=== PATIENT | male | born 1940 | race Caucasian/White ===

== ENCOUNTER 2019-08-23 15:33 | Emergency (ER) | payer MEDICARE, SELFPAY ==
[2019-08-23 15:34] VITALS: BP 155/84; PULSE 82; RESP 16; TEMP 36.3; O2SAT 99; BMI 23.8
--- NOTE | 2019-08-23 15:42 | ED.DCSUM_ITS ---
- ER Visit Summary Date of Service: 08/23/19 Chief Complaint: Dizziness History of Present Illness: The patient is a 78 M who presents with an episode of dizziness that began yesterday while he was watching TV. Patient states he felt like things were spinning. Patient states this lasted approximately 20 m inutes until he went to bed. Patient states he woke up today and his symptoms were gone. Patient denies any tinnitus or hearing changes. Patient denies any ear pain. Patient admits to a subjective fever but when his took his temperature it was normal. Patient denies any headaches. Patient states nothing makes his dizziness better or worse. Physical Examination: Vital signs are stable. Patient is afebrile. Patient is in no acute distress. Oral mucosa is pink and moist. Neck is supple. Trachea is midline. There is no JVD noted. Heart was regular rate and rhythm. Lungs are clear and equal bilaterally. Abdomen is soft. Bowel sounds are normal. There is no tenderness. There is no rebound or guarding noted. Skin is warm dry. Cranial nerves II through XII are intact. There are no focal motor or sensory deficits noted. [id number] and [id number] were intact. Patient ambulated without difficulty. Extremities are intact. There is no calf t enderness or edema. Emergency Department Course and Treatment: Patient was given a prescription for Antivert to take as needed for any further dizziness. I do not feel the patient needs any imaging or lab evaluation since he is asymptomatic at the present time. Patient does not want any of this to be done. Patient was instructed to follow-up with his primary care physician in 1 to 2 weeks. Patient understood and was agreeable with the plan. All questions were answered. Disposition: Discharge home Impression: Vertigo This note was generated with [employer]ue[employer] dictation software. It may contain incorrect words, spelling, and punctuation that were not noted in review of the chart prior to signing ED Disposition - Plan for ED Patient: Disposition: Home or Assisted Living Diagnosis: Vertigo Instructions: VERTIGO, Unspecified Prescriptions: Meclizine HCl [Antivert] 25 mg PO 4X/DAY PRN PRN #20 tab PRN Reason: Dizziness Prescription Printed Referrals: Lizeth Saini PA [Primary Care Provider] - 1-2 Weeks
== END 2019-08-23 16:18 | disposition home or self-care (01) ==
PROVIDERS: Emergency Provider Emergency Medicine; Family Provider Physician Assistant; PCP Physician Assistant
DX: R42 Dizziness and giddiness (principal); M54.9 Dorsalgia, unspecified; M54.2 Cervicalgia; I25.10 Atherosclerotic heart disease of native coronary artery without angina pectoris; Z95.1 Presence of aortocoronary bypass graft; Z79.02 Long term (current) use of antithrombotics/antiplatelets; Z79.899 Other long term (current) drug therapy
CPT/HCPCS: 99283

== ENCOUNTER → 2020-12-10 08:11 | Outpatient (CLI) | payer MEDICARE, SELFPAY ==
--- NOTE | 2020-12-10 08:16 | RAD_ITS ---
STUDY: X-RAY - ESOPHAGUS (BARIUM SWALLOW) WITH FLUOROSCOPY REASON FOR EXAM: Male, 80 years old. DYSPHAGIA -- 11.15 mGy -- 14 IMAGES TECHNIQUE: 14 view(s) of the esophagus were obtained following swallowing of barium. FLUOROSCOPY TIME (if supplied): (28 seconds) minutes/seconds COMPARISON: None. FINDINGS: There is no demonstrated esophageal foreign body. There is no demonstrated stricture or mucosal abnormality. Normal gastroesophageal junction, without a demonstrated hiatal hernia. The patient ingested a 12 mm tablet of barium without any difficulty. Normal visualized aortic arch and descending thoracic aorta. Normal visualized pulmonary parenchyma. Normal visualized osseous structures of the thorax. RAD/Esophagus Dual Contrast IMPRESSION: Normal plain film x-ray examination (barium swallow) of the esophagus. Electronically Signed: Juan Valdivia MD at 11:13 EDT , Service support ,
== END ==
PROVIDERS: PCP Physician Assistant; Referring Provider Nurse Practitioner Adult Health; Visit Provider Nurse Practitioner Adult Health
DX: R13.10 Dysphagia, unspecified (principal)
CPT/HCPCS: 74221

== ENCOUNTER 2021-06-25 13:35 | Inpatient (IN) | payer MEDICARE, SELFPAY ==
[2021-06-25] VITALS (16 sets, daily range): BP systolic 133–171; BP diastolic 69–83; PULSE 56–85; RESP 14–20; TEMP 36.1–36.7; O2SAT 95–99; BMI 24.3; BMI 24.2
--- NOTE | 2021-06-25 14:25 | CT_ITS ---
EXAM: CT ANGIOGRAPHY HEAD AND NECK WITH INTRAVENOUS CONTRAST CLINICAL INDICATION: Neuro deficit, acute, stroke suspected TECHNIQUE: [facility] [place]/head and neck CT angiography protocol performed with intravenous contrast. This CT exam was performed using one or more of the following dose reduction techniques: automated exposure control, adjustment of the mA and/or kV according to patient size, and/or use of iterative reconstruction technique. This report was created using [employer] report generation technology. 3D and MIP reconstructed images were created and reviewed. Coronal and sagittal reformatted images were created and reviewed. CONTRAST: 100mL [id number] COMPARISON: None. FINDINGS: HEAD: RIGHT ANTERIOR CEREBRAL ARTERY: Unremarkable. No significant stenosis at the visualized segments. Anterior communicating artery is present. No aneurysm. RIGHT MIDDLE CEREBRAL ARTERY: Unremarkable. No significant stenosis at the visualized segments. No aneurysm. RIGHT POSTERIOR CEREBRAL ARTERY: Unremarkable. No occlusion or significant stenosis. No aneurysm. LEFT ANTERIOR CEREBRAL ARTERY: Unremarkable. No significant stenosis at the visualized segments. No aneurysm. LEFT MIDDLE CEREBRAL ARTERY: Unremarkable. No significant stenosis at the visualized segments. No aneurysm. LEFT POSTERIOR CEREBRAL ARTERY: origin. No occlusion or significant stenosis. No aneurysm. BASILAR ARTERY: Unremarkable. No significant stenosis. No aneurysm. GREAT VESSELS OF AORTIC ARCH: Atherosclerosis without significant stenosis. Normal anatomy, patent. OTHER VASCULATURE: No vascular malformation. NECK: RIGHT COMMON CAROTID ARTERY: Unremarkable. No significant stenosis. No dissection or occlusion. RIGHT INTERNAL CAROTID ARTERY: Calcific atherosclerosis. 40% stenosis. No dissection or occlusion. RIGHT EXTERNAL CAROTID ARTERY: Atherosclerosis with moderate stenosis. No occlusion. RIGHT VERTEBRAL ARTERY: Unremarkable. No significant stenosis. No dissection or occlusion. LEFT COMMON CAROTID ARTERY: Unremarkable. No significant stenosis. No dissection or occlusion. LEFT INTERNAL CAROTID ARTERY: Calcific atherosclerosis. 55% stenosis. No dissection or occlusion. LEFT EXTERNAL CAROTID ARTERY: Atherosclerosis with moderate stenosis. No occlusion. LEFT VERTEBRAL ARTERY: Unremarkable. No significant stenosis. No dissection or occlusion. LUNG APICES: Unremarkable as visualized. SOFT TISSUES: Right maxillary sinus mucosal retention cyst. OTHER FINDINGS: Degenerative changes of the cervical spine at multiple levels causing foraminal stenosis. CAROTID STENOSIS REFERENCE USING NASCET CRITERIA: % ICA stenosis = (1 - narrowest ICA diameter/diameter of distal cervical ICA) x 100. Mild - <50% stenosis. Moderate - 50-69% stenosis. Severe - 70-94% stenosis. Near occlusion - 95-99% stenosis. Occluded - 100% stenosis. IMPRESSION: No acute findings in the arteries of the head and neck. EXAM: CT HEAD WITHOUT INTRAVENOUS CONTRAST CLINICAL INDICATION: Neuro deficit, acute, stroke suspected TECHNIQUE: Multiple axial images were obtained of the head without intravenous contrast. This CT exam was performed using one or more of the following dose reduction techniques: automated exposure control, adjustment of the mA and/or kV according to patient size, and/or use of iterative reconstruction technique. This report was created using [employer] report [employer] technology. COMPARISON: None. FINDINGS: BRAIN AND EXTRA-AXIAL SPACES: Central parenchymal volume loss. White matter changes that are nonspecific but most commonly associated with chronic small vessel ischemic disease. No intra- or extra-axial hemorrhage. No intracranial mass or mass effect. Posterior fossa structures are unremarkable. Ventricles are appropriate for age. No hydrocephalus. Basal cisterns are patent. BONES/JOINTS: Unremarkable. No discrete lytic or blastic abnormalities. SINUSES: Unremarkable as visualized. Clear. MASTOID AIR CELLS: Unremarkable. Clear. ORBITS: Visualized globes, extraocular muscles, optic nerves and retrobulbar fat appear unremarkable. CT/STROKE CTA Head AND Neck W/Con IMPRESSION: No acute findings in the head/brain. N.B. : The above Results were Read Back by Mike Vargas MD (Brooks) to Reed Turner and understanding confirmed on 06/25/2021 16:13:43 (ET). Electronically Signed: Mike Vargas MD (Brooks) at 16:21 EDT , Service support ,
--- NOTE | 2021-06-25 14:25 | EKG12_ITS ---
Test Reason : WEAKNESS Blood Pressure : / mmHG Vent. Rate : 067 BPM Atrial Rate : 067 BPM P-R Int : 164 ms QRS Dur : 088 ms QT Int : 398 ms P-R-T Axes : 040 -16 005 degrees QTc Int : 420 ms Normal sinus rhythm Poor R wave progression Confirmed by CLEVE MEZA, JOHNNIE ([id number]), society editor ANAY ARANA ([id number]) on 06/27/2021 8:50:04 AM Referred By: MILO Confirmed By:JOHNNIE POON MD
--- NOTE | 2021-06-25 14:25 | RAD_ITS ---
STUDY: X-RAY CHEST REASON FOR EXAM: Male, 80 years old. day 11 of Covid symptoms. tested + last or thursday. Pt is concerned for ongoing weakness and diarrhea. TECHNIQUE: Single AP portable view of the chest. COMPARISON: Jun 04 2017 12:23pm FINDINGS: EKG leads project over the chest. Minimal scarring in the left lung base. No airspace consolidation. There is no demonstrated pleural abnormality. Normal size heart. Sternal wires and mediastinal surgical clips compatible with prior CABG. Normal mediastinum and rita. Normal visualized pulmonary arteries. Normal visualized aortic arch and descending thoracic aorta. Normal visualized thoracic spine. Normal visualized ribs, clavicles, and shoulders. There is no demonstrated abnormality of the visualized soft tissue structures of the upper abdomen. RAD/Chest 1 View IMPRESSION: Nonacute portable x-ray examination of the chest. Electronically Signed: Mike Vargas MD (Brooks) at 15:12 EDT , Service support ,
--- NOTE | 2021-06-25 14:27 | EDS_ITS ---
HPI History of Present Illness Chief Complaint: Weakness Detail of Chief Complaint: Dizziness unable to walk without assistance. Informant: patient and spouse/S.O. Onset/Context/Timing Onset: Today Timing: Continuous Quality and Location: Positive for Right Leg Parasthesia and Right Leg Weakness Current Severity: Moderate Maximum Severity: Moderate Associated Symptoms Associated Symptoms: Negative for Headache, Nausea, Vomiting and Chest Pain Narrative Narrative: 80-year-old male history of hypertension prior coronary disease and CABG, CT and prior vertigo. No history of stroke. States that ever since he has been up this morning he has been unable to walk without assistance. He is off balance. States his head feels funny. He denies any fall or head trauma. states is unable to ambulate without her helping him significantly. Says his right leg feels weak and numb. Said he went to bed last night and he felt fine around 9:00. Prior similar symptoms: No Recent Illness/Hospitalization: No PFSH PFSH Medical History Hypertension Myocardial infarct Vertigo Home Medications hydrocodone-acetaminophen 1 - 2 tab PO Q4H PRN PRN #8 tablet 06/04/17 [Rx Last Taken Unknown] clopidogrel 75 mg PO DAILY 08/23/19 [History Last Taken Unknown] gabapentin 300 mg PO DAILY 08/23/19 [History Last Taken Unknown] gabapentin 700 mg PO DAILY 08/23/19 [History Last Taken Unknown] isosorbide mononitrate 30 mg PO DAILY 08/23/19 [History Last Taken Unknown] meclizine 25 mg PO 4X/DAY PRN PRN #20 tab 08/23/19 [Rx Last Taken Unknown] metoprolol succinate 25 mg PO DAILY 08/23/19 [History Last Taken Unknown] simvastatin 20 mg PO DAILY 08/23/19 [History Last Taken Unknown] sucralfate 1 gm PO DAILY 08/23/19 [History Last Taken Unknown] Allergy/AdvReac Type Severity Reaction Status Date / Time Sulfa (Sulfonamide Allergy Unknown Verified 06/25/21 13:38 Antibiotics) Surgical History H/O right heart catheterization S/P CABG x 3 Stented coronary artery Social History Smoking Status: Former smoker ROS ROS ED ROS Narrative Denies recent illness other than some mild diarrhea. Review of Systems ROS Unobtainable: Denies due to encephalopathy Constitutional Constitutional ED: Denies chills or fever(s) Eyes Eyes: Denies change in vision ENT ENT ED: Denies ear pain Cardiovascular Cardiovascular: Denies chest pain Respiratory/Chest Respiratory/Chest: Denies cough or dyspnea Gastrointestinal Gastrointestinal: Reports diarrhea; Denies abdominal pain, nausea or vomiting Genitourinary Genitourinary ED: Denies dysuria Musculoskeletal Musculoskeletal: Denies myalgias Integumentary Denies rash Neurologic Neurologic: Reports paresthesias and weakness; Denies headache(s) Psychiatric Psychiatric: Denies depression Endocrine Endocrinology: Denies polyuria Hematologic/Lymphatic Hematologic/Lymphatic: Denies easy bruising Allergic/Immunologic Allergic/Immunologic ED: Denies urticaria EXAM Physical Exam Narrative Exam Narrative: 78-year-old male no acute distress vital signs stable afebrile. H EENT exam unremarkable. Moist extremities. Neck nontender no lymphadenopathy. Lungs clear to auscultation bilaterally. Heart regular rate and rhythm rate about 80 no murmur. Abdomen soft nontender normal bowel sounds no peritoneal signs. Extremities moves all 4 right lower extremity seems weaker than the left. He has trouble lifting off the bed but he can. His dorsi and pl elvira flexion is weaker than the left. He states that is new. Is equal symmetrical confidential secretary strength. Neurologically awake alert oriented. He has weakness in his right leg and decreased sensation. NIH score is 2. Const Vital Signs: 06/25/21 13:36 06/25/21 14:13 06/25/21 14:42 Temperature 96.9 F L Temperature Source Temporal Pulse Rate 85 81 Respiratory Rate 16 18 Respiratory Effort Normal Respiratory Pattern Normal Blood Pressure 157/83 H 138/77 H Blood Pressure Mean 107 97 Pulse Ox 99 98 96 Oxygen Delivery Method Room Air Room Air Room Air 06/25/21 14:53 06/25/21 14:55 Temperature Temperature Source Pulse Rate 68 68 Respiratory Rate 20 H 18 Respiratory Effort Respiratory Pattern Blood Pressure 139/76 H 146/72 H Blood Pressure Mean 97 96 Pulse Ox 98 96 Oxygen Delivery Method Room Air Room Air Positive well nourished and well developed; Negative for obese, cachectic, contractures or unkempt General Appearance ED: well developed and NAD; Negative for unkempt, cachectic or contractures Nutritional Appearance: Negative for cachectic or obese HEENT Reports moist mucous membranes atraumatic; Negative for trauma Eyes PERRL and EOMs intact bilaterally General Eye ED: Negative for pale conjunctiva or scleral icterus Neck no lymphadenopathy, supple and no JVD General: Negative for tenderness Chest Wall inspection of chest normal and palpation of chest normal Resp normal respiratory effort and clear to auscultation bilaterally Auscultation: Negative for rales, rhonchi, wheezes or diminished lung sounds Cardio no murmurs Rate: regular rate Rhythm: regular rhythm Heart Sounds: S1 normal and S2 normal GI normal to inspection, nondistended, normoactive bowel sounds, soft to palpation, non-tender, non-distended and no masses Inspection: Negative for abdominal distention Auscultation: normoactive bowel sounds Palpation: Negative for tender, guarding or rebound tenderness present Back/Spine no CVA tenderness Extremity Extremity Narrative: Weakness right leg. General Extremety ED: Negative for deformity or tenderness General Extremity: Negative for deformity Neuro oriented x3 Neuro Narrative: Right leg weakness. Subjective decreased sensation. NIH score of 2. Sensorium / Orientation: alert, oriented to person, oriented to place and oriented to time; Negative for orientation impaired, confused, lethargic or stuporous Speech: speech normal Gait (Neuro): Negative for normal gait Motor Exam: Negative for strength 5/5 throughout Psych mental status grossly normal Appearance: Negative for unkempt Mood & Affect: Negative for depressed or tearful Skin Lesions: no lesions Rashes: no rashes STROKE Vital Signs/Narrative: Vital Signs Temp Pulse Resp BP Pulse Ox 06/25/21 14:55 68 18 146/72 H 96 06/25/21 14:53 68 20 H 139/76 H 98 06/25/21 14:42 96 06/25/21 14:13 81 18 138/77 H 98 06/25/21 13:36 96.9 F L 85 16 157/83 H 99 MDM MDM MDM Narrative Medical decision making narrative: 80-year-old male off balance awoke with the symptoms this morning. He is at least 6-1/2 hours into this if not significantly longer. He says his right leg feels weak and numb. He will undergo stroke work-up. Repeat exam at 4:03 PM no change. Patient still has weakness in his right lower extremity. Nurses try to get him up walking he was too dizzy and was unable to do so. I did perform a Hallpike maneuver which would not change his symptoms. I do not think this is vertigo and that also would not explain his right leg weakness. Awaiting the CAT scan results and then I will get him admitted to the hospitalist. Lab Data Attestation: I reviewed the patient's lab results. Lab results narrative: CBC shows a white count 3.7. Hemoglobin 13. Platelet count is low at 74. PT/INR 13 and one PTT 29. Electrolytes show a gap of 3 BUN 1 3 creatinine 1.2. Troponin normal at 36. Glucose of 90. Labs: Laboratory Results - last 24 hr 06/25/21 06/25/21 06/25/21 14:21 14:21 14:50 WBC 3.7 L RBC 4.70 Hgb 13.7 Hct 42.3 MCV 90.0 MCH 29.1 MCHC 32.4 RDW Std Deviation 46.9 H RDW Coeff of Jaqueline 14.2 Plt Count 74 L MPV 12.4 H Immature Gran % (Auto) 0.800 Neut % (Auto) 56.3 Lymph % (Auto) 32.0 [place] % (Auto) 8.7 Eos % (Auto) 1.4 Baso % (Auto) 0.8 Absolute Neuts (auto) 2.1 Absolute Lymphs (auto) 1.18 Nucleated RBC % 0 Differential Comment SCANNED PT 13.0 INR 1.0 APTT 29.2 Sodium 140 Potassium 4.1 Chloride 109 H Carbon Dioxide 28.0 Anion Gap 3 L BUN 13 Creatinine 1.29 Estim Creat Clear Calc 42.71 Est GFR (MDRD) Af Amer 68 Est GFR (MDRD) Non-Af 57 L BUN/Creatinine Ratio 10.1 Glucose 90 Calcium 9.1 Troponin I High Sens 36 POC Glucose 06/25/21 14:50 WBC RBC Hgb Hct MCV MCH MCHC RDW Std Deviation RDW Coeff of Jaqueline Plt Count MPV Immature Gran % (Auto) Neut % (Auto) Lymph % (Auto) [place] % (Auto) Eos % (Auto) Baso % (Auto) Absolute Neuts (auto) Absolute Lymphs (auto) Nucleated RBC % Differential Comment PT INR APTT Sodium Potassium Chloride Carbon Dioxide Anion Gap BUN Creatinine Estim Creat Clear Calc Est GFR (MDRD) Af Amer Est GFR (MDRD) Non-Af BUN/Creatinine Ratio Glucose Calcium Troponin I High Sens POC Glucose 86 Radiography Diagnostic Testing: Clinical Impression(s) from Imaging Studies Chest X-Ray 06/25/21 14:25 IMPRESSION: Nonacute portable x-ray examination of the chest. Electronically Signed: Mike Vargas MD (Brooks) at 15:12 EDT , Service support , Chest x-ray portable one view interpreted by myself and radiologist shows no acute abnormality. Chronic changes. Normal cardiac silhouette mediastinum. CT of the brain without contrast showed no acute abnormality. CTA of the head and neck read by the radiologist showed no acute abnormality. Chronic left internal carotid artery stenosis of about 55%. Radiologist did call me with these readings. I have reviewed the films myself. Stroke Documentation Questions Stroke Team Activated: No Reviewed Inclusion/Exclusion criteria: Yes Was Patient considered for Endovascular Intervention?: No IV Alteplase (t-PA) Administered: No No contraindications for IV Alteplase (t-PA) administration.: No Alteplase (t-PA) risks, benefits, alternative discussed: No Not given: Patient refusal: No Discharge Plan Dx/Rx/DC Orders Clinical Impression: Acute CVA (cerebrovascular accident), Unable to ambulate, Right leg weakness, History of chronic hypertension Disposition Disposition: Acute Care Hospital [facility]
--- NOTE | 2021-06-25 14:41 | NURSING ---
per dr. hernandez no stroke team.
[2021-06-25] MEDS: 0.9% Normal Saline 1,000 ML 999 ML IV (14:53)
[2021-06-25 15:01] LABS: Bedside Glucose 86 mg/dL (70-110)
[2021-06-25 15:03] LABS: Absolute Lymphocyte Count 1.18 X10^3/uL (0.83-4.51); Absolute Neutrophil Count 2.1 X10^3/uL (2.0-7.7); Basophil# 0.03 X10^3/uL; Basophil% 0.8 % (0-1); Eosinophil# 0.05 X10^3/uL; Eosinophils% 1.4 % (0-5); Hematocrit 42.3 % (40-54); Hemoglobin 13.7 g/dL (13.0-16.5); Lymphocyte # 1.18 X10^3/ul (0.83-4.51); Mean Corp Hgb Conc 32.4 g/dL (32-36); Mean Corpuscular Hgb 29.1 pg (27.0-32.0); Mean Platelet Vol. 12.4 fl (6.2-12.0); Monocyte# 0.32 X10^3/uL; Monocyte% 8.7 % (0-10); NRBC Flagged by Analyzer 0 % (0-5); Neutrophil # 2.08 X10^3/uL (2.7-7.7); Neutrophil % 56.3 % (47-70); POSITIVE COUNT YES; Platelet Count 74 K/mm3 (150-450); RBC Distribution Width CV 14.2 % (11.6-14.6); RBC Distribution Width SD 46.9 fl (35.1-43.9); White Blood Count 3.7 K/mm3 (4.4-11.0)
[2021-06-25 15:04] LABS: Differential Indicated SCAN CRITERIA MET
[2021-06-25 15:09] LABS: Partial Thromboplast Time 29.2 Seconds (24.1-36.2)
[2021-06-25 15:14] LABS: Anion Gap 3 (5-15); BUN 13 mg/dL (7-18); BUN/Creat Ratio 10.1 RATIO (10-20); Calcium,Total 9.1 mg/dL (8.5-10.1); Chloride 109 mmol/L (98-107); Creatinine, Serum 1.29 mg/dL (0.70-1.30); EST Glomerular Filtration Rate 57 mL/min (>60); Est Glom Filt Rate - Afr Amer 68 mL/min (>60); Estimated Creatinine Clearance 42.71 ml/min; Glucose 90 mg/dL (74-106); Potassium 4.1 mmol/L (3.5-5.1); Sodium Level 140 mmol/L (136-145); Troponin-I HS 36 pg/mL (3.0-78.0)
[2021-06-25 15:50] LABS: Differential Comment SCANNED
--- NOTE | 2021-06-25 16:37 | PCM.HP.STD ---
HPI - General General Date of Admission: 06/25/21 Date of Service: 06/25/21 Chief Complaint: Awoke with dizziness, focal RLE weakness and paresthesias. HPI Narrative The patient is an 80 y/o M w/ PMHx: CAD s/p CABG x 3 and PCI, HTN, HLD, Former Tobacco use, GERD who presents to the [facility] ED on 06/25/21 with history of awakening on day of presentation in the AM with profound dizziness and upon attempts to stand severe RLE debility, unable to stand with last known well the evening prior at bedtime. was concerned about a potential stroke and eventually was able to bring the in for evaluation. Patient also reports RLE paresthesias in addition. Work-up in the ED included T 96.9, heart rate 85, initial BP 157/83, respiratory rate 18, 99% on room air, CBC with WBC 3.7, hemoglobin 13.7, platelet 74 with no comparison, unremarkable coags, BMP with quad 109 otherwise not marked appearing, troponin 36, EKG with sinus rhythm with no acute evidence of ischemia, chest x-ray with no acute cardiopulmonary findings, CT head with no acute intracranial findings, CTA head neck with only noted 55% stenosis of the left ICA. In the ED patient ministered IV fluids. [facility] Medical History (Updated 06/25/21 @ 20:[address] Trinh Thompson MD) CAD (coronary artery disease) Former tobacco use GERD (gastroesophageal reflux disease) HLD (hyperlipidemia) Hypertension Myocardial infarct Vertigo Home Medications clopidogrel 75 mg PO DAILY 08/23/19 [History Last Taken 06/25/21] isosorbide mononitrate 15 mg PO DAILY 08/23/19 [History Last Taken 06/25/21] metoprolol succinate 25 mg PO DAILY 08/23/19 [History Last Taken 06/25/21] cyclobenzaprine 5 mg PO QHS 06/25/21 [History Last Taken 06/24/21] gabapentin 400 mg PO BID 06/25/21 [History Last Taken 06/25/21] pantoprazole 20 mg PO BID 06/25/21 [History Last Taken 06/25/21] simvastatin 40 mg PO DAILY 06/25/21 [History Last Taken 06/24/21] trazodone 50 mg PO QHS 06/25/21 [History Last Taken 06/24/21] Allergy/AdvReac Type Severity Reaction Status Date / Time Sulfa (Sulfonamide Allergy Unknown Verified 06/25/21 13:38 Antibiotics) Family History (Updated 06/25/21 @ 21:[address] Trinh Thompson MD) Mother Heart disease Father Heart disease Surgical History (Updated 06/25/21 @ 20:[address] Trinh Thompson MD) H/O right heart catheterization S/p bilateral carpal tunnel release S/P bilateral cataract extraction S/P bilateral foot surgery S/P CABG x 3 S/P tonsillectomy and adenoidectomy Status post arthroscopic knee surgery Stented coronary artery Social History (Updated 06/25/21 @ 21:[address] Trinh Thompson MD) household members: spouse Smoking Status: Former smoker how long ago did patient quit smoking: Quit when he was 44 y/o, 1/2 ppd since 10 years old. alcohol intake: never substance use type: does not use ROS ROS Narrative Admission Review of Systems: CONSTITUTIONAL: No weight loss, fever, chills, weakness or fatigue. HEENT: + Dizziness. Eyes: No visual loss, blurred vision, double vision or yellow sclerae. Ears, Nose, Throat: No hearing loss, sneezing, congestion, runny nose or sore throat. SKIN: No rash or itching, lesions, wounds. CARDIOVASCULAR: No chest pain, chest pressure or chest discomfort, palpitations, edema, orthopnea, syncopal events. RESPIRATORY: No shortness of breath, cough or sputum, wheezing, hemoptysis. GASTROINTESTINAL: No anorexia, nausea, vomiting or diarrhea, abdominal pain, melena, BRBPR. GENITOURINARY: No dysuria, frequency, urgency or retention. NEUROLOGICAL: + Dizziness, focal right lower extremity weakness with paresthesias, imbalance. No headache, syncope, paralysis,change in bowel or bladder control, seizure. MUSCULOSKELETAL: + muscle, back pain, joint pain or stiffness. HEMATOLOGIC: No anemia, bleeding or bruising. LYMPHATICS: No enlarged nodes. No history of splenectomy. PSYCHIATRIC: No history of depression or anxiety. ENDOCRINOLOGIC: No reports of sweating, cold or heat intolerance. No polyuria or polydipsia. ALLERGIES: No history of asthma, hives, eczema or rhinitis. Vital Signs Vital Signs Vital Signs: 06/25/21 13:36 06/25/21 14:13 06/25/21 14:42 Temperature 96.9 F L Temperature Source Temporal Pulse Rate 85 81 Respiratory Rate 16 18 Respiratory Effort Normal Respiratory Pattern Normal Blood Pressure 157/83 H 138/77 H Blood Pressure Mean 107 97 Pulse Ox 99 98 96 Oxygen Delivery Method Room Air Room Air Room Air 06/25/21 14:53 06/25/21 14:55 06/25/21 15:30 Temperature Temperature Source Pulse Rate 68 68 65 Respiratory Rate 20 H 18 16 Respiratory Effort Respiratory Pattern Blood Pressure 139/76 H 146/72 H 133/72 H Blood Pressure Mean 97 96 92 Pulse Ox 98 96 98 Oxygen Delivery Method Room Air Room Air Room Air Weight Weight: 160 lb Body Mass Index (BMI) 24.3 Physical Exam Narrative Physical Examination: General: Awake, alert, oriented x 3, hard of hearing, remains cooperative, seated upright in the ED bed, NAD. Skin: Normal color, normal turgor, no icterus, no cyanosis. HEENT: AT/NC, EOMI, PERRLA, mildly dry MM, no carotid bruits or JVD noted. Lungs: Diminished, greater bases, appropriate effort, no rales, ronchi or wheezing. Heart: Regular rate and rhythm; no gallop, rub audible. Abdomen: Soft, NTTP, ND, normal BS, no HSM. Extremities: No cyanosis, clubbing, or edema. Neurological: Patient awake, alert, oriented as noted, cognitive function appears and per baseline intact; pupils equally reactive to light and accommodation, cranial nerves II-XII grossly normal, moving bilateral upper extremities and left lower extremity, unable to move right lower extremity, falls flaccid to the bed with evaluation, has nearly myoclonic pull, sensation decreased RLE, unable to stand without assist, BL UE mild dysmetria however improves with distraction, unable to perform HTN RLE, L intact, equivocal babinski. Psychiatric: Affect appears normal, no acute evidence of depressive or anxiety feelings. Results Lab / Micro Data Result Diagrams: 06/25/21 14:21 06/25/21 14:21 Labs: Laboratory Results - last 24 hr 06/25/21 14:21: WBC 3.7 L, RBC 4.70, Hgb 13.7, Hct 42.3, MCV 90.0, MCH 29.1, MCHC 32.4, RDW Std Deviation 46.9 H, RDW Coeff of Jaqueline 14.2, Plt Count 74 L, MPV 12.4 H, Immature Gran % (Auto) 0.800, Neut % (Auto) 56.3, Lymph % (Auto) 32.0, [place] % (Auto) 8.7, Eos % (Auto) 1.4, Baso % (Auto) 0.8, Absolute Neuts (auto) 2.1, Absolute Lymphs (auto) 1.18, Nucleated RBC % 0, Differential Comment SCANNED 06/25/21 14:21: Sodium 140, Potassium 4.1, Chloride 109 H, Carbon Dioxide 28.0, Anion Gap 3 L, BUN 13, Creatinine 1.29, Estim Creat Clear Calc 42.71, Est GFR (MDRD) Af Amer 68, Est GFR (MDRD) Non-Af 57 L, BUN/Creatinine Ratio 10.1, Glucose 90, Calcium 9.1, Troponin I High Sens 36 06/25/21 14:50: PT 13.0, INR 1.0, APTT 29.2 06/25/21 14:50: POC Glucose 86 Radiology Impression Chest X-Ray 06/25/21 14:25 IMPRESSION: Nonacute portable x-ray examination of the chest. Electronically Signed: Mike Vargas MD (Brooks) at 15:12 EDT , Service support , Head/Neck CTA 06/25/21 14:25 IMPRESSION: No acute findings in the head/brain. N.B. : The above Results were Read Back by Mike Vargas MD (Brooks) to Reed Turner and understanding confirmed on 06/25/2021 16:13:43 (ET). Electronically Signed: Mike Vargas MD (Brooks) at 16:21 EDT , Service support , ADDENDUM: 06/25/21 1628 IMPRESSION: No acute findings in the head/brain. N.B. : The above Results were Read Back by Mike Vargas MD (Brooks) to Reed Turner and understanding confirmed on 06/25/2021 16:13:43 (ET). Electronically Signed: Mike Vargas MD (Brooks) at 16:21 EDT , Service support , Assessment & Plan Assessment/Plan (1) Acute CVA (cerebrovascular accident): PLAN: The patient is an 80 y/o M w/ PMHx: CAD s/p CABG x 3 and PCI, HTN, HLD, Former Tobacco use, GERD who presents to the [facility] ED on 06/25/21 with history of awakening on day of presentation in the AM with profound dizziness and upon attempts to stand severe RLE debility, unable to stand with last known well the evening prior at bedtime. 1. Dizziness, RLE focal weakness concerning for CVA: Will admit to PCU, will obtain MRI Brain, ECHO, PT/OT/Speech/Nutrition evaluation per protocol. Will plan to consult Neurology for evaluation once further stroke work-up is obtained. Given L ICA reported 55% stenosis will obtain follow-up carotid US. Will allow permissive HTN, maintain on asa and plavix, continue home statin w/ AM FLP, fall precautions. Mag, TSH, HgbA1c, FLP. 2. Thrombocytopenia, unclear if acute or chronic: Admission platelets 74, will cautiously continue aspirin and Plavix given acute presentation as noted #1, if any decrease will need to rethink dual antiplatelet usage for #1, additionally will maintain on Lovenox for chemoprophylaxis but hold if any decrease on a.m. repeat labs. 3. CAD: Status post CABG x3 and PCI, will continue aspirin, Plavix, holding metoprolol, continue statin therapy as noted. 4. Hypertension: We will maintain on permissive hypertension given acute presentation as noted #1. 5. Hyperlipidemia: Continue home statin regimen. AM FLP. 6. Tobacco Abuse: Encouraged cessation, inpatient consultation per RT, NR if desired. 7. GERD: We will maintain on PPI. 8. DVT prophylaxis: SCDs, Lovenox cautiously given #2. Low threshold to hold if decreased level in AM. 9. CODE status: Patient does not have any healthcare power of deputy attorney general nor living will. Discussed CODE status at length including difference between FULL code, DNR-CCA and DNR-CC status. Following discussions about the differences in these status, requested Full Code status. Advanced Care Planning Face to Face Time: 16 minutes. Charges/Coding Visit Charges Inpatient E&M: 18961 Init Hosp L3 Procedures Hospitalists Procedures: 51737 Advncd Care Plan 30 Min
--- NOTE | 2021-06-25 17:58 | ECHOD_ITS ---
Reason For Study: CVA Procedure This was a 2D Doppler, Color Flow transthoracic echocardiogram. Bubble study performed. Exam performed portable in patient room. Left Ventricle Normal LV size. Apical false tendon noted. Left ventricular systolic function is normal. The estimated ejection fraction is 65 %. Transmitral diastolic flow velocities suggest moderate (stage 2) diastolic dysfunction (pseudonormal pattern). No regional wall motion abnormalities noted. Right Ventricle Normal RV size. Normal systolic function. Atria The left atrium is moderately enlarged. Normal right atrium. No doppler evidence for ASD. Bubble contrast study negative for right to left interatrial shunt. Mitral Valve There is mild mitral annular calcification. Extension of the mitral annular calcification onto the base of the posterior mitral valve leaflet. Mild (1+) mitral valve insufficiency. Tricuspid Valve Normal tricuspid valve. Mild tricuspid valve insufficiency. Right ventricular systolic pressure estimated to be 36 mmHg. Aortic Valve Trisinus/trileaflet aortic valve. Mild focal aortic valve calcification. Trivial aortic valve insufficiency. Pulmonic Valve The pulmonic valve is not well visualized. Trivial pulmonic valve insufficiency. Great Vessels The aortic root is not well visualized. Pericardium/Pleural No pericardial effusion. Medication Performed a rapid injection of agitated mix of 9 cc saline and 1cc air to assess for atrial septal defect. MMode/2D Measurements & Calculations LVIDd: 4.1 cm IVSd: 1.4 cm LA dimension: 4.8 cm LVIDs: 2.6 cm LVPWd: 1.2 cm FS: 36.9 % LAV(MOD-bp): 66.6 ml LA A4 area: 22.3 cm2 RA A4 area: 15.7 cm2 LAV(MOD-bp) Indexed: 36.4 ml/m2 LAV(MOD-sp2): 56.3 ml LAV(MOD-sp4): 70.4 ml Time Measurements MV dec time: 0.18 sec Doppler Measurements & Calculations MV E max tariq: 115.9 cm/sec Lat Peak E' Tariq: 7.4 cm/sec Med Peak E' Tariq: 5.4 cm/sec MV A max tariq: 92.9 cm/sec E/E' lat: 15.8 E/E' med: 21.6 MV E/A: 1.2 MV V2 max: 115.2 cm/sec MV P1/2t max tariq: 115.2 cm/sec Ao V2 max: 136.5 cm/sec MV max P.3 mmHg MV P1/2t: 92.0 msec Ao max P.5 mmHg MV V2 mean: 63.9 cm/sec MV dec slope: 366.5 cm/sec2 MV mean P.9 mmHg MV V2 VTI: 33.5 cm MVA(P1/2t): 2.4 cm2 LV V1 max: 100.8 cm/sec PA V2 max: 101.3 cm/sec TR max tariq: 288.5 cm/sec LV V1 max P.1 mmHg TR max P.3 mmHg ECHO/Echo Complete Interpretation Summary Left ventricular systolic function is normal. The estimated ejection fraction is 65 %. Apical false tendon noted. The left atrium is moderately enlarged. There is mild mitral annular calcification. Extension of the mitral annular calcification onto the base of the posterior mi tral valve leaflet. Mild (1+) mitral valve insufficiency. Mild tricuspid valve insufficiency. Mild focal aortic valve calcification. Trivial aortic valve insufficiency. Trivial pulmonic valve insufficiency. Right ventricular systolic pressure estimated to be 36 mmHg. Transmitral diastolic flow velocities suggest diastolic dysfunction (pseudonorm al pattern). Bubble contrast study negative for right to left interatrial shunt. Ordering Physician: Trinh Thompson Referring Physician: Lizeth Saini Performed By: Leonidas Davis RCS
[2021-06-25] MEDS: 0.9% Normal Saline 1,000 ML 100 ML IV (18:42)
[2021-06-25 19:34] LABS: Magnesium 1.9 mg/dL (1.6-2.6); Troponin-I HS 46 pg/mL (3.0-78.0)
[2021-06-25] MEDS: Gabapentin 400 MG Capsule PO (21:29)
[2021-06-25] MEDS: traZODone 50 MG Tablet PO (21:29)
[2021-06-25] MEDS: Pantoprazole Sodium 20 MG Tablet PO (21:29)
[2021-06-26] VITALS (7 sets, daily range): BP systolic 126–157; BP diastolic 68–80; PULSE 57–74; RESP 16–18; TEMP 36.5–37.1; O2SAT 96–98
[2021-06-26 07:55] LABS: Absolute Lymphocyte Count 0.96 X10^3/uL (0.83-4.51); Absolute Neutrophil Count 1.9 X10^3/uL (2.0-7.7); Basophil# 0.02 X10^3/uL; Basophil% 0.6 % (0-1); Eosinophil# 0.06 X10^3/uL; Eosinophils% 1.9 % (0-5); Hematocrit 40.1 % (40-54); Hemoglobin 13.2 g/dL (13.0-16.5); Lymphocyte # 0.96 X10^3/ul (0.83-4.51); Lymphocyte % 30.8 % (19-41); Mean Corp Hgb Conc 32.9 g/dL (32-36); Mean Corpuscular Hgb 29.3 pg (27.0-32.0); Mean Corpuscular Volume 88.9 fL (80-94); Mean Platelet Vol. 12.6 fl (6.2-12.0); Monocyte# 0.18 X10^3/uL; Monocyte% 5.8 % (0-10); NRBC Flagged by Analyzer 0 % (0-5); Neutrophil # 1.89 X10^3/uL (2.7-7.7); Neutrophil % 60.6 % (47-70); POSITIVE COUNT YES; Platelet Count 64 K/mm3 (150-450); RBC Distribution Width CV 14.2 % (11.6-14.6); RBC Distribution Width SD 45.9 fl (35.1-43.9); Red Blood Count 4.51 M/mm3 (4.6-6.2); White Blood Count 3.1 K/mm3 (4.4-11.0)
[2021-06-26 08:08] LABS: Hemoglobin A1c 5.3 % (3.8-5.6)
[2021-06-26 08:35] LABS: AST(SGOT) 18 U/L (15-37); Alanine Aminotransfer ALT/SGPT 15 U/L (16-61); Albumin, Serum 3.1 g/dL (3.2-5.0); Alkaline Phosphatase 64 U/L (45-117); Anion Gap 6 (5-15); BUN 12 mg/dL (7-18); BUN/Creat Ratio 10.1 RATIO (10-20); Calcium,Total 8.6 mg/dL (8.5-10.1); Chloride 109 mmol/L (98-107); Cholesterol 145 mg/dL (200); Creatinine, Serum 1.19 mg/dL (0.70-1.30); EST Glomerular Filtration Rate 62 mL/min (>60); Est Glom Filt Rate - Afr Amer 75 mL/min (>60); Estimated Creatinine Clearance 44.75 ml/min; Glucose 87 mg/dL (74-106); High Density Lipoprotein 49 mg/dL; Potassium 4.2 mmol/L (3.5-5.1); Protein, Total 6.1 g/dL (6.4-8.2); Sodium Level 141 mmol/L (136-145); Thyroid Stim Hormone (TSH) 1.29 uIU/mL (0.358-3.74); Triglycerides 150 mg/dL; Very Low Density Lipoprotein 30 mg/dL (5-40)
--- NOTE | 2021-06-26 09:00 | MRI_ITS ---
EXAM: MR HEAD WITHOUT INTRAVENOUS CONTRAST : 1940 CLINICAL INDICATION: CVA, rt leg weakness, numbnes, dizzy TECHNIQUE: Multiplanar and multisequence MR images of the brain were obtained without intravenous contrast. This report was created using [email or web address] report generation technology. COMPARISON: CT brain June 25, 2021 FINDINGS: BRAIN AND EXTRA-AXIAL SPACES: Multiple foci of increased T2 signal intensity within the cerebral white matter consistent with chronic microvascular change. No intra- or extra-axial hemorrhage. No evidence of acute infarct. No intracranial mass or mass effect. There is preservation of the neal/white matter interface. Posterior fossa structures are unremarkable. Ventricles are appropriate for age. No hydrocephalus. Basal cisterns are patent. SELLA: Unremarkable. Normal sella turcica, pituitary gland, infundibular stalk, optic chiasm and hypothalamus. AUDITORY SYSTEM: Unremarkable. The internal auditory canals are patent. BONES/JOINTS: Unremarkable. No discrete lytic or blastic abnormalities. SINUSES: 14 mm right maxillary mucus retention cyst is noted. MASTOID AIR CELLS: Unremarkable as visualized. Clear. ORBITS: Unremarkable as visualized. Both globes, extraocular muscles, optic nerves and retrobulbar fat appear unremarkable. VASCULATURE: Unremarkable as visualized. Normal flow voids in the major intracranial circulation. MRI/Brain without Contrast IMPRESSION: 1. No evidence of acute ischemia. 2. Chronic microvascular changes. at 1142 Reported and signed by: Mp Ferro MD Electronically Signed: Mp Ferro MD at 11:41 EDT Tel , Service support ,
[2021-06-26] MEDS: Gabapentin 400 MG Capsule PO (09:02)
[2021-06-26] MEDS: Aspirin 81 MG TAB.CHEW PO (09:02)
[2021-06-26] MEDS: Atorvastatin Calcium 20 MG Tablet PO (09:02)
[2021-06-26] MEDS: Clopidogrel Bisulfate 75 MG Tablet PO (09:02)
[2021-06-26] MEDS: Pantoprazole Sodium 20 MG Tablet PO (09:02)
--- NOTE | 2021-06-26 11:05 | CASEMGMT ---
NITA CARVAJAL assessment: Face to Face with patient for initial transition planning/care coordination assessment. NITA CARVAJAL introduced self and role at [facility], pt voices understanding and consents to assessment. Pt is sitting up in bed in on distress on room air. Pt is A/Ox4 and answers all questions appropriately. Care providers, pharmacy, and demographics verified/updated. Presentation: Weakness/head pressure since waking this am-intermittent diarrhea for last several weeks Admitting dx: Acute CVA PCP: [facility] Specialists: [facility] in [place] Preferred Pharmacy: [facility] Prescription Benefit: [facility] Living Will/HPOA: Pt states no LW/HPOA and declines AD info. LNOK: Elzbieta Rolon, ; Ruthann Hansen, daughter Living Arrangements: Pt states lives with in 1 story duplex with no steps and states no concerns at home. Pt is independent with ADL's. Transportation: Pt states drives self and states no transportation concerns. DME/HHC: Pt states no current DME or need for any further DME. Pt states no hx of HHC or SNF. Pt states no concerns with going home at time of discharge. Pt is retired. Pt states does not smoke cigarettes but does occasionally drink a couple beers. Pt voices no further concerns/needs. CM to follow for any further discharge planning/needs. Advised pt to ask for CM if any further questions/concerns/needs arise, voices understanding. Pt Goal: Home Plan[place] NITA CARVAJAL
--- NOTE | 2021-06-26 11:59 | PCM.DC ---
Discharge Instructions Diet Discharge Diet: No restrictions Activity Discharge Activity: Return to Normal Activity Weight Bearing Status: Weight bearing as tolerated Dressing / Incision Call your doctor if you observe: Fever of 101 or Higher, Numbness or Tingling, Shortness of breath, Dizziness, Chest pain, Increased palpitations (irregular heartbeat) and Calf discomfort Follow Up Care Please Follow Up With: Primary care provider When: Within the next two weeks. Test Results: Test results from this visit will be discussed in further detail at your follow-up appointment, if applicable. Discharge Plan Admission Admit Date/Time: 06/25/21 16:41 Primary Reason for Your Visit: Stroke like symptoms Attending Provider: Artie Palacio Primary Care Provider: Lizeth Saini Discharge Orders/Prescriptions Prescriptions: Continued isosorbide mononitrate 30 MG tablet extended release 24 hr 15 mg PO DAILY RF: 0 clopidogrel 75 MG tablet 75 mg PO DAILY RF: 0 metoprolol succinate 25 MG tablet extended release 24 hr 25 mg PO DAILY RF: 0 trazodone 50 mg tablet 50 mg PO QHS RF: 0 gabapentin 400 mg capsule 400 mg PO BID RF: 0 simvastatin 40 mg tablet 40 mg PO DAILY RF: 0 pantoprazole 20 mg tablet,delayed release (DR/EC) 20 mg PO BID RF: 0 cyclobenzaprine 5 mg tablet 5 mg PO QHS RF: 0 Referrals / Follow Up: Lizeth Saini PA [Primary Care Provider] - Within 2 Weeks (Follow up with PCP for chronic leg numbness. ) Rita Rivera NURSING SUPPORT WORKER, NURSING SUPPORT WORKER-C [Nurse Practitioner] - Within 2 Weeks (Low platelets. ) Disposition Disposition (needs filled in before D/C Order can be placed): Home, Self Care
--- NOTE | 2021-06-26 12:35 | PHA.DC.MR ---
Pharmacy Service has performed discharge medication reconciliation for this patient. The patient's discharge medication list was reviewed for discrepancies and discrepancies were resolved. Home Medications clopidogrel 75 mg PO DAILY 08/23/19 isosorbide mononitrate 15 mg PO DAILY 08/23/19 metoprolol succinate 25 mg PO DAILY 08/23/19 cyclobenzaprine 5 mg PO QHS 06/25/21 gabapentin 400 mg PO BID 06/25/21 pantoprazole 20 mg PO BID 06/25/21 simvastatin 40 mg PO DAILY 06/25/21 trazodone 50 mg PO QHS 06/25/21
--- NOTE | 2021-06-26 13:46 | CASEMGMT ---
Per PT/OT/ST, pt does not need any further therapy at d/c. Pt voices no further questions/concerns/needs. Deandre MOYA CM
--- NOTE | 2021-06-26 14:21 | PCM.DC.SUM ---
Documented by User: Rashi ALEJANDRA 06/26/21 14:29 Providers Date of Admission: 06/25/21 Primary Care Physician: [place] Perera Reason For Visit: ACUTE CVA Diagnosis Discharge Diagnosis (1) Acute CVA (cerebrovascular accident): Status: Acute Code(s): I63.9 - Cerebral infarction, unspecified Medications at Discharge Home Medications clopidogrel 75 mg PO DAILY 08/23/19 isosorbide mononitrate 15 mg PO DAILY 08/23/19 metoprolol succinate 25 mg PO DAILY 08/23/19 cyclobenzaprine 5 mg PO QHS 06/25/21 gabapentin 400 mg PO BID 06/25/21 pantoprazole 20 mg PO BID 06/25/21 simvastatin 40 mg PO DAILY 06/25/21 trazodone 50 mg PO QHS 06/25/21 Hospital Course Procedures 2-D Echocardiogram and Transthoracic echo Summary of Care Provided Minutes Spent on Discharge: 35 Hospital Course: Disposition: Patient to discharge home. 1) strokelike symptoms Patient was admitted for dizziness and right lower extremity weakness that was concerning for acute CVA. Patient's symptoms have abated from admission, although patient still does endorse chronic right lower extremity numbness. Brain MRI obtained and did not demonstrate any evidence of acute ischemia or infarction. Echocardiogram obtained on 06/26 demonstrated normal LV systolic function, an estimated EF of 65% and negative bubble study with pseudonormal pattern diastolic dysfunction. No additional investigation indicated at this time. Magnesium, TSH, hemoglobin A1c and lipid panel were all within normal limits. Patient will be discharged home on Plavix. Additional aspirin regimen not initiated due to ongoing thrombocytopenia. Patient to follow-up with primary care provider within the next 2 weeks. 2) thrombocytopenia Unclear if acute or chronic. Platelets were 74,000 on admission and dropped to 64,000 this morning. Patient is on long-term Plavix therapy for CAD, which will be continued due to risk versus benefit. Patient is to follow-up with hematology/oncology on discharge for appropriate outpatient work-up. Patient is to continue medications for all other chronic conditions. Patient seen by Rashi Headley PA-C, under the supervision of Dr. Palacio. Physical Exam Narrative Patient is an 80-year-old male comfortably resting in bed, alert and orient x3. Patient reports that right lower extremity weakness has improved from admission, although does still report chronic numbness. Denies slurred speech or facial droop. Denies development of any new symptoms overnight. Does not appear to be in acute distress. Const alert, oriented x3 and no apparent distress HEENT normocephalic, head/scalp atraumatic and hearing grossly normal bilaterally Eyes PERRL, EOMs intact bilaterally and conjunctivae normal Neck no lymphadenopathy, supple and no JVD Resp normal respiratory effort, no retractions, no use of accessory muscles and clear to auscultation bilaterally Cardio regular rate, regular rhythm, no murmurs and no JVD GI normal to inspection, nondistended, normoactive bowel sounds, soft to palpation and non-tender Extremity normal to inspection, full ROM and no clubbing, cyanosis or edema Skin no rashes or lesions noted, no wounds, skin turgor normal and no jaundice Neuro CN's II-XII intact bilaterally Psych affect normal Weight / BMI Weight Weight: 157 lb 3.033 oz Body Mass Index (BMI) 24.2 ABG / Lab / Microbiology Data Result Diagrams: 06/26/21 06:48 06/26/21 06:48 Laboratory: Laboratory Results - last 24 hr 06/25/21 14:21: WBC 3.7 L, RBC 4.70, Hgb 13.7, Hct 42.3, MCV 90.0, MCH 29.1, MCHC 32.4, RDW Std Deviation 46.9 H, RDW Coeff of Jaqueline 14.2, Plt Count 74 L, MPV 12.4 H, Immature Gran % (Auto) 0.800, Neut % (Auto) 56.3, Lymph % (Auto) 32.0, [place] % (Auto) 8.7, Eos % (Auto) 1.4, Baso % (Auto) 0.8, Absolute Neuts (auto) 2.1, Absolute Lymphs (auto) 1.18, Nucleated RBC % 0, Differential Comment SCANNED 06/25/21 14:21: Sodium 140, Potassium 4.1, Chloride 109 H, Carbon Dioxide 28.0, Anion Gap 3 L, BUN 13, Creatinine 1.29, Estim Creat Clear Calc 42.71, Est GFR (MDRD) Af Amer 68, Est GFR (MDRD) Non-Af 57 L, BUN/Creatinine Ratio 10.1, Glucose 90, Calcium 9.1, Troponin I High Sens 36 06/25/21 14:50: PT 13.0, INR 1.0, APTT 29.2 06/25/21 14:50: POC Glucose 86 06/25/21 18:17: Magnesium 1.9, Troponin I High Sens 46 06/26/21 06:48: WBC 3.1 L, RBC 4.51 L, Hgb 13.2, Hct 40.1, MCV 88.9, MCH 29.3, MCHC 32.9, RDW Std Deviation 45.9 H, RDW Coeff of Jaqueline 14.2, Plt Count 64 L, MPV 12.6 H, Immature Gran % (Auto) 0.300, Neut % (Auto) 60.6, Lymph % (Auto) 30.8, [place] % (Auto) 5.8, Eos % (Auto) 1.9, Baso % (Auto) 0.6, Absolute Neuts (auto) 1.9 L, Absolute Lymphs (auto) 0.96, Nucleated RBC % 0 06/26/21 06:48: Sodium 141, Potassium 4.2, Chloride 109 H, Carbon Dioxide 26.0, Anion Gap 6, BUN 12, Creatinine 1.19, Estim Creat Clear Calc 44.75, Est GFR (MDRD) Af Amer 75, Est GFR (MDRD) Non-Af 62, BUN/Creatinine Ratio 10.1, Glucose 87, Calcium 8.6, Total Bilirubin 0.30, AST 18, ALT 15 L, Alkaline Phosphatase 64, Total Protein 6.1 L, Albumin 3.1 L, Globulin 3.0, Albumin/Globulin Ratio 1.0, Triglycerides 150, Cholesterol 145, LDL Cholesterol 66, VLDL Cholesterol 30, HDL Cholesterol 49, TSH 1.29 06/26/21 06:48: Hemoglobin A1c 5.3 Radiography Diagnostic Testing: Radiology Impression Chest X-Ray 06/25/21 14:25 IMPRESSION: Nonacute portable x-ray examination of the chest. Electronically Signed: Mike Vargas MD (Brooks) at 15:12 EDT , Service support , Head/Neck CTA 06/25/21 14:25 IMPRESSION: No acute findings in the head/brain. N.B. : The above Results were Read Back by Mike Vargas MD (Brooks) to Reed Turner and understanding confirmed on 06/25/2021 16:13:43 (ET). Electronically Signed: Mike Vargas MD (Brooks) at 16:21 EDT , Service support , ADDENDUM: 06/25/21 1628 IMPRESSION: No acute findings in the head/brain. N.B. : The above Results were Read Back by Mike Vargas MD (Brooks) to Reed Turner and understanding confirmed on 06/25/2021 16:13:43 (ET). Electronically Signed: Mike Vargas MD (Brooks) at 16:21 EDT , Service support , Echocardiogram 06/25/21 17:58 Interpretation Summary Left ventricular systolic function is normal. The estimated ejection fraction is 65 %. Apical false tendon noted. The left atrium is moderately enlarged. There is mild mitral annular calcification. Extension of the mitral annular calcification onto the base of the posterior mitral valve leaflet. Mild (1+) mitral valve insufficiency. Mild tricuspid valve insufficiency. Mild focal aortic valve calcification. Trivial aortic valve insufficiency. Trivial pulmonic valve insufficiency. Right ventricular systolic pressure estimated to be 36 mmHg. Transmitral diastolic flow velocities suggest diastolic dysfunction (pseudonormal pattern). Bubble contrast study negative for right to left interatrial shunt. Ordering Physician: Trinh Thompson Referring Physician: Lizeth Saini Performed By: Leonidas Davis RCS Brain MRI 06/26/21 09:00 IMPRESSION: 1. No evidence of acute ischemia. 2. Chronic microvascular changes. at 1142 Reported and signed by: Mp Ferro MD Electronically Signed: Mp Ferro MD at 11:41 EDT Tel , Service support , D/C Instructions Discharge Diet: No restrictions Weight Bearing Status: Weight bearing as tolerated Call your doctor if you observe: Fever of 101 or Higher, Numbness or Tingling, Shortness of breath, Dizziness, Chest pain, Increased palpitations (irregular heartbeat) and Calf discomfort Please Follow Up With: Primary care provider When: Within the next two weeks. Meaningful Use Info Meaningful Use Diagnoses (Choose all that apply): None applicable Discharge Plan Admission Admit Date/Time: 06/25/21 16:41 Primary Reason for Your Visit: Stroke like symptoms Attending Provider: Artie Palacio Primary Care Provider: Lizeth Saini Discharge Orders/Prescriptions Prescriptions: Continued isosorbide mononitrate 30 MG tablet extended release 24 hr 15 mg PO DAILY RF: 0 clopidogrel 75 MG tablet 75 mg PO DAILY RF: 0 metoprolol succinate 25 MG tablet extended release 24 hr 25 mg PO DAILY RF: 0 trazodone 50 mg tablet 50 mg PO QHS RF: 0 gabapentin 400 mg capsule 400 mg PO BID RF: 0 simvastatin 40 mg tablet 40 mg PO DAILY RF: 0 pantoprazole 20 mg tablet,delayed release (DR/EC) 20 mg PO BID RF: 0 cyclobenzaprine 5 mg tablet 5 mg PO QHS RF: 0 Referrals / Follow Up: Rita Rivera NP, DIRECTOR [employer]ANGU[employer]-C [Nurse Practitioner] - Within 2 Weeks (Low platelets. ) Lizeth Saini PA [Primary Care Provider] - Within 2 Weeks (Follow up with PCP for chronic leg numbness. ) Disposition Disposition (needs filled in before D/C Order can be placed): Home, Self Care Documented by User: Dr. Artie Palacio MD 06/26/21 15:23 Providers Date of Admission: 06/25/21 Reason For Visit: ACUTE CVA Medications at Discharge Home Medications clopidogrel 75 mg PO DAILY 08/23/19 isosorbide mononitrate 15 mg PO DAILY 08/23/19 metoprolol succinate 25 mg PO DAILY 08/23/19 cyclobenzaprine 5 mg PO QHS 06/25/21 gabapentin 400 mg PO BID 06/25/21 pantoprazole 20 mg PO BID 06/25/21 simvastatin 40 mg PO DAILY 06/25/21 trazodone 50 mg PO QHS 06/25/21 Hospital Course Summary of Care Provided Minutes Spent on Discharge: 45 Hospital Course: This patient was seen in conjunction with Rashi ALEJANDRA. I have independently interviewed and examined the patient and reviewed pertinent historical, laboratory, and other data. Please refer to Rashi ALEJANDRA note for details of this patient's presentation, findings, and recommendations. I have reviewed Rashi ALEJANDRA note and concur with documented findings. Patient is an 80-year-old man admitted with dizziness and right-sided weakness admitted to regular nursing floor for stroke work-up. MRI obtained came back unremarkable Assessment: 1. Transient ischemic attack 2. Hypertension: Blood Pressure stable. Home medications continued. Doses adjusted as needed 3. Thrombocytopenia 4. GERD 5. Coronary artery disease status post [place] with previous CABG subsequent stent placement 6. Dyslipidemia 7. DVT prophylaxis Hospital course: As documented above ABG / Lab / Microbiology Data Result Diagrams: 06/26/21 06:48 06/26/21 06:48 Discharge Plan Admission Admit Date/Time: 06/25/21 16:41 Primary Reason for Your Visit: Stroke like symptoms Attending Provider: Artie Palacio Primary Care Provider: Lizeth Saini Discharge Orders/Prescriptions Prescriptions: Continued isosorbide mononitrate 30 MG tablet extended release 24 hr 15 mg PO DAILY RF: 0 clopidogrel 75 MG tablet 75 mg PO DAILY RF: 0 metoprolol succinate 25 MG tablet extended release 24 hr 25 mg PO DAILY RF: 0 trazodone 50 mg tablet 50 mg PO QHS RF: 0 gabapentin 400 mg capsule 400 mg PO BID RF: 0 simvastatin 40 mg tablet 40 mg PO DAILY RF: 0 pantoprazole 20 mg tablet,delayed release (DR/EC) 20 mg PO BID RF: 0 cyclobenzaprine 5 mg tablet 5 mg PO QHS RF: 0 Referrals / Follow Up: Rita Rivera NP, DIRECT[employer]-C [Nurse Practitioner] - Within 2 Weeks (Low platelets. ) Lizeth Saini PA [Primary Care Provider] - Within 2 Weeks (Follow up with PCP for chronic leg numbness. ) Disposition Disposition (needs filled in before D/C Order can be placed): Home, Self Care Charges/Coding Visit Charges Inpatient E&M: 71671 Disch Hosp Hospital Course Imaging Results Imaging Results: 06/26/21 09:00 Brain without Contrast [MRI] Routine
== END 2021-06-26 13:55 | disposition home or self-care (01) | DRG 69 ==
LOC: ED 16:49 → PCU 17:01
PROVIDERS: Admitting Provider Family Medicine; Emergency Provider Emergency Medicine; PCP Physician Assistant; Visit Provider Internal Medicine
DX: G45.9 Transient cerebral ischemic attack, unspecified (principal); R26.2 Difficulty in walking, not elsewhere classified; R53.1 Weakness; D69.6 Thrombocytopenia, unspecified; I25.10 Atherosclerotic heart disease of native coronary artery without angina pectoris; I10 Essential (primary) hypertension; E78.5 Hyperlipidemia, unspecified; K21.9 Gastro-esophageal reflux disease without esophagitis; Z79.02 Long term (current) use of antithrombotics/antiplatelets; Z79.899 Other long term (current) drug therapy; I25.2 Old myocardial infarction; Z87.891 Personal history of nicotine dependence; Z95.1 Presence of aortocoronary bypass graft; Z95.5 Presence of coronary angioplasty implant and graft
CPT/HCPCS: 36415; 70496; 70498; 70551; 71045; 80048; 80053; 80061; 82962; 83036; 83735; 84443; 84484; 85025; 85610; 85730; 92523; 92610; 93005; 93306; 94762; 97161; 97166; 99251; 99285; J7030; Q9957; Q9967; A4216; G0463; J3490

== ENCOUNTER → 2023-05-14 | Outpatient (CLI) | payer MEDICARE, SELFPAY ==
--- NOTE | 2023-05-14 12:38 | RAD_ITS ---
PROCEDURE: Fluoroscopic guided Hip Injection DATE: May 14, 2023. INDICATION: Male, 82 years old. Chronic left hip pain. PHYSICIAN: Juan Valdivia M.D. MEDICATIONS: 80 mg of Kenalog and 3 cc of 1% lidocaine. 2% lidocaine administered subcutaneously for local anesthesia. ACCESS SITE: Right hip. NEEDLE: 22-gauge spinal needle. FLUOROSCOPY TIME (if supplied): (1:18) minutes/seconds. 30.25 mGy. One image was submitted. FINDINGS: The risks, benefits, and alternatives to the procedure were explained to the patient. The specific risks of bleeding, infection, and neurovascular injury were detailed and accepted. Witnessed informed consent was obtained. A 22-gauge spinal needle was positioned under radiographic fluoroscopic localization. Approximately 2 cc of Isovue-300 instilled for localization purposes. Medication was then injected. The patient tolerated the procedure well without any immediate complications. RAD/Inj/Asp Topher Jt Should/Hip/Knee IMPRESSION: 1. Successful fluoroscopic guided hip injection. Electronically Signed: Juan Valdivia MD at 14:56 EDT ,
[2023-05-14] MEDS: Triamcinolone Acetonide 40 MG/ML Vial 80 MG INTRAARTIC (13:05)
[2023-05-14] MEDS: Lidocaine 2% (5ml sdv) 5 ML VIAL.MPF INFILT (13:05)
[2023-05-14] MEDS: Bupivacaine 0.5% PF 10 ML VIAL INTRAARTIC (13:05)
== END | disposition home or self-care (01) ==
LOC: RAD 12:29
PROVIDERS: PCP Physician Assistant; Referring Provider Orthopaedic Surgery; Visit Provider Orthopaedic Surgery
DX: M25.551 Pain in right hip (principal); G89.29 Other chronic pain; M16.11 Unilateral primary osteoarthritis, right hip
CPT/HCPCS: 20610; 77002

== ENCOUNTER → 2023-09-23 | Outpatient (CLI) | payer MEDICARE, SELFPAY ==
[2023-09-23] MEDS: Lidocaine 2% (5ml sdv) 5 ML VIAL.MPF INFILT (13:15)
[2023-09-23] MEDS: Triamcinolone Acetonide 40 MG/ML Vial 80 MG INTRAARTIC (13:18)
[2023-09-23] MEDS: Bupivacaine 0.5% PF 10 ML VIAL INTRAARTIC (13:18)
--- NOTE | 2023-09-23 13:34 | PCM.OP.PRO ---
Procedure Report Date of Procedure: 09/23/23 Assessment & Plan Assessment/Plan (1) Osteoarthritis of right hip: QUALIFIERS: Osteoarthritis type: unspecified Qualified Code(s): M16.11 - Unilateral primary osteoarthritis, right hip PLAN: PROCEDURE: Fluoroscopic Guided right hip injection ORDERING PROVIDER: Dr. Cristiano Ramos INDICATION: Male, 83 years old. Osteoarthritis of the right hip. PROVIDER: MARY Walsh PROCEDURE: CONSENT: The risks, benefits, and alternatives to the procedure were explained to the patient. The specific risks of bleeding, infection, and neurovascular injury were detailed and accepted. Witnessed informed consent was obtained. TECHNIQUE: The right hip access site was prepped and draped in sterile fashion. 2% Lidocaine was administered subcutaneously for local anesthesia. A 22-gauge spinal needle was positioned under radiographic fluoroscopic localization. Approximately 2 cc of Isovue 300 instilled for localization purposes. Medication was then injected. MEDICATIONS: 80 mg of Kenalog and 3 ml of 0.5% bupivacaine. The spinal needle was removed, and a dressing was applied. The patient tolerated the procedure well without any immediate complications. IMPRESSION: Successful fluoroscopic guided right hip injection. Procedures Radiology Radiology Xray Procedures: 52969 Inj Asp major Joint - Hip, Knee
== END | disposition home or self-care (01) ==
LOC: NM 12:21 → RAD 12:29
PROVIDERS: PCP Physician Assistant; Referring Provider Orthopaedic Surgery; Visit Provider Orthopaedic Surgery
DX: M16.11 Unilateral primary osteoarthritis, right hip (principal); Z79.02 Long term (current) use of antithrombotics/antiplatelets
CPT/HCPCS: 20610; 77002; Q9965

== ENCOUNTER 2023-09-24 14:00 | Inpatient (IN) | payer MEDICARE, SELFPAY ==
[2023-09-24] VITALS (9 sets, daily range): BP systolic 108–161; BP diastolic 63–97; PULSE 73–123; RESP 16–18; TEMP 36.2–36.9; O2SAT 96–99; BMI 27.3; BMI 27.1
[2023-09-24] MEDS: Aspirin 81 MG TAB.CHEW 324 MG PO (14:21)
--- NOTE | 2023-09-24 14:28 | RAD_ITS ---
STUDY: X-RAY CHEST REASON FOR EXAM: Male, 83 years old. Chest pain TECHNIQUE: Single AP portable view of the chest. COMPARISON: Comparison is made with prior study dated June 25, 2021. FINDINGS: EKG electrodes are seen. Mild increased markings are seen at the left lung base suggestive of atelectasis and/or infiltrate. Blunting of the left costophrenic angle. Sternal cerclage wires and vascular clips are present from a prior sternotomy and coronary artery bypass graft procedure (CABG). Normal mediastinum and rita. Normal visualized pulmonary arteries. Normal visualized aortic arch and descending thoracic aorta. Normal visualized thoracic spine. There is degenerative osteoarthritis of the bilateral shoulders. There is no demonstrated abnormality of the visualized soft tissue structures of the upper abdomen. RAD/Chest 1 View (Portable) IMPRESSION: Increased markings at the left lung base with blunting of the left costophrenic angle. Follow-up recommended. Electronically Signed: Juan Valdivia MD at 14:52 EST ,
[2023-09-24 14:33] LABS: Absolute Lymphocyte Count 1.31 X10^3/uL (0.83-4.51); Absolute Neutrophil Count 18.2 X10^3/uL (2.0-7.7); Basophil# 0.04 X10^3/uL; Basophil% 0.2 % (0-1); Hematocrit 44.7 % (40-54); Hemoglobin 14.4 g/dL (13.0-16.5); Lymphocyte # 1.31 X10^3/ul (0.83-4.51); Lymphocyte % 6.5 % (19-41); Mean Corp Hgb Conc 32.2 g/dL (32-36); Mean Corpuscular Hgb 28.6 pg (27.0-32.0); Mean Corpuscular Volume 88.9 fL (80-94); Mean Platelet Vol. 12.7 fl (6.2-12.0); Monocyte# 0.42 X10^3/uL; Monocyte% 2.1 % (0-10); NRBC Flagged by Analyzer 0 % (0-5); Neutrophil # 18.15 X10^3/uL (2.7-7.7); Platelet Count 135 K/mm3 (150-450); RBC Distribution Width CV 13.7 % (11.6-14.6); Red Blood Count 5.03 M/mm3 (4.6-6.2); White Blood Count 20.2 K/mm3 (4.4-11.0)
--- NOTE | 2023-09-24 14:42 | ED.VIS.CHEST ---
HPI History of Present Illness Chief Complaint: Chest Pain Narrative Narrative: 83-year-old male with history of CAD, CABG, cardiac stent, TIA presenting with chest discomfort. He states that in the retrosternal area. He states at about 11 AM while he was at the grocery store. Last about 10 seconds. Patient states he did fine. He went home and started to walk the dog with the discomfort came back and he noticed that his heart is racing. He denies any history of A-fib. He is not on any anticoagulation other than Plavix. Patient states he had this held for about 5 days prior to getting a right hip injection yesterday here at [facility] hypertension patient denies history of DVT/PE patient presents to the I does not have any current risk factors other than procedure yesterday. Patient states his last stress test and echocardiogram were over a year ago at outside facility. [facility] Medical History (Updated 09/24/23 @ 16:[address] Fiorella Ramos MD) CAD (coronary artery disease) Former tobacco use GERD (gastroesophageal reflux disease) History of chronic hypertension HLD (hyperlipidemia) Hypertension Myocardial infarct Right leg weakness Vertigo Home Medications clopidogrel 75 mg tablet 75 mg PO DAILY anti platelet 08/23/19 [History Last Taken 06/25/21] isosorbide mononitrate 30 mg tablet,extended release 24 hr 15 mg PO DAILY HEART 08/23/19 [History Last Taken 06/25/21] metoprolol succinate 25 mg tablet,extended release 24 hr 25 mg PO DAILY blood pressure 08/23/19 [History Last Taken 06/25/21] cyclobenzaprine 5 mg tablet 5 mg PO QHS MUSCLE 06/25/21 [History Last Taken 06/24/21] gabapentin 400 mg capsule 400 mg PO BID NERVE PAIN 06/25/21 [History Last Taken 06/25/21] pantoprazole 20 mg tablet,delayed release 20 mg PO BID GERD 06/25/21 [History Last Taken 06/25/21] simvastatin 40 mg tablet 40 mg PO DAILY CHOLESTEROL 06/25/21 [History Last Taken 06/24/21] trazodone 50 mg tablet 50 mg PO QHS SLEEP 06/25/21 [History Last Taken 06/24/21] ezetimibe 10 mg tablet 10 mg PO DAILY 09/24/23 [History Last Taken Unknown] Allergy/AdvReac Type Severity Reaction Status Date / Time Sulfa (Sulfonamide Allergy Unknown Verified 09/24/23 14:02 Antibiotics) Family History Mother Heart disease Father Heart disease Surgical History H/O right heart catheterization S/p bilateral carpal tunnel release S/P bilateral cataract extraction S/P bilateral foot surgery S/P CABG x 3 S/P tonsillectomy and adenoidectomy Status post arthroscopic knee surgery Stented coronary artery Social History household members: spouse Smoking Status: Former smoker how long ago did patient quit smoking: Quit when he was 44 y/o, 1/2 ppd since 10 years old. alcohol intake: never substance use type: does not use ROS ROS ED Constitutional Constitutional ED: Denies chills, fever(s) or sweats Eyes Eyes: Denies blurry vision or change in vision ENT ENT ED: Denies ear pain or sore throat Cardiovascular Cardiovascular: Reports chest pain and palpitations; Denies racing heartbeat Respiratory/Chest Respiratory/Chest: Denies cough, dyspnea or sputum Gastrointestinal Gastrointestinal: Denies abdominal pain, constipation, diarrhea, nausea or vomiting Genitourinary Genitourinary ED: Denies dysuria, hematuria or urinary frequency Musculoskeletal Musculoskeletal: Denies arthralgias, myalgias or neck pain Integumentary Denies abscess, Abrasions or rash Neurologic Neurologic: Denies headache(s), paresthesias or weakness Psychiatric Psychiatric: Denies anxiety, depression, suicidal ideation or suicidal thoughts Endocrine Endocrinology: Denies polydipsia or polyuria EXAM Physical Exam Const Vital Signs: 09/24/23 14:02 09/24/23 14:08 09/24/23 14:11 Temperature 97.2 F L Temperature Source Temporal Pulse Rate 108 H 123 H Respiratory Rate 18 16 Respiratory Effort Normal Non-Labored Blood Pressure 158/97 H 161/86 H Blood Pressure Mean 117 111 Pulse Ox 99 97 Oxygen Delivery Method Room Air Room Air 09/24/23 14:53 09/24/23 15:27 09/24/23 15:28 Temperature Temperature Source Pulse Rate 88 86 88 Respiratory Rate 16 18 18 Respiratory Effort Blood Pressure 141/72 H 108/72 116/89 H Blood Pressure Mean 95 84 98 Pulse Ox 96 98 96 Oxygen Delivery Method Room Air Room Air Positive well nourished General Appearance ED: NAD; Negative for pallor HEENT Reports moist mucous membranes normocephalic and atraumatic Eyes PERRL and EOMs intact bilaterally Chest Wall inspection of chest normal Resp normal respiratory effort and clear to auscultation bilaterally Cardio Rate: tachycardic Rhythm: abnormal rhythm irregularly irregular GI normal to inspection, nondistended, normoactive bowel sounds Neuro oriented x3 and CN's II-XII intact bilaterally Sensorium / Orientation: awake and alert Motor Exam: strength 5/5 throughout Psych mental status grossly normal Skin no rashes or lesions noted General Skin Exam: Negative for jaundice or pallor Heart Score History: Moderately Suspicious ECG: Normal Age: >/= 65 years Risk Factors: >/= 3 Risk Factors or History of CAD Troponin: </= Normal Limit Score: 5 MDM MDM MDM Narrative Medical decision making narrative: 83-year-old male presenting with chest pain/discomfort which started today at 11 AM and then returned again after he went home and walk the dog. He states that episode lasted about 20 seconds and now he just has a rapid heart rate. Denies shortness of breath, lightheadedness, nausea, vomiting. Differential includes but is not limited to ACS, PE, pneumonia, pneumothorax, muscle strain, costochondritis, dehydration, electrolyte abnormalities, CHF, A-fib. EKG was obtained and on my interpretation shows atrial fibrillation with rapid ventricular response at 132 bpm. Patient given 20 of Cardizem, 1 L of IV fluids. She can aspirin 324 mg. CBC obtained to assess white blood cell count, hemoglobin, platelets. BMP to assess renal function, electrolytes, glucose, anion gap. High-sensitivity troponin rule ischemia. BNP to rule out CHF. D-dimer is I cannot PERC the patient due to tachycardia. Chest x-ray will be obtained to rule out CHF or pneumonia. CBC came back elevated at 20.2 and given the patient's tachycardia sepsis workup was pursued. Lactic acid, PT/INR, blood cultures, urinalysis, urine cultures all obtained. I was able to log into [employer], and I was able to find pertinent medical records available for review to compare to the patient's current lab/imaging/workup. Creatinine today is 1.52. Review of the medical record shows that this was 1.36 on 04/14/2023. High-sensitivity troponin is 4. CBC again with leukocytosis of 20.2 with left shift. Hemoglobin stable 14.4. Platelets are 135. This is not new for him. Patient's troponin today is 40. Lactic acid came back within normal limits at 1.7. Coagulation studies are normal. D-dimer negative. Chest x-ray my interpretation does not show any acute process. Patient heart rate is now on 88. He is doing well. Discussed with hospitalist for admission for chest pain and A-fib which is new onset. Impression: 1. Chest pain 2. New onset A-fib 3. Leukocytosis. Lab Data Attestation: I reviewed the patient's lab results. Labs: Laboratory Results - last 24 hr 09/24/23 09/24/23 09/24/23 14:10 14:55 15:11 WBC 20.2 H RBC 5.03 Hgb 14.4 Hct 44.7 MCV 88.9 MCH 28.6 MCHC 32.2 RDW Std Deviation 44.0 H RDW Coeff of Jaqueline 13.7 Plt Count 135 L MPV 12.7 H Immature Gran % (Auto) 1.200 H Neut % (Auto) 90.0 H Lymph % (Auto) 6.5 L [facility] % (Auto) 2.1 Eos % (Auto) 0.0 Baso % (Auto) 0.2 Absolute Neuts (auto) 18.2 H Absolute Lymphs (auto) 1.31 Nucleated RBC % 0 PT 13.5 INR 1.0 D-Dimer Quant (PE/DVT) 0.66 H* Sodium 140 Potassium 4.3 Chloride 110 H Carbon Dioxide 25.0 Anion Gap 5 BUN 17 Creatinine 1.52 H Estim Creat Clear Calc 33.22 Est GFR (MDRD) Af Amer 56 L Est GFR (MDRD) Non-Af 47 L BUN/Creatinine Ratio 11.2 Glucose 123 H Lactic Acid 1.7 Calcium 10.0 Troponin I High Sens 40 B-Natriuretic Peptide 548.5 H Urine Color Yellow Urine Clarity Clear Urine pH 6.0 Ur Specific [place] 1.010 Urine Protein 15 H Urine Glucose (UA) Normal Urine Ketones Negative Urine Occult Blood 50 H Urine Nitrite Negative Urine Bilirubin Negative Urine Urobilinogen Normal Ur Leukocyte Esterase Negative Urine RBC 0 SEEN Urine WBC 0 SEEN Ur Squamous Epith Cells 0 SEEN Urine Bacteria 0 SEEN Urine Mucus 0 SEEN Radiography Diagnostic Testing: Clinical Impression(s) from Imaging Studies Chest X-Ray 09/24/23 14:28 IMPRESSION: Increased markings at the left lung base with blunting of the left costophrenic angle. Follow-up recommended. Electronically Signed: Juan Valdivia MD at 14:52 EST , Discharge Plan Triage Chief Complaint: Chest Pain ED Provider: Rudy Sin Dx/Rx/DC Orders Prescriptions: No Action isosorbide mononitrate 30 MG tablet extended release 24 hr 15 mg PO DAILY clopidogrel 75 MG tablet 75 mg PO DAILY metoprolol succinate 25 MG tablet extended release 24 hr 25 mg PO DAILY trazodone 50 mg tablet 50 mg PO QHS gabapentin 400 mg capsule 400 mg PO BID simvastatin 40 mg tablet 40 mg PO DAILY pantoprazole 20 mg tablet,delayed release (DR/EC) 20 mg PO BID cyclobenzaprine 5 mg tablet 5 mg PO QHS ezetimibe 10 mg tablet 10 mg PO DAILY Primary Care Provider: Lizeth Saini Referrals: Lizeth Saini PA [Primary Care Provider] -
[2023-09-24 14:44] LABS: Anion Gap 5 (5-15); BUN 17 mg/dL (7-18); BUN/Creat Ratio 11.2 RATIO (10-20); Chloride 110 mmol/L (98-107); Creatinine, Serum 1.52 mg/dL (0.70-1.30); EST Glomerular Filtration Rate 47 mL/min (>60); Est Glom Filt Rate - Afr Amer 56 mL/min (>60); Estimated Creatinine Clearance 33.22 ml/min; Glucose 123 mg/dL (74-106); Potassium 4.3 mmol/L (3.5-5.1); Sodium Level 140 mmol/L (136-145); Troponin-I HS (w/2H Reflex) 40 pg/mL (3.0-78.0)
[2023-09-24] MEDS: dilTIAZem 25 MG/5 ML Vial 20 MG IV BOLUS (14:44)
[2023-09-24] MEDS: 0.9% Normal Saline (1000mL) 1,000 ML 999 ML IV (14:47)
[2023-09-24 14:53] LABS: BNP,B-Type NATRIURETIC PEPTIDE 548.5 pg/mL (0-100); D-Dimer Quantitative (DVT/PE) 0.66 FEU/ug/m (0.27-0.49)
--- NOTE | 2023-09-24 14:54 | ED.RN ---
LAB CALLED D-DIMER 0.66. AWARE. DOES NOT REQUIRE A CT
[2023-09-24 15:21] LABS: Bacteria 0 SEEN /hpf (None Seen); Mucous, Urine 0 SEEN /hpf (<or=2+); Red Blood Cells-Urine 0 SEEN /hpf (0-5); Squamous Epithelial Cells - UA 0 SEEN /hpf (0-5); White Blood Cells 0 SEEN /hpf (0-5)
[2023-09-24 15:26] LABS: Color, Urine Yellow (Yellow); Glucose, Dipstick Normal (Normal); Ketone-Dipstick Negative (Negative); Leukocyte Esterase-Dipstick Negative /ul (Negative); Nitrite-Dipstick Negative (Negative); Occult Blood-Urine 50 /ul (Negative); Protein-Dipstick 15 mg/dl (Negative); Urine Bilirubin Dipstick Negative (Negative); Urine Clarity Clear (Clear); Urine Urobilinogen Normal (Normal)
[2023-09-24 15:31] LABS: Prothrombin Time (Protime)PT. 13.5 SECONDS (11.7-14.9)
[2023-09-24 15:35] LABS: Lactic Acid 1.7 mmol/L (0.4-1.9)
--- NOTE | 2023-09-24 16:06 | PCM.HP.STD ---
HPI - General General Date of Admission: 09/24/23 Date of Service: 09/24/23 Chief Complaint: Chest pain, racing heart HPI Narrative ANGIE DUTTON, is an 83-year-old male with history of CAD status post CABG and stenting, TIA, hypertension, GERD who presented to [facility] 09/24/2023 with retrosternal chest discomfort. It started at about 11 AM when he was at the grocery store and lasted for 10 seconds and went away. When he went home and started to walk the dog the discomfort came back and he noticed that his heart was racing. He held his Plavix for 5 days prior to getting a hip injection yesterday and his right hip denies any other anticoagulation or history of A-fib. In the ED patient initially with heart rate in low 100s and blood pressure 158/97 saturating 99% on room air. Patient with white blood cell count of 20.2, creatinine 1.52 with unclear baseline, BNP 548 with a D-dimer of 0.66. Initial troponin within normal limits. Chest x-ray with increased markings at left lung base with blunting of left costophrenic angle. Patient found to be in A-fib with RVR. Given new onset A-fib with RVR, elevated BNP, elevated white blood cell count hospitalist contacted for admission. Patient evaluated at bedside and he reports the brief feeling of chest pain and shortness of breath for 10 to 20 seconds at the grocery store that resolved and came back when he was walking his dog, symptoms resolved after he was given Cardizem in the ED and heart rate improved. Denies any swelling, reports some chronic diarrhea but denies any other focal complaints. [facility] Medical History (Updated 09/24/23 @ 16:[address] Fiorella Ramos MD) CAD (coronary artery disease) Former tobacco use GERD (gastroesophageal reflux disease) History of chronic hypertension HLD (hyperlipidemia) Hypertension Myocardial infarct Right leg weakness Vertigo Home Medications clopidogrel 75 mg tablet 75 mg PO DAILY anti platelet 08/23/19 [History Last Taken 06/25/21] isosorbide mononitrate 30 mg tablet,extended release 24 hr 15 mg PO DAILY HEART 08/23/19 [History Last Taken 06/25/21] metoprolol succinate 25 mg tablet,extended release 24 hr 25 mg PO DAILY blood pressure 08/23/19 [History Last Taken 06/25/21] cyclobenzaprine 5 mg tablet 5 mg PO QHS MUSCLE 06/25/21 [History Last Taken 06/24/21] gabapentin 400 mg capsule 400 mg PO BID NERVE PAIN 06/25/21 [History Last Taken 06/25/21] pantoprazole 20 mg tablet,delayed release 20 mg PO BID GERD 06/25/21 [History Last Taken 06/25/21] simvastatin 40 mg tablet 40 mg PO DAILY CHOLESTEROL 06/25/21 [History Last Taken 06/24/21] trazodone 50 mg tablet 50 mg PO QHS SLEEP 06/25/21 [History Last Taken 06/24/21] ezetimibe 10 mg tablet 10 mg PO DAILY 09/24/23 [History Last Taken Unknown] Allergy/AdvReac Type Severity Reaction Status Date / Time Sulfa (Sulfonamide Allergy Unknown Verified 09/24/23 14:02 Antibiotics) Family History Mother Heart disease Father Heart disease Surgical History H/O right heart catheterization S/p bilateral carpal tunnel release S/P bilateral cataract extraction S/P bilateral foot surgery S/P CABG x 3 S/P tonsillectomy and adenoidectomy Status post arthroscopic knee surgery Stented coronary artery Social History household members: spouse Smoking Status: Former smoker how long ago did patient quit smoking: Quit when he was 44 y/o, 1/2 ppd since 10 years old. alcohol intake: never substance use type: does not use ROS ROS Narrative General: Denies fever/chills HENT: Denies headache, denies stuffy nose, denies sore throat EYES: Denies changes in vision Resp: Denies cough, denies shortness of breath Cardiac: Had some chest discomfort and racing feeling GI: Some chronic diarrhea denies nausea/vomiting : Denies changes in urination Extremity: Denies swelling MSK: Denies weakness Neuro: Denies any numbness/tingling Heme: Denies any bleeding or bruising Skin: Denies rashes Psychiatric: No complaints voiced Vital Signs Vital Signs Vital Signs: 09/24/23 14:02 09/24/23 14:08 09/24/23 14:11 Temperature 97.2 F L Temperature Source Temporal Pulse Rate 108 H 123 H Respiratory Rate 18 16 Respiratory Effort Normal Non-Labored Blood Pressure 158/97 H 161/86 H Blood Pressure Mean 117 111 Pulse Ox 99 97 Oxygen Delivery Method Room Air Room Air 09/24/23 14:53 09/24/23 15:27 09/24/23 15:28 Temperature Temperature Source Pulse Rate 88 86 88 Respiratory Rate 16 18 18 Respiratory Effort Blood Pressure 141/72 H 108/72 116/89 H Blood Pressure Mean 95 84 98 Pulse Ox 96 98 96 Oxygen Delivery Method Room Air Room Air Weight Weight: 79.107 kg Body Mass Index (BMI) 27.3 Physical Exam Narrative General: Alert, oriented, no apparent distress HEENT: Atraumatic, normocephalic Eyes: Anicteric, normal conjunctiva, extraocular movements grossly intact Neck: Supple Respiratory: Somewhat diminished at the bases, normal respiratory effort Cardiovascular: Irregularly irregular GI: Soft, nontender, nondistended Extremities: No edema Musculoskeletal: Moving all extremities Neuro: No overt focal neurological deficits Skin: No rashes appreciated Psych: Cooperative Results Lab / Micro Data 09/24/23 14:10 09/24/23 14:10 Labs: Laboratory Results - last 24 hr 09/24/23 14:10: WBC 20.2 H, RBC 5.03, Hgb 14.4, Hct 44.7, MCV 88.9, MCH 28.6, MCHC 32.2, RDW Std Deviation 44.0 H, RDW Coeff of Jaqueline 13.7, Plt Count 135 L, MPV 12.7 H, Immature Gran % (Auto) 1.200 H, Neut % (Auto) 90.0 H, Lymph % (Auto) 6.5 L, Webb % (Auto) 2.1, Eos % (Auto) 0.0, Baso % (Auto) 0.2, Absolute Neuts (auto) 18.2 H, Absolute Lymphs (auto) 1.31, Nucleated RBC % 0, PT 13.5, INR 1.0, D-Dimer Quant (PE/DVT) 0.66 H*, Sodium 140, Potassium 4.3, Chloride 110 H, Carbon Dioxide 25.0, Anion Gap 5, BUN 17, Creatinine 1.52 H, Estim Creat Clear Calc 33.22, Est GFR (MDRD) Af Amer 56 L, Est GFR (MDRD) Non-Af 47 L, BUN/Creatinine Ratio 11.2, Glucose 123 H, Calcium 10.0, Troponin I High Sens 40, B-Natriuretic Peptide 548.5 H 09/24/23 14:55: Lactic Acid 1.7 09/24/23 15:11: Urine Color Yellow, Urine Clarity Clear, Urine pH 6.0, Ur Specific [place] 1.010, Urine Protein 15 H, Urine Glucose (UA) Normal, Urine Ketones Negative, Urine Occult Blood 50 H, Urine Nitrite Negative, Urine Bilirubin Negative, Urine Urobilinogen Normal, Ur Leukocyte Esterase Negative, Urine RBC 0 SEEN, Urine WBC 0 SEEN, Ur Squamous Epith Cells 0 SEEN, Urine Bacteria 0 SEEN, Urine Mucus 0 SEEN Imaging Radiology Impression Chest X-Ray 09/24/23 14:28 IMPRESSION: Increased markings at the left lung base with blunting of the left costophrenic angle. Follow-up recommended. Electronically Signed: Juan Valdivia MD at 14:52 EST , Assessment & Plan Assessment/Plan (1) Atrial fibrillation with RVR: (2) Osteoarthritis of right hip: QUALIFIERS: Osteoarthritis type: unspecified Qualified Code(s): M16.11 - Unilateral primary osteoarthritis, right hip (3) GERD (gastroesophageal reflux disease): (4) Hypertension: (5) CAD (coronary artery disease): PLAN: Plan # Chest pain in setting of A-fib with RVR -Found to be in afib w/ rvr on EKG on presentation, given dose of cardizem w/ improvement -Admit to telemetry -Increase home metoprolol for rate control, will increase to 50 mg daily so we will give an extra 25 x 1 -Elevated [id number], will start eliquis. Given age greater than 80 and creatinine greater than 1.5 technically meets criteria for the 2.5 twice daily of Eliquis, if creatinine improves tomorrow may be able to convert to the 5 twice daily dosing -BNP 548 without any previous values -CXR w/ increased markings at L lung base w/ blunting of L costophrenic angle -Will obtain echo, last echo 2020 EF 65%, RVSP 36 and flow suggestive of diastolic dysfunction -Initial troponin 40, Trend troponin -Daily weights, I's and O's -Will check TSH -Elevated heart score of 5, may need stress prior to d/c or after d/c pending findings #Hx CAD w/ CABG/PCI and hx TIA -Plavix, statin, Zetia, beta-bryan, Imdur -Lipid panel in AM -Echo -Elevated heart score, pending workup and stability of HR may need further cardiac w/u inpt vs outpt # Leukocytosis -White blood cell count of 20.2 with left shift -Unclear significance, ?related to steroid injection of R hip -UA negative for ifxn -Blood culture sent in ED -Will check Pro-William -Given new onset A-fib we will also check viral panels -If significantly elevated procal or if any other signs or symptoms of infection will start antibiotics, if not we will await cultures #CKD stage III unclear subtype -Creatinine 1.52 -Other values were from 2020 in our system but clinisync reveals Cr 1.36 on 04/14/23 -BUN within normal limits, patient does not appear to be dehydrated -Repeat BMP in a.m., if worsening can consider further workup #GERD -Continue PPI #HTN -Continue home medications #OA of R hip -s/p injection 09/23 w/ IR #DVT ppx: Kane Ramos MD Charges/Coding Visit Charges Inpatient E&M: 60551 Init Hosp L2
--- NOTE | 2023-09-24 16:15 | NURSING ---
DR DUTTA FOR DR NAIK
[2023-09-24 16:22] LABS: Reflex Troponin-HS? (from REC) Y
--- NOTE | 2023-09-24 16:30 | NURSING ---
PCU DUTTA AFIB/CHEST PAIN
[2023-09-24 17:14] LABS: Troponin-I HS 82 pg/mL (3.0-78.0)
[2023-09-24 17:36] LABS: Procalcitonin < 0.01 ng/mL (0.00-0.09)
--- NOTE | 2023-09-24 17:56 | ECHOD_ITS ---
Reason For Study: Afib/Flutter Procedure This was a 2D Doppler, Color Flow transthoracic echocardiogram. Exam performed portable in patient room. Left Ventricle Normal LV size. Mild eccentric left ventricular hypertrophy. Left ventricular systolic function is normal. The estimated ejection fraction is 65 %. Stage 2 diastolic dysfunction. No regional wall motion abnormalities noted. Right Ventricle Normal RV size. Normal systolic function. Atria The left atrium is moderately enlarged. Normal right atrium. Mitral Valve Mild mitral annular calcification. Mild (1+) mitral valve insufficiency. Tricuspid Valve Normal tricuspid valve. Trivial tricuspid valve insufficiency. Right ventricular systolic pressure estimated to be 40 mmHg. Mild pulmonary hypertension. Aortic Valve Trisinus/trileaflet aortic valve. Mild focal aortic valve calcification. Aortic sclerosis, no stenosis. Trivial aortic valve insufficiency. Pulmonic Valve The pulmonic valve is not well visualized. Great Vessels Normal aortic root. Pericardium/Pleural No pericardial effusion. MMode/2D Measurements & Calculations LVIDd: 4.0 cm IVSd: 1.0 cm Ao root diam: 3.3 cm LVIDs: 2.6 cm LVPWd: 1.2 cm RVDd: 3.2 cm FS: 34.0 % LAV(MOD-bp): 79.5 ml LVAd ap4: 22.8 cm2 SV(MOD-sp4): 32.4 ml LAV(MOD-bp) Indexed: 41.7 ml/m2 LVLd ap4: 6.9 cm LAV(MOD-sp2): 74.0 ml EDV(MOD-sp4): 62.1 ml LAV(MOD-sp4): 74.8 ml EDV(sp4-el): 63.8 ml LVAs ap4: 14.8 cm2 LVLs ap4: 6.4 cm ESV(MOD-sp4): 29.7 ml ESV(sp4-el): 28.9 ml EF(MOD-sp4): 52.2 % EF(sp4-el): 54.6 % SV(sp4-el): 34.8 ml LA A4 area: 23.7 cm2 LA dimension(2D): 4.4 cm RA A4 area: 15.5 cm2 TAPSE: 1.8 cm Time Measurements MV dec time: 0.16 sec Doppler Measurements & Calculations MV E max tariq: 126.3 cm/sec Lat Peak E' Tariq: 8.2 cm/sec Med Peak E' Tariq: 7.5 cm/sec MV A max tariq: 89.7 cm/sec E/E' lat: 15.3 E/E' med: 16.9 MV E/A: 1.4 MV V2 max: 126.0 cm/sec MV P1/2t max tariq: 127.0 cm/sec Ao V2 max: 148.2 cm/sec MV max P.4 mmHg MV P1/2t: 54.9 msec Ao max P.8 mmHg MV V2 mean: 70.7 cm/sec MV mean P.4 mmHg MV dec slope: 677.1 cm/sec2 MV V2 VTI: 28.8 cm MVA(P1/2t): 4.0 cm2 AI max tariq: 362.4 cm/sec LV V1 max: 130.6 cm/sec MR max tariq: 492.8 cm/sec AI max P.5 mmHg LV V1 max P.8 mmHg MR max P.1 mmHg AI dec slope: 350.9 cm/sec2 AI P1/2t: 302.6 msec PA V2 max: 126.7 cm/sec TR max tariq: 303.5 cm/sec PA V2 mean: 86.0 cm/sec TR max P.9 mmHg ECHO/Echo Complete Interpretation Summary The estimated ejection fraction is 65 %. Stage 2 diastolic dysfunction. Mild eccentric left ventricular hypertrophy. Mild mitral annular calcification. Mild (1+) mitral valve insufficiency. The left atrium is moderately enlarged. Mild pulmonary hypertension. Ordering Physician: Fiorella Ramos Performed By: Leonidas Davis RCS
[2023-09-24] MEDS: Metoprolol(XL)Succ 25 MG Tablet PO (18:45)
[2023-09-24 20:30] LABS: Troponin-I HS 162 pg/mL (3.0-78.0)
[2023-09-24] MEDS: traZODone 50 MG Tablet PO (21:28)
[2023-09-24] MEDS: Gabapentin 400 MG Capsule PO (21:29)
[2023-09-24] MEDS: Pantoprazole Sodium 20 MG Tablet PO (21:29)
[2023-09-24] MEDS: APIXABAN 2.5 MG TABLET (WCH) PO (21:29)
[2023-09-24] MEDS: Acetaminophen 325 MG Tablet 650 MG PO (22:28)
[2023-09-25 03:45] VITALS: BP 123/67; PULSE 64; RESP 18; TEMP 36.4; O2SAT 98
[2023-09-25 06:00] VITALS: BMI 27.1
[2023-09-25 06:24] VITALS: BP 136/67; PULSE 62; RESP 18; TEMP 36.7; O2SAT 97
[2023-09-25 06:35] LABS: Absolute Lymphocyte Count 0.92 X10^3/uL (0.83-4.51); Absolute Neutrophil Count 6.6 X10^3/uL (2.0-7.7); Hematocrit 36.8 % (40-54); Hemoglobin 11.9 g/dL (13.0-16.5); Lymphocyte # 0.92 X10^3/ul (0.83-4.51); Lymphocyte % 11.8 % (19-41); Mean Corp Hgb Conc 32.3 g/dL (32-36); Mean Corpuscular Hgb 28.7 pg (27.0-32.0); Mean Corpuscular Volume 88.9 fL (80-94); Mean Platelet Vol. 12.9 fl (6.2-12.0); Monocyte# 0.21 X10^3/uL; Monocyte% 2.7 % (0-10); NRBC Flagged by Analyzer 0 % (0-5); Neutrophil # 6.56 X10^3/uL (2.7-7.7); Neutrophil % 84.3 % (47-70); POSITIVE COUNT YES; Platelet Count 97 K/mm3 (150-450); RBC Distribution Width CV 13.9 % (11.6-14.6); RBC Distribution Width SD 45.1 fl (35.1-43.9); Red Blood Count 4.14 M/mm3 (4.6-6.2); White Blood Count 7.8 K/mm3 (4.4-11.0)
[2023-09-25 06:39] LABS: Differential Indicated SCAN CRITERIA MET
[2023-09-25 07:11] LABS: Anion Gap 5 (5-15); BUN 25 mg/dL (7-18); BUN/Creat Ratio 18.2 RATIO (10-20); Calcium,Total 9.5 mg/dL (8.5-10.1); Chloride 114 mmol/L (98-107); Cholesterol 142 mg/dL (200); Creatinine, Serum 1.37 mg/dL (0.70-1.30); EST Glomerular Filtration Rate 53 mL/min (>60); Est Glom Filt Rate - Afr Amer 64 mL/min (>60); Estimated Creatinine Clearance 36.86 ml/min; Glucose 119 mg/dL (74-106); High Density Lipoprotein 65 mg/dL; Magnesium 2.5 mg/dL (1.6-2.6); Potassium 4.2 mmol/L (3.5-5.1); Sodium Level 141 mmol/L (136-145); Thyroid Stim Hormone (TSH) 0.76 uIU/mL (0.358-3.74); Triglycerides 91 mg/dL; Very Low Density Lipoprotein 18 mg/dL (5-40)
[2023-09-25 08:16] LABS: Differential Comment SCANNED
[2023-09-25 08:17] LABS: Platelet Estimate MOD DEC (ADEQ)
[2023-09-25 10:03] VITALS: BP 147/74; PULSE 66; RESP 14; TEMP 36.6; O2SAT 95
[2023-09-25] MEDS: Pantoprazole Sodium 20 MG Tablet PO ×2 (10:06→22:06)
[2023-09-25] MEDS: Isosorbide Mononitrate 30 MG Tablet 15 MG PO (10:06)
[2023-09-25] MEDS: Ezetimibe 10 MG Tablet PO (10:06)
[2023-09-25] MEDS: APIXABAN 2.5 MG TABLET (WCH) PO ×2 (10:06→21:18)
[2023-09-25 10:07] VITALS: PULSE 66
[2023-09-25] MEDS: Clopidogrel Bisulfate 75 MG Tablet PO (10:07)
[2023-09-25] MEDS: Atorvastatin Calcium 20 MG Tablet PO (10:07)
[2023-09-25] MEDS: Metoprolol(XL)Succ 50 MG Tablet PO (10:07)
[2023-09-25] MEDS: Gabapentin 400 MG Capsule PO ×2 (10:16→21:18)
--- NOTE | 2023-09-25 10:35 | CASEMGMT ---
RN CM Face to Face with patient for initial transition planning/care coordination assessment. RN CM introduced self and role at [facility]. Patient lying in bed, alert and oriented. Patient willing to participate in assessment and is able to answer all questions appropriately. Care providers, pharmacy, and demographics verified. Patient wishes to discharge home, denies need for home health at this time. Patient states he has no further needs or concerns at this time. CM to follow for discharge planning needs that may arise. PCP: Parveen ALEJANDRA Specialists: Dr. [facility] Valet Attendant Preferred Pharmacy: [facility] Insurance: [employer] Prescription Benefit: yes Living Will/HPOA: yes, SAURABH Hansen LNOK: , daughter, son Living Arrangements: Patient lives with in a single story duplex with 2 steps to enter. Patient is independent at home and able to ambulate stairs. Transportation: self, daughter DME/HHC: Patient has shower chair, raised toilet, walker. No previous HHC or SNF. Disposition Plan: Patient to discharge home with family support and follow-up plans in place. Stephanie WATKINS, RN, CM
[2023-09-25 14:32] VITALS: BP 133/73; PULSE 85; RESP 16; TEMP 36.4; O2SAT 95
--- NOTE | 2023-09-25 15:15 | PCM.CONS.C ---
Documented by User: Paris ALEJANDRA, PA 09/25/23 16:26 Assessment & Plan Assessment/Plan (1) CAD (coronary artery disease): (2) Hypertension: (3) GERD (gastroesophageal reflux disease): (4) Atrial fibrillation with RVR: HPI Consult Data Date of Consult: 09/25/23 HPI Narrative HPI Narrative: ANGIE DUTTON, is a 83 M who presented to [facility] ER on 09/24/23 with CP. He states that in the retrosternal area. He states at about 11 AM while he was at the grocery store. Last about 10 seconds. Patient states he did fine. He went home and started to walk the dog with the discomfort came back and he noticed that his heart is racing. Pt was noted to be in Afib with RVR. This is a new finding. He was admitted to PCU. His troponins trended 40/82/162. BNP 548. He does have a history of CAD status post CABG and stenting, TIA, hypertension, GERD. [facility] Medical History (Updated 09/24/23 @ 18:28 by Stephanie Vivas) CAD (coronary artery disease) Former tobacco use GERD (gastroesophageal reflux disease) History of chronic hypertension HLD (hyperlipidemia) Hypertension Kidney disease Myocardial infarct Right leg weakness Vertigo Home Medications clopidogrel 75 mg tablet 75 mg PO DAILY anti platelet 08/23/19 [History Last Taken 06/25/21] isosorbide mononitrate 30 mg tablet,extended release 24 hr 15 mg PO DAILY HEART 08/23/19 [History Last Taken 06/25/21] metoprolol succinate 25 mg tablet,extended release 24 hr 25 mg PO DAILY blood pressure 08/23/19 [History Last Taken 06/25/21] cyclobenzaprine 5 mg tablet 5 mg PO QHS MUSCLE 06/25/21 [History Last Taken 06/24/21] gabapentin 400 mg capsule 400 mg PO BID NERVE PAIN 06/25/21 [History Last Taken 06/25/21] pantoprazole 20 mg tablet,delayed release 20 mg PO BID GERD 06/25/21 [History Last Taken 06/25/21] simvastatin 40 mg tablet 40 mg PO DAILY CHOLESTEROL 06/25/21 [History Last Taken 06/24/21] trazodone 50 mg tablet 50 mg PO QHS SLEEP 06/25/21 [History Last Taken 06/24/21] ezetimibe 10 mg tablet 10 mg PO DAILY 09/24/23 [History Last Taken Unknown] Allergy/AdvReac Type Severity Reaction Status Date / Time Sulfa (Sulfonamide Allergy Unknown Verified 09/24/23 14:02 Antibiotics) Family History Mother Heart disease Father Heart disease Surgical History H/O right heart catheterization S/p bilateral carpal tunnel release S/P bilateral cataract extraction S/P bilateral foot surgery S/P CABG x 3 S/P tonsillectomy and adenoidectomy Status post arthroscopic knee surgery Stented coronary artery Social History household members: spouse Smoking Status: Former smoker how long ago did patient quit smoking: Quit when he was 44 y/o, 1/2 ppd since 10 years old. alcohol intake: never substance use type: does not use Risk Stratification Risk Stratification Applicable: No Aspirin Use in the Past 7 Days: Yes Severe Angina (>/= episodes in 24 hours): No EKG ST Changes >/= 0.5mm: No Positive Cardiac Marker: Yes Objective Data Vital Signs: Vital Signs Temp Pulse Resp BP Pulse Ox O2 Del Method 97.5 F L 85 16 133/73 H 95 Room Air 09/25/23 14:32 09/25/23 14:32 09/25/23 14:32 09/25/23 14:32 09/25/23 14:32 09/25/23 14:32 Oxygen Delivery Method Room Air Weight: 173 lb 4.533 oz Body Mass Index (BMI) 27.1 Intake & Output: Intake and Output for Last 24 Hours 09/23/23 09/24/23 09/25/23 23:59 23:59 23:59 Intake Total 1000 / 1000 240 / 240 Output Total 250 / 250 Balance 1000 / 1000 -10 Lab / Micro Data 09/25/23 05:30 09/25/23 05:30 Labs: Laboratory Results - last 24 hr 09/24/23 14:10: PT 13.5, INR 1.0 09/24/23 14:55: Lactic Acid 1.7 09/24/23 15:11: Urine Color Yellow, Urine Clarity Clear, Urine pH 6.0, Ur Specific [place] 1.010, Urine Protein 15 H, Urine Glucose (UA) Normal, Urine Ketones Negative, Urine Occult Blood 50 H, Urine Nitrite Negative, Urine Bilirubin Negative, Urine Urobilinogen Normal, Ur Leukocyte Esterase Negative, Urine RBC 0 SEEN, Urine WBC 0 SEEN, Ur Squamous Epith Cells 0 SEEN, Urine Bacteria 0 SEEN, Urine Mucus 0 SEEN 09/24/23 16:42: Troponin I High Sens 82 H, Procalcitonin < 0.01 09/24/23 19:47: Troponin I High Sens 162 H* 09/25/23 05:30: WBC 7.8, RBC 4.14 L, Hgb 11.9 L, Hct 36.8 L, MCV 88.9, MCH 28.7, MCHC 32.3, RDW Std Deviation 45.1 H, RDW Coeff of Jaqueline 13.9, Plt Count 97 L, MPV 12.9 H, Immature Gran % (Auto) 1.200 H, Neut % (Auto) 84.3 H, Lymph % (Auto) 11.8 L, [place] % (Auto) 2.7, Eos % (Auto) 0.0, Baso % (Auto) 0.0, Absolute Neuts (auto) 6.6, Absolute Lymphs (auto) 0.92, Nucleated RBC % 0, Differential Comment SCANNED, Platelet Estimate MOD DEC, Sodium 141, Potassium 4.2, Chloride 114 H, Carbon Dioxide 22.0, Anion Gap 5, BUN 25 H, Creatinine 1.37 H, Estim Creat Clear Calc 36.86, Est GFR (MDRD) Af Amer 64, Est GFR (MDRD) Non-Af 53 L, BUN/Creatinine Ratio 18.2, Glucose 119 H, Calcium 9.5, Magnesium 2.5, Triglycerides 91, Cholesterol 142, LDL Cholesterol 59, VLDL Cholesterol 18, HDL Cholesterol 65, TSH 0.76 Micro: Microbiology 09/24/23 19:25 Mucosa - Nasopharyngeal Respiratory Panel (PCR) - Final 09/24/23 19:25 Mucosa - Nasopharyngeal SARS-CoV-2, Influenza & RSV (PCR) - Final Cardiology Labs/Tests 09/24/23 14:10: PT 13.5, INR 1.0 09/24/23 14:55: Lactic Acid 1.7 09/24/23 15:11: Urine Color Yellow, Urine Clarity Clear, Urine pH 6.0, Ur Specific [place] 1.010, Urine Protein 15 H, Urine Glucose (UA) Normal, Urine Ketones Negative, Urine Occult Blood 50 H, Urine Nitrite Negative, Urine Bilirubin Negative, Urine Urobilinogen Normal, Ur Leukocyte Esterase Negative, Urine RBC 0 SEEN, Urine WBC 0 SEEN 09/25/23 05:30: WBC 7.8, RBC 4.14 L, Hgb 11.9 L, Hct 36.8 L, MCV 88.9, MCH 28.7, MCHC 32.3, Plt Count 97 L, MPV 12.9 H, Immature Gran % (Auto) 1.200 H, Neut % (Auto) 84.3 H, Lymph % (Auto) 11.8 L, [place] % (Auto) 2.7, Eos % (Auto) 0.0, Baso % (Auto) 0.0, Absolute Neuts (auto) 6.6, Nucleated RBC % 0, Sodium 141, Potassium 4.2, Chloride 114 H, Carbon Dioxide 22.0, Anion Gap 5, BUN 25 H, Creatinine 1.37 H, Est GFR (MDRD) Af Amer 64, Est GFR (MDRD) Non-Af 53 L, BUN/Creatinine Ratio 18.2, Glucose 119 H, Calcium 9.5, Magnesium 2.5, Triglycerides 91, Cholesterol 142, LDL Cholesterol 59, VLDL Cholesterol 18, HDL Cholesterol 65 Rhythm: EKG: ECHO: Stress Test: Cardiac Cath: PCI: CT Surgery: Holter monitor: EPS: PPM: CXR: Chest CT Scan: Documented by User: Dr. Jah Ortiz MD 09/25/23 17:18 Assessment & Plan Assessment/Plan (1) CAD (coronary artery disease): (2) Hypertension: (3) GERD (gastroesophageal reflux disease): (4) Atrial fibrillation with RVR: PLAN: Plan Cardiac care plan recommendation; 83-year-old patient with history of A-fib/RVR Patient had history of CAD with status post CABG and stenting Had TIA Hypertension, GERD presentation with retrosternal chest discomfort. And he had palpitation with racing of his heart. When he was seen in the ED his heart rate was in the range of around 100 with underlying atrial fibrillation His rate did improve with the calcium channel bryan Cardizem. Based on his [id number] score high risk for stroke And is elderly with elevated creatinine agree with the low-dose Eliquis 2.5 mg twice daily He had other medical problems with history of GERD, hypertension osteoarthritis of the hip and CKD From cardiac standpoint would recommend to continue on the anticoagulation as well as rate control. Patient had a history of CAD with prior CABG and will Covid recommend to continue platelet with the change to beta-bryan which was increased to metoprolol Plavix and succinate 50 twice daily Statin and Zetia with a target LDL level of around 70sWith atorvastatin, long-acting /isosorbide mononitrate From cardiac standpoint would recommend outpatient follow-up. Once his rate is controlled he can be workup with Myocardial perfusion study . HPI Consult Data Date of Consult: 09/25/23 [facility] Medical History (Updated 09/24/23 @ 18:28 by Stephanie Vivas) CAD (coronary artery disease) Former tobacco use GERD (gastroesophageal reflux disease) History of chronic hypertension HLD (hyperlipidemia) Hypertension Kidney disease Myocardial infarct Right leg weakness Vertigo Home Medications clopidogrel 75 mg tablet 75 mg PO DAILY anti platelet 08/23/19 [History Last Taken 06/25/21] isosorbide mononitrate 30 mg tablet,extended release 24 hr 15 mg PO DAILY HEART 08/23/19 [History Last Taken 06/25/21] metoprolol succinate 25 mg tablet,extended release 24 hr 25 mg PO DAILY blood pressure 08/23/19 [History Last Taken 06/25/21] cyclobenzaprine 5 mg tablet 5 mg PO QHS MUSCLE 06/25/21 [History Last Taken 06/24/21] gabapentin 400 mg capsule 400 mg PO BID NERVE PAIN 06/25/21 [History Last Taken 06/25/21] pantoprazole 20 mg tablet,delayed release 20 mg PO BID GERD 06/25/21 [History Last Taken 06/25/21] simvastatin 40 mg tablet 40 mg PO DAILY CHOLESTEROL 06/25/21 [History Last Taken 06/24/21] trazodone 50 mg tablet 50 mg PO QHS SLEEP 06/25/21 [History Last Taken 06/24/21] ezetimibe 10 mg tablet 10 mg PO DAILY 09/24/23 [History Last Taken Unknown] Allergy/AdvReac Type Severity Reaction Status Date / Time Sulfa (Sulfonamide Allergy Unknown Verified 09/24/23 14:02 Antibiotics) Family History Mother Heart disease Father Heart disease Surgical History H/O right heart catheterization S/p bilateral carpal tunnel release S/P bilateral cataract extraction S/P bilateral foot surgery S/P CABG x 3 S/P tonsillectomy and adenoidectomy Status post arthroscopic knee surgery Stented coronary artery Social History household members: spouse Smoking Status: Former smoker how long ago did patient quit smoking: Quit when he was 44 y/o, 1/2 ppd since 10 years old. alcohol intake: never substance use type: does not use Physical Exam Cardio Cardio Narrative: Seen and evaluated and examined at bedside Underlying cardiac rhythm is A-fib Cardiac exam S1-S2 is regular Chest exam is clear to auscultation Examination lower extremity no lower extremity edema noted. Lab / Micro Data 09/25/23 05:30 09/25/23 05:30
--- NOTE | 2023-09-25 17:04 | PN.HOSP_ITS ---
Reason for Visit Reason for Visit: Diagnoses Essential (primary) hypertension (09/24/23) Atherosclerotic heart disease of [place] coronary artery without angina pectoris (09/24/23) Unspecified atrial fibrillation (09/24/23) Gastro-esophageal reflux disease without esophagitis (09/24/23) Unilateral primary osteoarthritis, right hip (09/24/23) Subjective Subjective Patient was seen and examined today, he appears to be in sinus rhythm with PACs, he is on room air at this time, I had cardiology see him concerning his bump in his cardiac enzymes, they feel that he can be treated medically and not undergo any diagnostic testing. Objective Data Objective Data Vital Signs: Vital Signs Temp Pulse Resp BP Pulse Ox O2 Del Method 97.5 F L 85 16 133/73 H 95 Room Air 09/25/23 14:32 09/25/23 14:32 09/25/23 14:32 09/25/23 14:32 09/25/23 14:32 09/25/23 14:32 Oxygen Delivery Method Room Air Weight: 78.6 kg Body Mass Index (BMI) 27.1 Intake & Output: Intake and Output for Last 24 Hours 09/23/23 09/24/23 09/25/23 23:59 23:59 23:59 Intake Total 1000 / 1000 360 / 360 Output Total 250 / 250 Balance 1000 / 1000 110 / 110 Lab / Micro Data 09/25/23 05:30 09/25/23 05:30 Labs: Laboratory Results - last 24 hr 09/24/23 16:42: Troponin I High Sens 82 H, Procalcitonin < 0.01 09/24/23 19:47: Troponin I High Sens 162 H* 09/25/23 05:30: WBC 7.8, RBC 4.14 L, Hgb 11.9 L, Hct 36.8 L, MCV 88.9, MCH 28.7, MCHC 32.3, RDW Std Deviation 45.1 H, RDW Coeff of [place] 13.9, Plt Count 97 L, MPV 12.9 H, Immature Gran % (Auto) 1.200 H, Neut % (Auto) 84.3 H, Lymph % (Auto) 11.8 L, [place] % (Auto) 2.7, Eos % (Auto) 0.0, Baso % (Auto) 0.0, Absolute Neuts (auto) 6.6, Absolute Lymphs (auto) 0.92, Nucleated RBC % 0, Differential Comment SCANNED, Platelet Estimate MOD DEC, Sodium 141, Potassium 4.2, Chloride 114 H, Carbon Dioxide 22.0, Anion Gap 5, BUN 25 H, Creatinine 1.37 H, Estim Creat Clear Calc 36.86, Est GFR (MDRD) Af Amer 64, Est GFR (MDRD) Non-Af 53 L, BUN/Creatinine Ratio 18.2, Glucose 119 H, Calcium 9.5, Magnesium 2.5, Triglycerides 91, Cholesterol 142, LDL Cholesterol 59, VLDL Cholesterol 18, HDL Cholesterol 65, TSH 0.76 Micro: Microbiology 09/24/23 19:25 Mucosa - Nasopharyngeal Respiratory Panel (PCR) - Final 09/24/23 19:25 Mucosa - Nasopharyngeal SARS-CoV-2, Influenza & RSV (PCR) - Final Radiography Diagnostic Testing: Radiology Impression Echocardiogram 09/24/23 17:56 Interpretation Summary The estimated ejection fraction is 65 %. Stage 2 diastolic dysfunction. Mild eccentric left ventricular hypertrophy. Mild mitral annular calcification. Mild (1+) mitral valve insufficiency. The left atrium is moderately enlarged. Mild pulmonary hypertension. Ordering Physician: Fiorella Ramos Performed By: Leonidas Davis RCS Physical Exam Const alert, oriented x3, no apparent distress, average body habitus and healthy appearing General Appearance: cooperative, well kempt and well developed Orientation / Consciousness: awake, oriented to person, oriented to place and oriented to time HEENT normocephalic, head/scalp atraumatic and moist oral mucous membranes Eyes PERRL, EOMs intact bilaterally and conjunctivae normal Neck supple, no JVD, thyroid normal and no carotid bruits General: trachea midline Resp normal respiratory effort, no retractions, no use of accessory muscles and clear to auscultation bilaterally Auscultation: Negative for rales, rhonchi or wheezes Cardio regular rate, regular rhythm, S1 normal heart sound, S2 normal heart sound, no murmurs, no rub and no gallops Cardio Narrative: Occasional ectopic beats were noted GI normal to inspection, nondistended, normoactive bowel sounds, soft to palpation, non-tender and non-distended Extremity no clubbing, cyanosis or edema Skin no rashes or lesions noted General Skin Exam: no breakdown Neuro oriented x3, CN's II-XII intact bilaterally, moves all extremities, no focal motor deficits and no sensory deficits noted Sensorium / Orientation: awake and alert Speech: speech normal Psych affect normal Assessment & Plan Assessment/Plan (1) Atrial fibrillation with RVR: PLAN: Plan 1. Atrial fibrillation with RVR-now converted to sinus rhythm, continue present rate limiting medications and Eliquis. #2 elevated cardiac enzymes-etiology unclear, cardiology has elected to treat the patient medically and not perform a stress test or cardiac catheterization. #3 essential hypertension-patient will remain on his current medications, blood pressure medication will be adjusted accordingly #4 coronary artery disease-this appears stable at this time, patient will remain on his current medication #5 chronic kidney disease stage IIIa-complicates care, medical course, recovery, and prognosis, monitor BMP as needed Total clinical time spent by myself addressing the patient's medical issues, reviewing all of his data, and collaborating with patient's care team: 35 minutes
[2023-09-25 21:00] VITALS: BP 149/80; PULSE 64; RESP 18; TEMP 36.8; O2SAT 96
[2023-09-25] MEDS: Acetaminophen 325 MG Tablet 650 MG PO (21:19)
[2023-09-25] MEDS: traZODone 50 MG Tablet PO (21:19)
[2023-09-26 03:45] VITALS: BP 135/67; PULSE 60; RESP 18; TEMP 36.8; O2SAT 97
[2023-09-26 05:47] VITALS: BMI 27.1
[2023-09-26 08:21] VITALS: BP 159/79; PULSE 63; RESP 14; TEMP 36.6; O2SAT 94
[2023-09-26 08:23] VITALS: PULSE 63
[2023-09-26] MEDS: APIXABAN 2.5 MG TABLET (WCH) PO (08:23)
[2023-09-26] MEDS: Metoprolol(XL)Succ 50 MG Tablet PO (08:23)
[2023-09-26] MEDS: Pantoprazole Sodium 20 MG Tablet PO (08:23)
[2023-09-26] MEDS: Clopidogrel Bisulfate 75 MG Tablet PO (08:24)
[2023-09-26] MEDS: Ezetimibe 10 MG Tablet PO (08:24)
[2023-09-26] MEDS: Isosorbide Mononitrate 30 MG Tablet 15 MG PO (08:25)
[2023-09-26] MEDS: Atorvastatin Calcium 20 MG Tablet PO (08:25)
[2023-09-26] MEDS: Gabapentin 400 MG Capsule PO (08:29)
--- NOTE | 2023-09-26 10:23 | DCINST_ITS ---
Discharge Instructions Diet Discharge Diet: No restrictions Activity Discharge Activity: Return to Normal Activity Weight Bearing Status: Full weight bearing Follow Up Care Test Results: Test results from this visit will be discussed in further detail at your follow- up appointment, if applicable. Discharge Plan Admission Admit Date/Time: 09/24/23 16:06 Primary Reason for Your Visit: atrial fibrillation Attending Provider: Kedar Dumont Primary Care Provider: Lizeth Saini Consulting Providers: Fiorella Ramos; Jah Ortiz Instructions Additional Instructions / Restrictions: Do not take aspirin ,Ibuprofen, or Alleve while on Eliquis You may bruise easier or bleed from a cut because you are on clopidogrel and Eliquis Discharge Orders/Prescriptions Prescriptions: New metoprolol succinate 50 mg Tablet Extended Release 24 Hr 50 mg PO DAILY Qty: 30 0RF Eliquis 5 mg tablet 5 mg PO BID Qty: 60 0RF Continued isosorbide mononitrate 30 MG tablet extended release 24 hr 15 mg PO DAILY clopidogrel 75 MG tablet 75 mg PO DAILY metoprolol succinate 25 MG tablet extended release 24 hr 25 mg PO DAILY trazodone 50 mg tablet 50 mg PO QHS gabapentin 400 mg capsule 400 mg PO BID simvastatin 40 mg tablet 40 mg PO DAILY pantoprazole 20 mg tablet,delayed release (DR/EC) 20 mg PO BID cyclobenzaprine 5 mg tablet 5 mg PO QHS ezetimibe 10 mg tablet 10 mg PO DAILY Referrals / Follow Up: Lizeth Saini PA [Primary Care Provider] - Within 2 Weeks Disposition Disposition (needs filled in before D/C Order can be placed): Home, Self Care
[2023-09-26 11:25] LABS: Anion Gap 7 (5-15); BUN 25 mg/dL (7-18); BUN/Creat Ratio 19.1 RATIO (10-20); Calcium,Total 9.2 mg/dL (8.5-10.1); Chloride 113 mmol/L (98-107); Creatinine, Serum 1.31 mg/dL (0.70-1.30); EST Glomerular Filtration Rate 55 mL/min (>60); Est Glom Filt Rate - Afr Amer 67 mL/min (>60); Estimated Creatinine Clearance 38.54 ml/min; Glucose 182 mg/dL (74-106); Potassium 3.5 mmol/L (3.5-5.1); Sodium Level 141 mmol/L (136-145)
--- NOTE | 2023-09-26 11:33 | PCM.DC.SUM ---
Providers Date of Admission: 09/24/23 Date of Discharge: 09/26/23 Primary Care Physician: [place] Perera Consultations 09/25/23 08:48 Consult: Cardiology Routine Consulting Provider: Jah Ortiz Reason for Consult: elevated troponins EMERGENT Consult: No MD Notified: Yes Date Notified: 09/25/23 Time Notified: 08:48 Method of Notification: Verbal Reason For Visit: AFIB W/ RVR Diagnosis Discharge Diagnosis (1) Atrial fibrillation with RVR: Status: Acute Code(s): I48.91 - Unspecified atrial fibrillation Plan 1. Atrial fibrillation with RVR-now converted to sinus rhythm, continue present rate limiting medications and Eliquis. #2 elevated cardiac enzymes-etiology unclear, cardiology has elected to treat the patient medically and not perform a stress test or cardiac catheterization. #3 essential hypertension-patient will remain on his current medications, blood pressure medication will be adjusted accordingly #4 coronary artery disease-this appears stable at this time, patient will remain on his current medication #5 chronic kidney disease stage IIIa-complicates care, medical course, recovery, and prognosis, monitor BMP as needed Total clinical time spent by myself addressing the patient's medical issues, reviewing all of his data, and collaborating with patient's care team: 35 minutes Medications at Discharge Home Medications clopidogrel 75 mg tablet 75 mg PO DAILY anti platelet 08/23/19 isosorbide mononitrate 30 mg tablet,extended release 24 hr 15 mg PO DAILY HEART 08/23/19 metoprolol succinate 25 mg tablet,extended release 24 hr 25 mg PO DAILY blood pressure 08/23/19 cyclobenzaprine 5 mg tablet 5 mg PO QHS MUSCLE 06/25/21 gabapentin 400 mg capsule 400 mg PO BID NERVE PAIN 06/25/21 pantoprazole 20 mg tablet,delayed release 20 mg PO BID GERD 06/25/21 simvastatin 40 mg tablet 40 mg PO DAILY CHOLESTEROL 06/25/21 trazodone 50 mg tablet 50 mg PO QHS SLEEP 06/25/21 ezetimibe 10 mg tablet 10 mg PO DAILY 09/24/23 apixaban 5 mg tablet (Eliquis) 5 mg PO BID #60 tabs 09/26/23 metoprolol succinate 50 mg tablet,extended release 24 hr 50 mg PO DAILY #30 tabs 09/26/23 Hospital Course Operations None Procedures 2-D Echocardiogram Summary of Care Provided Minutes Spent on Discharge: 31 Hospital Course: This 83-year-old white male was seen in the emergency room at [facility] with chief complaint of palpitations and chest discomfort. He has a history of coronary artery disease with bypass and stenting in the past. Evaluation in the emergency room initially noted the patient's heart rate to be in the low 100s, patient had elevated white blood cell count at 20.2, beta nitric peptide was elevated at 548 and his troponin was within normal limits. Chest x-ray was obtained and it showed increased markings at the left lung base with blunting of the left costophrenic angle, rhythm strip indicated A-fib with RVR, EKG showed no evidence of ischemic changes. Patient was given IV Cardizem in the emergency room and this improved his heart rate, patient was admitted to PCU for new onset A-fib with RVR, patient's home metoprolol was increased to 50 mg daily, patient was started on Eliquis and an echocardiogram was performed which revealed ejection fraction and diastolic dysfunction. Patient's second and third troponins were elevated with the highest troponin being 162. Patient was seen in consultation by cardiology, they did not feel the patient needed a further workup, patient converted to sinus rhythm. On 09/26/2023, patient was seen and examined: On examination he appeared in good health and spirits. Vital signs as documented. Skin warm and dry and without overt rashes. Neck without JVD, neck was supple, trachea midline, thyroid was normal. Lungs clear bilaterally, normal air movement was noted. Heart exam notable for regular rhythm, normal sounds and absence of murmurs, rubs or gallops. Abdomen unremarkable and without evidence of organomegaly, masses, or abdominal aortic enlargement. Bowel sounds are present, abdomen is not distended. Extremities nonedematous, no cyanosis was noted, no clubbing was noted. Neuro: Cranial nerves II through XII are grossly intact, no focal motor deficits were noted, sensation to light touch and pinprick intact, motor exam 5/5 throughout. Psych: Patient is alert and oriented x3, he does not appear anxious or depressed, he does not appear agitated. Patient was discharged home in stable condition on 09/26/2023. Weight / BMI Weight Weight: 78.6 kg Body Mass Index (BMI) 27.1 ABG / Lab / Microbiology Data 09/25/23 05:30 09/26/23 10:41 Laboratory: Laboratory Results - last 24 hr 09/26/23 10:41: Sodium 141, Potassium 3.5, Chloride 113 H, Carbon Dioxide 21.0, Anion Gap 7, BUN 25 H, Creatinine 1.31 H, Estim Creat Clear Calc 38.54, Est GFR (MDRD) Af Amer 67, Est GFR (MDRD) Non-Af 55 L, BUN/Creatinine Ratio 19.1, Glucose 182 H, Calcium 9.2 Microbiology: Microbiology 09/24/23 15:11 Urine, Clean Catch Urine Culture - Preliminary Culture exhibits no growth. 09/24/23 15:00 Blood Culture (Wb) - Right Forearm Blood Culture - Preliminary No growth in 48 hours. 09/24/23 14:55 Blood Culture (Wb) - Anticubital Left Blood Culture - Preliminary No growth in 48 hours. 09/24/23 19:25 Mucosa - Nasopharyngeal Respiratory Panel (PCR) - Final 09/24/23 19:25 Mucosa - Nasopharyngeal SARS-CoV-2, Influenza & RSV (PCR) - Final Radiography Diagnostic Testing: Radiology Impression Echocardiogram 09/24/23 17:56 Interpretation Summary The estimated ejection fraction is 65 %. Stage 2 diastolic dysfunction. Mild eccentric left ventricular hypertrophy. Mild mitral annular calcification. Mild (1+) mitral valve insufficiency. The left atrium is moderately enlarged. Mild pulmonary hypertension. Ordering Physician: Fiorella Ramos Performed By: Leonidas Davis RCS D/C Instructions Discharge Diet: No restrictions Weight Bearing Status: Full weight bearing Meaningful Use Info Meaningful Use Diagnoses (Choose all that apply): None applicable Discharge Plan Admission Admit Date/Time: 09/24/23 16:06 Primary Reason for Your Visit: atrial fibrillation Attending Provider: Kedar Dumont Primary Care Provider: Lizeth Saini Consulting Providers: Fiorella Ramos; Jah Ortiz Instructions Additional Instructions / Restrictions: Do not take aspirin ,Ibuprofen, or Alleve while on Eliquis You may bruise easier or bleed from a cut because you are on clopidogrel and Eliquis Discharge Orders/Prescriptions Prescriptions: New metoprolol succinate 50 mg Tablet Extended Release 24 Hr 50 mg PO DAILY Qty: 30 0RF Eliquis 5 mg tablet 5 mg PO BID Qty: 60 0RF Continued isosorbide mononitrate 30 MG tablet extended release 24 hr 15 mg PO DAILY clopidogrel 75 MG tablet 75 mg PO DAILY metoprolol succinate 25 MG tablet extended release 24 hr 25 mg PO DAILY trazodone 50 mg tablet 50 mg PO QHS gabapentin 400 mg capsule 400 mg PO BID simvastatin 40 mg tablet 40 mg PO DAILY pantoprazole 20 mg tablet,delayed release (DR/EC) 20 mg PO BID cyclobenzaprine 5 mg tablet 5 mg PO QHS ezetimibe 10 mg tablet 10 mg PO DAILY Referrals / Follow Up: Lizeth Saini PA [Primary Care Provider] - Within 2 Weeks Disposition Disposition (needs filled in before D/C Order can be placed): Home, Self Care Charges/Coding Visit Charges Inpatient E&M: 87992 Disch Hosp >30min
--- NOTE | 2023-09-26 11:54 | CASEMGMT ---
Hospitalist states he provided pt with [employer] savings card and explanation.
== END 2023-09-26 12:53 | disposition home or self-care (01) | DRG 310 ==
LOC: ED 16:22 → PCU 16:33
PROVIDERS: Admitting Provider Internal Medicine; Emergency Provider Student in an Organized Health Care Education/Training Program; PCP Physician Assistant; Visit Provider Internal Medicine
DX: I48.91 Unspecified atrial fibrillation (principal); E78.5 Hyperlipidemia, unspecified; Z95.1 Presence of aortocoronary bypass graft; N18.31 Chronic kidney disease, stage 3a; I12.9 Hypertensive chronic kidney disease with stage 1 through stage 4 chronic kidney disease, or unspecified chronic kidney disease; K21.9 Gastro-esophageal reflux disease without esophagitis; M16.11 Unilateral primary osteoarthritis, right hip; I25.10 Atherosclerotic heart disease of native coronary artery without angina pectoris; I25.2 Old myocardial infarction; R79.89 Other specified abnormal findings of blood chemistry; Z79.02 Long term (current) use of antithrombotics/antiplatelets; Z79.899 Other long term (current) drug therapy; Z87.891 Personal history of nicotine dependence; Z86.73 Personal history of transient ischemic attack (TIA), and cerebral infarction without residual deficits; Z95.5 Presence of coronary angioplasty implant and graft
CPT/HCPCS: 20610; 36415; 71045; 77002; 80048; 80061; 81001; 83605; 83735; 83880; 84145; 84443; 84484; 85025; 85379; 85610; 87040; 87086; 87631; 87633; 93005; 93306; 99285; J7030; Q9965; A4216

== ENCOUNTER 2024-03-21 01:26 | Emergency (ER) | payer MEDICARE, SELFPAY ==
[2024-03-21 01:27] VITALS: BP 143/81; PULSE 78; RESP 20; TEMP 36.6; O2SAT 100; BMI 25.0
--- NOTE | 2024-03-21 01:52 | EX.ED.DYSGE1 ---
HPI History of Present Illness Chief Complaint: Bite Informant: patient and EMS Narrative Narrative: Patient is a 83-year-old male with history of paroxysmal atrial fibrillation currently on Eliquis and hypertension. He states roughly 1 hour prior to arrival he rolled over in bed and startled his small dog who bit him in the right forearm. He states that he was bleeding everywhere and could not get the bleeding to stop and therefore called 911 and he was brought in for evaluation. Patient reports a single wound to his right forearm and denies any other injuries [facility] Medical History (Updated 03/21/24 @ 01:[address] Jack Stout, DO) Kidney disease GERD (gastroesophageal reflux disease) Former tobacco use HLD (hyperlipidemia) CAD (coronary artery disease) History of chronic hypertension Right leg weakness Myocardial infarct Hypertension Vertigo Home Medications ?Medication ?Instructions ?Recorded ?Last Taken ?Type clopidogrel 75 mg tablet 75 mg PO DAILY anti platelet 08/23/19 06/25/21 History isosorbide mononitrate 30 mg 15 mg PO DAILY HEART 08/23/19 06/25/21 History tablet,extended release 24 hr metoprolol succinate 25 mg 25 mg PO DAILY blood pressure 08/23/19 06/25/21 History tablet,extended release 24 hr cyclobenzaprine 5 mg tablet 5 mg PO QHS MUSCLE 06/25/21 06/24/21 History gabapentin 400 mg capsule 400 mg PO BID NERVE PAIN 06/25/21 06/25/21 History pantoprazole 20 mg tablet,delayed 20 mg PO BID GERD 06/25/21 06/25/21 History release simvastatin 40 mg tablet 40 mg PO DAILY CHOLESTEROL 06/25/21 06/24/21 History trazodone 50 mg tablet 50 mg PO QHS SLEEP 06/25/21 06/24/21 History ezetimibe 10 mg tablet 10 mg PO DAILY 09/24/23 Unknown History apixaban 5 mg tablet (Eliquis) 5 mg PO BID #60 tabs 09/26/23 Unknown Rx metoprolol succinate 50 mg 50 mg PO DAILY #30 tabs 09/26/23 Unknown Rx tablet,extended release 24 hr amoxicillin 875 mg-potassium 1 tab PO BID 7 days #14 tabs 03/21/24 Unknown Rx clavulanate 125 mg tablet Allergy/AdvReac Type Severity Reaction Status Date / Time Sulfa (Sulfonamide Allergy Unknown Verified 09/24/23 14:02 Antibiotics) Family History Mother Heart disease Father Heart disease Surgical History Status post arthroscopic knee surgery S/P bilateral foot surgery S/p bilateral carpal tunnel release S/P tonsillectomy and adenoidectomy S/P bilateral cataract extraction S/P CABG x 3 Stented coronary artery H/O right heart catheterization Social History household members: spouse Smoking Status: Former smoker how long ago did patient quit smoking: Quit when he was 44 y/o, 1/2 ppd since 10 years old. alcohol intake: never substance use type: does not use ROS ROS ED Constitutional Constitutional ED: Denies chills or fever(s) ENT ENT ED: Denies sore throat Cardiovascular Cardiovascular: Denies chest pain, palpitations or racing heartbeat Respiratory/Chest Respiratory/Chest: Denies cough or dyspnea Gastrointestinal Gastrointestinal: Denies abdominal pain, diarrhea, nausea or vomiting Genitourinary Genitourinary ED: Denies dysuria Musculoskeletal Musculoskeletal: Reports other Details: Positive right forearm pain Integumentary Reports other Details: Positive laceration right forearm ; Denies rash Neurologic Neurologic: Denies headache(s), paresthesias or weakness Hematologic/Lymphatic Hematologic/Lymphatic: Reports easy bleeding and easy bruising EXAM Physical Exam Const Vital Signs: 03/21/24 01:27 Temperature 97.9 F Temperature Source Temporal Pulse Rate 78 Respiratory Rate 20 H Blood Pressure 143/81 H Blood Pressure Mean 101 Pulse Ox 100 Oxygen Delivery Method Room Air Positive well nourished and well developed General Appearance ED: well developed; Negative for pallor HEENT HEENT Narrative: Normocephalic atraumatic Eyes PERRL and EOMs intact bilaterally General Eye ED: Negative for scleral icterus Neck supple Resp normal respiratory effort and clear to auscultation bilaterally Cardio regular rate and regular rhythm Extremity Extremity Narrative: Right upper extremity is neurovascularly intact; AIN/PIN are intact and normal. To the distal third of the dorsal aspect of the right forearm there is a circular yet jagged 1.5 cm skin tear consistent with dog bite at his dermal layer deep with mild amount of venous bleeding noted. No foreign body. No ligamentous or tendon injury. No bony deformity or joint effusion noted. Remainder of the exam is normal Neuro oriented x3, CN's II-XII intact bilaterally and no sensory deficits noted Sensorium / Orientation: alert Motor Exam: strength 5/5 throughout Psych mental status grossly normal Skin Skin Narrative: Skin tear to the distal right forearm as documented above General Skin Exam: Negative for jaundice or pallor MDM MDM MDM Narrative Medical decision making narrative: Patient arrived to the ER mildly hypertensive but has a past medical history of this. Otherwise vitals are stable. The patient was bitten by his dog which occurred after he inadvertently rolled over on it while sleeping. As the dog is his own and known there is no need for rabies vaccination or immunoglobulin. The patient does not have a history of immunosuppression but based on his advanced age and dog bite there is concern for developing infection so will be placed on prophylactic antibiotics/Augmentin. His tetanus status will also be updated as he is unsure of this. I do not feel there is a need for an x-ray as there is no bony deformity or joint effusion and patient has full active range of motion without pain. There are no signs of ligamentous or tendon injury either or retained foreign body and there is no need for emergent orthopedic consultation. The patient sustained a skin tear and there is no skin left to suture. As he is on an anticoagulant in Eliquis and has persistent mild venous bleeding Surgicel will be placed over top of the skin tear and then wrapped with a pressure dressing to ensure coagulation. However at this time without signs of bony injury or signs of ligamentous or tendon injury or arterial injury and the fact his bleeding is now controlled there is no need for further evaluation or workup and he is otherwise safe for discharge. History & Record Review Discussion w/independent historian: EMS personnel and Patient Discharge Plan Triage Chief Complaint: Bite ED Provider: Jack Stout Dx/Rx/DC Orders Clinical Impression: Dog bite of right forearm without complication, Skin tear of right forearm without complication, Current use of watermelon inspector anticoagulation, Hypertension, Paroxysmal atrial fibrillation Instructions: ED Dog Bite, ED Skin Tear (Skin Avulsion) Prescriptions: New amoxicillin-pot clavulanate 875-125 mg tablet 1 tab PO BID 7 Days Qty: 14 0RF No Action isosorbide mononitrate 30 MG tablet extended release 24 hr 15 mg PO DAILY clopidogrel 75 MG tablet 75 mg PO DAILY metoprolol succinate 25 MG tablet extended release 24 hr 25 mg PO DAILY trazodone 50 mg tablet 50 mg PO QHS gabapentin 400 mg capsule 400 mg PO BID simvastatin 40 mg tablet 40 mg PO DAILY pantoprazole 20 mg tablet,delayed release (DR/EC) 20 mg PO BID cyclobenzaprine 5 mg tablet 5 mg PO QHS ezetimibe 10 mg tablet 10 mg PO DAILY metoprolol succinate 50 mg Tablet Extended Release 24 Hr 50 mg PO DAILY Qty: 30 0RF Eliquis 5 mg tablet 5 mg PO BID Qty: 60 0RF Primary Care Provider: Lizeth Saini Referrals: Lizeth Saini PA [Primary Care Provider] - Activity Restrictions/Additional Instructions: Please leave the Surgicel and wrapping that was provided in the ER on top of the wound for the next 10 to 12 hours. After that timeframe you can remove the wrap and shower and this should dissolve the Surgicel off the wound. By that time the wound should be starting to scab and there should be no further bleeding. Take the antibiotic as directed to prevent secondary infection from the dog bite and continue all of your other medications as directed by your doctor. Return to the ER should you have any further concerns Print Language: [place] Disposition Disposition: Home, Self Care
[2024-03-21 02:08] VITALS: BP 134/67; PULSE 71; RESP 16; TEMP 36.6; O2SAT 96
[2024-03-21] MEDS: Amox/Clavulanate 875 MG Tablet PO (02:09)
[2024-03-21] MEDS: Diphth,Pertuss(Acell),Tet Vac 0.5 ML Vial IM (02:09)
== END 2024-03-21 02:50 | disposition home or self-care (01) ==
PROVIDERS: Emergency Provider Emergency Medicine; PCP Physician Assistant; Visit Provider Emergency Medicine
DX: S51.811A Laceration without foreign body of right forearm, initial encounter (principal); I48.0 Paroxysmal atrial fibrillation; S51.851A Open bite of right forearm, initial encounter; W54.0XXA Bitten by dog, initial encounter; Y92.003 Bedroom of unspecified non-institutional (private) residence as the place of occurrence of the external cause; Y93.84 Activity, sleeping; Z23 Encounter for immunization; I25.10 Atherosclerotic heart disease of native coronary artery without angina pectoris; I10 Essential (primary) hypertension; E78.5 Hyperlipidemia, unspecified; I25.2 Old myocardial infarction; Z79.01 Long term (current) use of anticoagulants; Z79.02 Long term (current) use of antithrombotics/antiplatelets; Z79.899 Other long term (current) drug therapy; Z87.891 Personal history of nicotine dependence
CPT/HCPCS: 90715; 99283

== ENCOUNTER 2024-03-25 10:25 | Emergency (ER) | payer MEDICARE, SELFPAY ==
[2024-03-25 10:25] VITALS: BP 131/75; PULSE 98; RESP 18; TEMP 36.6; O2SAT 99; BMI 24.1
--- NOTE | 2024-03-25 11:19 | EDS_ITS ---
HPI History of Present Illness Chief Complaint: Wound Check Narrative Narrative: 81-year-old male past medical history of hypertension, atrial fibrillation, on anticoagulation was seen a few days ago in the emergency department for a skin tear that he sustained from a dog bite to his right forearm. At that time, they could not get it to stop bleeding. He presents today because he states that he had put a Band-Aid over the skin tear, and when he removed it, very small area started to bleed as well. Additionally, his right hand is a little more swollen than the left. He denies any fevers or chills, no color change to the right hand, no other symptoms. He is currently taking the antibiotic that was given to him as prophylaxis. [facility] Medical History Kidney disease GERD (gastroesophageal reflux disease) Former tobacco use HLD (hyperlipidemia) CAD (coronary artery disease) History of chronic hypertension Right leg weakness Myocardial infarct Hypertension Vertigo Home Medications ?Medication ?Instructions ?Recorded ?Last Taken ?Type clopidogrel 75 mg tablet 75 mg PO DAILY anti platelet 08/23/19 06/25/21 History isosorbide mononitrate 30 mg 15 mg PO DAILY HEART 08/23/19 06/25/21 History tablet,extended release 24 hr metoprolol succinate 25 mg 25 mg PO DAILY blood pressure 08/23/19 06/25/21 History tablet,extended release 24 hr cyclobenzaprine 5 mg tablet 5 mg PO QHS MUSCLE 06/25/21 06/24/21 History gabapentin 400 mg capsule 400 mg PO BID NERVE PAIN 06/25/21 06/25/21 History pantoprazole 20 mg tablet,delayed 20 mg PO BID GERD 06/25/21 06/25/21 History release simvastatin 40 mg tablet 40 mg PO DAILY CHOLESTEROL 06/25/21 06/24/21 History trazodone 50 mg tablet 50 mg PO QHS SLEEP 06/25/21 06/24/21 History ezetimibe 10 mg tablet 10 mg PO DAILY 09/24/23 Unknown History apixaban 5 mg tablet (Eliquis) 5 mg PO BID #60 tabs 09/26/23 Unknown Rx metoprolol succinate 50 mg 50 mg PO DAILY #30 tabs 09/26/23 Unknown Rx tablet,extended release 24 hr amoxicillin 875 mg-potassium 1 tab PO BID 7 days #14 tabs 07/29/24 Unknown Rx clavulanate 125 mg tablet Allergy/AdvReac Type Severity Reaction Status Date / Time Sulfa (Sulfonamide Allergy Unknown Verified 03/25/24 10:25 Antibiotics) Family History Mother Heart disease Father Heart disease Surgical History Status post arthroscopic knee surgery S/P bilateral foot surgery S/p bilateral carpal tunnel release S/P tonsillectomy and adenoidectomy S/P bilateral cataract extraction S/P CABG x 3 Stented coronary artery H/O right heart catheterization Social History household members: spouse Smoking Status: Former smoker how long ago did patient quit smoking: Quit when he was 44 y/o, 1/2 ppd since 10 years old. alcohol intake: never substance use type: does not use ROS ROS ED ROS Narrative Constitutional: No fever, no chills. HEENT: No sore throat. No neck pain. No loss of vision. No rhinorrhea. Cardiovascular: No chest pain. No palpitations. No pedal edema. Respiratory: No cough, no shortness of breath. Abdominal: No abdominal pain. No nausea. No vomiting. Genitourinary: No dysuria. No hematuria. Musculoskeletal: No myalgias. No arthralgias. Positive swelling of dorsum of right hand. Neurologic: No headaches. No dizziness. No lightheadedness. Skin: No rash. No change in color. Healing skin tear right forearm, new small punctate skin tear to area more lateral on forearm. Psychiatric: No depression. No anxiety. EXAM Physical Exam Narrative Exam Narrative: Afebrile. Vital signs noted. Regular rate and rhythm, lungs clear to auscultation bilaterally. Abdomen soft and nontender with normal active bowel sounds. There is a larger skin tear on his forearm without active bleeding, no fluctuance, no purulent drainage. He has a palpable radial pulse distally. There is mild swelling of the dorsum of the hand, but no erythema. Additionally, there is a punctate lesion on his forearm where the Band-Aid used to be consistent with a less then 0.5 cm skin avulsion, no active bleeding. Const Vital Signs: 03/25/24 10:25 Temperature 97.8 F Temperature Source Temporal Pulse Rate 98 Respiratory Rate 18 Blood Pressure 131/75 H Blood Pressure Mean 93 Pulse Ox 99 Oxygen Delivery Method Room Air MDM MDM MDM Narrative Medical decision making narrative: I reviewed the patient's prior records. His skin tear was from a dog bite. It does not appear infected currently. Regarding the swelling of his hand, it may be more inflammatory. I do not think it is an abscess. I do not feel he needs laboratory work or that he has an infected dog bite as there is no lymphangitic streaking up his arm and no surrounding erythema of the skin tear. There is a small punctate skin tear from the Band-Aid when he removed it. Hence, I do not feel that he should have any adhesive applied to his thin skin on the forearm. Vaseline gauze will be applied by RN and then wrapped with dry sterile gauze that is lightly taped to itself. I feel he can be discharged to follow-up with his primary care provider. Return instructions to the emergency department were reviewed. Disposition is discharged home in stable condition. History & Record Review Discussion w/independent historian: Patient Discharge Plan Triage Chief Complaint: Wound Check ED Provider: Luis Corbin Dx/Rx/DC Orders Clinical Impression: Skin tear of right forearm without complication, Swelling of right hand Instructions: ED Skin Tear (Skin Avulsion), ED Wound Check (No Infection) Prescriptions: No Action isosorbide mononitrate 30 MG tablet extended release 24 hr 15 mg PO DAILY clopidogrel 75 MG tablet 75 mg PO DAILY metoprolol succinate 25 MG tablet extended release 24 hr 25 mg PO DAILY trazodone 50 mg tablet 50 mg PO QHS gabapentin 400 mg capsule 400 mg PO BID simvastatin 40 mg tablet 40 mg PO DAILY pantoprazole 20 mg tablet,delayed release (DR/EC) 20 mg PO BID cyclobenzaprine 5 mg tablet 5 mg PO QHS ezetimibe 10 mg tablet 10 mg PO DAILY metoprolol succinate 50 mg Tablet Extended Release 24 Hr 50 mg PO DAILY Qty: 30 0RF Eliquis 5 mg tablet 5 mg PO BID Qty: 60 0RF amoxicillin-pot clavulanate 875-125 mg tablet 1 tab PO BID 7 Days Qty: 14 0RF Primary Care Provider: Lizeth Saini Referrals: Saini,M August PA, PA [Primary Care Provider] - 3-5 Days Print Language: Albanian Disposition Disposition: Home, Self Care
[2024-03-25 11:50] VITALS: BP 131/75; PULSE 98; RESP 18; TEMP 36.6; O2SAT 99
== END 2024-03-25 11:50 | disposition home or self-care (01) ==
PROVIDERS: Emergency Provider Emergency Medicine; PCP Physician Assistant; Visit Provider Emergency Medicine
DX: S51.801D Unspecified open wound of right forearm, subsequent encounter (principal); I48.91 Unspecified atrial fibrillation; I10 Essential (primary) hypertension; E78.5 Hyperlipidemia, unspecified; I25.10 Atherosclerotic heart disease of native coronary artery without angina pectoris; Z87.891 Personal history of nicotine dependence; Z95.1 Presence of aortocoronary bypass graft; Z95.5 Presence of coronary angioplasty implant and graft; I25.2 Old myocardial infarction; K21.9 Gastro-esophageal reflux disease without esophagitis; Z79.01 Long term (current) use of anticoagulants; W54.0XXD Bitten by dog, subsequent encounter
CPT/HCPCS: 99282

== ENCOUNTER 2024-04-09 12:22 | Emergency (ER) | payer MEDICARE, SELFPAY ==
[2024-04-09 12:22] VITALS: BP 120/71; PULSE 95; RESP 16; TEMP 36.4; O2SAT 98
--- NOTE | 2024-04-09 12:46 | EKG12_ITS ---
Test Reason : Blood Pressure : / mmHG Vent. Rate : 086 BPM Atrial Rate : 086 BPM P-R Int : 172 ms QRS Dur : 118 ms QT Int : 388 ms P-R-T Axes : 026 -81 016 degrees QTc Int : 464 ms Normal sinus rhythm Incomplete right bundle branch block Left anterior fascicular block Abnormal ECG Confirmed by MARIAN MEZA, AIRELA ([id number]), deputy editor in chief ANAY ARANA ([id number]) on 04/15/2024 6:43:59 AM Referred By: Confirmed By:CINDY FONSECA MD
[2024-04-09 13:10] LABS: Absolute Neutrophil Count 2.2 X10^3/uL (2.0-7.7); Basophil# 0.02 X10^3/uL; Basophil% 0.6 % (0-1); Eosinophil# 0.04 X10^3/uL; Eosinophils% 1.2 % (0-5); Hematocrit 28.7 % (40-54); Hemoglobin 8.7 g/dL (13.0-16.5); Lymphocyte % 27.2 % (19-41); Mean Corp Hgb Conc 30.3 g/dL (32-36); Mean Corpuscular Hgb 24.5 pg (27.0-32.0); Mean Corpuscular Volume 80.8 fL (80-94); Mean Platelet Vol. 11.9 fl (6.2-12.0); Monocyte# 0.19 X10^3/uL; Monocyte% 5.7 % (0-10); NRBC Flagged by Analyzer 0 % (0-5); Neutrophil # 2.15 X10^3/uL (2.7-7.7); Platelet Count 104 K/mm3 (150-450); RBC Distribution Width CV 13.8 % (11.6-14.6); RBC Distribution Width SD 40.2 fl (35.1-43.9); Red Blood Count 3.55 M/mm3 (4.6-6.2); White Blood Count 3.3 K/mm3 (4.4-11.0)
[2024-04-09 13:21] LABS: Anion Gap 6 (5-15); BUN 12 mg/dL (7-18); BUN/Creat Ratio 9.2 RATIO (10-20); Calcium,Total 8.7 mg/dL (8.5-10.1); Chloride 111 mmol/L (98-107); Creatinine, Serum 1.31 mg/dL (0.70-1.30); EST Glomerular Filtration Rate 55 mL/min (>60); Est Glom Filt Rate - Afr Amer 67 mL/min (>60); Glucose 121 mg/dL (74-106); Potassium 3.9 mmol/L (3.5-5.1); Sodium Level 141 mmol/L (136-145)
[2024-04-09 13:22] VITALS: RESP 16
[2024-04-09 13:26] LABS: Alcohol, Blood (Medical)-Serum < 3.0 mg/dL
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
--- NOTE | 2024-04-09 14:26 | ED.RN ---
PATIENTS REQUESTING AN UPDATE. INFORMED ACCOUNT SUPPORT ANALYST IS WITH AT THIS TIME. NO NEW INFORMATION, WAITING FOR LABS TO RESULT. REQUESTING TO CALL BACK IN AN HOUR FOR AN UPDATE
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
[2024-04-09 14:39] LABS: Bacteria 0 SEEN /hpf (None Seen); Mucous, Urine 0 SEEN /hpf (<or=2+); Red Blood Cells-Urine 0 SEEN /hpf (0-5); White Blood Cells 0 SEEN /hpf (0-5)
[2024-04-09 14:43] LABS: Color, Urine Straw (Yellow); Glucose, Dipstick Normal (Normal); Ketone-Dipstick Negative (Negative); Leukocyte Esterase-Dipstick Negative /ul (Negative); Nitrite-Dipstick Negative (Negative); Occult Blood-Urine Negative /ul (Negative); Protein-Dipstick Negative (Negative); Urine Bilirubin Dipstick Negative (Negative); Urine Clarity Clear (Clear); Urine Urobilinogen Normal (Normal)
[2024-04-09 14:51] LABS: Squamous Epithelial Cells - UA 0-5 SEEN /hpf (0-5)
[2024-04-09 15:33] LABS: Amphetamine Urine VISTA NEGATIVE (<1000 ng/mL); Barbiturate Urine VISTA NEGATIVE (< 200 ng/mL); Benzodiazepine Urine VISTA NEGATIVE (< 200 ng/mL); Cocaine Urine VISTA NEGATIVE (< 300 ng/mL); Ecstacy Urine VISTA NEGATIVE (< 500 ng/mL); Methadone Urine VISTA NEGATIVE (< 300 ng/mL); PCP Urine VISTA NEGATIVE (< 25 ng/mL); THC Urine VISTA NEGATIVE (< 50 ng/mL); Vista UDS pH Range 5
--- NOTE | 2024-04-09 16:15 | CM.ED ---
Social Work: Lab Rn notified by ED doctor that she wasn't able to get a hold of patient's daughter. Lab Rn will attempt contact. Harleen Crawford, REGIONAL SALES LEADER, RETAIL SUPERVISOR
--- NOTE | 2024-04-09 16:18 | CASEMGMT ---
Social Work Unsuccessful phone contact with patient's daughter Ruthann Hansen on her home phone . Finisher [employer] left a message with her name and number and requested a return call. Unsuccessful phone contact with patient's daughter at work: [employer] . turntable worker spoke with the current manager educational on duty who stated Ms. Hansen is currently on vacation. turntable worker didn't disclose any identifying information or where she was calling from or PHI however provided manager educational with protective services social worker's name and number and asked the storeroom keeper to call Ms. Hansen on her cell phone and have her call protective services social worker which she stated she would do. Harleen Crawford, DIRECTOR SPEECH, SOCIAL SERVICES AIDE
--- NOTE | 2024-04-09 16:25 | ED.RN ---
CONTENTS OF PATIENTS WALLET REVEWED AND COUNTED WITH PATIENT AND CRISTIAN RN. WALLET GIVEN TO SECURITY AND GIVEN TO BOTTOMER OPERATOR.
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
--- NOTE | 2024-04-09 17:08 | CM.ED ---
Social Work: tobacco farmworker faxed referral packet to [facility] for a harpreet/psych placement. tobacco farmworker waiting to hear back on acceptance. Harleen Crawford, AIR VICE MARSHAL, TURNER AND FORMER AUTOMATIC
--- NOTE | 2024-04-09 17:55 | CM.ED ---
Social Work: groundskeeping maintenance worker met with patient again to update him on being transferred to another hospital which he requested his be notified of. Patient very tearful and extremely worried about his dog. Patient's nurse retrieved patient's phone and patient called his friend Sepideh Flannery who stated she will go to patient's house tonight to let patient's dog out to use the bathroom and give the dog water and food tonight and tomorrow until patient's daughter gets home from vacation. Patient stated the front and back doors to his house are unlocked. groundskeeping maintenance worker spoke on the phone with Sepideh Flannery who also confirmed this with Sepideh Flannery. Patient also called his friend Steffen who stated he and his Charlene will be able to also help out as needed. Patient was feeling better but kept saying that he wants to be home to care care of his dog. groundskeeping maintenance worker returned patient's phone to floor nurse who will put the phone back with patient's belongings. Harleen Crawford, FAMILY SERVICES COORDINATOR, WORKFORCE INVESTMENT ACT CAREER MANAGER
--- NOTE | 2024-04-09 18:17 | CM.ED ---
Social Work: [facility] accepted to [facility] . Accepting Dr: Francy. Nurse to nurse number: . farmworker diversified crops to fax updated pink slip with receiving facility name. Transport may not be available until after 10pm. Harleen Crawford, COMMERCIAL PEST CONTROL REPRESENTATIVE, CUTTER HOT KNIFE
[2024-04-09 18:30] VITALS: BP 148/73; PULSE 91; RESP 13; O2SAT 95
--- NOTE | 2024-04-09 18:41 | ED.RN ---
This RN called [facility] to get clarification about arrival time for patient. They stated pt. was not allowed to leave this facility until 10pm or later as they have another patient scheduled to arrive at 10pm.
--- NOTE | 2024-04-09 18:42 | ED.RN ---
This RN has tried 3 times to get an accurate medication list from patient. This Rn even attempted to go over medications that are on his external list. Pt. can only confirm that he is taking Elliquis. States he takes other meds but has no idea what they are or what they are for.
[2024-04-09] MEDS: traZODone 50 MG Tablet PO (21:57)
[2024-04-09] MEDS: cycloBENZAPRine HCl 5 MG TABLET PO (21:58)
[2024-04-09 22:00] VITALS: BP 142/75; PULSE 94; RESP 16; TEMP 36.2; O2SAT 94
[2024-04-09] MEDS: Pantoprazole Sodium 20 MG Tablet PO (22:01)
[2024-04-09] MEDS: Gabapentin 400 MG Capsule PO (22:23)
[2024-04-09] MEDS: APIXABAN 5 MG TABLET PO (22:23)
[2024-04-10] MEDS: Acetaminophen 325 MG Tablet 650 MG PO (00:59)
[2024-04-10 02:00] VITALS: BP 145/70; PULSE 64; RESP 16; TEMP 36.1; O2SAT 95
[2024-04-10 06:00] VITALS: BP 146/83; PULSE 63; RESP 16; TEMP 36.6; O2SAT 95
[2024-04-10 09:23] VITALS: BP 146/83; PULSE 63; RESP 18; TEMP 36.6; O2SAT 95
== END 2024-04-10 09:37 ==
PROVIDERS: Emergency Provider Emergency Medicine; PCP Clinical Nurse Specialist Adult Health; Visit Provider Emergency Medicine
DX: F32.A Depression, unspecified (principal); D61.818 Other pancytopenia; I12.9 Hypertensive chronic kidney disease with stage 1 through stage 4 chronic kidney disease, or unspecified chronic kidney disease; R45.851 Suicidal ideations; I25.10 Atherosclerotic heart disease of native coronary artery without angina pectoris; N18.9 Chronic kidney disease, unspecified; Z87.891 Personal history of nicotine dependence; E78.5 Hyperlipidemia, unspecified; I25.2 Old myocardial infarction; Z79.02 Long term (current) use of antithrombotics/antiplatelets; Z79.899 Other long term (current) drug therapy; K21.9 Gastro-esophageal reflux disease without esophagitis; Z79.01 Long term (current) use of anticoagulants; Z95.1 Presence of aortocoronary bypass graft; Z95.5 Presence of coronary angioplasty implant and graft; Z98.41 Cataract extraction status, right eye; Z98.42 Cataract extraction status, left eye
CPT/HCPCS: 80048; 80307; 81001; 82077; 85025; 93005; 99285

== ENCOUNTER 2024-11-07 13:31 | Inpatient (IN) | payer MEDICARE, SELFPAY ==
[2024-11-07] VITALS (9 sets, daily range): BP systolic 84–118; BP diastolic 45–75; PULSE 61–98; RESP 13–20; TEMP 36.7–37.2; O2SAT 94–100; BMI 28.5; BMI 28.4
[2024-11-07 14:58] LABS: Absolute Lymphocyte Count 1.26 X10^3/uL (0.83-4.51); Absolute Neutrophil Count 3.4 X10^3/uL (2.0-7.7); Basophil# 0.02 X10^3/uL; Basophil% 0.4 % (0-1); Eosinophil# 0.09 X10^3/uL; Eosinophils% 1.7 % (0-5); Hematocrit 24.4 % (40-54); Hemoglobin 7.2 g/dL (13.0-16.5); Lymphocyte # 1.26 X10^3/ul (0.83-4.51); Lymphocyte % 24.4 % (19-41); Mean Corp Hgb Conc 29.5 g/dL (32-36); Mean Corpuscular Hgb 28.3 pg (27.0-32.0); Mean Corpuscular Volume 96.1 fL (80-94); Monocyte# 0.31 X10^3/uL; NRBC Flagged by Analyzer 0 % (0-5); Neutrophil # 3.44 X10^3/uL (2.7-7.7); Neutrophil % 66.7 % (47-70); Platelet Count 117 K/mm3 (150-450); RBC Distribution Width CV 16.5 % (11.6-14.6); Red Blood Count 2.54 M/mm3 (4.6-6.2); White Blood Count 5.2 K/mm3 (4.4-11.0)
--- NOTE | 2024-11-07 15:10 | EKG12_ITS ---
Test Reason : DYSP Blood Pressure : */* mmHG Vent. Rate : 69 BPM Atrial Rate : * BPM P-R Int : * ms QRS Dur : 138 ms QT Int : 452 ms P-R-T Axes : * 269 24 degrees QTcB Int : 484 ms sinsu rhythm Right bundle branch block Possible Lateral infarct , age undetermined Abnormal ECG Confirmed by PAULINO MEZA, EDILIA ([id number]), web content editor ESTEPHANIA MCKENZIE ([id number]) on 11/08/2024 8:15:39 AM Referred By: Andrey Mitchell Confirmed By: EDILIA BOB MD
--- NOTE | 2024-11-07 15:11 | EX.ED.DYSGE1 ---
HPI History of Present Illness Chief Complaint: Abn Labs Informant: patient and SNF Narrative Narrative: 84-year-old male presenting to the emergency room with a report of anemia. Patient reportedly had blood work done this morning showed a hemoglobin of 6.2. He is on reportedly Eliquis and Plavix. He had a right hip replacement in September. He has a baseline anemia around 8. He states he has not been having black or bloody stools but he still also states that it is hard for him to see the stool given the size of his bathroom. Patient is very focused on the temperature of the room it is hard to redirect him back to his why he is here. He is unsure of exactly who did his surgery. He states he has been [facility] the [facility] for about a month and states that he is growing weaker. He notes that his legs are more swollen than normal. Patient states that sometime last night due to shortness of breath. He denied any chest pain palpitations. He denies any cough or fever. He has not been having short of breath. [facility] Medical History Kidney disease GERD (gastroesophageal reflux disease) Former tobacco use HLD (hyperlipidemia) CAD (coronary artery disease) History of chronic hypertension Right leg weakness Myocardial infarct Hypertension Vertigo Home Medications ?Medication ?Instructions ?Recorded ?Last Taken ?Type clopidogrel 75 mg tablet 75 mg PO DAILY anti platelet 08/23/19 06/25/21 History isosorbide mononitrate 30 mg 15 mg PO DAILY HEART 08/23/19 06/25/21 History tablet,extended release 24 hr gabapentin 400 mg capsule 400 mg PO BID NERVE PAIN 06/25/21 06/25/21 History pantoprazole 20 mg tablet,delayed 20 mg PO BID GERD 06/25/21 06/25/21 History release simvastatin 40 mg tablet 40 mg PO DAILY CHOLESTEROL 06/25/21 06/24/21 History trazodone 50 mg tablet 50 mg PO QHS SLEEP 06/25/21 06/24/21 History ezetimibe 10 mg tablet 10 mg PO DAILY 09/24/23 Unknown History apixaban 5 mg tablet (Eliquis) 5 mg PO BID #60 tabs 09/26/23 Unknown Rx metoprolol succinate 50 mg 50 mg PO DAILY #30 tabs 09/26/23 Unknown Rx tablet,extended release 24 hr acetaminophen 500 mg capsule 1,000 mg PO Q8H PRN PRN fever or 11/07/24 Unknown History pain acetaminophen 650 mg rectal 650 mg CA Q4H PRN fever or pain 11/07/24 Unknown History suppository aluminum-magnesium hydroxide 200 30 ml PO Q4H PRN dyspepsia 11/07/24 Unknown History mg-200 mg/5 mL oral suspension (MAG-AL) amiodarone 200 mg tablet 200 mg PO DAILY 11/07/24 Unknown History amiodarone 400 mg tablet 400 mg PO DAILY 11/07/24 Unknown History ascorbic acid (vitamin C) 500 mg 500 mg PO BID SUPPLEMENT 11/07/24 Unknown History capsule bisacodyl 10 mg rectal suppository 10 mg CA DAILY PRN constipation 11/07/24 Unknown History docusate sodium 100 mg capsule 100 mg PO DAILY 11/07/24 Unknown History ferrous sulfate 325 mg (65 mg 325 mg PO DAILY 11/07/24 Unknown History iron) tablet (FeroSul) furosemide 20 mg tablet 20 mg PO DAILY 11/07/24 Unknown History glucagon 1 mg solution for 1 mg IM Q20M PRN hypoglycemia 11/07/24 Unknown History injection (Glucagon Emergency Kit) guaifenesin 100 mg/5 mL oral 200 mg PO Q4H PRN congestion 11/07/24 Unknown History liquid (Adult Tussin Chest Congestion) hydroxyzine HCl 25 mg tablet 25 mg PO TID PRN anxiety 11/07/24 Unknown History magnesium hydroxide 400 mg/5 mL 30 ml PO DAILY PRN constipation 11/07/24 Unknown History oral suspension (Milk of Magnesia) metformin 500 mg tablet,extended 500 mg PO DAILY 11/07/24 Unknown History release 24 hr ondansetron 4 mg disintegrating 4 mg PO Q6H PRN nausea and vomiting 11/07/24 Unknown History tablet polyethylene glycol 3350 17 17 g PO DAILY 11/07/24 Unknown History gram/dose oral powder (ClearLax) sodium phosphates 19 gram-7 118 ml CA DAILY PRN constipation 11/07/24 Unknown History gram/118 mL enema (Fleet Enema) tamsulosin 0.4 mg capsule 0.4 mg PO Q24H 11/07/24 Unknown History Allergy/AdvReac Type Severity Reaction Status Date / Time Sulfa (Sulfonamide Allergy Unknown Verified 03/25/24 10:25 Antibiotics) Family History Mother Heart disease Father Heart disease Surgical History Status post arthroscopic knee surgery S/P bilateral foot surgery S/p bilateral carpal tunnel release S/P tonsillectomy and adenoidectomy S/P bilateral cataract extraction S/P CABG x 3 Stented coronary artery H/O right heart catheterization Social History household members: spouse Smoking Status: Former smoker how long ago did patient quit smoking: Quit when he was 44 y/o, 1/2 ppd since 10 years old. alcohol intake: never substance use type: does not use ROS ROS ED Constitutional Constitutional ED: Denies chills or weight loss Eyes Eyes: Denies change in vision or diplopia ENT ENT ED: Denies ear pain, rhinorrhea or sore throat Cardiovascular Cardiovascular: Denies chest pain, orthopnea, palpitations or racing heartbeat Respiratory/Chest Respiratory/Chest: Reports dyspnea; Denies cough or orthopnea Gastrointestinal Gastrointestinal: Denies abdominal pain, diarrhea, nausea or vomiting Genitourinary Genitourinary ED: Denies dysuria, hematuria or urinary frequency Musculoskeletal Musculoskeletal: Denies arthralgias or myalgias Integumentary Denies abscess or rash Neurologic Neurologic: Denies headache(s) or weakness Psychiatric Psychiatric: Denies anxiety, depression, suicidal ideation or suicidal thoughts Endocrine Endocrinology: Denies polydipsia, polyphagia or polyuria Allergic/Immunologic Allergic/Immunologic ED: Denies mouth swelling, tongue swelling or urticaria EXAM Physical Exam Const Vital Signs: 11/07/24 13:32 11/07/24 13:36 11/07/24 14:36 Temperature 98.6 F 98.1 F Temperature Source Oral Oral Pulse Rate 72 61 Respiratory Rate 13 18 Respiratory Effort Short of Breath Blood Pressure 118/75 98/55 L Blood Pressure Mean 89 69 Pulse Ox 94 98 Oxygen Delivery Method Room Air Room Air 11/07/24 15:00 11/07/24 15:55 11/07/24 16:08 Temperature 98.1 F 98.2 F Temperature Source Oral Pulse Rate 67 65 65 Respiratory Rate 19 H 18 18 Respiratory Effort Blood Pressure 106/71 84/70 L 99/67 Blood Pressure Mean 82 74 77 Pulse Ox 95 95 98 Oxygen Delivery Method Room Air Room Air Positive well nourished and well developed General Appearance ED: well developed and NAD HEENT Reports normocephalic, head/scalp atraumatic and moist mucous membranes Eyes PERRL and EOMs intact bilaterally Neck no lymphadenopathy, supple and no JVD Resp normal respiratory effort and clear to auscultation bilaterally Cardio regular rate, regular rhythm and no murmurs GI normal to inspection, nondistended, normoactive bowel sounds and non-tender Palpation: soft Narrative: Formed hard stool. Dark brown stool. No gross blood on glove. Back/Spine no CVA tenderness and normal ROM Extremity Extremity Narrative: abrasion left leg General Extremety ED: Yes edema General Extremity: edema bilateral lower extremity Details: moderate Neuro oriented x3 and CN's II-XII intact bilaterally Sensorium / Orientation: alert Motor Exam: strength 5/5 throughout Psych mental status grossly normal Mood & Affect: Negative for depressed or tearful Skin no rashes or lesions noted Skin Narrative: healing incision on right leg. MDM MDM MDM Narrative Medical decision making narrative: Differential diagnosis includes anemia upper GI bleed lower GI bleed anticoagulation chronic anemia acute blood loss anemia Patient's hemoglobin currently is 7.2 with a platelet count of 117. BUN of 22 creatinine 1.62 glucose of 128. Hemoccult is positive. He is typed and crossed for 1 unit. We performed an EKG that shows a probable sinus (lead II) with a rate of 69 right bundle branch block rotation of the chest x-ray is chronic changes no distinct infiltrate. The patient is Cecil score is about 24. I will speak with the hospitalist regarding patient. History & Record Review Discussion w/independent historian: EMS personnel and Patient Lab Data Attestation: I reviewed the patient's lab results. Labs: Laboratory Results - last 24 hr 11/07/24 13:40 WBC 5.2 RBC 2.54 L Hgb 7.2 L Hct 24.4 L MCV 96.1 H MCH 28.3 MCHC 29.5 L RDW Std Deviation 58.0 H RDW Coeff of Jaqueline 16.5 H Plt Count 117 L MPV 13.0 H Immature Gran % (Auto) 0.800 Neut % (Auto) 66.7 Lymph % (Auto) 24.4 [place] % (Auto) 6.0 Eos % (Auto) 1.7 Baso % (Auto) 0.4 Absolute Neuts (auto) 3.4 Absolute Lymphs (auto) 1.26 Nucleated RBC % 0 Sodium 138 Potassium 4.0 Chloride 102 Carbon Dioxide 23.5 Anion Gap 12 BUN 22 H Creatinine 1.62 H Estim Creat Clear Calc 34.78 L Est GFR (MDRD) Non-Af 41 L BUN/Creatinine Ratio 13.5 Glucose 120 H Calcium 8.4 Crossmatch See Detail EKG Initial EKG: Attestation: I personally reviewed and interpreted this EKG as follows: Comments: Probable sinus rhythm with a ventricular to 69 bpm. Right bundle branch block is noted. No significant change from last computer Management Discussion w/another healthcare provider: Hospitalist (Paula) Discharge Plan Dx/Rx/DC Orders Clinical Impression: GI bleed, Acute on chronic anemia, Anticoagulated Disposition Disposition: [facility]
--- NOTE | 2024-11-07 15:15 | RAD_ITS ---
PROCEDURE: CHEST 1 VIEW (PORTABLE) (RADCXPA_P), 11/07/2024 REASON FOR EXAM: DYSPNEA TECHNIQUE: A single portable AP view of the chest was obtained. COMPARISON: 09/24/2023 FINDINGS: Heart: Grossly similar mild cardiomegaly, probably exacerbated by hypoinflation and portable technique. Mediastinum: Sternotomy. Central vascular prominence. Lungs/pleura: Hypoinflation with vascular crowding. No convincing focal consolidation. Similar chronic blunting of the left costophrenic sulcus, possible atelectasis/scarring, prominent extrapleural fat, pleural thickening, or trace to small pleural effusion. Subtle Helen B lines on the right are new from prior. No sizeable pleural effusion or visible pneumothorax. Bones: Suspect demineralization. Lines and support devices: None. RAD/Chest 1 View (Portable) IMPRESSION: 1. Limited hypoinflated exam. Cardiomegaly with central vascular prominence an d suspected trace pulmonary edema. 2. Additional description as above. Reading Location: [id number]
[2024-11-07 15:38] LABS: Anion Gap 12 (5-15); BUN 22 mg/dL (4-19); BUN/Creat Ratio 13.5 RATIO (10-20); Calcium,Total 8.4 mg/dL (7.6-11.0); Carbon Dioxide 23.5 mmol/L (21.0-32.0); Chloride 102 mmol/L (98-108); Creatinine, Serum 1.62 mg/dL (0.70-1.20); EST Glomerular Filtration Rate 41 (>60); Estimated Creatinine Clearance 34.78 ml/min (50-250); Glucose 120 mg/dL (70-99); Sodium Level 138 mmol/L (133-145)
--- NOTE | 2024-11-07 16:02 | PCM.HP.STD ---
HPI - General General Date of Admission: 11/07/24 Date of Service: 11/07/24 Chief Complaint: Worsening anemia HPI Narrative ANGIE DUTTON, is a 84 M who presented to [facility] ED on 11/07/2024 from fdc for worsening anemia. Patient had right total hip replacement done at [facility] on 10/07. He was eventually discharged to a fdc on 10/14 and has been there since then. Hemoglobin on discharge on 10/14 was 8.8 and was again 8.8 on 10/17 when drawn at the nursing facility. Patient is on Eliquis for A-fib and Plavix for CAD. He is also on an iron supplement for iron deficiency anemia. He has had some worsening of his weakness over the past several days he reports. He also notes that his legs have felt more swollen than normal. There was concern that he had a dark bowel movement at the facility earlier today, so they kayla a CBC and his hemoglobin was 6.1. They then sent him in for further evaluation. In the ED here his repeat hemoglobin was 7.2. Stool occult test was positive. Was mildly hypotensive to the 90s systolic but otherwise in normal sinus rhythm and breathing comfortably on room air at rest and mentating appropriately. Given concern for occult GI bleed and acute on chronic anemia, hospitalist was contacted for admission. I saw the patient at bedside in the ED. Patient was mildly fatigued and pale appearing but otherwise laying back comfortably in bed and in no acute distress. Patient was alert and oriented to person and place but not time. He was answering questions with tangential responses but he otherwise denied any acute pain or discomfort. No other acute concerns at this time. [facility] Medical History Kidney disease GERD (gastroesophageal reflux disease) Former tobacco use HLD (hyperlipidemia) CAD (coronary artery disease) History of chronic hypertension Right leg weakness Myocardial infarct Hypertension Vertigo Home Medications ?Medication ?Instructions ?Recorded ?Last Taken ?Type clopidogrel 75 mg tablet 75 mg PO DAILY anti platelet 08/23/19 06/25/21 History isosorbide mononitrate 30 mg 15 mg PO DAILY HEART 08/23/19 06/25/21 History tablet,extended release 24 hr gabapentin 400 mg capsule 400 mg PO BID NERVE PAIN 06/25/21 06/25/21 History pantoprazole 20 mg tablet,delayed 20 mg PO BID GERD 06/25/21 06/25/21 History release simvastatin 40 mg tablet 40 mg PO DAILY CHOLESTEROL 06/25/21 06/24/21 History trazodone 50 mg tablet 50 mg PO QHS SLEEP 06/25/21 06/24/21 History ezetimibe 10 mg tablet 10 mg PO DAILY 09/24/23 Unknown History apixaban 5 mg tablet (Eliquis) 5 mg PO BID #60 tabs 09/26/23 Unknown Rx metoprolol succinate 50 mg 50 mg PO DAILY #30 tabs 09/26/23 Unknown Rx tablet,extended release 24 hr acetaminophen 500 mg capsule 1,000 mg PO Q8H PRN PRN fever or 11/07/24 Unknown History pain acetaminophen 650 mg rectal 650 mg [place] Q4H PRN fever or pain 11/07/24 Unknown History suppository aluminum-magnesium hydroxide 200 30 ml PO Q4H PRN dyspepsia 11/07/24 Unknown History mg-200 mg/5 mL oral suspension (MAG-AL) amiodarone 200 mg tablet 200 mg PO DAILY 11/07/24 Unknown History amiodarone 400 mg tablet 400 mg PO DAILY 11/07/24 Unknown History ascorbic acid (vitamin C) 500 mg 500 mg PO BID SUPPLEMENT 11/07/24 Unknown History capsule bisacodyl 10 mg rectal suppository 10 mg MT DAILY PRN constipation 11/07/24 Unknown History docusate sodium 100 mg capsule 100 mg PO DAILY 11/07/24 Unknown History ferrous sulfate 325 mg (65 mg 325 mg PO DAILY 11/07/24 Unknown History iron) tablet (FeroSul) furosemide 20 mg tablet 20 mg PO DAILY 11/07/24 Unknown History glucagon 1 mg solution for 1 mg IM Q20M PRN hypoglycemia 11/07/24 Unknown History injection (Glucagon Emergency Kit) guaifenesin 100 mg/5 mL oral 200 mg PO Q4H PRN congestion 11/07/24 Unknown History liquid (Adult Tussin Chest Congestion) hydroxyzine HCl 25 mg tablet 25 mg PO TID PRN anxiety 11/07/24 Unknown History magnesium hydroxide 400 mg/5 mL 30 ml PO DAILY PRN constipation 11/07/24 Unknown History oral suspension (Milk of Magnesia) metformin 500 mg tablet,extended 500 mg PO DAILY 11/07/24 Unknown History release 24 hr ondansetron 4 mg disintegrating 4 mg PO Q6H PRN nausea and vomiting 11/07/24 Unknown History tablet polyethylene glycol 3350 17 17 g PO DAILY 11/07/24 Unknown History gram/dose oral powder (ClearLax) sodium phosphates 19 gram-7 118 ml MT DAILY PRN constipation 11/07/24 Unknown History gram/118 mL enema (Fleet Enema) tamsulosin 0.4 mg capsule 0.4 mg PO Q24H 11/07/24 Unknown History Allergy/AdvReac Type Severity Reaction Status Date / Time Sulfa (Sulfonamide Allergy Unknown Verified 03/25/24 10:25 Antibiotics) Family History Mother Heart disease Father Heart disease Surgical History Status post arthroscopic knee surgery S/P bilateral foot surgery S/p bilateral carpal tunnel release S/P tonsillectomy and adenoidectomy S/P bilateral cataract extraction S/P CABG x 3 Stented coronary artery H/O right heart catheterization Social History household members: spouse Smoking Status: Former smoker how long ago did patient quit smoking: Quit when he was 44 y/o, 1/2 ppd since 10 years old. alcohol intake: never substance use type: does not use ROS Constitutional Constitutional: Reports fatigue and weakness; Denies chills or fever(s) Eyes Eyes: Denies change in vision Cardiovascular Cardiovascular: Denies chest pain Respiratory/Chest Respiratory/Chest: Denies shortness of breath at rest Gastrointestinal Gastrointestinal: Denies abdominal pain, constipation, diarrhea, nausea or vomiting Musculoskeletal Musculoskeletal: Denies arthralgias or myalgias Vital Signs Vital Signs Vital Signs: 11/07/24 13:32 11/07/24 13:36 11/07/24 14:36 Temperature 98.6 F 98.1 F Temperature Source Oral Oral Pulse Rate 72 61 Respiratory Rate 13 18 Respiratory Effort Short of Breath Blood Pressure 118/75 98/55 L Blood Pressure Mean 89 69 Pulse Ox 94 98 Oxygen Delivery Method Room Air Room Air 11/07/24 15:00 11/07/24 15:55 Temperature 98.1 F Temperature Source Oral Pulse Rate 67 65 Respiratory Rate 19 H 18 Respiratory Effort Blood Pressure 106/71 84/70 L Blood Pressure Mean 82 74 Pulse Ox 95 95 Oxygen Delivery Method Room Air Room Air Weight Weight: 85.2 kg Body Mass Index (BMI) 28.5 Physical Exam Const alert, no apparent distress and average body habitus Constitutional Narrative: Elderly male, mildly fatigued and pale appearing, alert and oriented to person and place but not time, laying back comfortably in bed and answering questions with tangential responses, otherwise in no acute distress. General Appearance: cooperative and comfortable HEENT normocephalic, head/scalp atraumatic, hearing grossly normal bilaterally, nasal mucous membranes and turbinates normal and moist oral mucous membranes Eyes PERRL, EOMs intact bilaterally and conjunctivae normal Neck full ROM Chest inspection of chest normal Resp normal respiratory effort, normal air movement, no use of accessory muscles and clear to auscultation bilaterally Cardio regular rate, regular rhythm, no murmurs and peripheral pulses 2+ throughout GI normal to inspection, nondistended, normoactive bowel sounds, soft to palpation, non-tender and non-distended Back/Spine normal ROM Extremity Extremity Narrative: +3-4 lower extremity pitting edema noted up to the knees. Skin no rashes or lesions noted Neuro moves all extremities and no focal motor deficits Speech: speech normal Psych mental status grossly normal Results Lab / Micro Data 11/07/24 13:40 11/07/24 13:40 Labs: Laboratory Results - last 24 hr 11/07/24 13:40: WBC 5.2, RBC 2.54 L, Hgb 7.2 L, Hct 24.4 L, MCV 96.1 H, MCH 28.3, MCHC 29.5 L, RDW Std Deviation 58.0 H, RDW Coeff of Jaqueline 16.5 H, Plt Count 117 L, MPV 13.0 H, Immature Gran % (Auto) 0.800, Neut % (Auto) 66.7, Lymph % (Auto) 24.4, [place] % (Auto) 6.0, Eos % (Auto) 1.7, Baso % (Auto) 0.4, Absolute Neuts (auto) 3.4, Absolute Lymphs (auto) 1.26, Nucleated RBC % 0, Sodium 138, Potassium 4.0, Chloride 102, Carbon Dioxide 23.5, Anion Gap 12, BUN 22 H, Creatinine 1.62 H, Estim Creat Clear Calc 34.78 L, Est GFR (MDRD) Non-Af 41 L, BUN/Creatinine Ratio 13.5, Glucose 120 H, Calcium 8.4, Crossmatch See Detail Micro: Microbiology 11/07/24 15:12 Stool Stool Occult Blood (JOVANY) - Final Occult Blood Positive Assessment & Plan Assessment/Plan (1) Acute on chronic anemia: (2) GI bleed: (3) Acute heart failure with preserved ejection fraction (HFpEF): PLAN: Plan Patient is an 84-year-old male who presented to [facility] ED on 11/07/2024 with acute on chronic anemia and concern for GI bleed. 1. Acute on chronic anemia with concern for GI bleed ? Admit under inpatient status to PCU. GI consulted. May have minor GI bleed but suspect some degree of hemodilution of hemoglobin from volume overload as well. BUN not elevated and no worsening of acid reflux symptoms per patient recently, lower concern for upper GI bleed. Notably is on oral iron which may have been the cause of a dark stool at his facility. Will give 1 unit of blood and recheck hemoglobin tonight. Holding home Eliquis and Plavix. Continue home p.o. Protonix 20 mg twice daily. N.p.o. at midnight for possible scope tomorrow. Appreciate further GI recommendations. 2. Acute HFpEF ? Last echo in 09/2023 showed EF 65%, mild eccentric LV hypertrophy, stage II diastolic dysfunction, mild pulmonary hypertension. Patient with +3-4 lower extremity edema on exam and chest x-ray with cardiomegaly with central vascular prominence and suspected trace pulmonary edema. Repeat echo ordered. Given 1 dose of IV Lasix 40 mg in the ED and will treat with IV Lasix 40 mg twice daily for now, monitor daily BMP and urine output. 3. Mild PEG ? Creatinine 1.61 on admit, baseline appears to be around 1.1. Suspect due to cardiorenal syndrome in setting of acute HFpEF as noted above. Treating with IV Lasix as noted above, monitor BMP and urine output. 4. Acute on chronic debility with recent right total hip replacement ? PT/OT/case management consulted. Patient had recent total hip replacement done at [facility] on 10/07. Appears he was living at home prior to that and has now been in the fdc since then but other details unclear. Appreciate therapy and case management recommendations. 5. Paroxysmal A-fib, history of CAD with CABG, hypertension, hyperlipidemia ? Was hospitalized here in September 2023 for A-fib with RVR. Cardiology followed and it appears she was discharged on Toprol. He now has amiodarone on her medication list, unclear on when this was started. Will continue both amiodarone and Toprol. Has history of CABG x 3, appears to be remote. Okay to hold home Eliquis and Plavix for now. Continue home nitrate and statin. 6. Concern for cognitive impairment ? Patient alert and oriented x 2 in ED. Appeared to be attempting to answer questions appropriately but had very tangential responses. Suspect he may have some degree of underlying cognitive impairment. Monitor. Chronic medical conditions: ? Type 2 diabetes mellitus with neuropathy: Hold home metformin. Will treat with sliding-scale insulin with meals while inpatient, adjust as needed. Continue home gabapentin. ? BPH with obstructive symptoms: Continue home Flomax. ? GERD: Continue home PPI. DVT prophylaxis: SCDs CODE STATUS: Full code, unverified Expected disposition: Back to fdc, 2 to 3 days Total clinical time spent by myself addressing the patient's medical issues, reviewing all the data, and collaborating with patient's care team: 75 minutes. Charges/Coding Visit Charges Inpatient E&M: 15106 Init Hosp L3
--- NOTE | 2024-11-07 16:19 | ED.RN ---
family updated on admission
[2024-11-07] MEDS: Furosemide 40 MG/4 ML Vial IV (16:31)
--- NOTE | 2024-11-07 18:52 | ECHOD_ITS ---
Reason For Study Reason For Study: CHF Procedure This was a 2D Doppler, Color Flow transthoracic echocardiogram. Patient scanned supine due to condition. Exam performed portable in patient room. Left Ventricle Normal LV size. Moderate concentric left ventricular hypertrophy. Left ventricular systolic function is normal. The left ventricular ejection fraction is 65 %. Stage 3 diastolic dysfunction. No regional wall motion abnormalities noted. Right Ventricle Normal RV size. Normal systolic function. Atria Normal left atrium. Normal right atrium. Mitral Valve Bileaflet diffuse mitral valve thickening. Mild (1+) eccentric mitral valve insufficiency. Tricuspid Valve Normal tricuspid valve. Mild (1+) tricuspid valve insufficiency. Pulmonary artery systolic pressure is 36 mmHg. Aortic Valve Trisinus/trileaflet aortic valve. Mild focal aortic valve calcification. Trivial aortic valve insufficiency. Pulmonic Valve Normal pulmonic valve. Great Vessels Normal aortic root. The pulmonary artery is normal size. Inferior vena cava collapse with respiration. Pericardium/Pleural No pericardial effusion. MMode/2D Measurements & Calculations LVIDd: 3.7 cm IVSd: 1.4 cm Ao root diam: 3.7 cm LVIDs: 2.6 cm LVPWd: 1.5 cm RVDd: 3.5 cm FS: 28.4 % LAV(MOD-bp): 81.2 ml LVAd ap4: 26.2 cm2 SV(MOD-sp4): 50.6 ml LAV(MOD-bp) Indexed: 40.9 ml/m2 LVLd ap4: 7.6 cm SI(MOD-sp4): 25.5 ml/m2 LAV(MOD-sp2): 80.5 ml EDV(MOD-sp4): 74.3 ml LAV(MOD-sp4): 79.1 ml EDV(sp4-el): 76.9 ml LVAs ap4: 13.9 cm2 LVLs ap4: 6.5 cm ESV(MOD-sp4): 23.8 ml ESV(sp4-el): 25.3 ml EF(MOD-sp4): 68.0 % EF(sp4-el): 67.1 % SV(sp4-el): 51.6 ml LA A4 area: 24.0 cm2 LA dimension(2D): 4.6 cm RA A4 area: 16.8 cm2 TAPSE: 1.2 cm Time Measurements MV dec time: 0.17 sec Doppler Measurements & Calculations MV E max tariq: 140.4 cm/sec Lat Peak E' Tariq: 8.5 cm/sec Med Peak E' Tariq: 7.7 cm/sec MV A max tariq: 56.2 cm/sec E/E' lat: 16.5 E/E' med: 18.1 MV E/A: 2.5 MV V2 max: 158.7 cm/sec MV P1/2t max tariq: 160.6 cm/sec Ao V2 max: 154.5 cm/sec MV max P.1 mmHg MV P1/2t: 68.1 msec Ao max P.6 mmHg MV V2 mean: 65.7 cm/sec Ao V2 mean: 102.8 cm/sec MV mean P.4 mmHg MV dec slope: 690.5 cm/sec2 Ao mean P.9 mmHg MV V2 VTI: 41.5 cm MVA(P1/2t): 3.2 cm2 Ao V2 VTI: 31.9 cm AV (velocity ratio): 0.80 AI max tariq: 313.8 cm/sec LV V1 max: 116.0 cm/sec MR max tariq: 430.3 cm/sec AI max P.4 mmHg LV V1 max P.4 mmHg MR max P.1 mmHg LV V1 mean P.0 mmHg MR mean tariq: 328.2 cm/sec AI dec slope: 222.2 cm/sec2 LV V1 mean: 80.7 cm/sec MR mean P.5 mmHg AI P1/2t: 413.7 msec LV V1 VTI: 25.5 cm MR VTI: 131.1 cm PA V2 max: 129.5 cm/sec TR max tariq: 289.0 cm/sec TR max P.4 mmHg ECHO/Echo Complete Interpretation Summary Normal LV size. Left ventricular systolic function is normal. Mild (1+) eccentric mitral valve insufficiency. Bileaflet diffuse mitral valve thickening. Moderate concentric left ventricular hypertrophy. The left ventricular ejection fraction is 65 %. Stage 3 diastolic dysfunction. Ordering Physician: Andrey Mitchell Referring Physician: Andrey Mitchell Performed By: Leonidas Davis RCS
--- NOTE | 2024-11-07 21:24 | CON.PCM.GI_ITS ---
HPI Consult Data Date of Consult: 11/07/24 HPI Narrative Reason for Consultation: Anemia HPI Narrative: ANGIE DUTTON, is a 84 M who presents to the emergency room with a report of anemia. Patient reportedly had blood work done this morning showed a hemoglobin of 6.2. He is on reportedly Eliquis and Plavix. He had a right hip replacement in September. He has a baseline anemia around 8. He states he has not been having black or bloody stools but he still also states that it is hard for him to see the stool given the size of his bathroom. He states he has been in the senior care for about a month and states that he is growing weaker. He notes that his legs are more swollen than normal. Patient states that sometime last night due to shortness of breath. He denied any chest pain palpitations. He denies any cough or fever. He has not been having short of breath. WBC 5.2, Hgb 7.2 L, MCV 96.1 H, MCH 28.3, Plt Count 117 L Sodium 138, Potassium 4.0, Chloride 102, Carbon Dioxide 23.5, Anion Gap 12, BUN 22 H, Creatinine 1.62 H, [facility] Medical History Kidney disease GERD (gastroesophageal reflux disease) Former tobacco use HLD (hyperlipidemia) CAD (coronary artery disease) History of chronic hypertension Right leg weakness Myocardial infarct Hypertension Vertigo Home Medications ?Medication ?Instructions ?Recorded ?Last Taken ?Type clopidogrel 75 mg tablet 75 mg PO DAILY anti platelet 08/23/19 06/25/21 History isosorbide mononitrate 30 mg 15 mg PO DAILY HEART 07/2606/25/21 History tablet,extended release 24 hr gabapentin 400 mg capsule 400 mg PO BID NERVE PAIN 10/1406/25/21 History pantoprazole 20 mg tablet,delayed 20 mg PO BID GERD 06/25/21 History release simvastatin 40 mg tablet 40 mg PO DAILY CHOLESTEROL 1 08/25/20 06/24/21 History trazodone 50 mg tablet 50 mg PO QHS SLEEP 06/25/21 06/24/21 History ezetimibe 10 mg tablet 10 mg PO DAILY 09/24/23 Unkn own History apixaban 5 mg tablet (Eliquis) 5 mg PO BID #60 tabs Unknown Rx metoprolol succinate 50 mg 50 mg PO DAILY #30 tabs 11/14 Unknown Rx tablet,extended release 24 hr acetaminophen 500 mg capsule 1,000 mg PO Q8H PRN PRN f ever or 11/07/24 Unknown History pain acetaminophen 650 mg rectal 650 mg [place] Q4H PRN fever or pain 11/07/24 Unknown History suppository aluminum-magnesium hydroxide 200 30 ml PO Q4H PRN dysp epsia 11/07/24 Unknown History mg-200 mg/5 mL oral suspension (MAG-AL) amiodarone 200 mg tablet 200 mg PO DAILY 11/07/24 Unk nown History amiodarone 400 mg tablet 400 mg PO DAILY 11/07/24 Unk nown History ascorbic acid (vitamin C) 500 mg 500 mg PO BID SUPPLEM ENT 11/07/24 Unknown History capsule bisacodyl 10 mg rectal suppository 10 mg [place] DAILY PRN constipation 11/07/24 Unknown History docusate sodium 100 mg capsule 100 mg PO DAILY 5 Unknown History ferrous sulfate 325 mg (65 mg 325 mg PO DAILY 11/07/24 Unknown History iron) tablet (FeroSul) furosemide 20 mg tablet 20 mg PO DAILY 11/07/24 Unkn own History glucagon 1 mg solution for 1 mg IM Q20M PRN hypoglycem ia 11/07/24 Unknown History injection (Glucagon Emergency Kit) guaifenesin 100 mg/5 mL oral 200 mg PO Q4H PRN congest ion 11/07/24 Unknown History liquid (Adult Tussin Chest Congestion) hydroxyzine HCl 25 mg tablet 25 mg PO TID PRN anxiety 11/07/24 Unknown History magnesium hydroxide 400 mg/5 mL 30 ml PO DAILY PRN con stipation 11/07/24 Unknown History oral suspension (Milk of Magnesia) metformin 500 mg tablet,extended 500 mg PO DAILY 11/07 Unknown History release 24 hr ondansetron 4 mg disintegrating 4 mg PO Q6H PRN nausea and vomiting 11/07/24 Unknown History tablet polyethylene glycol 3350 17 17 g PO DAILY 11/07/24 Unk nown History gram/dose oral powder (ClearLax) sodium phosphates 19 gram-7 118 ml [place] DAILY PRN consti pation 11/07/24 Unknown History gram/118 mL enema (Fleet Enema) tamsulosin 0.4 mg capsule 0.4 mg PO Q24H 11/07/24 Unkn own History Allergy/AdvReac Type Severity Reaction Status Date / Time Sulfa (Sulfonamide Allergy Unknown Verified 03/25/24 10:25 Antibiotics) Family History Mother Heart disease Father Heart disease Surgical History Status post arthroscopic knee surgery S/P bilateral foot surgery S/p bilateral carpal tunnel release S/P tonsillectomy and adenoidectomy S/P bilateral cataract extraction S/P CABG x 3 Stented coronary artery H/O right heart catheterization Social History household members: spouse Smoking Status: Former smoker how long ago did patient quit smoking: Quit when he was 44 y/o, 1/2 ppd since 10 years old. alcohol intake: never substance use type: does not use ROS Constitutional Constitutional: Reports fatigue and weakness; Denies chills or fever(s) Eyes Eyes: Denies change in vision Cardiovascular Cardiovascular: Denies chest pain Respiratory/Chest Respiratory/Chest: Denies shortness of breath at rest Gastrointestinal Gastrointestinal: Denies abdominal pain, constipation, diarrhea, nausea or vomiting Musculoskeletal Musculoskeletal: Denies arthralgias or myalgias Physical Exam Const alert, no apparent distress and average body habitus General Appearance: cooperative and comfortable HEENT normocephalic, head/scalp atraumatic, hearing grossly normal bilaterally, nasal mucous membranes and turbinates normal and moist oral mucous membranes Eyes PERRL, EOMs intact bilaterally and conjunctivae normal Neck full ROM Chest inspection of chest normal Resp normal respiratory effort, normal air movement, no use of accessory muscles and clear to auscultation bilaterally Cardio regular rate, regular rhythm, no murmurs and peripheral pulses 2+ throughout GI normal to inspection, nondistended, normoactive bowel sounds, soft to palpation, non-tender and non-distended Back/Spine normal ROM Extremity Extremity Narrative: +3-4 lower extremity pitting edema noted up to the knees. Skin no rashes or lesions noted Neuro moves all extremities and no focal motor deficits Speech: speech normal Psych mental status grossly normal Lab / Micro Data 11/07/24 13:40 11/07/24 13:40 Labs: Laboratory Results - last 24 hr 11/07/24 13:40: WBC 5.2, RBC 2.54 L, Hgb 7.2 L, Hct 24.4 L, MCV 96.1 H, MCH 28.3, MCHC 29.5 L, RDW Std Deviation 58.0 H, RDW Coeff of Jaqueline 16.5 H, Plt Count 117 L, MPV 13.0 H, Immature Gran % (Auto) 0.800, Neut % (Auto) 66.7, Lymph % (Auto) 24.4, [place] % (Auto) 6.0, Eos % (Auto) 1.7, Baso % (Auto) 0.4, Absolute Neuts (auto) 3.4, Absolute Lymphs (auto) 1.26, Nucleated RBC % 0, Sodium 138, Potassium 4.0, Chloride 102, Carbon Dioxide 23.5, Anion Gap 12, BUN 22 H, C reatinine 1.62 H, Estim Creat Clear Calc 34.78 L, Est GFR (MDRD) Non-Af 41 L, BUN/Creatinine Ratio 13.5, Glucose 120 H, Calcium 8.4, Blood Type O POSITIVE, Antibody Screen NEGATIVE, Crossmatch See Detail Micro: Microbiology 11/07/24 15:12 Stool Stool Occult Blood (JOVANY) - Final Occult Blood Positive Imaging Radiology Impression Chest X-Ray 11/07/24 15:15 IMPRESSION: 1. Limited hypoinflated exam. Cardiomegaly with central vascular prominence and suspected trace pulmonary edema. 2. Additional description as above. Reading Location: [id number] Assessment & Plan Assessment/Plan (1) Acute on chronic anemia: (2) GI bleed: (3) Acute heart failure with preserved ejection fraction (HFpEF): PLAN: Plan Patient is an 84-year-old male who presented to [facility] ED on 11/07/2024 with acute on chronic anemia and concern for GI bleed. Acute on chronic anemia with concern for GI bleed ? In the setting thrombocytopenia possibley secondary to cirrhosis, B12 deficiency, Atrophic grastrititis with acute blood loss anemia possibly secondary to peptic ulcer disease. He will need to undergo endoscopy. Charges/Coding Visit Charges Inpatient E&M: 28034 Init Hosp L3
[2024-11-07] MEDS: Gabapentin 400 MG Capsule PO (22:14)
[2024-11-07] MEDS: Pantoprazole Sodium 20 MG Tablet PO (22:15)
[2024-11-07] MEDS: Atorvastatin Calcium 20 MG Tablet PO (22:17)
[2024-11-08] VITALS (15 sets, daily range): BP systolic 96–118; BP diastolic 48–64; PULSE 64–70; RESP 14–19; TEMP 36.6–37.4; O2SAT 91–98; BMI 28.5
[2024-11-08 01:27] LABS: Bedside Glucose 110 mg/dL (74-106)
--- NOTE | 2024-11-08 05:55 | EKG12_ITS ---
Test Reason : AM EKG Blood Pressure : */* mmHG Vent. Rate : 65 BPM Atrial Rate : 326 BPM P-R Int : * ms QRS Dur : 140 ms QT Int : 466 ms P-R-T Axes : * 253 25 degrees QTcB Int : 484 ms Normal sinus rhythm Right bundle branch block Abnormal ECG When compared with ECG of 07-Nov-2024 15:22, MANUAL COMPARISON REQUIRED DATA IS UNCONFIRMED Confirmed by PAULINO MEZA, EDILAI ([id number]), editorial cartoonist ESTEPHANIA MCKENZIE ([id number]) on 11/08/2024 8:22:26 AM Referred By: Andrey Mitchell Confirmed By: EDILIA BOB MD
[2024-11-08 06:43] LABS: Bedside Glucose 95 mg/dL (74-106)
[2024-11-08 07:19] LABS: Hematocrit 23.9 % (40-54); Hemoglobin 7.2 g/dL (13.0-16.5); Mean Corp Hgb Conc 30.1 g/dL (32-36); Mean Corpuscular Hgb 28.3 pg (27.0-32.0); Mean Corpuscular Volume 94.1 fL (80-94); Mean Platelet Vol. 13.3 fl (6.2-12.0); Platelet Count 100 K/mm3 (150-450); RBC Distribution Width CV 16.3 % (11.6-14.6); RBC Distribution Width SD 55.7 fl (35.1-43.9); Red Blood Count 2.54 M/mm3 (4.6-6.2); White Blood Count 3.7 K/mm3 (4.4-11.0)
[2024-11-08 08:14] LABS: Anion Gap 12 (5-15); BUN 22 mg/dL (4-19); BUN/Creat Ratio 14.2 RATIO (10-20); Calcium,Total 8.2 mg/dL (7.6-11.0); Carbon Dioxide 22.9 mmol/L (21.0-32.0); Chloride 104 mmol/L (98-108); Creatinine, Serum 1.56 mg/dL (0.70-1.20); EST Glomerular Filtration Rate 43 (>60); Estimated Creatinine Clearance 36.12 ml/min (50-250); Glucose 92 mg/dL (70-99); Potassium 4.2 mmol/L (3.3-5.1); Sodium Level 139 mmol/L (133-145)
[2024-11-08 09:01] LABS: Pro- Brain NATRIURETIC PEPTIDE 5530 pg/mL (<=1800)
--- NOTE | 2024-11-08 10:08 | CASEMGMT ---
Addendum entered by Tg Kirby 11/08/24 10:23: Precert will be needed. SW updated. Tg Kirby DC Planning Asst. Original Note: Discharge Planning Updates sent to CC with note asking if precert is needed. Tg Kirby DC Planning Asst
[2024-11-08] MEDS: Pantoprazole Sodium 20 MG Tablet PO (10:36)
--- NOTE | 2024-11-08 11:27 | CASEMGMT ---
Patient is from [facility]. SW met with patient. Introduced self and role at [facility]. Patient confirmed his plan is to return to [facility] at discharge. Plan: d/c back to [facility] pending being medically ready and insurance approving. Selene GONZALEZ
[2024-11-08 11:53] LABS: Bedside Glucose 91 mg/dL (74-106)
--- NOTE | 2024-11-08 12:20 | PN_ITS ---
Subjective Subjective Patient seen and examined. He had no active complaints. He denied having had any dark stools overnight. Review of systems is otherwise negative. He is on room air. He is due for EGD today. Objective Data Objective Data Vital Signs: Vital Signs Temp Pulse Resp BP Pulse Ox O2 Del Method 98.1 F 65 17 100/48 L 96 Room Air 11/08/24 10:32 11/08/24 10:32 11/08/24 10:32 11/08/24 10:32 11/08/24 10:32 11/08/24 10:32 Oxygen Delivery Method Room Air Weight: 187 lb 13.341 oz Body Mass Index (BMI) 28.4 Intake & Output: Intake and Output for Last 24 Hours 11/06/24 11/07/24 11/08/24 23:59 23:59 23:59 Intake Total 0 / 0 Output Total 800 / 800 500 / 500 Balance -800 / -800 -500 / -500 Lab / Micro Data 11/08/24 06:27 11/08/24 06:27 Labs: Laboratory Results - last 24 hr 11/07/24 13:40: WBC 5.2, RBC 2.54 L, Hgb 7.2 L, Hct 24.4 L, MCV 96.1 H, MCH 28.3, MCHC 29.5 L, RDW Std Deviation 58.0 H, RDW Coeff of Jaqueline 16.5 H, Plt Count 117 L, MPV 13.0 H, Immature Gran % (Auto) 0.800, Neut % (Auto) 66.7, Lymph % (Auto) 24.4, Troup % (Auto) 6.0, Eos % (Auto) 1.7, Baso % (Auto) 0.4, Absolute Neuts (auto) 3.4, Absolute Lymphs (auto) 1.26, Nucleated RBC % 0, Sodium 138, Potassium 4.0, Chloride 102, Carbon Dioxide 23.5, Anion Gap 12, BUN 22 H, C reatinine 1.62 H, Estim Creat Clear Calc 34.78 L, Est GFR (MDRD) Non-Af 41 L, BUN/Creatinine Ratio 13.5, Glucose 120 H, Calcium 8.4, Blood Type O POSITIVE, Antibody Screen NEGATIVE, Crossmatch See Detail 11/07/24 22:13: POC Glucose 110 H 11/08/24 06:25: POC Glucose 95 03/18/25 06:27: WBC 3.7 L, RBC 2.54 L, Hgb 7.2 L, Hct 23.9 L, MCV 94.1 H, MCH 28.3, MCHC 30.1 L, RDW Std Deviation 55.7 H, RDW Coeff of Jaqueline 16.3 H, Plt Count 100 L, MPV 13.3 H, Sodium 139, Potassium 4.2, Chloride 104, Carbon Dioxide 22.9, Anion Gap 12, BUN 22 H, Creatinine 1.56 H, Estim Creat Clear Calc 36.12 L, Est GFR (MDRD) Non-Af 43 L, BUN/Creatinine Ratio 14.2, Glucose 92, Calcium 8.2, NT pro BNP II 5530 H 11/08/24 11:35: POC Glucose 91 Micro: Microbiology 11/07/24 15:12 Stool Stool Occult Blood (JOVANY) - Final Occult Blood Positive Radiography Diagnostic Testing: Radiology Impression Chest X-Ray 11/07/24 15:15 IMPRESSION: 1. Limited hypoinflated exam. Cardiomegaly with central vascular prominence and suspected trace pulmonary edema. 2. Additional description as above. Reading Location: [facility] Physical Exam Const alert, oriented x3 and no apparent distress General Appearance: cooperative and well developed HEENT normocephalic, head/scalp atraumatic, moist oral mucous membranes and oropharynx normal Eyes PERRL and EOMs intact bilaterally Neck no lymphadenopathy and supple Lymph Lymphatic: no lymphadenopathy noted and no lymphedema noted Resp Resp Narrative: mildly diminished breath sounds bibasally, no wheezes or crackles. On room air. Cardio regular rate, regular rhythm, S1 normal heart sound and S2 normal heart sound GI normal to inspection, nondistended, normoactive bowel sounds, soft to palpation, non-tender and non-distended Extremity normal capillary refill, no clubbing, cyanosis or edema and no calf tenderness General Extremity: no tenderness to palpation of joints or extremities Skin General Skin Exam: no breakdown Neuro CN's II-XII intact bilaterally, no focal motor deficits and no sensory deficits noted Motor Exam: strength 5/5 throughout and general weakness Psych thought process normal, cooperative and affect normal Appearance: appropriate Assessment & Plan Assessment/Plan (1) Acute heart failure with preserved ejection fraction (HFpEF): (2) Acute on chronic anemia: PLAN: Plan #Acute on chronic anemia due to GI bleed * stool for occult blood is positive. * s/p transfusion of 2 units of PRBCs. * hb today is 7.2 * start IV pantoprazole. * for EGD today * gastroenterology on board. * #Acute HFpEF * has known EF of 65% from echo done in September 2023, with mild LV hypertrophy, stage II diastolic dysfunction and mild pulmonary hypertension. * had 3-4+ edema and CXR with cardiomegaly and central venous prominence. * 2D echo ordered * on IV lasix bid. * #PEG: * Cr was 1.6 on admission. Down to 1.56 today. * Baseline Cr is ~ 1.3. Will monitor. * hydrate gently with IVF. #Debility due to recent right total hip replacement * had total hip replacement done at [facility] on 10/07/2024. * PT/OT on board. * #Paroxysmal afib * on metoprolol and amiodarone. Eliquis on hold due to GI bleed * #Type 2 diabetes mellitus: metformin held. ISS. Accuchecks ACHS #CAD s/p CABG: on imdur and ezetimibe as well as statin. Plavix on hold. #Hypertension: on metoprolol. 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 #GERD: on PPI DVT prophylaxis: SCDs. Charges/Coding Visit Charges Inpatient E&M: 59888 Subs Hosp L2
[2024-11-08] MEDS: 0.9% Saline Lock 10 ML Syringe IV (16:16)
[2024-11-08 16:32] LABS: Bedside Glucose 81 mg/dL (74-106)
--- NOTE | 2024-11-08 18:13 | PN_ITS ---
Progress Note Patient has been n.p.o. for EGD today regarding upper GI bleed and persistent anemia. Physical Exam Const alert, oriented x3 and no apparent distress General Appearance: cooperative and well developed HEENT normocephalic, head/scalp atraumatic, moist oral mucous membranes and oropharynx normal Eyes PERRL and EOMs intact bilaterally Neck no lymphadenopathy and supple Lymph Lymphatic: no lymphadenopathy noted and no lymphedema noted Resp Resp Narrative: mildly diminished breath sounds bibasally, no wheezes or crackles. On room air. Cardio regular rate, regular rhythm, S1 normal heart sound and S2 normal heart sound GI normal to inspection, nondistended, normoactive bowel sounds, soft to palpation, non-tender and non-distended Extremity normal capillary refill, no clubbing, cyanosis or edema and no calf tenderness General Extremity: no tenderness to palpation of joints or extremities Skin General Skin Exam: no breakdown Neuro CN's II-XII intact bilaterally, no focal motor deficits and no sensory deficits noted Motor Exam: strength 5/5 throughout and general weakness Psych thought process normal, cooperative and affect normal Appearance: appropriate Assessment & Plan Assessment/Plan (1) Acute on chronic anemia: (2) GI bleed: (3) Acute heart failure with preserved ejection fraction (HFpEF): PLAN: Plan Patient is an 84-year-old male who presented to [facility] ED on 11/07/2024 with acute on chronic anemia and concern for GI bleed. Acute on chronic anemia with concern for GI bleed ? In the setting thrombocytopenia possibley secondary to cirrhosis, B12 deficiency, Atrophic grastrititis with acute blood loss anemia possibly secondary to peptic ulcer disease. He will need to undergo egd today. Visit Charges Inpatient E&M: 68095 Subs Hosp L2
--- NOTE | 2024-11-08 18:19 | PCM.PRE.AN2 ---
ASA Classification* ASA Classification ASA Classification: 3 Assessment & Plan Anesthesia* Anesthesia Assessment Anesthesia Assessment: Discussed sedation and/or anesthesia options, risks, benefits, and alternatives with patient/parents/legal guardian/POA. Questions invited. The patient/parents/legal guardian/POA seems to understand and agrees to proceed with anesthesia plan. Reviewed the physical assessment, medical history, allergy history and patient home medications list prior to surgery/procedure/anesthetic and documented any changes. Performed airway and anesthesia risk assessments. Anesthesia Type Anesthesia Type: General History Source History Obtained from:: Patient and Chart Anesthesia Focused Assessment* Temperature: 98.1 F Pulse Rate: 65 Blood Pressure: 109/51 Respiratory Rate: 17 Pulse Ox: 96 Airway Assessment Mouth opens: >3 cm Mallampati Score: II Teeth Condition: Chipped/Broken (bad teeth many missing) and Missing Neck Range of motion (ROM): Full ROM Focused Labs Anesthesia Preop lab: CBC WBC 3.7 K/mm3 (4.4-11.0) L 11/08/24 06:11/08/24 RBC 2.54 M/mm3 (4.6-6.2) L 11/08/24 06:27 11/08/24 Hgb 7.2 g/dL (13.0-16.5) L 11/08/24 06:11/08/24 Hct 23.9 % (40-54) L 11/08/24 06:27 11/08/24 Plt Count 100 K/mm3 (150-450) L 11/08/24 06:27 11/08/24 CHEMISTRY Potassium 4.2 mmol/L (3.3-5.1) 11/08/24 06:27 11/08/24 Sodium 139 mmol/L (133-145) 11/08/24 06:27 11/08/24 Magnesium 2.3 mg/dL (1.5-2.2) H 11/07/24 06:00 11/07/24 BUN 22 mg/dL (4-19) H 11/08/24 06:11/08/24 Creatinine 1.56 mg/dL (0.70-1.20) H 11/08/24 06:11/08/24 Glucose 92 mg/dL (70-99) 11/08/24 06:11/08/24 POC Glucose 81 mg/dL (74-106) 11/08/24 16:12 11/08/24 TSH 0.76 uIU/mL (0.358-3.74) 09/25/23 05:30 09/25/23 COAG PT 13.5 SECONDS (11.7-14.9) 09/24/23 14:10 09/24/23 Pre-Assessment Diagnosis/Proposed Procedure Planned Operative Procedure(s): EGD Anesthesia History Anesthesia History - education and outreach coordinator: Anesthesia History - education and outreach coordinator Hx Hospitalization Any Problems With Anesthesia No 11/08/24 10:46 Cholinesterase deficiency No 11/08/24 10:46 You/Your Family Experience No 11/08/24 10:46 fever (hyperthermia) with Relationship Recent Exposure to Contagious No 11/08/24 10:46 Disease Does patient have nerve No 11/08/24 10:46 stimulator Patient instructed to have device shut off --Does patient have Pacemaker No 11/08/24 16:08 or ICD? When Was Last Pacemaker Check QUESTION #4 FULL TEXT: You/Your Family Experience fever (hyperthermia) with Anesthesia Last Oral Intake Last Oral intake: Last Oral Intake NPO since 00:00 11/08/24 16:08 Meds taken in AM with sips of Yes 11/08/24 16:08 water? Meds patient instructed to protonix 11/08/24 16:08 take am of surgery PONV PONV - education and outreach coordinator: PONV - education and outreach coordinator Female HX of Motion Sickness HX of N/V After Surgery Non-Smoker Duration of Surgery greater than 60 minutes Number of Risk Factors PONV Score Height & Weight Height & Weight: Anesthesia: Height & Weight Height 5 ft 8 in 11/08/24 16:08 Weight: 85.2 kg 11/08/24 16:08 Body Mass Index (BMI) 28.5 11/08/24 16:08 Respiratory Assessment Respiratory Assessment - education and outreach coordinator: Respiratory Tract Infection Hx - education and outreach coordinator Hx Respiratory Tract Infection No 11/08/24 10:46 STOP Sleep Apnea STOP Sleep Apnea - education and outreach coordinator: STOP Sleep Apnea - education and outreach coordinator Hx Hypertension Yes 11/08/24 13:05 Hx Sleep Apnea No 11/07/24 17:44 CPAP BIPAP Do you snore loudly (louder No 11/07/24 17:44 than talking or can be heard Do you often feel tired/ No 11/07/24 17:44 fatigued/ sleepy during daytime? Has anyone observed you stop No 11/07/24 17:44 breathing during sleep? STOP Results Negative 11/07/24 17:44 QUESTION #5 FULL TEXT : Do you snore loudly (louder than talking or can be heard through closed doors)? Tobacco Use History Tobacco Use History - education and outreach coordinator: Tobacco Use History - education and outreach coordinator Tobacco Use Smoking Status Former smoker 11/07/24 17:44 Hx Tobacco Use No 11/07/24 17:44 Years Smoking Packs Smoked per Day Smoking Cessation Date was No - quit smoking greater 11/07/24 17:44 within the last 15 years than 15 years ago Hx Smoking Cessation Date 06/25/80 11/07/24 17:44 Hx Smoking Cessation No 11/07/24 17:44 Counseling Hematologic Medial History Hematologic Hx - education and outreach coordinator: Hematologic Medical Hx - supervisor gate services Hx of Blood Transfusion No 11/07/24 17:44 Hx of Transfusion in last 3 No 11/07/24 17:44 Months Date of Last Transfusion (if within last 3 months) Ever experience any problems No 11/07/24 17:44 with transfusion(s)? Specify any problems Hx of Preganancy in last 3 N/A 11/07/24 17:44 Months Nurse Filling Out Transfusion [facility] 11/07/24 17:44 & Questions: Date: 11/07/24 11/07/24 17:44 Time: 17:59 11/07/24 17:44 Patient unable to answer at this time (ie. confused, unrespo /Reproduction History /Reproductive History - education and outreach coordinator: /Reproductive Hx- education and outreach coordinator Hx Now No 11/08/24 10:46 Gestational Age (in weeks): EDC: Hx Hx Para Hx Section SAB No 11/08/24 10:46 Active Medications Active Medications: Current Medications Generic Name Dose Route Start Last Admin Trade Name Freq PRN Reason Stop Dose Admin Acetaminophen 650 mg 11/07/24 17:34 Acetaminophen 325 Mg Tablet PO Q6H PRN PRN Pain 1-10 Or Fever>100.7 Amiodarone HCl 200 mg 11/08/24 10:00 11/08/24 10:41 Amiodarone 200 Mg Tablet PO Not Given DAILY [facility] Ascorbic Acid 500 mg 11/08/24 10:00 11/08/24 10:42 Ascorbic Acid 500 Mg Tablet PO Not Given DAILY [facility] Atorvastatin Calcium 20 mg 11/07/24 22:00 11/07/24 22:17 Atorvastatin Calcium 20 Mg Tablet PO 20 mg QHS [facility] Administration Bisacodyl 10 mg 11/07/24 17:34 Bisacodyl 10 Mg Suppository RC DAILY PRN constipation Ezetimibe 10 mg 11/08/24 10:00 11/08/24 15:58 Ezetimibe 10 Mg Tablet PO Not Given DAILY [facility] Furosemide 40 mg 11/08/24 10:00 Furosemide 40 Mg/4 Ml Vial IV DAILY [facility] Protocol Gabapentin 400 mg 11/07/24 22:00 11/08/24 10:42 Gabapentin 400 Mg Capsule PO Not Given BID [facility] Glucagon 1 mg 11/07/24 18:54 Glucagon 1 Mg/Ml Syringe IM X1 PRN Hypoglycemia Protocol Hydroxyzine Pamoate 25 mg 11/07/24 17:34 Hydroxyzine Hyacinth 25 Mg Capsule PO TID PRN anxiety Dextrose 250 mls @ 0 mls/hr 11/07/24 18:54 Dextrose 10%-Water IV .Q0M PRN HYPOGLYCEMIA Protocol As Directed Pantoprazole Sodium 40 mg/ 110 mls @ 330 mls/hr 11/08/24 22:00 Sodium Chloride IV Q12 [facility] Insulin Human Lispro 0 unit 11/07/24 22:00 11/08/24 16:14 Insulin Lispro 100 Unit/Ml Insuln.Pen SC Not Given ACHS [facility] Protocol Isosorbide Mononitrate 15 mg 11/08/24 10:00 11/08/24 10:41 Isosorbide Mononitrate 30 Mg Tablet PO Not Given DAILY [facility] Protocol Melatonin 3 mg 11/07/24 17:34 Melatonin 3 Mg Tablet PO QHS PRN PRN INSOMNIA Metoprolol Succinate 50 mg 11/08/24 10:00 11/08/24 10:42 Metoprolol(Xl)Succ 50 Mg Tablet PO Not Given DAILY [facility] Protocol Ondansetron HCl 4 mg 11/07/24 17:34 Ondansetron 4 Mg/2 Ml Vial IV Q8H PRN PRN NAUSEA/VOMITING Sodium Chloride 10 - 40 ml 11/07/24 18:15 11/08/24 16:16 0.9% Saline Lock 10 Ml Syringe IV 10 ml UD PRN Administration SALINE FLUSH Tamsulosin HCl 0.4 mg 11/08/24 10:00 11/08/24 16:57 Tamsulosin Hcl 0.4 Mg Capsule PO Not Given DAILY [facility] Trazodone HCl 50 mg 11/07/24 17:34 Trazodone 50 Mg Tablet PO QHS PRN sleep PFSH Medical History Kidney disease GERD (gastroesophageal reflux disease) Former tobacco use HLD (hyperlipidemia) CAD (coronary artery disease) History of chronic hypertension Right leg weakness Myocardial infarct Hypertension Vertigo Home Medications ?Medication ?Instructions ?Recorded ?Last Taken ?Type clopidogrel 75 mg tablet 75 mg PO DAILY anti platelet 08/23/19 06/25/21 History isosorbide mononitrate 30 mg 15 mg PO DAILY HEART 08/23/19 06/25/21 History tablet,extended release 24 hr gabapentin 400 mg capsule 400 mg PO BID NERVE PAIN 06/25/21 06/25/21 History pantoprazole 20 mg tablet,delayed 20 mg PO BID GERD 06/25/21 06/25/21 History release simvastatin 40 mg tablet 40 mg PO DAILY CHOLESTEROL 06/25/21 06/24/21 History trazodone 50 mg tablet 50 mg PO QHS SLEEP 06/25/21 06/24/21 History ezetimibe 10 mg tablet 10 mg PO DAILY 09/24/23 Unknown History apixaban 5 mg tablet (Eliquis) 5 mg PO BID #60 tabs 09/26/23 Unknown Rx metoprolol succinate 50 mg 50 mg PO DAILY #30 tabs 09/26/23 Unknown Rx tablet,extended release 24 hr acetaminophen 500 mg capsule 1,000 mg PO Q8H PRN PRN fever or 11/07/24 Unknown History pain acetaminophen 650 mg rectal 650 mg WA Q4H PRN fever or pain 11/07/24 Unknown History suppository aluminum-magnesium hydroxide 200 30 ml PO Q4H PRN dyspepsia 11/07/24 Unknown History mg-200 mg/5 mL oral suspension (MAG-AL) amiodarone 200 mg tablet 200 mg PO DAILY 11/07/24 Unknown History amiodarone 400 mg tablet 400 mg PO DAILY 11/07/24 Unknown History ascorbic acid (vitamin C) 500 mg 500 mg PO BID SUPPLEMENT 11/07/24 Unknown History capsule bisacodyl 10 mg rectal suppository 10 mg WA DAILY PRN constipation 11/07/24 Unknown History docusate sodium 100 mg capsule 100 mg PO DAILY 11/07/24 Unknown History ferrous sulfate 325 mg (65 mg 325 mg PO DAILY 11/07/24 Unknown History iron) tablet (FeroSul) furosemide 20 mg tablet 20 mg PO DAILY 11/07/24 Unknown History glucagon 1 mg solution for 1 mg IM Q20M PRN hypoglycemia 11/07/24 Unknown History injection (Glucagon Emergency Kit) guaifenesin 100 mg/5 mL oral 200 mg PO Q4H PRN congestion 11/07/24 Unknown History liquid (Adult Tussin Chest Congestion) hydroxyzine HCl 25 mg tablet 25 mg PO TID PRN anxiety 11/07/24 Unknown History magnesium hydroxide 400 mg/5 mL 30 ml PO DAILY PRN constipation 11/07/24 Unknown History oral suspension (Milk of Magnesia) metformin 500 mg tablet,extended 500 mg PO DAILY 11/07/24 Unknown History release 24 hr ondansetron 4 mg disintegrating 4 mg PO Q6H PRN nausea and vomiting 11/07/24 Unknown History tablet polyethylene glycol 3350 17 17 g PO DAILY 11/07/24 Unknown History gram/dose oral powder (ClearLax) sodium phosphates 19 gram-7 118 ml WA DAILY PRN constipation 11/07/24 Unknown History gram/118 mL enema (Fleet Enema) tamsulosin 0.4 mg capsule 0.4 mg PO Q24H 11/07/24 Unknown History Allergy/AdvReac Type Severity Reaction Status Date / Time Sulfa (Sulfonamide Allergy Unknown Verified 03/25/24 10:25 Antibiotics) Family History Mother Heart disease Father Heart disease Surgical History Status post arthroscopic knee surgery S/P bilateral foot surgery S/p bilateral carpal tunnel release S/P tonsillectomy and adenoidectomy S/P bilateral cataract extraction S/P CABG x 3 Stented coronary artery H/O right heart catheterization Social History household members: spouse Smoking Status: Former smoker how long ago did patient quit smoking: Quit when he was 44 y/o, 1/2 ppd since 10 years old. alcohol intake: never substance use type: does not use Review of Systems (Anesthesia) ROS Narrative System reviewed and no additional complaints, except as documented. Physical Exam Const alert, oriented x3 and average body habitus Resp normal respiratory effort, normal air movement and clear to auscultation bilaterally Cardio regular rate, regular rhythm, no murmurs and diaphoretic
--- NOTE | 2024-11-08 18:20 | EGD_PTH ---
PATIENT: ANGIE DUTTON LOC: [facility] U#:[id number] AGE/SX: 84/M ROOM: [facility] RE11/07/[address]: Dr. Andrey Mitchell DO : 1940 BED: 1 DIS: 11/10/2024 SPEC #: [id number] RECD: 11/09/24 10:32 STATUS: IZABELA REQ #: [id number] BASILIO: 11/08/24 18:[address]: Slade Florez DEPT: SURGICAL PATHOLOGY RECD BY: Michael Powell ENTERED: 11/09/24 10:32 SP TYPE: EGD BIOPSY OT DR: Valery Quinteros, RN EMERGENCY ROOM DO Dr. uJ Lemos MD Tissues: A - Duodenum, NOS Procedures: Surgery Specimen Level IV HEADER OPERATION: EGD with biopsy and cauterization PRE-OP DIAGNOSIS: GI bleed TISSUE SUBMITTED: A- Duodenum biopsy MICROSCOPIC DIAGNOSIS Duodenum, biopsy: Duodenal mucosa with no histopathologic abnormalities (see comment)Marcello Torres MD, 11/14/2024 COMMENT 3 deeper levels are examined. MICROSCOPIC DESCRIPTION Slides are reviewed. GROSS DESCRIPTION A. Received in fixative is one container labeled with the patient's name and designated Duodenum biopsy. The specimen consists of one irregular fragment of light diaz soft tissue that measures 0.5 x 0.2 x 0.2 cm. The specimen is totally submitted in one cassette. MS/mr 11/09/2024 CPT:94345 , TC:4
--- NOTE | 2024-11-08 18:39 | OP.CCLET_ITS ---
11/08/2024 Valery Quinteros, [facility] Re : Upper GI endoscopy procedure for Tyshawn Coleman Neli This procedure was performed on Friday, November 08, 2024. My impressions and recommendations are as follows: Impressions : - Normal esophagus. - Three bleeding angiodysplastic lesions in the stomach. Treated with a heater probe. - Nodular mucosa in the first portion of the duodenum. Biopsied. Recommendations : - Return patient to hospital [facility] for ongoing care. - Resume regular diet. - Continue present medications. - Await pathology results. My findings are described in the full procedure note, which is enclosed. If I can be of further assistance, please feel free to contact me at . Sincerely, Slade Florez, 11/08/2024 6:39:12 PM This report has been signed electronically.
--- NOTE | 2024-11-08 18:39 | OP.EGD_ITS ---
Patient Name: Tyshawn Rolon Procedure Date: 11/08/2024 6:19 PM Date of : 1940 Age: 84 Procedure: Upper GI endoscopy Indications: Acute post hemorrhagic anemia, Mel[place] Providers: Slade Florez DO Referring MD: Andrey Mitchell Do Medicines: Monitored Anesthesia Care Patient Profile: This is an 84 year old male. Refer to note in patient chart for documentation of history and physical. Patient has symptoms. Complications: No immediate complications. Procedure: Pre-Anesthesia Assessment: - Prior to the procedure, a History and Physical was performed, and patient medications and allergies were reviewed. The patient is competent. The risks and benefits of the procedure and the sedation options and risks were discussed with the patient. All questions were answered and informed consent was obtained. Patient identification and proposed procedure were verified by the physician in the pre-procedure area. Mental Status Examination: alert and oriented. Respiratory Examination: clear to auscultation. CV Examination: normal. Prophylactic Antibiotics: The patient does not require prophylactic antibiotics. Prior Anticoagulants: The patient has taken no anticoagulant or antiplatelet agents. ASA Grade Assessment: III - A patient with severe systemic disease. After reviewing the risks and benefits, the patient was deemed in satisfactory condition to undergo the procedure. The anesthesia plan was to use monitored anesthesia care (MAC). Immediately prior to administration of medications, the patient was re-assessed for adequacy to receive sedatives. The heart rate, respiratory rate, oxygen saturations, blood pressure, adequacy of pulmonary ventilation, and response to care were monitored throughout the procedure. The physical status of the patient was re-assessed after the procedure. After obtaining informed consent, the endoscope was passed under direct vision. Throughout the procedure, the patient's blood pressure, pulse, and oxygen saturations were monitored continuously. The gastroscope was introduced through the mouth, and advanced to the fourth part of the duodenum. Small bowel enteroscopy was deemed necessary. The upper GI endoscopy was accomplished without difficulty. The patient tolerated the procedure well. Scope In: 6:30:24 PM Scope Out: 6:34:09 PM Total Procedure Duration Time 0 hours 3 minutes 45 seconds Findings: The examined esophagus was normal. Three 5 mm angiodysplastic lesions with bleeding were found on the lesser curvature of the stomach. Coagulation for hemostasis using heater probe was successful. Estimated blood loss was minimal. Localized nodular mucosa was found in the first portion of the duodenum. Biopsies were taken with a cold forceps for histology. Verification of patient identification for the specimen was done. Estimated blood loss was minimal. Impression: - Normal esophagus. - Three bleeding angiodysplastic lesions in the stomach. Treated with a heater probe. - Nodular mucosa in the first portion of the duodenum. Biopsied. Recommendation: - Return patient to hospital [facility] for ongoing care. - Resume regular diet. - Continue present medications. - Await pathology results. Procedure Code(s): --- Professional --- 00662, 59, Small intestinal endoscopy, enteroscopy beyond second portion of duodenum, not including ileum; with control of bleeding (eg, injection, bipolar cautery, unipolar cautery, laser, heater probe, stapler, plasma investigation lieutenant) 70465, 51, Small intestinal endoscopy, enteroscopy beyond second portion of duodenum, not including ileum; with biopsy, single or multiple CPT copyright 2021 [employer]. All rights reserved. The codes documented in this report are preliminary and upon roofer gypsum review may be revised to meet current compliance requirements. Slade Florez DO 11/08/2024 6:39:12 PM This report has been signed electronically. Number of Addenda: 0 Note Initiated On: 11/08/2024 6:19 PM
--- NOTE | 2024-11-08 18:42 | PCM.POST.ANE ---
Anesthesia: Postop Eval I Current Vital Signs Temperature: 98.2 F Pulse Rate: 64 Blood Pressure: 96/48 Respiratory Rate: 18 Pulse Ox: 91 Oxygen Delivery Method: Nasal Cannula (2 L ) Assessment Airway patent: Yes Spontaneous unlabored respirations: Yes Mental status: Awake nausea: No Vomiting: No Anesthesia Complication: No Fluid Hydration Crystalloid volume administer (ml): 500 Total IV fluid infused: 500 Progress Note Anesthesia document: Postop Eval 1 completed: Yes
--- NOTE | 2024-11-08 18:46 | PCM.POSTANE2 ---
Anesthesia Postop Eval I Sum Postop Eval Completion status Anesthesia document: Postop Eval 1 completed: Yes Anesthesia Postop Eval I Summary Anesthesia Postop Eval I Summary: Anesthesia Postop Eval I: Assessment Summary Airway patent Yes 11/08/24 18:46 Spontaneous unlabored Yes 11/08/24 18:46 respirations Mental status Awake 11/08/24 18:46 nausea No 11/08/24 18:46 Vomiting No 11/08/24 18:46 Anesthesia Postop Eval I: Fluid Summary Crystalloid volume administer 500 11/08/24 18:46 (ml) Colloids volume administered ( ml) Blood Product volume administered (ml) Total IV fluid infused 500 11/08/24 18:46 Anesthesia Postop Eval I: Summary Notes Anesthesia Complication No 11/08/24 18:46 Anesthesia Complication Comment: Post-operative progress note Anesthesia: Postop Eval II Evaluation Mental status: Awake Pain Level: 0 nausea: No Vomiting: No Complications Anesthesia Complication: No
[2024-11-08] MEDS: Pantoprazole Sodium 40 MG in 0.9% Normal Saline (100mL MB+) 100 ML 330 MG IV (22:28)
[2024-11-08] MEDS: Atorvastatin Calcium 20 MG Tablet PO (22:35)
[2024-11-08] MEDS: Gabapentin 400 MG Capsule PO (22:35)
[2024-11-08 23:08] LABS: Bedside Glucose 99 mg/dL (74-106)
[2024-11-09] VITALS (12 sets, daily range): BP systolic 96–123; BP diastolic 44–74; PULSE 64–86; RESP 14–18; TEMP 36.4–37.2; O2SAT 91–95
[2024-11-09] MEDS: MELATONIN 3 MG TABLET PO ×2 (00:59→22:15)
[2024-11-09 05:43] LABS: Absolute Lymphocyte Count 1.13 X10^3/uL (0.83-4.51); Absolute Neutrophil Count 2.3 X10^3/uL (2.0-7.7); Basophil# 0.02 X10^3/uL; Basophil% 0.5 % (0-1); Eosinophil# 0.08 X10^3/uL; Eosinophils% 2.1 % (0-5); Hematocrit 24.3 % (40-54); Hemoglobin 7.3 g/dL (13.0-16.5); Lymphocyte # 1.13 X10^3/ul (0.83-4.51); Lymphocyte % 30.1 % (19-41); Mean Corpuscular Hgb 28.3 pg (27.0-32.0); Mean Corpuscular Volume 94.2 fL (80-94); Mean Platelet Vol. 13.2 fl (6.2-12.0); Monocyte# 0.24 X10^3/uL; Monocyte% 6.4 % (0-10); NRBC Flagged by Analyzer 0.8 % (0-5); Neutrophil # 2.26 X10^3/uL (2.7-7.7); Neutrophil % 60.4 % (47-70); POSITIVE COUNT YES; Platelet Count 95 K/mm3 (150-450); RBC Distribution Width CV 16.1 % (11.6-14.6); RBC Distribution Width SD 55.3 fl (35.1-43.9); Red Blood Count 2.58 M/mm3 (4.6-6.2); White Blood Count 3.8 K/mm3 (4.4-11.0)
[2024-11-09 06:10] LABS: Differential Indicated SCAN CRITERIA MET
[2024-11-09 06:13] LABS: Anion Gap 9 (5-15); BUN 24 mg/dL (4-19); BUN/Creat Ratio 15.7 RATIO (10-20); Calcium,Total 8.3 mg/dL (7.6-11.0); Carbon Dioxide 23.9 mmol/L (21.0-32.0); Chloride 106 mmol/L (98-108); Creatinine, Serum 1.52 mg/dL (0.70-1.20); EST Glomerular Filtration Rate 44 (>60); Estimated Creatinine Clearance 37.07 ml/min (50-250); Glucose 102 mg/dL (70-99); Potassium 4.5 mmol/L (3.3-5.1); Sodium Level 139 mmol/L (133-145)
[2024-11-09] MEDS: Ondansetron 4 MG/2 ML Vial IV (06:33)
[2024-11-09] MEDS: 0.9% Saline Lock 10 ML Syringe IV ×2 (06:34→20:34)
[2024-11-09 07:04] LABS: Bedside Glucose 111 mg/dL (74-106)
[2024-11-09 07:06] LABS: Platelet Estimate MOD DEC (ADEQ)
--- NOTE | 2024-11-09 08:50 | CASEMGMT ---
Updates sent to [facility] with request to submit for precert. Tg Kirby DC Planning Asst.
[2024-11-09] MEDS: hydrOXYzine PAM 25 MG Capsule PO (10:33)
[2024-11-09] MEDS: Acetaminophen 325 MG Tablet 650 MG PO ×2 (10:33→16:40)
[2024-11-09] MEDS: Furosemide 40 MG/4 ML Vial IV (10:56)
[2024-11-09] MEDS: Tamsulosin HCl 0.4 MG Capsule PO (10:56)
[2024-11-09] MEDS: Ezetimibe 10 MG Tablet PO (10:56)
[2024-11-09] MEDS: Amiodarone 200 MG Tablet PO (10:56)
[2024-11-09] MEDS: Ascorbic Acid 500 MG Tablet PO (10:56)
[2024-11-09] MEDS: Gabapentin 400 MG Capsule PO ×2 (10:56→20:33)
[2024-11-09] MEDS: Pantoprazole Sodium 40 MG in 0.9% Normal Saline (100mL MB+) 100 ML 330 MG IV ×2 (10:57→20:33)
[2024-11-09 11:45] LABS: Bedside Glucose 132 mg/dL (74-106)
--- NOTE | 2024-11-09 11:52 | PN_ITS ---
Subjective Subjective Patient seen and examined. He had no active complaints. Review of systems is otherwise negative. He had EGD yesterday which showed 3 bleeding angiodysplastic lesions which were treated with a heater probe. Review of systems is otherwise negative. Hb today is 7.3. Objective Data Objective Data Vital Signs: Vital Signs Temp Pulse Resp BP Pulse Ox O2 Del Method 98.7 F 75 14 106/44 L 94 Room Air 11/09/24 07:20 11/09/24 11:02 11/09/24 07:20 11/09/24 11:02 11/09/24 08:13 11/09/24 08:35 Oxygen Delivery Method Room Air Weight: 187 lb 13.341 oz Body Mass Index (BMI) 28.5 Intake & Output: Intake and Output for Last 24 Hours 11/07/24 11/08/24 11/09/24 23:59 23:59 23:59 Intake Total 0 / 0 160 / 160 Output Total 800 / 800 850 / 850 Balance -800 / -800 -690 / -690 Lab / Micro Data 11/09/24 04:44 11/09/24 04:44 Labs: Laboratory Results - last 24 hr 11/08/24 11:35: POC Glucose 91 11/08/24 16:12: POC Glucose 81 11/08/24 22:34: POC Glucose 99 11/09/24 04:44: WBC 3.8 L, RBC 2.58 L, Hgb 7.3 L, Hct 24.3 L, MCV 94.2 H, MCH 28.3, MCHC 30.0 L, RDW Std Deviation 55.3 H, RDW Coeff of Jaqueline 16.1 H, Plt Count 95 L, MPV 13.2 H, Immature Gran % (Auto) 0.500, Neut % (Auto) 60.4, Lymph % (Auto) 30.1, [place] % (Auto) 6.4, Eos % (Auto) 2.1, Baso % (Auto) 0.5, Absolute Neuts (auto) 2.3, Absolute Lymphs (auto) 1.13, Nucleated RBC % 0.8, Platelet Estimate MOD DEC, Sodium 139, Potassium 4.5, Chloride 106, Carbon Dioxide 23.9, Anion Gap 9, BUN 24 H, Creatinine 1.52 H, Estim Creat Clear Calc 37.07 L, Est GFR (MDRD) Non-Af 44 L, BUN/Creatinine Ratio 15.7, Glucose 102 H, Calcium 8.3 11/09/24 06:33: POC Glucose 111 H 11/09/24 11:28: POC Glucose 132 H Micro: Microbiology 11/07/24 15:12 Stool Stool Occult Blood (JOVANY) - Final Occult Blood Positive Radiography Diagnostic Testing: Radiology Impression Echocardiogram 11/07/24 18:52 Interpretation Summary Normal LV size. Left ventricular systolic function is normal. Mild (1+) eccentric mitral valve insufficiency. Bileaflet diffuse mitral valve thickening. Moderate concentric left ventricular hypertrophy. The left ventricular ejection fraction is 65 %. Stage 3 diastolic dysfunction. Ordering Physician: Andrey Mitchell Referring Physician: Andrey Mitchell Performed By: Leonidas Davis RCS Physical Exam Const alert, oriented x3, no apparent distress and average body habitus General Appearance: cooperative, comfortable and well developed HEENT normocephalic, head/scalp atraumatic, hearing grossly normal bilaterally, nasal mucous membranes and turbinates normal, moist oral mucous membranes and oropharynx normal Eyes PERRL, EOMs intact bilaterally and conjunctivae normal Neck full ROM, no lymphadenopathy and supple Lymph Lymphatic: no lymphadenopathy noted and no lymphedema noted Chest inspection of chest normal Resp normal respiratory effort, normal air movement, no use of accessory muscles and clear to auscultation bilaterally Resp Narrative: mildly diminished breath sounds bibasally, no wheezes or crackles. On room air. Cardio regular rate, regular rhythm, S1 normal heart sound, S2 normal heart sound, no murmurs and peripheral pulses 2+ throughout GI normal to inspection, nondistended, normoactive bowel sounds, soft to palpation and non-tender Back/Spine normal ROM Extremity normal capillary refill, no clubbing, cyanosis or edema and no calf tenderness Extremity Narrative: +3-4 lower extremity pitting edema noted up to the knees. General Extremity: no tenderness to palpation of joints or extremities Skin no rashes or lesions noted General Skin Exam: no breakdown Neuro CN's II-XII intact bilaterally, moves all extremities, no focal motor deficits and no sensory deficits noted Speech: speech normal Motor Exam: strength 5/5 throughout and general weakness Psych mental status grossly normal, thought process normal, cooperative and affect normal Appearance: appropriate Assessment & Plan Assessment/Plan (1) Acute heart failure with preserved ejection fraction (HFpEF): (2) Acute on chronic anemia: PLAN: Plan #Acute on chronic anemia due to GI bleed * stool for occult blood is positive. * s/p transfusion of 2 units of PRBCs. * hb today is 7.3. Will transfuse with one unit of PRBC. * start IV pantoprazole. * EGD showed normal esophagus and three bleeding angiodysplastic lesions in the stomach which were treated with a heater probe and nodular mucosa in the first portion of the duodenum which was biopsies. * gastroenterology on board. * #Pancytopenia: * WBCs 3.8 with hemoglobin of 7.3 and platelets of 95. * Will monitor closely. * Etiology is unclear but it may be due to the acute GI bleed also. * #Acute HFpEF * has known EF of 65% from echo done in September 2023, with mild LV hypertrophy, stage II diastolic dysfunction and mild pulmonary hypertension. * had 3-4+ edema and CXR with cardiomegaly and central venous prominence. * 2D echo ordered * on IV lasix bid. Will switch to PO lasix 40mg daily/ * #PEG: * Cr was 1.6 on admission. Cr down to 1.52 toay. Will continue monitoring. * Baseline Cr is ~ 1.3. Will monitor. #Debility due to recent right total hip replacement * had total hip replacement done at [facility] on 10/07/2024. * PT/OT on board. * #Paroxysmal afib * on metoprolol and amiodarone. Eliquis on hold due to GI bleed * #Type 2 diabetes mellitus: metformin held. ISS. Accuchecks ACHS #CAD s/p CABG: on imdur and ezetimibe as well as statin. Plavix on hold. #Hypertension: on metoprolol. 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 #GERD: on PPI DVT prophylaxis: SCDs. Charges/Coding Visit Charges Inpatient E&M: 64815 Subs Hosp L2
[2024-11-09 16:48] LABS: Bedside Glucose 105 mg/dL (74-106)
[2024-11-09] MEDS: BENZOCAINE/MENTHOL 1 LOZENGE MUCOUS MEM (17:14)
[2024-11-09] MEDS: Atorvastatin Calcium 20 MG Tablet PO (20:34)
[2024-11-09 20:57] LABS: Bedside Glucose 103 mg/dL (74-106)
[2024-11-10 03:00] VITALS: BP 115/56; PULSE 79; RESP 16; TEMP 36.9; O2SAT 94
[2024-11-10] MEDS: BENZOCAINE/MENTHOL 1 LOZENGE MUCOUS MEM (03:32)
[2024-11-10 05:40] LABS: Absolute Lymphocyte Count 1.18 X10^3/uL (0.83-4.51); Basophil# 0.01 X10^3/uL; Basophil% 0.3 % (0-1); Eosinophil# 0.04 X10^3/uL; Eosinophils% 1.2 % (0-5); Hematocrit 26.1 % (40-54); Hemoglobin 8.2 g/dL (13.0-16.5); Lymphocyte # 1.18 X10^3/ul (0.83-4.51); Mean Corp Hgb Conc 31.4 g/dL (32-36); Mean Corpuscular Hgb 28.6 pg (27.0-32.0); Mean Corpuscular Volume 90.9 fL (80-94); Mean Platelet Vol. 12.8 fl (6.2-12.0); Monocyte% 5.8 % (0-10); NRBC Flagged by Analyzer 0 % (0-5); Neutrophil # 2.02 X10^3/uL (2.7-7.7); Neutrophil % 58.1 % (47-70); POSITIVE COUNT YES; Platelet Count 96 K/mm3 (150-450); RBC Distribution Width CV 16.8 % (11.6-14.6); RBC Distribution Width SD 55.6 fl (35.1-43.9); Red Blood Count 2.87 M/mm3 (4.6-6.2); White Blood Count 3.5 K/mm3 (4.4-11.0)
[2024-11-10] MEDS: guaiFENesin 10 ML UDC (200MG/10ML) PO (06:07)
[2024-11-10 06:34] LABS: Bedside Glucose 99 mg/dL (74-106)
[2024-11-10 06:37] LABS: Anion Gap 11 (5-15); BUN 23 mg/dL (4-19); BUN/Creat Ratio 16.7 RATIO (10-20); Calcium,Total 7.9 mg/dL (7.6-11.0); Carbon Dioxide 21.9 mmol/L (21.0-32.0); Chloride 103 mmol/L (98-108); Creatinine, Serum 1.37 mg/dL (0.70-1.20); EST Glomerular Filtration Rate 50 (>60); Estimated Creatinine Clearance 41.12 ml/min (50-250); Glucose 105 mg/dL (70-99); Potassium 3.8 mmol/L (3.3-5.1); Sodium Level 136 mmol/L (133-145)
[2024-11-10 09:00] VITALS: BP 104/46; PULSE 74; RESP 16; TEMP 37.2; O2SAT 94
--- NOTE | 2024-11-10 11:00 | CASEMGMT ---
[facility] has obtained auth to admit. Tg Kirby DC Planning Asst.
--- NOTE | 2024-11-10 11:06 | DS.PCM_ITS ---
Providers Date of Admission: 11/07/24 Date of Discharge: 11/10/24 Primary Care Physician: Valery Quinteros, SILVER DESIGNER Consultations 11/07/24 17:34 Consult: Gastroenterology Routine Consulting Provider: [facility] Reason for Consult: suspected GIB on Eliquis and plavix, unclear upper vs lower EMERGENT Consult: No MD Notified: Yes Date Notified: 11/07/24 Time Notified: 17:38 Method of Notification: Text Reason For Visit: SUSPECTED GIB WITH ACUTE ON CHRONIC ANEMIA Diagnosis Discharge Diagnosis (1) Acute heart failure with preserved ejection fraction (HFpEF): Status: Acute Code(s): I50.31 - Acute diastolic (congestive) heart failure (2) Acute on chronic anemia: Status: Chronic Code(s): D64.9 - Anemia, unspecified Medications at Discharge Home Medications isosorbide mononitrate 30 mg tablet,extended release 24 hr 15 mg PO DAILY HEART 08/23/19 gabapentin 400 mg capsule 400 mg PO BID NERVE PAIN 06/25/21 simvastatin 40 mg tablet 40 mg PO DAILY CHOLESTEROL 06/25/21 trazodone 50 mg tablet 50 mg PO QHS SLEEP 06/25/21 ezetimibe 10 mg tablet 10 mg PO DAILY 09/24/23 apixaban 5 mg tablet (Eliquis) 5 mg PO BID #60 tabs 09/26/23 metoprolol succinate 50 mg tablet,extended release 24 hr 50 mg PO DAILY #30 tabs 09/26/23 acetaminophen 500 mg capsule 1,000 mg PO Q8H PRN PRN fever or pain 11/07/24 acetaminophen 650 mg rectal suppository 650 mg CO Q4H PRN fever or pain 11/07/24 aluminum-magnesium hydroxide 200 mg-200 mg/5 mL oral suspension (MAG-AL) 30 ml PO Q4H PRN dyspepsia 11/07/24 amiodarone 200 mg tablet 200 mg PO DAILY 11/07/24 ascorbic acid (vitamin C) 500 mg capsule 500 mg PO BID SUPPLEMENT 11/07/24 bisacodyl 10 mg rectal suppository 10 mg CO DAILY PRN constipation 11/07/24 docusate sodium 100 mg capsule 100 mg PO DAILY 11/07/24 ferrous sulfate 325 mg (65 mg iron) tablet (FeroSul) 325 mg PO DAILY 11/07/24 guaifenesin 100 mg/5 mL oral liquid (Adult Tussin Chest Congestion) 200 mg PO Q4H PRN congestion 11/07/24 hydroxyzine HCl 25 mg tablet 25 mg PO TID PRN anxiety 11/07/24 magnesium hydroxide 400 mg/5 mL oral suspension (Milk of Magnesia) 30 ml PO DAILY PRN constipation 11/07/24 metformin 500 mg tablet,extended release 24 hr 500 mg PO DAILY 11/07/24 ondansetron 4 mg disintegrating tablet 4 mg PO Q6H PRN nausea and vomiting 11/07/24 polyethylene glycol 3350 17 gram/dose oral powder (ClearLax) 17 g PO DAILY 11/07/24 sodium phosphates 19 gram-7 gram/118 mL enema (Fleet Enema) 118 ml CO DAILY PRN constipation 11/07/24 tamsulosin 0.4 mg capsule 0.4 mg PO Q24H 11/07/24 furosemide 40 mg tablet 40 mg PO DAILY 30 days #0 tabs 11/10/24 pantoprazole 40 mg tablet,delayed release (Protonix) 40 mg PO BID 30 days #60 tabs 11/10/24 Hospital Course Operations None Procedures EGD, EKG, Transesophageal Echo and - (Chest x-ray) Summary of Care Provided Minutes Spent on Discharge: 35 Hospital Course: Patient is an 84-year-old male who presented to [facility] ED on 11/07/2024 with acute on chronic anemia due to GI bleed. Hospital course as noted below. Patient stable for discharge back to SNF on 11/10. 1. Acute on chronic anemia due to GI bleed ? GI followed. Hemoglobin 6.1 on admit. S/p EGD on 11/08 that showed 3 bleeding angiodysplastic lesions in the stomach that were treated with heater probe. Patient received 3 units of blood total and hemoglobin 8.2 on day of discharge. Treated with IV PPI twice daily here, will discharge on p.o. PPI twice daily. Recommend repeat CBC in 3 to 5 days to ensure hemoglobin remains stable. Okay to resume home Eliquis on discharge but will hold Plavix as patient has only remote history of CABG and stenting recently. 2. Acute HFpEF ? Last echo in 09/2023 showed EF 65%, mild eccentric LV hypertrophy, stage II diastolic dysfunction, mild pulmonary hypertension. Patient with +3-4 lower extremity edema on exam and chest x-ray with cardiomegaly with central vascular prominence and suspected trace pulmonary edema. Repeat echo on 11/07 showed EF 65% with stage III diastolic dysfunction, no other new findings. Treated with IV Lasix 40 mg twice daily here with good improvement. Discharged on Lasix 40 mg daily. 3. Mild PEG, resolved ? Creatinine 1.61 on admit, baseline appears to be around 1.3. Suspect due to cardiorenal syndrome in setting of acute HFpEF as noted above. Improved back to baseline with treatment of HFpEF as above. 4. Acute on chronic debility with recent right total hip replacement ? PT/OT/case management followed. Patient had recent total hip replacement done at [facility] on 10/07. He was living at home prior to that and was discharged to SNF at [facility]. Patient stable for discharge back to [facility] on 11/10. 5. Paroxysmal A-fib, history of CAD with CABG, hypertension, hyperlipidemia ? Was hospitalized here in September 2023 for A-fib with RVR. Cardiology followed and it appears she was discharged on Toprol. He now has amiodarone on her medication list, unclear on when this was started. Will continue both amiodarone and Toprol. Has history of CABG x 3, appears to be remote. Home Eliquis and Plavix held during hospitalization. Will resume Eliquis on discharge but continue to hold Plavix. Continue home nitrate and statin. 6. Mild pancytopenia ? WBC count 3.8, platelet count 95 and hemoglobin low as above during admission. Unclear etiology but suspect in part due to GI bleed. Continue to monitor in outpatient setting going forward. Chronic medical conditions: ? Type 2 diabetes mellitus with neuropathy: Treated with sliding-scale insulin with meals while inpatient. Okay to resume home metformin on discharge. Continue home gabapentin. ? BPH with obstructive symptoms: Continue home Flomax. ? GERD: Continue home PPI. Total clinical time spent by myself addressing the patient's medical issues, reviewing all the data, and collaborating with patient's care team: 35 minutes. Physical Exam Const alert, no apparent distress and average body habitus Constitutional Narrative: Elderly male, mildly fatigued and pale appearing, alert and oriented to person and place but not time, laying back comfortably in bed and answering questions with tangential responses, otherwise in no acute distress. General Appearance: cooperative and comfortable HEENT normocephalic, head/scalp atraumatic, hearing grossly normal bilaterally, nasal mucous membranes and turbinates normal and moist oral mucous membranes Eyes PERRL, EOMs intact bilaterally and conjunctivae normal Neck full ROM Chest inspection of chest normal Resp normal respiratory effort, normal air movement, no use of accessory muscles and clear to auscultation bilaterally Cardio regular rate, regular rhythm, no murmurs and peripheral pulses 2+ throughout GI normal to inspection, nondistended, normoactive bowel sounds, soft to palpation, non-tender and non-distended Back/Spine normal ROM Extremity Extremity Narrative: Trace lower extremity edema, much improved from admission. Skin no rashes or lesions noted Neuro moves all extremities and no focal motor deficits Speech: speech normal Psych mental status grossly normal Weight / BMI Weight Weight: 85.2 kg Body Mass Index (BMI) 28.5 ABG / Lab / Microbiology Data 11/10/24 04:31 11/10/24 04:31 Laboratory: Laboratory Results - last 24 hr 11/07/24 13:40: Crossmatch See Detail 11/09/24 11:28: POC Glucose 132 H 11/09/24 16:05: POC Glucose 105 11/09/24 20:30: POC Glucose 103 11/10/24 04:31: WBC 3.5 L, RBC 2.87 L, Hgb 8.2 L, Hct 26.1 L, MCV 90.9, MCH 28.6, MCHC 31.4 L, RDW Std Deviation 55.6 H, RDW Coeff of Jaqueline 16.8 H, Plt Count 96 L, MPV 12.8 H, Immature Gran % (Auto) 0.600, Neut % (Auto) 58.1, Lymph % (Auto) 34.0, [place] % (Auto) 5.8, Eos % (Auto) 1.2, Baso % (Auto) 0.3, Absolute Neuts (auto) 2.0, Absolute Lymphs (auto) 1.18, Nucleated RBC % 0, Sodium 136, Potassium 3.8, Chloride 103, Carbon Dioxide 21.9, Anion Gap 11, BUN 23 H, C reatinine 1.37 H, Estim Creat Clear Calc 41.12 L, Est GFR (MDRD) Non-Af 50 L, BUN/Creatinine Ratio 16.7, Glucose 105 H, Calcium 7.9 11/10/24 06:09: POC Glucose 99 Microbiology: Microbiology 11/07/24 15:12 Stool Stool Occult Blood (JOVANY) - Final Occult Blood Positive D/C Instructions DC O2, CPAP, BIPAP Needs Home O2 Discharge instructions: No Meaningful Use Info Meaningful Use Meaningful Use Diagnoses (Choose all that apply): None applicable Ischemic Stroke Statin Dosing Therapy Reference: STATIN DOSE THERAPY REFERENCE: * Patients > 75 years receive moderate or high dose statin therapy. * Patients 75 years or YOUNGER should receive HIGH intensity statin dose unless contraindicated. You will be required to document reason for non-treatment if statin daily dose does not meet guidelines. HIGH DOSE STATIN THERAPY DAILY Atorvastatin > than or = to 40 mg Rosuvastatin > than or = to 20 mg Amlodipine + Atorvastatin > than or = to 2.5/40 mg Ezetimibe + Simvastatin 10/80 mg Simvastatin 80mg Discharge Plan Admission Admit Date/Time: 11/07/24 16:06 Primary Reason for Your Visit: Worsening anemia with concern for GI bleed Attending Provider: Andrey Mitchell Primary Care Provider: Valery Quinteros Consulting Providers: Andrey Mitchell; Ju Fragoso Discharge Orders/Prescriptions Prescriptions: New furosemide 40 mg Tablet 40 mg PO DAILY 30 Days Qty: 0 0RF pantoprazole [Protonix] 40 mg tablet,delayed release (DR/EC) 40 mg PO BID 30 Days Qty: 60 0RF Continued isosorbide mononitrate 30 MG tablet extended release 24 hr 15 mg PO DAILY trazodone 50 mg tablet 50 mg PO QHS gabapentin 400 mg capsule 400 mg PO BID simvastatin 40 mg tablet 40 mg PO DAILY ezetimibe 10 mg tablet 10 mg PO DAILY metoprolol succinate 50 mg Tablet Extended Release 24 Hr 50 mg PO DAILY Qty: 30 0RF Eliquis 5 mg tablet 5 mg PO BID Qty: 60 0RF tamsulosin 0.4 mg capsule 0.4 mg PO Q24H metformin 500 mg tablet extended release 24 hr 500 mg PO DAILY acetaminophen 500 mg capsule 1,000 mg PO Q8H PRN PRN (Reason: fever or pain) acetaminophen 650 mg suppository 650 mg CO Q4H PRN (Reason: fever or pain) amiodarone 200 mg tablet 200 mg PO DAILY MAG-AL 200-200 mg/5 mL suspension 30 ml PO Q4H PRN (Reason: dyspepsia) ascorbic acid (vitamin C) 500 mg capsule 500 mg PO BID bisacodyl 10 mg suppository 10 mg CO DAILY PRN (Reason: constipation) docusate sodium 100 mg capsule 100 mg PO DAILY ferrous sulfate [FeroSul] 325 mg (65 mg iron) tablet 325 mg PO DAILY Fleet Enema 19-7 gram/118 mL enema 118 ml CO DAILY PRN (Reason: constipation) guaifenesin [Adult Tussin Chest Congestion] 100 mg/5 mL liquid 200 mg PO Q4H PRN (Reason: congestion) hydroxyzine HCl 25 mg tablet 25 mg PO TID PRN (Reason: anxiety) magnesium hydroxide [Milk of Magnesia] 400 mg/5 mL suspension 30 ml PO DAILY PRN (Reason: constipation) polyethylene glycol 3350 [ClearLax] 17 gram/dose powder 17 g PO DAILY ondansetron 4 mg tablet,disintegrating 4 mg PO Q6H PRN (Reason: nausea and vomiting) Discontinued clopidogrel 75 MG tablet 75 mg PO DAILY pantoprazole 20 mg tablet,delayed release (DR/EC) 20 mg PO BID amiodarone 400 mg tablet 400 mg PO DAILY Rx Instructions: UNTIL 11/12/24 furosemide 20 mg tablet 20 mg PO DAILY Glucagon Emergency Kit (human) 1 mg recon soln 1 mg IM Q20M PRN (Reason: hypoglycemia) Rx Instructions: until target blood sugar attained Referrals / Follow Up: Valery Quinteros SILVER DESIGNER [Primary Care Provider] - Disposition Disposition (needs filled in before D/C Order can be placed): [facility] Charges/Coding Visit Charges Inpatient E&M: 60763 Disch Hosp >30min
--- NOTE | 2024-11-10 11:06 | TREXTCAR_ITS ---
Diet Diet Order/Speech Therapy: 11/08/24 18:45 Diet: Regular - General Routine Orders/Code Status Routine Lab Work: CBC (Repeat in 3 to 5 days to ensure hemoglobin remains stable) Code Status: Full Code DC O2, CPAP, BIPAP needs Home O2 Discharge instructions: No Wound(s) R hip: Wound Type: Surgical Incision Therapies Weight Bearing: Full weight bearing Physical Therapy: Eval and Treat Occupational Therapy: Eval and Treat Problem/Diagnosis (1) Acute heart failure with preserved ejection fraction (HFpEF): Status: Acute Code(s): I50.31 - Acute diastolic (congestive) heart failure (2) Acute on chronic anemia: Status: Chronic Code(s): D64.9 - Anemia, unspecified Plan Patient is an 84-year-old male who presented to [facility] ED on 11/07/2024 with acute on chronic anemia due to GI bleed. Hospital course as noted below. Patient stable for discharge back to SNF on 11/10. 1. Acute on chronic anemia due to GI bleed ? GI followed. Hemoglobin 6.1 on admit. S/p EGD on 11/08 that showed 3 bleeding angiodysplastic lesions in the stomach that were treated with heater probe. Patient received 3 units of blood total and hemoglobin 8.2 on day of discharge. Treated with IV PPI twice daily here, will discharge on p.o. PPI twice daily. Recommend repeat CBC in 3 to 5 days to ensure hemoglobin remains stable. Okay to resume home Eliquis on discharge but will hold Plavix as patient has only remote history of CABG and stenting recently. 2. Acute HFpEF ? Last echo in 09/2023 showed EF 65%, mild eccentric LV hypertrophy, stage II diastolic dysfunction, mild pulmonary hypertension. Patient with +3-4 lower extremity edema on exam and chest x-ray with cardiomegaly with central vascular prominence and suspected trace pulmonary edema. Repeat echo on 11/07 showed EF 65% with stage III diastolic dysfunction, no other new findings. Treated with IV Lasix 40 mg twice daily here with good improvement. Discharged on Lasix 40 mg daily. 3. Mild PEG, resolved ? Creatinine 1.61 on admit, baseline appears to be around 1.3. Suspect due to cardiorenal syndrome in setting of acute HFpEF as noted above. Improved back to baseline with treatment of HFpEF as above. 4. Acute on chronic debility with recent right total hip replacement ? PT/OT/case management followed. Patient had recent total hip replacement done at [facility] on 10/07. He was living at home prior to that and was discharged to SNF at [facility]. Patient stable for discharge back to [facility] on 11/10. 5. Paroxysmal A-fib, history of CAD with CABG, hypertension, hyperlipidemia ? Was hospitalized here in September 2023 for A-fib with RVR. Cardiology followed and it appears she was discharged on Toprol. He now has amiodarone on her medication list, unclear on when this was started. Will continue both amiodarone and Toprol. Has history of CABG x 3, appears to be remote. Home Eliquis and Plavix held during hospitalization. Will resume Eliquis on discharge but continue to hold Plavix. Continue home nitrate and statin. 6. Mild pancytopenia ? WBC count 3.8, platelet count 95 and hemoglobin low as above during admission. Unclear etiology but suspect in part due to GI bleed. Continue to monitor in outpatient setting going forward. Chronic medical conditions: ? Type 2 diabetes mellitus with neuropathy: Treated with sliding-scale insulin with meals while inpatient. Okay to resume home metformin on discharge. Continue home gabapentin. ? BPH with obstructive symptoms: Continue home Flomax. ? GERD: Continue home PPI. Total clinical time spent by myself addressing the patient's medical issues, reviewing all the data, and collaborating with patient's care team: 35 minutes. Allergies/Procedures Done in Hospital Allergies Sulfa (Sulfonamide Antibiotics) Allergy (Verified 03/25/24 10:25) Unknown Procedures: EGD, EKG, Transthoracic Echo and - (Chest x-ray) Type of Care/Length of Stay Estimated LOS: Convalescent Care Less Than 30 days Type of Care Needed: Skilled Rehab Potential: Fair Prognosis: Fair Additional Orders/Day of Discharge H&P will serve as current which was dated: 11/07/24 Day of Discharge: 11/10/24 Dietary and Speech Recommendations Dietitian Recommendations/Changes: Recommend advance diet as tolerated to Cardiac/sodium-restricted with 1500mL/day FR. Will offer ONS as needed when PO adequacy established with meals. Carbohydrate-restricted diet as indicated; currently blood glucose WNL. Discharge Plan Admission Admit Date/Time: 11/07/24 16:06 Primary Reason for Your Visit: Worsening anemia with concern for GI bleed Attending Provider: Andrey Mitchell Primary Care Provider: Valery Quinteros Consulting Providers: Andrey Mitchell; Ju Fragoso Discharge Orders/Prescriptions Prescriptions: New furosemide 40 mg Tablet 40 mg PO DAILY 30 Days Qty: 0 0RF pantoprazole [Protonix] 40 mg tablet,delayed release (DR/EC) 40 mg PO BID 30 Days Qty: 60 0RF Continued isosorbide mononitrate 30 MG tablet extended release 24 hr 15 mg PO DAILY trazodone 50 mg tablet 50 mg PO QHS gabapentin 400 mg capsule 400 mg PO BID simvastatin 40 mg tablet 40 mg PO DAILY ezetimibe 10 mg tablet 10 mg PO DAILY metoprolol succinate 50 mg Tablet Extended Release 24 Hr 50 mg PO DAILY Qty: 30 0RF Eliquis 5 mg tablet 5 mg PO BID Qty: 60 0RF tamsulosin 0.4 mg capsule 0.4 mg PO Q24H metformin 500 mg tablet extended release 24 hr 500 mg PO DAILY acetaminophen 500 mg capsule 1,000 mg PO Q8H PRN PRN (Reason: fever or pain) acetaminophen 650 mg suppository 650 mg KY Q4H PRN (Reason: fever or pain) amiodarone 200 mg tablet 200 mg PO DAILY MAG-AL 200-200 mg/5 mL suspension 30 ml PO Q4H PRN (Reason: dyspepsia) ascorbic acid (vitamin C) 500 mg capsule 500 mg PO BID bisacodyl 10 mg suppository 10 mg KY DAILY PRN (Reason: constipation) docusate sodium 100 mg capsule 100 mg PO DAILY ferrous sulfate [FeroSul] 325 mg (65 mg iron) tablet 325 mg PO DAILY Fleet Enema 19-7 gram/118 mL enema 118 ml KY DAILY PRN (Reason: constipation) guaifenesin [Adult Tussin Chest Congestion] 100 mg/5 mL liquid 200 mg PO Q4H PRN (Reason: congestion) hydroxyzine HCl 25 mg tablet 25 mg PO TID PRN (Reason: anxiety) magnesium hydroxide [Milk of Magnesia] 400 mg/5 mL suspension 30 ml PO DAILY PRN (Reason: constipation) polyethylene glycol 3350 [ClearLax] 17 gram/dose powder 17 g PO DAILY ondansetron 4 mg tablet,disintegrating 4 mg PO Q6H PRN (Reason: nausea and vomiting) Discontinued clopidogrel 75 MG tablet 75 mg PO DAILY pantoprazole 20 mg tablet,delayed release (DR/EC) 20 mg PO BID amiodarone 400 mg tablet 400 mg PO DAILY Rx Instructions: UNTIL 11/12/24 furosemide 20 mg tablet 20 mg PO DAILY Glucagon Emergency Kit (human) 1 mg recon soln 1 mg IM Q20M PRN (Reason: hypoglycemia) Rx Instructions: until target blood sugar attained Referrals / Follow Up: Valery Quinteros, CLIENT APPLICATION SUPPORT SPECIALIST [Primary Care Provider] - Disposition Disposition (needs filled in before D/C Order can be placed): [facility]
[2024-11-10] MEDS: Tamsulosin HCl 0.4 MG Capsule PO (11:23)
[2024-11-10] MEDS: Amiodarone 200 MG Tablet PO (11:23)
[2024-11-10] MEDS: Isosorbide Mononitrate 30 MG Tablet 15 MG PO (11:23)
[2024-11-10 11:24] VITALS: PULSE 74
[2024-11-10] MEDS: Metoprolol(XL)Succ 50 MG Tablet PO (11:24)
[2024-11-10] MEDS: Ascorbic Acid 500 MG Tablet PO (11:25)
[2024-11-10] MEDS: Furosemide 40 MG Tablet PO (11:25)
[2024-11-10] MEDS: Ezetimibe 10 MG Tablet PO (11:25)
[2024-11-10] MEDS: Gabapentin 400 MG Capsule PO (11:28)
[2024-11-10 11:59] LABS: Bedside Glucose 106 mg/dL (74-106)
--- NOTE | 2024-11-10 12:06 | CASEMGMT ---
Discharge Planning Discharge orders, signed med list, and transport time sent to [facility]. Physicians will transport pt by wheelchair at 1p. Nursing, SW, and pt updated. VM's left for both pts son (Rich) and his daughter (Ruthann) with above information and request for copy of HC POA (pt states he has and [facility] doesn't have on file). Tg Kirby DC Planning Asst.
== END 2024-11-10 13:16 | disposition skilled nursing facility (03) | DRG 377 ==
LOC: ED 15:43 → PCU 17:02
PROVIDERS: Internal Medicine Gastroenterology; Student in an Organized Health Care Education/Training Program; Admitting Provider Hospitalist; Emergency Provider Emergency Medicine; PCP Clinical Nurse Specialist Adult Health; Referring Provider Hospitalist; Visit Provider Hospitalist
PROC: 0DJ08ZZ Inspection of Upper Intestinal Tract, Via Natural or Artificial Opening Endoscopic (ICD-10-PCS; CPT 43235; principal; 2024-11-08 18:15)
DX: K31.811 Angiodysplasia of stomach and duodenum with bleeding (principal); I50.31 Acute diastolic (congestive) heart failure; D61.818 Other pancytopenia; D62 Acute posthemorrhagic anemia; N13.8 Other obstructive and reflux uropathy; I13.0 Hypertensive heart and chronic kidney disease with heart failure and stage 1 through stage 4 chronic kidney disease, or unspecified chronic kidney disease; N17.9 Acute kidney failure, unspecified; I27.20 Pulmonary hypertension, unspecified; E11.40 Type 2 diabetes mellitus with diabetic neuropathy, unspecified; K74.60 Unspecified cirrhosis of liver; J44.9 Chronic obstructive pulmonary disease, unspecified; I48.0 Paroxysmal atrial fibrillation; E78.5 Hyperlipidemia, unspecified; K21.9 Gastro-esophageal reflux disease without esophagitis; I25.10 Atherosclerotic heart disease of native coronary artery without angina pectoris; I95.9 Hypotension, unspecified; N40.1 Benign prostatic hyperplasia with lower urinary tract symptoms; Z79.01 Long term (current) use of anticoagulants; Z79.02 Long term (current) use of antithrombotics/antiplatelets; R53.81 Other malaise; Z79.84 Long term (current) use of oral hypoglycemic drugs; Z79.899 Other long term (current) drug therapy; Z87.891 Personal history of nicotine dependence; Z95.1 Presence of aortocoronary bypass graft; Z95.5 Presence of coronary angioplasty implant and graft; Z96.641 Presence of right artificial hip joint
CPT/HCPCS: 36415; 71045; 80048; 82274; 82962; 83735; 83880; 85025; 85027; 86850; 86900; 86901; 88305; 93005; 93306; 94668; 97162; 97166; 97530; 97535; 99285; C1889; P9016; Q9957; A4216; J1940; J2405

== ENCOUNTER → 2024-11-07 | Outpatient (REF) | payer MEDICARE, SELFPAY ==
[2024-11-07 09:04] LABS: Hematocrit 20.8 % (40-54); Hemoglobin 6.1 g/dL (13.0-16.5); Mean Corp Hgb Conc 29.3 g/dL (32-36); Mean Corpuscular Hgb 28.1 pg (27.0-32.0); Mean Corpuscular Volume 95.9 fL (80-94); Mean Platelet Vol. 13.1 fl (6.2-12.0); POSITIVE COUNT YES; Platelet Count 91 K/mm3 (150-450); RBC Distribution Width CV 16.5 % (11.6-14.6); RBC Distribution Width SD 57.7 fl (35.1-43.9); Red Blood Count 2.17 M/mm3 (4.6-6.2); White Blood Count 3.6 K/mm3 (4.4-11.0)
[2024-11-07 09:05] LABS: Scan Indicated on CBC? Y/N YES- FLAGS NOTED
[2024-11-07 13:21] LABS: Anion Gap 9 (5-15); BUN 22 mg/dL (4-19); BUN/Creat Ratio 13.6 RATIO (10-20); Calcium,Total 8.2 mg/dL (7.6-11.0); Carbon Dioxide 23.8 mmol/L (21.0-32.0); Chloride 104 mmol/L (98-108); Creatinine, Serum 1.61 mg/dL (0.70-1.20); EST Glomerular Filtration Rate 41 (>60); Glucose 100 mg/dL (70-99); Magnesium 2.3 mg/dL (1.5-2.2); Potassium 4.3 mmol/L (3.3-5.1); Sodium Level 137 mmol/L (133-145)
== END ==
LOC: OLS.SW 04:00
PROVIDERS: PCP Clinical Nurse Specialist Adult Health; Referring Provider Internal Medicine; Visit Provider Internal Medicine
DX: I61.9 Nontraumatic intracerebral hemorrhage, unspecified (principal); I48.0 Paroxysmal atrial fibrillation; N17.9 Acute kidney failure, unspecified; J44.9 Chronic obstructive pulmonary disease, unspecified
CPT/HCPCS: 36415; 80048; 83735; 85027

== ENCOUNTER 2024-11-25 14:12 | Observation (INO) | payer MEDICARE, SELFPAY ==
[2024-11-25] VITALS (10 sets, daily range): BP systolic 89–120; BP diastolic 44–59; PULSE 55–72; RESP 14–18; TEMP 36.5–37.2; O2SAT 93–100; BMI 25.1; BMI 25.3
--- NOTE | 2024-11-25 14:35 | EKG12_ITS ---
Test Reason : Blood Pressure : */* mmHG Vent. Rate : 70 BPM Atrial Rate : 70 BPM P-R Int : 212 ms QRS Dur : 128 ms QT Int : 442 ms P-R-T Axes : -81 -88 10 degrees QTcB Int : 477 ms Unusual P axis, possible ectopic atrial rhythm Right bundle branch block Left anterior fascicular block Bifascicular block Abnormal ECG Confirmed by MARIAN MEZA, ARIELA ([id number]), legal editor ANAY ARANA ([id number]) on 11/28/2024 5:54:59 AM Referred By: Confirmed By: ARIELA FONSECA MD
[2024-11-25 14:53] LABS: Absolute Lymphocyte Count 2.11 X10^3/uL (0.83-4.51); Absolute Neutrophil Count 5.2 X10^3/uL (2.0-7.7); Basophil# 0.04 X10^3/uL; Basophil% 0.5 % (0-1); Eosinophil# 0.09 X10^3/uL; Eosinophils% 1.1 % (0-5); Hemoglobin 8.7 g/dL (13.0-16.5); Lymphocyte # 2.11 X10^3/ul (0.83-4.51); Lymphocyte % 26.1 % (19-41); Mean Corpuscular Hgb 26.9 pg (27.0-32.0); Mean Corpuscular Volume 89.8 fL (80-94); Mean Platelet Vol. 12.9 fl (6.2-12.0); Monocyte# 0.32 X10^3/uL; NRBC Flagged by Analyzer 0 % (0-5); Neutrophil # 5.23 X10^3/uL (2.7-7.7); Neutrophil % 64.7 % (47-70); Platelet Count 158 K/mm3 (150-450); RBC Distribution Width CV 14.5 % (11.6-14.6); RBC Distribution Width SD 47.2 fl (35.1-43.9); Red Blood Count 3.23 M/mm3 (4.6-6.2); White Blood Count 8.1 K/mm3 (4.4-11.0)
--- NOTE | 2024-11-25 15:02 | EDS_ITS ---
HPI History of Present Illness Chief Complaint: Chest Pain Informant: patient and SNF Narrative Narrative: Patient is an 84-year-old male with history of atrial fibrillation (on Eliquis) coronary artery disease presenting from [facility] after right hip repla cement for chest pain. Patient tells me that he thinks that is a muscle in his shoulder that is causing pain. He states he had rehab yesterday. Denies any injury or falls. He states last night he woke up with chest pain of the left upper chest that radiates down to his left arm. He was given 2 nitro and then fell back asleep. He currently denies any pain. He does not know how long the pain lasted but thinks it went away after he took the nitro. He had labs today at his nursing facility which showed a high-sensitivity troponin of 61 and was sent to the ER for further evaluation. He states the pain is worse when he moves his shoulder. No other complaints or concerns reported this time. Denies any new swelling of his legs, weakness or difficulty breathing. [facility] Medical History Kidney disease GERD (gastroesophageal reflux disease) Former tobacco use HLD (hyperlipidemia) CAD (coronary artery disease) History of chronic hypertension Right leg weakness Myocardial infarct Hypertension Vertigo Home Medications ?Medication ?Instructions ?Recorded ?Last Taken ?Type isosorbide mononitrate 30 mg 15 mg PO DAILY HEART 12/3 09/1106/25/21 History tablet,extended release 24 hr gabapentin 400 mg capsule 400 mg PO BID NERVE PAIN 10/1406/25/21 History ezetimibe 10 mg tablet 10 mg PO DAILY CHOLESTROL Unknown History apixaban 5 mg tablet (Eliquis) 5 mg PO BID CEREBRAL IN FARCTION 09/26/23 Unknown Rx #60 tabs metoprolol succinate 50 mg 50 mg PO DAILY ANGINA #30 t abs 09/26/23 Unknown Rx tablet,extended release 24 hr acetaminophen 500 mg capsule 1,000 mg PO Q8H PRN fever or pain 11/07/24 Unknown History acetaminophen 650 mg rectal 650 mg NJ Q4H PRN fever or pain 11/07/24 Unknown History suppository aluminum-magnesium hydroxide 200 30 ml PO Q4H PRN dysp epsia 11/07/24 Unknown History mg-200 mg/5 mL oral suspension (MAG-AL) amiodarone 200 mg tablet 200 mg PO DAILY AFIB 5 Unknown History ascorbic acid (vitamin C) 500 mg 500 mg PO BID SUPPLEM ENT 11/07/24 Unknown History capsule bisacodyl 10 mg rectal suppository 10 mg NJ DAILY PRN constipation 11/07/24 Unknown History docusate sodium 100 mg capsule 100 mg PO DAILY CONSTIP ATION 11/07/24 Unknown History ferrous sulfate 325 mg (65 mg 325 mg PO DAILY ANEMIA 0 11/07/24 Unknown History iron) tablet (FeroSul) magnesium hydroxide 400 mg/5 mL 30 ml PO DAILY PRN con stipation 11/07/24 Unknown History oral suspension (Milk of Magnesia) metformin 500 mg tablet,extended 500 mg PO DAILY DIABE CLARA 11/07/24 Unknown History release 24 hr ondansetron 4 mg disintegrating 4 mg PO Q6H PRN nausea and vomiting 11/07/24 Unknown History tablet polyethylene glycol 3350 17 17 g PO DAILY 11/07/24 Unk nown History gram/dose oral powder (ClearLax) sodium phosphates 19 gram-7 118 ml NJ DAILY PRN consti pation 11/07/24 Unknown History gram/118 mL enema (Fleet Enema) tamsulosin 0.4 mg capsule 0.4 mg PO QHS 11/07/24 Unkno wn History furosemide 40 mg tablet 40 mg PO DAILY EDEMA 30 days #0 11/10/24 Unknown Rx tabs pantoprazole 40 mg tablet,delayed 40 mg PO BID HEARTBU RN 30 days #60 11/10/24 Unknown Rx release (Protonix) tabs simvastatin 20 mg tablet 20 mg PO QHS 11/25/24 Unknow n History trazodone 150 mg tablet 75 mg PO QHS INSOMNIA Unknown History Allergy/AdvReac Type Severity Reaction Status Date / Time Sulfa (Sulfonamide Allergy Unknown Verified 11/25/24 14:13 Antibiotics) Family History Mother Heart disease Father Heart disease Surgical History Status post arthroscopic knee surgery S/P bilateral foot surgery S/p bilateral carpal tunnel release S/P tonsillectomy and adenoidectomy S/P bilateral cataract extraction S/P CABG x 3 Stented coronary artery H/O right heart catheterization Social History household members: spouse Smoking Status: Former smoker how long ago did patient quit smoking: Quit when he was 44 y/o, 1/2 ppd since 10 years old. alcohol intake: never substance use type: does not use ROS ROS ED Constitutional Constitutional ED: Denies chills or fever(s) Cardiovascular Cardiovascular: Reports as per HPI and chest pain Respiratory/Chest Respiratory/Chest: Reports cough Gastrointestinal Gastrointestinal: Denies abdominal pain, nausea or vomiting Musculoskeletal Musculoskeletal: Reports other Details: Recent right hip arthroplasty ; Denies arthralgias or myalgias Neurologic Neurologic: Denies paresthesias or weakness Psychiatric Psychiatric: Denies anxiety Hematologic/Lymphatic Hematologic/Lymphatic: Reports easy bleeding and other Details: On Eliquis EXAM Physical Exam Const Vital Signs: 11/25/24 14:13 11/25/24 14:35 11/25/24 15:12 Temperature 98.9 F Temperature Source Oral Pulse Rate 72 70 Respiratory Rate 18 17 Blood Pressure 120/54 L 91/53 L Blood Pressure Mean 76 65 Pulse Ox 98 97 100 Oxygen Delivery Method Room Air Room Air Room Air 11/25/24 16:00 11/25/24 16:16 11/25/24 17:00 Temperature Temperature Source Pulse Rate 66 55 L Respiratory Rate 14 17 Blood Pressure 89/44 L 108/56 L 114/55 L Blood Pressure Mean 59 73 74 Pulse Ox 99 93 Oxygen Delivery Method Room Air Room Air 11/25/24 17:12 Temperature 98.9 F Temperature Source Pulse Rate 55 L Respiratory Rate 17 Blood Pressure 114/55 L Blood Pressure Mean 74 Pulse Ox 93 Oxygen Delivery Method Positive well nourished and well developed General Appearance ED: well developed and NAD HEENT Reports moist mucous membranes Eyes PERRL Neck supple and no JVD Chest Wall inspection of chest normal and palpation of chest normal Resp normal respiratory effort and clear to auscultation bilaterally Resp Narrative: No crackles appreciated Auscultation: Negative for rhonchi or diminished lung sounds Cardio regular rate, regular rhythm and no murmurs GI normal to inspection, nondistended, normoactive bowel sounds and soft to palpation Neuro oriented x3 Sensorium / Orientation: awake and alert Motor Exam: Negative for general weakness Psych mental status grossly normal Skin no rashes or lesions noted Heart Score History: Moderately Suspicious ECG: Normal Age: >/= 65 years Risk Factors: >/= 3 Risk Factors or History of CAD Troponin: >1 - <3 Normal Limit Score: 6 MDM MDM MDM Narrative Medical decision making narrative: Patient is evaluated for an episode of chest pain that occurred less than the left side rating to his arm notedly by nitroglycerin. EKG not consistent with acute ischemia. Outpatient-see troponin minimally elevated at 61. Was sent in for further evaluation. He remains pain-free at this time. Vital signs normal. Cardiac workup including CBC, BMP, delta high-sensitivity troponin and chest x- ray ordered. High sensitive troponin still mildly elevated at 59 and 60 but not uptrending. He is pain-free at this time. His chest x-ray reviewed by myself as well as radiology was concerning for multifocal pneumonia. He does not have fever or leukocytosis and I do not think that this is an acute pneumonia however he does report a new cough over the past month. The case is discussed with the patient's doctor in his nursing facility, Dr. Hamilton, she states that patient was fluid overloaded and does not have pneumonia but was diuresed. She would like him admitted for further cardiac evaluation and cardiology consult before returning back to [facility]. Patient's's case is discussed with the main physician, Dr. Bedoya. Patient will be admitted for further ACS workup given episode of chest pain with mildly elevated troponins. At this time I do not think this is ACS and I do not think he requires a heparin drip at this time. He is anticoagulated on Eliquis. Patient agreeable with plan of care. Patient currently appears euvolemic I do not think requires diuresis but will add on a BNP. BNP elevated but mildly downtrending compared to last month History & Record Review Additional record(s) reviewed:: Other (Echocardiogram on 11/08/2024-bileaflet diffuse mitral valve thickening, mild concentric LVH and EF 65% with stage III diastolic dysfunction) Lab Data Attestation: I reviewed the patient's lab results. Labs: Laboratory Results - last 24 hr 11/25/24 11/25/24 14:15 14:19 WBC 8.1 RBC 3.23 L Hgb 8.7 L Hct 29.0 L MCV 89.8 MCH 26.9 L MCHC 30.0 L RDW Std Deviation 47.2 H RDW Coeff of Jaqueline 14.5 Plt Count 158 MPV 12.9 H Immature Gran % (Auto) 3.600 H Neut % (Auto) 64.7 Lymph % (Auto) 26.1 Campbell % (Auto) 4.0 Eos % (Auto) 1.1 Baso % (Auto) 0.5 Absolute Neuts (auto) 5.2 Absolute Lymphs (auto) 2.11 Nucleated RBC % 0 Sodium 137 Potassium 5.4 H Chloride 102 Carbon Dioxide 25.1 Anion Gap 10 BUN 20 H Creatinine 1.34 H Estim Creat Clear Calc 38.28 L Est GFR (MDRD) Non-Af 52 L BUN/Creatinine Ratio 14.9 Glucose 112 H Calcium 9.2 Troponin T High Sens 59 H* Troponin T Hi Sens 2 Hr 60 H* Radiography Chest X-Ray - ED: 2 View, Read by ED Physician, Read by Radiologist and CHF Diagnostic Testing: Clinical Impression(s) from Imaging Studies Chest X-Ray 11/25/24 15:20 IMPRESSION: Findings concerning for multifocal pneumonia. Reading Location: [facility] Rhythm Strip Rhythm Strip: Sinus Rhythm Rate: 70 Ectopy: None EKG Initial EKG: Attestation: I personally reviewed and interpreted this EKG as follows: Interpretation: Sinus Rhythm Comments: Normal sinus rhythm at a rate of 70 bpm with prolonged NJ interval Normal axis Bifascicular block with right bundle branch block left anterior fascicular block Normal ST segments No significant change compared to prior EKG on 11/08/2024 Differential Diagnosis Chest pain/SOB: pulmonary embolism Reason(s) PE less likely: Positive for not tachycardic, not hypoxic and patient taking oral anticoagulants, pneumothorax Reason(s) pneumothorax less likely: Positive for bilateral breath sounds and [employer] withhout PTX and pneumonia Reason(s) pneumonia less likely: Positive for no elevation in WBC count, no noted fever and symptoms not consistent with acute infection Management Discussion w/another healthcare provider: Hospitalist and PCP Discharge Plan Dx/Rx/DC Orders Clinical Impression: Chest pain, CAD (coronary artery disease), Elevated troponin Disposition Disposition: Acute Care Hospital [facility] Discharge Date/Time: 11/25/24 17:55
[2024-11-25 15:12] LABS: Anion Gap 10 (5-15); BUN 20 mg/dL (4-19); BUN/Creat Ratio 14.9 RATIO (10-20); Calcium,Total 9.2 mg/dL (7.6-11.0); Carbon Dioxide 25.1 mmol/L (21.0-32.0); Chloride 102 mmol/L (98-108); Creatinine, Serum 1.34 mg/dL (0.70-1.20); EST Glomerular Filtration Rate 52 (>60); Estimated Creatinine Clearance 38.28 ml/min (50-250); Glucose 112 mg/dL (70-99); Potassium 5.4 mmol/L (3.3-5.1); Sodium Level 137 mmol/L (133-145)
--- NOTE | 2024-11-25 15:20 | RAD_ITS ---
PROCEDURE: CHEST PA AND LATERAL 11/25/2024 REASON FOR EXAM: CHEST PAIN TECHNIQUE: Frontal and lateral views of the chest. COMPARISON: 11/07/2024 FINDINGS: Hardware: Status post median sternotomy Heart: Heart size is mildly enlarged. Mediastinum: The mediastinal contour is stable. Lungs: Consolidative opacities bilateral upper lobes, more prominent on the right. No pneumothorax. No pleural effusion. [id number]-left basilar atelectasis. Bones: Degenerative changes are identified within the thoracic spine. RAD/Chest PA and Lateral IMPRESSION: Findings concerning for multifocal pneumonia. Reading Location: [facility]
[2024-11-25 15:26] LABS: Troponin T High Sensitivity 59 ng/L (<=22)
--- NOTE | 2024-11-25 16:57 | ED.RN ---
Patient assisted in using phone to call son in law
[2024-11-25 17:04] LABS: Troponin T High Sens 2 HR 60 ng/L (<=22)
--- NOTE | 2024-11-25 17:18 | ED.RN ---
Patient given sandwich and water to drink.
[2024-11-25 18:05] LABS: Pro- Brain NATRIURETIC PEPTIDE 4740 pg/mL (<=1800)
--- NOTE | 2024-11-25 18:11 | HP.PCM.HOS_ITS ---
HPI - General General Date of Admission: 11/25/24 Date of Service: 11/25/24 Chief Complaint: chest pain HPI Narrative ANGIE DUTTON, is a 84 M with a PMH as outlined including history of recent right hip replacement. He was admitted to the ED on 11/25/2024 with complaint of left- sided chest pain. He said the chest pain was not pressure-like and described as just there. He said it radiated to his left arm. He said he realized that the pain was likely due to him hurting his arm during therapy the day before. He denied any lightheadedness or dizziness, palpitations, nausea or vomiting or any other symptoms. Review of systems otherwise negative. He was brought into the ED where chest pain was reproducible with palpation. However residential wanted him worked up for chest pain to rule out ACS. Vitals in the ED at time of review BP of 114/55, TX of 55, RR of 17 and temp of 98.9F> He was saturating at 93% on room air. CBC was unremarkable apart from hemoglobin of 8.7. WBC was 8.1 and platelets were 158. BMP showed sodium of 137 potassium of 5.4 and bicarb of 25.1. Creatinine was 1.34. proBNP was markedly elevated at 4740. Initial troponin was 59 and essentially stayed flat with repeat troponin being 60. He has been admitted to manage for chest pain rule out ACS as well as hyperkalemia. [facility] Medical History Kidney disease GERD (gastroesophageal reflux disease) Former tobacco use HLD (hyperlipidemia) CAD (coronary artery disease) History of chronic hypertension Right leg weakness Myocardial infarct Hypertension Vertigo Home Medications ?Medication ?Instructions ?Recorded ?Last Taken ?Type isosorbide mononitrate 30 mg 15 mg PO DAILY HEART 12/09/1106/25/21 History tablet,extended release 24 hr gabapentin 400 mg capsule 400 mg PO BID NERVE PAIN 10/1406/25/21 History ezetimibe 10 mg tablet 10 mg PO DAILY CHOLESTROL Unknown History apixaban 5 mg tablet (Eliquis) 5 mg PO BID CEREBRAL IN FARCTION 09/26/23 Unknown Rx #60 tabs metoprolol succinate 50 mg 50 mg PO DAILY ANGINA #30 t abs 02/03/24 Unknown Rx tablet,extended release 24 hr acetaminophen 500 mg capsule 1,000 mg PO Q8H PRN fever or pain 11/07/24 Unknown History acetaminophen 650 mg rectal 650 mg TX Q4H PRN fever or pain 11/07/24 Unknown History suppository aluminum-magnesium hydroxide 200 30 ml PO Q4H PRN dysp epsia 11/07/24 Unknown History mg-200 mg/5 mL oral suspension (MAG-AL) amiodarone 200 mg tablet 200 mg PO DAILY AFIB 5 Unknown History ascorbic acid (vitamin C) 500 mg 500 mg PO BID SUPPLEM ENT 11/07/24 Unknown History capsule bisacodyl 10 mg rectal suppository 10 mg TX DAILY PRN constipation 11/07/24 Unknown History docusate sodium 100 mg capsule 100 mg PO DAILY CONSTIP ATION 11/07/24 Unknown History ferrous sulfate 325 mg (65 mg 325 mg PO DAILY ANEMIA 0 11/07/24 Unknown History iron) tablet (FeroSul) magnesium hydroxide 400 mg/5 mL 30 ml PO DAILY PRN con stipation 11/07/24 Unknown History oral suspension (Milk of Magnesia) metformin 500 mg tablet,extended 500 mg PO DAILY DIABE CLARA 11/07/24 Unknown History release 24 hr ondansetron 4 mg disintegrating 4 mg PO Q6H PRN nausea and vomiting 11/07/24 Unknown History tablet polyethylene glycol 3350 17 17 g PO DAILY 11/07/24 Unk nown History gram/dose oral powder (ClearLax) sodium phosphates 19 gram-7 118 ml TX DAILY PRN consti pation 11/07/24 Unknown History gram/118 mL enema (Fleet Enema) tamsulosin 0.4 mg capsule 0.4 mg PO QHS 11/07/24 Unkno wn History furosemide 40 mg tablet 40 mg PO DAILY EDEMA 30 days #0 11/10/24 Unknown Rx tabs pantoprazole 40 mg tablet,delayed 40 mg PO BID HEARTBU RN 30 days #60 11/10/24 Unknown Rx release (Protonix) tabs simvastatin 20 mg tablet 20 mg PO QHS 11/25/24 Unknow n History trazodone 150 mg tablet 75 mg PO QHS INSOMNIA Unknown History Allergy/AdvReac Type Severity Reaction Status Date / Time Sulfa (Sulfonamide Allergy Unknown Verified 11/25/24 14:13 Antibiotics) Family History Mother Heart disease Father Heart disease Surgical History Status post arthroscopic knee surgery S/P bilateral foot surgery S/p bilateral carpal tunnel release S/P tonsillectomy and adenoidectomy S/P bilateral cataract extraction S/P CABG x 3 Stented coronary artery H/O right heart catheterization Social History household members: spouse Smoking Status: Former smoker how long ago did patient quit smoking: Quit when he was 44 y/o, 1/2 ppd since 10 years old. alcohol intake: never substance use type: does not use ROS Constitutional Constitutional: Reports malaise and weakness; Denies anorexia, change in weight, chills, fatigue or fever(s) Eyes Eyes: Denies change in vision ENT HEENT: Denies dysphagia, headache(s) or sore throat Cardiovascular Cardiovascular: Reports chest pain; Denies dyspnea on exertion, edema, lightheadedness, orthopnea, palpitations or syncope Respiratory/Chest Respiratory/Chest: Denies cough, dyspnea, productive cough, shortness of breath at rest or shortness of breath with exertion Gastrointestinal Gastrointestinal: Denies abdominal pain, nausea or vomiting Genitourinary Genitourinary: Denies burning urination or dysuria Musculoskeletal Musculoskeletal: Denies arthralgias Neurologic Neurologic: Denies dizziness, focal weakness, headache(s), numbness or seizures Psychiatric Psychiatric: Denies anxiety Vital Signs Vital Signs Vital Signs: 11/25/24 14:13 11/25/24 14:35 11/25/24 15:12 Temperature 98.9 F Temperature Source Oral Pulse Rate 72 70 Respiratory Rate 18 17 Blood Pressure 120/54 L 91/53 L Blood Pressure Mean 76 65 Pulse Ox 98 97 100 Oxygen Delivery Method Room Air Room Air Room Air 11/25/24 16:00 11/25/24 16:16 11/25/24 17:00 Temperature Temperature Source Pulse Rate 66 55 L Respiratory Rate 14 17 Blood Pressure 89/44 L 108/56 L 114/55 L Blood Pressure Mean 59 73 74 Pulse Ox 99 93 Oxygen Delivery Method Room Air Room Air 11/25/24 17:12 Temperature 98.9 F Temperature Source Pulse Rate 55 L Respiratory Rate 17 Blood Pressure 114/55 L Blood Pressure Mean 74 Pulse Ox 93 Oxygen Delivery Method Weight Weight: 165 lb 5.547 oz Body Mass Index (BMI) 25.1 Physical Exam Const alert, oriented x3, no apparent distress and average body habitus General Appearance: cooperative HEENT normocephalic, head/scalp atraumatic, hearing grossly normal bilaterally and moist oral mucous membranes Mouth: oral and palatal mucosa normal Eyes PERRL, EOMs intact bilaterally and conjunctivae normal Neck no lymphadenopathy and supple Resp normal respiratory effort and no retractions Cardio regular rate, regular rhythm, S1 normal heart sound, S2 normal heart sound and no murmurs Cardio Narrative: chest pain reproducible with palpation. GI normal to inspection, nondistended, normoactive bowel sounds, soft to palpation, non-tender and non-distended Extremity normal to inspection, full ROM and no clubbing, cyanosis or edema Neuro oriented x3, CN's II-XII intact bilaterally, moves all extremities and no focal motor deficits Motor Exam: strength 5/5 throughout Psych affect normal Results Lab / Micro Data 11/25/24 14:15 11/25/24 14:15 Labs: Laboratory Results - last 24 hr 11/25/24 14:15: WBC 8.1, RBC 3.23 L, Hgb 8.7 L, Hct 29.0 L, MCV 89.8, MCH 26.9 L , MCHC 30.0 L, RDW Std Deviation 47.2 H, RDW Coeff of Jaqueline 14.5, Plt Count 158, M PV 12.9 H, Immature Gran % (Auto) 3.600 H, Neut % (Auto) 64.7, Lymph % (Auto) 26.1, [place] % (Auto) 4.0, Eos % (Auto) 1.1, Baso % (Auto) 0.5, Absolute Neuts (auto) 5.2, Absolute Lymphs (auto) 2.11, Nucleated RBC % 0, Sodium 137, P otassium 5.4 H, Chloride 102, Carbon Dioxide 25.1, Anion Gap 10, BUN 20 H, C reatinine 1.34 H, Estim Creat Clear Calc 38.28 L, Est GFR (MDRD) Non-Af 52 L, BUN/Creatinine Ratio 14.9, Glucose 112 H, Calcium 9.2, Troponin T High Sens 59 H* 11/25/24 14:19: Troponin T Hi Sens 2 Hr 60 H*, NT pro BNP II 4740 H Imaging Radiology Impression Chest X-Ray 11/25/24 15:20 IMPRESSION: Findings concerning for multifocal pneumonia. [facility] Assessment & Plan Assessment/Plan (1) Chest pain: (2) Elevated troponin: PLAN: Plan #Chest pain to rule out ACS * To PCU. * Patient developed chest pain yesterday. He states he now remembers that he was doing therapy at that he had tests left shoulder that he thinks is because on the left side of chest pain. The pain radiates down his left arm and is reproducible with palpation. * Initial high-sensitivity troponin was 59 and is now 60 on repeat. * EKG showed no acute ST changes. * For nuclear stress test tomorrow. P.o. aspirin and sublingual nitroglycerin. * #Acute on chronic heart failure * BNP is elevated at 4740. Denies any shortness of breath and is on room air. Will diurese with IV Lasix 40 mg twice daily. * Monitor intake and output. Fluid restriction 1500 cc daily. #Hyperkalemia: Potassium is 5.4. Will hold all potassium sparing medication. Give Kayexalate 30 g x 1 #History of CAD: On ezetimibe and Imdur as well as atorvastatin #Atrial fibrillation: Currently rate controlled. On amiodarone and Eliquis #GERD: On PPI #Hypertension: On metoprolol #Type 2 diabetes mellitus: Hold metformin. Insulin sliding scale. Check CCHS. DVT prophylaxis: Already on Eliquis CODE STATUS: Full code * Patient counseled extensively about different types of CODE STATUS including full code, DNR CCA and DNR CCA. Patient elects to be full code. * Total [id number] time 16 minutes. Charges/Coding Visit Charges Inpatient E&M: 51400 Init Hosp L2 Procedures Hospitalists Procedures: 58401 Advncd Care Plan 30 Min
[2024-11-25] MEDS: Furosemide 40 MG/4 ML Vial IV (19:55)
[2024-11-25] MEDS: Sodium Polystyrene Sulfonate 15 GM/60 ML UDC 30 GM PO (19:55)
[2024-11-25] MEDS: 0.9% Saline Lock 10 ML Syringe IV (19:56)
[2024-11-25 20:29] LABS: Troponin T High Sens 4 HR 60 ng/L (<=22)
[2024-11-25 21:11] LABS: Troponin T High Sens 4 HR 59 ng/L (<=22)
[2024-11-25] MEDS: APIXABAN 5 MG TABLET PO (23:20)
[2024-11-25] MEDS: Pantoprazole Sodium 40 MG Tablet PO (23:21)
[2024-11-25] MEDS: Tamsulosin HCl 0.4 MG Capsule PO (23:21)
[2024-11-25] MEDS: traZODone 50 MG Tablet 75 MG PO (23:21)
[2024-11-25] MEDS: Atorvastatin Calcium 10 MG Tablet PO (23:21)
[2024-11-25] MEDS: Ascorbic Acid 500 MG Tablet PO (23:21)
[2024-11-25] MEDS: Gabapentin 400 MG Capsule PO (23:21)
[2024-11-25 23:41] LABS: Bedside Glucose 116 mg/dL (74-106)
[2024-11-26 05:15] VITALS: BP 102/52; PULSE 68; RESP 16; TEMP 36.3; O2SAT 95
[2024-11-26 05:18] LABS: Absolute Lymphocyte Count 1.84 X10^3/uL (0.83-4.51); Absolute Neutrophil Count 3.9 X10^3/uL (2.0-7.7); Basophil# 0.04 X10^3/uL; Basophil% 0.6 % (0-1); Eosinophil# 0.11 X10^3/uL; Eosinophils% 1.7 % (0-5); Hematocrit 26.8 % (40-54); Hemoglobin 8.1 g/dL (13.0-16.5); Lymphocyte # 1.84 X10^3/ul (0.83-4.51); Lymphocyte % 28.8 % (19-41); Mean Corp Hgb Conc 30.2 g/dL (32-36); Mean Corpuscular Hgb 26.7 pg (27.0-32.0); Mean Corpuscular Volume 88.4 fL (80-94); Monocyte# 0.29 X10^3/uL; Monocyte% 4.5 % (0-10); NRBC Flagged by Analyzer 0 % (0-5); Neutrophil # 3.94 X10^3/uL (2.7-7.7); Neutrophil % 61.9 % (47-70); Platelet Count 125 K/mm3 (150-450); RBC Distribution Width CV 14.5 % (11.6-14.6); RBC Distribution Width SD 46.5 fl (35.1-43.9); Red Blood Count 3.03 M/mm3 (4.6-6.2); White Blood Count 6.4 K/mm3 (4.4-11.0)
[2024-11-26 05:49] LABS: Anion Gap 12 (5-15); BUN 21 mg/dL (4-19); BUN/Creat Ratio 14.1 RATIO (10-20); Calcium,Total 8.8 mg/dL (7.6-11.0); Carbon Dioxide 26.5 mmol/L (21.0-32.0); Chloride 102 mmol/L (98-108); Creatinine, Serum 1.47 mg/dL (0.70-1.20); EST Glomerular Filtration Rate 46 (>60); Estimated Creatinine Clearance 33.72 ml/min (50-250); Glucose 91 mg/dL (70-99); Sodium Level 140 mmol/L (133-145)
--- NOTE | 2024-11-26 05:55 | EKG12_ITS ---
Test Reason : STRESS TEST Blood Pressure : */* mmHG Vent. Rate : 67 BPM Atrial Rate : 67 BPM P-R Int : 238 ms QRS Dur : 134 ms QT Int : 476 ms P-R-T Axes : 17 -88 10 degrees QTcB Int : 502 ms Sinus rhythm with 1st degree A-V block Right bundle branch block Left anterior fascicular block Bifascicular block Abnormal ECG When compared with ECG of 25-Nov-2024 14:39, MANUAL COMPARISON REQUIRED DATA IS UNCONFIRMED Confirmed by PAULINO MEZA, EDILIA ([id number]), scientific publications editor ESTEPHANIA MCKENZIE ([id number]) on 11/28/2024 9:18:00 AM Referred By: Confirmed By: EDILIA BOB MD
[2024-11-26 06:54] LABS: Bedside Glucose 92 mg/dL (74-106)
--- NOTE | 2024-11-26 07:47 | PN.HOSP_ITS ---
Reason for Visit Reason for Visit: Diagnoses Chest pain, unspecified (11/25/24) Other specified abnormal findings of blood chemistry (11/25/24) Subjective Subjective Patient is an 84-year-old gentleman who is currently undergoing rehabilitation at a [place] [facility] [place] who presented with left-sided chest pain. Per patient he felt his pain was related to exercises he had participated. He has significant past medical history including coronary artery disease with previous CABG. Admitted to a monitored bed for further management Objective Data Objective Data Vital Signs: Vital Signs Temp Pulse Resp BP Pulse Ox O2 Del Method 97.3 F L 68 16 102/52 L 95 Room Air 11/26/24 05:15 11/26/24 05:15 11/26/24 05:15 11/26/24 05:15 11/26/24 05:15 11/26/24 05:22 Oxygen Delivery Method Room Air Weight: 73.5 kg Body Mass Index (BMI) 25.3 Intake & Output: Intake and Output for Last 24 Hours 11/24/24 11/25/24 11/26/24 23:59 23:59 23:59 Intake Total 220 / 220 0 / 0 Output Total 800 / 800 650 / 650 Balance -580 / -580 -650 / -650 Lab / Micro Data 11/26/24 04:40 11/26/24 04:40 Labs: Laboratory Results - last 24 hr 11/25/24 14:15: WBC 8.1, RBC 3.23 L, Hgb 8.7 L, Hct 29.0 L, MCV 89.8, MCH 26.9 L , MCHC 30.0 L, RDW Std Deviation 47.2 H, RDW Coeff of Jaqueline 14.5, Plt Count 158, M PV 12.9 H, Immature Gran % (Auto) 3.600 H, Neut % (Auto) 64.7, Lymph % (Auto) 26.1, Heard % (Auto) 4.0, Eos % (Auto) 1.1, Baso % (Auto) 0.5, Absolute Neuts (auto) 5.2, Absolute Lymphs (auto) 2.11, Nucleated RBC % 0, Sodium 137, P otassium 5.4 H, Chloride 102, Carbon Dioxide 25.1, Anion Gap 10, BUN 20 H, C reatinine 1.34 H, Estim Creat Clear Calc 38.28 L, Est GFR (MDRD) Non-Af 52 L, BUN/Creatinine Ratio 14.9, Glucose 112 H, Calcium 9.2, Troponin T High Sens 59 H* 11/25/24 14:19: Troponin T Hi Sens 2 Hr 60 H*, NT pro BNP II 4740 H 11/25/24 18:44: Troponin T Hi Sens 4Hr 60 H* 11/25/24 20:37: Troponin T Hi Sens 4Hr 59 H* 11/25/24 23:16: POC Glucose 116 H 11/26/24 04:40: WBC 6.4, RBC 3.03 L, Hgb 8.1 L, Hct 26.8 L, MCV 88.4, MCH 26.7 L , MCHC 30.2 L, RDW Std Deviation 46.5 H, RDW Coeff of Jaqueline 14.5, Plt Count 125 L, MPV 13.0 H, Immature Gran % (Auto) 2.500 H, Neut % (Auto) 61.9, Lymph % (Auto) 28.8, Heard % (Auto) 4.5, Eos % (Auto) 1.7, Baso % (Auto) 0.6, Absolute Neuts (auto) 3.9, Absolute Lymphs (auto) 1.84, Nucleated RBC % 0, Sodium 140, Potassium 4.0, Chloride 102, Carbon Dioxide 26.5, Anion Gap 12, BUN 21 H, C reatinine 1.47 H, Estim Creat Clear Calc 33.72 L, Est GFR (MDRD) Non-Af 46 L, BUN/Creatinine Ratio 14.1, Glucose 91, Calcium 8.8 11/26/24 06:36: POC Glucose 92 Radiography Diagnostic Testing: Radiology Impression Chest X-Ray 11/25/24 15:20 IMPRESSION: Findings concerning for multifocal pneumonia. Reading Location: [facility] Rhythm Strip Rhythm Strip: Sinus Rhythm Rate: 70 Ectopy: None Physical Exam Narrative GENERAL: cooperative HEENT: Atraumatic; normocephalic EYES; Anicteric, Normal Conjunctiva NECK; supple, normal thyroid, RESPIRATORY: Diminished to auscultation CARDIOVASCULAR: Regular S1-S2 GI: soft, normoactive bowel sounds, : No Renal angle tenderness; EXTREMITIES: No edema, no clubbing, MUSCULOSKELETAL: no muscle wasting NEURO: Awake; no lateralizing signs. SKIN: No Rash PSYCH; Flat affect Assessment & Plan Assessment/Plan (1) Chest pain: (2) Elevated troponin: PLAN: Plan Patient is an 84-year-old gentleman who is currently undergoing rehabilitation [place] [facility] [place] who presented with left-sided chest pain. Per patient he felt his pain was related to exercises he had participated. He has significant past medical history including coronary artery disease with previous CABG. Admitted to a monitored bed for further management 1. Chest pain ? Patient has significant past cardiac history including coronary artery disease with previous CABG. Admitted to monitored bed. Patient initially high- sensitivity troponin was slightly elevated. However did remain flat. Underwent subsequent evaluation with a nuclear stress test results of which are still pending 2. Acute on chronic congestive heart failure with preserved ejection fraction ? Echo from 11/07/2024 demonstrated EF of 65% with stage III diastolic dysfunction. Patient placed on diuretic therapy, fluid restriction, strict input and output, daily weights and low-sodium diet 3. Coronary artery disease ? With previous CABG; Patient is on guideline directed medical therapy 4. Paroxysmal atrial fibrillation ? Rate controlled on amiodarone on systemic anticoagulation with apixaban continue 5. Hypertension ? Blood pressure controlled, home medications continued with dose adjustment as needed 6. Diabetes mellitus type II -patient's oral hypoglycemics held. Placed on long acting insulin, Accu-Cheks a.c. and at bedtime and covered with sliding scale insulin 7.Dyslipidemia ?Patient is on statin therapy, continued at home dose 8. GERD ? On PPI 9. BPH with lower urinary obstructive symptoms - Patient treated with tamsulosin 10. DVT prophylaxis ? On apixaban Time spent in the patient's overall evaluation,decision-making process, review of diagnostic data, adjustment of management, discussion with other providers, nursing nursing and ancillary staff involved in patient's care documentation, 38Minutes Charges/Coding Visit Charges Inpatient E&M: 03665 Subs Hosp L2
[2024-11-26 08:03] VITALS: BP 109/52; PULSE 67; RESP 14; TEMP 36.5; O2SAT 97
--- NOTE | 2024-11-26 08:46 | CASEMGMT ---
Addendum entered by Selene Perez 11/26/24 12:37: It is unlikely patient will be discharged within 24 hours of him leaving [facility]. Therefore, patient will need a pre-cert to return to [facility]. ANA did send PT/OT Evals to [facility]. Selene Perez [employer] Addendum entered by Selene Perez 11/26/24 12:15: Per Gaviota at [facility] as long as patient returns to [facility] within 24 hours of leaving their facility he does not need a new pre-cert. If it is after 24 hours patient will need a new pre-cert. SW asked what time patient left [facility]. Await response. Selene Perez [employer] Addendum entered by Selene Perez 11/26/24 11:53: [facility] said patient can return whenever he is ready. She did say she was going to check with insurance, but SW has not heard back yet for sure. Selene GONZALEZ Original Note: Patient is from [facility] and he confirms his plan is to return. ANA sent updates to [facility] and asked if patient returns within 24 hours of leaving their building does he need a pre-cert. Await response. Plan: d/c back to [facility] Selene GONZALEZ
[2024-11-26] MEDS: 0.9% Saline Lock 10 ML Syringe IV ×2 (11:42→18:20)
[2024-11-26] MEDS: Furosemide 40 MG/4 ML Vial IV ×2 (11:44→18:20)
[2024-11-26 12:01] LABS: Bedside Glucose 103 mg/dL (74-106)
--- NOTE | 2024-11-26 12:57 | STRESSREP_ITS ---
Stress Test Report Date: 11/26/2024 Procedure: Pharmacologic stress nuclear imaging study Indications: Chest pain Consent: Per the patient Procedure: The patient underwent pharmacologic (Regadenoson) evaluation with a peak heart rate of 79 beats per minute (58%predicted maximal heart rate) and a peak blood pressure of 126/60 mmHg. The baseline ECG demonstrated normal sinus rhythm. EKG during lexiscan infusion revealed no significant ischemic changes. EKG post infusion revealed no significant ischemic changes [There were no cardiac dysrhythmias pretest, during pharmacologic infusion, or recovery]. [There was no complaint of chest discomfort during pharmacologic infusion or recovery]. The examination was discontinued secondary to completion of protocol. Impression: 1. Lexiscan stress test test is negative for Lexiscan infusion induced EKG changes of ischemia. 2. Lexiscan stress test test is negative for Lexiscan infusion induced chest pain. 3. Results of the nuclear portion of the test is as below Myocardial perfusion imaging study: Technique: The patient was injected with 12 millicuries of technetium 99m Cardiolite and subsequently rest SPECT Cardiolite nuclear imaging was obtained in the horizontal long, vertical long, and short axis views. The patient underwent pharmacologic [Regadenoson 0.4mg] evaluation. Please see above for details. The patient was injected with 35.4 millicuries of technetium 99m Cardiolite and subsequently stress SPECT Cardiolite nuclear imaging was obtained in the horizontal long, vertical long, and short axis views. A gated Cardiolite study at peak stress was obtained. Interpretation: Rest and stress SPECT Cardiolite nuclear imaging status post realignment, normalization, and attenuation correction demonstrate no evidence of significant ischemia. Gated images reveal no significant regional wall motion abnormalities. The reported LVEF is 61%. Impression: 1. There is no evidence of significant ischemia. 2. Estimated ejection fraction is 61%. This note was generated with [employer] software. It may contain incorrect words, spelling, and punctuation that were not noted in checking the note before signing.
--- NOTE | 2024-11-26 14:49 | CASEMGMT ---
NITA CM in to complete ANTONY form with patient. NITA CARVAJAL explained ANTONY Form to patient, patient voiced understanding. Patient signed ANTONY Form and filed in chart. Patient provided copy of signed ANTONY Form. Patient had no further questions or concerns.
[2024-11-26 15:01] VITALS: BP 115/58; PULSE 78; RESP 16; TEMP 36.7; O2SAT 98
[2024-11-26] MEDS: Ascorbic Acid 500 MG Tablet PO ×2 (15:03→22:03)
[2024-11-26] MEDS: Ferrous Sulfate 325 MG Tablet PO (15:03)
[2024-11-26 15:04] VITALS: PULSE 78
[2024-11-26] MEDS: Metoprolol(XL)Succ 50 MG Tablet PO (15:04)
[2024-11-26] MEDS: Pantoprazole Sodium 40 MG Tablet PO ×2 (15:04→22:02)
[2024-11-26] MEDS: Ezetimibe 10 MG Tablet PO (15:04)
[2024-11-26] MEDS: Isosorbide Mononitrate 30 MG Tablet 15 MG PO (15:04)
[2024-11-26] MEDS: APIXABAN 5 MG TABLET PO ×2 (15:05→22:02)
[2024-11-26] MEDS: Amiodarone 200 MG Tablet PO (15:06)
[2024-11-26] MEDS: Gabapentin 400 MG Capsule PO ×2 (15:08→22:02)
[2024-11-26 17:05] LABS: Bedside Glucose 149 mg/dL (74-106)
[2024-11-26 20:19] VITALS: BP 94/52; PULSE 70; RESP 16; TEMP 36.4; O2SAT 97
[2024-11-26] MEDS: Atorvastatin Calcium 10 MG Tablet PO (22:02)
[2024-11-26] MEDS: traZODone 50 MG Tablet 75 MG PO (22:02)
[2024-11-26] MEDS: Tamsulosin HCl 0.4 MG Capsule PO (22:02)
[2024-11-26 22:45] LABS: Bedside Glucose 104 mg/dL (74-106)
[2024-11-27 02:46] VITALS: BP 94/50; PULSE 60; RESP 16; TEMP 36.6; O2SAT 95
[2024-11-27 06:27] LABS: Bedside Glucose 99 mg/dL (74-106)
--- NOTE | 2024-11-27 08:41 | PCM.PN.HOSP ---
Reason for Visit Reason for Visit: Diagnoses Chest pain, unspecified (11/25/24) Other specified abnormal findings of blood chemistry (11/25/24) Subjective Subjective Patient nuclear stress test came back negative for stress-induced ischemia. Plan is for patient to be discharged back to his ECF pending insurance approval Objective Data Objective Data Vital Signs: Vital Signs Temp Pulse Resp BP Pulse Ox O2 Del Method 98 F 60 16 94/50 L 95 Room Air 11/27/24 02:46 11/27/24 02:46 11/27/24 02:46 11/27/24 02:46 11/27/24 02:46 11/27/24 08:13 Oxygen Delivery Method Room Air Weight: 73.5 kg Body Mass Index (BMI) 25.3 Intake & Output: Intake and Output for Last 24 Hours 11/25/24 11/26/24 11/27/24 23:59 23:59 23:59 Intake Total 220 / 220 330 / 330 Output Total 800 / 800 1650 / 2000 650 / 650 Balance -580 / -580 -1320 / -1670 -650 / -650 Lab / Micro Data 11/26/24 04:40 11/26/24 04:40 Labs: Laboratory Results - last 24 hr 11/26/24 11:39: POC Glucose 103 11/26/24 16:46: POC Glucose 149 H 11/26/24 22:01: POC Glucose 104 11/27/24 06:08: POC Glucose 99 Rhythm Strip Rhythm Strip: Sinus Rhythm Rate: 70 Ectopy: None Physical Exam Narrative GENERAL: cooperative HEENT: Atraumatic; normocephalic EYES; Anicteric, Normal Conjunctiva NECK; supple, normal thyroid, RESPIRATORY: Diminished to auscultation CARDIOVASCULAR: Regular S1-S2 GI: soft, normoactive bowel sounds, : No Renal angle tenderness; EXTREMITIES: No edema, no clubbing, MUSCULOSKELETAL: no muscle wasting NEURO: Awake; no lateralizing signs. SKIN: No Rash PSYCH; Flat affect Assessment & Plan Assessment/Plan (1) Chest pain: (2) Elevated troponin: PLAN: Plan Patient is an 84-year-old gentleman who is currently undergoing rehabilitation at a nursing home facility who presented with left-sided chest pain. Per patient he felt his pain was related to exercises he had participated. He has significant past medical history including coronary artery disease with previous CABG. Admitted to a monitored bed for further management 1. Chest pain secondary to musculoskeletal pain ? Patient has significant past cardiac history including coronary artery disease with previous CABG. Admitted to monitored bed. Patient initially high-sensitivity troponin was slightly elevated. However did remain flat. Underwent subsequent evaluation with a nuclear stress test results of which are still pending ? 11/27/2024 patient nuclear stress test came back negative for stress-induced ischemia 2. Acute on chronic congestive heart failure with preserved ejection fraction ? Echo from 11/07/2024 demonstrated EF of 65% with stage III diastolic dysfunction. Patient placed on diuretic therapy, fluid restriction, strict input and output, daily weights and low-sodium diet 3. Coronary artery disease ? With previous CABG; Patient is on guideline directed medical therapy 4. Paroxysmal atrial fibrillation ? Rate controlled on amiodarone on systemic anticoagulation with apixaban continue 5. Hypertension ? Blood pressure controlled, home medications continued with dose adjustment as needed 6. Diabetes mellitus type II -patient's oral hypoglycemics held. Placed on long acting insulin, Accu-Cheks a.c. and at bedtime and covered with sliding scale insulin 7.Dyslipidemia ?Patient is on statin therapy, continued at home dose 8. GERD ? On PPI 9. BPH with lower urinary obstructive symptoms - Patient treated with tamsulosin 10. DVT prophylaxis ? On apixaban 11. Physical deconditioning ? Requested for PT OT eval and social scientist to assist with discharge planning. Patient was admitted from an [facility] plan is for patient to be discharged back once insurance precertification is obtained Time spent in the patient's overall evaluation,decision-making process, review of diagnostic data, adjustment of management, discussion with other providers, nursing nursing and ancillary staff involved in patient's care documentation, 36 Minutes Charges/Coding Visit Charges Inpatient E&M: 03049 Subs Hosp L2
[2024-11-27 08:46] VITALS: BP 105/53; PULSE 66; RESP 16; TEMP 36.5; O2SAT 100
[2024-11-27] MEDS: Docusate Sodium 100 MG Capsule PO (08:50)
[2024-11-27] MEDS: APIXABAN 5 MG TABLET PO ×2 (08:51→20:25)
[2024-11-27] MEDS: Isosorbide Mononitrate 30 MG Tablet 15 MG PO (08:51)
[2024-11-27] MEDS: Amiodarone 200 MG Tablet PO (08:51)
[2024-11-27 08:52] VITALS: BP 105/53; PULSE 66
[2024-11-27] MEDS: Furosemide 40 MG/4 ML Vial IV ×2 (08:52→17:52)
[2024-11-27] MEDS: Polyethylene Glycol 3350 17 GM PACKET PO (08:52)
[2024-11-27] MEDS: Metoprolol(XL)Succ 50 MG Tablet PO (08:52)
[2024-11-27] MEDS: Pantoprazole Sodium 40 MG Tablet PO ×2 (08:52→20:26)
[2024-11-27] MEDS: 0.9% Saline Lock 10 ML Syringe IV ×2 (08:53→17:52)
[2024-11-27] MEDS: Ascorbic Acid 500 MG Tablet PO ×2 (08:53→20:26)
[2024-11-27] MEDS: Ezetimibe 10 MG Tablet PO (08:53)
[2024-11-27] MEDS: Gabapentin 400 MG Capsule PO ×2 (08:56→20:25)
[2024-11-27] MEDS: Ferrous Sulfate 325 MG Tablet PO (11:15)
[2024-11-27 11:35] LABS: Bedside Glucose 138 mg/dL (74-106)
[2024-11-27 14:31] VITALS: BP 103/57; PULSE 62; RESP 14; TEMP 36.6; O2SAT 98
[2024-11-27 16:47] LABS: Bedside Glucose 103 mg/dL (74-106)
[2024-11-27] MEDS: traZODone 50 MG Tablet 75 MG PO (20:25)
[2024-11-27] MEDS: Atorvastatin Calcium 10 MG Tablet PO (20:25)
[2024-11-27] MEDS: Tamsulosin HCl 0.4 MG Capsule PO (20:26)
[2024-11-27] MEDS: Insulin Lispro 100 UNIT/ML INSULN.PEN SC (20:26)
[2024-11-27 21:51] VITALS: BP 110/61; PULSE 66; RESP 14; TEMP 36.4; O2SAT 97
[2024-11-27 21:51] LABS: Bedside Glucose 166 mg/dL (74-106)
[2024-11-28 03:51] VITALS: BP 109/60; PULSE 66; RESP 14; TEMP 36.6
[2024-11-28 07:14] LABS: Bedside Glucose 96 mg/dL (74-106)
[2024-11-28 09:00] VITALS: BP 101/51; PULSE 65; RESP 18; TEMP 36.3; O2SAT 100
--- NOTE | 2024-11-28 09:18 | CASEMGMT ---
Updates sent to [facility] with note to submit for precert. Tg Kirby DC Planning Asst.
[2024-11-28] MEDS: APIXABAN 5 MG TABLET PO (09:22)
[2024-11-28] MEDS: Gabapentin 400 MG Capsule PO (09:22)
[2024-11-28] MEDS: Polyethylene Glycol 3350 17 GM PACKET PO (09:22)
[2024-11-28] MEDS: Docusate Sodium 100 MG Capsule PO (09:22)
[2024-11-28] MEDS: Amiodarone 200 MG Tablet PO (09:22)
[2024-11-28] MEDS: Ezetimibe 10 MG Tablet PO (09:22)
[2024-11-28] MEDS: Pantoprazole Sodium 40 MG Tablet PO (09:22)
[2024-11-28] MEDS: Ferrous Sulfate 325 MG Tablet PO (09:24)
[2024-11-28 09:52] VITALS: BP 101/51; PULSE 65
[2024-11-28] MEDS: Ascorbic Acid 500 MG Tablet PO (09:52)
[2024-11-28] MEDS: Metoprolol(XL)Succ 25 MG Tablet PO (09:52)
[2024-11-28 09:55] LABS: Anion Gap 12 (5-15); BUN 20 mg/dL (4-19); BUN/Creat Ratio 12.7 RATIO (10-20); Calcium,Total 9.1 mg/dL (7.6-11.0); Carbon Dioxide 27.1 mmol/L (21.0-32.0); Chloride 100 mmol/L (98-108); Creatinine, Serum 1.57 mg/dL (0.70-1.20); EST Glomerular Filtration Rate 43 (>60); Estimated Creatinine Clearance 31.58 ml/min (50-250); Glucose 152 mg/dL (70-99); Potassium 4.1 mmol/L (3.3-5.1); Sodium Level 139 mmol/L (133-145)
[2024-11-28 11:46] LABS: Bedside Glucose 107 mg/dL (74-106)
[2024-11-28 15:00] VITALS: BP 123/59; PULSE 66; RESP 18; TEMP 36.4; O2SAT 100
--- NOTE | 2024-11-28 15:47 | CASEMGMT ---
Patient was approved to return to [facility]. SW notified physician. Plan: d/c back to [facility] under skilled level of care. Physicians will transport patient via wheelchair van. Selene GONZALEZ
--- NOTE | 2024-11-28 15:58 | CASEMGMT ---
[facility] has obtained auth to admit. Tg Kirby DC Planning Asst.
--- NOTE | 2024-11-28 16:07 | TREXTCAR_ITS ---
Diet Diet Order/Speech Therapy: 11/26/24 13:46 ADA [Diet: Cardiac: Calorie-Controlled] Fluid restriction:: 1500 mL How many daily calories?: 1800 calorie Routine Orders/Code Status Suppository Type: Dulcolax 10mg Suppository Frequency: Daily PRN Routine Lab Work: BMP (2-3 days, potassium, kidney function) Code Status: Full Code DC O2, CPAP, BIPAP needs Home O2 Discharge instructions: No Wound(s) R hip: Wound Type: Surgical Incision Therapies Physical Therapy: Eval and Treat Occupational Therapy: Eval and Treat Problem/Diagnosis (1) Chest pain: Status: Acute Code(s): R07.9 - Chest pain, unspecified (2) Elevated troponin: Status: Acute Code(s): R79.89 - Other specified abnormal findings of blood chemistry Plan # Mild exacerbation of chronic HFpEF #Elevated trop suspect 2/ #above # Recent right hip replacement # BPH # GERD # Insomnia # A-fib # Coronary artery disease # Hypertension # Diabetes mellitus 84-year-old male with history as above presented to [facility] ED 11/25/2024 due to chest pain. The pain was on the left side and not pressure- like, it was mostly just there but did radiate to his left arm but he thought this potentially was due to therapy the day before but given his history skilled facility wanted him worked up for chest pain rule out ACS. Patient admitted was noted to have a proBNP of 4700 and an initial troponin of 59 with repeat of 60. Chest x-ray query multifocal pneumonia but patient with no sputum production or other signs or symptoms or other signs or symptoms that would lead 120 patient had any ongoing infectious etiology and is felt that presentation more consistent with fluid overload so patient admitted and placed on IV Lasix and also underwent nuclear stress test which was negative. Patient's symptoms completely resolved and he is doing well. On day of discharge patient with no new or acute complaints, insurance approval achieved for patient go back to [facility], patient reports he feels better than he has in a while and has no concerns. Discharge instructions as follows: - given your normal potassium during admission you are scheduled Home potassium has been held -Would recommend lab work ( BMP) to check your kidney function and potassium in 2 to 3 days - please follow-up with your orthopedic doctor as previously scheduled - due to slightly low blood pressure your metoprolol was decreased to 25 mg -Weigh yourself every day. A sudden weight gain can mean you are retaining fluid. Weigh yourself at the same time of day and in the same kind of clothes. Ideally, weigh yourself first thing in the morning after you empty your bladder, but before you eat breakfast. -Please call your physician if your weight goes up by more than 2 pounds in 1 day or 5 pounds in 1 week. This can be a sign that you are retaining more fluid than you should be. Allergies/Procedures Done in Hospital Allergies Sulfa (Sulfonamide Antibiotics) Allergy (Verified 11/25/24 14:13) Unknown Type of Care/Length of Stay Estimated LOS: Convalescent Care Less Than 30 days Type of Care Needed: Skilled Rehab Potential: Fair Prognosis: Fair Additional Orders/Day of Discharge Day of Discharge: 11/28/24 Discharge Plan Admission Admit Date/Time: 11/25/24 17:39 Primary Reason for Your Visit: Chest pain Attending Provider: Fiorella Ramos Primary Care Provider: Valery Quinteros Consulting Providers: Ju Fragoso; Artie Palacio Instructions Patient Instructions: ED Fall Prevention Additional Instructions / Restrictions: DISCHARGE INSTRUCTIONS PLEASE READ *Please take this with you to your next doctors appointment* - given your normal potassium during admission you are scheduled Home potassium has been held -Would recommend lab work ( BMP) to check your kidney function and potassium in 2 to 3 days - please follow-up with your orthopedic doctor as previously scheduled - due to slightly low blood pressure your metoprolol was decreased to 25 mg -Weigh yourself every day. A sudden weight gain can mean you are retaining fluid. Weigh yourself at the same time of day and in the same kind of clothes. Ideally, weigh yourself first thing in the morning after you empty your bladder, but before you eat breakfast. -Please call your physician if your weight goes up by more than 2 pounds in 1 day or 5 pounds in 1 week. This can be a sign that you are retaining more fluid than you should be. -Please call your primary care provider's office upon discharge to schedule a hospital follow up within 1 week. -For any concerning signs or symptoms please call 911 or proceed to the nearest emergency department Discharge Orders/Prescriptions Prescriptions: Continued isosorbide mononitrate 30 MG tablet extended release 24 hr 15 mg PO DAILY gabapentin 400 mg capsule 400 mg PO BID ezetimibe 10 mg tablet 10 mg PO DAILY Eliquis 5 mg tablet 5 mg PO BID Qty: 60 0RF tamsulosin 0.4 mg capsule 0.4 mg PO QHS metformin 500 mg tablet extended release 24 hr 500 mg PO DAILY acetaminophen 500 mg capsule 1,000 mg PO Q8H PRN (Reason: fever or pain) acetaminophen 650 mg suppository 650 mg NC Q4H PRN (Reason: fever or pain) amiodarone 200 mg tablet 200 mg PO DAILY MAG-AL 200-200 mg/5 mL suspension 30 ml PO Q4H PRN (Reason: dyspepsia) ascorbic acid (vitamin C) 500 mg capsule 500 mg PO BID bisacodyl 10 mg suppository 10 mg NC DAILY PRN (Reason: constipation) docusate sodium 100 mg capsule 100 mg PO DAILY ferrous sulfate [FeroSul] 325 mg (65 mg iron) tablet 325 mg PO DAILY Fleet Enema 19-7 gram/118 mL enema 118 ml NC DAILY PRN (Reason: constipation) magnesium hydroxide [Milk of Magnesia] 400 mg/5 mL suspension 30 ml PO DAILY PRN (Reason: constipation) polyethylene glycol 3350 [ClearLax] 17 gram/dose powder 17 g PO DAILY ondansetron 4 mg tablet,disintegrating 4 mg PO Q6H PRN (Reason: nausea and vomiting) furosemide 40 mg Tablet 40 mg PO DAILY 30 Days Qty: 0 0RF pantoprazole [Protonix] 40 mg tablet,delayed release (DR/EC) 40 mg PO BID 30 Days Qty: 60 0RF simvastatin 20 mg tablet 20 mg PO QHS trazodone 150 mg tablet 75 mg PO QHS Changed metoprolol succinate 50 mg Tablet Extended Release 24 Hr 25 mg PO DAILY Qty: 30 0RF Discontinued potassium chloride [K-Tab] 20 mEq tablet extended release 20 meq PO BID Referrals / Follow Up: Valery Quinteros, STRIPE MARKER [Primary Care Provider] - Within 1 Week Disposition Disposition (needs filled in before D/C Order can be placed): Long Term Facility
--- NOTE | 2024-11-28 16:10 | DS.PCM_ITS ---
Providers Date of Admission: 11/25/24 Date of Discharge: 11/28/24 Primary Care Physician: PANCHITO Harris Reason For Visit: CHEST PAIN Diagnosis Discharge Diagnosis (1) Chest pain: Status: Acute Code(s): R07.9 - Chest pain, unspecified (2) Elevated troponin: Status: Acute Code(s): R79.89 - Other specified abnormal findings of blood chemistry Plan # Mild exacerbation of chronic HFpEF #Elevated trop suspect 2/2 #above # Recent right hip replacement # BPH # GERD # Insomnia # A-fib # Coronary artery disease # Hypertension # Diabetes mellitus Medications at Discharge Home Medications isosorbide mononitrate 30 mg tablet,extended release 24 hr 15 mg PO DAILY HEART 08/23/19 gabapentin 400 mg capsule 400 mg PO BID NERVE PAIN 06/25/21 ezetimibe 10 mg tablet 10 mg PO DAILY CHOLESTROL 09/24/23 apixaban 5 mg tablet (Eliquis) 5 mg PO BID CEREBRAL INFARCTION #60 tabs 09/26/23 acetaminophen 500 mg capsule 1,000 mg PO Q8H PRN fever or pain 11/07/24 acetaminophen 650 mg rectal suppository 650 mg NV Q4H PRN fever or pain 11/07/24 aluminum-magnesium hydroxide 200 mg-200 mg/5 mL oral suspension (MAG-AL) 30 ml PO Q4H PRN dyspepsia 11/07/24 amiodarone 200 mg tablet 200 mg PO DAILY AFIB 11/07/24 ascorbic acid (vitamin C) 500 mg capsule 500 mg PO BID SUPPLEMENT 11/07/24 bisacodyl 10 mg rectal suppository 10 mg NV DAILY PRN constipation 11/07/24 docusate sodium 100 mg capsule 100 mg PO DAILY CONSTIPATION 11/07/24 ferrous sulfate 325 mg (65 mg iron) tablet (FeroSul) 325 mg PO DAILY ANEMIA 11/07/24 magnesium hydroxide 400 mg/5 mL oral suspension (Milk of Magnesia) 30 ml PO DAILY PRN constipation 11/07/24 metformin 500 mg tablet,extended release 24 hr 500 mg PO DAILY DIABETES 11/07/24 ondansetron 4 mg disintegrating tablet 4 mg PO Q6H PRN nausea and vomiting 11/07/24 polyethylene glycol 3350 17 gram/dose oral powder (ClearLax) 17 g PO DAILY 11/07/24 sodium phosphates 19 gram-7 gram/118 mL enema (Fleet Enema) 118 ml NV DAILY PRN constipation 11/07/24 tamsulosin 0.4 mg capsule 0.4 mg PO QHS 11/07/24 furosemide 40 mg tablet 40 mg PO DAILY EDEMA 30 days #0 tabs 11/10/24 pantoprazole 40 mg tablet,delayed release (Protonix) 40 mg PO BID HEARTBURN 30 days #60 tabs 11/10/24 simvastatin 20 mg tablet 20 mg PO QHS 11/25/24 trazodone 150 mg tablet 75 mg PO QHS INSOMNIA 11/25/24 metoprolol succinate 50 mg tablet,extended release 24 hr 25 mg (1/2 x 50 mg) PO DAILY ANGINA #30 tabs 11/28/24 Hospital Course Summary of Care Provided Minutes Spent on Discharge: 31 Hospital Course: # Mild exacerbation of chronic HFpEF #Elevated trop suspect 09/25 #above # Recent right hip replacement # BPH # GERD # Insomnia # A-fib # Coronary artery disease # Hypertension # Diabetes mellitus 84-year-old male with history as above presented to [facility] ED 11/25/2024 due to chest pain. The pain was on the left side and not pressure- like, it was mostly just there but did radiate to his left arm but he thought this potentially was due to therapy the day before but given his history skilled facility wanted him worked up for chest pain rule out ACS. Patient admitted was noted to have a proBNP of 4700 and an initial troponin of 59 with repeat of 60. Chest x-ray query multifocal pneumonia but patient with no sputum production or other signs or symptoms or other signs or symptoms that would lead 120 patient had any ongoing infectious etiology and is felt that presentation more consistent with fluid overload so patient admitted and placed on IV Lasix and also underwent nuclear stress test which was negative. Patient's symptoms completely resolved and he is doing well. On day of discharge patient with no new or acute complaints, insurance approval achieved for patient go back to [facility], patient reports he feels better than he has in a while and has no concerns. Discharge instructions as follows: - given your normal potassium during admission you are scheduled Home potassium has been held -Would recommend lab work ( BMP) to check your kidney function and potassium in 2 to 3 days - please follow-up with your orthopedic doctor as previously scheduled - due to slightly low blood pressure your metoprolol was decreased to 25 mg -Weigh yourself every day. A sudden weight gain can mean you are retaining fluid. Weigh yourself at the same time of day and in the same kind of clothes. Ideally, weigh yourself first thing in the morning after you empty your bladder, but before you eat breakfast. -Please call your physician if your weight goes up by more than 2 pounds in 1 day or 5 pounds in 1 week. This can be a sign that you are retaining more fluid than you should be. Physical Exam Narrative General: Alert, oriented, no apparent distress HEENT: Atraumatic, normocephalic Eyes: Anicteric, normal conjunctiva, extraocular movements grossly intact Neck: Supple Respiratory: No significant wheezes or rhonchi, normal respiratory effort Cardiovascular: Regular rate GI: Soft, nontender, nondistended Extremities: No edema Musculoskeletal: Moving all extremities Neuro: No overt focal neurological deficits Skin: No rashes appreciated Psych: Cooperative Weight / BMI Weight Weight: 73.5 kg Body Mass Index (BMI) 25.3 ABG / Lab / Microbiology Data 11/26/24 04:40 11/28/24 09:14 Laboratory: Laboratory Results - last 24 hr 11/27/24 16:16: POC Glucose 103 11/27/24 20:16: POC Glucose 166 H 11/28/24 06:54: POC Glucose 96 11/28/24 09:14: Sodium 139, Potassium 4.1, Chloride 100, Carbon Dioxide 27.1, Anion Gap 12, BUN 20 H, Creatinine 1.57 H, Estim Creat Clear Calc 31.58 L, Est GFR (MDRD) Non-Af 43 L, BUN/Creatinine Ratio 12.7, Glucose 152 H, Calcium 9.1 11/28/24 11:21: POC Glucose 107 H D/C Instructions Discharge Diet: - (Cardiac, calorie controlled) DC O2, CPAP, BIPAP Needs Home O2 Discharge instructions: No Meaningful Use Info Meaningful Use Meaningful Use Diagnoses (Choose all that apply): CHF CHF ANAMARIA/ARB ordered at discharge?: No Reason ANAMARIA/ARB not ordered?: Hypotension Documented LVEF (%): 65 Ischemic Stroke Statin Dosing Therapy Reference: STATIN DOSE THERAPY REFERENCE: * Patients > 75 years receive moderate or high dose statin therapy. * Patients 75 years or YOUNGER should receive HIGH intensity statin dose unless contraindicated. You will be required to document reason for non-treatment if statin daily dose does not meet guidelines. HIGH DOSE STATIN THERAPY DAILY Atorvastatin > than or = to 40 mg Rosuvastatin > than or = to 20 mg Amlodipine + Atorvastatin > than or = to 2.5/40 mg Ezetimibe + Simvastatin 10/80 mg Simvastatin 80mg Discharge Plan Admission Admit Date/Time: 11/25/24 17:39 Primary Reason for Your Visit: Chest pain Attending Provider: Fiorella Ramos Primary Care Provider: Valery Quinteros Consulting Providers: Ju Fragoso; Artie Palacio Instructions Patient Instructions: ED Fall Prevention Additional Instructions / Restrictions: DISCHARGE INSTRUCTIONS PLEASE READ *Please take this with you to your next doctors appointment* - given your normal potassium during admission you are scheduled Home potassium has been held -Would recommend lab work ( BMP) to check your kidney function and potassium in 2 to 3 days - please follow-up with your orthopedic doctor as previously scheduled - due to slightly low blood pressure your metoprolol was decreased to 25 mg -Weigh yourself every day. A sudden weight gain can mean you are retaining fluid. Weigh yourself at the same time of day and in the same kind of clothes. Ideally, weigh yourself first thing in the morning after you empty your bladder, but before you eat breakfast. -Please call your physician if your weight goes up by more than 2 pounds in 1 day or 5 pounds in 1 week. This can be a sign that you are retaining more fluid than you should be. -Please call your primary care provider's office upon discharge to schedule a hospital follow up within 1 week. -For any concerning signs or symptoms please call 911 or proceed to the nearest emergency department Discharge Orders/Prescriptions Prescriptions: Continued isosorbide mononitrate 30 MG tablet extended release 24 hr 15 mg PO DAILY gabapentin 400 mg capsule 400 mg PO BID ezetimibe 10 mg tablet 10 mg PO DAILY Eliquis 5 mg tablet 5 mg PO BID Qty: 60 0RF tamsulosin 0.4 mg capsule 0.4 mg PO QHS metformin 500 mg tablet extended release 24 hr 500 mg PO DAILY acetaminophen 500 mg capsule 1,000 mg PO Q8H PRN (Reason: fever or pain) acetaminophen 650 mg suppository 650 mg NV Q4H PRN (Reason: fever or pain) amiodarone 200 mg tablet 200 mg PO DAILY MAG-AL 200-200 mg/5 mL suspension 30 ml PO Q4H PRN (Reason: dyspepsia) ascorbic acid (vitamin C) 500 mg capsule 500 mg PO BID bisacodyl 10 mg suppository 10 mg NV DAILY PRN (Reason: constipation) docusate sodium 100 mg capsule 100 mg PO DAILY ferrous sulfate [FeroSul] 325 mg (65 mg iron) tablet 325 mg PO DAILY Fleet Enema 19-7 gram/118 mL enema 118 ml NV DAILY PRN (Reason: constipation) magnesium hydroxide [Milk of Magnesia] 400 mg/5 mL suspension 30 ml PO DAILY PRN (Reason: constipation) polyethylene glycol 3350 [ClearLax] 17 gram/dose powder 17 g PO DAILY ondansetron 4 mg tablet,disintegrating 4 mg PO Q6H PRN (Reason: nausea and vomiting) furosemide 40 mg Tablet 40 mg PO DAILY 30 Days Qty: 0 0RF pantoprazole [Protonix] 40 mg tablet,delayed release (DR/EC) 40 mg PO BID 30 Days Qty: 60 0RF simvastatin 20 mg tablet 20 mg PO QHS trazodone 150 mg tablet 75 mg PO QHS Changed metoprolol succinate 50 mg Tablet Extended Release 24 Hr 25 mg PO DAILY Qty: 30 0RF Discontinued potassium chloride [K-Tab] 20 mEq tablet extended release 20 meq PO BID Referrals / Follow Up: Valery Quinteros, MANAGER ER [Primary Care Provider] - Within 1 Week Disposition Disposition (needs filled in before D/C Order can be placed): [facility] Facility Charges/Coding Visit Charges Inpatient E&M: 91676 Disch Hosp >30min
[2024-11-28 16:11] VITALS: BP 123/59; PULSE 66; RESP 18; TEMP 36.4; O2SAT 100
--- NOTE | 2024-11-28 16:15 | CHAPLAIN ---
Type of Pastoral Visit _x__ Initial Visit ___ Follow-up Visit ___ On-call Visit ___ General Patient Visit ___ Spiritual Assessment ___ Family Conference ___ Bereavement ___ Rapid Response ___ Code Blue ___ Other (describe below) Pastoral Care Referral From _x__ Patient ___ Family ___ Nurse ___ Physician ___ Clinical Psychologist Private Practice ___ Marine Electronics Technician ___ Other (describe below) Sacrament/Intervention _x__ Active listening ___ Anointing ___ Mandaen ___ Bereavement ___ Communion _x__ Carolee exploration ___ _x__ Life review _x__ Prayer ___ Reconciliation ___ Sacrament of Sick _x__ Supportive presence ___ Wedding ___ Other (describe below) Pastoral Comments patient is welcoming and talkative; pt says that he likes to talk with a net architect but explains that currently he and his no longer go to [employer]; pt has long history in [employer] attendance and identifies as a believer in [place]; pt says that prayer makes a difference and he would like prayer for himself and his who has multiple needs
--- NOTE | 2024-11-28 16:17 | PHA.DC.MR.R ---
Pharmacy [place] Med Reconciliation Pharmacy Service has performed discharge medication reconciliation for this patient. The patient's discharge medication list was reviewed for discrepancies and discrepancies were resolved. Medications at Discharge Home Medications isosorbide mononitrate 30 mg tablet,extended release 24 hr 15 mg PO DAILY HEART 08/23/19 gabapentin 400 mg capsule 400 mg PO BID NERVE PAIN 06/25/21 ezetimibe 10 mg tablet 10 mg PO DAILY CHOLESTROL 09/24/23 apixaban 5 mg tablet (Eliquis) 5 mg PO BID CEREBRAL INFARCTION #60 tabs 09/26/23 acetaminophen 500 mg capsule 1,000 mg PO Q8H PRN fever or pain 11/07/24 acetaminophen 650 mg rectal suppository 650 mg OR Q4H PRN fever or pain 11/07/24 aluminum-magnesium hydroxide 200 mg-200 mg/5 mL oral suspension (MAG-AL) 30 ml PO Q4H PRN dyspepsia 11/07/24 amiodarone 200 mg tablet 200 mg PO DAILY AFIB 11/07/24 ascorbic acid (vitamin C) 500 mg capsule 500 mg PO BID SUPPLEMENT 11/07/24 bisacodyl 10 mg rectal suppository 10 mg OR DAILY PRN constipation 11/07/24 docusate sodium 100 mg capsule 100 mg PO DAILY CONSTIPATION 11/07/24 ferrous sulfate 325 mg (65 mg iron) tablet (FeroSul) 325 mg PO DAILY ANEMIA 11/07/24 magnesium hydroxide 400 mg/5 mL oral suspension (Milk of Magnesia) 30 ml PO DAILY PRN constipation 11/07/24 metformin 500 mg tablet,extended release 24 hr 500 mg PO DAILY DIABETES 11/07/24 ondansetron 4 mg disintegrating tablet 4 mg PO Q6H PRN nausea and vomiting 11/07/24 polyethylene glycol 3350 17 gram/dose oral powder (ClearLax) 17 g PO DAILY 11/07/24 sodium phosphates 19 gram-7 gram/118 mL enema (Fleet Enema) 118 ml OR DAILY PRN constipation 11/07/24 tamsulosin 0.4 mg capsule 0.4 mg PO QHS 11/07/24 furosemide 40 mg tablet 40 mg PO DAILY EDEMA 30 days #0 tabs 11/10/24 pantoprazole 40 mg tablet,delayed release (Protonix) 40 mg PO BID HEARTBURN 30 days #60 tabs 11/10/24 simvastatin 20 mg tablet 20 mg PO QHS 11/25/24 trazodone 150 mg tablet 75 mg PO QHS INSOMNIA 11/25/24 metoprolol succinate 50 mg tablet,extended release 24 hr 25 mg (1/2 x 50 mg) PO DAILY ANGINA #30 tabs 11/28/24
--- NOTE | 2024-11-28 16:18 | CASEMGMT ---
Discharge Planning Discharge orders, signed med list, and transport time sent to [facility]. Physicians will transport pt by wheelchair at 4:30p. Nursing, SW, pt, and his son (Rich) updated. Tg Kirby DC Planning Asst.
--- NOTE | 2024-11-28 16:25 | NURSING ---
Report called to nurse Fay at [facility] for pt to return to prior facility.
== END 2024-11-28 16:57 | disposition skilled nursing facility (03) ==
LOC: ED 17:22 → PCU 17:52
PROVIDERS: Internal Medicine; Admitting Provider Student in an Organized Health Care Education/Training Program; Emergency Provider Emergency Medicine; PCP Clinical Nurse Specialist Adult Health; Visit Provider Internal Medicine
DX: R07.9 Chest pain, unspecified (principal); I11.0 Hypertensive heart disease with heart failure; I50.32 Chronic diastolic (congestive) heart failure; I48.91 Unspecified atrial fibrillation; E11.9 Type 2 diabetes mellitus without complications; Z87.891 Personal history of nicotine dependence; Z79.84 Long term (current) use of oral hypoglycemic drugs; Z96.641 Presence of right artificial hip joint; E78.5 Hyperlipidemia, unspecified; I25.10 Atherosclerotic heart disease of native coronary artery without angina pectoris; G47.00 Insomnia, unspecified; K21.9 Gastro-esophageal reflux disease without esophagitis; R79.89 Other specified abnormal findings of blood chemistry; I25.2 Old myocardial infarction; E87.5 Hyperkalemia; Z95.1 Presence of aortocoronary bypass graft; N40.0 Benign prostatic hyperplasia without lower urinary tract symptoms
CPT/HCPCS: 36415; 71046; 78452; 80048; 82962; 83880; 84484; 85025; 93005; 93017; 96374; 96376; 97110; 97162; 97166; 97530; 97535; 99221; 99285; A9500; A4216; G0378; J1940; J2785

== ENCOUNTER 2025-02-16 13:09 | Emergency (ER) | payer MEDICARE, SELFPAY ==
[2025-02-16 13:11] VITALS: BP 108/52; PULSE 66; RESP 19; TEMP 36.3; O2SAT 99
== END 2025-02-16 13:43 | disposition left against medical advice (07) ==
LOC: ED 13:45
PROVIDERS: PCP Clinical Nurse Specialist Adult Health
DX: S81.811A Laceration without foreign body, right lower leg, initial encounter (principal); W19.XXXA Unspecified fall, initial encounter; Z53.21 Procedure and treatment not carried out due to patient leaving prior to being seen by health care provider

== ENCOUNTER 2025-02-16 20:58 | Emergency (ER) | payer MEDICARE, SELFPAY ==
[2025-02-16 20:58] VITALS: BP 131/74; PULSE 65; RESP 14; TEMP 36.6; O2SAT 99
--- NOTE | 2025-02-16 23:18 | EX.ED.DYSGE1 ---
HPI History of Present Illness Chief Complaint: Wound Narrative Narrative: Chief complaint and HPI: Right lower extremity abrasions. 84-year-old male with past medical history of atrial fibrillation on Eliquis, GERD, HTN presents for evaluation of right lower extremity abrasions. Patient states that he accidentally tripped on boxes that he was carrying earlier today. He states that he landed on his right calf. Denies any hitting his head or LOC. Denies injury elsewhere. Developed 3 abrasions to his anterior calf. Patient states that they have been intermittently bleeding due to his Eliquis. He has tried Band-Aids. He denies any lightheadedness, syncope, weakness, lower extremity pain, numbness or tingling. States he is only here to stop the bleeding. Review of systems: See HPI Medications: As listed on the chart Allergies: As listed on the chart PFSH: Per chart Vital signs: As listed on the chart. Reviewed. Physical exam: Gen: A&O x3, NAD Head: Normocephalic, atraumatic Eyes: No sclera icterus, conjunctiva clear ENT: Moist mucous membranes, face atraumatic Neck: Full range of motion CV: RRR, no murmurs, no peripheral edema Resp: Lungs CTA BL, no w/r/c Musc: Full ROM, no deformity, right lower extremity without tenderness to palpation, compartments soft, DP/PT pulses +2 bilaterally, good capillary refill Skin: Warm, dry, 3 skin abrasions to the anterior right calf-inferior abrasion has minimal bleeding, no lacerations able to be repaired Neuro: Alert, oriented, grossly intact, sensation intact Psych: Cooperative, appropriate mood and affect [facility] Medical History Kidney disease GERD (gastroesophageal reflux disease) Former tobacco use HLD (hyperlipidemia) CAD (coronary artery disease) History of chronic hypertension Right leg weakness Myocardial infarct Hypertension Vertigo Home Medications ?Medication ?Instructions ?Recorded ?Last Taken ?Type isosorbide mononitrate 30 mg 15 mg PO DAILY HEART 08/23/19 06/25/21 History tablet,extended release 24 hr gabapentin 400 mg capsule 400 mg PO BID NERVE PAIN 06/25/21 06/25/21 History ezetimibe 10 mg tablet 10 mg PO DAILY CHOLESTROL 09/24/23 Unknown History apixaban 5 mg tablet (Eliquis) 5 mg PO BID CEREBRAL INFARCTION 09/26/23 Unknown Rx #60 tabs acetaminophen 500 mg capsule 1,000 mg PO Q8H PRN fever or pain 11/07/24 Unknown History acetaminophen 650 mg rectal 650 mg KS Q4H PRN fever or pain 11/07/24 Unknown History suppository aluminum-magnesium hydroxide 200 30 ml PO Q4H PRN dyspepsia 11/07/24 Unknown History mg-200 mg/5 mL oral suspension (MAG-AL) amiodarone 200 mg tablet 200 mg PO DAILY AFIB 11/07/24 Unknown History ascorbic acid (vitamin C) 500 mg 500 mg PO BID SUPPLEMENT 11/07/24 Unknown History capsule bisacodyl 10 mg rectal suppository 10 mg KS DAILY PRN constipation 11/07/24 Unknown History docusate sodium 100 mg capsule 100 mg PO DAILY CONSTIPATION 11/07/24 Unknown History ferrous sulfate 325 mg (65 mg 325 mg PO DAILY ANEMIA 11/07/24 Unknown History iron) tablet (FeroSul) magnesium hydroxide 400 mg/5 mL 30 ml PO DAILY PRN constipation 11/07/24 Unknown History oral suspension (Milk of Magnesia) metformin 500 mg tablet,extended 500 mg PO DAILY DIABETES 11/07/24 Unknown History release 24 hr ondansetron 4 mg disintegrating 4 mg PO Q6H PRN nausea and vomiting 11/07/24 Unknown History tablet polyethylene glycol 3350 17 17 g PO DAILY 11/07/24 Unknown History gram/dose oral powder (ClearLax) sodium phosphates 19 gram-7 118 ml KS DAILY PRN constipation 11/07/24 Unknown History gram/118 mL enema (Fleet Enema) tamsulosin 0.4 mg capsule 0.4 mg PO QHS 11/07/24 Unknown History furosemide 40 mg tablet 40 mg PO DAILY EDEMA 30 days #0 11/10/24 Unknown Rx tabs pantoprazole 40 mg tablet,delayed 40 mg PO BID HEARTBURN 30 days #60 11/10/24 Unknown Rx release (Protonix) tabs simvastatin 20 mg tablet 20 mg PO QHS 11/25/24 Unknown History trazodone 150 mg tablet 75 mg PO QHS INSOMNIA 11/25/24 Unknown History metoprolol succinate 50 mg 25 mg (1/2 x 50 mg) PO DAILY 04/07/25 Unknown Rx tablet,extended release 24 hr ANGINA #30 tabs Allergy/AdvReac Type Severity Reaction Status Date / Time Sulfa (Sulfonamide Allergy Unknown Verified 02/16/25 20:56 Antibiotics) Family History Mother Heart disease Father Heart disease Surgical History Status post arthroscopic knee surgery S/P bilateral foot surgery S/p bilateral carpal tunnel release S/P tonsillectomy and adenoidectomy S/P bilateral cataract extraction S/P CABG x 3 Stented coronary artery H/O right heart catheterization Social History household members: spouse Smoking Status: Former smoker how long ago did patient quit smoking: Quit when he was 44 y/o, 1/2 ppd since 10 years old. alcohol intake: never substance use type: does not use EXAM Physical Exam Const Vital Signs: 02/16/25 20:58 Temperature 98 F Temperature Source Temporal Pulse Rate 65 Respiratory Rate 14 Blood Pressure 131/74 H Blood Pressure Mean 93 Pulse Ox 99 Oxygen Delivery Method Room Air MDM MDM MDM Narrative Medical decision making narrative: 84-year-old male with past medical history of atrial fibrillation on Eliquis, GERD, HTN presents for evaluation of right lower extremity abrasions that are bleeding. Patient states that he accidentally tripped on boxes that he was carrying earlier today. He states that he landed on his right calf. Denies any hitting his head or LOC. Denies injury pain to the right lower extremity. States he is only here for the bleeding. He denies any lightheadedness, syncope, weakness, numbness/tingling. See physical exam findings. Patient has 3 skin abrasions to his right anterior calf. There are no lacerations to be repaired. There is minimal bleeding to the most inferior/distal abrasion. Patient likely has intermittent and recurrent bleeding secondary to him being on Eliquis. Given that he is asymptomatic, I do not think any H&H or coagulation panel is needed. Abrasions were cleaned, Surgifoam applied to the abrasion, and patient placed in a pressure dressing. He was told to leave this on for 24 hours and then reevaluate in the morning. He confirmed understanding of the plan. He declined tetanus. Patient stable to discharge home. Impression: 1. Right calf abrasions with bleeding 2. History of anticoagulation Discharge Plan Triage Chief Complaint: Wound ED Provider: Leonidas Glynn Dx/Rx/DC Orders Prescriptions: No Action isosorbide mononitrate 30 MG tablet extended release 24 hr 15 mg PO DAILY gabapentin 400 mg capsule 400 mg PO BID ezetimibe 10 mg tablet 10 mg PO DAILY Eliquis 5 mg tablet 5 mg PO BID Qty: 60 0RF tamsulosin 0.4 mg capsule 0.4 mg PO QHS metformin 500 mg tablet extended release 24 hr 500 mg PO DAILY acetaminophen 500 mg capsule 1,000 mg PO Q8H PRN (Reason: fever or pain) acetaminophen 650 mg suppository 650 mg KS Q4H PRN (Reason: fever or pain) amiodarone 200 mg tablet 200 mg PO DAILY MAG-AL 200-200 mg/5 mL suspension 30 ml PO Q4H PRN (Reason: dyspepsia) ascorbic acid (vitamin C) 500 mg capsule 500 mg PO BID bisacodyl 10 mg suppository 10 mg KS DAILY PRN (Reason: constipation) docusate sodium 100 mg capsule 100 mg PO DAILY ferrous sulfate [FeroSul] 325 mg (65 mg iron) tablet 325 mg PO DAILY Fleet Enema 19-7 gram/118 mL enema 118 ml KS DAILY PRN (Reason: constipation) magnesium hydroxide [Milk of Magnesia] 400 mg/5 mL suspension 30 ml PO DAILY PRN (Reason: constipation) polyethylene glycol 3350 [ClearLax] 17 gram/dose powder 17 g PO DAILY ondansetron 4 mg tablet,disintegrating 4 mg PO Q6H PRN (Reason: nausea and vomiting) furosemide 40 mg Tablet 40 mg PO DAILY 30 Days Qty: 0 0RF pantoprazole [Protonix] 40 mg tablet,delayed release (DR/EC) 40 mg PO BID 30 Days Qty: 60 0RF simvastatin 20 mg tablet 20 mg PO QHS trazodone 150 mg tablet 75 mg PO QHS metoprolol succinate 50 mg Tablet Extended Release 24 Hr 25 mg PO DAILY Qty: 30 0RF Primary Care Provider: Valery Quinteros Referrals: Valery Quinteros, TERRAPIN FISHER [Primary Care Provider] - Print Language: [place]ralt[place]
[2025-02-16 23:35] VITALS: BP 129/74; PULSE 68; RESP 16; TEMP 36.6; O2SAT 99
--- OUTSIDE RECORDS SUMMARY | 2025-02-16 23:39 | XMS RPT_ITS | CCD ---
Author Organization [facility] Care Team Providers Care Historic Interpreter Name Role Phone STEPHON DOMINGUEZ Unavailable Unavailable IMCA Unavailable Unavailable EDISON DOMINGUEZNETH Unavailable Unavailable DEBBIE STEPHON Unavailable Unavailable STEPHON DOMINGUEZ Unavailable Unavailable IMCA Unavailable Unavailable Lizeth Saini PA-C Primary Care Provider [phone] Paris Parker RN Unavailable Lizeth Saini PA-C Primary Care Provider [phone] Paris Parker RN Unavailable Lizeth Saini PA-C Primary Care Provider [phone] Paris Parker RN Unavailable Lizeth Saini PA-C Primary Care Provider [phone] Paris Parker RN Unavailable Bam RN, Beryl Unavailable Bam RN, Beryl Unavailable [place] Harris Primary Care Provider [phone] Dr. Cristiano Ramos Referring Provider Dr. Cristiano Ramos Other Provider KEVIN Siddiqui-Omid Xie Attending Provider Dr. Jah Ortiz Attending Provider Dr. Rudy Sin Emergency Provider Dr. Fiorella Ramos Admit Provider Dr. Fiorella Ramos Other Provider Dr. Alvin Dumont Attending Provider Dr. Alvin Dumont Other Provider Dr. Jah Ortiz Other Provider Lizeth Saini PA-C Primary Care Provider Sissen PSS, Ed Unavailable Unavailable Kayla Machado MD Unavailable Suppan PROTOZOOLOGIST.ASSISTANT PORTFOLIO MANAGER, Valery A Primary Care Provi bruce Lizeth Saini PA-C Primary Care Provider Sissen PSS, Ed Unavailable Unavailable Suppan PROTOZOOLOGIST.ASSISTANT PORTFOLIO MANAGER, Valery A Primary Care Provi bruce Suppan PROTOZOOLOGIST.ASSISTANT PORTFOLIO MANAGER, Valery A Primary Care Provi bruce Sissen PSS, Ed Unavailable Unavailable Cheri MEZA, Ryan Starr Unavailable Cheri MEZA, Ryan Starr Unavailable [phone] Suppan SLEEVE WHEEL MAKER, Valery Primary Care Provider Dr. Ana Hamilton MD Attending Provider UnavailDr. Ellyn Meza DO Emergency Provider Paula MADRIGAL, Dr. Balderas Admit Provider [phone] Dr. Andrey Mitchell DO Attending Provider Dr. Andrey Mitchell DO Referring Provider Dr. Andrey Mitchell DO Other Provider Richmond MEZA, Dr. Ju Varela Other Provider Dr. Slade Florez DO Attending Provider Dr. Ernie Powell MD Attending Provider Richmond MEZA, Dr. Ju Varela Attending Provider Dr. Ana Hamilton MD Referring Provider UnavailDr. Radha García DO Emergency Provider Richmond MEZA, Dr. Ju Varela Admit Provider Richard MEZA, Dr. Barros Attending Provider [phone] Hakeem MEZA, Dr. Alva Other Provider Unavailable Hakeem MEZA, Dr. Alva Attending Provider Unavaila yvon Barrientos MD, Dr. Melendez Attending Provider Richard MEZA, Dr. Barros Other Provider RYAN ALONZO Attending Unavail able SCARCERYAN BO Admitting Unavail able SUPPAN, VALERY A Primary Care Unavailable SUPPAN, VALERY A Primary Care Unavailable PROVIDER, UNKNOWN Referring Unavailable SUPPAN, VALERY A Primary Care Unavailable RYAN ALONZO Attending Unavail able SUPPAN, VALERY A Primary Care Unavailable JEANETTE SALOMON Consulting Unavailable RYAN ALONZO Attending Unavail able RYAN ALONZO Admitting Unavail able SUPPAN, VALERY A Primary Care Unavailable Gudla OLS, Ana Attending Unavailable Gudla OLS, Ana Referring Unavailable Suppan, Valery Primary Care Unavailable Suppan, Valery Primary Care Unavailable Gudla OLS, Ana Attending Unavailable Gudla OLS, Ana Referring Unavailable Suppan, Valery Primary Care Unavailable Gudla OLS, Ana Attending Unavailable Suppan, Valery Primary Care Unavailable Gudla OLS, Ana Referring Unavailable Gudla OLS, Ana Attending Unavailable Suppan, Valery Primary Care Unavailable Mosteller, Andrey Consulting Unavailable Mosteller, Andrey Admitting Unavailable Mosteller, Andrey Referring Unavailable Mosteller, Andrey Attending Unavailable Hansam, Ju Nichole Consulting Unavailable Suppan, Valery Primary Care Unavailable Ernie Powell Attending Unavailable Suppan, Valery Primary Care Unavailable Sailors, Prasanth Referring Unavailable Prasanth Torres Attending Unavailable Suppan, Valery Primary Care Unavailable Mosteller, Andrey Consulting Unavailable Mosteller, Andrey Admitting Unavailable Mosteller, Andrey Referring Unavailable Mosteller, Andrey Attending Unavailable Suppan, Valery Primary Care Unavailable Gudla OLS, Ana Attending Unavailable Suppan, Valery Primary Care Unavailable Gudla OLS, Ana Attending Unavailable Gudla OLS, Ana Attending Unavailable Suppan, Valery Primary Care Unavailable Suppan, Valery Primary Care Unavailable Gudla OLS, Ana Attending Unavailable Suppan, Valery Primary Care Unavailable Gudla Oren SILVERMANthi Attending Unavailable Louisa ANDRA Ana Referring Unavailable Artie Palacio Attending Unavailable Koram, Ju Nichole Admitting Unavailable Koram, Ju Nichole Consulting Unavailable Suppan, Valery Primary Care Unavailable Artie Palacio Consulting Unavailable Al Barrientos Attending UnavailFiorella Bowers Attending Unavailable Fiorella Ramos Consulting Unavailable Suppan, Valery Primary Care Unavailable Gudla Oren SILVERMANthi Attending Unavailable Luis Corbin Attending Unavailable Lizeth Harris Primary Care Unavailable Suppan, Valery Primary Care Unavailable Radha Goodrich Attending Unavailable Suppan, Valery Primary Care Unavailable Gudla ANDRA, Ana Attending Unavailable Jack Stout Attending Unavailable Lizeth Harris Primary Care Unavailable Slade Florez Attending Unavailable Koram, Ju Nichole Attending Unavailable Koram, Ju Nichole Consulting Unavailable Suppan, Valrey Primary Care Unavailable Gudla Ana SILVERMAN Attending Unavailable Koram, Ju Nichole Attending Unavailable Suppan, Valery Primary Care Unavailable Fiorella Ramos Attending Unavailable Koram, Ju Nichole Consulting Unavailable Koram, Ju Nichole Admitting Unavailable Artie Palacio Consulting Unavailable Suppan, Valery Primary Care Unavailable Gudla Oren SILVERMANthi Attending Unavailable SUPPAN, VALERY A Primary Care Unavailable SUPPAN, VALERY A Referring Unavailable ALVIN SAINI Primary Care Unavailable JEANIE TAVARES Attending UnavailALVIN Blackwood Primary Care Unavailable SUPPAN, VALERY A Attending Unavailable ALVIN SAINI Primary Care Unavailable RYAN ALONZO Referring Unavail able SUPPAN, VALERY A Primary Care Unavailable JENNIFER SEGOVIA Referring Unavailable HARLEEN ARMENTA Attending Unavailable SUPPAN, VALERY A Primary Care Unavailable RYAN ALONZO Referring Unavail able SUPPAN, VALERY A Primary Care Unavailable SUPPAN, VALERY A Attending Unavailable SUPPAN, VALERY A Primary Care Unavailable SUPPAN, VALERY A Primary Care Unavailable CARLIN KEENAN Attending Unavailable SUPPAN, VALERY A Primary Care Unavailable SUPPAN, VALERY A Attending Unavailable SUPPAN, VALERY A Primary Care Unavailable SUPPAN, VALERY A Attending Unavailable SAINI, ALVIN ARAUJO Primary Care Unavailable SAINI, ALVIN ARAUJO Attending Unavailable SAINI, ALVIN FERNANDOORY Primary Care Unavailable SUPPAN, VALERY A Attending Unavailable SAINI, ALVIN ARAUJO Primary Care Unavailable SUPPAN, VALERY A Referring Unavailable SAINI, ALVIN ARAUJO Primary Care Unavailable SUPPAN, VALERY A Referring Unavailable KAYLA MACHADO Attending Unavailable SUPPAN, VALERY A Primary Care Unavailable SUPPAN, VALERY A Primary Care Unavailable CARLIN KEENAN Attending Unavailable SUPPAN, VALERY A Primary Care Unavailable ASIF GONZALES Referring Unavailable SUPPAN, VALERY A Primary Care Unavailable KAYLA MACHADO Attending Unavailable SUPPAN, VALERY A Primary Care Unavailable RYAN ALONZO Referring Unavail able SUPPAN, VALERY A Primary Care Unavailable SUPPAN, VALERY A Primary Care Unavailable PARVEEN, ALVIN ARAUJO Primary Care Unavailable ASIF GONZALES Referring Unavailable SAINI, ALVIN ARAUJO Primary Care Unavailable SAINI, ALVIN ARAUJO Referring Unavailable ASIF GONZALES Attending Unavailable ALVIN SAINI Primary Care Unavailable RYAN ALONZO Attending Unavail able SUPPAN, VALERY A Primary Care Unavailable KAYLA MACHADO Attending Unavailable SUPPAN, VALERY A Primary Care Unavailable THIERNO SRIVASTAVA Attending Unavailable SUPPAN, VALERY A Primary Care Unavailable THIERNO SRIVASTAVA Referring Unavailable SUPPAN, VALERY A Primary Care Unavailable RYAN ALONZO Attending Unavail able SUPPAN, VALERY A Primary Care Unavailable SAINIALVIN ALANIZ Referring Unavailable ASIF GONZALES Attending Unavailable SUPPAN, VALERY A Primary Care Unavailable SUPPAN, VALERY A Attending Unavailable ALVIN SAINI Primary Care Unavailable RYAN ALONZO Referring Unavail able SAINIALVIN ALANIZ Primary Care Unavailable SUPPAN, VALERY A Primary Care Unavailable SUPPAN, VALERY A Attending Unavailable SUPPAN, VALERY A Primary Care Unavailable SUPPAN, VALERY A Referring Unavailable Suppan SLEEVE WHEEL MAKER, Valery Primary Care Provider [phone] Dr. Ana Hamilton MD Attending Provider Unavaila ble Brian MEZA, Dr. Rader Attending Provider Dr. Prasanth Torres MD Referring Provider Provider, Ed Physician Emergency Provider René kasper Allergies Allergy Classification Reported Allergen(s) Allergy Type Date of Onset Reaction(s) Facility Sulfonamides (antibiotic) (5 sources) Sulfonamides (Antibiotic) Drug Allergy 4 Vomiting [facility] Work Phone: (20 sources) Sulfonamides (Antibiotic); Translations: [SULFA (SULFONAMIDE ANTIBIOTICS)] Propensity to adverse reactions (disorder) 4 Vomiting [facility] Repository Medications Current Medications Medication Drug Class(es) Dates Sig (Normalized) Sig (Original) acetaminophen 500 mg oral capsule (20 sources) Start: 11-07-2024 Acetaminophen 650 mg suppository Active 650 mg RC Q4H as needed for fever or pain November 07, 2024 12:00am Start: 11-07-2024 take 2 capsules by out every eight hours as needed for pain Acetaminophen 500 mg capsule Active 1000 mg PO Q8H as needed for fever or pain November 07, 2024 12:00am Start: 10-14-2024 take 2 tablets by mo uth every eight hours as needed acetaminophen (TYLENOL) 500 mg tablet Take 2 tablets by mouth every 8 hours as needed for pain. 90 tablet 10/14/2024 Active take 2 tablets by mo uth every eight hours as needed acetaminophen 650 mg CR tablet Take 1,300 mg by mouth every 8 hours as needed. Suspended take 2 tablets by mo uth twice daily acetaminophen 650 mg CR tablet Take 1,300 mg by mouth two times a day. Uses ad needed Active Comment on above: Take 1,300 mg by unruly th twice daily. Take 1,300 mg by unruly two times a day. Uses ad needed aluminum hydroxide 40 mg/ml / magnesium hydroxide 40 mg/ml oral suspension (6 sources) Start: 11-08-19 take 1 mL by mouth every four hours as needed Aluminum-Magnesium Hydroxide (Mag-Al) 200-200 mg/5 mL suspension Active 30 mL PO Q4H as needed for dyspepsia November 07, 2024 12:00am aluminum hydroxide 40 mg/ml / magnesium hydroxide 40 mg/ml / simethicone 4 mg/ml oral suspension (17 sources) take 30 mL by mouth every four hours as needed aluminum-magnesium hydroxide-simethic one (MAALOX,MYLANTA,MA G-AL PLUS) 200-200-20 mg/5 mL suspension Take 30 mL by mouth every 4 hours as needed. Active amiodarone hydrochloride 200 mg oral tablet (20 sources) Antiarrhythmic Start: 11-08-19 End: 12-14-19 take 1 tablet by mouth once daily amiodarone (PACERONE) 200 mg tablet Take 1 tablet by mouth once daily. 15 tablet 12/13/2024 Active Start: 11-07-2024 End: 11-10-2024 take 1 tablet by mouth once daily Amiodarone 400 mg tablet Discontinued 400 mg PO DAILY November 07, 2024 12:00am November 10, 2024 11:18am UNTIL 11/12/24 Start: 10-14-2024 End: 12-13-2024 take 1 tablet by mouth twice daily amiodarone 400 mg tablet Take 1 tablet by mouth two times a day. 180 tablet 10/14/2024 12/13/2024 Discontinued ascorbic acid 500 mg oral capsule (20 sources) Vitamin C Start: 11-07-2024 take 1 capsule by mouth twice daily Ascorbic Acid (Vitamin C) 500 mg capsule Active 500 mg PO TWICE A DAY November 07, 2024 12:00am Start: 10-14-2024 End: 10-22-2024 take 1 tablet by mouth twice daily at mealtime ascorbic acid, vitamin C, (VITAMIN C) 500 mg tablet Take 1 tablet by mouth two times a day with meals for 15 doses. 15 tablet 10/14/2024 Active bisacodyl 10 mg rectal suppository (20 sources) Stimulant Laxative Start: 11-07-2024 Bisacodyl 10 mg suppository Active 10 mg RC DAILY as needed for constipation November 07, 2024 12:00am cefadroxil 500 mg oral capsule (7 sources) Cephalosporin Antibacterial Start: 02-01-2025 End: 02-08-2025 take 1 capsule by mouth twice daily cefADROxil (DURICEF) 500 mg capsule Take 1 capsule by mouth two times a day for 7 days. 14 capsule 02/01/2025 02/08/2025 Active Start: 10-14-2024 End: 10-28-2024 take 1 capsule by mouth every twelve hours cefADROxil (DURICEF) 500 mg capsule Take 1 capsule by mouth every 12 hours for 14 days. 28 capsule 10/14/2024 10/28/2024 Active dexamethasone 4 mg oral tablet (2 sources) Corticosteroid Start: 2024 End: 09-18-2024 take 5 tablets by mouth once daily at breakfast dexAMETHasone (DECADRON) 4 mg tablet Take 5 tablets by mouth daily with breakfast for 4 days. 20 tablet 2024 09/18/2024 Active docusate sodium 100 mg oral capsule (20 sources) Start: 09-05-2024 End: 02-07-2025 take 1 capsule by mouth once daily in the morning docusate sodium (COLACE) 100 mg capsule Take 1 capsule by mouth every morning. 90 capsule 1 02/07/2025 Active ezetimibe 10 mg oral tablet (20 sources) Dietary Cholesterol Absorption Inhibitor Start: 07-03-2023 End: 03-22-2024 take 1 tablet by mouth once daily ezetimibe (ZETIA) 10 mg tablet Indications: Mixed hyperlipidemia Take 1 tablet by mouth once daily. 90 tablet 3 03/22/2024 Active Start: 09-16-2021 End: 06-18-2022 take 1 tablet by mouth once daily ezetimibe (ZETIA) 10 mg tablet Take 1 tablet by mouth once daily. 90 tablet 3 06/18/2022 Active Comment on above: Take 1 tablet by unruly th once daily. ferrous sulfate 325 mg oral tablet (20 sources) Start: 11-07-2024 take 1 tablet by mouth once daily Ferrous Sulfate (Ferosul) 325 mg (65 mg iron) tablet Active 325 mg PO DAILY November 07, 2024 12:00am Start: 04-19-2024 End: 07-28-2025 take 1 tablet by mouth once daily ferrous sulfate 325 mg (65 mg iron) tablet Indications: Iron deficiency anemia due to chronic blood loss Take 1 tablet by mouth once daily. 90 tablet 3 07/28/2024 07/28/2025 Active Ferrous Sulfate (Ferrous Sulfate 325 Mg (65 Mg Iron) Tablet) 325 mg (65 mg iron) tablet (1 source) Start: 11-07-2024 Ferrous Sulfat e (Ferrous Sulfate 325 Mg (65 Mg Iron) Tablet) 325 mg (65 mg iron) tablet Active 325 mg PO DAILY November 07, 2024 12:00am furosemide 40 mg oral tablet (20 sources) Loop Diuretic Start: 11-10-2024 End: 12-13-2025 take 1 tablet by mouth once daily furosemide (LASIX) 40 mg tablet Take 1 tablet by mouth once daily. 90 tablet 3 12/13/2024 12/13/2025 Active Start: 11-07-2024 End: 11-10-2024 take 1 tablet by mouth once daily Furosemide 20 mg tablet Discontinued 20 mg PO DAILY November 07, 2024 12:00am November 10, 2024 11:19am gabapentin 400 mg oral capsule (20 sources) Anti-epileptic Agent Start: 04-19-2021 End: 07-22-2025 take 1 capsule by mouth twice daily gabapentin (NEURONTIN) 400 mg capsule Indications: Primary osteoarthritis of right hip , Spinal stenosis, lumbar region, without neurogenic claudication Take 1 capsule by mouth two times a day for 180 days. 180 capsule 1 01/23/2025 07/22/2025 Active Comment on above: Take 1 capsule by mouth twice daily for 180 days. Take 1 capsule by mo [facility] two times a day for 180 days. 24 hr isosorbide mononitrate 30 mg extended release oral tablet (20 sources) Nitrate Vasodilator Start: 08-23-2019 End: 02-07-2025 take 0.5 tablet by mouth once daily isosorbide mononitrate ER (IMDUR) 30 mg 24 hr tablet Indications: 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 pectoris Take 0.5 tablets by mouth once daily. 45 tablet 3 02/07/2025 Active Comment on above: Take 0.5 tablets by mouth once daily. Magnesium Hydroxide (20 sources) Start: 11-07-2024 take 1 mL by mouth once daily as needed for constipation Magnesium Hydroxide (Milk Of Magnesia) 400 mg/5 mL suspension Active 30 mL PO DAILY as needed for constipation November 07, 2024 12:00am magnesium hydrox vinny (MILK OF MAGNESIA ORAL) Take 30 mL by mouth as needed. Active modified 24 hr metFORMIN hydrochloride 500 mg extended release oral tablet (20 sources) Biguanide Start: 11-07-2024 take 1 tablet by mouth once daily Metformin 500 mg tablet extended release 24 hr Active 500 mg PO DAILY November 07, 2024 12:00am Start: 04-19-2024 End: 02-07-2026 take 1 tablet by mouth once daily at breakfast metFORMIN ER (GLUMETZA) 500 mg 24 hr tablet Indications: Controlled type 2 diabetes mellitus without complication, without long-term current use of insulin (HCC) Take 1 tablet by mouth daily with breakfast. 90 tablet 3 02/07/2025 02/07/2026 Active 24 hr metoprolol succinate 25 mg extended release oral tablet (20 sources) beta-Adrenergic Bryan Start: 12-16-2024 End: 12-16-2025 take 1 tablet by mouth once daily in the morning metoprolol succinate ER (TOPROL XL) 25 mg 24 hr tablet Indications: 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 pectoris Take 1 tablet by mouth every morning. 90 tablet 3 12/16/2024 12/16/2025 Active Start: 11-28-2024 take 2 tablets by mo uth once daily Metoprolol Succinate 50 mg Tablet Extended Release 24 Hr Active 25 mg PO DAILY November 28, 2024 3:57pm Start: 09-26-2023 End: 05-02-2025 take 1 tablet by mouth every hour metoprolol succinate ER (TOPROL XL) 50 mg 24 hr tablet Indications: 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 pectoris Take 1 tablet by mouth every afternoon. 90 tablet 3 05/02/2024 05/02/2025 Active Start: 09-26-2023 End: 11-28-2024 take 1 tablet by mouth once daily Metoprolol Succinate 50 mg Tablet Extended Release 24 Hr Discontinued 50 mg PO DAILY September 26, 2023 1:00am November 28, 2024 3:58pm Start: 08-23-2019 End: 11-07-2024 take 1 tablet by mouth once daily Metoprolol Succinate 25 MG tablet extended release 24 hr Discontinued 25 mg PO DAILY August 23, 2019 1:00am November 07, 2024 4:15pm Comment on above: Take 1 tablet by unruly th once daily. Take 1 tablet by unruly th every afternoon. Take 0.5 tablets by mouth every afternoon. multivitamin tablet (17 sources) take 1 tablet by mouth once daily multivitamin tablet Take 1 tablet by mouth once daily. Active mupirocin 0.02 mg/mg topical ointment (8 sources) RNA Synthetase Inhibitor Antibacterial Start: End: 01-23-2 025 mupirocin (BACTROBAN) 2 % ointment Apply 0.5 inch with cotton swab (Q-tip) to each nostril in the morning and evening for 5 days prior to and including day of surgery. 22 g 08/30/2024 09/15/2024 Active nitroglycerin 0.4 mg sublingual tablet (20 sources) Nitrate Vasodilator Start: End: nitroglycerin sublingual (NITROQUICK) 0.4 mg SL tablet Indications: 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 pectoris Dissolve 1 tablet under the tongue as directed. DISSOLVE ONE(1) TABLET UNDER THE TOUNGUE NEEDED FOR CHEST PAIN,EVERY 5 MIN X3 25 tablet 10/08/2023 Active Comment on above: Dissolve 1 tablet un bruce the tongue as directed. DISSOLVE ONE(1) TABLET UNDER THE TOUNGUE NEEDED FOR CHEST PAIN,EVERY 5 MIN X3 ondansetron 4 mg disintegrating oral tablet (20 sources) Serotonin-3 Receptor Antagonist Start: take 1 tablet by mouth every six hours as needed for nausea and vomiting Ondansetron 4 mg tablet,disintegrating Active 4 mg PO EVERY 6 HOURS as needed for nausea and vomiting November 07, 2024 12:00am take 1 tablet by unruly th every six hours as needed ondansetron (ZOFRAN) 4 mg tablet Take 4 mg by mouth every 6 hours as needed for nausea/vomiting. Active ondansetron (ZOF RAN) 4 mg tablet Take by mouth every 8 hours as needed for nausea/vomiting. Active oxyCODONE hydrochloride 5 mg oral tablet (4 sources) Opioid Agonist Start: 10-14-2024 End: 10-21-2024 take 5-10 mg by mouth every six hours as needed oxyCODONE IR (ROXICODONE) 5 mg immediate release tablet Take 1-2 tablets by mouth every 6 hours as needed for pain for up to 7 days. 10/14/2024 10/21/2024 Active pantoprazole 20 mg delayed release oral tablet (20 sources) Proton Pump Inhibitor Start: 11-10-2024 take 1 tablet by mouth twice daily Pantoprazole (Protonix) 40 mg tablet,delayed release (DR/EC) Active 40 mg PO TWICE A DAY 60 30 November 10, 2024 12:00am Start: 08-11-2023 End: 01-23-2025 take 2 tablets by mouth once daily pantoprazole DR (PROTONIX) 20 mg tablet Indications: Iron deficiency anemia, unspecified iron deficiency anemia type , Dyspepsia , Dysphagia, unspecified type Take 2 tablets by mouth once daily. 180 tablet 1 01/23/2025 Active Start: 07-22-2021 End: 02-23-2023 take 2 tablets by mouth once daily pantoprazole DR (PROTONIX) 20 mg tablet Indications: Iron deficiency anemia, unspecified iron deficiency anemia type , Dyspepsia , Dysphagia, unspecified type Take 2 tablets by mouth once daily. 180 tablet 1 02/23/2023 Active Start: 06-25-2021 End: 11-10-2024 take 1 tablet by mouth twice daily Pantoprazole 20 mg tablet,delayed release (DR/EC) Discontinued 20 mg PO TWICE A DAY June 25, 2021 12:00am November 10, 2024 11:20am Comment on above: Take 2 tablets by [facility] once daily. polyethylene glycol 3350 39562 mg powder for oral solution (20 sources) Osmotic Laxative Start: 10-14-2024 polyethylene glycol 3350 17 gram packet Take 1 Packet by mouth once daily as needed for constipation. Dissolve dose in 4 - 8 ounces of liquid and take as directed. 10/14/2024 Active predniSONE 10 mg oral tablet (3 sources) Start: 01-07-2024 End: 01-19-2024 predniSONE (DELTASONE) 10 mg tablet Indications: Arthritis of right hip Take 4 tabs daily x 3 days, then 3 tabs x 3 days, 2 tabs x 3 days, then 1 tab x3 days with food. 30 tablet 0 01/07/2024 01/19/2024 Active Start: 09-13-2021 End: 09-25-2021 predniSONE (DELTASONE) 10 mg tablet Take 6 tabs for 3 days, then 4 tabs for 3 days, then 2 tabs for 3 days then 1 tab for 3 days with food. 39 tablet 09/13/2021 09/25/2021 simvastatin 20 mg oral tablet (20 sources) HMG-CoA Reductase Inhibitor Start: 11-25-2024 take 1 tablet by mouth at bedtime Simvastatin 20 mg tablet Active 20 mg PO AT BEDTIME November 25, 2024 12:00am Start: 06-21-2021 End: 11-25-2024 take 1 tablet by mouth once daily Simvastatin 40 mg tablet Discontinued 40 mg PO DAILY June 25, 2021 12:00am November 25, 2024 5:32pm Comment on above: Take 1 tablet by unruly th daily at bedtime. sodium phosphate, dibasic 59.3 mg/ml / sodium phosphate, monobasic 161 mg/ml enema (6 sources) Start: Sodium Phosphates (Fleet Enema) 19-7 gram/118 mL enema Active 118 mL RC DAILY as needed for constipation November 07, 2024 12:00am sodium phosphate,mono-dibasic (FLEET ENEMA RECTAL) (17 sources) sodium phosphate,mono-dibasi c (FLEET ENEMA RECTAL) 1 Enema by RECTAL route as needed. Active tamsulosin hydrochloride 0.4 mg oral capsule (20 sources) alpha-Adrenergic Bryan Start: take 1 capsule by mouth at bedtime Tamsulosin 0.4 mg capsule Active 0.4 mg PO AT BEDTIME November 07, 2024 12:00am Start: 01-07-2024 End: 01-23-2026 take 1 capsule by mouth once daily at bedtime tamsulosin (FLOMAX) 0.4 mg Indications: BPH with obstruction/lower urinary tract symptoms Take 1 capsule by mouth daily at bedtime. 90 capsule 3 01/23/2025 01/23/2026 Active traZODone hydrochloride 150 mg oral tablet (20 sources) Serotonin Reuptake Inhibitor Start: 11-25-2024 Trazodone 150 mg tablet Active 75 mg PO AT BEDTIME November 25, 2024 12:00am Start: 06-21-2021 End: 11-25-2024 take 1 tablet by mouth once daily at bedtime traZODone (DESYREL) 50 mg tablet Indications: Primary insomnia Take 1 tablet by mouth daily at bedtime. 90 tablet 3 03/22/2024 Active take 0.5 tablet by m outh once daily at bedtime traZODone (DESYREL) 150 mg tablet Take 1/2 tablet by mouth once daily at bedtime. Active Comment on above: Take 1 tablet by unruly th daily at bedtime. vitamin B complex/minerals (STRESS B PLUS ZINC ORAL) (17 sources) take 1 tablet by mouth once daily vitamin B complex/minerals (STRESS B PLUS ZINC ORAL) Take 1 tablet by mouth once daily. Active Completed/Discontinued Medications Medication Drug Class(es) Dates Sig (Normalized) Sig (Original) amoxicillin 875 mg / clavulanate 125 mg oral tablet (9 sources) Penicillin-class Antibacterial Start: 03-21-2024 End: 11-07-2024 Amoxicillin-Pot Clavulanate 875-125 mg tablet Discontinued 1 {tbl} PO TWICE A DAY 14 March 21, 2024 12:00am November 07, 2024 3:57pm apixaban 2.5 mg oral tablet (20 sources) Factor Xa Inhibitor Start: 10-14-2024 End: 10-20-2024 take 1 tablet by mouth twice daily apixaban (ELIQUIS) 2.5 mg tab(s) Take 1 tablet by mouth two times a day for 6 days. 12 tablet 10/14/2024 10/20/2024 Start: 09-26-2023 End: 08-27-2024 take 1 tablet by mouth every twelve hours ELIQUIS 5 mg tab(s) Indications: Paroxysmal atrial fibrillation (HCC) Take 1 tablet by mouth every 12 hours. 60 tablet 07/28/2024 08/27/2024 Start: 09-26-2023 End: 07-28-2025 take 1 tablet by mouth twice daily apixaban (ELIQUIS) 5 mg tab(s) Indications: Paroxysmal atrial fibrillation (HCC) Take 1 tablet by mouth two times a day. 180 tablet 3 07/28/2024 07/28/2025 Active Comment on above: Take 1 tablet by unruly th every 12 hours. clopidogrel 75 mg oral tablet (20 sources) P2Y12 Platelet Inhibitor Start: 2018 End: 2024 take 1 tablet by mouth once daily Clopidogrel 75 MG tablet Discontinued 75 mg PO DAILY August 23, 2019 1:00am November 10, 2024 11:19am Comment on above: Take 1 tablet by unruly th once daily. cyclobenzaprine hydrochloride 5 mg oral tablet (20 sources) Muscle Relaxant Start: 2020 End: 2024 take 1 tablet by mouth at bedtime Cyclobenzaprine 5 mg tablet Discontinued 5 mg PO AT BEDTIME June 25, 2021 12:00am November 07, 2024 4:15pm Comment on above: Take 1 tablet by unruly th at bedtime as needed for muscle spasm. Take 1 tablet by unruly th two times a day as needed. fluticasone propionate 0.05 mg/actuat metered dose nasal spray (20 sources) Corticosteroid Start: 2019 End: 2022 take 2 spray(s) by mouth once daily fluticasone (FLONASE) 50 mcg/actuation nasal spray Use 2 Sprays in each nostril once daily. Rinse mouth after use. 3 Bottle 3 08/23/2020 02/06/2022 Discontinued Comment on above: Use 2 Sprays in each nostril once daily. Rinse mouth after use. glucagon (rdna) 1 mg injection (6 sources) Antihypoglycemic Agent Start: 2024 End: 2024 Glucagon (Glucagon Emergency Kit (Human)) 1 mg recon soln Discontinued 1 mg IM Q20M as needed for hypoglycemia November 07, 2024 12:00am November 10, 2024 11:19am until target blood sugar attained guaiFENesin 20 mg/ml oral solution (20 sources) Start: 2024 End: 2024 take 200 mg by mouth every four hours as needed for congestion Guaifenesin (Adult Tussin Chest Congestion) 100 mg/5 mL liquid Discontinued 200 mg PO Q4H as needed for congestion November 07, 2024 12:00am November 25, 2024 5:34pm take 10 mL by mouth every four hours as needed GUAIFENESIN ORAL Take 10 mL by mouth he ry 4 hours as needed. Active hydrOXYzine hydrochloride 25 mg oral tablet (20 sources) Antihistamine Start: 11-07-2024 End: 11-25-2024 take 1 tablet by mouth three times daily as needed for anxiety Hydroxyzine Hcl 25 mg tablet Discontinued 25 mg PO THREE TIMES A DAY as needed for anxiety November 07, 2024 12:00am November 25, 2024 5:34pm take 1 capsule by mo [facility] every eight hours as needed hydrOXYzine pamoate (VISTARIL) 25 mg capsule Take 25 mg by mouth three times a day as needed. Active potassium chloride 20 meq extended release oral tablet (19 sources) Start: 11-25-2024 End: 11-28-2024 take 1 tablet by mouth twice daily Potassium Chloride (K-Tab) 20 mEq tablet extended release Discontinued 20 meq PO TWICE A DAY November 25, 2024 12:00am November 28, 2024 3:56pm take 1 tablet by mouth twice caitlin ly potassium chloride ER (KLOR-CON) 20 mEq tablet Take 20 mEq by mouth two times a day. Active Problems Active Problems Problem Classification Problem Date Documented Date Episodic/Chronic Acute and unspecified renal failure (1 source) Acute kidney failure, unspecified; Translations: [Acute kidney failure, unspecified] Onset: 5 Episodic Acute cerebrovascular disease (1 source) Nontraumatic intracerebral hemorrhage, unspecified; Translations: [Nontraumatic intracerebral hemorrhage, unspecified] Onset: 5 Chronic Cardiac dysrhythmias (20 sources) Atrial fibrillation with rapid ventricular response; Translations: [Unspecified atrial fibrillation] Onset: 4 Resolved: 5 09-24-2023 Chronic Chronic kidney disease (20 sources) Chronic kidney disease stage 3A ; Translations: [Stage 3a chronic kidney disease] Onset: 0 10-22-2021 Chronic Chronic kidney disease (1 source) Chronic kidney disease; Translations: [Hypertensive kidney disease with stage 3a chronic kidney disease (HCC)] Onset: 3 Chronic obstructive pulmonary disease and bronchiectasis (1 source) Chronic obstructive pulmonary disease, unspecified; Translations: [Chronic obstructive pulmonary disease, unspecified] Onset: 5 Chronic Chronic ulcer of skin (20 sources) Pressure ulcer of sacral region, stage 1; Translations: [Pressure ulcer, lower back] Onset: 5 10-10-2024 Chronic Coagulation and hemorrhagic disorders (20 sources) Platelet count below reference range; Translations: [Thrombocytopenia, unspecified] Onset: 8 Resolved: 3 06-02-2008 Chronic Conditions associated with dizziness or vertigo (11 sources) Dizziness; Translations: [Dizziness and giddiness] Episodic Conduction disorders (20 sources) Right bundle branch block; Translations: [Unspecified right bundle-branch block] Onset: 5 08-30-2024 Chronic Congestive heart failure; nonhypertensive (11 sources) Heart failure with normal ejection fraction; Translations: [Acute diastolic (congestive) heart failure] Onset: 5 11-07-2024 Chronic Coronary atherosclerosis and other heart disease (20 sources) Coronary atherosclerosis; Translations: [Atherosclerotic heart disease of [place] coronary artery without angina pectoris] Onset: 5 01-30-2020 Chronic Coronary atherosclerosis and other heart disease (2 sources) Past history of procedure; Translations: [Coronary angioplasty status] Episodic Deficiency and other anemia (3 sources) Iron deficiency anemia due to blood loss; Translations: [Iron deficiency anemia secondary to blood loss (chronic)] 04-19-2024 Chronic Deficiency and other anemia (2 sources) Hemoglobinopathy; Translations: [Other hemoglobinopathies] 05-03-2024 Chronic Deficiency and other anemia (6 sources) Pancytopenia; Translations: [Other pancytopenia] 04-18-2024 Chronic Deficiency and other anemia (1 source) Other hemoglobinopathies; Translations: [Other hemoglobinopathies (HCC)] Onset: Chronic Deficiency and other anemia (12 sources) Chronic anemia; Translations: [Anemia, unspecified] 11-07-2024 Episodic Diabetes mellitus without complication (2 sources) Type 2 diabetes mellitus without complication; Translations: [Type 2 diabetes mellitus without complications] 04-19-2024 Chronic Disorders of lipid metabolism (20 sources) Mixed hyperlipidemia; Translations: [Mixed hyperlipidemia] Onset: 5 04-14-2005 Chronic Esophageal disorders (20 sources) Gastroesophageal reflux disease; Translations: [Gastro-esophageal reflux disease without esophagitis] Onset: 6 11-30-2020 Chronic Essential hypertension (20 sources) Benign essential hypertension; Translations: [Essential (primary) hypertension] Onset: 5 04-14-2005 Chronic Gastrointestinal hemorrhage (14 sources) Gastrointestinal hemorrhage; Translations: [Gastrointestinal hemorrhage, unspecified] Onset: 5 11-07-2024 Episodic Genitourinary symptoms and ill-defined conditions (3 sources) Increased frequency of urination; Translations: [Frequency of micturition] 10-12-2023 Episodic Hyperplasia of prostate (7 sources) Benign prostatic hypertrophy with outflow obstruction; Translations: [Benign prostatic hyperplasia with lower urinary tract symptoms] Onset: 4 01-07-2024 Chronic Hypertension with complications and secondary hypertension (20 sources) Hypertensive renal disease; Translations: [Hypertensive chronic kidney disease with stage 1 through stage 4 chronic kidney disease, or unspecified chronic kidney disease] Onset: 3 09-24-2022 Chronic Malaise and fatigue (3 sources) Tired; Translations: [Other fatigue] Onset: 5 Episodic Miscellaneous mental health disorders (10 sources) Primary insomnia; Translations: [Primary insomnia] Onset: 6 Chronic Mood disorders (6 sources) Depressive disorder; Translations: [Depression with suicidal ideation] 04-18-2024 Chronic Mood disorders (1 source) Mood disorders; Translations: [Depression, unspecified] Onset: Nonspecific chest pain (6 sources) Chest pain; Translations: [Chest pain, unspecified] Onset: 5 11-25-2024 Episodic Occlusion or stenosis of precerebral arteries (20 sources) Bilateral stenosis of carotid arteries; Translations: [Occlusion and stenosis of bilateral carotid arteries] Onset: 3 09-26-2022 Chronic Open wounds of extremities (13 sources) Dog bite of forearm; Translations: [Open bite of right forearm, initial encounter] Onset: 4 03-29-2024 Episodic Other aftercare (1 source) Post-discharge follow-up; Translations: [Encounter for follow-up examination after completed treatment for conditions other than malignant neoplasm] 10-11-2023 Episodic Other aftercare (12 sources) Drug therapy finding; Translations: [supervisor intermediates (current) use of anticoagulants] 11-07-2024 Episodic Other aftercare (6 sources) Long-term current use of anticoagulant; Translations: [correction (current) use of anticoagulants] 03-29-2024 Episodic Other connective tissue disease (8 sources) History of repair of hip joint; Translations: [Presence of right artificial hip joint] 09-20-2024 Chronic Other connective tissue disease (20 sources) History of total hip arthroplasty; Translations: [Presence of right artificial hip joint] Onset: 5 10-10-2024 Chronic Other connective tissue disease (2 sources) Presence of right artificial hip joint; Translations: [Status post right hip replacement] Onset: 5 Chronic Other connective tissue disease (1 source) Recurrent falls ; Translations: [Repeated falls] 08-02-2024 Episodic Other connective tissue disease (6 sources) Swelling of hand; Translations: [Other specified soft tissue disorders] 04-02-2024 Episodic Other gastrointestinal disorders (9 sources) Dysphagia; Translations: [Dysphagia, unspecified] Episodic Other gastrointestinal disorders (2 sources) Diarrhea; Translations: [Diarrhea, unspecified] Episodic Other liver diseases (1 source) Raised cardiac enzyme or marker; Translations: [Abnormal levels of other serum enzymes] 10-08-2023 Episodic Other lower respiratory disease (1 source) Cough; Translations: [Cough] 09-13-2021 Episodic Other nervous system disorders (9 sources) Unable to walk; Translations: [Difficulty in walking, not elsewhere classified] 07-04-2021 Chronic Other nervous system disorders (1 source) Other chronic pain; Translations: [Chronic right hip pain] Onset: 0 Chronic Other nervous system disorders (1 source) Abnormal gait; Translations: [Unsteadiness on feet] Episodic Other nutritional; endocrine; and metabolic disorders (20 sources) Hypercalcemia; Translations: [Hypercalcemia] Onset: 7 09-23-2018 Chronic Other nutritional; endocrine; and metabolic disorders (2 sources) Disorder of lipid metabolism; Translations: [Disorder of lipoprotein metabolism, unspecified] Chronic Other upper respiratory disease (20 sources) Allergic rhinitis; Translations: [Allergic rhinitis, unspecified] Onset: 7 07-06-2007 Chronic Residual codes; unclassified (3 sources) Edema of lower extremity; Translations: [Localized edema] 01-30-2025 Episodic Residual codes; unclassified (1 source) Localized edema; Translations: [Edema, lower extremity] Onset: 5 Episodic Spondylosis; intervertebral disc disorders; other back problems (20 sources) Lumbosacral spondylosis without myelopathy; Translations: [Spondylosis without myelopathy or radiculopathy, lumbosacral region] Onset: 4 07-22-2004 Chronic Transient cerebral ischemia (20 sources) Transient cerebral ischemia; Translations: [Transient cerebral ischemic attack, unspecified] Onset: 0 09-01-2019 Chronic Unclassified (1 source) Unknown / UNK(Unknown) Onset: 8 Viral infection (1 source) Herpes zoster without complication; Translations: [Zoster without complications] Episodic Past or Other Problems Problem Classification Problem Date Documented Da te Episodic/Chronic Abdominal pain (20 sources) Right inguinal pain; Translations: [Right lower quadrant pain] Onset: 09-02-2021 09-02-2021 Episodic Administrative/social admission (20 sources) Patient encounter status; Translations: [Persons encountering health services in other specified circumstances] Onset: 06-26-2021 Resolved: 08-30-2021 08-30-2021 Episodic Deficiency and other anemia (20 sources) Anemia; Translations: [Anemia, unspecified] Onset: 05-26-2008 Resolved: 09-26-2022 05-26-2008 Episodic Deficiency and other anemia (20 sources) Iron deficiency anemia; Translations: [Iron deficiency anemia, unspecified] Onset: 10-26-2020 10-26-2020 Episodic Deficiency and other anemia (2 sources) Anemia, unspecified; Translations: [Anemia, unspecified] Onset: 05-06-2024 Episodic Deficiency and other anemia (1 source) Other iron deficiency anemias; Translations: [Other iron deficiency anemia] Onset: 10-26-2020 Episodic Deficiency and other anemia (1 source) Iron deficiency anemia, unspecified; Translations: [Iron deficiency anemia, unspecified iron deficiency anemia type] Onset: 10-26-2020 Episodic Diabetes mellitus without complication (20 sources) Impaired fasting glycemia; Translations: [Impaired fasting glucose] Onset: 04-05-2007 04-05-2007 Episodic E Codes: Natural/environment (2 sources) Dog bite - wound; Translations: [Bitten by dog, sequela] Onset: 03-21-2024 03-21-2024 Episodic Osteoarthritis (20 sources) Osteoarthritis of right hip joint; Translations: [Unilateral primary osteoarthritis, right hip] Onset: 02-26-2024 Resolved: 10-14-2024 Chronic Other connective tissue disease (20 sources) Polymyalgia rheumatica; Translations: [Polymyalgia rheumatica] Resolved: 09-01-2019 09-01-2019 Chronic Other connective tissue disease (20 sources) Pain of right calf; Translations: [Pain in right lower leg] Onset: 11-01-2019 11-01-2019 Episodic Other connective tissue disease (20 sources) Neurological symptom; Translations: [Unspecified symptoms and signs involving the nervous system] Onset: 07-22-2021 07-22-2021 Episodic Other connective tissue disease (1 source) Other specified soft tissue disorders; Translations: [Other specified soft tissue disorders] Onset: 04-14-2024 Episodic Other connective tissue disease (1 source) Repeated falls; Translations: [Falls] Onset: 08-02-2024 Episodic Other diseases of kidney and ureters (1 source) Other obstructive and reflux uropathy; Translations: [BPH with obstruction/lower urinary tract symptoms] Onset: 03-21-2024 Episodic Other gastrointestinal disorders (1 source) Dysphagia, unspecified; Translations: [Dysphagia, unspecified type] Onset: 03-21-2024 Episodic Other non-traumatic joint disorders (20 sources) Hip pain; Translations: [Pain in right hip] Onset: 11-01-2019 Resolved: 09-26-2022 11-01-2019 Episodic Other non-traumatic joint disorders (20 sources) Pain in right hip joint; Translations: [Pain in right hip] Onset: 02-03-2022 Resolved: 09-26-2022 Episodic Other non-traumatic joint disorders (2 sources) Pain in right hip; Translations: [Chronic right hip pain] Onset: 11-01-2019 Episodic Other screening for suspected conditions (not mental disorders or infectious disease) (20 sources) Serum creatinine raised; Translations: [Other specified abnormal findings of blood chemistry] Onset: 07-13-2014 Resolved: 07-13-2014 10-30-2016 Episodic Residual codes; unclassified (20 sources) Insomnia; Translations: [Insomnia, unspecified] Onset: 05-29-2006 05-29-2006 Episodic Residual codes; unclassified (20 sources) At risk for impaired skin integrity ; Translations: [Other specified personal risk factors, not elsewhere classified] Onset: 10-10-2024 10-10-2024 Episodic Residual codes; unclassified (20 sources) Postprocedural state finding; Translations: [Other specified postprocedural states] Onset: 10-17-2024 10-17-2024 Episodic Screening and history of mental health and substance abuse codes (2 sources) Encounter for screening for depression; Translations: [Encounter for screening examination for other mental health and behavioral disorders] Onset: 08-02-2024 Episodic Spondylosis; intervertebral disc disorders; other back problems (20 sources) Spinal stenosis of lumbar region; Translations: [Spinal stenosis, lumbar region without neurogenic claudication] Onset: 07-22-2004 07-22-2004 Episodic Suicide and intentional self-inflicted injury (2 sources) Suicide attempt ; Translations: [Suicide attempt, initial encounter] Onset: 03-21-2024 03-21-2024 Episodic Thyroid disorders (20 sources) Acquired hypothyroidism; Translations: [Other specified hypothyroidism] Onset: 04-14-2005 Resolved: 05-30-2014 05-30-2014 Chronic Unclassified (1 source) Follow Up Onset: 09-16-2017 Unclassified (3 sources) History of repair of hip joint 10-06-2024 Results Test Name Value Interpretation Reference Range Facility [facility] n 02-13-2025 [facility] Normal [facility] CNPNon 02-01-2025 CNPN Normal [facility] CNPNon 01-30-2025 CNPN Normal [facility] CNOVon 01-25-2025 CNOV Normal [facility] CBC W Auto Differential pane l (Bld)on 01-23-2025 Basophils (Bld) [#/Vol] 0.04 10*3/uL Normal <0.11 [facility] Comment on above: Order Comment: Speci men Type: BLOOD SPECIMENOrdering Facility: [facility] Address: [address] [place] [address] Performed By: #### 5 7021-8 ####[facility] [id number] [place] [address] [place] Basophils/100 WBC (Bld) 0.6 % Normal [facility] Comment on above: Order Comment: Speci men Type: BLOOD SPECIMENOrdering Facility: [facility] Address: [address] [place] [address] Performed By: #### 5 7021-8 ####[facility] [id number] [place] [address] [place] Differential cell count method Nom (Bld) Auto Normal [facility] Comment on above: Order Comment: Speci men Type: BLOOD SPECIMENOrdering Facility: [facility] Address: [address] [place] [address] Performed By: #### 5 7021-8 ####[facility] LAYLAELVISRojas [id number] [place] [address] [place] Eosinophils (Bld) [#/Vol] 0.10 10*3/uL Normal <0.46 [facility] Comment on above: Order Comment: Speci men Type: BLOOD SPECIMENOrdering Facility: [facility] Address: [address] [place] [address] Performed By: #### 5 7021-8 ####[facility] [id number] [place] [address] [place] Eosinophils/100 WBC (Bld) 1.4 % Normal [facility] Comment on above: Order Comment: Speci men Type: BLOOD SPECIMENOrdering Facility: [facility] Address: [address] [place] [address] Performed By: #### 5 7021-8 ####[facility]ITALNCLIRojas [id number] [place] [address] [place] Erythrocyte distribution width (RBC) [Ratio] 15.5 % High 11.5-15.0 [facility] Comment on above: Order Comment: Speci men Type: BLOOD SPECIMENOrdering Facility: [facility] Address: [address] [place] [address] Performed By: #### 5 7021-8 ####[facility]ENTERLIA [id number] [place] [address] [place] Hematocrit (Bld) [Volume fraction] 34.2 % Low 39.0-51.0 [facility] Comment on above: Order Comment: Speci men Type: BLOOD SPECIMENOrdering Facility: [facility] Address: [address] [place] [address] Performed By: #### 5 7021-8 ####[facility]ITALNCLIA [id number] [place] [address] [place] Hemoglobin (Bld) [Mass/Vol] 10.4 g/dL Low 13.0-17.0 [facility] Comment on above: Order Comment: Speci men Type: BLOOD SPECIMENOrdering Facility: [facility] Address: [address] [place] [address] Performed By: #### 5 7021-8 ####[facility] [id number] [place] [address] [place] Immature granulocytes (Bld) [#/Vol] 0.04 10*3/uL Normal <0.10 [facility] Comment on above: Order Comment: Speci men Type: BLOOD SPECIMENOrdering Facility: [facility] Address: [address] [place] [address] Performed By: #### 5 7021-8 ####[facility] [id number] [place] [address] [place] Immature granulocytes/100 WBC (Bld) 0.6 % Normal [facility] Comment on above: Order Comment: Speci men Type: BLOOD SPECIMENOrdering Facility: [facility] Address: [address] [place], [place] [id number] Performed By: #### 5 7021-8 ####[facility] [id number] [place] [address] [place] Lymphocytes (Bld) [#/Vol] 1.95 10*3/uL Normal 1.00-4.00 [facility] Comment on above: Order Comment: Speci men Type: BLOOD SPECIMENOrdering Facility: [facility] Address: [address] [place], [place] [id number] Performed By: #### 5 7021-8 ####[facility]ENTERLI [id number] [place] [address] [place] Lymphocytes/100 WBC (Bld) 27.2 % Normal [facility] Comment on above: Order Comment: Speci men Type: BLOOD SPECIMENOrdering Facility: [facility] Address: [address] [place] [address] Performed By: #### 5 7021-8 ####[facility] [id number] [place] [address] [place] MCH (RBC) [Entitic mass] 27.7 pg Normal 26.0-34.0 [facility] Comment on above: Order Comment: Speci men Type: BLOOD SPECIMENOrdering Facility: [facility] Address: [address] [place] [address] Performed By: #### 5 7021-8 ####[facility]ITALGRACIEJORDAN [facility] [id number] [place] [address] [place] MCHC (RBC) [Mass/Vol] 30.4 g/dL Low 30.5-36.0 [facility] Comment on above: Order Comment: Speci men Type: BLOOD SPECIMENOrdering Facility: [facility] Address: [address] [place] [address] Performed By: #### 5 7021-8 ####[facility]ITALNCJORD[facility] [id number] [place] [address] [place] MCV (RBC) [Entitic vol] 91.2 fL Normal 80.0-100.0 [facility] Comment on above: Order Comment: Speci men Type: BLOOD SPECIMENOrdering Facility: [facility] Address: [address] [place] [address] Performed By: #### 5 7021-8 ####[facility]ITALNCLIA [id number] [place] [address] [place] Monocytes (Bld) [#/Vol] 0.35 10*3/uL Normal <0.87 [facility] Comment on above: Order Comment: Speci men Type: BLOOD SPECIMENOrdering Facility: [facility] Address: [address] [place] [address] Performed By: #### 5 7021-8 ####[facility] DANAWNCLIA [id number] [place] [address] [place] Monocytes/100 WBC (Bld) 4.9 % Normal [facility] Comment on above: Order Comment: Speci men Type: BLOOD SPECIMENOrdering Facility: [facility] Address: [address] [place] [address] Performed By: #### 5 7021-8 ####[facility]OSPITALNCA [id number] [place] [address] [place] Neutrophils (Bld) [#/Vol] 4.70 10*3/uL Normal 1.45-7.50 [facility] Comment on above: Order Comment: Speci men Type: BLOOD SPECIMENOrdering Facility: [facility] Address: [address] [place] [address] Performed By: #### 5 7021-8 ####[facility] [id number] [place] [address] [place] Neutrophils/100 WBC (Bld) 65.3 % Normal [facility] Comment on above: Order Comment: Speci men Type: BLOOD SPECIMENOrdering Facility: [facility] Address: [address] [place] [id number] Performed By: #### 5 7021-8 ####[facility] CENTERLIA [id number] [place] [address] [place] Nucleated RBC (Bld) [#/Vol] 10*3/uL Normal <0.01 [facility] Comment on above: Order Comment: Speci men Type: BLOOD SPECIMENOrdering Facility: [facility] Address: [address] [place] [address] Performed By: #### 5 7021-8 ####[facility] DANAEstefaniaNCLIA [id number] [place] [address] [place] Nucleated RBC/100 WBC (Bld) [Ratio] 0.0 /100 WBC Normal [facility] Comment on above: Order Comment: Speci men Type: BLOOD SPECIMENOrdering Facility: [facility] Address: [address] [place] [address] Performed By: #### 5 7021-8 ####[facility]ITALDIGNAA [id number] [place] [address] [place] Platelet mean volume (Bld) [Entitic vol] 14.6 fL High 9.0-12.7 [facility] Comment on above: Order Comment: Speci men Type: BLOOD SPECIMENOrdering Facility: [facility] Address: [address] [place] [address] Performed By: #### 5 7021-8 ####[facility] [id number] [place] [address] [place] Platelets (Bld) [#/Vol] 103 10*3/uL Low 150-400 [facility] Comment on above: Order Comment: Speci men Type: BLOOD SPECIMENOrdering Facility: [facility] Address: [address] [place] [address] Performed By: #### 5 7021-8 ####[facility] CENTERLIA [id number] [place] [address] [place] RBC (Bld) [#/Vol] 3.75 10*6/uL Low 4.20-6.00 [facility] Comment on above: Order Comment: Speci men Type: BLOOD SPECIMENOrdering Facility: [facility] Address: [address] [place] [address] Performed By: #### 5 7021-8 ####[facility] [id number] [place] [address] [place] WBC (Bld) [#/Vol] 7.18 10*3/uL Normal 3.70-11.00 [facility] Comment on above: Order Comment: Speci men Type: BLOOD SPECIMENOrdering Facility: [facility] Address: [address] [place] [address] Performed By: #### 5 7021-8 ####[facility] DINORAH [place] [facility] HOSPITALLIA [id number] [place] [address] [place] CNOVon 01-23-2025 CNOV Normal [facility] Comprehensive metabolic 2000 panelOrdered By: Ree Batista on 01-23-2025 Albumin [Mass/Vol] 4.3 g/dL 3.9 - 4.9 g/dL [facility] ALP [Catalytic activity/Vol] 92 U/L 38 - 113 U/L [facility] ALT [Catalytic activity/Vol] 6 U/L Low 10 - 54 U/L [facility] Anion gap [Moles/Vol] 14 mmol/L 8 - 15 mmol/L [facility] AST [Catalytic activity/Vol] 11 U/L Low 14 - 40 U/L [facility] Bilirubin [Mass/Vol] 0.3 mg/dL 0.2 - 1 .3 mg/dL [facility] Calcium [Mass/Vol] 9.7 mg/dL 8.5 - 10. 2 mg/dL [facility] Chloride [Moles/Vol] 99 mmol/L 98 - 10 7 mmol/L [facility] CO2 [Moles/Vol] 24 mmol/L 22 - 30 mmol/L [facility] Creatinine [Mass/Vol] 1.73 mg/dL High 0.73 - 1.22 mg/dL [facility] GFR/1.73 sq M.predicted among non-blacks MDRD (S/P/Bld) [Vol rate/Area] 38 mL/min/{1.73_m2} Low - PINF [facility] Comment on above: Estimated Glomerular Filtration Rate (eGFR) is calculated using the 2020 CKD-EPI creatinine equation. This equation utilizes serum creatinine, sex, and age as parameters. The creatinine assay has traceable calibration to isotope dilution-mass spectrometry. Refer to KDIGO guidelines for clinical interpretation. In patients with unstable renal function, e.g. those with acute kidney injury, the eGFR may not accurately reflect actual GFR. Glucose [Mass/Vol] 111 mg/dL High 74 - 99 mg/dL [facility] Comment on above: The [place] Diab[employer] s Association (ADA) provides guidance for cutoff values for fasting glucose and random glucose. The ADA defines fasting as no caloric intake for at least 8 hours. Fasting plasma glucose results between 100 to 125 mg/dL indicate increased risk for diabetes (prediabetes). Fasting plasma glucose results greater than or equal to 126 mg/dL meet the criteria for diagnosis of diabetes. In the absence of unequivocal hyperglycemia, results should be confirmed by repeat testing. In a patient with classic symptoms of hyperglycemia or hyperglycemic crisis, random plasma glucose results greater than or equal to 200 mg/dL meet the criteria for diagnosis of diabetes. Reference: Standards of Medical Care in Diabetes 2016, [place] Diabetes Association. Diabetes Care. 2016.39(Suppl 1). Interpretation and review of laboratory results Abnormal [facility] Potassium [Moles/Vol] 4.2 mmol/L 3.7 - 5.1 mmol/L [facility] Protein [Mass/Vol] 7 g/dL 6.3 - 8.0 g/dL [facility] Sodium [Moles/Vol] 137 mmol/L 136 - 144 mmol/L [facility] Urea nitrogen [Mass/Vol] 23 mg/dL 9 - 24 mg/dL [facility] Comprehensive metabolic 2000 panelon 01-23-2025 Albumin [Mass/Vol] 4.3 g/dL Normal 3.9-4.9 [facility] Comment on above: Order Comment: Speci men Type: BLOOD SPECIMENOrdering Facility: [facility] Address: [address] [place] [address] Performed By: #### 2 4323-8 ####[facility] [id number] [place] [id number] [place]#### LIPNF, 3016-3, 56213-1 ####[facility] LABCLIA [id number] [place] [address] [place] ALP [Catalytic activity/Vol] 92 U/L Normal 38-113 [facility] Comment on above: Order Comment: Speci men Type: BLOOD SPECIMENOrdering Facility: [facility] Address: [address] [place] [address] Performed By: #### 2 4323-8 ####[facility]OSPITALWNCLIA [id number] [place] [address] [place]#### MARY, 3016-3, 90995-1 ####[facility] LABCLIA [id number] [place] [address] [place] ALT [Catalytic activity/Vol] 6 U/L Low 10-54 [facility] Comment on above: Order Comment: Speci men Type: BLOOD SPECIMENOrdering Facility: [facility] Address: [address] [place] [address] Performed By: #### 2 4323-8 ####[facility]ITALNCLIA [id number] [place] [address] [place]#### MARY, 6-3, 52846-8 ####[facility] LABCLIA [id number] [place] [address] [place] Anion gap [Moles/Vol] 14 mmol/L Normal 8-15 [facility] Comment on above: Order Comment: Speci men Type: BLOOD SPECIMENOrdering Facility: [facility] Address: [address] [place] [address] Performed By: #### 2 4323-8 ####[facility]ITALWNCLIA [id number] [place] [address] [place]#### LIPLOUISE, 6-3, 71009-3 ####[facility] LABCLIA [id number] [address] [address] [place] AST [Catalytic activity/Vol] 11 U/L Low 14-40 [facility] Comment on above: Order Comment: Speci men Type: BLOOD SPECIMENOrdering Facility: [facility] Address: [address] [place] [address] Performed By: #### 2 4323-8 ####[facility]ITALWNCLIA [id number] [place] [address] [place]#### MARY, 6-3, 56117-4 ####[facility] LABCLIA [id number] [place] [address] [place] Bilirubin [Mass/Vol] 0.3 mg/dL Normal 0.2-1.[address] [facility] Comment on above: Order Comment: Speci men Type: BLOOD SPECIMENOrdering Facility: [facility] Address: [address] [place] [address] Performed By: #### 2 4322-8 ####[facility]ENTERLIA [id number] [place] [address] [place]#### MARY, 3, 45415-4 ####[facility] LABCLIA [id number] [place] [address] [place] Calcium [Mass/Vol] 9.7 mg/dL Normal 8.5-10.2 [facility] Comment on above: Order Comment: Speci men Type: BLOOD SPECIMENOrdering Facility: [facility] Address: [address] [place] [address] Performed By: #### 2 4322-8 ####[facility]ITALWNCLIA [id number] [place] [address] [place]#### LIPLOUISE, 6-3, 43021-9 ####[facility] LABCLIA [id number] [place] [id number] [place] Chloride [Moles/Vol] 99 mmol/L Normal 98-[address] [facility] Comment on above: Order Comment: Speci men Type: BLOOD SPECIMENOrdering Facility: [facility] Address: [address] [place] [address] Performed By: #### 2 4323-8 ####[facility]ITALWNCLIA [id number] [place] [address] [place]#### LIPLOUISE, 6-3, 54042-2 ####[facility] LABCLIA [id number] [place] [id number] [place] CO2 [Moles/Vol] 24 mmol/L Normal 22-30 [facility] Comment on above: Order Comment: Speci men Type: BLOOD SPECIMENOrdering Facility: [facility] Address: [address] [place] [address] Performed By: #### 2 3-8 ####[facility]ENTERLIA [id number] [place] [address] [place]#### LIPLOUISE, 6-3, 11690-3 ####[facility] LABCLIA [id number] [place] [address] [place] Creatinine [Mass/Vol] 1.73 mg/dL High 0.73-1.22 [facility] Comment on above: Order Comment: Speci men Type: BLOOD SPECIMENOrdering Facility: [facility] Address: [address] [place] [address] Performed By: #### 2 4323-8 ####[facility]ITALWNCLIA [id number] [place] [address] [place]#### LIPNF, 6-3, 73219-1 ####[facility] LABCLIA [id number] [address] [address] [place] Creatinine and Glomerular filtration rate.predicted panel (S/P/Bld) 38 mL/min/1.73m??? Low >=60 [facility] Comment on above: Order Comment: Briana lobo Type: BLOOD SPECIMENOrdering Facility: [facility] Address: [address] [place] [address] Result Comment: Lynette mated Glomerular Filtration Rate (eGFR) is calculated using the 2020 CKD-EPI creatinine equation. This equation utilizes serum creatinine, sex, and age as parameters. The creatinine assay has traceable calibration to isotope dilution-mass spectrometry. Refer to KDIGO guidelines for clinical interpretation. In patients with unstable renal function, e.g. those with acute kidney injury, the eGFR may not accurately reflect actual GFR. Performed By: #### 2 4323-8 ####[facility] [id number] [address] [place]#### LIPNF, 3016-3, 73622-9 ####[facility] LABCLIA [id number] [place] [address] [place] Glucose [Mass/Vol] 111 mg/dL High 74-99 [facility] Comment on above: Order Comment: Briana lobo Type: BLOOD SPECIMENOrdering Facility: [facility] Address: [address] [place] [address] Result Comment: The [place] Diabetes Association (ADA) provides guidance for cutoff values for fasting glucose and random glucose. The ADA defines fasting as no caloric intake for at least 8 hours. Fasting plasma glucose results between 100 to 125 mg/dL indicate increased risk for diabetes (prediabetes).Fasting plasma glucose results greater than or equal to 126 mg/dL meet the criteria for diagnosis of diabetes. In the absence of unequivocal hyperglycemia, results should be confirmed by repeat testing. In a patient with classic symptoms of hyperglycemia or hyperglycemic crisis, random plasma glucose results greater than or equal to 200 mg/dL meet the criteria for diagnosis of diabetes.Reference: Standards of Medical Care in Diabetes 2016, [place] Diabetes Association. Diabetes Care. 2016.39(Suppl 1). Performed By: #### 2 4323-8 ####[facility] [id number] [place] [address] [place]#### LIPNF, 3016-3, 12639-7 ####[facility] LABCLIA [id number] [place] [address] [place] Potassium [Moles/Vol] 4.2 mmol/L Normal 3.7-5.1 [facility] Comment on above: Order Comment: Speci men Type: BLOOD SPECIMENOrdering Facility: [facility] Address: [address] [place] [address] Performed By: #### 2 4323-8 ####[facility]ITALNCLIA [id number] [place] [address] [place]#### LIPLOUISE, 63, 49059-2 ####[facility] LABCLIA [id number] [place] [address] [place] Protein [Mass/Vol] 7.0 g/dL Normal 6.3-8.0 [facility] Comment on above: Order Comment: Speci men Type: BLOOD SPECIMENOrdering Facility: [facility] Address: [address] [place] [address] Performed By: #### 2 4323-8 ####[facility]ITALNCLIA [id number] [place] [address] [place]#### LIPLOUISE, 6-3, 88947-0 ####[facility] LABCLIA [id number] [place] [id number] [place] Sodium [Moles/Vol] 137 mmol/L Normal 136-144 [facility] Comment on above: Order Comment: Speci men Type: BLOOD SPECIMENOrdering Facility: [facility] Address: [address] [place], [place] [address] Performed By: #### 2 4323-8 ####[facility] MILLTOWNCLIA [id number] [place] [address] [place]#### LIPNF, 3016-3, 38398-4 ####[facility] LABCLIA [id number] [place] [id number] [place] Urea nitrogen [Mass/Vol] 23 mg/dL Normal 9-24 [facility] Comment on above: Order Comment: Speci men Type: BLOOD SPECIMENOrdering Facility: [facility] Address: [address] [place] [address] Performed By: #### 2 4323-8 ####[facility] [id number] [place] [address] [place]#### LIPLOUISE, 3016-3, 83615-3 ####[facility] LABCLIA [id number] [place] [address] [place] Ferritin SerPl-mCncon 2024 Ferritin [Mass/Vol] 94.3 ng/mL Normal 30.3-565.7 [facility] Comment on above: Order Comment: Speci men Type: BLOOD SPECIMENOrdering Facility: [facility] Address: [address] [place] [address] Performed By: #### 2 276-4, 2132-9 ####[facility] LABCLIA [id number] [place] [address] [place]#### 04268-2 ####[facility]ENTERLIA [id number] [place] [address] [place] HbA1c (Bld)on 01-23-2025 Average glucose Estimated from glycated hemoglobin (Bld) [Mass/Vol] 88 mg/dL Normal [facility] Comment on above: Order Comment: Speci men Type: BLOOD SPECIMENOrdering Facility: [facility] Address: [address] [place] [address] Result Comment: eAG: (Estimated average glucose) is a calculated value from HgbA1c and is outside sales account representative of the average blood glucose level in the last 2-3 month period. Performed By: #### 5 5454-3 ####[facility] LABIA [id number] [place] [address] [place] HbA1c (Bld) [Mass fraction] 4.7 % Normal 4.3-5.6 [facility] Comment on above: Order Comment: Speci men Type: BLOOD SPECIMENOrdering Facility: [facility] Address: [address] [place] [address] Result Comment: Amer [place] Diabetes Association guidelines indicate that patients with HgbA1c in the range 5.7-6.4% are at increased risk for development of diabetes, and intervention by lifestyle modification may be beneficial. HgbA1c greater or equal to 6.5% is considered diagnostic of diabetes. Performed By: #### 5 5454-3 ####[facility] LABIA [id number] [place] [address] [place] Iron and Iron binding capaci ty panelon 01-23-2025 Iron [Mass/Vol] 41 ug/dL Normal 41-186 [facility] Comment on above: Order Comment: Speci men Type: BLOOD SPECIMENOrdering Facility: [facility] Address: [address] [place] [address] Performed By: #### 2 4323-8 ####[facility] [id number] [place] [id number] [place]#### LIPNF, 3016-3, 38335-7 ####[facility] LABIA [id number] [address] [place] Iron binding capacity [Mass/Vol] 330 ug/dL Normal 232-386 [facility] Comment on above: Order Comment: Speci men Type: BLOOD SPECIMENOrdering Facility: [facility] Address: [address] [place] [address] Performed By: #### 2 4323-8 ####[facility]ENTERLIA [id number] [place] [address] [place]#### MARY, 3016-3, 17166-6 ####[facility] LABCLIA [id number] [address] [address] [place] Iron/TIBC [Molar ratio] 12.4 % Low 15.0-57.0 [facility] Comment on above: Order Comment: Speci men Type: BLOOD SPECIMENOrdering Facility: [facility] Address: [address] [place] [address] Performed By: #### 2 4323-8 ####[facility] [id number] [place] [address] [place]#### MARY, 6-3, 88860-0 ####[facility] LABCLIA [id number] [place] [address] [place] LIPID PANEL, NONFASTINGon Cholesterol [Mass/Vol] 130 mg/dL Normal <200 [facility] Comment on above: Order Comment: Speci men Type: BLOOD SPECIMENOrdering Facility: [facility] Address: [address] [place] [address] Result Comment: <200 mg/dL, Desirable 200-239 mg/dL, Borderline high>239 mg/dL, High Performed By: #### 2 4323-8 ####[facility] [id number] [place] [address] [place]#### MARY, 3016-3, 29320-0 ####[facility] LABCLIA [id number] [place] [id number] [place] HDL CHOLESTEROL, NF 67 mg/dL Normal >39 [facility] Comment on above: Order Comment: Speci men Type: BLOOD SPECIMENOrdering Facility: [facility] Address: [address] [place] [address] Result Comment: 40-5 9 mg/dL, Acceptable>59 mg/dL, High: Negative risk factor for coronary heart disease<40 mg/dL, Low: Positive risk factor for coronary heart disease Performed By: #### 2 4323-8 ####[facility] [id number] [address]#### LIPNF, 3016-3, 15057-4 ####[facility] [id number] [address] LDL CHOLESTEROL CALCULATED, NF 43 mg/dL Normal <100 [facility] Comment on above: Order Comment: Speci men Type: BLOOD SPECIMENOrdering Facility: [facility] Address: [address] [place] [address] Result Comment: <100 mg/dL, Optimal 100-129 mg/dL, Near optimal/above optimal 130-159 mg/dL, Borderline high 160-189 mg/dL, High>189 mg/dL, Very highSecondary prevention optimal LDL Cholesterol levels are recommended to be <70 mg/dLLDL cholesterol is calculated using the Arnold-NIH equation. Performed By: #### 2 4323-8 ####[facility] [id number] [address]#### MARY, 3016-3, 85173-6 ####[facility] [id number] [address] LDL/HDL RATIO, NF 0.64 mg/dL Normal <2.54 [facility] Comment on above: Order Comment: Speci men Type: BLOOD SPECIMENOrdering Facility: [facility] Address: [address] [place] [address] Result Comment: Refe rence:1. National Cholesterol Education Program ATP III Guideline At-A-Glance Quick Desk Reference: National Heart, Lung, and Blood [place]. National Institutes of Health. 2001: NIH Publication No. 01-3305.2. An International Atherosclerosis Society position paper: global recommendations for the management of dyslipidemia: executive summary, Atherosclerosis. 2014: 232(2):410-413. Performed By: #### 2 3-8 ####[facility]ITALWNCLIA [id number] [place] [address] [place]#### LIPLOUISE, 6-3, 09006-3 ####[facility] LABCLIA [id number] [place] [address] [place] NON HDL CHOL, NF 63 mg/dL Normal <130 [facility] Comment on above: Order Comment: Speci men Type: BLOOD SPECIMENOrdering Facility: [facility] Address: [address] [place] [address] Result Comment: <130 mg/dL, Optimal 130-159 mg/dL, Near optimal/above optimal 160-189 mg/dL, Borderline high 190-219 mg/dL, High>219 mg/dL, Very highSecondary prevention optimal non HDL Cholesterol levels are recommended to be <100 mg/dL Performed By: #### 2 4322-8 ####[facility] [id number] [place] [address] [place]#### LIPLOUISE, 6-3, 03709-9 ####[facility] LABIA [id number] [address] [place] T CHOL/HDL RATIO NF 1.94 mg/dL Normal <5.10 [facility] Comment on above: Order Comment: Speci men Type: BLOOD SPECIMENOrdering Facility: [facility] Address: [address] [place] [address] Performed By: #### 2 4323-8 ####[facility]CLIA [id number] [address] [place]#### LIPLOUISE, 6-3, 82002-7 ####[facility] LABCLIA [id number] [place] [address] [place] TRIGLYCERIDES, NF 109 mg/dL Normal <150 [facility] Comment on above: Order Comment: Speci men Type: BLOOD SPECIMENOrdering Facility: [facility] Address: [address] [place] [address] Result Comment: <150 mg/dL, Normal 150-199 mg/dL, Borderline high 200-499 mg/dL, High>499 mg/dL, Very high Performed By: #### 2 4323-8 ####[facility] [id number] [place] [address] [place]#### MARY, 63, 06644-0 ####[facility] LABCLIA [id number] [place] [address] [place] VLDL CHOLESTEROL, NF 15 mg/dL Normal <[address] [facility] Comment on above: Order Comment: Speci men Type: BLOOD SPECIMENOrdering Facility: [facility] Address: [address] [place] [address] Performed By: #### 2 3-8 ####[facility]ENTERLIA [id number] [place] [address] [place]#### LIPNF, 6-3, 46572-3 ####[facility] LABCLIA [id number] [place] [address] [place] MAGNESIUMOrdered By: Guerline Cabrera on 01-23-2025 Magnesium [Mass/Vol] 2.2 mg/dL 1.7 - 2 .3 mg/dL [facility] Magnesium SerPl-mCncon 01-23 Magnesium [Mass/Vol] 2.2 mg/dL Normal 1.7-2.[address] [facility] Comment on above: Order Comment: Speci men Type: BLOOD SPECIMENOrdering Facility: [facility] Address: [address] [place] [address] Performed By: #### 2 276-4, 2132-04 ####[facility] LABCLIA [id number] [place] [address] [place]#### 69466-7 ####[facility] MILLWNCLIA [id number] [place] [address] [place] Magnesium [Mass/Vol]Ordered By: Karma Cabrera on 01-23-2025 Interpretation and review of laboratory results Normal [facility] TSH SerPl-aCncon 01-23-2025 TSH Qn 3.170 m[IU]/L Normal 0.270-4.200 [facility] Comment on above: Order Comment: Speci men Type: BLOOD SPECIMENOrdering Facility: [facility] Address: [address] [place] [address] Performed By: #### 2 4323-8 ####[facility] [id number] [place] [address] [place]#### LIPNF, 3016-3, 66221-1 ####[facility] LABCLIA [id number] [place] [address] [place] Vit B12 SerPl-mCncon 025 Cobalamin (Vitamin B12) [Mass/Vol] 279 pg/mL Normal 232-1245 [facility] Comment on above: Order Comment: Speci men Type: BLOOD SPECIMENOrdering Facility: [facility] Address: [address] [place] [address] Performed By: #### 2 276-4, 2132-04 ####[facility] LABCLIA [id number] [place] [address] [place]#### 54027-8 ####[facility] MILLDEERFIELDNCLIA [id number] [place] [address] [place] CNPNon 12-26-2024 CNPN Normal [facility] CNOVon 12-20-2024 CNOV Normal [facility] US CAROTID ARTERIES [facility] LABon 12-20-2024 US [facility] LAB Normal [facility] CNPNon 12-19-2024 CNPN Normal [facility] CNOVon 12-16-2024 CNOV Normal [facility] CNPNon 12-15-2024 CNPN Normal [facility] [facility] CNPNon 12-09-2024 CNPN Normal [facility] Hemoglobin A1con 12-09-2024 HbA1c (Bld) [Mass fraction] 4.9 % Normal <=5.6 [facility] Comment on above: Order Comment: 211 Result Comment: Norm al < 5.7 % Prediabetic 5.7 - 6.4 % Diabetic >or= 6.5 % Please note range changes. Performed By: #### L 501.9907 ####[facility] [address] [place], [place], [id number] Hemoglobin A1c percentageOrd ered By: Ana Hamilton on 12-09-2024 HbA1c (Bld) [Mass fraction] 4.9 % <5.7 [facility] Comment on above: Normal < 5.7 % Predi abetic 5.7 - 6.4 % Diabetic >or= 6.5 % Please note range changes. Anion gap in Serum or Plasma Ordered By: Ana Hamilton on 12-05-2024 Anion gap [Moles/Vol] 12 mmol/L 01-05 [facility] BUN/creatinine ratioOrdered By: Ana Hamilton on 12-05-2024 Urea nitrogen/Creatinine [Mass ratio] 16.1 mg/mg 06-12 [facility] Basic Metabolic Profile (BMP )on 12-05-2024 BUN/CRE 16.1 RATIO Normal 06-12 [facility] Comment on above: Performed By: #### L 500.2500, L501.5200, L100.0500 ####[facility] [address] [place], [address] Calcium [Mass/Vol] 9.1 mg/dL Normal 7.6-11.0 [facility] Comment on above: Performed By: #### L 500.2500, L501.5200, L100.0500 ####[facility] [address] [place], [address] Chloride [Moles/Vol] 100 mmol/L Normal 98-108 [facility] Comment on above: Performed By: #### L 500.2500, L501.5200, L100.0500 ####[facility] [address] [place], [address] CO2 [Moles/Vol] 26.2 mmol/L Normal 21.0-32.0 [facility] Comment on above: Performed By: #### L 500.2500, L501.5200, L100.0500 ####[facility] [address] [place], [address] Creatinine [Mass/Vol] 1.53 mg/dL High 0.70-1.20 [facility] Comment on above: Performed By: #### L 500.2500, L501.5200, L100.0500 ####[facility] [address] [place], [address] GAP 12 Normal 5-15 [facility] Comment on above: Performed By: #### L 500.2500, L501.5200, L100.0500 ####[facility] [address] [place], [address] GFR/1.73 sq M.predicted among non-blacks MDRD (S/P/Bld) [Vol rate/Area] 44 mL/min/{1.73_m2} Low >60 [facility] Comment on above: Result Comment: mL/m in/1.73m2 CKD-EPI Creatinine Equation (2020) Performed By: #### L 500.2500, L501.5200, L100.0500 ####[facility] [address] [place], [address] Glucose [Mass/Vol] 92 mg/dL Normal 70-99 [facility] Comment on above: Performed By: #### L 500.2500, L501.5200, L100.0500 ####[facility] [address] [place], [address] Potassium [Moles/Vol] 4.7 mmol/L Normal 3.3-5.1 [facility] Comment on above: Performed By: #### L 500.2500, L501.5200, L100.0500 ####[facility] [address] [place], [address] Sodium [Moles/Vol] 138 mmol/L Normal 133-145 [facility] Comment on above: Performed By: #### L 500.2500, L501.5200, L100.0500 ####[facility] [address] [place], [address] Urea nitrogen [Mass/Vol] 25 mg/dL High 4-19 [facility] Comment on above: Performed By: #### L 500.2500, L501.5200, L100.0500 ####[facility] [address] [place], [address] CBC-Complete Blood Cnt No Di ffon 12-05-2024 Erythrocyte distribution width (RBC) [Ratio] 15.9 % High 11.6-14.6 [facility] Comment on above: Performed By: #### L 500.2500, L501.5200, L100.0500 ####[facility] [address] [place], [address] Hematocrit (Bld) [Volume fraction] 30.1 % Low 40-54 [facility] Comment on above: Performed By: #### L 500.2500, L501.5200, L100.0500 ####[facility] [address] [place], [address] Hemoglobin (Bld) [Mass/Vol] 9.1 g/dL Low 13.0-16.5 [facility] Comment on above: Performed By: #### L 500.2500, L501.5200, L100.0500 ####[facility] [address] [place], [address] MCH (RBC) [Entitic mass] 27.2 pg Normal 27.0-32.0 [facility] Comment on above: Performed By: #### L 500.2500, L501.5200, L100.0500 ####[facility] [address] [place], [address] MCHC (RBC) [Mass/Vol] 30.2 g/dL Low 32-36 [facility] Comment on above: Performed By: #### L 500.2500, L501.5200, L100.0500 ####[facility] [address] [place], [address] MCV (RBC) [Entitic vol] 90.1 fL Normal 80-94 [facility] Comment on above: Performed By: #### L 500.2500, L501.5200, L100.0500 ####[facility] [address] [place], [address] Platelet mean volume (Bld) [Entitic vol] 14.3 fL High 6.2-12.0 [facility] Comment on above: Performed By: #### L 500.2500, L501.5200, L100.0500 ####[facility] [address] [place], [address] Platelets (Bld) [#/Vol] 108 10*3/uL Low 150-450 [facility] Comment on above: Performed By: #### L 500.2500, L501.5200, L100.0500 ####[facility] [address] [place], [address] RBC (Bld) [#/Vol] 3.34 10*6/uL Low 4.6-6.2 [facility] Comment on above: Performed By: #### L 500.2500, L501.5200, L100.0500 ####[facility] [address] [place], [address] RDW SD 51.6 fl High 35.1-43.9 [facility] Comment on above: Performed By: #### L 500.2500, L501.5200, L100.0500 ####[facility] [address] [place], [address] WBC (Bld) [#/Vol] 6.8 10*3/uL Normal 4.4-11.0 [facility] Comment on above: Performed By: #### L 500.2500, L501.5200, L100.0500 ####[facility] [address] [place], [address] Carbon dioxide, total [Moles /volume] in Central venous bloodOrdered By: Ana Hamilton on 12-05-2024 CO2 [Moles/Vol] 26.2 mmol/L 21.0-32.0 [facility] Chloride assayOrdered By: Lv Hamilton on 12-05-2024 Chloride [Moles/Vol] 100 mmol/L 98-108 [facility] Erythrocyte distribution wid th ratioOrdered By: Ana Hamilton on 12-05-2024 Erythrocyte distribution width (RBC) [Ratio] 15.9 % High 11.6-14.6 [facility] Erythrocyte distribution wid th standard deviationOrdered By: Ana Hamilton on 12-05-2024 Erythrocyte distribution width (RBC) [Ratio] 51.6 fl High 35.1-43.9 [facility] Glomerular filtration rate ( GFR) estimation/1.73 sq m using serum, plasma, or whole bOrdered By: Ana Hamilton on 12-05-2024 GFR/1.73 sq M.predicted among non-blacks MDRD (S/P/Bld) [Vol rate/Area] 44 mL/min/{1.73_m2} Low >60 [facility] Comment on above: mL/min/1.73m2 CKD-EP I Creatinine Equation (2020) Hematocrit Auto (Bld) [Volum e fraction]Ordered By: Ana Hamilton on 12-05-2024 Hematocrit (Bld) [Volume fraction] 30.1 % Low 40-54 [facility] Hemoglobin measurementOrdere d By: Ana Hamilton on 12-05-2024 Hemoglobin (Bld) [Mass/Vol] 9.1 g/dL Low 13.0-16.5 [facility] MCV (mean corpuscular volume ) determinationOrdered By: Ana Hamilton on 12-05-2024 MCV (RBC) [Entitic vol] 90.1 fL 80-94 [facility] Magnesiumon 12-05-2024 Magnesium [Mass/Vol] 3.1 mg/dL High 1.5-2.2 [facility] Comment on above: Performed By: #### L 500.2500, L501.5200, L100.0500 ####[facility] [address] [place], [place], [id number] Magnesium measurement (mass/ volume)Ordered By: Ana Hamilton on 12-05-2024 Magnesium (Unsp spec) [Mass/Vol] 3.1 mg/dL High 1.5-2.2 [facility] Mean corpuscular hemoglobin (MCH) determinationOrdered By: Ana Hamilton on 12-05-2024 MCH (RBC) [Entitic mass] 27.2 pg 27.0-32.0 [facility] Mean corpuscular hemoglobin concentration (MCHC) determinationOrdered By: Ana Hamilton on 12-05-2024 MCHC (RBC) [Mass/Vol] 30.2 g/dL Low 32-36 [facility] Mean platelet volume determi nationOrdered By: Ana Hamilton on 12-05-2024 Platelet mean volume (Bld) [Entitic vol] 14.3 fL High 6.2-12.0 [facility] Platelet countOrdered By: Lv Hamilton on 12-05-2024 Platelets (Bld) [#/Vol] 108 10*3/uL Low 150-450 [facility] Potassium measurement (mass/ volume)Ordered By: Ana Hamilton on 12-05-2024 Potassium (Unsp spec) [Mass/Vol] 4.7 mmol/L 3.3-5.1 [facility] RBC Auto (Bld) [#/Vol]Ordere d By: Ana Hamilton on 12-05-2024 RBC (Bld) [#/Vol] 3.34 10*6/uL Low 4.6-6.2 [facility] Serum creatinine measurement (mass/volume)Ordered By: Ana Hamilton on 12-05-2024 Creatinine [Mass/Vol] 1.53 mg/dL High 0.70-1.20 [facility] Serum glucose measurement (m ass/volume)Ordered By: Ana Hamilton on 12-05-2024 Glucose [Mass/Vol] 92 mg/dL 70-99 [facility] Serum or plasma calcium kim urement (mass/volume)Ordered By: Ana Hamilton on 12-05-2024 Calcium [Mass/Vol] 9.1 mg/dL 7.6-11.0 [facility] Serum or plasma urea nitroge n measurement (mass/volume)Ordered By: Ana Hamilton on 12-05-2024 Urea nitrogen [Mass/Vol] 25 mg/dL High 4-19 [facility] Sodium levelOrdered By: Shari Hamilton on 12-05-2024 Sodium [Moles/Vol] 138 mmol/L 133-145 [facility] White blood cell (WBC) count Ordered By: Ana Hamilton on 12-05-2024 WBC (Bld) [#/Vol] 6.8 10*3/uL 4.4-11.0 [facility] CNOVon 11-30-2024 CNOV Normal [facility] XR HIP 3V PELV+ AP/LAT RTon 11-30-2024 XR HIP 3V PELV+ AP/LAT RT * * *Final Report* * * DATE OF EXAM: Nov 30 2024 1:32PM FLOWER 5352 - XR HIP 3V PELV+ AP/LAT RT / PROCEDURE REASON: Z96.641-Status post right hip replacement * * * * Physician Interpretation * * * * Pelvis and right hip HISTORY: Indication: Status post right hip replacement TECHNIQUE: Images: XR HIP 3V PELV+ AP/LAT RT Comparison: 10/20/2024. RESULT: Findings: Pelvis: No fractures or dislocations are seen. Right hip: No fractures or dislocations are seen. The components of the RIGHT total hip arthroplasty appear stable.. There are intact cables present There is no evidence of loosening of the components. IMPRESSION: Findings as discussed under Results portion of report. No significant interval change Health Plan Advisor: PSCRich Transcribe Date/Time: Dec 02 2024 8:09A Dictated by : SEEMA CALVILLO DO This examination was interpreted and the report reviewed and electronically signed by: SEEMA CALVILLO DO on Dec 02 2024 8:10AM EST [id number] Normal [facility] Anion gap in Serum or Plasma Ordered By: Ana Hamilton on 11-29-2024 Anion gap [Moles/Vol] 12 mmol/L 5-15 [facility] BUN/creatinine ratioOrdered By: Ana Hamilton on 11-29-2024 Urea nitrogen/Creatinine [Mass ratio] 13.1 mg/mg - [facility] Basic Metabolic Profile (BMP )on 11-29-2024 BUN/CRE 13.1 RATIO Normal - [facility] Comment on above: Order Comment: 211 Performed By: #### L 500.2500, L100.0500 ####[facility] [address] [place], [address] Calcium [Mass/Vol] 9.1 mg/dL Normal 7.6-11.0 [facility] Comment on above: Order Comment: 211 Performed By: #### L 500.2500, L100.0500 ####[facility] [address] [place], [address] Chloride [Moles/Vol] 101 mmol/L Normal 98-108 [facility] Comment on above: Order Comment: 211 Performed By: #### L 500.2500, L100.0500 ####[facility] [address] [place], [address] CO2 [Moles/Vol] 27.0 mmol/L Normal 21.0-32.0 [facility] Comment on above: Order Comment: 211 Performed By: #### L 500.2500, L100.0500 ####[facility] [address] [place], [address] Creatinine [Mass/Vol] 1.52 mg/dL High 0.70-1.20 [facility] Comment on above: Order Comment: 211 Performed By: #### L 500.2500, L100.0500 ####[facility] [address] [place], [address] GAP 12 Normal 5-15 [facility] Comment on above: Order Comment: 211 Performed By: #### L 500.2500, L100.0500 ####[facility] [address] [place], [address] GFR/1.73 sq M.predicted among non-blacks MDRD (S/P/Bld) [Vol rate/Area] 44 mL/min/{1.73_m2} Low >60 [facility] Comment on above: Order Comment: 211 Result Comment: mL/m in/1.73m2 CKD-EPI Creatinine Equation (2020) Performed By: #### L 500.2500, L100.0500 ####[facility] [address] [place], [address] Glucose [Mass/Vol] 103 mg/dL High 70-99 [facility] Comment on above: Order Comment: 211 Performed By: #### L 500.2500, L100.0500 ####[facility] [address] [place], [address] Potassium [Moles/Vol] 3.9 mmol/L Normal 3.3-5.1 [facility] Comment on above: Order Comment: 211 Performed By: #### L 500.2500, L100.0500 ####[facility] [address] [place], [address] Sodium [Moles/Vol] 140 mmol/L Normal 133-145 [facility] Comment on above: Order Comment: 211 Performed By: #### L 500.2500, L100.0500 ####[facility] [address] [place], [address] Urea nitrogen [Mass/Vol] 20 mg/dL High 4-19 [facility] Comment on above: Order Comment: 211 Performed By: #### L 500.2500, L100.0500 ####[facility] [address] [place], [address] CBC-Complete Blood Cnt No Di ffon 11-29-2024 Erythrocyte distribution width (RBC) [Ratio] 14.7 % High 11.6-14.6 [facility] Comment on above: Order Comment: 211 Performed By: #### L 500.2500, L100.0500 ####[facility] [address] [place], [address] Hematocrit (Bld) [Volume fraction] 32.3 % Low 40-54 [facility] Comment on above: Order Comment: 211 Performed By: #### L 500.2500, L100.0500 ####[facility] [address] [place], [address] Hemoglobin (Bld) [Mass/Vol] 9.9 g/dL Low 13.0-16.5 [facility] Comment on above: Order Comment: 211 Performed By: #### L 500.2500, L100.0500 ####[facility] [address] [place], [address] MCH (RBC) [Entitic mass] 27.5 pg Normal 27.0-32.0 [facility] Comment on above: Order Comment: 211 Performed By: #### L 500.2500, L100.0500 ####[facility] [address] [place], [address] MCHC (RBC) [Mass/Vol] 30.7 g/dL Low 32-36 [facility] Comment on above: Order Comment: 211 Performed By: #### L 500.2500, L100.0500 ####[facility] [address] [place], [address] MCV (RBC) [Entitic vol] 89.7 fL Normal 80-94 [facility] Comment on above: Order Comment: 211 Performed By: #### L 500.2500, L100.0500 ####[facility] [address] [place], [address] Platelet mean volume (Bld) [Entitic vol] 13.6 fL High 6.2-12.0 [facility] Comment on above: Order Comment: 211 Performed By: #### L 500.2500, L100.0500 ####[facility] [address] [place], [address] Platelets (Bld) [#/Vol] 141 10*3/uL Low 150-450 [facility] Comment on above: Order Comment: 211 Performed By: #### L 500.2500, L100.0500 ####[facility] [address] [place], [address] RBC (Bld) [#/Vol] 3.60 10*6/uL Low 4.6-6.2 [facility] Comment on above: Order Comment: 211 Performed By: #### L 500.2500, L100.0500 ####[facility] [address] [place], [address] RDW SD 47.7 fl High 35.1-43.9 [facility] Comment on above: Order Comment: 211 Performed By: #### L 500.2500, L100.0500 ####[facility] [address] [place], [address] WBC (Bld) [#/Vol] 7.8 10*3/uL Normal 4.4-11.0 [facility] Comment on above: Order Comment: 211 Performed By: #### L 500.2500, L100.0500 ####[facility] [address] [place], [address] Carbon dioxide, total [Moles /volume] in Central venous bloodOrdered By: Ana Hamilton on 11-29-2024 CO2 [Moles/Vol] 27.0 mmol/L 21.0-32.0 [facility] Chloride assayOrdered By: Lv Hamilton on 11-29-2024 Chloride [Moles/Vol] 101 mmol/L 98-108 [facility] Erythrocyte distribution wid th ratioOrdered By: Ana Hamilton on 11-29-2024 Erythrocyte distribution width (RBC) [Ratio] 14.7 % High 11.6-14.6 [facility] Erythrocyte distribution wid th standard deviationOrdered By: Ana Hamilton on 11-29-2024 Erythrocyte distribution width (RBC) [Ratio] 47.7 fl High 35.1-43.9 [facility] Glomerular filtration rate ( GFR) estimation/1.73 sq m using serum, plasma, or whole bOrdered By: Ana Hamilton on 11-29-2024 GFR/1.73 sq M.predicted among non-blacks MDRD (S/P/Bld) [Vol rate/Area] 44 mL/min/{1.73_m2} Low >60 [facility] Comment on above: mL/min/1.73m2 CKD-EP I Creatinine Equation (2020) Hematocrit Auto (Bld) [Volum e fraction]Ordered By: Ana Hamilton on 11-29-2024 Hematocrit (Bld) [Volume fraction] 32.3 % Low 40-54 [facility] Hemoglobin measurementOrdere d By: Ana Hamilton on 11-29-2024 Hemoglobin (Bld) [Mass/Vol] 9.9 g/dL Low 13.0-16.5 [facility] MCV (mean corpuscular volume ) determinationOrdered By: Ana Hamilton on 11-29-2024 MCV (RBC) [Entitic vol] 89.7 fL 80-94 [facility] Mean corpuscular hemoglobin (MCH) determinationOrdered By: Ana Hamilton on 11-29-2024 MCH (RBC) [Entitic mass] 27.5 pg 27.0-32.0 [facility] Mean corpuscular hemoglobin concentration (MCHC) determinationOrdered By: Ana Hamilton on 11-29-2024 MCHC (RBC) [Mass/Vol] 30.7 g/dL Low 32-36 [facility] Mean platelet volume determi nationOrdered By: Ana Hamilton on 11-29-2024 Platelet mean volume (Bld) [Entitic vol] 13.6 fL High 6.2-12.0 [facility] Platelet countOrdered By: Lv Hamilton on 11-29-2024 Platelets (Bld) [#/Vol] 141 10*3/uL Low 150-450 [facility] Potassium measurement (mass/ volume)Ordered By: Ana Hamilton on 11-29-2024 Potassium (Unsp spec) [Mass/Vol] 3.9 mmol/L 3.3-5.1 [facility] RBC Auto (Bld) [#/Vol]Ordere d By: Ana Hamilton on 11-29-2024 RBC (Bld) [#/Vol] 3.60 10*6/uL Low 4.6-6.2 [facility] Serum creatinine measurement (mass/volume)Ordered By: Ana Hamilton on 11-29-2024 Creatinine [Mass/Vol] 1.52 mg/dL High 0.70-1.20 [facility] Serum glucose measurement (m ass/volume)Ordered By: Ana Hamilton on 11-29-2024 Glucose [Mass/Vol] 103 mg/dL High 70-99 [facility] Serum or plasma calcium kim urement (mass/volume)Ordered By: Ana Hamilton on 11-29-2024 Calcium [Mass/Vol] 9.1 mg/dL 7.6-11.0 [facility] Serum or plasma urea nitroge n measurement (mass/volume)Ordered By: Ana Hamilton on 11-29-2024 Urea nitrogen [Mass/Vol] 20 mg/dL High 4-19 [facility] Sodium levelOrdered By: Shari Hamilton on 11-29-2024 Sodium [Moles/Vol] 140 mmol/L 133-145 [facility] White blood cell (WBC) count Ordered By: Ana Hamilton on 11-29-2024 WBC (Bld) [#/Vol] 7.8 10*3/uL 4.4-11.0 [facility] Anion gap in Serum or Plasma Ordered By: Fiorella Ramos on 11-28-2024 Anion gap [Moles/Vol] 12 mmol/L 5-15 [facility] BUN/creatinine ratioOrdered By: Fiorella Ramos on 11-28-2024 Urea nitrogen/Creatinine [Mass ratio] 12.7 mg/mg 10-20 [facility] Basic Metabolic Profile (BMP )on 11-28-2024 BUN/CRE 12.7 RATIO Normal 10- [facility] Comment on above: Performed By: #### L 500.2500 ####[facility] [address] [place], [address] Calcium [Mass/Vol] 9.1 mg/dL Normal 7.6-11.0 [facility] Comment on above: Performed By: #### L 500.2500 ####[facility] [address] [place], [address] Chloride [Moles/Vol] 100 mmol/L Normal 98-108 [facility] Comment on above: Performed By: #### L 500.2500 ####[facility] [address] [facility] [place], [address] CO2 [Moles/Vol] 27.1 mmol/L Normal 21.0-32.0 [facility] Comment on above: Performed By: #### L 500.2500 ####[facility] [address] [place], [address] Creatinine [Mass/Vol] 1.57 mg/dL High 0.70-1.20 [facility] Comment on above: Performed By: #### L 500.2500 ####[facility] [address] [place], [address] ECRCL 31.58 ml/min Low 50-250 [facility] Comment on above: Performed By: #### L 500.2500 ####[facility] [address] [place], [address] GAP 12 Normal 5-15 [facility] Comment on above: Performed By: #### L 500.2500 ####[facility] [address] [place], [address] GFR/1.73 sq M.predicted among non-blacks MDRD (S/P/Bld) [Vol rate/Area] 43 mL/min/{1.73_m2} Low >60 [facility] Comment on above: Result Comment: mL/m in/1.73m2 CKD-EPI Creatinine Equation (2020) Performed By: #### L 500.2500 ####[facility] [address] [place], [address] Glucose [Mass/Vol] 152 mg/dL High 70-99 [facility] Comment on above: Performed By: #### L 500.2500 ####[facility] [address] [place], [address] Potassium [Moles/Vol] 4.1 mmol/L Normal 3.3-5.1 [facility] Comment on above: Performed By: #### L 500.2500 ####[facility] [address] [place], [address] Sodium [Moles/Vol] 139 mmol/L Normal 133-145 [facility] Comment on above: Performed By: #### L 500.2500 ####[facility] [address] [place], [address] Urea nitrogen [Mass/Vol] 20 mg/dL High 4-19 [facility] Comment on above: Performed By: #### L 500.2500 ####[facility] [address] [place], [address] Bedside Glucoseon 11-28-2024 FINGERSTICK GLU 107 mg/dL High 74-106 [facility] Comment on above: Result Comment: OSITO GEMENT OF PATIENT CARE PER NURSING PROTOCOL Performed By: #### L 501.080 ####[facility] [address] [place], [address] FINGERSTICK GLU 96 mg/dL Normal 74-106 [facility] Comment on above: Result Comment: OSITO GEMENT OF PATIENT CARE PER NURSING PROTOCOL Performed By: #### L 501.080 ####[facility] [address] [place], [address] CNPNon 11-28-2024 CNPN Normal [facility] Carbon dioxide, total [Moles /volume] in Central venous bloodOrdered By: Fiorella Ramos on 11-28-2024 CO2 [Moles/Vol] 27.1 mmol/L 21.0-32.0 [facility] Chloride assayOrdered By: Ny Ramos on 11-28-2024 Chloride [Moles/Vol] 100 mmol/L 98-108 [facility] Electrocardiogram reportOrde red By: Ernie Powell on 11-28-2024 EKG study [facility] [address] [place] [address] 12 Lead EKG 11/26/24 0531 MR#: [id number] Acct: [id number] Name: ANGIE DUTTON Rep #:[id number] : 1940 84 From: Ernie Powell MD Attending Dr: Dr. Fiorella Ramos MD Status: ADM JERARDO Ordering Dr: Ju Fragoso MD Date: 11/26/24 Location: PCU Sex: M C Admitted: 11/25/24 Test Reason : STRESS TEST Blood Pressure : */* mmHG Vent. Rate : 67 BPM Atrial Rate : 67 BPM P-R Int : 238 ms QRS Dur : 134 ms QT Int : 476 ms P-R-T Axes : 17 -88 10 degrees QTcB Int : 502 ms Sinus rhythm with 1st degree A-V block Right bundle branch block Left anterior fascicular block Bifascicular block Abnormal ECG When compared with ECG of 25-Nov-2024 14:39, MANUAL COMPARISON REQUIRED DATA IS UNCONFIRMED Confirmed by PAULINO MEZA, ERNIE ([id number]), image editor ESTEPHANIA MCKENZIE ([id number]) on 11/28/2024 9:18:00 AM Referred By: Confirmed By: ERNIE POWELL MD 11/28/24 0918 Date _ Ernie Powell MD CC: [employer] Valery Quinteros; Dr. Ju Fragoso MD; Dr. Fiorella Ramos MD ~ Signed [facility] Work Phone: Electrocardiogram reportOrde red By: Al Barrientos on 11-28-2024 EKG study [facility] [address] [place] [id number] Lead EKG 11/25/24 1439 MR#: [id number] Acct: [id number] Name: NATOANGIE Fran Rep #:[id number] : 1940 84 From: Al hurtado MD Attending Dr: Dr. Artie Palacio MD Status: ADM JERARDO Ordering Dr: Radha Goodrich DO Date: 0 11/25/24 Location: U Sex: M C Admitted: 11/25/24 Test Reason : Blood Pressure : */* mmHG Vent. Rate : 70 BPM Atrial Rate : 70 BPM P-R Int : 212 ms QRS Dur : 128 ms QT Int : 442 ms P-R-T Axes : -81 -88 10 degrees QTcB Int : 477 ms Unusual P axis, possible ectopic atrial rhythm Right bundle branch block Left anterior fascicular block Bifascicular block Abnormal ECG Confirmed by MARIAN MEZA, ARIELA ([id number]), image editor ANAY ARANA ([id number]) on11/28/2024 5:54:59 AM Referred By: Confirmed By: ARIELA BARRIENTOS MD 11/28/24 0555 Date _ Al Barrientos MD CC: PANCHITO Quinteros; Dr. Radha Goodrich DO; Dr. Artie Palacio MD ~ Signed [facility] Work Phone: Estimation of creatinine ed aranceOrdered By: Fiorella Ramos on 11-28-2024 Estimated Creatinine Clearance Calc 31.58 ml/min Low 50-250 [facility] GFR/1.73 sq M.predicted fermin g non-blacks MDRD (S/P/Bld) [Vol rate/Area]Ordered By: Fiorella Ramos on 11-28-2024 Estimated GFR (MDRD) Non-Af Amer 43 Low >60 [facility] Comment on above: mL/min/1.73m2 CKD-EP I Creatinine Equation (2020) Glomerular filtration rate ( GFR) estimation/1.73 sq m using serum, plasma, or whole bOrdered By: Fiorella Ramos on 11-28-2024 GFR/1.73 sq M.predicted among non-blacks MDRD (S/P/Bld) [Vol rate/Area] 43 mL/min/{1.73_m2} Low >60 [facility] Comment on above: mL/min/1.73m2 CKD-EP I Creatinine Equation (2020) Glucose measurement at bedsi deOrdered By: Fiorella Ramos on 11-28-2024 Bedside Glucose (Misc Panel) 107 mg/dL High 74-106 [facility] Comment on above: MANAGEMENT OF PATIEN T CARE PER NURSING PROTOCOL Glucose [Mass/Vol] 107 mg/dL High 74-106 [facility] Comment on above: MANAGEMENT OF PATIEN T CARE PER NURSING PROTOCOL Potassium (Unsp spec) [Mass/ Vol]Ordered By: Fiorella Ramos on 11-28-2024 Potassium [Moles/Vol] 4.1 mmol/L 3.3-5.1 [facility] Potassium measurement (mass/ volume)Ordered By: Fiorella Ramos on 11-28-2024 Potassium (Unsp spec) [Mass/Vol] 4.1 mmol/L 3.3-5.1 [facility] Serum creatinine measurement (mass/volume)Ordered By: Fiorella Ramos on 11-28-2024 Creatinine [Mass/Vol] 1.57 mg/dL High 0.70-1.20 [facility] Serum glucose measurement (m ass/volume)Ordered By: Fiorella Ramos on 11-28-2024 Glucose [Mass/Vol] 152 mg/dL High 70-99 [facility] Serum or plasma calcium kim urement (mass/volume)Ordered By: Fiorella Ramos on 11-28-2024 Calcium [Mass/Vol] 9.1 mg/dL 7.6-11.0 [facility] Serum or plasma urea nitroge n measurement (mass/volume)Ordered By: Fiorella Ramos on 11-28-2024 Urea nitrogen [Mass/Vol] 20 mg/dL High 4-19 [facility] Sodium levelOrdered By: Roland Ramos on 11-28-2024 Sodium [Moles/Vol] 139 mmol/L 133-145 [facility] Bedside Glucoseon 11-27-2024 FINGERSTICK GLU 166 mg/dL High 74-106 [facility] Comment on above: Result Comment: OSITO GEMENT OF PATIENT CARE PER NURSING PROTOCOL Performed By: #### L 501.080 ####[facility] [address] [place], [address] FINGERSTICK GLU 103 mg/dL Normal 74-106 [facility] Comment on above: Result Comment: OSITO GEMENT OF PATIENT CARE PER NURSING PROTOCOL Performed By: #### L 501.080 ####[facility] [address] [place], [address] FINGERSTICK GLU 138 mg/dL High 74-106 [facility] Comment on above: Result Comment: OSITO GEMENT OF PATIENT CARE PER NURSING PROTOCOL Performed By: #### L 501.080 ####[facility] [address] [place], [address] FINGERSTICK GLU 99 mg/dL Normal 74-106 [facility] Comment on above: Result Comment: OSITO GEMENT OF PATIENT CARE PER NURSING PROTOCOL Performed By: #### L 501.080 ####[facility] [address] [place], [address] 12 Lead EKGon 11-26-2024 12 Lead EKG Normal [facility] Absolute lymphocyte countOrd ered By: Ju Fragoso on 11-26-2024 Lymphocytes Auto (Unsp spec) [#/Vol] 1.84 10*3/uL 0.83-4.51 [facility] Absolute neutrophil countOrd ered By: Ju Fragoso on 11-26-2024 Neutrophils (Bld) [#/Vol] 3.9 10*3/uL 2.0-7.7 [facility] Automated lymphocyte count a s percentage of total leukocytesOrdered By: Ju Fragoso on 11-26-2024 Lymphocytes/100 WBC Auto (Unsp spec) 28.8 % 19-41 [facility] Basic Metabolic Profile (BMP )on 11-26-2024 BUN/CRE 14.1 RATIO Normal 10-20 [facility] Comment on above: Performed By: #### L 500.2500, L100.0100 ####[facility] [address] [place], [address] Calcium [Mass/Vol] 8.8 mg/dL Normal 7.6-11.0 [facility] Comment on above: Performed By: #### L 500.2500, L100.0100 ####[facility] [address] [place], [address] Chloride [Moles/Vol] 102 mmol/L Normal 98-108 [facility] Comment on above: Performed By: #### L 500.2500, L100.0100 ####[facility] [address] [place], [address] CO2 [Moles/Vol] 26.5 mmol/L Normal 21.0-32.0 [facility] Comment on above: Performed By: #### L 500.2500, L100.0100 ####[facility] [address] [place], [address] Creatinine [Mass/Vol] 1.47 mg/dL High 0.70-1.20 [facility] Comment on above: Performed By: #### L 500.2500, L100.0100 ####[facility] [address] [place], [address] ECRCL 33.72 ml/min Low 50-250 [facility] Comment on above: Performed By: #### L 500.2500, L100.0100 ####[facility] [address] [place], [address] GAP 12 Normal 5-15 [facility] Comment on above: Performed By: #### L 500.2500, L100.0100 ####[facility] [address] [place], [address] GFR/1.73 sq M.predicted among non-blacks MDRD (S/P/Bld) [Vol rate/Area] 46 mL/min/{1.73_m2} Low >60 [facility] Comment on above: Result Comment: mL/m in/1.73m2 CKD-EPI Creatinine Equation (2020) Performed By: #### L 500.2500, L100.0100 ####[facility] [address] [place], [address] Glucose [Mass/Vol] 91 mg/dL Normal 70-99 [facility] Comment on above: Performed By: #### L 500.2500, L100.0100 ####[facility] [address] [place], [address] Potassium [Moles/Vol] 4.0 mmol/L Normal 3.3-5.1 [facility] Comment on above: Performed By: #### L 500.2500, L100.0100 ####[facility] [address] [place], [address] Sodium [Moles/Vol] 140 mmol/L Normal 133-145 [facility] Comment on above: Performed By: #### L 500.2500, L100.0100 ####[facility] [address] [place], [address] Urea nitrogen [Mass/Vol] 21 mg/dL High 4-19 [facility] Comment on above: Performed By: #### L 500.2500, L100.0100 ####[facility] [address] [place], [address] Basophil percentageOrdered B y: Jurojas Fragoso on 11-26-2024 Basophils/100 WBC (Bld) 0.6 % 0-1 [facility] Bedside Glucoseon 11-26-2024 FINGERSTICK GLU 104 mg/dL Normal 74-106 [facility] Comment on above: Result Comment: OSITO GEMENT OF PATIENT CARE PER NURSING PROTOCOL Performed By: #### L 501.080 ####[facility] [address] [place], [address] FINGERSTICK GLU 149 mg/dL High 74-106 [facility] Comment on above: Result Comment: OSITO GEMENT OF PATIENT CARE PER NURSING PROTOCOL Performed By: #### L 501.080 ####[facility] [address] [place], [address] FINGERSTICK GLU 103 mg/dL Normal 74-106 [facility] Comment on above: Result Comment: OSITO GEMENT OF PATIENT CARE PER NURSING PROTOCOL Performed By: #### L 501.080 ####[facility] [address] [place], [address] FINGERSTICK GLU 92 mg/dL Normal 74-106 [facility] Comment on above: Result Comment: OSITO AMES OF PATIENT CARE PER NURSING PROTOCOL Performed By: #### L 501.080 ####[facility] [address] [place], [address] CBC W/Diff, Automatedon 04-0 5-2025 Absolute Lymph 1.84 X10 3/uL Normal 0.83-4.51 [facility] Comment on above: Performed By: #### L 500.2500, L100.0100 ####[facility] [address] [place], [address] Absolute Neut 3.9 X10 3/uL Normal 2.0-7.7 [facility] Comment on above: Performed By: #### L 500.2500, L100.0100 ####[facility] [address] [place], [address] Basophils/100 WBC (Bld) 0.6 % Normal 0-1 [facility] Comment on above: Performed By: #### L 500.2500, L100.0100 ####[facility] [address] [place], [address] Eosinophils/100 WBC (Bld) 1.7 % Normal 0-5 [facility] Comment on above: Performed By: #### L 500.2500, L100.0100 ####[facility] [address] [place], [address] Erythrocyte distribution width (RBC) [Ratio] 14.5 % Normal 11.6-14.6 [facility] Comment on above: Performed By: #### L 500.2500, L100.0100 ####[facility] [address] [place], [address] Hematocrit (Bld) [Volume fraction] 26.8 % Low 40-54 [facility] Comment on above: Performed By: #### L 500.2500, L100.0100 ####[facility] [address] [place], [address] Hemoglobin (Bld) [Mass/Vol] 8.1 g/dL Low 13.0-16.5 [facility] Comment on above: Performed By: #### L 500.2500, L100.0100 ####[facility] [address] [place], [address] IG% 2.500 High 0.0-0.9 [facility] Comment on above: Result Comment: IG% - Immature Granulocytes (promyelocytes, myelocytes andmetamyelocytes) > 1% indicates that a LEFT SHIFT is Present. Performed By: #### L 500.2500, L100.0100 ####[facility] [address] [place], [address] Lymphocytes/100 WBC (Bld) 28.8 % Normal 19-41 [facility] Comment on above: Performed By: #### L 500.2500, L100.0100 ####[facility] [address] [place], [address] MCH (RBC) [Entitic mass] 26.7 pg Low 27.0-32.0 [facility] Comment on above: Performed By: #### L 500.2500, L100.0100 ####[facility] [address] [place], [address] MCHC (RBC) [Mass/Vol] 30.2 g/dL Low 32-36 [facility] Comment on above: Performed By: #### L 500.2500, L100.0100 ####[facility] [address] [place], [address] MCV (RBC) [Entitic vol] 88.4 fL Normal 80-94 [facility] Comment on above: Performed By: #### L 500.2500, L100.0100 ####[facility] [address] [place], [address] Monocytes/100 WBC (Bld) 4.5 % Normal 0-10 [facility] Comment on above: Performed By: #### L 500.2500, L100.0100 ####[facility] [address] [place], [address] Neutrophils/100 WBC (Bld) 61.9 % Normal 47-70 [facility] Comment on above: Performed By: #### L 500.2500, L100.0100 ####[facility] [address] [place], [address] Nucleated RBC (Bld) [#/Vol] 0 10*3/uL Normal 0-5 [facility] Comment on above: Performed By: #### L 500.2500, L100.0100 ####[facility] [address] [place], [address] Platelet mean volume (Bld) [Entitic vol] 13.0 fL High 6.2-12.0 [facility] Comment on above: Performed By: #### L 500.2500, L100.0100 ####[facility] [address] [place], [address] Platelets (Bld) [#/Vol] 125 10*3/uL Low 150-450 [facility] Comment on above: Performed By: #### L 500.2500, L100.0100 ####[facility] [address] [place], [address] RBC (Bld) [#/Vol] 3.03 10*6/uL Low 4.6-6.2 [facility] Comment on above: Performed By: #### L 500.2500, L100.0100 ####[facility] [address] [place], [address] RDW SD 46.5 fl High 35.1-43.9 [facility] Comment on above: Performed By: #### L 500.2500, L100.0100 ####[facility] [address] [place], [address] WBC (Bld) [#/Vol] 6.4 10*3/uL Normal 4.4-11.0 [facility] Comment on above: Performed By: #### L 500.2500, L100.0100 ####[facility] [address] [place], [address] Cardiovascular stress test r eportOrdered By: Al Barrientos on 11-26-2024 Study report [facility] [address] [facility] [place] [address] MR#: [id number] Acct: [id number] Name: ANGIE DUTTON Rep #: [id number] : 1940 84 From: Al hurtado MD Primary Care: Valery Quinteros, [employer] Stat us: ADM JERARDO Referring Dr: Mervat Anne Stress Test Report Date: 11/26/2024 Procedure: Pharmacologic stress nuclear imaging study Indications: Chest pain Consent: Per the patient Procedure: The patient underwent pharmacologic (Regadenoson) evaluation with a peak heart rate of 79 beats per minute (58%predicted maximal heart rate) and a peak blood pressure of 126/60 mmHg. The baseline ECG demonstrated normal sinus rhythm. EKG during lexiscan infusionrevealed no significant ischemic changes. EKG post infusion revealed no significant ischemic changes [There were no cardiac dysrhythmias pretest, during pharmacologic infusion, or recovery]. [There was no complaint of chest discomfort during pharmacologic infusion or recovery]. The examination was discontinued secondary to completion of protocol. Impression: 1. Lexiscan stress test test is negative for Lexiscan infusion induced EKG changes of ischemia. 2. Lexiscan stress test test is negative for Lexiscan infusion induced chest pain. 3. Results of the nuclear portion of the test is as below Myocardial perfusion imaging study: Technique: The patient was injected with 12 millicuries of technetium 99m Cardiolite and subsequently rest SPECT Cardiolite nuclear imaging was obtained in the horizontal long, vertical long, and short axis views. The patient underwent pharmacologic [Regadenoson 0.4mg] evaluation. Please see above for details. Thepatient was injected with 35.4 millicuries of technetium 99m Cardiolite and subsequently stress SPECT Cardiolite nuclear imaging was obtained in the horizontal long, vertical long, and short axis views. A gated Cardiolite study at peak stress was obtained. Interpretation: Rest and stress SPECT Cardiolite nuclear imaging status post realignment, normalization, and attenuation correction demonstrate no evidence of significantischemia. Gated images reveal no significant regional wall motion abnormalities. The reported LVEF is 61%. Impression: 1. There is no evidence of significant ischemia. 2. Estimated ejection fraction is 61%. This note was generated with Xyoation software. It may contain incorrectwords, spelling, and punctuation that were not noted in checking the note beforesigning. 11/26/24 1302 Date _ Al Barrientos MD CC: PANCHITO Quinteros; Dr. Radha Goodrich DO; Dr. Artie Palacio MD; Dr. Ju Fragoso MD ~ Date Dictated: 11/26/24 1257 Date Transcribed: 11/26/24 1257 Health Plan Advisor: ELISHA Signed [facility] Work Phone: Eosinophil percentageOrdered By: Ju Fragoso on 11-26-2024 Eosinophils/100 WBC (Bld) 1.7 % 0-5 [facility] Erythrocyte distribution wid th (RBC) [Ratio]Ordered By: Ju Fragoso on 11-26-2024 Erythrocyte distribution width (RBC) [Entitic vol] 46.5 fL High 35.1-43.9 [facility] Erythrocyte distribution wid th ratioOrdered By: Ju Fragoso on 11-26-2024 Erythrocyte distribution width (RBC) [Ratio] 14.5 % 11.6-14.6 [facility] Erythrocyte distribution wid th standard deviationOrdered By: Ju Fragoso on 11-26-2024 Erythrocyte distribution width (RBC) [Ratio] 46.5 fl High 35.1-43.9 [facility] Hematocrit Auto (Bld) [Volum e fraction]Ordered By: Ju Fragoso on 11-26-2024 Hematocrit (Bld) [Volume fraction] 26.8 % Low 40-54 [facility] Hemoglobin measurementOrdere d By: Ju Fragoso on 11-26-2024 Hemoglobin (Bld) [Mass/Vol] 8.1 g/dL Low 13.0-16.5 [facility] Immature granulocytes/100 WB C Auto (Bld)Ordered By: Ju Fragoso on 11-26-2024 Immature granulocytes/100 WBC (Bld) 2.500 % High 0.0-0.9 [facility] Comment on above: IG% - Immature Granu locytes (promyelocytes, myelocytes and metamyelocytes) > 1% indicates that a LEFT SHIFT is Present. Lymphocytes Auto (Unsp spec) [#/Vol]Ordered By: Ju Fragoso on 11-26-2024 Lymphocytes (Bld) [#/Vol] 1.84 10*3/uL 0.83-4.51 [facility] Lymphocytes/100 WBC Auto (Un sp spec)Ordered By: Ju Fragoso on 11-26-2024 Lymphocytes/100 WBC (Bld) 28.8 % 19-41 [facility] MCV (mean corpuscular volume ) determinationOrdered By: Ju Fragoso 11-26-2024 MCV (RBC) [Entitic vol] 88.4 fL 80-94 [facility] Mean corpuscular hemoglobin (MCH) determinationOrdered By: Ju Fragoso 11-26-2024 MCH (RBC) [Entitic mass] 26.7 pg Low 27.0-32.0 [facility] Mean corpuscular hemoglobin concentration (MCHC) determinationOrdered By: Ju Fragoso 11-26-2024 MCHC (RBC) [Mass/Vol] 30.2 g/dL Low 32-36 [facility] Mean platelet volume determi nationOrdered By: Ju Fragoso on 11-26-2024 Platelet mean volume (Bld) [Entitic vol] 13.0 fL High 6.2-12.0 [facility] Monocyte percentageOrdered B y: Ju Fragoso 11-26-2024 Monocytes/100 WBC (Bld) 4.5 % 0-10 [facility] Neutrophil percentageOrdered By: Ju Fragoso on 11-26-2024 Neutrophils/100 WBC (Bld) 61.9 % 47-70 [facility] Nucleated red blood cell per centageOrdered By: Ju Fragoso on 11-26-2024 Nucleated RBC/100 WBC (Bld) [Ratio] 0 % 0-5 [facility] Platelet countOrdered By: Lori Fragoso on 11-26-2024 Platelets (Bld) [#/Vol] 125 10*3/uL Low 150-450 [facility] RBC Auto (Bld) [#/Vol]Ordere d By: Ju Fragoso on 11-26-2024 RBC (Bld) [#/Vol] 3.03 10*6/uL Low 4.6-6.2 [facility] Stress Reporton 11-26-2024 Stress Report Normal [facility] White blood cell (WBC) count Ordered By: Ju Fragoso on 11-26-2024 WBC (Bld) [#/Vol] 6.4 10*3/uL 4.4-11.0 [facility] 12 Lead EKGon 11-25-2024 12 Lead EKG Normal [facility] Absolute neutrophil countOrd ered By: Radha Goodrich on 11-25-2024 Neutrophils (Bld) [#/Vol] 5.2 10*3/uL 2.0-7.7 [facility] Anion gap in Serum or Plasma Ordered By: Radha Goodrich on 11-25-2024 Anion gap [Moles/Vol] 10 mmol/L - [facility] BUN/creatinine ratioOrdered By: Radha Goodrich on 11-25-2024 Urea nitrogen/Creatinine [Mass ratio] 14.9 mg/mg - [facility] Basic Metabolic Profile (BMP )on 11-25-2024 BUN/CRE 14.9 RATIO Normal - [facility] Comment on above: Performed By: #### L 501.4021, L100.0100, L500.2500 ####[facility] [address] [place], [place], [id number] Calcium [Mass/Vol] 9.2 mg/dL Normal 7.6-11.0 [facility] Comment on above: Performed By: #### L 501.4021, L100.0100, L500.2500 ####[facility] [address] [place], [address] Chloride [Moles/Vol] 102 mmol/L Normal 98-108 [facility] Comment on above: Performed By: #### L 501.4021, L100.0100, L500.2500 ####[facility] [address] [place], [address] CO2 [Moles/Vol] 25.1 mmol/L Normal 21.0-32.0 [facility] Comment on above: Performed By: #### L 501.4021, L100.0100, L500.2500 ####[facility] [address] [place], [address] Creatinine [Mass/Vol] 1.34 mg/dL High 0.70-1.20 [facility] Comment on above: Performed By: #### L 501.4021, L100.0100, L500.2500 ####[facility] [address] [place], [address] ECRCL 38.28 ml/min Low 50-250 [facility] Comment on above: Performed By: #### L 501.4021, L100.0100, L500.2500 ####[facility] [address] [place], [address] GAP 10 Normal 5-15 [facility] Comment on above: Performed By: #### L 501.4021, L100.0100, L500.2500 ####[facility] [address] [place], [address] GFR/1.73 sq M.predicted among non-blacks MDRD (S/P/Bld) [Vol rate/Area] 52 mL/min/{1.73_m2} Low >60 [facility] Comment on above: Result Comment: mL/m in/1.73m2 CKD-EPI Creatinine Equation (2020) Performed By: #### L 501.4021, L100.0100, L500.2500 ####[facility] [address] [place], [address] Glucose [Mass/Vol] 112 mg/dL High 70-99 [facility] Comment on above: Performed By: #### L 501.4021, L100.0100, L500.2500 ####[facility] [address] [place], [address] Potassium [Moles/Vol] 5.4 mmol/L High 3.3-5.1 [facility] Comment on above: Performed By: #### L 501.4021, L100.0100, L500.2500 ####[facility] [address] [place], [address] Sodium [Moles/Vol] 137 mmol/L Normal 133-145 [facility] Comment on above: Performed By: #### L 501.4021, L100.0100, L500.2500 ####[facility] [address] [place], [address] Urea nitrogen [Mass/Vol] 20 mg/dL High 4-19 [facility] Comment on above: Performed By: #### L 501.4021, L100.0100, L500.2500 ####[facility] [address] [place], [address] Basophil percentageOrdered B y: Radha Goodrich on 11-25-2024 Basophils/100 WBC (Bld) 0.5 % 0-1 [facility] Bedside Glucoseon 11-25-2024 FINGERSTICK GLU 116 mg/dL High 74-106 [facility] Comment on above: Result Comment: OSITO AMES OF PATIENT CARE PER NURSING PROTOCOL Performed By: #### L 501.080 ####[facility] [address] [place], [address] CBC W/Diff, Automatedon 04-0 4-5 Absolute Lymph 2.11 X10 3/uL Normal 0.83-4.51 [facility] Comment on above: Performed By: #### L 501.4021, L100.0100, L500.2500 ####[facility] [address] [place], [address] Absolute Neut 5.2 X10 3/uL Normal 2.0-7.7 [facility] Comment on above: Performed By: #### L 501.4021, L100.0100, L500.2500 ####[facility] [address] [place], [address] Basophils/100 WBC (Bld) 0.5 % Normal 0-1 [facility] Comment on above: Performed By: #### L 501.4021, L100.0100, L500.2500 ####[facility] [address] [place], [address] Eosinophils/100 WBC (Bld) 1.1 % Normal 0-5 [facility] Comment on above: Performed By: #### L 501.4021, L100.0100, L500.2500 ####[facility] [address] [place], [address] Erythrocyte distribution width (RBC) [Ratio] 14.5 % Normal 11.6-14.6 [facility] Comment on above: Performed By: #### L 501.4021, L100.0100, L500.2500 ####[facility] [address] [place], [address] Hematocrit (Bld) [Volume fraction] 29.0 % Low 40-54 [facility] Comment on above: Performed By: #### L 501.4021, L100.0100, L500.2500 ####[facility] [address] [place], [address] Hemoglobin (Bld) [Mass/Vol] 8.7 g/dL Low 13.0-16.5 [facility] Comment on above: Performed By: #### L 501.4021, L100.0100, L500.2500 ####[facility] [address] [place], [address] IG% 3.600 High 0.0-0.9 [facility] Comment on above: Result Comment: IG% - Immature Granulocytes (promyelocytes, myelocytes andmetamyelocytes) > 1% indicates that a LEFT SHIFT is Present. Performed By: #### L 501.4021, L100.0100, L500.2500 ####[facility] [address] [place], [address] Lymphocytes/100 WBC (Bld) 26.1 % Normal 19-41 [facility] Comment on above: Performed By: #### L 501.4021, L100.0100, L500.2500 ####[facility] [address] [place], [address] MCH (RBC) [Entitic mass] 26.9 pg Low 27.0-32.0 [facility] Comment on above: Performed By: #### L 501.4021, L100.0100, L500.2500 ####[facility] [address] [place], [address] MCHC (RBC) [Mass/Vol] 30.0 g/dL Low 32-36 [facility] Comment on above: Performed By: #### L 501.4021, L100.0100, L500.2500 ####[facility] [address] [place], [address] MCV (RBC) [Entitic vol] 89.8 fL Normal 80-94 [facility] Comment on above: Performed By: #### L 501.4021, L100.0100, L500.2500 ####[facility] [address] [place], [address] Monocytes/100 WBC (Bld) 4.0 % Normal 0-10 [facility] Comment on above: Performed By: #### L 501.4021, L100.0100, L500.2500 ####[facility] [facility] [address] [place], [address] Neutrophils/100 WBC (Bld) 64.7 % Normal 47-70 [facility] Comment on above: Performed By: #### L 501.4021, L100.0100, L500.2500 ####[facility] [address] [place], [address] Nucleated RBC (Bld) [#/Vol] 0 10*3/uL Normal 0-5 [facility] Comment on above: Performed By: #### L 501.4021, L100.0100, L500.2500 ####[facility] [address] [place], [address] Platelet mean volume (Bld) [Entitic vol] 12.9 fL High 6.2-12.0 [facility] Comment on above: Performed By: #### L 501.4021, L100.0100, L500.2500 ####[facility] [address] [place], [address] Platelets (Bld) [#/Vol] 158 10*3/uL Normal 150-450 [facility] Comment on above: Performed By: #### L 501.4021, L100.0100, L500.2500 ####[facility] [address] [place], [address] RBC (Bld) [#/Vol] 3.23 10*6/uL Low 4.6-6.2 [facility] Comment on above: Performed By: #### L 501.4021, L100.0100, L500.2500 ####[facility] [address] [place], [address] RDW SD 47.2 fl High 35.1-43.9 [facility] Comment on above: Performed By: #### L 501.4021, L100.0100, L500.2500 ####[facility] [address] [place], [address] WBC (Bld) [#/Vol] 8.1 10*3/uL Normal 4.4-11.0 [facility] Comment on above: Performed By: #### L 501.4021, L100.0100, L500.2500 ####[facility] [address] [place], [address] Carbon dioxide, total [Moles /volume] in Central venous bloodOrdered By: Radha Goodrich on 11-25-2024 CO2 [Moles/Vol] 25.1 mmol/L 21.0-32.0 [facility] Chest PA and Lateralon 11-25 Chest PA and Lateral Normal [facility] Chloride assayOrdered By: Akhil Goodrich on 11-25-2024 Chloride [Moles/Vol] 102 mmol/L 98-108 [facility] Emergency Department Summary on 11-25-2024 Emergency Department Summary Normal [facility] Eosinophil percentageOrdered By: Radha Goodrich on 11-25-2024 Eosinophils/100 WBC (Bld) 1.1 % 0-5 [facility] Erythrocyte distribution wid th (RBC) [Ratio]Ordered By: Radha Goodrich on 11-25-2024 Erythrocyte distribution width (RBC) [Entitic vol] 47.2 fL High 35.1-43.9 [facility] Erythrocyte distribution wid th ratioOrdered By: Radha Goodrich on 11-25-2024 Erythrocyte distribution width (RBC) [Ratio] 14.5 % 11.6-14.6 [facility] Estimation of creatinine ed aranceOrdered By: Radha Goodrich on 11-25-2024 Estimated Creatinine Clearance Calc 38.28 ml/min Low 50-250 [facility] GFR/1.73 sq M.predicted fermin g non-blacks MDRD (S/P/Bld) [Vol rate/Area]Ordered By: Radha Goodrich on 11-25-2024 Estimated GFR (MDRD) Non-Af Amer 52 Low >60 [facility] Comment on above: mL/min/1.73m2 CKD-EP I Creatinine Equation (2020) H AND P Exam - [facility] 11-25-2024 H&P Exam - Hospitalist Normal [facility] Hematocrit Auto (Bld) [Volum e fraction]Ordered By: Radha Goodrich on 11-25-2024 Hematocrit (Bld) [Volume fraction] 29.0 % Low 40-54 [facility] Hemoglobin measurementOrdere d By: Radha Goodrich on 11-25-2024 Hemoglobin (Bld) [Mass/Vol] 8.7 g/dL Low 13.0-16.5 [facility] Immature granulocytes/100 WB C Auto (Bld)Ordered By: Radha Goodrich on 11-25-2024 Immature granulocytes/100 WBC (Bld) 3.600 % High 0.0-0.9 [facility] Comment on above: IG% - Immature Granu locytes (promyelocytes, myelocytes and metamyelocytes) > 1% indicates that a LEFT SHIFT is Present. L499.0042on 11-25-2024 Trop T High Sen 60 ng/L Invalid Interpretation Code <=22 [facility] Comment on above: Result Comment: Crit ical Result(s) Called ESTELLE at: 1648 by:PRIMO??Results read back by same.Critical Result(s) Called at: by:??Results read back bysame. AMENDED REPORT 11/25/24 1704 Trop T HS 2HR previously reported as: 60 *H ng/LCritical Result(s) Called ESTELLE at: 1648 by:PRIMO??Results read back by same. Performed By: #### L 499.0042 ####[facility] [address] [place], [address] L499.0043on 11-25-2024 Trop T High Sen 59 ng/L Invalid Interpretation Code <=22 [facility] Comment on above: Result Comment: Crit ical Result(s) Called AFLICKINGER at: 0 by:PRIMO??Results read back by same. Performed By: #### L 499.0043 ####[facility] [address] [place], [address] Trop T High Sen 60 ng/L Invalid Interpretation Code <=22 [facility] Comment on above: Result Comment: CRIT ICAL RESULT CALLED DCORPORAL AT 2027 BY PRIMO.RESULTS READ BACK BY SAME. Performed By: #### L 499.0043 ####[facility] [address] [place], [address] L501.4021on 11-25-2024 Trop T High Sen 59 ng/L Invalid Interpretation Code <=22 [facility] Comment on above: Result Comment: Crit ical Result(s) Called at 1521: TO AMYERS by:KCLAPPER??Results read back by same. Performed By: #### L 501.4021, L100.0100, L500.2500 ####[facility] [address] [place], [address] Trop T High Sen 61 ng/L Invalid Interpretation Code <=22 [facility] Comment on above: Result Comment: Crit ical Result(s) Called at 1336: TO BRIANILEY by:KCLAPPER??Results read back by same. Performed By: #### L 501.4021 ####[facility] [address] [place], [address] L503.7505on 11-25-2024 Natriuretic peptide B (Bld) [Mass/Vol] 4740 pg/mL High <=1800 [facility] Comment on above: Result Comment: Hear t Failure Unlikely: < 300 pg/mLHeart Failure Likely< 50 Years: > 450 pg/mL50-75 Years: > 900 pg/mL>75 Years: > 1800 pg/mL Performed By: #### L 503.7505 ####[facility] [address] [place], [address] Lymphocytes Auto (Unsp spec) [#/Vol]Ordered By: Radha Goodrich on 11-25-2024 Lymphocytes (Bld) [#/Vol] 2.11 10*3/uL 0.83-4.51 [facility] Lymphocytes/100 WBC Auto (Un sp spec)Ordered By: Radha Goodrich on 11-25-2024 Lymphocytes/100 WBC (Bld) 26.1 % 19-41 [facility] MCV (mean corpuscular volume ) determinationOrdered By: Radha Goodrich on 11-25-2024 MCV (RBC) [Entitic vol] 89.8 fL 80-94 [facility] Mean corpuscular hemoglobin (MCH) determinationOrdered By: Radha Goodrich on 11-25-2024 MCH (RBC) [Entitic mass] 26.9 pg Low 27.0-32.0 [facility] Mean corpuscular hemoglobin concentration (MCHC) determinationOrdered By: Radha Goodrich on 11-25-2024 MCHC (RBC) [Mass/Vol] 30.0 g/dL Low 32-36 [facility] Mean platelet volume determi nationOrdered By: Radha Goodrich 11-25-2024 Platelet mean volume (Bld) [Entitic vol] 12.9 fL High 6.2-12.0 [facility] Monocyte percentageOrdered B y: Radha Goodrich on 11-25-2024 Monocytes/100 WBC (Bld) 4.0 % 0-10 [facility] Natriuretic peptide.B prohor shanti N-Terminal [Mass/Vol]Ordered By: Radha Goodrich on 11-25-2024 Natriuretic peptide B (Bld) [Mass/Vol] 4740 pg/mL High <1800 [facility] Comment on above: Heart Failure Unlike ly: < 300 pg/mLHeart Failure Likely< 50 Years: > 450 pg/mL50-75 Years: > 900 pg/mL>75 Years: > 1800 pg/mL Natriuretic peptide.B prohor shanti N-Terminal [Mass/volume] in Serum or PlasmaOrdered By: Radha Goodrich on 11-25-2024 Natriuretic peptide.B prohormone N-Terminal [Mass/Vol] 4740 pg/mL High <1800 [facility] Comment on above: Heart Failure Unlike ly: < 300 pg/mLHeart Failure Likely< 50 Years: > 450 pg/mL50-75 Years: > 900 pg/mL>75 Years: > 1800 pg/mL Neutrophil percentageOrdered By: Radha Goodrich on 11-25-2024 Neutrophils/100 WBC (Bld) 64.7 % 47-70 [facility] Nucleated red blood cell per centageOrdered By: Radha Goodrich on 11-25-2024 Nucleated RBC/100 WBC (Bld) [Ratio] 0 % 0-5 [facility] Platelet countOrdered By: Akhil Goodrich on 11-25-2024 Platelets (Bld) [#/Vol] 158 10*3/uL 150-450 [facility] Potassium (Unsp spec) [Mass/ Vol]Ordered By: Radha Goodrich on 11-25-2024 Potassium [Moles/Vol] 5.4 mmol/L High 3.3-5.1 [facility] RBC Auto (Bld) [#/Vol]Ordere d By: Radha Goodrich on 11-25-2024 RBC (Bld) [#/Vol] 3.23 10*6/uL Low 4.6-6.2 [facility] Serum creatinine measurement (mass/volume)Ordered By: Radha Goodrich on 11-25-2024 Creatinine [Mass/Vol] 1.34 mg/dL High 0.70-1.20 [facility] Serum glucose measurement (m ass/volume)Ordered By: Radha Goodrich on 11-25-2024 Glucose [Mass/Vol] 112 mg/dL High 70-99 [facility] Serum or plasma calcium kim urement (mass/volume)Ordered By: Radha Goodrich on 11-25-2024 Calcium [Mass/Vol] 9.2 mg/dL 7.6-11.0 [facility] Serum or plasma urea nitroge n measurement (mass/volume)Ordered By: Radha Goodrich on 11-25-2024 Urea nitrogen [Mass/Vol] 20 mg/dL High 4-19 [facility] Sodium levelOrdered By: Nathanael Goodrich on 11-25-2024 Sodium [Moles/Vol] 137 mmol/L 133-145 [facility] Troponin T.cardiac High sens itivity method [Mass/Vol]Ordered By: Ana Hamilton on 11-25-2024 Troponin T High Sensitivity 61 ng/L High <22 [facility] Comment on above: Critical Result(s) C alled at 1336: TO CBAILEY by: KCLAPPER Results read back by same. Troponin T.cardiac High sens itivity method [Mass/Vol]Ordered By: Ju Fragoso on 11-25-2024 Troponin T High Sensitivity 4 Hour 59 ng/L High <22 [facility] Comment on above: Critical Result(s) C alled AFLICKINGER at: 2110 by: PRIMO Results read back by same. Troponin T.cardiac High sens itivity method [Mass/Vol]Ordered By: Radha Goodrich on 11-25-2024 Troponin T High Sensitivity 2 Hour 60 ng/L High <22 [facility] Comment on above: Critical Result(s) C alled AMYERS at: 1648 by: PRIMO Results read back by same. Critical Result(s) Called at: by: Results read back by same.Previous reported result: 60 ng/LEdited by: ARABELLA on 11/25/24:1704 AMENDED REPORT 11/25/24 1704 Trop T HS 2HR previously reported as: 60 *H ng/L Critical Result(s) Called AMYERS at: 1648 by: PRIMO Results read back by same. Troponin T High Sensitivity 59 ng/L High <22 [facility] Comment on above: Critical Result(s) C alled at 1521: TO AMYERS by: KACYAPPER Results read back by same. Troponin T.cardiac [Mass/vol ume] in Serum or Plasma by High sensitivity methodOrdered By: Ana Hamilton on 11-25-2024 Troponin T.cardiac High sensitivity method [Mass/Vol] 61 ng/L High <22 [facility] Comment on above: Critical Result(s) C alled at 1336: TO CBAILEY by: KCLAPPER Results read back by same. Troponin T.cardiac [Mass/vol ume] in Serum or Plasma by High sensitivity methodOrdered By: Ju Fragoso on 11-25-2024 Troponin T.cardiac High sensitivity method [Mass/Vol] 59 ng/L High <22 [facility] Comment on above: Critical Result(s) C jose miguel MARTINEZ at: 2110 by: PRIMO Results read back by same. Troponin T.cardiac [Mass/vol ume] in Serum or Plasma by High sensitivity methodOrdered By: Radha Goodrich on 11-25-2024 Troponin T.cardiac High sensitivity method [Mass/Vol] 60 ng/L High <22 [facility] Comment on above: Critical Result(s) C conradod ESTELLE at: 1648 by: PRIMO Results read back by same. Critical Result(s) Called at: by: Results read back by same.Previous reported result: 60 ng/LEdited by: ARABELLA on 11/25/24:1704 AMENDED REPORT 11/25/24 1704 Trop T HS 2HR previously reported as: 60 *H ng/L Critical Result(s) Called ESTELLE at: 1648 by: PRIMO Results read back by same. Troponin T.cardiac High sensitivity method [Mass/Vol] 59 ng/L High <22 [facility] Comment on above: Critical Result(s) C jose miguel at 1521: TO ESTELLE by: MAREK Results read back by same. White blood cell (WBC) count Ordered By: Radha Goodrich on 11-25-2024 WBC (Bld) [#/Vol] 8.1 10*3/uL 4.4-11.0 [facility] Anion gap in Serum or Plasma Ordered By: Ana Hamilton on 11-21-2024 Anion gap [Moles/Vol] 13 mmol/L - [facility] BUN/creatinine ratioOrdered By: Ana Hamilton on 11-21-2024 Urea nitrogen/Creatinine [Mass ratio] 11.2 mg/mg - [facility] Basic Metabolic Profile (BMP )on 11-21-2024 BUN/CRE 11.2 RATIO Normal 06-12 [facility] Comment on above: Order Comment: 211 Performed By: #### L 500.2500 ####[facility] [address] [place], [address] Calcium [Mass/Vol] 8.7 mg/dL Normal 7.6-11.0 [facility] Comment on above: Order Comment: 211 Performed By: #### L 500.2500 ####[facility] [address] [place], [address] Chloride [Moles/Vol] 100 mmol/L Normal 98-108 [facility] Comment on above: Order Comment: 211 Performed By: #### L 500.2500 ####[facility] [address] [place], [address] CO2 [Moles/Vol] 22.4 mmol/L Normal 21.0-32.0 [facility] Comment on above: Order Comment: 211 Performed By: #### L 500.2500 ####[facility] [address] [place], [address] Creatinine [Mass/Vol] 1.30 mg/dL High 0.70-1.20 [facility] Comment on above: Order Comment: 211 Performed By: #### L 500.2500 ####[facility] [address] [place], [address] GAP 13 Normal 5-15 [facility] Comment on above: Order Comment: 211 Performed By: #### L 500.2500 ####[facility] [address] [place], [address] GFR/1.73 sq M.predicted among non-blacks MDRD (S/P/Bld) [Vol rate/Area] 54 mL/min/{1.73_m2} Low >60 [facility] Comment on above: Order Comment: 211 Result Comment: mL/m in/1.73m2 CKD-EPI Creatinine Equation (2020) Performed By: #### L 500.2500 ####[facility] [address] [place], [address] Glucose [Mass/Vol] 93 mg/dL Normal 70-99 [facility] Comment on above: Order Comment: 211 Performed By: #### L 500.2500 ####[facility] [address] [place], [address] Potassium [Moles/Vol] 4.7 mmol/L Normal 3.3-5.1 [facility] Comment on above: Order Comment: 211 Performed By: #### L 500.2500 ####[facility] [address] [place], [address] Sodium [Moles/Vol] 135 mmol/L Normal 133-145 [facility] Comment on above: Order Comment: 211 Performed By: #### L 500.2500 ####[facility] [address] [place], [address] Urea nitrogen [Mass/Vol] 15 mg/dL Normal 4-19 [facility] Comment on above: Order Comment: 211 Performed By: #### L 500.2500 ####[facility] [address] [place], [address] CNOVSPon 11-21-2024 CNOVSP Normal [facility] Carbon dioxide, total [Moles /volume] in Central venous bloodOrdered By: Ana Hamilton on 11-21-2024 CO2 [Moles/Vol] 22.4 mmol/L 21.0-32.0 [facility] Chloride assayOrdered By: Lv Hamilton on 11-21-2024 Chloride [Moles/Vol] 100 mmol/L 98-108 [facility] GFR/1.73 sq M.predicted fermin g non-blacks MDRD (S/P/Bld) [Vol rate/Area]Ordered By: Ana Hamilton on 11-21-2024 Estimated GFR (MDRD) Non-Af Amer 54 Low >60 [facility] Comment on above: mL/min/1.73m2 CKD-EP I Creatinine Equation (2020) Glomerular filtration rate ( GFR) estimation/1.73 sq m using serum, plasma, or whole bOrdered By: Ana Hamilton on 11-21-2024 GFR/1.73 sq M.predicted among non-blacks MDRD (S/P/Bld) [Vol rate/Area] 54 mL/min/{1.73_m2} Low >60 [facility] Comment on above: mL/min/1.73m2 CKD-EP I Creatinine Equation (2020) Potassium (Unsp spec) [Mass/ Vol]Ordered By: Ana Hamilton on 11-21-2024 Potassium [Moles/Vol] 4.7 mmol/L 3.3-5.1 [facility] Potassium measurement (mass/ volume)Ordered By: Ana Hamilton on 11-21-2024 Potassium (Unsp spec) [Mass/Vol] 4.7 mmol/L 3.3-5.1 [facility] Serum creatinine measurement (mass/volume)Ordered By: Ana Hamilton on 11-21-2024 Creatinine [Mass/Vol] 1.30 mg/dL High 0.70-1.20 [facility] Serum glucose measurement (m ass/volume)Ordered By: Ana Hamilton on 11-21-2024 Glucose [Mass/Vol] 93 mg/dL 70-99 [facility] Serum or plasma calcium kim urement (mass/volume)Ordered By: Ana Hamilton on 11-21-2024 Calcium [Mass/Vol] 8.7 mg/dL 7.6-11.0 [facility] Serum or plasma urea nitroge n measurement (mass/volume)Ordered By: Ana Hmailton on 11-21-2024 Urea nitrogen [Mass/Vol] 15 mg/dL 4-19 [facility] Sodium levelOrdered By: Shari Hamilton on 11-21-2024 Sodium [Moles/Vol] 135 mmol/L 133-145 [facility] CNOVon 11-18-2024 CNOV Normal [facility] Absolute lymphocyte countOrd ered By: Ana Hamilton on 11-16-2024 Lymphocytes Auto (Unsp spec) [#/Vol] 0.86 10*3/uL 0.83-4.51 [facility] Absolute neutrophil countOrd ered By: Ana Hamilton on 11-16-2024 Neutrophils (Bld) [#/Vol] 3.3 10*3/uL 2.0-7.7 [facility] Automated lymphocyte count a s percentage of total leukocytesOrdered By: Ana Hamilton on 11-16-2024 Lymphocytes/100 WBC Auto (Unsp spec) 18.9 % Low 19-41 [facility] Basic Metabolic Profile (BMP )on 11-16-2024 BUN Normal 4-19 [facility] Comment on above: Result Comment: Canc elled via OM: Order cancelled - Patient discharged Performed By: #### L 100.0100, L500.2500 ####[facility] [address] [place], [address] BUN/CRE Normal 10-20 [facility] Comment on above: Result Comment: Canc elled via OM: Order cancelled - Patient discharged Performed By: #### L 100.0100, L500.2500 ####[facility] [address] [place], [address] Calcium Normal 7.6-11.0 [facility] Comment on above: Result Comment: Canc elled via OM: Order cancelled - Patient discharged Performed By: #### L 100.0100, L500.2500 ####[facility] [address] [place], [address] CL Normal 98-108 [facility] Comment on above: Result Comment: Canc elled via OM: Order cancelled - Patient discharged Performed By: #### L 100.0100, L500.2500 ####[facility] [address] [place], [address] CO2 Normal 21.0-32.0 [facility] Comment on above: Result Comment: Canc elled via OM: Order cancelled - Patient discharged Performed By: #### L 100.0100, L500.2500 ####[facility] [address] [place], [address] CREAT,SERUM Normal 0.70-1.20 [facility] Comment on above: Result Comment: Canc elled via OM: Order cancelled - Patient discharged Performed By: #### L 100.0100, L500.2500 ####[facility] [address] [place], [address] eGFR Normal >60 [facility] Comment on above: Result Comment: Canc elled via OM: Order cancelled - Patient discharged Performed By: #### L 100.0100, L500.2500 ####[facility] [address] [place], [address] GAP Normal 5-15 [facility] Comment on above: Result Comment: Canc elled via OM: Order cancelled - Patient discharged Performed By: #### L 100.0100, L500.2500 ####[facility] [address] [place], [address] GLU Normal 70-99 [facility] Comment on above: Result Comment: Canc elled via OM: Order cancelled - Patient discharged Performed By: #### L 100.0100, L500.2500 ####[facility] [address] [place], [address] Potassium Normal 3.3-5.1 [facility] Comment on above: Result Comment: Canc elled via OM: Order cancelled - Patient discharged Performed By: #### L 100.0100, L500.2500 ####[facility] [address] [place], [address] Basic Metabolic Profile (BMP) Normal 133-145 [facility] Comment on above: Result Comment: Canc elled via OM: Order cancelled - Patient discharged Performed By: #### L 100.0100, L500.2500 ####[facility] [address] [place], [address] Basophil percentageOrdered B y: Ana Hamilton on 11-16-2024 Basophils/100 WBC (Bld) 0.4 % 0-1 [facility] CBC W/Diff, Automatedon 03-2 Absolute Lymph 0.86 X10 3/uL Normal 0.83-4.51 [facility] Comment on above: Order Comment: 211.1 Performed By: #### L 503.6550, L503.6030, L100.0100 ####[facility] [address] [place], [address] Absolute Neut 3.3 X10 3/uL Normal 2.0-7.7 [facility] Comment on above: Order Comment: 211.1 Performed By: #### L 503.6550, L503.6030, L100.0100 ####[facility] [address] [place], [address] Basophils/100 WBC (Bld) 0.4 % Normal 0-1 [facility] Comment on above: Order Comment: 211.1 Performed By: #### L 503.6550, L503.6030, L100.0100 ####[facility] [address] [place], [address] Eosinophils/100 WBC (Bld) 4.0 % Normal 0-5 [facility] Comment on above: Order Comment: 211.1 Performed By: #### L 503.6550, L503.6030, L100.0100 ####[facility] [address] [place], [address] Erythrocyte distribution width (RBC) [Ratio] 14.8 % High 11.6-14.6 [facility] Comment on above: Order Comment: 211.1 Performed By: #### L 503.6550, L503.6030, L100.0100 ####[facility] [address] [place], [address] Hematocrit (Bld) [Volume fraction] 29.9 % Low 40-54 [facility] Comment on above: Order Comment: 211.1 Performed By: #### L 503.6550, L503.6030, L100.0100 ####[facility] [address] [place], [address] Hemoglobin (Bld) [Mass/Vol] 9.0 g/dL Low 13.0-16.5 [facility] Comment on above: Order Comment: 211.1 Performed By: #### L 503.6550, L503.6030, L100.0100 ####[facility] [address] [place], [address] IG% 0.700 Normal 0.0-0.9 [facility] Comment on above: Order Comment: 211.1 Result Comment: IG% - Immature Granulocytes (promyelocytes, myelocytes andmetamyelocytes) > 1% indicates that a LEFT SHIFT is Present. Performed By: #### L 503.6550, L503.6030, L100.0100 ####[facility] [address] [place], [address] Lymphocytes/100 WBC (Bld) 18.9 % Low 19-41 [facility] Comment on above: Order Comment: 211.1 Performed By: #### L 503.6550, L503.6030, L100.0100 ####[facility] [address] [place], [address] MCH (RBC) [Entitic mass] 27.5 pg Normal 27.0-32.0 [facility] Comment on above: Order Comment: 211.1 Performed By: #### L 503.6550, L503.6030, L100.0100 ####[facility] [address] [place], [address] MCHC (RBC) [Mass/Vol] 30.1 g/dL Low 32-36 [facility] Comment on above: Order Comment: 211.1 Performed By: #### L 503.6550, L503.6030, L100.0100 ####[facility] [address] [place], [address] MCV (RBC) [Entitic vol] 91.4 fL Normal 80-94 [facility] Comment on above: Order Comment: 211.1 Performed By: #### L 503.6550, L503.6030, L100.0100 ####[facility] [address] [place], [address] Monocytes/100 WBC (Bld) 3.3 % Normal 0-10 [facility] Comment on above: Order Comment: 211.1 Performed By: #### L 503.6550, L503.6030, L100.0100 ####[facility] [address] [place], [address] Neutrophils/100 WBC (Bld) 72.7 % High 47-70 [facility] Comment on above: Order Comment: 211.1 Performed By: #### L 503.6550, L503.6030, L100.0100 ####[facility] [address] [place], [address] Nucleated RBC (Bld) [#/Vol] 0 10*3/uL Normal 0-5 [facility] Comment on above: Order Comment: 211.1 Performed By: #### L 503.6550, L503.6030, L100.0100 ####[facility] [address] [place], [address] Platelet mean volume (Bld) [Entitic vol] 11.9 fL Normal 6.2-12.0 [facility] Comment on above: Order Comment: 211.1 Performed By: #### L 503.6550, L503.6030, L100.0100 ####[facility] [address] [place], [address] Platelets (Bld) [#/Vol] 222 10*3/uL Normal 150-450 [facility] Comment on above: Order Comment: 211.1 Performed By: #### L 503.6550, L503.6030, L100.0100 ####[facility] [address] [place], [address] RBC (Bld) [#/Vol] 3.27 10*6/uL Low 4.6-6.2 [facility] Comment on above: Order Comment: 211.1 Performed By: #### L 503.6550, L503.6030, L100.0100 ####[facility] [address] [place], [address] RDW SD 49.9 fl High 35.1-43.9 [facility] Comment on above: Order Comment: 211.1 Performed By: #### L 503.6550, L503.6030, L100.0100 ####[facility] [address] [place], [address] WBC (Bld) [#/Vol] 4.6 10*3/uL Normal 4.4-11.0 [facility] Comment on above: Order Comment: 211.1 Performed By: #### L 503.6550, L503.6030, L100.0100 ####[facility] [address] [place], [address] Absolute Neut Normal 2.0-7.7 [facility] Comment on above: Result Comment: Canc elled via OM: Order cancelled - Patient discharged Performed By: #### L 100.0100, L500.2500 ####[facility] [address] [place], [address] HCT Normal 40-54 [facility] Comment on above: Result Comment: Canc elled via OM: Order cancelled - Patient discharged Performed By: #### L 100.0100, L500.2500 ####[facility] [address] [place], [address] HGB Normal 13.0-16.5 [facility] Comment on above: Result Comment: Canc elled via OM: Order cancelled - Patient discharged Performed By: #### L 100.0100, L500.2500 ####[facility] [address] [place], [address] MCH Normal 27.0-32.0 [facility] Comment on above: Result Comment: Canc elled via OM: Order cancelled - Patient discharged Performed By: #### L 100.0100, L500.2500 ####[facility] [address] [place], [address] MCHC Normal 32-36 [facility] Comment on above: Result Comment: Canc elled via OM: Order cancelled - Patient discharged Performed By: #### L 100.0100, L500.2500 ####[facility] [address] [place], [address] MCV Normal 80-94 [facility] Comment on above: Result Comment: Canc elled via OM: Order cancelled - Patient discharged Performed By: #### L 100.0100, L500.2500 ####[facility] [address] [place], [address] NEUT% Normal 47-70 [facility] Comment on above: Result Comment: Canc elled via OM: Order cancelled - Patient discharged Performed By: #### L 100.0100, L500.2500 ####[facility] [address] [place], [address] PLT Normal 150-450 [facility] Comment on above: Result Comment: Canc elled via OM: Order cancelled - Patient discharged Performed By: #### L 100.0100, L500.2500 ####[facility] [address] [place], [address] RBC Normal 4.6-6.2 [facility] Comment on above: Result Comment: Canc elled via OM: Order cancelled - Patient discharged Performed By: #### L 100.0100, L500.2500 ####[facility] [address] [place], [address] RDW CV Normal 11.6-14.6 [facility] Comment on above: Result Comment: Canc elled via OM: Order cancelled - Patient discharged Performed By: #### L 100.0100, L500.2500 ####[facility] [address] [place], [address] RDW SD Normal 35.1-43.9 [facility] Comment on above: Result Comment: Canc elled via OM: Order cancelled - Patient discharged Performed By: #### L 100.0100, L500.2500 ####[facility] [address] [place], [address] WBC Normal 4.4-11.0 [facility] Comment on above: Result Comment: Canc elled via OM: Order cancelled - Patient discharged Performed By: #### L 100.0100, L500.2500 ####[facility] [address] [place], [address] Calculated total iron bindin g capacityOrdered By: Ana Hamilton on 11-16-2024 Total Iron Binding Capacity 194 ug/dL Low 250-450 [facility] Culture, Blood (WB)on 2024 CUB [phone] FAX No growth in 5 days. Normal [facility] Comment on above: Performed By: #### M 200.1000 ####[facility] [address] [place], [address] Eosinophil percentageOrdered By: Ana Hamilton on 11-16-2024 Eosinophils/100 WBC (Bld) 4.0 % 0-5 [facility] Erythrocyte distribution wid th ratioOrdered By: Ana Hamilton on 11-16-2024 Erythrocyte distribution width (RBC) [Ratio] 14.8 % High 11.6-14.6 [facility] Erythrocyte distribution wid th standard deviationOrdered By: Ana Hamilton on 11-16-2024 Erythrocyte distribution width (RBC) [Entitic vol] 49.9 fL High 35.1-43.9 [facility] Erythrocyte distribution width (RBC) [Ratio] 49.9 fl High 35.1-43.9 [facility] Ferritinon 11-16-2024 Ferritin [Mass/Vol] 340 ng/mL Normal 37-417 [facility] Comment on above: Order Comment: 211.1 Performed By: #### L 503.6550, L503.6030, L100.0100 ####[facility] [address] [place], [address] Hematocrit Auto (Bld) [Volum e fraction]Ordered By: Ana Hamilton on 11-16-2024 Hematocrit (Bld) [Volume fraction] 29.9 % Low 40-54 [facility] Hemoglobin measurementOrdere d By: Ana Hamilton on 11-16-2024 Hemoglobin (Bld) [Mass/Vol] 9.0 g/dL Low 13.0-16.5 [facility] Immature granulocytes/100 WB C Auto (Bld)Ordered By: Ana Hamilton on 11-16-2024 Immature granulocytes/100 WBC (Bld) 0.700 % 0.0-0.9 [facility] Comment on above: IG% - Immature Granu locytes (promyelocytes, myelocytes and metamyelocytes) > 1% indicates that a LEFT SHIFT is Present. Iron (Unsp spec) [Mass/Mass] Ordered By: Ana Hamilton on 11-16-2024 Iron [Mass/Vol] 14 ug/dL Low 65-175 [facility] Iron measurement (mass/mass) Ordered By: Ana Hamilton on 11-16-2024 Iron (Unsp spec) [Mass/Mass] 14 ug/dL Low 65-175 [facility] Iron saturation [Mass fracti on]Ordered By: Ana Hamilton on 11-16-2024 Iron Saturation 7.2 % Low 9-55 [facility] Comment on above: Previous reported re sult: 7.0 %Edited by: NAVA on 11/16/24:0945 AMENDED REPORT 11/16/24 0945 IRON SATURATION previously reported as: 7.0 L % Iron+Iron Binding Capacityon 11-16-2024 TIBC 194 ug/dL Low 250-450 [facility] Comment on above: Order Comment: 211.1 Performed By: #### L 503.6550, L503.6030, L100.0100 ####[facility] [address] [place], [address] Lymphocytes Auto (Unsp spec) [#/Vol]Ordered By: Ana Hamilton on 11-16-2024 Lymphocytes (Bld) [#/Vol] 0.86 10*3/uL 0.83-4.51 [facility] Lymphocytes/100 WBC Auto (Un sp spec)Ordered By: Ana Hamilton on 11-16-2024 Lymphocytes/100 WBC (Bld) 18.9 % Low 19-41 [facility] MCV (mean corpuscular volume ) determinationOrdered By: Ana Hamilton on 11-16-2024 MCV (RBC) [Entitic vol] 91.4 fL 80-94 [facility] Mean corpuscular hemoglobin (MCH) determinationOrdered By: Ana Hamilton on 11-16-2024 MCH (RBC) [Entitic mass] 27.5 pg 27.0-32.0 [facility] Mean corpuscular hemoglobin concentration (MCHC) determinationOrdered By: Ana Hamilton on 11-16-2024 MCHC (RBC) [Mass/Vol] 30.1 g/dL Low 32-36 [facility] Mean platelet volume determi nationOrdered By: Ana Hamilton on 11-16-2024 Platelet mean volume (Bld) [Entitic vol] 11.9 fL 6.2-12.0 [facility] Monocyte percentageOrdered B y: Ana Hamilton on 11-16-2024 Monocytes/100 WBC (Bld) 3.3 % 0-10 [facility] Neutrophil percentageOrdered By: Ana Hamilton on 11-16-2024 Neutrophils/100 WBC (Bld) 72.7 % High 47-70 [facility] No Panel InformationOrdered By: Ana Hamilton on 11-16-2024 Unsaturated Iron Binding Capacity 180 ug/dL Low 228-428 [facility] Nucleated red blood cell per centageOrdered By: Ana Hamilton on 11-16-2024 Nucleated RBC/100 WBC (Bld) [Ratio] 0 % 0-5 [facility] Platelet countOrdered By: Lv Hamilton on 11-16-2024 Platelets (Bld) [#/Vol] 222 10*3/uL 150-450 [facility] RBC Auto (Bld) [#/Vol]Ordere d By: Ana Hamilton on 11-16-2024 RBC (Bld) [#/Vol] 3.27 10*6/uL Low 4.6-6.2 [facility] Serum or plasma ferritin rafael surement (mass/volume)Ordered By: Ana Hamilton on 11-16-2024 Ferritin [Mass/Vol] 340 ng/mL 37-417 [facility] Serum or plasma iron saturat ion measurement (mass fraction)Ordered By: Ana Hamilton on 11-16-2024 Iron saturation [Mass fraction] 7.2 % Low 9-55 [facility] Comment on above: Previous reported re sult: 7.0 %Edited by: NAVA on 11/16/24:0945 AMENDED REPORT 11/16/24 0945 IRON SATURATION previously reported as: 7.0 L % White blood cell (WBC) count Ordered By: Ana Hamilton on 11-16-2024 WBC (Bld) [#/Vol] 4.6 10*3/uL 4.4-11.0 [facility] Basic Metabolic Profile (BMP )on 11-15-2024 BUN Normal 4-19 [facility] Comment on above: Result Comment: Canc elled via OM: Order cancelled - Patient discharged Performed By: #### L 500.2500, L100.0100 ####[facility] [address] [place], [address] BUN/CRE Normal 10-20 [facility] Comment on above: Result Comment: Canc elled via OM: Order cancelled - Patient discharged Performed By: #### L 500.2500, L100.0100 ####[facility] [address] [place], [address] Calcium Normal 7.6-11.0 [facility] Comment on above: Result Comment: Canc elled via OM: Order cancelled - Patient discharged Performed By: #### L 500.2500, L100.0100 ####[facility] [address] [place], [address] CL Normal 98-108 [facility] Comment on above: Result Comment: Canc elled via OM: Order cancelled - Patient discharged Performed By: #### L 500.2500, L100.0100 ####[facility] [address] [place], [address] CO2 Normal 21.0-32.0 [facility] Comment on above: Result Comment: Canc elled via OM: Order cancelled - Patient discharged Performed By: #### L 500.2500, L100.0100 ####[facility] [address] [place], [address] CREAT,SERUM Normal 0.70-1.20 [facility] Comment on above: Result Comment: Canc elled via OM: Order cancelled - Patient discharged Performed By: #### L 500.2500, L100.0100 ####[facility] [address] [place], [address] eGFR Normal >60 [facility] Comment on above: Result Comment: Canc elled via OM: Order cancelled - Patient discharged Performed By: #### L 500.2500, L100.0100 ####[facility] [address] [place], [address] GAP Normal 5-15 [facility] Comment on above: Result Comment: Canc elled via OM: Order cancelled - Patient discharged Performed By: #### L 500.2500, L100.0100 ####[facility] [address] [place], [address] GLU Normal 70-99 [facility] Comment on above: Result Comment: Canc elled via OM: Order cancelled - Patient discharged Performed By: #### L 500.2500, L100.0100 ####[facility] [address] [place], [address] Potassium Normal 3.3-5.1 [facility] Comment on above: Result Comment: Canc elled via OM: Order cancelled - Patient discharged Performed By: #### L 500.2500, L100.0100 ####[facility] [address] [place], [address] Basic Metabolic Profile (BMP) Normal 133-145 [facility] Comment on above: Result Comment: Canc elled via OM: Order cancelled - Patient discharged Performed By: #### L 500.2500, L100.0100 ####[facility] [address] [place], [address] CBC W/Diff, Automatedon 03-2 Absolute Neut Normal 2.0-7.7 [facility] Comment on above: Result Comment: Canc elled via OM: Order cancelled - Patient discharged Performed By: #### L 500.2500, L100.0100 ####[facility] [address] [place], [address] HCT Normal 40-54 [facility] Comment on above: Result Comment: Canc elled via OM: Order cancelled - Patient discharged Performed By: #### L 500.2500, L100.0100 ####[facility] [address] [place], [address] HGB Normal 13.0-16.5 [facility] Comment on above: Result Comment: Canc elled via OM: Order cancelled - Patient discharged Performed By: #### L 500.2500, L100.0100 ####[facility] [address] [place], [address] MCH Normal 27.0-32.0 [facility] Comment on above: Result Comment: Canc elled via OM: Order cancelled - Patient discharged Performed By: #### L 500.2500, L100.0100 ####[facility] [address] [place], [address] MCHC Normal 32-36 [facility] Comment on above: Result Comment: Canc elled via OM: Order cancelled - Patient discharged Performed By: #### L 500.2500, L100.0100 ####[facility] [address] [place], [address] MCV Normal 80-94 [facility] Comment on above: Result Comment: Canc elled via OM: Order cancelled - Patient discharged Performed By: #### L 500.2500, L100.0100 ####[facility] [address] [place], [address] NEUT% Normal 47-70 [facility] Comment on above: Result Comment: Canc elled via OM: Order cancelled - Patient discharged Performed By: #### L 500.2500, L100.0100 ####[facility] [address] [place], [address] PLT Normal 150-450 [facility] Comment on above: Result Comment: Canc elled via OM: Order cancelled - Patient discharged Performed By: #### L 500.2500, L100.0100 ####[facility] [address] [place], [address] RBC Normal 4.6-6.2 [facility] Comment on above: Result Comment: Canc elled via OM: Order cancelled - Patient discharged Performed By: #### L 500.2500, L100.0100 ####[facility] [address] [place], [address] RDW CV Normal 11.6-14.6 [facility] Comment on above: Result Comment: Canc elled via OM: Order cancelled - Patient discharged Performed By: #### L 500.2500, L100.0100 ####[facility] [address] [place], [address] RDW SD Normal 35.1-43.9 [facility] Comment on above: Result Comment: Canc elled via OM: Order cancelled - Patient discharged Performed By: #### L 500.2500, L100.0100 ####[facility] [address] [place], [address] WBC Normal 4.4-11.0 [facility] Comment on above: Result Comment: Canc elled via OM: Order cancelled - Patient discharged Performed By: #### L 500.2500, L100.0100 ####[facility] [address] [place], [address] Anion gap in Serum or Plasma Ordered By: Ana Hamilton on 11-14-2024 Anion gap [Moles/Vol] 11 mmol/L 01-05 [facility] BUN/creatinine ratioOrdered By: Ana Hamilton on 11-14-2024 Urea nitrogen/Creatinine [Mass ratio] 15.4 mg/mg 06-12 [facility] Basic Metabolic Profile (BMP )on 11-14-2024 BUN/CRE 15.4 RATIO Normal 06-12 [facility] Comment on above: Order Comment: Performed By: #### L 501.5200, L500.2500, L100.0500 ####[facility] [address] [place], [address] Calcium [Mass/Vol] 8.0 mg/dL Normal 7.6-11.0 [facility] Comment on above: Order Comment: Performed By: #### L 501.5200, L500.2500, L100.0500 ####[facility] [address] [place], [address] Chloride [Moles/Vol] 100 mmol/L Normal 98-108 [facility] Comment on above: Order Comment: - Performed By: #### L 501.5200, L500.2500, L100.0500 ####[facility] [address] [place], [address] CO2 [Moles/Vol] 27.7 mmol/L Normal 21.0-32.0 [facility] Comment on above: Order Comment: - Performed By: #### L 501.5200, L500.2500, L100.0500 ####[facility] [address] [place], [address] Creatinine [Mass/Vol] 1.27 mg/dL High 0.70-1.20 [facility] Comment on above: Order Comment: Performed By: #### L 501.5200, L500.2500, L100.0500 ####[facility] [address] [place], [address] GAP 11 Normal 5-15 [facility] Comment on above: Order Comment: Performed By: #### L 501.5200, L500.2500, L100.0500 ####[facility] [address] [place], [address] GFR/1.73 sq M.predicted among non-blacks MDRD (S/P/Bld) [Vol rate/Area] 55 mL/min/{1.73_m2} Low >60 [facility] Comment on above: Order Comment: Result Comment: mL/m in/1.73m2 CKD-EPI Creatinine Equation (2020) Performed By: #### L 501.5200, L500.2500, L100.0500 ####[facility] [address] [place], [address] Glucose [Mass/Vol] 100 mg/dL High 70-99 [facility] Comment on above: Order Comment: Performed By: #### L 501.5200, L500.2500, L100.0500 ####[facility] [address] [place], [address] Potassium [Moles/Vol] 3.0 mmol/L Low 3.3-5.1 [facility] Comment on above: Order Comment: - Performed By: #### L 501.5200, L500.2500, L100.0500 ####[facility] [address] [place], [address] Sodium [Moles/Vol] 138 mmol/L Normal 133-145 [facility] Comment on above: Order Comment: - Performed By: #### L 501.5200, L500.2500, L100.0500 ####[facility] [address] [place], [address] Urea nitrogen [Mass/Vol] 20 mg/dL High 4-19 [facility] Comment on above: Order Comment: - Performed By: #### L 501.5200, L500.2500, L100.0500 ####[facility] [address] [place], [address] BUN Normal - [facility] Comment on above: Result Comment: Canc elled via OM: Order cancelled - Patient discharged Performed By: #### L 100.0100, L500.2500 ####[facility] [address] [place], [address] BUN/CRE Normal 10-20 [facility] Comment on above: Result Comment: Canc elled via OM: Order cancelled - Patient discharged Performed By: #### L 100.0100, L500.2500 ####[facility] [address] [place], [address] Calcium Normal 7.6-11.0 [facility] Comment on above: Result Comment: Canc elled via OM: Order cancelled - Patient discharged Performed By: #### L 100.0100, L500.2500 ####[facility] [address] [place], [address] CL Normal 98-108 [facility] Comment on above: Result Comment: Canc elled via OM: Order cancelled - Patient discharged Performed By: #### L 100.0100, L500.2500 ####[facility] [address] [place], [address] CO2 Normal 21.0-32.0 [facility] Comment on above: Result Comment: Canc elled via OM: Order cancelled - Patient discharged Performed By: #### L 100.0100, L500.2500 ####[facility] [address] [place], [address] CREAT,SERUM Normal 0.70-1.20 [facility] Comment on above: Result Comment: Canc elled via OM: Order cancelled - Patient discharged Performed By: #### L 100.0100, L500.2500 ####[facility] [address] [place], [address] eGFR Normal >60 [facility] Comment on above: Result Comment: Canc elled via OM: Order cancelled - Patient discharged Performed By: #### L 100.0100, L500.2500 ####[facility] [address] [place], [address] GAP Normal 5-15 [facility] Comment on above: Result Comment: Canc elled via OM: Order cancelled - Patient discharged Performed By: #### L 100.0100, L500.2500 ####[facility] [address] [place], [address] GLU Normal 70-99 [facility] Comment on above: Result Comment: Canc elled via OM: Order cancelled - Patient discharged Performed By: #### L 100.0100, L500.2500 ####[facility] [address] [place], [address] Potassium Normal 3.3-5.1 [facility] Comment on above: Result Comment: Canc elled via OM: Order cancelled - Patient discharged Performed By: #### L 100.0100, L500.2500 ####[facility] [address] [place], [address] Basic Metabolic Profile (BMP) Normal 133-145 [facility] Comment on above: Result Comment: Canc elled via OM: Order cancelled - Patient discharged Performed By: #### L 100.0100, L500.2500 ####[facility] [address] [place], [address] CBC W/Diff, Automatedon - Absolute Neut Normal 2.0-7.7 [facility] Comment on above: Result Comment: Canc elled via OM: Order cancelled - Patient discharged Performed By: #### L 100.0100, L500.2500 ####[facility] [address] [place], [address] HCT Normal 40-54 [facility] Comment on above: Result Comment: Canc elled via OM: Order cancelled - Patient discharged Performed By: #### L 100.0100, L500.2500 ####[facility] [address] [place], [address] HGB Normal 13.0-16.5 [facility] Comment on above: Result Comment: Canc elled via OM: Order cancelled - Patient discharged Performed By: #### L 100.0100, L500.2500 ####[facility] [address] [place], [address] MCH Normal 27.0-32.0 [facility] Comment on above: Result Comment: Canc elled via OM: Order cancelled - Patient discharged Performed By: #### L 100.0100, L500.2500 ####[facility] [address] [place], [address] MCHC Normal 32-36 [facility] Comment on above: Result Comment: Canc elled via OM: Order cancelled - Patient discharged Performed By: #### L 100.0100, L500.2500 ####[facility] [address] [place], [address] MCV Normal 80-94 [facility] Comment on above: Result Comment: Canc elled via OM: Order cancelled - Patient discharged Performed By: #### L 100.0100, L500.2500 ####[facility] [address] [place], [address] NEUT% Normal 47-70 [facility] Comment on above: Result Comment: Canc elled via OM: Order cancelled - Patient discharged Performed By: #### L 100.0100, L500.2500 ####[facility] [address] [place], [address] PLT Normal 150-450 [facility] Comment on above: Result Comment: Canc elled via OM: Order cancelled - Patient discharged Performed By: #### L 100.0100, L500.2500 ####[facility] [address] [place], [address] RBC Normal 4.6-6.2 [facility] Comment on above: Result Comment: Canc elled via OM: Order cancelled - Patient discharged Performed By: #### L 100.0100, L500.2500 ####[facility] [address] [place], [address] RDW CV Normal 11.6-14.6 [facility] Comment on above: Result Comment: Canc elled via OM: Order cancelled - Patient discharged Performed By: #### L 100.0100, L500.2500 ####[facility] [address] [place], [address] RDW SD Normal 35.1-43.9 [facility] Comment on above: Result Comment: Canc elled via OM: Order cancelled - Patient discharged Performed By: #### L 100.0100, L500.2500 ####[facility] [address] [place], [address] WBC Normal 4.4-11.0 [facility] Comment on above: Result Comment: Canc elled via OM: Order cancelled - Patient discharged Performed By: #### L 100.0100, L500.2500 ####[facility] [address] [place], [address] CBC-Complete Blood Cnt No Di ffon 11-14-2024 Erythrocyte distribution width (RBC) [Ratio] 14.9 % High 11.6-14.6 [facility] Comment on above: Order Comment: - Performed By: #### L 501.5200, L500.2500, L100.0500 ####[facility] [address] [place], [address] Hematocrit (Bld) [Volume fraction] 26.7 % Low 40-54 [facility] Comment on above: Order Comment: - Performed By: #### L 501.5200, L500.2500, L100.0500 ####[facility] [address] [place], [address] Hemoglobin (Bld) [Mass/Vol] 8.4 g/dL Low 13.0-16.5 [facility] Comment on above: Order Comment: - Performed By: #### L 501.5200, L500.2500, L100.0500 ####[facility] [address] [place], [address] MCH (RBC) [Entitic mass] 28.4 pg Normal 27.0-32.0 [facility] Comment on above: Order Comment: - Performed By: #### L 501.5200, L500.2500, L100.0500 ####[facility] [address] [place], [address] MCHC (RBC) [Mass/Vol] 31.5 g/dL Low 32-36 [facility] Comment on above: Order Comment: - Performed By: #### L 501.5200, L500.2500, L100.0500 ####[facility] [address] [place], [address] MCV (RBC) [Entitic vol] 90.2 fL Normal 80-94 [facility] Comment on above: Order Comment: - Performed By: #### L 501.5200, L500.2500, L100.0500 ####[facility] [address] [place], [address] Platelet mean volume (Bld) [Entitic vol] 12.4 fL High 6.2-12.0 [facility] Comment on above: Order Comment: - Performed By: #### L 501.5200, L500.2500, L100.0500 ####[facility] [address] [place], [address] Platelets (Bld) [#/Vol] 149 10*3/uL Low 150-450 [facility] Comment on above: Order Comment: - Performed By: #### L 501.5200, L500.2500, L100.0500 ####[facility] [address] [place], [address] RBC (Bld) [#/Vol] 2.96 10*6/uL Low 4.6-6.2 [facility] Comment on above: Order Comment: - Performed By: #### L 501.5200, L500.2500, L100.0500 ####[facility] [address] [place], [address] RDW SD 48.9 fl High 35.1-43.9 [facility] Comment on above: Order Comment: Performed By: #### L 501.5200, L500.2500, L100.0500 ####[facility] [address] [place], [address] WBC (Bld) [#/Vol] 4.6 10*3/uL Normal 4.4-11.0 [facility] Comment on above: Order Comment: Performed By: #### L 501.5200, L500.2500, L100.0500 ####[facility] [address] [place], [address] Carbon dioxide, total [Moles /volume] in Central venous bloodOrdered By: Ana Hamilton on 11-14-2024 CO2 [Moles/Vol] 27.7 mmol/L 21.0-32.0 [facility] Chloride assayOrdered By: Lv Hamilton on 11-14-2024 Chloride [Moles/Vol] 100 mmol/L 98-108 [facility] Erythrocyte distribution wid th ratioOrdered By: Ana Hamilton on 11-14-2024 Erythrocyte distribution width (RBC) [Ratio] 14.9 % High 11.6-14.6 [facility] Erythrocyte distribution wid th standard deviationOrdered By: Ana Hamilton on 11-14-2024 Erythrocyte distribution width (RBC) [Entitic vol] 48.9 fL High 35.1-43.9 [facility] Erythrocyte distribution width (RBC) [Ratio] 48.9 fl High 35.1-43.9 [facility] GFR/1.73 sq M.predicted fermin g non-blacks MDRD (S/P/Bld) [Vol rate/Area]Ordered By: Ana Hamilton on 11-14-2024 Estimated GFR (MDRD) Non-Af Amer 55 Low >60 [facility] Comment on above: mL/min/1.73m2 CKD-EP I Creatinine Equation (2020) Glomerular filtration rate ( GFR) estimation/1.73 sq m using serum, plasma, or whole bOrdered By: Ana aHmilton on 11-14-2024 GFR/1.73 sq M.predicted among non-blacks MDRD (S/P/Bld) [Vol rate/Area] 55 mL/min/{1.73_m2} Low >60 [facility] Comment on above: mL/min/1.73m2 CKD-EP I Creatinine Equation (2020) Hematocrit Auto (Bld) [Volum e fraction]Ordered By: Ana Hamilton on 11-14-2024 Hematocrit (Bld) [Volume fraction] 26.7 % Low 40-54 [facility] Hemoglobin measurementOrdere d By: Ana Hamilton on 11-14-2024 Hemoglobin (Bld) [Mass/Vol] 8.4 g/dL Low 13.0-16.5 [facility] MCV (mean corpuscular volume ) determinationOrdered By: Ana Hamilton on 11-14-2024 MCV (RBC) [Entitic vol] 90.2 fL 80-94 [facility] Magnesiumon 11-14-2024 Magnesium [Mass/Vol] 1.9 mg/dL Normal 1.5-2.2 [facility] Comment on above: Order Comment: [id number] Performed By: #### L 501.5200, L500.2500, L100.0500 ####[facility] [address] [place], [place], [address] Magnesium (Unsp spec) [Mass/ Vol]Ordered By: Ana Hamilton on 11-14-2024 Magnesium [Mass/Vol] 1.9 mg/dL 1.5-2.2 [facility] Magnesium measurement (mass/ volume)Ordered By: Ana Hamilton on 11-14-2024 Magnesium (Unsp spec) [Mass/Vol] 1.9 mg/dL 1.5-2.2 [facility] Mean corpuscular hemoglobin (MCH) determinationOrdered By: Ana Hamilton on 11-14-2024 MCH (RBC) [Entitic mass] 28.4 pg 27.0-32.0 [facility] Mean corpuscular hemoglobin concentration (MCHC) determinationOrdered By: Ana Hamilton on 11-14-2024 MCHC (RBC) [Mass/Vol] 31.5 g/dL Low 32-36 [facility] Mean platelet volume determi nationOrdered By: Ana Hamilton on 11-14-2024 Platelet mean volume (Bld) [Entitic vol] 12.4 fL High 6.2-12.0 [facility] Platelet countOrdered By: Lv Hamilton on 11-14-2024 Platelets (Bld) [#/Vol] 149 10*3/uL Low 150-450 [facility] Potassium (Unsp spec) [Mass/ Vol]Ordered By: Ana Hamilton on 11-14-2024 Potassium [Moles/Vol] 3.0 mmol/L Low 3.3-5.1 [facility] Potassium measurement (mass/ volume)Ordered By: Ana Hamilton on 11-14-2024 Potassium (Unsp spec) [Mass/Vol] 3.0 mmol/L Low 3.3-5.1 [facility] RBC Auto (Bld) [#/Vol]Ordere d By: Ana Hamilton on 11-14-2024 RBC (Bld) [#/Vol] 2.96 10*6/uL Low 4.6-6.2 [facility] Serum creatinine measurement (mass/volume)Ordered By: Ana Hamilton on 11-14-2024 Creatinine [Mass/Vol] 1.27 mg/dL High 0.70-1.20 [facility] Serum glucose measurement (m ass/volume)Ordered By: Ana Hamilton on 11-14-2024 Glucose [Mass/Vol] 100 mg/dL High 70-99 [facility] Serum or plasma calcium kim urement (mass/volume)Ordered By: Ana Hamilton on 11-14-2024 Calcium [Mass/Vol] 8.0 mg/dL 7.6-11.0 [facility] Serum or plasma urea nitroge n measurement (mass/volume)Ordered By: Ana Hamilton on 11-14-2024 Urea nitrogen [Mass/Vol] 20 mg/dL High 4-19 [facility] Sodium levelOrdered By: Shari Hamilton on 11-14-2024 Sodium [Moles/Vol] 138 mmol/L 133-145 [facility] White blood cell (WBC) count Ordered By: Ana Hamilton on 11-14-2024 WBC (Bld) [#/Vol] 4.6 10*3/uL 4.4-11.0 [facility] Basic Metabolic Profile (BMP )on 11-13-2024 BUN Normal 4-19 [facility] Comment on above: Result Comment: Canc elled via OM: Order cancelled - Patient discharged Performed By: #### L 100.0100, L500.2500 ####[facility] [address] [place], [address] BUN/CRE Normal 10-20 [facility] Comment on above: Result Comment: Canc elled via OM: Order cancelled - Patient discharged Performed By: #### L 100.0100, L500.2500 ####[facility] [address] [place], [address] Calcium Normal 7.6-11.0 [facility] Comment on above: Result Comment: Canc elled via OM: Order cancelled - Patient discharged Performed By: #### L 100.0100, L500.2500 ####[facility] [address] [place], [address] CL Normal 98-108 [facility] Comment on above: Result Comment: Canc elled via OM: Order cancelled - Patient discharged Performed By: #### L 100.0100, L500.2500 ####[facility] [address] [place], [address] CO2 Normal 21.0-32.0 [facility] Comment on above: Result Comment: Canc elled via OM: Order cancelled - Patient discharged Performed By: #### L 100.0100, L500.2500 ####[facility] [address] [place], [address] CREAT,SERUM Normal 0.70-1.20 [facility] Comment on above: Result Comment: Canc elled via OM: Order cancelled - Patient discharged Performed By: #### L 100.0100, L500.2500 ####[facility] [address] [place], [address] eGFR Normal >60 [facility] Comment on above: Result Comment: Canc elled via OM: Order cancelled - Patient discharged Performed By: #### L 100.0100, L500.2500 ####[facility] [address] [place], [address] GAP Normal 5-15 [facility] Comment on above: Result Comment: Canc elled via OM: Order cancelled - Patient discharged Performed By: #### L 100.0100, L500.2500 ####[facility] [address] [place], [address] GLU Normal 70-99 [facility] Comment on above: Result Comment: Canc elled via OM: Order cancelled - Patient discharged Performed By: #### L 100.0100, L500.2500 ####[facility] [address] [place], [address] Potassium Normal 3.3-5.1 [facility] Comment on above: Result Comment: Canc elled via OM: Order cancelled - Patient discharged Performed By: #### L 100.0100, L500.2500 ####[facility] [address] [place], [address] Basic Metabolic Profile (BMP) Normal 133-145 [facility] Comment on above: Result Comment: Canc elled via OM: Order cancelled - Patient discharged Performed By: #### L 100.0100, L500.2500 ####[facility] [address] [place], [address] CBC W/Diff, Automatedon 03-2 Absolute Neut Normal 2.0-7.7 [facility] Comment on above: Result Comment: Canc elled via OM: Order cancelled - Patient discharged Performed By: #### L 100.0100, L500.2500 ####[facility] [address] [place], [address] HCT Normal 40-54 [facility] Comment on above: Result Comment: Canc elled via OM: Order cancelled - Patient discharged Performed By: #### L 100.0100, L500.2500 ####[facility] [address] [place], [address] HGB Normal 13.0-16.5 [facility] Comment on above: Result Comment: Canc elled via OM: Order cancelled - Patient discharged Performed By: #### L 100.0100, L500.2500 ####[facility] [address] [place], [address] MCH Normal 27.0-32.0 [facility] Comment on above: Result Comment: Canc elled via OM: Order cancelled - Patient discharged Performed By: #### L 100.0100, L500.2500 ####[facility] [address] [place], [address] MCHC Normal 32-36 [facility] Comment on above: Result Comment: Canc elled via OM: Order cancelled - Patient discharged Performed By: #### L 100.0100, L500.2500 ####[facility] [address] [place], [address] MCV Normal 80-94 [facility] Comment on above: Result Comment: Canc elled via OM: Order cancelled - Patient discharged Performed By: #### L 100.0100, L500.2500 ####[facility] [address] [place], [address] NEUT% Normal 47-70 [facility] Comment on above: Result Comment: Canc elled via OM: Order cancelled - Patient discharged Performed By: #### L 100.0100, L500.2500 ####[facility] [address] [place], [address] PLT Normal 150-450 [facility] Comment on above: Result Comment: Canc elled via OM: Order cancelled - Patient discharged Performed By: #### L 100.0100, L500.2500 ####[facility] [address] [place], [address] RBC Normal 4.6-6.2 [facility] Comment on above: Result Comment: Canc elled via OM: Order cancelled - Patient discharged Performed By: #### L 100.0100, L500.2500 ####[facility] [address] [place], [address] RDW CV Normal 11.6-14.6 [facility] Comment on above: Result Comment: Canc elled via OM: Order cancelled - Patient discharged Performed By: #### L 100.0100, L500.2500 ####[facility] [address] [place], [address] RDW SD Normal 35.1-43.9 [facility] Comment on above: Result Comment: Canc elled via OM: Order cancelled - Patient discharged Performed By: #### L 100.0100, L500.2500 ####[facility] [address] [place], [address] WBC Normal 4.4-11.0 [facility] Comment on above: Result Comment: Canc elled via OM: Order cancelled - Patient discharged Performed By: #### L 100.0100, L500.2500 ####[facility] [address] [place], [address] Basic Metabolic Profile (BMP )on 11-12-2024 BUN Normal 4-19 [facility] Comment on above: Result Comment: Canc elled via OM: Order cancelled - Patient discharged Performed By: #### L 100.0100, L500.2500 ####[facility] [address] [place], [address] BUN/CRE Normal 10-20 [facility] Comment on above: Result Comment: Canc elled via OM: Order cancelled - Patient discharged Performed By: #### L 100.0100, L500.2500 ####[facility] [address] [place], [address] Calcium Normal 7.6-11.0 [facility] Comment on above: Result Comment: Canc elled via OM: Order cancelled - Patient discharged Performed By: #### L 100.0100, L500.2500 ####[facility] [address] [place], [address] CL Normal 98-108 [facility] Comment on above: Result Comment: Canc elled via OM: Order cancelled - Patient discharged Performed By: #### L 100.0100, L500.2500 ####[facility] [address] [place], [address] CO2 Normal 21.0-32.0 [facility] Comment on above: Result Comment: Canc elled via OM: Order cancelled - Patient discharged Performed By: #### L 100.0100, L500.2500 ####[facility] [address] [place], [address] CREAT,SERUM Normal 0.70-1.20 [facility] Comment on above: Result Comment: Canc elled via OM: Order cancelled - Patient discharged Performed By: #### L 100.0100, L500.2500 ####[facility] [address] [place], [address] eGFR Normal >60 [facility] Comment on above: Result Comment: Canc elled via OM: Order cancelled - Patient discharged Performed By: #### L 100.0100, L500.2500 ####[facility] [address] [place], [address] GAP Normal 5-15 [facility] Comment on above: Result Comment: Canc elled via OM: Order cancelled - Patient discharged Performed By: #### L 100.0100, L500.2500 ####[facility] [address] [place], [address] GLU Normal 70-99 [facility] Comment on above: Result Comment: Canc elled via OM: Order cancelled - Patient discharged Performed By: #### L 100.0100, L500.2500 ####[facility] [address] [place], [address] Potassium Normal 3.3-5.1 [facility] Comment on above: Result Comment: Canc elled via OM: Order cancelled - Patient discharged Performed By: #### L 100.0100, L500.2500 ####[facility] [address] [place], [address] Basic Metabolic Profile (BMP) Normal 133-145 [facility] Comment on above: Result Comment: Canc elled via OM: Order cancelled - Patient discharged Performed By: #### L 100.0100, L500.2500 ####[facility] [address] [place], [address] CBC W/Diff, Automatedon 03- Absolute Neut Normal 2.0-7.7 [facility] Comment on above: Result Comment: Canc elled via OM: Order cancelled - Patient discharged Performed By: #### L 100.0100, L500.2500 ####[facility] [address] [place], [address] HCT Normal 40-54 [facility] Comment on above: Result Comment: Canc elled via OM: Order cancelled - Patient discharged Performed By: #### L 100.0100, L500.2500 ####[facility] [address] [place], [address] HGB Normal 13.0-16.5 [facility] Comment on above: Result Comment: Canc elled via OM: Order cancelled - Patient discharged Performed By: #### L 100.0100, L500.2500 ####[facility] [address] [place], [address] MCH Normal 27.0-32.0 [facility] Comment on above: Result Comment: Canc elled via OM: Order cancelled - Patient discharged Performed By: #### L 100.0100, L500.2500 ####[facility] [address] [place], [address] MCHC Normal 32-36 [facility] Comment on above: Result Comment: Canc elled via OM: Order cancelled - Patient discharged Performed By: #### L 100.0100, L500.2500 ####[facility] [address] [place], [address] MCV Normal 80-94 [facility] Comment on above: Result Comment: Canc elled via OM: Order cancelled - Patient discharged Performed By: #### L 100.0100, L500.2500 ####[facility] [address] [place], [address] NEUT% Normal 47-70 [facility] Comment on above: Result Comment: Canc elled via OM: Order cancelled - Patient discharged Performed By: #### L 100.0100, L500.2500 ####[facility] [address] [place], [address] PLT Normal 150-450 [facility] Comment on above: Result Comment: Canc elled via OM: Order cancelled - Patient discharged Performed By: #### L 100.0100, L500.2500 ####[facility] [address] [place], [address] RBC Normal 4.6-6.2 [facility] Comment on above: Result Comment: Canc elled via OM: Order cancelled - Patient discharged Performed By: #### L 100.0100, L500.2500 ####[facility] [address] [place], [address] RDW CV Normal 11.6-14.6 [facility] Comment on above: Result Comment: Canc elled via OM: Order cancelled - Patient discharged Performed By: #### L 100.0100, L500.2500 ####[facility] [address] [place], [address] RDW SD Normal 35.1-43.9 [facility] Comment on above: Result Comment: Canc elled via OM: Order cancelled - Patient discharged Performed By: #### L 100.0100, L500.2500 ####[facility] [address] [place], [address] WBC Normal 4.4-11.0 [facility] Comment on above: Result Comment: Canc elled via OM: Order cancelled - Patient discharged Performed By: #### L 100.0100, L500.2500 ####[facility] [address] [place], [address] Urine Cultureon 11-12-2024 URC Below infection leve l. Mixed Gram Pos Gram Neg Org [place] Count <1000 MIXC Mixed contaminants. Submit a new specimen if indicated. Normal [facility] Comment on above: Performed By: #### M 100.2200 ####[facility] [address] [place], [address] Basic Metabolic Profile (BMP )on 11-11-2024 BUN Normal 4-19 [facility] Comment on above: Result Comment: Canc elled via OM: Order cancelled - Patient discharged Performed By: #### L 100.0100, L500.2500 ####[facility] [address] [place], [address] BUN/CRE Normal 10-20 [facility] Comment on above: Result Comment: Canc elled via OM: Order cancelled - Patient discharged Performed By: #### L 100.0100, L500.2500 ####[facility] [address] [place], [address] Calcium Normal 7.6-11.0 [facility] Comment on above: Result Comment: Canc elled via OM: Order cancelled - Patient discharged Performed By: #### L 100.0100, L500.2500 ####[facility] [address] [place], [address] CL Normal 98-108 [facility] Comment on above: Result Comment: Canc elled via OM: Order cancelled - Patient discharged Performed By: #### L 100.0100, L500.2500 ####[facility] [address] [place], [address] CO2 Normal 21.0-32.0 [facility] Comment on above: Result Comment: Canc elled via OM: Order cancelled - Patient discharged Performed By: #### L 100.0100, L500.2500 ####[facility] [address] [place], [address] CREAT,SERUM Normal 0.70-1.20 [facility] Comment on above: Result Comment: Canc elled via OM: Order cancelled - Patient discharged Performed By: #### L 100.0100, L500.2500 ####[facility] [address] [place], [address] eGFR Normal >60 [facility] Comment on above: Result Comment: Canc elled via OM: Order cancelled - Patient discharged Performed By: #### L 100.0100, L500.2500 ####[facility] [address] [place], [address] GAP Normal 5-15 [facility] Comment on above: Result Comment: Canc elled via OM: Order cancelled - Patient discharged Performed By: #### L 100.0100, L500.2500 ####[facility] [address] [place], [address] GLU Normal 70-99 [facility] Comment on above: Result Comment: Canc elled via OM: Order cancelled - Patient discharged Performed By: #### L 100.0100, L500.2500 ####[facility] [address] [place], [address] Potassium Normal 3.3-5.1 [facility] Comment on above: Result Comment: Canc elled via OM: Order cancelled - Patient discharged Performed By: #### L 100.0100, L500.2500 ####[facility] [address] [place], [address] Basic Metabolic Profile (BMP) Normal 133-145 [facility] Comment on above: Result Comment: Canc elled via OM: Order cancelled - Patient discharged Performed By: #### L 100.0100, L500.2500 ####[facility] [address] [place], [address] Blood cultureOrdered By: Oren Hamilton on 11-11-2024 Bacteria identified Cx Nom (Bld) No growth in 5 days. [facility] Blood manual differential co mment interpretation (narrative result)Ordered By: Ana Hamilton on 11-11-2024 Manual differential comment Miguel (Bld) [Interp] See comment [facility] Comment on above: 1+ POLYCHROMASIAMODE RATELY DECREASED PLATELETS CBC W/Diff, Automatedon - Absolute Neut Normal 2.0-7.7 [facility] Comment on above: Result Comment: Canc elled via OM: Order cancelled - Patient discharged Performed By: #### L 100.0100, L500.2500 ####[facility] [address] [place], [address] HCT Normal 40-54 [facility] Comment on above: Result Comment: Canc elled via OM: Order cancelled - Patient discharged Performed By: #### L 100.0100, L500.2500 ####[facility] [address] [place], [address] HGB Normal 13.0-16.5 [facility] Comment on above: Result Comment: Canc elled via OM: Order cancelled - Patient discharged Performed By: #### L 100.0100, L500.2500 ####[facility] [address] [place], [address] MCH Normal 27.0-32.0 [facility] Comment on above: Result Comment: Canc elled via OM: Order cancelled - Patient discharged Performed By: #### L 100.0100, L500.2500 ####[facility] [address] [place], [address] MCHC Normal 32-36 [facility] Comment on above: Result Comment: Canc elled via OM: Order cancelled - Patient discharged Performed By: #### L 100.0100, L500.2500 ####[facility] [address] [place], [address] MCV Normal 80-94 [facility] Comment on above: Result Comment: Canc elled via OM: Order cancelled - Patient discharged Performed By: #### L 100.0100, L500.2500 ####[facility] [address] [place], [address] NEUT% Normal 47-70 [facility] Comment on above: Result Comment: Canc elled via OM: Order cancelled - Patient discharged Performed By: #### L 100.0100, L500.2500 ####[facility] [address] [place], [address] PLT Normal 150-450 [facility] Comment on above: Result Comment: Canc elled via OM: Order cancelled - Patient discharged Performed By: #### L 100.0100, L500.2500 ####[facility] [address] [place], [address] RBC Normal 4.6-6.2 [facility] Comment on above: Result Comment: Canc elled via OM: Order cancelled - Patient discharged Performed By: #### L 100.0100, L500.2500 ####[facility] [address] [place], [address] RDW CV Normal 11.6-14.6 [facility] Comment on above: Result Comment: Canc elled via OM: Order cancelled - Patient discharged Performed By: #### L 100.0100, L500.2500 ####[facility] [address] [place], [address] RDW SD Normal 35.1-43.9 [facility] Comment on above: Result Comment: Canc elled via OM: Order cancelled - Patient discharged Performed By: #### L 100.0100, L500.2500 ####[facility] [address] [place], [address] WBC Normal 4.4-11.0 [facility] Comment on above: Result Comment: Canc elled via OM: Order cancelled - Patient discharged Performed By: #### L 100.0100, L500.2500 ####[facility] [address] [place], [address] CBC-Complete Blood Cnt No Di ffon 11-11-2024 Erythrocyte distribution width (RBC) [Ratio] 15.8 % High 11.6-14.6 [facility] Comment on above: Performed By: #### L 100.0500, L100.4500 ####[facility] [address] [place], [address] Hematocrit (Bld) [Volume fraction] 29.3 % Low 40-54 [facility] Comment on above: Performed By: #### L 100.0500, L100.4500 ####[facility] [address] [place], [address] Hemoglobin (Bld) [Mass/Vol] 9.1 g/dL Low 13.0-16.5 [facility] Comment on above: Performed By: #### L 100.0500, L100.4500 ####[facility] [address] [place], [address] MCH (RBC) [Entitic mass] 28.6 pg Normal 27.0-32.0 [facility] Comment on above: Performed By: #### L 100.0500, L100.4500 ####[facility] [address] [place], [address] MCHC (RBC) [Mass/Vol] 31.1 g/dL Low 32-36 [facility] Comment on above: Performed By: #### L 100.0500, L100.4500 ####[facility] [address] [place], [address] MCV (RBC) [Entitic vol] 92.1 fL Normal 80-94 [facility] Comment on above: Performed By: #### L 100.0500, L100.4500 ####[facility] [address] [place], [address] Platelet mean volume (Bld) [Entitic vol] 13.3 fL High 6.2-12.0 [facility] Comment on above: Performed By: #### L 100.0500, L100.4500 ####[facility] [address] [place], [address] Platelets (Bld) [#/Vol] 94 10*3/uL Low 150-450 [facility] Comment on above: Performed By: #### L 100.0500, L100.4500 ####[facility] [address] [place], [address] RBC (Bld) [#/Vol] 3.18 10*6/uL Low 4.6-6.2 [facility] Comment on above: Performed By: #### L 100.0500, L100.4500 ####[facility] [address] [place], [address] RDW SD 54.2 fl High 35.1-43.9 [facility] Comment on above: Performed By: #### L 100.0500, L100.4500 ####[facility] [address] [place], [address] WBC (Bld) [#/Vol] 4.1 10*3/uL Low 4.4-11.0 [facility] Comment on above: Performed By: #### L 100.0500, L100.4500 ####[facility] [address] [place], [address] Differential Commenton 11-11 SMEAR COMMENT Normal [facility] Comment on above: Result Comment: 1+ P OLYCHROMASIAMODERATELY DECREASED PLATELETS Performed By: #### L 100.0500, L100.4500 ####[facility] [address] [place], [address] Erythrocyte distribution wid th ratioOrdered By: Ana Hamilton on 11-11-2024 Erythrocyte distribution width (RBC) [Ratio] 15.8 % High 11.6-14.6 [facility] Erythrocyte distribution wid th standard deviationOrdered By: Ana Hamilton on 11-11-2024 Erythrocyte distribution width (RBC) [Entitic vol] 54.2 fL High 35.1-43.9 [facility] Erythrocyte distribution width (RBC) [Ratio] 54.2 fl High 35.1-43.9 [facility] Hematocrit Auto (Bld) [Volum e fraction]Ordered By: Ana Hamilton on 11-11-2024 Hematocrit (Bld) [Volume fraction] 29.3 % Low 40-54 [facility] Hemoglobin measurementOrdere d By: Ana Hamilton on 11-11-2024 Hemoglobin (Bld) [Mass/Vol] 9.1 g/dL Low 13.0-16.5 [facility] MCV (mean corpuscular volume ) determinationOrdered By: Ana Hamilton on 11-11-2024 MCV (RBC) [Entitic vol] 92.1 fL 80-94 [facility] Manual differential comment Miguel (Bld) [Interp]Ordered By: Ana Hamilton on 11-11-2024 Differential Comment See comment [facility] Comment on above: 1+ POLYCHROMASIAMODE RATELY DECREASED PLATELETS Mean corpuscular hemoglobin (MCH) determinationOrdered By: Ana Hamilton on 11-11-2024 MCH (RBC) [Entitic mass] 28.6 pg 27.0-32.0 [facility] Mean corpuscular hemoglobin concentration (MCHC) determinationOrdered By: Ana Hamilton on 11-11-2024 MCHC (RBC) [Mass/Vol] 31.1 g/dL Low 32-36 [facility] Mean platelet volume determi nationOrdered By: Ana Hamilton on 11-11-2024 Platelet mean volume (Bld) [Entitic vol] 13.3 fL High 6.2-12.0 [facility] Platelet countOrdered By: Lv Hamilton on 11-11-2024 Platelets (Bld) [#/Vol] 94 10*3/uL Low 150-450 [facility] RBC Auto (Bld) [#/Vol]Ordere d By: Ana Hamilton on 11-11-2024 RBC (Bld) [#/Vol] 3.18 10*6/uL Low 4.6-6.2 [facility] Urine cultureOrdered By: Oren Hamilton on 11-11-2024 Bacteria identified Cx Nom (U) Mixed Gram Pos & Gram Neg Org Abnormal [facility] White blood cell (WBC) count Ordered By: Ana Hamilton on 11-11-2024 WBC (Bld) [#/Vol] 4.1 10*3/uL Low 4.4-11.0 [facility] Absolute lymphocyte countOrd ered By: Ju Fragoso on 11-10-2024 Lymphocytes Auto (Unsp spec) [#/Vol] 1.18 10*3/uL 0.83-4.51 [facility] Absolute neutrophil countOrd ered By: Jurojas Fragoso on 11-10-2024 Neutrophils (Bld) [#/Vol] 2.0 10*3/uL 2.0-7.7 [facility] Anion gap in Serum or Plasma Ordered By: Ju Fragoso on 11-10-2024 Anion gap [Moles/Vol] 11 mmol/L 01-05 [facility] Automated lymphocyte count a s percentage of total leukocytesOrdered By: Ju Fragoso on 11-10-2024 Lymphocytes/100 WBC Auto (Unsp spec) 34.0 % [facility] BUN/creatinine ratioOrdered By: Ju Fragoso on 11-10-2024 Urea nitrogen/Creatinine [Mass ratio] 16.7 mg/mg 06-12 [facility] Basic Metabolic Profile (BMP )on 11-10-2024 BUN/CRE 16.7 RATIO Normal 06-12 [facility] Comment on above: Performed By: #### L 500.2500, L100.0100 ####[facility] [address] [place], [address] Calcium [Mass/Vol] 7.9 mg/dL Normal 7.6-11.0 [facility] Comment on above: Performed By: #### L 500.2500, L100.0100 ####[facility] [address] [place], [address] Chloride [Moles/Vol] 103 mmol/L Normal 98-108 [facility] Comment on above: Performed By: #### L 500.2500, L100.0100 ####[facility] [address] [place], [address] CO2 [Moles/Vol] 21.9 mmol/L Normal 21.0-32.0 [facility] Comment on above: Performed By: #### L 500.2500, L100.0100 ####[facility] [address] [place], [address] Creatinine [Mass/Vol] 1.37 mg/dL High 0.70-1.20 [facility] Comment on above: Performed By: #### L 500.2500, L100.0100 ####[facility] [address] [place], [address] ECRCL 41.12 ml/min Low 50-250 [facility] Comment on above: Performed By: #### L 500.2500, L100.0100 ####[facility] [address] [place], [address] GAP 11 Normal 5-15 [facility] Comment on above: Performed By: #### L 500.2500, L100.0100 ####[facility] [address] [place], [address] GFR/1.73 sq M.predicted among non-blacks MDRD (S/P/Bld) [Vol rate/Area] 50 mL/min/{1.73_m2} Low >60 [facility] Comment on above: Result Comment: mL/m in/1.73m2 CKD-EPI Creatinine Equation (2020) Performed By: #### L 500.2500, L100.0100 ####[facility] [address] [place], [address] Glucose [Mass/Vol] 105 mg/dL High 70-99 [facility] Comment on above: Performed By: #### L 500.2500, L100.0100 ####[facility] [address] [place], [address] Potassium [Moles/Vol] 3.8 mmol/L Normal 3.3-5.1 [facility] Comment on above: Performed By: #### L 500.2500, L100.0100 ####[facility] [address] [place], [address] Sodium [Moles/Vol] 136 mmol/L Normal 133-145 [facility] Comment on above: Performed By: #### L 500.2500, L100.0100 ####[facility] [address] [place], [address] Urea nitrogen [Mass/Vol] 23 mg/dL High 4-19 [facility] Comment on above: Performed By: #### L 500.2500, L100.0100 ####[facility] [address] [place], [address] Basophil percentageOrdered B y: Ju Fragoso on 11-10-2024 Basophils/100 WBC (Bld) 0.3 % 0-1 [facility] Bedside Glucoseon 11-10-2024 FINGERSTICK GLU 106 mg/dL Normal 74-106 [facility] Comment on above: Result Comment: OSITO GEMENT OF PATIENT CARE PER NURSING PROTOCOL Performed By: #### L 501.080 ####[facility] [address] [place], [address] FINGERSTICK GLU 99 mg/dL Normal 74-106 [facility] Comment on above: Result Comment: OSITO GEMENT OF PATIENT CARE PER NURSING PROTOCOL Performed By: #### L 501.080 ####[facility] [address] [place], [address] CBC W/Diff, Automatedon 10-23 0-2024 Absolute Lymph 1.18 X10 3/uL Normal 0.83-4.51 [facility] Comment on above: Performed By: #### L 500.2500, L100.0100 ####[facility] [address] [place], [address] Absolute Neut 2.0 X10 3/uL Normal 2.0-7.7 [facility] Comment on above: Performed By: #### L 500.2500, L100.0100 ####[facility] [address] [place], [address] Basophils/100 WBC (Bld) 0.3 % Normal 0-1 [facility] Comment on above: Performed By: #### L 500.2500, L100.0100 ####[facility] [address] [place], [address] Eosinophils/100 WBC (Bld) 1.2 % Normal 0-5 [facility] Comment on above: Performed By: #### L 500.2500, L100.0100 ####[facility] [address] [place], [address] Erythrocyte distribution width (RBC) [Ratio] 16.8 % High 11.6-14.6 [facility] Comment on above: Performed By: #### L 500.2500, L100.0100 ####[facility] [address] [place], [address] Hematocrit (Bld) [Volume fraction] 26.1 % Low 40-54 [facility] Comment on above: Performed By: #### L 500.2500, L100.0100 ####[facility] [address] [place], [address] Hemoglobin (Bld) [Mass/Vol] 8.2 g/dL Low 13.0-16.5 [facility] Comment on above: Performed By: #### L 500.2500, L100.0100 ####[facility] [address] [place], [address] IG% 0.600 Normal 0.0-0.9 [facility] Comment on above: Result Comment: IG% - Immature Granulocytes (promyelocytes, myelocytes andmetamyelocytes) > 1% indicates that a LEFT SHIFT is Present. Performed By: #### L 500.2500, L100.0100 ####[facility] [address] [place], [address] Lymphocytes/100 WBC (Bld) 34.0 % Normal 19-41 [facility] Comment on above: Performed By: #### L 500.2500, L100.0100 ####[facility] [address] [place], [address] MCH (RBC) [Entitic mass] 28.6 pg Normal 27.0-32.0 [facility] Comment on above: Performed By: #### L 500.2500, L100.0100 ####[facility] [address] [place], [address] MCHC (RBC) [Mass/Vol] 31.4 g/dL Low 32-36 [facility] Comment on above: Performed By: #### L 500.2500, L100.0100 ####[facility] [address] [place], [address] MCV (RBC) [Entitic vol] 90.9 fL Normal 80-94 [facility] Comment on above: Performed By: #### L 500.2500, L100.0100 ####[facility] [address] [place], [address] Monocytes/100 WBC (Bld) 5.8 % Normal 0-10 [facility] Comment on above: Performed By: #### L 500.2500, L100.0100 ####[facility] [address] [place], [address] Neutrophils/100 WBC (Bld) 58.1 % Normal 47-70 [facility] Comment on above: Performed By: #### L 500.2500, L100.0100 ####[facility] [address] [place], [address] Nucleated RBC (Bld) [#/Vol] 0 10*3/uL Normal 0-5 [facility] Comment on above: Performed By: #### L 500.2500, L100.0100 ####[facility] [address] [place], [address] Platelet mean volume (Bld) [Entitic vol] 12.8 fL High 6.2-12.0 [facility] Comment on above: Performed By: #### L 500.2500, L100.0100 ####[facility] [address] [place], [address] Platelets (Bld) [#/Vol] 96 10*3/uL Low 150-450 [facility] Comment on above: Performed By: #### L 500.2500, L100.0100 ####[facility] [address] [place], [address] RBC (Bld) [#/Vol] 2.87 10*6/uL Low 4.6-6.2 [facility] Comment on above: Performed By: #### L 500.2500, L100.0100 ####[facility] [address] [place], [address] RDW SD 55.6 fl High 35.1-43.9 [facility] Comment on above: Performed By: #### L 500.2500, L100.0100 ####[facility] [address] [place], [address] WBC (Bld) [#/Vol] 3.5 10*3/uL Low 4.4-11.0 [facility] Comment on above: Performed By: #### L 500.2500, L100.0100 ####[facility] [address] [place], [address] Carbon dioxide, total [Moles /volume] in Central venous bloodOrdered By: Ju Fragoso on 11-10-2024 CO2 [Moles/Vol] 21.9 mmol/L 21.0-32.0 [facility] Chloride assayOrdered By: Lori Fragoso on 11-10-2024 Chloride [Moles/Vol] 103 mmol/L 98-108 [facility] Eosinophil percentageOrdered By: Ju Fragoso on 11-10-2024 Eosinophils/100 WBC (Bld) 1.2 % 0-5 [facility] Erythrocyte distribution wid th ratioOrdered By: Ju Fragoso on 11-10-2024 Erythrocyte distribution width (RBC) [Ratio] 16.8 % High 11.6-14.6 [facility] Erythrocyte distribution wid th standard deviationOrdered By: Ju Fragoso on 11-10-2024 Erythrocyte distribution width (RBC) [Entitic vol] 55.6 fL High 35.1-43.9 [facility] Erythrocyte distribution width (RBC) [Ratio] 55.6 fl High 35.1-43.9 [facility] Estimation of creatinine ed aranceOrdered By: Ju Fragoso on 11-10-2024 Estimated Creatinine Clearance Calc 41.12 ml/min Low 50-250 [facility] GFR/1.73 sq M.predicted fermin g non-blacks MDRD (S/P/Bld) [Vol rate/Area]Ordered By: Ju Fragoso on 11-10-2024 Estimated GFR (MDRD) Non-Af Amer 50 Low >60 [facility] Comment on above: mL/min/1.73m2 CKD-EP I Creatinine Equation (2020) Glomerular filtration rate ( GFR) estimation/1.73 sq m using serum, plasma, or whole bOrdered By: Ju Fragoso on 11-10-2024 GFR/1.73 sq M.predicted among non-blacks MDRD (S/P/Bld) [Vol rate/Area] 50 mL/min/{1.73_m2} Low >60 [facility] Comment on above: mL/min/1.73m2 CKD-EP I Creatinine Equation (2020) [facility] By: Andrey Mitchell on 11-10-2024 Bedside Glucose (Misc Panel) 106 mg/dL 74-106 [facility] Comment on above: MANAGEMENT OF PATIEN T CARE PER NURSING PROTOCOL Glucose [Mass/Vol] 106 mg/dL 74-106 [facility] Comment on above: MANAGEMENT OF PATIEN T CARE PER NURSING PROTOCOL Hematocrit Auto (Bld) [Volum e fraction]Ordered By: Ju Fragoso on 11-10-2024 Hematocrit (Bld) [Volume fraction] 26.1 % Low 40-54 [facility] Hemoglobin measurementOrdere d By: Ju Fragoso on 11-10-2024 Hemoglobin (Bld) [Mass/Vol] 8.2 g/dL Low 13.0-16.5 [facility] Immature granulocytes/100 WB C Auto (Bld)Ordered By: Ju Fragoso on 11-10-2024 Immature granulocytes/100 WBC (Bld) 0.600 % 0.0-0.9 [facility] Comment on above: IG% - Immature Granu locytes (promyelocytes, myelocytes and metamyelocytes) > 1% indicates that a LEFT SHIFT is Present. Lymphocytes Auto (Unsp spec) [#/Vol]Ordered By: Ju Fragoso on 11-10-2024 Lymphocytes (Bld) [#/Vol] 1.18 10*3/uL 0.83-4.51 [facility] Lymphocytes/100 WBC Auto (Un sp spec)Ordered By: Ju Fragoso on 11-10-2024 Lymphocytes/100 WBC (Bld) 34.0 % 19-41 [facility] MCV (mean corpuscular volume ) determinationOrdered By: Ju Fragoso on 11-10-2024 MCV (RBC) [Entitic vol] 90.9 fL 80-94 [facility] Mean corpuscular hemoglobin (MCH) determinationOrdered By: Ju Fragoso on 11-10-2024 MCH (RBC) [Entitic mass] 28.6 pg 27.0-32.0 [facility] Mean corpuscular hemoglobin concentration (MCHC) determinationOrdered By: Ju Fragoso on 11-10-2024 MCHC (RBC) [Mass/Vol] 31.4 g/dL Low 32-36 [facility] Mean platelet volume determi nationOrdered By: Ju Fragoso on 11-10-2024 Platelet mean volume (Bld) [Entitic vol] 12.8 fL High 6.2-12.0 [facility] Monocyte percentageOrdered B y: Ju Fragoso on 11-10-2024 Monocytes/100 WBC (Bld) 5.8 % 0-10 [facility] Neutrophil percentageOrdered By: Ju Fragoso on 11-10-2024 Neutrophils/100 WBC (Bld) 58.1 % 47-70 [facility] Nucleated red blood cell per centageOrdered By: Ju Fragoso on 11-10-2024 Nucleated RBC/100 WBC (Bld) [Ratio] 0 % 0-5 [facility] Platelet countOrdered By: Lori Fragoso on 11-10-2024 Platelets (Bld) [#/Vol] 96 10*3/uL Low 150-450 [facility] Potassium (Unsp spec) [Mass/ Vol]Ordered By: Ju Fragoso on 11-10-2024 Potassium [Moles/Vol] 3.8 mmol/L 3.3-5.1 [facility] Potassium measurement (mass/ volume)Ordered By: Ju Fragoso on 11-10-2024 Potassium (Unsp spec) [Mass/Vol] 3.8 mmol/L 3.3-5.1 [facility] RBC Auto (Bld) [#/Vol]Ordere d By: Ju Fragoso on 11-10-2024 RBC (Bld) [#/Vol] 2.87 10*6/uL Low 4.6-6.2 [facility] Serum creatinine measurement (mass/volume)Ordered By: Ju Fragoso on 11-10-2024 Creatinine [Mass/Vol] 1.37 mg/dL High 0.70-1.20 [facility] Serum glucose measurement (m ass/volume)Ordered By: Ju Fragoso on 11-10-2024 Glucose [Mass/Vol] 105 mg/dL High 70-99 [facility] Serum or plasma calcium kim urement (mass/volume)Ordered By: Ju Fragoso on 11-10-2024 Calcium [Mass/Vol] 7.9 mg/dL 7.6-11.0 [facility] Serum or plasma urea nitroge n measurement (mass/volume)Ordered By: Ju Fragoso on 11-10-2024 Urea nitrogen [Mass/Vol] 23 mg/dL High 4-19 [facility] Sodium levelOrdered By: Ju Fragoso on 11-10-2024 Sodium [Moles/Vol] 136 mmol/L 133-145 [facility] White blood cell (WBC) count Ordered By: Ju Fragoso on 11-10-2024 WBC (Bld) [#/Vol] 3.5 10*3/uL Low 4.4-11.0 [facility] Basic Metabolic Profile (BMP )on 11-09-2024 BUN/CRE 15.7 RATIO Normal -20 [facility] Comment on above: Performed By: #### L 500.2500, L100.0100 ####[facility] [address] [place], [address] Calcium [Mass/Vol] 8.3 mg/dL Normal 7.6-11.0 [facility] Comment on above: Performed By: #### L 500.2500, L100.0100 ####[facility] [address] [place], [address] Chloride [Moles/Vol] 106 mmol/L Normal 98-108 [facility] Comment on above: Performed By: #### L 500.2500, L100.0100 ####[facility] [address] [place], [address] CO2 [Moles/Vol] 23.9 mmol/L Normal 21.0-32.0 [facility] Comment on above: Performed By: #### L 500.2500, L100.0100 ####[facility] [address] [place], [address] Creatinine [Mass/Vol] 1.52 mg/dL High 0.70-1.20 [facility] Comment on above: Performed By: #### L 500.2500, L100.0100 ####[facility] [address] [place], [address] ECRCL 37.07 ml/min Low 50-250 [facility] Comment on above: Performed By: #### L 500.2500, L100.0100 ####[facility] [address] [place], [address] GAP 9 Normal 5-15 [facility] Comment on above: Performed By: #### L 500.2500, L100.0100 ####[facility] [address] [place], [address] GFR/1.73 sq M.predicted among non-blacks MDRD (S/P/Bld) [Vol rate/Area] 44 mL/min/{1.73_m2} Low >60 [facility] Comment on above: Result Comment: mL/m in/1.73m2 CKD-EPI Creatinine Equation (2020) Performed By: #### L 500.2500, L100.0100 ####[facility] [address] [place], [address] Glucose [Mass/Vol] 102 mg/dL High 70-99 [facility] Comment on above: Performed By: #### L 500.2500, L100.0100 ####[facility] [address] [place], [address] Potassium [Moles/Vol] 4.5 mmol/L Normal 3.3-5.1 [facility] Comment on above: Performed By: #### L 500.2500, L100.0100 ####[facility] [address] [place], [address] Sodium [Moles/Vol] 139 mmol/L Normal 133-145 [facility] Comment on above: Performed By: #### L 500.2500, L100.0100 ####[facility] [address] [place], [address] Urea nitrogen [Mass/Vol] 24 mg/dL High -19 [facility] Comment on above: Performed By: #### L 500.2500, L100.0100 ####[facility] [address] [place], [address] Bedside Glucoseon 11-09-2024 FINGERSTICK GLU 103 mg/dL Normal 74-106 [facility] Comment on above: Result Comment: OSITO AMES OF PATIENT CARE PER NURSING PROTOCOL Performed By: #### L 501.080 ####[facility] [address] [place], [address] FINGERSTICK GLU 105 mg/dL Normal 74-106 [facility] Comment on above: Result Comment: OSITO GEMENT OF PATIENT CARE PER NURSING PROTOCOL Performed By: #### L 501.080 ####[facility] [address] [place], [address] FINGERSTICK GLU 132 mg/dL High 74-106 [facility] Comment on above: Result Comment: OSITO GEMENT OF PATIENT CARE PER NURSING PROTOCOL Performed By: #### L 501.080 ####[facility] [address] [place], [address] FINGERSTICK GLU 111 mg/dL High 74-106 [facility] Comment on above: Result Comment: OSITO GEMENT OF PATIENT CARE PER NURSING PROTOCOL Performed By: #### L 501.080 ####[facility] [address] [place], [address] CBC W/Diff, Automatedon 10-22 PLT EST MOD DEC Normal [facility] Comment on above: Performed By: #### L 500.2500, L100.0100 ####[facility] [address] [place], [address] Platelet estimateOrdered By: Ju Fragoso on 11-09-2024 Platelets LM Ql (Bld) [facility] Platelets LM Ql (Bld)Ordered By: Ju Fragoso on 11-09-2024 Platelet Estimate MOD DEC [facility] 12 Lead EKGon 11-08-2024 12 Lead EKG Normal [facility] Basic Metabolic Profile (BMP )on 11-08-2024 BUN/CRE 14.2 RATIO Normal 10-20 [facility] Comment on above: Performed By: #### L 100.0500, L500.2500 ####[facility] [address] [place], [address] Calcium [Mass/Vol] 8.2 mg/dL Normal 7.6-11.0 [facility] Comment on above: Performed By: #### L 100.0500, L500.2500 ####[facility] [address] [place], [address] Chloride [Moles/Vol] 104 mmol/L Normal 98-108 [facility] Comment on above: Performed By: #### L 100.0500, L500.2500 ####[facility] [address] [place], [address] CO2 [Moles/Vol] 22.9 mmol/L Normal 21.0-32.0 [facility] Comment on above: Performed By: #### L 100.0500, L500.2500 ####[facility] [address] [place], [address] Creatinine [Mass/Vol] 1.56 mg/dL High 0.70-1.20 [facility] Comment on above: Performed By: #### L 100.0500, L500.2500 ####[facility] [address] [place], [address] ECRCL 36.12 ml/min Low 50-250 [facility] Comment on above: Performed By: #### L 100.0500, L500.2500 ####[facility] [address] [place], [address] GAP 12 Normal 5-15 [facility] Comment on above: Performed By: #### L 100.0500, L500.2500 ####[facility] [address] [place], [address] GFR/1.73 sq M.predicted among non-blacks MDRD (S/P/Bld) [Vol rate/Area] 43 mL/min/{1.73_m2} Low >60 [facility] Comment on above: Result Comment: mL/m in/1.73m2 CKD-EPI Creatinine Equation (2020) Performed By: #### L 100.0500, L500.2500 ####[facility] [address] [place], [address] Glucose [Mass/Vol] 92 mg/dL Normal 70-99 [facility] Comment on above: Performed By: #### L 100.0500, L500.2500 ####[facility] [address] [place], [address] Potassium [Moles/Vol] 4.2 mmol/L Normal 3.3-5.1 [facility] Comment on above: Performed By: #### L 100.0500, L500.2500 ####[facility] [address] [place], [address] Sodium [Moles/Vol] 139 mmol/L Normal 133-145 [facility] Comment on above: Performed By: #### L 100.0500, L500.2500 ####[facility] [address] [place], [address] Urea nitrogen [Mass/Vol] 22 mg/dL High 4-19 [facility] Comment on above: Performed By: #### L 100.0500, L500.2500 ####[facility] [address] [place], [address] Bedside Glucoseon 11-08-2024 FINGERSTICK GLU 99 mg/dL Normal 74-106 [facility] Comment on above: Result Comment: OSITO GEMENT OF PATIENT CARE PER NURSING PROTOCOL Performed By: #### L 501.080 ####[facility] [address] [place], [address] FINGERSTICK GLU 81 mg/dL Normal 74-106 [facility] Comment on above: Result Comment: OSITO GEMENT OF PATIENT CARE PER NURSING PROTOCOL Performed By: #### L 501.080 ####[facility] [address] [place], [address] FINGERSTICK GLU 91 mg/dL Normal 74-106 [facility] Comment on above: Result Comment: OSITO GEMENT OF PATIENT CARE PER NURSING PROTOCOL Performed By: #### L 501.080 ####[facility] [address] [place], [address] FINGERSTICK GLU 95 mg/dL Normal 74-106 [facility] Comment on above: Result Comment: OSITO GEMENT OF PATIENT CARE PER NURSING PROTOCOL Performed By: #### L 501.080 ####[facility] [address] [place], [address] FINGERSTICK GLU 110 mg/dL High 74-106 [facility] Comment on above: Result Comment: OSITO GEMENT OF PATIENT CARE PER NURSING PROTOCOL Performed By: #### L 501.080 ####[facility] [address] [place], [address] CBC-Complete Blood Cnt No Di ffon 11-08-2024 Erythrocyte distribution width (RBC) [Ratio] 16.3 % High 11.6-14.6 [facility] Comment on above: Performed By: #### L 100.0500, L500.2500 ####[facility] [address] [place], [address] Hematocrit (Bld) [Volume fraction] 23.9 % Low 40-54 [facility] Comment on above: Performed By: #### L 100.0500, L500.2500 ####[facility] [address] [place], [address] Hemoglobin (Bld) [Mass/Vol] 7.2 g/dL Low 13.0-16.5 [facility] Comment on above: Performed By: #### L 100.0500, L500.2500 ####[facility] [address] [place], [address] MCH (RBC) [Entitic mass] 28.3 pg Normal 27.0-32.0 [facility] Comment on above: Performed By: #### L 100.0500, L500.2500 ####[facility] [address] [place], [address] MCHC (RBC) [Mass/Vol] 30.1 g/dL Low 32-36 [facility] Comment on above: Performed By: #### L 100.0500, L500.2500 ####[facility] [address] [place], [address] MCV (RBC) [Entitic vol] 94.1 fL High 80-94 [facility] Comment on above: Performed By: #### L 100.0500, L500.2500 ####[facility] [address] [place], [address] Platelet mean volume (Bld) [Entitic vol] 13.3 fL High 6.2-12.0 [facility] Comment on above: Performed By: #### L 100.0500, L500.2500 ####[facility] [address] [place], [address] Platelets (Bld) [#/Vol] 100 10*3/uL Low 150-450 [facility] Comment on above: Performed By: #### L 100.0500, L500.2500 ####[facility] [address] [place], [address] RBC (Bld) [#/Vol] 2.54 10*6/uL Low 4.6-6.2 [facility] Comment on above: Performed By: #### L 100.0500, L500.2500 ####[facility] [address] [place], [address] RDW SD 55.7 fl High 35.1-43.9 [facility] Comment on above: Performed By: #### L 100.0500, L500.2500 ####[facility] [address] [place], [address] WBC (Bld) [#/Vol] 3.7 10*3/uL Low 4.4-11.0 [facility] Comment on above: Performed By: #### L 100.0500, L500.2500 ####[facility] [address] [place], [address] CNPNon 11-08-2024 CNPN Normal [facility] EGD Reporton 11-08-2024 EGD Report Normal [facility] Echocardiogram study reportO rdered By: Ernie Powell on 11-08-2024 Study report [facility] [address] [place] [address] Echo Complete 11/08/24 0954 MR#: [id number] Acct: [id number] Name: ANGIE DUTTON Rep #:[id number] : 1940 84 From: Ernie Saucedo Attending Dr: Dr. Ju Fragoso MD Status: ADM IN Ordering Dr: Andrey Mitchell DO Da te: 11/07/24 Location: PCU Sex: M C Admitted: 11/07/24 Reason For Study Reason For Study: CHF Procedure This was a 2D Doppler, Color Flow transthoracic echocardiogram. Patient scanned supine due to condition. Exam performed portable in patient room. Left Ventricle Normal LV size. Moderate concentric left ventricular hypertrophy. Left ventricular systolic function is normal. The left ventricular ejection fraction is 65 %. Stage 3 diastolic dysfunction. No regional wall motion abnormalities noted. Right Ventricle Normal RV size. Normal systolic function. Atria Normal left atrium. Normal right atrium. Mitral Valve Bileaflet diffuse mitral valve thickening. Mild (1+) eccentric mitral valve insufficiency. Tricuspid Valve Normal tricuspid valve. Mild (1+) tricuspid valve insufficiency. Pulmonary artery systolic pressure is 36 mmHg. Aortic Valve Trisinus/trileaflet aortic valve. Mild focal aortic valve calcification. Trivialaortic valve insufficiency. Pulmonic Valve Normal pulmonic valve. Great Vessels Normal aortic root. The pulmonary artery is normal size. Inferior vena cava collapse with respiration. Pericardium/Pleural No pericardial effusion. MMode/2D Measurements & Calculations LVIDd: 3.7 cm IVSd: 1.4 cm Ao root diam: 3.7 cm LVIDs: 2.6 cm LVPWd: 1.5 cm RVDd: 3.5 cm FS: 28.4 % LAV(MOD-bp): 81.2 ml LVAd ap4: 26.2 cm2 SV(MOD-sp4): 50.6 ml LAV(MOD-bp) Indexed: 40.9 ml/m2 LVLd ap4: 7.6 cm SI(MOD-sp4): 25.5 ml/m2 LAV(MOD-sp2): 80.5 ml EDV(MOD-sp4): 74.3 ml LAV(MOD-sp4): 79.1 ml EDV(sp4-el): 76.9 ml LVAs ap4: 13.9 cm2 LVLs ap4: 6.5 cm ESV(MOD-sp4): 23.8 ml ESV(sp4-el): 25.3 ml EF(MOD-sp4): 68.0 % EF(sp4-el): 67.1 % ____ SV(sp4-el): 51.6 ml LA A4 area: 24.0 cm2 LA dimension(2D): 4.6 cm RA A4 area: 16.8 cm2 TAPSE: 1.2 cm Time Measurements MV dec time: 0.17 sec Doppler Measurements & Calculations MV E max yifan: 140.4 cm/sec Lat Peak E' Yifan: 8.5 cm/sec Med Peak E' Yifan: 7.7 cm/sec MV A max yifan: 56.2 cm/sec E/E' lat: 16.5 E/E' med: 18.1 MV E/A: 2.5 MV V2 max: 158.7 cm/sec MV P1/2t max yifan: 160.6 cm/sec Ao V2 max: 154.5 cm/sec MV max P.1 mmHg MV P1/2t: 68.1 msec Ao max P.6 mmHg MV V2 mean: 65.7 cm/sec Ao V2 mean: 102.8 cm/sec MV mean P.4 mmHg MV dec slope: 690.5 cm/sec2 Ao mean P.9 mmHg MV V2 VTI: 41.5 cm MVA(P1/2t): 3.2 cm2 Ao V2 VTI: 31.9 cm AV (velocity ratio): 0.80 AI max yifan: 313.8 cm/sec LV V1 max: 116.0 cm/sec MR max yifan: 430.3 cm/sec AI max P.4 mmHg LV V1 max P.4 mmHg MR max P.1 mmHg LV V1 mean P.0 mmHg MR mean yifan: 328.2 cm/sec AI dec slope: 222.2 cm/sec2 LV V1 mean: 80.7 cm/sec MR mean P.5 mmHg AI P1/2t: 413.7 msec LV V1 VTI: 25.5 cm MR VTI: 131.1 cm PA V2 max: 129.5 cm/sec TR max yifan: 289.0 cm/sec TR max P.4 mmHg ECHO/Echo Complete Interpretation Summary Normal LV size. Left ventricular systolic function is normal. Mild (1+) eccentric mitral valve insufficiency. Bileaflet diffuse mitral valve thickening. Moderate concentric left ventricular hypertrophy. The left ventricular ejection fraction is 65 %. Stage 3 diastolic dysfunction. ___ Ordering Physician: Andrey Mitchell Referring Physician: Andrey Mitchell Performed By: Leonidas Davis RCS 11/08/241516 Date _ Ernie Powell MD CC: PANCHITO Quinteros; Dr. Andrey Mitchell DO; Dr. Ju Fragoso MD~ Date Dictated: 11/08/2454 Date Transcribed: 03/18/25 1517 Health Plan Advisor: Signed [facility] Work Phone: Electrocardiogram reportOrde red By: Ernie Powell on 11-08-2024 EKG study [facility] [address] [place] [address] 12 Lead EKG 11/08/24 0456 MR#: [id number] Acct: [id number] Name: ANGIE DUTTON Fran Rep #:[id number] : 1940 84 From: Ernie Powell MD Attending Dr: Dr. Ju Fragoso MD Status: ADM IN Ordering Dr: Kamaljit Schilling MD Date: Location: [facility] Sex: M C Admitted: 11/07/24 Test Reason : AM EKG Blood Pressure : */* mmHG Vent. Rate : 65 BPM Atrial Rate : 326 BPM P-R Int : * ms QRS Dur : 140 ms QT Int : 466 ms P-R-T Axes : * 253 25 degrees QTcB Int : 484 ms Normal sinus rhythm Right bundle branch block Abnormal ECG When compared with ECG of 07-Nov-2024 15:22, MANUAL COMPARISON REQUIRED DATA IS UNCONFIRMED Confirmed by PAULINO MEZA, ERNIE ([id number]), image editor ESTEPHANIA MCKENZIE ([id number]) on 11/08/2024 8:22:26 AM Referred By: Andrey Mitchell Confirmed By: ERNIE POWELL MD 11/08/24 0822 Date _ Ernie Powell MD CC: PANCHITO Quinteros; Dr. Andrey Mitchell DO; Dr. Kamaljit Schilling MD; Dr. Ju Fragoso MD ~ Signed [facility] Work Phone: EKG study [facility] [address] [place] [address] 12 Lead EKG 11/07/24 1522 MR#: [id number] Acct: [id number] Name: ANGIE DUTTON Rep #:[id number] : 1940 84 From: Ernie Powell MD Attending Dr: Dr. Ju Fragoso MD Status: ADM IN Ordering Dr: Ellyn Mcclain DO Date: 11/07/24 Location: [facility] Sex: M C Admitted: 11/07/24 Test Reason : DYSP Blood Pressure : */* mmHG Vent. Rate : 69 BPM Atrial Rate : * BPM P-R Int : * ms QRS Dur : 138 ms QT Int : 452 ms P-R-T Axes : * 269 24 degrees QTcB Int : 484 ms sinsu rhythm Right bundle branch block Possible Lateral infarct , age undetermined Abnormal ECG Confirmed by PAULINO MEZA, ERNIE ([id number]), image editor ESTEPHANIA MCKENZIE ([id number]) on 11/08/2024 8:15:39 AM Referred By: Andrey Mitchell Confirmed By: ERNIE POWELL MD 11/08/24 0815 Date _ Ernie Powell MD CC: [employer] Vlaery Quinteros; Dr. Andrey Mitchell DO; Dr. Ellyn Mcclain DO;Dr. Ju Fragoso MD ~ Signed [facility] Work Phone: [phone] 11-08-2024 Natriuretic peptide B (Bld) [Mass/Vol] 5530 pg/mL High <=1800 [facility] Comment on above: Result Comment: Hear t Failure Unlikely: < 300 pg/mLHeart Failure Likely< 50 Years: > 450 pg/mL50-75 Years: > 900 pg/mL>75 Years: > 1800 pg/mL Performed By: #### L 503.7505 ####[facility] [address] [place], [place], [address] Laboratory - Chemistry and C hemistry - challengeOrdered By: Ju Fragoso on 11-08-2024 Natriuretic peptide B (Bld) [Mass/Vol] 5530 pg/mL High <1800 [facility] Comment on above: Heart Failure Unlike ly: < 300 pg/mLHeart Failure Likely< 50 Years: > 450 pg/mL50-75 Years: > 900 pg/mL>75 Years: > 1800 pg/mL MR/POSTOP.ANEon 11-08-2024 MR/POSTOP.ANE Normal [facility] MR/[id number] 11-08-2024 MR/POSTOPAN2 Normal [facility] Surgery Specimen Level Darrell 11-08-2024 Surgery Specimen Level IV Normal [facility] Comment on above: Performed By: #### P SUIV ####[facility] [address] [place], [place], [address] 12 Lead EKGon 11-07-2024 12 Lead EKG Normal [facility] Absolute neutrophil countOrd ered By: Ellyn Mcclain on 11-07-2024 Neutrophils (Bld) [#/Vol] 3.4 10*3/uL 2.0-7.7 [facility] Anion gap in Serum or Plasma Ordered By: Ellyn Mcclain on 11-07-2024 Anion gap [Moles/Vol] 12 mmol/L 01-05 [facility] Anion gap in Serum or Plasma Ordered By: Ana Hamilton on 11-07-2024 Anion gap [Moles/Vol] 9 mmol/L 01-05 [facility] Automated blood erythrocyte countOrdered By: Ana Hamilton on 11-07-2024 RBC (Bld) [#/Vol] 2.17 10*6/uL Low 4.6-6.2 [facility] Comment on above: Order Comment: 211 Performed By: #### L 500.2500, L501.5200, L100.4500, L100.0500 ####[facility] [address] [place], [address] Automated blood hematocrit ( percentage)Ordered By: Ana Hamilton on 11-07-2024 Hematocrit (Bld) [Volume fraction] 20.8 % Low 40-54 [facility] Comment on above: Order Comment: 211 Performed By: #### L 500.2500, L501.5200, L100.4500, L100.0500 ####[facility] [address] [place], [address] BRCon 11-07-2024 RC Normal [facility] Comment on above: Result Comment: [id number] OP RC TRANSFUSED 11/09/24 1604 Performed By: #### B RC ####[facility] [address] [place], [address] Result Comment: [id number] OP RC TRANSFUSED 11/07/24 1930 Performed By: #### M 100.7900, BTS, [facility] ####[facility] [address] [place], [address] BUN/creatinine ratioOrdered By: Ellyn Mcclain on 11-07-2024 Urea nitrogen/Creatinine [Mass ratio] 13.5 mg/mg 06-12 [facility] BUN/creatinine ratioOrdered By: Ana Hamilton on 11-07-2024 Urea nitrogen/Creatinine [Mass ratio] 13.6 mg/mg 06-12 [facility] Basic Metabolic Profile (BMP )on 11-07-2024 BUN/CRE 13.5 RATIO Normal 06-12 [facility] Comment on above: Performed By: #### L 500.2500 ####[facility] [address] [place], [address] Calcium [Mass/Vol] 8.4 mg/dL Normal 7.6-11.0 [facility] Comment on above: Performed By: #### L 500.2500 ####[facility] [address] [place], [address] Chloride [Moles/Vol] 102 mmol/L Normal 98-108 [facility] Comment on above: Performed By: #### L 500.2500 ####[facility] [address] [place], [address] CO2 [Moles/Vol] 23.5 mmol/L Normal 21.0-32.0 [facility] Comment on above: Performed By: #### L 500.2500 ####[facility] [address] [place], [address] Creatinine [Mass/Vol] 1.62 mg/dL High 0.70-1.20 [facility] Comment on above: Performed By: #### L 500.2500 ####[facility] [address] [place], [address] ECRCL 34.78 ml/min Low 50-250 [facility] Comment on above: Performed By: #### L 500.2500 ####[facility] [address] [place], [address] GAP 12 Normal 5-15 [facility] Comment on above: Performed By: #### L 500.2500 ####[facility] [address] [place], [address] GFR/1.73 sq M.predicted among non-blacks MDRD (S/P/Bld) [Vol rate/Area] 41 mL/min/{1.73_m2} Low >60 [facility] Comment on above: Result Comment: mL/m in/1.73m2 CKD-EPI Creatinine Equation (2020) Performed By: #### L 500.2500 ####[facility] [address] [place], [address] Glucose [Mass/Vol] 120 mg/dL High 70-99 [facility] Comment on above: Performed By: #### L 500.2500 ####[facility] [address] [place], [address] Potassium [Moles/Vol] 4.0 mmol/L Normal 3.3-5.1 [facility] Comment on above: Performed By: #### L 500.2500 ####[facility] [address] [place], [address] Sodium [Moles/Vol] 138 mmol/L Normal 133-145 [facility] Comment on above: Performed By: #### L 500.2500 ####[facility] [address] [place], [address] Urea nitrogen [Mass/Vol] 22 mg/dL High 4-19 [facility] Comment on above: Performed By: #### L 500.2500 ####[facility] [address] [place], [address] BUN/CRE 13.6 RATIO Normal 10-20 [facility] Comment on above: Order Comment: 211 Performed By: #### L 500.2500, L501.5200, L100.4500, L100.0500 ####[facility] [address] [place], [address] GAP 9 Normal 5-15 [facility] Comment on above: Order Comment: 211 Performed By: #### L 500.2500, L501.5200, L100.4500, L100.0500 ####[facility] [address] [place], [address] Urea nitrogen [Mass/Vol] 22 mg/dL High 4-19 [facility] Comment on above: Order Comment: 211 Performed By: #### L 500.2500, L501.5200, L100.4500, L100.0500 ####[facility] [address] [place], [address] Basic Metabolic Profile (BMP )Ordered By: Ana Hamilton on 11-07-2024 GFR/1.73 sq M.predicted among non-blacks MDRD (S/P/Bld) [Vol rate/Area] 41 mL/min/{1.73_m2} Low >60 [facility] Comment on above: Order Comment: 211 Result Comment: mL/m in/1.73m2 CKD-EPI Creatinine Equation (2020) Performed By: #### L 500.2500, L501.5200, L100.4500, L100.0500 ####[facility] [address] [place], [address] mL/min/1.73m2 CKD-EP I Creatinine Equation (2020) Basophil percentageOrdered B y: Ellyn Mcclain on 11-07-2024 Basophils/100 WBC (Bld) 0.4 % 0-1 [facility] Blood manual differential co mment interpretation (narrative result)Ordered By: Ana Hamilton on 11-07-2024 Manual differential comment Miguel (Bld) [Interp] COMMENT [facility] Comment on above: PLT POPULATION - SLI GHTLY DECREASED. CBC W/Diff, Automatedon 10-22 Absolute Lymph 1.26 X10 3/uL Normal 0.83-4.51 [facility] Comment on above: Performed By: #### L 100.0100 ####[facility] [address] [place], [address] Absolute Neut 3.4 X10 3/uL Normal 2.0-7.7 [facility] Comment on above: Performed By: #### L 100.0100 ####[facility] [address] [place], [address] Basophils/100 WBC (Bld) 0.4 % Normal 0-1 [facility] Comment on above: Performed By: #### L 100.0100 ####[facility] [address] [place], [address] Eosinophils/100 WBC (Bld) 1.7 % Normal 0-5 [facility] Comment on above: Performed By: #### L 100.0100 ####[facility] [address] [place], [address] Erythrocyte distribution width (RBC) [Ratio] 16.5 % High 11.6-14.6 [facility] Comment on above: Performed By: #### L 100.0100 ####[facility] [address] [place], [address] Hematocrit (Bld) [Volume fraction] 24.4 % Low 40-54 [facility] Comment on above: Performed By: #### L 100.0100 ####[facility] [address] [place], [address] Hemoglobin (Bld) [Mass/Vol] 7.2 g/dL Low 13.0-16.5 [facility] Comment on above: Performed By: #### L 100.0100 ####[facility] [address] [place], [address] IG% 0.800 Normal 0.0-0.9 [facility] Comment on above: Result Comment: IG% - Immature Granulocytes (promyelocytes, myelocytes andmetamyelocytes) > 1% indicates that a LEFT SHIFT is Present. Performed By: #### L 100.0100 ####[facility] [address] [place], [address] Lymphocytes/100 WBC (Bld) 24.4 % Normal 19-41 [facility] Comment on above: Performed By: #### L 100.0100 ####[facility] [address] [place], [address] MCH (RBC) [Entitic mass] 28.3 pg Normal 27.0-32.0 [facility] Comment on above: Performed By: #### L 100.0100 ####[facility] [address] [place], [address] MCHC (RBC) [Mass/Vol] 29.5 g/dL Low 32-36 [facility] Comment on above: Performed By: #### L 100.0100 ####[facility] [address] [place], [address] MCV (RBC) [Entitic vol] 96.1 fL High 80-94 [facility] Comment on above: Performed By: #### L 100.0100 ####[facility] [address] [place], [address] Monocytes/100 WBC (Bld) 6.0 % Normal 0-10 [facility] Comment on above: Performed By: #### L 100.0100 ####[facility] [address] [place], [address] Neutrophils/100 WBC (Bld) 66.7 % Normal 47-70 [facility] Comment on above: Performed By: #### L 100.0100 ####[facility] [address] [place], [address] Nucleated RBC (Bld) [#/Vol] 0 10*3/uL Normal 0-5 [facility] Comment on above: Performed By: #### L 100.0100 ####[facility] [address] [place], [address] Platelet mean volume (Bld) [Entitic vol] 13.0 fL High 6.2-12.0 [facility] Comment on above: Performed By: #### L 100.0100 ####[facility] [address] [place], [address] Platelets (Bld) [#/Vol] 117 10*3/uL Low 150-450 [facility] Comment on above: Performed By: #### L 100.0100 ####[facility] [address] [place], [address] RBC (Bld) [#/Vol] 2.54 10*6/uL Low 4.6-6.2 [facility] Comment on above: Performed By: #### L 100.0100 ####[facility] [address] [place], [address] RDW SD 58.0 fl High 35.1-43.9 [facility] Comment on above: Performed By: #### L 100.0100 ####[facility] [address] [place], [address] WBC (Bld) [#/Vol] 5.2 10*3/uL Normal 4.4-11.0 [facility] Comment on above: Performed By: #### L 100.0100 ####[facility] [address] [place], [address] CBC-Complete Blood Cnt No Di ffon 11-07-2024 Erythrocyte distribution width (RBC) [Ratio] 16.5 % High 11.6-14.6 [facility] Comment on above: Order Comment: 211 Performed By: #### L 500.2500, L501.5200, L100.4500, L100.0500 ####[facility] [address] [place], [address] RDW SD 57.7 fl High 35.1-43.9 [facility] Comment on above: Order Comment: 211 Performed By: #### L 500.2500, L501.5200, L100.4500, L100.0500 ####[facility] [address] [place], [address] Carbon dioxide, total [Moles /volume] in Central venous bloodOrdered By: Ellyn Mcclain on 11-07-2024 CO2 [Moles/Vol] 23.5 mmol/L 21.0-32.0 [facility] Carbon dioxide, total [Moles /volume] in Central venous bloodOrdered By: Ana Hamilton on 11-07-2024 CO2 [Moles/Vol] 23.8 mmol/L 21.0-32.0 [facility] Comment on above: Order Comment: 211 Performed By: #### L 500.2500, L501.5200, L100.4500, L100.0500 ####[facility] [address] [place], [address] Chest 1 View (Portable)on Chest 1 View (Portable) Normal [facility] Chloride assayOrdered By: Estevan Mcclain on 11-07-2024 Chloride [Moles/Vol] 102 mmol/L 98-108 [facility] Chloride assayOrdered By: Lv Hamilton on 11-07-2024 Chloride [Moles/Vol] 104 mmol/L 98-108 [facility] Comment on above: Order Comment: 211 Performed By: #### L 500.2500, L501.5200, L100.4500, L100.0500 ####[facility] [address] [place], [address] Differential Commenton 11-07 SMEAR COMMENT COMMENT Normal [facility] Comment on above: Order Comment: 211 Result Comment: PLT POPULATION - SLIGHTLY DECREASED. Performed By: #### L 500.2500, L501.5200, L100.4500, L100.0500 ####[facility] [address] [place], [place], [address] Echo Completeon 11-07-2024 Echo Complete Normal [facility] Emergency Department Summary on 11-07-2024 Emergency Department Summary Normal [facility] Eosinophil percentageOrdered By: Ellyn Mcclain on 11-07-2024 Eosinophils/100 WBC (Bld) 1.7 % 0-5 [facility] Erythrocyte distribution wid th ratioOrdered By: Ellyn Mcclain on 11-07-2024 Erythrocyte distribution width (RBC) [Ratio] 16.5 % High 11.6-14.6 [facility] Erythrocyte distribution wid th standard deviationOrdered By: Ellyn Mcclain on 11-07-2024 Erythrocyte distribution width (RBC) [Entitic vol] 58.0 fL High 35.1-43.9 [facility] Erythrocyte distribution wid th standard deviationOrdered By: Ana Hamilton on 11-07-2024 Erythrocyte distribution width (RBC) [Entitic vol] 57.7 fL High 35.1-43.9 [facility] Erythrocyte distribution width (RBC) [Ratio] 57.7 fl High 35.1-43.9 [facility] Estimation of creatinine ed aranceOrdered By: Ellyn Mcclain on 11-07-2024 Estimated Creatinine Clearance Calc 34.78 ml/min Low 50-250 [facility] GFR/1.73 sq M.predicted fermin g non-blacks MDRD (S/P/Bld) [Vol rate/Area]Ordered By: Ellyn Mcclain on 11-07-2024 Estimated GFR (MDRD) Non-Af Amer 41 Low >60 [facility] Comment on above: mL/min/1.73m2 CKD-EP I Creatinine Equation (2020) H AND P Exam - [facility] 11-07-2024 H&P Exam - Hospitalist Normal [facility] Hematocrit Auto (Bld) [Volum e fraction]Ordered By: Ellyn Mcclain on 11-07-2024 Hematocrit (Bld) [Volume fraction] 24.4 % Low 40-54 [facility] Hemoglobin measurementOrdere d By: Ellyn Mcclain on 11-07-2024 Hemoglobin (Bld) [Mass/Vol] 7.2 g/dL Low 13.0-16.5 [facility] Hemoglobin measurementOrdere d By: Ana Hamilton on 11-07-2024 Hemoglobin (Bld) [Mass/Vol] 6.1 g/dL Low 13.0-16.5 [facility] Comment on above: Order Comment: 211 Performed By: #### L 500.2500, L501.5200, L100.4500, L100.0500 ####[facility] [address] [place], [address] Immature granulocytes/100 WB C Auto (Bld)Ordered By: Ellyn Mcclain on 11-07-2024 Immature granulocytes/100 WBC (Bld) 0.800 % 0.0-0.9 [facility] Comment on above: IG% - Immature Granu locytes (promyelocytes, myelocytes and metamyelocytes) > 1% indicates that a LEFT SHIFT is Present. Lower GI hemoglobin IA Ql (S tl)Ordered By: Ellyn Mcclain on 11-07-2024 Stool Occult Blood (JOVANY) Positive Abnormal [facility] Lymphocytes Auto (Unsp spec) [#/Vol]Ordered By: Ellyn Mcclain on 11-07-2024 Lymphocytes (Bld) [#/Vol] 1.26 10*3/uL 0.83-4.51 [facility] Lymphocytes/100 WBC Auto (Un sp spec)Ordered By: Ellyn Mcclain on 11-07-2024 Lymphocytes/100 WBC (Bld) 24.4 % 19-41 [facility] MCV (mean corpuscular volume ) determinationOrdered By: Ellyn Mcclain on 11-07-2024 MCV (RBC) [Entitic vol] 96.1 fL High 80-94 [facility] MCV (mean corpuscular volume ) determinationOrdered By: Ana Hamilton on 11-07-2024 MCV (RBC) [Entitic vol] 95.9 fL High 80-94 [facility] Comment on above: Order Comment: 211 Performed By: #### L 500.2500, L501.5200, L100.4500, L100.0500 ####[facility] [place] [address] [place], [address] MR/CON.PCM.GIon 11-07-2024 MR/CON.PCM.GI Normal [facility] Magnesium measurement (mass/ volume)Ordered By: Ana Hamilton on 11-07-2024 Magnesium [Mass/Vol] 2.3 mg/dL High 1.5-2.2 [facility] Comment on above: Order Comment: 211 Performed By: #### L 500.2500, L501.5200, L100.4500, L100.0500 ####[facility] [address] [place], [address] Magnesium (Unsp spec) [Mass/Vol] 2.3 mg/dL High 1.5-2.2 [facility] Manual differential comment Miguel (Bld) [Interp]Ordered By: Ana Hamilton on 11-07-2024 Differential Comment COMMENT [facility] Comment on above: PLT POPULATION - SLI GHTLY DECREASED. Mean corpuscular hemoglobin (MCH) determinationOrdered By: Ellyn Mcclain on 11-07-2024 MCH (RBC) [Entitic mass] 28.3 pg 27.0-32.0 [facility] Mean corpuscular hemoglobin (MCH) determinationOrdered By: Ana Hamilton on 03-17-2025 MCH (RBC) [Entitic mass] 28.1 pg 27.0-32.0 [facility] Comment on above: Order Comment: 211 Performed By: #### L 500.2500, L501.5200, L100.4500, L100.0500 ####[facility] [address] [place], [place], [id number] Mean corpuscular hemoglobin concentration (MCHC) determinationOrdered By: Ellyn Mcclain on 11-07-2024 MCHC (RBC) [Mass/Vol] 29.5 g/dL Low 32-36 [facility] Mean corpuscular hemoglobin concentration (MCHC) determinationOrdered By: Ana Hamilton on 11-07-2024 MCHC (RBC) [Mass/Vol] 29.3 g/dL Low 32-36 [facility] Comment on above: Order Comment: 211 Performed By: #### L 500.2500, L501.5200, L100.4500, L100.0500 ####[facility] [address] [place], [place], [id number] Mean platelet volume determi nationOrdered By: Ellyn Mcclain on 11-07-2024 Platelet mean volume (Bld) [Entitic vol] 13.0 fL High 6.2-12.0 [facility] Mean platelet volume determi nationOrdered By: Ana Hamilton on 11-07-2024 Platelet mean volume (Bld) [Entitic vol] 13.1 fL High 6.2-12.0 [facility] Comment on above: Order Comment: 211 Performed By: #### L 500.2500, L501.5200, L100.4500, L100.0500 ####[facility] [address] [place], [place], [id number] Monocyte percentageOrdered B y: Ellyn Mcclain on 11-07-2024 Monocytes/100 WBC (Bld) 6.0 % 0-10 [facility] Neutrophil percentageOrdered By: Ellyn Mcclain on 11-07-2024 Neutrophils/100 WBC (Bld) 66.7 % 47-70 [facility] Nucleated red blood cell per centageOrdered By: Ellyn Mcclain on 11-07-2024 Nucleated RBC/100 WBC (Bld) [Ratio] 0 % 0-5 [facility] Platelet countOrdered By: Estevan Mcclain on 11-07-2024 Platelets (Bld) [#/Vol] 117 10*3/uL Low 150-450 [facility] Platelet countOrdered By: Lv Hamilton on 11-07-2024 Platelets (Bld) [#/Vol] 91 10*3/uL Low 150-450 [facility] Comment on above: Order Comment: 211 Performed By: #### L 500.2500, L501.5200, L100.4500, L100.0500 ####[facility] [address] [place], [address] Potassium (Unsp spec) [Mass/ Vol]Ordered By: Ellyn Mcclain on 11-07-2024 Potassium [Moles/Vol] 4.0 mmol/L 3.3-5.1 [facility] Potassium measurement (mass/ volume)Ordered By: Ana Hamilton on 11-07-2024 Potassium [Moles/Vol] 4.3 mmol/L Normal 3.3-5.1 [facility] Comment on above: Order Comment: 211 Performed By: #### L 500.2500, L501.5200, L100.4500, L100.0500 ####[facility] [address] [place], [address] Potassium (Unsp spec) [Mass/Vol] 4.3 mmol/L 3.3-5.1 [facility] RBC Auto (Bld) [#/Vol]Ordere d By: Ellyn Mcclain on 11-07-2024 RBC (Bld) [#/Vol] 2.54 10*6/uL Low 4.6-6.2 [facility] Serum creatinine measurement (mass/volume)Ordered By: Ellyn Mcclain on 11-07-2024 Creatinine [Mass/Vol] 1.62 mg/dL High 0.70-1.20 [facility] Serum creatinine measurement (mass/volume)Ordered By: Ana Hamilton on 11-07-2024 Creatinine [Mass/Vol] 1.61 mg/dL High 0.70-1.20 [facility] Comment on above: Order Comment: 211 Performed By: #### L 500.2500, L501.5200, L100.4500, L100.0500 ####[facility] [address] [place], [address] Serum glucose measurement (m ass/volume)Ordered By: Ellyn Mcclain on 11-07-2024 Glucose [Mass/Vol] 120 mg/dL High 70-99 [facility] Serum glucose measurement (m ass/volume)Ordered By: Ana Hamilton on 11-07-2024 Glucose [Mass/Vol] 100 mg/dL High 70-99 [facility] Comment on above: Order Comment: 211 Performed By: #### L 500.2500, L501.5200, L100.4500, L100.0500 ####[facility] [address] [place], [address] Serum or plasma calcium kim urement (mass/volume)Ordered By: Ellyn Mcclain on 11-07-2024 Calcium [Mass/Vol] 8.4 mg/dL 7.6-11.0 [facility] Serum or plasma calcium kim urement (mass/volume)Ordered By: Ana Hamilton on 11-07-2024 Calcium [Mass/Vol] 8.2 mg/dL 7.6-11.0 [facility] Comment on above: Order Comment: 211 Performed By: #### L 500.2500, L501.5200, L100.4500, L100.0500 ####[facility] [address] [place], [address] Serum or plasma urea nitroge n measurement (mass/volume)Ordered By: Ellyn Mcclain on 11-07-2024 Urea nitrogen [Mass/Vol] 22 mg/dL High 4-19 [facility] Sodium levelOrdered By: Gonzalo Mcclain on 11-07-2024 Sodium [Moles/Vol] 138 mmol/L 133-145 [facility] Sodium levelOrdered By: Shari Hamilton on 11-07-2024 Sodium [Moles/Vol] 137 mmol/L 133-145 [facility] Comment on above: Order Comment: 211 Performed By: #### L 500.2500, L501.5200, L100.4500, L100.0500 ####[facility] [address] [place], [address] Stool Occult Blood iFOBon STOB Positive Normal [facility] Comment on above: Performed By: #### M 100.7900, S, BRC ####[facility] [address] [place], [address] Stool gastrointestinal hemog lobin detection by immunologic methodOrdered By: Ellyn Mcclain on 11-07-2024 Lower GI hemoglobin IA Ql (Stl) Positive Abnormal [facility] Type AND Screenon 11-07-2024 ABO and Rh group Nom (Bld) Blood group O Rh(D) positive Normal [facility] Comment on above: Order Comment: CMV N EG? NNumber of units to transfuse: 1Is pt's Hgb is = to 7.0 mg/dl or Hct </= 21%? YReason for Ordering Blood: AcuteAre the blood/blood products to be transfused? YIs the patient having/had surgery? NWraj Kirby Performed By: #### M 100.7900, BTS, BRC ####[facility] [address] [place], [address] White blood cell (WBC) count Ordered By: Ellyn Mcclain on 11-07-2024 WBC (Bld) [#/Vol] 5.2 10*3/uL 4.4-11.0 [facility] White blood cell (WBC) count Ordered By: Ana Hamilton on 11-07-2024 WBC (Bld) [#/Vol] 3.6 10*3/uL Low 4.4-11.0 [facility] Comment on above: Order Comment: 211 Performed By: #### L 500.2500, L501.5200, L100.4500, L100.0500 ####[facility] [address] [place], [address] CNPNon 10-31-2024 CNPN Normal [facility] CNNURSEon 10-27-2024 CNNURSE Normal [facility] Calculated very low density lipoprotein (VLDL) cholesterol measurementOrdered By: Ana Hamilton on 10-26-2024 Calculated very low density lipoprotein (VLDL) cholesterol measurement 16 mg/dL [facility] VLDL Cholesterol 16 mg/dL [facility] LDL calc ser/plasOrdered By: Ana Hamilton on 10-26-2024 Cholesterol in LDL [Mass/Vol] 35 mg/dL [facility] Comment on above: Pdxbfzqklt=499-522 m g/dL & Higher Muzp=348 mg/dL or greater LDL Cholesterol, Calculated 35 mg/dL [facility] Comment on above: Jhsarxjaqd=149-585 m g/dL & Higher Havp=960 mg/dL or greater Lipid Profileon 10-26-2024 CHOL:HDL 2.15 Normal [facility] Comment on above: Order Comment: Performed By: #### L 500.4100 ####[facility] [address] [place], [address] Cholesterol [Mass/Vol] 96 mg/dL Normal <=200 [facility] Comment on above: Order Comment: Result Comment: Chol esterol level, Desirable <200 mg/dLBorderline high cholesterol 200-239 mg/dLHigh cholesterol >=240 mg/dLRecommendations of the NCEP Adult Treatment Panel for thefollowing risk-cutoff thresholds for the [place] Americanpulation. Performed By: #### L 500.4100 ####[facility] [address] [place], [address] Cholesterol in HDL [Mass/Vol] 45 mg/dL Normal [facility] Comment on above: Order Comment: Result Comment: Nava onal Cholesterol Education Program (NCEP) guidelines:<40 mg/dL: Low HDL-cholesterol (major risk factor for CHD)>= 60 mg/dL: High HDL-cholesterol (negative risk factor forCHD)HDL-cholesterol is affected by a number of factors, e.g.smoking, exercise, hormones, sex and age. Performed By: #### L 500.4100 ####[facility] [address] [place], [address] Cholesterol in LDL [Mass/Vol] 35 mg/dL Normal [facility] Comment on above: Order Comment: Result Comment: Bord wxdzyb=056-081 mg/dL Higher Piri=691 mg/dL or greater Performed By: #### L 500.4100 ####[facility] [address] [facility] [address] Cholesterol in VLDL [Mass/Vol] 16 mg/dL Normal 5-40 [facility] Comment on above: Order Comment: Performed By: #### L 500.4100 ####[facility] [address] [place], [address] Triglyceride [Mass/Vol] 82 mg/dL Normal [facility] Comment on above: Order Comment: Result Comment: The drugs N-Acetylcysteine and Metamizole may falselydepress this assay.Normal range: <150 mg/dLBorderline High: 150-199 mg/dLHigh: 200-499 mg/dLVery High: >500 mg/dL Performed By: #### L 500.4100 ####[facility] [address] [place], [place], [phone]) Screening total cholesterol/ high density lipoprotein (HDL) cholesterol ratioOrdered By: Ana Hamilton on 10-26-2024 Cholesterol.total/Barbie sterol in HDL [Mass ratio] 2.15 {ratio} [facility] Serum or plasma cholesterol in HDL measurement (mass/volume)Ordered By: Ana Hamilton on 10-26-2024 Cholesterol in HDL [Mass/Vol] 45 mg/dL >40 [facility] Comment on above: National Cholesterol Education Program (NCEP) guidelines:<40 mg/dL: Low HDL-cholesterol (major risk factor for CHD)>= 60 mg/dL: High HDL-cholesterol (negative risk factor for CHD)HDL-cholesterol is affected by a number of factors, e.g. smoking, exercise, hormones, sex and age. Serum or plasma cholesterol measurement (mass/volume)Ordered By: Ana Hamilton on 10-26-2024 Cholesterol [Mass/Vol] 96 mg/dL <201 [facility] Comment on above: Cholesterol level, D esirable <200 mg/dLBorderline high cholesterol 200-239 mg/dLHigh cholesterol >=240 mg/dLRecommendations of the NCEP Adult Treatment Panel for the following risk-cutoff thresholds for the [place] population. Triglycerides measurementOrd ered By: Ana Hamilton on 10-26-2024 Triglyceride [Mass/Vol] 82 mg/dL <199 [facility] Comment on above: The drugs N-Acetylcy steine and Metamizole may falsely depress this assay. Normal range: <150 mg/dLBorderline High: 150-199 mg/dLHigh: 200-499 mg/dLVery High: >500 mg/dL CNPNon 10-21-2024 CNPN Normal [facility] CNNURSEon 10-20-2024 CNNURSE Normal [facility] XR HIP 3V PELV+ AP/LAT RTon 10-20-2024 XR HIP 3V PELV+ AP/LAT RT * * *Final Report* * * DATE OF EXAM: Oct 20 2024 12:34PM [facility] 5352 - XR HIP 3V PELV+ AP/LAT RT / PROCEDURE REASON: Z96.641-Status post right hip replacement * * * * Physician Interpretation * * * * PROCEDURE: Pelvis and right hip INDICATION: Status post right hip replacement .f/u right hip replacement TECHNIQUE: XR HIP 3V PELV+ AP/LAT RT COMPARISON: 10/07/2024 FINDINGS: The total hip arthroplasty remains in satisfactory position. Intact cables. No periprosthetic lucency or fracture. Persistent but improving postoperative soft tissue emphysema. Skin tutu remain. Advanced left hip osteoarthrosis. IMPRESSION: Stable right [employer] Advisor: SERAFIN Transcribe Date/Time: Oct 25 2024 1:34P Dictated by : MARYBEL LINDA MD This examination was interpreted and the report reviewed and electronically signed by: MARYBEL LINDA MD on Oct 25 2024 1:35PM EST [id number] Normal [facility] Absolute neutrophil countOrd ered By: Ana Hamilton on 10-17-2024 Neutrophils (Bld) [#/Vol] 5.2 10*3/uL 2.0-7.7 [facility] Basic Metabolic Profile (BMP )on 10-17-2024 BUN/CRE 17.0 RATIO Normal 10-20 [facility] Comment on above: Order Comment: 211.1 Performed By: #### L 100.0100, L503.0105, L500.2500, L501.9985 ####[facility] [address] [place], [address] CA,Total 8.7 mg/dL Normal 8.5-10.1 [facility] Comment on above: Order Comment: 211.1 Performed By: #### L 100.0100, L503.0105, L500.2500, L501.9985 ####[facility] [address] [place], [address] Chloride [Moles/Vol] 104 mmol/L Normal 98-107 [facility] Comment on above: Order Comment: 211.1 Performed By: #### L 100.0100, L503.0105, L500.2500, L501.9985 ####[facility] [address] [place], [address] CO2 [Moles/Vol] 27.0 mmol/L Normal 21.0-32.0 [facility] Comment on above: Order Comment: 211.1 Performed By: #### L 100.0100, L503.0105, L500.2500, L501.9985 ####[facility] [address] [place], [address] Creatinine [Mass/Vol] 1.12 mg/dL Normal 0.70-1.30 [facility] Comment on above: Order Comment: 211.1 Result Comment: The validity of the calculated GFR GFRAA in patients over70 years has not been determined. Clinical correlation isessential. Performed By: #### L 100.0100, L503.0105, L500.2500, L501.9985 ####[facility] [address] [place], [address] EST GFR - AA 80 mL/min Normal >60 [facility] Comment on above: Order Comment: 211.1 Result Comment: Afri can [place] GFR Calc Performed By: #### L 100.0100, L503.0105, L500.2500, L501.9985 ####[facility] [address] [place], [address] GAP 6 Normal 5-15 [facility] Comment on above: Order Comment: 211.1 Performed By: #### L 100.0100, L503.0105, L500.2500, L501.9985 ####[facility] [address] [place], [address] GFR/1.73 sq M.predicted among non-blacks MDRD (S/P/Bld) [Vol rate/Area] 66 mL/min/{1.73_m2} Normal >60 [facility] Comment on above: Order Comment: 211.1 Result Comment: Non- GFR Calc Performed By: #### L 100.0100, L503.0105, L500.2500, L501.9985 ####[facility] [address] [place], [address] Glucose [Mass/Vol] 116 mg/dL High 74-106 [facility] Comment on above: Order Comment: 211.1 Result Comment: Fast ing Glucose result from 100 to 125 mg/dLsuggests IMPAIRED HOMEOSTASIS per A.D.A. criteria. Performed By: #### L 100.0100, L503.0105, L500.2500, L501.9985 ####[facility] [address] [place], [address] Potassium [Moles/Vol] 4.3 mmol/L Normal 3.5-5.1 [facility] Comment on above: Order Comment: 211.1 Performed By: #### L 100.0100, L503.0105, L500.2500, L501.9985 ####[facility] [address] [place], [address] Sodium [Moles/Vol] 137 mmol/L Normal 136-145 [facility] Comment on above: Order Comment: 211.1 Performed By: #### L 100.0100, L503.0105, L500.2500, L501.9985 ####[facility] [address] [place], [address] Urea nitrogen [Mass/Vol] 19 mg/dL High 7-18 [facility] Comment on above: Order Comment: 211.1 Performed By: #### L 100.0100, L503.0105, L500.2500, L501.9985 ####[facility] [address] [place], [address] Blood band neutrophil count as percentage of total leukocytesOrdered By: Ana Hamilton on 10-17-2024 Band form neutrophils/100 WBC (Bld) 2 % 0-5 [facility] Blood eosinophils/100 leukoc ytesOrdered By: Ana Hamilton on 10-17-2024 Eosinophils/100 WBC (Bld) 2 % 0-5 [facility] Blood lymphocytes/100 leukoc ytesOrdered By: Ana Hamilton on 10-17-2024 Lymphocytes/100 WBC (Bld) 15 % Low 19-41 [facility] Blood metamyelocytes/100 toma kocytesOrdered By: Ana Hamilton on 10-17-2024 Metamyelocytes/100 WBC (Bld) 4 % High 0-1 [facility] Blood monocytes/100 leukocyt esOrdered By: Ana Hamilton on 10-17-2024 Monocytes/100 WBC (Bld) 6 % 0-10 [facility] Blood urea nitrogen (BUN)/cr eatinine ratioOrdered By: Ana Hamilton on 10-17-2024 Urea nitrogen/Creatinine [Mass ratio] 17.0 mg/mg 10-20 [facility] CBC W/Diff, Automatedon 09-25 PATH REV Reviewed Normal [facility] Comment on above: Order Comment: 211.1 Result Comment: Neut rophilic left shift.Normocytic anemia.Clinical correlation necessary.Rich Solomon M.D. 10/17/24 AMENDED REPORT 10/17/24 1534 PATH REV previously reported as: Annmarie negrete Performed By: #### L 100.0100, L503.0105, L500.2500, L501.9985 ####[facility] [address] [place], [address] Carbon dioxide measurementOr dered By: Ana Hamilton on 10-17-2024 CO2 [Moles/Vol] 27.0 mmol/L 21.0-32.0 [facility] Cells counted Molgen (Bld/Ti ss) [#]Ordered By: Ana Hamilton on 10-17-2024 Differential Total Cells Counted 100 MANUAL DIFF [facility] Chloride measurementOrdered By: Ana Hamilton on 10-17-2024 Chloride [Moles/Vol] 104 mmol/L 98-107 [facility] Erythrocyte distribution wid th ratioOrdered By: Ana Hamilton on 10-17-2024 Erythrocyte distribution width (RBC) [Ratio] 14.8 % High 11.6-14.6 [facility] Erythrocyte distribution wid th standard deviationOrdered By: Ana Hamilton on 10-17-2024 Erythrocyte distribution width (RBC) [Entitic vol] 48.8 fL High 35.1-43.9 [facility] Estimated glomerular filtrat ion rate (GFR) AmericanOrdered By: Ana Hamilton on 10-17-2024 Estimated GFR (MDRD) Amer 80 mL/min >60 [facility] Comment on above: GFR Calc Glomerular filtration rate ( GFR) estimationOrdered By: Ana Hamilton on 10-17-2024 Estimated GFR (MDRD) Non-Af Amer 66 mL/min >60 [facility] Comment on above: Non- GFR Calc Glucose measurementOrdered B y: Ana Hamilton on 10-17-2024 Glucose [Mass/Vol] 116 mg/dL High 74-106 [facility] Comment on above: Fasting Glucose resu lt from 100 to 125 mg/dL suggests IMPAIRED HOMEOSTASIS per A.D.A. criteria. Hematocrit Auto (Bld) [Volum e fraction]Ordered By: Ana Hamilton on 10-17-2024 Hematocrit (Bld) [Volume fraction] 28.0 % Low 40-54 [facility] Hemoglobin A1con 10-17-2024 HbA1c (Bld) [Mass fraction] 5.2 % Normal 3.8-5.6 [facility] Comment on above: Order Comment: 211.1 Result Comment: Norm al < 5.7 % Prediabetic 5.7 - 6.4 % Diabetic >or= 6.5 % Please note range changes. Performed By: #### L 100.0100, L503.0105, L500.2500, L501.9985 ####[facility] [address] [place], [address] Hemoglobin A1c percentageOrd ered By: Ana Hamilton on 10-17-2024 HbA1c (Bld) [Mass fraction] 5.2 % 3.8-5.6 [facility] Comment on above: Normal < 5.7 % Predi abetic 5.7 - 6.4 % Diabetic >or= 6.5 % Please note range changes. Hemoglobin measurementOrdere d By: Ana Hamilton on 10-17-2024 Hemoglobin (Bld) [Mass/Vol] 8.8 g/dL Low 13.0-16.5 [facility] Lymphocytes Auto (Unsp spec) [#/Vol]Ordered By: Ana Hamilton on 10-17-2024 Lymphocytes (Bld) [#/Vol] 1.06 10*3/uL 0.83-4.51 [facility] MCV (mean corpuscular volume ) determinationOrdered By: Ana Hamilton on 10-17-2024 MCV (RBC) [Entitic vol] 91.2 fL 80-94 [facility] Mean corpuscular hemoglobin (MCH) determinationOrdered By: Ana Hamilton on 10-17-2024 MCH (RBC) [Entitic mass] 28.7 pg 27.0-32.0 [facility] Mean corpuscular hemoglobin concentration (MCHC) determinationOrdered By: Ana Hamilton on 10-17-2024 MCHC (RBC) [Mass/Vol] 31.4 g/dL Low 32-36 [facility] Mean platelet volume determi nationOrdered By: Ana Hamilton on 10-17-2024 Platelet mean volume (Bld) [Entitic vol] 12.9 fL High 6.2-12.0 [facility] Neutrophil percentageOrdered By: Ana Hamilton on 10-17-2024 Neutrophils (%) (Auto) Not Reportable [facility] Pathologist review Miguel (Unsp spec) [Interp]Ordered By: Ana Hamilton on 10-17-2024 Differential Pathologist's Review Reviewed [facility] Comment on above: Previous reported re sult: Annmarie negrete Edited by: SITA on 10/17/24:1534Neutrophilic left shift.Normocytic anemia.Clinical correlation necessary.Rich Solomon M.D. 10/17/24 AMENDED REPORT 10/17/24 1534 PATH REV previously reported as: Annmaire negrete Platelet countOrdered By: Lv Hamilton on 10-17-2024 Platelets (Bld) [#/Vol] 176 10*3/uL 150-450 [facility] Platelets LM Ql (Bld)Ordered By: Ana Hamilton on 10-17-2024 Platelet Estimate A ADEQ [facility] Polychromasia LM Ql (Bld)Ord ered By: Ana Hamilton on 10-17-2024 Polychromasia 1+ [facility] Potassium measurementOrdered By: Ana Hamilton on 10-17-2024 Potassium [Moles/Vol] 4.3 mmol/L 3.5-5.1 [facility] RBC Auto (Bld) [#/Vol]Ordere d By: Ana Hamilton on 10-17-2024 RBC (Bld) [#/Vol] 3.07 10*6/uL Low 4.6-6.2 [facility] Segmented neutrophils/100 WB C (Bld)Ordered By: Ana Hamilton on 10-17-2024 Neutrophils/100 WBC (Bld) 71 % High 47-70 [facility] Serum anion gap measurementO rdered By: Ana Hamilton on 10-17-2024 Anion gap [Moles/Vol] 6 mmol/L 5-15 [facility] Serum or plasma calcium kim urement (mass/volume)Ordered By: Ana Hamilton on 10-17-2024 Calcium [Mass/Vol] 8.7 mg/dL 8.5-10.1 [facility] Serum or plasma creatinine m easurement (mass/volume)Ordered By: Ana Hamilton on 10-17-2024 Creatinine [Mass/Vol] 1.12 mg/dL 0.70-1.30 [facility] Comment on above: The validity of the calculated GFR & GFRAA in patients over 70 years has not been determined. Clinical correlation is essential. Serum or plasma urea nitroge n measurement (mass/volume)Ordered By: Ana Hamilton on 10-17-2024 Urea nitrogen [Mass/Vol] 19 mg/dL High 7-18 [facility] Sodium levelOrdered By: Shari Hamilton on 10-17-2024 Sodium [Moles/Vol] 137 mmol/L 136-145 [facility] Vitamin B12on 10-17-2024 Cobalamin (Vitamin B12) [Mass/Vol] 253 pg/mL Normal 211-911 [facility] Comment on above: Order Comment: 211.1 Performed By: #### L 100.0100, L503.0105, L500.2500, L501.9985 ####[facility] [address] [place], [place], [id number] Vitamin B12 measurementOrder ed By: Ana Hamilton on 10-17-2024 Cobalamin (Vitamin B12) [Mass/Vol] 253 pg/mL 211-911 [facility] White blood cell (WBC) count Ordered By: Ana Hamilton on 10-17-2024 WBC (Bld) [#/Vol] 7.1 10*3/uL 4.4-11.0 [facility] CBC panel Auto (Bld)on 10-14 Erythrocyte distribution width (RBC) [Ratio] 14.5 % Normal 11.5-15.0 [facility] Comment on above: Order Comment: Speci men Type: BLOOD SPECIMENOrdering Facility: [facility] Address: [address] [place] [address] Performed By: #### 5 8410-2 ####[facility]ORY[facility] [id number] [address] [place] Hematocrit (Bld) [Volume fraction] 27.4 % Low 39.0-51.0 [facility] Comment on above: Order Comment: Speci men Type: BLOOD SPECIMENOrdering Facility: [facility] Address: [address] [place] [address] Performed By: #### 5 8410-2 ####[facility]ORYCLIA [id number] [place] [address] [place] Hemoglobin (Bld) [Mass/Vol] 8.8 g/dL Low 13.0-17.0 [facility] Comment on above: Order Comment: Speci men Type: BLOOD SPECIMENOrdering Facility: [facility] Address: [address] [place] [address] Performed By: #### 5 8410-2 ####[facility]ORY[facility] [id number] [address] [place] MCH (RBC) [Entitic mass] 28.6 pg Normal 26.0-34.0 [facility] Comment on above: Order Comment: Speci men Type: BLOOD SPECIMENOrdering Facility: [facility] Address: [address] [place] [address] Performed By: #### 5 8410-2 ####[facility]ORY[facility] [id number] [address] [place] MCHC (RBC) [Mass/Vol] 32.1 g/dL Normal 30.5-36.0 [facility] Comment on above: Order Comment: Speci men Type: BLOOD SPECIMENOrdering Facility: [facility] Address: [address] [place] [address] Performed By: #### 5 8410-2 ####[facility]ORATORYCLIA [id number] [address] [place] MCV (RBC) [Entitic vol] 89.0 fL Normal 80.0-100.0 [facility] Comment on above: Order Comment: Speci men Type: BLOOD SPECIMENOrdering Facility: [facility] Address: [address] [place] [address] Performed By: #### 5 8410-2 ####[facility]ORATORYCLIA [id number] [address] [place] Nucleated RBC (Bld) [#/Vol] 10*3/uL Normal <0.01 [facility] Comment on above: Order Comment: Speci men Type: BLOOD SPECIMENOrdering Facility: [facility] Address: [address] [place] [address] Performed By: #### 5 8410-2 ####[facility]ORATORYCLIA [id number] [address] [place] Platelet mean volume (Bld) [Entitic vol] 11.9 fL Normal 9.0-12.7 [facility] Comment on above: Order Comment: Speci men Type: BLOOD SPECIMENOrdering Facility: [facility] Address: [address] [place] [address] Performed By: #### 5 8410-2 ####[facility]ORATORYCLIA [id number] [address] [place] Platelets (Bld) [#/Vol] 148 10*3/uL Low 150-400 [facility] Comment on above: Order Comment: Speci men Type: BLOOD SPECIMENOrdering Facility: [facility] Address: [address] [place] [address] Result Comment: No c lot detected. Performed By: #### 5 8410-2 ####[facility]ORATORYCLIA [id number] [address] RBC (Bld) [#/Vol] 3.08 10*6/uL Low 4.20-6.00 [facility] Comment on above: Order Comment: Briana lobo Type: BLOOD SPECIMENOrdering Facility: [facility] Address: [address] [place] [address] Performed By: #### 5 8410-2 ####[facility]ORATORYCLIA [id number] [address] WBC (Bld) [#/Vol] 6.04 10*3/uL Normal 3.70-11.00 [facility] Comment on above: Order Comment: Briana lobo Type: BLOOD SPECIMENOrdering Facility: [facility] Address: [address] [place] [address] Performed By: #### 5 8410-2 ####[facility] LABORATORYCLIA [id number] [address] CNDSon 10-14-2024 CNDS HNO ID: [id number] Author: RYAN ALONZO MD Service: Orthopaedic Surgery Author Type: Physician Contact Lens Curve Grinder Type: Discharge Summary Filed: 10/14/2024 12:52 Note Text: ----- Attestation signed by Ryan Alonzo MD at 10/14/2024 12:52 PM Agree with the note as documented below Ryan Alonzo MD ----- DISCHARGE SUMMARY PATIENT NAME: Angie Dutton ADMISSION DATE: 10/07/2024 DISCHARGE DATE: 10/14/2024 PATIENT DISCHARGE SUMMARY C O N F I D E N T I A L I N F O R M A T I O N The following is a brief overview of your hospitalization. Some of the information contained on this summary may be confidential. This information should be kept in your records and should be shared with your regular doctor. These instructions explain what you or your nonfarm animal caretaker need to do to continue your care at home or at another healthcare facility Please go over these instructions with your nurse and nonfarm animal caretaker. If you are not sure about something, please ask. ----- --------- Highest Readmission Risk Score: 33 The 30 day readmissions risk score is derived from an internally validated risk model which evaluates patient level characteristics, utilization history, medication orders and lab results up until the day of discharge. Patients with a score of 39 or above are considered highest risk for readmission. Specific patient level drivers will be listed at the bottom of the summary. The 30 day readmissions risk score is derived from an internally validated risk model which evaluates patient level characteristics, utilization history, medication orders and lab results up until the day of discharge. Patients with a score of 40 or above are considered highest risk for readmission. Where I Will be Going after Discharge: Alf Facility My Condition at Discharge: Stable PRINCIPAL DIAGNOSIS: (Reason after study for this admission): Procedure(s): ROBOTIC ASSISTED ANTERIOR TOTAL HIP ARTHROPLASTY OTHER DIAGNOSES: Patient Active Hospital Problem List: S/P total right hip arthroplasty Date Noted: 10/10/2024 Pressure injury of coccygeal region, stage 1 Date Noted: 10/10/2024 At high risk for impaired skin integrity Date Noted: 10/10/2024 Coronary artery disease involving [place] coronary artery of [place] heart without angina pectoris Date Noted: 10/13/2024 OPERATIONS PERFORMED: Procedure(s): ROBOTIC ASSISTED ANTERIOR TOTAL HIP ARTHROPLASTY My Doctors and Medical Team: My Main Hospital Doctor: Doctor Alonzo, Ryan Starr MD PHYSICAL EXAM: See daily progress note Vitals: BP (!) 95/48 Pulse 76 Temp 37 ?C (98.6 ?F) (Oral) Resp 17 Ht 176.5 cm (5' 9.5) Wt 75 kg (165 lb 5.5 oz) SpO2 96% BMI 24.07 kg/m? SUMMARY OF WHAT HAPPENED WHILE PATIENT WAS IN THE HOSPITAL: The patient was followed by Dr. Alonzo in clinic for right hip osteoarthritis. It was determined the patient would benefit from right total hip arthroplasty. The procedure, its risks, benefits, and potential complications were discussed in detail prior to surgery. The patient conveyed understanding of all topics and consented to surgery. The patient was admitted to the hospital. Underwent an elective right total hip arthroplasty on 10/07/[address] Alonzo. The patient tolerated the procedure well and was returned to the Post Anesthesia Care Unit in stable condition. Vital signs per PACU protocol. VTE risk assessment performed. O2 therapy monitored by Respiratory Therapy to include incentive spirometry, ADL, wound and support per physician order set postop protocol. PT and OT to evaluate and treat. IV antibiotics, antiemetics, DVT prophylaxis and pain medication were given. Post operative course complicated by afib with RVR and recurrent SVT. Cardiology service was consulted and recommended starting amiodarone. The patient progressed with physical therapy. Lab values and vital signs were monitored and remained stable. The incision remained clean, dry and intact. Thigh and calf are not swollen. No signs of DVT or infection. Thew patient was medically cleared for discharge to SNF by the Internal Medicine service. The patient progressed with physical therapy towards goal of safety and independence. Patient was determined safe for discharge to SNF on 10/14/2024. TREATMENT / WOUND CARE: If you have any concerns about your wound, please contact the office. Keep wound and incision area clean and dry. Maintain silverlon dressing until you see Dr. Alonzo's team for follow up on 10/20/24 If it remains drainage-free, you may leave the dressing off, keeping the wound open to air. If there is any drainage please contact the office You ma (more content not included)... Normal [facility] CNPNon 10-14-2024 CNPN Normal [facility] metabolic 2000 panelon 10-14-2024 Albumin [Mass/Vol] 3.0 g/dL Low 3.9-4.9 [facility] Comment on above: Order Comment: Speci men Type: BLOOD SPECIMEN [facility] Address: [address] [place] [address] Performed By: #### 5 8410-2 #### [facility] CLIA [id number] [address] [place] [address] [place] ALP [Catalytic activity/Vol] 72 U/L Normal 38-113 [facility] Comment on above: Order Comment: Speci men Type: BLOOD SPECIMEN [facility] Address: [address] [place] [address] Performed By: #### 5 8410-2 #### [facility] CLIA [id number] [address] ALT [Catalytic activity/Vol] U/L Low 10-54 [facility] Comment on above: Order Comment: Speci men Type: BLOOD SPECIMEN [facility] Address: [address] [place] [address] Performed By: #### 5 8410-2 #### [facility] CLIA [id number] [address] Anion gap [Moles/Vol] 10 mmol/L Normal 8-15 [facility] Comment on above: Order Comment: Speci men Type: BLOOD SPECIMEN [facility] Address: [address] [place] [address] Performed By: #### 5 8410-2 #### [facility] CLIA [id number] [address] AST [Catalytic activity/Vol] 37 U/L Normal 14-40 [facility] Comment on above: Order Comment: Speci men Type: BLOOD SPECIMEN [facility] Address: [address] [place] [address] Performed By: #### 5 8410-2 #### [facility] CLIA [id number] [address] [place] [address] [place] Bilirubin [Mass/Vol] 0.5 mg/dL Normal 0.2-1.3 [facility] Comment on above: Order Comment: Speci men Type: BLOOD SPECIMEN [facility] Address: [address] [place] [address] Performed By: #### 5 8410-2 #### [facility] CLIA [id number] [address] [place] [address] [place] Calcium [Mass/Vol] 8.9 mg/dL Normal 8.5-10.2 [facility] Comment on above: Order Comment: Speci men Type: BLOOD SPECIMEN [facility] Address: [address] [place] [address] Performed By: #### 5 8410-2 #### [facility] CLIA [id number] [address] [place] Chloride [Moles/Vol] 100 mmol/L Normal 98-107 [facility] Comment on above: Order Comment: Speci men Type: BLOOD SPECIMEN [facility] Address: [address] [place] [address] Performed By: #### 5 8410-2 #### [facility] CLIA [id number] [address] [place] [address] [place] CO2 [Moles/Vol] 26 mmol/L Normal 22-30 [facility] Comment on above: Order Comment: Speci men Type: BLOOD SPECIMEN [facility] Address: [address] [place] [address] Performed By: #### 5 8410-2 #### [facility] CLIA [id number] [address] [place] [address] [place] Creatinine [Mass/Vol] 1.13 mg/dL Normal 0.73-1.22 [facility] Comment on above: Order Comment: Speci men Type: BLOOD SPECIMEN [facility] Address: [address] [place] [address] Performed By: #### 5 8410-2 #### [facility] CLIA [id number] [address] [place] [address] [place] Creatinine and Glomerular filtration rate.predicted panel (S/P/Bld) 63 mL/min/1.73m??? Normal >=60 [facility] Comment on above: Order Comment: Briana lobo Type: BLOOD SPECIMEN [facility] Address: [address] [place] [address] Result Comment: Lynette mated Glomerular Filtration Rate (eGFR) is calculated using the 2020 CKD-EPI creatinine equation. This equation utilizes serum creatinine, sex, and age as parameters. The creatinine assay has traceable calibration to isotope dilution-mass spectrometry. Refer to KDIGO guidelines for clinical interpretation. In patients with unstable renal function, e.g. those with acute kidney injury, the eGFR may not accurately reflect actual GFR. Performed By: #### 5 8410-2 #### [facility] CLIA [id number] [address] [place] [address] [place] Glucose [Mass/Vol] 118 mg/dL High 74-99 [facility] Comment on above: Order Comment: Briana lobo Type: BLOOD SPECIMEN [facility] Address: [address] [place] [address] Result Comment: The [place] [employer] (ADA) provides guidance for cutoff values for fasting glucose and random glucose. The ADA defines fasting as no caloric intake for at least 8 hours. Fasting plasma glucose results between 100 to 125 mg/dL indicate increased risk for diabetes (prediabetes). Fasting plasma glucose results greater than or equal to 126 mg/dL meet the criteria for diagnosis of diabetes. In the absence of unequivocal hyperglycemia, results should be confirmed by repeat testing. In a patient with classic symptoms of hyperglycemia or hyperglycemic crisis, random plasma glucose results greater than or equal to 200 mg/dL meet the criteria for diagnosis of diabetes. Reference: Standards of Medical Care in Diabetes 2016, [place] [employer]. Diabetes Care. 2016.39(Suppl 1). Performed By: #### 5 8410-2 #### [facility] CLIA [id number] [address] [place] Potassium [Moles/Vol] 4.7 mmol/L Normal 3.7-5.1 [facility] Comment on above: Order Comment: Briana lobo Type: BLOOD SPECIMEN [facility] Address: [address] [place] [address] Performed By: #### 5 8410-2 #### [facility] CLIA [id number] [address] [place] Protein [Mass/Vol] 5.6 g/dL Low 6.3-8.0 [facility] Comment on above: Order Comment: Speci men Type: BLOOD SPECIMEN [facility] Address: [address] [place] [address] Performed By: #### 5 8410-2 #### [facility] CLIA [id number] [address] [place] [address] [place] Sodium [Moles/Vol] 136 mmol/L Normal 136-144 [facility] Comment on above: Order Comment: Speci men Type: BLOOD SPECIMEN [facility] Address: [address] [place] [address] Performed By: #### 5 8410-2 #### [facility] CLIA [id number] [address] [place] [address] [place] Urea nitrogen [Mass/Vol] 21 mg/dL Normal 9-24 [facility] Comment on above: Order Comment: Speci men Type: BLOOD SPECIMEN [facility] Address: [address] [place] [address] Performed By: #### 5 8410-2 #### [facility] CLIA [id number] [address] [place] HIGH SENSITIVITY TROPONIN To n 10-14-2024 Troponin T.cardiac High sensitivity method [Mass/Vol] 60 ng/L High <12 [facility] Comment on above: Order Comment: Speci men Type: BLOOD SPECIMEN [facility] Address: [address] [place] [address] Performed By: #### 5 8410-2 #### [facility] CLIA [id number] [address] [place] Magnesium SerPl-mCncon 10-14 Magnesium [Mass/Vol] 2.3 mg/dL Normal 1.7-2.3 [facility] Comment on above: Order Comment: Speci men Type: BLOOD SPECIMEN [facility] Address: [address] [place] [address] Performed By: #### 5 8410-2 #### [facility] CLIA [id number] [address] [place] [address] [place] NURSING PROGon 10-14-2024 NURSING PROG HNO ID: [id number] Author: AKI MURRIETA RN Service: Nursing Author Type: Registered Nurse Type: Nursing Progress Note Filed: 10/14/2024 07:41 Note Text: Pt called RN in stating he was having trouble breathing. Vitals 105/40, HR 70, 20, BGT 124, 95%RA. Diaphoretic, chest pain, SOB. PROTOZOOLOGISTSaulo Copeland, ZOË Shoemaker notified at 0725 [facility] Basic metabolic 2000 panelon 10-13-2024 Anion gap [Moles/Vol] 10 mmol/L Normal 8-15 [facility] Comment on above: Order Comment: Speci men Type: BLOOD SPECIMENOrdering Facility: [facility] Address: [address] [place] [address] Performed By: #### 1 9123-9, 25527-0, TSHRF ####[facility]ATORYCLIA [id number] [place] [address] [place] Calcium [Mass/Vol] 8.7 mg/dL Normal 8.5-10.2 [facility] Comment on above: Order Comment: Speci men Type: BLOOD SPECIMENOrdering Facility: [facility] Address: [address] [place] [address] Performed By: #### 1 9123-9, 21770-4, TSHRF ####[facility]ATORYCLIA [id number] [place] [address] [place] Chloride [Moles/Vol] 100 mmol/L Normal 98-107 [facility] Comment on above: Order Comment: Speci men Type: BLOOD SPECIMENOrdering Facility: [facility] Address: [address] [place] [address] Performed By: #### 1 9123-9, 52168-8, TSHRF ####[facility]ORATORYCLIA [id number] [place] [address] [place] CO2 [Moles/Vol] 26 mmol/L Normal 22-30 [facility] Comment on above: Order Comment: Briana lobo Type: BLOOD SPECIMENOrdering Facility: [facility] Address: [address] [place] [address] Performed By: #### 1 9123-9, 82523-6, TSHRF ####[facility]ORATORYCLIA [id number] [place] [address] [place] Creatinine [Mass/Vol] 1.20 mg/dL Normal 0.73-1.22 [facility] Comment on above: Order Comment: Specrigo men Type: BLOOD SPECIMENOrdering Facility: [facility] Address: [address] [place] [address] Performed By: #### 1 9123-9, 47839-1, TSHRF ####[facility]ATORYCLIA [id number] [address] Creatinine and Glomerular filtration rate.predicted panel (S/P/Bld) 59 mL/min/1.73m??? Low >=60 [facility] Comment on above: Order Comment: Briana lobo Type: BLOOD SPECIMENOrdering Facility: [facility] Address: [address] [place] [address] Result Comment: Lynette mated Glomerular Filtration Rate (eGFR) is calculated using the 2020 CKD-EPI creatinine equation. This equation utilizes serum creatinine, sex, and age as parameters. The creatinine assay has traceable calibration to isotope dilution-mass spectrometry. Refer to KDIGO guidelines for clinical interpretation. In patients with unstable renal function, e.g. those with acute kidney injury, the eGFR may not accurately reflect actual GFR. Performed By: #### 1 9123-9, 63634-0, TSHRF ####[facility]ORATORYCLIA [id number] [place] [id number] [place] Glucose [Mass/Vol] 104 mg/dL High 74-99 [facility] Comment on above: Order Comment: Briana men Type: BLOOD SPECIMENOrdering Facility: [facility] Address: [address] [place] [address] Result Comment: The [place] [employer] (ADA) provides guidance for cutoff values for fasting glucose and random glucose. The ADA defines fasting as no caloric intake for at least 8 hours. Fasting plasma glucose results between 100 to 125 mg/dL indicate increased risk for diabetes (prediabetes). Fasting plasma glucose results greater than or equal to 126 mg/dL meet the criteria for diagnosis of diabetes. In the absence of unequivocal hyperglycemia, results should be confirmed by repeat testing. In a patient with classic symptoms of hyperglycemia or hyperglycemic crisis, random plasma glucose results greater than or equal to 200 mg/dL meet the criteria for diagnosis of diabetes. Reference: Standards of Medical Care in Diabetes 2016, [place] [employer]. Diabetes Care. 2016.39(Suppl 1). Performed By: #### 1 9123-9, 29392-3, TSHRF ####[facility]ORATORYCLIA [id number] [place] [address] [place] Potassium [Moles/Vol] 4.5 mmol/L Normal 3.7-5.1 [facility] Comment on above: Order Comment: Briana lobo Type: BLOOD SPECIMENOrdering Facility: [facility] Address: [address] [place] [address] Performed By: #### 1 91239, 13023-7, TSHRF ####[facility]ORATORYCLIA [id number] [place] [address] [place] Sodium [Moles/Vol] 136 mmol/L Normal 136-144 [facility] Comment on above: Order Comment: Briana lobo Type: BLOOD SPECIMENOrdering Facility: [facility] Address: [address] [place] [address] Performed By: #### 1 91239, 68346-8, TSHRF ####[facility]ATORYCLIA [id number] [place] [address] [place] Urea nitrogen [Mass/Vol] 20 mg/dL Normal 9-24 [facility] Comment on above: Order Comment: Briana lobo Type: BLOOD SPECIMENOrdering Facility: [facility] Address: [address] [place] [address] Performed By: #### 1 91239, 07144-3, TSHRF ####[facility]ATORYCLIA [id number] [address] CBC panel Auto (Bld)on 10-13 Erythrocyte distribution width (RBC) [Ratio] 14.5 % Normal 11.5-15.0 [facility] Comment on above: Order Comment: Speci men Type: BLOOD SPECIMENOrdering Facility: [facility] Address: [address] [place] [address] Performed By: #### 5 8410-2 ####[facility]ORYCLIA [id number] [address] Hematocrit (Bld) [Volume fraction] 28.1 % Low 39.0-51.0 [facility] Comment on above: Order Comment: Speci men Type: BLOOD SPECIMENOrdering Facility: [facility] Address: [address] [place] [address] Performed By: #### 5 8410-2 ####[facility]ORYCLIA [id number] [address] Hemoglobin (Bld) [Mass/Vol] 8.9 g/dL Low 13.0-17.0 [facility] Comment on above: Order Comment: Speci men Type: BLOOD SPECIMENOrdering Facility: [facility] Address: [address] [place] [address] Performed By: #### 5 8410-2 ####[facility]ORYCLIA [id number] [address] MCH (RBC) [Entitic mass] 28.4 pg Normal 26.0-34.0 [facility] Comment on above: Order Comment: Speci men Type: BLOOD SPECIMENOrdering Facility: [facility] Address: [address] [place] [address] Performed By: #### 5 8410-2 ####[facility]ORYCLIA [id number] [address] MCHC (RBC) [Mass/Vol] 31.7 g/dL Normal 30.5-36.0 [facility] Comment on above: Order Comment: Speci men Type: BLOOD SPECIMENOrdering Facility: [facility] Address: [address] [place] [address] Performed By: #### 5 8410-2 ####[facility]ORYCLIA [id number] [place] [address] [place] MCV (RBC) [Entitic vol] 89.8 fL Normal 80.0-100.0 [facility] Comment on above: Order Comment: Speci men Type: BLOOD SPECIMENOrdering Facility: [facility] Address: [address] [place] [address] Performed By: #### 5 8410-2 ####[facility]ORYCLIA [id number] [place] [address] [place] Nucleated RBC (Bld) [#/Vol] 10*3/uL Normal <0.01 [facility] Comment on above: Order Comment: Speci men Type: BLOOD SPECIMENOrdering Facility: [facility] Address: [address] [place] [address] Performed By: #### 5 8410-2 ####[facility]ORYCLIA [id number] [address] [place] Platelet mean volume (Bld) [Entitic vol] 12.5 fL Normal 9.0-12.7 [facility] Comment on above: Order Comment: Speci men Type: BLOOD SPECIMENOrdering Facility: [facility] Address: [address] [place] [address] Performed By: #### 5 8410-2 ####[facility]ORYCLIA [id number] [address] [place] Platelets (Bld) [#/Vol] 114 10*3/uL Low 150-400 [facility] Comment on above: Order Comment: Speci men Type: BLOOD SPECIMENOrdering Facility: [facility] Address: [address] [place] [address] Performed By: #### 5 8410-2 ####[facility]ORYCLIA [id number] [place] [address] [facility] [place] RBC (Bld) [#/Vol] 3.13 10*6/uL Low 4.20-6.00 [facility] Comment on above: Order Comment: Speci men Type: BLOOD SPECIMENOrdering Facility: [facility] Address: [address] [place] [address] Performed By: #### 5 8410-2 ####[facility] [id number] [place] [id number] [place] WBC (Bld) [#/Vol] 4.74 10*3/uL Normal 3.70-11.00 [facility] Comment on above: Order Comment: Speci men Type: BLOOD SPECIMENOrdering Facility: [facility] Address: [address] [place], [place] [address] Performed By: #### 5 8410-2 ####[facility] [id number] [place] [id number] [place] Magnesium SerPl-mCncon 10-13 Magnesium [Mass/Vol] 2.0 mg/dL Normal 1.7-2.3 [facility] Comment on above: Order Comment: Speci men Type: BLOOD SPECIMENOrdering Facility: [facility] Address: [address] [place] [address] Performed By: #### 1 9123-9, 38907-3, TSHRF ####[facility] [id number] [place] [id number] [place] NURSING PROGon 10-13-2024 NURSING PROG HNO ID: [id number] Author: PO CHARLES RN Service: Nursing Author Type: Registered Nurse Type: Nursing Progress Note Filed: 10/13/2024 10:34 Note Text: Patient walked with PT and felt sweaty and nauseous afterwards. BP 96/61, paged PROTOZOOLOGIST and checked blood sugar which is stable. Treated nausea. Normal [facility] NUTRITIONon 10-13-2024 NUTRITION HNO ID: [id number] Author: MEGHAN BARBA RD Service: Nutrition Therapy Author Type: Registered Dietitian Type: Nutrition Filed: 10/13/2024 13:31 Note Text: NUTRITION THERAPY SCREEN NOTE SERVICE DATE: 10/13/2024 SERVICE TIME: 12:41 pm Care Plan: Continue current diet as tolerated. Consider speech therapy consult if pt unable to tolerating regular texture diet. Supplements: Ensure Max Monitor and Evaluation: Meet greater than 75% of estimated needs Intake History: Current Nutrition Intake: 50-100% of most meals that have been recorded in flowsheets over the past 6 days. Appetite decreased today per pt. We discussed trying boost/ensure while hospitalized. Diet Orders (From admission, onward) Start Ordered 10/13/24 1330 DIET SUPPLEMENTS NOW Question Answer Comment Supplement 1 ENSURE MAX CHOCOLATE Supplement 1 Frequency BREAKFAST 10/13/24 1324 10/07/242129 Diet Carbohydrate Controlled START NOW Question Answer Comment Carbohydrate Control CONSISTENT CARBOHYDRATE Electrolytes 2 GM SODIUM 10/07/242122 Anthropometrics: Height: 176.5 cm (5' 9.5) Weight: 75 kg (165 lb 5.5 oz) Usual Weight: 74.8 kg (165 lb) Usual Weight Obtained From: Chart Review MNT Billing: $ Initial Assessment: 1-15 minutes SIGNATURE: Meghan Barba RD PATIENT NAME: Angie Dutton DATE: October 13, 2024 TIME: 1:29 PM [facility] THERAPY NTon 10-13-2024 THERAPY NT HNO ID: [id number] Author: YADIRA GREGG OTR/Deb Service: Occupational Therapy Author Type: Occupational Therapist Type: Therapy (PT/OT/Speech/Resp) Filed: 10/13/2024 13:24 Note Text: ----- Summary: OT precert note ----- Occupational Therapy Treatment Summary SERVICE DATE: 10/13/2024 SERVICE TIME: 1220 to 1235 ROOM: [place] [address] OT 6 Clicks Score: 15 Total Joint Replacement Discharge Readiness: Not Applicable DISCHARGE RECOMMENDATIONS Subacute/SNF Recommended Discharge Disposition Due to: Functional deficits requiring ongoing therapy service prior to discharge home., ADL impairment, Anticipated community discharge, Functional status decline, Requires multiple therapy disciplines Anticipated Discharge Needs: Physical Assist at Home, Supervision at Home Physical Assist at Home for: Transfers, Finances, Ambulation, Meals, Medication Management, Cleaning, Laundry, Stairs, Safety, Self Care, Shopping, Transportation Supervision at Home due to: Decreased safety awareness, Impaired cognition ASSESSMENT Response to Therapy Interventions: Cognitive Deficits, Needs Frequent Redirection or Reinstruction, Requires Encouragement to Complete Activities PRECAUTIONS Weight Bearing Restrictions, Fall Risk, Lines/Tubes/Drains, Impulsive with Activity, Anterior Hip Precautions, Bed/Chair Alarm standard Right Lower Extremity Weight Bearing Status: Other: See Comment (TDWB) CURRENT HOSPITAL COURSE s/p R PARAS with anterior approach; notified by ortho PA this date 10/13 pt is no longer on bedrest, cleared for mobility and activity with therapies Relevant Past Medical History: Afib, HLD, HTN, TIA, GERD, BPH, anemia, depression HOME LIVING Patient Lives With: Spouse Assistance Available: 24-Hour, Other: See Comment Comments: however spouse has dementia, dtr lives close by Entry To Home: Stairs, With Rail Number Of Stairs Into Home: 3 Number Of Stairs To Bed/Bath: 0 Tub/Shower Type: combo Laundry: self Equipment Owned: Cane, Elevated Toilet Seat, Grab Bars- Shower, Grab Bars- Toilet, Hand Held Shower, Walker- Wheeled PRIOR FUNCTIONAL LEVEL Within Functional Limits, Required Assistance Assistance Required With: Cleaning Pt states he uses milk carton at night to urinate for safety. Reports one fall in last 6 mos. Amb with quad cane with light. Sleeps in flat bed. Drives, shops, most cooking, and laundry Spouse cleans. 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 Baseline Cognition: Other (see comment) (unknown) SUBJECTIVE Patient supine in bed only agreeable to bed level activity with complaints of nauseousness and reports he thinks he may just need to have a bowel movement with nurse aware COGNITION Responsiveness: Alert, Awake Follows Commands: Cueing Needed Cueing to Follow Commands: Moderate Attention Deficits: Distractible THERAPY DIAGNOSIS Reduced mobility-other, Decreased activities of daily living (ADL), Muscle Weakness (generalized), Unsteadiness on feet, Signs and Symptoms Involving Cognitive Functions and Awareness TREATMENT INTERVENTIONS Therapeutic Exercise (30160), Self Snf Management (95972) Timed Code Treatment (minutes): 15 Skilled Treatment Time (minutes): 15 TRAINING AND EDUCATION PROVIDED Benefits of In-Hospital Mobility, Discharge Planning, Disease Specific Education, Exercise Program, Grooming Tasks, Role of Occupational Therapy, Safety/Judgment THERAPEUTIC SKILLS USED Activity Dosing, Cues for Sequencing/Proper Technique for Activity, Cuing Tactile, Cuing Verbal, Physical Assist, Therapeutic Use of Self FUNCTIONAL STATUS Activities of Daily Living Assist Level Additional Information Feeding Set Up Grooming Minimal Assistance, Additional Information brushed hair and washed hands and face seated in bedside chair Bathing Upper Body Minimal Assistance, Additional Information per clinical judgement Bathing Lower Body Maximal Assistance, Additional Information per clinical judgement due to hip precautions Dressing Upper Body Contact Guard Assistance Dressing Lower Body Maximal Assistance due to hip precautions Toileting Maximal Assistance per clinical judgement Mobility Assist Level Additional Information Bed Mobility Rolling: Minimal Assistance, Additional Information Supine To Sit: Maximal Assistance, Additional Information Sit To Supine: Maximal Assistance, Additional Information Sit to Stand Maximal Assistance, Additional Information Stand to Sit Maximal Assistance, Additional Information Bed to Chair Toilet/Commode Shower Functional Mobility Exercise: Completed B UE AROM times 15 reps while supine in bed with patient c/o weakness due to not moving around as much as he normally does. Completed Shoulder flexion/extension, s (more content not included)... [facility] THERAPY NT HNO ID: [id number] Author: TRAY RAMIREZ PT Service: Physical Therapy Author Type: Physical Therapist Type: Therapy (PT/OT/Speech/Resp) Filed: 10/13/2024 10:36 Note Text: ----- Summary: PT treatment ----- Physical Therapy Treatment Summary SERVICE DATE: 10/13/2024 SERVICE TIME: 940 to 1009 ROOM: [id number] PT 6 Clicks Score: 14 Total Joint Replacement Discharge Readiness: Not Applicable DISCHARGE RECOMMENDATIONS Subacute/SNF Recommended Discharge Disposition Comments: Pt currently functioning below baseline s/p R PARAS with increased pain, decreased ROM, decreased strength, impaired activity tolerance, impaired balance, and overall decreased functional mobility. Pt requires daily skilled services post acute stay to address deficits Recommended Discharge Disposition Due to: Functional deficits requiring ongoing therapy service prior to discharge home., Balance deficits, Functional status decline, Requires multiple therapy disciplines Recommended Discharge Equipment: To Be Determined ASSESSMENT Response to Therapy Interventions: Low Activity Tolerance, Limited Participation, Pain, Requires Additional Time to Complete Activities, Cognitive Deficits, Needs Frequent Redirection or Reinstruction, Slow Progression with Functional Activities/Skills pt is very motivated to participate throughout and very appreciative at end of session for PT this date and mobility; that was harder than I thought it would be but it felt good!; oriented x 3 with on/off confusion/forgetfulness evident, pain overall tolerable; max fatigued post- with c/o nausea as well (no vomiting during session), requires assist x 1 with OOB activity; frequent cues for safety, TDWB and to maintain post-op precautions throughout; + fall risk, continues to indicate need for SNF PRECAUTIONS Weight Bearing Restrictions, Fall Risk, Lines/Tubes/Drains, Impulsive with Activity, Anterior Hip Precautions, Bed/Chair Alarm standard Right Lower Extremity Weight Bearing Status: TTWB (Touch Down WB) CURRENT HOSPITAL COURSE s/p R PARAS with anterior approach; notified by ortho PA this date 10/13 pt is no longer on bedrest, cleared for mobility and activity with therapies Relevant Past Medical History: Afib, HLD, HTN, TIA, GERD, BPH, anemia, depression HOME LIVING Patient Lives With: Spouse Assistance Available: 24-Hour, Other: See Comment Comments: however spouse has dementia, dtr lives close by Entry To Home: Stairs, With Rail Number Of Stairs Into Home: 3 Number Of Stairs To Bed/Bath: 0 Tub/Shower Type: combo Laundry: self Equipment Owned: Cane, Elevated Toilet Seat, Grab Bars- Shower, Grab Bars- Toilet, Hand Held Shower, Walker- Wheeled PRIOR FUNCTIONAL LEVEL Within Functional Limits, Required Assistance Assistance Required With: Cleaning Pt states he uses milk carton at night to urinate for safety. Reports one fall in last 6 mos. Amb with quad cane with light. Sleeps in flat bed. Drives, shops, most cooking, and laundry Spouse cleans. 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 SUBJECTIVE Pt resting at approach, oriented x 3, forgetful, requires frequent re-direction, [place], denies pain at rest, medicated for pain by RN at start of session, agreeable to PT treatment, ok per RN for PT THERAPY DIAGNOSIS Reduced mobility-other TREATMENT INTERVENTIONS Therapeutic Exercise (80407), Gait Training (39978), Therapeutic Activity (95581) Timed Code Treatment (minutes): 29 Skilled Treatment Time (minutes): 29 Completes 15 repetitions (unless otherwise indicated) of the following supine therapeutic exercises on B LE with assistance as indicated: ankle pumps (B, min progressing to no assist), quad set X 3-5 second hold, glut sets x 3-5 second hold, heel slides in limited range (minimal assistance), SAQs (minimal assistance for full range), hip abduction in limited range (minimal assistance). verbal, visual and tactile cues throughout for technique, deep breathing/relaxation and for patient to assist throughout as able. Requires assistance as indicated secondary to recent surgery and functional weakness. Appropriately follows simple cues throughout. Rest breaks provided throughout secondary to pain, weakness. Education to patient on benefits/rationale for exercises Skilled judgment was provided in selection of appropriate interventions. TRAINING AND EDUCATION PROVIDED Anatomy and Impact on Deficits, Assistive Device Use, Bed Mobility, Benefits of In-Hospital Mobility, Falls Prevention, Expected Functional Level, Role of Physical Therapy, Sitting Balance, Transfers, Standing Balance, Treatment Protocol, Discharge Planning, Equipment, Exercise Program, Gait Pattern, Reduction of Deviations, Handout Issued, H (more content not included)... Normal [facility] TSH W/REFLEX FT4on 5 TSH Qn 2.510 m[IU]/L Normal 0.270-4.200 [facility] Comment on above: Order Comment: Speci men Type: BLOOD SPECIMENOrdering Facility: [facility] Address: [address] [place] [address] Performed By: #### 1 9123-9, 03699-9, [facility] ####[facility] [id number] [place] [address] [place] Basic metabolic 2000 panelon 10-12-2024 Anion gap [Moles/Vol] 10 mmol/L Normal 8-15 [facility] Comment on above: Order Comment: Speci men Type: BLOOD SPECIMEN [facility] Address: [address] [place] [address] Performed By: #### 2 4321-2 #### [facility] CLIA [id number] [address] [place] [address] [place] Calcium [Mass/Vol] 8.8 mg/dL Normal 8.5-10.2 [facility] Comment on above: Order Comment: Speci men Type: BLOOD SPECIMEN [facility] Address: [address] [place] [address] Performed By: #### 2 4321-2 #### [facility] CLIA [id number] [address] [place] [address] [place] Chloride [Moles/Vol] 103 mmol/L Normal 98-107 [facility] Comment on above: Order Comment: Speci men Type: BLOOD SPECIMEN [facility] Address: [address] [place] [address] Performed By: #### 2 4321-2 #### [facility] CLIA [id number] [address] [place] [address] [place] CO2 [Moles/Vol] 26 mmol/L Normal 22-30 [facility] Comment on above: Order Comment: Speci men Type: BLOOD SPECIMEN [facility] Address: [address] [place] [address] Performed By: #### 2 4321-2 #### [facility] CLIA [id number] [address] [place] [address] [place] Creatinine [Mass/Vol] 1.19 mg/dL Normal 0.73-1.22 [facility] Comment on above: Order Comment: Speci men Type: BLOOD SPECIMEN [facility] Address: [address] [place] [address] Performed By: #### 2 4321-2 #### [facility] CLIA [id number] [address] Creatinine and Glomerular filtration rate.predicted panel (S/P/Bld) 59 mL/min/1.73m??? Low >=60 [facility] Comment on above: Order Comment: Briana yamil Type: BLOOD SPECIMEN [facility] Address: [address] [place] [address] Result Comment: Lynette mated Glomerular Filtration Rate (eGFR) is calculated using the 2020 CKD-EPI creatinine equation. This equation utilizes serum creatinine, sex, and age as parameters. The creatinine assay has traceable calibration to isotope dilution-mass spectrometry. Refer to KDIGO guidelines for clinical interpretation. In patients with unstable renal function, e.g. those with acute kidney injury, the eGFR may not accurately reflect actual GFR. Performed By: #### 2 4321-2 #### [facility] CLIA [id number] [address] [place] [address] [place] Glucose [Mass/Vol] 108 mg/dL High 74-99 [facility] Comment on above: Order Comment: Briana lobo Type: BLOOD SPECIMEN [facility] Address: [address] [place] [address] Result Comment: The [place] [employer] (ADA) provides guidance for cutoff values for fasting glucose and random glucose. The ADA defines fasting as no caloric intake for at least 8 hours. Fasting plasma glucose results between 100 to 125 mg/dL indicate increased risk for diabetes (prediabetes). Fasting plasma glucose results greater than or equal to 126 mg/dL meet the criteria for diagnosis of diabetes. In the absence of unequivocal hyperglycemia, results should be confirmed by repeat testing. In a patient with classic symptoms of hyperglycemia or hyperglycemic crisis, random plasma glucose results greater than or equal to 200 mg/dL meet the criteria for diagnosis of diabetes. Reference: Standards of Medical Care in Diabetes 2016, [place] [employer]. Diabetes Care. 2016.39(Suppl 1). Performed By: #### 2 4321-2 #### [facility] CLIA [id number] [address] Potassium [Moles/Vol] 4.4 mmol/L Normal 3.7-5.1 [facility] Comment on above: Order Comment: Speci men Type: BLOOD SPECIMEN [facility] Address: [address] [place] [address] Performed By: #### 2 4321-2 #### [facility] CLIA [id number] [address] [place] Sodium [Moles/Vol] 139 mmol/L Normal 136-144 [facility] Comment on above: Order Comment: Speci men Type: BLOOD SPECIMEN [facility] Address: [address] [place] [address] Performed By: #### 2 4321-2 #### [facility] CLIA [id number] [address] Urea nitrogen [Mass/Vol] 21 mg/dL Normal 9-24 [facility] Comment on above: Order Comment: Speci men Type: BLOOD SPECIMEN [facility] Address: [address] [place] [address] Performed By: #### 2 4321-2 #### [facility] CLIA [id number] [address] CBC panel Auto (Bld)on 10-12 Erythrocyte distribution width (RBC) [Ratio] 14.6 % Normal 11.5-15.0 [facility] Comment on above: Order Comment: Speci men Type: BLOOD SPECIMEN [facility] Address: [address] [place] [address] Performed By: #### T SCR #### [facility] CLIA [id number] [address] Hematocrit (Bld) [Volume fraction] 28.4 % Low 39.0-51.0 [facility] Comment on above: Order Comment: Speci men Type: BLOOD SPECIMEN [facility] Address: [address] [place] [address] Performed By: #### T SCR #### [facility] CLIA [id number] [address] Hemoglobin (Bld) [Mass/Vol] 9.0 g/dL Low 13.0-17.0 [facility] Comment on above: Order Comment: Speci men Type: BLOOD SPECIMEN [facility] Address: [address] [place] [address] Performed By: #### T SCR #### [facility] CLIA [id number] [address] MCH (RBC) [Entitic mass] 28.8 pg Normal 26.0-34.0 [facility] Comment on above: Order Comment: Speci men Type: BLOOD SPECIMEN [facility] Address: [address] [place] [address] Performed By: #### T SCR #### [facility] CLIA [id number] [address] MCHC (RBC) [Mass/Vol] 31.7 g/dL Normal 30.5-36.0 [facility] Comment on above: Order Comment: Speci men Type: BLOOD SPECIMEN [facility] Address: [address] [place] [address] Performed By: #### T SCR #### [facility] CLIA [id number] [address] MCV (RBC) [Entitic vol] 91.0 fL Normal 80.0-100.0 [facility] Comment on above: Order Comment: Speci men Type: BLOOD SPECIMEN [facility] Address: [address] [place] [address] Performed By: #### T SCR #### [facility] CLIA [id number] [address] Nucleated RBC (Bld) [#/Vol] 10*3/uL Normal <0.01 [facility] Comment on above: Order Comment: Speci men Type: BLOOD SPECIMEN [facility] Address: [address] [place] [address] Performed By: #### T SCR #### [facility] CLIA [id number] [address] Platelet mean volume (Bld) [Entitic vol] 12.3 fL Normal 9.0-12.7 [facility] Comment on above: Order Comment: Speci men Type: BLOOD SPECIMEN [facility] Address: [address] [place] [address] Performed By: #### T SCR #### [facility] CLIA [id number] [address] [place] Platelets (Bld) [#/Vol] 106 10*3/uL Low 150-400 [facility] Comment on above: Order Comment: Speci men Type: BLOOD SPECIMEN [facility] Address: [address] [place] [address] Performed By: #### T SCR #### [facility] CLIA [id number] [address] RBC (Bld) [#/Vol] 3.12 10*6/uL Low 4.20-6.00 [facility] Comment on above: Order Comment: Speci men Type: BLOOD SPECIMEN [facility] Address: [address] [place] [address] Performed By: #### T SCR #### [facility] IA [id number] [address] WBC (Bld) [#/Vol] 5.03 10*3/uL Normal 3.70-11.00 [facility] Comment on above: Order Comment: Speci men Type: BLOOD SPECIMEN [facility] Address: [address] [place] [address] Performed By: #### T SCR #### [facility] IA [id number] [address] THERAPY NTon 10-12-2024 THERAPY NT HNO ID: [id number] Author: YADIRA GREGG OTR/L Service: Occupational Therapy Author Type: Occupational Therapist Type: Therapy (PT/OT/Speech/Resp) Filed: 10/12/2024 13:42 Note Text: ----- Summary: OT missed visit ----- OCCUPATIONAL THERAPY MISSED VISIT SERVICE DATE: 10/12/2024 SERVICE TIME: 1339 ROOM: [place] [address] Patient not seen due to Clinical Appropriateness. Spoke with KELLER MACHINE OPERATOR who reports RN reported patient is on bed rest orders due to surgical site leaking fluid and asked to wait on therapy until tomorrow. Will re-attempt as pt is available and appropriate. SIGNATURE: CARLO Newsome/Deb PATIENT NAME: Angie Dutton DATE: October 12, 2024 TIME: 1:40 PM [facility] THERAPY NT HNO ID: [id number] Author: JENNIFFER VALDEZ PTA Service: Physical Therapy Author Type: Inspector Finishing Type: Therapy (PT/OT/Speech/Resp) Filed: 10/12/2024 13:30 Note Text: ----- Attestation signed by Samia Carrington PT at 10/12/2024 2:38 PM I reviewed and agree with the documentation corresponding to this therapy visit. SIGNATURE: SAMIA CARRINGTON PT DATE: October 12, 2024 TIME: 2:38 PM ----- ----- Summary: PT MV ----- PHYSICAL THERAPY MISSED VISIT SERVICE DATE: 10/12/2024 SERVICE TIME: 1327 ROOM: [place] [address] Patient not seen due to Clinical Appropriateness. Per RN pt is on bed rest orders due to surgical site leaking fluid. Asked to wait on therapy till tomorrow. Will re-attempt as pt is available. SIGNATURE: Jenniffer Valdez PTA PATIENT NAME: Angie Dutton DATE: October 12, 2024 TIME: 1:28 PM Normal [facility] Basic metabolic 2000 panelon 10-11-2024 Anion gap [Moles/Vol] 9 mmol/L Normal 8-15 [facility] Comment on above: Order Comment: Briana lobo Type: BLOOD SPECIMENOrdering Facility: [facility] Address: [address] [place] [address] Performed By: #### 2 4321-2 ####[facility] [id number] [place] [address] [place] Calcium [Mass/Vol] 8.8 mg/dL Normal 8.5-10.2 [facility] Comment on above: Order Comment: Briana lobo Type: BLOOD SPECIMENOrdering Facility: [facility] Address: [address] [place] [address] Performed By: #### 2 4321-2 ####[facility] [id number] [address] [place] [facility] Chloride [Moles/Vol] 102 mmol/L Normal 98-107 [facility] Comment on above: Order Comment: Speci men Type: BLOOD SPECIMENOrdering Facility: [facility] Address: [address] [place] [address] Performed By: #### 2 4321-2 ####[facility] [id number] [address] CO2 [Moles/Vol] 25 mmol/L Normal 22-30 [facility] Comment on above: Order Comment: Briana lobo Type: BLOOD SPECIMENOrdering Facility: [facility] Address: [address] [place] [address] Performed By: #### 2 4321-2 ####[facility] [id number] [address] Creatinine [Mass/Vol] 1.11 mg/dL Normal 0.73-1.22 [facility] Comment on above: Order Comment: Speci men Type: BLOOD SPECIMENOrdering Facility: [facility] Address: [address] [place] [address] Performed By: #### 2 4321-2 ####[facility]CL[facility] [id number] [address] Creatinine and Glomerular filtration rate.predicted panel (S/P/Bld) 65 mL/min/1.73m??? Normal >=60 [facility] Comment on above: Order Comment: Briana [facility] Type: BLOOD SPECIMENOrdering Facility: [facility] Address: [address] [place] [address] Result Comment: Lynette mated Glomerular Filtration Rate (eGFR) is calculated using the 2020 CKD-EPI creatinine equation. This equation utilizes serum creatinine, sex, and age as parameters. The creatinine assay has traceable calibration to isotope dilution-mass spectrometry. Refer to KDIGO guidelines for clinical interpretation. In patients with unstable renal function, e.g. those with acute kidney injury, the eGFR may not accurately reflect actual GFR. Performed By: #### 2 4321-2 ####[facility] [id number] [place] [address] [place] Glucose [Mass/Vol] 96 mg/dL Normal 74-99 [facility] Comment on above: Order Comment: Briana lobo Type: BLOOD SPECIMENOrdering Facility: [facility] Address: [address] [place] [address] Result Comment: [employer] [place] Diabetes Association (ADA) provides guidance for cutoff values for fasting glucose and random glucose. The ADA defines fasting as no caloric intake for at least 8 hours. Fasting plasma glucose results between 100 to 125 mg/dL indicate increased risk for diabetes (prediabetes). Fasting plasma glucose results greater than or equal to 126 mg/dL meet the criteria for diagnosis of diabetes. In the absence of unequivocal hyperglycemia, results should be confirmed by repeat testing. In a patient with classic symptoms of hyperglycemia or hyperglycemic crisis, random plasma glucose results greater than or equal to 200 mg/dL meet the criteria for diagnosis of diabetes. Reference: Standards of Medical Care in Diabetes 2016, [place] [employer]. Diabetes Care. 2016.39(Suppl 1). Performed By: #### 2 4321-2 ####[facility] [id number] [place] [address] [place] Potassium [Moles/Vol] 4.2 mmol/L Normal 3.7-5.1 [facility] Comment on above: Order Comment: Briana lobo Type: BLOOD SPECIMENOrdering Facility: [facility] Address: [address] [place] [address] Performed By: #### 2 4321-2 ####[facility] [id number] [place] [address] [place] Sodium [Moles/Vol] 136 mmol/L Normal 136-144 [facility] Comment on above: Order Comment: Briana lobo Type: BLOOD SPECIMENOrdering Facility: [facility] Address: [address] [place] [address] Performed By: #### 2 4321-2 ####[facility] [id number] [place] [address] [place] Urea nitrogen [Mass/Vol] 19 mg/dL Normal 9-24 [facility] Comment on above: Order Comment: Speci men Type: BLOOD SPECIMENOrdering Facility: [facility] Address: [address] [place] [address] Performed By: #### 2 4321-2 ####[facility] [id number] [address] CBC panel Auto (Bld)on 10-11 Erythrocyte distribution width (RBC) [Ratio] 15.1 % High 11.5-15.0 [facility] Comment on above: Order Comment: Speci men Type: BLOOD SPECIMEN [facility] Address: [address] [place] [address] Performed By: #### 5 8410-2 #### [facility] CLIA [id number] [address] Hematocrit (Bld) [Volume fraction] 27.5 % Low 39.0-51.0 [facility] Comment on above: Order Comment: Speci men Type: BLOOD SPECIMEN [facility] Address: [address] [place] [address] Performed By: #### 5 8410-2 #### [facility] CLIA [id number] [address] Hemoglobin (Bld) [Mass/Vol] 9.1 g/dL Low 13.0-17.0 [facility] Comment on above: Order Comment: Speci men Type: BLOOD SPECIMEN [facility] Address: [address] [place] [address] Performed By: #### 5 8410-2 #### [facility] CLIA [id number] [address] MCH (RBC) [Entitic mass] 29.2 pg Normal 26.0-34.0 [facility] Comment on above: Order Comment: Speci men Type: BLOOD SPECIMEN [facility] Address: [address] [place] [address] Performed By: #### 5 8410-2 #### [facility] CLIA [id number] [address] MCHC (RBC) [Mass/Vol] 33.1 g/dL Normal 30.5-36.0 [facility] Comment on above: Order Comment: Speci men Type: BLOOD SPECIMEN [facility] Address: [address] [place] [address] Performed By: #### 5 8410-2 #### [facility] CLIA [id number] [address] [place] MCV (RBC) [Entitic vol] 88.1 fL Normal 80.0-100.0 [facility] Comment on above: Order Comment: Speci men Type: BLOOD SPECIMEN [facility] Address: [address] [place] [address] Performed By: #### 5 8410-2 #### [facility] CLIA [id number] [address] Nucleated RBC (Bld) [#/Vol] 10*3/uL Normal <0.01 [facility] Comment on above: Order Comment: Speci men Type: BLOOD SPECIMEN [facility] Address: [address] [place] [address] Performed By: #### 5 8410-2 #### [facility] CLIA [id number] [address] [place] Platelet mean volume (Bld) [Entitic vol] 13.0 fL High 9.0-12.7 [facility] Comment on above: Order Comment: Speci men Type: BLOOD SPECIMEN [facility] Address: [address] [place] [address] Performed By: #### 5 8410-2 #### [facility] CLIA [id number] [address] Platelets (Bld) [#/Vol] 87 10*3/uL Low 150-400 [facility] Comment on above: Order Comment: Speci men Type: BLOOD SPECIMEN [facility] Address: [address] [place] [address] Result Comment: No c lot detected. Performed By: #### 5 8410-2 #### [facility] CLIA [id number] [address] [place] RBC (Bld) [#/Vol] 3.12 10*6/uL Low 4.20-6.00 [facility] Comment on above: Order Comment: Speci men Type: BLOOD SPECIMEN [facility] Address: [address] [place] [address] Performed By: #### 5 8410-2 #### [facility] CLIA [id number] [address] [place] WBC (Bld) [#/Vol] 5.27 10*3/uL Normal 3.70-11.00 [facility] Comment on above: Order Comment: Speci men Type: BLOOD SPECIMEN [facility] Address: [address] [place] [address] Performed By: #### 5 8410-2 #### [facility] CLIA [id number] [address] ECG COMPLETEon 10-11-2024 ECG COMPLETE Ventricular Rate : 8 9 BPM Atrial Rate : 89 BPM P-R Interval : 164 ms QRS Duration : 122 ms Q-T Interval : 366 ms QTC Calculation(Bazett) : 445 ms Calculated P [place] : 18 degrees Calculated R [place] : 265 degrees Calculated T [place] : 14 degrees NORMAL SINUS RHYTHM POSSIBLE ANTEROLATERAL INFARCT (CITED ON OR BEFORE 09-Oct-2024) LEFTWARD AXIS WHEN COMPARED WITH ECG OF 09-Oct-2024 17:44, RIGHT BUNDLE BRANCH BLOCK IS NO LONGER PRESENT Confirmed by MD SALOMON QARAB ([id number]) on 10/11/2024 12:52:58 PM NAME : ANGIE DUTTON PID : [id number] : 1940 Gender : Male Race : ORD : [id number] Procedure Date : Oct 11 2024 07:42:02 Edit Date : Oct 11 2024 12:53:00 Diagnosis: NORMAL SINUS RHYTHM POSSIBLE ANTEROLATERAL INFARCT (CITED ON OR BEFORE 09-Oct-2024) LEFTWARD AXIS WHEN COMPARED WITH ECG OF 09-Oct-2024 17:44, RIGHT BUNDLE BRANCH BLOCK IS NO LONGER PRESENT Confirmed by MD SALOMON QARAB ([id number]) on 10/11/2024 12:52:58 PM Test Reason : Arrhythmia Location : 16 : 4S 0407 Overread By : MD SALOMON QARAB Edited By : MD SALOMON QARAB Referred By : , Acquired by : Kelly hope [facility] HIGH SENSITIVITY TROPONIN To n 10-11-2024 Troponin T.cardiac High sensitivity method [Mass/Vol] 100 ng/L High <[address] [place] [address] Comment on above: Order Comment: Briana lobo Type: BLOOD SPECIMEN [facility] Address: [address] [place] [address] Performed By: #### 5 8410-2 #### [facility] CLIA [id number] [address] Troponin T.cardiac High sensitivity method [Mass/Vol] 96 ng/L High <[address] [place] [address] Comment on above: Order Comment: Briana lobo Type: BLOOD SPECIMEN [facility] Address: [address] [place] [address] Performed By: #### T SCR #### [facility] CLIA [id number] [address] Troponin T.cardiac High sensitivity method [Mass/Vol] 103 ng/L High <[address] [place] [address] Comment on above: Order Comment: Briana lobo Type: BLOOD SPECIMENOrdering Facility: [facility] Address: [address] [place] [address] Performed By: #### 1 9123-9, 2777-1, HSTNT ####[facility] [id number] [address] [place] MEDICAL EMERon 10-11-2024 MEDICAL MATT HNO ID: [id number] Author: JANETH MITCHELL APRN.ASSISTANT PORTFOLIO MANAGER Service: Critical Care Author Type: Nurse Practitioner Type: Chg in Clinical Condition Filed: 10/11/2024 08:11 Note Text: EMERGENCY RESPONSE TEAM Rapid Response Date of MET Page: October 11, 2024 Time of MET Page: 0842 Requesting Provider: Bedside RN SUMMARY DIAGNOSIS, ASSESSMENT and RECOMMENDATIONS LEPIDOPTERIST called for SVT. Upon arriving to the room the patient's HR was 180s-190s on the ZOLL. He was complaining of SOB, SANDHU, Dizziness and blurred vision. He was also diaphoretic. While assessing the patient he went out of SVT and into an A. Fib w/ RVR in the 130s. 5mg of IVP metoprolol was administered with conversion to NSR in the 80s. All symptoms were relieved and the patient stated he felt much better. EKG, Troponin, Mag, Phos obtained. RN and PROTOZOOLOGIST will reach out to cardiology to update. Dr. Salomon is following the patient for a previous episode of SVT this admission on 10/09. Continue telemetry. Pt will remain on current floor, but may need to transfer to Step down if he continues to go into arrhythmias. Status: Stable PLAN #SVT; self limited/resolved. #AFib w/ RVR - 5mg IVP metoprolol - Will receive 50mg Metoprolol in AM; RN told to give early - Repeat EKG for any arrhythmia - Cardiology following - Check/Replete electrolytes - Serial HST - Received Amiodarone bolus previously for SVT DISPOSITION and OUTCOME Responded to therapy, remains on current unit under care of: Dr. Solomon. History of Present Illness: This is a 84 year old male who was admitted to the hospital for osteoarthritis. He is status post a right PARAS. Past medical history significant for paroxysmal atrial fibrillation, coronary artery disease, essential hypertension, hyperlipidemia, TIA. PRIMARY REASON FOR CALL Cardiac: Heart rate <40 or >140 with new symptoms Any Heart Rate >150 PAST MEDICAL / SURGICAL HISTORY 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 , PAST SURGICAL HISTORY Procedure Laterality Date ARTHROSCOPY KNEE DIAGNOSTIC W/WO SYNOVIAL BX SPX 2000 both COLONOSCOPY FLX DX W/COLLJ SPEC WHEN PFRMD 2001 Colonoscopy COLONOSCOPY FLX DX W/COLLJ SPEC WHEN PFRMD 07/13/2014 Colonoscopy COLONOSCOPY GEN ANES 11/26/2020 CORONARY ARTERY BYP W/VEIN AND ARTERY GRAFT 3 VEIN 1981 CABG, three grafts EGD 11/26/2020 EGD 02/14/2021 EYE SURGERY HX FOOT SURGERY HX Left HEART SURGERY HX NEUROPLASTY AND/TRANSPOS MEDIAN NRV CARPAL TUNNE 1998 Carpal tunnel decomp bilateral PAST SURGICAL HISTORY OF surgery on umbilicus due to bleeding PAST SURGICAL HISTORY OF 1962 umbical mass resection SIGMOIDOSCOPY FLX DX W/COLLJ SPEC BR/WA IF PFRMD 08/29/2004 Sigmoidoscopy TONSILLECTOMY HX , Active Hospital Problems Diagnosis S/P total right hip arthroplasty Pressure injury of coccygeal region, stage 1 At high risk for impaired skin integrity SVT (supraventricular tachycardia) (HCC) Primary osteoarthritis of right hip MEDICATIONS Current Facility-Administered Medications Medication Dose Route Frequency polyethylene glycol 3350 17 g packet 17 g ORAL DAILY PRN ceFAZolin iv piggyback 2 g in D5W (iso-osmotic) 100 mL (ANCEF) 2 g INTRAVENOUS q 8 HR NaCl 0.9% iv flush bag 20 mL INTRAVENOUS PRN metoprolol succinate ER 50 mg tab(s) (TOPROL XL) 50 mg ORAL DAILY apixaban 2.5 mg tab(s) (ELIQUIS) 2.5 mg ORAL BID isosorbide mononitrate ER 15 mg tab(s) (IMDUR) 15 mg ORAL DAILY simvastatin 40 mg tab(s) (ZOCOR) 40 mg ORAL AT BEDTIME metFORMIN ER 500 mg tab(s) (GLUCOPHAGE XR) 500 mg ORAL DAILY WITH BREAKFAST pantoprazole DR 40 mg tab(s) (PROTONIX) 40 mg ORAL DAILY (6 AM) gabapentin 400 mg cap(s) (NEURONTIN) 400 mg ORAL BID tamsulosin 0.4 mg cap(s) (FLOMAX) 0.4 mg ORAL DAILY (7 PM) acetaminophen 1,000 mg tab(s) (TYLENOL) 1,000 mg ORAL q 8 H oxyCODONE IR 5-10 mg tab(s) (ROXICODONE) 5-10 mg ORAL q 3 H PRN HYDROmorphone 0.4 mg injection (DILAUDID) 0.4 mg INTRAVENOUS q 4 H PRN ondansetron orally disintegrating 4 mg tab(s) (ZOFRAN ODT) 4 mg ORAL q 6 H PRN Or ondansetron (PF) 4 mg injection (ZOFRAN) 4 mg INTRAVENOUS q 6 H PRN magnesium hydroxide 400 mg/5 mL 30 mL (MOM) 30 mL ORAL DAILY PRN bisacodyl EC 10 mg tab(s) (DULCOLAX) 10 mg ORAL DAILY aluminum-magnesium hydroxide-simethicone 200-200-20 mg/5 mL 30 mL 30 mL ORAL q 2 H PRN ferrous sulfate 325 mg tab(s) 325 mg ORA (more content not included)... Normal [facility] Magnesium SerPl-mCncon 10-11 Magnesium [Mass/Vol] 2.1 mg/dL Normal 1.7-2.3 [facility] Comment on above: Order Comment: Speci men Type: BLOOD SPECIMENOrdering Facility: [facility] Address: [address] [place] [address] Performed By: #### 1 9123-9, 2777-1, HSTNT ####[facility]CLIA [id number] [place] [address] [facility] NURSING PROGon 10-11-2024 NURSING PROG HNO ID: [id number] Author: ARPAN LUTZ RN Service: Nursing Author Type: Registered Nurse Type: Nursing Progress Note Filed: 10/11/2024 11:35 Note Text: When I walked into this patient's room this am he statedhe couldn't breath and felt like he was going to . I grabbed the vitals cart and Paula the nightsokft nurse walked in after looking at his tele monitor. We called the rapid. He was in SVT/A.fib with RVR. Metoprolol was pushed. Dr. Salomon was contacted and he added on amiodarone. I was told to call a rapid only if the patient was sustaining more than 5 minutes or was symptomatic in the future. Patient's rate has been WNL. Patient's wound vac was removed and a silverlon was placed. Eliquis to be held for 3 doses. Normal [facility] NURSING PROG HNO ID: [id number] Author: PAULA PADGETT RN Service: Nursing Author Type: Registered Nurse Type: Nursing Progress Note Filed: 10/11/2024 07:50 Note Text: Nursing Progress Note Vital Production Line Technician Assessment Note Patient Name: Angie Dutton Patient Location: [place] [id number] Patient Vitals for the past 4 hrs: BP Temp Temp src Pulse Resp SpO2 10/11/24 0443 124/59 37.4 ?C (99.3 ?F) Oral 103 18 94 % 10/11/24 0400 120/58 ? ? 100 ? ? Status Change Related to: Cardiac Issues (See Nursing Clinical Assessment For Details) The Following People Were Notified: Code/Rapid Response Team Caregiver/Provider: See Documentation Related to: Code/Rapid Response Additional Comments : This note was completed by: Paula Padgett RN Normal [facility] Phosphate SerPl-mCncon 10-11 Phosphate [Mass/Vol] 2.0 mg/dL Low 2.7-4.8 [facility] Comment on above: Order Comment: Speci men Type: BLOOD SPECIMENOrdering Facility: [facility] Address: [address] [place] [address] Performed By: #### 1 9123-9, 2777-1, HSTNT ####[facility] [id number] [address] OF [facility] CNCOon 10-10-2024 CNCO Letter Text Normal [facility] CONSULTon 10-10-2024 CONSULT HNO ID: [id number] Author: LANDY GONZALEZ APRN.ASSISTANT PORTFOLIO MANAGER Service: Wound/Ostomy Author Type: Nurse Practitioner Type: Consults Filed: 10/10/2024 13:01 Note Text: WOUND CARE SERVICE CONSULT NOTE SERVICE DATE: 10/10/2024 SERVICE TIME: 1200 Woud Consult (From admission, onward) Start Ordered 10/07/242129 Wound Care Consult ONCE Comments: Noted After Surgery, Patient In 5 Surgery For About 5 Hours In The Same Position. Electronically Signed By: Ryan Alonzo MD [ ] 10/07/242125 Consultation requested by Dr. Ryan Alonzo for an opinion regarding bilateral coccyx stage 1 noted after surgery, patient in surgery for about 5 hours in same position. My final recommendations will be communicated back to requesting provider by way of shared medical record. Subjective HISTORY OF PRESENT ILLNESS: Angie Dutton is a 84 year old male is being seen with the admitting diagnosis of total right hip arthoplasty. Presenting wound information: Pt seen and evaluated at bedside. Wound HPI provided by pt and medical record. Pt with h/o pafib, CAD, HTN, HLD, TIA presented to hospital and underwent R PARAS on 10/07/[address] Ryan Alonzo. Wound HPI provided by medical record. Pt unable to provide any information regarding wound. Pt states that he was unaware of having any type of wound on his backside. He denies having any pain other than post-op surgical pain from his R PARAS. REVIEW OF SYSTEMS: PAIN ASSESSMENT: See HPI GENERAL: weakness SKIN: See HPI 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 PAST SURGICAL HISTORY Procedure Laterality Date ARTHROSCOPY KNEE DIAGNOSTIC W/WO SYNOVIAL BX SPX 2000 both COLONOSCOPY FLX DX W/COLLJ SPEC WHEN PFRMD 2001 Colonoscopy COLONOSCOPY FLX DX W/COLLJ SPEC WHEN PFRMD 07/13/2014 Colonoscopy COLONOSCOPY GEN ANES 11/26/2020 CORONARY ARTERY BYP W/VEIN AND ARTERY GRAFT 3 VEIN 1981 CABG, three grafts EGD 11/26/2020 EGD 02/14/2021 EYE SURGERY HX FOOT SURGERY HX Left HEART SURGERY HX NEUROPLASTY AND/TRANSPOS MEDIAN NRV CARPAL TUNNE 1998 Carpal tunnel decomp bilateral PAST SURGICAL HISTORY OF surgery on umbilicus due to bleeding PAST SURGICAL HISTORY OF 1961 umbical mass resection SIGMOIDOSCOPY FLX DX W/COLLJ SPEC BR/WA IF PFRMD 08/29/2004 Sigmoidoscopy TONSILLECTOMY HX Social History Tobacco Use Smoking status: Former Current packs/day: 0.00 Types: Cigarettes Start date: 08/24/1955 Quit date: 08/24/1984 Years since quittin.1 Smokeless tobacco: Never Tobacco comments: QUIT at age 44, started at 15 Vaping Use Vaping status: Never Used Substance Use Topics Alcohol use: Yes Comment: occ Drug use: Never FAMILY HISTORY Problem Relation Age of Onset Heart Mother Hypertension Mother Heart Father Heart Sister Heart Brother Stroke Sister Colon Cancer No Family History MEDICATIONS: Current Facility-Administered Medications Medication Dose Route Frequency isosorbide mononitrate ER 15 mg tab(s) (IMDUR) 15 mg ORAL DAILY simvastatin 40 mg tab(s) (ZOCOR) 40 mg ORAL AT BEDTIME metFORMIN ER 500 mg tab(s) (GLUCOPHAGE XR) 500 mg ORAL DAILY WITH BREAKFAST pantoprazole DR 40 mg tab(s) (PROTONIX) 40 mg ORAL DAILY (6 AM) gabapentin 400 mg cap(s) (NEURONTIN) 400 mg ORAL BID tamsulosin 0.4 mg cap(s) (FLOMAX) 0.4 mg ORAL DAILY (7 PM) acetaminophen 1,000 mg tab(s) (TYLENOL) 1,000 mg ORAL q 8 H oxyCODONE IR 5-10 mg tab(s) (ROXICODONE) 5-10 mg ORAL q 3 H PRN HYDROmorphone 0.4 mg injection (DILAUDID) 0.4 mg INTRAVENOUS q 4 H PRN ondansetron orally disintegrating 4 mg tab(s) (ZOFRAN ODT) 4 mg ORAL q 6 H PRN Or ondansetron (PF) 4 mg injection (ZOFRAN) 4 mg INTRAVENOUS q 6 H PRN magnesium hydroxide 400 mg/5 mL 30 mL (MOM) 30 mL ORAL DAILY PRN bisacodyl EC 10 mg tab(s) (DULCOLAX) 10 mg ORAL DAILY aluminum-magnesium hydroxide-simethicone 200-200-20 mg/5 mL 30 mL 30 mL ORAL q 2 H PRN ferrous sulfate 325 mg tab(s) 325 mg ORAL DAILY WITH BREAKFAST ascorbic acid (vitamin C) 500 mg tab(s) (VITAMIN C) 500 mg ORAL BID w MEALS senna 17.2 mg tab(s) (SENOKOT) 17.2 mg ORAL AT BEDTIME dextrose 40 % 15 g 15 g ORAL PRN Or glucagon 1 mg injection 1 mg INTRAMUSCULAR PRN Or dextrose 10% iv bolus 12.5 g INTRAVENOUS PRN insulin lispro injection (rapid acting) (ADMElog) SUBCUTANEOUS w MEALS insulin lispro injection (ra (more content not included)... Normal [facility] CONSULT HNO ID: [id number] Author: JEANETTE SALOMON MD Service: Cardiovascular Medicine Author Type: Physician Type: Consults Filed: 10/11/2024 08:54 Note Text: CONSULT: [facility] CARDIOLOGY SERVICE SERVICE DATE: 10/10/2024 SERVICE TIME: 8:50 AM CONSULT REQUESTED BY PHYSICIAN: Ryan Alonzo* PCP: Valery Quinteros, ZOË.CATIA REASON FOR CONSULT: SVT / PAF HISTORY OF PRESENT ILLNESS: Mr. Dutton is a 84 year old male s/p right total hip arthroplasty on 10/07/2024 with PMH including but not limited to CAD s/p CABG x 3 (1985), PCI x 2 (2007), former smoker, hyperlipidemia, hypertension, CKD stage 3, paroxysmal AFIB, PVD and hiatal hernia. EF 65%. I have seen patient face to face. Patient admits he has some hip pain, but he is able to sleep well and states it's only during movement. He complains of being very anxious about his who is at home with chronic illness which he typically manages. He also has been unable to have a bowel movement, but has been passing gas. Patient had no chest pain, pressure, palpitations, nausea, vomiting, or diaphoresis. He has mild SOB but no difficulty breathing on RA. SPO2 98% He had a brief SVT episode on 10/09 (pulse 205) and received amiodarone bolus on 10/09/24 in the PM, he remain sinus. Nurse called as BP was 100/50 mm Hg and would like to know if he should receive his metoprolol and IMDUR. 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 PAST SURGICAL HISTORY Procedure Laterality Date ARTHROSCOPY KNEE DIAGNOSTIC W/WO SYNOVIAL BX SPX 2001 both COLONOSCOPY FLX DX W/COLLJ SPEC WHEN PFRMD 2001 Colonoscopy COLONOSCOPY FLX DX W/COLLJ SPEC WHEN PFRMD 07/13/2014 Colonoscopy COLONOSCOPY GEN ANES 11/26/2020 CORONARY ARTERY BYP W/VEIN AND ARTERY GRAFT 3 VEIN 1981 CABG, three grafts EGD 11/26/2020 EGD 02/14/2021 EYE SURGERY HX FOOT SURGERY HX Left HEART SURGERY HX NEUROPLASTY AND/TRANSPOS MEDIAN NRV CARPAL TUNNE 1998 Carpal tunnel decomp bilateral PAST SURGICAL HISTORY OF surgery on umbilicus due to bleeding PAST SURGICAL HISTORY OF 1961 umbical mass resection SIGMOIDOSCOPY FLX DX W/COLLJ SPEC BR/WA IF PFRMD 08/29/2004 Sigmoidoscopy TONSILLECTOMY HX FAMILY HISTORY Problem Relation Age of Onset Heart Mother Hypertension Mother Heart Father Heart Sister Heart Brother Stroke Sister Colon Cancer No Family History Social History Tobacco Use Smoking status: Former Current packs/day: 0.00 Types: Cigarettes Start date: 08/24/1955 Quit date: 08/24/1984 Years since quittin.1 Smokeless tobacco: Never Tobacco comments: QUIT at age 44, started at 15 Vaping Use Vaping status: Never Used Substance Use Topics Alcohol use: Yes Comment: occ Drug use: Never Prior to Admission Medications Prescriptions Last Dose Informant Patient Reported? Taking? acetaminophen 650 mg CR tablet Unknown Yes No Sig: Take 1,300 mg by mouth every 8 hours as needed. apixaban (ELIQUIS) 5 mg tab(s) 10/03/2024 No No Sig: Take 1 tablet by mouth two times a day. clopidogrel (PLAVIX) 75 mg tablet 09/30/2024 Yes No Sig: Take 75 mg by mouth once daily. cyclobenzaprine (FLEXERIL) 5 mg tablet 10/07/2024 at 4:00 AM No Yes Sig: Take 1 tablet by mouth two times a day as needed. docusate sodium (COLACE) 100 mg capsule No No Sig: Take 1 capsule by mouth every morning. ezetimibe (ZETIA) 10 mg tablet 10/07/2024 at 4:00 AM No Yes Sig: Take 1 tablet by mouth once daily. ferrous sulfate 325 mg (65 mg iron) tablet 10/06/2024 at 2:00 PM No Yes Sig: Take 1 tablet by mouth once daily. gabapentin (NEURONTIN) 400 mg capsule 10/07/2024 at 4:00 AM No Yes Sig: Take 1 capsule by mouth two times a day for 180 days. isosorbide mononitrate ER (IMDUR) 30 mg 24 hr tablet 10/07/2024 at 4:00 AM No Yes Sig: Take 0.5 tablets by mouth once daily. metFORMIN ER (GLUMETZA) 500 mg 24 hr tablet 10/06/2024 at 9:00 AM No Yes Sig: Take 1 tablet by mouth daily with breakfast. metoprolol succinate ER (TOPROL XL) 50 mg 24 hr tablet 10/06/2024 at 7:00 PM No Yes Sig: Take 1 tablet by mouth every afternoon. nitroglycerin sublingual (NITROQUICK) 0.4 mg SL tablet No No Sig: Dissolve 1 tablet under the tongue as directed. DISSOLVE ONE(1) TABLET UNDER THE TOUNGUE NEEDED FOR CHEST PAIN,EVERY [address] (PROTONIX) 20 mg tablet 10/06/2024 at 9:00 AM No Yes Sig: Take 2 tablets by mouth once da (more content not included)... Normal [facility] HIGH SENSITIVITY TROPONIN To n 10-10-2024 Troponin T.cardiac High sensitivity method [Mass/Vol] 110 ng/L High <[address] [place] [address] Comment on above: Order Comment: Speci men Type: BLOOD SPECIMEN Ordering Facility: [facility] Address: [address] [place] [address] Performed By: #### 5 8410-2 #### [facility] CLIA [id number] [address] STATES OF [facility] Troponin T.cardiac High sensitivity method [Mass/Vol] 132 ng/L High <[address] [place] [address] Comment on above: Order Comment: Speci men Type: BLOOD SPECIMEN Ordering Facility: [facility] Address: [address] [place] [address] Performed By: #### T SCR #### [facility] CLIA [id number] [address] [place] THERAPY NTon 10-10-2024 THERAPY NT HNO ID: [id number] Author: JENNIFFER VALDEZ PTA Service: Physical Therapy Author Type: Inspector Finishing Type: Therapy (PT/OT/Speech/Resp) Filed: 10/10/2024 16:23 Note Text: ----- Attestation signed by Italo James PT at 10/10/2024 5:38 PM I reviewed and agree with the documentation corresponding to this therapy visit. SIGNATURE: Italo James PT DATE: October 10, 2024 TIME: 5:38 PM ----- ----- Summary: PT Treat ----- Physical Therapy Treatment Summary SERVICE DATE: 10/10/2024 SERVICE TIME: 1504 to 1544 ROOM: [id number] PT 6 Clicks Score: 14 Total Joint Replacement Discharge Readiness: Not Applicable DISCHARGE RECOMMENDATIONS Subacute/SNF Recommended Discharge Disposition Comments: Pt currently functioning below baseline s/p R PARAS with increased pain, decreased ROM, decreased strength, impaired activity tolerance, impaired balance, and overall decreased functional mobility. Pt requires daily skilled services post acute stay to address deficits Recommended Discharge Disposition Due to: Functional deficits requiring ongoing therapy service prior to discharge home., Balance deficits, Functional status decline, Requires multiple therapy disciplines Recommended Discharge Equipment: To Be Determined ASSESSMENT Response to Therapy Interventions: Low Activity Tolerance, Limited Participation, Pain, Requires Additional Time to Complete Activities, Cognitive Deficits, Needs Frequent Redirection or Reinstruction pt tolerated session well. pt required increased time for all movement due to increased cues for redirection. pt attempted to slide off of bed sitting EOB cued to correct. pt able to again stand and ambualte short distances PRECAUTIONS Weight Bearing Restrictions, Fall Risk, Lines/Tubes/Drains, Impulsive with Activity, Anterior Hip Precautions Right Lower Extremity Weight Bearing Status: TTWB (Touch Down WB) CURRENT HOSPITAL COURSE s/p R PARAS with anterior approach Relevant Past Medical History: Afib, HLD, HTN, TIA, GERD, BPH, anemia, depression HOME LIVING Patient Lives With: Spouse Assistance Available: 24-Hour, Other: See Comment Comments: however spouse has dementia, dtr lives close by Entry To Home: Stairs, With Rail Number Of Stairs Into Home: 3 Number Of Stairs To Bed/Bath: 0 Tub/Shower Type: combo Laundry: self Equipment Owned: Cane, Elevated Toilet Seat, Grab Bars- Shower, Grab Bars- Toilet, Hand Held Shower, Walker- Wheeled PRIOR FUNCTIONAL LEVEL Within Functional Limits, Required Assistance Assistance Required With: Cleaning Pt states he uses milk carton at night to urinate for safety. Reports one fall in last 6 mos. Amb with quad cane with light. Sleeps in flat bed. Drives, shops, most cooking, and laundry Spouse cleans. 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 SUBJECTIVE Pt agreeable to PT okay per RN to see THERAPY DIAGNOSIS Reduced mobility-other, Difficulty walking-musculoskeletal TREATMENT INTERVENTIONS Therapeutic Activity (21914), Gait Training (24978) Timed Code Treatment (minutes): 40 Skilled Treatment Time (minutes): 40 Therapeutic Activity (93732) Treatment Minutes: 30 $ Therapeutic Activity (43927) Billed Units: 1 unit Gait Training (98189) Treatment Minutes: 10 $ Gait Training (52734) Billed Units: 1 unit TRAINING AND EDUCATION PROVIDED Anatomy and Impact on Deficits, Assistive Device Use, Bed Mobility, Benefits of In-Hospital Mobility, Falls Prevention, Expected Functional Level, Role of Physical Therapy, Sitting Balance, Transfers, Standing Balance, Treatment Protocol THERAPEUTIC SKILLS USED Activity Dosing, Cues for Sequencing/Proper Technique for Activity, Cuing Tactile, Cuing Verbal, Cuing Visual, Bed in Chair Position, Facilitation of Joint Range of Motion, Management of Critical Lines, Tubes and/or Drains, Physical Assist, Postural Alignment Correction, Muscle Activation Facilitation FUNCTIONAL STATUS Bed Mobility Supine To Sit: Moderate Assistance, Additional Information pt able to bring BLE towards EOB. increased assistance to sit trunk upright. pt with 3 attempts to sit trunk upright Sit to Supine: Moderate Assistance, Additional Information assist with BLE and trunk back into bed Scooting: Minimal Assistance, Additional Information pt sitting EOB attempted to scoot forward and almost off of bed. max cues to stop scooting forward and to stay on bed. Transfers Sit To Stand: Minimal Assistance, Additional Information x4 stands. increased time to complete. cues for hand placement, surgical leg placement, pt able to better follow (more content not included)... Normal [facility] CBC panel Auto (Bld)on 10-09 Erythrocyte distribution width (RBC) [Ratio] 15.3 % High 11.5-15.0 [facility] Comment on above: Order Comment: Speci men Type: BLOOD SPECIMEN Ordering Facility: [facility] Address: [address] [place] [address] Performed By: #### 5 8410-2 #### [facility] CLIA [id number] [address] [place] [address] [place] Hematocrit (Bld) [Volume fraction] 29.1 % Low 39.0-51.0 [facility] Comment on above: Order Comment: Speci men Type: BLOOD SPECIMEN Ordering Facility: [facility] Address: [address] [place] [address] Performed By: #### 5 8410-2 #### [facility] CLIA [id number] [address] [place] [address] [place] Hemoglobin (Bld) [Mass/Vol] 9.4 g/dL Low 13.0-17.0 [facility] Comment on above: Order Comment: Speci men Type: BLOOD SPECIMEN Ordering Facility: [facility] Address: [address] [place] [address] Performed By: #### 5 8410-2 #### [facility] CLIA [id number] [address] MCH (RBC) [Entitic mass] 28.8 pg Normal 26.0-34.0 [facility] Comment on above: Order Comment: Speci men Type: BLOOD SPECIMEN Ordering Facility: [facility] Address: [address] [place] [address] Performed By: #### 5 8410-2 #### [facility] CLIA [id number] [address] MCHC (RBC) [Mass/Vol] 32.3 g/dL Normal 30.5-36.0 [facility] Comment on above: Order Comment: Speci men Type: BLOOD SPECIMEN Ordering Facility: [facility] Address: [address] [place] [address] Performed By: #### 5 8410-2 #### [facility] CLIA [id number] [address] MCV (RBC) [Entitic vol] 89.3 fL Normal 80.0-100.0 [facility] Comment on above: Order Comment: Speci men Type: BLOOD SPECIMEN Ordering Facility: [facility] Address: [address] [place] [address] Performed By: #### 5 8410-2 #### [facility] CLIA [id number] [address] Nucleated RBC (Bld) [#/Vol] 10*3/uL Normal <0.01 [facility] Comment on above: Order Comment: Speci men Type: BLOOD SPECIMEN Ordering Facility: [facility] Address: [address] [place] [address] Performed By: #### 5 8410-2 #### [facility] CLIA [id number] [address] Platelet mean volume (Bld) [Entitic vol] 12.4 fL Normal 9.0-12.7 [facility] Comment on above: Order Comment: Speci men Type: BLOOD SPECIMEN Ordering Facility[facility] Address: [address] [place] [address] Performed By: #### 5 8410-2 #### [facility] CLIA [id number] [address] [place] Platelets (Bld) [#/Vol] 75 10*3/uL Low 150-400 [facility] Comment on above: Order Comment: Speci men Type: BLOOD SPECIMEN Ordering Facility: [facility] Address: [address] [place] [address] Performed By: #### 5 8410-2 #### [facility] CLIA [id number] [address] [place] RBC (Bld) [#/Vol] 3.26 10*6/uL Low 4.20-6.00 [facility] Comment on above: Order Comment: Speci men Type: BLOOD SPECIMEN Ordering Facility[facility] Address: [address] [place] [address] Performed By: #### 5 8410-2 #### [facility] CLIA [id number] [address] WBC (Bld) [#/Vol] 6.51 10*3/uL Normal 3.70-11.00 [facility] Comment on above: Order Comment: Speci men Type: BLOOD SPECIMEN Ordering [facility] Address: [address] [place] [address] Performed By: #### 5 8410-2 #### [facility] CLIA [id number] [address] OF [place] Comprehensive metabolic 2000 panelon 10-09-2024 Albumin [Mass/Vol] 3.0 g/dL Low 3.9-4.9 [facility] Comment on above: Order Comment: Speci men Type: BLOOD SPECIMEN Ordering Facility[facility] Address: [address] [place] [address] Performed By: #### T SCR #### [facility] CLIA [id number] [address] ALP [Catalytic activity/Vol] 45 U/L Normal 38-113 [facility] Comment on above: Order Comment: Speci men Type: BLOOD SPECIMEN Ordering Facility[facility] Address: [address] [place] [address] Performed By: #### T SCR #### [facility] CLIA [id number] [address] [place] [address] [facility] [place] ALT [Catalytic activity/Vol] U/L Low 10-54 [facility] Comment on above: Order Comment: Speci men Type: BLOOD SPECIMEN Ordering Facility[facility] Address: [address] [place] [address] Performed By: #### T SCR #### [facility] CLIA [id number] [address] [place], [place] [id number] [place] [address] OF [facility] Anion gap [Moles/Vol] 11 mmol/L Normal 8-15 [facility] Comment on above: Order Comment: Speci men Type: BLOOD SPECIMEN Ordering Facility: [facility] Address: [address] [place] [address] Performed By: #### T SCR #### [facility] CLIA [id number] [address] [place], [place] [id number] [place] [address] [place] AST [Catalytic activity/Vol] 44 U/L High 14-40 [facility] Comment on above: Order Comment: Speci men Type: BLOOD SPECIMEN Ordering Facility[facility] Address: [address] [place] [address] Performed By: #### T SCR #### [facility] CLIA [id number] [address] [place], [place] [id number] [place] [address] [place] Bilirubin [Mass/Vol] 0.7 mg/dL Normal 0.2-1.3 [facility] Comment on above: Order Comment: Speci men Type: BLOOD SPECIMEN Ordering Facility[facility] Address: [address] [place] [address] Performed By: #### T SCR #### [facility] CLIA [id number] [address] Calcium [Mass/Vol] 8.6 mg/dL Normal 8.5-10.2 [facility] Comment on above: Order Comment: Speci men Type: BLOOD SPECIMEN Ordering Facility: [facility] Address: [address] [place] [address] Performed By: #### T SCR #### [facility] CLIA [id number] [address] [place] Chloride [Moles/Vol] 104 mmol/L Normal 98-107 [facility] Comment on above: Order Comment: Briana lobo Type: BLOOD SPECIMEN Ordering Facility: [facility] Address: [address] [place] [address] Performed By: #### T SCR #### [facility] CLIA [id number] [address] [place] [address] [place] CO2 [Moles/Vol] 21 mmol/L Low 22-30 [facility] Comment on above: Order Comment: Briana lobo Type: BLOOD SPECIMEN Ordering Facility[facility] Address: [address] [place] [address] Performed By: #### T SCR #### [facility] CLIA [id number] [address] OF [facility] Creatinine [Mass/Vol] 1.20 mg/dL Normal 0.73-1.22 [facility] Comment on above: Order Comment: Briana [facility] Type: BLOOD SPECIMEN Ordering Facility[facility] Address: [address] [place] [address] Performed By: #### T SCR #### [facility] CLIA [id number] [address] Creatinine and Glomerular filtration rate.predicted panel (S/P/Bld) 59 mL/min/1.73m??? Low >=60 [facility] Comment on above: Order Comment: Briana lobo Type: BLOOD SPECIMEN Ordering Facility[facility] Address: [address] [place] [address] Result Comment: Lynette mated Glomerular Filtration Rate (eGFR) is calculated using the 2020 CKD-EPI creatinine equation. This equation utilizes serum creatinine, sex, and age as parameters. The creatinine assay has traceable calibration to isotope dilution-mass spectrometry. Refer to KDIGO guidelines for clinical interpretation. In patients with unstable renal function, e.g. those with acute kidney injury, the eGFR may not accurately reflect actual GFR. Performed By: #### T SCR #### [facility] CLIA [id number] [address] [place] [address] [place] Glucose [Mass/Vol] 123 mg/dL High 74-99 [facility] Comment on above: Order Comment: Briana lobo Type: BLOOD SPECIMEN Order[facility] Address: [address] [place] [address] Result Comment: The [place] [employer] (ADA) provides guidance for cutoff values for fasting glucose and random glucose. The ADA defines fasting as no caloric intake for at least 8 hours. Fasting plasma glucose results between 100 to 125 mg/dL indicate increased risk for diabetes (prediabetes). Fasting plasma glucose results greater than or equal to 126 mg/dL meet the criteria for diagnosis of diabetes. In the absence of unequivocal hyperglycemia, results should be confirmed by repeat testing. In a patient with classic symptoms of hyperglycemia or hyperglycemic crisis, random plasma glucose results greater than or equal to 200 mg/dL meet the criteria for diagnosis of diabetes. Reference: Standards of Medical Care in Diabetes 2016, [place] [employer]. Diabetes Care. 2016.39(Suppl 1). Performed By: #### T SCR #### [facility] IA [id number] [address] [place] [address] [place] Potassium [Moles/Vol] 4.4 mmol/L Normal 3.7-5.1 [facility] Comment on above: Order Comment: Briana lobo Type: BLOOD SPECIMEN Order[facility] Address: [address] [place] [address] Performed By: #### T SCR #### [facility] IA [id number] [address] [place] [address] [place] Protein [Mass/Vol] 5.4 g/dL Low 6.3-8.0 [facility] Comment on above: Order Comment: Briana lobo Type: BLOOD SPECIMEN Order[facility] Address: [address] [place] [address] Performed By: #### T SCR #### [facility] CLIA [id number] [address] [place] [address] [place] Sodium [Moles/Vol] 136 mmol/L Normal 136-144 [facility] Comment on above: Order Comment: Speci men Type: BLOOD SPECIMEN Ordering Facility[facility] Address: [address] [place] [id number] Performed By: #### T SCR #### [facility] CLIA [id number] [address] STATES [facility] Urea nitrogen [Mass/Vol] 20 mg/dL Normal 9-24 [facility] Comment on above: Order Comment: Speci men Type: BLOOD SPECIMEN Ordering Facility[facility] Address: [address] [place], [place] [id number] Performed By: #### T SCR #### [facility] CLIA [id number] [address] [place] ECG COMPLETEon 10-09-2024 ECG COMPLETE Ventricular Rate : 1 07 BPM Atrial Rate : 107 BPM P-R Interval : 174 ms QRS Duration : 122 ms Q-T Interval : 338 ms QTC Calculation(Bazett) : 451 ms Calculated P [place] : 92 degrees Calculated R [place] : 265 degrees Calculated T [place] : 6 degrees SINUS TACHYCARDIA RIGHT BUNDLE BRANCH BLOCK LEFT AXIS DEVIATION WHEN COMPARED WITH ECG OF 09-Oct-2024 15:36, PREVIOUS ECG HAS UNDETERMINED RHYTHM, NEEDS REVIEW Confirmed by MD SALOMON QARAB ([id number]) on 10/10/2024 2:45:05 PM NAME : ANGIE DUTTON PID : [id number] : 1940 Gender : Male Race : ORD : [id number] Procedure Date : Oct 09 2024 17:44:47 Edit Date : Oct 10 2024 14:45:07 Diagnosis: SINUS TACHYCARDIA RIGHT BUNDLE BRANCH BLOCK LEFT AXIS DEVIATION WHEN COMPARED WITH ECG OF 09-Oct-2024 15:36, PREVIOUS ECG HAS UNDETERMINED RHYTHM, NEEDS REVIEW Confirmed by MD SALOMON QARAB ([id number]) on 10/10/2024 2:45:05 PM Test Reason : Arrhythmia Location : 3 : 2N 0257 Overread By : MD SALOMON QARAB Edited By : MD SALOMON QARAB Referred By : , Acquired by : [id number], Normal [facility] EKGon 10-09-2024 Electrocardiogram Ventricular Rate : 1 15 BPM Atrial Rate : 115 BPM QRS Duration : 122 ms Q-T Interval : 314 ms QTC Calculation(Bazett) : 434 ms Calculated R [place] : 252 degrees Calculated T [place] : 10 degrees ATRIAL FIBRILLATION RIGHT BUNDLE BRANCH BLOCK ABNORMAL ECG WHEN COMPARED WITH ECG OF 09-Oct-2024 15:28, CURRENT UNDETERMINED RHYTHM PRECLUDES RHYTHM COMPARISON, NEEDS REVIEW ST NO LONGER DEPRESSED IN ANTEROLATERAL LEADS Confirmed by MD SALOMON QARAB ([id number]) on 10/10/2024 2:47:09 PM NAME : ANGIE DUTTON PID : [id number] : 1940 Gender : Male Race : ORD : Procedure Date : Oct 09 2024 15:36:57 Edit Date : Oct 10 2024 14:47:14 Diagnosis: ATRIAL FIBRILLATION RIGHT BUNDLE BRANCH BLOCK ABNORMAL ECG WHEN COMPARED WITH ECG OF 09-Oct-2024 15:28, CURRENT UNDETERMINED RHYTHM PRECLUDES RHYTHM COMPARISON, NEEDS REVIEW ST NO LONGER DEPRESSED IN ANTEROLATERAL LEADS Confirmed by MD SALOMON QARAB ([id number]) on 10/10/2024 2:47:09 PM Test Reason : Location : 22 : 2E 7 Overread By : MD SALOMON QARAB Edited By : MD SALOMON QARAB Referred By : ., Acquired by : ., [facility] Electrocardiogram Ventricular Rate : 2 04 BPM QRS Duration : 116 ms Q-T Interval : 240 ms QTC Calculation(Bazett) : 442 ms Calculated R [place] : 225 degrees Calculated T [place] : 21 degrees SUPRAVENTRICULAR TACHYCARDIA RIGHT BUNDLE BRANCH BLOCK ABNORMAL ECG WHEN COMPARED WITH ECG OF 22-Feb-1995 09:08, VENT. RATE HAS INCREASED by 136 bpm RIGHT BUNDLE BRANCH BLOCK IS NOW PRESENT Confirmed by MD SALOMON QARAB ([id number]) on 10/10/2024 2:47:17 PM NAME : ANGIE DUTTON PID : [id number] : 1940 Gender : Male Race : ORD : Procedure Date : Oct 09 2024 15:28:06 Edit Date : Oct 10 2024 14:47:21 Diagnosis: SUPRAVENTRICULAR TACHYCARDIA RIGHT BUNDLE BRANCH BLOCK ABNORMAL ECG WHEN COMPARED WITH ECG OF 22-Feb-1995 09:08, VENT. RATE HAS INCREASED by 136 bpm RIGHT BUNDLE BRANCH BLOCK IS NOW PRESENT Confirmed by MD SALOMON QARAB ([id number]) on 10/10/2024 2:47:17 PM Test Reason : Location : 22 : 2E 0257 Overread By : MD SALOMON QARAB Edited By : MD SALOMON QARAB Referred By : ., Acquired by : ., Normal [facility] HIGH SENSITIVITY TROPONIN To n 10-09-2024 Troponin T.cardiac High sensitivity method [Mass/Vol] 134 ng/L High <12 [facility] Comment on above: Order Comment: Briana yamil Type: BLOOD SPECIMEN [facility] Address: [address] [place] [address] Performed By: #### T SCR #### [facility] CLIA [id number] [address] Troponin T.cardiac High sensitivity method [Mass/Vol] 59 ng/L High <12 [facility] Comment on above: Order Comment: Briana yamil Type: BLOOD SPECIMEN Order[facility] Address: [address] [place] [address] Performed By: #### T SCR #### [facility] CLIA [id number] [address] MEDICAL EMERon 10-09-2024 MEDICAL MATT HNO ID: [id number] Author: CARRIE STILL APRN.CNP Service: Critical Care Author Type: Nurse Practitioner Type: Chg in Clinical Condition Filed: 10/09/2024 16:54 Note Text: EMERGENCY RESPONSE TEAM Rapid Response Date of MET Page: October 09, 2024 Time of MET Page: [phone] Requesting Provider: NITA KESSLER DIAGNOSIS, ASSESSMENT and RECOMMENDATIONS LEPIDOPTERIST initiated for patient with sudden onset of tachyarrhythmia. On arrival to bedside patient heart rate is in the 200s on the ZOLL defibrillator and also on an EKG obtained (SVT). Patient blood pressure 70 systolic. Patient endorsing dizziness and lightheadedness. Denying chest pain at this time or shortness of breath. He is not diaphoretic. Preparations being made for urgent cardioversion. Respiratory therapy and pharmacy at bedside. 1 L IV fluid bolus infusing via pressure bag. Blood pressure improved to 118 systolic. Reliable IV access obtained by LEPIDOPTERIST team. Patient already on anticoagulation. Amiodarone bolus given. Patient with improvement of heart rate to the 112. Labs obtained.Cardiology consult placed and primary contacted cardiology to update oncurrent events. Patient reported relief of symptoms and stated that he is feeling much better . Patient transferred to stepdown under care of primary team. Status: Stable PLAN, DISPOSITION and OUTCOME Transfer to a higher level of care under the care of: Primary team History of Present Illness: This is a 84 year old male who was admitted to the hospital for osteoarthritis. He is status post a right PARAS. Past medical history significant for paroxysmal atrial fibrillation, coronary artery disease, essential hypertension, hyperlipidemia, TIA. PRIMARY REASON FOR CALL Cardiac: Heart rate <40 or >140 with new symptoms Any Heart Rate >150 PAST MEDICAL / SURGICAL HISTORY 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 , PAST SURGICAL HISTORY Procedure Laterality Date ARTHROSCOPY KNEE DIAGNOSTIC W/WO SYNOVIAL BX SPX 2000 both COLONOSCOPY FLX DX W/COLLJ SPEC WHEN PFRMD 2001 Colonoscopy COLONOSCOPY FLX DX W/COLLJ SPEC WHEN PFRMD 07/13/2014 Colonoscopy COLONOSCOPY GEN ANES 11/26/2020 CORONARY ARTERY BYP W/VEIN AND ARTERY GRAFT 3 VEIN 1981 CABG, three grafts EGD 11/26/2020 EGD 02/14/2021 EYE SURGERY HX FOOT SURGERY HX Left HEART SURGERY HX NEUROPLASTY AND/TRANSPOS MEDIAN NRV CARPAL TUNNE 1998 Carpal tunnel decomp bilateral PAST SURGICAL HISTORY OF surgery on umbilicus due to bleeding PAST SURGICAL HISTORY OF 2 umbical mass resection SIGMOIDOSCOPY FLX DX W/COLLJ SPEC BR/WA IF PFRMD 08/29/2004 Sigmoidoscopy TONSILLECTOMY HX MEDICATIONS Current Facility-Administered Medications Medication Dose Route Frequency cephALEXin 500 mg cap(s) (KEFLEX) 500 mg ORAL q 8 H amiodarone 150 mg bolus from bag (CORDARONE) 150 mg INTRAVENOUS ONCE Or amiodarone 150 mg in D5W 100 mL bolus standalone bag (NEXTERONE) 150 mg INTRAVENOUS ONCE NaCl 0.9% iv flush bag 20 mL INTRAVENOUS PRN NaCl 0.9% 500 mL iv bolus 500 mL INTRAVENOUS ONCE metoprolol succinate ER 50 mg tab(s) (TOPROL XL) 50 mg ORAL DAILY apixaban 2.5 mg tab(s) (ELIQUIS) 2.5 mg ORAL BID isosorbide mononitrate ER 15 mg tab(s) (IMDUR) 15 mg ORAL DAILY simvastatin 40 mg tab(s) (ZOCOR) 40 mg ORAL AT BEDTIME metFORMIN ER 500 mg tab(s) (GLUCOPHAGE XR) 500 mg ORAL DAILY WITH BREAKFAST pantoprazole DR 40 mg tab(s) (PROTONIX) 40 mg ORAL DAILY (6 AM) gabapentin 400 mg cap(s) (NEURONTIN) 400 mg ORAL BID tamsulosin 0.4 mg cap(s) (FLOMAX) 0.4 mg ORAL DAILY (7 PM) acetaminophen 1,000 mg tab(s) (TYLENOL) 1,000 mg ORAL q 8 H oxyCODONE IR 5-10 mg tab(s) (ROXICODONE) 5-10 mg ORAL q 3 H PRN HYDROmorphone 0.4 mg injection (DILAUDID) 0.4 mg INTRAVENOUS q 4 H PRN ondansetron orally disintegrating 4 mg tab(s) (ZOFRAN ODT) 4 mg ORAL q 6 H PRN Or ondansetron (PF) 4 mg injection (ZOFRAN) 4 mg INTRAVENOUS q 6 H PRN magnesium hydroxide 400 mg/5 mL 30 mL (MOM) 30 mL ORAL DAILY PRN bisacodyl EC 10 mg tab(s) (DULCOLAX) 10 mg ORAL DAILY aluminum-magnesium hydroxide-simethicone 200-200-20 mg/5 mL 30 mL 30 mL ORAL q 2 H PRN ferrous sulfate 325 mg tab(s) 325 mg ORAL DAILY WITH BREAKFAST ascorbic acid (vitamin C) 500 mg tab(s) (VITAMIN C) 500 mg ORAL BID w MEALS senna 17.2 mg tab(s) (SENOKOT) 17.2 mg ORAL AT BEDTIME dextrose 40 % 15 g 15 g ORAL PRN Or glucagon (more content not included)... Normal [facility] Magnesium SerPl-mCncon 10-09 Magnesium [Mass/Vol] 1.9 mg/dL Normal 1.7-2.3 [facility] Comment on above: Order Comment: Speci men Type: BLOOD SPECIMEN [facility]ing Facility: [facility] Address: [address] [place] [id number] Performed By: #### T SCR #### [facility] IA [id number] [address] [place] [address] [facility] Phosphate SerPl-mCncon 10-09 Phosphate [Mass/Vol] 2.0 mg/dL Low 2.7-4.8 [facility] Comment on above: Order Comment: Speci men Type: BLOOD SPECIMEN Ordering Facility: [facility] Address: [facility] [place] [address] Performed By: #### T SCR #### [facility] IA [id number] [address] [place] [address] [facility] THERAPY NTon 10-09-2024 THERAPY NT HNO ID: [id number] Author: ITALO JAMES, PT Service: Physical Therapy Author Type: Physical Therapist Type: Therapy (PT/OT/Speech/Resp) Filed: 10/09/2024 13:35 Note Text: Physical Therapy Treatment Summary SERVICE DATE: 10/09/2024 SERVICE TIME: 1250 to 1320 ROOM: [place] [address] PT 6 Clicks Score: 7 Total Joint Replacement Discharge Readiness: Not Applicable DISCHARGE RECOMMENDATIONS Subacute/SNF Recommended Discharge Disposition Comments: Pt currently functioning below baseline s/p R PARAS with increased pain, decreased ROM, decreased strength, impaired activity tolerance, impaired balance, and overall decreased functional mobility. Pt requires daily skilled services post acute stay to address deficits Recommended Discharge Disposition Due to: Functional deficits requiring ongoing therapy service prior to discharge home., Balance deficits, Functional status decline, Requires multiple therapy disciplines Recommended Discharge Equipment: To Be Determined ASSESSMENT Patient demonstrating decreased activity tolerance this date, increased difficulty following cues. Patient attempting to slide self fwd at EOB to reach floor surface, unable to maintain trunk support, TotalA for sitting EOB. Patient unable to recall hip precautions or WB instructions. Patient unsafe to attempt standing this date. Unsafe for discharge PRECAUTIONS Weight Bearing Restrictions, Fall Risk, Lines/Tubes/Drains, Impulsive with Activity, Anterior Hip Precautions Right Lower Extremity Weight Bearing Status: TTWB (Touch Down WB) CURRENT HOSPITAL COURSE s/p R PARAS with anterior approach Relevant Past Medical History: Afib, HLD, HTN, TIA, GERD, BPH, anemia, depression HOME LIVING Patient Lives With: Spouse Assistance Available: 24-Hour, Other: See Comment Comments: however spouse has dementia, dtr lives close by Entry To Home: Stairs, With Rail Number Of Stairs Into Home: 3 Number Of Stairs To Bed/Bath: 0 Tub/Shower Type: combo Laundry: self Equipment Owned: Cane, Elevated Toilet Seat, Grab Bars- Shower, Grab Bars- Toilet, Hand Held Shower, Walker- Wheeled PRIOR FUNCTIONAL LEVEL Within Functional Limits, Required Assistance Assistance Required With: Cleaning Pt states he uses milk carton at night to urinate for safety. Reports one fall in last 6 mos. Amb with quad cane with light. Sleeps in flat bed. Drives, shops, most cooking, and laundry Spouse cleans. 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 SUBJECTIVE Patient initially appears cognitively intact with orientation questions, however once attempting mobility, patient appears discombobulated, unable to follow safety cues, attempting to slide self off bed onto floor. Session terminated for safety, unable to progress to standing this date. Reports feeling like he needs to have a BM THERAPY DIAGNOSIS Difficulty walking-musculoskeletal TREATMENT INTERVENTIONS Therapeutic Activity (28114) Timed Code Treatment (minutes): 30 Skilled Treatment Time (minutes): 30 TRAINING AND EDUCATION PROVIDED Anatomy and Impact on Deficits, Assistive Device Use, Bed Mobility, Benefits of In-Hospital Mobility, Falls Prevention, Expected Functional Level, Role of Physical Therapy, Sitting Balance, Transfers, Standing Balance, Treatment Protocol THERAPEUTIC SKILLS USED Activity Dosing, Cues for Sequencing/Proper Technique for Activity, Cuing Tactile, Cuing Verbal, Cuing Visual, Bed in Chair Position, Facilitation of Joint Range of Motion, Management of Critical Lines, Tubes and/or Drains, Physical Assist, Postural Alignment Correction, Muscle Activation Facilitation FUNCTIONAL STATUS Bed Mobility Supine To Sit: Maximal Assistance, Total Assistance Patient initially MaxA to reach EOB sitting however quickly becomes Total Assist as is unable to remain upright, despite MaxA to trunk. Patient extending BLE, attempting to slide self fwd off EOB. Cues for safety and cues for upright sitting with consistent redirection. Patient unable to follow cues appropriately, lacks safety awareness. Sit to Supine: Total Assistance, Additional Information to trunk and BLE, patient unable to follow cues, reports SOB and states, Ma'am, I'm going to here. Redirection attempted, patient unable to follow cues or commands for diaphragmatic breathing and safety. Session terminated, TotalA for returning patient to appropriate supine position. Scooting: Minimal Assistance, Additional Information Supine, bed in trendelenberg, Hand over hand for UE support on bedrails and 1-word cues for scooting to HOB. Raad for progression. RN called to bedside as patient continually states, I'm going to here. I think I'm having a heart attack, I need a nitroglycerin pill. Once RN enters, patient immediately calms and states he feels better. Denies symptoms. Transfers Sit To Stand: Additional Information Not safe to attemp (more content not included)... Normal [facility] Basic metabolic 2000 panelon 10-08-2024 Anion gap [Moles/Vol] 9 mmol/L Normal -15 [facility] Comment on above: Order Comment: Speci men Type: BLOOD SPECIMEN [facility]ing Facility: [facility] Address: [address] [place] [address] Performed By: #### T SCR #### [facility] CLIA [id number] [address] [place] [address] [place] [facility] Calcium [Mass/Vol] 8.8 mg/dL Normal 8.5-10.2 [facility] Comment on above: Order Comment: Speci men Type: BLOOD SPECIMEN Ordering Facility: [facility] Address: [address] [place] [address] Performed By: #### T SCR #### [facility] CLIA [id number] [address] [place] Chloride [Moles/Vol] 106 mmol/L Normal 98-107 [facility] Comment on above: Order Comment: Speci men Type: BLOOD SPECIMEN Ordering Facility: [facility] Address: [address] [place] [address] Performed By: #### T SCR #### [facility] CLIA [id number] [address] [place] [address] [place] CO2 [Moles/Vol] 26 mmol/L Normal 22-30 [facility] Comment on above: Order Comment: Speci men Type: BLOOD SPECIMEN Ordering Facility: [facility] Address: [address] [place] [address] Performed By: #### T SCR #### [facility] CLIA [id number] [address] [place] Creatinine [Mass/Vol] 1.20 mg/dL Normal 0.73-1.22 [facility] Comment on above: Order Comment: Briana lobo Type: BLOOD SPECIMEN Order[facility]: [facility] Address: [address] [place] [address] Performed By: #### T SCR #### [facility] CLIA [id number] [address] Creatinine and Glomerular filtration rate.predicted panel (S/P/Bld) 59 mL/min/1.73m??? Low >=60 [facility] Comment on above: Order Comment: Briana lobo Type: BLOOD SPECIMEN [facility] Address: [address] [place] [address] Result Comment: Lynette mated Glomerular Filtration Rate (eGFR) is calculated using the 2020 CKD-EPI creatinine equation. This equation utilizes serum creatinine, sex, and age as parameters. The creatinine assay has traceable calibration to isotope dilution-mass spectrometry. Refer to KDIGO guidelines for clinical interpretation. In patients with unstable renal function, e.g. those with acute kidney injury, the eGFR may not accurately reflect actual GFR. Performed By: #### T SCR #### [facility] IA [id number] [address] [place] Glucose [Mass/Vol] 139 mg/dL High 74-99 [facility] Comment on above: Order Comment: Briana lobo Type: BLOOD SPECIMEN [facility] Address: [address] [place] [address] Result Comment: The [place] [employer] (ADA) provides guidance for cutoff values for fasting glucose and random glucose. The ADA defines fasting as no caloric intake for at least 8 hours. Fasting plasma glucose results between 100 to 125 mg/dL indicate increased risk for diabetes (prediabetes). Fasting plasma glucose results greater than or equal to 126 mg/dL meet the criteria for diagnosis of diabetes. In the absence of unequivocal hyperglycemia, results should be confirmed by repeat testing. In a patient with classic symptoms of hyperglycemia or hyperglycemic crisis, random plasma glucose results greater than or equal to 200 mg/dL meet the criteria for diagnosis of diabetes. Reference: Standards of Medical Care in Diabetes 2016, [place] [employer]. Diabetes Care. 2016.39(Suppl 1). Performed By: #### T SCR #### [facility] CLIA [id number] [address] Potassium [Moles/Vol] 5.0 mmol/L Normal 3.7-5.1 [facility] Comment on above: Order Comment: Briana lobo Type: BLOOD SPECIMEN [facility] Address: [address] [place] [address] Performed By: #### T SCR #### [facility] CLIA [id number] [address] Sodium [Moles/Vol] 141 mmol/L Normal 136-144 [facility] Comment on above: Order Comment: Briana lobo Type: BLOOD SPECIMEN [facility] Address: [address] [place] [address] Performed By: #### T SCR #### [facility] CLIA [id number] [address] Urea nitrogen [Mass/Vol] 17 mg/dL Normal 9-24 [facility] Comment on above: Order Comment: Briana lobo Type: BLOOD SPECIMEN Ordering [facility] Address: [address] [place] [address] Performed By: #### T SCR #### [facility] CLIA [id number] [address] [facility] HNO ID: [id number] Author: THERON BAINS, NITA Service: ? Author Type: Registered Nurse Type: Care Mgt Initial Assessment Filed: 10/08/2024 12:05 Note Text: CARE MANAGEMENT: ASSESSMENT AND DISCHARGE PLAN SERVICE DATE: October 08, 2024 SERVICE TIME: 12:04 PM PCP: Valery Quinteros APRN.CNP Primary Contact: Extended Emergency Contact Information Primary Emergency Contact: Kyler Hansen Mobile Relation: Son Secondary Emergency Contact: Elzbieta Dutton Address: [address] [place] [address] [place] Mobile Relation: Spouse Admission Status: Extended Recovery Insurance Provider: [employer] MEDICARE PPO Discharge Planning requested by: Per Department Practice Potential Transition Plans Home, Home Care, Alf Facility/Intermediate Care Facility, To Be Determined Advance Directives Current Advance Directive: None 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 Attempted to Assist with AD Completion: Yes Action: Patient Unwilling Current Living Arrangements and Support Lives with: Spouse/significant other Type of Residence: Private Residence (Apartment or Condo) Does the patient have to climb stairs at home?: Yes, stairs outside the home Support: Spouse/significant other, Children How do you manage to accomplish the following: Independent: Ambulation, Bathe/Shower, Dress, Meals/Meal Prep, Going to the bathroom, Medication Management, Transportation to appointments/community Current Services/Equipment Current Post-Acute Service(s): DME Current DME Type: Grab bars, Cane, Transfer tub bench, Elevated toilet seat, Walker Discharge Planning Patient Goal(s): Better mobility, Increase strength [place] of Choice Explained: [place] of Choice Given: Yes Level of Care Discussed: Home Care (Declined list, wants [facility] if [facility] recommended.) Are you interested in bedside delivery of your medications? No, [facility] in [place] Discharge Planning Participant(s): Children Patient/Family Comments: Caregiver Assessment: Caregiver is ready, willing and able to meet the patient's needs as recommended by the inter-professional team: Other: See Comment (DC needs TBD.) Transport at Discharge: Transportation Arrangements: To Be Determined Needs Prior to Discharge: Needs Prior to Discharge: Other: See Comment, OT/PT Evaluation, To Be Determined (medical clearance) Post-Acute Discharge Plan: EMR reviewed. Patient assigned extended recovery bed for right total hip replacement. PT eval pending. RNCM spoke to patient's son, Kyler, to complete assessment. 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 Referral sent to [facility], awaiting response. F2F in EPIC. DC transport TBD. CM assigned will continue to follow for DC planning needs. SIGNATURE: Theron Bains RN PATIENT NAME: Angie Dutton DATE: October 08, 2024 TIME: 12:04 PM [facility] CBC panel Auto (Bld)on 10-08 Erythrocyte distribution width (RBC) [Ratio] 15.2 % High 11.5-15.0 [facility] Comment on above: Order Comment: Speci men Type: BLOOD SPECIMEN [facility] Address: [address] [place] [address] Performed By: #### T SCR #### [facility] CLIA [id number] [address] Hematocrit (Bld) [Volume fraction] 33.9 % Low 39.0-51.0 [facility] Comment on above: Order Comment: Speci men Type: BLOOD SPECIMEN Ordering [facility]: [facility] Address: [address] [place] [address] Performed By: #### T SCR #### [facility] CLIA [id number] [address] Hemoglobin (Bld) [Mass/Vol] 10.6 g/dL Low 13.0-17.0 [facility] Comment on above: Order Comment: Speci men Type: BLOOD SPECIMEN Ordering Facility: [facility] Address: [address] [place] [address] Performed By: #### T SCR #### [facility] CLIA [id number] [address] MCH (RBC) [Entitic mass] 27.9 pg Normal 26.0-34.0 [facility] Comment on above: Order Comment: Speci men Type: BLOOD SPECIMEN Ordering [facility] Address: [address] [place] [address] Performed By: #### T SCR #### [facility] CLIA [id number] [address] MCHC (RBC) [Mass/Vol] 31.3 g/dL Normal 30.5-36.0 [facility] Comment on above: Order Comment: Speci men Type: BLOOD SPECIMEN Ordering Facility[facility] Address: [address] [place] [address] Performed By: #### T SCR #### [facility] CLIA [id number] [address] MCV (RBC) [Entitic vol] 89.2 fL Normal 80.0-100.0 [facility] Comment on above: Order Comment: Speci men Type: BLOOD SPECIMEN Ordering Facility: [facility] Address: [address] [place] [address] Performed By: #### T SCR #### [facility] CLIA [id number] [address] Nucleated RBC (Bld) [#/Vol] 10*3/uL Normal <0.01 [facility] Comment on above: Order Comment: Speci men Type: BLOOD SPECIMEN Ordering Facility: [facility] Address: [address] [place] [address] Performed By: #### T SCR #### [facility] CLIA [id number] [address] Platelet mean volume (Bld) [Entitic vol] 12.2 fL Normal 9.0-12.7 [facility] Comment on above: Order Comment: Speci men Type: BLOOD SPECIMEN Order[facility] Address: [address] [place] [address] Performed By: #### T SCR #### [facility] CLIA [id number] [address] Platelets (Bld) [#/Vol] 102 10*3/uL Low 150-400 [facility] Comment on above: Order Comment: Speci men Type: BLOOD SPECIMEN Order[facility] Address: [address] [place] [address] Result Comment: No c lot detected. Performed By: #### T SCR #### [facility] CLIA [id number] [address] RBC (Bld) [#/Vol] 3.80 10*6/uL Low 4.20-6.00 [facility] Comment on above: Order Comment: Speci men Type: BLOOD SPECIMEN Order[facility] Address: [address] [place] [address] Performed By: #### T SCR #### [facility] CLIA [id number] [address] [place] [address] [place] WBC (Bld) [#/Vol] 7.12 10*3/uL Normal 3.70-11.00 [facility] Comment on above: Order Comment: Speci men Type: BLOOD SPECIMEN [facility] Address[facility] [place] [address] Performed By: #### T SCR #### [facility] CLIA [id number] [address] [place] [address] [place] CNPNon 10-08-2024 CNPN Normal [facility] CONSULTon 10-08-2024 CONSULT HNO ID: [id number] Author: YURIY SOLOMON MD Service: General Internal Medicine Author Type: Physician Type: Consults Filed: 10/13/2024 21:17 Note Text: [facility]- Consultation ANGIE DUTTON : 1940 AGE: 84 SEX: M ACCTNUM: [id number] [facility]: [facility] LOCATION: [address] ATTENDING PHYSICIAN: RYAN ALONZO DATE OF SERVICE: 10/08/2024 TIME OF SERVICE: 09:24 AM REASON FOR CONSULTATION: Postop medical management. HISTORY: This is an 84-year-old gentleman, significant medical history includes osteoarthritis, coronary artery disease, hypertension, hyperlipidemia, TIA in the past, AFib, CKD stage 3A, GERD, chronic ITP with mild thrombocytopenia, iron- deficiency anemia, bilateral carotid artery stenosis, and impaired fasting glucose. Patient underwent elective right total hip arthroplasty under general anesthesia. Patient had uneventful intraoperative course. Estimated blood loss 500 mL. Patient had uneventful night. This morning, patient is alert and oriented. Pain is fairly controlled. No nausea, vomiting, lightheadedness, dizziness, chest pain, palpitation. PAST MEDICAL HISTORY: As mentioned above. PAST SURGICAL HISTORY: Includes endoscopy, 3-vessel CABG, foot surgery, and carpal tunnel surgery. FAMILY HISTORY: Positive for coronary artery disease and hypertension. SOCIAL HISTORY: He quit smoking in 1984. He smoked for 40 years, close to 1- pack, and he drinks alcohol occasionally. MEDICATIONS: His current home medication list reviewed. ALLERGIES: He is allergic to sulfa medication, caused vomiting. REVIEW OF SYSTEMS: HEENT/neck: History of TIA in the past. No residual weakness. No history of dysphagia or odynophagia. No history of seizure disorders. No chronic cough, wheezing, dyspnea with exertion. No history of asthma, COPD, obstructive sleep apnea. He is a former smoker. History of coronary artery disease, congestive heart failure, cardiac arrhythmia, hypertension, and hyperlipidemia. No history of documented congestive heart failure. No PND or orthopnea. Does have mild carotid artery stenosis. No syncopal episode. No history of bleeding, peptic ulcer, hepatitis, colitis. History of GERD. No melenic stool. History of BPH and CKD stage 3A. He does have at least twice night micturition. No recent urinary tract infection. No history of diabetes or hypothyroidism. History of mild iron-deficiency anemia and idiopathic thrombocytopenia. PHYSICAL EXAM: General: Elderly gentleman. The patient is alert and oriented. HEENT: Sclerae anicteric. No thyromegaly. No carotid bruit. Neck: No lymphadenopathy of the neck. Lungs: Clear to auscultation bilaterally. Cardiovascular: S1, S2. Regular rhythm. No murmur, gallop, or rub present. Abdomen: Soft, nontender, nondistended. No mass felt. Lower Extremities: No ankle edema noted. IMPRESSION: 1. Osteoarthritis, status post right total hip arthroplasty. Deep venous thrombosis prophylaxis with Eliquis. 2. Coronary artery disease. Continue beta bryan, Plavix, and statins. 3. BPH. Continue Flomax. 4. Insomnia. Currently on trazodone. 5. Prediabetic. Currently on metformin. 6. Gastroesophageal reflux disease. Continue PPI. 7. Chronic pain. Continue on gabapentin. 8. Paroxysmal atrial fibrillation. Clinically remains sinus. 9. Hold other medication for now. Thank you very much for kind referral. Continue to follow while in the hospital. Yuriy Solomon M.D. Internal Medicine FRANNY:[id number] /[id number] [facility] NURSING PROGon 10-08-2024 NURSING PROG HNO ID: [id number] Author: TRAY LAMB RN Service: Nursing Author Type: Registered Nurse Type: Nursing Progress Note Filed: 10/08/2024 00:45 Note Text: Other: 2127-- Patient arrives to Unit to PACU. Patient noted waking up restless, agitated, unable to follow commands and/or answer all questions, and was constantly trying to get OOB. Patient managed to state that he was in pain to his Right Hip. PRN Dilaudid given to the Patient. Patient also was repeating how he needed to get OOB to pee. Patient education given about the Primofit, but Patient was unable to appropriately use the Primofit and ended up removing it. Admission Assessment Completed. No Family at bedside at this time. 2319-- Patient continually attempting to pull out his IV, get OOB, remove the Primofit, and was restless. ARPN paged and new orders received. Patient Bladder Scanned performed and straight cath X1 ordered. Will continue to Monitor. [facility] THERAPY NTon 10-08-2024 THERAPY NT HNO ID: [id number] Author: ITALO JAMES PT Service: Physical Therapy Author Type: Physical Therapist Type: Therapy (PT/OT/Speech/Resp) Filed: 10/08/2024 13:47 Note Text: ----- Summary: PT Evaluation ----- Physical Therapy Evaluation Summary SERVICE DATE: 10/08/2024 SERVICE TIME: 1300 to 1323 ROOM: [id number] PT 6 Clicks Score: 12 Total Joint Replacement Discharge Readiness: Not Applicable DISCHARGE RECOMMENDATIONS Subacute/SNF Recommended Discharge Disposition Comments: Pt currently functioning below baseline s/p R PARAS with increased pain, decreased ROM, decreased strength, impaired activity tolerance, impaired balance, and overall decreased functional mobility. Pt requires daily skilled services post acute stay to address deficits Recommended Discharge Disposition Due to: Functional deficits requiring ongoing therapy service prior to discharge home., Balance deficits, Functional status decline, Requires multiple therapy disciplines Recommended Discharge Equipment: To Be Determined ASSESSMENT Response to Therapy Interventions: Low Activity Tolerance, Limited Participation, Pain, Requires Additional Time to Complete Activities, Cognitive Deficits, Needs Frequent Redirection or Reinstruction Patient demonstrating new onset cognitive deficits, difficulty following cues and directions this date. Consistent redirection required for safe advancement. ModA for OOB progression. Difficulty following precautions/WB restrictions this date. Patient requires continued skilled services post acute stay to address deficits PRECAUTIONS Weight Bearing Restrictions, Fall Risk, Lines/Tubes/Drains, Impulsive with Activity, Anterior Hip Precautions Right Lower Extremity Weight Bearing Status: TTWB (Touch Down WB) CURRENT HOSPITAL COURSE s/p R PARAS with anterior approach Relevant Past Medical History: Afib, HLD, HTN, TIA, GERD, BPH, anemia, depression HOME LIVING Patient Lives With: Spouse Assistance Available: 24-Hour, Other: See Comment Comments: however spouse has dementia, dtr lives close by Entry To Home: Stairs, With Rail Number Of Stairs Into Home: 3 Number Of Stairs To Bed/Bath: 0 Tub/Shower Type: combo Laundry: self Equipment Owned: Cane, Elevated Toilet Seat, Grab Bars- Shower, Grab Bars- Toilet, Hand Held Shower, Walker- Wheeled PRIOR FUNCTIONAL LEVEL Within Functional Limits, Required Assistance Assistance Required With: Cleaning Pt states he uses milk carton at night to urinate for safety. Reports one fall in last 6 mos. Amb with quad cane with light. Sleeps in flat bed. Drives, shops, most cooking, and laundry Spouse cleans. 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 SUBJECTIVE Patient reports, I think I need a bedpan. I keep feeling like I need to go and then I can't go, It's so frustrating. Agreeable to PT, cleared with RN THERAPY DIAGNOSIS Difficulty walking-musculoskeletal TREATMENT INTERVENTIONS Therapeutic Activity (32906), Evaluation Timed Code Treatment (minutes): 8 Skilled Treatment Time (minutes): 23 TRAINING AND EDUCATION PROVIDED Anatomy and Impact on Deficits, Assistive Device Use, Bed Mobility, Benefits of In-Hospital Mobility, Falls Prevention, Expected Functional Level, Role of Physical Therapy, Sitting Balance, Transfers, Standing Balance, Treatment Protocol THERAPEUTIC SKILLS USED Activity Dosing, Cues for Sequencing/Proper Technique for Activity, Cuing Tactile, Cuing Verbal, Cuing Visual, Bed in Chair Position, Facilitation of Joint Range of Motion, Management of Critical Lines, Tubes and/or Drains, Physical Assist, Postural Alignment Correction, Muscle Activation Facilitation FUNCTIONAL STATUS Bed Mobility Supine To Sit: Additional Information, Moderate Assistance Patient requires ModA with frequent redirection to task. Heavy retro leaning initially. Cues for anterior hip precautions. DIfficulty remaining upright at EOB. Sit to Supine: Additional Information, Moderate Assistance to trunk and BLE, patient demonstrates difficulty with directional cues Scooting: Additional Information, Minimal Assistance fwd/retro Transfers Sit To Stand: Additional Information, Moderate Assistance Tactile and verbal cues for UE support, patient with difficulty following cues, requires redirection. Stand To Sit: Additional Information, Minimal Assistance Cues for safe approach, feeling BLE against surface, reaching UE back to surface, and controlled descent. Patient with difficulty following cues Bed to Chair Gait Additional Information, Moderate Assistance Patient demonstrates difficulty maintaining TDWB restrictions, Cues for step-to pattern laterally. Patient requires assist for FWW management, and step by step cues for pro (more content not included)... [facility] THERAPY NT HNO ID: [id number] Author: LOUIS BOYCE OTR/L Service: Occupational Therapy Author Type: Occupational Therapist Type: Therapy (PT/OT/Speech/Resp) Filed: 10/08/2024 13:19 Note Text: ----- Summary: OT ELISE ----- Occupational Therapy Evaluation Summary SERVICE DATE: 10/08/2024 SERVICE TIME: 1203 to 1241 ROOM: [id number] OT 6 Clicks Score: 14 Total Joint Replacement Discharge Readiness: Not Applicable DISCHARGE RECOMMENDATIONS Subacute/SNF Recommended Discharge Disposition Due to: Functional deficits requiring ongoing therapy service prior to discharge home., ADL impairment, Cognitive deficits new/worsened, Functional status decline, Requires multiple therapy disciplines ASSESSMENT Response to Therapy Interventions: Cognitive Deficits, Low Activity Tolerance, Needs Frequent Redirection or Reinstruction, Requires Additional Time to Complete Activities, Slow Progression with ADLs/IADLs, Slow Progression with Functional Activities/Skills Pt typically indep for ADLs, most IADLs, amb w/ cane, presents with cognitive, weight bearing and ROM deficits affecting functional transfers and self care tasks. Pt is max A for most functional mobility, with poor sitting and standing balance, poor command following, and requires frequent redirection throughout session as well as increased time. Per son, pt is not confused at baseline and provides care for spouse. Level of assist pt requires to return to OF exceeds that available at home. PRECAUTIONS Weight Bearing Restrictions, Fall Risk, Lines/Tubes/Drains, Impulsive with Activity, Anterior Hip Precautions Right Lower Extremity Weight Bearing Status: Other (Touch Down WB) CURRENT HOSPITAL COURSE s/p R PARAS with anterior approach Relevant Past Medical History: [place], CVA HOME LIVING Patient Lives With: Spouse Assistance Available: 24-Hour, Other: See Comment Comments: however spouse has dementia, dtr lives close by Entry To Home: Stairs, With Rail Number Of Stairs Into Home: 3 Number Of Stairs To Bed/Bath: 0 Tub/Shower Type: combo Laundry: self Equipment Owned: Cane, Elevated Toilet Seat, Grab Bars- Shower, Grab Bars- Toilet, Hand Held Shower, Walker- Wheeled PRIOR FUNCTIONAL LEVEL Within Functional Limits, Required Assistance Assistance Required With: Cleaning Indep for ADLs, completes most IADLs. Reports one fall in last 6 mos. Amb with quad cane with light. Pt states he uses milk carton at night to urinate for safety.Sleeps in flat bed. Drives, shops, most cooking, and laundry Spouse cleans. 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 Baseline Cognition: Other (see comment) (unknown) SUBJECTIVE I got up a little ago but it didn't go very well. Son present mid eval who confirms pt is confused and is not baseline. COGNITION Responsiveness: Awake Follows Commands: With Repetition, With Increased Time, 1-step Commands, Cueing Needed Cueing to Follow Commands: Maximum Attention Deficits: Distractible, Unable to Redirect THERAPY DIAGNOSIS Reduced mobility-other, Decreased activities of daily living (ADL), Muscle Weakness (generalized), Unsteadiness on feet, General symptoms and signs-other TREATMENT INTERVENTIONS Evaluation, Cognitive Training (25253 and 76304), Therapeutic Activity (28860) Timed Code Treatment (minutes): 23 Skilled Treatment Time (minutes): 38 TRAINING AND EDUCATION PROVIDED Assistive Device Use, Bed Mobility, Attention Diversion Techniques, Benefits of In-Hospital Mobility, Discharge Planning, Cognitive Skills, Command Following, Coping Skills/Resiliency, Disease Specific Education, Expected Functional Level, Functional Mobility Involving ADLs, Health Literacy, Identification of Systems of Support, Insight into Deficits, Memory/Attention, Positioning, Precautions/Restrictions, Role of Occupational Therapy, Safety/Judgment, Self-Efficacy, Sitting Balance to Improve [place] with ADLs/Self-Care, Standing Balance to Improve [place] with ADLs/Self-Care, Transfer - Sit to Stand, Treatment Protocol THERAPEUTIC SKILLS USED Activity Dosing, Cues for Sequencing/Proper Technique for Activity, Cuing Tactile, Cuing Verbal, Cuing Visual, Family Training, Movement Facilitation, Physical Assist, Muscle Activation Facilitation, Repetitive Task Learning, Task Analysis Learning, Teach-Back for Education, Therapeutic Use of Self FUNCTIONAL STATUS Activities of Daily Living Assist Level Additional Information Feeding Independent Grooming Set Up, Additional Information seated based on WB deficits Bathing Upper Body Set Up Bathing Lower Body Maximal Assistance, Additional Information able to cleanse groin and upper thighs only Dressing Upper Body Set Up Dressing Lower Body Total Assistance, Ad (more content not included)... Normal [facility] THERAPY NT HNO ID: [id number] Author: ITALO JAMES, PT Service: Physical Therapy Author Type: Physical Therapist Type: Therapy (PT/OT/Speech/Resp) Filed: 10/08/2024 09:35 Note Text: PHYSICAL THERAPY MISSED VISIT SERVICE DATE: 10/08/2024 SERVICE TIME: 930 ROOM: [place] [address] Patient not seen due to Patient Not Available. Patient just beginning breakfast upon PT approach. Family member at bedside. Will re-attempt SIGNATURE: Italo James PT PATIENT NAME: Angie Dutton DATE: October 08, 2024 TIME: 9:34 AM [facility] ALLIED HEALTHon 10-07-2024 ALLIED HEALTH HNO ID: [id number] Author: MERCEDES STEELE RT(R) Service: ? Author Type: Technologist Type: Allied Health Filed: 10/07/2024 16:57 Note Text: Radiology Service Progress Note PATIENT NAME: Angie Dutton DATE OF SERVICE: October 07, 2024 TIME: 4:57 PM PATIENT IDENTITY VERIFICATION COMPLETED USING TWO (2) IDENTIFIERS: Name and Date of confirmed by identification band. FALL SCREENING: Has the patient had 2 falls in the last year or 1 fall with injury or currently using an Ambulatory Assistive Device (Walker, Cane, Wheelchair, Crutches, etc.)? Inpatient: Screened on floor PATIENT GENDER DATA: Assigned male at PATIENT RELEVANT IMPLANT DATA REVIEWED: Not Applicable PATIENT PRESENTS WITH AN IMPLANTABLE OR ATTACHED GAS TREATER: No RADIOLOGY DEPARTMENT: General X-ray: Exam(s) Completed: Pelvis X-Ray: Pelvis General AP PERIPHERAL IV DATA: Not applicable SIGNED BY: RT Tushar(R) October 07, 2024 4:57 PM [facility] ANE POSTPROC EVALon 025 ANES POSTPROC EVAL HNO ID: [id number] Author: HARLEEN GARCIA MD Service: Anesthesiology Author Type: Anesthesiologist Type: Anesthesia Postprocedure Evaluation Filed: 10/07/2024 20:18 Note Text: POST ANESTHESIA EVALUATION NOTE : 1940 Procedure Summary Date: 10/07/24 Room / Location: AR OR / [facility] OR Anesthesia Start: 1429 Anesthesia Stop: 2016 Procedure: ROBOTIC ASSISTED ANTERIOR TOTAL HIP ARTHROPLASTY (Right: Hip) Diagnosis: Primary osteoarthritis of right hip (Primary osteoarthritis of right hip [M16.11]) Surgeons: Ryan Alonzo MD Responsible Provider: Harleen Garcia MD Anesthesia Type: general ASA Status: 3 Anesthesia Type: general Airway Type: ETT Last Vitals Vitals Value Taken Time BP 10/07/242016 Temp 10/07/242016 Pulse 10/07/242016 Resp 10/07/242016 SpO2 10/07/242016 Post Anesthesia Patient Status Patient Evaluation: PACU. PACU/ICU Patient Condition: stable. Anticipated Disposition: inpatient floor planned admission. Neurological Status: lethargic. lethargic status: responds to tactile stimuli. Pulmonary Status: breathing comfortably on supplemental oxygen Airway Control: returned to baseline unsupported. Cardiovascular Status: stable. Pain Management: clinically adequate - multimodal analgesia pain management approach Postoperative Hydration: acceptable. Intraoperative Events: no significant anesthesia events Post Operative Nausea/Vomiting Status: no significant post operative nausea or vomiting Recommendation: continue current plan of care and further care per PACU/ICU/floor team. Anesthesia Observations No Documentation SIGNATURE: Harleen Garcia MD PATIENT NAME: Angie Dutton DATE: October 07, 2024 TIME: 8:17 PM CSN: [id number] [facility] ANES PRE-OPon 10-07-2024 ANES PRE-OP HNO ID: [id number] Author: HARLEEN GARCIA MD Service: Anesthesiology Author Type: Anesthesiologist Type: Anesthesia Preprocedure Evaluation Filed: 10/07/2024 09:57 Note Text: ANESTHESIOLOGY DAY OF SURGERY NOTE : 1940 Procedure Information Date/Time: 10/07/24729 Procedure: ROBOTIC ASSISTED ANTERIOR TOTAL HIP ARTHROPLASTY (Right: Hip) Location: AR OR / AR OR Surgeons: Ryan Alonzo MD Estimated body mass index is 25.62 kg/m? as calculated from the following: Height as of 09/30/24: 171.5 cm (5' 7.5). Weight as of 09/30/24: 75.3 kg (166 lb). Most recent hematocrit and potassium results: Hematocrit 34.7 10/07/2024 Potassium 4.7 08/30/2024 Relevant Problems CARDIO (+) 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) (+) Bilateral carotid artery stenosis (+) Coronary atherosclerosis (+) Essential hypertension, benign (+) Paroxysmal A-fib (HCC) (+) RBBB GI (+) Esophageal reflux -RENAL (+) Hypertensive kidney disease with stage 3a chronic kidney disease (HCC) (+) Stage 3a chronic kidney disease (HCC) NEURO-PSYCH (+) TIA (transient ischemic attack) I - PHYSICAL EVALUATION AIRWAY Patient intubated: No. Tracheostomy tube not present Mallampati: II. TM distance: >3 FB. Neck ROM: full ROM without neurological symptoms. Mouth opening: adequate. Short neck: no. Thick neck: no DENTAL Dental findings: teeth intact and missing tooth/teeth. Additional exam findings: yes. CARDIOVASCULAR Rhythm: regular Rate: normal PULMONARY Breath sounds clear to auscultation. II - ANESTHESIA PLAN ASA Score: 3 Anesthetic Plan: general Airway type: ETT The patient is not a current smoker. NPO Status: adequate Beta Bryan Monitoring Plan Monitoring plan: Standard ASA. Post Procedure Analgesic Plan Postoperative analgesic plan: parenteral or oral opioids and multimodal analgesia. Informed Consent Anesthetic risks, benefits, alternatives, personnel and consent discussed: yes. Patient / Responsible Constitution Party agrees to proceed: yes Patient / Surrogate agrees to blood products: yes DNR status not reviewed with patient and/or family prior to surgery. Significant changes in the patient condition since the History and Physical, not otherwise documented in primary service progress note: no. Potential Anesthesia issues that may suggest increased risk of complications or contraindication to planned procedure: none. Vitals Value Taken Time BP 156/67 10/07/24625 Pulse 78 10/07/24625 Resp 16 10/07/24625 Temp 36.3 ?C (97.3 ?F) 10/07/24625 SpO2 99 % 10/07/24625 Facility-Administered Medications as of 10/07/2024 Medication Dose Route Frequency lidocaine (PF) 10 mg/mL (1 %) 1-2 mg injection (XYLOCAINE) 0.1-0.2 mL INTRADERMAL PRN NaCl 0.9% iv flush bag 20 mL INTRAVENOUS PRN ceFAZolin iv piggyback 2 g in D5W (iso-osmotic) 100 mL (ANCEF) 2 g INTRAVENOUS Pre-Op Once tranexamic acid (CYKLOKAPRON) in NaCl 0.7% 1,000 mg 100 mL 1,000 mg INTRAVENOUS Pre-Op Once tranexamic acid (CYKLOKAPRON) in NaCl 0.7% 1,000 mg 100 mL 1,000 mg INTRAVENOUS ONCE acetaminophen 1,000 mg tab(s) (TYLENOL) 1,000 mg ORAL Pre-Op Once celecoxib 200 mg cap(s) (CeleBREX) 200 mg ORAL Pre-Op Once oxyCODONE ER 10 mg tab(s) (OxyCONTIN) 10 mg ORAL Pre-Op Once scopolamine (delivers 1 mg over 3 days) 1 Patch (TRANSDERM-SCOP) 1 Patch TRANSDERMAL ONCE scopolamine - VERIFY patch OTHER q 8 H [START ON 10/08/2024] scopolamine - REMOVE PATCH OTHER ONCE Outpatient Medications as of 10/07/[address] (PROTONIX) 20 mg tablet Take 2 tablets by mouth once daily. gabapentin (NEURONTIN) 400 mg capsule Take 1 capsule by mouth two times a day for 180 days. cyclobenzaprine (FLEXERIL) 5 mg tablet Take 1 tablet by mouth two times a day as needed. ferrous sulfate 325 mg (65 mg iron) tablet Take 1 tablet by mouth once daily. metoprolol succinate ER (TOPROL XL) 50 mg 24 hr tablet Take 1 tablet by mouth every afternoon. metFORMIN ER (GLUMETZA) 500 mg 24 hr tablet Take 1 tablet by mouth daily with breakfast. ezetimibe (ZETIA) 10 mg tablet Take 1 tablet by mouth once daily. isosorbide mononitrate ER (IMDUR) 30 mg 24 hr tablet Take 0.5 tablets by mouth once daily. simvastatin (ZOCOR) 40 mg tablet Take 1 tablet by mouth daily at bedtime. tamsulosin (FLOMAX) 0.4 mg Take 1 capsule by mouth daily at bedtime. traZODone (DESYREL) 50 mg tablet Take 1 tablet by mouth daily at bedtime. clopidogrel (PLAVIX) 75 mg tablet Take 75 mg by mouth once daily. docusate sodium (COLACE) 100 mg capsule Take 1 capsule by mouth every morning. apixaban (ELIQUIS) 5 mg tab(s) Take 1 tablet by mouth two times a day. nitroglycerin sublingual (NITROQUICK) 0.4 mg SL tablet Dissolve 1 tablet under the tongue as directed. DISSOLVE ONE(1) TABLET UNDER THE TOUNGUE NEEDED FOR CHEST PAIN,EVERY 5 MIN X3 acetaminophen 650 mg CR tab (more content not included)... Normal [facility] ARTERIAL BLOOD GASESon 10-07 Base deficit (BldA) [Moles/Vol] -1 mmol/L Normal -2-0 [facility] Comment on above: Order Comment: Speci men Type: ARTERIAL BLOOD SPECIMENOrdering Facility: [facility] Address: [address] [place] [address] Performed By: #### A LLBG ####[facility]ATORYIA [id number] [facility] [id number] [address] [address] Carboxyhemoglobin (BldA) [Mass fraction] 1.4 % Normal 0.0-2.0 [facility] Comment on above: Order Comment: Speci men Type: ARTERIAL BLOOD SPECIMENOrdering Facility: [facility] Address: [address] [place] [address] Result Comment: Carb oxyhemoglobin Reference Range for Smokers: 2.0-8.0% Performed By: #### A LLBG ####[facility]ATORYIA [id number] [facility] [id number] [address] [address] CO2 (Bld) [Partial pressure] 47 mm Hg High 36-46 [facility] Comment on above: Order Comment: Speci men Type: ARTERIAL BLOOD SPECIMENOrdering Facility: [facility] Address: [address] [place] [address] Performed By: #### A LLBG ####[facility]ATORYDERRICK [facility]ILLE [id number] [facility] [id number] [address] [address] CO2 adjusted to patient's actual temperature (Bld) [Partial pressure] Normal [facility] Comment on above: Order Comment: Speci men Type: ARTERIAL BLOOD SPECIMENOrdering Facility: [facility] Address: [address] [place] [address] Performed By: #### A LLBG ####[facility]IA [id number] [facility] [id number] [address] [address] FIO2 55 % Normal [facility] Comment on above: Order Comment: Speci men Type: ARTERIAL BLOOD SPECIMENOrdering Facility: [facility] Address: [address] [place] [address] Performed By: #### A LLBG ####[facility] [id number] [facility] [id number] [address] [address] HCO3 (Bld) [Moles/Vol] 25 mmol/L Normal 22-26 [facility] Comment on above: Order Comment: Speci men Type: ARTERIAL BLOOD SPECIMENOrdering Facility: [facility] Address: [address] [place] [address] Performed By: #### A LLBG ####[facility]PIRATORYCLIA [id number] [facility] [id number] [address] [address] Hemoglobin (Bld) [Mass/Vol] 10.5 g/dL Low 13.0-17.0 [facility] Comment on above: Order Comment: Speci men Type: ARTERIAL BLOOD SPECIMENOrdering Facility: [facility] Address: [address] [place] [address] Performed By: #### A LLBG ####[facility]PIRATORYCLIA [id number] [facility] [id number] [address] [address] Lactate [Moles/Vol] 0.6 mmol/L Normal 0.5-2.2 [facility] Comment on above: Order Comment: Speci men Type: ARTERIAL BLOOD SPECIMENOrdering Facility: [facility] Address: [address] [place] [address] Performed By: #### A LLBG ####[facility]ATORYIA [id number] [facility] [id number] [address] [address] Methemoglobin (Bld) [Mass fraction] % Normal 0.0-1.5 [facility] Comment on above: Order Comment: Speci men Type: ARTERIAL BLOOD SPECIMENOrdering Facility: [facility] Address: [address] [place] [address] Performed By: #### A LLBG ####[facility]ATORYIA [id number] [facility] [id number] [address] [address] O2 THERAPY VENT=Ventilator Normal [facility] Comment on above: Order Comment: Speci men Type: ARTERIAL BLOOD SPECIMENOrdering Facility: [facility] Address: [address] [place] [address] Performed By: #### A LLBG ####[facility] [id number] [facility]OS[facility] RES[facility]AT[facility] [id number] [address] [address] Oxygen (Bld) [Partial pressure] 76 mm Hg Low 85-95 [facility] Comment on above: Order Comment: Speci men Type: ARTERIAL BLOOD SPECIMENOrdering Facility: [facility] Address: [address] [place] [address] Performed By: #### A LLBG ####[facility] [id number] [facility] [id number] [address] [address] Oxygen adjusted to patient's actual temperature (Bld) [Partial pressure] Normal [facility] Comment on above: Order Comment: Speci men Type: ARTERIAL BLOOD SPECIMENOrdering Facility: [facility] Address: [address] [place] [address] Performed By: #### A LLBG ####[facility] [id number] [facility]IRAT[facility] [id number] [address] [address] Oxyhemoglobin (BldA) [Mass fraction] 93 % Low 95-98 [facility] Comment on above: Order Comment: Speci men Type: ARTERIAL BLOOD SPECIMENOrdering Facility: [facility] Address: [address] [place] [address] Performed By: #### A LLBG ####[facility] [id number] [facility] [id number] [address] [address] pH (Bld) 7.33 [pH] Low 7.35-7.45 [facility] Comment on above: Order Comment: Speci men Type: ARTERIAL BLOOD SPECIMENOrdering Facility: [facility] Address: [address] [place] [address] Performed By: #### A LLBG ####[facility] [id number] [facility] [id number] [address] [address] pH adjusted to patient's actual temperature (Bld) [facility] Comment on above: Order Comment: Speci men Type: ARTERIAL BLOOD SPECIMENOrdering Facility: [facility] Address: [address] [place] [address] Performed By: #### A LLBG ####[facility]PIRATORYCLIA [id number] [facility] [id number] [address] [address] PO2 / FIO2 RATIO 138 mmHg Low >300 [facility] Comment on above: Order Comment: Speci men Type: ARTERIAL BLOOD SPECIMENOrdering Facility: [facility] Address: [address] [place] [address] Performed By: #### A LLBG ####[facility]IRATORYCLIA [id number] [facility] [id number] [address] [address] Potassium [Moles/Vol] 4.2 mmol/L Normal 3.5-5.0 [facility] Comment on above: Order Comment: Speci men Type: ARTERIAL BLOOD SPECIMENOrdering Facility: [facility] Address: [address] [place] [address] Performed By: #### A LLBG ####[facility]ATORYIA [id number] [facility] [id number] [address] [address] CBC panel Auto (Bld)on 10-07 Erythrocyte distribution width (RBC) [Ratio] 15.0 % Normal 11.5-15.0 [facility] Comment on above: Order Comment: Speci men Type: BLOOD SPECIMENOrdering Facility: [facility] Address: [address] [place] [address] Performed By: #### 5 8410-2 ####[facility] LABORATORYCLIA [id number] [place], [place] [id number] [place] [address] [place] Hematocrit (Bld) [Volume fraction] 32.8 % Low 39.0-51.0 [facility] Comment on above: Order Comment: Speci men Type: BLOOD SPECIMENOrdering Facility: [facility] Address: [address] [place] [address] Performed By: #### 5 8410-2 ####[facility] LABORATORYCLIA [id number] [place] [address] [place] Hemoglobin (Bld) [Mass/Vol] 10.6 g/dL Low 13.0-17.0 [facility] Comment on above: Order Comment: Speci men Type: BLOOD SPECIMENOrdering Facility: [facility] Address: [address] [place] [address] Performed By: #### 5 8410-2 ####[facility] LABORATORYCLIA [id number] [address] MCH (RBC) [Entitic mass] 28.2 pg Normal 26.0-34.0 [facility] Comment on above: Order Comment: Speci men Type: BLOOD SPECIMENOrdering Facility: [facility] Address: [address] [place] [address] Performed By: #### 5 8410-2 ####[facility]CLIA [id number] [address] MCHC (RBC) [Mass/Vol] 32.3 g/dL Normal 30.5-36.0 [facility] Comment on above: Order Comment: Speci men Type: BLOOD SPECIMENOrdering Facility: [facility] Address: [address] [place] [address] Performed By: #### 5 8410-2 ####[facility]ATORYCLIA [id number] [address] MCV (RBC) [Entitic vol] 87.2 fL Normal 80.0-100.0 [facility] Comment on above: Order Comment: Speci men Type: BLOOD SPECIMENOrdering Facility: [facility] Address: [address] [place] [address] Performed By: #### 5 8410-2 ####[facility]ORATORYCLIA [id number] [address] Nucleated RBC (Bld) [#/Vol] 10*3/uL Normal <0.01 [facility] Comment on above: Order Comment: Speci men Type: BLOOD SPECIMENOrdering Facility: [facility] Address: [address] [place] [address] Performed By: #### 5 8410-2 ####[facility]ORATORYCLIA [id number] [address] Platelet mean volume (Bld) [Entitic vol] 12.3 fL Normal 9.0-12.7 [facility] Comment on above: Order Comment: Speci men Type: BLOOD SPECIMENOrdering Facility: [facility] Address: [address] [place] [address] Performed By: #### 5 8410-2 ####[facility]ORATORYCLIA [id number] [address] [place] Platelets (Bld) [#/Vol] 110 10*3/uL Low 150-400 [facility] Comment on above: Order Comment: Speci men Type: BLOOD SPECIMENOrdering Facility: [facility] Address: [address] [place] [address] Result Comment: No c lot detected. Performed By: #### 5 8410-2 ####[facility]ORATORYCLIA [id number] [address] [place] RBC (Bld) [#/Vol] 3.76 10*6/uL Low 4.20-6.00 [facility] Comment on above: Order Comment: Speci men Type: BLOOD SPECIMENOrdering Facility: [facility] Address: [address] [place] [address] Performed By: #### 5 8410-2 ####[facility]ORATORYCLIA [id number] [address] WBC (Bld) [#/Vol] 7.27 10*3/uL Normal 3.70-11.00 [facility] Comment on above: Order Comment: Speci men Type: BLOOD SPECIMENOrdering Facility: [facility] Address: [address] [place] [address] Performed By: #### 5 8410-2 ####[facility]ORATORYCLIA [id number] [address] Erythrocyte distribution width (RBC) [Ratio] 15.5 % High 11.5-15.0 [facility] Comment on above: Order Comment: Speci men Type: BLOOD SPECIMEN [facility] Address: [address] [place] [address] Performed By: #### 5 8410-2 #### [facility] CLIA [id number] [address] Hematocrit (Bld) [Volume fraction] 34.7 % Low 39.0-51.0 [facility] Comment on above: Order Comment: Speci men Type: BLOOD SPECIMEN [facility] Address: [address] [place] [address] Performed By: #### 5 8410-2 #### [facility] CLIA [id number] [address] [place] Hemoglobin (Bld) [Mass/Vol] 11.2 g/dL Low 13.0-17.0 [facility] Comment on above: Order Comment: Speci men Type: BLOOD SPECIMEN [facility] Address: [address] [place] [address] Performed By: #### 5 8410-2 #### [facility] CLIA [id number] [address] MCH (RBC) [Entitic mass] 28.8 pg Normal 26.0-34.0 [facility] Comment on above: Order Comment: Speci men Type: BLOOD SPECIMEN [facility] Address: [address] [place] [address] Performed By: #### 5 8410-2 #### [facility] CLIA [id number] [address] [place] MCHC (RBC) [Mass/Vol] 32.3 g/dL Normal 30.5-36.0 [facility] Comment on above: Order Comment: Speci men Type: BLOOD SPECIMEN [facility] Address: [address] [place] [address] Performed By: #### 5 8410-2 #### [facility] CLIA [id number] [address] MCV (RBC) [Entitic vol] 89.2 fL Normal 80.0-100.0 [facility] Comment on above: Order Comment: Speci men Type: BLOOD SPECIMEN [facility] Address: [address] [place] [address] Performed By: #### 5 8410-2 #### [facility] CLIA [id number] [address] [place] [address] [place] Nucleated RBC (Bld) [#/Vol] 10*3/uL Normal <0.01 [facility] Comment on above: Order Comment: Speci men Type: BLOOD SPECIMEN [facility] Address: [address] [place] [address] Performed By: #### 5 8410-2 #### [facility] CLIA [id number] [address] [place] [address] [place] Platelet mean volume (Bld) [Entitic vol] 12.2 fL Normal 9.0-12.7 [facility] Comment on above: Order Comment: Speci men Type: BLOOD SPECIMEN [facility] Address: [address] [place] [address] Performed By: #### 5 8410-2 #### [facility] CLIA [id number] [address] [place] [address] [place] Platelets (Bld) [#/Vol] 89 10*3/uL Low 150-400 [facility] Comment on above: Order Comment: Speci men Type: BLOOD SPECIMEN [facility] Address: [address] [place] [address] Result Comment: No c lot detected. Performed By: #### 5 8410-2 #### [facility] CLIA [id number] [address] [place] RBC (Bld) [#/Vol] 3.89 10*6/uL Low 4.20-6.00 [facility] Comment on above: Order Comment: Speci men Type: BLOOD SPECIMEN [facility] Address: [address] [place] [address] Performed By: #### 5 8410-2 #### [facility] CLIA [id number] [address] [place] WBC (Bld) [#/Vol] 3.71 10*3/uL Normal 3.70-11.00 [facility] Comment on above: Order Comment: Speci men Type: BLOOD SPECIMEN [facility] Address: [facility] [place] [id number] Performed By: #### 5 8410-2 #### [facility] [place] [id number] [address] [place] [address] [place] OPERATIVE NOon 10-07-2024 OPERATIVE NO HNO ID: [id number] Author: RYAN ALONZO MD Service: Orthopaedic Surgery Author Type: Physician Type: Operative Report Filed: 10/07/2024 20:48 Note Text: PATIENT NAME: Angie Dutton CSN: [id number] LOG ID: [id number] Surgery Date: 10/07/2024 Surgeon(s) and Contact Lens Curve Grinder(s): Gabriel ALEJANDRA - Assiting Surgeons and Role: * Ryan Alonzo MD - Primary * Albino Estes MD - Resident - Assisting 22 modifier None BMI: Estimated body mass index is 25.62 kg/m? as calculated from the following: Height as of 09/30/24: 171.5 cm (5' 7.5). Weight as of 09/30/24: 75.3 kg (166 lb). Procedure(s): Procedure(s) (LRB): ROBOTIC ASSISTED ANTERIOR TOTAL HIP ARTHROPLASTY (Right) Anesthesia: General Incision Start: 3:10 PM Incision Stop: 7:58 PM Attestation: I was present for and performed all critical portions of the case. Residents were present and necessary for safe patient positioning, sterile prepping and draping, assistance, positioning and protection, soft tissue retraction, protection of vital structures and suture management during the case, and superficial wound closure. Also critical for safe transit to the recovery room in stable condition. Preop Diagnosis: Pre-Op Diagnosis Codes: * Primary osteoarthritis of right hip [M16.11] Postop Diagnosis: Same as Pre-Op Diagnosis Codes: * Primary osteoarthritis of right hip [M16.11] Implants: Implant Name Type Inv. Item Serial No. News Videotape Editor Lot No. LRB No. Used Action INSERT ACETABULAR 40MM 0D E HIP X3 TRIDENT - [id number] Joint - Hip INSERT ACETABULAR 40MM 0D E HIP X3 TRIDENT [employer] [id number] Right 1 Implanted STEM 15MM CONICAL 155MM FEMORAL MODULAR DISTAL HIP - [id number] Joint STEM 15MM CONICAL 155MM FEMORAL MODULAR DISTAL HIP [employer] [id number] Right 1 Wasted SHELL TRIDENT II 54MM E TRITANIUM ACETABULAR 5 SCREW HOLE CLUSTER STERILE - [id number] Joint SHELL TRIDENT II 54MM E TRITANIUM ACETABULAR 5 SCREW HOLE CLUSTER STERILE [employer] [id number] Right 1 Implanted CONICAL DISTAL STEM 20MM X 115MM - [id number] Joint - Hip CONICAL DISTAL STEM 20MM X 115MM SHANTE [id number] Right 1 Implanted CABLE DALL-MILES 2MM [employer]IT[employer] SET SLEEVE BEAD HIP - [id number] Joint - Hip CABLE DALL-MILES 2MM VITALLIUM ORTHOPEDIC SET SLEEVE BEAD HIP [employer] [id number] Right 1 Implanted BODY ANABAPTISM 25MM +20MM CONE MODULAR REVISION HIP - [id number] Joint - Hip BODY ANABAPTISM 25MM +20MM CONE MODULAR REVISION HIP [employer] [id number] Right 1 Implanted CABLE DALL-MILES 2MM [employer] OR[employer] SET SLEEVE BEAD HIP - [id number] Joint - Hip CABLE DALL-MILES 2MM VITALLIUM ORTHOP[employer]IC SET SLEEVE BEAD HIP [employer] [id number] Right 1 Implanted SLEEVE V40 +0MM OFFSET UNIVERSAL TAPER TITANIUM ADAPTER HIP - [id number] Joint - Hip SLEEVE V40 +0MM OFFSET UNIVERSAL TAPER TITANIUM ADAPTER HIP [employer] [id number] Right 1 Implanted CABLE DALL-MILES 2MM [employer]IT[employer] ORTH[employer] SET SLEEVE BEAD HIP - [id number] Joint - Hip CABLE DALL-MILES 2MM VITALLIUM ORTHOPEDIC SET SLEEVE BEAD HIP [employer] [id number] Right 1 Implanted HEAD 40MM UNIVERSAL BIOLOX DELTA TRITANIUM FEMORAL HIP - [id number] Joint - Hip HEAD 40MM UNIVERSAL BIOLOX DELTA TRITANIUM FEMORAL HIP [employer] [id number] Right 1 Implanted Problem List: ACTIVE PROBLEM LIST Spinal Stenosis, Lumbar Region, Without Neurogenic Claudication Thoracic Or Lumbosacral Neuritis Or Radiculitis, Unspecified Lumbosacral Spondylosis Without Myelopathy Essential Hypertension, Benign Mixed Hyperlipidemia Coronary Atherosclerosis Insomnia, Unspecified Esophageal Reflux Impaired Fasting Glucose Allergic Rhinitis, Cause Unspecified Elevated Serum Creatinine Serum Calcium Elevated Atherosclerosis of Sioux 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 Their hip pain is severe with activity and has progressed significantly over time . X-rays reveal sdrbijee-tv-[id number] loss of articular cartilage of the hip with osteophytes consistent with advanced hip osteoarthritis. Non-operative treatment has been attempted, but is now ineffective at controlling symptoms during normal daily activities. Motion has become limited and rotation severely restricted. A total hip arthroplasty was recommended at this time. The risks, benefits and potential complications of the arthroplasty surgery were discussed (more content not included)... Normal [facility] Pathology biopsy report Miguel (Tiss)on 10-07-2024 CASE REPORT [facility] Comment on above: Order Comment: Briana lobo Type: BLOOD SPECIMEN [facility] Address: [address] [place] [address] Result Comment: Surg ical Pathology Report Case: [id number] Authorizing Provider: Ryan Alonzo, Collected: 10/07/2024 03:03 PM Ordering Location: [facility] Surgery Received: 10/10/2024 09:40 AM Pathologist: Rashi Chinchilla MD Specimen: Femoral Head, Right Performed By: #### 5 8410-2 #### [facility] CLIA [id number] [address] CLINICAL HISTORY [facility] Comment on above: Order Comment: Briana lobo Type: BLOOD SPECIMEN [facility] Address: [address] [place] [address] Result Comment: Pre- op diagnosis: 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 R ight femoral head, arthroplasty: - Severe degenerative joint disease. at 1010 EST Performed By: #### 5 8410-2 #### [facility] CLIA [id number] [address] OF [facility] FINAL PERFORMING LAB [facility] Comment on above: Order Comment: Speci men Type: BLOOD SPECIMEN [facility] Address: [address] [place] [address] Result Comment: Diag nostic interpretation performed at: [facility], [address] [facility] [address] CLIA# [id number] Medical Technologist Prn: Alvin Pfeiffer MD Performed By: #### 5 8410-2 #### [facility] CLIA [id number] [address] GROSS DESCRIPTION [facility] Comment on above: Order Comment: Speci [facility] Type: BLOOD SPECIMEN [facility] Address: [address] [place] [address] Result Comment: A. F emoral Head, Right Received in formalin labeled femoral head, right is a 5.0 x 4.5 x 3.8 cm femoral head. The articular surface displays pitting and eburnation. Minimal osteophyte formation is present along the periphery. Sectioning reveals a 0.8 x 0.6 x 0.5 cm subchondral cyst beneath the areas of eburnation. No definitive areas of necrosis are identified. Manager Rn sections are submitted in cassette A1 after decalcification in formic acid. [place] [address] JXM 10/10/24 3:32 PM Performed By: #### 5 8410-2 #### [facility] CLIA [id number] [address] TYPE + SCREENon 10-07-2024 ABO O [facility] Comment on above: Order Comment: Speci men Type: BLOOD SPECIMEN [facility] Address: [address] [place] [address] Performed By: #### T SCR #### [facility] CLIA [id number] [address] [place] [address] [facility] Rh Nom (Bld) Positive [facility] Comment on above: Order Comment: Speci men Type: BLOOD SPECIMEN [facility] Address: [address] [place] [id number] Performed By: #### T SCR #### [facility] CLIA [id number] [address] [place] [address] [facility] TYPE AND SCREEN EXPIRATION 10/10/2024 23:59 [facility] Comment on above: Order Comment: Speci men Type: BLOOD SPECIMEN [facility] Address: [address] [place] [address] Performed By: #### T SCR #### [facility] CLIA [id number] [address] [place], [place] [address] [place] [address] XR PELVIS 1V APon 10-07-2024 XR PELVIS 1V AP * * *Final Report* * * DATE OF EXAM: Oct 07 2024 8:48PM MDX 5239 - XR PELVIS 1V AP / PROCEDURE REASON: Post-operative / post-procedure assessment * * * * Physician Interpretation * * * * AP PELVIC RADIOGRAPHS FROM 8:27 PM AND 8:44 PM CLINICAL HISTORY: Post-operative / post-procedure assessment COMPARISONS: Earlier the same day FINDINGS: These radiographic series demonstrate uncomplicated appearance of right hip arthroplasty hardware, with expected postoperative soft tissue findings. IMPRESSION: Uncomplicated appearance of right hip arthroplasty. [facility] Ad[facility] Transcribe Date/Time: Oct 07 2024 9:20P Dictated by : DANIELLE FRANKLIN MD This examination was interpreted and the report reviewed and electronically signed by: DANIELLE FRANKLIN MD on Oct 07 2024 9:22PM EST [id number] [facility] XR PELVIS 1V AP * * *Final Report* * * DATE OF EXAM: Oct 07 2024 8:32PM MDX 5239 - XR PELVIS 1V AP / PROCEDURE REASON: Post-operative / post-procedure assessment * * * * Physician Interpretation * * * * AP PELVIC RADIOGRAPHS FROM 8:27 PM AND 8:44 PM CLINICAL HISTORY: Post-operative / post-procedure assessment COMPARISONS: Earlier the same day FINDINGS: These radiographic series demonstrate uncomplicated appearance of right hip arthroplasty hardware, with expected postoperative soft tissue findings. IMPRESSION: Uncomplicated appearance of right hip arthroplasty. Health Plan Advisor: [facility] Transcribe Date/Time: Oct 07 2024 9:20P Dictated by : DANIELLE FRANKLIN MD This examination was interpreted and the report reviewed and electronically signed by: DANIELLE FRANKLIN MD on Oct 07 2024 9:22PM EST [id number] PELVIS 1V AP * * *Final Report* * * DATE OF EXAM: Oct 07 2024 6:35PM MDX 5239 - XR PELVIS 1V AP / PROCEDURE REASON: xtable * * * * Physician Interpretation * * * * Pelvis 2013 2024 6:31 PM HISTORY: 84 years old Clinical information: xtable TECHNIQUE: Images: XR PELVIS 1V AP Comparison: 10/07/2024 5:49 PM RESULT: Findings: Interval placement of remaining components RIGHT total Arthroplasty. The components of the arthroplasty are in good alignment with respect to bones and each other. No fractures or dislocations are seen. IMPRESSION: Findings as discussed under Results portion of report. Health Plan Advisor: [facility] Transcribe Date/Time: Oct 10 2024 2:31P Dictated by : SEEMA CALVILLO DO This examination was interpreted and the report reviewed and electronically signed by: SEEMA CALVILLO DO on Oct 10 2024 2:33PM EST [id number] XR PELVIS 1V AP * * *Final Report* * * DATE OF EXAM: Oct 07 2024 6:02PM MDX 5239 - XR PELVIS 1V AP / PROCEDURE REASON: xtable * * * * Physician Interpretation * * * * Pelvis 10/07/2024 5:49 PM HISTORY: 84 years old Clinical information: xtable TECHNIQUE: Images: XR PELVIS 1V AP Comparison: 10/07/2024 5:14 PM RESULT: Findings: Insertion of intramedullary trudy in addition of the third cerclage wire. No fractures or dislocations are seen. IMPRESSION: Findings as discussed under Results portion of report. Health Plan Advisor: [facility] Transcribe Date/Time: Oct 10 2024 2:44P Dictated by : SEEMA CALVILLO DO This examination was interpreted and the report reviewed and electronically signed by: SEEMA CALVILLO DO on Oct 10 2024 2:46PM EST [id number] [facility] XR PELVIS 1V AP * * *Final Report* * * DATE OF EXAM: Oct 07 2024 5:24PM MDR 5239 - XR PELVIS 1V AP / PROCEDURE REASON: Other * * * * Physician Interpretation * * * * EXAM: XR PELVIS 1V AP PATIENT HISTORY: Intraoperative radiograph of right hip replacement TECHNIQUE: Intraoperative crosstable lateral radiograph of the right hip with 2 images COMPARISON: Radiograph 10/07/2024 at 8:27 PM FINDINGS: The right hip prosthesis is not fully placed, however the acetabular component projects over the right acetabulum. There are cerclage wires of the proximal right femur. Soft tissue gas of the right hip. Vascular calcifications. IMPRESSION: Intraoperative radiograph during right hip replacement. Health Plan Advisor: [facility] Transcribe Date/Time: Oct 08 2024 7:49A Dictated by : CARON MERCEDES MD This examination was interpreted and the report reviewed and electronically signed by: CARON MERECDES MD on Oct 08 2024 7:51AM EST [id number] [facility] XR PELVIS 1V AP * * *Final Report* * * DATE OF EXAM: Oct 07 2024 4:55PM MDR 5239 - XR PELVIS 1V AP / PROCEDURE REASON: right total hip replacement * * * * Physician Interpretation * * * * EXAM: XR PELVIS 1V AP PATIENT HISTORY: right total hip replacement TECHNIQUE: Intraoperative crosstable lateral radiograph of the pelvis. COMPARISON: Radiograph 10/07/2024 at 8:27 PM FINDINGS: Right hip prosthesis not fully placed. The acetabular component projects over the right acetabulum, however the femoral stalk projects beyond the confines of the femur. Soft tissue gas of the right hip. Vascular calcifications. IMPRESSION: Intraoperative radiograph during right hip replacement. Health Plan Advisor: [facility] Transcribe Date/Time: Oct 08 2024 7:47A Dictated by : CARON MERCEDES MD This examination was interpreted and the report reviewed and electronically signed by: CARON MERCEDES MD on Oct 08 2024 7:49AM EST [id number] Normal [facility] HISTORY PHYSICALon HISTORY PHYSICAL Normal [facility] CNPNon 09-21-2024 CNPN Normal [facility] CBC W Auto Differential pane l (Bld)on 09-19-2024 Basophils (Bld) [#/Vol] 10*3/uL Normal <0.11 [facility] Comment on above: Order Comment: Speci men Type: BLOOD SPECIMENOrdering Facility: [facility] Address: [address] [place] [address] Performed By: #### 5 7021-8 ####[facility] MILLWKSLIA [id number] [place] [address] [place] Basophils/100 WBC (Bld) 0.1 % Normal [facility] Comment on above: Order Comment: Speci men Type: BLOOD SPECIMENOrdering Facility: [facility] Address: [address] [place] [address] Performed By: #### 5 7021-8 ####[facility]ENTERLIA [id number] [place] [address] [place] Differential cell count method Nom (Bld) Auto Normal [facility] Comment on above: Order Comment: Speci men Type: BLOOD SPECIMENOrdering Facility: [facility] Address: [address] [place] [address] Performed By: #### 5 7021-8 ####[facility] MILLWNCLIA [id number] [place] [address] [place] Eosinophils (Bld) [#/Vol] 10*3/uL Normal <0.46 [facility] Comment on above: Order Comment: Speci men Type: BLOOD SPECIMENOrdering Facility: [facility] Address: [address] [place] [address] Performed By: #### 5 7021-8 ####[facility] MILLDEACONESS HOSPITALLIA [id number] [place] [address] [place] Eosinophils/100 WBC (Bld) 0.0 % Normal [facility] Comment on above: Order Comment: Speci men Type: BLOOD SPECIMENOrdering Facility: [facility] Address: [address] [place] [address] Performed By: #### 5 7021-8 ####[facility] [id number] [place] [address] [place] Erythrocyte distribution width (RBC) [Ratio] 15.2 % High 11.5-15.0 [facility] Comment on above: Order Comment: Speci men Type: BLOOD SPECIMENOrdering Facility: [facility] Address: [address] [place] [address] Performed By: #### 5 7021-8 ####[facility]ITALNCJ[facility] [id number] [place] [address] [place] Hematocrit (Bld) [Volume fraction] 36.6 % Low 39.0-51.0 [facility] Comment on above: Order Comment: Speci men Type: BLOOD SPECIMENOrdering Facility: [facility] Address: [address] [place] [address] Performed By: #### 5 7021-8 ####[facility] HOSPITALNCA [id number] [place] [address] [place] Hemoglobin (Bld) [Mass/Vol] 11.9 g/dL Low 13.0-17.0 [facility] Comment on above: Order Comment: Speci men Type: BLOOD SPECIMENOrdering Facility: [facility] Address: [address] [place] [address] Performed By: #### 5 7021-8 ####[facility]PITALNCLI [id number] [place] [address] [place] Immature granulocytes (Bld) [#/Vol] 0.11 10*3/uL High <0.10 [facility] Comment on above: Order Comment: Speci men Type: BLOOD SPECIMENOrdering Facility: [facility] Address: [address] [place] [address] Performed By: #### 5 7021-8 ####[facility] HOSPITALJACKIE [id number] [place] [address] [place] Immature granulocytes/100 WBC (Bld) 1.1 % Normal [facility] Comment on above: Order Comment: Speci men Type: BLOOD SPECIMENOrdering Facility: [facility] [facility] Address: [address] [place] [address] Performed By: #### 5 7021-8 ####[facility] [id number] [place] [address] [place] Lymphocytes (Bld) [#/Vol] 1.39 10*3/uL Normal 1.00-4.00 [facility] Comment on above: Order Comment: Speci men Type: BLOOD SPECIMENOrdering Facility: [facility] Address: [address] [place] [address] Performed By: #### 5 7021-8 ####[facility] [id number] [place] [address] [place] Lymphocytes/100 WBC (Bld) 14.5 % Normal [facility] Comment on above: Order Comment: Speci men Type: BLOOD SPECIMENOrdering Facility: [facility] Address: [address] [place] [address] Performed By: #### 5 7021-8 ####[facility] [id number] [place] [address] [place] MCH (RBC) [Entitic mass] 28.0 pg Normal 26.0-34.0 [facility] Comment on above: Order Comment: Speci men Type: BLOOD SPECIMENOrdering Facility: [facility] Address: [address] [place] [address] Performed By: #### 5 7021-8 ####[facility] DANAEstefaniaNCLIA [id number] [place] [address] [place] MCHC (RBC) [Mass/Vol] 32.5 g/dL Normal 30.5-36.0 [facility] Comment on above: Order Comment: Speci men Type: BLOOD SPECIMENOrdering Facility: [facility] Address: [address] [place] [address] Performed By: #### 5 7021-8 ####[facility] [id number] [place] [address] [place] MCV (RBC) [Entitic vol] 86.1 fL Normal 80.0-100.[address] [facility] Comment on above: Order Comment: Speci men Type: BLOOD SPECIMENOrdering Facility: [facility] Address: [address] [place] [address] Performed By: #### 5 7021-8 ####[facility]IE[facility] [id number] [place] [address] [place] Monocytes (Bld) [#/Vol] 0.54 10*3/uL Normal <0.87 [facility] Comment on above: Order Comment: Speci men Type: BLOOD SPECIMENOrdering Facility: [facility] Address: [address] [place] [address] Performed By: #### 5 7021-8 ####[facility] [id number] [address] Monocytes/100 WBC (Bld) 5.6 % Normal [facility] Comment on above: Order Comment: Speci men Type: BLOOD SPECIMENOrdering Facility: [facility] Address: [address] [place] [address] Performed By: #### 5 7021-8 ####[facility]ITAL[facility]CL[facility] [id number] [place] [address] [place] Neutrophils (Bld) [#/Vol] 7.56 10*3/uL High 1.45-7.50 [facility] Comment on above: Order Comment: Speci men Type: BLOOD SPECIMENOrdering Facility: [facility] Address: [address] [place] [address] Performed By: #### 5 7021-8 ####[facility] [id number] [place] [address] [place] Neutrophils/100 WBC (Bld) 78.7 % Normal [facility] Comment on above: Order Comment: Speci men Type: BLOOD SPECIMENOrdering Facility: [facility] Address: [address] [place] [address] Performed By: #### 5 7021-8 ####[facility] [id number] [place] [address] [place] Nucleated RBC (Bld) [#/Vol] 10*3/uL Normal <0.01 [facility] Comment on above: Order Comment: Speci men Type: BLOOD SPECIMENOrdering Facility: [facility] Address: [address] [place] [address] Performed By: #### 5 7021-8 ####[facility] [id number] [place] [address] [place] Nucleated RBC/100 WBC (Bld) [Ratio] 0.0 /100 WBC Normal [facility] Comment on above: Order Comment: Speci men Type: BLOOD SPECIMENOrdering Facility: [facility] Address: [address] [place] [address] Performed By: #### 5 7021-8 ####[facility] [id number] [place] [address] [place] Platelet mean volume (Bld) [Entitic vol] 12.1 fL Normal 9.0-12.7 [facility] Comment on above: Order Comment: Speci men Type: BLOOD SPECIMENOrdering Facility: [facility] Address: [address] [place] [address] Performed By: #### 5 7021-8 ####[facility] ADELFOWNCLIA [id number] [place] [address] [place] Platelets (Bld) [#/Vol] 122 10*3/uL Low 150-400 [facility] Comment on above: Order Comment: Speci men Type: BLOOD SPECIMENOrdering Facility: [facility] Address: [address] [place] [address] Performed By: #### 5 7021-8 ####[facility]ITALNCLIA [id number] [place] [address] [place] RBC (Bld) [#/Vol] 4.25 10*6/uL Normal 4.20-6.00 [facility] Comment on above: Order Comment: Speci men Type: BLOOD SPECIMENOrdering Facility: [facility] Address: [address] [place] [address] Performed By: #### 5 7021-8 ####[facility]ITALNCLIA [id number] [place] [address] [place] WBC (Bld) [#/Vol] 9.61 10*3/uL Normal 3.70-11.00 [facility] Comment on above: Order Comment: Speci men Type: BLOOD SPECIMENOrdering Facility: [facility] Address: [address] [place] [address] Performed By: #### 5 7021-8 ####[facility]ITALNCLIA [id number] [place] [address] [place] CNOVSPon 09-19-2024 CNOVSP Normal [facility] CNOVon 09-16-2024 CNOV Normal [facility] CNOVSPon 2024 CNOVSP Normal [facility] CBC W Auto Differential pane l (Bld)on 09-13-2024 Basophils (Bld) [#/Vol] 10*3/uL Normal <0.11 [facility] Comment on above: Order Comment: Speci men Type: BLOOD SPECIMEN [facility] Address: [address] [place] [address] Performed By: #### 5 8410-2 #### [facility] CLIA [id number] [address] [place] [address] [place] Basophils/100 WBC (Bld) 0.5 % Normal [facility] Comment on above: Order Comment: Speci men Type: BLOOD SPECIMEN [facility] Address: [address] [place] [address] Performed By: #### 5 8410-2 #### [facility] CLIA [id number] [address] OF [facility] Differential cell count method Nom (Bld) Auto Normal [facility] Comment on above: Order Comment: Speci men Type: BLOOD SPECIMEN [facility] Address: [address] [place] [address] Performed By: #### 5 8410-2 #### [facility] CLIA [id number] [address] [place] [address] [place] Eosinophils (Bld) [#/Vol] 0.06 10*3/uL Normal <0.46 [facility] Comment on above: Order Comment: Speci men Type: BLOOD SPECIMEN [facility] Address: [address] [place] [address] Performed By: #### 5 8410-2 #### [facility] CLIA [id number] [address] [place] Eosinophils/100 WBC (Bld) 1.5 % Normal [facility] Comment on above: Order Comment: Speci men Type: BLOOD SPECIMEN [facility] Address: [address] [place] [address] Performed By: #### 5 8410-2 #### [facility] CLIA [id number] [address] [place] [address] [place] Erythrocyte distribution width (RBC) [Ratio] 14.9 % Normal 11.5-15.0 [facility] Comment on above: Order Comment: Speci men Type: BLOOD SPECIMEN [facility] Address: [address] [place] [address] Performed By: #### 5 8410-2 #### [facility] CLIA [id number] [address] [place] [address] [place] Hematocrit (Bld) [Volume fraction] 38.1 % Low 39.0-51.0 [facility] Comment on above: Order Comment: Speci men Type: BLOOD SPECIMEN [facility] Address: [address] [place] [address] Performed By: #### 5 8410-2 #### [facility] CLIA [id number] [address] [place] [address] [place] Hemoglobin (Bld) [Mass/Vol] 12.3 g/dL Low 13.0-17.0 [facility] Comment on above: Order Comment: Speci men Type: BLOOD SPECIMEN [facility] Address: [address] [place] [address] Performed By: #### 5 8410-2 #### [facility] CLIA [id number] [address] [place] Immature granulocytes (Bld) [#/Vol] 10*3/uL Normal <0.10 [facility] Comment on above: Order Comment: Speci men Type: BLOOD SPECIMEN [facility] Address: [address] [place] [address] Performed By: #### 5 8410-2 #### [facility] CLIA [id number] [address] [place] Immature granulocytes/100 WBC (Bld) 0.5 % Normal [facility] Comment on above: Order Comment: Speci men Type: BLOOD SPECIMEN [facility] Address: [address] [place] [address] Performed By: #### 5 8410-2 #### [facility] CLIA [id number] [address] [place] [address] [place] Lymphocytes (Bld) [#/Vol] 1.01 10*3/uL Normal 1.00-4.00 [facility] Comment on above: Order Comment: Speci men Type: BLOOD SPECIMEN [facility] Address: [address] [place] [address] Performed By: #### 5 8410-2 #### [facility] CLIA [id number] [address] Lymphocytes/100 WBC (Bld) 24.7 % Normal [facility] Comment on above: Order Comment: Speci men Type: BLOOD SPECIMEN [facility] Address: [address] [place] [address] Performed By: #### 5 8410-2 #### [facility] CLIA [id number] [address] MCH (RBC) [Entitic mass] 28.3 pg Normal 26.0-34.0 [facility] Comment on above: Order Comment: Speci men Type: BLOOD SPECIMEN [facility] Address: [address] [place] [address] Performed By: #### 5 8410-2 #### [facility] CLIA [id number] [address] MCHC (RBC) [Mass/Vol] 32.3 g/dL Normal 30.5-36.0 [facility] Comment on above: Order Comment: Speci men Type: BLOOD SPECIMEN [facility] Address: [address] [place] [address] Performed By: #### 5 8410-2 #### [facility] CLIA [id number] [address] [place] MCV (RBC) [Entitic vol] 87.8 fL Normal 80.0-100.0 [facility] Comment on above: Order Comment: Speci men Type: BLOOD SPECIMEN [facility] Address: [address] [place] [address] Performed By: #### 5 8410-2 #### [facility] CLIA [id number] [address] [place] [address] [place] Monocytes (Bld) [#/Vol] 0.29 10*3/uL Normal <0.87 [facility] Comment on above: Order Comment: Speci men Type: BLOOD SPECIMEN [facility] Address: [address] [place] [address] Performed By: #### 5 8410-2 #### [facility] CLIA [id number] [address] [place] Monocytes/100 WBC (Bld) 7.1 % Normal [facility] Comment on above: Order Comment: Speci men Type: BLOOD SPECIMEN [facility] Address: [address] [place] [address] Performed By: #### 5 8410-2 #### [facility] CLIA [id number] [address] Neutrophils (Bld) [#/Vol] 2.69 10*3/uL Normal 1.45-7.50 [facility] Comment on above: Order Comment: Speci men Type: BLOOD SPECIMEN [facility] Address: [address] [place] [address] Performed By: #### 5 8410-2 #### [facility] CLIA [id number] [address] Neutrophils/100 WBC (Bld) 65.7 % Normal [facility] Comment on above: Order Comment: Speci men Type: BLOOD SPECIMEN [facility] Address: [address] [place] [address] Performed By: #### 5 8410-2 #### [facility] CLIA [id number] [address] [place] Nucleated RBC (Bld) [#/Vol] 10*3/uL Normal <0.01 [facility] Comment on above: Order Comment: Speci men Type: BLOOD SPECIMEN [facility] Address: [address] [place] [address] Performed By: #### 5 8410-2 #### [facility] CLIA [id number] [address] [place] [address] [place] Nucleated RBC/100 WBC (Bld) [Ratio] 0.0 /100 WBC Normal [facility] Comment on above: Order Comment: Speci men Type: BLOOD SPECIMEN [facility] Address: [address] [place] [address] Performed By: #### 5 8410-2 #### [facility] CLIA [id number] [address] [place] [address] [place] Platelet mean volume (Bld) [Entitic vol] Normal [facility] Comment on above: Order Comment: Speci men Type: BLOOD SPECIMEN [facility] Address: [address] [place] [address] Result Comment: Unab le to Report. Performed By: #### 5 8410-2 #### [facility] CLIA [id number] [address] [place] Platelets (Bld) [#/Vol] 64 10*3/uL Low 150-400 [facility] Comment on above: Order Comment: Speci men Type: BLOOD SPECIMEN [facility] Address: [address] [place] [address] Result Comment: No c lot detected. Performed By: #### 5 8410-2 #### [facility] CLIA [id number] [address] [place] RBC (Bld) [#/Vol] 4.34 10*6/uL Normal 4.20-6.00 [facility] Comment on above: Order Comment: Speci men Type: BLOOD SPECIMEN [facility] Address: [address] [place] [address] Performed By: #### 5 8410-2 #### [facility] CLIA [id number] [address] [place] WBC (Bld) [#/Vol] 4.09 10*3/uL Normal 3.70-11.00 [facility] Comment on above: Order Comment: Speci men Type: BLOOD SPECIMEN [facility] Address: [address] [place] [address] Performed By: #### 5 8410-2 #### [facility] CLIA [id number] [address] [place] [address] [facility] [place] CNPNon 09-13-2024 CNPN [facility] NURSING PROGon 09-13-2024 NURSING PROG HNO ID: [id number] Author: JAKE ANDERSON, RN Service: Nursing Author Type: Registered Nurse Type: Nursing Progress Note Filed: 09/13/2024 08:00 Note Text: 0720 Dr. Alonzo at patient bedside. Robotic total hip cancelled due to patient low platelets (platelets 64 on 09/13/24). Patient instructed to contact Dr. Machado with Hematology. Patient and family understand all information given and have no further questions. 0750 Patient taken out of pre op in wheelchair by this RN. [facility] TYPE + SCREENon 09-13-2024 ABO O [facility] Comment on above: Order Comment: Speci men Type: BLOOD SPECIMEN [facility] Address: [address] [place] [address] Performed By: #### 5 8410-2 #### [facility] CLIA [id number] [address] [place] [address] [place] Rh Nom (Bld) Positive [facility] Comment on above: Order Comment: Speci men Type: BLOOD SPECIMEN [facility] Address: [address] [place] [address] Performed By: #### 5 8410-2 #### [facility] CLIA [id number] [address] [place] [address] [place] TYPE AND SCREEN EXPIRATION 09/16/2024 23:59 [facility] Comment on above: Order Comment: Speci men Type: BLOOD SPECIMEN [facility] Address: [address] [place] [address] Performed By: #### 5 8410-2 #### [facility] CLIA [id number] [address] [place] [address] [facility]Non [facility]2024 [facility] ----- ANGIE DUTTON ([id number]) 1940 M [facility] Date Time Provider Department 08/31/24 RYAN ALONZO During your visit today, we recorded the following information about you: Ed Avendano PSS 08/31/2024 8:46 AM Signed TOTAL JOINT COMPLETE CARE PROGRAM PRE-OPERATIVE TEACHING Service Date: 08/31/2024 Service Time: 8:44 AM Date of : 1940 Gender: male Date of Surgery: 09/13/24 Procedure: Right Total Hip Replacement Complete Care Program was discussed with the patient: Lumite Injector Identification: 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 Pt has walker, bath bench. May have other things to borrow. Discussed with patient importance of attending joint education class and provided date and times of class: YES Patient declined. Patient received Joint Education Binder: Yes Plans discharge home with [facility]. SIGNATURE: JENNIFER Luther PATIENT NAME: Angie Dutton DATE: August 31, 2024 TIME: 8:44 AM Allergies As of Date: 08/31/2024 Noted Allergy Reaction SULFA (SULFONAMIDE ANTIBIOTICS) 07/22/2004 11 - Vomiting Date Reviewed: 08/30/2024 Reviewed by: Anne Alexander, PROTOZOOLOGIST.ASSISTANT PORTFOLIO MANAGER - Fully Assessed Reason for Visit: Pre-Op Teaching [134] Prescriptions as of 08/31/2024 - mupirocin (BACTROBAN) 2 % ointment Apply 0.5 inch with cotton swab (Q-tip) to each nostril in the morning and evening for 5 days prior to and including day of surgery. - apixaban (ELIQUIS) 5 mg tab(s) Take 1 tablet by mouth two times a day. - ferrous sulfate 325 mg (65 mg iron) tablet Take 1 tablet by mouth once daily. - pantoprazole DR (PROTONIX) 20 mg tablet Take 2 tablets by mouth once daily. - gabapentin (NEURONTIN) 400 mg capsule Take 1 capsule by mouth two times a day for 180 days. - metoprolol succinate ER (TOPROL XL) 50 mg 24 hr tablet Take 1 tablet by mouth every afternoon. - metFORMIN ER (GLUMETZA) 500 mg 24 hr tablet Take 1 tablet by mouth daily with breakfast. - cyclobenzaprine (FLEXERIL) 5 mg tablet Take 1 tablet by mouth two times a day as needed. - ezetimibe (ZETIA) 10 mg tablet Take 1 tablet by mouth once daily. - isosorbide mononitrate ER (IMDUR) 30 mg 24 hr tablet Take 0.5 tablets by mouth once daily. - simvastatin (ZOCOR) 40 mg tablet Take 1 tablet by mouth daily at bedtime. - tamsulosin (FLOMAX) 0.4 mg Take 1 capsule by mouth daily at bedtime. - traZODone (DESYREL) 50 mg tablet Take 1 tablet by mouth daily at bedtime. - nitroglycerin sublingual (NITROQUICK) 0.4 mg SL tablet Dissolve 1 tablet under the tongue as directed. DISSOLVE ONE(1) TABLET UNDER THE TOUNGUE NEEDED FOR CHEST PAIN,EVERY 5 MIN X3 - acetaminophen 650 mg CR tablet Take 1,300 mg by mouth every 8 hours as needed. 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.2] 04/14/2005 Coronary atherosclerosis [I25.10] 04/14/2005 INSOMNIA NOS [G47.00] 05/29/2006 Esophageal reflux [K21.9] 05/29/2006 IMPAIRED FASTING GLUCOSE [R73.01] 04/05/2007 ALLERGIC RHINITIS NOS [J30.9] 07/06/2007 Anemia, unspecified [D64.9] 05/26/2008 09/26/2022 Thrombocytopenia, unspecified (HCC) [D69.6] 05/26/2008 09/26/2022 Special screening for malignant neoplasms, colo*07/13/2014 07/13/2014 Elevated serum creatinine [R79.89] 10/30/2016 Serum calcium elevated [E83.52] 10/30/2016 Polymyalgia rheumatica (HCC) [M35.3] 09/01/2019 Atherosclerosis of [place] coronary artery of na*09/23/2018 TIA (transient ischemic attack) [G45.9] 09/01/2019 Chronic right hip pain [M25.551, G89.29] 11/01/2019 Pain of right calf [M79.661] 11/01/2019 Stage 3a chronic kidney disease (HCC) [N18.31] 01/30/2020 Iron deficiency anemia [D50.9] 10/26/2020 Encounter for support and coordination of trans*06/26/2021 08/30/2021 Chronic ITP (idiopathic thrombocytopenia) (HCC)*07/15/2021 Right groin pain [R10.31] 09/02/2021 Right hip pain [M25.551] 02/03/2022 09/26/2022 Hypertensive kidney disease with stage 3a chron*09/24/2022 Bilateral carotid artery stenosis [I65.23] 09/26/2022 Paroxysmal A-fib (HCC) [I48.0] 04/15/2024 RBBB [I45.10] 08/30/2024 Encounter Status:Closed by ED AVENDANO [facility]/31/24 [facility] Basic metabolic 2000 panelon 08-30-2024 Anion gap [Moles/Vol] 10 mmol/L Normal 8-15 [facility] Comment on above: Order Comment: Speci men Type: BLOOD SPECIMENOrdering Facility: [facility] Address: [address] [place] [address] Performed By: #### 2 4321-2 ####[facility] [id number] [place] [address] [place] Calcium [Mass/Vol] 9.8 mg/dL Normal 8.5-10.2 [facility] Comment on above: Order Comment: Speci men Type: BLOOD SPECIMENOrdering Facility: [facility] Address: [address] [place] [address] Performed By: #### 2 4321-2 ####[facility]SL[facility] [id number] [place] [address] [place] Chloride [Moles/Vol] 104 mmol/L Normal 98-[address] [facility] Comment on above: Order Comment: Speci men Type: BLOOD SPECIMENOrdering Facility: [facility] Address: [address] [place] [address] Performed By: #### 2 4321-2 ####[facility] [id number] [place] [address] [place] CO2 [Moles/Vol] 27 mmol/L Normal 22-30 [facility] Comment on above: Order Comment: Speci men Type: BLOOD SPECIMENOrdering Facility: [facility] Address: [address] [place] [address] Performed By: #### 2 4321-2 ####[facility] [id number] [place] [address] [place] Creatinine [Mass/Vol] 1.32 mg/dL High 0.73-1.22 [facility] Comment on above: Order Comment: Speci men Type: BLOOD SPECIMENOrdering Facility: [facility] Address: [address] [place] [address] Performed By: #### 2 4321-2 ####[facility] [id number] [place] [address] [place] Creatinine and Glomerular filtration rate.predicted panel (S/P/Bld) 53 mL/min/1.73m??? Low >=60 [facility] Comment on above: Order Comment: Speci men Type: BLOOD SPECIMENOrdering Facility: [facility] Address: [address] [id number] Result Comment: Lynette mated Glomerular Filtration Rate (eGFR) is calculated using the 2020 CKD-EPI creatinine equation. This equation utilizes serum creatinine, sex, and age as parameters. The creatinine assay has traceable calibration to isotope dilution-mass spectrometry. Refer to KDIGO guidelines for clinical interpretation. In patients with unstable renal function, e.g. those with acute kidney injury, the eGFR may not accurately reflect actual GFR. Performed By: #### 2 4321-2 ####[facility] [id number] [place] [address] [place] Glucose [Mass/Vol] 102 mg/dL High 74-99 [facility] Comment on above: Order Comment: Briana lobo Type: BLOOD SPECIMENOrdering Facility: [facility] Address: [address] [place] [address] Result Comment: The [place] [employer] (ADA) provides guidance for cutoff values for fasting glucose and random glucose. The ADA defines fasting as no caloric intake for at least 8 hours. Fasting plasma glucose results between 100 to 125 mg/dL indicate increased risk for diabetes (prediabetes).Fasting plasma glucose results greater than or equal to 126 mg/dL meet the criteria for diagnosis of diabetes. In the absence of unequivocal hyperglycemia, results should be confirmed by repeat testing. In a patient with classic symptoms of hyperglycemia or hyperglycemic crisis, random plasma glucose results greater than or equal to 200 mg/dL meet the criteria for diagnosis of diabetes.Reference: Standards of Medical Care in Diabetes 2016, [place] [employer]. Diabetes Care. 2016.39(Suppl 1). Performed By: #### 2 4321-2 ####[facility] [id number] [place] [address] [place] Potassium [Moles/Vol] 4.7 mmol/L Normal 3.7-5.1 [facility] Comment on above: Order Comment: Briana [facility] Type: BLOOD SPECIMENOrdering Facility: [facility] Address: [address] [id number] Performed By: #### 2 4321-2 ####[facility] MILLWNCLIA [id number] [place] [address] [place] Sodium [Moles/Vol] 141 mmol/L Normal 136-144 [facility] Comment on above: Order Comment: Speci men Type: BLOOD SPECIMENOrdering Facility: [facility] Address: [address] [place] [address] Performed By: #### 2 4321-2 ####[facility]ITALNCLIA [id number] [place] [address] [place] Urea nitrogen [Mass/Vol] 13 mg/dL Normal 9-24 [facility] Comment on above: Order Comment: Speci men Type: BLOOD SPECIMENOrdering Facility: [facility] Address: [address] [place] [address] Performed By: #### 2 4321-2 ####[facility]OSPITALGRACIEELVISA [id number] [place] [address] [place] CBC W Auto Differential pane l (Bld)on 08-30-2024 Basophils (Bld) [#/Vol] 0.05 10*3/uL Normal <0.11 [facility] Comment on above: Order Comment: Speci men Type: BLOOD SPECIMENOrdering Facility: [facility] Address: [address] [place] [address] Performed By: #### 5 7021-8 ####[facility]ITALNCLIA [id number] [place] [address] [place] Basophils/100 WBC (Bld) 0.9 % Normal [facility] Comment on above: Order Comment: Speci men Type: BLOOD SPECIMENOrdering Facility: [facility] Address: [address] [place] [address] Performed By: #### 5 7021-8 ####[facility] HOSPITALGRACIELIA [id number] [address] [place] [address] [place] Differential cell count method Nom (Bld) Auto Normal [facility] Comment on above: Order Comment: Speci men Type: BLOOD SPECIMENOrdering Facility: [facility] Address: [address] [place] [address] Performed By: #### 5 7021-8 ####[facility]PITALNCJORD[facility] [id number] [place] [address] [place] Eosinophils (Bld) [#/Vol] 0.07 10*3/uL Normal <0.46 [facility] Comment on above: Order Comment: Speci men Type: BLOOD SPECIMENOrdering Facility: [facility] Address: [address] [place] [address] Performed By: #### 5 7021-8 ####[facility] [id number] [place] [address] [place] Eosinophils/100 WBC (Bld) 1.3 % Normal [facility] Comment on above: Order Comment: Speci men Type: BLOOD SPECIMENOrdering Facility: [facility] Address: [address] [place] [address] Performed By: #### 5 7021-8 ####[facility]ITALNCJORD[facility] [id number] [place] [address] [place] Erythrocyte distribution width (RBC) [Ratio] 15.5 % High 11.5-15.0 [facility] Comment on above: Order Comment: Speci men Type: BLOOD SPECIMENOrdering Facility: [facility] Address: [address] [place] [address] Performed By: #### 5 7021-8 ####[facility] [id number] [place] [address] [place] Hematocrit (Bld) [Volume fraction] 40.0 % Normal 39.0-51.0 [facility] Comment on above: Order Comment: Speci men Type: BLOOD SPECIMENOrdering Facility: [facility] Address: [address] [place] [address] Performed By: #### 5 7021-8 ####[facility] HOSPITALJACKIE [id number] [place] [address] [place] Hemoglobin (Bld) [Mass/Vol] 12.7 g/dL Low 13.0-17.0 [facility] Comment on above: Order Comment: Speci men Type: BLOOD SPECIMENOrdering Facility: [facility] Address: [address] [place] [address] Performed By: #### 5 7021-8 ####[facility] [id number] [place] [address] [place] Immature granulocytes (Bld) [#/Vol] 0.07 10*3/uL Normal <0.10 [facility] Comment on above: Order Comment: Speci men Type: BLOOD SPECIMENOrdering Facility: [facility] Address: [address] [place] [address] Performed By: #### 5 7021-8 ####[facility]ITALA [id number] [place] [address] [place] Immature granulocytes/100 WBC (Bld) 1.3 % Normal [facility] Comment on above: Order Comment: Speci men Type: BLOOD SPECIMENOrdering Facility: [facility] Address: [address] [place] [address] Performed By: #### 5 7021-8 ####[facility] HOSPITALNCLIA [id number] [place] [address] [place] Lymphocytes (Bld) [#/Vol] 1.35 10*3/uL Normal 1.00-4.00 [facility] Comment on above: Order Comment: Speci men Type: BLOOD SPECIMENOrdering Facility: [facility] Address: [address] [place] [address] Performed By: #### 5 7021-8 ####[facility] DANADEERFIELDNCLIA [id number] [place] [address] [place] Lymphocytes/100 WBC (Bld) 24.3 % Normal [facility] Comment on above: Order Comment: Speci men Type: BLOOD SPECIMENOrdering Facility: [facility] Address: [address] [place] [address] Performed By: #### 5 7021-8 ####[facility] HOSPITALJACKIE [id number] [place] [address] [place] MCH (RBC) [Entitic mass] 27.5 pg Normal 26.0-34.0 [facility] Comment on above: Order Comment: Speci men Type: BLOOD SPECIMENOrdering Facility: [facility] Address: [address] [place] [address] Performed By: #### 5 7021-8 ####[facility]OSPITALGRACIEJORDAN VALLEY [facility] [id number] [place] [address] [place] MCHC (RBC) [Mass/Vol] 31.8 g/dL Normal 30.5-36.0 [facility] Comment on above: Order Comment: Speci men Type: BLOOD SPECIMENOrdering Facility: [facility] Address: [address] [place] [address] Performed By: #### 5 7021-8 ####[facility]OSPITALGRACIELIRojas [id number] [place] [address] [place] MCV (RBC) [Entitic vol] 86.8 fL Normal 80.0-100.0 [facility] Comment on above: Order Comment: Speci men Type: BLOOD SPECIMENOrdering Facility: [facility] Address: [address] [place] [address] Performed By: #### 5 7021-8 ####[facility] HOSPITALNCLI [id number] [place] [address] [place] Monocytes (Bld) [#/Vol] 0.27 10*3/uL Normal <0.87 [facility] Comment on above: Order Comment: Speci men Type: BLOOD SPECIMENOrdering Facility: [facility] Address: [address] [place] [address] Performed By: #### 5 7021-8 ####[facility]OS[facility]ITALA [id number] [place] [address] [place] Monocytes/100 WBC (Bld) 4.9 % Normal [facility] Comment on above: Order Comment: Speci men Type: BLOOD SPECIMENOrdering Facility: [facility] Address: [address] [place] [address] Performed By: #### 5 7021-8 ####[facility] [id number] [place] [address] [place] Neutrophils (Bld) [#/Vol] 3.74 10*3/uL Normal 1.45-7.50 [facility] Comment on above: Order Comment: Speci men Type: BLOOD SPECIMENOrdering Facility: [facility] Address: [address] [place] [address] Performed By: #### 5 7021-8 ####[facility]ITALA [id number] [place] [address] [place] Neutrophils/100 WBC (Bld) 67.3 % Normal [facility] Comment on above: Order Comment: Speci men Type: BLOOD SPECIMENOrdering Facility: [facility] Address: [address] [place] [address] Performed By: #### 5 7021-8 ####[facility]ITALA [id number] [place] [address] [place] Nucleated RBC (Bld) [#/Vol] 10*3/uL Normal <0.01 [facility] Comment on above: Order Comment: Speci men Type: BLOOD SPECIMENOrdering Facility: [facility] Address: [address] [place] [address] Performed By: #### 5 7021-8 ####[facility] MADELEINENCBAKARI [id number] [place] [address] [place] Nucleated RBC/100 WBC (Bld) [Ratio] 0.0 /100 WBC Normal [facility] Comment on above: Order Comment: Speci men Type: BLOOD SPECIMENOrdering Facility: [facility] Address: [address] [place] [address] Performed By: #### 5 7021-8 ####[facility] HOSPITALNCBAKARI [id number] [place] [address] [place] Platelet mean volume (Bld) [Entitic vol] 12.3 fL Normal 9.0-12.7 [facility] Comment on above: Order Comment: Speci men Type: BLOOD SPECIMENOrdering Facility: [facility] Address: [address] [place] [address] Performed By: #### 5 7021-8 ####[facility] HOSPITALDIGNAA [id number] [place] [address] [place] Platelets (Bld) [#/Vol] 88 10*3/uL Low 150-400 [facility] Comment on above: Order Comment: Speci men Type: BLOOD SPECIMENOrdering Facility: [facility] Address: [address] [place] [address] Result Comment: No c lot detected. Performed By: #### 5 7021-8 ####[facility] MED[facility] CENTERLIA [id number] [place] [address] [place] RBC (Bld) [#/Vol] 4.61 10*6/uL Normal 4.20-6.00 [facility] Comment on above: Order Comment: Speci men Type: BLOOD SPECIMENOrdering Facility: [facility] Address: [address] [place] [address] Performed By: #### 5 7021-8 ####[facility]OSPITALNCLIA [id number] [place] [address] [place] WBC (Bld) [#/Vol] 5.55 10*3/uL Normal 3.70-11.00 [facility] Comment on above: Order Comment: Briana lobo Type: BLOOD SPECIMENOrdering Facility: [facility] Address: [address] [place] [address] Performed By: #### 5 7021-8 ####[facility]ITALNCJORD[facility] [id number] [place] [address] [place] NEL45sa 08-30-2024 ECG01 Normal [facility] HISTORY PHYSICALon HISTORY PHYSICAL Normal [facility] HbA1c (Bld)on 08-30-2024 Average glucose Estimated from glycated hemoglobin (Bld) [Mass/Vol] 117 mg/dL Normal [facility] Comment on above: Order Comment: Briana lobo Type: BLOOD SPECIMENOrdering Facility: [facility] Address: [address] [place] [address] Result Comment: eAG: (Estimated average glucose) is a calculated value from HgbA1c and is outside sales account representative of the average blood glucose level in the last 2-3 month period. Performed By: #### 5 5454-3 ####[facility] LABCLIA [id number] [place] [address] [place] HbA1c (Bld) [Mass fraction] 5.7 % High 4.3-5.6 [facility] Comment on above: Order Comment: Briana lobo Type: BLOOD SPECIMENOrdering Facility: [facility] Address: [address] [place] [address] Result Comment: [place] Diabetes Association guidelines indicate that patients with HgbA1c in the range 5.7-6.4% are at increased risk for development of diabetes, and intervention by lifestyle modification may be beneficial. HgbA1c greater or equal to 6.5% is considered diagnostic of diabetes. Performed By: #### 5 5454-3 ####[facility] LABCLIA [id number] [address] [place] [id number] [place] CNPTOUTREACHon 08-25-2024 CNPTOUTREACH Normal [facility] CT HIP WO IVCON RTon 024 CT HIP WO IVCON RT * * *Final Report* * * DATE OF EXAM: Aug 04 2024 2:52PM [facility] [address] - CT HIP WO IVCON RT / PROCEDURE REASON: M16.11-Primary osteoarthritis of right hip * * * * Physician Interpretation * * * * EXAMINATION: CT HIP WO IVCON RT CLINICAL HISTORY: 83 years old Male with Primary osteoarthritis of right hip . Preoperative planning . TECHNIQUE: CT RIGHT hip without contrast Jeir protocol, 0.62 mm axial slices pelvis-hips, 2.5 mm axial slices both knees CT Radiation dose: Integrated Dose-length product (DLP) for this visit = 766 mGy*cm. CT Dose Reduction Employed: Automated exposure control(AEC) and iterative recon COMPARISON: Radiographs 02/26/2024 RESULT: Advanced bilateral hip osteoarthritis, left greater than right. Right hip joint effusion. Bilateral knees: Bilateral osteoarthritis. Small left joint effusion No acute abnormality. Production Line Technician: No significant finding. IMPRESSION: Limited CT images for the purposes of presurgical planning. Health Plan Advisor: SERAFIN Transcribe Date/Time: Aug 04 2024 4:03P Dictated by : MARYBEL LINDA MD This examination was interpreted and the report reviewed and electronically signed by: MARYBEL LINDA MD on Aug 04 2024 4:04PM EST [id number] [facility] CT Hip - right WO contraston 08-04-2024 IMPRESSION: Limited CT images for the purposes of presurgical planning. Health Plan Advisor: SERAFIN Transcribe Date/Time: Aug 04 2024 4:03P Dictated by : MARYBEL LINDA MD This examination was interpreted and the report reviewed and electronically signed by: MARYBEL LINDA MD on Aug 04 2024 4:04PM EST [facility] * * *Final Report* * * DATE OF EXAM: Aug 04 2024 2:52PM [facility] [address] - CT HIP WO IVCON RT / PROCEDURE REASON: M16.11-Primary osteoarthritis of right hip * * * * Physician Interpretation * * * * EXAMINATION: CT HIP WO IVCON RT CLINICAL HISTORY: 83 years old Male with Primary osteoarthritis of right hip . Preoperative planning . TECHNIQUE: CT RIGHT hip without contrast Jeri protocol, 0.62 mm axial slices pelvis-hips, 2.5 mm axial slices both knees CT Radiation dose: Integrated Dose-length product (DLP) for this visit = 766 mGy*cm. CT Dose Reduction Employed: Automated exposure control(AEC) and iterative recon COMPARISON: Radiographs 02/26/2024 RESULT: Advanced bilateral hip osteoarthritis, left greater than right. Right hip joint effusion. Bilateral knees: Bilateral osteoarthritis. Small left joint effusion No acute abnormality. Production Line Technician: No significant finding. [facility]24 * * *Final Report* * * DATE OF EXAM: Aug 04 2024 2:52PM [facility] [address] - CT HIP WO IVCON RT / PROCEDURE REASON: M16.11-Primary osteoarthritis of right hip * * * * Physician Interpretation * * * * EXAMINATION: CT HIP WO IVCON RT CLINICAL HISTORY: 83 years old Male with Primary osteoarthritis of right hip . Preoperative planning . TECHNIQUE: CT RIGHT hip without contrast Jeri protocol, 0.62 mm axial slices pelvis-hips, 2.5 mm axial slices both knees CT Radiation dose: Integrated Dose-length product (DLP) for this visit = 766 mGy*cm. CT Dose Reduction Employed: Automated exposure control(AEC) and iterative recon COMPARISON: Radiographs 02/26/2024 RESULT: Advanced bilateral hip osteoarthritis, left greater than right. Right hip joint effusion. Bilateral knees: Bilateral osteoarthritis. Small left joint effusion No acute abnormality. Production Line Technician: No significant finding. IMPRESSION IMPRESSION: Limited CT images for the purposes of presurgical planning. Health Plan Advisor: PSCB Transcribe Date/Time: Aug 04 2024 4:03P Dictated by : MARYBEL LINDA MD This examination was interpreted and the report reviewed and electronically signed by: MARYBEL LINDA MD on Aug 04 2024 4:04PM EST [facility] Radiology Study observation (narrative) [facility] CT Hip - right WO contrastOr dered By: Ccf Provider on 08-04-2024 [facility] CNOVon 08-02-2024 CNOV Normal [facility] CNPNon 08-02-2024 CNPN Normal [facility] CNPNon 07-28-2024 CNPN Normal [facility] CNOVon 07-13-2024 CNOV Normal [facility] CNPTOUTREACHon 07-07-2024 CNPTOUTREACH Normal [facility] CNPTOUTREACHon 06-09-2024 CNPTOUTREACH Normal [facility] CNOVon 05-26-2024 CNOV Normal [facility] CBC W Auto Differential pane l (Bld)on 05-23-2024 Basophils (Bld) [#/Vol] 0.03 10*3/uL Normal <0.11 [facility] Comment on above: Order Comment: Speci men Type: BLOOD SPECIMENOrdering Facility: [facility] Address: [address] [place] [address] Performed By: #### 1 4196-0, 65132-0 ####[facility] [id number] [place] [address] [place] Basophils/100 WBC (Bld) 0.6 % Normal [facility] Comment on above: Order Comment: Speci men Type: BLOOD SPECIMENOrdering Facility: [facility] Address: [address] [place] [address] Performed By: #### 1 4196-0, 90609-4 ####[facility] [id number] [place] [address] [place] Differential cell count method Nom (Bld) Auto Normal [facility] Comment on above: Order Comment: Speci men Type: BLOOD SPECIMENOrdering Facility: [facility] Address: [address] [place] [address] Performed By: #### 1 4196-0, 99043-1 ####[facility] [id number] [place] [address] [place] Eosinophils (Bld) [#/Vol] 0.03 10*3/uL Normal <0.46 [facility] Comment on above: Order Comment: Speci men Type: BLOOD SPECIMENOrdering Facility: [facility] Address: [address] [place] [address] Performed By: #### 1 4196-0, 71397-7 ####[facility]OSPITALJACKIE [id number] [place] [address] [place] Eosinophils/100 WBC (Bld) 0.6 % Normal [facility] Comment on above: Order Comment: Speci men Type: BLOOD SPECIMENOrdering Facility: [facility] Address: [address] [place] [address] Performed By: #### 1 4196-0, 72765-2 ####[facility] HOSPITALNCBAKARI [id number] [place] [address] [place] Erythrocyte distribution width (RBC) [Ratio] 18.9 % High 11.5-15.0 [facility] Comment on above: Order Comment: Speci men Type: BLOOD SPECIMENOrdering Facility: [facility] Address: [address] [place] [address] Performed By: #### 1 4196-0, 97314-0 ####[facility] CENTERELVISA [id number] [place] [address] [place] Hematocrit (Bld) [Volume fraction] 36.7 % Low 39.0-51.0 [facility] Comment on above: Order Comment: Speci men Type: BLOOD SPECIMENOrdering Facility: [facility] Address: [address] [place] [address] Performed By: #### 1 4196-0, 64583-6 ####[facility]OSPITALNCLIA [id number] [place] [address] [place] Hemoglobin (Bld) [Mass/Vol] 11.4 g/dL Low 13.0-17.0 [facility] Comment on above: Order Comment: Speci men Type: BLOOD SPECIMENOrdering Facility: [facility] Address: [address] [place] [address] Performed By: #### 1 4196-0, 48313-6 ####[facility]ITALNCJORD[facility] [id number] [place] [address] [place] Immature granulocytes (Bld) [#/Vol] 10*3/uL Normal <0.10 [facility] Comment on above: Order Comment: Speci men Type: BLOOD SPECIMENOrdering Facility: [facility] Address: [address] [place] [address] Performed By: #### 1 4196-0, 43241-0 ####[facility] [id number] [place] [address] [place] Immature granulocytes/100 WBC (Bld) 0.4 % Normal [facility] Comment on above: Order Comment: Speci men Type: BLOOD SPECIMENOrdering Facility: [facility] Address: [address] [place] [address] Performed By: #### 1 4196-0, 25507-0 ####[facility]ITALNCJORD[facility] [id number] [place] [address] [place] Lymphocytes (Bld) [#/Vol] 1.45 10*3/uL Normal 1.00-4.00 [facility] Comment on above: Order Comment: Speci men Type: BLOOD SPECIMENOrdering Facility: [facility] Address: [address] [place] [address] Performed By: #### 1 4196-0, 60112-4 ####[facility] [id number] [place] [address] [place] Lymphocytes/100 WBC (Bld) 30.6 % Normal [facility] Comment on above: Order Comment: Speci men Type: BLOOD SPECIMENOrdering Facility: [facility] Address: [address] [place] [address] Performed By: #### 1 4196-0, 50663-9 ####[facility] DANADEERFIELDGRACIEELVISRojas [id number] [place] [address] [place] MCH (RBC) [Entitic mass] 25.6 pg Low 26.0-34.0 [facility] Comment on above: Order Comment: Speci men Type: BLOOD SPECIMENOrdering Facility: [facility] Address: [address] [place] [address] Performed By: #### 1 4196-0, 00764-3 ####[facility]OSPITALJACKIE [id number] [place] [address] [place] MCHC (RBC) [Mass/Vol] 31.1 g/dL Normal 30.5-36.0 [facility] Comment on above: Order Comment: Speci men Type: BLOOD SPECIMENOrdering Facility: [facility] Address: [address] [place] [address] Performed By: #### 1 4196-0, 55066-0 ####[facility]ITALA [id number] [place] [address] [place] MCV (RBC) [Entitic vol] 82.3 fL Normal 80.0-100.0 [facility] Comment on above: Order Comment: Speci men Type: BLOOD SPECIMENOrdering Facility: [facility] Address: [address] [place] [address] Performed By: #### 1 4196-0, 45083-0 ####[facility]OSPITALNCLIA [id number] [place] [address] [place] Monocytes (Bld) [#/Vol] 0.27 10*3/uL Normal <0.87 [facility] Comment on above: Order Comment: Speci men Type: BLOOD SPECIMENOrdering Facility: [facility] Address: [address] [place] [address] Performed By: #### 1 4196-0, 53881-0 ####[facility] SUSHANTA [id number] [place] [address] [place] Monocytes/100 WBC (Bld) 5.7 % Normal [facility] Comment on above: Order Comment: Speci men Type: BLOOD SPECIMENOrdering Facility: [facility] Address: [address] [place] [address] Performed By: #### 1 4196-0, 88957-2 ####[facility] HOSPITALDIGNAA [id number] [place] [address] [place] Neutrophils (Bld) [#/Vol] 2.94 10*3/uL Normal 1.45-7.50 [facility] Comment on above: Order Comment: Speci men Type: BLOOD SPECIMENOrdering Facility: [facility] Address: [address] [place] [address] Performed By: #### 1 4196-0, 81640-1 ####[facility]A [id number] [place] [address] [place] Neutrophils/100 WBC (Bld) 62.1 % Normal [facility] Comment on above: Order Comment: Speci men Type: BLOOD SPECIMENOrdering Facility: [facility] Address: [address] [place] [address] Performed By: #### 1 4196-0, 11669-0 ####[facility] HOSPITALGRACIELIA [id number] [place] [address] [place] Nucleated RBC (Bld) [#/Vol] 10*3/uL Normal <0.01 [facility] Comment on above: Order Comment: Speci men Type: BLOOD SPECIMENOrdering Facility: [facility] Address: [address] [place] [address] Performed By: #### 1 4196-0, 26048-2 ####[facility] MILLWNCLIA [id number] [place] [address] [place] Nucleated RBC/100 WBC (Bld) [Ratio] 0.0 /100 WBC Normal [facility] [facility] Comment on above: Order Comment: Speci men Type: BLOOD SPECIMENOrdering Facility: [facility] Address: [address] [place] [address] Performed By: #### 1 4196-0, 00252-9 ####[facility]ITALNCLIA [id number] [place] [address] [place] Platelet mean volume (Bld) [Entitic vol] 11.8 fL Normal 9.0-12.7 [facility] Comment on above: Order Comment: Speci men Type: BLOOD SPECIMENOrdering Facility: [facility] Address: [address] [place] [address] Performed By: #### 1 4196-0, 81961-1 ####[facility]ITALNCLIA [id number] [place] [address] [place] Platelets (Bld) [#/Vol] 101 10*3/uL Low 150-400 [facility] Comment on above: Order Comment: Speci men Type: BLOOD SPECIMENOrdering Facility: [facility] Address: [address] [place] [address] Performed By: #### 1 4196-0, 88748-7 ####[facility]ITALWNCLIA [id number] [place] [address] [place] RBC (Bld) [#/Vol] 4.46 10*6/uL Normal 4.20-6.00 [facility] Comment on above: Order Comment: Speci men Type: BLOOD SPECIMENOrdering Facility: [facility] Address: [address] [place] [address] Performed By: #### 1 4196-0, 66193-6 ####[facility]ITALNCLIA [id number] [place] [address] [place] WBC (Bld) [#/Vol] 4.74 10*3/uL Normal 3.70-11.00 [facility] Comment on above: Order Comment: Speci men Type: BLOOD SPECIMENOrdering Facility: [facility] Address: [address] [place] [address] Performed By: #### 1 4196-0, 39483-5 ####[facility] [id number] [place] [address] [place] CNOVSPon 05-23-2024 CNOVSP Normal [facility] Ferritin SerPl-mCncon 2023 Ferritin [Mass/Vol] 35.5 ng/mL Normal 30.3-565.7 [facility] Comment on above: Order Comment: Speci men Type: BLOOD SPECIMENOrdering Facility: [facility] Address: [address] [place] [address] Performed By: #### 2 276-4, 11004-2, 4542-7 ####[facility] LABCLIA [id number] [place] [address] [place] Folate SerPl-mCncon 05-23-20 Folate [Mass/Vol] 8.5 ng/mL Normal >4.7 [facility] Comment on above: Order Comment: Speci men Type: BLOOD SPECIMENOrdering Facility: [facility] Address: [address] [place] [address] Performed By: #### 2 132-9, 2284-8 ####[facility] LABCLIA [id number] [place] [address] [place] Haptoglob SerPl-mCncon 05-23 Haptoglobin [Mass/Vol] 126 mg/dL Normal 31-238 [facility] Comment on above: Order Comment: Speci men Type: BLOOD SPECIMENOrdering Facility: [facility] Address: [address] [place] [address] Performed By: #### 2 276-4, 80420-3, 4542-7 ####[facility] LABIA [id number] [place] [address] [place] Iron and Iron binding capaci ty panelon 05-23-2024 Iron [Mass/Vol] 265 ug/dL High 41-186 [facility] Comment on above: Order Comment: Speci men Type: BLOOD SPECIMENOrdering Facility: [facility] Address: [address] [place] [address] Performed By: #### 2 276-4, 93783-5, 4542-7 ####[facility] [id number] [place] [address] [place] Iron binding capacity [Mass/Vol] 382 ug/dL Normal 232-386 [facility] Comment on above: Order Comment: Speci men Type: BLOOD SPECIMENOrdering Facility: [facility] Address: [address] [place] [address] Performed By: #### 2 276-4, 80970-9, 4542-7 ####[facility] [id number] [place] [address] [place] Iron/TIBC [Molar ratio] 69.4 % High 15.0-57.0 [facility] Comment on above: Order Comment: Speci men Type: BLOOD SPECIMENOrdering Facility: [facility] Address: [address] [place] [address] Performed By: #### 2 276-4, 51667-2, 4542-7 ####[facility] LABIA [id number] [place] [address] [place] Retics #on 05-23-2024 Reticulocytes (Bld) [#/Vol] 0.15393 10*3/uL Normal 0.018-0.100 [facility] Comment on above: Order Comment: Speci men Type: BLOOD SPECIMENOrdering Facility: [facility] Address: [address] [place], [place] [address] Performed By: #### 1 4196-0, 78672-8 ####[facility] HOSPITALRojas [id number] [place] [address] [place] Reticulocytes (Bld) [#/Vol]o n 05-23-2024 Reticulocytes/100 RBC (Bld) 1.9 % Normal 0.4-2.0 [facility] Comment on above: Order Comment: Speci men Type: BLOOD SPECIMENOrdering Facility: [facility] Address: [address] [place] [address] Performed By: #### 1 4196-0, 58793-8 ####[facility] HOSPITALA [id number] [place] [address] [place] Vit B12 SerPl-mCncon 024 Cobalamin (Vitamin B12) [Mass/Vol] 496 pg/mL Normal 232-1245 [facility] Comment on above: Order Comment: Speci men Type: BLOOD SPECIMENOrdering Facility: [facility] Address: [address] [place] [address] Performed By: #### 2 132-9, 2284-8 ####[facility] LABCLIA [id number] [place] [address] [place] CNPTOUTREACHon 05-12-2024 CNPTOUTREACH Normal [facility] CNOVSPon 05-06-2024 CNOVSP Normal [facility] CNPNon 05-03-2024 CNPN Normal [facility] Cobalamin (Vitamin B12) [Mas s/Vol]on 05-03-2024 Interpretation and review of laboratory results Normal [facility] VITAMIN B12on 05-03-2024 Cobalamin (Vitamin B12) [Mass/Vol] 341 pg/mL 232 - 1245 pg/mL [facility] CBC W Auto Differential pane l (Bld)on 05-02-2024 Basophils (Bld) [#/Vol] NINF [facility] Basophils/100 WBC (Bld) 0.4 % [facility] Differential cell count method Nom (Bld) Auto [facility] Eosinophils (Bld) [#/Vol] 0.06 10*3/uL [facility] Eosinophils/100 WBC (Bld) 1.3 % [facility] Erythrocyte distribution width (RBC) [Ratio] 15.2 % High 11.5 - 15.0 % [facility] Hematocrit (Bld) [Volume fraction] 32.6 % Low 39.0 - 51.0 % [facility] Hemoglobin (Bld) [Mass/Vol] 9.7 g/dL Low 13.0 - 17.0 g/dL [facility] Immature granulocytes (Bld) [#/Vol] [facility] Immature granulocytes/100 WBC (Bld) 0.4 % [facility] Interpretation and review of laboratory results Abnormal [facility] Lymphocytes (Bld) [#/Vol] 1.04 10*3/uL [facility] Lymphocytes/100 WBC (Bld) 22.6 % [facility] MCH (RBC) [Entitic mass] 24.1 pg Low 26.0 - 34.0 pg [facility] MCHC (RBC) [Mass/Vol] 29.8 g/dL Low 30.5 - 36.0 g/dL [facility] MCV (RBC) [Entitic vol] 81.1 fL 80.0 - 100.0 fL [facility] Monocytes (Bld) [#/Vol] 0.24 10*3/uL [facility] Monocytes/100 WBC (Bld) 5.2 % [facility] Neutrophils (Bld) [#/Vol] 3.22 10*3/uL [facility] Neutrophils/100 WBC (Bld) 70.1 % [facility] Nucleated RBC (Bld) [#/Vol] [facility] Nucleated RBC/100 WBC (Bld) [Ratio] 0.0 % /100 WBC [facility] Platelet mean volume (Bld) [Entitic vol] 13.2 fL High 9.0 - 12.7 fL [facility] Platelets (Bld) [#/Vol] 98 10*3/uL Low C [facility] Comment on above: Results checked and verified.No clot detected. RBC (Bld) [#/Vol] 4.02 10*6/uL Low 4.20 - 6.0 0 m/uL [facility] WBC (Bld) [#/Vol] 4.60 10*3/uL [facility] Comment on above: Results checked and verified.No clot detected. [facility] Basophils (Bld) [#/Vol] 10*3/uL Normal <0.11 [facility] Comment on above: Order Comment: Speci men Type: BLOOD SPECIMENOrdering Facility: [facility] Address: [address] [place] [address] Performed By: #### 5 7021-8 ####[facility] LABCLIA [id number] [place] [address] [place] Basophils/100 WBC (Bld) 0.4 % Normal [facility] Comment on above: Order Comment: Speci men Type: BLOOD SPECIMENOrdering Facility: [facility] Address: [address] [place] [address] Performed By: #### 5 7021-8 ####[facility] LABCLIA [id number] [place] [address] [place] Differential cell count method Nom (Bld) Auto Normal [facility] Comment on above: Order Comment: Speci men Type: BLOOD SPECIMENOrdering Facility: [facility] Address: [address] [place] [address] Performed By: #### 5 7021-8 ####[facility] LABCLIA [id number] [place] [address] [place] Eosinophils (Bld) [#/Vol] 0.06 10*3/uL Normal <0.46 [facility] Comment on above: Order Comment: Speci men Type: BLOOD SPECIMENOrdering Facility: [facility] Address: [address] [place] [address] Performed By: #### 5 7021-8 ####[facility] LABCLIA [id number] [place] [address] [place] Eosinophils/100 WBC (Bld) 1.3 % Normal [facility] Comment on above: Order Comment: Speci men Type: BLOOD SPECIMENOrdering Facility: [facility] Address: [address] [place] [address] Performed By: #### 5 7021-8 ####[facility] LABIA [id number] [place] [address] [place] Erythrocyte distribution width (RBC) [Ratio] 15.2 % High 11.5-15.0 [facility] Comment on above: Order Comment: Speci men Type: BLOOD SPECIMENOrdering Facility: [facility] Address: [address] [place] [address] Performed By: #### 5 7021-8 ####[facility] LABIA [id number] [place] [address] [place] Hematocrit (Bld) [Volume fraction] 32.6 % Low 39.0-51.0 [facility] Comment on above: Order Comment: Speci men Type: BLOOD SPECIMENOrdering Facility: [facility] Address: [address] [place] [address] Performed By: #### 5 7021-8 ####[facility] LABIA [id number] [place] [address] [place] Hemoglobin (Bld) [Mass/Vol] 9.7 g/dL Low 13.0-17.0 [facility] Comment on above: Order Comment: Speci men Type: BLOOD SPECIMENOrdering Facility: [facility] Address: [address] [place] [address] Performed By: #### 5 7021-8 ####[facility] LABIA [id number] [place] [address] [place] Immature granulocytes (Bld) [#/Vol] 10*3/uL Normal <0.10 [facility] Comment on above: Order Comment: Speci men Type: BLOOD SPECIMENOrdering Facility: [facility] Address: [address] [place] [address] Performed By: #### 5 7021-8 ####[facility] LABCLIA [id number] [place] [address] [place] Immature granulocytes/100 WBC (Bld) 0.4 % Normal [facility] Comment on above: Order Comment: Speci men Type: BLOOD SPECIMENOrdering Facility: [facility] Address: [address] [place] [address] Performed By: #### 5 7021-8 ####[facility] LABCLIA [id number] [place] [address] [place] Lymphocytes (Bld) [#/Vol] 1.04 10*3/uL Normal 1.00-4.00 [facility] Comment on above: Order Comment: Speci men Type: BLOOD SPECIMENOrdering Facility: [facility] Address: [address] [place] [address] Performed By: #### 5 7021-8 ####[facility] LABIA [id number] [place] [address] [place] Lymphocytes/100 WBC (Bld) 22.6 % Normal [facility] Comment on above: Order Comment: Speci men Type: BLOOD SPECIMENOrdering Facility: [facility] Address: [address] [place] [address] Performed By: #### 5 7021-8 ####[facility] LABCLIA [id number] [place] [address] [place] MCH (RBC) [Entitic mass] 24.1 pg Low 26.0-34.0 [facility] Comment on above: Order Comment: Speci men Type: BLOOD SPECIMENOrdering Facility: [facility] Address: [address] [place] [address] Performed By: #### 5 7021-8 ####[facility] LABCLIA [id number] [place] [address] [place] MCHC (RBC) [Mass/Vol] 29.8 g/dL Low 30.5-36.0 [facility] Comment on above: Order Comment: Speci men Type: BLOOD SPECIMENOrdering Facility: [facility] Address: [address] [place] [address] Performed By: #### 5 7021-8 ####[facility] LABIA [id number] [place] [address] [place] MCV (RBC) [Entitic vol] 81.1 fL Normal 80.0-100.0 [facility] Comment on above: Order Comment: Speci men Type: BLOOD SPECIMENOrdering Facility: [facility] Address: [address] [place] [address] Performed By: #### 5 7021-8 ####[facility] LABIA [id number] [place] [address] [place] Monocytes (Bld) [#/Vol] 0.24 10*3/uL Normal <0.87 [facility] Comment on above: Order Comment: Speci men Type: BLOOD SPECIMENOrdering Facility: [facility] Address: [address] [place] [address] Performed By: #### 5 7021-8 ####[facility] LABIA [id number] [place] [address] [place] Monocytes/100 WBC (Bld) 5.2 % Normal [facility] Comment on above: Order Comment: Speci men Type: BLOOD SPECIMENOrdering Facility: [facility] Address: [address] [place] [address] Performed By: #### 5 7021-8 ####[facility] LABIA [id number] [place] [address] [place] Neutrophils (Bld) [#/Vol] 3.22 10*3/uL Normal 1.45-7.50 [facility] Comment on above: Order Comment: Speci men Type: BLOOD SPECIMENOrdering Facility: [facility] Address: [address] [place] [address] Performed By: #### 5 7021-8 ####[facility] LABCLIA [id number] [place] [address] [place] Neutrophils/100 WBC (Bld) 70.1 % Normal [facility] Comment on above: Order Comment: Speci men Type: BLOOD SPECIMENOrdering Facility: [facility] Address: [address] [place] [address] Performed By: #### 5 7021-8 ####[facility] LABIA [id number] [place] [address] [place] Nucleated RBC (Bld) [#/Vol] 10*3/uL Normal <0.01 [facility] Comment on above: Order Comment: Speci men Type: BLOOD SPECIMENOrdering Facility: [facility] Address: [address] [place] [address] Performed By: #### 5 7021-8 ####[facility] LABIA [id number] [place] [address] [place] Nucleated RBC/100 WBC (Bld) [Ratio] 0.0 /100 WBC Normal [facility] Comment on above: Order Comment: Speci men Type: BLOOD SPECIMENOrdering Facility: [facility] Address: [address] [place] [address] Performed By: #### 5 7021-8 ####[facility] LABIA [id number] [place] [address] [place] Platelet mean volume (Bld) [Entitic vol] 13.2 fL High 9.0-12.7 [facility] Comment on above: Order Comment: Speci men Type: BLOOD SPECIMENOrdering Facility: [facility] Address: [address] [place] [address] Performed By: #### 5 7021-8 ####[facility] LABIA [id number] [place] [address] [place] Platelets (Bld) [#/Vol] 98 10*3/uL Low 150-400 [facility] Comment on above: Order Comment: Speci men Type: BLOOD SPECIMENOrdering Facility: [facility] Address: [address] [place] [address] Result Comment: Resu lts checked and verified.No clot detected. Performed By: #### 5 7021-8 ####[facility] LABIA [id number] [place] [address] [place] RBC (Bld) [#/Vol] 4.02 10*6/uL Low 4.20-6.00 [facility] Comment on above: Order Comment: Speci men Type: BLOOD SPECIMENOrdering Facility: [facility] Address: [address] [place] [address] Performed By: #### 5 7021-8 ####[facility] LABIA [id number] [place] [address] [place] WBC (Bld) [#/Vol] 4.60 10*3/uL Normal 3.70-11.00 [facility] Comment on above: Order Comment: Speci men Type: BLOOD SPECIMENOrdering Facility: [facility] Address: [address] [place] [address] Result Comment: Resu lts checked and verified.No clot detected. Performed By: #### 5 7021-8 ####[facility] LABIA [id number] [place] [address] [place] CNOVon 05-02-2024 CNOV Normal [facility] CNPNon 05-02-2024 CNPN Normal [facility] Comprehensive metabolic 2000 panelon 05-02-2024 Albumin [Mass/Vol] 4.2 g/dL Normal 3.9-4.9 [facility] Comment on above: Order Comment: Speci men Type: BLOOD SPECIMENOrdering Facility: [facility] Address: [address] [place] [address] Performed By: #### 2 132-9, 18309-2, 98829-8 ####[facility] LABCLIA [id number] [place] [address] [place] ALP [Catalytic activity/Vol] 63 U/L Normal 38-113 [facility] Comment on above: Order Comment: Speci men Type: BLOOD SPECIMENOrdering Facility: [facility] Address: [address] [place] [address] Performed By: #### 2 132-9, 74682-8, 23038-1 ####[facility] LABCLIA [id number] [place] [address] [place] ALT [Catalytic activity/Vol] 10 U/L Normal 10-54 [facility] Comment on above: Order Comment: Speci men Type: BLOOD SPECIMENOrdering Facility: [facility] Address: [address] [place] [address] Performed By: #### 2 132-9, 80535-0, 42314-6 ####[facility] LABCLIA [id number] [place] [address] [place] Anion gap [Moles/Vol] 13 mmol/L Normal 8-15 [facility] Comment on above: Order Comment: Speci men Type: BLOOD SPECIMENOrdering Facility: [facility] Address: [address] [place] [address] Performed By: #### 2 132-9, 34014-9, 47283-5 ####[facility] LABCLIA [id number] [place] [id number] [place] AST [Catalytic activity/Vol] 20 U/L Normal 14-40 [facility] Comment on above: Order Comment: Speci men Type: BLOOD SPECIMENOrdering Facility: [facility] Address: [address] [place] [address] Performed By: #### 2 132-9, 93957-7, 06302-2 ####[facility] LABCLIA [id number] [place] [address] [place] Bilirubin [Mass/Vol] 0.5 mg/dL Normal 0.2-1.[address] [facility] Comment on above: Order Comment: Speci men Type: BLOOD SPECIMENOrdering Facility: [facility] Address: [address] [place] [address] Performed By: #### 2 132-9, 59110-6, 09980-9 ####[facility] LABCLIA [id number] [place] [address] [place] Calcium [Mass/Vol] 9.6 mg/dL Normal 8.5-10.2 [facility] Comment on above: Order Comment: Speci men Type: BLOOD SPECIMENOrdering Facility: [facility] Address: [address] [place] [address] Performed By: #### 2 132-9, 39260-5, 97511-7 ####[facility] LABCLIA [id number] [place] [address] [place] Chloride [Moles/Vol] 106 mmol/L Normal 98-[address] [facility] Comment on above: Order Comment: Speci men Type: BLOOD SPECIMENOrdering Facility: [facility] Address: [address] [place] [address] Performed By: #### 2 132-9, 99701-9, 17195-9 ####[facility] LABCLIA [id number] [place] [id number] [place] CO2 [Moles/Vol] 22 mmol/L Normal 22-30 [facility] Comment on above: Order Comment: Speci men Type: BLOOD SPECIMENOrdering Facility: [facility] Address: [address] [place] [address] Performed By: #### 2 132-9, 21257-8, 08851-6 ####[facility] LABCLIA [id number] [place] [id number] [place] Creatinine [Mass/Vol] 1.27 mg/dL High 0.73-1.22 [facility] Comment on above: Order Comment: Briana lobo Type: BLOOD SPECIMENOrdering Facility: [facility] Address: [address] [place] [address] Performed By: #### 2 132-9, 35006-8, 08295-2 ####[facility] LABIA [id number] [address] [place] Creatinine and Glomerular filtration rate.predicted panel (S/P/Bld) 55 mL/min/1.73m??? Low >=60 [facility] Comment on above: Order Comment: Briana lobo Type: BLOOD SPECIMENOrdering Facility: [facility] Address: [address] [place] [address] Result Comment: Lynette mated Glomerular Filtration Rate (eGFR) is calculated using the 2020 CKD-EPI creatinine equation. This equation utilizes serum creatinine, sex, and age as parameters. The creatinine assay has traceable calibration to isotope dilution-mass spectrometry. Refer to KDIGO guidelines for clinical interpretation. In patients with unstable renal function, e.g. those with acute kidney injury, the eGFR may not accurately reflect actual GFR. Performed By: #### 2 132-9, 12821-5, 21767-5 ####[facility] LABIA [id number] [place] [address] [place] Glucose [Mass/Vol] 92 mg/dL Normal 74-99 [facility] Comment on above: Order Comment: Briana lobo Type: BLOOD SPECIMENOrdering Facility: [facility] Address: [address] [place] [address] Result Comment: The [place] [employer] (ADA) provides guidance for cutoff values for fasting glucose and random glucose. The ADA defines fasting as no caloric intake for at least 8 hours. Fasting plasma glucose results between 100 to 125 mg/dL indicate increased risk for diabetes (prediabetes).Fasting plasma glucose results greater than or equal to 126 mg/dL meet the criteria for diagnosis of diabetes. In the absence of unequivocal hyperglycemia, results should be confirmed by repeat testing. In a patient with classic symptoms of hyperglycemia or hyperglycemic crisis, random plasma glucose results greater than or equal to 200 mg/dL meet the criteria for diagnosis of diabetes.Reference: Standards of Medical Care in Diabetes 2016, [place] [employer]. Diabetes Care. 2016.39(Suppl 1). Performed By: #### 2 132-9, 49590-2, 32727-5 ####[facility] LABCLIA [id number] [address] [address] [place] Potassium [Moles/Vol] 4.3 mmol/L Normal 3.7-5.1 [facility] Comment on above: Order Comment: Speci men Type: BLOOD SPECIMENOrdering Facility: [facility] Address: [address] [place] [address] Performed By: #### 2 132-9, 72322-1, 59187-1 ####[facility] LABCLIA [id number] [place] [address] [place] Protein [Mass/Vol] 6.5 g/dL Normal 6.3-8.0 [facility] Comment on above: Order Comment: Speci men Type: BLOOD SPECIMENOrdering Facility: [facility] Address: [address] [place] [address] Performed By: #### 2 132-9, 64801-6, 61311-3 ####[facility] LABCLIA [id number] [place] [address] [place] Sodium [Moles/Vol] 141 mmol/L Normal 136-144 [facility] Comment on above: Order Comment: Speci men Type: BLOOD SPECIMENOrdering Facility: [facility] Address: [address] [place] [address] Performed By: #### 2 132-9, 26884-9, 04300-9 ####[facility] LABCLIA [id number] [address] [address] [place] Urea nitrogen [Mass/Vol] 14 mg/dL Normal 9-24 [facility] Comment on above: Order Comment: Speci men Type: BLOOD SPECIMENOrdering Facility: [facility] Address: [address] [place] [address] Performed By: #### 2 132-9, 66392-5, 88583-3 ####[facility] LABCLIA [id number] [place] [address] [place] [place] [employer] binding capaci ty panelon 05-02-2024 Iron [Mass/Vol] 250 ug/dL High 41-186 [facility] Comment on above: Order Comment: Speci men Type: BLOOD SPECIMENOrdering Facility: [facility] Address: [address] [place] [address] Performed By: #### 2 132-9, 65242-5, 27250-6 ####[facility] LABCLIA [id number] [place] [address] [place] Iron binding capacity [Mass/Vol] 404 ug/dL High 232-386 [facility] Comment on above: Order Comment: Speci men Type: BLOOD SPECIMENOrdering Facility: [facility] Address: [address] [place] [address] Performed By: #### 2 132-9, 87599-2, 02875-8 ####[facility] LABCLIA [id number] [place] [address] [place] Iron/TIBC [Molar ratio] 61.9 % High 15.0-57.0 [facility] Comment on above: Order Comment: Speci men Type: BLOOD SPECIMENOrdering Facility: [facility] Address: [address] [place] [address] Performed By: #### 2 132-9, 90270-3, 05404-5 ####[facility] LABCLIA [id number] [place] [id number] [place] Vit B12 SerPl-mCncon 024 Cobalamin (Vitamin B12) [Mass/Vol] 341 pg/mL Normal 232-1245 [facility] Comment on above: Order Comment: Speci men Type: BLOOD SPECIMENOrdering Facility: [facility] Address: [address] [place] [address] Performed By: #### 2 132-9, 54262-9, 32932-6 ####[facility] LABCLIA [id number] [place] [address] [place] CNPNon 04-28-2024 CNPN Normal [facility] CNPNon 04-26-2024 CNPN Normal [facility] Hemoccult Stl Ql IAon 2023 Lower GI hemoglobin IA Ql (Stl) Negative Normal Negative [facility] Comment on above: Order Comment: Speci men Type: STOOL SPECIMENOrdering Facility: [facility] Address: [address] [place] [address] Performed By: #### 2 9771-3 ####[facility] LABCLIA [id number] [place] [address] [place] CNPNon 04-19-2024 CNPN Normal [facility] CNPNon 04-18-2024 CNPN Normal [facility] CBC W Auto Differential pane l (Bld)on 04-15-2024 Basophils (Bld) [#/Vol] 0.04 10*3/uL Normal <0.11 [facility] Comment on above: Order Comment: Speci men Type: BLOOD SPECIMENOrdering Facility: [facility] Address: [address] [place] [address] Performed By: #### 5 7021-8 ####[facility] HOSPITALWNCLIA [id number] [place] [address] [place] Basophils/100 WBC (Bld) 0.6 % Normal [facility] Comment on above: Order Comment: Speci men Type: BLOOD SPECIMENOrdering Facility: [facility] Address: [address] [place] [address] Performed By: #### 5 7021-8 ####[facility] MILLTOWNCLIA [id number] [place] [address] [place] Differential cell count method Nom (Bld) Auto Normal [facility] Comment on above: Order Comment: Speci men Type: BLOOD SPECIMENOrdering Facility: [facility] Address: [address] [place] [address] Performed By: #### 5 7021-8 ####[facility]PITALGRACIEJORDAN VALLEY [facility] [id number] [place] [address] [place] Eosinophils (Bld) [#/Vol] 0.21 10*3/uL Normal <0.46 [facility] Comment on above: Order Comment: Speci men Type: BLOOD SPECIMENOrdering Facility: [facility] Address: [address] [place] [address] Performed By: #### 5 7021-8 ####[facility]PITALGRACIEJORDAN VALLEY [facility] [id number] [place] [address] [place] Eosinophils/100 WBC (Bld) 3.0 % Normal [facility] Comment on above: Order Comment: Speci men Type: BLOOD SPECIMENOrdering Facility: [facility] Address: [address] [place] [address] Performed By: #### 5 7021-8 ####[facility] [id number] [place] [address] [place] Erythrocyte distribution width (RBC) [Ratio] 14.1 % Normal 11.5-15.0 [facility] Comment on above: Order Comment: Speci men Type: BLOOD SPECIMENOrdering Facility: [facility] Address: [address] [place] [address] Performed By: #### 5 7021-8 ####[facility]OSPITALNCJORDAN VALLEY [facility] [id number] [place] [address] [place] Hematocrit (Bld) [Volume fraction] 31.0 % Low 39.0-51.0 [facility] Comment on above: Order Comment: Speci men Type: BLOOD SPECIMENOrdering Facility: [facility] Address: [address] [place] [address] Performed By: #### 5 7021-8 ####[facility] HOSPITALJACKIE [id number] [place] [address] [place] Hemoglobin (Bld) [Mass/Vol] 9.4 g/dL Low 13.0-17.0 [facility] Comment on above: Order Comment: Speci men Type: BLOOD SPECIMENOrdering Facility: [facility] Address: [address] [place] [address] Performed By: #### 5 7021-8 ####[facility] [id number] [place] [address] [place] Immature granulocytes (Bld) [#/Vol] 0.03 10*3/uL Normal <0.10 [facility] Comment on above: Order Comment: Speci men Type: BLOOD SPECIMENOrdering Facility: [facility] Address: [address] [place] [address] Performed By: #### 5 7021-8 ####[facility] [id number] [place] [address] [place] Immature granulocytes/100 WBC (Bld) 0.4 % Normal [facility] Comment on above: Order Comment: Speci men Type: BLOOD SPECIMENOrdering Facility: [facility] Address: [address] [place] [address] Performed By: #### 5 7021-8 ####[facility] [id number] [place] [address] [place] Lymphocytes (Bld) [#/Vol] 1.24 10*3/uL Normal 1.00-4.00 [facility] Comment on above: Order Comment: Speci men Type: BLOOD SPECIMENOrdering Facility: [facility] Address: [address] [place] [address] Performed By: #### 5 7021-8 ####[facility] HOSPITALNCLIA [id number] [place] [address] [place] Lymphocytes/100 WBC (Bld) 17.6 % Normal [facility] Comment on above: Order Comment: Speci men Type: BLOOD SPECIMENOrdering Facility: [facility] Address: [address] [place] [address] Performed By: #### 5 7021-8 ####[facility] HOSPITALDIGNA [id number] [place] [address] [place] MCH (RBC) [Entitic mass] 24.4 pg Low 26.0-34.0 [facility] Comment on above: Order Comment: Speci men Type: BLOOD SPECIMENOrdering Facility: [facility] Address: [address] [place] [address] Performed By: #### 5 7021-8 ####[facility] [id number] [place] [address] [place] MCHC (RBC) [Mass/Vol] 30.3 g/dL Low 30.5-36.0 [facility] Comment on above: Order Comment: Speci men Type: BLOOD SPECIMENOrdering Facility: [facility] Address: [address] [place] [address] Performed By: #### 5 7021-8 ####[facility] [id number] [place] [address] [place] MCV (RBC) [Entitic vol] 80.5 fL Normal 80.0-100.0 [facility] Comment on above: Order Comment: Speci men Type: BLOOD SPECIMENOrdering Facility: [facility] Address: [address] [place], [place] [address] Performed By: #### 5 7021-8 ####[facility]OSPITALNCJORDAN VALLEY [facility] [id number] [place] [address] [place] Monocytes (Bld) [#/Vol] 0.47 10*3/uL Normal <0.87 [facility] Comment on above: Order Comment: Speci men Type: BLOOD SPECIMENOrdering Facility: [facility] Address: [address] [place] [address] Performed By: #### 5 7021-8 ####[facility] HOSPITALA [id number] [place] [address] [place] Monocytes/100 WBC (Bld) 6.7 % Normal [facility] Comment on above: Order Comment: Speci men Type: BLOOD SPECIMENOrdering Facility: [facility] Address: [address] [place] [address] Performed By: #### 5 7021-8 ####[facility] [id number] [place] [address] [place] Neutrophils (Bld) [#/Vol] 5.04 10*3/uL Normal 1.45-7.50 [facility] Comment on above: Order Comment: Speci men Type: BLOOD SPECIMENOrdering Facility: [facility] Address: [address] [place] [address] Performed By: #### 5 7021-8 ####[facility] HOSPITALA [id number] [place] [address] [place] Neutrophils/100 WBC (Bld) 71.7 % Normal [facility] Comment on above: Order Comment: Speci men Type: BLOOD SPECIMENOrdering Facility: [facility] Address: [address] [place] [address] Performed By: #### 5 7021-8 ####[facility] [id number] [place] [address] [place] Nucleated RBC (Bld) [#/Vol] 10*3/uL Normal <0.01 [facility] Comment on above: Order Comment: Speci men Type: BLOOD SPECIMENOrdering Facility: [facility] Address: [address] [place] [address] Performed By: #### 5 7021-8 ####[facility] EFRA [id number] [place] [address] [place] Nucleated RBC/100 WBC (Bld) [Ratio] 0.0 /100 WBC Normal [facility] Comment on above: Order Comment: Speci men Type: BLOOD SPECIMENOrdering Facility: [facility] Address: [address] [place] [address] Performed By: #### 5 7021-8 ####[facility] DANAEstefaniaNCBAKARI [id number] [place] [address] [place] Platelet mean volume (Bld) [Entitic vol] 12.1 fL Normal 9.0-12.7 [facility] Comment on above: Order Comment: Speci men Type: BLOOD SPECIMENOrdering Facility: [facility] Address: [address] [place] [address] Performed By: #### 5 7021-8 ####[facility] DANADEERFIELDJACKIE [id number] [place] [address] [place] Platelets (Bld) [#/Vol] 106 10*3/uL Low 150-400 [facility] Comment on above: Order Comment: Speci men Type: BLOOD SPECIMENOrdering Facility: [facility] Address: [address] [place] [address] Performed By: #### 5 7021-8 ####[facility]OSPITALGRACIELIA [id number] [place] [address] [place] RBC (Bld) [#/Vol] 3.85 10*6/uL Low 4.20-6.00 [facility] Comment on above: Order Comment: Speci men Type: BLOOD SPECIMENOrdering Facility: [facility] Address: [address] [place] [address] Performed By: #### 5 7021-8 ####[facility] MILLTOWNCLIA [id number] [place] [address] [place] WBC (Bld) [#/Vol] 7.03 10*3/uL Normal 3.70-11.00 [facility] Comment on above: Order Comment: Speci men Type: BLOOD SPECIMENOrdering Facility: [facility] Address: [address] [place] [address] Performed By: #### 5 7021-8 ####[facility] MILLWNCLIA [id number] [place] [address] [facility] [place] Comprehensive metabolic 2000 panelon 04-15-2024 Albumin [Mass/Vol] 4.5 g/dL Normal 3.9-4.9 [facility] Comment on above: Order Comment: Speci men Type: BLOOD SPECIMENOrdering Facility: [facility] Address: [address] [place] [address] Performed By: #### 5 0190-8, 2276-4 ####[facility] LABCLIA [id number] [place] [address] [place]#### 51849-2 ####[facility]OSPITALNCLIA [id number] [place] [address] [place] ALP [Catalytic activity/Vol] 67 U/L Normal 38-113 [facility] Comment on above: Order Comment: Speci men Type: BLOOD SPECIMENOrdering Facility: [facility] Address: [address] [place] [address] Performed By: #### 5 0190-8, 2276-4 ####[facility] LABCLIA [id number] [place] [address] [place]#### 00192-0 ####[facility] MILLTOWNCLIA [id number] [place] [address] [place] ALT [Catalytic activity/Vol] 6 U/L Low 10-54 [facility] Comment on above: Order Comment: Speci men Type: BLOOD SPECIMENOrdering Facility: [facility] Address: [facility] [place] [address] Performed By: #### 5 0190-8, 6-4 ####[facility] LABCLIA [id number] [place] [address] [place]#### 47212-6 ####[facility] MILLTOWNCLIA [id number] [place] [address] [place] Anion gap [Moles/Vol] 13 mmol/L Normal 8-15 [facility] Comment on above: Order Comment: Speci men Type: BLOOD SPECIMENOrdering Facility: [facility] Address: [address] [place] [address] Performed By: #### 5 0190-8, 2275-4 ####[facility] LABCLIA [id number] [place] [address] [place]#### 01677-2 ####[facility] MILLTOWNCLIA [id number] [place] [address] [place] AST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 40.2 fl Normal 35.1-43.9 [facility] Comment on above: Performed By: #### L 501.9100, L100.0100, L505.5000, L500.2500 ####[facility] [address] [place], [address] WBC (Bld) [#/Vol] 3.3 10*3/uL Low 4.4-11.0 [facility] Comment on above: Performed By: #### L 501.9100, L100.0100, L505.5000, L500.2500 ####[facility] [address] [place], [address] Emergency Department Summary on 04-09-2024 Emergency Department Summary Normal [facility] Urinalysis, Completeon 04-09 EPI,SQUAMOUS 0-5 SEEN Normal 0-5 [facility] Comment on above: Order Comment: CLEAN CATCH Performed By: #### L 400.0001 ####[facility] [address] [place], [address] BACTERIA 0 SEEN Normal None Seen [facility] Comment on above: Order Comment: CLEAN CATCH Performed By: #### L 400.0001 ####[facility] [address] [place], [address] Mucus Ql (Urine sed) 0 SEEN Normal [facility] Comment on above: Order Comment: CLEAN CATCH Performed By: #### L 400.0001 ####[facility] [address] [place], [address] RBC 0 SEEN Normal 0-5 [facility] Comment on above: Order Comment: CLEAN CATCH Performed By: #### L 400.0001 ####[facility] [address] [place], [address] WBC 0 SEEN Normal 0-5 [facility] Comment on above: Order Comment: CLEAN CATCH Performed By: #### L 400.0001 ####[facility] [address] [place], [address] Urine Drug Screen (VISTA)on 04-09-2024 AMPHETAMINES Negative Normal <1000 ng/mL [facility] Comment on above: Performed By: #### L 501.9100, L100.0100, L505.5000, L500.2500 ####[facility] [address] [place], [address] BARBITIURATES Negative Normal < 200 ng/mL [facility] Comment on above: Performed By: #### L 501.9100, L100.0100, L505.5000, L500.2500 ####[facility] [address] [place], [address] BENZODIAZIPINE Negative Normal < 200 ng/mL [facility] Comment on above: Performed By: #### L 501.9100, L100.0100, L505.5000, L500.2500 ####[facility] [address] [place], [address] COCAINE Negative Normal < 300 ng/mL [facility] Comment on above: Performed By: #### L 501.9100, L100.0100, L505.5000, L500.2500 ####[facility] [address] [place], [address] ECSTACY Negative Normal < 500 ng/mL [facility] Comment on above: Performed By: #### L 501.9100, L100.0100, L505.5000, L500.2500 ####[facility] [address] [place], [place], [phone] METHADONE Negative Normal < 300 ng/mL [facility] Comment on above: Performed By: #### L 501.9100, L100.0100, L505.5000, L500.2500 ####[facility] [address] [place], [address] OPIATES Negative Normal < 300 ng/mL [facility] Comment on above: Performed By: #### L 501.9100, L100.0100, L505.5000, L500.2500 ####[facility] [address] [place], [address] PCP Negative Normal < 25 ng/mL [facility] Comment on above: Performed By: #### L 501.9100, L100.0100, L505.5000, L500.2500 ####[facility] [address] [place], [address] THC Negative Normal < 50 ng/mL [facility] Comment on above: Performed By: #### L 501.9100, L100.0100, L505.5000, L500.2500 ####[facility] [address] [place], [place], [id number] VISTA UDS PH 5 Normal [facility] Comment on above: Performed By: #### L 501.9100, L100.0100, L505.5000, L500.2500 ####[facility] [address] [place], [place], [id number] CNPNon 04-06-2024 CNPN Normal [facility] CNPNon 04-05-2024 CNPN Normal [facility] Emergency Department Summary on 03-25-2024 Emergency Department Summary Normal [facility] CNPNon 03-24-2024 CNPN Normal [facility] CNOVon 03-21-2024 CNOV Normal [facility] CNPNon 03-21-2024 CNPN Normal [facility] Emergency Department Summary on 03-21-2024 Emergency Department Summary Normal [facility] CNPTOUTREACHon 03-17-2024 CNPTOUTREACH Normal [facility] CNOVon 03-02-2024 CNOV Normal [facility] EWS99ra 03-02-2024 ECG01 Normal [facility] CNOVon 02-29-2024 CNOV Normal [facility] CNOVon 02-26-2024 CNOV Normal [facility] XR HIP 3V PELV+ AP/LAT RTon 02-26-2024 XR HIP 3V PELV+ AP/LAT RT Normal [facility] CNOVon 02-23-2024 CNOV Normal [facility] CNPTOUTREACHon 02-17-2024 CNPTOUTREACH Normal [facility] UA DIP, URINE (POC)on 2023 BILIRUBIN UA (POCT) Negative Negative [facility] CLARITY UA (POCT) Clear [facility] COLOR UA (POCT) Yellow [facility] GLUCOSE UA (POCT) Negative Negative mg/dL [facility] Hemoglobin Ql (U) Trace-lysed Abnormal [facility] Interpretation and review of laboratory results Abnormal [facility] KETONE UA (POCT) Negative Negative mg/dL [facility] LEUKOCYTES UA (POCT) Negative [facility] NITRITE UA (POCT) Negative Negative [facility] PH UA (POCT) 5.5 4.5 - 8.0 [facility] Protein Ql (U) Negative Negative mg/dL [facility] SPECIFIC GRAVITY UA (POCT) <=1.005 Abnormal 1.005 - 1.030 [facility] UROBILINOGEN UA (POCT) 0.2 Abby l E.U./dL [facility] Location:[facility], [address] [place] [address], [place], [address] [facility] POINT OF CARE [facility] UA DIP, URINE (POC)on 2023 BILIRUBIN UA (POCT) Negative Negative [facility] CLARITY UA (POCT) Clear [facility] COLOR UA (POCT) Yellow [facility] GLUCOSE UA (POCT) Negative Negative mg/dL [facility] Hemoglobin Ql (U) Trace-intact Abnormal Negative [facility] KETONE UA (POCT) Negative Negative mg/dL [facility] LEUKOCYTES UA (POCT) Negative Negative [facility] NITRITE UA (POCT) Negative Negative [facility] PH UA (POCT) 5.5 4.5 - 8.0 [facility] Protein Ql (U) Negative Negative mg/dL [facility] SPECIFIC GRAVITY UA (POCT) <=1.005 Abnormal 1.005 - 1.030 [facility] UROBILINOGEN UA (POCT) 0.2 E.U./dL Abby l E.U./dL [facility] US Kidney - bilateral and Ur inary bladderon 10-12-2023 [facility] Basic metabolic 2000 panelon 10-08-2023 Anion gap [Moles/Vol] 11 mmol/L 9 - 18 mmol/L [facility] Calcium [Mass/Vol] 9.6 mg/dL 8.5 - 10. 2 mg/dL [facility] Chloride [Moles/Vol] 106 mmol/L High 97 - 10 5 mmol/L [facility] CO2 [Moles/Vol] 24 mmol/L 22 - 30 mmol/L [facility] Creatinine [Mass/Vol] 1.45 mg/dL High 0.73 - 1.22 mg/dL [facility] Estimated Glomerular Filtration Rate 47 mL/min/1.73m Low >=60 mL/min/1.73 m [facility] Glucose [Mass/Vol] 99 mg/dL 74 - 99 mg/dL [facility] Potassium [Moles/Vol] 4.7 mmol/L 3.7 - 5.1 mmol/L [facility] Sodium [Moles/Vol] 141 mmol/L 136 - 144 mmol/L [facility] Urea nitrogen [Mass/Vol] 15 mg/dL 9 - 24 mg/dL [facility] Basophil percentageOrdered B y: Alvin Dumont on 09-26-2023 Chloride [Moles/Vol] 113 mmol/L 98-107 [facility] Glucose [Mass/Vol] 182 mg/dL 74-106 [facility] Comment on above: Fasting Glucose resu lt greater than or equal to 126 mg/dL suggests DIABETES MELLITUS per A.D.A. criteria. Potassium [Moles/Vol] 3.5 mmol/L 3.5-5.1 [facility] Sodium [Moles/Vol] 141 mmol/L 136-145 [facility] Laboratory - Chemistry and C hemistry - challengeOrdered By: Alvin Dumont on 09-26-2023 CO2 [Moles/Vol] 21.0 mmol/L 21.0-32.0 [facility] Urea nitrogen/Creatinine [Mass ratio] 19.1 mg/mg 10-20 [facility] No Panel InformationOrdered By: Alvin Dumont on 09-26-2023 Estimated Creatinine Clearance Calc 38.54 ml/min [facility] Estimated GFR (MDRD) Amer 67 mL/min >60 [facility] Comment on above: GFR Calc Estimated GFR (MDRD) Non-Af Amer 55 mL/min >60 [facility] Comment on above: Non- GFR Calc Serum or plasma calcium kim urement (mass/volume)Ordered By: Alvin Dumont on 09-26-2023 Calcium [Mass/Vol] 9.2 mg/dL 8.5-10.1 [facility] Serum or plasma creatinine m easurement (mass/volume)Ordered By: Alvin Dumont on 09-26-2023 Creatinine [Mass/Vol] 1.31 mg/dL 0.70-1.30 [facility] Comment on above: The validity of the calculated GFR & GFRAA in patients over 70 years has not been determined. Clinical correlation is essential. Serum or plasma urea nitroge n measurement (mass/volume)Ordered By: Alvin Dumont on 09-26-2023 Urea nitrogen [Mass/Vol] 25 mg/dL 7-18 [facility] Thin prep Papanicolaou smear with manual screeningOrdered By: Alvin Dumont on 09-26-2023 Thin prep Papanicolaou smear with manual screening 7 5-15 [facility] Absolute lymphocyte countOrd ered By: Fiorella Ramos on 09-25-2023 Lymphocytes Auto (Unsp spec) [#/Vol] 0.92 10*3/uL 0.83-4.51 [facility] Automated lymphocyte count a s percentage of total leukocytesOrdered By: Fiorella Ramos on 09-25-2023 Lymphocytes/100 WBC Auto (Unsp spec) 11.8 % 19-41 [facility] Basophil percentageOrdered B y: Fiorella Ramos on 09-25-2023 Basophils/100 WBC (Bld) 0.0 % 0-1 [facility] Cholesterol [Mass/Vol] 142 mg/dL <200 [facility] Comment on above: <200 mg/dL Desirable 200-240 mg/dL Borderline >240 mg/dL High Risk Eosinophils/100 WBC (Bld) 0.0 % 0-5 [facility] Hemoglobin (Bld) [Mass/Vol] 11.9 g/dL 13.0-16.5 [facility] Monocytes/100 WBC (Bld) 2.7 % 0-10 [facility] Neutrophils (Bld) [#/Vol] 6.6 10*3/uL 2.0-7.7 [facility] Neutrophils/100 WBC (Bld) 84.3 % 47-70 [facility] Triglyceride [Mass/Vol] 91 mg/dL <199 [facility] Comment on above: The drugs N-Acetylcy steine and Metamizole may falsely depress this assay.Serum Triglycerides Reference Interval Normal <150 mg/dL Borderline high 150 - 199 mg/dL High 200 - 499 mg/dL Very High > or = 500 mg/dL WBC (Bld) [#/Vol] 7.8 10*3/uL 4.4-11.0 [facility] Blood manual differential co mment interpretation (narrative result)Ordered By: Fiorella Ramos on 09-25-2023 Manual differential comment Miguel (Bld) [Interp] SCANNED [facility] Blood platelet adequacy dete ction by light microscopyOrdered By: Fiorella Ramos on 09-25-2023 Platelets LM Ql (Bld) MOD DEC ADEQ [facility] Determination of erythrocyte mean corpuscular volume (MCV)Ordered By: Fiorella Ramos on 09-25-2023 MCV (RBC) [Entitic vol] 88.9 fL 80-94 [facility] Erythrocyte distribution wid th ratioOrdered By: Fiorella Ramos on 09-25-2023 Erythrocyte distribution width (RBC) [Ratio] 13.9 % 11.6-14.6 [facility] Erythrocyte distribution wid th standard deviationOrdered By: Fiorella Ramos on 09-25-2023 Erythrocyte distribution width (RBC) [Entitic vol] 45.1 fL 35.1-43.9 [facility] Hematocrit Auto (Bld) [Volum e fraction]Ordered By: Fiorella Ramos on 09-25-2023 Hematocrit (Bld) [Volume fraction] 36.8 % 40-54 [facility] High density lipoprotein (HD L) measurementOrdered By: Fiorella Ramos on 09-25-2023 Cholesterol in HDL (Body fld) [Mass/Vol] 65 mg/dL >40 [facility] Comment on above: The drugs N-Acetylcy steine and Metamizole may falsely depress this assay. Reference Range HDL <40 mg/dL Low HDL Cholesterol HDL >or= 60 mg/dL High HDL Cholesterol Immature granulocytes/100 WB C Auto (Bld)Ordered By: Fiorella Ramos on 09-25-2023 Immature granulocytes/100 WBC (Bld) 1.200 % 0.0-0.9 [facility] Comment on above: IG% - Immature Granu locytes (promyelocytes, myelocytes and metamyelocytes) > 1% indicates that a LEFT SHIFT is Present. Laboratory - Chemistry and C hemistry - challengeOrdered By: Fiorella Ramos on 09-25-2023 Magnesium [Mass/Vol] 2.5 mg/dL 1.6-2.6 [facility] Laboratory - Hematology and Cell countsOrdered By: Fiorella Ramos on 09-25-2023 MCH (RBC) [Entitic mass] 28.7 pg 27.0-32.0 [facility] MCHC (RBC) [Mass/Vol] 32.3 g/dL 32-36 [facility] Nucleated RBC/100 WBC (Bld) [Ratio] 0 % 0-5 [facility] Platelets (Bld) [#/Vol] 97 10*3/uL 150-450 [facility] Low density lipoprotein (LDL ) cholesterol measurementOrdered By: Fiorella Ramos on 09-25-2023 Cholesterol in LDL (Body fld) [Moles/Vol] 59 mg/dL 0-130 [facility] Platelet mean volume Benson-Ec ker (Bld) [Entitic vol]Ordered By: Fiorella Ramos on 09-25-2023 Platelet mean volume (Bld) [Entitic vol] 12.9 fL 6.2-12.0 [facility] RBC Auto (Bld) [#/Vol]Ordere d By: Fiorella Ramos on 09-25-2023 RBC (Bld) [#/Vol] 4.14 10*6/uL 4.6-6.2 [facility] Serum or plasma thyroid stim ulating hormone (TSH) measurement (units/volume)Ordered By: Fiorella Ramos on 09-25-2023 TSH Qn 0.76 uIU/mL 0.358-3.74 [facility] Very low density lipoprotein (VLDL) cholesterol measurementOrdered By: Fiorella Ramos on 09-25-2023 Cholesterol in VLDL Calc [Moles/Vol] 18 mg/dL 5-40 [facility] Absolute lymphocyte countOrd ered By: Rudy Sin on 09-24-2023 Lymphocytes Auto (Unsp spec) [#/Vol] 1.31 10*3/uL 0.83-4.51 [facility] Automated lymphocyte count a s percentage of total leukocytesOrdered By: Rudy Sin on 09-24-2023 Lymphocytes/100 WBC Auto (Unsp spec) 6.5 % 19-41 [facility] Basophil percentageOrdered B y: Rudy Sin on 09-24-2023 Basophil percentage 0 SEEN /hpf 0-5 [facility] Lactate [Moles/Vol] 1.7 mmol/L 0.4-2.0 [facility] Basophils/100 WBC (Bld) 0.2 % 0-1 [facility] Chloride [Moles/Vol] 110 mmol/L 98-107 [facility] Eosinophils/100 WBC (Bld) 0.0 % 0-5 [facility] Glucose [Mass/Vol] 123 mg/dL 74-106 [facility] Comment on above: Fasting Glucose resu lt from 100 to 125 mg/dL suggests IMPAIRED HOMEOSTASIS per A.D.A. criteria. Hemoglobin (Bld) [Mass/Vol] 14.4 g/dL 13.0-16.5 [facility] Monocytes/100 WBC (Bld) 2.1 % 0-10 [facility] Neutrophils (Bld) [#/Vol] 18.2 10*3/uL 2.0-7.7 [facility] Neutrophils/100 WBC (Bld) 90.0 % 47-70 [facility] Potassium [Moles/Vol] 4.3 mmol/L 3.5-5.1 [facility] Sodium [Moles/Vol] 140 mmol/L 136-145 [facility] WBC (Bld) [#/Vol] 20.2 10*3/uL 4.4-11.0 [facility] Bilirubin Test strip Ql (U)O rdered By: Rudy Sin on 09-24-2023 Bilirubin Ql (U) Negative Negative [facility] Culture, urineOrdered By: Do amita Sin on 09-24-2023 Bacteria identified Cx Nom (U) Culture exhibits no growth. [facility] Determination of erythrocyte mean corpuscular volume (MCV)Ordered By: Rudy Sin on 09-24-2023 MCV (RBC) [Entitic vol] 88.9 fL 80-94 [facility] Erythrocyte distribution wid th ratioOrdered By: Rudy Sin on 09-24-2023 Erythrocyte distribution width (RBC) [Ratio] 13.7 % 11.6-14.6 [facility] Erythrocyte distribution wid th standard deviationOrdered By: Rudy Sin on 09-24-2023 Erythrocyte distribution width (RBC) [Entitic vol] 44.0 fL 35.1-43.9 [facility] Hematocrit Auto (Bld) [Volum e fraction]Ordered By: Rudy Sin on 09-24-2023 Hematocrit (Bld) [Volume fraction] 44.7 % 40-54 [facility] Immature granulocytes/100 WB C Auto (Bld)Ordered By: Rudy Sin on 09-24-2023 Immature granulocytes/100 WBC (Bld) 1.200 % 0.0-0.9 [facility] Comment on above: IG% - Immature Granu locytes (promyelocytes, myelocytes and metamyelocytes) > 1% indicates that a LEFT SHIFT is Present. International normalized rat io (INR) calculationOrdered By: Rudy Sin on 09-24-2023 INR Coag (PPP) [Relative time] 1.0 {INR} [facility] Ketones Test strip Ql (U)Ord ered By: Rudy Sin on 09-24-2023 Ketones Ql (U) Negative Negative [facility] Laboratory - Chemistry and C hemistry - challengeOrdered By: Rudy Sin on 09-24-2023 CO2 [Moles/Vol] 25.0 mmol/L 21.0-32.0 [facility] Natriuretic peptide B (Bld) [Mass/Vol] 548.5 pg/mL 0-100 [facility] Urea nitrogen/Creatinine [Mass ratio] 11.2 mg/mg 10-20 [facility] Laboratory - CoagulationOrde red By: Rudy Sin on 09-24-2023 PT Coag (PPP) [Time] 13.5 s 11.7-14.9 [facility] Laboratory - Hematology and Cell countsOrdered By: Rudy Sin on 09-24-2023 MCH (RBC) [Entitic mass] 28.6 pg 27.0-32.0 [facility] MCHC (RBC) [Mass/Vol] 32.2 g/dL 32-36 [facility] Nucleated RBC/100 WBC (Bld) [Ratio] 0 % 0-5 [facility] Platelets (Bld) [#/Vol] 135 10*3/uL 150-450 [facility] Laboratory - Microbiology an d Antimicrobial susceptibilityOrdered By: Fiorella Ramos on 09-24-2023 SARS-CoV-2 (COVID-19) RNA CHALINO+probe Ql (Unsp spec) [facility] Mucus LM Ql (Urine sed)Order ed By: Rudy Sin on 09-24-2023 Mucus Ql (Urine sed) 0 SEEN /hpf [facility] Nitrite Test strip Ql (U)Ord ered By: Rudy Sin on 09-24-2023 Nitrite Ql (U) Negative Negative [facility] No Panel InformationOrdered By: Fiorella Ramos on 09-24-2023 Troponin I High Sensitivity 162 pg/mL 3.0-78.0 [facility] Comment on above: Critical Result(s) C alled at: 20:28:31 09/24/2023 by: Carlin Montano to Tariq. Results read back by same. Please Note: New Test Units and Gender Specific Reference Ranges. For more information see Policy Stat Procedure [place] High Sensitivity Troponin (TNIH) and attachments. No Panel InformationOrdered By: Rudy Sin on 09-24-2023 Troponin I High Sensitivity 82 pg/mL 3.0-78.0 [facility] Comment on above: Please Note: New Yusef t Units and Gender Specific Reference Ranges. For more information see Policy Stat Procedure [facility] High Sensitivity Troponin (TNIH) and attachments. Urine RBC 0 SEEN /hpf 0-5 [facility] D-Dimer Quantitative (PE/DVT) 0.66 FEU/ug/m 0.27-0.49 [facility] Comment on above: CRITICAL VALUE VERIF IED. CALLED TO [id number] Giovanna Uriostegui.RESULTS READ BACK BY SAME . D-Dimer ELEVATED (>0.49): Additional studies and clinicalassessments are indicated to conclude diagnosis of:Deep Vein Thrombosis (DVT) or Pulmonary Embolism (PE) Estimated Creatinine Clearance Calc 33.22 ml/min [facility] Estimated GFR (MDRD) Amer 56 mL/min >60 [facility] Comment on above: GFR Calc Estimated GFR (MDRD) Non-Af Amer 47 mL/min >60 [facility] Comment on above: Non- GFR Calc Platelet mean volume Benson-Ec ker (Bld) [Entitic vol]Ordered By: Rudy Sin on 09-24-2023 Platelet mean volume (Bld) [Entitic vol] 12.7 fL 6.2-12.0 [facility] Protein Test strip Ql (U)Ord ered By: Rudy Sin on 09-24-2023 Protein Ql (U) 15 mg/dl Negative [facility] RBC Auto (Bld) [#/Vol]Ordere d By: Rudy Sin on 09-24-2023 RBC (Bld) [#/Vol] 5.03 10*6/uL 4.6-6.2 [facility] Respiratory pathogens detect ion panel by molecular detection methodOrdered By: Fiorella Ramos on 09-24-2023 Respiratory pathogens DNA and RNA panel CHALINO+probe (Resp) [facility] Serum or plasma calcium kim urement (mass/volume)Ordered By: Rudy Sin on 09-24-2023 Calcium [Mass/Vol] 10.0 mg/dL 8.5-10.1 [facility] Serum or plasma creatinine m easurement (mass/volume)Ordered By: Rudy Sin on 09-24-2023 Creatinine [Mass/Vol] 1.52 mg/dL 0.70-1.30 [facility] Comment on above: The validity of the calculated GFR & GFRAA in patients over 70 years has not been determined. Clinical correlation is essential. Serum or plasma urea nitroge n measurement (mass/volume)Ordered By: Rudy Sin on 09-24-2023 Urea nitrogen [Mass/Vol] 17 mg/dL 7-18 [facility] Serum procalcitonin measurem entOrdered By: Fiorella Ramos on 09-24-2023 Procalcitonin [Mass/Vol] ng/mL 0.00-0.09 [facility] Comment on above: A procalcitonin (PCT ) level above 2.0 ng/mL on the first day of ICU admission is associated with a high risk for progression to severe sepsis and/or septic shock. A PCT level below 0.5 ng/mL on the first day of ICU admission is associated with a low risk for progression to severe and/or septic shock. Note: Concentrations <0.5 ng/mL do not exclude an infection on account of localized infections (without systemic signs) which can be associated with such low concentrations, or a systemic infection in its initial stages (<6 hours). Furthermore, increased procalcitonin can occur without infection. PCT concentrations between 0.5 and 2.0 ng/mL should be interpreted taking into account the patient's history. It is recommended to retest PCT within 6-24 hours if any concentrations <2 ng/mL are obtained. Squamous epithelial cells de tection in urine sediment by light microscopyOrdered By: Rudy Sin on 09-24-2023 Epithelial cells.squamous LM Ql (Urine sed) 0 SEEN /hpf 0-5 [facility] Thin prep Papanicolaou smear with manual screeningOrdered By: Rudy Sin on 09-24-2023 Thin prep Papanicolaou smear with manual screening 5 5-15 [facility] Urine blood detectionOrdered By: Rudy Sin on 09-24-2023 RBC Ql (U) 50 /ul Negative [facility] Urine clarityOrdered By: Nicolas Sin on 09-24-2023 Clarity (U) Clear Clear [facility] Urine color determinationOrd ered By: Rudy Sin on 09-24-2023 Color (U) Yellow Yellow [facility] Urine glucose detectionOrder ed By: Rudy Sin on 09-24-2023 Glucose Ql (U) Normal mg/dl Normal [facility] Urine leukocyte esterase det ection by dipstickOrdered By: Rudy Sin on 09-24-2023 Leukocyte esterase Test strip Ql (U) Negative Negative [facility] Urine pHOrdered By: Rudy win on 09-24-2023 pH (U) 6.0 [pH] 5.0 - 8.0 [facility] Urine sediment bacteria coun t by microscopy (number/high power field)Ordered By: Rudy Sin on 09-24-2023 Bacteria LM.HPF (Urine sed) [#/Area] 0 /[HPF] None Seen [facility] Urine specific gravity measu rementOrdered By: Rudy Sin on 09-24-2023 Specific gravity (U) [Rel density] 1.010 1.002-1.030 [facility] Urine urobilinogen measureme ntOrdered By: Rudy Sin on 09-24-2023 Urobilinogen Ql (U) Normal mg/dl Normal [facility] XR HIP GENERAL 3V PELV/AP/LA T RIGHTon 05-07-2023 [facility] IMAGING GUIDED ASP/INJ HIP J T/BURSA RIGHTon 11-26-2022 [facility] CBC W Auto Differential pane l (Bld)on 08-04-2022 Basophils (Bld) [#/Vol] 0.03 10*3/uL <0.11 k/uL [facility] Basophils/100 WBC (Bld) 0.4 % C [facility] Differential cell count method Nom (Bld) Auto [facility] Eosinophils (Bld) [#/Vol] 0.09 10*3/uL <0.46 k/uL [facility] Eosinophils/100 WBC (Bld) 1.2 % [facility] Erythrocyte distribution width (RBC) [Ratio] 14.0 % 11.5 - 15.0 % [facility] Hematocrit (Bld) [Volume fraction] 44.5 % 39.0 - 51.0 % [facility] Hemoglobin (Bld) [Mass/Vol] 14.4 g/dL 13.0 - 17.0 g/dL [facility] Immature granulocytes (Bld) [#/Vol] 0.03 10*3/uL <0.10 k/uL [facility] Immature granulocytes/100 WBC (Bld) 0.4 % [facility] Lymphocytes (Bld) [#/Vol] 1.99 10*3/uL 1.00 - 4.00 k/uL [facility] Lymphocytes/100 WBC (Bld) 26.1 % [facility] MCH (RBC) [Entitic mass] 28.7 pg 26.0 - 34.0 pg [facility] MCHC (RBC) [Mass/Vol] 32.4 g/dL 30.5 - 36.0 g/dL [facility] MCV (RBC) [Entitic vol] 88.6 fL 80.0 - 100.0 fL [facility] Monocytes (Bld) [#/Vol] 0.37 10*3/uL <0.87 k/uL [facility] Monocytes/100 WBC (Bld) 4.9 % C [facility] Neutrophils (Bld) [#/Vol] 5.10 10*3/uL 1.45 - 7.50 k/uL [facility] Neutrophils/100 WBC (Bld) 67.0 % [facility] Nucleated RBC (Bld) [#/Vol] <0.01 k/uL [facility] Nucleated RBC/100 WBC (Bld) [Ratio] 0.0 /100 WBC [facility] Platelet mean volume (Bld) [Entitic vol] 13.8 fL High 9.0 - 12.7 fL [facility] Platelets (Bld) [#/Vol] 81 10*3/uL Low 150 - 400 k/uL [facility] RBC (Bld) [#/Vol] 5.02 10*6/uL 4.20 - 6.0 0 m/uL [facility] WBC (Bld) [#/Vol] 7.61 10*3/uL 3.70 - 11.00 k/uL [facility] ESR Westergren method (Bld) [Velocity]on 08-04-2022 ESR (Bld) [Velocity] 2 mm/h 0 - 15 mm/hr [facility] C-REACTIVE PROTEIN (CRP)on 1 CRP [Mass/Vol] <0.9 mg/dL [facility] Comprehensive metabolic 2000 panelon 06-04-2022 Albumin [Mass/Vol] 4.5 g/dL 3.9 - 4.9 g/dL [facility] ALP [Catalytic activity/Vol] 64 U/L 38 - 113 U/L [facility] ALT [Catalytic activity/Vol] 10 U/L 10 - 54 U/L [facility] Anion gap [Moles/Vol] 12 mmol/L 9 - 18 mmol/L [facility] AST [Catalytic activity/Vol] 19 U/L 14 - 40 U/L [facility] Bilirubin [Mass/Vol] 0.6 mg/dL 0.2 - 1 .3 mg/dL [facility] Calcium [Mass/Vol] 9.7 mg/dL 8.5 - 10. 2 mg/dL [facility] Chloride [Moles/Vol] 104 mmol/L 97 - 10 5 mmol/L [facility] CO2 [Moles/Vol] 24 mmol/L 22 - 30 mmol/L [facility] Creatinine [Mass/Vol] 1.42 mg/dL High 0.73 - 1.22 mg/dL [facility] Estimated Glomerular Filtration Rate 49 mL/min/1.73m Low >=60 mL/min/1.73 m [facility] Glucose [Mass/Vol] 86 mg/dL 74 - 99 mg/dL [facility] Potassium [Moles/Vol] 4.4 mmol/L 3.7 - 5.1 mmol/L [facility] Protein [Mass/Vol] 7.0 g/dL 6.3 - 8.0 g/dL [facility] Sodium [Moles/Vol] 140 mmol/L 136 - 144 mmol/L [facility] Urea nitrogen [Mass/Vol] 13 mg/dL 9 - 24 mg/dL [facility] CBC W Auto Differential pane l (Bld)on 06-03-2022 Abs Immature Gran 0.03 k/uL <0.10 k/uL [facility] Basophils (Bld) [#/Vol] 0.04 10*3/uL <0.11 k/uL [facility] Basophils/100 WBC (Bld) 0.6 % C [facility] Differential cell count method Nom (Bld) Auto [facility] Eosinophils (Bld) [#/Vol] 0.07 10*3/uL <0.46 k/uL [facility] Eosinophils/100 WBC (Bld) 1.1 % [facility] Erythrocyte distribution width (RBC) [Ratio] 14.2 % 11.5 - 15.0 % [facility] Hematocrit (Bld) [Volume fraction] 43.1 % 39.0 - 51.0 % [facility] Hemoglobin (Bld) [Mass/Vol] 14.1 g/dL 13.0 - 17.0 g/dL [facility] Immature Gran % 0.5 % [facility] Lymphocytes (Bld) [#/Vol] 1.86 10*3/uL 1.00 - 4.00 k/uL [facility] Lymphocytes/100 WBC (Bld) 29.3 % [facility] MCH (RBC) [Entitic mass] 29.0 pg 26.0 - 34.0 pg [facility] MCHC (RBC) [Mass/Vol] 32.7 g/dL 30.5 - 36.0 g/dL [facility] MCV (RBC) [Entitic vol] 88.7 fL 80.0 - 100.0 fL [facility] Monocytes (Bld) [#/Vol] 0.40 10*3/uL <0.87 k/uL [facility] Monocytes/100 WBC (Bld) 6.3 % C [facility] Neutrophils (Bld) [#/Vol] 3.94 10*3/uL 1.45 - 7.50 k/uL [facility] Neutrophils/100 WBC (Bld) 62.2 % [facility] Nucleated RBC (Bld) [#/Vol] <0.01 k/uL [facility] Nucleated RBC/100 WBC (Bld) [Ratio] 0.0 /100 WBC [facility] Platelet mean volume (Bld) [Entitic vol] 14.2 fL High 9.0 - 12.7 fL [facility] Platelets (Bld) [#/Vol] 94 10*3/uL Low 150 - 400 k/uL [facility] RBC (Bld) [#/Vol] 4.86 10*6/uL 4.20 - 6.0 0 m/uL [facility] WBC (Bld) [#/Vol] 6.34 10*3/uL 3.70 - 11.00 k/uL [facility] UA DIP, URINE (POC)on 2021 BILIRUBIN UA (POCT) Negative Negative [facility] CLARITY UA (POCT) Clear [facility] COLOR UA (POCT) Yellow [facility] GLUCOSE UA (POCT) Negative Negative mg/dL [facility] HEMOGLOBIN/BLOOD UA (POCT) Negative Negative [facility] KETONE UA (POCT) Negative Negative mg/dL [facility] LEUKOCYTES UA (POCT) Negative Negative [facility] NITRITE UA (POCT) Negative Negative [facility] PH UA (POCT) 5.5 4.5 - 8.0 [facility] Protein Ql (U) Trace Abnormal Negative mg/dL [facility] SPECIFIC GRAVITY UA (POCT) 1.020 1.005 - 1.030 [facility] UROBILINOGEN UA (POCT) 0.2 E.U./dL Abby l E.U./dL [facility] XR HIP GENERAL 3V PELV/AP/LA T RIGHTon 02-03-2022 [facility] XR Chest PA and Lateralon IMPRESSION: Stable chest. No acute cardiopulmonary process. Health Plan Advisor: PSCB Transcribe Date/Time: Sep 13 2021 12:20P Dictated by : HARJINDER MORROW MD This examination was interpreted and the report reviewed and electronically signed by: HARJINDER MORROW MD on Sep 13 2021 12:23PM [facility] DIVISION OF RADIOLOGY * * *Final Report* * * DATE OF EXAM: Sep 13 2021 12:18PM WOX [id number] - XR CHEST 2V FRONTAL/LAT / PROCEDURE REASON: Cough * * * * Physician Interpretation * * * * EXAMINATION: CHEST RADIOGRAPH (2 VIEW FRONTAL & LATERAL) CLINICAL HISTORY: Cough MQ: [id number] EXAM DATE/TIME: 09/13/2021 12:18 PM COMPARISON: Comparison is made to prior chest dated 12 April 2008 and a AP view of the thoracic spine series from 04/20/2018. RESULT: Lines, tubes, and devices: None. Lungs and pleura: Chronic eventration of the bilateral hemidiaphragms with bibasilar fibrotic scarring, left greater than right, appears overall stable. There is no focal infiltrate/consolidation or acute pleural process/fluid. There is no vascular redistribution to suggest pulmonary edema. Cardiomediastinal silhouette: The cardiac, mediastinal and hilar shadows are unchanged with enlarged cardiac silhouette and median sternotomy changes. Other: The bony structures are osteopenic but intact DIVISION OF RADIOLOGY Provider, [facility] - 09/13/2021 * * *Final Report* * * DATE OF EXAM: Sep 13 2021 12:18PM WOX [id number] - XR CHEST 2V FRONTAL/LAT / PROCEDURE REASON: Cough * * * * Physician Interpretation * * * * EXAMINATION: CHEST RADIOGRAPH (2 VIEW FRONTAL & LATERAL) CLINICAL HISTORY: Cough MQ: [id number] EXAM DATE/TIME: 09/13/2021 12:18 PM COMPARISON: Comparison is made to prior chest dated 12 April 2008 and a AP view of the thoracic spine series from 04/20/2018. RESULT: Lines, tubes, and devices: None. Lungs and pleura: Chronic eventration of the bilateral hemidiaphragms with bibasilar fibrotic scarring, left greater than right, appears overall stable. There is no focal infiltrate/consolidation or acute pleural process/fluid. There is no vascular redistribution to suggest pulmonary edema. Cardiomediastinal silhouette: The cardiac, mediastinal and hilar shadows are unchanged with enlarged cardiac silhouette and median sternotomy changes. Other: The bony structures are osteopenic but intact IMPRESSION IMPRESSION: Stable chest. No acute cardiopulmonary process. Health Plan Advisor: PSCB Transcribe Date/Time: Sep 13 2021 12:20P Dictated by : HARJINDER MORROW MD This examination was interpreted and the report reviewed and electronically signed by: HARJINDER MORROW MD on Sep 13 2021 12:23PM [facility] Radiology Study observation (narrative) Albert Boyce XR Chest PA and LateralOrder ed By: [facility] Provider on 09-13-2021 [facility] Agnieszka 02-20-2020 CNPN Telephone ([id number]) ----- ANGIE DUTTON ([id number]) 1940 M Date Time Provider Department 02/20/20 DIPTI DECKER AGSPINE2 During your visit today, we recorded the following information about you: Kaye Acuña 02/20/2020 4:56 PM Signed CYCLOBENZAPRINE has been APPROVED through 08/23/2020. Kaye Acuña Allergies As of Date: 02/20/2020 Noted Allergy Reaction SULFA (SULFONAMIDE ANTIBIOTICS) 07/22/2004 11 - Vomiting Date Reviewed: 02/16/2020 Reviewed by: Kaye Acuña - Fully Assessed Reason for Visit: Medication Authorization [[id number]] Cmt: Cyclobenzaprine Prescriptions as of 02/20/2020 Sig: CYCLOBENZAPRINE 5 MG TABLET Take 1 tablet by mouth at bed* NITROGLYCERIN 0.4 MG SUBLINGU* Dissolve 1 tablet under the t* METOPROLOL SUCCINATE ER 25 MG* Take 1 tablet by mouth once d* GABAPENTIN 400 MG CAPSULE Take 1 capsule by mouth twice* CLOPIDOGREL 75 MG TABLET Take 1 tablet by mouth once d* ISOSORBIDE MONONITRATE ER 30 * Take 0.5 tablets by mouth onc* SUCRALFATE 1 GRAM TABLET Take 1 tablet by mouth twice * OMEPRAZOLE 20 MG CAPSULE,EVA* Take 1 capsule by mouth daily* FLUTICASONE PROPIONATE 50 MCG* Use 2 Sprays in each nostril * TRAZODONE 50 MG TABLET Take 1 tablet by mouth daily * SIMVASTATIN 20 MG TABLET Take 1 tablet by mouth daily * CLOTRIMAZOLE-BETAMETHASON E 1 * Apply 1 application to affect* POLYETHYLENE GLYCOL 3350 17 G* (ONE SCOOP) IN 8 OZ OF WATER * ACETAMINOPHEN ER 650 MG TABLE* Take 1,300 mg by mouth twice * Problem List As Of Date 02/20/2020 Noted Resolved SPINAL STENOSIS-LUMBAR [M48.061] 07/22/2004 LUMBOSACRAL NEURITIS NOS [RHK9637] 07/22/2004 LUMBOSACRAL SPONDYLOSIS [M47.817] 07/22/2004 Other specified acquired hypothyroidism [E03.8] 04/14/2005 05/30/2014 BENIGN HYPERTENSION [I10] 04/14/2005 MIXED HYPERLIPIDEMIA [E78.2] 04/14/2005 Coronary atherosclerosis [I25.10] 04/14/2005 More... INSOMNIA NOS [G47.00] 05/29/2006 ESOPHAGEAL REFLUX [K21.9] 05/29/2006 IMPAIRED FASTING GLUCOSE [R73.01] 04/05/2007 ALLERGIC RHINITIS NOS [J30.9] 07/06/2007 ANEMIA NOS [D64.9] 05/26/2008 THROMBOCYTOPENIA NOS [D69.6] 05/26/2008 More... Special screening for malignant neoplasms, colo*07/13/2014 07/13/2014 Elevated serum creatinine [R79.89] 10/30/2016 Serum calcium elevated [E83.52] 10/30/2016 Polymyalgia rheumatica (HCC) [M35.3] 09/01/2019 Atherosclerosis of [place] coronary artery of na*09/23/2018 TIA (transient ischemic attack) [G45.9] 09/01/2019 More... Chronic right hip pain [M25.551, G89.29] 11/01/2019 Pain of right calf [M79.661] 11/01/2019 CKD (chronic kidney disease) stage 3, GFR 30-59*01/30/2020 Encounter Status:Closed by KAYE ACUÑA on 02/20/20 [facility] CNArmand 02-16-2020 CNOV Office Visit (SPAGWO ) ----- ANGIE DUTTON ([id number]) 1940 M Date Time Provider Department 02/16/20 2:00 PM DIPTI DECKER During your visit today, we recorded the following information about you: Temperature Weight Height Normal [facility] PROGRESSon 02-16-2020 PROGRESS HNO ID: [id number] Author: Dipti Decker Service: ? Author Type: Physician Type: Progress Notes Filed: 02/19/2020 3:57 PM Note Text: [facility] Initial Evaluation Form CHIEF COMPLAINT: LBP Referred by: Lizeth Saini PA-C [address] [facility] [address] [facility] February 16, 2020: Angie Dutton is a 79 year old male presenting to the office for evaluation and treatment of LBP and bilateral leg pain that patient described as a toothache, spasm sensation at times. The pain only occurs with activity, such as when the patient is outdoors. Pain interferes with the patient's ability to be active; and also interferes with the patient's ability to sleep at night. Pain currently 0/10, at worst 7/10 PAIN DETAIL: Location: LBP, bilat legs pain Radiation: none Onset: >10 years Timing of Pain: frequently Pain Quality: toothache Alleviating: rest Exacerbating: activity, movement Prior therapies: tylenol, gabapentin, PT ADDITIONAL SYMPTOMS: No changes in urinary habits. No changes in bowel movement frequency. Able to restrain bowel movement. PAST MEDICAL HISTORY: PAST MEDICAL HISTORY Diagnosis Date - Acute myocardial infarction, unspecified site 21 years ago Myocardial Infarction - Allergic rhinitis, cause unspecified - Benign neoplasm of colon - Coronary atherosclerosis of unspecified type of vessel, [place] or graft - Diaphragmatic hernia without mention of obstruction or gangrene Hiatal hernia - Mixed hyperlipidemia Hyperlipidemia - Peptic ulcer, unspecified site, unspecified as acute or chronic, without mention of hemorrhage, perforation, or obstruction - Polymyalgia rheumatica (HCC) - 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 Psych: denies PAST SURGICAL HISTORY: PAST SURGICAL HISTORY Procedure Laterality Date - CABG, ARTERY-VEIN, THREE 1982 CABG, three grafts - COLONOSCOP W/ OR W/O [facility] SPEC 2001 Colonoscopy - COLONOSCOP W/ OR W/O [facility] SPEC 07/13/14 Colonoscopy - HEART SURGERY HX - KNEE SCOPE,DIAGNOSTIC 2000 both - PAST SURGICAL HISTORY OF surgery on umbilicus due to bleeding - RE[facility]ISE MEDIAN N/CARPAL TUNNEL SURG 1998 Carpal tunnel decomp bilateral - SIGMOIDOSCOPY FLEX DIAG 08/29/2004 Sigmoidoscopy SOCIAL HISTORY: Social History Tobacco Use - Smoking status: Former Smoker Years: 29.00 Start date: 08/24/1955 Last attempt to quit: 08/24/1984 Years since quittin.5 - Smokeless tobacco: Never Used - Tobacco comment: QUIT at age 44, started at 15 Substance Use Topics - Alcohol use: Yes Alcohol/week: 17.5 - 35.0 standard drinks Types: 7 - 14 Cans of Beer (12oz) per week Comment: 2 beers a day - Drug use: No Social History Social History Narrative Retired from [employer]. Had physical job. Frequent golfer. Exercising previously 3 hours daily when not golfing. . Lives with . - Illicits: denies - EtOH: occ FAMILY HISTORY: FAMILY HISTORY Problem Relation Age of Onset - Heart Mother - Hypertension Mother - Heart Father - Heart Sister - Heart Brother - Stroke Sister Reviewed, no history of chronic pain in parents, and is non-contributory MEDICATIONS: Current Outpatient Medications Medication Sig Dispense Refill - nitroglycerin sublingual (NITROQUICK) 0.4 mg SL tablet Dissolve 1 tablet under the tongue as directed. DISSOLVE ONE(1) TABLET UNDER THE TOUNGUE NEEDED FOR CHEST PAIN,EVERY 5 MIN X3 30 tablet 2 - metoprolol succinate ER (TOPROL XL) 25 mg 24 hr tablet Take 1 tablet by mouth once daily. 90 tablet 1 - gabapentin (NEURONTIN) 400 mg capsule Take 1 capsule by mouth twice daily for 90 days. 180 capsule 1 - clopidogrel (PLAVIX) 75 mg tablet Take 1 tablet by mouth once daily. 90 tablet 3 - isosorbide mononitrate ER (IMDUR) 30 mg 24 hr tablet Take 0.5 tablets by mouth once daily. 45 tablet 3 - sucralfate (CARAFATE) 1 gram tablet Take 1 tablet by mouth twice daily. 180 tablet 3 - omeprazole (PRILOSEC) 20 mg capsule Take 1 capsule by mouth daily before breakfast. 1/2 hr before meal. 90 capsule 2 - fluticasone (FLONASE) 50 mcg/actuation nasal spray Use 2 Sprays in each nostril once daily. Rinse mouth after use. 1 Bottle 11 - traZODone (DESYREL) 50 mg tablet Take 1 tablet by mouth daily at bedtime. 90 tablet 3 - simvastatin (ZOCOR) 20 mg tablet Take 1 tablet by mouth daily at bedtime. 90 tablet 3 - clotrimazole-betamethason e (LOTRISONE) cream Apply 1 application to affected area twice daily. UNTIL CLEAR FOR UP TO 2-3 WEEKS 15 g 1 - polyethylene glycol 3350 (MIRALAX) 17 gram/dose powder (ONE SCOOP) IN 8 OZ OF WATER DAILY UNTIL STOOLS ARE REGULAR UP TO TWO(2) WEEKS 3 Bottle 3 - acetaminophen (TYLENOL ARTHRITIS PAIN) 650 mg CR tablet Take 1,300 mg by mouth twice daily. No current facility-administered medications for this visit. REVIEW OF SYTEMS: Systemic Symptoms: Negative except as noted. Head Symptoms: Negative except as noted. Pulmonary Symptoms: Negative except as noted. Other ROS: Negative except as noted. Cardiovascular Symptoms: Negative except as noted. Gastrointestinal Symptoms: Negative except as noted. Genitourinary Symptoms: Negative except as noted. Neurological Symptoms: Negative except as noted. Endocrine Symptoms: Negative except as noted. Hematologic Symptoms: No History of Easy Bleeding. No History of Bruising. Musculoskeletal Symptoms: Negative except as noted. Skin Symptoms: Negative except as noted. Psychiatric Symptoms: Not feeling depressed. Not thinking about suicide. 02/16/20 1434 Temp: 36.6 ?C (97.8 ?F) Weight: 70.3 kg (155 lb) Height: 171.5 cm (5' 7.5) Estimated body mass index is 23.92 kg/m? as calculated from the following: Height as of this encounter: 171.5 cm (5' 7.5). Weight as of this encounter: 70.3 kg (155 lb). GENERAL PE: Constitutional: Normal Good Appearance Oriented to Time, Place and Person Skin: Normal Examination of The Skin Eyes: Normal Examination of The Eyes Anicteric, EOMI ENT: Normal Lung Exam: Non-labored respirations Cardiovascular Exam: Normal Heart Rate and Rhythm Abdominal Exam: Normal Examination of the Abdomen Neuro: CN grossly intact Psych: Mood appropriate for given condition MSK: 5/5 strength BL: LEs Sensory: Intact to light touch BL: LEs Gait: Non-antalgic Provocative Tests: LUMBAR - SLR - [place] LABS: Hemoglobin (g/dL) Date Value 01/30/2020 12.0 Hematocrit (%) Date Value 01/30/2020 39.1 WBC (k/uL) Date Value 01/30/2020 4.15 BUN (mg/dL) Date Value 01/30/2020 16 Creatinine (mg/dL) Date Value 01/30/2020 1.30 Potassium (mmol/L) Date Value 01/30/2020 4.7 Alkaline Phosphatase (U/L) Date Value 01/30/2020 67 AST (U/L) Date Value 01/30/2020 20 ALT (U/L) Date Value 01/30/2020 10 PT INR (no units) Date Value 04/12/2008 1.0 IMAGING/TESTING: XR L-spine 01/30/2020 FINDINGS: There are five gvs-awk-oypnoty lumbar vertebrae. No acute fractures seen. There appears be minimal L1 on L2 retrolisthesis. Disc space narrowing is identified, involving T12-L1, L1-2, L2-3 and L4-5 levels, most pronounced at L1-2. There is moderate osteophyte formation. Kissing spine is evident. Others: There are vascular calcifications. MRI L spine 2003 Findings:The lumbar vertebral bodies are normal in alignment. There is no marrow replacement process or acute compression fracture. There are Schmorl's node along the anterior endplate of L2 and superior endplate of L5. The conus medullaris terminates dorsal to the T12 vertebral body and is normal in morphology and signal. At L5-S1 central canal and neural foramina are patent. At L4-L5 there is a right paracentral protrusion causing mild to moderate narrowing of the central canal when combined with hypertrophic changes in the facet joints. There is bilateral mild neural foraminal stenosis. At L3-L4 there is a small annular tear associated with an otherwise normal intervertebral disc. The neural foramina are mildly narrowed. At L2-L3 through T12-L1 the central canal and neural foramina are patent. IMPRESSION: RIGHT PARACENTRAL PROTRUSION AT L4-L5. ANNULAR TEAR AT L3-L4. PDMP: OARRs was done and was consistent with history. Behavioral Health Assessment: [facility] Medical form was completed and reviewed. I do not see an indication at this time for a psychiatric/psychologic referral. A/P: Angie Dutton is a 79 year old male who presents with the following: Encounter Diagnosis ICD-10-CM 1. Lumbosacral spondylosis without myelopathy M47.817 2. Spinal stenosis, lumbar region, without neurogenic claudication M48.061 3. Myalgia M79.10 4. Other chronic pain G89.29 CONSULTS: - physician directed HEP handout provided to patient IMAGING/TESTING: - lumbar XR results reviewed MEDICATIONS: - OTC tylenol, salonpas patches, and aspercreme ointment - continue gabapentin as directed - oral NSAIDs deferred as patient on plavix, can trail voltaren in future - flexeril 5mg at bedtime PRN muscle spasms. Patient instructed to not drive or operate heavy machinery while taking medications. INTERVENTIONS: - consider lumbar MBB in future - consider ANNAMARIA in future [facility] Vital Signs Date Time Vital Sign Value Performing Clinician Facility 02-16-2025 13:11-0400 Body height 170.18 cm Valery Suppan [employer] Work Phone: [facility] 02-16-2025 13:11-0400 Body temperature 97.4 [degF] Valery Suppan [employer] Work Phone: [facility] 02-16-2025 13:11-0400 Diastolic blood pressure 52 mm[Hg] Valery Supp an [employer] Work Phone: [facility] 02-16-2025 13:11-0400 Heart rate 66 /min Valery Suppan [employer] Work Phone: [facility] 02-16-2025 13:11-0400 Respiratory rate 19 /min Valery Suppan [employer] Work Phone: [facility] 02-16-2025 13:11-0400 SaO2% (BldA) [Mass fraction] 99 % Valery Suppan [employer] Work Phone: [facility] 02-16-2025 13:11-0400 Systolic blood pressure 108 mm[Hg] Valery Suppa n [employer] Work Phone: [facility] 01-23-2025 08:50-0400 Body mass index (BMI) [Ratio] 25.33 kg/m2 Valery Suppan PROTOZOOLOGIST.ASSISTANT PORTF[employer]IO MANAGER Work Phone: [facility] 01-23-2025 08:50-0400 Body weight 78.93 kg Valery Suppan PROTOZOOLOGIST.ASSISTANT PORTF[employer] MANAGER Work Phone: [facility] 01-23-2025 08:50-0400 Diastolic blood pressure 58 mm[Hg] Valery Supp an PROTOZOOLOGIST.ASSISTANT PORTFOLIO MANAGER Work Phone: [facility] 01-23-2025 08:50-0400 Heart rate 57 /min Valery Suppan PROTOZOOLOGIST.ASSISTANT PORTFOLIO MANAGER Work Phone: [facility] 01-23-2025 08:50-0400 SaO2% (BldA) [Mass fraction] 98 % Valery Suppan PROTOZOOLOGIST.ASSISTANT PORTFOLIO MANAGER Work Phone: [facility] 01-23-2025 08:50-0400 Systolic blood pressure 108 mm[Hg] Valery Suppa n PROTOZOOLOGIST.ASSISTANT PORTFOLIO MANAGER Work Phone: [facility] 12-20-2024 11:15-0400 Diastolic blood pressure 58 mm[Hg] Thierno Srivastava DO Work Phone: [facility] 12-20-2024 11:15-0400 Heart rate 69 /min Thierno Srivastava DO Work Phone: [facility] 12-20-2024 11:15-0400 SaO2% (BldA) [Mass fraction] 98 % Thierno Srivastava DO Work Phone: [facility] 12-20-2024 11:15-0400 Systolic blood pressure 115 mm[Hg] Thierno Saucedo O Work Phone: [facility] 11-28-2024 16:11-0400 Body temperature 97.6 [degF] Valery Suppan [employer] WHE[employer] MA[employer]ER Work Phone: [facility] 11-28-2024 16:11-0400 Diastolic blood pressure 59 mm[Hg] Valery Supp an [employer] WHE[employer] MAKER Work Phone: [facility] 11-28-2024 16:11-0400 Heart rate 66 /min Valery Suppan [employer] WHE[employer]ER Work Phone: [facility] 11-28-2024 16:11-0400 Respiratory rate 18 /min Valery Suppan [employer]ER Work Phone: [facility] 11-28-2024 16:11-0400 SaO2% (BldA) [Mass fraction] 100 % Valery Suppan [employer] WHE[employer] MAKER Work Phone: [facility] 11-28-2024 16:11-0400 Systolic blood pressure 123 mm[Hg] Valery Suppa n [employer] WHE[employer] MAKER Work Phone: 1(826)088-384[address] [place] [address] 11-25-2024 18:16-0400 Body height 170.18 cm Valery Suppan [employer] WHE[employer] MAKER Work Phone: 5(450)023-264324 [place] [address] 11-25-2024 18:16-0400 Body mass index (BMI) [Ratio] 25.3 kg/m2 Valery Suppan [employer] MA[employer] Work Phone: 4(522)969-468824 [place] [address] 11-25-2024 18:16-0400 Body weight 73.5 kg Valery Suppan [employer]ER Work Phone: 0(653)340-278024 [place] [address] 11-25-2024 17:12-0400 Body temperature 98.9 [degF] Valery Suppan [employer]ER Work Phone: 3(302)088-635524 [place] [address] 11-25-2024 17:12-0400 Diastolic blood pressure 55 mm[Hg] Valery Supp an [employer]ER Work Phone: 4(123)279-046924 [place] [address] 11-25-2024 17:12-0400 Heart rate 55 /min Valery Suppan [employer]ER Work Phone: 2(499)380-117024 [place] [address] 11-25-2024 17:12-0400 Respiratory rate 17 /min Valery Suppan [employer]ER Work Phone: 2(057)690-193124 [place] [address] 11-25-2024 17:12-0400 SaO2% (BldA) [Mass fraction] 93 % Valery Suppan [employer]ER Work Phone: 9(515)294-297824 [place] [address] 11-25-2024 17:12-0400 Systolic blood pressure 114 mm[Hg] Valery Suppa n [employer] MAKER Work Phone: 9(432)616-228824 [place] [address] 11-25-2024 14:13-0400 Body height 172.72 cm Valery FLANAGAN Work Phone: [facility] 11-25-2024 14:13-0400 Body mass index (BMI) [Ratio] 25.1 kg/m2 Valery FLANAGAN Work Phone: [facility] 11-25-2024 14:13-0400 Body weight 75 kg Valery FLANAGAN Work Phone: [facility] 11-21-2024 10:43-0400 Diastolic blood pressure 57 mm[Hg] Carlin Keenan Work Phone: [facility] 11-21-2024 10:43-0400 Systolic blood pressure 97 mm[Hg] Carlin Keenan Work Phone: [facility] 11-21-2024 10:16-0400 Body temperature 98.1 [degF] Carlin Keenan Work Phone: [facility] 11-21-2024 10:16-0400 Heart rate 81 /min Carlin Ree Work Phone: [facility] 11-21-2024 10:16-0400 SaO2% (BldA) [Mass fraction] 95 % Carlin Keenan Work Phone: [facility] 11-18-2024 13:44-0400 Body height 176.5 cm Harleen Armenta APRN.ASSISTANT PORTFOL[employer] MANAGER Work Phone: [facility] 11-18-2024 13:44-0400 Diastolic blood pressure 48 mm[Hg] Harleen Armenta APRN.ASSISTANT PORTFOL[employer] MANAGER Work Phone: [facility] 11-18-2024 13:44-0400 Heart rate 74 /min Harleen Armenta APRN.ASSISTANT PORTF[employer] MANAGER Work Phone: [facility] 11-18-2024 13:44-0400 SaO2% (BldA) [Mass fraction] 96 % Harleen Armenta APRN.ASSISTANT PORTFOL[employer] MANAGER Work Phone: [facility] 11-18-2024 13:44-0400 Systolic blood pressure 100 mm[Hg] Harleen Armenta APRN.ASSISTANT PORTFOL[employer] MANAGER Work Phone: [facility] 11-10-2024 11:24-0400 Heart rate 74 /min Valery Suppan [employer]ER Work Phone: [facility] 11-10-2024 09:00-0400 Body temperature 98.9 [degF] Valery Suppan [employer]KER Work Phone: [facility] 11-10-2024 09:00-0400 Diastolic blood pressure 46 mm[Hg] Valery Supp an [employer] WHE[employer] MAKER Work Phone: [facility] 11-10-2024 09:00-0400 Respiratory rate 16 /min Valery Suppan [employer] WHE[employer] MAKER Work Phone: [facility] 11-10-2024 09:00-0400 SaO2% (BldA) [Mass fraction] 94 % Valery Suppan [employer] WHE[employer] MAKER Work Phone: [facility] 11-10-2024 09:00-0400 Systolic blood pressure 104 mm[Hg] Valery Suppa n [employer] WHE[employer] MAKER Work Phone: [facility] 11-08-2024 16:08-0400 Body height 172.72 cm Valery Suppan [employer] WHE[employer] MAKER Work Phone: [facility] 11-08-2024 16:08-0400 Body mass index (BMI) [Ratio] 28.5 kg/m2 Valery Suppan [employer]KER Work Phone: [facility] 11-08-2024 16:08-0400 Body weight 85.2 kg Valery Suppan [employer] WHE[employer] MAKER Work Phone: [facility] 11-07-2024 17:00-0400 Diastolic blood pressure 55 mm[Hg] Valery Supp an [employer] WHE[employer] MAKER Work Phone: [facility] 11-07-2024 17:00-0400 Heart rate 98 /min Valery Suppan [employer] WHE[employer] MAKER Work Phone: [facility] 11-07-2024 17:00-0400 Respiratory rate 18 /min Valery Suppan [employer] WHE[employer] MAKER Work Phone: [facility] 11-07-2024 17:00-0400 SaO2% (BldA) [Mass fraction] 98 % Valery Quinteros [employer] WHE[employer] MAKER Work Phone: [facility] 11-07-2024 17:00-0400 Systolic blood pressure 114 mm[Hg] Valery Stallingsa n [employer] WHE[employer] MAKER Work Phone: [facility] 11-07-2024 16:08-0400 Body temperature 98.2 [degF] Valery Suppan [employer] WHE[employer] MAKER Work Phone: [facility] 11-07-2024 13:32-0400 Body height 172.72 cm Valery Suppan [employer] WHE[employer] MAKER Work Phone: [facility] 11-07-2024 13:32-0400 Body mass index (BMI) [Ratio] 28.5 kg/m2 Valery Quinteros [employer]ER Work Phone: [facility] 11-07-2024 13:32-0400 Body weight 85.2 kg Valery Quinteros [employer]ER Work Phone: [facility] 10-07-2024 17:10-0500 SaO2% (BldA) [Mass fraction] 95 % [facility] Comment on above: Order Comment: Specimen Type: ARTERIAL B LOOD SPECIMENOrdering Facility: [facility] Address: [address] [place] [id number] Performed By: #### A LLBG ####TRAN RESPIRATORYCLIA [id number] [id number] [place] [id number] 09-30-2024 10:12-0500 Body height 171.5 cm Pacc 1 Work Phone: [facility] 09-30-2024 10:12-0500 Body mass index (BMI) [Ratio] 25.62 kg/m2 Pacc 1 Work Phone: [facility] 09-30-2024 10:12-0500 Body temperature 97.3 [degF] Pacc 1 Work Phone: [facility] 09-30-2024 10:12-0500 Body weight 75.3 kg Pacc 1 Work Phone: [facility] 09-30-2024 10:12-0500 Diastolic blood pressure 78 mm[Hg] Pacc 1 Work Phone: [facility] 09-30-2024 10:12-0500 Heart rate 85 /min Pacc 1 Work Phone: [facility] 09-30-2024 10:12-0500 Respiratory rate 14 /min Pacc 1 Work Phone: [facility] 09-30-2024 10:12-0500 SaO2% (BldA) [Mass fraction] 97 % Pacc 1 Work Phone: [facility] 09-30-2024 10:12-0500 Systolic blood pressure 130 mm[Hg] Pacc 1 Work Phone: [facility] 09-19-2024 11:51-0500 Body mass index (BMI) [Ratio] 29.05 kg/m2 Kayla Machado MD Work Phone: [facility] 09-19-2024 11:51-0500 Body temperature 97.59 [degF] Kayla Machado MD Work Phone: [facility] 09-19-2024 11:51-0500 Body weight 81.65 kg Kayla Machado MD Work Phone: [facility] 09-19-2024 11:51-0500 Diastolic blood pressure 84 mm[Hg] Kayla Machado MD Work Phone: [facility] 09-19-2024 11:51-0500 Heart rate 77 /min Kayla Machado MD Work Phone: [facility] 09-19-2024 11:51-0500 SaO2% (BldA) [Mass fraction] 100 % Kayla Machado MD Work Phone: [facility] 09-19-2024 11:51-0500 Systolic blood pressure 166 mm[Hg] Kayla Machado MD Work Phone: [facility] 09-16-2024 10:39-0500 Body mass index (BMI) [Ratio] 28.89 kg/m2 Valery Suppan PROTOZOOLOGIST.ASSISTANT PORTFOLIO MANAGER Work Phone: [facility] 09-16-2024 10:39-0500 Body temperature 97.3 [degF] Valery Suppan PROTOZOOLOGIST.ASSISTANT PORTFOLIO MANAGER Work Phone: [facility] 09-16-2024 10:39-0500 Body weight 81.19 kg Valery Suppan PROTOZOOLOGIST.ASSISTANT PORTFOLIO MANAGER Work Phone: [facility] 09-16-2024 10:39-0500 Diastolic blood pressure 64 mm[Hg] Valery Supp an PROTOZOOLOGIST.ASSISTANT PORTFOLIO MANAGER Work Phone: [facility] 09-16-2024 10:39-0500 Heart rate 73 /min Valery Suppan PROTOZOOLOGIST.ASSISTANT PORTFOLIO MANAGER Work Phone: [facility] 09-16-2024 10:39-0500 SaO2% (BldA) [Mass fraction] 97 % Valery Suppan PROTOZOOLOGIST.ASSISTANT PORTFOLIO MANAGER Work Phone: [facility] 09-16-2024 10:39-0500 Systolic blood pressure 132 mm[Hg] Valery Suppa n PROTOZOOLOGIST.ASSISTANT PORTFOLIO MANAGER Work Phone: [facility] 2024 13:34-0500 Body mass index (BMI) [Ratio] 28.73 kg/m2 Kayla Machado MD Work Phone: [facility] 2024 13:34-0500 Body temperature 97.7 [degF] Kayla Machado MD Work Phone: [facility] 2024 13:34-0500 Body weight 80.74 kg Kayla Machado MD Work Phone: [facility] 2024 13:34-0500 Diastolic blood pressure 92 mm[Hg] Kayla Machado MD Work Phone: [facility] 2024 13:34-0500 Heart rate 85 /min Kayla Machado MD Work Phone: [facility] 2024 13:34-0500 SaO2% (BldA) [Mass fraction] 99 % Kayla Machado MD Work Phone: [facility] 2024 13:34-0500 Systolic blood pressure 147 mm[Hg] Kayla Machado MD Work Phone: [facility] 08-30-2024 08:35-0500 Body height 167.6 cm Pacc 1 Work Phone: [facility] 08-30-2024 08:35-0500 Body mass index (BMI) [Ratio] 27.76 kg/m2 Pacc 1 Work Phone: [facility] 08-30-2024 08:35-0500 Body weight 78.02 kg Pacc 1 Work Phone: [facility] 08-30-2024 08:35-0500 Diastolic blood pressure 64 mm[Hg] Pacc 1 Work Phone: [facility] 08-30-2024 08:35-0500 Heart rate 82 /min Pacc 1 Work Phone: [facility] 08-30-2024 08:35-0500 Respiratory rate 14 /min Pacc 1 Work Phone: [facility] 08-30-2024 08:35-0500 SaO2% (BldA) [Mass fraction] 95 % Pacc 1 Work Phone: [facility] 08-30-2024 08:35-0500 Systolic blood pressure 140 mm[Hg] Pacc 1 Work Phone: [facility] 08-02-2024 14:56-0500 Body mass index (BMI) [Ratio] 28.04 kg/m2 Valery Quinteros APRN.CNP Work Phone: [facility] 08-02-2024 14:56-0500 Body weight 78.8 kg Valery Suppan PROTOZOOLOGIST.ASSISTANT PORTFOLIO MANAGER Work Phone: [facility] 08-02-2024 14:56-0500 Diastolic blood pressure 64 mm[Hg] Valery Supp an PROTOZOOLOGIST.ASSISTANT PORTFOLIO MANAGER Work Phone: [facility] 08-02-2024 14:56-0500 Heart rate 87 /min Valery Suppan PROTOZOOLOGIST.ASSISTANT PORTFOLIO MANAGER Work Phone: [facility] 08-02-2024 14:56-0500 Respiratory rate 18 /min Valery Suppan PROTOZOOLOGIST.ASSISTANT PORTFOLIO MANAGER Work Phone: [facility] 08-02-2024 14:56-0500 SaO2% (BldA) [Mass fraction] 96 % Valery Suppan PROTOZOOLOGIST.ASSISTANT PORTFOLIO MANAGER Work Phone: [facility] 08-02-2024 14:56-0500 Systolic blood pressure 136 mm[Hg] Valery Suppa n PROTOZOOLOGIST.ASSISTANT PORTFOLIO MANAGER Work Phone: [facility] 05-26-2024 09:46-0400 Body mass index (BMI) [Ratio] 27.04 kg/m2 Valery Suppan PROTOZOOLOGIST.ASSISTANT PORTFOLIO MANAGER Work Phone: [facility] 05-26-2024 09:46-0400 Body weight 76 kg Valery Suppan PROTOZOOLOGIST.ASSISTANT PORTFOLIO MANAGER Work Phone: [facility] 05-26-2024 09:46-0400 Diastolic blood pressure 76 mm[Hg] Valery Supp an PROTOZOOLOGIST.ASSISTANT PORTFOLIO MANAGER Work Phone: [facility] 05-26-2024 09:46-0400 Heart rate 75 /min Valery Suppan PROTOZOOLOGIST.ASSISTANT PORTFOLIO MANAGER Work Phone: [facility] 05-26-2024 09:46-0400 SaO2% (BldA) [Mass fraction] 98 % Valery Suppan PROTOZOOLOGIST.ASSISTANT PORTFOLIO MANAGER Work Phone: [facility] 05-26-2024 09:46-0400 Systolic blood pressure 128 mm[Hg] Valery Suppa n PROTOZOOLOGIST.ASSISTANT PORTFOLIO MANAGER Work Phone: [facility] 05-23-2024 11:02-0400 Body mass index (BMI) [Ratio] 27.12 kg/m2 Carlin Keenan Work Phone: [facility] 05-23-2024 11:02-0400 Body temperature 98.1 [degF] Carlin Keenan Work Phone: [facility] 05-23-2024 11:02-0400 Body weight 76.2 kg Carlinrandi Keenan Work Phone: [facility] 05-23-2024 11:02-0400 Diastolic blood pressure 75 mm[Hg] Carlin Keenan Work Phone: [facility] 05-23-2024 11:02-0400 Heart rate 91 /min Carlin Keenan Work Phone: [facility] 05-23-2024 11:02-0400 SaO2% (BldA) [Mass fraction] 98 % Carlin Keenan Work Phone: [facility] 05-23-2024 11:02-0400 Systolic blood pressure 128 mm[Hg] Carlin Keenan Work Phone: [facility] 05-06-2024 12:51-0400 Body height 167.6 cm Kayla Machado MD Work Phone: [facility] 05-06-2024 12:51-0400 Body mass index (BMI) [Ratio] 26.79 kg/m2 Kayla Machado MD Work Phone: [facility] 05-06-2024 12:51-0400 Body temperature 98.01 [degF] Kayla Machado MD Work Phone: [facility] 05-06-2024 12:51-0400 Body weight 75.3 kg Kayla Machado MD Work Phone: [facility] 05-06-2024 12:51-0400 Diastolic blood pressure 75 mm[Hg] Kayla Machado MD Work Phone: [facility] 05-06-2024 12:51-0400 Heart rate 88 /min Kayla Machado MD Work Phone: [facility] 05-06-2024 12:51-0400 SaO2% (BldA) [Mass fraction] 99 % Kayla Machado MD Work Phone: [facility] 05-06-2024 12:51-0400 Systolic blood pressure 155 mm[Hg] Kayla Machado MD Work Phone: [facility] 05-02-2024 10:51-0400 Diastolic blood pressure 80 mm[Hg] Valery Supp an PROTOZOOLOGIST.ASSISTANT PORTFOLIO MANAGER Work Phone: [facility] 05-02-2024 10:51-0400 Systolic blood pressure 150 mm[Hg] Valery Suppa n PROTOZOOLOGIST.ASSISTANT PORTFOLIO MANAGER Work Phone: [facility] 05-02-2024 10:05-0400 Body mass index (BMI) [Ratio] 25.46 kg/m2 Valery Suppan PROTOZOOLOGIST.ASSISTANT PORTFOLIO MANAGER Work Phone: [facility] 05-02-2024 10:05-0400 Body weight 74.84 kg Valery Suppan PROTOZOOLOGIST.ASSISTANT PORTFOLIO MANAGER Work Phone: [facility] 05-02-2024 10:05-0400 Heart rate 102 /min Valery Suppan PROTOZOOLOGIST.ASSISTANT PORTFOLIO MANAGER Work Phone: [facility] 05-02-2024 10:05-0400 Respiratory rate 16 /min Valery Suppan PROTOZOOLOGIST.ASSISTANT PORTFOLIO MANAGER Work Phone: [facility] 05-02-2024 10:05-0400 SaO2% (BldA) [Mass fraction] 99 % Valery Suppan PROTOZOOLOGIST.ASSISTANT PORTFOLIO MANAGER Work Phone: [facility] 04-15-2024 08:50-0400 Body height 171.5 cm [facility] 1 Work Phone: [facility] 04-15-2024 08:50-0400 Body mass index (BMI) [Ratio] 25.62 kg/m2 [facility] 1 Work Phone: [facility] 04-15-2024 08:50-0400 Body temperature 97.9 [degF] [facility] 1 Work Phone: [facility] 04-15-2024 08:50-0400 Body weight 75.3 kg [facility] 1 Work Phone: [facility] 04-15-2024 08:50-0400 Diastolic blood pressure 68 mm[Hg] [facility] 1 Work Phone: [facility] 04-15-2024 08:50-0400 Heart rate 83 /min [facility] 1 Work Phone: [facility] 04-15-2024 08:50-0400 Respiratory rate 14 /min [facility] 1 Work Phone: [facility] 04-15-2024 08:50-0400 SaO2% (BldA) [Mass fraction] 98 % [facility] 1 Work Phone: [facility] 04-15-2024 08:50-0400 Systolic blood pressure 132 mm[Hg] [facility] 1 Work Phone: [facility] 03-21-2024 12:31-0400 Body mass index (BMI) [Ratio] 25.15 kg/m2 Valery Suppan PROTOZOOLOGIST.ASSISTANT PORTFOLIO MANAGER Work Phone: [facility] 03-21-2024 12:31-0400 Body temperature 98.1 [degF] Valery Suppan PROTOZOOLOGIST.ASSISTANT PORTFOLIO MANAGER Work Phone: [facility] 03-21-2024 12:31-0400 Body weight 73.94 kg Valery Suppan PROTOZOOLOGIST.ASSISTANT PORTFOLIO MANAGER Work Phone: [facility] 03-21-2024 12:31-0400 Diastolic blood pressure 56 mm[Hg] Valery Supp an PROTOZOOLOGIST.ASSISTANT PORTFOLIO MANAGER Work Phone: [facility] 03-21-2024 12:31-0400 Heart rate 88 /min Valery Suppan PROTOZOOLOGIST.ASSISTANT PORTFOLIO MANAGER Work Phone: [facility] 03-21-2024 12:31-0400 SaO2% (BldA) [Mass fraction] 99 % Valery Suppan PROTOZOOLOGIST.ASSISTANT PORTFOLIO MANAGER Work Phone: [facility] 03-21-2024 12:31-0400 Systolic blood pressure 122 mm[Hg] Valery vernon PROTOZOOLOGIST.ASSISTANT PORTFOLIO MANAGER Work Phone: [facility] 03-02-2024 10:01-0400 Body height 171.5 cm Jeanie Amalfitano DO Work Phone: [facility] 03-02-2024 10:01-0400 Body mass index (BMI) [Ratio] 25.38 kg/m2 Jeanie Amalfitano DO Work Phone: [facility] 03-02-2024 10:01-0400 Body weight 74.6 kg Jeanie Amalfitano DO Work Phone: [facility] 03-02-2024 10:01-0400 Diastolic blood pressure 60 mm[Hg] Jeanie Amalfitano DO Work Phone: [facility] 03-02-2024 10:01-0400 Heart rate 84 /min Jeanie Amalfitano DO Work Phone: [facility] 03-02-2024 10:01-0400 SaO2% (BldA) [Mass fraction] 99 % Jeanie Amalfitano DO Work Phone: [facility] 03-02-2024 10:01-0400 Systolic blood pressure 128 mm[Hg] Jeanie Amalfitano DO Work Phone: [facility] 02-23-2024 11:37-0400 Body mass index (BMI) [Ratio] 25.46 kg/m2 NA Saini PA-C Work Phone: [facility] 02-23-2024 11:37-0400 Body weight 74.84 kg NA Saini PA-C Work Phone: [facility] 02-23-2024 11:37-0400 Diastolic blood pressure 80 mm[Hg] NA Saini PA-C Work Phone: [facility] 02-23-2024 11:37-0400 Heart rate 81 /min NA Saini PA-C Work Phone: [facility] 02-23-2024 11:37-0400 Respiratory rate 20 /min NA Saini PA-C Work Phone: [facility] 02-23-2024 11:37-0400 SaO2% (BldA) [Mass fraction] 96 % NA Saini PA-C Work Phone: [facility] 02-23-2024 11:37-0400 Systolic blood pressure 140 mm[Hg] NA Saini PA-C Work Phone: [facility] 01-07-2024 11:24-0400 Body mass index (BMI) [Ratio] 26.08 kg/m2 NA Saini PA-C Work Phone: [facility] 01-07-2024 11:24-0400 Body weight 76.66 kg NA Saini PA-C Work Phone: [facility] 01-07-2024 11:24-0400 Diastolic blood pressure 80 mm[Hg] NA Saini PA-C Work Phone: [facility] 01-07-2024 11:24-0400 Heart rate 91 /min NA Saini PA-C Work Phone: [facility] 01-07-2024 11:24-0400 Respiratory rate 20 /min NA Saini PA-C Work Phone: [facility] 01-07-2024 11:24-0400 SaO2% (BldA) [Mass fraction] 98 % NA Saini PA-C Work Phone: [facility] 01-07-2024 11:24-0400 Systolic blood pressure 132 mm[Hg] NA Saini PA-C Work Phone: [facility] 10-29-2023 13:57-0500 Body height 171.5 cm Brittani Mace APRN.ASSISTANT PORTFOLIO MANAGER Work Phone: [facility] 10-29-2023 13:57-0500 Body weight 75.9 kg Brittani Mace APRN.ASSISTANT PORTFOLIO MANAGER Work Phone: [facility] 10-29-2023 13:57-0500 Diastolic blood pressure 79 mm[Hg] Brittani Cyril PROTOZOOLOGIST.ASSISTANT PORTFOLIO MANAGER Work Phone: [facility] 10-29-2023 13:57-0500 Heart rate 76 /min Brittani Mace PROTOZOOLOGIST.ASSISTANT PORTFOLIO MANAGER Work Phone: [facility] 10-29-2023 13:57-0500 SaO2% (BldA) [Mass fraction] 97 % Brittani Mace PROTOZOOLOGIST.ASSISTANT PORTFOLIO MANAGER Work Phone: [facility] 10-29-2023 13:57-0500 Systolic blood pressure 139 mm[Hg] Brittani Mace PROTOZOOLOGIST.ASSISTANT PORTFOLIO MANAGER Work Phone: [facility] 10-20-2023 10:38-0500 Diastolic blood pressure 74 mm[Hg] Thierno Srivastava DO Work Phone: [facility] 10-20-2023 10:38-0500 Heart rate 82 /min Thierno Srivastava DO Work Phone: [facility] 10-20-2023 10:38-0500 SaO2% (BldA) [Mass fraction] 100 % Thiernokatie Srivastava DO Work Phone: [facility] 10-20-2023 10:38-0500 Systolic blood pressure 122 mm[Hg] Thierno Saucedo O Work Phone: [facility] 10-13-2023 11:42-0500 Body height 171.5 cm Kieran John PA-C Work Phone: [facility] 10-13-2023 11:42-0500 Body temperature 97.3 [degF] Kieran John PA-C Work Phone: [facility] 10-13-2023 11:42-0500 Body weight 76.66 kg Kieran John PA-C Work Phone: [facility] 10-13-2023 11:42-0500 Diastolic blood pressure 68 mm[Hg] Kieran John PA-C Work Phone: [facility] 10-13-2023 11:42-0500 Heart rate 86 /min Kieran John PA-C Work Phone: [facility] 10-13-2023 11:42-0500 Respiratory rate 16 /min Kieran Ojhn PA-C Work Phone: [facility] 10-13-2023 11:42-0500 SaO2% (BldA) [Mass fraction] 98 % Kieran John PA-C Work Phone: [facility] 10-13-2023 11:42-0500 Systolic blood pressure 136 mm[Hg] Ikeran John PA-C Work Phone: [facility] 10-08-2023 08:34-0500 Body weight 75.3 kg NA Saini PA-C Work Phone: [facility] 10-08-2023 08:34-0500 Diastolic blood pressure 70 mm[Hg] NA Saini PA-C Work Phone: [facility] 10-08-2023 08:34-0500 Heart rate 78 /min NA Saini PA-C Work Phone: [facility] 10-08-2023 08:34-0500 Respiratory rate 16 /min NA Saini PA-C Work Phone: [facility] 10-08-2023 08:34-0500 SaO2% (BldA) [Mass fraction] 98 % NA Saini PA-C Work Phone: [facility] 10-08-2023 08:34-0500 Systolic blood pressure 128 mm[Hg] NA Saini PA-C Work Phone: [facility] 09-26-2023 08:23-0500 Heart rate 63 /min PA NA Saini PA Work Phone: [facility] 09-26-2023 08:21-0500 Body temperature 97.8 [degF] PA NA Saini PA Work Phone: [facility] 09-26-2023 08:21-0500 Diastolic blood pressure 79 mm[Hg] PA NA Saini PA Work Phone: [facility] 09-26-2023 08:21-0500 Respiratory rate 14 /min PA NA Saini PA Work Phone: [facility] 09-26-2023 08:21-0500 SaO2% (BldA) [Mass fraction] 94 % PA NA Saini PA Work Phone: [facility] 09-26-2023 08:21-0500 Systolic blood pressure 159 mm[Hg] PA NA Saini PA Work Phone: [facility] 09-26-2023 05:47-0500 Body mass index (BMI) [Ratio] 27.1 kg/m2 PA NA Saini PA Work Phone: [facility] 09-26-2023 05:47-0500 Body weight 78.6 kg PA NA Saini PA Work Phone: [facility] 09-24-2023 18:16-0500 Body height 170.18 cm PA NA Saini PA Work Phone: [facility] 09-24-2023 16:42-0500 Body temperature 98.2 [degF] PA NA Saini PA Work Phone: [facility] 09-24-2023 16:42-0500 Diastolic blood pressure 72 mm[Hg] PA NA Saini PA Work Phone: [facility] 09-24-2023 16:42-0500 Heart rate 96 /min PA NA Saini PA Work Phone: [facility] 09-24-2023 16:42-0500 Respiratory rate 18 /min PA NA Saini PA Work Phone: [facility] 09-24-2023 16:42-0500 SaO2% (BldA) [Mass fraction] 96 % PA NA Saini PA Work Phone: [facility] 09-24-2023 16:42-0500 Systolic blood pressure 116 mm[Hg] PA NA Saini PA Work Phone: [facility] 09-24-2023 14:02-0500 Body height 170.18 cm PA NA Saini PA Work Phone: [facility] 09-24-2023 14:02-0500 Body mass index (BMI) [Ratio] 27.3 kg/m2 PA NA Saini PA Work Phone: [facility] 09-24-2023 14:02-0500 Body weight 79.1 kg PA NA Saini PA Work Phone: [facility] 09-24-2023 13:41-0500 Diastolic blood pressure 73 mm[Hg] NA Saini PA-C Work Phone: [facility] 09-24-2023 13:41-0500 Heart rate 74 /min NA Saini PA-C Work Phone: [facility] 09-24-2023 13:41-0500 SaO2% (BldA) [Mass fraction] 98 % NA Saini PA-C Work Phone: [facility] 09-24-2023 13:41-0500 Systolic blood pressure 129 mm[Hg] NA Saini PA-C Work Phone: [facility] 05-28-2023 10:20-0400 Body weight 73.03 kg NA Saini PA-C Work Phone: [facility] 05-28-2023 10:20-0400 Diastolic blood pressure 84 mm[Hg] NA Saini PA-C Work Phone: [facility] 05-28-2023 10:20-0400 Heart rate 87 /min NA Saini PA-C Work Phone: [facility] 05-28-2023 10:20-0400 Respiratory rate 16 /min NA Saini PA-C Work Phone: [facility] 05-28-2023 10:20-0400 SaO2% (BldA) [Mass fraction] 98 % NA Saini PA-C Work Phone: [facility] 05-28-2023 10:20-0400 Systolic blood pressure 128 mm[Hg] NA Saini PA-C Work Phone: [facility] 03-03-2023 13:32-0400 Body height 170.2 cm Jeanie Tavares DO Work Phone: [facility] 03-03-2023 13:32-0400 Body weight 74.71 kg Jeanie Tavares DO Work Phone: [facility] 03-03-2023 13:32-0400 Diastolic blood pressure 80 mm[Hg] Jeanie Tavares DO Work Phone: [facility] 03-03-2023 13:32-0400 Heart rate 78 /min Jeanie Tavares DO Work Phone: [facility] 03-03-2023 13:32-0400 SaO2% (BldA) [Mass fraction] 98 % Jeanie Tavares DO Work Phone: [facility] 03-03-2023 13:32-0400 Systolic blood pressure 148 mm[Hg] Jeanie Tavares DO Work Phone: [facility] 12-29-2022 13:43-0400 Body weight 75.3 kg NA Saini PA-C Work Phone: [facility] 12-29-2022 13:43-0400 Diastolic blood pressure 68 mm[Hg] NA Saini PA-C Work Phone: [facility] 12-29-2022 13:43-0400 Heart rate 76 /min NA Saini PA-C Work Phone: [facility] 12-29-2022 13:43-0400 Respiratory rate 14 /min NA Saini PA-C Work Phone: [facility] 12-29-2022 13:43-0400 SaO2% (BldA) [Mass fraction] 98 % NA Saini PA-C Work Phone: [facility] 12-29-2022 13:43-0400 Systolic blood pressure 130 mm[Hg] NA Saini PA-C Work Phone: [facility] 09-30-2022 12:55-0500 Body weight 78.02 kg NA Saini PA-C Work Phone: [facility] 09-30-2022 12:55-0500 Diastolic blood pressure 76 mm[Hg] NA Saini PA-C Work Phone: [facility] 09-30-2022 12:55-0500 Heart rate 84 /min NA Saini PA-C Work Phone: [facility] 09-30-2022 12:55-0500 Respiratory rate 16 /min NA Saini PA-C Work Phone: [facility] 09-30-2022 12:55-0500 SaO2% (BldA) [Mass fraction] 97 % NA Saini PA-C Work Phone: [facility] 09-30-2022 12:55-0500 Systolic blood pressure 144 mm[Hg] NA Saini PA-C Work Phone: [facility] 08-04-2022 09:16-0500 Body weight 75.3 kg NA Saini PA-C Work Phone: [facility] 08-04-2022 09:16-0500 Diastolic blood pressure 76 mm[Hg] NA Saini PA-C Work Phone: [facility] 08-04-2022 09:16-0500 Heart rate 74 /min NA Saini PA-C Work Phone: [facility] 08-04-2022 09:16-0500 Respiratory rate 16 /min NA Saini PA-C Work Phone: [facility] 08-04-2022 09:16-0500 SaO2% (BldA) [Mass fraction] 97 % NA Saini PA-C Work Phone: [facility] 08-04-2022 09:16-0500 Systolic blood pressure 144 mm[Hg] NA Saini PA-C Work Phone: [facility] 06-03-2022 13:43-0400 Body temperature 99.19 [degF] NA Saini PA-C Work Phone: [facility] 06-03-2022 13:43-0400 Body weight 73.03 kg NA Saini PA-C Work Phone: [facility] 06-03-2022 13:43-0400 Diastolic blood pressure 70 mm[Hg] NA Saini PA-C Work Phone: [facility] 06-03-2022 13:43-0400 Heart rate 86 /min NA Saini PA-C Work Phone: [facility] 06-03-2022 13:43-0400 Respiratory rate 12 /min NA Saini PA-C Work Phone: [facility] 06-03-2022 13:43-0400 SaO2% (BldA) [Mass fraction] 98 % NA Saini PA-C Work Phone: [facility] 06-03-2022 13:43-0400 Systolic blood pressure 130 mm[Hg] NA Saini PA-C Work Phone: [facility] 05-02-2022 08:17-0400 Body weight 72.18 kg NA Saini PA-C Work Phone: [facility] 05-02-2022 08:17-0400 Diastolic blood pressure 76 mm[Hg] NA Saini PA-C Work Phone: [facility] 05-02-2022 08:17-0400 Heart rate 82 /min NA Saini PA-C Work Phone: [facility] 05-02-2022 08:17-0400 Respiratory rate 18 /min NA Saini PA-C Work Phone: [facility] 05-02-2022 08:17-0400 SaO2% (BldA) [Mass fraction] 99 % NA Saini PA-C Work Phone: [facility] 05-02-2022 08:17-0400 Systolic blood pressure 118 mm[Hg] NA Saini PA-C Work Phone: [facility] 03-06-2022 14:13-0400 Body temperature 97.81 [degF] NA Saini PA-C Work Phone: [facility] 03-06-2022 14:13-0400 Body weight 73.03 kg NA Saini PA-C Work Phone: [facility] 03-06-2022 14:13-0400 Diastolic blood pressure 72 mm[Hg] NA Saini PA-C Work Phone: [facility] 03-06-2022 14:13-0400 Heart rate 78 /min NA Saini PA-C Work Phone: [facility] 03-06-2022 14:13-0400 Respiratory rate 16 /min NA Saini PA-C Work Phone: [facility] 03-06-2022 14:13-0400 SaO2% (BldA) [Mass fraction] 97 % NA Saini PA-C Work Phone: [facility] 03-06-2022 14:13-0400 Systolic blood pressure 126 mm[Hg] NA Saini PA-C Work Phone: [facility] 02-12-2022 14:39-0400 Body height 170.2 cm Jeanie Amalfitano DO Work Phone: [facility] 02-12-2022 14:39-0400 Body weight 75.34 kg Jeanie Amalfitviraj DO Work Phone: [facility] 02-12-2022 14:39-0400 Diastolic blood pressure 74 mm[Hg] Jeanie Amalfitviraj DO Work Phone: [facility] 02-12-2022 14:39-0400 Heart rate 86 /min Jeanie Montesfitviraj DO Work Phone: [facility] 02-12-2022 14:39-0400 SaO2% (BldA) [Mass fraction] 97 % Jeanie Montesfitviraj DO Work Phone: [facility] 02-12-2022 14:39-0400 Systolic blood pressure 144 mm[Hg] Jeanie Tavares DO Work Phone: [facility] Encounters Encounter Date Encounter Type Care Provider Facility Start: 02-16-2025 End: 02-16-2025 ambulatory Valery A Suppan PROTOZOOLOGIST.ASSISTANT PORTFOLIO MANAGER Work Phone: [facility] [place] Comment on above: Fall; Laceration Start: 02-16-2025 End: 02-16-2025 Emergency department patient visit Valerytheodore Stallingsan [employer]EVE WHEEL MAKER Work Phone: -Emergency Department Work Phone: Start: 02-13-2025 End: 02-14-2025 Follow-up encounter Valery A Suppan PROTOZOOLOGIST.ASSISTANT PORTFOLIO MANAGER Work Phone: [facility] Start: 02-13-2025 End: 02-13-2025 ambulatory VALERY A SUPPAN Facility:[facility] Start: 02-07-2025 End: 02-07-2025 Refill Valery A Suppan PROTOZOOLOGIST.ASSISTANT PORTFOLIO MANAGER Work Phone: [facility] [place] Comment on above: Refill Request Start: 02-01-2025 End: 02-01-2025 ambulatory Valery A Suppan PROTOZOOLOGIST.ASSISTANT PORTFOLIO MANAGER Work Phone: [facility] [place] Comment on above: leg wound Start: 02-01-2025 End: 02-01-2025 Telephone encounter Ryan Alonzo MD Work Phone: Orthopaedics Start: 01-30-2025 End: 01-30-2025 Telephone encounter Valery A Suppan PROTOZOOLOGIST.ASSISTANT PORTFOLIO MANAGER Work Phone: [facility] [place] Comment on above: Results; Appointment Start: 01-23-2025 End: 01-23-2025 ambulatory VALERY A SUPPAN Facility:[facility] Start: 01-23-2025 End: 01-23-2025 Office outpatient visit 25 minutes Valery A Suppan PROTOZOOLOGIST.ASSISTANT PORTFOLIO MANAGER Work Phone: [facility] [place] Comment on above: Pre-diabetes (Primar y Dx); BPH with obstruction/lower urinary tract symptoms; Primary osteoarthritis of right hip; Spinal stenosis, lumbar region, without neurogenic claudication; Iron deficiency anemia, unspecified iron deficiency anemia type; Dyspepsia; Dysphagia, unspecified type; Fatigue, unspecified type; Screening for lipid disorders; Coronary artery disease involving [place] coronary artery of [place] heart without angina pectoris Start: 01-23-2025 End: 01-23-2025 ambulatory VALERY A SUPPAN Facility:[facility] Start: 01-18-2025 End: 01-18-2025 ambulatory Valery A Suppan PROTOZOOLOGIST.ASSISTANT PORTFOLIO MANAGER Work Phone: [facility] Comment on above: Head Injury Start: 12-26-2024 End: 12-26-2024 Telephone encounter Valery A Suppan PROTOZOOLOGIST.ASSISTANT PORTFOLIO MANAGER Work Phone: [facility] Comment on above: Patient Question Start: 12-20-2024 End: 12-20-2024 Patient encounter procedure Thierno Srivastava DO Work Phone: Vascular Surgery Comment on above: 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) Start: 12-20-2024 End: 12-20-2024 ambulatory VALERY A SUPPAN Facility:[facility] Start: 12-16-2024 End: 12-16-2024 ambulatory VALERY A SUPPAN Facility:[facility] Start: 12-13-2024 End: 12-13-2024 Refill Valery A Suppan PROTOZOOLOGIST.ASSISTANT PORTFOLIO MANAGER Work Phone: [facility] Comment on above: Home Health Point of Care Results; Refill Request Start: 12-09-2024 End: 12-12-2024 Telephone encounter Valery A Suppan PROTOZOOLOGIST.ASSISTANT PORTFOLIO MANAGER Work Phone: [facility] Comment on above: Home Health Orders Follow HH Start: 12-09-2024 ambulatory Valery Suppan Facil ity:[facility] Start: 12-09-[address] Ana Hamilton MD -[facility] Start: 12-05-2024 ambulatory Valery Suppan Facil ity:[facility] Start: 12-05-[address] Ana Hamilton MD -[facility] Start: 11-30-2024 End: 11-30-2024 Postop follow up visit related to original px Ryan Alonzo MD Work Phone: Orthopaedics Comment on above: Status post right hi p replacement (Primary Dx) Start: 11-30-2024 End: 11-30-2024 ambulatory VALERY A SUPPAN Facility:[facility] Start: 11-30-2024 End: 11-30-2024 Subsequent hospital visit by physician [facility] Work Phone: Radiology Comment on above: Status post right hi p replacement [[id number]] Start: 11-29-2024 ambulatory Ana SILVERMAN Facili ty:[facility] Start: 11-29-[address] Ana Hamilton MD -[facility] Start: 11-28-2024 Non-patient / Non-visit Dr. Fiorella alba MD -[facility] Work Phone: Start: 11-28-2024 End: 11-28-2024 Telephone encounter Valery A Suppan PROTOZOOLOGIST.ASSISTANT PORTFOLIO MANAGER Work Phone: [facility] [place] Start: 11-27-2024 Non-patient / Non-visit Dr. Artie craig MD -[facility] Work Phone: Start: 11-26-2024 Non-patient / Non-visit Dr. Lori Barrientos MD -[facility] Start: 11-26-2024 Non-patient / Non-visit Dr. Artie craig MD -[facility] Work Phone: Start: 11-25-2024 Non-patient / Non-visit Dr. Lori Fragoso MD -[facility] Work Phone: Start: 11-25-2024 End: 11-28-2024 ambulatory Valery Suppan Facility:[facility] Start: 11-25-2024 End: 11-28-2024 Evaluation and management of inpatient Dr. Ju Fragoso MD -Progressive Care Unit Work Phone: Start: 11-25-2024 End: 11-28-2024 observation encounter Valery Suppan [employer] Work Phone: [facility] Work Phone: Start: 11-25-2024 ambulatory Valery Suppan Facil ity:[facility] Start: 11-25-[address] Ana Hamilton MD -[facility] Start: 11-21-2024 End: 11-21-2024 Patient encounter procedure Carlin Keenan Work Phone: Hematology/Oncology Start: 11-21-2024 End: 11-21-2024 ambulatory Carlin Keenan Work Phone: Hematology/Oncology Comment on above: Anemia, unspecified type (Primary Dx) Start: 11-21-[address] Ana Hamilton MD -[facility] Start: 11-18-2024 End: 11-18-2024 ambulatory VALERY A SUPPAN Facility:[facility] Start: 11-18-2024 End: 11-18-2024 Patient encounter procedure Harleen Aaron JOVELASSISTANT PORTFOLIO MANAGER Work Phone: Cardiology Comment on above: Essential hypertensi on, benign (Primary Dx); Coronary artery disease involving [place] coronary artery of [place] heart without angina pectoris; Paroxysmal A-fib (HCC) Start: 11-16-2024 End: 11-16-2024 Orders Only Ryan Alonzo MD Work Phone: Orthopaedics Comment on above: Status post right hi p replacement Start: 11-16-[address] Ana Hamilton MD -[facility] Start: 11-14-2024 ambulatory Valery Suppan Facil ity:[facility] Start: 11-14-[address] Ana Hamilton MD -[facility] Start: 11-11-2024 ambulatory Valery Suppan Facil ity:[facility] Start: 11-11-[address] Ana Hamilton MD -[facility] Start: 11-10-2024 Non-patient / Non-visit Dr. Wade [facility] Work Phone: Start: 11-09-2024 Non-patient / Non-visit Dr. Lori Fragoso MD -[facility] Work Phone: Start: 11-08-2024 Non-patient / Non-visit Slad[facility] Start: 11-08-2024 End: 11-08-2024 Telephone encounter Valery Quinteros PROTOZOOLOGIST.ASSISTANT PORTFOLIO MANAGER Work Phone: [facility] [place] Start: 11-08-2024 Non-patient / Non-visit Dr. Lori Fragoso MD -[facility] Work Phone: Start: 11-08-2024 ambulatory Valery Suppan Facil ity:[facility] Start: 11-08-2024 Non-patient / Non-visit [facility]. Zay[facility] Start: 11-07-2024 Non-patient / Non-visit Sladetheo [facility] Start: 11-07-2024 End: 11-10-2024 Evaluation and management of inpatient Dr. Andrey Mitchell [facility] Work Phone: Start: 11-07-2024 End: 11-07-2024 ambulatory Valery Suppan [employer] WHE[employer] Work Phone: [facility] Work Phone: Start: 11-07-2024 End: 11-07-[address] Ana Hamilton MD -[facility] Start: 11-07-[address] Ana Hamilton MD -[facility] Start: 11-07-2024 End: 11-07-2024 ambulatory Valery Suppan Facility:[facility] Start: 10-31-2024 End: 11-01-2024 Telephone encounter Ryan Alonzo MD Work Phone: Orthopaedics Comment on above: Patient Question Thrombocytopenia (HC C) (Primary Dx); Anemia, unspecified type Start: 10-27-2024 End: 10-27-2024 ambulatory VALERY A SUPPAN Facility:[facility] Start: 10-27-2024 End: 10-27-2024 Nursing evaluation of patient and report Almas Melgar RN Work Phone: Orthopaedics Comment on above: Status post right hi p replacement (Primary Dx) Start: 10-26-2024 ambulatory Valery Suppan Facil ity:[facility] Start: 10-26-[address] Ana Hamilton MD -[facility] Start: 10-21-2024 End: 10-21-2024 Telephone encounter Ryan Alonzo MD Work Phone: [facility] Comment on above: Appointment Start: 10-20-2024 End: 10-20-2024 Nursing evaluation of patient and report Almas Melgar RN Work Phone: Orthopaedics Comment on above: Status post right hi p replacement (Primary Dx) Start: 10-20-2024 End: 10-20-2024 ambulatory RYAN ALONZO Facility:[facility] Start: 10-20-2024 End: 10-20-2024 Subsequent hospital visit by physician [facility] Work Phone: Radiology Comment on above: Status post right hi p replacement [Z96.641] Start: 10-17-2024 ambulatory Valery Suppan Facil ity:[facility] Start: 10-17-[address] Ana Hamilton MD -[facility] Start: 10-14-2024 End: 10-14-2024 Telephone encounter Liza Montgomery LPN Work Phone: [facility] Comment on above: Home Care (HHc refer ral) Start: 10-08-2024 End: 10-08-2024 Telephone encounter Elle Thomas [facility] Comment on above: Home Care (CONFIRMAT ION CALL) Opened In Error Start: 10-07-2024 End: 10-14-2024 Evaluation and management of inpatient RAVINDRAEVAN COY CAMI Facility:[facility] Start: 10-06-2024 End: 10-06-2024 Orders Only Ryan Alonzo MD Work Phone: Orthopaedics Comment on above: Status post right hi p replacement (Primary Dx) Start: 09-30-2024 End: 09-30-2024 Admission to establishment [facility] [place] [facility] Work Phone: Pre Anesthesia Start: 09-30-2024 End: 09-30-2024 ambulatory VALERY QUINTEROS Facility:[facility] Start: 09-30-2024 End: 09-30-2024 Anesthesia consultation Pac [place] [facility] Work Phone: Pre Anesthesia Comment on above: Pre-operative examin ation (Primary Dx); Primary insomnia; 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 pectoris ([facility]); Essential hypertension, benign; Hypertensive kidney disease with stage 3a chronic kidney disease ([facility]); Mixed hyperlipidemia; Paroxysmal A-fib ([facility]); RBBB; Gastroesophageal reflux disease, unspecified whether esophagitis present; Serum calcium elevated; Chronic ITP (idiopathic thrombocytopenia) ([facility]); Iron deficiency anemia, unspecified iron deficiency anemia type; Impaired fasting glucose; Bilateral carotid artery stenosis; TIA (transient ischemic attack) Start: 09-30-2024 End: 09-30-2024 Preprocedural examination done Pac [place] [facility] Work Phone: [facility] Start: 09-23-2024 End: 09-23-2024 ambulatory Valery Quinteros PROTOZOOLOGIST.ASSISTANT PORTFOLIO MANAGER Work Phone: Family Medicine [place] Comment on above: Cough Start: 09-21-2024 End: 09-21-2024 Telephone encounter Ryan Alonzo MD Work Phone: Orthopaedics Start: 09-20-2024 End: 09-20-2024 Orders Only Ryan Alonzo MD Work Phone: Orthopaedics Comment on above: Status post right hi p replacement (Primary Dx) Start: 09-19-2024 End: 09-19-2024 Patient encounter procedure Kayla Machado MD Work Phone: Hematology/Oncology Start: 09-19-2024 End: 09-19-2024 ambulatory Kayla Machado MD Work Phone: Hematology/Oncology Comment on above: Thrombocytopenia (HC C) (Primary Dx) Start: 09-16-2024 End: 09-16-2024 ambulatory VALERY A SUPPAN Facility:[facility] Start: 09-16-2024 End: 09-16-2024 Office outpatient visit 25 minutes Valery A Suppan PROTOZOOLOGIST.ASSISTANT PORTFOLIO MANAGER Work Phone: [facility] [place] Comment on above: Atherosclerosis of n ative coronary artery of [place] heart without angina pectoris (Primary Dx); Iron deficiency anemia, unspecified iron deficiency anemia type; Dyspepsia; Dysphagia, unspecified type; Primary osteoarthritis of right hip; Spinal stenosis, lumbar region, without neurogenic claudication; Chronic right hip pain; Thrombocytopenia (HCC); Dizziness Start: 2024 End: 2024 Refill Valery A Suppan PROTOZOOLOGIST.ASSISTANT PORTFOLIO MANAGER Work Phone: [facility] Comment on above: Refill Request Thrombocytopenia (HC C) (Primary Dx) Start: 09-13-2024 End: 2024 Telephone encounter Kayla Machado MD Work Phone: Hematology/Oncology Comment on above: Low platelets Start: 09-13-2024 End: 09-13-2024 ambulatory RYAN ALONZO Facility:[facility] Start: 09-07-2024 End: 09-07-2024 Telephone encounter Valery A Suppan PROTOZOOLOGIST.ASSISTANT PORTFOLIO MANAGER Work Phone: [facility] Comment on above: Patient Question Start: 09-05-2024 End: 09-05-2024 Refill Valery A Suppan PROTOZOOLOGIST.ASSISTANT PORTFOLIO MANAGER Work Phone: [facility] Comment on above: Refill Request Start: 08-31-2024 End: 08-31-2024 Telephone encounter Valery A Suppan PROTOZOOLOGIST.ASSISTANT PORTFOLIO MANAGER Work Phone: [address] [place] [address] Comment on above: Pre-Op Teaching Start: 08-30-2024 Encounter for other preprocedural examination VALERY SUPPAN [facility] Start: 08-30-2024 End: 08-30-2024 Admission to establishment Pac [place] 1 Work Phone: Pre Anesthesia Start: 08-30-2024 End: 08-30-2024 ambulatory VALERY QUINTEROS Facility:[facility] Start: 08-30-2024 End: 08-30-2024 Anesthesia consultation Pac [place] 1 Work Phone: Pre Anesthesia Comment on above: Pre-operative examin ation (Primary Dx); 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); Hypertensive kidney disease with stage 3a chronic kidney disease (HCC); Stage 3a chronic kidney disease (HCC); Mixed hyperlipidemia; Paroxysmal A-fib (HCC); Gastroesophageal reflux disease, unspecified whether esophagitis present; Chronic ITP (idiopathic thrombocytopenia) (HCC); Iron deficiency anemia, unspecified iron deficiency anemia type; Impaired fasting glucose; Bilateral carotid artery stenosis; TIA (transient ischemic attack); Primary insomnia; RBBB Start: 08-30-2024 End: 08-30-2024 Preprocedural examination done [facility] [place] 1 Work Phone: [facility] Start: 08-25-2024 End: 08-25-2024 [facility] Start: 08-25-2024 End: 08-25-2024 Patient encounter procedure Christina Loz[facility] [place] Comment on above: Population Health Na vigation Outreach ([facility] Start: 08-04-2024 ambulatory VALERY QUINTEROS Fac ility:[facility] Start: 08-04-2024 End: 08-04-2024 Subsequent hospital visit by physician [facility] Radiology Comment on above: Primary osteoarthrit is of right hip [M16.11] Start: 08-02-2024 End: 08-02-2024 Office outpatient visit 25 minutes Valery Quinteros PROTOZOOLOGIST.ASSISTANT PORTFOLIO MANAGER Work Phone: [facility] [place] Comment on above: Atherosclerosis of n ative coronary artery of [place] heart without angina pectoris (Primary Dx); Screening for depression; Encounter for screening examination for other mental health and behavioral disorders; Paroxysmal A-fib (HCC); Essential hypertension, benign; Gastroesophageal reflux disease without esophagitis; Mixed hyperlipidemia; Hypertensive kidney disease with stage 3a chronic kidney disease (HCC); [place] Start: 08-02-2024 End: 08-02-2024 ambulatory VALERY A SUPPAN Facility:[facility] Start: 08-02-2024 End: 09-12-2024 Telephone encounter Valery A Suppan PROTOZOOLOGIST.ASSISTANT PORTFOLIO MANAGER Work Phone: [facility] [place] Comment on above: Patient Assistance Start: 07-28-2024 End: 07-28-2024 Telephone encounter Valery A Suppan PROTOZOOLOGIST.ASSISTANT PORTFOLIO MANAGER Work Phone: [facility] [place] Comment on above: Medication Request Start: 07-13-2024 End: 07-13-2024 ambulatory VALERY A SUPPAN Facility:[facility] Start: 07-13-2024 End: 07-13-2024 Patient encounter procedure Asif Gonzales PA-C Work Phone: Orthopaedics Comment on above: Primary osteoarthrit is of right hip (Primary Dx); Pre-op examination Primary osteoarthrit is of right hip (Primary Dx) Start: 07-13-2024 End: 07-13-2024 Preprocedural examination done Asif Gonzales PA-C Work Phone: [facility] Start: 07-07-2024 End: 07-07-2024 ambulatory Beryl Kuhn RN Work Phone: [employer] Comment on above: community monitoring ([facility] telephonic/) Start: 06-09-2024 End: 06-09-2024 ambulatory Lissette Cantu RN Work Phone: [employer] Comment on above: community monitoring outreach ([facility] outreach) Start: 05-26-2024 End: 05-26-2024 ambulatory VALERY A SUPPAN Facility:[facility] Start: 05-26-2024 End: 05-26-2024 Office outpatient visit 25 minutes Valery A Suppan PROTOZOOLOGIST.ASSISTANT PORTFOLIO MANAGER Work Phone: [facility] [place] Comment on above: Primary osteoarthrit is of right hip (Primary Dx); Iron deficiency anemia, unspecified iron deficiency anemia type; Dyspepsia; Dysphagia, unspecified type; Encounter for immunization; Insomnia, unspecified type; Essential hypertension, benign; 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); Stage 3a chronic kidney disease (HCC); Chronic ITP (idiopathic thrombocytopenia) (HCC); Spinal stenosis, lumbar region, without neurogenic claudication; Prediabetes Start: 05-23-2024 End: 05-23-2024 Patient encounter procedure Carlin Keenan Work Phone: Hematology/Oncology Start: 05-23-2024 End: 05-23-2024 ambulatory Carlin Keenan Work Phone: Hematology/Oncology Comment on above: Anemia, unspecified type (Primary Dx); Thrombocytopenia (HCC) Start: 05-12-2024 End: 05-12-2024 ambulatory Beryl Kuhn RN Work Phone: [employer] Start: 05-06-2024 End: 05-06-2024 ambulatory Kayla Machado MD Work Phone: Hematology/Oncology Comment on above: Anemia, unspecified type (Primary Dx); Other hemoglobinopathies (HCC); Thrombocytopenia (HCC) Start: 05-06-2024 End: 05-06-2024 Patient encounter procedure Kayla Machado MD Work Phone: Hematology/Oncology Start: 05-03-2024 End: 05-04-2024 Telephone encounter Kayla Machado MD Work Phone: Hematology/Oncology Comment on above: New Patient Start: 05-02-2024 End: 05-04-2024 Telephone encounter Valery Quinteros APRN.ASSISTANT PORTFOLIO MANAGER Work Phone: [facility] [place] Start: 05-02-2024 End: 05-02-2024 ambulatory ALVIN SAINI Facility:[facility] Start: 05-02-2024 End: 05-02-2024 Office outpatient visit 25 minutes Valery Quinteros APRN.ASSISTANT PORTFOLIO MANAGER Work Phone: [facility] Comment on above: Right groin pain (Pr imary Dx); Chronic right hip pain; Atherosclerosis of [place] coronary artery of [place] heart without angina pectoris; Paroxysmal A-fib (HCC); Essential hypertension, benign; Mixed hyperlipidemia; Hypertensive kidney disease with stage 3a chronic kidney disease (HCC); 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); Other iron deficiency anemia; Prediabetes; Encounter for immunization Start: 04-28-2024 End: 04-28-2024 Telephone encounter Lizeth Saini PA-C Work Phone: [facility] [place] Start: 04-26-2024 End: 04-27-2024 Telephone encounter Todd Seth MD Work Phone: [facility] [place] Comment on above: Patient Question Start: 04-22-2024 End: 04-22-2024 ambulatory ALVIN SAINI Facility:[facility] Start: 04-19-2024 End: 04-19-2024 Telephone encounter Valery Quinteros APRN.ASSISTANT PORTFOLIO MANAGER Work Phone: [facility] [place] Comment on above: Results Start: 04-18-2024 End: 04-19-2024 Telephone encounter Anne Alexander APRN.ASSISTANT PORTFOLIO MANAGER Work Phone: Pre Anesthesia Comment on above: Results Start: 04-15-2024 Encounter for other preprocedural examination VALERY QUINTEROS [facility] Start: 04-15-2024 End: 04-15-2024 Admission to establishment [facility] 1 Work Phone: Pre Anesthesia Start: 04-15-2024 End: 04-15-2024 ambulatory ALVIN GAYLE SAINI Facility:[facility] Start: 04-15-2024 End: 04-15-2024 Anesthesia consultation [facility] [place] 1 Work Phone: Pre Anesthesia Comment on above: 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) (Primary Dx); Paroxysmal A-fib (HCC); Mixed hyperlipidemia; Hypertensive kidney disease with stage 3a chronic kidney disease (HCC); Primary insomnia; Gastroesophageal reflux disease, unspecified whether esophagitis present; Chronic ITP (idiopathic thrombocytopenia) (HCC); Pre-operative examination; Iron deficiency anemia, unspecified iron deficiency anemia type; Impaired fasting glucose; Bilateral carotid artery stenosis; TIA (transient ischemic attack) Start: 04-15-2024 End: 04-15-2024 Preprocedural examination done [facility] 1 Work Phone: [facility] Start: 04-14-2024 End: 04-14-2024 ambulatory Beryl Kuhn RN Work Phone: [employer] Start: 04-12-2024 End: 04-14-2024 Telephone encounter Ryan Alonzo MD Work Phone: [address] Comment on above: Pre-Op Teaching Start: 04-11-2024 End: 04-28-2024 Telephone encounter Jamel Saini LPN Pre Anesthesia Start: 04-09-2024 End: 04-10-2024 Emergency department patient visit Valery Quinteros Facility:[facility] Start: 04-06-2024 Telephone encounter Lizeth Saini PA-C Work Phone: [facility] Comment on above: Patient Question Start: 04-05-2024 Telephone encounter Anay saucedo PA-C Work Phone: Pre Anesthesia Comment on above: Preparations For Mirta souleymane (Plavix Clearance) Start: 03-25-2024 End: 03-25-2024 Emergency department patient visit Luis Corbin Facility:[facility] Start: 03-24-2024 End: 06-20-2024 Telephone encounter Valery Quinteros PROTOZOOLOGIST.ASSISTANT PORTFOLIO MANAGER Work Phone: [facility] Comment on above: Patient Update Start: 03-22-2024 Refill Valery Xie S uppan PROTOZOOLOGIST.ASSISTANT PORTFOLIO MANAGER Work Phone: [facility] Comment on above: Refill Request Start: 03-21-2024 Telephone encounter Harleen heard [facility] Work Phone: Psychology Comment on above: bh consult Start: 03-21-2024 End: 03-21-2024 Office outpatient visit 15 minutes Valery Quinteros PROTOZOOLOGIST.ASSISTANT PORTFOLIO MANAGER Work Phone: [facility] Comment on above: Mixed hyperlipidemia (Primary Dx); BPH with obstruction/lower urinary tract symptoms; Chronic right hip pain; Iron deficiency anemia, unspecified iron deficiency anemia type; Dyspepsia; Dysphagia, unspecified type; Primary insomnia; 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); Paroxysmal atrial fibrillation (HCC); Dog bite, sequela; Hypertension, unspecified type; Suicide attempt (HCC) Start: 03-21-2024 End: 03-21-2024 ambulatory ALVIN SAINI Facility:[facility] Start: 03-21-2024 End: 03-21-2024 Emergency department patient visit Jack Moore Facility:[facility] Start: 03-17-2024 ambulatory Beryl calabrese RN Work Phone: [employer] Comment on above: community monitoring ([facility] telephonic/) Start: 03-15-2024 ambulatory Lizeth Maldonado on PA-C Work Phone: [facility] [place] Comment on above: Depression Start: 03-02-2024 End: 03-02-2024 ambulatory ALVIN SAINI Facility:[facility] Start: 03-02-2024 End: 03-02-2024 Patient encounter procedure Jeanie Tavares DO Work Phone: Cardiology Comment on above: Paroxysmal atrial fi brillation (HCC) (Primary Dx); Atherosclerosis of [place] coronary artery of [place] heart without angina pectoris; Mixed hyperlipidemia; Essential hypertension, benign; Hypertensive kidney disease with stage 3a chronic kidney disease (HCC); Stage 3a chronic kidney disease (HCC); Preoperative cardiovascular examination Start: 03-02-2024 End: 03-02-2024 Patient encounter status Jeanie Deb Tavares DO Work Phone: [facility] Start: 02-29-2024 End: 02-29-2024 Orders Only Ryan Alonzo MD Work Phone: Orthopaedics Comment on above: Primary osteoarthrit is of right hip (Primary Dx) Start: 02-29-2024 End: 02-29-2024 Office outpatient new 60 minutes Ryan Alonzo MD Work Phone: Orthopaedics Comment on above: Primary osteoarthrit is of right hip (Primary Dx) Start: 02-26-2024 End: 02-26-2024 Patient encounter procedure Asif Gonzales PA-C Work Phone: Orthopaedics Comment on above: Pain in right hip (P rimary Dx); Arthritis of right hip Start: 02-26-2024 End: 02-26-2024 ambulatory ALVIN SAINI Facility:[facility] Start: 02-26-2024 End: 02-26-2024 Subsequent hospital visit by physician Daina [facility] [place] Work Phone: Radiology Comment on above: Pain in right hip [M 25.551] Start: 02-23-2024 End: 02-23-2024 ambulatory ALVIN SAINI Facility:[facility] Start: 02-23-2024 End: 02-23-2024 Patient encounter procedure Lizeth Saini MAURICIO Work Phone: [facility] [place] Comment on above: 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) (Primary Dx); Essential hypertension, benign; Bilateral carotid artery stenosis; New onset atrial fibrillation (HCC); BPH with obstruction/lower urinary tract symptoms; Chronic right hip pain; Spinal stenosis, lumbar region, without neurogenic claudication Start: 02-17-2024 ambulatory Beryl calabrese RN Work Phone: [employer] Comment on above: community monitoring ([facility] telephonic/) Start: 02-05-2024 Telephone encounter Todd Seth MD Work Phone: [facility] [place] Comment on above: Results Start: 01-25-2024 Telephone encounter Valery Quinteros PROTOZOOLOGIST.SLEEVE WHEEL MAKER Work Phone: [facility] [place] Start: 01-21-2024 ambulatory Beryl calabrese RN Work Phone: [employer] Comment on above: community monitoring ([facility] telephonic/) Start: 01-21-2024 End: 01-21-2024 Subsequent hospital visit by physician [facility] Work Phone: Radiology Comment on above: BPH with obstruction /lower urinary tract symptoms [N40.1, N13.8] Start: 01-20-2024 Refill Lizeth Maldonado on PA-C Work Phone: [facility] [place] Comment on above: Refill Request Start: 01-15-2024 Telephone encounter Lizeth Saini PA-C Work Phone: [facility] [place] Comment on above: Results Start: 01-07-2024 End: 01-07-2024 Patient encounter procedure Lizeth Saini PA-C Work Phone: [facility] [place] Comment on above: Arthritis of right h ip (Primary Dx); BPH with obstruction/lower urinary tract symptoms Start: 12-21-2023 ambulatory Beryl calabrese RN Work Phone: [employer] Comment on above: community monitoring ([facility] telephonic/) Start: 12-04-2023 Refill Lizeth Araujo Joel on PA-C Work Phone: [facility] [place] Comment on above: Refill Request Start: 11-23-2023 ambulatory Beryl calabrese RN Work Phone: [employer] Comment on above: community monitoring ([facility] telephonic/) Start: 11-23-2023 Telephone encounter Brittani Mace APRN.CNP Work Phone: Cardiology Comment on above: Results ([facility]) Start: 10-29-2023 End: 10-29-2023 Office outpatient visit 25 minutes Brittani Mace APRN.ASSISTANT PORTFOLIO MANAGER Work Phone: Cardiology Comment on above: PAF (paroxysmal atri al fibrillation) (HCC) (Primary Dx); Coronary artery disease involving [place] coronary artery of [place] heart without angina pectoris; Essential hypertension, benign; Mixed hyperlipidemia; TIA (transient ischemic attack) Start: 10-23-2023 ambulatory Beryl calabrese RN Work Phone: [employer] Comment on above: community monitoring ([facility] telephonic/) Start: 10-20-2023 End: 10-20-2023 Patient encounter procedure Thierno Srivastava DO Work Phone: Vascular Surgery Comment on above: Stenosis of left car otid artery Start: 10-15-2023 Telephone encounter Breanna Simpson miof PROTOZOOLOGIST.ASSISTANT PORTFOLIO MANAGER Work Phone: [facility] [place] Comment on above: Results (US Bladder/ Kidney ) Patient Question Start: 10-13-2023 End: 10-13-2023 Patient encounter procedure Kieran ALEJANDRA-C Work Phone: Urology Comment on above: Nocturia (Primary Dx ) Start: 10-12-2023 Telephone encounter Breanna Simpson nhof PROTOZOOLOGIST.ASSISTANT PORTFOLIO MANAGER Work Phone: [facility] [place] Comment on above: Results (Labs ) Start: 10-12-2023 End: 10-12-2023 Subsequent hospital visit by physician [facility] Work Phone: Radiology Comment on above: Increased urinary fr equency [R35.0] Start: 10-08-2023 End: 10-08-2023 Patient encounter procedure Lizeth ALEJANDRA-C Work Phone: [facility] [place] Comment on above: Hospital discharge f ollow-up (Primary Dx); New onset atrial fibrillation (HCC); Elevated serum creatinine; 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); Essential hypertension, benign; Hypertensive kidney disease with stage 3a chronic kidney disease (HCC); Mixed hyperlipidemia; Impaired fasting glucose; Cardiac enzymes elevated; Stage 3a chronic kidney disease (HCC) Start: 09-30-2023 ambulatory Lizeth ALEJANDRA-C Work Phone: [facility] [place] Comment on above: Opened In Error Start: 09-30-2023 Telephone encounter iLzeth ALEJANDRA-C Work Phone: [facility] [place] Comment on above: Patient Update Start: 09-28-2023 Telephone encounter Lizeth ALEJANDRA-C Work Phone: [facility] [place] Comment on above: Transition Of Care Start: 09-26-2023 Non-patient / Non-visit [place] ALEJANDRA Work Phone: [facility] Work Phone: Start: 09-25-2023 Non-patient / Non-visit PA NA Saini PA Work Phone: [facility] Work Phone: Start: 09-25-2023 ambulatory Beryl calabrese RN Work Phone: [employer] Comment on above: community monitoring (CDM telephonic/) Start: 09-25-2023 Non-patient / Non-visit PA NA Saini PA Work Phone: [facility] Start: 09-24-2023 End: 09-26-2023 Evaluation and management of inpatient PA NA Saini PA Work Phone: [facility] Work Phone: Start: 09-24-2023 Telephone encounter Lizeth Saini PA-C Work Phone: [facility] [place] Comment on above: Patient Update Start: 09-23-2023 Non-patient / Non-visit PA NA Saini PA Work Phone: [facility] Start: 09-23-2023 End: 09-23-2023 ambulatory PA M Gaylekeri Maldonadoon PA Work Phone: [facility] Work Phone: Start: 09-23-2023 End: 09-23-2023 Patient encounter procedure PA NA Saini PA Work Phone: [facility], [facility] Work Phone: Start: 07-31-2023 ambulatory Beryl calabrese RN Work Phone: [employer] Comment on above: community monitoring (CDM telephonic/) Start: 06-17-2023 Refill Lizeth alaniz PA-C Work Phone: [facility] [place] Comment on above: Refill Request Start: 06-05-2023 ambulatory Beryl calabrese RN Work Phone: [employer] Comment on above: Opened In Error Start: 05-29-2023 End: 05-29-2023 ambulatory [facility] [place] Work Phone: [facility] [place] Start: 05-28-2023 End: 05-28-2023 Patient encounter procedure Lizeth Saini PA-C Work Phone: [facility] [place] Comment on above: Diarrhea, unspecifie d type (Primary Dx) Start: 05-08-2023 ambulatory Beryl calabrese RN Work Phone: [employer] Comment on above: community monitoring (CDM telephonic/) Start: 05-07-2023 End: 05-07-2023 Subsequent hospital visit by physician Daina [facility] [place] Kill[place] Work Phone: Radiology Comment on above: Pain in right hip [M 25.551] Start: 05-05-2023 Orders Only Cristiano Ramos MD Work Phone: Orthopaedics Comment on above: Pain in right hip (P rimary Dx) Start: 04-10-2023 ambulatory Beryl calabrese RN Work Phone: [employer] Comment on above: community monitoring (CDM telephonic/) Start: 04-09-2023 Telephone encounter Lizeth Saini PA-C Work Phone: [facility] [place] Comment on above: Orders (RT Hip Injec tion) Start: 03-09-2023 Refill Lizeth Maldonado on PA-C Work Phone: [employer] Comment on above: Refill Request Start: 03-04-2023 Refill Lizeth Maldonado on PA-C Work Phone: [facility] [place] Comment on above: Refill Request Start: 03-03-2023 End: 03-03-2023 Patient encounter procedure Jeanie Tavares DO Work Phone: Cardiology Comment on above: Coronary artery dise ase involving [place] coronary artery of [place] heart without angina pectoris (Primary Dx); Lipid disorder; Mixed hyperlipidemia; Essential hypertension, benign; Coronary angioplasty status; TIA (transient ischemic attack); 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) Start: 02-23-2023 Refill Lizeth Maldonado on PA-C Work Phone: [facility] [place] Comment on above: Refill Request Start: 02-04-2023 ambulatory Yeimi Perry RN Work Phone: [employer] Comment on above: Community monitoring outreach (CDM telephonic outreach) Start: 01-05-2023 Refill Lizeth BONDC Work Phone: [facility] Comment on above: Refill Request Start: 12-29-2022 End: 12-29-2022 Patient encounter procedure Lizeth Gayle Saini PA-C Work Phone: [facility] [place] Comment on above: 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) (Primary Dx); TIA (transient ischemic attack); Essential hypertension, benign; Mixed hyperlipidemia; Impaired fasting glucose; Stage 3a chronic kidney disease (HCC); Iron deficiency anemia, unspecified iron deficiency anemia type; Gastroesophageal reflux disease, unspecified whether esophagitis present; Spinal stenosis, lumbar region, without neurogenic claudication; Tiredness Start: 12-23-2022 ambulatory Paris garza RN Work Phone: [employer] Comment on above: CDM (Telephonic outr each/) Start: 12-22-2022 ambulatory Paris garza RN Work Phone: [employer] Comment on above: CDM (Telephonic outr each/) Start: 11-26-2022 End: 11-26-2022 Subsequent hospital visit by physician Edith Pressley APRN.ASSISTANT PORTFOLIO MANAGER Work Phone: [facility] Radiology Comment on above: Primary osteoarthrit is of right hip [M16.11] Start: 11-21-2022 ambulatory Paris garza RN Work Phone: [employer] Comment on above: CDM (Telephonic outr each/) Start: 11-12-2022 Telephone encounter Lizeth Gayle Saini PA-C Work Phone: [facility] [place] Comment on above: Donor list Start: 11-07-2022 ambulatory Paris garza RN Work Phone: [employer] Comment on above: CDM (Telephonic outr each/) Start: 11-05-2022 ambulatory Paris garza RN Work Phone: [employer] Comment on above: CDM (Telephonic outr each/) Start: 10-22-2022 ambulatory Paris garza RN Work Phone: [employer] Comment on above: CDM (Telephonic outr each/) Start: 10-06-2022 Telephone encounter Lizeth Gayle Saini PA-C Work Phone: [facility] [place] Comment on above: Results Start: 10-02-2022 Orders Only Cristiano Ramos MD Work Phone: Orthopaedics Comment on above: Primary osteoarthrit is of right hip (Primary Dx); Right hip pain Start: 09-30-2022 End: 09-30-2022 Patient encounter procedure Lizeth Gayle Saini PA-C Work Phone: [facility] Comment on above: 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) (Primary Dx); Essential hypertension, benign; Mixed hyperlipidemia; Impaired fasting glucose; Stage 3a chronic kidney disease (HCC); Iron deficiency anemia, unspecified iron deficiency anemia type; Chronic ITP (idiopathic thrombocytopenia) (HCC); Gastroesophageal reflux disease, unspecified whether esophagitis present; Spinal stenosis, lumbar region, without neurogenic claudication; TIA (transient ischemic attack); Elevated serum creatinine; Primary insomnia Start: 09-24-2022 ambulatory Paris garza RN Work Phone: [employer] Comment on above: CDM (Telephonic outr each/) Start: 09-03-2022 ambulatory Paris garza RN Work Phone: [employer] Comment on above: CDM (Telephonic outr each/) Start: 09-01-2022 End: 09-01-2022 Patient encounter procedure Cristiano Ramos MD Work Phone: Orthopaedics Comment on above: Primary osteoarthrit is of right hip (Primary Dx); Right hip pain Refill Request Start: 08-15-2022 Telephone encounter Lizeth Saini PA-C Work Phone: [facility] [place] Comment on above: Results Start: 08-13-2022 ambulatory Paris garza RN Work Phone: [employer] Comment on above: CDM (Telephonic outr each/) Refill Request Start: 08-04-2022 End: 08-04-2022 Patient encounter procedure Lizeth Saini PA-C Work Phone: [facility] [place] Comment on above: 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) (Primary Dx); Essential hypertension, benign; Mixed hyperlipidemia; Impaired fasting glucose; Stage 3a chronic kidney disease (HCC); Chronic ITP (idiopathic thrombocytopenia) (HCC); Iron deficiency anemia, unspecified iron deficiency anemia type; Gastroesophageal reflux disease, unspecified whether esophagitis present; Spinal stenosis, lumbar region, without neurogenic claudication; Primary insomnia; Dizziness; Gait instability; Right hip pain Start: 07-25-2022 Telephone encounter Lizeth Saini PA-C Work Phone: [facility] [place] Comment on above: Results Start: 07-16-2022 ambulatory Paris garza RN Work Phone: [employer] Comment on above: CDM (Telephonic outr each\/) Start: 06-18-2022 ambulatory Paris garza RN Work Phone: [employer] Comment on above: Community Monitoring Outreach (Telephonic outreach/) Start: 06-17-2022 ambulatory Paris garza RN Work Phone: [employer] Comment on above: Community Monitoring Outreach (Telephonic outreach/) Start: 06-16-2022 Telephone encounter Lizeth Saini PA-C Work Phone: [facility] [place] Comment on above: Results Start: 06-09-2022 Telephone encounter Lizeth Saini PA-C Work Phone: [facility] [place] Comment on above: Results Start: 06-03-2022 End: 06-03-2022 Patient encounter procedure M Gayle Saini PA-C Work Phone: [facility] Comment on above: Chronic ITP (idiopat hic thrombocytopenia) (HCC) (Primary Dx); Diarrhea, unspecified type Start: 05-27-2022 Refill Lizeth Gayle alaniz PA-C Work Phone: [facility] [place] Comment on above: Refill Request Start: 05-24-2022 End: 05-24-2022 ambulatory [facility] [place] Work Phone: [facility] [place] Start: 05-20-2022 ambulatory Paris garza RN Work Phone: [employer] Comment on above: Community Monitoring Outreach (Telephonic outreach/) Start: 05-12-2022 Telephone encounter Lizeth Gayle Saini PA-C Work Phone: [facility] [place] Comment on above: Results Start: 05-02-2022 End: 05-02-2022 Patient encounter procedure Lizeth Gayle Saini PA-C Work Phone: [facility] Comment on above: 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) (Primary Dx); Essential hypertension, benign; Mixed hyperlipidemia; Impaired fasting glucose; Stage 3a chronic kidney disease (HCC); Chronic right hip pain; Pain of right calf; Iron deficiency anemia, unspecified iron deficiency anemia type; Thrombocytopenia, unspecified ([facility]); Primary insomnia; Gastroesophageal reflux disease, unspecified whether esophagitis present; Spinal stenosis, lumbar region, without neurogenic claudication; Lumbosacral spondylosis without myelopathy Start: 04-22-2022 ambulatory Paris garza RN Work Phone: [employer] Comment on above: Community Monitoring Outreach (Telephonic outreach/) Start: 04-21-2022 ambulatory Paris garza RN Work Phone: [employer] Comment on above: Community Monitoring Outreach (Telephonic outreach/) Start: 03-24-2022 ambulatory Paris garza RN Work Phone: [employer] Comment on above: Community Monitoring Outreach (2nd insight enrollment attempt) Start: 03-21-2022 ambulatory Paris garza RN Work Phone: [employer] Comment on above: Community Monitoring Outreach (1st insight enrollment attempt) Start: 03-20-2022 Refill Lizeth Maldonado on PA-C Work Phone: [facility] [place] Comment on above: Refill Request Start: 03-13-2022 End: 03-13-2022 ambulatory Brent High PT [facility] Comment on above: Right hip pain (Prim phoebe Dx) Start: 03-06-2022 End: 03-06-2022 Patient encounter procedure Lizeth Saini PA-C Work Phone: [facility] [place] Comment on above: LUQ abdominal pain ( Primary Dx); Herpes zoster without complications Start: 03-06-2022 End: 03-06-2022 ambulatory Brent High PT [facility] Comment on above: Right hip pain (Prim phoebe Dx) Start: 02-27-2022 End: 02-27-2022 ambulatory Brent High PT [facility] Comment on above: Right hip pain (Prim phoebe Dx) Start: 02-12-2022 End: 02-12-2022 Patient encounter procedure Jeanie Tavares DO Work Phone: Cardiology Comment on above: Coronary artery dise ase involving [place] coronary artery of [place] heart without angina pectoris (Primary Dx); Lipid disorder; Mixed hyperlipidemia; Essential hypertension, benign; Coronary angioplasty status; TIA (transient ischemic attack); 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 551] Refill Request Start: 02-03-2022 End: 02-03-2022 ambulatory Brent Vahid PT [place] [facility] Comment on above: Right hip pain Start: 12-18-2021 Telephone encounter Lizeth Gayle Saini PA-C Work Phone: [facility] [place] Comment on above: Patient Update Start: 09-13-2021 End: 09-13-2021 Subsequent hospital visit by physician Daina [facility] [place] Work Phone: Radiology Comment on above: Cough [R05.9] Start: 05-21-2021 Telephone encounter Lizeth Gayle Saini PA-C Work Phone: [facility] [place] Comment on above: Fever Start: 04-06-2018 Ambulatory [facility] Facility :[facility] Start: 09-16-2017 [facility] Facility :[facility] Procedures Date Procedure Procedure Detail Performing Clinician Start: 11-28-2024 Estimated creatinine clearance Catalina e Suppan [employer] Work Phone: Start: 11-26-2024 Cardiovascular stress test using pharmacologic stress agent Valery Suppan [employer] Work Phone: Start: 11-25-2024 X-ray of chest, PA and lateral views Valery Suppan [employer] Work Phone: Start: 11-16-2024 Total iron binding capacity measurement Valery Suppan [employer] Work Phone: Start: 11-11-2024 Blood culture Valery Suppan [employer] Work Phone: Start: 11-11-2024 Urine culture Valery Suppan [employer] Work Phone: Start: 11-10-2024 Estimated creatinine clearance Catalina e Suppan [employer] Work Phone: Start: 11-08-2024 Esophagogastroduodenoscopy Valery Moreira ppan [employer] Work Phone: Start: 11-07-2024 Plain chest X-ray Valery Suppan [employer] Work Phone: Start: 11-07-2024 Measurement of occult blood in stool specimen using immunoassay Valery Suppan [employer] Work Phone: Start: 10-07-2024 Antibody screen RYAN ALONZO Comment on above: Order Comment: Specimen Type: BLOOD SPEC IMEN Ordering Facility: [facility] Address: [address] [place] [address] Performed By: #### T SCR #### [facility] CLIA [id number] [address] Start: 09-13-2024 Antibody screen RYAN ALONZO Comment on above: Order Comment: Specimen Type: BLOOD SPEC IMEN Ordering Facility: [facility] Address: [address] [place] [address] Performed By: #### 5 [id number] #### [facility] CLIA [id number] [address] Start: 08-30-2024 Ecg routine ecg w/least 12 lds i&r only [facility] Provider Start: 08-04-2024 Ct lower extremity w/o contrast material Asif Gonzales PA-C Work Phone: Start: 08-02-2024 Adult depression screening assessment Valery Quinteros PROTOZOOLOGIST.ASSISTANT PORTFOLIO MANAGER Work Phone: Start: 05-26-2024 P[employer]ER-BIONTDujour App COVID-19 VACCINE AGE 12+ YR (COMIRNATY) Valery Quinteros PROTOZOOLOGIST.ASSISTANT PORTFOLIO MANAGER Work Phone: Start: 04-15-2024 Antibody screen VALERY QUINTEROS Comment on above: Order Comment: Specimen Type: BLOOD SPEC IMENOrdering Facility: [facility] Address: [address] [place] [address] Performed By: #### T SCR30 ####[facility] [id number] [address] Start: 03-02-2024 Ecg routine ecg w/least 12 lds i&r only [facility] Provider Start: 01-07-2024 Urnls dip stick/tablet rgnt auto w/o microscopy M Gayle Saini PA-C Work Phone: Start: 10-13-2023 Urnls dip stick/tablet rgnt auto w/o microscopy Kieran John PAMegC Work Phone: Start: 10-12-2023 Us retroperitoneal real time w/image complete Breanna Chawla PROTOZOOLOGIST.ASSISTANT PORTFOLIO MANAGER Work Phone: Start: 09-24-2023 Plain chest X-ray PA LORI Saini PA Work Phone: Start: 09-24-2023 Nucleic acid assay PA NA Parveen PA Work Phone: Start: 09-24-2023 SARS-CoV-2, Influenza & RSV (PCR) PA LORI Saini PA Work Phone: Start: 09-24-2023 Urine culture PA LORI Saini PA Work Phone: Start: 09-23-2023 Procedure on extremity PA LORI Saini PA Work Phone: Start: 05-29-2023 [employer] App COVID-19 VACCINE (2022- SEASON) AGE 12+ YR Reed Leslie MD Work Phone: Start: 05-29-2023 INFLUENZA VACCINE, PRSV FREE, AGE 65+ YR, HIGH DOSE, QUADRIVALENT (FLUZONE HIGH-DOSE) Reed Leslie MD Work Phone: Start: 05-07-2023 Radex hip unilateral with pelvis 2-3 views Cristiano Ramos MD Work Phone: Start: 03-03-2023 Ecg routine ecg w/least 12 lds i&r only [facility] Provider Start: 11-26-2022 End: 11-26-2022 Arthrocentesis aspir&/inj major jt/bursa w/us Edith Pressley PROTOZOOLOGIST.ASSISTANT PORTFOLIO MANAGER Work Phone: Start: 06-03-2022 Urnls dip stick/tablet rgnt auto w/o microscopy Lizeth BONDC Work Phone: Start: 05-24-2022 PFIZER-BIONTECH COVID-19 BIVALENT BOOSTER VACCINE, AGE 12+ YR Desi Duncan MD Work Phone: Start: 05-24-2022 INFLUENZA SEASONAL QUADRIVALENT HIGH DOSE AGE 65+ Desi Duncan MD Work Phone: Start: 02-03-2022 Radex hip unilateral with pelvis 2-3 views M Gayle Saini PA-C Work Phone: Start: 09-13-2021 Radiologic exam chest 2 views Brittani Ron ggs PROTOZOOLOGIST.ASSISTANT PORTFOLIO MANAGER Work Phone: Plan of Treatment Date Care Activity Detail Author Start: 03-21-2034 Urine microalbumin profile DTaP,Tdap,Td Vaccine (4 - Td or Tdap) [facility] Start: 01-24-2028 Diabetes Screening Diabetes Screening [facility] Start: 10-14-2027 Diabetes Screening Diabetes Screening [facility] Start: 10-08-2027 Diabetes Screening Diabetes Screening [facility] Start: 08-30-2027 Diabetes Screening Diabetes Screening [facility] Start: 05-02-2027 Diabetes Screening Diabetes Screening [facility] Start: 04-15-2027 Diabetes Screening Diabetes Screening [facility] Start: 01-10-2027 Diabetes Screening Diabetes Screening [facility] Start: 10-08-2026 Diabetes Screening Diabetes Screening [facility] Start: 04-02-2026 DIABETES SCREEN DIABETES SCREEN [facility] Start: 04-02-2026 Diabetes Screening Diabetes Screening [facility] Start: 01-23-2026 Hepatitis B surface antibody level LDL Cholesterol [facility] Start: 01-08-2026 DIABETES SCREEN DIABETES SCREEN [facility] Start: 12-19-2025 End: 12-19-2025 Patient encounter procedure [facility] Comment on above: 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] 1 year follow up aft er testing Start: 08-21-2025 End: 08-21-2025 Patient encounter procedure 08/21/2025 10:20 AM EST Office Visit Cardiology [address] [place] [address] Artie Collazo MD [address] [place] [address] new consult Cardiology Comment on above: new consult Start: 08-02-2025 Anxiety Screening Anxiety Screening [facility] Start: 08-02-2025 Depression Screening Depression Screening [facility] Start: 07-24-2025 DIABETES SCREEN DIABETES SCREEN [facility] Start: 06-22-2025 End: 06-22-2025 Patient encounter procedure 06/22/2025 9:00 AM EDT Office Visit [facility] [place] [address] [place] [address] Valery Quinteros APRN.ASSISTANT PORTFOLIO MANAGER [address] [place], [place] [address] medicare wellness [facility] [place] Comment on above: medicare wellness Start: 06-03-2025 DIABETES SCREEN DIABETES SCREEN [facility] Start: 04-03-2025 End: 04-03-2025 Patient encounter procedure 04/03/2025 1:20 PM EDT Office Visit Orthopaedics [address] [address] Ryan Alonzo MD [address] [place] [address] 4 mo follow up- [facility] Comment on above: 4 mo follow up- R [facility] Start: 03-17-2025 End: 03-17-2025 Patient encounter procedure 03/17/2025 12:40 PM EDT Office Visit [facility] [place] [address] [place] [address] Valery Quinteros APRN.ASSISTANT PORTFOLIO MANAGER [address] [place], [place] [id number] 3 month exam [facility] [place] Comment on above: 3 month exam Start: 03-02-2025 End: 03-02-2025 Patient encounter procedure 03/02/2025 9:00 AM EDT Office Visit Cardiology [address] [address] Harleen Armenta APRN.ASSISTANT PORTFOLIO MANAGER [address] [place] [address] 3 month follow up Cardiology Comment on above: 3 month follow up Start: 02-17-2025 End: 02-17-2025 Patient encounter procedure 02/17/2025 12:40 PM EDT Office Visit [facility] [place] [address] [place] [address] Valery Quinteros APRN.ASSISTANT PORTFOLIO MANAGER [address] [place] [address] feeling fatigued all the time [facility] [place] Comment on above: feeling fatigued all the time Start: 02-13-2025 End: 02-13-2025 Patient encounter procedure 02/13/2025 9:00 AM EDT Office Visit Vasculary Surgery [address] [place] [address] Edema, lower extremity [R60.0] [facility]cul[facility] Surgery Comment on above: Edema, lower extremity [R60.0] Start: 02-03-2025 DIABETES SCREEN DIABETES SCREEN [facility] Start: 02-01-2025 End: 02-01-2025 Patient encounter procedure Radiology Comment on above: ortho add R hip Rt Hip F/u dos:10/07 Start: 01-30-2025 End: 01-30-2026 US Lower extremity veins - bilateral US LEG VEIN DVT [facility] Vascular Lab Routine Edema, lower extremity Expected: 01/30/2025, Expires: 01/30/2026 [facility] Comment on above: Expected: 01/30/2025, Expires: 6 Start: 01-25-2025 End: 01-25-2025 Patient encounter procedure 01/25/2025 3:00 PM EDT Office Visit Orthopaedics [address] [address] Ryan Alonzo MD [address] [place] [address] Rt Hip F/u dos:10/07 Orthopaedics Comment on above: Rt Hip F/u dos:10/07 Start: 01-23-2025 End: 04-24-2025 Cobalamin (Vitamin B12) [Mass/volume] in Serum or Plasma [facility] Comment on above: Expected: 01/23/2025, Expires: 5 Start: 01-23-2025 End: 04-24-2025 Fibrin D-dimer FEU [Mass/volume] in Platelet poor plasma [facility] Comment on above: Expected: 01/23/2025, Expires: Start: 01-23-2025 End: 04-24-2025 Hemoglobin A1c in Blood [facility] Work Phone: Comment on above: Expected: 01/23/2025, Expires: Start: 01-23-2025 End: 04-24-2025 LIPID PANEL, NONFASTING [facility] Comment on above: Expected: 01/23/2025, Expires: Start: 01-23-2025 End: 04-24-2025 Thyrotropin [Units/volume] in Serum or Plasma [facility] Comment on above: Expected: 01/23/2025, Expires: Start: 01-10-2025 Hepatitis B surface antibody level LDL Cholesterol [facility] Start: 01-02-2025 End: 01-02-2025 Patient encounter procedure 01/02/2025 11:00 AM EDT Office Visit [facility] [address] [place], [place] [id number] Valery Quinteros APRN.ASSISTANT PORTFOLIO MANAGER [address] [place], [place] [id number] 3 month follow up [facility] Comment on above: 3 month follow up Start: 12-21-2024 End: 02-20-2025 CBC W Auto Differential panel - Blood COMPLETE BLOOD COUNT AND DIFFERENTIAL Lab STAT Anemia, unspecified type Expected: 12/21/2024 (Approximate), Expires: 02/20/2025 [facility] Work Phone: Comment on above: Expected: 12/21/2024 (Approximate), Expi res: 02/20/2025 Start: 12-20-2024 End: 12-20-2024 Patient encounter procedure 12/20/2024 10:30 AM EDT Office Visit Vascular Surgery [address] [place], [place] [address] Thierno Srivastava, DO [address] [place] [address] 1 Year follow up Vascular Surgery Comment on above: 1 Year follow up Start: 12-16-2024 End: 12-16-2024 Patient encounter procedure 12/16/2024 1:20 PM EDT Office Visit [facility] [address] [place] [address] Valery Quinteros APRN.ASSISTANT PORTFOLIO MANAGER [address] [place] [address] 3 month follow up [facility] Comment on above: 3 month follow up Start: 11-30-2024 End: 11-30-2024 Patient encounter procedure Radiology Comment on above: R paras R hip paras Start: 11-28-2024 Patient discharge [facility] Start: 11-28-2024 [facility] Start: 11-26-2024 [facility] Start: 11-25-2024 End: 11-25-2024 [facility] Start: 11-25-2024 Care regimes management [facility] Start: 11-25-2024 Notification of physician [facility] Start: 11-25-2024 Following clinical pathway protocol [facility] Start: 11-25-2024 Assessment of risk of venous thromboembolism [facility] Start: 11-25-2024 Insertion of catheter into peripheral vein [facility] Start: 11-25-2024 Measuring intake and output [facility] Start: 11-25-2024 Providing care according to standard [facility] Start: 11-25-2024 Provision of activity privileges [facility] Start: 11-25-2024 Referral to occupational therapist [facility] Start: 11-25-2024 Referral to service [facility] Start: 11-25-2024 [facility] Start: 11-25-2024 Admission procedure [facility] Start: 11-25-2024 Hospital admission, emergency, from emergency room, medical nature [facility] Start: 11-25-2024 [facility] Start: 11-25-2024 [facility] Start: 11-24-2024 Covid-19 Vaccine ( season) Covid-19 Vaccine () [facility] Start: 11-21-2024 End: 11-21-2024 ambulatory Hematology/Oncology Comment on above: 6MO OV / CBC, iron studies * 6MO OV/LABS 11/15(@[facility])* 6MO OV/LABS 11/15 CBC /IRON STUDIES SCANNED Start: 11-18-2024 End: 11-18-2024 Patient encounter procedure 11/18/2024 2:00 PM EDT Office Visit Cardiology [address] [place] [address] Harleen Armenta APRN.ASSISTANT PORTFOLIO MANAGER [address] [place] [id number] hospital follow up: Can schedule with any available [place] cardiology PROTOZOOLOGIST Cardiology Comment on above: hospital follow up: Can schedule with an y available [place] cardiology PROTOZOOLOGIST Start: 11-15-2024 End: 02-14-2025 CBC W Auto Differential panel - Blood COMPLETE BLOOD COUNT AND DIFFERENTIAL Lab STAT Thrombocytopenia (HCC) Anemia, unspecified type Expected: 11/15/2024, Expires: 02/14/2025 [facility] Work Phone: Comment on above: Expected: 11/15/2024, Expires: Start: 11-15-2024 End: 02-14-2025 Ferritin [Mass/volume] in Serum or Plasma FERRITIN Lab Routine Thrombocytopenia (HCC) Anemia, unspecified type Expected: 11/15/2024, Expires: 02/14/2025 [facility] Comment on above: Expected: 11/15/2024, Expires: Start: 11-15-2024 End: 02-14-2025 Iron and Iron binding capacity panel - Serum or Plasma IRON AND TIBC Lab Routine Thrombocytopenia (HCC) Anemia, unspecified type Expected: 11/15/2024, Expires: 02/14/2025 [facility] Comment on above: Expected: 11/15/2024, Expires: Start: 11-15-2024 End: 11-15-2024 ambulatory [facility] Comment on above: CBC, iron studies CBC, iron studies-po ssibly [facility] done at [facility] Start: 11-10-2024 Patient discharge [facility] Start: 11-10-2024 [facility] Start: 11-09-2024 Transfusion of blood product [facility] Start: 11-09-2024 Administration of blood product [facility] Start: 11-08-2024 [facility] Start: 11-07-2024 Care regimes management [facility] Start: 11-07-2024 Notification of physician [facility] Start: 11-07-2024 [facility] Start: 11-07-2024 Application of intermittent pneumatic compression device [facility] Start: 11-07-2024 Following clinical pathway protocol [facility] Start: 11-07-2024 Ambulation without limitation [facility] Start: 11-07-2024 Assessment of risk of venous thromboembolism [facility] Start: 11-07-2024 Insertion of catheter into peripheral vein [facility] Start: 11-07-2024 Oxygen therapy [facility] Start: 11-07-2024 Providing care according to standard [facility] Start: 11-07-2024 Referral to gastroenterology service [facility] Start: 11-07-2024 Referral to occupational therapist [facility] Start: 11-07-2024 Referral to service [facility] Start: 11-07-2024 [facility] Start: 11-07-2024 Hospital admission, emergency, from emergency room, medical nature [facility] Start: 11-07-2024 Verification routine [facility] Start: 11-07-2024 Admission procedure [facility] Start: 11-07-2024 Administration of blood product [facility] Start: 11-07-2024 Leukocyte reduced red blood cells [facility] Start: 11-07-2024 End: 11-07-2024 [facility] Start: 10-31-2024 End: 10-31-2024 Patient encounter procedure 10/31/2024 10:00 AM EDT Office Visit Family Medicine [place] [address] [place] [address] Valery Quinteros APRN.[facility] [address] [facility] [place] [address] 3 month follow up [facility] [place] Comment on above: 3 month follow up Start: 10-27-2024 End: 10-27-2024 Nursing evaluation of patient and report 10/27/2024 3:00 PM EST Nurse Visit Orthopaedics [address] [address] Almas Melgar RN [address] [address] R hip PARAS DOS 10/07/24 Orthopaedics Comment on above: R hip PARAS DOS 10/07/24 Start: 10-25-2024 End: 10-25-2024 Nursing evaluation of patient and report 10/25/2024 8:00 AM EST Nurse Visit Orthopaedics [address] [address] Almas Melgar RN [address] [address] R hip PARAS DOS 10/07/24 Orthopaedics Comment on above: R hip PARAS DOS 10/07/24 Start: 10-20-2024 End: 11-05-2025 XR Pelvis and Hip - right AP and Lateral frog [facility] Work Phone: Comment on above: Expected: 10/20/2024, Expires: Start: 10-20-2024 End: 10-20-2024 Nursing evaluation of patient and report Orthopaedics Comment on above: R PARAS 09/13/24 R PARAS 10/07/24 Start: 10-18-2024 End: 10-18-2024 Patient encounter procedure Vasculary Surgery Comment on above: 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] 1 year up after test ing Start: 10-10-2024 End: 10-10-2024 Patient encounter procedure Cardiology Comment on above: transfer from [place] Paroxysmal atrial f ibrillation Start: 10-07-2024 End: 10-07-2024 Admission to same day surgery center 10/07/2024 7:30 AM EST - 10/07/2024 10:10 AM EST Surgery [facility] Surgery [address] [place] [address] Ryan Alonzo MD [address] [place] [address] ROBOTIC ASSISTED ANTERIOR TOTAL HIP ARTHROPLASTY [facility] Comment on above: ROBOTIC ASSISTED ANTERIOR TOTAL HIP ARTH ROPLASTY Start: 10-07-2024 End: 10-07-2024 Arthrp acetblr/prox fem prostc agrft/algrft ROBOTIC ASSISTED ANTERIOR TOTAL HIP ARTHROPLASTY Primary osteoarthritis of right hip 10/07/2024 7:30 AM EST ME OR Start: 10-07-2024 Subsequent hospital visit by physician 10/07/2024 7:30 AM EST Hospital Encounter [facility] Surgery [address] [place] [address] Ryan Alonzo MD [address] [place] [address] Primary osteoarthritis of right hip [M16.11] [facility] Surgery Comment on above: Primary osteoarthritis of right hip [M16 .11] Start: 09-27-2024 End: 10-20-2025 XR Pelvis and Hip - right AP and Lateral frog XR HIP GENERAL 3V PELV/AP/LAT RIGHT Radiology Routine Status post right hip replacement Expected: 09/27/2024, Expires: 10/20/2025 [facility] Work Phone: Comment on above: Expected: 09/27/2024, Expires: Start: 09-27-2024 End: 09-27-2024 Nursing evaluation of patient and report Orthopaedics Comment on above: R PARAS R PARAS 09/13/24 Start: 09-19-2024 End: 09-19-2024 Follow-up encounter 09/19/2024 11:50 AM EST Visit (SP) Office Hematology/Oncology [address] [place] [address] [place] [address] [place] [address] FOLLOW UP 1WK OV/EARLY LAB* Hematology/Oncology Comment on above: FOLLOW UP 1WK OV/EARLY LAB* Start: 09-19-2024 End: 09-19-2024 ambulatory 09/19/2024 11:30 AM EST Results Only [place] [address] [place] [address] CBC* [place] [facility] Comment on above: CBC* Start: 09-16-2024 End: 09-16-2024 Patient encounter procedure 09/16/2024 10:40 AM EST Office Visit Family Medicine [place] [address] [facility] [place] [address] Valery Quinteros APRN.ASSISTANT PORTFOLIO MANAGER [address] [place] [address] discuss what is going on gets dizzy off and on. No energy x 1 week or so. Pt declined a sooner apt. [facility] [place] Comment on above: discuss what is going on gets dizzy off and on. No energy x 1 week or so. Pt declined a sooner apt. Start: 2024 End: 2024 ambulatory 2024 2:00 PM EST Visit (SP) Office Hematology/Oncology [address] [place] [address] [place] [address] [place] [address] Thrombocytopenia (HCC) (Primary Dx) Hematology/Oncology Comment on above: Thrombocytopenia (HCC) (Primary Dx) Start: 2024 End: 12-14-2024 CBC W Auto Differential panel - Blood COMPLETE BLOOD COUNT AND DIFFERENTIAL Lab Routine Thrombocytopenia (HCC) Expected: 2024, Expires: 12/14/2024 [facility] Work Phone: Comment on above: Expected: 2024, Expires: Start: 09-13-2024 End: 09-13-2024 Admission to same day surgery center [facility] Surgery Comment on above: ARTHROPLASTY ACETABULAR AND PROX FEM PRO STH TOTAL HIP ANTERIOR APPROACH W/W/O AUTOGRAFT JERI SHANTE Start: 09-13-2024 End: 09-13-2024 Arthrp acetblr/prox fem prostc agrft/algrft ME OR Start: 09-13-2024 Subsequent hospital visit by physician [facility] Surgery Comment on above: Primary osteoarthritis of right hip [M16 .11] Start: 09-13-2024 End: 09-13-2024 Admission to same day surgery center [facility] Surgery Comment on above: ARTHROPLASTY ACETABULAR AND PROX FEM PRO STH TOTAL HIP ANTERIOR APPROACH W/W/O AUTOGRAFT JERI SHANTE ROBOTIC ASSISTED ANT ERIOR TOTAL HIP ARTHROPLASTY Start: 09-13-2024 End: 09-13-2024 Anesthesia consultation 09/13/2024 7:30 AM EST Anesthesia Event [facility] Surgery [address] [place] [address] Harleen Garcia MD [address] [place] [address] [facility] Surgery Start: 09-13-2024 End: 09-13-2024 Arthrp acetblr/prox fem prostc agrft/algrft ME OR Start: 09-13-2024 Subsequent hospital visit by physician 09/13/2024 7:30 AM EST Hospital Encounter [facility] Surgery [address] [place] [address] Ryan Alonzo MD [address] [place] [address] Primary osteoarthritis of right hip [M16.11] [facility] Surgery Comment on above: Primary osteoarthritis of right hip [M16 .11] Start: 09-02-2024 End: 09-02-2024 Patient encounter procedure 09/02/2024 9:00 AM EST Office Visit Family Medicine [place] [address] [place], [place] [address] Valery Quinteros APRN.ASSISTANT PORTFOLIO MANAGER [address] [place], [place] [address] 3 month f/u hip, anemia, BP [facility] [place] Comment on above: 3 month f/u hip, anemia, BP Start: 08-30-2024 End: 08-30-2024 Anesthesia consultation 08/30/2024 8:40 AM EST PAT Pre Anesthesia [address] [place] [address] 1, Pacc [place] [address] [place] [address] ARTHROPLASTY ACETABULAR AND PROX FEM PROSTH TOTAL HIP ANTERIOR APPROACH W/W/O AUTOGRAFT JERI SHANTE [[id number]] - Hip - Right Pre Anesthesia Comment on above: ARTHROPLASTY ACETABULAR AND PROX FEM PRO STH TOTAL HIP ANTERIOR APPROACH W/W/O AUTOGRAFT JERI SHANTE [[id number]] - Hip - Right Start: 08-29-2024 End: 08-29-2024 Patient encounter procedure 08/29/2024 9:45 AM EST Appointment Radiology [address] [place] [address] DOS 09/13/24 Primary osteoarthritis of right hip [M16.11] Radiology Comment on above: JERI CT DOS 09/13/24 Primary osteoarthrit is of right hip [M16.11] Start: 08-24-2024 Advance Directive Discussion Advance Directive Discussion [facility] Start: 08-24-2024 Medicare Advantage Annual Wellness Visit Medicare Advantage Annual Wellness Visit [facility] Start: 08-05-2024 End: 08-05-2024 Patient encounter procedure 08/05/2024 2:15 PM EST Appointment Radiology [address] [place] [address] HIP WO IVCON RIGHT Primary osteoarthritis of right hip [M16.11] Radiology Comment on above: JERI PROTOCL CT HIP WO IVCON RIGHT Prima ry osteoarthritis of right hip [M16.11] Start: 07-13-2024 End: 10-12-2024 Basic metabolic 2000 panel - Serum or Plasma BASIC METABOLIC PANEL Lab Routine Primary osteoarthritis of right hip Pre-op examination Expected: 07/13/2024, Expires: 10/12/2024 [facility] Comment on above: Expected: 07/13/2024, Expires: Start: 07-13-2024 End: 10-12-2024 CBC W Auto Differential panel - Blood COMPLETE BLOOD COUNT AND DIFFERENTIAL Lab Routine Primary osteoarthritis of right hip Pre-op examination Expected: 07/13/2024, Expires: 10/12/2024 [facility] Comment on above: Expected: 07/13/2024, Expires: Start: 07-13-2024 End: 10-12-2024 Hemoglobin A1c in Blood HEMOGLOBIN A1C Lab Routine Primary osteoarthritis of right hip Pre-op examination Expected: 07/13/2024, Expires: 10/12/2024 [facility] Comment on above: Expected: 07/13/2024, Expires: Start: 07-13-2024 End: 07-13-2024 Patient encounter procedure Orthopaedics Comment on above: hip pain Right hip pain Start: 06-24-2024 End: 06-24-2024 Patient encounter procedure 06/24/2024 2:00 PM EDT Office Visit Orthopaedics [address] [place] [address] Asif Gonzales PA-C [address] [address] hip pain Orthopaedics Comment on above: hip pain Start: 05-26-2024 End: 05-26-2024 Patient encounter procedure [facility] [place] Comment on above: 3 month follow up 1 month follow up Start: 05-23-2024 End: 05-23-2024 ambulatory [place] [facility] Laboratory Comment on above: CBC/ANEMIA* 2 WK OV/EARLY LABS Start: 05-20-2024 End: 08-19-2024 CBC W Auto Differential panel - Blood COMPLETE BLOOD COUNT AND DIFFERENTIAL Lab Routine Anemia, unspecified type Expected: 05/20/2024 (Approximate), Expires: 08/19/2024 [facility] Comment on above: Expected: 05/20/2024 (Approximate), Expi res: 08/19/2024 Start: 05-20-2024 End: 05-06-2025 Cobalamin (Vitamin B12) [Mass/volume] in Serum or Plasma VITAMIN B12 Lab Routine Anemia, unspecified type Expected: 05/20/2024 (Approximate), Expires: 05/06/2025 [facility] Comment on above: Expected: 05/20/2024 (Approximate), Expi res: 05/06/2025 Start: 05-20-2024 End: 05-06-2025 Ferritin [Mass/volume] in Serum or Plasma FERRITIN Lab Routine Anemia, unspecified type Expected: 05/20/2024 (Approximate), Expires: 05/06/2025 [facility] Comment on above: Expected: 05/20/2024 (Approximate), Expi res: 05/06/2025 Start: 05-20-2024 End: 05-06-2025 Iron and Iron binding capacity panel - Serum or Plasma IRON AND TIBC Lab Routine Anemia, unspecified type Expected: 05/20/2024 (Approximate), Expires: 05/06/2025 [facility] Comment on above: Expected: 05/20/2024 (Approximate), Expi res: 05/06/2025 Start: 05-12-2024 End: 05-12-2024 Nursing evaluation of patient and report 05/12/2024 10:00 AM EDT Nurse Visit Orthopaedics [address] [id number] Almas Melgar, RN [address] [address] R PARAS DOS ABMS 04/28/24 Orthopaedics Comment on above: R PARAS DOS ABMS 04/28/24 Start: 05-06-2024 End: 08-05-2024 Folate [Mass/volume] in Serum or Plasma FOLATE, SERUM Lab Routine Anemia, unspecified type Expected: 05/06/2024, Expires: 08/05/2024 [facility] Work Phone: Comment on above: Expected: 05/06/2024, Expires: Start: 05-06-2024 End: 08-05-2024 Haptoglobin [Mass/volume] in Serum or Plasma HAPTOGLOBIN Lab Routine Anemia, unspecified type Expected: 05/06/2024, Expires: 08/05/2024 [facility] Comment on above: Expected: 05/06/2024, Expires: Start: 05-06-2024 End: 08-05-2024 RETICULOCYTE COUNT RETICULOCYTE COUNT Lab Routine Anemia, unspecified type Expected: 05/06/2024, Expires: 08/05/2024 [facility] Comment on above: Expected: 05/06/2024, Expires: Start: 05-06-2024 End: 05-06-2024 ambulatory 05/06/2024 1:00 PM EDT Visit (SP) Office Hematology/Oncology [address] [place] [address] [place] [address] [place] [address] HUMAN RESOURCE OFFICER/THROMBOCYTOPENIA/REF. VALERY QUINTEROS* Hematology/Oncology Comment on above: HUMAN RESOURCE OFFICER/THROMBOCYTOPENIA/REF.VALERY ELIJAH N* Start: 05-03-2024 End: 08-02-2024 Folate [Mass/volume] in Serum or Plasma FOLATE, SERUM Lab Routine Other iron deficiency anemia Expected: 05/03/2024, Expires: 08/02/2024 [facility] Work Phone: Comment on above: Expected: 05/03/2024, Expires: Start: 05-02-2024 End: 05-02-2024 Patient encounter procedure 05/02/2024 3:20 PM EDT Office Visit Family [facility] [place] [address] [place], [place] [address] Valery Quinteros APRN.ASSISTANT PORTFOLIO MANAGER [address] [place], [place] [id number] follow up DM/iron deficiency [facility] [place] Comment on above: follow up DM/iron deficiency Start: 05-02-2024 End: 08-01-2024 Comprehensive metabolic 2000 panel - Serum or Plasma [facility] Comment on above: Expected: 05/02/2024, Expires: Start: 05-02-2024 End: 08-01-2024 Iron and Iron binding capacity panel - Serum or Plasma [facility] Work Phone: Comment on above: Expected: 05/02/2024, Expires: Start: 05-02-2024 End: 05-02-2024 Patient encounter procedure 05/02/2024 10:20 AM EDT Office Visit Family Medicine [place] [address] [place] [address] Valery Quinteros APRN.ASSISTANT PORTFOLIO MANAGER [address] [place] [address] follow up DM/iron deficiency [facility] Comment on above: follow up DM/iron deficiency Start: 04-28-2024 End: 04-28-2024 Admission to same day surgery center 04/28/2024 8:30 AM EDT - 04/28/2024 11:13 AM EDT Surgery [facility] Surgery [address] [place] [address] Ryan Alonzo MD [address] [place] [address] ARTHROPLASTY ACETABULAR AND PROX FEM PROSTH TOTAL HIP ANTERIOR APPROACH W/W/O AUTOGRAFT [place] on Back up [facility] Surgery Comment on above: ARTHROPLASTY ACETABULAR AND PROX FEM PRO STH TOTAL HIP ANTERIOR APPROACH W/W/O AUTOGRAFT [place] on Back up Start: 04-28-2024 End: 04-28-2024 Arthrp acetblr/prox fem prostc agrft/algrft ARTHROPLASTY ACETABULAR AND PROX FEM PROSTH TOTAL HIP ANTERIOR APPROACH W/W/O AUTOGRAFT Primary osteoarthritis of right hip 04/28/2024 8:30 AM EDT ME OR Start: 04-28-2024 Subsequent hospital visit by physician 04/28/2024 8:30 AM EDT Hospital Encounter [facility] Surgery [address] [place] [address] yRan Alonzo MD [address] [place] [address] Primary osteoarthritis of right hip [M16.11] [facility] Surgery Comment on above: Primary osteoarthritis of right hip [M16 .11] Start: 04-24-2024 Covid-19 Vaccine () Covid-19 Vaccine () [facility] Start: 04-24-2024 Covid-19 Vaccine ( season) Covid-19 Vaccine () [facility] Start: 04-24-2024 Influenza vaccination Influenza Vaccine (#1) [facility] Start: 04-16-2024 DIABETES SCREEN DIABETES SCREEN [facility] Start: 04-15-2024 End: 07-15-2024 Ferritin [Mass/volume] in Serum or Plasma [facility] Work Phone: Comment on above: Expected: 04/15/2024, Expires: Start: 04-15-2024 End: 07-15-2024 Iron and Iron binding capacity panel - Serum or Plasma [facility] Comment on above: Expected: 04/15/2024, Expires: Start: 04-15-2024 End: 04-15-2024 Anesthesia consultation 04/15/2024 9:20 AM EDT PAT Pre Anesthesia [address] [place] [address] 1, Pacc [place] [address] [place] [address] 04/28 ARTHROPLASTY ACETABULAR AND PROX FEM PROSTH TOTAL HIP ANTERIOR APPROACH W/W/O AUTOGRAFT [place] on Back up [64692] - Hip - Right Pre Anesthesia Comment on above: 04/28 ARTHROPLASTY ACETABULAR AND PROX FEM PROSTH TOTAL HIP ANTERIOR APPROACH W/W/O AUTOGRAFT [place]ante [place] on Back up [42259] - Hip - Right Start: 04-11-2024 End: 04-11-2024 Anesthesia consultation Pre Anesthesia Comment on above: ARTHROPLASTY ACETABULAR AND PROX FEM PRO STH TOTAL HIP ANTERIOR APPROACH W/W/O AUTOGRAFT [place] on Back up [[id number]] - Hip - Right Start: 04-05-2024 End: 04-05-2024 Patient encounter procedure 04/05/2024 9:00 AM EDT Office Visit Family [facility] [place] [address] [place] [address] Lizeth Saini PA-C [address] [place] [address] 3 month follow up Family [facility] Comment on above: 3 month follow up Start: 04-02-2024 Hepatitis B surface antibody level LDL CHOLESTEROL [facility] Start: 03-21-2024 End: 03-21-2024 Patient encounter procedure 03/21/2024 12:40 PM EDT Office Visit Family [facility] [place] [address] [place] [address] Valery Quinteros APRN.ASSISTANT PORTFOLIO MANAGER [address] [place] [address] Follow up Family Medicine [place] Comment on above: Follow up Start: 03-02-2024 End: 03-02-2024 Patient encounter procedure 03/02/2024 10:00 AM EDT Office Visit Cardiology [address] [place] [phone] Jeanie Tavares DO [address] [place] [phone] yearly follow up Cardiology Comment on above: yearly follow up Start: 02-29-2024 End: 05-30-2024 CBC W Auto Differential panel - Blood COMPLETE BLOOD COUNT AND DIFFERENTIAL Lab Routine Primary osteoarthritis of right hip Expected: 02/29/2024, Expires: 05/30/2024 [facility] Comment on above: Expected: 02/29/2024, Expires: Start: 02-29-2024 End: 05-30-2024 Comprehensive metabolic 2000 panel - Serum or Plasma COMPREHENSIVE METABOLIC PANEL Lab Routine Primary osteoarthritis of right hip Expected: 02/29/2024, Expires: 05/30/2024 [facility] Comment on above: Expected: 02/29/2024, Expires: Start: 02-29-2024 End: 05-30-2024 Hemoglobin A1c in Blood HEMOGLOBIN A1C Lab Routine Primary osteoarthritis of right hip Expected: 02/29/2024, Expires: 05/30/2024 [facility] Comment on above: Expected: 02/29/2024, Expires: Start: 02-29-2024 End: 05-30-2024 TYPE AND SCREEN,30 DAY TYPE AND SCREEN,30 DAY Blood Bank Routine Primary osteoarthritis of right hip Expected: 02/29/2024, Expires: 05/30/2024 [facility] Work Phone: Comment on above: Expected: 02/29/2024, Expires: Start: 02-26-2024 End: 02-26-2024 Patient encounter procedure 02/26/2024 2:00 PM EDT Office Visit Orthopaedics [address] [place] [address] Asif Gonzales PA-C [address] [address] Arthritis of right hip [M16.11] Orthopaedics Comment on above: Arthritis of right hip [M16.11] Start: 02-23-2024 End: 02-23-2024 Patient encounter procedure 02/23/2024 11:20 AM EDT Office Visit [facility] [place] [address] [place] [address] Lizeth Saini PA-C [address] [place] [address] 3 week f/u [facility] [place] Comment on above: 3 week f/u Start: 02-15-2024 End: 05-16-2024 CBC W Auto Differential panel - Blood COMPLETE BLOOD COUNT AND DIFFERENTIAL Lab Routine Mild anemia Expected: 02/15/2024, Expires: 05/16/2024 [facility] Comment on above: Expected: 02/15/2024, Expires: Start: 01-21-2024 End: 01-21-2024 Patient encounter procedure 01/21/2024 1:00 PM EDT Appointment Radiology [address] [place], [place] [phone] BPH with obstruction/lower urinary tract symptoms [N40.1, N13.8] Radiology Comment on above: BPH with obstruction/lower urinary tract symptoms [N40.1, N13.8] Start: 01-09-2024 End: 04-09-2024 Basic metabolic 2000 panel - Serum or Plasma BASIC METABOLIC PNL Lab Routine Impaired fasting glucose Stage 3a chronic kidney disease (HCC) Expected: 01/09/2024, Expires: 04/09/2024 [facility] Work Phone: Comment on above: Expected: 01/09/2024, Expires: Start: 01-09-2024 End: 04-09-2024 CBC W Auto Differential panel - Blood CBC + DIFF Lab Routine Stage 3a chronic kidney disease (HCC) Expected: 01/09/2024, Expires: 04/09/2024 [facility] Work Phone: Comment on above: Expected: 01/09/2024, Expires: Start: 01-07-2024 End: 01-07-2024 Patient encounter procedure 01/07/2024 11:00 AM EDT Office Visit [facility] [address] [place], [place] [id number] Lizeth Saini PA-C [address] [place], [place] [id number] 3 month follow up [facility] Comment on above: 3 month follow up Start: 10-01-2023 Hepatitis B surface antibody level LDL CHOLESTEROL [facility] Start: 09-29-2023 Covid-19 Vaccine (5 - Pfizer series) Covid-19 Vaccine (5 - Pfizer series) [facility] Start: 09-29-2023 Covid-19 Vaccine () Covid-19 Vaccine () [facility] Start: 09-26-2023 Patient discharge [facility] Start: 09-25-2023 Following clinical pathway protocol [facility] Start: 09-25-2023 Referral to tumbler dyeing machine operator [facility] Start: 09-24-2023 Troponin I measurement [facility] Start: 09-24-2023 Following clinical pathway protocol [facility] Start: 09-24-2023 Assessment of risk of venous thromboembolism [facility] Start: 09-24-2023 Inhalation therapy procedure [facility] Start: 09-24-2023 Insertion of catheter into peripheral vein [facility] Start: 09-24-2023 Measuring intake and output [facility] Start: 09-24-2023 Providing care according to standard [facility] Start: 09-24-2023 Provision of activity privileges [facility] Start: 09-24-2023 [facility] Start: 09-24-2023 Hospital admission, emergency, from emergency room, medical nature [facility] Start: 09-24-2023 Verification routine [facility] Start: 09-24-2023 Admission procedure [facility] Start: 09-24-2023 [facility] Start: 09-24-2023 End: 09-24-2023 Blood culture [facility] Start: 09-24-2023 Bacteria identified in Blood by Culture Blood Culture [facility] Start: 09-24-2023 Bacteria identified in Urine by Culture [facility] Start: 09-24-2023 Urine culture Urine Culture [facility] Start: 09-23-2023 Arthrocentesis aspir&/inj major jt/bursa w/o us DRAIN/INJ JOINT/BURSA W/O US [facility] Start: 08-24-2023 Advance Directive Discussion Advance Directive Discussion [facility] Start: 08-24-2023 Behavioral Health Screening Behavioral Health Screening [facility] Start: 08-24-2023 Depression Assessment Depression Assessment [facility] Start: 08-04-2023 SHINGRIX VACCINE (2 of 3) SHINGRIX VACCINE (2 of 3) [facility] Comment on above: Postponed from 04/10/2011 (Declined at t his time) Start: 08-04-2023 Urine microalbumin profile [facility] Comment on above: Postponed from 03/13/2021 (Declined at t his time) Start: 07-24-2023 Hepatitis B surface antibody level LDL CHOLESTEROL [facility] Start: 04-24-2023 Influenza vaccination [facility] Start: 03-31-2023 End: 05-31-2023 CBC W Auto Differential panel - Blood CBC + DIFF Lab Routine 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) Essential hypertension, benign Mixed hyperlipidemia Iron deficiency anemia, unspecified iron deficiency anemia type TIA (transient ischemic attack) Expected: 03/31/2023, Expires: 05/31/2023 [facility] Work Phone: Comment on above: Expected: 03/31/2023, Expires: Start: 03-31-2023 End: 05-31-2023 Comprehensive metabolic 2000 panel - Serum or Plasma COMP METABOLIC PANEL Lab Routine 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) Essential hypertension, benign Mixed hyperlipidemia Impaired fasting glucose Stage 3a chronic kidney disease (HCC) TIA (transient ischemic attack) Expected: 03/31/2023, Expires: 05/31/2023 [facility] Work Phone: Comment on above: Expected: 03/31/2023, Expires: Start: 03-31-2023 End: 05-31-2023 Hemoglobin A1c in Blood HGB A1C Lab Routine Impaired fasting glucose Expected: 03/31/2023, Expires: 05/31/2023 [facility] Work Phone: Comment on above: Expected: 03/31/2023, Expires: Start: 03-31-2023 End: 05-31-2023 Lipid 1996 panel - Serum or Plasma LIPID PANEL BASIC Lab Routine Mixed hyperlipidemia Expected: 03/31/2023, Expires: 05/31/2023 [facility] Work Phone: Comment on above: Expected: 03/31/2023, Expires: Start: 03-31-2023 End: 05-31-2023 Magnesium [Mass/volume] in Serum or Plasma MAGNESIUM BLD Lab Routine Gastroesophageal reflux disease, unspecified whether esophagitis present Expected: 03/31/2023, Expires: 05/31/2023 [facility] Work Phone: Comment on above: Expected: 03/31/2023, Expires: Start: 03-31-2023 End: 05-31-2023 Thyrotropin [Units/volume] in Serum or Plasma TSH BLD Lab Routine Tiredness Expected: 03/31/2023, Expires: 05/31/2023 [facility] Work Phone: Comment on above: Expected: 03/31/2023, Expires: Start: 02-03-2023 Hepatitis B surface antibody level LDL CHOLESTEROL [facility] Start: 02-02-2023 End: 04-04-2023 Comprehensive metabolic 2000 panel - Serum or Plasma COMP METABOLIC PANEL Lab Routine Essential hypertension, benign Impaired fasting glucose Dizziness Gait instability Expected: 02/02/2023, Expires: 04/04/2023 [facility] Work Phone: Comment on above: Expected: 02/02/2023, Expires: 3 Start: 12-28-2022 End: 02-27-2023 CBC panel - Blood by Automated count CBC Lab Routine 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) Essential hypertension, benign Gastroesophageal reflux disease, unspecified whether esophagitis present Expected: 12/28/2022, Expires: 02/27/2023 [facility] Work Phone: Comment on above: Expected: 12/28/2022, Expires: 3 Start: 12-28-2022 End: 02-27-2023 Comprehensive metabolic 2000 panel - Serum or Plasma COMP METABOLIC PANEL Lab Routine 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) Essential hypertension, benign Mixed hyperlipidemia Impaired fasting glucose Stage 3a chronic kidney disease (HCC) Elevated serum creatinine Expected: 12/28/2022, Expires: 02/27/2023 [facility] Work Phone: Comment on above: Expected: 12/28/2022, Expires: 3 Start: 09-30-2022 End: 11-30-2022 ALBUMIN/CREAT RATIO RND UR ALBUMIN/CREAT RATIO RND UR Lab Routine Elevated serum creatinine Expected: 09/30/2022, Expires: 11/30/2022 [facility] Work Phone: Comment on above: Expected: 09/30/2022, Expires: 3 Start: 09-30-2022 End: 11-30-2022 Lipid 1996 panel - Serum or Plasma LIPID PANEL BASIC Lab Routine Mixed hyperlipidemia Expected: 09/30/2022, Expires: 11/30/2022 [facility] Work Phone: Comment on above: Expected: 09/30/2022, Expires: 3 Start: 09-24-2022 COVID-19 VACCINE (5 - Pfizer series) COVID-19 VACCINE (5 - Pfizer series) [facility] Start: 08-24-2022 ADVANCE DIRECTIVE DISCUSSION ADVANCE DIRECTIVE DISCUSSION [facility] Start: 08-24-2022 DEPRESSION ASSESSMENT DEPRESSION ASSESSMENT [facility] Start: 08-08-2022 Hepatitis B surface antibody level LDL CHOLESTEROL [facility] Start: 08-04-2022 End: 10-04-2022 Thyrotropin [Units/volume] in Serum or Plasma [facility] Work Phone: Comment on above: Expected: 08/04/2022, Expires: 3 Start: 08-01-2022 End: 10-01-2022 Comprehensive metabolic 2000 panel - Serum or Plasma COMP METABOLIC PANEL Lab Routine Essential hypertension, benign Stage 3a chronic kidney disease (HCC) Expected: 08/01/2022, Expires: 10/01/2022 [facility] Work Phone: Comment on above: Expected: 08/01/2022, Expires: 3 Start: 08-01-2022 End: 10-01-2022 Hemoglobin A1c in Blood HGB A1C Lab Routine Impaired fasting glucose Expected: 08/01/2022, Expires: 10/01/2022 [facility] Work Phone: Comment on above: Expected: 08/01/2022, Expires: 3 Start: 08-01-2022 End: 10-01-2022 Lipid 1996 panel - Serum or Plasma LIPID PANEL BASIC Lab Routine Mixed hyperlipidemia Expected: 08/01/2022, Expires: 10/01/2022 [facility] Work Phone: Comment on above: Expected: 08/01/2022, Expires: 3 Start: 06-11-2022 End: 08-11-2022 Platelets [#/volume] in Blood PLTCT (PLATELET COUNT) Lab Routine Thrombocytopenia (HCC) Expected: 06/11/2022, Expires: 08/11/2022 [facility] Work Phone: Comment on above: Expected: 06/11/2022, Expires: 2 Start: 05-02-2022 End: 07-02-2022 CBC W Auto Differential panel - Blood CBC + DIFF Lab Routine Iron deficiency anemia, unspecified iron deficiency anemia type Thrombocytopenia, unspecified (HCC) Expected: 05/02/2022, Expires: 07/02/2022 [facility] Work Phone: Comment on above: Expected: 05/02/2022, Expires: 2 Start: 04-24-2022 Influenza vaccination INFLUENZA (#1) [facility] Start: 12-01-2021 COVID-19 VACCINE (4 - Booster for Pfizer series) COVID-19 VACCINE (4 - Booster for Pfizer series) [facility] Start: 09-27-2021 COVID-19 VACCINE (4 - Booster for Pfizer series) COVID-19 VACCINE (4 - Booster for Pfizer series) [facility] Start: 08-24-2021 ADVANCE DIRECTIVE DISCUSSION ADVANCE DIRECTIVE DISCUSSION [facility] Start: 08-24-2021 DEPRESSION ASSESSMENT DEPRESSION ASSESSMENT [facility] Start: 03-13-2021 Urine microalbumin profile [facility] Start: 2013 RSV Vaccine (1 - 1-dose 75+ series) RSV Vaccine (1 - 1-dose 75+ series) [facility] Start: 04-10-2011 SHINGRIX VACCINE (2 of 3) SHINGRIX VACCINE (2 of 3) [facility] Start: 1998 RSV Vaccine (1 - 1-dose 60+ series) RSV Vaccine (1 - 1-dose 60+ series) [facility] Start: 1958 Anxiety Screening Anxiety Screening [facility] Start: 1958 Depression Screening Depression Screening [facility] End: 08-12-2025 CT Hip - right WO contrast CT HIP WO IVCON RIGHT Radiology Routine Primary osteoarthritis of right hip 1 Occurrences starting 07/13/2024 until 08/12/2025 [facility] Work Phone: Comment on above: 1 Occurrences starting 07/13/2024 until 08/12/2025 ECG COMPLETE ECG COMPLETE ECG 03/03/2023 1:20 PM EDT [facility] ECG COMPLETE ECG COMPLETE ECG 03/02/2024 10:09 AM EDT [facility] ECG COMPLETE ECG COMPLETE ECG 08/30/2024 10:05 AM EST [facility] Hemoglobin.noelle lópezlower [Presence] in Stool by Immunoassay IMMUNOCHEMICAL FECAL OCCULT BLOOD TEST Lab Routine Mild anemia Ordered: 01/15/2024 [facility] Work Phone: Comment on above: Ordered: 01/15/2024 Hemoglobin.gastroradha lópezlower [Presence] in Stool by Immunoassay IMMUNOCHEMICAL FECAL OCCULT BLOOD TEST Lab Routine Iron deficiency anemia due to chronic blood loss Ordered: 04/19/2024 [facility] Work Phone: Comment on above: Ordered: 04/19/2024 IMAGING GUIDED ASP/I [place] HIP JT/BURSA RIGHT IMAGING GUIDED ASP/INJ HIP JT/BURSA RIGHT Radiology Routine Right hip pain Primary osteoarthritis of right hip Ordered: 09/01/2022 [facility] Work Phone: Comment on above: Ordered: 09/01/2022 IMAGING GUIDED ASP/I [place] HIP JT/BURSA RIGHT IMAGING GUIDED ASP/INJ HIP JT/BURSA RIGHT Radiology Routine Primary osteoarthritis of right hip Right hip pain Ordered: 10/02/2022 [facility] Work Phone: Comment on above: Ordered: 10/02/2022 Natriuretic peptide. B prohormone N-Terminal [Mass/volume] in Serum or Plasma [facility] OUTSIDE VENDOR CARDI AC OUTPATIENT EXTENDED RHYTHM RECORDING (WITHOUT TELEMETRY) OUTSIDE VENDOR CARDIAC OUTPATIENT EXTENDED RHYTHM RECORDING (WITHOUT TELEMETRY) Holter Routine PAF (paroxysmal atrial fibrillation) (HCC) Ordered: 10/29/2023 [facility] Work Phone: Comment on above: Ordered: 10/29/2023 Patient Education ED Fall Prevention [facility] Work Phone: Patient referral [facility] Work Phone: POST VOID RESIDUAL POST VOID RES IDUAL Procedures Routine Nocturia Ordered: 10/13/2023 [facility] Work Phone: Comment on above: Ordered: 10/13/2023 PT PLAN OF CARE CERTIFICATION PT PLAN OF CARE CERTIFICATION Procedures Routine Right hip pain Ordered: 02/03/2022 [facility] Work Phone: Comment on above: Ordered: 02/03/2022 PT PLAN OF CARE CERTIFICATION PT PLAN OF CARE CERTIFICATION Procedures Routine Right hip pain Ordered: 03/13/2022 [facility] Work Phone: Comment on above: Ordered: 03/13/2022 Troponin T.cardiac [Mass/volume] in Serum or Plasma by High sensitivity method [facility] URINE OB DIP B/O URINE OB DIP B/ O Lab Routine BPH with obstruction/lower urinary tract symptoms Ordered: 01/07/2024 [facility] Comment on above: Ordered: 01/07/2024 End: 10-20-2024 US Carotid arteries - bilateral US CAROTID ARTERIES [facility] Lab Routine Stenosis of left carotid artery 1 Occurrences starting 10/20/2023 until 10/20/2024 [facility] Work Phone: Comment on above: 1 Occurrences starting 10/20/2023 until 10/20/2024 End: 12-20-2025 US Carotid arteries - bilateral US CAROTID ARTERIES [facility] Lab Routine Stenosis of left carotid artery 1 Occurrences starting 12/20/2024 until 12/20/2025 [facility] Work Phone: Comment on above: 1 Occurrences starting 12/20/2024 until 12/20/2025 End: 03-01-2026 US Lower extremity vein - bilateral US DVT LOWER BILATERAL Radiology Routine Edema, lower extremity 1 Occurrences starting 01/30/2025 until 03/01/2026 [facility] Work Phone: Comment on above: 1 Occurrences starting 01/30/2025 until 03/01/2026 End: 02-05-2025 US Urinary bladder US PELVIS BLADDER Radiology Routine BPH with obstruction/lower urinary tract symptoms 1 Occurrences starting 01/07/2024 until 02/05/2025 [facility] Work Phone: Comment on above: 1 Occurrences starting 01/07/2024 until 02/05/2025 US Urinary bladder US PELVIS ADORE DDER Radiology Routine BPH with obstruction/lower urinary tract symptoms 01/21/2024 1:37 PM EDT [facility] Work Phone: End: 06-03-2024 XR HIP GENERAL 3V PELV/AP/LAT RIGHT XR HIP GENERAL 3V PELV/AP/LAT RIGHT Radiology Routine Pain in right hip 1 Occurrences starting 05/05/2023 until 06/03/2024 [facility] Work Phone: Comment on above: 1 Occurrences starting 05/05/2023 until 06/03/2024 End: 03-25-2025 XR Pelvis and Hip - right AP and Lateral frog XR HIP GENERAL 3V PELV/AP/LAT RIGHT Radiology Routine Pain in right hip 1 Occurrences starting 02/24/2024 until 03/25/2025 [facility] Work Phone: Comment on above: 1 Occurrences starting 02/24/2024 until 03/25/2025 XR Pelvis and Hip - right AP and Lateral frog XR HIP GENERAL 3V PELV/AP/LAT RIGHT Radiology Routine Pain in right hip 02/26/2024 1:19 PM EDT [facility] End: 12-16-2025 XR Pelvis and Hip - right AP and Lateral frog XR HIP GENERAL 3V PELV/AP/LAT RIGHT Radiology Routine Status post right hip replacement 1 Occurrences starting 11/16/2024 until 12/16/2025 [facility] Work Phone: Comment on above: 1 Occurrences starting 11/16/2024 until 12/16/2025 XR Pelvis and Hip - right AP and Lateral frog XR HIP GENERAL 3V PELV/AP/LAT RIGHT Radiology Routine Status post right hip replacement 11/30/2024 1:32 PM EDT [facility] Work Phone: [facility] Immunizations Immunization Date Immunization Notes Care Provider Fa cili 05-26-2024 COVID-19 vaccine, ag e 12+ yr (PFIZER-BIONTECH COMIRNATY) Valery Suppan PROTOZOOLOGIST.ASSISTANT PORTFOLIO MANAGER Work Phone: [facility] 05-02-2024 influenza, high dose seasonal, preservative-free Valery Suppan PROTOZOOLOGIST.ASSISTANT PORTFOLIO MANAGER Work Phone: [facility] 03-21-2024 tetanus toxoid, redu magda diphtheria toxoid, and acellular pertussis vaccine, adsorbed Valery Suppan PROTOZOOLOGIST.ASSISTANT PORTFOLIO MANAGER Work Phone: [facility] 05-29-2023 COVID-19 vaccine, ag e 12+ yr, season (PFIZER-BIONTECH) Immunization [facility] Work Phone: [facility] Work Phone: 05-29-2023 influenza (HD-IIV4) vaccine, age 65+ yr, high dose, quadrivalent, PF (FLUZONE HIGH-DOSE) Immunization [facility] Work Phone: [facility] Work Phone: 05-29-2023 influenza virus vaccine, unspecified formulation LORI Saini PA-C Work Phone: [facility] 05-24-2022 COVID-19 booster vaccine, age 12+ yr, bivalent (PFIZER-BIONTECH) Immunization [facility] Work Phone: [facility] Work Phone: 05-24-2022 influenza, high-dose , quadrivalent vaccine (FLUZONE HIGH DOSE QUADRIVALENT) Immunization [facility] Work Phone: [facility] 05-24-2022 influenza virus vaccine, unspecified formulation Cristiano Ramos MD Work Phone: [facility] 06-04-2021 Influenza virus vaccine [place] ALEJANDRA Work Phone: [facility] 06-04-2021 influenza, high-dose , quadrivalent vaccine (FLUZONE HIGH DOSE QUADRIVALENT) LORI Saini PA-C Work Phone: [facility] 10-04-2020 COVID-19 vaccine, ag e 12+ yr (PFIZER-BIONTECH - PURPLE TOP) NA Saini PA-C Work Phone: [facility] Work Phone: 2020 COVID-19 vaccine, ag e 12+ yr (PFIZER-BIONTECH - PURPLE TOP) NA Saini PA-C Work Phone: [facility] 05-14-2020 influenza, high-dose , quadrivalent vaccine (FLUZONE HIGH DOSE QUADRIVALENT) NA Saini PA-C Work Phone: [facility] 06-02-2019 influenza, high dose seasonal, preservative-free NA Saini PA-C Work Phone: [facility] 06-26-2018 influenza, high dose seasonal, preservative-free NA Saini PA-C Work Phone: [facility] 05-06-2017 influenza, high dose seasonal, preservative-free NA Saini PA-C Work Phone: [facility] Work Phone: 05-07-2016 influenza, high dose seasonal, preservative-free NA Saini PA-C Work Phone: [facility] 04-25-2015 pneumococcal conjuga te vaccine, 13 valent NA Saini PA-C Work Phone: [facility] Work Phone: 05-30-2014 influenza, high dose seasonal, preservative-free NA Saini PA-C Work Phone: [facility] 05-16-2013 influenza nasal, unspecified formulation NA Saini PA-C Work Phone: [facility] 04-25-2011 influenza nasal, unspecified formulation NA Saini PA-C Work Phone: [facility] 03-13-2011 tetanus toxoid, redu magda diphtheria toxoid, and acellular pertussis vaccine, adsorbed NA Saini PA-C Work Phone: [facility] Work Phone: 02-13-2011 zoster vaccine, live NA Joel on PA-C Work Phone: [facility] Work Phone: 06-05-2009 influenza, seasonal, injectable NA Saini PA-C Work Phone: [facility] 06-21-2007 influenza virus vaccine, unspecified formulation NA Saini PA-C Work Phone: [facility] 06-22-2006 influenza virus vaccine, unspecified formulation NA Saini PA-C Work Phone: [facility] Work Phone: 05-29-2006 diphtheria and tetan us toxoids, adsorbed for pediatric use NA Saini PA-C Work Phone: [facility] Work Phone: 07-24-2005 influenza virus vaccine, whole virus NA Saini PA-C Work Phone: [facility] Work Phone: 07-12-2004 pneumococcal polysaccharide vaccine, 23 valent NA Saini PA-C Work Phone: [facility] Work Phone: 05-24-2004 influenza virus vaccine, whole virus NA Saini PA-C Work Phone: [facility] Work Phone: 10-14-2003 pneumococcal polysaccharide vaccine, 23 valent NA Saini PA-C Work Phone: [facility] 05-24-2003 influenza virus vaccine, whole virus NA Saini PA-C Work Phone: [facility] Work Phone: 07-04-1999 pneumococcal polysaccharide vaccine, 23 valent NA Saini PA-C Work Phone: [facility] Work Phone: 10-14-1998 pneumococcal polysaccharide vaccine, 23 valent NA Saini PA-C Work Phone: [facility] Work Phone: Payers Date Payer Category Payer Self-pay [id number] 2021 Medicare HU[employer]NA MEDICARE HU[employer]NA MEDICARE PPO [id number] 2021-Present [phone] [place], [place] [address] PPO [id number] 2018 Medicare [id number] 2018 Medicare (Managed Care) HUMANA M EDMARLYSRE [id number] 2018 Private Health Insurance [id number] Unknown [id number] [id number] .2.462 Unknown [id number] 2.16.840.1.669015.3.579 .2.462 Unknown [id number] 2.16840.1.979762.3.579 .2.462 Unknown [id number] 2.16.840.1.836830.3.579 .2.462 Unknown [id number] 2.16.840.1.997509.3.579 .2.462 Unknown [id number] 2.16.840.1.649720.3.579 .2.462 Unknown [id number] 2.16.840.1.734997.3.579 .2.462 Unknown [id number] 2.16.840.1.866978.3.579 .2.462 Unknown [id number] 2.16.840.1.245610.3.579 .2.462 Unknown [id number] 2.16.840.1.684290.3.579 .2.462 Unknown [id number] 2.16.840.1.039205.3.579 .2.462 Unknown [id number] 2.16.840.1.197409.3.579 .2.462 Unknown [id number] 2.16.840.1.647595.3.579 .2.462 Unknown [id number] 2.16.840.1.272547.3.579 .2.462 Unknown [id number] 2.16.840.1.656871.3.579 .2.462 Unknown [id number] 2.16.840.1.572876.3.579 .2.462 Unknown [id number] 2.16840.1.861220.3.579 .2.462 Unknown [id number] 2.16.840.1.512148.3.579 .2.462 Unknown [id number] 2..840.1.033115.3.579 .2.462 Unknown [id number] 2.16.840.1.225314.3.579 .2.462 Unknown [id number] 2.16.840.1.948995.3.579 .2.462 Unknown [id number] 2.16.840.1.560687.3.579 .2.462 Unknown [id number] 2.16.840.1.113959.3.579 .2.462 Unknown [id number] 2.16.840.1.178268.3.579 .2.462 Unknown [id number] 2.16.840.1.524199.3.579 .2.462 Unknown [id number] 2.16.840.1.991176.3.579 .2.462 Unknown [id number] 2.16.840.1.969740.3.579 .2.462 Unknown [id number] 2.16.840.1.697061.3.579 .2.462 Unknown [id number] 2.16.840.1.955247.3.579 .2.462 Unknown [id number] 2.16.840.1.101161.3.579 .2.462 Unknown [id number] 2.840.1.747272.3.579 .2.462 Social History Date Type Detail Facility Start: 07-15-2021 End: 05-02-2024 Tobacco smoking status NHIS Ex-smoker [facility] Start: [birth year]-24-1957 End: 08-24-1984 History of tobacco use Current smoker [facility] Start: 05-20-2021 End: 12-20-2024 Alcohol intake Current drinker of alcohol (finding) [facility] Start: 04-30-2016 History SDOH Alcohol Comment 2 beers a day [facility] Start: 05-30-2014 End: 06-03-2022 Tobacco Comment QUIT at age 44, started at 15 [facility] Start: 1940 Sex Assigned At Not on file C [facility] Start: 08-14-2021 End: 05-23-2022 Exposure to SARS-CoV-2 (event) Not sure [facility] Start: 08-24-1957 End: 08-24-1984 History of tobacco use Cigarette Smoker [facility] Start: 07-15-2021 End: 05-02-2024 Tobacco use and exposure Smokeless tobacco non-user [facility] Start: 01-07-2023 History SDOH Food Worry 1 [facility] Start: 01-07-2023 History SDOH Transpo rt Med 2 [facility] Start: 12-29-2022 End: 03-03-2023 History of Social function [facility] Work Phone: Start: 12-29-2022 End: 03-03-2023 Tobacco use panel [facility] Work Phone: Adult Depression Screening Assessment 1 [facility] Work Phone: (I/We) worried wheth er (my/our) food would run out before (I/we) got money to buy more. Never true [facility] Work Phone: Start: 09-24-2023 End: 09-24-2023 Tobacco smoking status NHIS Unknown if ever smoked [facility] Start: 1940 Sex Assigned At Male [facility] Start: 10-13-2023 End: 03-21-2024 Alcohol intake Ex-drinker (finding) [facility] Start: 05-23-2024 Alcohol Comment occ [facility] Has the mSpoke, [place], or water [place] [employer] threatened to shut off services in your home in past 12Mo No [facility] Start: 11-07-2024 End: 11-28-2024 Sex Male (finding) [facility] Medical Equipment Procedure Code Equipment Code Equipment Origin al Text Equipment Identifier Dates Insert Acetabula r 40mm 0d E Hip X3 Trident - [id number] Start: 10-07-2024 Conical Distal S tem 20mm X 115mm - [id number] Start: 10-07-2024 Cable D[place] 2mm Vitallium Orthopedic Set Sleeve Bead Hip - [id number] Start: 10-07-2024 Body Mormon 25mm +20mm Cone Modular Revision Hip - [id number] Start: 10-07-2024 Cable D[place]iles 2mm Vitallium Orthopedic Set Sleeve Bead Hip - [id number] Start: 10-07-2024 Sleeve V40 +0mm Offset [place] Taper Titanium Adapter Hip - [id number] Start: 10-07-2024 Cable Dall-Miles 2mm Vitallium Orthopedic Set Sleeve Bead Hip - [id number] Start: 10-07-2024 Head 40mm Univer eloina Biolox Delta Tritanium Femoral Hip - [id number] Start: 10-07-2024 Shell Trident Ii 54mm E Tritanium Acetabular 5 Screw Hole Cluster Sterile - [id number] Start: 10-07-2024 Goals Date Patient Goal Desired Activity /State Personal health goal Comment on above: Formatting of this n ote might be different from the original. 2021 goal is to be healthy enough to continue to go golfing. Personal health goal Comment on above: Formatting of this n ote might be different from the original. Patient has the following Chronic Kidney Disease goals: Two PCP visits annually and Renal panel twice annually Education provided and reviewed with patient - sent on 03/09/23 CKD Zones Patient will meet these goals by: 03/09/24 (describe interventions done by PCC) Formatting of this n ote might be different from the original. Patient has the following Chronic Kidney Disease goals: Two PCP visits annually and Renal panel twice annually Education provided and reviewed with patient - sent on 03/09/23 CKD Zones and Renal Diet Basics Patient will meet these goals by: 03/09/24 (reviewed CKD zones with pt) 07/03/23- reviewed renal diet basics with pt Personal health goal Comment on above: Formatting of this n ote might be different from the original. Patient has the following general goals: Two PCP visits annually Patient Stated goal: wants to walk 5 miles without pain or 45 min - 60 min. continue to feed birds and water [place] Patient will meet these goals by 05/08/24 (describe interventions done by PCC) Personal health goal Comment on above: Formatting of this n ote might be different from the original. Patient has the following High Blood Pressure/Hypertension Goals: Two PCP Visits annually, Nurse / pharmacist / HUGO visit within 4 weeks after PCP visit with uncontrolled BP (>140/90), and BMP annually HTN Education given and reviewed with patient --sent on 07/03/23 Medication compliance education, Advise / educate patient to ask for repeat BP check at any appointment if first BP is >140/90, Checking your Blood Pressure at Home, High Blood Pressure: Talking to Your Health Care Provider, High Blood Pressure - When to Seek Emergency Care, and Your Sodium-Controlled Diet Patient will meet these goals by 07/03/24 (reviewed HTN goals with pt) Personal health goal Comment on above: Formatting of this n ote might be different from the original. 2021 goal is to be healthy enough to continue to go golfing. Functional Status Date Assessment Result Facility 11-28-2024 Functional status Ambulates [facility] Work Phone: 11-10-2024 Functional status Chair [facility] Work Phone: 11-09-2024 Functional status Assistive Tereza angy Rolling Walker [facility] Work Phone: 10-14-2024 Are you deaf, or do you have serious difficulty hearing No 10/14/2024 1:07 PM Tenisha Cr RN No [facility] 10-14-2024 Are you blind, or do you have serious difficulty seeing, even when wearing glasses No 10/14/2024 1:07 PM Tenisha Cr RN No [facility] 10-14-2024 Do you have serious difficulty walking or climbing stairs No 10/14/2024 1:07 PM Tenisha Cr RN No [facility] 10-14-2024 Do you have difficul ty dressing or bathing No 10/14/2024 1:07 PM Tenisha Cr RN No [facility] 10-14-2024 Because of a physica l, mental, or emotional condition, do you have difficulty doing errands alone such as visiting a physician's office or shopping No 10/14/2024 1:07 PM Tenisha Cr RN No [facility] 09-26-2023 Functional status Ambulates [facility] Work Phone: 11-20-2014 Are you deaf, or do you have serious difficulty hearing Yes 11/20/2014 9:22 AM EDAshli Zurita (Ramandeep)(Hist) Yes [facility] 11-20-2014 Are you blind, or do you have serious difficulty seeing, even when wearing glasses No 11/20/2014 9:22 AM EDAshli Zurita (Ramandeep)(Hist) No [facility] 11-20-2014 Do you have serious difficulty walking or climbing stairs No 11/20/2014 9:22 AM EDAshli Zurita (Ramandeep)(Hist) No [facility] 11-20-2014 Do you have difficul ty dressing or bathing No 11/20/2014 9:22 AM EDAshli Zurita (Ramandeep)(Hist) No [facility] 11-20-2014 Because of a physica l, mental, or emotional condition, do you have difficulty doing errands alone such as visiting a physician's office or shopping No 11/20/2014 9:22 AM EDT Ashli Xie)(Hist) No [facility] Mental Status Date Assessment Result Facility 11-28-2024 Cognitive function Voice/Name [facility] Work Phone: 11-25-2024 Cognitive function Voice/Name [facility] Work Phone: 11-10-2024 Cognitive function Voice/Name [facility] Work Phone: 11-07-2024 Cognitive function Level Of Cons ciousness Awake;Alert;Appropriate;Fol lows Commands [facility] Work Phone: 10-14-2024 Because of a physica l, mental, or emotional condition, do you have serious difficulty concentrating, remembering, or making decisions No 10/14/2024 1:07 PM Tenisha Cr RN No [facility] 09-26-2023 Cognitive function Voice/Name [facility] Work Phone: 09-24-2023 Cognitive function Level Of Cons ciousness Awake;Alert;Appropriate;Fol lows Commands [facility] Work Phone: 11-20-2014 Because of a physica l, mental, or emotional condition, do you have serious difficulty concentrating, remembering, or making decisions No 11/20/2014 9:22 AM EDT Ashli Xie)(Hist) No [facility] Clinical Notes 05-22-2021 to 02-16-2025 Telephone Encounter - Jayne Aguirre RN - 02/16/2025 12:31 PM EDTTelephone Encounter - Jayne Aguirre RN - 02/16/2025 12:31 PM EDTTelephone Encounter - Marychuy Bo MA - 02/14/2025 12:12 PM EDT Note Date & Type Note Facility 02-16-2025 Telephone encounter Note Patient call in for skin injury due to falling. Nurse Triage assessment completed with protocol recommending for disposition of Go to ED now. Patient to come into urgent care. Patient does not think that injury is too deep. Care advice reviewed with patient, patient stated understanding. Patient advised to contact office or seek evaluation in urgent care or ER if symptoms persist or gets worse. Answer Assessment - Initial Assessment Questions 1. MECHANISM: Patient fell at bottom of steps and landed on buttocks; patient has several lacerations that had issues getting bleeding to stop 2. DOMESTIC VIOLENCE AND ELDER ABUSE SCREENING: Denies 3. ONSET: 45 minutes ago 4. LOCATION: Buttocks 5. INJURY: Patient has lacerations to leg. Patient unsure what he hit when he fell. Patient did have hard time getting bleeding to stop. Patient states that lacerations are not longer bleeding. 6. OTHER SYMPTOMS: Dizziness 7. CAUSE: Lost Balance Answer Assessment - Initial Assessment Questions 1. APPEARANCE of INJURY: Patient states that he cut himself multiple times when he fell. 2. ONSET: 45 minutes ago 3. LOCATION: leg 4. SIZE: Unsure; currently covered in gauze 5. BLEEDING: Not bleeding now. Had difficulty getting the bleeding to stop. 6. MECHANISM: Patient reached the bottom of steps. His phone rang in his pocket which startled him and he lost his balance. Patient is unsure what cut his leg up. 7. TETANUS: 03/21/2024 Protocols used: Falls and Ijhrhuo-EQLNT-PZ, Skin Vhfsnl-XAVUC-YF [facility] 02-16-2025 Miscellaneous Notes Patient call in for skin injury due to falling. Nurse Triage assessment completed with protocol recommending for disposition of Go to ED now. Patient to come into urgent care. Patient does not think that injury is too deep. Care advice reviewed with patient, patient stated understanding. Patient advised to contact office or seek evaluation in urgent care or ER if symptoms persist or gets worse. Answer Assessment - Initial Assessment Questions 1. MECHANISM: Patient fell at bottom of steps and landed on buttocks; patient has several lacerations that had issues getting bleeding to stop 2. DOMESTIC VIOLENCE AND ELDER ABUSE SCREENING: Denies 3. ONSET: 45 minutes ago 4. LOCATION: Buttocks 5. INJURY: Patient has lacerations to leg. Patient unsure what he hit when he fell. Patient did have hard time getting bleeding to stop. Patient states that lacerations are not longer bleeding. 6. OTHER SYMPTOMS: Dizziness 7. CAUSE: Lost Balance Answer Assessment - Initial Assessment Questions 1. APPEARANCE of INJURY: Patient states that he cut himself multiple times when he fell. 2. ONSET: 45 minutes ago 3. LOCATION: leg 4. SIZE: Unsure; currently covered in gauze 5. BLEEDING: Not bleeding now. Had difficulty getting the bleeding to stop. 6. MECHANISM: Patient reached the bottom of steps. His phone rang in his pocket which startled him and he lost his balance. Patient is unsure what cut his leg up. 7. TETANUS: 03/21/2024 Protocols used: Falls and Jsicrhi-CYOUT-ZD, Skin Vbliqh-RCGDY-SL documented in this encounter [facility] 02-14-2025 Telephone encounter Note Patient was made aware of the results. Patient verbalizes understanding. Marychuy Bo Ma [facility] 02-14-2025 Miscellaneous Notes Patient was made aware of the results. Patient verbalizes understanding. Marychuy Bo Ma ----- Message from Valery Quinteros sent at 02/13/2025 12:36 PM EDT ----- Please let patient know that there was no blood clot seen on his ultrasound. Please let patient know that there was no blood clot seen on his ultrasound. documented in this encounter [facility] 02-14-2025 Telephone encounter Note ----- Message from Valery Quinteros sent at 02/13/2025 12:36 PM EDT ----- Please let patient know that there was no blood clot seen on his ultrasound. [facility] 02-13-2025 Progress note Formatting of t his note might be different from the original. Please let patient know that there was no blood clot seen on his ultrasound. [facility] 02-07-2025 Telephone encounter Note The patient has been identified by name and date of : Yes Caregiver verified no other encounters exist for this prescription request: Yes Caregiver confirmed with patient/requestor that no other refills are due, in the near future, with this provider at this time: Yes The last office visit in the department: 01/23/2025 Does the patient have a future office visit with this provider/department: Yes 06/22/2025 Requested Prescriptions Pending Prescriptions Disp Refills docusate sodium (COLACE) 100 mg capsule 90 capsule 1 Sig: Take 1 capsule by mouth every morning. isosorbide mononitrate ER (IMDUR) 30 mg 24 hr tablet 45 tablet 3 Sig: Take 0.5 tablets by mouth once daily. metFORMIN ER (GLUMETZA) 500 mg 24 hr tablet 90 tablet 3 Sig: Take 1 tablet by mouth daily with breakfast. Lizeth Hodgson RN February 07, 2025 12:35 PM [facility] 02-07-2025 Miscellaneous Notes The patient has been identified by name and date of : Yes Caregiver verified no other encounters exist for this prescription request: Yes Caregiver confirmed with patient/requestor that no other refills are due, in the near future, with this provider at this time: Yes The last office visit in the department: 01/23/2025 Does the patient have a future office visit with this provider/department: Yes 06/22/2025 Requested Prescriptions Pending Prescriptions Disp Refills docusate sodium (COLACE) 100 mg capsule 90 capsule 1 Sig: Take 1 capsule by mouth every morning. isosorbide mononitrate ER (IMDUR) 30 mg 24 hr tablet 45 tablet 3 Sig: Take 0.5 tablets by mouth once daily. metFORMIN ER (GLUMETZA) 500 mg 24 hr tablet 90 tablet 3 Sig: Take 1 tablet by mouth daily with breakfast. Lizeth Hodgson RN February 07, 2025 12:35 PM documented in this encounter [facility] 02-01-2025 Telephone encounter Note Called pt. He states he got the wound on his ankle to stop bleeding for now. He was informed to take duricef BID that is was called into DDM. Patient verbalized understanding. He will try to have it picked up today and started. [facility] Work Phone: 02-01-2025 Miscellaneous Notes Called pt. He states he got the wound on his ankle to stop bleeding for now. He was informed to take duricef BID that is was called into DDM. Patient verbalized understanding. He will try to have it picked up today and started. ----- Message from Ryan Alonzo MD sent at 02/01/2025 1:39 PM EDT ----- Regarding: Patient needs to be on Abx I sent a script of duricef to his pharmacy, needs to be on it for this wound he has from his dog. Needs to pear picker Stephen documented in this encounter [facility] 02-01-2025 Telephone encounter Note ----- Message from Ryan Alonzo MD sent at 02/01/2025 1:39 PM EDT ----- Regarding: Patient needs to be on Abx I sent a script of sandy to his pharmacy, needs to be on it for this wound he has from his dog. Needs to pear picker Stephen [facility] 02-01-2025 Telephone encounter Note Pt reports his dog jumped on him and put a scratch on his left ankle. Reports he put bandaid on it but it won't stop bleeding. Advised patient to get a gauze and apply pressure for 10 min. Pt got a gauze and put pressure on it for 5 min and stated he thinks it stopped bleeding. Advised pt since he takes blood thinners if the bleeding doesn't stop after 10 min he would have to go to ER- advised pt he could call the squad if needed to take him to ER. Pt states he drives but agreeable to call squad if unable to stop the bleed. Pt agreeable to ER and / or call squad to take him to ER if bleeding does not stop after 10 min. in the backround told patient to get off the phone so he can put pressure on the bleed. Pt hung up. Answer Assessment - Initial Assessment Questions 1. DESCRIPTION: Pt reports his dog jumped up on his left leg around his ankle and put a scratch on his ankle and he's been bleeding for about 20 min. Reports it's bleeding through his sock and he's used 2 kleenex the blood soaked through. Reports he put bandaids on it. Reports he takes blood thinners. Pt states he did not put pressure on it for 10 minutes, only put bandaid on it. Advised pt to get a gauze pad and use it to apply pressure on the scratch for 10 min. We talked for about 5 min while patient put pressure on the scratch. Pt stated he thinks the bleeding is stopping but he will continue pressure for 5 more minutes. told patient to get off the phone so he can put pressure on the scratch. 2. SIZE: Not very big, just a scratch above his ankle. 3. BLEEDING: Yes 4. LOCATION: Left leg above ankle 5. ONSET: 20 min 6. MECHANISM: Dog scratched it. Protocols used: Skin Lzou-GOSGI-LE [facility] 02-01-2025 Miscellaneous Notes Pt reports his dog jumped on him and put a scratch on his left ankle. Reports he put bandaid on it but it won't stop bleeding. Advised patient to get a gauze and apply pressure for 10 min. Pt got a gauze and put pressure on it for 5 min and stated he thinks it stopped bleeding. Advised pt since he takes blood thinners if the bleeding doesn't stop after 10 min he would have to go to ER- advised pt he could call the squad if needed to take him to ER. Pt states he drives but agreeable to call squad if unable to stop the bleed. Pt agreeable to ER and / or call squad to take him to ER if bleeding does not stop after 10 min. in the backround told patient to get off the phone so he can put pressure on the bleed. Pt hung up. Answer Assessment - Initial Assessment Questions 1. DESCRIPTION: Pt reports his dog jumped up on his left leg around his ankle and put a scratch on his ankle and he's been bleeding for about 20 min. Reports it's bleeding through his sock and he's used 2 kleenex the blood soaked through. Reports he put bandaids on it. Reports he takes blood thinners. Pt states he did not put pressure on it for 10 minutes, only put bandaid on it. Advised pt to get a gauze pad and use it to apply pressure on the scratch for 10 min. We talked for about 5 min while patient put pressure on the scratch. Pt stated he thinks the bleeding is stopping but he will continue pressure for 5 more minutes. told patient to get off the phone so he can put pressure on the scratch. 2. SIZE: Not very big, just a scratch above his ankle. 3. BLEEDING: Yes 4. LOCATION: Left leg above ankle 5. ONSET: 20 min 6. MECHANISM: Dog scratched it. Protocols used: Skin Hnmg-MBDIN-BF documented in this encounter [facility] 01-30-2025 Telephone encounter Note Pt called and is notified of providers results and instructions. Pt voices understanding. Transferred to scheduled to set up appt Bilat leg US. Anay Mojica RN [facility] 01-30-2025 Miscellaneous Notes Pt called and is notified of providers results and instructions. Pt voices understanding. Transferred to scheduled to set up appt Bilat leg US. Anay Mojica RN Please let patient know that they did not run his D-dimer that I had ordered checking for blood clot. Since he had surgery, I would like to get an ultrasound of his legs making certain that he does not have a blood clot since his legs are swollen. Please facilitate scheduling. Kidney function is slightly worse. Make certain to drink 64 ounces of water daily to flush his kidneys. B12 level is low, consider jkor-prr-azjkisj B12 500 mcg daily. Anemia is improved. Iron level improved. All other labs look good. Spoke with Client services, specimen never received at [facility]. Lost in transit SERS created. Please call lab and see where the D-dimer is. It has been 7 days since that was drawn. Not really that helpful at this point. This was needed to help direct management. documented in this encounter [facility] 01-30-2025 Telephone encounter Note Please let patient know that they did not run his D-dimer that I had ordered checking for blood clot. Since he had surgery, I would like to get an ultrasound of his legs making certain that he does not have a blood clot since his legs are swollen. Please facilitate scheduling. Kidney function is slightly worse. Make certain to drink 64 ounces of water daily to flush his kidneys. B12 level is low, consider znpp-mwf-dypyvkb B12 500 mcg daily. Anemia is improved. Iron level improved. All other labs look good. [facility] 01-30-2025 Telephone encounter Note Spoke with Client services, specimen never received at [facility]. Lost in transit SERS created. [facility] 01-30-2025 Telephone encounter Note Please call lab and see where the D-dimer is. It has been 7 days since that was drawn. Not really that helpful at this point. This was needed to help direct management. [facility] 01-25-2025 Note HNO ID: [id number] Author: RYAN ALONZO MD Service: ? Author Type: Physician Type: Progress Notes Filed: 01/25/2025 15:25 Note Text: No show [facility] 01-23-2025 Instructions Valery Quinteros APRN.CNP - 01/23/2025 9:30 AM EDT - Have blood drawn for a complete blood count (CBC) to check your anemia as ordered. - Have a D-dimer blood test as ordered to rule out a clot in your leg. - Follow up in 4 months documented in this encounter [facility] 01-23-2025 Note [facility] 01-23-2025 History of Presen t illness Narrative This is a 84 year old male who presents today with: No chief complaint on file. HISTORY OF PRESENT ILLNESS: Angie Dutton is a 84 year old male. No chief complaint on file. Angie is an 84-year-old male with a history of anemia, hip replacement, and pre-diabetes, presenting for evaluation of fatigue, dyspnea, and edema. Fatigue: - Reports fatigue, particularly after physical activity. - Experiences low energy levels, leading to feelings of hopelessness. - Denies suicidal ideation. Dyspnea: - Occasional dyspnea during exertion, such as mopping floors and vacuuming. - Denies cough or wheezing. Edema: - Bilateral lower extremity edema, more pronounced in the right leg. - Difficulty wearing socks due to swelling. - Reports a significant decrease in swelling [facility]. - Denies chest pain, palpitations, or tachycardia. Hip Replacement: - Recent hip replacement surgery. - Difficulty with hip flexion, particularly when getting in and out of a car. - Uses assistive devices to aid in mobility and transfers. - Reports feeling misled about the recovery process, stating, They lied to me about hip replacement. Anemia: - History of anemia, currently under the care of Dr. Machado. - Recent episode of significant blood loss due to a dog bite on the shoulder, requiring emergency medical attention. Pre-Diabetes: - Diagnosed with pre-diabetes. - Monitors blood glucose levels at home, with recent readings in the 90s mg/dL. - Denies polyuria or polydipsia. Dietary Habits: - Consumes a muffin with blueberries and a bagel with cream cheese for breakfast daily. - Enjoys ice cream nightly, describing it as a binge. - Denies consuming other sweets. Recent Fall: - Sustained a fall approximately 3 weeks ago, resulting in a bruise and scrape on the side of the head. - Denies loss of consciousness during the fall. - Denies seizures or tremors. Recent Weight Changes: - Reports weight gain since returning home from a nursing facility. - Initially lost 20 lbs due to poor appetite and dissatisfaction with the food at the facility. - Regained weight after resuming regular eating habits. 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 PAST SURGICAL HISTORY Procedure Laterality Date ARTHROSCOPY KNEE DIAGNOSTIC W/WO SYNOVIAL BX SPX 2001 both COLONOSCOPY FLX DX W/COLLJ SPEC WHEN PFRMD 2001 Colonoscopy COLONOSCOPY FLX DX W/COLLJ SPEC WHEN PFRMD 07/13/2014 Colonoscopy COLONOSCOPY GEN ANES 11/26/2020 CORONARY ARTERY BYP W/VEIN & ARTERY GRAFT 3 VEIN 1981 CABG, three grafts EGD 11/26/2020 EGD 02/14/2021 EYE SURGERY HX FOOT SURGERY HX Left HEART SURGERY HX NEUROPLASTY &/TRANSPOS MEDIAN NRV CARPAL TUNNE 1998 Carpal tunnel decomp bilateral PAST SURGICAL HISTORY OF surgery on umbilicus due to bleeding PAST SURGICAL HISTORY OF 1961 umbical mass resection SIGMOIDOSCOPY FLX DX W/COLLJ SPEC BR/WA IF PFRMD 08/29/2004 Sigmoidoscopy TONSILLECTOMY HX ALLERGIES Sulfa (Sulfonamide Antibiotics) MEDICATIONS Current Outpatient Medications Medication Sig metoprolol succinate ER (TOPROL XL) 25 mg 24 hr tablet Take 1 tablet by mouth every morning. amiodarone (PACERONE) 200 mg tablet Take 1 tablet by mouth once daily. furosemide (LASIX) 40 mg tablet Take 1 tablet by mouth once daily. amiodarone (PACERONE) 200 mg tablet Take 1 tablet by mouth once daily. acetaminophen (TYLENOL) 650 mg suppository 650 mg by RECTAL route every 4 hours as needed. aluminum-magnesium hydroxide-simethicone (MAALOX,MYLANTA,MAG-AL PLUS) 200-200-20 mg/5 mL suspension Take 30 mL by mouth every 4 hours as needed. bisacodyl (DULCOLAX) 10 mg supp 10 mg by RECTAL route as needed for constipation. sodium phosphate,mono-dibasic (FLEET ENEMA RECTAL) 1 Enema by RECTAL route as needed. GUAIFENESIN ORAL Take 10 mL by mouth every 4 hours as needed. magnesium hydroxide (MILK OF MAGNESIA ORAL) Take 30 mL by mouth as needed. simvastatin (ZOCOR) 20 mg tablet Take 20 mg by mouth daily at bedtime. traZODone (DESYREL) 150 mg tablet Take 1/2 tablet by mouth once daily at bedtime. potassium chloride ER (KLOR-CON) 20 mEq tablet Take 20 mEq by mouth two times a day. multivitamin tablet Take 1 tablet by mouth once daily. vitamin B complex/minerals (STRESS B PLUS ZINC ORAL) Take 1 tablet by mouth once daily. hydrOXYzine pamoate (VISTARIL) 25 mg capsule Take 25 mg by mouth three times a day as needed. ondansetron (ZOFRAN) 4 mg tablet Take 4 mg by mouth every 6 hours as needed for nausea/vomiting. acetaminophen (TYLENOL) 500 mg tablet Take 2 tablets by mouth every 8 hours as needed for pain. polyethylene glycol 3350 17 gram packet Take 1 Packet by mouth once daily as needed for constipation. Dissolve dose in 4 - 8 ounces of liquid and take as directed. pantoprazole DR (PROTONIX) 20 mg tablet Take 2 tablets by mouth once daily. gabapentin (NEURONTIN) 400 mg capsule Take 1 capsule by mouth two times a day for 180 days. clopidogrel (PLAVIX) 75 mg tablet Take 75 mg by mouth once daily. (Patient not taking: Reported on 11/18/2024) docusate sodium (COLACE) 100 mg capsule Take 1 capsule by mouth every morning. apixaban (ELIQUIS) 5 mg tab(s) Take 1 tablet by mouth two times a day. ferrous sulfate 325 mg (65 mg iron) tablet Take 1 tablet by mouth once daily. metFORMIN ER (GLUMETZA) 500 mg 24 hr tablet Take 1 tablet by mouth daily with breakfast. ezetimibe (ZETIA) 10 mg tablet Take 1 tablet by mouth once daily. isosorbide mononitrate ER (IMDUR) 30 mg 24 hr tablet Take 0.5 tablets by mouth once daily. tamsulosin (FLOMAX) 0.4 mg Take 1 capsule by mouth daily at bedtime. traZODone (DESYREL) 50 mg tablet Take 1 tablet by mouth daily at bedtime. nitroglycerin sublingual (NITROQUICK) 0.4 mg SL tablet Dissolve 1 tablet under the tongue as directed. DISSOLVE ONE(1) TABLET UNDER THE TOUNGUE NEEDED FOR CHEST PAIN,EVERY 5 MIN X3 No current facility-administered medications for this visit. FAMILY HISTORY Problem Relation Age of Onset Heart Mother Hypertension Mother Heart Father Heart Sister Heart Brother Stroke Sister Colon Cancer No Family History Social History Tobacco Use Smoking status: Former Current packs/day: 0.00 Types: Cigarettes Start date: 08/24/1955 Quit date: 08/24/1984 Years since quittin.4 Smokeless tobacco: Never Tobacco comments: QUIT at age 44, started at 15 Vaping Use Vaping status: Never Used Substance Use Topics Alcohol use: Yes Comment: occ Drug use: Never REVIEW OF SYSTEMS Constitutional: (+) fatigue, (+) weight gain, (-) fever, (-) chills, (-) weight loss Eyes: (-) blurred vision, (-) double vision Cardiovascular: (+) lower extremity swelling, (-) chest pain, (-) palpitations Respiratory: (+) exertional dyspnea, (-) cough, (-) wheezing Gastrointestinal: (+) constipation, (-) nausea, (-) vomiting Genitourinary: (+) urinary frequency Musculoskeletal: (+) hip limited range of motion, (+) shoulder pain Skin: (+) scalp bruise Psychiatric: (+) feelings of hopelessness, (-) suicidal ideation Endocrine: (-) polydipsia EXAM: BP 108/58 Pulse (!) 57 Wt 78.9 kg (174 lb) SpO2 98% BMI 25.33 kg/m PHYSICAL EXAM: GENERAL: NAD, alert and oriented. SKIN: Unremarkable, no rash or skin lesions. No bruise and abrasion noted on the side of the head. HEAD: Normocephalic. EYES: PERRLA, EOMI, conjunctiva clear. NECK: Supple, no lymphadenopathy, normal thyroid, right carotid bruits. LUNGS: Clear to auscultation bilaterally, no wheezes/rhonchi/rales. HEART: Regular rate and rhythm, no murmurs. No ectopy. EXTREMITIES: Normal, no deformities, no skin discoloration. 1+ edema in lower extremities. Negative Vianca's on right calf. NEURO: Awake, alert and oriented x3, cranial nerves II-XII grossly intact, normal gait, no involuntary motions. LABS: Labs: - CBC: - Low blood counts indicating anemia - Low platelets - Glucose (fingerstick/home reading): 90 mg/dL (pre-diabetic per prior assessment) 1. BPH with obstruction/lower urinary tract symptoms (N40.1) - Nocturia and increased urinary frequency. - Continue current management. 2. Primary osteoarthritis of right hip (M16.11) - Experiencing difficulty with hip flexion and ambulation. - Continue physical therapy exercises. - DME for lift chair signed 3. Spinal stenosis, lumbar region, without neurogenic claudication (M48.061) - No current neurogenic claudication symptoms. - Continue current management. 4. Iron deficiency anemia, unspecified iron deficiency anemia type (D50.9) - Recent hemoglobin levels low. - Follow-up with hematology. 5. Dyspepsia (R10.13) - No current symptoms reported. 6. Dysphagia, unspecified type (R13.10) - No current symptoms reported. 7. Pre-diabetes (R73.03) - Blood glucose levels in the 90s. - Continue monitoring blood glucose levels. 8. Fatigue, unspecified type (R53.83) - Likely multifactorial, including anemia and recent hip surgery. - Monitor energy levels; follow-up with hematology for anemia management. 9. Screening for lipid disorders (Z13.220) - Lipid panel ordered. 10. Coronary artery disease involving [place] coronary artery of [place] heart without angina pectoris (I25.10) - No current angina; managed with lifestyle modifications and medications. - Continue current management. ASSESSMENT/PLAN: Discussed treatment plan and patient voices understanding. Patient's questions answered appropriately. Medications and potential side effects were discussed and patient voices understanding. Return to the office as scheduled or as needed for worsening/no improvement. Valery Quinteros APRN.ASSISTANT PORTFOLIO MANAGER documented in this encounter [facility] 01-18-2025 Telephone encounter Note Agree. [facility] 01-18-2025 Miscellaneous Notes Agree. This nurse reached out to [facility]. OT is scheduled to go there on tomorrow. Last nurse visit was on 01/13/25 and scheduled again for Thursday. Person answering is going to reach out to nurse to make her aware of this so she can touch base with patient. They do not have anything in their records about patient falling. They have last fall listed as 12/12/24. They will update our office once they have talked to patient and assessed also. Protocol recommends go to the ER now. Pt states he doesn't want to go to the ER. He states he just wants to come in and talk to provider. He states [facility] charges him too much. I let him know with being on the Eliquis it puts him at a greater risk of a brain bleed, and he needs to go to the ER to get a head CT. Pt states he's 84 and he's ready to go, he doesn't want to go to the ER, and will never go back to a [facility]. Care plan reviewed with patient and Pts . Patient's verbalized understanding. Advised that if symptoms get worse to be evaluated in ER or call 911. Pts states he may go to the ER if the doctor tells him to. Reason for Disposition Taking Coumadin (warfarin) or other strong blood thinner, or known bleeding disorder (e.g., thrombocytopenia) Answer Assessment - Initial Assessment Questions 1. MECHANISM: Pt fell while walking and hit head on end table. Pt states when he left [facility] he was told he was supposed to used walker, but he has been using cane to get around. He reports he has had several falls since being home. 2. ONSET: The injury happened 2-3 weeks ago. 3. NEUROLOGIC SYMPTOMS: Denies any loss of consciousness or any other neurological symptoms. 4. MENTAL STATUS: Pt knows who they are, who is, and where he is. 5. LOCATION: Pt hit head by L ear. 6. SCALP APPEARANCE: Pt denies bleeding any more, states 1/2 inch cut. 7. SIZE: 1/2 inch cut. 8. PAIN: - NONE (0): No pain. - MILD (1-3): Doesn't interfere with normal activities. - MODERATE (4-7): Interferes with normal activities or awakens from sleep. - SEVERE (8-10): Excruciating pain and patient unable to do normal activities. Pt denies pain. 9. TETANUS: Last tetanus booster was 03/21/24. 10. BLOOD THINNERS: Pt is on Eliquis. 11. OTHER SYMPTOMS: Pt denies other symptoms like neck pain or vomiting. 12. : N/A Protocols used: Head [id number] documented in this encounter [facility] 01-18-2025 Telephone encounter Note This nurse reached out to [facility]. OT is scheduled to go there on tomorrow. Last nurse visit was on 01/13/25 and scheduled again for Thursday. Person answering is going to reach out to nurse to make her aware of this so she can touch base with patient. They do not have anything in their records about patient falling. They have last fall listed as 12/12/24. They will update our office once they have talked to patient and assessed also. [facility] 01-18-2025 Telephone encounter Note Protocol recommends go to the ER now. Pt states he doesn't want to go to the ER. He states he just wants to come in and talk to provider. He states [facility] charges him too much. I let him know with being on the Eliquis it puts him at a greater risk of a brain bleed, and he needs to go to the ER to get a head CT. Pt states he's 84 and he's ready to go, he doesn't want to go to the ER, and will never go back to a [facility]. Care plan reviewed with patient and Pts . Patient's verbalized understanding. Advised that if symptoms get worse to be evaluated in ER or call 911. Pts states he may go to the ER if the doctor tells him to. Reason for Disposition Taking Coumadin (warfarin) or other strong blood thinner, or known bleeding disorder (e.g., thrombocytopenia) Answer Assessment - Initial Assessment Questions 1. MECHANISM: Pt fell while walking and hit head on end table. Pt states when he left [facility] he was told he was supposed to used walker, but he has been using cane to get around. He reports he has had several falls since being home. 2. ONSET: The injury happened 2-3 weeks ago. 3. NEUROLOGIC SYMPTOMS: Denies any loss of consciousness or any other neurological symptoms. 4. MENTAL STATUS: Pt knows who they are, who is, and where he is. 5. LOCATION: Pt hit head by L ear. 6. SCALP APPEARANCE: Pt denies bleeding any more, states 1/2 inch cut. 7. SIZE: 1/2 inch cut. 8. PAIN: - NONE (0): No pain. - MILD (1-3): Doesn't interfere with normal activities. - MODERATE (4-7): Interferes with normal activities or awakens from sleep. - SEVERE (8-10): Excruciating pain and patient unable to do normal activities. Pt denies pain. 9. TETANUS: Last tetanus booster was 03/21/24. 10. BLOOD THINNERS: Pt is on Eliquis. 11. OTHER SYMPTOMS: Pt denies other symptoms like neck pain or vomiting. 12. : N/A Protocols used: Head [id number] [facility] 12-26-2024 Telephone encounter Note Pts called in and asked who the Pt was supposed to have a f/u with after his hip surgery. I told her typically he should have a f/u in a couple weeks after the surgery with the surgeon, not the person that sent him to them. She states they never made an appointment for Pt. Sent through to Dr Ryan Alonzo at ph # [phone], his surgeon. [facility] 12-26-2024 Miscellaneous Notes Pts called in and asked who the Pt was supposed to have a f/u with after his hip surgery. I told her typically he should have a f/u in a couple weeks after the surgery with the surgeon, not the person that sent him to them. She states they never made an appointment for Pt. Sent through to Dr Ryan Alonzo at ph # [phone], his surgeon. documented in this encounter [facility] 12-20-2024 Note [facility] 12-20-2024 History of Presen t illness Narrative Images from the original note were not included. Heart , V[facility] Thor[facility] [place] DEPARTMENT OF VASCULAR SURGERY OUTPATIENT VISIT DATE December 20, 2024 OUTPATIENT VISIT TYPE ESTABLISHED SERVICE DATE: 12/20/2024 SERVICE TIME: 11:34 AM PRIMARY CARE PHYSICIAN: Valery Quinteros APRN.ASSISTANT PORTFOLIO MANAGER HISTORY OF PRESENT ILLNESS: Mr. Dutton is a 84 year old male who presents today for a vascular surgery follow-up visit for carotid artery stenosis. He was recently discharged from [facility] facility after robotic total hip replacement with Dr. Alonzo in September. He had prolonged hospitalization and recovery. He recently returned home. Denies focal neurologic deficit. 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 PAST SURGICAL HISTORY Procedure Laterality Date ARTHROSCOPY KNEE DIAGNOSTIC W/WO SYNOVIAL BX SPX 2000 both COLONOSCOPY FLX DX W/COLLJ SPEC WHEN PFRMD 2001 Colonoscopy COLONOSCOPY FLX DX W/COLLJ SPEC WHEN PFRMD 07/13/2014 Colonoscopy COLONOSCOPY GEN ANES 11/26/2020 CORONARY ARTERY BYP W/VEIN & ARTERY GRAFT 3 VEIN 1982 CABG, three grafts EGD 11/26/2020 EGD 02/14/2021 EYE SURGERY HX FOOT SURGERY HX Left HEART SURGERY HX NEUROPLASTY &/TRANSPOS MEDIAN NRV CARPAL TUNNE 1998 Carpal tunnel decomp bilateral PAST SURGICAL HISTORY OF surgery on umbilicus due to bleeding PAST SURGICAL HISTORY OF 1961 umbical mass resection SIGMOIDOSCOPY FLX DX W/COLLJ SPEC BR/WA IF PFRMD 08/29/2004 Sigmoidoscopy TONSILLECTOMY HX SOCIAL HISTORY Social History Tobacco Use Smoking status: Former Current packs/day: 0.00 Types: Cigarettes Start date: 08/24/1955 Quit date: 08/24/1984 Years since quittin.3 Smokeless tobacco: Never Tobacco comments: QUIT at age 44, started at 15 Vaping Use Vaping status: Never Used Substance Use Topics Alcohol use: Yes Comment: occ Drug use: Never MEDICATIONS: metoprolol succinate ER (TOPROL XL) 25 mg 24 hr tablet Take 1 tablet by mouth every morning. amiodarone (PACERONE) 200 mg tablet Take 1 tablet by mouth once daily. furosemide (LASIX) 40 mg tablet Take 1 tablet by mouth once daily. amiodarone (PACERONE) 200 mg tablet Take 1 tablet by mouth once daily. acetaminophen (TYLENOL) 650 mg suppository 650 mg by RECTAL route every 4 hours as needed. aluminum-magnesium hydroxide-simethicone (MAALOX,MYLANTA,MAG-AL PLUS) 200-200-20 mg/5 mL suspension Take 30 mL by mouth every 4 hours as needed. bisacodyl (DULCOLAX) 10 mg supp 10 mg by RECTAL route as needed for constipation. sodium phosphate,mono-dibasic (FLEET ENEMA RECTAL) 1 Enema by RECTAL route as needed. GUAIFENESIN ORAL Take 10 mL by mouth every 4 hours as needed. magnesium hydroxide (MILK OF MAGNESIA ORAL) Take 30 mL by mouth as needed. simvastatin (ZOCOR) 20 mg tablet Take 20 mg by mouth daily at bedtime. traZODone (DESYREL) 150 mg tablet Take 1/2 tablet by mouth once daily at bedtime. potassium chloride ER (KLOR-CON) 20 mEq tablet Take 20 mEq by mouth two times a day. multivitamin tablet Take 1 tablet by mouth once daily. vitamin B complex/minerals (STRESS B PLUS ZINC ORAL) Take 1 tablet by mouth once daily. hydrOXYzine pamoate (VISTARIL) 25 mg capsule Take 25 mg by mouth three times a day as needed. ondansetron (ZOFRAN) 4 mg tablet Take 4 mg by mouth every 6 hours as needed for nausea/vomiting. acetaminophen (TYLENOL) 500 mg tablet Take 2 tablets by mouth every 8 hours as needed for pain. polyethylene glycol 3350 17 gram packet Take 1 Packet by mouth once daily as needed for constipation. Dissolve dose in 4 - 8 ounces of liquid and take as directed. pantoprazole DR (PROTONIX) 20 mg tablet Take 2 tablets by mouth once daily. gabapentin (NEURONTIN) 400 mg capsule Take 1 capsule by mouth two times a day for 180 days. docusate sodium (COLACE) 100 mg capsule Take 1 capsule by mouth every morning. apixaban (ELIQUIS) 5 mg tab(s) Take 1 tablet by mouth two times a day. ferrous sulfate 325 mg (65 mg iron) tablet Take 1 tablet by mouth once daily. metFORMIN ER (GLUMETZA) 500 mg 24 hr tablet Take 1 tablet by mouth daily with breakfast. ezetimibe (ZETIA) 10 mg tablet Take 1 tablet by mouth once daily. isosorbide mononitrate ER (IMDUR) 30 mg 24 hr tablet Take 0.5 tablets by mouth once daily. tamsulosin (FLOMAX) 0.4 mg Take 1 capsule by mouth daily at bedtime. traZODone (DESYREL) 50 mg tablet Take 1 tablet by mouth daily at bedtime. nitroglycerin sublingual (NITROQUICK) 0.4 mg SL tablet Dissolve 1 tablet under the tongue as directed. DISSOLVE ONE(1) TABLET UNDER THE TOUNGUE NEEDED FOR CHEST PAIN,EVERY 5 MIN X3 clopidogrel (PLAVIX) 75 mg tablet Take 75 mg by mouth once daily. (Patient not taking: Reported on 11/18/2024) ALLERGIES: ALLERGIES Allergen Reactions Sulfa (Sulfonamide * Vomiting PHYSICAL EXAM: BP 115/58 (BP Site: Left Arm, BP Position: Sitting, BP Cuff Size: Regular Adult) Pulse 69 SpO2 98% Gen-no distress Neuro- no focal deficit Diagnostic tests reviewed for today's visit: Most recent labs Most recent imaging Carotid Duplex When compared with the prior study, of 09/18/2023 no significant change is noted on the right side and no significant change is noted on the left side. Compared to prior study of 09/18/2023, Increase in left ICA velocity from 152 to 191cm/sec Right Subclavian stenosis on today's exam. RIGHT SIDE Common carotid artery: Plaque visualized without evidence of hemodynamically significant stenosis. Internal carotid artery: <50% stenosis consistent with mild carotid artery disease. External carotid artery: Patent. Vertebral artery: Patent and antegrade flow noted. Innominate artery: Turbulent flow noted, cannot rule out more proximal stenosis. May wish other means of evaluation. Subclavian artery: 50-99% stenosis. LEFT SIDE Common carotid artery: Plaque visualized without evidence of hemodynamically significant stenosis. Internal carotid artery: 50-69% stenosis consistent with moderate carotid artery disease. External carotid artery: Elevated velocities and plaque noted. Vertebral artery: Patent and antegrade flow noted. Subclavian artery: Patent. IMPRESSION: Mr. Dutton is a 84 year old male with asymptomatic carotid stenosis . PLAN and RECOMMENDATIONS: Recommend repeat imaging in one year Continue current medications Follow up sooner with any concerns SIGNATURE: Thierno Srivastava DO PATIENT NAME: Angie Dutton DATE: December 20, 2024 TIME: 11:34 AM documented in this encounter [facility] 12-16-2024 Note [facility] 12-13-2024 Telephone encounter Note The following approved medication requests have been transmitted electronically. Requested Prescriptions Pending Prescriptions Disp Refills amiodarone (PACERONE) 200 mg tablet 90 tablet 3 Sig: Take 1 tablet by mouth once daily. furosemide (LASIX) 40 mg tablet 90 tablet 3 Sig: Take 1 tablet by mouth once daily. amiodarone (PACERONE) 200 mg tablet 15 tablet 0 Sig: Take 1 tablet by mouth once daily. furosemide (LASIX) 40 mg tablet 15 tablet 0 Sig: Take 1 tablet by mouth once daily. Valery Quinteros APRN.CNP [facility] 12-13-2024 Miscellaneous Notes The following approved medication requests have been transmitted electronically. Requested Prescriptions Pending Prescriptions Disp Refills amiodarone (PACERONE) 200 mg tablet 90 tablet 3 Sig: Take 1 tablet by mouth once daily. furosemide (LASIX) 40 mg tablet 90 tablet 3 Sig: Take 1 tablet by mouth once daily. amiodarone (PACERONE) 200 mg tablet 15 tablet 0 Sig: Take 1 tablet by mouth once daily. furosemide (LASIX) 40 mg tablet 15 tablet 0 Sig: Take 1 tablet by mouth once daily. Valery Quinteros APRN.CATIA Radha HUNTER with [facility] called in POC for HH. They are going to see Pt once a week for 5 weeks, then once every other week for 4 weeks. She states the HH Aid will be under her and they will see the Pt 1-2 times per week. She states when [facility] the [facility] he wasn't sent with two of the medications he was started on in the hospital. She was asking if the provider could send in prescriptions in for him as he is out of them. Please send short term supply to [facility] in [place] and truck terminal manager supply to [facility]. The patient has been identified by name and date of : Yes Caregiver verified no other encounters exist for this prescription request: Yes Caregiver confirmed with patient/requestor that no other refills are due, in the near future, with this provider at this time: Yes The last office visit in the department: 09/16/2024 Does the patient have a future office visit with this provider/department: Yes 12/16/2024 Requested Prescriptions Pending Prescriptions Disp Refills amiodarone (PACERONE) 200 mg tablet 90 tablet Sig: Take 1 tablet by mouth once daily. furosemide (LASIX) 40 mg tablet 90 tablet Sig: Take 1 tablet by mouth once daily. amiodarone (PACERONE) 200 mg tablet 15 tablet 0 Sig: Take 1 tablet by mouth once daily. furosemide (LASIX) 40 mg tablet 15 tablet 0 Sig: Take 1 tablet by mouth once daily. Anay Mojica RN December 13, 2024 4:27 PM documented in this encounter [facility] 12-13-2024 Telephone encounter Note Radha HUNTER with [facility] called in POC for HH. They are going to see Pt once a week for 5 weeks, then once every other week for 4 weeks. She states the HH Aid will be under her and they will see the Pt 1-2 times per week. She states when Pt was [facility] the [facility] he wasn't sent with two of the medications he was started on in the hospital. She was asking if the provider could send in prescriptions in for him as he is out of them. Please send short term supply to [facility] in [place] and truck terminal manager supply to [facility]. The patient has been identified by name and date of : Yes Caregiver verified no other encounters exist for this prescription request: Yes Caregiver confirmed with patient/requestor that no other refills are due, in the near future, with this provider at this time: Yes The last office visit in the department: 09/16/2024 Does the patient have a future office visit with this provider/department: Yes 12/16/2024 Requested Prescriptions Pending Prescriptions Disp Refills amiodarone (PACERONE) 200 mg tablet 90 tablet Sig: Take 1 tablet by mouth once daily. furosemide (LASIX) 40 mg tablet 90 tablet Sig: Take 1 tablet by mouth once daily. amiodarone (PACERONE) 200 mg tablet 15 tablet 0 Sig: Take 1 tablet by mouth once daily. furosemide (LASIX) 40 mg tablet 15 tablet 0 Sig: Take 1 tablet by mouth once daily. Anay Mojica RN December 13, 2024 4:27 PM [facility] 12-12-2024 Telephone encounter Note Swati from [facility] called and states she spoke with Andra their telemarketing supervisor and she told her that Pt was going to go with [facility] for HH. She states Andra is off sick today. She is going to contact the Pt and make sure he is wanting to go with them and will get back to us. She states she called Andra and she spoke with Pts son and he said the Pts wanted to go with them for HH. I let her know that provider gave approval to follow. [facility] 12-12-2024 Miscellaneous Notes Swati from [facility] called and states she spoke with Andra their telemarketing supervisor and she told her that Pt was going to go with [facility] for HH. She states Andra is off sick today. She is going to contact the Pt and make sure he is wanting to go with them and will get back to us. She states she called Andra and she spoke with Pts son and he said the Pts wanted to go with them for HH. I let her know that provider gave approval to follow. Swati from [facility] called and is notified of providers message. She voices understanding and states they will find out who the Pt wants to go with and let us know.. Anay Mojica RN Noted.we can follow with whichever they choose. Latoya from [facility] called and reports Pt is going to be discharged home from [facility]. She states they have orders for SN/PT/OT/Nurse Aid. They were asking if provider would follow them for HH order to see the Pt early next week. Please call and advise. Pt had a previous message from [facility] about them following Pt for HH and provider approved following them. Did not know what company the Pt wanted to go with. Called and left a detailed voicemail notifying patient's son Rich of providers message. Clinic phone number was left for him to call back and answer providers questions. Called and got a hold of Pts and she said she didn't know which HH agency her was going with. She states that her is taking care of that. She said he should be home tomorrow, I told her to have him call in and let us know who he would like to go with. Anay Mojica RN documented in this encounter [facility] 12-09-2024 Telephone encounter Note Swati from [facility] called and is notified of providers message. She voices understanding and states they will find out who the Pt wants to go with and let us know.. Anay Mojica RN [facility] 12-09-2024 Telephone encounter Note Noted.we can follow with whichever they choose. [facility] 12-09-2024 Telephone encounter Note Latoya from [facility] called and reports Pt is going to be discharged home from [facility]. She states they have orders for SN/PT/OT/Nurse Aid. They were asking if provider would follow them for HH order to see the Pt early next week. Please call and advise. Pt had a previous message from [facility] about them following Pt for HH and provider approved following them. Did not know what company the Pt wanted to go with. Called and left a detailed voicemail notifying patient's son Rich of providers message. Clinic phone number was left for him to call back and answer providers questions. Called and got a hold of Pts and she said she didn't know which HH agency her was going with. She states that her is taking care of that. She said he should be home tomorrow, I told her to have him call in and let us know who he would like to go with. Anay Mojica RN [facility] 12-09-2024 Telephone encounter Note Call to Ashli and notified her of message below from Provider. Ashli verbalized understanding. Janette Brady MA [facility] 12-09-2024 Miscellaneous Notes Call to Ashli and notified her of message below from Provider. Ashli verbalized understanding. Janette Brady MA ok Ashli calling with [facility] and reports pt will be discharging from [facility] and has orders for HH Nursing and PT. Ashli asking if provider agreeable to sign and follow pt for these orders? Please call Ashli back at [phone]. Suly Valentine RN documented in this encounter [facility] 12-09-2024 Telephone encounter Note ok [facility] 12-09-2024 Telephone encounter Note Ashli calling with [employer] and reports pt will be discharging from [facility] and has orders for HH Nursing and PT. Ashli asking if provider agreeable to sign and follow pt for these orders? Please call Ashli back at [phone]. Suly Valentine RN [facility] 11-30-2024 History of Presen t illness Narrative Post-op Office Visit Angie Dutton 84 year old November 30, 2024 12:52 PM History: Angie Dutton Is now 6 week s/p R ABMS PARAS Post-operative course has been without complication. no readmission/complications Subjective: Patient reports no pain. Overall is doing well. walker ambulatory aid no opioid pain medication Objective: Ambulates with walker Incision well-approximated, no drainage, normal tereza-incisional erythema Arcs of motion at hip are comfortable and fluid Distally DP/PT palpable Distally S/S/SP/DP/T intact at baseline Distally DF/EHL/PF/KE intact at baseline Negative vianca/calf tenderness Xrays: X-ray of the right hip shows a baptism modular stem in place no signs of change in position. There is no subsidence. The hip is externally rotated during the shot. Cross table view shows appropriate alignment of the acetabular component with the pelvis. No signs of fracture or loosening of the cup or femoral component. Assessment and Plan: Angie Dutton Is here for a second post-op appointment, overall doing well -continued ice, rest, and use of non-narcotic analgesia as needed -wean off ambulatory aids -discussed home exercises and therapy -WBAT on operative extremity -will see back at 3 month appointment for clinical exam and post-op xrays--can see earlier if needed -discussed red flag symptoms of acutely increasing pain, new erythema, new swelling, drainage, shortness of breath Ryan Alonzo MD documented in this encounter [facility] 11-30-2024 Note [facility] 11-30-2024 History of Presen t illness Narrative Radiology Service Progress Note PATIENT NAME: Angie Dutton DATE OF SERVICE: November 30, 2024 TIME: 1:32 PM PATIENT IDENTITY VERIFICATION COMPLETED USING TWO (2) IDENTIFIERS: Name and Date of confirmed by patient verbally. FALL SCREENING: Has the patient had 2 falls in the last year or 1 fall with injury or currently using an Ambulatory Assistive Device (Walker, Cane, Wheelchair, Crutches, etc.)? Yes, Patient High Risk for Falls What interventions were put in place to prevent falls during this visit? Yellow Falls Risk Wristband Applied and Offered Assistance with Transfers/Clothing PATIENT GENDER DATA: Assigned male at PATIENT RELEVANT IMPLANT DATA REVIEWED: Not Applicable PATIENT PRESENTS WITH AN IMPLANTABLE OR ATTACHED GAS TREATER: No RADIOLOGY DEPARTMENT: General X-ray: Exam(s) Completed: Pelvis X-Ray: Pelvis with Hip Right and Wt. Bearing PERIPHERAL IV DATA: Not applicable SIGNED BY: Jluis Williamson November 30, 2024 1:32 PM documented in this encounter [facility] 11-30-2024 Note HNO ID: [id number] Author: BRITTANI KEENAN Tech Service: Radiology Author Type: Spinning Lathe Operator Type: Progress Notes Filed: 11/30/2024 13:33 Note Text: Radiology Service Progress Note PATIENT NAME: Angie Dutton DATE OF SERVICE: November 30, 2024 TIME: 1:32 PM PATIENT IDENTITY VERIFICATION COMPLETED USING TWO (2) IDENTIFIERS: Name and Date of confirmed by patient verbally. FALL SCREENING: Has the patient had 2 falls in the last year or 1 fall with injury or currently using an Ambulatory Assistive Device (Walker, Cane, Wheelchair, Crutches, etc.)? Yes, Patient High Risk for Falls What interventions were put in place to prevent falls during this visit? Yellow Falls Risk Wristband Applied and Offered Assistance with Transfers/Clothing PATIENT GENDER DATA: Assigned male at PATIENT RELEVANT IMPLANT DATA REVIEWED: Not Applicable PATIENT PRESENTS WITH AN IMPLANTABLE OR ATTACHED GAS TREATER: No RADIOLOGY DEPARTMENT: General X-ray: Exam(s) Completed: Pelvis X-Ray: Pelvis with Hip Right and Wt. Bearing PERIPHERAL IV DATA: Not applicable SIGNED BY: Jluis Williamson November 30, 2024 1:32 PM [facility] 11-28-2024 Telephone encounter Note Patient was seen at [facility] by the hospitalist and admitted from November 25, 2024 and then sent back to [facility] Patient has a history of recent right hip replacement. He was admitted to the emergency room on November 25 with complaints of left-sided chest pain. Pain was not pressure-like described as just there. It radiated to his left arm. Realized the pain was likely due to hurting his arm during therapy the day before. No lightheadedness, dizziness, palpitations, nausea vomiting, or other symptoms. Blood pressure 114/55, heart rate 55, respirations 17, temp 98.9. His saturation was 93% on room air. Blood count unremarkable except for hemoglobin of 8.7. WBC 8.1, platelets 158. Sodium 137, potassium 5.4, HCO3 25.1, creatinine 1.34. proBNP 4740. Initial troponin 59 but stayed flat with repeat being 60. Patient developed the chest pain yesterday. Now remembers what he was doing in therapy and that had test done on the left shoulder he thinks this is what is causing the left-sided chest pain. Pain radiates down his left arm and reproducible with palpation. EKG shows no ST changes. Patient was given IV Lasix 40 mg twice daily and placed on a fluid restriction. Potassium was elevated so potassium sparing medications were held and Kayexalate 30 g given x 1. [facility] 11-28-2024 Miscellaneous Notes Patient was seen at [facility] by the hospitalist and admitted from November 25, 2024 and then sent back to [facility] Patient has a history of recent right hip replacement. He was admitted to the emergency room on November 25 with complaints of left-sided chest pain. Pain was not pressure-like described as just there. It radiated to his left arm. Realized the pain was likely due to hurting his arm during therapy the day before. No lightheadedness, dizziness, palpitations, nausea vomiting, or other symptoms. Blood pressure 114/55, heart rate 55, respirations 17, temp 98.9. His saturation was 93% on room air. Blood count unremarkable except for hemoglobin of 8.7. WBC 8.1, platelets 158. Sodium 137, potassium 5.4, HCO3 25.1, creatinine 1.34. proBNP 4740. Initial troponin 59 but stayed flat with repeat being 60. Patient developed the chest pain yesterday. Now remembers what he was doing in therapy and that had test done on the left shoulder he thinks this is what is causing the left-sided chest pain. Pain radiates down his left arm and reproducible with palpation. EKG shows no ST changes. Patient was given IV Lasix 40 mg twice daily and placed on a fluid restriction. Potassium was elevated so potassium sparing medications were held and Kayexalate 30 g given x 1. documented in this encounter [facility] 11-28-2024 Consult note [facility] 11-28-2024 Discharge summary [facility] 11-28-2024 Discharge summary [facility] 11-28-2024 Note [facility] 11-27-2024 Progress note Note Date/Time November 27, 2024 8:43am [facility] Medical Records Department [address] [place] [address] Progress Note - Hospitalist 11/27/24 0841 MR#: [id number] Acct: [id number] Name: ANGIE DUTTON Rep #:[id number] : 1940 84 From: Artie Palacio MD PCP: Valery Quinteros, SLEEVE WHEEL MAKER Status:ADM JERARDO Location: [place] [address] Reason for Visit Reason for Visit: Diagnoses Chest pain, unspecified (11/25/24) Other specified abnormal findings of blood chemistry (11/25/24) Subjective Subjective Patient nuclear stress test came back negative for stress-induced ischemia. Plan is for patient to be discharged back to his F pending insurance approval Objective Data Objective Data Vital Signs: Vital Signs Temp Pulse Resp BP Pulse Ox O2 Del Method 98 F 60 16 94/50 L 95 Room Air 11/27/24 02:46 11/27/24 02:46 11/27/24 02:46 11/27/24 02:46 11/27/24 02:46 11/27/24 08:13 Oxygen Delivery Method Room Air Weight: 73.5 kg Body Mass Index (BMI) 25.3 Intake & Output: Intake and Output for Last 24 Hours 11/25/24 11/26/24 11/27/24 23:59 23:59 23:59 Intake Total 220 / 220 330 / 330 Output Total 800 / 800 1650 / 2000 650 / 650 Balance -580 / -580 -1320 / -1670 -650 / -650 Lab / Micro Data 11/26/24 04:40 11/26/24 04:40 Labs: Laboratory Results - last 24 hr 11/26/24 11:39: POC Glucose 103 11/26/24 16:46: POC Glucose 149 H 11/26/24 22:01: POC Glucose 104 11/27/24 06:08: POC Glucose 99 Rhythm Strip Rhythm Strip: Sinus Rhythm Rate: 70 Ectopy: None Physical Exam Narrative GENERAL: cooperative HEENT: Atraumatic; normocephalic EYES; Anicteric, Normal Conjunctiva NECK; supple, normal thyroid, RESPIRATORY: Diminished to auscultation CARDIOVASCULAR: Regular S1-S2 GI: soft, normoactive bowel sounds, : No Renal angle tenderness; EXTREMITIES: No edema, no clubbing, MUSCULOSKELETAL: no muscle wasting NEURO: Awake; no lateralizing signs. SKIN: No Rash PSYCH; Flat affect Assessment & Plan Assessment/Plan (1) Chest pain: (2) Elevated troponin: PLAN: Plan Patient is an 84-year-old gentleman who is currently undergoing rehabilitation at a [facility] facility who presented with left-sided chest pain. Per patient he felt his pain was related to exercises he had participated. He has significant past medical history including coronary artery disease with previousCABG. Admitted to a monitored bed for further management 1. Chest pain secondary to musculoskeletal pain ? Patient has significant past cardiac history including coronary artery diseasewith previous CABG. Admitted to monitored bed. Patient initially high-sensitivity troponin was slightly elevated. However did remain flat. Underwentsubsequent evaluation with a nuclear stress test results of which are still pending ? 11/27/2024 patient nuclear stress test came back negative for stress-induced ischemia 2. Acute on chronic congestive heart failure with preserved ejection fraction ? Echo from 11/07/2024 demonstrated EF of 65% with stage III diastolic dysfunction. Patient placed on diuretic therapy, fluid restriction, strict input and output, daily weights and low-sodium diet 3. Coronary artery disease ? With previous CABG; Patient is on guideline directed medical therapy 4. Paroxysmal atrial fibrillation ? Rate controlled on amiodarone on systemic anticoagulation with apixaban continue 5. Hypertension ? Blood pressure controlled, home medications continued with dose adjustment as needed 6. Diabetes mellitus type II -patient's oral hypoglycemics held. Placed on long acting insulin, Accu-Cheks a.c. and at bedtime and covered with sliding scale insulin 7.Dyslipidemia ?Patient is on statin therapy, continued at home dose 8. GERD ? On PPI 9. BPH with lower urinary obstructive symptoms - Patient treated with tamsulosin 10. DVT prophylaxis ? On apixaban 11. Physical deconditioning ? Requested for PT OT eval and social worker masters to assist with discharge planning. Patient was admitted from an ECF plan is for patient to be dischargedback once insurance precertification is obtained Time spent in the patient's overall evaluation,decision-making process, review of diagnostic data, adjustment of management, discussion with other providers, nursing nursing and ancillary staff involved in patient's care documentation, 36Minutes Charges/Coding Visit Charges Inpatient E&M: 55518 Subs Hosp L2 11/27/24 0843 <Electronically signed by Artie Palacio MD> Cosigner Signature (if applicable): CC: ~ Signed [facility] Work Phone: 1(819) 745-284204-06-2025 Progress note [facility] Medical Records Department [address] [place] [address] Progress Note - Hospitalist 11/27/24 0841 MR#: [id number] Acct: [id number] Name: ANGIE DUTTON Rep #:[id number] : 1940 84 From: Artie Palacio MD PCP: Valrey Quinteros, SLEEVE WHEEL MAKER Status:ADM JERARDO Location: [place] [address] Reason for Visit Reason for Visit: Diagnoses Chest pain, unspecified (11/25/24) Other specified abnormal findings of blood chemistry (11/25/24) Subjective Subjective Patient nuclear stress test came back negative for stress-induced ischemia. Plan is for patient to be discharged back to his ECF pending insurance approval Objective Data Objective Data Vital Signs: Vital Signs Temp Pulse Resp BP Pulse Ox O2 Del Method 98 F 60 16 94/50 L 95 Room Air 11/27/24 02:46 11/27/24 02:46 11/27/24 02:46 11/27/24 02:46 11/27/24 02:46 11/27/24 08:13 Oxygen Delivery Method Room Air Weight: 73.5 kg Body Mass Index (BMI) 25.3 Intake & Output: Intake and Output for Last 24 Hours 11/25/24 11/26/24 11/27/24 23:59 23:59 23:59 Intake Total 220 / 220 330 / 330 Output Total 800 / 800 1650 / 2000 650 / 650 Balance -580 / -580 -1320 / -1670 -650 / -650 Lab / Micro Data 11/26/24 04:40 11/26/24 04:40 Labs: Laboratory Results - last 24 hr 11/26/24 11:39: POC Glucose 103 11/26/24 16:46: POC Glucose 149 H 11/26/24 22:01: POC Glucose 104 11/27/24 06:08: POC Glucose 99 Rhythm Strip Rhythm Strip: Sinus Rhythm Rate: 70 Ectopy: None Physical Exam Narrative GENERAL: cooperative HEENT: Atraumatic; normocephalic EYES; Anicteric, Normal Conjunctiva NECK; supple, normal thyroid, RESPIRATORY: Diminished to auscultation CARDIOVASCULAR: Regular S1-S2 GI: soft, normoactive bowel sounds, : No Renal angle tenderness; EXTREMITIES: No edema, no clubbing, MUSCULOSKELETAL: no muscle wasting NEURO: Awake; no lateralizing signs. SKIN: No Rash PSYCH; Flat affect Assessment & Plan Assessment/Plan (1) Chest pain: (2) Elevated troponin: PLAN: Plan Patient is an 84-year-old gentleman who is currently undergoing rehabilitation at a [facility] who presented with left-sided chest pain. Per patient he felt his pain was related to exercises he had participated. He has significant past medical history including coronary artery diseasewith previousCABG. Admitted to a monitored bed for further management 1. Chest pain secondary to musculoskeletal pain ? Patient has significant past cardiac history including coronary artery diseasewith previous CABG.Admitted to monitored bed. Patient initially high- sensitivity troponin was slightly elevated. However did remain flat. Underwentsubsequent evaluation with a nuclear stress test results of which are still pending ? 11/27/2024 patient nuclear stress test came back negative for stress-induced ischemia 2. Acute on chronic congestive heart failure with preserved ejection fraction ? Echo from 11/07/2024 demonstrated EF of 65% with stage III diastolic dysfunction. Patient placed on diuretic therapy, fluid restriction, strict input and output, daily weights and low-sodium diet 3. Coronary artery disease ? With previous CABG; Patient is on guideline directed medical therapy 4. Paroxysmal atrial fibrillation ? Rate controlled on amiodarone on systemic anticoagulation with apixaban continue 5. Hypertension ? Blood pressure controlled, home medications continued with dose adjustment as needed 6. Diabetes mellitus type II -patient's oral hypoglycemics held. Placed on long acting insulin, Accu-Cheks a.c. and at bedtime and covered with sliding scale insulin 7.Dyslipidemia ?Patient is on statin therapy, continued at home dose 8. GERD ? On PPI 9. BPH with lower urinary obstructive symptoms - Patient treated with tamsulosin 10. DVT prophylaxis ? On apixaban 11. Physical deconditioning ? Requested for PT OT eval and social worker masters to assist with discharge planning. Patient was admitted from an ECF plan is for patient to be dischargedback once insurance precertification is obtained Time spent in the patient's overall evaluation,decision-making process, review of diagnostic data, adjustment of management, discussion with other providers, nursing nursing and ancillary staff involved in patient's care documentation, 36Minutes Charges/Coding Visit Charges Inpatient E&M: 97341 Subs Hosp L2 11/27/24 0843 Cosigner Signature (if applicable): CC: ~ Signed [facility]04-05-2025 Progress note Author Artie Palacio [facility] Note Date/Time November 26, 2024 12:3 1pm [facility] Medical Records Department [address] [place] [address] Progress Note - Hospitalist 11/26/24 0747 MR#: [id number] Acct: [id number] Name: ANGIE DUTTON Rep #:[id number] : 1940 84 From: Artie Palacio MD PCP: Valery Quinteros, SLEEVE WHEEL MAKER Status:ADM JERARDO Location: [place] [address] Reason for Visit Reason for Visit: Diagnoses Chest pain, unspecified (11/25/24) Other specified abnormal findings of blood chemistry (11/25/24) Subjective Subjective Patient is an 84-year-old gentleman who is currently undergoing rehabilitation at a [facility] facility who presented with left-sided chest pain. Per patient he felt his pain was related to exercises he had participated. He has significant past medical history including coronary artery disease with previousCABG. Admitted to a monitored bed for further management Objective Data Objective Data Vital Signs: Vital Signs Temp Pulse Resp BP Pulse Ox O2 Del Method 97.3 F L 68 16 102/52 L 95 Room Air 11/26/24 05:15 11/26/24 05:15 11/26/24 05:15 11/26/24 05:15 11/26/24 05:15 11/26/24 05:22 Oxygen Delivery Method Room Air Weight: 73.5 kg Body Mass Index (BMI) 25.3 Intake & Output: Intake and Output for Last 24 Hours 11/24/24 11/25/24 11/26/24 23:59 23:59 23:59 Intake Total 220 / 220 0 / 0 Output Total 800 / 800 650 / 650 Balance -580 / -580 -650 / -650 Lab / Micro Data 11/26/24 04:40 11/26/24 04:40 Labs: Laboratory Results - last 24 hr 11/25/24 14:15: WBC 8.1, RBC 3.23 L, Hgb 8.7 L, Hct 29.0 L, MCV 89.8, MCH 26.9 L, MCHC 30.0 L, RDW Std Deviation 47.2 H, RDW Coeff of Jaqueline 14.5, Plt Count 158, MPV 12.9 H, Immature Gran % (Auto) 3.600 H, Neut % (Auto) 64.7, Lymph % (Auto) 26.1, [place] % (Auto) 4.0, Eos % (Auto) 1.1, Baso % (Auto) 0.5, Absolute Neuts (auto) 5.2, Absolute Lymphs (auto) 2.11, Nucleated RBC % 0, Sodium 137, Potassium 5.4 H, Chloride 102, Carbon Dioxide 25.1, Anion Gap 10, BUN 20 H, Creatinine 1.34 H, Estim Creat Clear Calc 38.28 L, Est GFR (MDRD) Non-Af 52 L, BUN/Creatinine Ratio 14.9, Glucose 112 H, Calcium 9.2, Troponin T High Sens 59 H* 11/25/24 14:19: Troponin T Hi Sens 2 Hr 60 H*, NT pro BNP II 4740 H 11/25/24 18:44: Troponin T Hi Sens 4Hr 60 H* 11/25/24 20:37: Troponin T Hi Sens 4Hr 59 H* 11/25/24 23:16: POC Glucose 116 H 11/26/24 04:40: WBC 6.4, RBC 3.03 L, Hgb 8.1 L, Hct 26.8 L, MCV 88.4, MCH 26.7 L, MCHC 30.2 L, RDW Std Deviation 46.5 H, RDW Coeff of Jaqueline 14.5, Plt Count 125 L,MPV 13.0 H, Immature Gran % (Auto) 2.500 H, Neut % (Auto) 61.9, Lymph % (Auto) 28.8, [place] % (Auto) 4.5, Eos % (Auto) 1.7, Baso % (Auto) 0.6, Absolute Neuts (auto) 3.9, Absolute Lymphs (auto) 1.84, Nucleated RBC % 0, Sodium 140, Potassium 4.0, Chloride 102, Carbon Dioxide 26.5, Anion Gap 12, BUN 21 H, Creatinine 1.47 H, Estim Creat Clear Calc 33.72 L, Est GFR (MDRD) Non-Af 46 L, BUN/Creatinine Ratio 14.1, Glucose 91, Calcium 8.8 11/26/24 06:36: POC Glucose 92 Radiography Diagnostic Testing: Radiology Impression Chest X-Ray 11/25/24 15:20 IMPRESSION: Findings concerning for multifocal pneumonia. Reading Location: [facility] Rhythm Strip Rhythm Strip: Sinus Rhythm Rate: 70 Ectopy: None Physical Exam Narrative GENERAL: cooperative HEENT: Atraumatic; normocephalic EYES; Anicteric, Normal Conjunctiva NECK; supple, normal thyroid, RESPIRATORY: Diminished to auscultation CARDIOVASCULAR: Regular S1-S2 GI: soft, normoactive bowel sounds, : No Renal angle tenderness; EXTREMITIES: No edema, no clubbing, MUSCULOSKELETAL: no muscle wasting NEURO: Awake; no lateralizing signs. SKIN: No Rash PSYCH; Flat affect Assessment & Plan Assessment/Plan (1) Chest pain: (2) Elevated troponin: PLAN: Plan Patient is an 84-year-old gentleman who is currently undergoing rehabilitation at a [facility] facility who presented with left-sided chest pain. Per patient he felt his pain was related to exercises he had participated. He has significant past medical history including coronary artery disease with previousCABG. Admitted to a monitored bed for further management 1. Chest pain ? Patient has significant past cardiac history including coronary artery diseasewith previous CABG. Admitted to monitored bed. Patient initially high-sensitivity troponin was slightly elevated. However did remain flat. Underwentsubsequent evaluation with a nuclear stress test results of which are still pending 2. Acute on chronic congestive heart failure with preserved ejection fraction ? Echo from 11/07/2024 demonstrated EF of 65% with stage III diastolic dysfunction. Patient placed on diuretic therapy, fluid restriction, strict input and output, daily weights and low-sodium diet 3. Coronary artery disease ? With previous CABG; Patient is on guideline directed medical therapy 4. Paroxysmal atrial fibrillation ? Rate controlled on amiodarone on systemic anticoagulation with apixaban continue 5. Hypertension ? Blood pressure controlled, home medications continued with dose adjustment as needed 6. Diabetes mellitus type II -patient's oral hypoglycemics held. Placed on long acting insulin, Accu-Cheks a.c. and at bedtime and covered with sliding scale insulin 7.Dyslipidemia ?Patient is on statin therapy, continued at home dose 8. GERD ? On PPI 9. BPH with lower urinary obstructive symptoms - Patient treated with tamsulosin 10. DVT prophylaxis ? On apixaban Time spent in the patient's overall evaluation,decision-making process, review of diagnostic data, adjustment of management, discussion with other providers, nursing nursing and ancillary staff involved in patient's care documentation, 38Minutes Charges/Coding Visit Charges Inpatient E&M: 68103 Subs Hosp L2 11/26/24 1231 <Electronically signed by Artie Palacio MD> Cosigner Signature (if applicable): CC: ~ Signed [facility] Work Phone: [phone] 489-689304-05-2025 Progress note [facility] Medical Records Department [address] [place] [address] Progress Note - Hospitalist 11/26/24 0747 MR#: [id number] Acct: [id number] Name: ANGIE DUTTON Rep #:[id number] : 1940 84 From: Artie Palacio MD PCP: Valery Quinteros, [employer] Status:ADM JERARDO Location: [place] [address] Reason for Visit Reason for Visit: Diagnoses Chest pain, unspecified (11/25/24) Other specified abnormal findings of blood chemistry (11/25/24) Subjective Subjective Patient is an 84-year-old gentleman who is currently undergoing rehabilitation at a [facility] who presented with left-sided chest pain. Per patient he felt his pain was related to exercises he had participated. He has significant past medical history including coronary artery diseasewith previousCABG. Admitted to a monitored bed for further management Objective Data Objective Data Vital Signs: Vital Signs Temp Pulse Resp BP Pulse Ox O2 Del Method 97.3 F L 68 16 102/52 L 95 Room Air 11/26/24 05:15 11/26/24 05:15 11/26/24 05:15 11/26/24 05:15 11/26/24 05:15 11/26/24 05:22 Oxygen Delivery Method Room Air Weight: 73.5 kg Body Mass Index (BMI) 25.3 Intake & Output: Intake and Output for Last 24 Hours 11/24/24 11/25/24 11/26/24 23:59 23:59 23:59 Intake Total 220 / 220 0 / 0 Output Total 800 / 800 650 / 650 Balance -580 / -580 -650 / -650 Lab / Micro Data 11/26/24 04:40 11/26/24 04:40 Labs: Laboratory Results - last 24 hr 11/25/24 14:15: WBC 8.1, RBC 3.23 L, Hgb 8.7 L, Hct 29.0 L, MCV 89.8, MCH 26.9 L, MCHC 30.0 L, RDW Std Deviation 47.2 H, RDW Coeff of Jaqueline 14.5, Plt Count 158, MPV 12.9 H, Immature Gran % (Auto) 3.600H, Neut % (Auto) 64.7, Lymph % (Auto) 26.1, [place] % (Auto) 4.0, Eos % (Auto) 1.1, Baso % (Auto) 0.5,Absolute Neuts (auto) 5.2, Absolute Lymphs (auto) 2.11, Nucleated RBC % 0, Sodium 137, Potassium 5.4 H, Chloride 102, Carbon Dioxide 25.1, Anion Gap 10, BUN 20 H, Creatinine 1.34 H, Estim Creat ClearCalc 38.28 L, Est GFR (MDRD) Non-Af 52 L, BUN/Creatinine Ratio 14.9, Glucose 112 H, Calcium 9.2, Troponin T High Sens 59 H* 11/25/24 14:19: Troponin T Hi Sens 2 Hr 60 H*, NT pro BNP II 4740 H 11/25/24 18:44: Troponin T Hi Sens 4Hr 60 H* 11/25/24 20:37: Troponin T Hi Sens 4Hr 59 H* 11/25/24 23:16: POC Glucose 116 H 11/26/24 04:40: WBC 6.4, RBC 3.03 L, Hgb 8.1 L, Hct 26.8 L, MCV 88.4, MCH 26.7 L, MCHC 30.2 L, RDW Std Deviation 46.5 H, RDW Coeff of Jaqueline 14.5, Plt Count 125 L,MPV 13.0 H, Immature Gran % (Auto) 2.500 H, Neut % (Auto) 61.9, Lymph % (Auto) 28.8, [place] % (Auto) 4.5, Eos % (Auto) 1.7, Baso % (Auto) 0.6, Absolute Neuts (auto) 3.9, Absolute Lymphs (auto) 1.84, Nucleated RBC % 0, Sodium 140, Potassium 4.0, Chloride 102, Carbon Dioxide 26.5, Anion Gap 12, BUN 21 H, Creatinine 1.47 H, Estim Creat Clear Calc 33.72 L, Est GFR (MDRD) Non-Af 46 L, BUN/Creatinine Ratio 14.1, Glucose 91, Calcium 8.8 11/26/24 06:36: POC Glucose 92 Radiography Diagnostic Testing: Radiology Impression Chest X-Ray 11/25/24 15:20 IMPRESSION: Findings concerning for multifocal pneumonia. Reading Location: [facility] Rhythm Strip Rhythm Strip: Sinus Rhythm Rate: 70 Ectopy: None Physical Exam Narrative GENERAL: cooperative HEENT: Atraumatic; normocephalic EYES; Anicteric, Normal Conjunctiva NECK; supple, normal thyroid, RESPIRATORY: Diminished to auscultation CARDIOVASCULAR: Regular S1-S2 GI: soft, normoactive bowel sounds, : No Renal angle tenderness; EXTREMITIES: No edema, no clubbing, MUSCULOSKELETAL: no muscle wasting NEURO: Awake; no lateralizing signs. SKIN: No Rash PSYCH; Flat affect Assessment & Plan Assessment/Plan (1) Chest pain: (2) Elevated troponin: PLAN: Plan Patient is an 84-year-old gentleman who is currently undergoing rehabilitation at a [facility] who presented with left-sided chest pain. Per patient he felt his pain was related to exercises he had participated. He has significant past medical history including coronary artery diseasewith previousCABG. Admitted to a monitored bed for further management 1. Chest pain ? Patient has significant past cardiac history including coronary artery diseasewith previous CABG.Admitted to monitored bed. Patient initially high- sensitivity troponin was slightly elevated. However did remain flat. Underwentsubsequent evaluation with a nuclear stress test results of which are still pending 2. Acute on chronic congestive heart failure with preserved ejection fraction ? Echo from 11/07/2024 demonstrated EF of 65% with stage III diastolic dysfunction. Patient placed on diuretic therapy, fluid restriction, strict input and output, daily weights and low-sodium diet 3. Coronary artery disease ? With previous CABG; Patient is on guideline directed medical therapy 4. Paroxysmal atrial fibrillation ? Rate controlled on amiodarone on systemic anticoagulation with apixaban continue 5. Hypertension ? Blood pressure controlled, home medications continued with dose adjustment as needed 6. Diabetes mellitus type II -patient's oral hypoglycemics held. Placed on long acting insulin, Accu-Cheks a.c. and at bedtime and covered with sliding scale insulin 7.Dyslipidemia ?Patient is on statin therapy, continued at home dose 8. GERD ? On PPI 9. BPH with lower urinary obstructive symptoms - Patient treated with tamsulosin 10. DVT prophylaxis ? On apixaban Time spent in the patient's overall evaluation,decision-making process, review of diagnostic data, adjustment of management, discussion with other providers, nursing nursing and ancillary staff involved in patient's care documentation, 38Minutes Charges/Coding Visit Charges Inpatient E&M: 05784 [facility] Hosp 11/26/24 1231 Cosigner Signature (if applicable): CC: ~ Signed [facility]04-04-2025 History and physical note Author Ju Fragoso [facility] Note Date/Time November 25, 2024 7:10 pm [facility] Medical Records Department [address] [place] [address] H&P Exam - Hospitalist 11/25/24 1811 MR#: [id number] Acct: [id number] Name: ANGIE DUTTON Rep #:[id number] : 1940 84 From: Ju Fragoso MD PCP: Valery Quinteros, [employer] Status:ADM JERARDO Location: [place] [address] HPI - General General Date of Admission: 11/25/24 Date of Service: 11/25/24 Chief Complaint: chest pain HPI Narrative ANGIE DUTTON, is a 84 M with a PMH as outlined including history of recent right hip replacement. He was admitted to the ED on 11/25/2024 with complaint of left-sided chest pain. He said the chest pain was not pressure-like and described asjust there. He said it radiated to his left arm. He said he realized that the pain was likely due to him hurting his arm during therapy the day before. He denied any lightheadedness or dizziness, palpitations, nausea or vomiting or anyother symptoms. Review of systems otherwise negative. He was brought into the ED where chest pain was reproducible with palpation. However [facility] wanted him worked up for chest pain to rule out ACS. Vitals in the ED at time of review BP of 114/55, ID of 55, RR of 17 and temp of 98.9F> He was saturating at 93% on room air. CBC was unremarkable apart from hemoglobin of 8.7. WBC was 8.1 and platelets were 158. BMP showed sodium of 137 potassium of 5.4 and bicarb of 25.1. Creatinine was 1.34. proBNP was markedly elevated at 4740. Initial troponin was 59 and essentially stayed flat with repeat troponin being 60. He has been admitted to manage for chest pain rule out ACS as well as hyperkalemia. [facility] Medical History Kidney disease GERD (gastroesophageal reflux disease) Former tobacco use HLD (hyperlipidemia) CAD (coronary artery disease) History of chronic hypertension Right leg weakness Myocardial infarct Hypertension Vertigo Home Medications ?Medication ?Instructions ?Recorded ?Last Taken ?Type isosorbide mononitrate 30 mg 15 mg PO DAILY HEART 07/2606/25/21 History tablet,extended release 24 hr gabapentin 400 mg capsule 400 mg PO BID NERVE PAIN 10/1406/25/21 History ezetimibe 10 mg tablet 10 mg PO DAILY CHOLESTROL Unknown History apixaban 5 mg tablet (Eliquis) 5 mg PO BID CEREBRAL IN FARCTION 09/26/23 Unknown Rx #60 tabs metoprolol succinate 50 mg 50 mg PO DAILY ANGINA #30 t abs 09/26/23 Unknown Rx tablet,extended release 24 hr acetaminophen 500 mg capsule 1,000 mg PO Q8H PRN fever or pain 11/07/24 Unknown History acetaminophen 650 mg rectal 650 mg ID Q4H PRN fever or pain 11/07/24 Unknown History suppository aluminum-magnesium hydroxide 200 30 ml PO Q4H PRN dysp epsia 11/07/24 Unknown History mg-200 mg/5 mL oral suspension (MAG-AL) amiodarone 200 mg tablet 200 mg PO DAILY AFIB 5 Unknown History ascorbic acid (vitamin C) 500 mg 500 mg PO BID SUPPLEM ENT 11/07/24 Unknown History capsule bisacodyl 10 mg rectal suppository 10 mg ID DAILY PRN constipation 11/07/24 Unknown History docusate sodium 100 mg capsule 100 mg PO DAILY CONSTIP ATION 11/07/24 Unknown History ferrous sulfate 325 mg (65 mg 325 mg PO DAILY ANEMIA 0 11/07/24 Unknown History iron) tablet (FeroSul) magnesium hydroxide 400 mg/5 mL 30 ml PO DAILY PRN con stipation 11/07/24 Unknown History oral suspension (Milk of Magnesia) metformin 500 mg tablet,extended 500 mg PO DAILY DIABE YUSEF 11/07/24 Unknown History release 24 hr ondansetron 4 mg disintegrating 4 mg PO Q6H PRN nausea and vomiting 11/07/24 Unknown History tablet polyethylene glycol 3350 17 17 g PO DAILY 11/07/24 Unk nown History gram/dose oral powder (ClearLax) sodium phosphates 19 gram-7 118 ml ID DAILY PRN consti pation 11/07/24 Unknown History gram/118 mL enema (Fleet Enema) tamsulosin 0.4 mg capsule 0.4 mg PO QHS 11/07/24 Unkno wn History furosemide 40 mg tablet 40 mg PO DAILY EDEMA 30 days #0 11/10/24 Unknown Rx tabs pantoprazole 40 mg tablet,delayed 40 mg PO BID HEARTBU RN 30 days #60 11/10/24 Unknown Rx release (Protonix) tabs simvastatin 20 mg tablet 20 mg PO QHS 11/25/24 Unknow n History trazodone 150 mg tablet 75 mg PO QHS INSOMNIA Unknown History Allergy/AdvReac Type Severity Reaction Status Date / Time Sulfa (Sulfonamide Allergy Unknown Verified 11/25/24 14:13 Antibiotics) Family History Mother Heart disease Father Heart disease Surgical History Status post arthroscopic knee surgery S/P bilateral foot surgery S/p bilateral carpal tunnel release S/P tonsillectomy and adenoidectomy S/P bilateral cataract extraction S/P CABG x 3 Stented coronary artery H/O right heart catheterization Social History household members: spouse Smoking Status: Former smoker how long ago did patient quit smoking: Quit when he was 44 y/o, 1/2 ppd since 10 years old. alcohol intake: never substance use type: does not use ROS Constitutional Constitutional: Reports malaise and weakness; Denies anorexia, change in weight,chills, fatigue or fever(s) Eyes Eyes: Denies change in vision ENT HEENT: Denies dysphagia, headache(s) or sore throat Cardiovascular Cardiovascular: Reports chest pain; Denies dyspnea on exertion, edema, lightheadedness, orthopnea, palpitations or syncope Respiratory/Chest Respiratory/Chest: Denies cough, dyspnea, productive cough, shortness of breath at rest or shortness of breath with exertion Gastrointestinal Gastrointestinal: Denies abdominal pain, nausea or vomiting Genitourinary Genitourinary: Denies burning urination or dysuria Musculoskeletal Musculoskeletal: Denies arthralgias Neurologic Neurologic: Denies dizziness, focal weakness, headache(s), numbness or seizures Psychiatric Psychiatric: Denies anxiety Vital Signs Vital Signs Vital Signs: 11/25/24 14:13 11/25/24 14:35 11/25/24 15:12 Temperature 98.9 F Temperature Source Oral Pulse Rate 72 70 Respiratory Rate 18 17 Blood Pressure 120/54 L 91/53 L Blood Pressure Mean 76 65 Pulse Ox 98 97 100 Oxygen Delivery Method Room Air Room Air Room Air 11/25/24 16:00 11/25/24 16:16 11/25/24 17:00 Temperature Temperature Source Pulse Rate 66 55 L Respiratory Rate 14 17 Blood Pressure 89/44 L 108/56 L 114/55 L Blood Pressure Mean 59 73 74 Pulse Ox 99 93 Oxygen Delivery Method Room Air Room Air 11/25/24 17:12 Temperature 98.9 F Temperature Source Pulse Rate 55 L Respiratory Rate 17 Blood Pressure 114/55 L Blood Pressure Mean 74 Pulse Ox 93 Oxygen Delivery Method Weight Weight: 165 lb 5.547 oz Body Mass Index (BMI) 25.1 Physical Exam Const alert, oriented x3, no apparent distress and average body habitus General Appearance: cooperative HEENT normocephalic, head/scalp atraumatic, hearing grossly normal bilaterally and moist oral mucous membranes Mouth: oral and palatal mucosa normal Eyes PERRL, EOMs intact bilaterally and conjunctivae normal Neck no lymphadenopathy and supple Resp normal respiratory effort and no retractions Cardio regular rate, regular rhythm, S1 normal heart sound, S2 normal heart sound and no murmurs Cardio Narrative: chest pain reproducible with palpation. GI normal to inspection, nondistended, normoactive bowel sounds, soft to palpation,non-tender and non-distended Extremity normal to inspection, full ROM and no clubbing, cyanosis or edema Neuro oriented x3, CN's II-XII intact bilaterally, moves all extremities and no focal motor deficits Motor Exam: strength 5/5 throughout Psych affect normal Results Lab / Micro Data 11/25/24 14:15 11/25/24 14:15 Labs: Laboratory Results - last 24 hr 11/25/24 14:15: WBC 8.1, RBC 3.23 L, Hgb 8.7 L, Hct 29.0 L, MCV 89.8, MCH 26.9 L, MCHC 30.0 L, RDW Std Deviation 47.2 H, RDW Coeff of Jaqueline 14.5, Plt Count 158, MPV 12.9 H, Immature Gran % (Auto) 3.600 H, Neut % (Auto) 64.7, Lymph % (Auto) 26.1, [place] % (Auto) 4.0, Eos % (Auto) 1.1, Baso % (Auto) 0.5, Absolute Neuts (auto) 5.2, Absolute Lymphs (auto) 2.11, Nucleated RBC % 0, Sodium 137, Potassium 5.4 H, Chloride 102, Carbon Dioxide 25.1, Anion Gap 10, BUN 20 H, Creatinine 1.34 H, Estim Creat Clear Calc 38.28 L, Est GFR (MDRD) Non-Af 52 L, BUN/Creatinine Ratio 14.9, Glucose 112 H, Calcium 9.2, Troponin T High Sens 59 H* 11/25/24 14:19: Troponin T Hi Sens 2 Hr 60 H*, NT pro BNP II 4740 H Imaging Radiology Impression Chest X-Ray 11/25/24 15:20 IMPRESSION: Findings concerning for multifocal pneumonia. Reading Location: [facility] Assessment & Plan Assessment/Plan (1) Chest pain: (2) Elevated troponin: PLAN: Plan #Chest pain to rule out ACS * To PCU. * Patient developed chest pain yesterday. He states he now remembers that he was doing therapy at that he had tests left shoulder that he thinks is because on the left side of chest pain. The pain radiates down his left arm and is reproducible with palpation. * Initial high-sensitivity troponin was 59 and is now 60 on repeat. * EKG showed no acute ST changes. * For nuclear stress test tomorrow. P.o. aspirin and sublingual nitroglycerin. * #Acute on chronic heart failure * BNP is elevated at 4740. Denies any shortness of breath and is on room air. Will diurese with IV Lasix 40 mg twice daily. * Monitor intake and output. Fluid restriction 1500 cc daily. #Hyperkalemia: Potassium is 5.4. Will hold all potassium sparing medication. Give Kayexalate 30 g x 1 #History of CAD: On ezetimibe and Imdur as well as atorvastatin #Atrial fibrillation: Currently rate controlled. On amiodarone and Eliquis #GERD: On PPI #Hypertension: On metoprolol #Type 2 diabetes mellitus: Hold metformin. Insulin sliding scale. Check CCHS. DVT prophylaxis: Already on Eliquis CODE STATUS: Full code * Patient counseled extensively about different types of CODE STATUS including full code, DNR CCA and DNR CCA. Patient elects to be full code. * Total [id number] time 16 minutes. Charges/Coding Visit Charges Inpatient E&M: 52806 Init Hosp L2 Procedures Hospitalists Procedures: 92176 Advncd Care Plan 30 Min 11/25/24 1910 <Electronically signed by Ju Fragoso MD> Cosigner Signature (if applicable): CC: PANCHITO Quinteros; Dr. Ju Fragoso MD~ Signed [facility] Work Phone: 1(384) 623-818204-04-2025 Discharge summary Author Radha [facility] Note Date/Time November 25, 2024 6:17 pm [facility] Medical Records Department [address] [place] [address] Emergency Department Summary 11/25/24 MR#: [id number] Acct: [id number] Name: ANGIE DUTTON Rep #:[id number] : 1940 84 From: Radha Carrero PCP: Valery Quinteros, [employer] Status:ADM JERARDO Location: [place] [address] HPI History of Present Illness Chief Complaint: Chest Pain Informant: patient and SNF Narrative Narrative: Patient is an 84-year-old male with history of atrial fibrillation (on Eliquis) coronary artery disease presenting from [facility] after right hip replacement for chest pain. Patient tells me that he thinks that is a muscle in his shoulder that is causing pain. He states he had rehab yesterday. Denies any injury or falls. He states last night he woke up with chest pain of the left upper chest that radiates down to his left arm. He was given 2 nitro and then fell back asleep. He currently denies any pain. He does not know how long the pain lasted but thinks it went away after he took the nitro. He had labs today at his nursing facility which showed a high-sensitivity troponin of 61 and was sent to the ER for further evaluation. He states the pain is worse when he moves his shoulder. No other complaints or concerns reported this time. Deniesany new swelling of his legs, weakness or difficulty breathing. [facility] Medical History Kidney disease GERD (gastroesophageal reflux disease) Former tobacco use HLD (hyperlipidemia) CAD (coronary artery disease) History of chronic hypertension Right leg weakness Myocardial infarct Hypertension Vertigo Home Medications ?Medication ?Instructions ?Recorded ?Last Taken ?Type isosorbide mononitrate 30 mg 15 mg PO DAILY HEART 07/2606/25/21 History tablet,extended release 24 hr gabapentin 400 mg capsule 400 mg PO BID NERVE PAIN 10/1406/25/21 History ezetimibe 10 mg tablet 10 mg PO DAILY CHOLESTROL Unknown History apixaban 5 mg tablet (Eliquis) 5 mg PO BID CEREBRAL IN FARCTION 09/26/23 Unknown Rx #60 tabs metoprolol succinate 50 mg 50 mg PO DAILY ANGINA #30 t abs 09/26/23 Unknown Rx tablet,extended release 24 hr acetaminophen 500 mg capsule 1,000 mg PO Q8H PRN fever or pain 11/07/24 Unknown History acetaminophen 650 mg rectal 650 mg ID Q4H PRN fever or pain 11/07/24 Unknown History suppository aluminum-magnesium hydroxide 200 30 ml PO Q4H PRN dysp epsia 11/07/24 Unknown History mg-200 mg/5 mL oral suspension (MAG-AL) amiodarone 200 mg tablet 200 mg PO DAILY AFIB 5 Unknown History ascorbic acid (vitamin C) 500 mg 500 mg PO BID SUPPLEM ENT 11/07/24 Unknown History capsule bisacodyl 10 mg rectal suppository 10 mg ID DAILY PRN constipation 11/07/24 Unknown History docusate sodium 100 mg capsule 100 mg PO DAILY CONSTIP ATION 11/07/24 Unknown History ferrous sulfate 325 mg (65 mg 325 mg PO DAILY ANEMIA 0 11/07/24 Unknown History iron) tablet (FeroSul) magnesium hydroxide 400 mg/5 mL 30 ml PO DAILY PRN con stipation 11/07/24 Unknown History oral suspension (Milk of Magnesia) metformin 500 mg tablet,extended 500 mg PO DAILY DIABE YUSEF 11/07/24 Unknown History release 24 hr ondansetron 4 mg disintegrating 4 mg PO Q6H PRN nausea and vomiting 11/07/24 Unknown History tablet polyethylene glycol 3350 17 17 g PO DAILY 11/07/24 Unk nown History gram/dose oral powder (ClearLax) sodium phosphates 19 gram-7 118 ml ID DAILY PRN consti pation 11/07/24 Unknown History gram/118 mL enema (Fleet Enema) tamsulosin 0.4 mg capsule 0.4 mg PO QHS 11/07/24 Unkno wn History furosemide 40 mg tablet 40 mg PO DAILY EDEMA 30 days #0 11/10/24 Unknown Rx tabs pantoprazole 40 mg tablet,delayed 40 mg PO BID HEARTBU RN 30 days #60 11/10/24 Unknown Rx release (Protonix) tabs simvastatin 20 mg tablet 20 mg PO QHS 11/25/24 Unknow n History trazodone 150 mg tablet 75 mg PO QHS INSOMNIA Unknown History Allergy/AdvReac Type Severity Reaction Status Date / Time Sulfa (Sulfonamide Allergy Unknown Verified 11/25/24 14:13 Antibiotics) Family History Mother Heart disease Father Heart disease Surgical History Status post arthroscopic knee surgery S/P bilateral foot surgery S/p bilateral carpal tunnel release S/P tonsillectomy and adenoidectomy S/P bilateral cataract extraction S/P CABG x 3 Stented coronary artery H/O right heart catheterization Social History household members: spouse Smoking Status: Former smoker how long ago did patient quit smoking: Quit when he was 44 y/o, 1/2 ppd since 10 years old. alcohol intake: never substance use type: does not use ROS ROS ED Constitutional Constitutional ED: Denies chills or fever(s) Cardiovascular Cardiovascular: Reports as per HPI and chest pain Respiratory/Chest Respiratory/Chest: Reports cough Gastrointestinal Gastrointestinal: Denies abdominal pain, nausea or vomiting Musculoskeletal Musculoskeletal: Reports other Details: Recent right hip arthroplasty ; Denies arthralgias or myalgias Neurologic Neurologic: Denies paresthesias or weakness Psychiatric Psychiatric: Denies anxiety Hematologic/Lymphatic Hematologic/Lymphatic: Reports easy bleeding and other Details: On Eliquis EXAM Physical Exam Const Vital Signs: 11/25/24 14:13 11/25/24 14:35 11/25/24 15:12 Temperature 98.9 F Temperature Source Oral Pulse Rate 72 70 Respiratory Rate 18 17 Blood Pressure 120/54 L 91/53 L Blood Pressure Mean 76 65 Pulse Ox 98 97 100 Oxygen Delivery Method Room Air Room Air Room Air 11/25/24 16:00 11/25/24 16:16 11/25/24 17:00 Temperature Temperature Source Pulse Rate 66 55 L Respiratory Rate 14 17 Blood Pressure 89/44 L 108/56 L 114/55 L Blood Pressure Mean 59 73 74 Pulse Ox 99 93 Oxygen Delivery Method Room Air Room Air 11/25/24 17:12 Temperature 98.9 F Temperature Source Pulse Rate 55 L Respiratory Rate 17 Blood Pressure 114/55 L Blood Pressure Mean 74 Pulse Ox 93 Oxygen Delivery Method Positive well nourished and well developed General Appearance ED: well developed and NAD HEENT Reports moist mucous membranes Eyes PERRL Neck supple and no JVD Chest Wall inspection of chest normal and palpation of chest normal Resp normal respiratory effort and clear to auscultation bilaterally Resp Narrative: No crackles appreciated Auscultation: Negative for rhonchi or diminished lung sounds Cardio regular rate, regular rhythm and no murmurs GI normal to inspection, nondistended, normoactive bowel sounds and soft to palpation Neuro oriented x3 Sensorium / Orientation: awake and alert Motor Exam: Negative for general weakness Psych mental status grossly normal Skin no rashes or lesions noted Heart Score History: Moderately Suspicious ECG: Normal Age: >/= 65 years Risk Factors: >/= 3 Risk Factors or History of CAD Troponin: >1 - <3 Normal Limit Score: 6 MDM MDM MDM Narrative Medical decision making narrative: Patient is evaluated for an episode of chest pain that occurred less than the left side rating to his arm notedly by nitroglycerin. EKG not consistent with acute ischemia. Outpatient-see troponin minimally elevated at 61. Was sent in for further evaluation. He remains pain-free at this time. Vital signs normal. Cardiac workup including CBC, BMP, delta high-sensitivity troponin and chest x- ray ordered. High sensitive troponin still mildly elevated at 59 and 60 but not uptrending. He is pain-free at this time. His chest x-ray reviewed by myself as well as radiology was concerning for multifocal pneumonia. He does not have fever or leukocytosis and I do not thinkthat this is an acute pneumonia however he does report a new cough over the pastmonth. The case is discussed with the patient's doctor in his nursing facility, Dr. Hamilton, she states that patient was fluid overloaded and does not have pneumonia but was diuresed. She would like him admitted for further cardiac evaluation and cardiology consult before returning back to [facility]. Patient's's case is discussed with the main physician, Dr. Bedoya. Patient will be admitted for further ACS workup given episode of chest pain with mildly elevated troponins. At this time I do not think this is ACS and I do not think he requires a heparin drip at this time. He is anticoagulated on Eliquis. Patient agreeable with plan of care. Patient currently appears euvolemic I do not think requires diuresis but will add on a BNP. BNP elevated but mildly downtrending compared to last month History & Record Review Additional record(s) reviewed:: Other (Echocardiogram on 11/08/2024-bileaflet diffuse mitral valve thickening, mild concentric LVH and EF 65% with stage III diastolic dysfunction) Lab Data Attestation: I reviewed the patient's lab results. Labs: Laboratory Results - last 24 hr 11/25/24 11/25/24 14:15 14:19 WBC 8.1 RBC 3.23 L Hgb 8.7 L Hct 29.0 L MCV 89.8 MCH 26.9 L MCHC 30.0 L RDW Std Deviation 47.2 H RDW Coeff of Jaqueline 14.5 Plt Count 158 MPV 12.9 H Immature Gran % (Auto) 3.600 H Neut % (Auto) 64.7 Lymph % (Auto) 26.1 [place] % (Auto) 4.0 Eos % (Auto) 1.1 Baso % (Auto) 0.5 Absolute Neuts (auto) 5.2 Absolute Lymphs (auto) 2.11 Nucleated RBC % 0 Sodium 137 Potassium 5.4 H Chloride 102 Carbon Dioxide 25.1 Anion Gap 10 BUN 20 H Creatinine 1.34 H Estim Creat Clear Calc 38.28 L Est GFR (MDRD) Non-Af 52 L BUN/Creatinine Ratio 14.9 Glucose 112 H Calcium 9.2 Troponin T High Sens 59 H* Troponin T Hi Sens 2 Hr 60 H* Radiography Chest X-Ray - ED: 2 View, Read by ED Physician, Read by Radiologist and CHF Diagnostic Testing: Clinical Impression(s) from Imaging Studies Chest X-Ray 11/25/24 15:20 IMPRESSION: Findings concerning for multifocal pneumonia. Reading Location: [facility] Rhythm Strip Rhythm Strip: Sinus Rhythm Rate: 70 Ectopy: None EKG Initial EKG: Attestation: I personally reviewed and interpreted this EKG as follows: Interpretation: Sinus Rhythm Comments: Normal sinus rhythm at a rate of 70 bpm with prolonged ID interval Normal axis Bifascicular block with right bundle branch block left anterior fascicular block Normal ST segments No significant change compared to prior EKG on 11/08/2024 Differential Diagnosis Chest pain/SOB: pulmonary embolism Reason(s) PE less likely: Positive for not tachycardic, not hypoxic and patient taking oral anticoagulants, pneumothorax Reason(s) pneumothorax less likely: Positive for bilateral breath sounds and CSRwithhout PTX and pneumonia Reason(s) pneumonia less likely: Positive for no elevation in WBC count, no noted fever and symptoms not consistent with acute infection Management Discussion w/another healthcare provider: Hospitalist and PCP Discharge Plan Dx/Rx/DC Orders Clinical Impression: Chest pain, CAD (coronary artery disease), Elevated troponin Disposition Disposition: [facility] Care [facility] Discharge Date/Time: 11/25/24 17:55 What to do if you have Problems For any increased pain, shortness of breath, bleeding, nausea or vomiting, chestpain, or any unexpected problems, contact your Primary Care Provider. Call [facility] ([phone]) or report to the closest Emergency Room. Call 911 if necessary. 11/25/241816 <Electronically signed by Radha Goodrich DO> Cosigner Signature (if applicable): CC: [employer] Valery Quinteros ~ Signed [facility] Work Phone: [phone]) 216-236104-04-2025 History and physical note [facility] Medical Records Department [address] [place] [address] H&P Exam - Hospitalist 11/25/24 181 MR#: [id number] Acct: [id number] Name: ANGIE DUTTON Rep #:[id number] : 1940 84 From: Ju Fragoso MD PCP: Valery Quinteros [employer] Status:ADM JERARDO Location: [place] [address] HPI - General General Date of Admission: 11/25/24 Date of Service: 11/25/24 Chief Complaint: chest pain HPI Narrative ANGIE DUTTON, is a 84 M with a PMH as outlined including history of recent right hip replacement. He was admitted to the ED on 11/25/2024 with complaint of left- sided chest pain. He said the chest pain was not pressure-like and described asjust there. He said it radiated to his left arm. He said he realized that the pain was likely due to him hurting his arm during therapy the day before. He denied any lightheadedness or dizziness, palpitations, nausea or vomiting or anyother symptoms. Review of systems otherwise negative. He was brought into the ED where chest pain was reproducible with palpation. However [facility] wanted him worked up for chest pain to rule out ACS. Vitals in the ED at time of review BP of 114/55, ID of 55, RR of 17 and temp of 98.9F> He was saturating at 93% on room air. CBC was unremarkable apart from hemoglobin of 8.7. WBC was 8.1 and platelets were 158. BMP showed sodium of 137 potassium of 5.4 and bicarb of 25.1. Creatinine was 1.34. proBNP was markedly elevated at 4740. Initial troponin was 59 and essentially stayed flat with repeattroponin being 60. He has been admitted to manage for chest pain rule out ACS as well as hyperkalemia. [facility] Medical History Kidney disease GERD (gastroesophageal reflux disease) Former tobacco use HLD (hyperlipidemia) CAD (coronary artery disease) History of chronic hypertension Right leg weakness Myocardial infarct Hypertension Vertigo Home Medications ?Medication ?Instructions ?Recorded ?Last Taken ?Type isosorbide mononitrate 30 mg 15 mg PO DAILY HEART 1209/1106/25/21 History tablet,extended release 24 hr gabapentin 400 mg capsule 400 mg PO BID NERVE PAIN 10/1406/25/21 History ezetimibe 10 mg tablet 10 mg PO DAILY CHOLESTROL Unknown History apixaban 5 mg tablet (Eliquis) 5 mg PO BID CEREBRAL IN FARCTION 09/26/23 Unknown Rx #60 tabs metoprolol succinate 50 mg 50 mg PO DAILY ANGINA #30 t abs 09/26/23 Unknown Rx tablet,extended release 24 hr acetaminophen 500 mg capsule 1,000 mg PO Q8H PRN fever or pain 11/07/24 Unknown History acetaminophen 650 mg rectal 650 mg ID Q4H PRN fever or pain 11/07/24 Unknown History suppository aluminum-magnesium hydroxide 200 30 ml PO Q4H PRN dysp epsia 11/07/24 Unknown History mg-200 mg/5 mL oral suspension (MAG-AL) amiodarone 200 mg tablet 200 mg PO DAILY AFIB 5 Unknown History ascorbic acid (vitamin C) 500 mg 500 mg PO BID SUPPLEM ENT 11/07/24 Unknown History capsule bisacodyl 10 mg rectal suppository 10 mg ID DAILY PRN constipation 11/07/24 Unknown History docusate sodium 100 mg capsule 100 mg PO DAILY CONSTIP ATION 11/07/24 Unknown History ferrous sulfate 325 mg (65 mg 325 mg PO DAILY ANEMIA 0 11/07/24 Unknown History iron) tablet (FeroSul) magnesium hydroxide 400 mg/5 mL 30 ml PO DAILY PRN con stipation 11/07/24 Unknown History oral suspension (Milk of Magnesia) metformin 500 mg tablet,extended 500 mg PO DAILY DIABE YUSEF 11/07/24 Unknown History release 24 hr ondansetron 4 mg disintegrating 4 mg PO Q6H PRN nausea and vomiting 11/07/24 Unknown History tablet polyethylene glycol 3350 17 17 g PO DAILY 11/07/24 Unk nown History gram/dose oral powder (ClearLax) sodium phosphates 19 gram-7 118 ml ID DAILY PRN consti pation 11/07/24 Unknown History gram/118 mL enema (Fleet Enema) tamsulosin 0.4 mg capsule 0.4 mg PO QHS 11/07/24 Unkno wn History furosemide 40 mg tablet 40 mg PO DAILY EDEMA 30 days #0 11/10/24 Unknown Rx tabs pantoprazole 40 mg tablet,delayed 40 mg PO BID HEARTBU RN 30 days #60 11/10/24 Unknown Rx release (Protonix) tabs simvastatin 20 mg tablet 20 mg PO QHS 11/25/24 Unknow n History trazodone 150 mg tablet 75 mg PO QHS INSOMNIA Unknown History Allergy/AdvReac Type Severity Reaction Status Date / Time Sulfa (Sulfonamide Allergy Unknown Verified 11/25/24 14:13 Antibiotics) Family History Mother Heart disease Father Heart disease Surgical History Status post arthroscopic knee surgery S/P bilateral foot surgery S/p bilateral carpal tunnel release S/P tonsillectomy and adenoidectomy S/P bilateral cataract extraction S/P CABG x 3 Stented coronary artery H/O right heart catheterization Social History household members: spouse Smoking Status: Former smoker how long ago did patient quit smoking: Quit when he was 44 y/o, 1/2 ppd since 10 years old. alcohol intake: never substance use type: does not use ROS Constitutional Constitutional: Reports malaise and weakness; Denies anorexia, change in weight,chills, fatigue or fever(s) Eyes Eyes: Denies change in vision ENT HEENT: Denies dysphagia, headache(s) or sore throat Cardiovascular Cardiovascular: Reports chest pain; Denies dyspnea on exertion, edema, lightheadedness, orthopnea, palpitations or syncope Respiratory/Chest Respiratory/Chest: Denies cough, dyspnea, productive cough, shortness of breath at rest or shortness of breath with exertion Gastrointestinal Gastrointestinal: Denies abdominal pain, nausea or vomiting Genitourinary Genitourinary: Denies burning urination or dysuria Musculoskeletal Musculoskeletal: Denies arthralgias Neurologic Neurologic: Denies dizziness, focal weakness, headache(s), numbness or seizures Psychiatric Psychiatric: Denies anxiety Vital Signs Vital Signs Vital Signs: 11/25/24 14:13 11/25/24 14:35 11/25/24 15:12 Temperature 98.9 F Temperature Source Oral Pulse Rate 72 70 Respiratory Rate 18 17 Blood Pressure 120/54 L 91/53 L Blood Pressure Mean 76 65 Pulse Ox 98 97 100 Oxygen Delivery Method Room Air Room Air Room Air 11/25/24 16:00 11/25/24 16:16 11/25/24 17:00 Temperature Temperature Source Pulse Rate 66 55 L Respiratory Rate 14 17 Blood Pressure 89/44 L 108/56 L 114/55 L Blood Pressure Mean 59 73 74 Pulse Ox 99 93 Oxygen Delivery Method Room Air Room Air 11/25/24 17:12 Temperature 98.9 F Temperature Source Pulse Rate 55 L Respiratory Rate 17 Blood Pressure 114/55 L Blood Pressure Mean 74 Pulse Ox 93 Oxygen Delivery Method Weight Weight: 165 lb 5.547 oz Body Mass Index (BMI) 25.1 Physical Exam Const alert, oriented x3, no apparent distress and average body habitus General Appearance: cooperative HEENT normocephalic, head/scalp atraumatic, hearing grossly normal bilaterally and moist oral mucous membranes Mouth: oral and palatal mucosa normal Eyes PERRL, EOMs intact bilaterally and conjunctivae normal Neck no lymphadenopathy and supple Resp normal respiratory effort and no retractions Cardio regular rate, regular rhythm, S1 normal heart sound, S2 normal heart sound and no murmurs Cardio Narrative: chest pain reproducible with palpation. GI normal to inspection, nondistended, normoactive bowel sounds, soft to palpation,non-tender and non-distended Extremity normal to inspection, full ROM and no clubbing, cyanosis or edema Neuro oriented x3, CN's II-XII intact bilaterally, moves all extremities and no focal motor deficits Motor Exam: strength 5/5 throughout Psych affect normal Results Lab / Micro Data 11/25/24 14:15 11/25/24 14:15 Labs: Laboratory Results - last 24 hr 11/25/24 14:15: WBC 8.1, RBC 3.23 L, Hgb 8.7 L, Hct 29.0 L, MCV 89.8, MCH 26.9 L, MCHC 30.0 L, RDW Std Deviation 47.2 H, RDW Coeff of Jaqueline 14.5, Plt Count 158, MPV 12.9 H, Immature Gran % (Auto) 3.600H, Neut % (Auto) 64.7, Lymph % (Auto) 26.1, [place] % (Auto) 4.0, Eos % (Auto) 1.1, Baso % (Auto) 0.5,Absolute Neuts (auto) 5.2, Absolute Lymphs (auto) 2.11, Nucleated RBC % 0, Sodium 137, Potassium 5.4 H, Chloride 102, Carbon Dioxide 25.1, Anion Gap 10, BUN 20 H, Creatinine 1.34 H, Estim Creat ClearCalc 38.28 L, Est GFR (MDRD) Non-Af 52 L, BUN/Creatinine Ratio 14.9, Glucose 112 H, Calcium 9.2, Troponin T High Sens 59 H* 11/25/24 14:19: Troponin T Hi Sens 2 Hr 60 H*, NT pro BNP II 4740 H Imaging Radiology Impression Chest X-Ray 11/25/24 15:20 IMPRESSION: Findings concerning for multifocal pneumonia. Reading Location: [facility] Assessment & Plan Assessment/Plan (1) Chest pain: (2) Elevated troponin: PLAN: Plan #Chest pain to rule out ACS * To PCU. * Patient developed chest pain yesterday. He states he now remembers that he was doing therapy at that he had tests left shoulder that he thinks is because on the left side of chest pain. The pain radiates down his left arm and is reproducible with palpation. * Initial high-sensitivity troponin was 59 and is now 60 on repeat. * EKG showed no acute ST changes. * For nuclear stress test tomorrow. P.o. aspirin and sublingual nitroglycerin. * #Acute on chronic heart failure * BNP is elevated at 4740. Denies any shortness of breath and is on room air. Will diurese with IV Lasix 40 mg twice daily. * Monitor intake and output. Fluid restriction 1500 cc daily. #Hyperkalemia: Potassium is 5.4. Will hold all potassium sparing medication. Give Kayexalate 30 g x1 #History of CAD: On ezetimibe and Imdur as well as atorvastatin #Atrial fibrillation: Currently rate controlled. On amiodarone and Eliquis #GERD: On PPI #Hypertension: On metoprolol #Type 2 diabetes mellitus: Hold metformin. Insulin sliding scale. Check [facility]. DVT prophylaxis: Already on Eliquis CODE STATUS: Full code * Patient counseled extensively about different types of CODE STATUS including full code, DNR CCA and DNR CCA. Patient elects to be full code. * Total [id number] time 16 minutes. Charges/Coding Visit Charges Inpatient E&M: 53742 Init Hosp L2 Procedures Hospitalists Procedures: 15876 Advncd Care Plan 30 Min 11/25/24 191 Cosigner Signature (if applicable): CC: PANCHITO Quinteros; Dr. Ju Fragoso MD~ Signed [facility]04-04-2025 Discharge summary [facility] Medical Records Department [address] [place] [address] Emergency Department Summary 11/25/24 MR#: [id number] Acct: [id number] Name: ANGIE DUTTON Rep #:[id number] : 1940 84 From: Radha Carrero PCP: PANCHITO Harris Status:ADM JERARDO Location: [address] History of Present Illness Chief Complaint: Chest Pain Informant: patient and SNF Narrative Narrative: Patient is an 84-year-old male with history of atrial fibrillation (on Eliquis) coronary artery disease presenting from [facility] after right hip replacement for chest pain. Patient tells me that he thinks that is a muscle in his shoulder that is causing pain. He states he had rehab yesterday. Denies any injury or falls. He states last night he woke up with chest pain of the left upper chest that radiates down to his left arm. He was given 2 nitro and then fell back asleep. He currently denies any pain. He does not know how long the pain lasted but thinks it went away after he took the nitro. He had labs today at his nursing facility which showed a high-sensitivity troponin of 61 and was sent to the ER for further evaluation. He states the pain is worse when he moves his shoulder. No other complaints or concerns reported this time. Deniesany new swelling of his legs, weakness or difficulty breathing. [facility] Medical History Kidney disease GERD (gastroesophageal reflux disease) Former tobacco use HLD (hyperlipidemia) CAD (coronary artery disease) History of chronic hypertension Right leg weakness Myocardial infarct Hypertension Vertigo Home Medications ?Medication ?Instructions ?Recorded ?Last Taken ?Type isosorbide mononitrate 30 mg 15 mg PO DAILY HEART 07/2606/25/21 History tablet,extended release 24 hr gabapentin 400 mg capsule 400 mg PO BID NERVE PAIN 10/1406/25/21 History ezetimibe 10 mg tablet 10 mg PO DAILY CHOLESTROL Unknown History apixaban 5 mg tablet (Eliquis) 5 mg PO BID CEREBRAL IN FARCTION 09/26/23 Unknown Rx #60 tabs metoprolol succinate 50 mg 50 mg PO DAILY ANGINA #30 t abs 09/26/23 Unknown Rx tablet,extended release 24 hr acetaminophen 500 mg capsule 1,000 mg PO Q8H PRN fever or pain 11/07/24 Unknown History acetaminophen 650 mg rectal 650 mg ID Q4H PRN fever or pain 11/07/24 Unknown History suppository aluminum-magnesium hydroxide 200 30 ml PO Q4H PRN dysp epsia 11/07/24 Unknown History mg-200 mg/5 mL oral suspension (MAG-AL) amiodarone 200 mg tablet 200 mg PO DAILY AFIB 5 Unknown History ascorbic acid (vitamin C) 500 mg 500 mg PO BID SUPPLEM ENT 11/07/24 Unknown History capsule bisacodyl 10 mg rectal suppository 10 mg ID DAILY PRN constipation 11/07/24 Unknown History docusate sodium 100 mg capsule 100 mg PO DAILY CONSTIP ATION 11/07/24 Unknown History ferrous sulfate 325 mg (65 mg 325 mg PO DAILY ANEMIA 0 11/07/24 Unknown History iron) tablet (FeroSul) magnesium hydroxide 400 mg/5 mL 30 ml PO DAILY PRN con stipation 11/07/24 Unknown History oral suspension (Milk of Magnesia) metformin 500 mg tablet,extended 500 mg PO DAILY DIABE YUSEF 11/07/24 Unknown History release 24 hr ondansetron 4 mg disintegrating 4 mg PO Q6H PRN nausea and vomiting 11/07/24 Unknown History tablet polyethylene glycol 3350 17 17 g PO DAILY 11/07/24 Unk nown History gram/dose oral powder (ClearLax) sodium phosphates 19 gram-7 118 ml ID DAILY PRN consti pation 11/07/24 Unknown History gram/118 mL enema (Fleet Enema) tamsulosin 0.4 mg capsule 0.4 mg PO QHS 11/07/24 Unkno wn History furosemide 40 mg tablet 40 mg PO DAILY EDEMA 30 days #0 11/10/24 Unknown Rx tabs pantoprazole 40 mg tablet,delayed 40 mg PO BID HEARTBU RN 30 days #60 11/10/24 Unknown Rx release (Protonix) tabs simvastatin 20 mg tablet 20 mg PO QHS 11/25/24 Unknow n History trazodone 150 mg tablet 75 mg PO QHS INSOMNIA Unknown History Allergy/AdvReac Type Severity Reaction Status Date / Time Sulfa (Sulfonamide Allergy Unknown Verified 11/25/24 14:13 Antibiotics) Family History Mother Heart disease Father Heart disease Surgical History Status post arthroscopic knee surgery S/P bilateral foot surgery S/p bilateral carpal tunnel release S/P tonsillectomy and adenoidectomy S/P bilateral cataract extraction S/P CABG x 3 Stented coronary artery H/O right heart catheterization Social History household members: spouse Smoking Status: Former smoker how long ago did patient quit smoking: Quit when he was 44 y/o, 1/2 ppd since 10 years old. alcohol intake: never substance use type: does not use ROS ROS ED Constitutional Constitutional ED: Denies chills or fever(s) Cardiovascular Cardiovascular: Reports as per HPI and chest pain Respiratory/Chest Respiratory/Chest: Reports cough Gastrointestinal Gastrointestinal: Denies abdominal pain, nausea or vomiting Musculoskeletal Musculoskeletal: Reports other Details: Recent right hip arthroplasty ; Denies arthralgias or myalgias Neurologic Neurologic: Denies paresthesias or weakness Psychiatric Psychiatric: Denies anxiety Hematologic/Lymphatic Hematologic/Lymphatic: Reports easy bleeding and other Details: On Eliquis EXAM Physical Exam Const Vital Signs: 11/25/24 14:13 11/25/24 14:35 11/25/24 15:12 Temperature 98.9 F Temperature Source Oral Pulse Rate 72 70 Respiratory Rate 18 17 Blood Pressure 120/54 L 91/53 L Blood Pressure Mean 76 65 Pulse Ox 98 97 100 Oxygen Delivery Method Room Air Room Air Room Air 11/25/24 16:00 11/25/24 16:16 11/25/24 17:00 Temperature Temperature Source Pulse Rate 66 55 L Respiratory Rate 14 17 Blood Pressure 89/44 L 108/56 L 114/55 L Blood Pressure Mean 59 73 74 Pulse Ox 99 93 Oxygen Delivery Method Room Air Room Air 11/25/24 17:12 Temperature 98.9 F Temperature Source Pulse Rate 55 L Respiratory Rate 17 Blood Pressure 114/55 L Blood Pressure Mean 74 Pulse Ox 93 Oxygen Delivery Method Positive well nourished and well developed General Appearance ED: well developed and NAD HEENT Reports moist mucous membranes Eyes PERRL Neck supple and no JVD Chest Wall inspection of chest normal and palpation of chest normal Resp normal respiratory effort and clear to auscultation bilaterally Resp Narrative: No crackles appreciated Auscultation: Negative for rhonchi or diminished lung sounds Cardio regular rate, regular rhythm and no murmurs GI normal to inspection, nondistended, normoactive bowel sounds and soft to palpation Neuro oriented x3 Sensorium / Orientation: awake and alert Motor Exam: Negative for general weakness Psych mental status grossly normal Skin no rashes or lesions noted Heart Score History: Moderately Suspicious ECG: Normal Age: >/= 65 years Risk Factors: >/= 3 Risk Factors or History of CAD Troponin: >1 - <3 Normal Limit Score: 6 MDM MDM MDM Narrative Medical decision making narrative: Patient is evaluated for an episode of chest pain that occurred less than the left side rating to his arm notedly by nitroglycerin. EKG not consistent with acute ischemia. Outpatient-see troponin minimally elevated at 61. Was sent in for further evaluation. He remains pain-free at this time. Vital signs normal. Cardiac workup including CBC, BMP, delta high-sensitivity troponin and chest x- ray ordered. High sensitive troponin still mildly elevated at 59 and 60 but not uptrending. He is pain-free at this time. His chest x-ray reviewed by myself as well as radiology was concerning for multifocal pneumonia. Hedoes not have fever or leukocytosis and I do not thinkthat this is an acute pneumonia however he does report a new cough over the pastmonth. The case is discussed with the patient's doctor in his nursing facility, Dr. Hamilton, she states thatpatient was fluid overloaded and does not have pneumonia but was diuresed. She would like him admitted for further cardiac evaluation and cardiology consult before returning back to [facility]. Patient's's case is discussed with the main physician, Dr. Bedoya. Patient will be admitted for further ACS workup given episode of chest pain with mildly elevated troponins. At this time I do not think this is ACS and I do not think he requires a heparin drip at this time. He is anticoagulated on Eliquis. Patient agreeable with plan of care. Patient currently appears euvolemic I do not think requires diuresis but will add on a BNP. BNP elevated but mildly downtrending compared to last month History & Record Review Additional record(s) reviewed:: Other (Echocardiogram on 11/08/2024-bileaflet diffuse mitral valve thickening, mild concentric LVH and EF 65% with stage III diastolic dysfunction) Lab Data Attestation: I reviewed the patient's lab results. Labs: Laboratory Results - last 24 hr 11/25/24 11/25/24 14:15 14:19 WBC 8.1 RBC 3.23 L Hgb 8.7 L Hct 29.0 L MCV 89.8 MCH 26.9 L MCHC 30.0 L RDW Std Deviation 47.2 H RDW Coeff of Jaqueline 14.5 Plt Count 158 MPV 12.9 H Immature Gran % (Auto) 3.600 H Neut % (Auto) 64.7 Lymph % (Auto) 26.1 [place] % (Auto) 4.0 Eos % (Auto) 1.1 Baso % (Auto) 0.5 Absolute Neuts (auto) 5.2 Absolute Lymphs (auto) 2.11 Nucleated RBC % 0 Sodium 137 Potassium 5.4 H Chloride 102 Carbon Dioxide 25.1 Anion Gap 10 BUN 20 H Creatinine 1.34 H Estim Creat Clear Calc 38.28 L Est GFR (MDRD) Non-Af 52 L BUN/Creatinine Ratio 14.9 Glucose 112 H Calcium 9.2 Troponin T High Sens 59 H* Troponin T Hi Sens 2 Hr 60 H* Radiography Chest X-Ray - ED: 2 View, Read by ED Physician, Read by Radiologist and CHF Diagnostic Testing: Clinical Impression(s) from Imaging Studies Chest X-Ray 11/25/24 15:20 IMPRESSION: Findings concerning for multifocal pneumonia. Reading Location: [facility] Rhythm Strip Rhythm Strip: Sinus Rhythm Rate: 70 Ectopy: None EKG Initial EKG: Attestation: I personally reviewed and interpreted this EKG as follows: Interpretation: Sinus Rhythm Comments: Normal sinus rhythm at a rate of 70 bpm with prolonged ID interval Normal axis Bifascicular block with right bundle branch block left anterior fascicular block Normal ST segments No significant change compared to prior EKG on 11/08/2024 Differential Diagnosis Chest pain/SOB: pulmonary embolism Reason(s) PE less likely: Positive for not tachycardic, not hypoxic and patient taking oral anticoagulants, pneumothorax Reason(s) pneumothorax less likely: Positive for bilateral breath sounds and CSRwithhout PTX and pneumonia Reason(s) pneumonia less likely: Positive for no elevation in WBC count, no noted fever and symptoms not consistent with acute infection Management Discussion w/another healthcare provider: Hospitalist and PCP Discharge Plan Dx/Rx/DC Orders Clinical Impression: Chest pain, CAD (coronary artery disease), Elevated troponin Disposition Disposition: Acute Care [facility] Discharge Date/Time: 11/25/24 17:55 What to do if you have Problems For any increased pain, shortness of breath, bleeding, nausea or vomiting, chestpain, or any unexpected problems, contact your Primary Care Provider. Call [facility] ([phone]) or report tothe closest Emergency Room. Call 911 if necessary. 11/25/241816 Cosigner Signature (if applicable): CC: PANCHITO Quinteros ~ Signed [facility]04-04-2025 Radiology Diagnostic study note [facility] Imaging Services [address] [place] [address] Chest PA and Lateral MR#: [id number] Acct: [id number] Name: ANGIE DUTTON Rep #: [id number] : 1940 M 84 From: Mai Shoemaker MD PCP: PANCHITO Harris Status: REG ER Study:Chest PA and Lateral Date of Exam: 11/25/24 Exam# [id number] Ordering Dr: Omid Goodrich DO PROCEDURE: CHEST PA AND LATERAL 11/25/2024 REASON FOR EXAM: CHEST PAIN TECHNIQUE: Frontal and lateral views of the chest. COMPARISON: 11/07/2024 FINDINGS: Hardware: Status post median sternotomy Heart: Heart size is mildly enlarged. Mediastinum: The mediastinal contour is stable. Lungs: Consolidative opacities bilateral upper lobes, more prominent on the right. No pneumothorax.No pleural effusion. [id number]-[id number]-[id number]-left basilar atelectasis. Bones: Degenerative changes are identified within the thoracic spine. RAD/Chest PA and Lateral IMPRESSION: Findings concerning for multifocal pneumonia. Reading Location: [facility] CC: PANCHITO Quinteros; Dr. Radha Goodrich DO ~ Health Plan Advisor: Signed [facility]03-31-2025 Instructions* Patient Instructions* Carlin Keenan - 11/21/2024 10:46 AM EDT Follow up with Ortho as scheduled BP is low in office - check with primary care re: BP medications He is unsure of what he is receiving at SNF. States meds are crushed Check CBC in 1 month - outside order given today Please print off appointments documented in [facility]The [facility] History of Present illness Narrative* Carlin Keenan - 11/21/2024 10:23 AM EDT Angie Dutton 1940 HISTORY OF PRESENT ILLNESS: Angie Dutton is a 83 year old male late March 2024, his dog bit his right forearm, was squirted out per pt, blood was everywhere. Went to [facility]. Notes and labs reviewed. Hgb was down to 8.7 in late March (about 1 week after this happened). Iron was low, placed on oral iron April 19, 2024. Labs look like iron is absorbing. US liver in 2018 showed coarse echotexture CrCl 38 Wants hip replacement won;t do now because of thrombocytopenia. Did a trial of steroids, platelets today 122K. Interval Hx: Presents today for follow up of labs. He is currently residing in SNF. Does not know why he is here today. They just told me to get ready. Has a chronic cough. No known fevers. States he went to [facility] for cough but it hasn't improved. Reviewing the notes it appears that he was admitted for low hgb. Does not know which meds he is taking. Did not arrive with paperwork from SNF. Our office has requested information from them today. BP is low today - on BP medications. Hgb has improved from 8.8 to 9. Labs in chat from 11/16/24. Perseverating on hip surgery today. I should be walking by now . Reviewed previous note and upcoming appointment with him today. Denies overt s/s of bleeding. No changes in bowel or bladder habits. 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 US likely showing fatty liver. Worsened anemia due to recent blood loss, iron deficiency. 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 versus natural fluctuation in platelet count we see in hypersplenism RECOMMENDATION/PLAN: Follow up with Ortho as scheduled Hypotension, denies symptoms - check with primary care/SNF re: BP medications Check CBC in 1 month 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 PAST SURGICAL HISTORY Procedure Laterality Date ARTHROSCOPY KNEE DIAGNOSTIC W/WO SYNOVIAL BX SPX 2000 both COLONOSCOPY FLX DX W/COLLJ SPEC WHEN PFRMD 2001 Colonoscopy COLONOSCOPY FLX DX W/COLLJ SPEC WHEN PFRMD 07/13/2014 Colonoscopy COLONOSCOPY GEN ANES 11/26/2020 CORONARY ARTERY BYP W/VEIN & ARTERY GRAFT 3 VEIN 1981 CABG, three grafts EGD 11/26/2020 EGD 02/14/2021 EYE SURGERY HX FOOT SURGERY HX Left HEART SURGERY HX NEUROPLASTY &/TRANSPOS MEDIAN NRV CARPAL TUNNE 1998 Carpal tunnel decomp bilateral PAST SURGICAL HISTORY OF surgery on umbilicus due to bleeding PAST SURGICAL HISTORY OF 1961 umbical mass resection SIGMOIDOSCOPY FLX DX W/COLLJ SPEC BR/WA IF PFRMD 08/29/2004 Sigmoidoscopy TONSILLECTOMY HX FAMILY HISTORY Problem Relation Age of Onset Heart Mother Hypertension Mother Heart Father Heart Sister Heart Brother Stroke Sister Colon Cancer No Family History Social History Tobacco Use Smoking status: Former Current packs/day: 0.00 Types: Cigarettes Start date: 08/24/1955 Quit date: 08/24/1984 Years since quittin.2 Smokeless tobacco: Never Tobacco comments: QUIT at age 44, started at 15 Vaping Use Vaping status: Never Used Substance Use Topics Alcohol use: Yes Comment: occ Drug use: Never ALLERGIES: ALLERGIES Allergen Reactions Sulfa (Sulfonamide * Vomiting CURRENT OUTPATIENT MEDICATIONS: acetaminophen (TYLENOL) 650 mg suppository 650 mg by RECTAL route every 4 hours as needed. amiodarone (PACERONE) 200 mg tablet Take 200 mg by mouth once daily. aluminum-magnesium hydroxide-simethicone (MAALOX,MYLANTA,MAG-AL PLUS) 200-200-20 mg/5 mL suspensionTake 30 mL by mouth every 4 hours as needed. bisacodyl (DULCOLAX) 10 mg supp 10 mg by RECTAL route as needed for constipation. sodium phosphate,mono-dibasic (FLEET ENEMA RECTAL) 1 Enema by RECTAL route as needed. GUAIFENESIN ORAL Take 10 mL by mouth every 4 hours as needed. magnesium hydroxide (MILK OF MAGNESIA ORAL) Take 30 mL by mouth as needed. simvastatin (ZOCOR) 20 mg tablet Take 20 mg by mouth daily at bedtime. traZODone (DESYREL) 150 mg tablet Take 1/2 tablet by mouth once daily at bedtime. potassium chloride ER (KLOR-CON) 20 mEq tablet Take 20 mEq by mouth two times a day. multivitamin tablet Take 1 tablet by mouth once daily. vitamin B complex/minerals (STRESS B PLUS ZINC ORAL) Take 1 tablet by mouth once daily. furosemide (LASIX) 40 mg tablet Take 40 mg by mouth once daily. hydrOXYzine pamoate (VISTARIL) 25 mg capsule Take 25 mg by mouth three times a day as needed. ondansetron (ZOFRAN) 4 mg tablet Take 4 mg by mouth every 6 hours as needed for nausea/vomiting. acetaminophen (TYLENOL) 500 mg tablet Take 2 tablets by mouth every 8 hours as needed for pain. ascorbic acid, vitamin C, (VITAMIN C) 500 mg tablet Take 1 tablet by mouth two times a day with meals for 15 doses. polyethylene glycol 3350 17 gram packet Take 1 Packet by mouth once daily as needed for constipation. Dissolve dose in 4 - 8 ounces of liquid and take as directed. pantoprazole DR (PROTONIX) 20 mg tablet Take 2 tablets by mouth once daily. gabapentin (NEURONTIN) 400 mg capsule Take 1 capsule by mouth two times a day for 180 days. docusate sodium (COLACE) 100 mg capsule Take 1 capsule by mouth every morning. apixaban (ELIQUIS) 5 mg tab(s) Take 1 tablet by mouth two times a day. ferrous sulfate 325 mg (65 mg iron) tablet Take 1 tablet by mouth once daily. metoprolol succinate ER (TOPROL XL) 50 mg 24 hr tablet Take 1 tablet by mouth every afternoon. metFORMIN ER (GLUMETZA) 500 mg 24 hr tablet Take 1 tablet by mouth daily with breakfast. ezetimibe (ZETIA) 10 mg tablet Take 1 tablet by mouth once daily. isosorbide mononitrate ER (IMDUR) 30 mg 24 hr tablet Take 0.5 tablets by mouth once daily. tamsulosin (FLOMAX) 0.4 mg Take 1 capsule by mouth daily at bedtime. nitroglycerin sublingual (NITROQUICK) 0.4 mg SL tablet Dissolve 1 tablet under the tongue as directed. DISSOLVE ONE(1) TABLET UNDER THE TOUNGUE NEEDED FOR CHEST PAIN,EVERY 5 MIN X3 amiodarone 400 mg tablet Take 1 tablet by mouth two times a day. (Patient not taking: Reported on 11/21/2024) clopidogrel (PLAVIX) 75 mg tablet Take 75 mg by mouth once daily. (Patient not taking: Reported on 11/18/2024) simvastatin (ZOCOR) 40 mg tablet Take 1 tablet by mouth daily at bedtime. (Patient not taking: Reported on 11/21/2024) traZODone (DESYREL) 50 mg tablet Take 1 tablet by mouth daily at bedtime. (Patient not taking: Reported on 11/21/2024) REVIEW OF SYSTEMS: GENERAL: No fever, night sweats, weight loss or malaise. All other reviewed and negative other than HPI. All systems reviewed on 11/21/24 with pertinent positives and negatives as outlined in the interval history. PHYSICAL EXAMINATION: VITAL SIGNS: BP 97/57 Pulse 81 Temp (Src) 98.1 (Temporal) Wt 0 lb (0.0kg) SpO2 95% GENERAL APPEARANCE: Well appearing, in no acute distress, well-hydrated, well nourished. Chest: Clear, equal bilaterally, no wheezes Heart: RRR Extremities: No edema. I have performed the physical exam today (11/21/2024) and have edited the note to correlate with current findings. Carlin Keenan APRN.ASSISTANT PORTFOLIO MANAGER I spent a total of 30 minutes on the date of the service which included preparing to see the patient, [id number] patient care, completing clinical documentation, obtaining and/or reviewing separately obtained history, performing a medically appropriate examination, and ordering medications, tests, or procedures. Portions of this note including HPI, ROS, impression/plan may have been copied forward as to provide important historical information essential in contributing to medical decision making. Documentation has been reviewed and edited as necessary to support clinical decision making for today's visit and to reflect my own independent evaluation of this patient. documented in this encounterThe [facility]03-28-[facility]25 Instructions* Patient Instructions* Harleen Armenta APRN.ASSISTANT PORTFOLIO MANAGER - 11/18/2024 2:12 PM EDT PLAN AND RECOMMENDATIONS: Consider CXR due to cough Decrease zocor to 20mg daily Increase lasix to 80mg for 3 days then back to 40 daily Follow up 3 months Harleen CONTACT INFORMATION: Harleen Armenta APRN.CNP Cardiology Nurse Practitioner Section of Regional Cardiology [facility] Dept of Cardiovascular Medicine [facility] [place] [address] [place] [address] Office Office documented in this encounterThe [facility]03-28-2025 NoteAd[facility]03-28-2025 History of Present illness Narrative* Harleen Armenta APRN.CNP - 11/18/2024 1:32 PM EDT Images from the original note were not included. Heart and V[facility] [place] [facility] Department of Cardiovascular Medicine SECTION OF CLINICAL CARDIOLOGY OUTPATIENT VISIT DATE November 18, 2024 OUTPATIENT VISIT TYPE ESTABLISHED PRIMARY CARE PHYSICIAN: Valery Quinteros [address] [place] [address] REFERRING PHYSICIAN: Jennifer Segovia [address] [place] [address] CHIEF COMPLAINT: No chief complaint on file. HISTORY OF PRESENT ILLNESS: Mr. Dutton is a 84 year old male with PMH of s/p right total hip arthroplasty on 10/07/2024 with PMH including but not limited to CAD s/p CABG x 3 (1985), PCI x 2 (2007), former smoker, hyperlipidemia, hypertension, CKD stage 3, paroxysmal AFIB, PVD and hiatal hernia. EF 65%. who presents today for a cardiovascular medicine follow-up visit after his hospitalization in September for his hip arthroplasty where cardiology was on consult for multiple episodes of SVT. He was treated with amiodarone at the time and sent home on p.o. amiodarone. He is currently in a rehab facility. His medication list from the facility does not include amiodarone. Has a productive cough , states he was up all night coughing because his room is hot. States his leg swelling is improved since he went home from the hospital and after he had his hip fixed, but still has swelling in both legs. He denies shortness of breath, chest pain, palpitations, dizziness, lightheadedness, PND, orthopnea, presyncope, syncope, or claudication symptoms Subjective 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 PAST SURGICAL HISTORY Procedure Laterality Date ARTHROSCOPY KNEE DIAGNOSTIC W/WO SYNOVIAL BX SPX 2000 both COLONOSCOPY FLX DX W/COLLJ SPEC WHEN PFRMD 2001 Colonoscopy COLONOSCOPY FLX DX W/COLLJ SPEC WHEN PFRMD 07/13/2014 Colonoscopy COLONOSCOPY GEN ANES 11/26/2020 CORONARY ARTERY BYP W/VEIN & ARTERY GRAFT 3 VEIN 1981 CABG, three grafts EGD 11/26/2020 EGD 02/14/2021 EYE SURGERY HX FOOT SURGERY HX Left HEART SURGERY HX NEUROPLASTY &/TRANSPOS MEDIAN NRV CARPAL TUNNE 1998 Carpal tunnel decomp bilateral PAST SURGICAL HISTORY OF surgery on umbilicus due to bleeding PAST SURGICAL HISTORY OF 1961 umbical mass resection SIGMOIDOSCOPY FLX DX W/COLLJ SPEC BR/WA IF PFRMD 08/29/2004 Sigmoidoscopy TONSILLECTOMY HX Social History Tobacco Use Smoking status: Former Current packs/day: 0.00 Types: Cigarettes Start date: 08/24/1955 Quit date: 08/24/1984 Years since quittin.2 Smokeless tobacco: Never Tobacco comments: QUIT at age 44, started at 15 Vaping Use Vaping status: Never Used Substance Use Topics Alcohol use: Yes Comment: occ Drug use: Never FAMILY HISTORY Problem Relation Age of Onset Heart Mother Hypertension Mother Heart Father Heart Sister Heart Brother Stroke Sister Colon Cancer No Family History ALLERGIES: ALLERGIES Allergen Reactions Sulfa (Sulfonamide * Vomiting MEDICATIONS: acetaminophen (TYLENOL) 500 mg tablet Take 2 tablets by mouth every 8 hours as needed for pain. ascorbic acid, vitamin C, (VITAMIN C) 500 mg tablet Take 1 tablet by mouth two times a day with meals for 15 doses. polyethylene glycol 3350 17 gram packet Take 1 Packet by mouth once daily as needed for constipation. Dissolve dose in 4 - 8 ounces of liquid and take as directed. amiodarone 400 mg tablet Take 1 tablet by mouth two times a day. pantoprazole DR (PROTONIX) 20 mg tablet Take 2 tablets by mouth once daily. gabapentin (NEURONTIN) 400 mg capsule Take 1 capsule by mouth two times a day for 180 days. clopidogrel (PLAVIX) 75 mg tablet Take 75 mg by mouth once daily. docusate sodium (COLACE) 100 mg capsule Take 1 capsule by mouth every morning. apixaban (ELIQUIS) 5 mg tab(s) Take 1 tablet by mouth two times a day. ferrous sulfate 325 mg (65 mg iron) tablet Take 1 tablet by mouth once daily. metoprolol succinate ER (TOPROL XL) 50 mg 24 hr tablet Take 1 tablet by mouth every afternoon. metFORMIN ER (GLUMETZA) 500 mg 24 hr tablet Take 1 tablet by mouth daily with breakfast. ezetimibe (ZETIA) 10 mg tablet Take 1 tablet by mouth once daily. isosorbide mononitrate ER (IMDUR) 30 mg 24 hr tablet Take 0.5 tablets by mouth once daily. simvastatin (ZOCOR) 40 mg tablet Take 1 tablet by mouth daily at bedtime. tamsulosin (FLOMAX) 0.4 mg Take 1 capsule by mouth daily at bedtime. traZODone (DESYREL) 50 mg tablet Take 1 tablet by mouth daily at bedtime. nitroglycerin sublingual (NITROQUICK) 0.4 mg SL tablet Dissolve 1 tablet under the tongue as directed. DISSOLVE ONE(1) TABLET UNDER THE TOUNGUE NEEDED FOR CHEST PAIN,EVERY 5 MIN X3 REVIEW OF SYSTEMS: CARD: See HPI GENERAL: Negative for: Weight loss or gain, Fever and/or Chills HEENT: Negative for: Headache, Impaired Vision, Glasses, Hearing Impairment, Ringing in Ears, Nosebleeds, Bleeding Gums NECK: Negative for: Swelling, Pain, Stiffness RESPIRATORY: Negative for: Cough, Blood in Sputum, Shortness of breath, Wheezing, Apnea GASTROINTESTINAL: Negative for: Nausea, Vomiting, Diarrhea, Blood in stool, or Dark black stools MUSCULOSKELETAL: Negative for: Muscle or joint pain, Stiffness , Joint swelling NEUROLOGIC: Negative for: focal numbness/weakness, headaches, visual changes, ataxia, speech/language loss SKIN: Negative for: Rashes, Itching HEMATOLOGICAL/LYMPHATIC: Negative for: Easy bruising , Easy bleeding ENDOCRINE: Negative for: Heat or cold intolerance, Excessive sweating, Frequent urination, Frequentthirst Objective PHYSICAL EXAMINATION: There were no vitals taken for this visit. General: Well appearing, in no acute distress. Skin: No clubbing, no cyanosis. Eyes: Extra ocular movements intact Neck: No jugular venous distention, no carotid bruits, carotids have a normal upstroke. Lungs: Clear to auscultation bilaterally, no wheezing or rhonchi. Heart: Regular rhythm, S1, S2 normal, no murmur. No peripheral edema . Grade 2/4 distal pulses bilaterally. Neuro: Oriented to person, place and time, alert, cooperative, gait coordinated. CARDIOVASCULAR MEDICINE TESTING: No Cardiovascular testing perfomed today. Last EKG Result Conclusion ECG COMPLETE Collected: 10/11/2024 7:42 AM (Final result) Impression: NORMAL SINUS RHYTHM POSSIBLE ANTEROLATERAL INFARCT (CITED ON OR BEFORE 09-Oct-2024) LEFTWARD AXIS WHEN COMPARED WITH ECG OF 09-Oct-2024 17:44, RIGHT BUNDLE BRANCH BLOCK IS NO LONGER PRESENT Confirmed by MD CAMI, QARAB ([id number]) on 10/11/2024 12:52:58 PM There were no tests performed for review. I personally interviewed, confirmed and edited the above information if obtained by others. Conclusion: (I10) Essential hypertension, benign (primary encounter diagnosis) Comment: Blood pressure is soft. Plan: Due to the swelling however increasing Lasix for 3 days. (I25.10) Coronary artery disease involving [place] coronary artery of [place] heart without angina pectoris Comment: No chest pain or ischemic symptoms Plan: Decrease Zocor (I48.0) Paroxysmal A-fib (HCC) Comment: hx of PAF, Had multiple episodes of SVT in the hospital, regular rhythm here Plan: Continue Eliquis and metoprolol Dyslipidemia: Decrease Zocor to 20 mg daily Continue Zetia, will discontinue next visit. PLAN AND RECOMMENDATIONS: Consider CXR due to cough Decrease zocor to 20mg daily Increase lasix to 80mg for 3 days then back to 40 daily Follow up 3 months Harleen CONTACT INFORMATION: Harleen Armenta APRN.CNP Cardiology Nurse Practitioner Section of Regional Cardiology [facility] Dept of Cardiovascular Medicine [facility] [place] [address] [place] [phone] Office Office This note was partially generated using [employer] voice recognition system and may contain errors related to that system including grammar, punctuation, spelling, and words that may be inappropriate documented in this encounterThe [facility]03-20-2025 Discharge summary Author [facility] Note Date/Time November 10, 2024 11: 25[facility] Medical Records Department [address] [facility] [place] [address] Discharge Summary 11/10/24 1106 MR#: [id number] Acct: [id number] Name: ANGIE DUTTON Rep #:[id number] : 1940 84 From: Andrey steen DO PCP: PANCHITO Harris Status:ADM IN Location: [place] [id number] 1 Providers Date of Admission: 11/07/24 Date of Discharge: 11/10/24 Primary Care Physician: PANCHITO Harris Consultations 11/07/24 17:34 Consult: Gastroenterology Routine Consulting Provider: [facility] Reason for Consult: suspected GIB on Eliquis and plavix, unclear upper vs lower EMERGENT Consult: No MD Notified: Yes Date Notified: 11/07/24 Time Notified: 17:38 Method of Notification: Text Reason For Visit: SUSPECTED GIB WITH ACUTE ON CHRONIC ANEMIA Diagnosis Discharge Diagnosis (1) Acute heart failure with preserved ejection fraction (HFpEF): Status: Acute Code(s): I50.31 - Acute diastolic (congestive) heart failure (2) Acute on chronic anemia: Status: Chronic Code(s): D64.9 - Anemia, unspecified Medications at Discharge Home Medications isosorbide mononitrate 30 mg tablet,extended release 24 hr 15 mg PO DAILY HEART 08/23/19 gabapentin 400 mg capsule 400 mg PO BID NERVE PAIN 06/25/21 simvastatin 40 mg tablet 40 mg PO DAILY CHOLESTEROL 06/25/21 trazodone 50 mg tablet 50 mg PO QHS SLEEP 06/25/21 ezetimibe 10 mg tablet 10 mg PO DAILY 09/24/23 apixaban 5 mg tablet (Eliquis) 5 mg PO BID #60 tabs 09/26/23 metoprolol succinate 50 mg tablet,extended release 24 hr 50 mg PO DAILY #30 tabs09/26/23 acetaminophen 500 mg capsule 1,000 mg PO Q8H PRN PRN fever or pain 11/07/24 acetaminophen 650 mg rectal suppository 650 mg ID Q4H PRN fever or pain 11/07/24 aluminum-magnesium hydroxide 200 mg-200 mg/5 mL oral suspension (MAG-AL) 30 ml PO Q4H PRN dyspepsia 11/07/24 amiodarone 200 mg tablet 200 mg PO DAILY 11/07/24 ascorbic acid (vitamin C) 500 mg capsule 500 mg PO BID SUPPLEMENT 11/07/24 bisacodyl 10 mg rectal suppository 10 mg ID DAILY PRN constipation 11/07/24 docusate sodium 100 mg capsule 100 mg PO DAILY 11/07/24 ferrous sulfate 325 mg (65 mg iron) tablet (FeroSul) 325 mg PO DAILY 11/07/24 guaifenesin 100 mg/5 mL oral liquid (Adult Tussin Chest Congestion) 200 mg PO Q4H PRN congestion 11/07/24 hydroxyzine HCl 25 mg tablet 25 mg PO TID PRN anxiety 11/07/24 magnesium hydroxide 400 mg/5 mL oral suspension (Milk of Magnesia) 30 ml PO DAILY PRN constipation 11/07/24 metformin 500 mg tablet,extended release 24 hr 500 mg PO DAILY 11/07/24 ondansetron 4 mg disintegrating tablet 4 mg PO Q6H PRN nausea and vomiting 11/07/24 polyethylene glycol 3350 17 gram/dose oral powder (ClearLax) 17 g PO DAILY 11/07/24 sodium phosphates 19 gram-7 gram/118 mL enema (Fleet Enema) 118 ml ID DAILY PRN constipation 11/07/24 tamsulosin 0.4 mg capsule 0.4 mg PO Q24H 11/07/24 furosemide 40 mg tablet 40 mg PO DAILY 30 days #0 tabs 11/10/24 pantoprazole 40 mg tablet,delayed release (Protonix) 40 mg PO BID 30 days #60 tabs 11/10/24 Hospital Course Operations None Procedures EGD, EKG, Transesophageal Echo and - (Chest x-ray) Summary of Care Provided Minutes Spent on Discharge: 35 Hospital Course: Patient is an 84-year-old male who presented to [facility] ED on11/07/2024 with acute on chronic anemia due to GI bleed. Hospital course as noted below. Patient stable for discharge back to SNF on 11/10. 1. Acute on chronic anemia due to GI bleed ? GI followed. Hemoglobin 6.1 on admit. S/p EGD on 11/08 that showed 3 bleedingangiodysplastic lesions in the stomach that were treated with heater probe. Patient received 3 units of blood total and hemoglobin 8.2 on day of discharge. Treated with IV PPI twice daily here, will discharge on p.o. PPI twice daily. Recommend repeat CBC in 3 to 5 days to ensure hemoglobin remains stable. Okay to resume home Eliquis on discharge but will hold Plavix as patient has only remote history of CABG and stenting recently. 2. Acute HFpEF ? Last echo in 09/2023 showed EF 65%, mild eccentric LV hypertrophy, stage II diastolic dysfunction, mild pulmonary hypertension. Patient with +3-4 lower extremity edema on exam and chest x-ray with cardiomegaly with central vascular prominence and suspected trace pulmonary edema. Repeat echo on 11/07 showed EF 65% with stage III diastolic dysfunction, no other new findings. Treated with IV Lasix 40 mg twice daily here with good improvement. Discharged on Lasix 40 mg daily. 3. Mild PEG, resolved ? Creatinine 1.61 on admit, baseline appears to be around 1.3. Suspect due to cardiorenal syndrome in setting of acute HFpEF as noted above. Improved back tobaseline with treatment of HFpEF as above. 4. Acute on chronic debility with recent right total hip replacement ? PT/OT/case management followed. Patient had recent total hip replacement doneat [facility] on 10/07. He was living at home prior to that and was discharged to SNF at [facility]. Patient stable for discharge back to [facility] on 11/10. 5. Paroxysmal A-fib, history of CAD with CABG, hypertension, hyperlipidemia ? Was hospitalized here in September 2023 for A-fib with RVR. Cardiology followed and it appears she was discharged on Toprol. He now has amiodarone on her medication list, unclear on when this was started. Will continue both amiodarone and Toprol. Has history of CABG x 3, appears to be remote. Home Eliquis and Plavix held during hospitalization. Will resume Eliquis on discharge but continue to hold Plavix. Continue home nitrate and statin. 6. Mild pancytopenia ? WBC count 3.8, platelet count 95 and hemoglobin low as above during admission. Unclear etiology but suspect in part due to GI bleed. Continue to monitor in outpatient setting going forward. Chronic medical conditions: ? Type 2 diabetes mellitus with neuropathy: Treated with sliding-scale insulin with meals while inpatient. Okay to resume home metformin on discharge. Continue home gabapentin. ? BPH with obstructive symptoms: Continue home Flomax. ? GERD: Continue home PPI. Total clinical time spent by myself addressing the patient's medical issues, reviewing all the data, and collaborating with patient's care team: 35 minutes. Physical Exam Const alert, no apparent distress and average body habitus Constitutional Narrative: Elderly male, mildly fatigued and pale appearing, alert and oriented to person and place but not time, laying back comfortably in bed and answering questions with tangential responses, otherwise in no acute distress. General Appearance: cooperative and comfortable HEENT normocephalic, head/scalp atraumatic, hearing grossly normal bilaterally, nasal mucous membranes and turbinates normal and moist oral mucous membranes Eyes PERRL, EOMs intact bilaterally and conjunctivae normal Neck full ROM Chest inspection of chest normal Resp normal respiratory effort, normal air movement, no use of accessory muscles and clear to auscultation bilaterally Cardio regular rate, regular rhythm, no murmurs and peripheral pulses 2+ throughout GI normal to inspection, nondistended, normoactive bowel sounds, soft to palpation,non-tender and non-distended Back/Spine normal ROM Extremity Extremity Narrative: Trace lower extremity edema, much improved from admission. Skin no rashes or lesions noted Neuro moves all extremities and no focal motor deficits Speech: speech normal Psych mental status grossly normal Weight / BMI Weight Weight: 85.2 kg Body Mass Index (BMI) 28.5 ABG / Lab / Microbiology Data 11/10/24 04:31 11/10/24 04:31 Laboratory: Laboratory Results - last 24 hr 11/07/24 13:40: Crossmatch See Detail 11/09/24 11:28: POC Glucose 132 H 11/09/24 16:05: POC Glucose 105 11/09/24 20:30: POC Glucose 103 11/10/24 04:31: WBC 3.5 L, RBC 2.87 L, Hgb 8.2 L, Hct 26.1 L, MCV 90.9, MCH 28.6, MCHC 31.4 L, RDW Std Deviation 55.6 H, RDW Coeff of Jaqueline 16.8 H, Plt Count 96 L, MPV 12.8 H, Immature Gran % (Auto) 0.600, Neut % (Auto) 58.1, Lymph % (Auto) 34.0, [place] % (Auto) 5.8, Eos % (Auto) 1.2, Baso % (Auto) 0.3, Absolute Neuts (auto) 2.0, Absolute Lymphs (auto) 1.18, Nucleated RBC % 0, Sodium 136, Potassium 3.8, Chloride 103, Carbon Dioxide 21.9, Anion Gap 11, BUN 23 H, Creatinine 1.37 H, Estim Creat Clear Calc 41.12 L, Est GFR (MDRD) Non-Af 50 L, BUN/Creatinine Ratio 16.7, Glucose 105 H, Calcium 7.9 11/10/24 06:09: POC Glucose 99 Microbiology: Microbiology 11/07/24 15:12 Stool Stool Occult Blood (JOVANY) - Final Occult Blood Positive D/C Instructions DC O2, CPAP, BIPAP Needs Home O2 Discharge instructions: No Meaningful Use Info Meaningful Use Meaningful Use Diagnoses (Choose all that apply): None applicable Ischemic Stroke Statin Dosing Therapy Reference: STATIN DOSE THERAPY REFERENCE: * Patients > 75 years receive moderate or high dose statin therapy. * Patients 75 years or YOUNGER should receive HIGH intensity statin dose unless contraindicated. You will be required to document reason for non-treatment if statin daily dose does not meet guidelines. HIGH DOSE STATIN THERAPY DAILY Atorvastatin > than or = to 40 mg Rosuvastatin > than or = to 20 mg Amlodipine + Atorvastatin > than or = to 2.5/40 mg Ezetimibe + Simvastatin 10/80 mg Simvastatin 80mg Discharge Plan Admission Admit Date/Time: 11/07/24 16:06 Primary Reason for Your Visit: Worsening anemia with concern for GI bleed Attending Provider: Andrey Mitchell Primary Care Provider: Valery Quinteros Consulting Providers: Andrey Mitchell; Ju Fragoso Discharge Orders/Prescriptions Prescriptions: New furosemide 40 mg Tablet 40 mg PO DAILY 30 Days Qty: 0 0RF pantoprazole [Protonix] 40 mg tablet,delayed release (DR/EC) 40 mg PO BID 30 Days Qty: 60 0RF Continued isosorbide mononitrate 30 MG tablet extended release 24 hr 15 mg PO DAILY trazodone 50 mg tablet 50 mg PO QHS gabapentin 400 mg capsule 400 mg PO BID simvastatin 40 mg tablet 40 mg PO DAILY ezetimibe 10 mg tablet 10 mg PO DAILY metoprolol succinate 50 mg Tablet Extended Release 24 Hr 50 mg PO DAILY Qty: 30 0RF Eliquis 5 mg tablet 5 mg PO BID Qty: 60 0RF tamsulosin 0.4 mg capsule 0.4 mg PO Q24H metformin 500 mg tablet extended release 24 hr 500 mg PO DAILY acetaminophen 500 mg capsule 1,000 mg PO Q8H PRN PRN (Reason: fever or pain) acetaminophen 650 mg suppository 650 mg ID Q4H PRN (Reason: fever or pain) amiodarone 200 mg tablet 200 mg PO DAILY MAG-AL 200-200 mg/5 mL suspension 30 ml PO Q4H PRN (Reason: dyspepsia) ascorbic acid (vitamin C) 500 mg capsule 500 mg PO BID bisacodyl 10 mg suppository 10 mg ID DAILY PRN (Reason: constipation) docusate sodium 100 mg capsule 100 mg PO DAILY ferrous sulfate [FeroSul] 325 mg (65 mg iron) tablet 325 mg PO DAILY Fleet Enema 19-7 gram/118 mL enema 118 ml ID DAILY PRN (Reason: constipation) guaifenesin [Adult Tussin Chest Congestion] 100 mg/5 mL liquid 200 mg PO Q4H PRN (Reason: congestion) hydroxyzine HCl 25 mg tablet 25 mg PO TID PRN (Reason: anxiety) magnesium hydroxide [Milk of Magnesia] 400 mg/5 mL suspension 30 ml PO DAILY PRN (Reason: constipation) polyethylene glycol 3350 [ClearLax] 17 gram/dose powder 17 g PO DAILY ondansetron 4 mg tablet,disintegrating 4 mg PO Q6H PRN (Reason: nausea and vomiting) Discontinued clopidogrel 75 MG tablet 75 mg PO DAILY pantoprazole 20 mg tablet,delayed release (DR/EC) 20 mg PO BID amiodarone 400 mg tablet 400 mg PO DAILY Rx Instructions: UNTIL 11/12/24 furosemide 20 mg tablet 20 mg PO DAILY Glucagon Emergency Kit (human) 1 mg recon soln 1 mg IM Q20M PRN (Reason: hypoglycemia) Rx Instructions: until target blood sugar attained Referrals / Follow Up: Valery Quinteros CNS [Primary Care Provider] - Disposition Disposition (needs filled in before D/C Order can be placed): Alf Facility Charges/Coding Visit Charges Inpatient E&M: 62610 Disch Hosp >30min 11/10/24 1125 <Electronically signed by Andrey Mitchell DO> Cosigner Signature (if applicable): CC: PANCHITO Quinteros; Dr. Andrey Mitchell DO~ Signed [facility] Work Phone: [phone] Discharge summary [facility] Medical Records Department [address] [place] [id number] Discharge Summary 11/10/24 1106 MR#: [id number] Acct: [id number] Name: ANGIE DUTTON Fran Rep #:[id number] : 1940 84 From: Andrey steen DO PCP: PANCHITO Harris Status:ADM IN Location: [place] [address] Providers Date of Admission: 11/07/24 Date of Discharge: 11/10/24 Primary Care Physician: PANCHITO Harris Consultations 11/07/24 17:34 Consult: Gastroenterology Routine Consulting Provider: [facility] Reason for Consult: suspected GIB on Eliquis and plavix, unclear upper vs lower EMERGENT Consult: No MD Notified: Yes Date Notified: 11/07/24 Time Notified: 17:38 Method of Notification: Text Reason For Visit: SUSPECTED GIB WITH ACUTE ON CHRONIC ANEMIA Diagnosis Discharge Diagnosis (1) Acute heart failure with preserved ejection fraction (HFpEF): Status: Acute Code(s): I50.31 - Acute diastolic (congestive) heart failure (2) Acute on chronic anemia: Status: Chronic Code(s): D64.9 - Anemia, unspecified Medications at Discharge Home Medications isosorbide mononitrate 30 mg tablet,extended release 24 hr 15 mg PO DAILY HEART 08/23/19 gabapentin 400 mg capsule 400 mg PO BID NERVE PAIN 06/25/21 simvastatin 40 mg tablet 40 mg PO DAILY CHOLESTEROL 06/25/21 trazodone 50 mg tablet 50 mg PO QHS SLEEP 06/25/21 ezetimibe 10 mg tablet 10 mg PO DAILY 09/24/23 apixaban 5 mg tablet (Eliquis) 5 mg PO BID #60 tabs 09/26/23 metoprolol succinate 50 mg tablet,extended release 24 hr 50 mg PO DAILY #30 tabs09/26/23 acetaminophen 500 mg capsule 1,000 mg PO Q8H PRN PRN fever or pain 11/07/24 acetaminophen 650 mg rectal suppository 650 mg ID Q4H PRN fever or pain 11/07/24 aluminum-magnesium hydroxide 200 mg-200 mg/5 mL oral suspension (MAG-AL) 30 ml PO Q4H PRN [id number] amiodarone 200 mg tablet 200 mg PO DAILY 11/07/24 ascorbic acid (vitamin C) 500 mg capsule 500 mg PO BID SUPPLEMENT 11/07/24 bisacodyl 10 mg rectal suppository 10 mg ID DAILY PRN constipation 11/07/24 docusate sodium 100 mg capsule 100 mg PO DAILY 11/07/24 ferrous sulfate 325 mg (65 mg iron) tablet (FeroSul) 325 mg PO DAILY 11/07/24 guaifenesin 100 mg/5 mL oral liquid (Adult Tussin Chest Congestion) 200 mg PO Q4H PRN congestion 11/07/24 hydroxyzine HCl 25 mg tablet 25 mg PO TID PRN anxiety 11/07/24 magnesium hydroxide 400 mg/5 mL oral suspension (Milk of Magnesia) 30 ml PO DAILY PRN constipation 11/07/24 metformin 500 mg tablet,extended release 24 hr 500 mg PO DAILY 11/07/24 ondansetron 4 mg disintegrating tablet 4 mg PO Q6H PRN nausea and vomiting 11/07/24 polyethylene glycol 3350 17 gram/dose oral powder (ClearLax) 17 g PO DAILY 11/07/24 sodium phosphates 19 gram-7 gram/118 mL enema (Fleet Enema) 118 ml ID DAILY PRN constipation 11/07/24 tamsulosin 0.4 mg capsule 0.4 mg PO Q24H 11/07/24 furosemide 40 mg tablet 40 mg PO DAILY 30 days #0 tabs 11/10/24 pantoprazole 40 mg tablet,delayed release (Protonix) 40 mg PO BID 30 days #60 tabs 11/10/24 Hospital Course Operations None Procedures EGD, EKG, Transesophageal Echo and - (Chest x-ray) Summary of Care Provided Minutes Spent on Discharge: 35 Hospital Course: Patient is an 84-year-old male who presented to [facility] ED on11/07/2024 with acute on chronic anemia due to GI bleed. Hospital course as noted below. Patient stable for discharge back to SNF on 11/10. 1. Acute on chronic anemia due to GI bleed ? GI followed. Hemoglobin 6.1 on admit. S/p EGD on 11/08 that showed 3 bleedingangiodysplastic lesions in the stomach that were treated with heater probe. Patient received 3 units of blood total and hemoglobin 8.2 on day of discharge. Treated with IV PPI twice daily here, will discharge on p.o. PPI t wice daily. Recommend repeat CBC in 3 to 5 days to ensure hemoglobin remains stable. Okay to resumehome Eliquis on discharge but will hold Plavix as patient has only remote history of CABG and stenting recently. 2. Acute HFpEF ? Last echo in 09/2023 showed EF 65%, mild eccentric LV hypertrophy, stage II diastolic dysfunction,mild pulmonary hypertension. Patient with +3-4 lower extremity edema on exam and chest x-ray with cardiomegaly with central vascular prominence and suspected trace pulmonary edema. Repeat echo on 11/07 showed EF 65% with stage III diastolic dysfunction, no other new findings. Treated with IV Lasix 40 mg twice daily here with good improvement. Discharged on Lasix 40 mg daily. 3. Mild PEG, resolved ? Creatinine 1.61 on admit, baseline appears to be around 1.3. Suspect due to cardiorenal syndrome in setting of acute HFpEF as noted above. Improved back tobaseline with treatment of HFpEF as above. 4. Acute on chronic debility with recent right total hip replacement ? PT/OT/case management followed. Patient had recent total hip replacement doneat [facility] on 10/07. He was living at home prior to that and was discharged to SNF at [facility]. Patient stable for discharge back to [facility] on 11/10. 5. Paroxysmal A-fib, history of CAD with CABG, hypertension, hyperlipidemia ? Was hospitalized here in September 2023 for A-fib with RVR. Cardiology followed and it appears shewas discharged on Toprol. He now has amiodarone on her medication list, unclear on when this was started. Will continue both amiodarone and Toprol. Has history of CABG x 3, appears to be remote. HomeEliquis and Plavix held during hospitalization. Will resume Eliquis on discharge but continue to hold Plavix. Continue home nitrate and statin. 6. Mild pancytopenia ? WBC count 3.8, platelet count 95 and hemoglobin low as above during admission. Unclear etiology but suspect in part due to GI bleed. Continue to monitor in outpatient setting going forward. Chronic medical conditions: ? Type 2 diabetes mellitus with neuropathy: Treated with sliding-scale insulin with meals while inpatient. Okay to resume home metformin on discharge. Continue home gabapentin. ? BPH with obstructive symptoms: Continue home Flomax. ? GERD: Continue home PPI. Total clinical time spent by myself addressing the patient's medical issues, reviewing all the data, and collaborating with patient's care team: 35 minutes. Physical Exam Const alert, no apparent distress and average body habitus Constitutional Narrative: Elderly male, mildly fatigued and pale appearing, alert and oriented to person and place but not time, laying back comfortably in bed and answering questions with tangential responses, otherwise in no acute distress. General Appearance: cooperative and comfortable HEENT normocephalic, head/scalp atraumatic, hearing grossly normal bilaterally, nasal mucous membranes and turbinates normal and moist oral mucous membranes Eyes PERRL, EOMs intact bilaterally and conjunctivae normal Neck full ROM Chest inspection of chest normal Resp normal respiratory effort, normal air movement, no use of accessory muscles and clear to auscultation bilaterally Cardio regular rate, regular rhythm, no murmurs and peripheral pulses 2+ throughout GI normal to inspection, nondistended, normoactive bowel sounds, soft to palpation,non-tender and non-distended Back/Spine normal ROM Extremity Extremity Narrative: Trace lower extremity edema, much improved from admission. Skin no rashes or lesions noted Neuro moves all extremities and no focal motor deficits Speech: speech normal Psych mental status grossly normal Weight / BMI Weight Weight: 85.2 kg Body Mass Index (BMI) 28.5 ABG / Lab / Microbiology Data 11/10/24 04:31 11/10/24 04:31 Laboratory: Laboratory Results - last 24 hr 11/07/24 13:40: Crossmatch See Detail 11/09/24 11:28: POC Glucose 132 H 11/09/24 16:05: POC Glucose 105 11/09/24 20:30: POC Glucose 103 11/10/24 04:31: WBC 3.5 L, RBC 2.87 L, Hgb 8.2 L, Hct 26.1 L, MCV 90.9, MCH 28.6, MCHC 31.4 L, RDW Std Deviation 55.6 H, RDW Coeff of Jaqueline 16.8 H, Plt Count 96 L, MPV 12.8 H, Immature Gran % (Auto) 0.600, Neut % (Auto) 58.1, Lymph % (Auto) 34.0, [place] % (Auto) 5.8, Eos % (Auto) 1.2, Baso % (Auto) 0.3, Absolute Neuts (auto) 2.0, Absolute Lymphs (auto) 1.18, Nucleated RBC % 0, Sodium 136, Potassium 3.8, Chloride 103, Carbon Dioxide 21.9, Anion Gap 11, BUN 23 H, Creatinine 1.37 H, Estim Creat Clear Calc 41.12 L, Est GFR (MDRD) Non-Af 50 L, BUN/Creatinine Ratio 16.7, Glucose 105 H, Calcium 7.9 11/10/24 06:09: POC Glucose 99 Microbiology: Microbiology 11/07/24 15:12 Stool Stool Occult Blood (JOVANY) - Final Occult Blood Positive D/C Instructions DC O2, CPAP, BIPAP Needs Home O2 Discharge instructions: No Meaningful Use Info Meaningful Use Meaningful Use Diagnoses (Choose all that apply): None applicable Ischemic Stroke Statin Dosing Therapy Reference: STATIN DOSE THERAPY REFERENCE: * Patients > 75 years receive moderate or high dose statin therapy. * Patients 75 years or YOUNGER should receive HIGH intensity statin dose unless contraindicated. You will be required to document reason for non-treatment if statin daily dose does not meet guidelines. HIGH DOSE STATIN THERAPY DAILY Atorvastatin > than or = to 40 mg Rosuvastatin > than or = to 20 mg Amlodipine + Atorvastatin > than or = to 2.5/40 mg Ezetimibe + Simvastatin 10/80 mg Simvastatin 80mg Discharge Plan Admission Admit Date/Time: 11/07/24 16:06 Primary Reason for Your Visit: Worsening anemia with concern for GI bleed Attending Provider: Andrey Mitchell Primary Care Provider: Valery Quinteros Consulting Providers: Andrey Mitchell; Ju Fragoso Discharge Orders/Prescriptions Prescriptions: New furosemide 40 mg Tablet 40 mg PO DAILY 30 Days Qty: 0 0RF pantoprazole [Protonix] 40 mg tablet,delayed release (DR/EC) 40 mg PO BID 30 Days Qty: 60 0RF Continued isosorbide mononitrate 30 MG tablet extended release 24 hr 15 mg PO DAILY trazodone 50 mg tablet 50 mg PO QHS gabapentin 400 mg capsule 400 mg PO BID simvastatin 40 mg tablet 40 mg PO DAILY ezetimibe 10 mg tablet 10 mg PO DAILY metoprolol succinate 50 mg Tablet Extended Release 24 Hr 50 mg PO DAILY Qty: 30 0RF Eliquis 5 mg tablet 5 mg PO BID Qty: 60 0RF tamsulosin 0.4 mg capsule 0.4 mg PO Q24H metformin 500 mg tablet extended release 24 hr 500 mg PO DAILY acetaminophen 500 mg capsule 1,000 mg PO Q8H PRN PRN (Reason: fever or pain) acetaminophen 650 mg suppository 650 mg ID Q4H PRN (Reason: fever or pain) amiodarone 200 mg tablet 200 mg PO DAILY MAG-AL 200-200 mg/5 mL suspension 30 ml PO Q4H PRN (Reason: dyspepsia) ascorbic acid (vitamin C) 500 mg capsule 500 mg PO BID bisacodyl 10 mg suppository 10 mg ID DAILY PRN (Reason: constipation) docusate sodium 100 mg capsule 100 mg PO DAILY ferrous sulfate [FeroSul] 325 mg (65 mg iron) tablet 325 mg PO DAILY Fleet Enema 19-7 gram/118 mL enema 118 ml ID DAILY PRN (Reason: constipation) guaifenesin [Adult Tussin Chest Congestion] 100 mg/5 mL liquid 200 mg PO Q4H PRN (Reason: congestion) hydroxyzine HCl 25 mg tablet 25 mg PO TID PRN (Reason: anxiety) magnesium hydroxide [Milk of Magnesia] 400 mg/5 mL suspension 30 ml PO DAILY PRN (Reason: constipation) polyethylene glycol 3350 [ClearLax] 17 gram/dose powder 17 g PO DAILY ondansetron 4 mg tablet,disintegrating 4 mg PO Q6H PRN (Reason: nausea and vomiting) Discontinued clopidogrel 75 MG tablet 75 mg PO DAILY pantoprazole 20 mg tablet,delayed release (DR/EC) 20 mg PO BID amiodarone 400 mg tablet 400 mg PO DAILY Rx Instructions: UNTIL 11/12/24 furosemide 20 mg tablet 20 mg PO DAILY Glucagon Emergency Kit (human) 1 mg recon soln 1 mg IM Q20M PRN (Reason: hypoglycemia) Rx Instructions: until target blood sugar attained Referrals / Follow Up: Valery Quinteros CNS [Primary Care Provider] - Disposition Disposition (needs filled in before D/C Order can be placed): Alf Facility Charges/Coding Visit Charges Inpatient E&M: 79045 Disch Hosp >30min 11/10/24 112 Cosigner Signature (if applicable): CC: PANCHITO Quinteros; Dr. Andrey Mitchell DO~ Signed [facility]03-20-2025 Discharge summary [facility] Medical Records Department [address] [place] [address] Transfer to [facility] MR#: [id number] Acct: [id number] Name: ANGIE DUTTON Rep #:[id number] : 1940 84 From: Andrey steen DO PCP: PANCHITO Harris Status:ADM IN Certification of patient admission REQUIRED AT TIME OF ADMISSION. I CERTIFY THAT POST-HOSPITAL ECF SERVICES ARE REQUIRED TO BE GIVEN ON AN IN-PATIENT BASIS BECAUSE OF THE ABOVE NAMED PATIENT'S NEED FOR INTERMEDIATE CARE ON A CONTINUING BASIS FOR THE CONDITION(S) FOR WHICH HE/SHE WAS RECEIVING IN-PATIENT HOSPITAL SERVICES PRIOR TO HIS/HER TRANSFER TO THE [facility]. 11/10/24 1122 Diet Diet Order/Speech Therapy: 11/08/24 18:45 Diet: Regular - General Routine Orders/Code Status Routine Lab Work: CBC (Repeat in 3 to 5 days to ensure hemoglobin remains stable) Code Status: Full Code DC O2, CPAP, BIPAP needs Home O2 Discharge instructions: No Wound(s) R hip: Wound Type: Surgical Incision Therapies Weight Bearing: Full weight bearing Physical Therapy: Eval and Treat Occupational Therapy: Eval and Treat Problem/Diagnosis (1) Acute heart failure with preserved ejection fraction (HFpEF): Status: Acute Code(s): I50.31 - Acute diastolic (congestive) heart failure (2) Acute on chronic anemia: Status: Chronic Code(s): D64.9 - Anemia, unspecified Plan Patient is an 84-year-old male who presented to [facility] ED on11/07/2024 with acute on chronic anemia due to GI bleed. Hospital course as noted below. Patient stable for discharge back to SNF on 11/10. 1. Acute on chronic anemia due to GI bleed ? GI followed. Hemoglobin 6.1 on admit. S/p EGD on 11/08 that showed 3 bleedingangiodysplastic lesions in the stomach that were treated with heater probe. Patient received 3 units of blood total and hemoglobin 8.2 on day of discharge. Treated with IV PPI twice daily here, will discharge on p.o. PPI t wice daily. Recommend repeat CBC in 3 to 5 days to ensure hemoglobin remains stable. Okay to resumehome Eliquis on discharge but will hold Plavix as patient has only remote history of CABG and stenting recently. 2. Acute HFpEF ? Last echo in 09/2023 showed EF 65%, mild eccentric LV hypertrophy, stage II diastolic dysfunction,mild pulmonary hypertension. Patient with +3-4 lower extremity edema on exam and chest x-ray with cardiomegaly with central vascular prominence and suspected trace pulmonary edema. Repeat echo on 11/07 showed EF 65% with stage III diastolic dysfunction, no other new findings. Treated with IV Lasix 40 mg twice daily here with good improvement. Discharged on Lasix 40 mg daily. 3. Mild PEG, resolved ? Creatinine 1.61 on admit, baseline appears to be around 1.3. Suspect due to cardiorenal syndrome in setting of acute HFpEF as noted above. Improved back tobaseline with treatment of HFpEF as above. 4. Acute on chronic debility with recent right total hip replacement ? PT/OT/case management followed. Patient had recent total hip replacement doneat [facility] on 10/07. He was living at home prior to that and was discharged to SNF at [facility]. Patient stable for discharge back to [facility] on 11/10. 5. Paroxysmal A-fib, history of CAD with CABG, hypertension, hyperlipidemia ? Was hospitalized here in September 2023 for A-fib with RVR. Cardiology followed and it appears shewas discharged on Toprol. He now has amiodarone on her medication list, unclear on when this was started. Will continue both amiodarone and Toprol. Has history of CABG x 3, appears to be remote. HomeEliquis and Plavix held during hospitalization. Will resume Eliquis on discharge but continue to hold Plavix. Continue home nitrate and statin. 6. Mild pancytopenia ? WBC count 3.8, platelet count 95 and hemoglobin low as above during admission. Unclear etiology but suspect in part due to GI bleed. Continue to monitor in outpatient setting going forward. Chronic medical conditions: ? Type 2 diabetes mellitus with neuropathy: Treated with sliding-scale insulin with meals while inpatient. Okay to resume home metformin on discharge. Continue home gabapentin. ? BPH with obstructive symptoms: Continue home Flomax. ? GERD: Continue home PPI. Total clinical time spent by myself addressing the patient's medical issues, reviewing all the data, and collaborating with patient's care team: 35 minutes. Allergies/Procedures Done in Hospital Allergies Sulfa (Sulfonamide Antibiotics) Allergy (Verified 03/25/24 10:25) Unknown Procedures: EGD, EKG, Transthoracic Echo and - (Chest x-ray) Type of Care/Length of Stay Estimated LOS: [facility] Less Than 30 days Type of Care Needed: Skilled Rehab Potential: Fair Prognosis: Fair Additional Orders/Day of Discharge H&P will serve as current which was dated: 11/07/24 Day of Discharge: 11/10/24 Dietary and Speech Recommendations Dietitian Recommendations/Changes: Recommend advance diet as tolerated to Cardiac/sodium-restrictedwith 1500mL/day FR. Will offer ONS as needed when PO adequacy established with meals. Carbohydrate-restricted diet as indicated; currently blood glucose WNL. Discharge Plan Admission Admit Date/Time: 11/07/24 16:06 Primary Reason for Your Visit: Worsening anemia with concern for GI bleed Attending Provider: Andrey Mitchell Primary Care Provider: Valery Quinteros Consulting Providers: Andrey Mitchell; Ju Fragoso Discharge Orders/Prescriptions Prescriptions: New furosemide 40 mg Tablet 40 mg PO DAILY 30 Days Qty: 0 0RF pantoprazole [Protonix] 40 mg tablet,delayed release (DR/EC) 40 mg PO BID 30 Days Qty: 60 0RF Continued isosorbide mononitrate 30 MG tablet extended release 24 hr 15 mg PO DAILY trazodone 50 mg tablet 50 mg PO QHS gabapentin 400 mg capsule 400 mg PO BID simvastatin 40 mg tablet 40 mg PO DAILY ezetimibe 10 mg tablet 10 mg PO DAILY metoprolol succinate 50 mg Tablet Extended Release 24 Hr 50 mg PO DAILY Qty: 30 0RF Eliquis 5 mg tablet 5 mg PO BID Qty: 60 0RF tamsulosin 0.4 mg capsule 0.4 mg PO Q24H metformin 500 mg tablet extended release 24 hr 500 mg PO DAILY acetaminophen 500 mg capsule 1,000 mg PO Q8H PRN PRN (Reason: fever or pain) acetaminophen 650 mg suppository 650 mg ID Q4H PRN (Reason: fever or pain) amiodarone 200 mg tablet 200 mg PO DAILY MAG-AL 200-200 mg/5 mL suspension 30 ml PO Q4H PRN (Reason: dyspepsia) ascorbic acid (vitamin C) 500 mg capsule 500 mg PO BID bisacodyl 10 mg suppository 10 mg ID DAILY PRN (Reason: constipation) docusate sodium 100 mg capsule 100 mg PO DAILY ferrous sulfate [FeroSul] 325 mg (65 mg iron) tablet 325 mg PO DAILY Fleet Enema 19-7 gram/118 mL enema 118 ml ID DAILY PRN (Reason: constipation) guaifenesin [Adult Tussin Chest Congestion] 100 mg/5 mL liquid 200 mg PO Q4H PRN (Reason: congestion) hydroxyzine HCl 25 mg tablet 25 mg PO TID PRN (Reason: anxiety) magnesium hydroxide [Milk of Magnesia] 400 mg/5 mL suspension 30 ml PO DAILY PRN (Reason: constipation) polyethylene glycol 3350 [ClearLax] 17 gram/dose powder 17 g PO DAILY ondansetron 4 mg tablet,disintegrating 4 mg PO Q6H PRN (Reason: nausea and vomiting) Discontinued clopidogrel 75 MG tablet 75 mg PO DAILY pantoprazole 20 mg tablet,delayed release (DR/EC) 20 mg PO BID amiodarone 400 mg tablet 400 mg PO DAILY Rx Instructions: UNTIL 11/12/24 furosemide 20 mg tablet 20 mg PO DAILY Glucagon Emergency Kit (human) 1 mg recon soln 1 mg IM Q20M PRN (Reason: hypoglycemia) Rx Instructions: until target blood sugar attained Referrals / Follow Up: Valery Quinteros, [employer] [Primary Care Provider] - Disposition Disposition (needs filled in before D/C Order can be placed): Alf Facility 11/10/24 1122 Cosigner Signature (if applicable): CC: [employer] Valery Quinteros; Dr. Andrey Mitchell, DO; Dr. Ju Fragoso MD~ [facility]03-20-2025 [facility]03-19-2025 Progress note Author Ju Fragoso [facility] Note Date/Time November 09, 2024 4:1 6pm [facility] Medical Records Department [address] [place] [address] Progress Note 11/09/24 1152 MR#: [id number] Acct: [id number] Name: ANGIE DUTTON Rep #:[id number] : 1940 84 From: Ju Fragoso MD PCP: PANCHITO Harris Status:ADM IN Location: [place] [address] Subjective Subjective Patient seen and examined. He had no active complaints. Review of systems is otherwise negative. He had EGD yesterday which showed 3 bleeding angiodysplasticlesions which were treated with a heater probe. Review of systems is otherwise negative. Hb today is 7.3. Objective Data Objective Data Vital Signs: Vital Signs Temp Pulse Resp BP Pulse Ox O2 Del Method 98.7 F 75 14 106/44 L 94 Room Air 11/09/24 07:20 11/09/24 11:02 11/09/24 07:20 11/09/24 11:02 11/09/24 08:13 11/09/24 08:35 Oxygen Delivery Method Room Air Weight: 187 lb 13.341 oz Body Mass Index (BMI) 28.5 Intake & Output: Intake and Output for Last 24 Hours 11/07/24 11/08/24 11/09/24 23:59 23:59 23:59 Intake Total 0 / 0 160 / 160 Output Total 800 / 800 850 / 850 Balance -800 / -800 -690 / -690 Lab / Micro Data 11/09/24 04:44 11/09/24 04:44 Labs: Laboratory Results - last 24 hr 11/08/24 11:35: POC Glucose 91 11/08/24 16:12: POC Glucose 81 11/08/24 22:34: POC Glucose 99 11/09/24 04:44: WBC 3.8 L, RBC 2.58 L, Hgb 7.3 L, Hct 24.3 L, MCV 94.2 H, MCH 28.3, MCHC 30.0 L, RDW Std Deviation 55.3 H, RDW Coeff of Jaqueline 16.1 H, Plt Count 95 L, MPV 13.2 H, Immature Gran % (Auto) 0.500, Neut % (Auto) 60.4, Lymph % (Auto) 30.1, [place] % (Auto) 6.4, Eos % (Auto) 2.1, Baso % (Auto) 0.5, Absolute Neuts (auto) 2.3, Absolute Lymphs (auto) 1.13, Nucleated RBC % 0.8, Platelet Estimate MOD DEC, Sodium 139, Potassium 4.5, Chloride 106, Carbon Dioxide 23.9, Anion Gap 9, BUN 24 H, Creatinine 1.52 H, Estim Creat Clear Calc 37.07 L, Est GFR (MDRD) Non-Af 44 L, BUN/Creatinine Ratio 15.7, Glucose 102 H, Calcium 8.3 11/09/24 06:33: POC Glucose 111 H 11/09/24 11:28: POC Glucose 132 H Micro: Microbiology 11/07/24 15:12 Stool Stool Occult Blood (JOVANY) - Final Occult Blood Positive Radiography Diagnostic Testing: Radiology Impression Echocardiogram 11/07/24 18:52 Interpretation Summary Normal LV size. Left ventricular systolic function is normal. Mild (1+) eccentric mitral valve insufficiency. Bileaflet diffuse mitral valve thickening. Moderate concentric left ventricular hypertrophy. The left ventricular ejection fraction is 65 %. Stage 3 diastolic dysfunction. Ordering Physician: Andrey Mitchell Referring Physician: Andrey Mitchell Performed By: Leonidas Davis RCS Physical Exam Const alert, oriented x3, no apparent distress and average body habitus General Appearance: cooperative, comfortable and well developed HEENT normocephalic, head/scalp atraumatic, hearing grossly normal bilaterally, nasal mucous membranes and turbinates normal, moist oral mucous membranes and oropharynx normal Eyes PERRL, EOMs intact bilaterally and conjunctivae normal Neck full ROM, no lymphadenopathy and supple Lymph Lymphatic: no lymphadenopathy noted and no lymphedema noted Chest inspection of chest normal Resp normal respiratory effort, normal air movement, no use of accessory muscles and clear to auscultation bilaterally Resp Narrative: mildly diminished breath sounds bibasally, no wheezes or crackles. On room air. Cardio regular rate, regular rhythm, S1 normal heart sound, S2 normal heart sound, no murmurs and peripheral pulses 2+ throughout GI normal to inspection, nondistended, normoactive bowel sounds, soft to palpation and non-tender Back/Spine normal ROM Extremity normal capillary refill, no clubbing, cyanosis or edema and no calf tenderness Extremity Narrative: +3-4 lower extremity pitting edema noted up to the knees. General Extremity: no tenderness to palpation of joints or extremities Skin no rashes or lesions noted General Skin Exam: no breakdown Neuro CN's II-XII intact bilaterally, moves all extremities, no focal motor deficits and no sensory deficits noted Speech: speech normal Motor Exam: strength 5/5 throughout and general weakness Psych mental status grossly normal, thought process normal, cooperative and affect normal Appearance: appropriate Assessment & Plan Assessment/Plan (1) Acute heart failure with preserved ejection fraction (HFpEF): (2) Acute on chronic anemia: PLAN: Plan #Acute on chronic anemia due to GI bleed * stool for occult blood is positive. * s/p transfusion of 2 units of PRBCs. * hb today is 7.3. Will transfuse with one unit of PRBC. * start IV pantoprazole. * EGD showed normal esophagus and three bleeding angiodysplastic lesions in the stomach which were treated with a heater probe and nodular mucosa in the first portion of the duodenum which was biopsies. * gastroenterology on board. * #Pancytopenia: * WBCs 3.8 with hemoglobin of 7.3 and platelets of 95. * Will monitor closely. * Etiology is unclear but it may be due to the acute GI bleed also. * #Acute HFpEF * has known EF of 65% from echo done in September 2023, with mild LV hypertrophy, stage II diastolic dysfunction and mild pulmonary hypertension. * had 3-4+ edema and CXR with cardiomegaly and central venous prominence. * 2D echo ordered * on IV lasix bid. Will switch to PO lasix 40mg daily/ * #PEG: * Cr was 1.6 on admission. Cr down to 1.52 toay. Will continue monitoring. * Baseline Cr is ~ 1.3. Will monitor. #Debility due to recent right total hip replacement * had total hip replacement done at [facility] on 10/07/2024. * PT/OT on board. * #Paroxysmal afib * on metoprolol and amiodarone. Eliquis on hold due to GI bleed * #Type 2 diabetes mellitus: metformin held. ISS. Accuchecks ACHS #CAD s/p CABG: on imdur and ezetimibe as well as statin. Plavix on hold. #Hypertension: on metoprolol. 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 #GERD: on PPI DVT prophylaxis: SCDs. Charges/Coding Visit Charges Inpatient E&M: 71214 Subs Hosp L2 11/09/24 1616 <Electronically signed by Ju Fragoso MD> Ju Fragoso MD Cosigner Signature (if applicable): CC: ~ Signed [facility] Work Phone: 1(982) 193-573303-19-2025 Progress note [facility] Medical Records Department [address] [place] [address] Progress Note 11/09/24 1152 MR#: [id number] Acct: [id number] Name: ANGIE DUTTON Rep #:[id number] : 1940 84 From: Ju Fragoso MD PCP: Valery Quinteros, [employer] Status:ADM IN Location: [place] [address] Subjective Subjective Patient seen and examined. He had no active complaints. Review of systems is otherwise negative. Hehad EGD yesterday which showed 3 bleeding angiodysplasticlesions which were treated with a heater probe. Review of systems is otherwise negative. Hb today is 7.3. Objective Data Objective Data Vital Signs: Vital Signs Temp Pulse Resp BP Pulse Ox O2 Del Method 98.7 F 75 14 106/44 L 94 Room Air 11/09/24 07:20 11/09/24 11:02 11/09/24 07:20 11/09/24 11:02 11/09/24 08:13 11/09/24 08:35 Oxygen Delivery Method Room Air Weight: 187 lb 13.341 oz Body Mass Index (BMI) 28.5 Intake & Output: Intake and Output for Last 24 Hours 11/07/24 11/08/24 11/09/24 23:59 23:59 23:59 Intake Total 0 / 0 160 / 160 Output Total 800 / 800 850 / 850 Balance -800 / -800 -690 / -690 Lab / Micro Data 11/09/24 04:44 11/09/24 04:44 Labs: Laboratory Results - last 24 hr 11/08/24 11:35: POC Glucose 91 11/08/24 16:12: POC Glucose 81 11/08/24 22:34: POC Glucose 99 11/09/24 04:44: WBC 3.8 L, RBC 2.58 L, Hgb 7.3 L, Hct 24.3 L, MCV 94.2 H, MCH 28.3, MCHC 30.0 L, RDW Std Deviation 55.3 H, RDW Coeff of Jaqueline 16.1 H, Plt Count 95 L, MPV 13.2 H, Immature Gran % (Auto) 0.500, Neut % (Auto) 60.4, Lymph % (Auto) 30.1, [place] % (Auto) 6.4, Eos % (Auto) 2.1, Baso % (Auto) 0.5, Absolute Neuts (auto) 2.3, Absolute Lymphs (auto) 1.13, Nucleated RBC % 0.8, Platelet Estimate MOD DEC, Sodium 139, Potassium 4.5, Chloride 106, Carbon Dioxide 23.9, Anion Gap 9, BUN 24 H, Creatinine 1.52 H, Estim Creat Clear Calc 37.07 L, Est GFR (MDRD) Non-Af 44 L, BUN/Creatinine Ratio 15.7, Glucose 102 H, Calcium 8.3 11/09/24 06:33: POC Glucose 111 H 11/09/24 11:28: POC Glucose 132 H Micro: Microbiology 11/07/24 15:12 Stool Stool Occult Blood (JOVANY) - Final Occult Blood Positive Radiography Diagnostic Testing: Radiology Impression Echocardiogram 11/07/24 18:52 Interpretation Summary Normal LV size. Left ventricular systolic function is normal. Mild (1+) eccentric mitral valve insufficiency. Bileaflet diffuse mitral valve thickening. Moderate concentric left ventricular hypertrophy. The left ventricular ejection fraction is 65 %. Stage 3 diastolic dysfunction. Ordering Physician: Andrey Mitchell Referring Physician: Andrey Mitchell Performed By: Leonidas Davis RCS Physical Exam Const alert, oriented x3, no apparent distress and average body habitus General Appearance: cooperative, comfortable and well developed HEENT normocephalic, head/scalp atraumatic, hearing grossly normal bilaterally, nasal mucous membranes and turbinates normal, moist oral mucous membranes and oropharynx normal Eyes PERRL, EOMs intact bilaterally and conjunctivae normal Neck full ROM, no lymphadenopathy and supple Lymph Lymphatic: no lymphadenopathy noted and no lymphedema noted Chest inspection of chest normal Resp normal respiratory effort, normal air movement, no use of accessory muscles and clear to auscultation bilaterally Resp Narrative: mildly diminished breath sounds bibasally, no wheezes or crackles. On room air. Cardio regular rate, regular rhythm, S1 normal heart sound, S2 normal heart sound, no murmurs and peripheral pulses 2+ throughout GI normal to inspection, nondistended, normoactive bowel sounds, soft to palpation and non-tender Back/Spine normal ROM Extremity normal capillary refill, no clubbing, cyanosis or edema and no calf tenderness Extremity Narrative: +3-4 lower extremity pitting edema noted up to the knees. General Extremity: no tenderness to palpation of joints or extremities Skin no rashes or lesions noted General Skin Exam: no breakdown Neuro CN's II-XII intact bilaterally, moves all extremities, no focal motor deficits and no sensory deficits noted Speech: speech normal Motor Exam: strength 5/5 throughout and general weakness Psych mental status grossly normal, thought process normal, cooperative and affect normal Appearance: appropriate Assessment & Plan Assessment/Plan (1) Acute heart failure with preserved ejection fraction (HFpEF): (2) Acute on chronic anemia: PLAN: Plan #Acute on chronic anemia due to GI bleed * stool for occult blood is positive. * s/p transfusion of 2 units of PRBCs. * hb today is 7.3. Will transfuse with one unit of PRBC. * start IV pantoprazole. * EGD showed normal esophagus and three bleeding angiodysplastic lesions in the stomach which were treated with a heater probe and nodular mucosa in the first portion of the duodenum which was biopsies. * gastroenterology on board. * #Pancytopenia: * WBCs 3.8 with hemoglobin of 7.3 and platelets of 95. * Will monitor closely. * Etiology is unclear but it may be due to the acute GI bleed also. * #Acute HFpEF * has known EF of 65% from echo done in September 2023, with mild LV hypertrophy, stage II diastolicdysfunction and mild pulmonary hypertension. * had 3-4+ edema and CXR with cardiomegaly and central venous prominence. * 2D echo ordered * on IV lasix bid. Will switch to PO lasix 40mg daily/ * #PEG: * Cr was 1.6 on admission. Cr down to 1.52 toay. Will continue monitoring. * Baseline Cr is ~ 1.3. Will monitor. #Debility due to recent right total hip replacement * had total hip replacement done at [facility] on 10/07/2024. * PT/OT on board. * #Paroxysmal afib * on metoprolol and amiodarone. Eliquis on hold due to GI bleed * #Type 2 diabetes mellitus: metformin held. ISS. Accuchecks ACHS #CAD s/p CABG: on imdur and ezetimibe as well as statin. Plavix on hold. #Hypertension: on metoprolol. 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 #GERD: on PPI DVT prophylaxis: SCDs. Charges/Coding Visit Charges Inpatient E&M: 43210 Subs Hosp L2 11/09/24 1616 Ju Fragoso MD Cosigner Signature (if applicable): CC: ~ Signed [facility]03-18-2025 Consult note Author Kamaljit Schilling [facility] Note Date/Time November 08, 2024 6:4 7pm [facility] Medical Records Department [address] [place] [address] Anesthesia Postop Eval I 11/08/241841 MR#: [id number] Acct: [id number] Name: ANGIE DUTTON Rep #:[id number] : 1940 84 From: Kamaljit Schilling MD PCP: Valery Quinteros, [employer] Status:ADM IN Y Race: C Location: [place] [address] Kamaljit Schilling MD on 11/08/24 at 1846 Addendum Only 200 mL fluid given. 11/08/241846 <Electronically signed by Kamaljit Schilling MD> Date _ Kamaljit Schilling MD cc: ~* Signed Anesthesia: Postop Eval I Current Vital Signs Temperature: 98.2 F Pulse Rate: 64 Blood Pressure: 96/48 Respiratory Rate: 18 Pulse Ox: 91 Oxygen Delivery Method: Nasal Cannula (2 L ) Assessment Airway patent: Yes Spontaneous unlabored respirations: Yes Mental status: Awake nausea: No Vomiting: No Anesthesia Complication: No Fluid Hydration Crystalloid volume administer (ml): 500 Total IV fluid infused: 500 Progress Note Anesthesia document: Postop Eval 1 completed: Yes 11/08/241845 <Electronically signed by Kamaljit Schilling MD> Date _ Kamaljit Schilling MD Cosigner Signature: Date CC: ~ Signed [facility] Work Phone: 1(521) 819-945803-18-2025 Consult note Author Kamaljit Schilling [facility] Note Date/Time November 08, 2024 6:4 6pm [facility] Medical Records Department [facility] [place] [address] Anesthesia Postop Eval II 11/08/241845 MR#: [id number] Acct: [id number] Name: ANGIE DUTTON Rep #:[id number] : 1940 84 From: Kamaljit Schilling MD PCP: Valery Quinteros, [employer] Status:ADM IN Y Race: C Location: [place] [address] 1-1 Anesthesia Postop Eval I Sum Postop Eval Completion status Anesthesia document: Postop Eval 1 completed: Yes Anesthesia Postop Eval I Summary Anesthesia Postop Eval I Summary: Anesthesia Postop Eval I: Assessment Summary Airway patent Yes 11/08/24 18:46 Spontaneous unlabored Yes 11/08/24 18:46 respirations Mental status Awake 11/08/24 18:46 nausea No 11/08/24 18:46 Vomiting No 11/08/24 18:46 Anesthesia Postop Eval I: Fluid Summary Crystalloid volume administer 500 11/08/24 18:46 (ml) Colloids volume administered ( ml) Blood Product volume administered (ml) Total IV fluid infused 500 11/08/24 18:46 Anesthesia Postop Eval I: Summary Notes Anesthesia Complication No 11/08/24 18:46 Anesthesia Complication Comment: Post-operative progress note Anesthesia: Postop Eval II Evaluation Mental status: Awake Pain Level: 0 nausea: No Vomiting: No Complications Anesthesia Complication: No 11/08/241845 <Electronically signed by Kamaljit Schilling MD> Date _ Kamaljit Schilling MD Cosigner Signature: Date CC: ~ Signed [facility] Work Phone: [phone]) 510-682303-18-2025 Consult note Author Kamaljit Schilling [facility] Note Date/Time November 08, 2024 6:2 1pm [facility] Medical Records Department [address] [place] [address] Pre-Anesthesia Evaluation 11/08/241818 MR#: [id number] Acct: [id number] Name: ANGIE DUTTON Rep #:[id number] : 1940 84 From: Kamaljit Schilling MD PCP: Valery Quinteros, [employer] Status:ADM IN Y Race: C Location: [place] [address] 1-1 ASA Classification* ASA Classification ASA Classification: 3 Assessment & Plan Anesthesia* Anesthesia Assessment Anesthesia Assessment: Discussed sedation and/or anesthesia options, risks, benefits, and alternatives with patient/parents/legal guardian/POA. Questions invited. The patient/parents/legal guardian/POA seems to understand and agrees to proceedwith anesthesia plan. Reviewed the physical assessment, medical history, allergy history and patient home medications list prior to surgery/procedure/anesthetic and documented any changes. Performed airway and anesthesia risk assessments. Anesthesia Type Anesthesia Type: General History Source History Obtained from:: Patient and Chart Anesthesia Focused Assessment* Temperature: 98.1 F Pulse Rate: 65 Blood Pressure: 109/51 Respiratory Rate: 17 Pulse Ox: 96 Airway Assessment Mouth opens: >3 cm Mallampati Score: II Teeth Condition: Chipped/Broken (bad teeth many missing) and Missing Neck Range of motion (ROM): Full ROM Focused Labs Anesthesia Preop lab: CBC WBC 3.7 K/mm3 (4.4-11.0) L 11/08/24 06:27 11/08/24 RBC 2.54 M/mm3 (4.6-6.2) L 11/08/24 06:27 11/08/24 Hgb 7.2 g/dL (13.0-16.5) L 11/08/24 06:27 11/08/24 Hct 23.9 % (40-54) L 11/08/24 06:27 11/08/24 Plt Count 100 K/mm3 (150-450) L 11/08/24 06:27 11/08/24 CHEMISTRY Potassium 4.2 mmol/L (3.3-5.1) 11/08/24 06:27 11/08/24 Sodium 139 mmol/L (133-145) 11/08/24 06:27 11/08/24 Magnesium 2.3 mg/dL (1.5-2.2) H 11/07/24 06:00 11/07/24 BUN 22 mg/dL (4-19) H 11/08/24 06:27 11/08/24 Creatinine 1.56 mg/dL (0.70-1.20) H 11/08/24 06:27 Glucose 92 mg/dL (70-99) 11/08/24 06:27 11/08/24 POC Glucose 81 mg/dL (74-106) 11/08/24 16:12 11/08/24 TSH 0.76 uIU/mL (0.358-3.74) 09/25/23 05:30 COAG PT 13.5 SECONDS (11.7-14.9) 09/24/23 14:10 Pre-Assessment Diagnosis/Proposed Procedure Planned Operative Procedure(s): EGD Anesthesia History Anesthesia History - [employer]: Anesthesia History - [employer] Hx Hospitalization Any Problems With Anesthesia No 11/08/24 10:46 Cholinesterase deficiency No 11/08/24 10:46 You/Your Family Experience No 11/08/24 10:46 fever (hyperthermia) with Relationship Recent Exposure to Contagious No 11/08/24 10:46 Disease Does patient have nerve No 11/08/24 10:46 stimulator Patient instructed to have device shut off --Does patient have Pacemaker No 11/08/24 16:08 or ICD? When Was Last Pacemaker Check QUESTION #4 FULL TEXT: You/Your Family Experience fever (hyperthermia) with Anesthesia Last Oral Intake Last Oral intake: Last Oral Intake NPO since 00:00 11/08/24 16:08 Meds taken in AM with sips of Yes 11/08/24 16:08 water? 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 Has anyone observed you stop No 11/07/24 17:44 breathing during sleep? STOP Results Negative 11/07/24 17:44 QUESTION #5 FULL TEXT : Do you snore loudly (louder than talking or can be heard through closed doors)? 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 Specify any problems Hx of Preganancy in last 3 N/A 11/07/24 17:44 Months Nurse Filling Out Transfusion ENMA 11/07/24 17:44 & Questions: Date: 11/07/24 11/07/24 17:44 Time: 17:59 11/07/24 17:44 Patient unable to answer at this time (ie. 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 [employer] Hx Now No 11/08/24 10:46 Gestational Age (in weeks): EDC: Hx Hx Para Hx Section SAB No 11/08/24 10:46 Active Medications Active Medications: Current Medications Generic Name Dose Route Start Last Admin Trade Name Freq PRN Reason Stop Dose Admin Acetaminophen 650 mg 11/07/24 17:34 Acetaminophen 325 Mg Tablet PO Q6H PRN PRN Pain 1-10 Or Fever>100.7 Amiodarone HCl 200 mg 11/08/24 10:00 11/08/24 10:41 Amiodarone 200 Mg Tablet PO Not Given DAILY NICHOLAS Ascorbic Acid 500 mg 11/08/24 10:00 11/08/24 10:42 Ascorbic Acid 500 Mg Tablet PO Not Given DAILY [facility] Atorvastatin Calcium 20 mg 11/07/24 22:00 11/07/24 22:17 Atorvastatin Calcium 20 Mg Tablet PO 20 mg QHS [facility] Administration Bisacodyl 10 mg 11/07/24 17:34 Bisacodyl 10 Mg Suppository RC DAILY PRN constipation Ezetimibe 10 mg 11/08/24 10:00 11/08/24 15:58 Ezetimibe 10 Mg Tablet PO Not Given DAILY [facility] Furosemide 40 mg 11/08/24 10:00 Furosemide 40 Mg/4 Ml Vial IV DAILY [facility] Protocol Gabapentin 400 mg 11/07/24 22:00 11/08/24 10:42 Gabapentin 400 Mg Capsule PO Not Given BID NICH[facility]AS Glucagon 1 mg 11/07/24 18:54 Glucagon 1 Mg/Ml Syringe IM X1 PRN Hypoglycemia Protocol Hydroxyzine Pamoate 25 mg 11/07/24 17:34 Hydroxyzine Hyacinth 25 Mg Capsule PO TID PRN anxiety Dextrose 250 mls @ 0 mls/hr 11/07/24 18:54 Dextrose 10%-Water IV .Q0M PRN HYPOGLYCEMIA Protocol As Directed Pantoprazole Sodium 40 mg/ 110 mls @ 330 mls/hr 11/08/24 22:00 Sodium Chloride IV Q12 [facility] Insulin Human Lispro 0 unit 11/07/24 22:00 11/08/24 16:14 Insulin Lispro 100 Unit/Ml Insuln.Pen SC Not Given ACHS [facility] Protocol Isosorbide Mononitrate 15 mg 11/08/24 10:00 11/08/24 10:41 Isosorbide Mononitrate 30 Mg Tablet PO Not Given DAILY [facility] Protocol Melatonin 3 mg 11/07/24 17:34 Melatonin 3 Mg Tablet PO QHS PRN PRN INSOMNIA Metoprolol Succinate 50 mg 11/08/24 10:00 11/08/24 10:42 Metoprolol(Xl)Succ 50 Mg Tablet PO Not Given DAILY [facility] Protocol Ondansetron HCl 4 mg 11/07/24 17:34 Ondansetron 4 Mg/2 Ml Vial IV Q8H PRN PRN NAUSEA/VOMITING Sodium Chloride 10 - 40 ml 11/07/24 18:15 11/08/24 16:16 0.9% Saline Lock 10 Ml Syringe IV 10 ml UD PRN Administration SALINE FLUSH Tamsulosin HCl 0.4 mg 11/08/24 10:00 11/08/24 16:57 Tamsulosin Hcl 0.4 Mg Capsule PO Not Given DAILY [facility] Trazodone HCl 50 mg 11/07/24 17:34 Trazodone 50 Mg Tablet PO QHS PRN sleep PFSH Medical History Kidney disease GERD (gastroesophageal reflux disease) Former tobacco use HLD (hyperlipidemia) CAD (coronary artery disease) History of chronic hypertension Right leg weakness Myocardial infarct Hypertension Vertigo Home Medications ?Medication ?Instructions ?Recorded ?Last Taken ?Type clopidogrel 75 mg tablet 75 mg PO DAILY anti platelet 08/23/19 06/25/21 History isosorbide mononitrate 30 mg 15 mg PO DAILY HEART 07/2606/25/21 History tablet,extended release 24 hr gabapentin 400 mg capsule 400 mg PO BID NERVE PAIN 10/1406/25/21 History pantoprazole 20 mg tablet,delayed 20 mg PO BID GERD 06/25/21 History release simvastatin 40 mg tablet 40 mg PO DAILY CHOLESTEROL 1 08/25/20 06/24/21 History trazodone 50 mg tablet 50 mg PO QHS SLEEP 06/25/21 06/24/21 History ezetimibe 10 mg tablet 10 mg PO DAILY 09/24/23 Unkn own History apixaban 5 mg tablet (Eliquis) 5 mg PO BID #60 tabs Unknown Rx metoprolol succinate 50 mg 50 mg PO DAILY #30 tabs 11/14 Unknown Rx tablet,extended release 24 hr acetaminophen 500 mg capsule 1,000 mg PO Q8H PRN PRN f ever or 11/07/24 Unknown History pain acetaminophen 650 mg rectal 650 mg ID Q4H PRN fever or pain 11/07/24 Unknown History suppository aluminum-magnesium hydroxide 200 30 ml PO Q4H PRN dysp epsia 11/07/24 Unknown History mg-200 mg/5 mL oral suspension (MAG-AL) amiodarone 200 mg tablet 200 mg PO DAILY 11/07/24 Unk nown History amiodarone 400 mg tablet 400 mg PO DAILY 11/07/24 Unk nown History ascorbic acid (vitamin C) 500 mg 500 mg PO BID SUPPLEM ENT 11/07/24 Unknown Hist ory capsule bisacodyl 10 mg rectal suppository 10 mg ID DAILY PRN constipation 11/07/24 Unknown History docusate sodium 100 mg capsule 100 mg PO DAILY 5 Unknown History ferrous sulfate 325 mg (65 mg 325 mg PO DAILY 11/07/24 Unknown History iron) tablet (FeroSul) furosemide 20 mg tablet 20 mg PO DAILY 11/07/24 Unkn own History glucagon 1 mg solution for 1 mg IM Q20M PRN hypoglycem ia 11/07/24 Unknown History injection (Glucagon Emergency Kit) guaifenesin 100 mg/5 mL oral 200 mg PO Q4H PRN congest ion 11/07/24 Unknown History liquid (Adult Tussin Chest Congestion) hydroxyzine HCl 25 mg tablet 25 mg PO TID PRN anxiety 11/07/24 Unknown History magnesium hydroxide 400 mg/5 mL 30 ml PO DAILY PRN con stipation 11/07/24 Unknown History oral suspension (Milk of Magnesia) metformin 500 mg tablet,extended 500 mg PO DAILY 11/07 Unknown History release 24 hr ondansetron 4 mg disintegrating 4 mg PO Q6H PRN nausea and vomiting 11/07/24 Unknown History tablet polyethylene glycol 3350 17 17 g PO DAILY 11/07/24 Unk nown History gram/dose oral powder (ClearLax) sodium phosphates 19 gram-7 118 ml ID DAILY PRN consti pation 11/07/24 Unknown History gram/118 mL enema (Fleet Enema) tamsulosin 0.4 mg capsule 0.4 mg PO Q24H 11/07/24 Unkn own History Allergy/AdvReac Type Severity Reaction Status Date / Time Sulfa (Sulfonamide Allergy Unknown Verified 03/25/24 10:25 Antibiotics) Family History Mother Heart disease Father Heart disease Surgical History Status post arthroscopic knee surgery S/P bilateral foot surgery S/p bilateral carpal tunnel release S/P tonsillectomy and adenoidectomy S/P bilateral cataract extraction S/P CABG x 3 Stented coronary artery H/O right heart catheterization Social History household members: spouse Smoking Status: Former smoker how long ago did patient quit smoking: Quit when he was 44 y/o, 1/2 ppd since 10 years old. alcohol intake: never substance use type: does not use Review of Systems (Anesthesia) ROS Narrative System reviewed and no additional complaints, except as documented. Physical Exam Const alert, oriented x3 and average body habitus Resp normal respiratory effort, normal air movement and clear to auscultation bilaterally Cardio regular rate, regular rhythm, no murmurs and diaphoretic 11/08/24 1821 <Electronically signed by Kamaljit Schilling MD> Date _ Kamaljit Schilling MD Cosigner Signature: Date CC: ~ Signed [facility] Work Phone: 1(681) 910-743003-18-2025 Progress note Author Slade Friend [facility] Note Date/Time November 08, 2024 6:1 4pm [facility] Medical Records Department [address] [place] [address] Progress Note 11/08/241812 MR#: [id number] Acct: [id number] Name: ANGIE DUTTON Rep #:[id number] : 1940 84 From: Slade Florez DO PCP: Valery Quinteros, [employer] Status:ADM IN Location: [place] [address]- 1 Progress Note Patient has been n.p.o. for EGD today regarding upper GI bleed and persistent anemia. Physical Exam Const alert, oriented x3 and no apparent distress General Appearance: cooperative and well developed HEENT normocephalic, head/scalp atraumatic, moist oral mucous membranes and oropharynxnormal Eyes PERRL and EOMs intact bilaterally Neck no lymphadenopathy and supple Lymph Lymphatic: no lymphadenopathy noted and no lymphedema noted Resp Resp Narrative: mildly diminished breath sounds bibasally, no wheezes or crackles. On room air. Cardio regular rate, regular rhythm, S1 normal heart sound and S2 normal heart sound GI normal to inspection, nondistended, normoactive bowel sounds, soft to palpation,non-tender and non-distended Extremity normal capillary refill, no clubbing, cyanosis or edema and no calf tenderness General Extremity: no tenderness to palpation of joints or extremities Skin General Skin Exam: no breakdown Neuro CN's II-XII intact bilaterally, no focal motor deficits and no sensory deficits noted Motor Exam: strength 5/5 throughout and general weakness Psych thought process normal, cooperative and affect normal Appearance: appropriate Assessment & Plan Assessment/Plan (1) Acute on chronic anemia: (2) GI bleed: (3) Acute heart failure with preserved ejection fraction (HFpEF): PLAN: Plan Patient is an 84-year-old male who presented to [facility] ED on11/07/2024 with acute on chronic anemia and concern for GI bleed. Acute on chronic anemia with concern for GI bleed ? In the setting thrombocytopenia possibley secondary to cirrhosis, B12 deficiency, Atrophic grastrititis with acute blood loss anemia possibly secondary to peptic ulcer disease. He will need to undergo egd today. Visit Charges Inpatient E&M: 97623 Subs Hosp L2 11/08/244 <Electronically signed by Slade Florez DO> Slade Florez DO Cosigner Signature (if applicable): CC: ~ Signed [facility] Work Phone: 1(546) 894-269803-18-2025 Consult note [facility] Medical Records Department [address] [place] [address] Anesthesia Postop Eval I 11/08/241841 MR#: [id number] Acct: [id number] Name: ANGIE DUTTON Rep #:[id number] : 1940 84 From: Kamaljit Schilling MD PCP: Valery Quinteros, [employer] Status:ADM IN Y Race: C Location: [place] [address] 08-[address] Kamaljit Schilling MD on 11/08/24 at 1847 Addendum Only 200 mL fluid given. 11/08/241846 MD> Date _ Kamaljit Schilling MD cc: ~* Signed Anesthesia: Postop Eval I Current Vital Signs Temperature: 98.2 F Pulse Rate: 64 Blood Pressure: 96/48 Respiratory Rate: 18 Pulse Ox: 91 Oxygen Delivery Method: Nasal Cannula (2 L ) Assessment Airway patent: Yes Spontaneous unlabored respirations: Yes Mental status: Awake nausea: No Vomiting: No Anesthesia Complication: No Fluid Hydration Crystalloid volume administer (ml): 500 Total IV fluid infused: 500 Progress Note Anesthesia document: Postop Eval 1 completed: Yes 11/08/241845 > Date _ Kamaljit Schilling MD Cosigner Signature: Date CC: ~ Signed [facility]03-18-2025 Consult note [facility] Medical Records Department [address] [place] [address] [place] [address] Anesthesia Postop Eval II 11/08/241845 MR#: [id number] Acct: [id number] Name: ANGIE DUTTON Rep #:[id number] : 1940 84 From: Kamaljit Schilling MD PCP: Valery Quinteros, [employer] Status:ADM IN Y Race: C Location: [place] [address] 1-1 Anesthesia Postop Eval I Sum Postop Eval Completion status Anesthesia document: Postop Eval 1 completed: Yes Anesthesia Postop Eval I Summary Anesthesia Postop Eval I Summary: Anesthesia Postop Eval I: Assessment Summary Airway patent Yes 11/08/24 18:46 Spontaneous unlabored Yes 11/08/24 18:46 respirations Mental status Awake 11/08/24 18:46 nausea No 11/08/24 18:46 Vomiting No 11/08/24 18:46 Anesthesia Postop Eval I: Fluid Summary Crystalloid volume administer 500 11/08/24 18:46 (ml) Colloids volume administered ( ml) Blood Product volume administered (ml) Total IV fluid infused 500 11/08/24 18:46 Anesthesia Postop Eval I: Summary Notes Anesthesia Complication No 11/08/24 18:46 Anesthesia Complication Comment: Post-operative progress note Anesthesia: Postop Eval II Evaluation Mental status: Awake Pain Level: 0 nausea: No Vomiting: No Complications Anesthesia Complication: No 11/08/24 1846 > Date _ Kamaljit Schilling MD Cosigner Signature: Date CC: ~ Signed [facility]03-18-2025 Procedure note [facility] Medical Records Department [address] [place] [address] EGD Report MR#: [id number] Acct: [id number] Name: JIMMIE DUTTONSONU Saucedo Rep #:[id number] : 1940 84 From: Slade Friend DO PCP: Valery Quinteros, [employer] Status:ADM IN Patient Name: Angie Dutton Procedure Date: 11/08/2024 6:19 PM Date of : 1940 Age: 84 Procedure: Upper GI endoscopy Indications: Acute post hemorrhagic anemia, Melena Providers: Slade Florez DO Referring MD: Andrey Mitchell Do Medicines: Monitored Anesthesia Care Patient Profile: This is an 84 year old male. Refer to note in patient chart for documentation of history and physical. Patient has symptoms. Complications: No immediate complications. Procedure: Pre-Anesthesia Assessment: - Prior to the procedure, a History and Physical was performed, and patient medications and allergies were reviewed. The patient is competent. The risks and benefits of the procedure and the sedation options and risks were discussed with the patient. All questions were answered and informed consent was obtained. Patient identification and proposed procedure were verified by the physician in the pre-procedure area. Mental Status Examination: alert and oriented. Respiratory Examination: clear to auscultation. CV Examination: normal. Prophylactic Antibiotics: The patient does not require prophylactic antibiotics. Prior Anticoagulants: The patient has taken no anticoagulant or antiplatelet agents. ASA Grade Assessment: III - A patient with severe systemic disease. After reviewing the risks and benefits, the patient was deemed in satisfactory condition to undergo the procedure. The anesthesia plan was to use monitored anesthesia care (MAC). Immediately prior to administration of medications, the patient was re-assessed for adequacy to receive sedatives. The heart rate, respiratory rate, oxygen saturations, blood pressure, adequacy of pulmonary ventilation, and response to care were monitored throughout the procedure. The physical status of the patient was re-assessed after the procedure. After obtaining informed consent, the endoscope was passed under direct vision. Throughout the procedure, the patient's blood pressure, pulse, and oxygen saturations were monitored continuously. The gastroscope was introduced through the mouth, and advanced to the fourth part of the duodenum. Small bowel enteroscopy was deemed necessary. The upper GI endoscopy was accomplished without difficulty. The patient tolerated the procedure well. Scope In: 6:30:24 PM Scope Out: 6:34:09 PM Total Procedure Duration Time 0 hours 3 minutes 45 seconds Findings: The examined esophagus was normal. Three 5 mm angiodysplastic lesions with bleeding were found on the lesser curvature of the stomach. Coagulation for hemostasis using heater probe was successful. Estimated blood loss was minimal. Localized nodular mucosa was found in the first portion of the duodenum. Biopsies were taken with a cold forceps for histology. Verification of patient identification for the specimen was done. Estimated blood loss was minimal. Impression: - Normal esophagus. - Three bleeding angiodysplastic lesions in the stomach. Treated with a heater probe. - Nodular mucosa in the first portion of the duodenum. Biopsied. Recommendation: - Return patient to [facility] for ongoing care. - Resume regular diet. - Continue present medications. - Await pathology results. Procedure Code(s): --- Professional --- 15246, 59, Small intestinal endoscopy, enteroscopy beyond second portion of duodenum, not including ileum; with control of bleeding (eg, injection, bipolar cautery, unipolar cautery, laser, heater probe, stapler, plasma landmen) 09893, 51, Small intestinal endoscopy, enteroscopy beyond second portion of duodenum, not including ileum; with biopsy, single or multiple CPT copyright 2021 [employer]. All rights reserved. The codes documented in this report are preliminary and upon women's basketball coach review may be revised to meet current compliance requirements. Slade Florez DO 11/08/2024 6:39:12 PM This report has been signed electronically. Number of Addenda: 0 Note Initiated On: 11/08/2024 6:19 PM 11/08/241838 Date _ Slade Florez DO Cosigner Signature: Date (if indicated) CC: PANCHITO Quinteros; Slade lForez DO ~ Date Dictated: 11/08/241818 Date Transcribed: Health Plan Advisor: REAGAN Signed [facility]03-18-2025 Procedure note [facility] Medical Records Department [address] [place] [address] Operative Report - CC Letter MR#: [id number] Acct: [id number] Name: ANGIE DUTTON Rep #:[id number] : 1940 84 From: Slade Florez DO PCP: PANCHITO Harris Status:ADM IN 11/08/2024 Panchito Harris Re : Upper GI endoscopy procedure for Angie Coleman Neli This procedure was performed on Friday, November 08, 2024. My impressions and recommendations are as follows: Impressions : - Normal esophagus. - Three bleeding angiodysplastic lesions in the stomach. Treated with a heater probe. - Nodular mucosa in the first portion of the duodenum. Biopsied. Recommendations : - Return patient to [facility] for ongoing care. - Resume regular diet. - Continue present medications. - Await pathology results. My findings are described in the full procedure note, which is enclosed. If I can be of further assistance, please feel free to contact me at . Sincerely, Slade Florez DO 11/08/2024 6:39:12 PM This report has been signed electronically. 11/08/241838 Date _ Slade Florez DO Cosigner Signature: Date (if indicated) CC: PANCHITO Quinteros; Dr. Andrey Mitchell DO; Dr. Ju Fragoso MD~ Date Dictated: 11/08/241818 Date Transcribed: Health Plan Advisor: RF Signed [facility]03-18-2025 Consult note [facility] Medical Records Department [address] [place] [address] Pre-Anesthesia Evaluation 11/08/241818 MR#: [id number] Acct: [id number] Name: ANGIE DUTTON Rep #:[id number] : 1940 84 From: Kamaljit Schilling MD PCP: PANCHITO Harris Status:ADM IN Y Race: C Location: [place] [address] 1-1 ASA Classification* ASA Classification ASA Classification: 3 Assessment & Plan Anesthesia* Anesthesia Assessment Anesthesia Assessment: Discussed sedation and/or anesthesia options, risks, benefits, and alternatives with patient/parents/legal guardian/POA. Questions invited. The patient/parents/legal guardian/POA seems to understand and agrees to proceedwith anesthesia plan. Reviewed the physical assessment, medical history, allergy history and patient home medications list prior to surgery/procedure/anesthetic and documented any changes. Performed airway and anesthesia risk assessments. Anesthesia Type Anesthesia Type: General History Source History Obtained from:: Patient and Chart Anesthesia Focused Assessment* Temperature: 98.1 F Pulse Rate: 65 Blood Pressure: 109/51 Respiratory Rate: 17 Pulse Ox: 96 Airway Assessment Mouth opens: >3 cm Mallampati Score: II Teeth Condition: Chipped/Broken (bad teeth many missing) and Missing Neck Range of motion (ROM): Full ROM Focused Labs Anesthesia Preop lab: CBC WBC 3.7 K/mm3 (4.4-11.0) L 11/08/24 06:11/08/24 RBC 2.54 M/mm3 (4.6-6.2) L 11/08/24 06:27 11/08/24 Hgb 7.2 g/dL (13.0-16.5) L 11/08/24 06:11/08/24 Hct 23.9 % (40-54) L 11/08/24 06:27 11/08/24 Plt Count 100 K/mm3 (150-450) L 11/08/24 06:27 11/08/24 CHEMISTRY Potassium 4.2 mmol/L (3.3-5.1) 11/08/24 06:27 11/08/24 Sodium 139 mmol/L (133-145) 11/08/24 06:27 11/08/24 Magnesium 2.3 mg/dL (1.5-2.2) H 11/07/24 06:00 11/07/24 BUN 22 mg/dL (4-19) H 11/08/24 06:11/08/24 Creatinine 1.56 mg/dL (0.70-1.20) H 11/08/24 06:27 Glucose 92 mg/dL (70-99) 11/08/24 06:27 11/08/24 POC Glucose 81 mg/dL (74-106) 11/08/24 16:12 11/08/24 TSH 0.76 uIU/mL (0.358-3.74) 09/25/23 05:30 COAG PT 13.5 SECONDS (11.7-14.9) 09/24/23 14:10 Pre-Assessment Diagnosis/Proposed Procedure Planned Operative Procedure(s): EGD Anesthesia History Anesthesia History - [employer]: Anesthesia History - [employer] Hx Hospitalization Any Problems With Anesthesia No 11/08/24 10:46 Cholinesterase deficiency No 11/08/24 10:46 You/Your Family Experience No 11/08/24 10:46 fever (hyperthermia) with Relationship Recent Exposure to Contagious No 11/08/24 10:46 Disease Does patient have nerve No 11/08/24 10:46 stimulator Patient instructed to have device shut off --Does patient have Pacemaker No 11/08/24 16:08 or ICD? When Was Last Pacemaker Check QUESTION #4 FULL TEXT: You/Your Family Experience fever (hyperthermia) with Anesthesia Last Oral Intake Last Oral intake: Last Oral Intake NPO since 00:00 11/08/24 16:08 Meds taken in AM with sips of Yes 11/08/24 16:08 water? 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 Has anyone observed you stop No 11/07/24 17:44 breathing during sleep? STOP Results Negative 11/07/24 17:44 QUESTION #5 FULL TEXT : Do you snore loudly (louder than talking or can be heard through closeddoors)? 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 Specify any problems Hx of Preganancy in last 3 N/A 11/07/24 17:44 Months Nurse Filling Out Transfusion [facility] 11/07/24 17:44 & Questions: Date: 11/07/24 11/07/24 17:44 Time: 17:59 11/07/24 17:44 Patient unable to answer at this time (ie. 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 [employer] Hx Now No 11/08/24 10:46 Gestational Age (in weeks): EDC: Hx Hx Para Hx Section SAB No 11/08/24 10:46 Active Medications Active Medications: Current Medications Generic Name Dose Route Start Last Admin Trade Name Freq PRN Reason Stop Dose Admin Acetaminophen 650 mg 11/07/24 17:34 Acetaminophen 325 Mg Tablet PO Q6H PRN PRN Pain 1-10 Or Fever>100.7 Amiodarone HCl 200 mg 11/08/24 10:00 11/08/24 10:41 Amiodarone 200 Mg Tablet PO Not Given DAILY [facility] Ascorbic Acid 500 mg 11/08/24 10:00 11/08/24 10:42 Ascorbic Acid 500 Mg Tablet PO Not Given DAILY [facility] Atorvastatin Calcium 20 mg 11/07/24 22:00 11/07/24 22:17 Atorvastatin Calcium 20 Mg Tablet PO 20 mg QHS [facility] Administration Bisacodyl 10 mg 11/07/24 17:34 Bisacodyl 10 Mg Suppository RC DAILY PRN constipation Ezetimibe 10 mg 11/08/24 10:00 11/08/24 15:58 Ezetimibe 10 Mg Tablet PO Not Given DAILY [facility] Furosemide 40 mg 11/08/24 10:00 Furosemide 40 Mg/4 Ml Vial IV DAILY [facility] Protocol Gabapentin 400 mg 11/07/24 22:00 11/08/24 10:42 Gabapentin 400 Mg Capsule PO Not Given BID [facility] Glucagon 1 mg 11/07/24 18:54 Glucagon 1 Mg/Ml Syringe IM X1 PRN Hypoglycemia Protocol Hydroxyzine Pamoate 25 mg 11/07/24 17:34 Hydroxyzine Hyacinth 25 Mg Capsule PO TID PRN anxiety Dextrose 250 mls @ 0 mls/hr 11/07/24 18:54 Dextrose 10%-Water IV .Q0M PRN HYPOGLYCEMIA Protocol As Directed Pantoprazole Sodium 40 mg/ 110 mls @ 330 mls/hr 11/08/24 22:00 Sodium Chloride IV Q12 [facility] Insulin Human Lispro 0 unit 11/07/24 22:00 11/08/24 16:14 Insulin Lispro 100 Unit/Ml Insuln.Pen SC Not Given ACHS [facility] Protocol Isosorbide Mononitrate 15 mg 11/08/24 10:00 11/08/24 10:41 Isosorbide Mononitrate 30 Mg Tablet PO Not Given DAILY [facility] Protocol Melatonin 3 mg 11/07/24 17:34 Melatonin 3 Mg Tablet PO QHS PRN PRN INSOMNIA Metoprolol Succinate 50 mg 11/08/24 10:00 11/08/24 10:42 Metoprolol(Xl)Succ 50 Mg Tablet PO Not Given DAILY [facility] Protocol Ondansetron HCl 4 mg 11/07/24 17:34 Ondansetron 4 Mg/2 Ml Vial IV Q8H PRN PRN NAUSEA/VOMITING Sodium Chloride 10 - 40 ml 11/07/24 18:15 11/08/24 16:16 0.9% Saline Lock 10 Ml Syringe IV 10 ml UD PRN Administration SALINE FLUSH Tamsulosin HCl 0.4 mg 11/08/24 10:00 11/08/24 16:57 Tamsulosin Hcl 0.4 Mg Capsule PO Not Given DAILY NICHOLAS Trazodone HCl 50 mg 11/07/24 17:34 Trazodone 50 Mg Tablet PO QHS PRN sleep PFSH Medical History Kidney disease GERD (gastroesophageal reflux disease) Former tobacco use HLD (hyperlipidemia) CAD (coronary artery disease) History of chronic hypertension Right leg weakness Myocardial infarct Hypertension Vertigo Home Medications ?Medication ?Instructions ?Recorded ?Last Taken ?Type clopidogrel 75 mg tablet 75 mg PO DAILY anti platelet 08/23/19 06/25/21 History isosorbide mononitrate 30 mg 15 mg PO DAILY HEART 07/2606/25/21 History tablet,extended release 24 hr gabapentin 400 mg capsule 400 mg PO BID NERVE PAIN 10/1406/25/21 History pantoprazole 20 mg tablet,delayed 20 mg PO BID GERD 06/25/21 History release simvastatin 40 mg tablet 40 mg PO DAILY CHOLESTEROL 1 08/25/20 06/24/21 History trazodone 50 mg tablet 50 mg PO QHS SLEEP 06/25/21 06/24/21 History ezetimibe 10 mg tablet 10 mg PO DAILY 09/24/23 Unkn own History apixaban 5 mg tablet (Eliquis) 5 mg PO BID #60 tabs Unknown Rx metoprolol succinate 50 mg 50 mg PO DAILY #30 tabs 11/14 Unknown Rx tablet,extended release 24 hr acetaminophen 500 mg capsule 1,000 mg PO Q8H PRN PRN f ever or 11/07/24 Unknown History pain acetaminophen 650 mg rectal 650 mg ID Q4H PRN fever or pain 11/07/24 Unknown History suppository aluminum-magnesium hydroxide 200 30 ml PO Q4H PRN dysp epsia 11/07/24 Unknown History mg-200 mg/5 mL oral suspension (MAG-AL) amiodarone 200 mg tablet 200 mg PO DAILY 11/07/24 Unk nown History amiodarone 400 mg tablet 400 mg PO DAILY 11/07/24 Unk nown History ascorbic acid (vitamin C) 500 mg 500 mg PO BID SUPPLEM ENT 11/07/24 Unknown Hist ory capsule bisacodyl 10 mg rectal suppository 10 mg ID DAILY PRN constipation 11/07/24 Unknown History docusate sodium 100 mg capsule 100 mg PO DAILY 5 Unknown History ferrous sulfate 325 mg (65 mg 325 mg PO DAILY 11/07/24 Unknown History iron) tablet (FeroSul) furosemide 20 mg tablet 20 mg PO DAILY 11/07/24 Unkn own History glucagon 1 mg solution for 1 mg IM Q20M PRN hypoglycem ia 11/07/24 Unknown History injection (Glucagon Emergency Kit) guaifenesin 100 mg/5 mL oral 200 mg PO Q4H PRN congest ion 11/07/24 Unknown History liquid (Adult Tussin Chest Congestion) hydroxyzine HCl 25 mg tablet 25 mg PO TID PRN anxiety 11/07/24 Unknown History magnesium hydroxide 400 mg/5 mL 30 ml PO DAILY PRN con stipation 11/07/24 Unknown History oral suspension (Milk of Magnesia) metformin 500 mg tablet,extended 500 mg PO DAILY 11/07 Unknown History release 24 hr ondansetron 4 mg disintegrating 4 mg PO Q6H PRN nausea and vomiting 11/07/24 Unknown History tablet polyethylene glycol 3350 17 17 g PO DAILY 11/07/24 Unk nown History gram/dose oral powder (ClearLax) sodium phosphates 19 gram-7 118 ml ID DAILY PRN consti pation 11/07/24 Unknown History gram/118 mL enema (Fleet Enema) tamsulosin 0.4 mg capsule 0.4 mg PO Q24H 11/07/24 Unkn own History Allergy/AdvReac Type Severity Reaction Status Date / Time Sulfa (Sulfonamide Allergy Unknown Verified 03/25/24 10:25 Antibiotics) Family History Mother Heart disease Father Heart disease Surgical History Status post arthroscopic knee surgery S/P bilateral foot surgery S/p bilateral carpal tunnel release S/P tonsillectomy and adenoidectomy S/P bilateral cataract extraction S/P CABG x 3 Stented coronary artery H/O right heart catheterization Social History household members: spouse Smoking Status: Former smoker how long ago did patient quit smoking: Quit when he was 44 y/o, 1/2 ppd since 10 years old. alcohol intake: never substance use type: does not use Review of Systems (Anesthesia) ROS Narrative System reviewed and no additional complaints, except as documented. Physical Exam Const alert, oriented x3 and average body habitus Resp normal respiratory effort, normal air movement and clear to auscultation bilaterally Cardio regular rate, regular rhythm, no murmurs and diaphoretic 11/08/24 1821 MD> Date _ Kamaljit Schilling MD Cosigner Signature: Date CC: ~ Signed [facility]03-18-2025 Progress note [facility] Medical Records Department [address] [place] [address] Progress Note 11/08/24 1813 MR#: [id number] Acct: [id number] Name: ANGIE DUTTON Rep #:[id number] : 1940 84 From: Slade Florez DO PCP: Valery Quinteros, SLEEVE WHEEL MAKER Status:ADM IN Location: [place] [address] Progress Note Patient has been n.p.o. for EGD today regarding upper GI bleed and persistent anemia. Physical Exam Const alert, oriented x3 and no apparent distress General Appearance: cooperative and well developed HEENT normocephalic, head/scalp atraumatic, moist oral mucous membranes and oropharynxnormal Eyes PERRL and EOMs intact bilaterally Neck no lymphadenopathy and supple Lymph Lymphatic: no lymphadenopathy noted and no lymphedema noted Resp Resp Narrative: mildly diminished breath sounds bibasally, no wheezes or crackles. On room air. Cardio regular rate, regular rhythm, S1 normal heart sound and S2 normal heart sound GI normal to inspection, nondistended, normoactive bowel sounds, soft to palpation,non-tender and non-distended Extremity normal capillary refill, no clubbing, cyanosis or edema and no calf tenderness General Extremity: no tenderness to palpation of joints or extremities Skin General Skin Exam: no breakdown Neuro CN's II-XII intact bilaterally, no focal motor deficits and no sensory deficits noted Motor Exam: strength 5/5 throughout and general weakness Psych thought process normal, cooperative and affect normal Appearance: appropriate Assessment & Plan Assessment/Plan (1) Acute on chronic anemia: (2) GI bleed: (3) Acute heart failure with preserved ejection fraction (HFpEF): PLAN: Plan Patient is an 84-year-old male who presented to [facility] ED on11/07/2024 with acute on chronic anemia and concern for GI bleed. Acute on chronic anemia with concern for GI bleed ? In the setting thrombocytopenia possibley secondary to cirrhosis, B12 deficiency, Atrophic grastrititis with acute blood loss anemia possibly secondary to peptic ulcer disease. He will need to undergo egd today. Visit Charges Inpatient E&M: 30985 Subs Hosp L2 11/08/[address] [facility] Friend DO Cosigner Signature (if applicable): CC: ~ Signed [facility]03-18-2025 Progress note Author [facility] Note Date/Time November 08, 2024 3:5 8pm [facility] Medical Records Department [address] [place] [address] Progress Note 11/08/24 1220 MR#: [id number] Acct: [id number] Name: ANGIE DUTTON Rep #:[id number] : 1940 84 From: Ju Fragoso MD PCP: Valery Quinteros, SLEEVE WHEEL MAKER Status:ADM IN Location: [place] [address] Subjective Subjective Patient seen and examined. He had no active complaints. He denied having had anydark stools overnight. Review of systems is otherwise negative. He is on room air. He is due for EGD today. Objective Data Objective Data Vital Signs: Vital Signs Temp Pulse Resp BP Pulse Ox O2 Del Method 98.1 F 65 17 100/48 L 96 Room Air 11/08/24 10:32 11/08/24 10:32 11/08/24 10:32 11/08/24 10:32 11/08/24 10:32 11/08/24 10:32 Oxygen Delivery Method Room Air Weight: 187 lb 13.341 oz Body Mass Index (BMI) 28.4 Intake & Output: Intake and Output for Last 24 Hours 11/06/24 11/07/24 11/08/24 23:59 23:59 23:59 Intake Total 0 / 0 Output Total 800 / 800 500 / 500 Balance -800 / -800 -500 / -500 Lab / Micro Data 11/08/24 06:27 11/08/24 06:27 Labs: Laboratory Results - last 24 hr 11/07/24 13:40: WBC 5.2, RBC 2.54 L, Hgb 7.2 L, Hct 24.4 L, MCV 96.1 H, MCH 28.3, MCHC 29.5 L, RDW Std Deviation 58.0 H, RDW Coeff of Jaqueline 16.5 H, Plt Count 117 L, MPV 13.0 H, Immature Gran % (Auto) 0.800, Neut % (Auto) 66.7, Lymph % (Auto) 24.4, [place] % (Auto) 6.0, Eos % (Auto) 1.7, Baso % (Auto) 0.4, Absolute Neuts (auto) 3.4, Absolute Lymphs (auto) 1.26, Nucleated RBC % 0, Sodium 138, Potassium 4.0, Chloride 102, Carbon Dioxide 23.5, Anion Gap 12, BUN 22 H, Creatinine 1.62 H, Estim Creat Clear Calc 34.78 L, Est GFR (MDRD) Non-Af 41 L, BUN/Creatinine Ratio 13.5, Glucose 120 H, Calcium 8.4, Blood Type O POSITIVE, Antibody Screen NEGATIVE, Crossmatch See Detail 11/07/24 22:13: POC Glucose 110 H 11/08/24 06:25: POC Glucose 95 11/08/24 06:27: WBC 3.7 L, RBC 2.54 L, Hgb 7.2 L, Hct 23.9 L, MCV 94.1 H, MCH 28.3, MCHC 30.1 L, RDW Std Deviation 55.7 H, RDW Coeff of Jaqueline 16.3 H, Plt Count 100 L, MPV 13.3 H, Sodium 139, Potassium 4.2, Chloride 104, Carbon Dioxide 22.9,Anion Gap 12, BUN 22 H, Creatinine 1.56 H, Estim Creat Clear Calc 36.12 L, Est GFR (MDRD) Non- Af 43 L, BUN/Creatinine Ratio 14.2, Glucose 92, Calcium 8.2, NT pro BNP II 5530 H 11/08/24 11:35: POC Glucose 91 Micro: Microbiology 11/07/24 15:12 Stool Stool Occult Blood (JOVANY) - Final Occult Blood Positive Radiography Diagnostic Testing: Radiology Impression Chest X-Ray 11/07/24 15:15 IMPRESSION: 1. Limited hypoinflated exam. Cardiomegaly with central vascular prominence andsuspected trace pulmonary edema. 2. Additional description as above. Reading Location: [facility] Physical Exam Const alert, oriented x3 and no apparent distress General Appearance: cooperative and well developed HEENT normocephalic, head/scalp atraumatic, moist oral mucous membranes and oropharynxnormal Eyes PERRL and EOMs intact bilaterally Neck no lymphadenopathy and supple Lymph Lymphatic: no lymphadenopathy noted and no lymphedema noted Resp Resp Narrative: mildly diminished breath sounds bibasally, no wheezes or crackles. On room air. Cardio regular rate, regular rhythm, S1 normal heart sound and S2 normal heart sound GI normal to inspection, nondistended, normoactive bowel sounds, soft to palpation,non-tender and non-distended Extremity normal capillary refill, no clubbing, cyanosis or edema and no calf tenderness General Extremity: no tenderness to palpation of joints or extremities Skin General Skin Exam: no breakdown Neuro CN's II-XII intact bilaterally, no focal motor deficits and no sensory deficits noted Motor Exam: strength 5/5 throughout and general weakness Psych thought process normal, cooperative and affect normal Appearance: appropriate Assessment & Plan Assessment/Plan (1) Acute heart failure with preserved ejection fraction (HFpEF): (2) Acute on chronic anemia: PLAN: Plan #Acute on chronic anemia due to GI bleed * stool for occult blood is positive. * s/p transfusion of 2 units of PRBCs. * hb today is 7.2 * start IV pantoprazole. * for EGD today * gastroenterology on board. * #Acute HFpEF * has known EF of 65% from echo done in September 2023, with mild LV hypertrophy, stage II diastolic dysfunction and mild pulmonary hypertension. * had 3-4+ edema and CXR with cardiomegaly and central venous prominence. * 2D echo ordered * on IV lasix bid. * #PEG: * Cr was 1.6 on admission. Down to 1.56 today. * Baseline Cr is ~ 1.3. Will monitor. * hydrate gently with IVF. #Debility due to recent right total hip replacement * had total hip replacement done at [facility] on 10/07/2024. * PT/OT on board. * #Paroxysmal afib * on metoprolol and amiodarone. Eliquis on hold due to GI bleed * #Type 2 diabetes mellitus: metformin held. ISS. Accuchecks ACHS #CAD s/p CABG: on imdur and ezetimibe as well as statin. Plavix on hold. #Hypertension: on metoprolol. 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 #GERD: on PPI DVT prophylaxis: SCDs. Charges/Coding Visit Charges Inpatient E&M: 37063 Subs Hosp L2 11/08/24 1558 <Electronically signed by Ju Fragoso MD> Ju Fragoso MD Cosigner Signature (if applicable): CC: ~ Signed [facility] Work Phone: [phone]) 198-546203-18-2025 Telephone encounter Note* Telephone Encounter - Valery Quinteros APRN.[employer]SI[employer]ANT [employer]GER - 11/08/2024 5:11 PM EDT Patient was admitted to the PCU on November 07, 2024 as he presented to the emergency room from a [facility] facility with anemia. He had blood work done at the facility that showed a hemoglobin of 6.2. He is reportedly on Eliquisand Plavix. Had a right hip replacement in September. Baseline anemia around 8. He has not been having black or bloody stools and he is still stating that is hard for him to see the stool given the size of his bathroom. Patient is very focused on the temperature of the room and is hard to redirect him back to why he is here. He is uncertain of exactly who did his surgery. He states that he had been [facility] about a month. States he is growing weaker. His legs are more swollen thannormal. Sometime last night he has shortness of breath. Denied palpitations. Denies cough or fever. Blood pressure 118/75 and later 84/70. Heart rate 61-72 Rectal exam showed dark brown stool no gross blood on glove. Formed hard stool. Differential diagnosis includes anemia with upper GI bleed or lower GI bleed due to anticoagulationand chronic anemia and chronic blood loss anemia. Hemoglobin currently 7.2 with a platelet count of 117. BUN 22, creatinine 1.62, glucose 128 Hemoccult is positive. Typed and crossed for 1 unit. We performed an EKG that showed probable sinuslead II with a rate of 69, right bundle branch block, rotation of the chest is chronic changes withno distinct infiltrate. Vancouver score 24. WBC 5.2, hemoglobin 7.2, hematocrit 24.8, platelet count 117-RBC 2.54 Sodium 138, potassium 4.0, BUN 22, creatinine 1.62, glucose 120 GFR 34.78 Calcium 8.4 [facility]03-18-2025 Miscellaneous Notes* Telephone Encounter - Valery Quinteros APRN.CNP - 11/08/2024 5:11 PM EDT Patient was admitted to the PCU on November 07, 2024 as he presented to the emergency room from a [facility] facility with anemia. He had blood work done at the facility that showed a hemoglobin of 6.2. He is reportedly on Eliquisand Plavix. Had a right hip replacement in September. Baseline anemia around 8. He has not been having black or bloody stools and he is still stating that is hard for him to see the stool given the size of his bathroom. Patient is very focused on the temperature of the room and is hard to redirect him back to why he is here. He is uncertain of exactly who did his surgery. He states that he had [facility] about a [facility]. States he is growing weaker. His legs are more swollen thannormal. Sometime last night he has shortness of breath. Denied palpitations. Denies cough or fever. Blood pressure 118/75 and later 84/70. Heart rate 61-72 Rectal exam showed dark brown stool no gross blood on glove. Formed hard stool. Differential diagnosis includes anemia with upper GI bleed or lower GI bleed due to anticoagulationand chronic anemia and chronic blood loss anemia. Hemoglobin currently 7.2 with a platelet count of 117. BUN 22, creatinine 1.62, glucose 128 Hemoccult is positive. Typed and crossed for 1 unit. We performed an EKG that showed probable sinuslead II with a rate of 69, right bundle branch block, rotation of the chest is chronic changes withno distinct infiltrate. Vancouver score 24. WBC 5.2, hemoglobin 7.2, hematocrit 24.8, platelet count 117-RBC 2.54 Sodium 138, potassium 4.0, BUN 22, creatinine 1.62, glucose 120 GFR 34.78 Calcium 8.4 [facility] Progress note [facility] Medical Records Department [address] [place] [address] Progress Note 11/08/24 1220 MR#: [id number] Acct: [id number] Name: ANGIE DUTTON Fran Rep #:[id number] : 1940 84 From: Ju Fragoso MD PCP: Vaelry Quinteros, SLEEVE WHEEL MAKER Status:ADM IN Location: [place] [address] Subjective Subjective Patient seen and examined. He had no active complaints. He denied having had anydark stools overnight. Review of systems is otherwise negative. He is on room air. He is due for EGD today. Objective Data Objective Data Vital Signs: Vital Signs Temp Pulse Resp BP Pulse Ox O2 Del Method 98.1 F 65 17 100/48 L 96 Room Air 11/08/24 10:32 11/08/24 10:32 11/08/24 10:32 11/08/24 10:32 11/08/24 10:32 11/08/24 10:32 Oxygen Delivery Method Room Air Weight: 187 lb 13.341 oz Body Mass Index (BMI) 28.4 Intake & Output: Intake and Output for Last 24 Hours 11/06/24 11/07/24 11/08/24 23:59 23:59 23:59 Intake Total 0 / 0 Output Total 800 / 800 500 / 500 Balance -800 / -800 -500 / -500 Lab / Micro Data 11/08/24 06:27 11/08/24 06:27 Labs: Laboratory Results - last 24 hr 11/07/24 13:40: WBC 5.2, RBC 2.54 L, Hgb 7.2 L, Hct 24.4 L, MCV 96.1 H, MCH 28.3, MCHC 29.5 L, RDW Std Deviation 58.0 H, RDW Coeff of Jaqueline 16.5 H, Plt Count 117 L, MPV 13.0 H, Immature Gran % (Auto) 0.800, Neut % (Auto) 66.7, Lymph % (Auto) 24.4, [place] % (Auto) 6.0, Eos % (Auto) 1.7, Baso % (Auto) 0.4, Absolute Neuts (auto) 3.4, Absolute Lymphs (auto) 1.26, Nucleated RBC % 0, Sodium 138, Potassium 4.0, Chloride 102, Carbon Dioxide 23.5, Anion Gap 12, BUN 22 H, Creatinine 1.62 H, Estim Creat ClearCalc 34.78 L, Est GFR (MDRD) Non-Af 41 L, BUN/Creatinine Ratio 13.5, Glucose 120 H, Calcium 8.4, Blood Type O POSITIVE, Antibody Screen NEGATIVE, Crossmatch See Detail 11/07/24 22:13: POC Glucose 110 H 11/08/24 06:25: POC Glucose 95 11/08/24 06:27: WBC 3.7 L, RBC 2.54 L, Hgb 7.2 L, Hct 23.9 L, MCV 94.1 H, MCH 28.3, MCHC 30.1 L, RDW Std Deviation 55.7 H, RDW Coeff of Jaqueline 16.3 H, Plt Count 100 L, MPV 13.3 H, Sodium 139, Potassium 4.2, Chloride 104, Carbon Dioxide 22.9,Anion Gap 12, BUN 22 H, Creatinine 1.56 H, Estim Creat Clear Calc 36.12 L, Est GFR (MDRD) Non-Af 43 L, BUN/Creatinine Ratio 14.2, Glucose 92, Calcium 8.2, NT proBNP II 5530 H 11/08/24 11:35: POC Glucose 91 Micro: Microbiology 11/07/24 15:12 Stool Stool Occult Blood (JOVANY) - Final Occult Blood Positive Radiography Diagnostic Testing: Radiology Impression Chest X-Ray 11/07/24 15:15 IMPRESSION: 1. Limited hypoinflated exam. Cardiomegaly with central vascular prominence andsuspected trace pulmonary edema. 2. Additional description as above. Reading Location: [facility] Physical Exam Const alert, oriented x3 and no apparent distress General Appearance: cooperative and well developed HEENT normocephalic, head/scalp atraumatic, moist oral mucous membranes and oropharynxnormal Eyes PERRL and EOMs intact bilaterally Neck no lymphadenopathy and supple Lymph Lymphatic: no lymphadenopathy noted and no lymphedema noted Resp Resp Narrative: mildly diminished breath sounds bibasally, no wheezes or crackles. On room air. Cardio regular rate, regular rhythm, S1 normal heart sound and S2 normal heart sound GI normal to inspection, nondistended, normoactive bowel sounds, soft to palpation,non-tender and non-distended Extremity normal capillary refill, no clubbing, cyanosis or edema and no calf tenderness General Extremity: no tenderness to palpation of joints or extremities Skin General Skin Exam: no breakdown Neuro CN's II-XII intact bilaterally, no focal motor deficits and no sensory deficits noted Motor Exam: strength 5/5 throughout and general weakness Psych thought process normal, cooperative and affect normal Appearance: appropriate Assessment & Plan Assessment/Plan (1) Acute heart failure with preserved ejection fraction (HFpEF): (2) Acute on chronic anemia: PLAN: Plan #Acute on chronic anemia due to GI bleed * stool for occult blood is positive. * s/p transfusion of 2 units of PRBCs. * hb today is 7.2 * start IV pantoprazole. * for EGD today * gastroenterology on board. * #Acute HFpEF * has known EF of 65% from echo done in September 2023, with mild LV hypertrophy, stage II diastolicdysfunction and mild pulmonary hypertension. * had 3-4+ edema and CXR with cardiomegaly and central venous prominence. * 2D echo ordered * on IV lasix bid. * #PEG: * Cr was 1.6 on admission. Down to 1.56 today. * Baseline Cr is ~ 1.3. Will monitor. * hydrate gently with IVF. #Debility due to recent right total hip replacement * had total hip replacement done at [facility] on 10/07/2024. * PT/OT on board. * #Paroxysmal afib * on metoprolol and amiodarone. Eliquis on hold due to GI bleed * #Type 2 diabetes mellitus: metformin held. ISS. Accuchecks ACHS #CAD s/p CABG: on imdur and ezetimibe as well as statin. Plavix on hold. #Hypertension: on metoprolol. 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 #GERD: on PPI DVT prophylaxis: SCDs. Charges/Coding Visit Charges Inpatient E&M: 74600 [facility] Hosp L2 11/08/24 1558 Ju Fragoso MD Cosigner Signature (if applicable): CC: ~ Signed [facility]03-18-2025 Discharge summary Author Ellyn Mcclain [facility] Note Date/Time November 08, 2024 12: 08[facility] Medical Records Department [address] [place] [address] Emergency Department Summary 11/07/24 MR#: [id number] Acct: [id number] Name: ANGIE DUTTON Rep #:[id number] : 1940 84 From: Ellyn Carrero PCP: Valery Quinteros, SLEEVE WHEEL MAKER Status:ADM IN Location: [place] [address] HPI History of Present Illness Chief Complaint: Abn Labs Informant: patient and SNF Narrative Narrative: 84-year-old male presenting to the emergency room with a report of anemia. Patient reportedly had blood work done this morning showed a hemoglobin of 6.2. He is on reportedly Eliquis and Plavix. He had a right hip replacement in September. He has a baseline anemia around 8. He states he has not been having black or bloody stools but he still also states that it is hard for him to see the stool given the size of his bathroom. Patient is very focused on the temperature of the room it is hard to redirect him back to his why he is here. He is unsure of exactly who did his surgery. He states [facility] and states that he is growing weaker. He notes that his legs are more swollen than normal. Patient states that sometime last night due to shortness of breath. He denied any chest pain palpitations. He denies any cough or fever. He has not been having short of breath. [facility] Medical History Kidney disease GERD (gastroesophageal reflux disease) Former tobacco use HLD (hyperlipidemia) CAD (coronary artery disease) History of chronic hypertension Right leg weakness Myocardial infarct Hypertension Vertigo Home Medications ?Medication ?Instructions ?Recorded ?Last Taken ?Type clopidogrel 75 mg tablet 75 mg PO DAILY anti platelet 08/23/19 06/25/21 History isosorbide mononitrate 30 mg 15 mg PO DAILY HEART 07/2606/25/21 History tablet,extended release 24 hr gabapentin 400 mg capsule 400 mg PO BID NERVE PAIN 10/1406/25/21 History pantoprazole 20 mg tablet,delayed 20 mg PO BID GERD 06/25/21 History release simvastatin 40 mg tablet 40 mg PO DAILY CHOLESTEROL 1 08/25/20 06/24/21 History trazodone 50 mg tablet 50 mg PO QHS SLEEP 06/25/21 06/24/21 History ezetimibe 10 mg tablet 10 mg PO DAILY 09/24/23 Unkn own History apixaban 5 mg tablet (Eliquis) 5 mg PO BID #60 tabs Unknown Rx metoprolol succinate 50 mg 50 mg PO DAILY #30 tabs 11/14 Unknown Rx tablet,extended release 24 hr acetaminophen 500 mg capsule 1,000 mg PO Q8H PRN PRN f ever or 11/07/24 Unknown History pain acetaminophen 650 mg rectal 650 mg ID Q4H PRN fever or pain 11/07/24 Unknown History suppository aluminum-magnesium hydroxide 200 30 ml PO Q4H PRN dysp epsia 11/07/24 Unknown History mg-200 mg/5 mL oral suspension (MAG-AL) amiodarone 200 mg tablet 200 mg PO DAILY 11/07/24 Unk nown History amiodarone 400 mg tablet 400 mg PO DAILY 11/07/24 Unk nown History ascorbic acid (vitamin C) 500 mg 500 mg PO BID SUPPLEM ENT 11/07/24 Unknown History capsule bisacodyl 10 mg rectal suppository 10 mg ID DAILY PRN constipation 11/07/24 Unknown History docusate sodium 100 mg capsule 100 mg PO DAILY 5 Unknown History ferrous sulfate 325 mg (65 mg 325 mg PO DAILY 11/07/24 Unknown History iron) tablet (FeroSul) furosemide 20 mg tablet 20 mg PO DAILY 11/07/24 Unkn own History glucagon 1 mg solution for 1 mg IM Q20M PRN hypoglycem ia 11/07/24 Unknown History injection (Glucagon Emergency Kit) guaifenesin 100 mg/5 mL oral 200 mg PO Q4H PRN congest ion 11/07/24 Unknown History liquid (Adult Tussin Chest Congestion) hydroxyzine HCl 25 mg tablet 25 mg PO TID PRN anxiety 11/07/24 Unknown History magnesium hydroxide 400 mg/5 mL 30 ml PO DAILY PRN con stipation 11/07/24 Unknown History oral suspension (Milk of Magnesia) metformin 500 mg tablet,extended 500 mg PO DAILY 11/07 Unknown History release 24 hr ondansetron 4 mg disintegrating 4 mg PO Q6H PRN nausea and vomiting 11/07/24 Unknown History tablet polyethylene glycol 3350 17 17 g PO DAILY 11/07/24 Unk nown History gram/dose oral powder (ClearLax) sodium phosphates 19 gram-7 118 ml ID DAILY PRN consti pation 11/07/24 Unknown History gram/118 mL enema (Fleet Enema) tamsulosin 0.4 mg capsule 0.4 mg PO Q24H 11/07/24 Unkn own History Allergy/AdvReac Type Severity Reaction Status Date / Time Sulfa (Sulfonamide Allergy Unknown Verified 03/25/24 10:25 Antibiotics) Family History Mother Heart disease Father Heart disease Surgical History Status post arthroscopic knee surgery S/P bilateral foot surgery S/p bilateral carpal tunnel release S/P tonsillectomy and adenoidectomy S/P bilateral cataract extraction S/P CABG x 3 Stented coronary artery H/O right heart catheterization Social History household members: spouse Smoking Status: Former smoker how long ago did patient quit smoking: Quit when he was 44 y/o, 1/2 ppd since 10 years old. alcohol intake: never substance use type: does not use ROS ROS ED Constitutional Constitutional ED: Denies chills or weight loss Eyes Eyes: Denies change in vision or diplopia ENT ENT ED: Denies ear pain, rhinorrhea or sore throat Cardiovascular Cardiovascular: Denies chest pain, orthopnea, palpitations or racing heartbeat Respiratory/Chest Respiratory/Chest: Reports dyspnea; Denies cough or orthopnea Gastrointestinal Gastrointestinal: Denies abdominal pain, diarrhea, nausea or vomiting Genitourinary Genitourinary ED: Denies dysuria, hematuria or urinary frequency Musculoskeletal Musculoskeletal: Denies arthralgias or myalgias Integumentary Denies abscess or rash Neurologic Neurologic: Denies headache(s) or weakness Psychiatric Psychiatric: Denies anxiety, depression, suicidal ideation or suicidal thoughts Endocrine Endocrinology: Denies polydipsia, polyphagia or polyuria Allergic/Immunologic Allergic/Immunologic ED: Denies mouth swelling, tongue swelling or urticaria EXAM Physical Exam Const Vital Signs: 11/07/24 13:32 11/07/24 13:36 11/07/24 14:36 Temperature 98.6 F 98.1 F Temperature Source Oral Oral Pulse Rate 72 61 Respiratory Rate 13 18 Respiratory Effort Short of Breath Blood Pressure 118/75 98/55 L Blood Pressure Mean 89 69 Pulse Ox 94 98 Oxygen Delivery Method Room Air Room Air 11/07/24 15:00 11/07/24 15:55 11/07/24 16:08 Temperature 98.1 F 98.2 F Temperature Source Oral Pulse Rate 67 65 65 Respiratory Rate 19 H 18 18 Respiratory Effort Blood Pressure 106/71 84/70 L 99/67 Blood Pressure Mean 82 74 77 Pulse Ox 95 95 98 Oxygen Delivery Method Room Air Room Air Positive well nourished and well developed General Appearance ED: well developed and NAD HEENT Reports normocephalic, head/scalp atraumatic and moist mucous membranes Eyes PERRL and EOMs intact bilaterally Neck no lymphadenopathy, supple and no JVD Resp normal respiratory effort and clear to auscultation bilaterally Cardio regular rate, regular rhythm and no murmurs GI normal to inspection, nondistended, normoactive bowel sounds and non-tender Palpation: soft Narrative: Formed hard stool. Dark brown stool. No gross blood on glove. Back/Spine no CVA tenderness and normal ROM Extremity Extremity Narrative: abrasion left leg General Extremety ED: Yes edema General Extremity: edema bilateral lower extremity Details: moderate Neuro oriented x3 and CN's II-XII intact bilaterally Sensorium / Orientation: alert Motor Exam: strength 5/5 throughout Psych mental status grossly normal Mood & Affect: Negative for depressed or tearful Skin no rashes or lesions noted Skin Narrative: healing incision on right leg. MDM MDM MDM Narrative Medical decision making narrative: Differential diagnosis includes anemia upper GI bleed lower GI bleed anticoagulation chronic anemia acute blood loss anemia Patient's hemoglobin currently is 7.2 with a platelet count of 117. BUN of 22 creatinine 1.62 glucose of 128. Hemoccult is positive. He is typed and crossedfor 1 unit. We performed an EKG that shows a probable sinus (lead II) with a rate of 69 right bundle branch block rotation of the chest x-ray is chronic changes no distinct infiltrate. The patient is Dawes score is about 24. I will speak with the hospitalist regarding patient. History & Record Review Discussion w/independent historian: EMS personnel and Patient Lab Data Attestation: I reviewed the patient's lab results. Labs: Laboratory Results - last 24 hr 11/07/24 13:40 WBC 5.2 RBC 2.54 L Hgb 7.2 L Hct 24.4 L MCV 96.1 H MCH 28.3 MCHC 29.5 L RDW Std Deviation 58.0 H RDW Coeff of Jaqueline 16.5 H Plt Count 117 L MPV 13.0 H Immature Gran % (Auto) 0.800 Neut % (Auto) 66.7 Lymph % (Auto) 24.4 [place] % (Auto) 6.0 Eos % (Auto) 1.7 Baso % (Auto) 0.4 Absolute Neuts (auto) 3.4 Absolute Lymphs (auto) 1.26 Nucleated RBC % 0 Sodium 138 Potassium 4.0 Chloride 102 Carbon Dioxide 23.5 Anion Gap 12 BUN 22 H Creatinine 1.62 H Estim Creat Clear Calc 34.78 L Est GFR (MDRD) Non-Af 41 L BUN/Creatinine Ratio 13.5 Glucose 120 H Calcium 8.4 Crossmatch See Detail EKG Initial EKG: Attestation: I personally reviewed and interpreted this EKG as follows: Comments: Probable sinus rhythm with a ventricular to 69 bpm. Right bundle branch block is noted. No significant change from last computer Management Discussion w/another healthcare provider: Hospitalist Kevin) Discharge Plan Dx/Rx/DC Orders Clinical Impression: GI bleed, Acute on chronic anemia, Anticoagulated Disposition Disposition: Acute Care Hospital [facility] What to do if you have Problems For any increased pain, shortness of breath, bleeding, nausea or vomiting, chestpain, or any unexpected problems, contact your Primary Care Provider. Call [facility] ([phone]) or report to the closest Emergency Room. Call 911 if necessary. 11/08/24 000 <Electronically signed by Ellyn Mcclain DO> Cosigner Signature (if applicable): CC: PANCHITO Quinteros ~ Signed [facility] Work Phone: [phone] Discharge summary [facility] Medical Records Department [address] [place] [id number] Emergency Department Summary 11/07/24 MR#: [id number] Acct: [id number] Name: ANGIE DUTTON Rep #:[id number] : 1940 84 From: Ellyn Carrero PCP: PANCHITO Harris Status:ADM IN Location: [address] History of Present Illness Chief Complaint: Abn Labs Informant: patient and SNF Narrative Narrative: 84-year-old male presenting to the emergency room with a report of anemia. Patient reportedly had blood work done this morning showed a hemoglobin of 6.2. He is on reportedly Eliquis and Plavix. He had a right hip replacement in September. He has a baseline anemia around 8. He states he has not beenhaving black or bloody stools but he still also states that it is hard for him to see the stool given the size of his bathroom. Patient is very focused on the temperature of the room it is hard to redirect him back to his why he is here. He is unsure of exactly who did his surgery. [facility] and states that he is growing weaker. He notes that his l egs are more swollen than normal. Patient states that sometime last night due to shortness of breath. He denied any chest pain palpitations. He denies any cough or fever. He has not been having shortof breath. [facility] Medical History Kidney disease GERD (gastroesophageal reflux disease) Former tobacco use HLD (hyperlipidemia) CAD (coronary artery disease) History of chronic hypertension Right leg weakness Myocardial infarct Hypertension Vertigo Home Medications ?Medication ?Instructions ?Recorded ?Last Taken ?Type clopidogrel 75 mg tablet 75 mg PO DAILY anti platelet 08/23/19 06/25/21 History isosorbide mononitrate 30 mg 15 mg PO DAILY HEART 07/2606/25/21 History tablet,extended release 24 hr gabapentin 400 mg capsule 400 mg PO BID NERVE PAIN 10/1406/25/21 History pantoprazole 20 mg tablet,delayed 20 mg PO BID GERD 06/25/21 History release simvastatin 40 mg tablet 40 mg PO DAILY CHOLESTEROL 1 08/25/20 06/24/21 History trazodone 50 mg tablet 50 mg PO QHS SLEEP 06/25/21 06/24/21 History ezetimibe 10 mg tablet 10 mg PO DAILY 09/24/23 Unkn own History apixaban 5 mg tablet (Eliquis) 5 mg PO BID #60 tabs Unknown Rx metoprolol succinate 50 mg 50 mg PO DAILY #30 tabs 11/14 Unknown Rx tablet,extended release 24 hr acetaminophen 500 mg capsule 1,000 mg PO Q8H PRN PRN f ever or 11/07/24 Unknown History pain acetaminophen 650 mg rectal 650 mg ID Q4H PRN fever or pain 11/07/24 Unknown History suppository aluminum-magnesium hydroxide 200 30 ml PO Q4H PRN dysp epsia 11/07/24 Unknown History mg-200 mg/5 mL oral suspension (MAG-AL) amiodarone 200 mg tablet 200 mg PO DAILY 11/07/24 Unk nown History amiodarone 400 mg tablet 400 mg PO DAILY 11/07/24 Unk nown History ascorbic acid (vitamin C) 500 mg 500 mg PO BID SUPPLEM ENT 11/07/24 Unknown History capsule bisacodyl 10 mg rectal suppository 10 mg ID DAILY PRN constipation 11/07/24 Unknown History docusate sodium 100 mg capsule 100 mg PO DAILY 5 Unknown History ferrous sulfate 325 mg (65 mg 325 mg PO DAILY 11/07/24 Unknown History iron) tablet (FeroSul) furosemide 20 mg tablet 20 mg PO DAILY 11/07/24 Unkn own History glucagon 1 mg solution for 1 mg IM Q20M PRN hypoglycem ia 11/07/24 Unknown History injection (Glucagon Emergency Kit) guaifenesin 100 mg/5 mL oral 200 mg PO Q4H PRN congest ion 11/07/24 Unknown History liquid (Adult Tussin Chest Congestion) hydroxyzine HCl 25 mg tablet 25 mg PO TID PRN anxiety 11/07/24 Unknown History magnesium hydroxide 400 mg/5 mL 30 ml PO DAILY PRN con stipation 11/07/24 Unknown History oral suspension (Milk of Magnesia) metformin 500 mg tablet,extended 500 mg PO DAILY 11/07 Unknown History release 24 hr ondansetron 4 mg disintegrating 4 mg PO Q6H PRN nausea and vomiting 11/07/24 Unknown History tablet polyethylene glycol 3350 17 17 g PO DAILY 11/07/24 Unk nown History gram/dose oral powder (ClearLax) sodium phosphates 19 gram-7 118 ml ID DAILY PRN consti pation 11/07/24 Unknown History gram/118 mL enema (Fleet Enema) tamsulosin 0.4 mg capsule 0.4 mg PO Q24H 11/07/24 Unkn own History Allergy/AdvReac Type Severity Reaction Status Date / Time Sulfa (Sulfonamide Allergy Unknown Verified 03/25/24 10:25 Antibiotics) Family History Mother Heart disease Father Heart disease Surgical History Status post arthroscopic knee surgery S/P bilateral foot surgery S/p bilateral carpal tunnel release S/P tonsillectomy and adenoidectomy S/P bilateral cataract extraction S/P CABG x 3 Stented coronary artery H/O right heart catheterization Social History household members: spouse Smoking Status: Former smoker how long ago did patient quit smoking: Quit when he was 44 y/o, 1/2 ppd since 10 years old. alcohol intake: never substance use type: does not use ROS ROS ED Constitutional Constitutional ED: Denies chills or weight loss Eyes Eyes: Denies change in vision or diplopia ENT ENT ED: Denies ear pain, rhinorrhea or sore throat Cardiovascular Cardiovascular: Denies chest pain, orthopnea, palpitations or racing heartbeat Respiratory/Chest Respiratory/Chest: Reports dyspnea; Denies cough or orthopnea Gastrointestinal Gastrointestinal: Denies abdominal pain, diarrhea, nausea or vomiting Genitourinary Genitourinary ED: Denies dysuria, hematuria or urinary frequency Musculoskeletal Musculoskeletal: Denies arthralgias or myalgias Integumentary Denies abscess or rash Neurologic Neurologic: Denies headache(s) or weakness Psychiatric Psychiatric: Denies anxiety, depression, suicidal ideation or suicidal thoughts Endocrine Endocrinology: Denies polydipsia, polyphagia or polyuria Allergic/Immunologic Allergic/Immunologic ED: Denies mouth swelling, tongue swelling or urticaria EXAM Physical Exam Const Vital Signs: 11/07/24 13:32 11/07/24 13:36 11/07/24 14:36 Temperature 98.6 F 98.1 F Temperature Source Oral Oral Pulse Rate 72 61 Respiratory Rate 13 18 Respiratory Effort Short of Breath Blood Pressure 118/75 98/55 L Blood Pressure Mean 89 69 Pulse Ox 94 98 Oxygen Delivery Method Room Air Room Air 11/07/24 15:00 11/07/24 15:55 11/07/24 16:08 Temperature 98.1 F 98.2 F Temperature Source Oral Pulse Rate 67 65 65 Respiratory Rate 19 H 18 18 Respiratory Effort Blood Pressure 106/71 84/70 L 99/67 Blood Pressure Mean 82 74 77 Pulse Ox 95 95 98 Oxygen Delivery Method Room Air Room Air Positive well nourished and well developed General Appearance ED: well developed and NAD HEENT Reports normocephalic, head/scalp atraumatic and moist mucous membranes Eyes PERRL and EOMs intact bilaterally Neck no lymphadenopathy, supple and no JVD Resp normal respiratory effort and clear to auscultation bilaterally Cardio regular rate, regular rhythm and no murmurs GI normal to inspection, nondistended, normoactive bowel sounds and non-tender Palpation: soft Narrative: Formed hard stool. Dark brown stool. No gross blood on glove. Back/Spine no CVA tenderness and normal ROM Extremity Extremity Narrative: abrasion left leg General Extremety ED: Yes edema General Extremity: edema bilateral lower extremity Details: moderate Neuro oriented x3 and CN's II-XII intact bilaterally Sensorium / Orientation: alert Motor Exam: strength 5/5 throughout Psych mental status grossly normal Mood & Affect: Negative for depressed or tearful Skin no rashes or lesions noted Skin Narrative: healing incision on right leg. MDM MDM MDM Narrative Medical decision making narrative: Differential diagnosis includes anemia upper GI bleed lower GI bleed anticoagulation chronic anemiaacute blood loss anemia Patient's hemoglobin currently is 7.2 with a platelet count of 117. BUN of 22 creatinine 1.62 glucose of 128. Hemoccult is positive. He is typed and crossedfor 1 unit. We performed an EKG that shows a probable sinus (lead II) with a rate of 69 right bundle branch block rotation of the chest x-ray is chronic changes no distinct infiltrate. The patient is Dawes score is about 24. I will speak with the hospitalist regarding patient. History & Record Review Discussion w/independent historian: EMS personnel and Patient Lab Data Attestation: I reviewed the patient's lab results. Labs: Laboratory Results - last 24 hr 11/07/24 13:40 WBC 5.2 RBC 2.54 L Hgb 7.2 L Hct 24.4 L MCV 96.1 H MCH 28.3 MCHC 29.5 L RDW Std Deviation 58.0 H RDW Coeff of Jaqueline 16.5 H Plt Count 117 L MPV 13.0 H Immature Gran % (Auto) 0.800 Neut % (Auto) 66.7 Lymph % (Auto) 24.4 [place] % (Auto) 6.0 Eos % (Auto) 1.7 Baso % (Auto) 0.4 Absolute Neuts (auto) 3.4 Absolute Lymphs (auto) 1.26 Nucleated RBC % 0 Sodium 138 Potassium 4.0 Chloride 102 Carbon Dioxide 23.5 Anion Gap 12 BUN 22 H Creatinine 1.62 H Estim Creat Clear Calc 34.78 L Est GFR (MDRD) Non-Af 41 L BUN/Creatinine Ratio 13.5 Glucose 120 H Calcium 8.4 Crossmatch See Detail EKG Initial EKG: Attestation: I personally reviewed and interpreted this EKG as follows: Comments: Probable sinus rhythm with a ventricular to 69 bpm. Right bundle branch block is noted. No significant change from last computer Management Discussion w/another healthcare provider: Hospitalist (Paula) Discharge Plan Dx/Rx/DC Orders Clinical Impression: GI bleed, Acute on chronic anemia, Anticoagulated Disposition Disposition: Acute Care Hospital [facility] What to do if you have Problems For any increased pain, shortness of breath, bleeding, nausea or vomiting, chestpain, or any unexpected problems, contact your Primary Care Provider. Call [facility] ([phone]) or report tothe closest Emergency Room. Call 911 if necessary. 11/08/247 Cosigner Signature (if applicable): CC: PANCHITO Quinteros ~ Signed [facility]03-17-2025 Consult note Author Slade Friend [facility] Note Date/Time November 07, 2024 9:3 1pm [facility] Medical Records Department [address] [place] [address] Consultation - GI 11/07/242123 MR#: [id number] Acct: [id number] Name: ANGIE DUTTON Rep #:[id number] : 1940 84 From: Slade Florez DO PCP: PANCHITO Harris Status:ADM IN Location: [place] [address] HPI Consult Data Date of Consult: 11/07/24 HPI Narrative Reason for Consultation: Anemia HPI Narrative: ANGIE DUTTON, is a 84 M who presents to the emergency room with a report of anemia. Patient reportedly had blood work done this morning showed a hemoglobinof 6.2. He is on reportedly Eliquis and Plavix. He had a right hip replacementin September. He has a baseline anemia around 8. He states he has not been having black or bloody stools but he still also states that it is hard for him to see the stool given the size of his bathroom. He [facility] and states that he is growing weaker. He notes that his legs are more swollen than normal. Patient states that sometime last night due to shortness of breath. He denied any chest pain palpitations. He denies any cough or fever. He has not been having short of breath. WBC 5.2, Hgb 7.2 L, MCV 96.1 H, MCH 28.3, Plt Count 117 L Sodium 138, Potassium 4.0, Chloride 102, Carbon Dioxide 23.5, Anion Gap 12, BUN22 H, Creatinine 1.62 H, PFSH Medical History Kidney disease GERD (gastroesophageal reflux disease) Former tobacco use HLD (hyperlipidemia) CAD (coronary artery disease) History of chronic hypertension Right leg weakness Myocardial infarct Hypertension Vertigo Home Medications ?Medication ?Instructions ?Recorded ?Last Taken ?Type clopidogrel 75 mg tablet 75 mg PO DAILY anti platelet 08/23/19 06/25/21 History isosorbide mononitrate 30 mg 15 mg PO DAILY HEART 07/2606/25/21 History tablet,extended release 24 hr gabapentin 400 mg capsule 400 mg PO BID NERVE PAIN 10/1406/25/21 History pantoprazole 20 mg tablet,delayed 20 mg PO BID GERD 06/25/21 History release simvastatin 40 mg tablet 40 mg PO DAILY CHOLESTEROL 1 08/25/20 06/24/21 History trazodone 50 mg tablet 50 mg PO QHS SLEEP 06/25/21 06/24/21 History ezetimibe 10 mg tablet 10 mg PO DAILY 09/24/23 Unkn own History apixaban 5 mg tablet (Eliquis) 5 mg PO BID #60 tabs Unknown Rx metoprolol succinate 50 mg 50 mg PO DAILY #30 tabs 11/14 Unknown Rx tablet,extended release 24 hr acetaminophen 500 mg capsule 1,000 mg PO Q8H PRN PRN f ever or 11/07/24 Unknown History pain acetaminophen 650 mg rectal 650 mg ID Q4H PRN fever or pain 11/07/24 Unknown History suppository aluminum-magnesium hydroxide 200 30 ml PO Q4H PRN dysp epsia 11/07/24 Unknown History mg-200 mg/5 mL oral suspension (MAG-AL) amiodarone 200 mg tablet 200 mg PO DAILY 11/07/24 Unk nown History amiodarone 400 mg tablet 400 mg PO DAILY 11/07/24 Unk nown History ascorbic acid (vitamin C) 500 mg 500 mg PO BID SUPPLEM ENT 11/07/24 Unknown History capsule bisacodyl 10 mg rectal suppository 10 mg ID DAILY PRN constipation 11/07/24 Unknown History docusate sodium 100 mg capsule 100 mg PO DAILY 5 Unknown History ferrous sulfate 325 mg (65 mg 325 mg PO DAILY 11/07/24 Unknown History iron) tablet (FeroSul) furosemide 20 mg tablet 20 mg PO DAILY 11/07/24 Unkn own History glucagon 1 mg solution for 1 mg IM Q20M PRN hypoglycem ia 11/07/24 Unknown History injection (Glucagon Emergency Kit) guaifenesin 100 mg/5 mL oral 200 mg PO Q4H PRN congest ion 11/07/24 Unknown History liquid (Adult Tussin Chest Congestion) hydroxyzine HCl 25 mg tablet 25 mg PO TID PRN anxiety 11/07/24 Unknown History magnesium hydroxide 400 mg/5 mL 30 ml PO DAILY PRN con stipation 11/07/24 Unknown History oral suspension (Milk of Magnesia) metformin 500 mg tablet,extended 500 mg PO DAILY 11/07 Unknown History release 24 hr ondansetron 4 mg disintegrating 4 mg PO Q6H PRN nausea and vomiting 11/07/24 Unknown History tablet polyethylene glycol 3350 17 17 g PO DAILY 11/07/24 Unk nown History gram/dose oral powder (ClearLax) sodium phosphates 19 gram-7 118 ml ID DAILY PRN consti pation 11/07/24 Unknown History gram/118 mL enema (Fleet Enema) tamsulosin 0.4 mg capsule 0.4 mg PO Q24H 11/07/24 Unkn own History Allergy/AdvReac Type Severity Reaction Status Date / Time Sulfa (Sulfonamide Allergy Unknown Verified 03/25/24 10:25 Antibiotics) Family History Mother Heart disease Father Heart disease Surgical History Status post arthroscopic knee surgery S/P bilateral foot surgery S/p bilateral carpal tunnel release S/P tonsillectomy and adenoidectomy S/P bilateral cataract extraction S/P CABG x 3 Stented coronary artery H/O right heart catheterization Social History household members: spouse Smoking Status: Former smoker how long ago did patient quit smoking: Quit when he was 44 y/o, 1/2 ppd since 10 years old. alcohol intake: never substance use type: does not use ROS Constitutional Constitutional: Reports fatigue and weakness; Denies chills or fever(s) Eyes Eyes: Denies change in vision Cardiovascular Cardiovascular: Denies chest pain Respiratory/Chest Respiratory/Chest: Denies shortness of breath at rest Gastrointestinal Gastrointestinal: Denies abdominal pain, constipation, diarrhea, nausea or vomiting Musculoskeletal Musculoskeletal: Denies arthralgias or myalgias Physical Exam Const alert, no apparent distress and average body habitus General Appearance: cooperative and comfortable HEENT normocephalic, head/scalp atraumatic, hearing grossly normal bilaterally, nasal mucous membranes and turbinates normal and moist oral mucous membranes Eyes PERRL, EOMs intact bilaterally and conjunctivae normal Neck full ROM Chest inspection of chest normal Resp normal respiratory effort, normal air movement, no use of accessory muscles and clear to auscultation bilaterally Cardio regular rate, regular rhythm, no murmurs and peripheral pulses 2+ throughout GI normal to inspection, nondistended, normoactive bowel sounds, soft to palpation,non-tender and non-distended Back/Spine normal ROM Extremity Extremity Narrative: +3-4 lower extremity pitting edema noted up to the knees. Skin no rashes or lesions noted Neuro moves all extremities and no focal motor deficits Speech: speech normal Psych mental status grossly normal Lab / Micro Data 11/07/24 13:40 11/07/24 13:40 Labs: Laboratory Results - last 24 hr 11/07/24 13:40: WBC 5.2, RBC 2.54 L, Hgb 7.2 L, Hct 24.4 L, MCV 96.1 H, MCH 28.3, MCHC 29.5 L, RDW Std Deviation 58.0 H, RDW Coeff of Jaqueline 16.5 H, Plt Count 117 L, MPV 13.0 H, Immature Gran % (Auto) 0.800, Neut % (Auto) 66.7, Lymph % (Auto) 24.4, [place] % (Auto) 6.0, Eos % (Auto) 1.7, Baso % (Auto) 0.4, Absolute Neuts (auto) 3.4, Absolute Lymphs (auto) 1.26, Nucleated RBC % 0, Sodium 138, Potassium 4.0, Chloride 102, Carbon Dioxide 23.5, Anion Gap 12, BUN 22 H, Creatinine 1.62 H, Estim Creat Clear Calc 34.78 L, Est GFR (MDRD) Non-Af 41 L, BUN/Creatinine Ratio 13.5, Glucose 120 H, Calcium 8.4, Blood Type O POSITIVE, Antibody Screen NEGATIVE, Crossmatch See Detail Micro: Microbiology 11/07/24 15:12 Stool Stool Occult Blood (JOVANY) - Final Occult Blood Positive Imaging Radiology Impression Chest X-Ray 11/07/24 15:15 IMPRESSION: 1. Limited hypoinflated exam. Cardiomegaly with central vascular prominence andsuspected trace pulmonary edema. 2. Additional description as above. Reading Location: [id number] Assessment & Plan Assessment/Plan (1) Acute on chronic anemia: (2) GI bleed: (3) Acute heart failure with preserved ejection fraction (HFpEF): PLAN: Plan Patient is an 84-year-old male who presented to [facility] ED on11/07/2024 with acute on chronic anemia and concern for GI bleed. Acute on chronic anemia with concern for GI bleed ? In the setting thrombocytopenia possibley secondary to cirrhosis, B12 deficiency, Atrophic grastrititis with acute blood loss anemia possibly secondary to peptic ulcer disease. He will need to undergo endoscopy. Charges/Coding Visit Charges Inpatient E&M: 82786 Init Hosp L3 11/07/242130 <Electronically signed by Slade Florez DO> Cosigner Signature (if applicable): CC: PANCHITO Quinteros; Dr. Andrey Mitchell DO~ Signed [facility] Work Phone: [phone] Consult note [facility] Medical Records Department [address] [place] [address] Consultation - GI 11/07/242123 MR#: [id number] Acct: [id number] Name: ANGIE DUTTON Fran Rep #:[id number] : 1940 84 From: Slade Florez DO PCP: PANCHITO Harris Status:ADM IN Location: [place] [address] HPI Consult Data Date of Consult: 11/07/24 HPI Narrative Reason for Consultation: Anemia HPI Narrative: NAGIE DUTTON, is a 84 M who presents to the emergency room with a report of anemia. Patient reportedly had blood work done this morning showed a hemoglobinof 6.2. He is on reportedly Eliquis and Plavix. He had a right hip replacementin September. He has a baseline anemia around 8. He states he has not been having black or bloody stools but he still also states that it is hard for him to see the stool given the size of his bathroom. He states [facility] and states that he is growing weaker. He notes that his legs are more swollen than normal. Patient states that sometime last night due to shortness of breath. He denied any chest pain palpitations. He denies any cough or fever. He has not been having short of breath. WBC 5.2, Hgb 7.2 L, MCV 96.1 H, MCH 28.3, Plt Count 117 L Sodium 138, Potassium 4.0, Chloride 102, Carbon Dioxide 23.5, Anion Gap 12, BUN22 H, Creatinine 1.62 H, [facility] Medical History Kidney disease GERD (gastroesophageal reflux disease) Former tobacco use HLD (hyperlipidemia) CAD (coronary artery disease) History of chronic hypertension Right leg weakness Myocardial infarct Hypertension Vertigo Home Medications ?Medication ?Instructions ?Recorded ?Last Taken ?Type clopidogrel 75 mg tablet 75 mg PO DAILY anti platelet 08/23/19 06/25/21 History isosorbide mononitrate 30 mg 15 mg PO DAILY HEART 07/2606/25/21 History tablet,extended release 24 hr gabapentin 400 mg capsule 400 mg PO BID NERVE PAIN 10/1406/25/21 History pantoprazole 20 mg tablet,delayed 20 mg PO BID GERD 06/25/21 History release simvastatin 40 mg tablet 40 mg PO DAILY CHOLESTEROL 1 08/25/20 06/24/21 History trazodone 50 mg tablet 50 mg PO QHS SLEEP 06/25/21 06/24/21 History ezetimibe 10 mg tablet 10 mg PO DAILY 09/24/23 Unkn own History apixaban 5 mg tablet (Eliquis) 5 mg PO BID #60 tabs Unknown Rx metoprolol succinate 50 mg 50 mg PO DAILY #30 tabs 11/14 Unknown Rx tablet,extended release 24 hr acetaminophen 500 mg capsule 1,000 mg PO Q8H PRN PRN f ever or 11/07/24 Unknown History pain acetaminophen 650 mg rectal 650 mg ID Q4H PRN fever or pain 11/07/24 Unknown History suppository aluminum-magnesium hydroxide 200 30 ml PO Q4H PRN dysp epsia 11/07/24 Unknown History mg-200 mg/5 mL oral suspension (MAG-AL) amiodarone 200 mg tablet 200 mg PO DAILY 11/07/24 Unk nown History amiodarone 400 mg tablet 400 mg PO DAILY 11/07/24 Unk nown History ascorbic acid (vitamin C) 500 mg 500 mg PO BID SUPPLEM ENT 11/07/24 Unknown History capsule bisacodyl 10 mg rectal suppository 10 mg ID DAILY PRN constipation 11/07/24 Unknown History docusate sodium 100 mg capsule 100 mg PO DAILY 5 Unknown History ferrous sulfate 325 mg (65 mg 325 mg PO DAILY 11/07/24 Unknown History iron) tablet (FeroSul) furosemide 20 mg tablet 20 mg PO DAILY 11/07/24 Unkn own History glucagon 1 mg solution for 1 mg IM Q20M PRN hypoglycem ia 11/07/24 Unknown History injection (Glucagon Emergency Kit) guaifenesin 100 mg/5 mL oral 200 mg PO Q4H PRN congest ion 11/07/24 Unknown History liquid (Adult Tussin Chest Congestion) hydroxyzine HCl 25 mg tablet 25 mg PO TID PRN anxiety 11/07/24 Unknown History magnesium hydroxide 400 mg/5 mL 30 ml PO DAILY PRN con stipation 11/07/24 Unknown History oral suspension (Milk of Magnesia) metformin 500 mg tablet,extended 500 mg PO DAILY 11/07 Unknown History release 24 hr ondansetron 4 mg disintegrating 4 mg PO Q6H PRN nausea and vomiting 11/07/24 Unknown History tablet polyethylene glycol 3350 17 17 g PO DAILY 11/07/24 Unk nown History gram/dose oral powder (ClearLax) sodium phosphates 19 gram-7 118 ml ID DAILY PRN consti pation 11/07/24 Unknown History gram/118 mL enema (Fleet Enema) tamsulosin 0.4 mg capsule 0.4 mg PO Q24H 11/07/24 Unkn own History Allergy/AdvReac Type Severity Reaction Status Date / Time Sulfa (Sulfonamide Allergy Unknown Verified 03/25/24 10:25 Antibiotics) Family History Mother Heart disease Father Heart disease Surgical History Status post arthroscopic knee surgery S/P bilateral foot surgery S/p bilateral carpal tunnel release S/P tonsillectomy and adenoidectomy S/P bilateral cataract extraction S/P CABG x 3 Stented coronary artery H/O right heart catheterization Social History household members: spouse Smoking Status: Former smoker how long ago did patient quit smoking: Quit when he was 44 y/o, 1/2 ppd since 10 years old. alcohol intake: never substance use type: does not use ROS Constitutional Constitutional: Reports fatigue and weakness; Denies chills or fever(s) Eyes Eyes: Denies change in vision Cardiovascular Cardiovascular: Denies chest pain Respiratory/Chest Respiratory/Chest: Denies shortness of breath at rest Gastrointestinal Gastrointestinal: Denies abdominal pain, constipation, diarrhea, nausea or vomiting Musculoskeletal Musculoskeletal: Denies arthralgias or myalgias Physical Exam Const alert, no apparent distress and average body habitus General Appearance: cooperative and comfortable HEENT normocephalic, head/scalp atraumatic, hearing grossly normal bilaterally, nasal mucous membranes and turbinates normal and moist oral mucous membranes Eyes PERRL, EOMs intact bilaterally and conjunctivae normal Neck full ROM Chest inspection of chest normal Resp normal respiratory effort, normal air movement, no use of accessory muscles and clear to auscultation bilaterally Cardio regular rate, regular rhythm, no murmurs and peripheral pulses 2+ throughout GI normal to inspection, nondistended, normoactive bowel sounds, soft to palpation,non-tender and non-distended Back/Spine normal ROM Extremity Extremity Narrative: +3-4 lower extremity pitting edema noted up to the knees. Skin no rashes or lesions noted Neuro moves all extremities and no focal motor deficits Speech: speech normal Psych mental status grossly normal Lab / Micro Data 11/07/24 13:40 11/07/24 13:40 Labs: Laboratory Results - last 24 hr 11/07/24 13:40: WBC 5.2, RBC 2.54 L, Hgb 7.2 L, Hct 24.4 L, MCV 96.1 H, MCH 28.3, MCHC 29.5 L, RDW Std Deviation 58.0 H, RDW Coeff of Jaqueline 16.5 H, Plt Count 117 L, MPV 13.0 H, Immature Gran % (Auto) 0.800, Neut % (Auto) 66.7, Lymph % (Auto) 24.4, [place] % (Auto) 6.0, Eos % (Auto) 1.7, Baso % (Auto) 0.4, Absolute Neuts (auto) 3.4, Absolute Lymphs (auto) 1.26, Nucleated RBC % 0, Sodium 138, Potassium 4.0, Chloride 102, Carbon Dioxide 23.5, Anion Gap 12, BUN 22 H, Creatinine 1.62 H, Estim Creat ClearCalc 34.78 L, Est GFR (MDRD) Non-Af 41 L, BUN/Creatinine Ratio 13.5, Glucose 120 H, Calcium 8.4, Blood Type O POSITIVE, Antibody Screen NEGATIVE, Crossmatch See Detail Micro: Microbiology 11/07/24 15:12 Stool Stool Occult Blood (JOVANY) - Final Occult Blood Positive Imaging Radiology Impression Chest X-Ray 11/07/24 15:15 IMPRESSION: 1. Limited hypoinflated exam. Cardiomegaly with central vascular prominence andsuspected trace pulmonary edema. 2. Additional description as above. Reading Location: [id number] Assessment & Plan Assessment/Plan (1) Acute on chronic anemia: (2) GI bleed: (3) Acute heart failure with preserved ejection fraction (HFpEF): PLAN: Plan Patient is an 84-year-old male who presented to [facility] ED on11/07/2024 with acute on chronic anemia and concern for GI bleed. Acute on chronic anemia with concern for GI bleed ? In the setting thrombocytopenia possibley secondary to cirrhosis, B12 deficiency, Atrophic grastrititis with acute blood loss anemia possibly secondary to peptic ulcer disease. He will need to undergo endoscopy. Charges/Coding Visit Charges Inpatient E&M: 62469 Init Hosp L3 11/07/24 2131 Cosigner Signature (if applicable): CC: PANCHITO Quinteros; Dr. Andrey Mitchell, ~ Signed [facility]03-17-2025 History and physical note Author Andrey Mitchell [facility] Note Date/Time November 07, 2024 6:5 2pm [facility] Medical Records Department [address] [place] [address] H&P Exam - Hospitalist 11/07/24 1602 MR#: [id number] Acct: [id number] Name: ANGIE DUTTON Rep #:[id number] : 1940 84 From: Andrey steen DO PCP: PANCHITO Harris Status:ADM IN Location: [facility] [id number]- [id number] HPI - General General Date of Admission: 11/07/24 Date of Service: 11/07/24 Chief Complaint: Worsening anemia HPI Narrative ANGIE DUTTON, is a 84 M who presented to [facility] ED on [facility]07[facility] from [facility] for [facility] anemia. Patient had right total hip replacement done at [facility] on 10/07. He was [facility] to a [facility] on [facility]14 and has been there since then. Hemoglobin on discharge on 10/14 was 8.8 and was again 8.8 on 10/17 when drawn at the nursing facility. Patient is on Eliquis for A-fib and Plavix for CAD. He is also on an iron supplement for iron deficiency anemia. He has had some worsening of his weakness over the past several days he reports. He also notes that his legs have felt more swollen than normal. There was concern that he had a dark bowel movement at the facility earlier today, so they kayla a CBC and his hemoglobin was 6.1. They then sent him in for further evaluation. In the ED here his repeat hemoglobin was 7.2. Stool occult test was positive. Was mildly hypotensive to the 90s systolic but otherwise in normal sinus rhythm and breathing comfortably on room air at rest and mentating appropriately. Given concern for occult GI bleed and acute on chronic anemia, hospitalist was contacted for admission. I saw the patient at bedside in the ED. Patient was mildly fatigued and pale appearing but otherwise laying back comfortably in bed and in no acute distress. Patient was alert and oriented to person and place but not time. He was answering questions with tangential responses but he otherwise denied any acute pain or discomfort. No other acute concerns at this time. [facility]LY [facility] Medical History Kidney disease GERD (gastroesophageal reflux disease) Former tobacco use HLD (hyperlipidemia) CAD (coronary artery disease) History of chronic hypertension Right leg weakness Myocardial infarct Hypertension Vertigo Home Medications ?Medication ?Instructions ?Recorded ?Last Taken ?Type clopidogrel 75 mg tablet 75 mg PO DAILY anti platelet 08/23/19 06/25/21 History isosorbide mononitrate 30 mg 15 mg PO DAILY HEART 07/2606/25/21 History tablet,extended release 24 hr gabapentin 400 mg capsule 400 mg PO BID NERVE PAIN 10/1406/25/21 History pantoprazole 20 mg tablet,delayed 20 mg PO BID GERD 06/25/21 History release simvastatin 40 mg tablet 40 mg PO DAILY CHOLESTEROL 1 08/25/20 06/24/21 History trazodone 50 mg tablet 50 mg PO QHS SLEEP 06/25/21 06/24/21 History ezetimibe 10 mg tablet 10 mg PO DAILY 09/24/23 Unkn own History apixaban 5 mg tablet (Eliquis) 5 mg PO BID #60 tabs Unknown Rx metoprolol succinate 50 mg 50 mg PO DAILY #30 tabs 11/14 Unknown Rx tablet,extended release 24 hr acetaminophen 500 mg capsule 1,000 mg PO Q8H PRN PRN f ever or 11/07/24 Unknown History pain acetaminophen 650 mg rectal 650 mg ID Q4H PRN fever or pain 11/07/24 Unknown History suppository aluminum-magnesium hydroxide 200 30 ml PO Q4H PRN dysp epsia 11/07/24 Unknown History mg-200 mg/5 mL oral suspension (MAG-AL) amiodarone 200 mg tablet 200 mg PO DAILY 11/07/24 Unk nown History amiodarone 400 mg tablet 400 mg PO DAILY 11/07/24 Unk nown History ascorbic acid (vitamin C) 500 mg 500 mg PO BID SUPPLEM ENT 11/07/24 Unknown History capsule bisacodyl 10 mg rectal suppository 10 mg ID DAILY PRN constipation 11/07/24 Unknown History docusate sodium 100 mg capsule 100 mg PO DAILY 5 Unknown History ferrous sulfate 325 mg (65 mg 325 mg PO DAILY 11/07/24 Unknown History iron) tablet (FeroSul) furosemide 20 mg tablet 20 mg PO DAILY 11/07/24 Unkn own History glucagon 1 mg solution for 1 mg IM Q20M PRN hypoglycem ia 11/07/24 Unknown History injection (Glucagon Emergency Kit) guaifenesin 100 mg/5 mL oral 200 mg PO Q4H PRN congest ion 11/07/24 Unknown History liquid (Adult Tussin Chest Congestion) hydroxyzine HCl 25 mg tablet 25 mg PO TID PRN anxiety 11/07/24 Unknown History magnesium hydroxide 400 mg/5 mL 30 ml PO DAILY PRN con stipation 11/07/24 Unknown History oral suspension (Milk of Magnesia) metformin 500 mg tablet,extended 500 mg PO DAILY 11/07 Unknown History release 24 hr ondansetron 4 mg disintegrating 4 mg PO Q6H PRN nausea and vomiting 11/07/24 Unknown History tablet polyethylene glycol 3350 17 17 g PO DAILY 11/07/24 Unk nown History gram/dose oral powder (ClearLax) sodium phosphates 19 gram-7 118 ml ID DAILY PRN consti pation 11/07/24 Unknown History gram/118 mL enema (Fleet Enema) tamsulosin 0.4 mg capsule 0.4 mg PO Q24H 11/07/24 Unkn own History Allergy/AdvReac Type Severity Reaction Status Date / Time Sulfa (Sulfonamide Allergy Unknown Verified 03/25/24 10:25 Antibiotics) Family History Mother Heart disease Father Heart disease Surgical History Status post arthroscopic knee surgery S/P bilateral foot surgery S/p bilateral carpal tunnel release S/P tonsillectomy and adenoidectomy S/P bilateral cataract extraction S/P CABG x 3 Stented coronary artery H/O right heart catheterization Social History household members: spouse Smoking Status: Former smoker how long ago did patient quit smoking: Quit when he was 44 y/o, 1/2 ppd since 10 years old. alcohol intake: never substance use type: does not use ROS Constitutional Constitutional: Reports fatigue and weakness; Denies chills or fever(s) Eyes Eyes: Denies change in vision Cardiovascular Cardiovascular: Denies chest pain Respiratory/Chest Respiratory/Chest: Denies shortness of breath at rest Gastrointestinal Gastrointestinal: Denies abdominal pain, constipation, diarrhea, nausea or vomiting Musculoskeletal Musculoskeletal: Denies arthralgias or myalgias Vital Signs Vital Signs Vital Signs: 11/07/24 13:32 11/07/24 13:36 11/07/24 14:36 Temperature 98.6 F 98.1 F Temperature Source Oral Oral Pulse Rate 72 61 Respiratory Rate 13 18 Respiratory Effort Short of Breath Blood Pressure 118/75 98/55 L Blood Pressure Mean 89 69 Pulse Ox 94 98 Oxygen Delivery Method Room Air Room Air 11/07/24 15:00 11/07/24 15:55 Temperature 98.1 F Temperature Source Oral Pulse Rate 67 65 Respiratory Rate 19 H 18 Respiratory Effort Blood Pressure 106/71 84/70 L Blood Pressure Mean 82 74 Pulse Ox 95 95 Oxygen Delivery Method Room Air Room Air Weight Weight: 85.2 kg Body Mass Index (BMI) 28.5 Physical Exam Const alert, no apparent distress and average body habitus Constitutional Narrative: Elderly male, mildly fatigued and pale appearing, alert and oriented to person and place but not time, laying back comfortably in bed and answering questions with tangential responses, otherwise in no acute distress. General Appearance: cooperative and comfortable HEENT normocephalic, head/scalp atraumatic, hearing grossly normal bilaterally, nasal mucous membranes and turbinates normal and moist oral mucous membranes Eyes PERRL, EOMs intact bilaterally and conjunctivae normal Neck full ROM Chest inspection of chest normal Resp normal respiratory effort, normal air movement, no use of accessory muscles and clear to auscultation bilaterally Cardio regular rate, regular rhythm, no murmurs and peripheral pulses 2+ throughout GI normal to inspection, nondistended, normoactive bowel sounds, soft to palpation,non-tender and non-distended Back/Spine normal ROM Extremity Extremity Narrative: +3-4 lower extremity pitting edema noted up to the knees. Skin no rashes or lesions noted Neuro moves all extremities and no focal motor deficits Speech: speech normal Psych mental status grossly normal Results Lab / Micro Data 11/07/24 13:40 11/07/24 13:40 Labs: Laboratory Results - last 24 hr 11/07/24 13:40: WBC 5.2, RBC 2.54 L, Hgb 7.2 L, Hct 24.4 L, MCV 96.1 H, MCH 28.3, MCHC 29.5 L, RDW Std Deviation 58.0 H, RDW Coeff of Jaqueline 16.5 H, Plt Count 117 L, MPV 13.0 H, Immature Gran % (Auto) 0.800, Neut % (Auto) 66.7, Lymph % (Auto) 24.4, [place] % (Auto) 6.0, Eos % (Auto) 1.7, Baso % (Auto) 0.4, Absolute Neuts (auto) 3.4, Absolute Lymphs (auto) 1.26, Nucleated RBC % 0, Sodium 138, Potassium 4.0, Chloride 102, Carbon Dioxide 23.5, Anion Gap 12, BUN 22 H, Creatinine 1.62 H, Estim Creat Clear Calc 34.78 L, Est GFR (MDRD) Non-Af 41 L, BUN/Creatinine Ratio 13.5, Glucose 120 H, Calcium 8.4, Crossmatch See Detail Micro: Microbiology 11/07/24 15:12 Stool Stool Occult Blood (JOVANY) - Final Occult Blood Positive Assessment & Plan Assessment/Plan (1) Acute on chronic anemia: (2) GI bleed: (3) Acute heart failure with preserved ejection fraction (HFpEF): PLAN: Plan Patient is an 84-year-old male who presented to [facility] ED on11/07/2024 with acute on chronic anemia and concern for GI bleed. 1. Acute on chronic anemia with concern for GI bleed ? Admit under inpatient status to PCU. GI consulted. May have minor GI bleed but suspect some degree of hemodilution of hemoglobin from volume overload as well. BUN not elevated and no worsening of acid reflux symptoms per patient recently, lower concern for upper GI bleed. Notably is on oral iron which may have been the cause of a dark stool at his facility. Will give 1 unit of blood and recheck hemoglobin tonight. Holding home Eliquis and Plavix. Continue homep.o. Protonix 20 mg twice daily. N.p.o. at midnight for possible scope tomorrow. Appreciate further GI recommendations. 2. Acute HFpEF ? Last echo in 09/2023 showed EF 65%, mild eccentric LV hypertrophy, stage II diastolic dysfunction, mild pulmonary hypertension. Patient with +3-4 lower extremity edema on exam and chest x-ray with cardiomegaly with central vascular prominence and suspected trace pulmonary edema. Repeat echo ordered. Given 1 dose of IV Lasix 40 mg in the ED and will treat with IV Lasix 40 mg twice daily for now, monitor daily BMP and urine output. 3. Mild PEG ? Creatinine 1.61 on admit, baseline appears to be around 1.1. Suspect due to cardiorenal syndrome in setting of acute HFpEF as noted above. Treating with IVLasix as noted above, monitor BMP and urine output. 4. Acute on chronic debility with recent right total hip replacement ? PT/OT/case management consulted. Patient had recent total hip replacement done at [facility] on 10/07. Appears he was living at home prior to that and hasnow been in [facility] since then but other details unclear. Appreciate therapy and case management recommendations. 5. Paroxysmal A-fib, history of CAD with CABG, hypertension, hyperlipidemia ? Was hospitalized here in September 2023 for A-fib with RVR. Cardiology followed and it appears she was discharged on Toprol. He now has amiodarone on her medication list, unclear on when this was started. Will continue both amiodarone and Toprol. Has history of CABG x 3, appears to be remote. Okay to hold home Eliquis and Plavix for now. Continue home nitrate and statin. 6. Concern for cognitive impairment ? Patient alert and oriented x 2 in ED. Appeared to be attempting to answer questions appropriately but had very tangential responses. Suspect he may have some degree of underlying cognitive impairment. Monitor. Chronic medical conditions: ? Type 2 diabetes mellitus with neuropathy: Hold home metformin. Will treat with sliding-scale insulin with meals while inpatient, adjust as needed. Continue home gabapentin. ? BPH with obstructive symptoms: Continue home Flomax. ? GERD: Continue home PPI. DVT prophylaxis: SCDs CODE STATUS: Full code, unverified Expected disposition: Back to [facility], 2 to 3 days Total clinical time spent by myself addressing the patient's medical issues, reviewing all the data, and collaborating with patient's care team: 75 minutes. Charges/Coding Visit Charges Inpatient E&M: 94137 Init Hosp L3 11/07/24 1852 <Electronically signed by Andrey Mitchell DO> Cosigner Signature (if applicable): CC: PANCHITO Quinteros; Dr. Andrey Mitchell DO~ Signed [facility] Work Phone: [phone] 193-652803-17-2025 History and physical note [facility] Medical Records Department [address] [place] [address] H&P Exam - Hospitalist 11/07/24 1602 MR#: [id number] Acct: [id number] Name: ANGIE DUTTON Rep #:[id number] : 1940 84 From: Andrey steen DO PCP: PANCHITO Harris Status:ADM IN Location: [facility] [id number]- [id number] HPI - General General Date of Admission: 11/07/24 Date of Service: 11/07/24 Chief Complaint: Worsening anemia HPI Narrative ANGIE DUTTON, is a 84 M who presented to [facility] ED on 11/07/[facility]24 from [facility] homefor worsening anemia. Patient had right total hip replacement done at [facility] on 10/07. He was [facility] to a [facility] on [facility]14 and has been there since then. Hemoglobin on dischargeon 10/14 was 8.8 and was again 8.8 on 10/17 when drawn at the nursing facility. Patient is on Eliquisfor A-fib and Plavix for CAD. He is also on an iron supplement for iron deficiency anemia. He has had some worsening of his weakness over the past several days he reports. He also notes that his legshave felt more swollen than normal. There was concern that he had a dark bowel movement at the facility earlier today, so they kayla a CBC and his hemoglobin was 6.1. They then sent him in for furtherevaluation. In the ED here his repeat hemoglobin was 7.2. Stool occult test was positive. Was mildly hypotensive to the 90s systolic but otherwise in normal sinus rhythm and breathing comfortably on room air at rest and mentating appropriately. Given concern for occult GI bleed and acute on chronicanemia, hospitalist was contacted for admission. I saw the patient at bedside in the ED. Patient was mildly fatigued and pale appearing but otherwise laying back comfortably in bed and in no acute distress. Patient was alert and oriented to person and place but not time. He was answering questions with tangential responses but he otherwise deniedany acute pain or discomfort. No other acute concerns at this time. [facility] Medical History Kidney disease GERD (gastroesophageal reflux disease) Former tobacco use HLD (hyperlipidemia) CAD (coronary artery disease) History of chronic hypertension Right leg weakness Myocardial infarct Hypertension Vertigo Home Medications ?Medication ?Instructions ?Recorded ?Last Taken ?Type clopidogrel 75 mg tablet 75 mg PO DAILY anti platelet 08/23/19 06/25/21 History isosorbide mononitrate 30 mg 15 mg PO DAILY HEART 07/2606/25/21 History tablet,extended release 24 hr gabapentin 400 mg capsule 400 mg PO BID NERVE PAIN 10/1406/25/21 History pantoprazole 20 mg tablet,delayed 20 mg PO BID GERD 06/25/21 History release simvastatin 40 mg tablet 40 mg PO DAILY CHOLESTEROL 1 08/25/20 06/24/21 History trazodone 50 mg tablet 50 mg PO QHS SLEEP 06/25/21 06/24/21 History ezetimibe 10 mg tablet 10 mg PO DAILY 09/24/23 Unkn own History apixaban 5 mg tablet (Eliquis) 5 mg PO BID #60 tabs Unknown Rx metoprolol succinate 50 mg 50 mg PO DAILY #30 tabs 11/14 Unknown Rx tablet,extended release 24 hr acetaminophen 500 mg capsule 1,000 mg PO Q8H PRN PRN f ever or 11/07/24 Unknown History pain acetaminophen 650 mg rectal 650 mg ID Q4H PRN fever or pain 11/07/24 Unknown History suppository aluminum-magnesium hydroxide 200 30 ml PO Q4H PRN dysp epsia 11/07/24 Unknown History mg-200 mg/5 mL oral suspension (MAG-AL) amiodarone 200 mg tablet 200 mg PO DAILY 11/07/24 Unk nown History amiodarone 400 mg tablet 400 mg PO DAILY 11/07/24 Unk nown History ascorbic acid (vitamin C) 500 mg 500 mg PO BID SUPPLEM ENT 11/07/24 Unknown History capsule bisacodyl 10 mg rectal suppository 10 mg ID DAILY PRN constipation 11/07/24 Unknown History docusate sodium 100 mg capsule 100 mg PO DAILY 5 Unknown History ferrous sulfate 325 mg (65 mg 325 mg PO DAILY 11/07/24 Unknown History iron) tablet (FeroSul) furosemide 20 mg tablet 20 mg PO DAILY 11/07/24 Unkn own History glucagon 1 mg solution for 1 mg IM Q20M PRN hypoglycem ia 11/07/24 Unknown History injection (Glucagon Emergency Kit) guaifenesin 100 mg/5 mL oral 200 mg PO Q4H PRN congest ion 11/07/24 Unknown History liquid (Adult Tussin Chest Congestion) hydroxyzine HCl 25 mg tablet 25 mg PO TID PRN anxiety 11/07/24 Unknown History magnesium hydroxide 400 mg/5 mL 30 ml PO DAILY PRN con stipation 11/07/24 Unknown History oral suspension (Milk of Magnesia) metformin 500 mg tablet,extended 500 mg PO DAILY 11/07 Unknown History release 24 hr ondansetron 4 mg disintegrating 4 mg PO Q6H PRN nausea and vomiting 11/07/24 Unknown History tablet polyethylene glycol 3350 17 17 g PO DAILY 11/07/24 Unk nown History gram/dose oral powder (ClearLax) sodium phosphates 19 gram-7 118 ml ID DAILY PRN consti pation 11/07/24 Unknown History gram/118 mL enema (Fleet Enema) tamsulosin 0.4 mg capsule 0.4 mg PO Q24H 11/07/24 Unkn own History Allergy/AdvReac Type Severity Reaction Status Date / Time Sulfa (Sulfonamide Allergy Unknown Verified 03/25/24 10:25 Antibiotics) Family History Mother Heart disease Father Heart disease Surgical History Status post arthroscopic knee surgery S/P bilateral foot surgery S/p bilateral carpal tunnel release S/P tonsillectomy and adenoidectomy S/P bilateral cataract extraction S/P CABG x 3 Stented coronary artery H/O right heart catheterization Social History household members: spouse Smoking Status: Former smoker how long ago did patient quit smoking: Quit when he was 44 y/o, 1/2 ppd since 10 years old. alcohol intake: never substance use type: does not use ROS Constitutional Constitutional: Reports fatigue and weakness; Denies chills or fever(s) Eyes Eyes: Denies change in vision Cardiovascular Cardiovascular: Denies chest pain Respiratory/Chest Respiratory/Chest: Denies shortness of breath at rest Gastrointestinal Gastrointestinal: Denies abdominal pain, constipation, diarrhea, nausea or vomiting Musculoskeletal Musculoskeletal: Denies arthralgias or myalgias Vital Signs Vital Signs Vital Signs: 11/07/24 13:32 11/07/24 13:36 11/07/24 14:36 Temperature 98.6 F 98.1 F Temperature Source Oral Oral Pulse Rate 72 61 Respiratory Rate 13 18 Respiratory Effort Short of Breath Blood Pressure 118/75 98/55 L Blood Pressure Mean 89 69 Pulse Ox 94 98 Oxygen Delivery Method Room Air Room Air 11/07/24 15:00 11/07/24 15:55 Temperature 98.1 F Temperature Source Oral Pulse Rate 67 65 Respiratory Rate 19 H 18 Respiratory Effort Blood Pressure 106/71 84/70 L Blood Pressure Mean 82 74 Pulse Ox 95 95 Oxygen Delivery Method Room Air Room Air Weight Weight: 85.2 kg Body Mass Index (BMI) 28.5 Physical Exam Const alert, no apparent distress and average body habitus Constitutional Narrative: Elderly male, mildly fatigued and pale appearing, alert and oriented to person and place but not time, laying back comfortably in bed and answering questions with tangential responses, otherwise in no acute distress. General Appearance: cooperative and comfortable HEENT normocephalic, head/scalp atraumatic, hearing grossly normal bilaterally, nasal mucous membranes and turbinates normal and moist oral mucous membranes Eyes PERRL, EOMs intact bilaterally and conjunctivae normal Neck full ROM Chest inspection of chest normal Resp normal respiratory effort, normal air movement, no use of accessory muscles and clear to auscultation bilaterally Cardio regular rate, regular rhythm, no murmurs and peripheral pulses 2+ throughout GI normal to inspection, nondistended, normoactive bowel sounds, soft to palpation,non-tender and non-distended Back/Spine normal ROM Extremity Extremity Narrative: +3-4 lower extremity pitting edema noted up to the knees. Skin no rashes or lesions noted Neuro moves all extremities and no focal motor deficits Speech: speech normal Psych mental status grossly normal Results Lab / Micro Data 11/07/24 13:40 11/07/24 13:40 Labs: Laboratory Results - last 24 hr 11/07/24 13:40: WBC 5.2, RBC 2.54 L, Hgb 7.2 L, Hct 24.4 L, MCV 96.1 H, MCH 28.3, MCHC 29.5 L, RDW Std Deviation 58.0 H, RDW Coeff of Jaqueline 16.5 H, Plt Count 117 L, MPV 13.0 H, Immature Gran % (Auto) 0.800, Neut % (Auto) 66.7, Lymph % (Auto) 24.4, [place] % (Auto) 6.0, Eos % (Auto) 1.7, Baso % (Auto) 0.4, Absolute Neuts (auto) 3.4, Absolute Lymphs (auto) 1.26, Nucleated RBC % 0, Sodium 138, Potassium 4.0, Chloride 102, Carbon Dioxide 23.5, Anion Gap 12, BUN 22 H, Creatinine 1.62 H, Estim Creat ClearCalc 34.78 L, Est GFR (MDRD) Non-Af 41 L, BUN/Creatinine Ratio 13.5, Glucose 120 H, Calcium 8.4, Crossmatch See Detail Micro: Microbiology 11/07/24 15:12 Stool Stool Occult Blood (JOVANY) - Final Occult Blood Positive Assessment & Plan Assessment/Plan (1) Acute on chronic anemia: (2) GI bleed: (3) Acute heart failure with preserved ejection fraction (HFpEF): PLAN: Plan Patient is an 84-year-old male who presented to [facility] ED on11/07/2024 with acute on chronic anemia and concern for GI bleed. 1. Acute on chronic anemia with concern for GI bleed ? Admit under inpatient status to PCU. GI consulted. May have minor GI bleed but suspect some degree of hemodilution of hemoglobin from volume overload as well. BUN not elevated and no worsening of acid reflux symptoms per patient recently, lower concern for upper GI bleed. Notably is on oral iron which may have been the cause of a dark stool at his facility. Will give 1 unit of blood and recheck hemoglobin tonight. Holding home Eliquis and Plavix. Continue homep.o. Protonix 20 mg twice daily. N.p.o. at midnight for possible scope tomorrow. Appreciate further GI recommendations. 2. Acute HFpEF ? Last echo in 09/2023 showed EF 65%, mild eccentric LV hypertrophy, stage II diastolic dysfunction,mild pulmonary hypertension. Patient with +3-4 lower extremity edema on exam and chest x-ray with cardiomegaly with central vascular prominence and suspected trace pulmonary edema. Repeat echo ordered. Given 1 dose of IV Lasix 40 mg in the ED and will treat with IV Lasix 40 mg twice daily for now, monitor daily BMP and urine output. 3. Mild PEG ? Creatinine 1.61 on admit, baseline appears to be around 1.1. Suspect due to cardiorenal syndrome in setting of acute HFpEF as noted above. Treating with IVLasix as noted above, monitor BMP and urine output. 4. Acute on chronic debility with recent right total hip replacement ? PT/OT/case management consulted. Patient had recent total hip replacement done at [facility] on 10/07. Appears he was living at home prior to that and [facility] but other details unclear. Appreciate therapy and case management recommendations. 5. Paroxysmal A-fib, history of CAD with CABG, hypertension, hyperlipidemia ? Was hospitalized here in September 2023 for A-fib with RVR. Cardiology followed and it appears shewas discharged on Toprol. He now has amiodarone on her medication list, unclear on when this was started. Will continue both amiodarone and Toprol. Has history of CABG x 3, appears to be remote. Okayto hold home Eliquis and Plavix for now. Continue home nitrate and statin. 6. Concern for cognitive impairment ? Patient alert and oriented x 2 in ED. Appeared to be attempting to answer questions appropriatelybut had very tangential responses. Suspect he may have some degree of underlying cognitive impairment. Monitor. Chronic medical conditions: ? Type 2 diabetes mellitus with neuropathy: Hold home metformin. Will treat with sliding-scale insulin with meals while inpatient, adjust as needed. Continue home gabapentin. ? BPH with obstructive symptoms: Continue home Flomax. ? GERD: Continue home PPI. DVT prophylaxis: SCDs CODE STATUS: Full code, unverified Expected disposition: Back to [facility], 2 to 3 days Total clinical time spent by myself addressing the patient's medical issues, reviewing all the data, and collaborating with patient's care team: 75 minutes. Charges/Coding Visit Charges Inpatient E&M: 05323 Init Hosp L3 11/07/24 1852 Cosigner Signature (if applicable): CC: PANCHITO Quinteros; Dr. Andrey Mitchell, DO~ Signed [facility]03-17-2025 Evaluation note* Diagnosis Onset Date Resolution Status Admit Date Acute heart failure with preserved ejection fraction (HFpEF) acute November 07, 2024 4:06pm Anticoagulated acute October 4:06pm GI bleed acute November 07 4:06pm Acute on chronic anemia chronic [facility] 2024 4:06pm [facility] Work Phone: 1(552) 794-366903-17-2025 Evaluation note* Diagnosis Onset Date Resolution Status Admit Date Acute heart failure with preserved ejection fraction (HFpEF) resolved November 07, 2024 4:06pm Acute on chronic anemia resolved [facility] 2024 4:06pm GI bleed resolved November 07 4:06pm Anticoagulated inactive October 4:06pm [facility] Work Phone: 1(465) 708-536803-17-2025 Evaluation note* Diagnosis Onset Date Resolution Status Admit Date Acute heart failure with preserved ejection fraction (HFpEF) resolved November 07, 2024 4:06pm Acute on chronic anemia resolved 2024 4:06pm GI bleed resolved November 07 4:06pm Anticoagulated inactive October 4:06pm Chest pain acute November 25 5:39pm Elevated troponin acute November 252024 5:39pm [facility] Work Phone: 1(676) 941-656003-17-2025 Evaluation note* Diagnosis Onset Date Resolution Status Admit Date Acute heart failure with preserved ejection fraction (HFpEF) resolved November 07, 2024 4:06pm Acute on chronic anemia resolved [facility] 2024 4:06pm GI bleed resolved November 07 4:06pm Anticoagulated inactive October 4:06pm Chest pain resolved November 25 5:39pm Elevated troponin inactive November 252024 5:39pm [facility] Work Phone: 1(408) 684-447203-17-2025 Radiology Diagnostic study note [facility] [address] [place] [address] Chest 1 View (Portable) MR#: [id number] Acct: [id number] Name: ANGIE DUTTON Rep #: [id number] : 1940 M 84 From: Arlet Salinas MD PCP: PANCHITO Harris Status: ADM IN Study:Chest 1 View (Portable) Date of Exam: 11/07/24 Exam# [id number] Ordering Dr: Fran Mcclain DO PROCEDURE: CHEST 1 VIEW (PORTABLE) (RADCXPA_P), 11/07/2024 REASON FOR EXAM: DYSPNEA TECHNIQUE: A single portable AP view of the chest was obtained. COMPARISON: 09/24/2023 FINDINGS: Heart: Grossly similar mild cardiomegaly, probably exacerbated by hypoinflation and portable technique. Mediastinum: Sternotomy. Central vascular prominence. Lungs/pleura: Hypoinflation with vascular crowding. No convincing focal consolidation. Similar chronic blunting of the left costophrenic sulcus, possible atelectasis/scarring, prominent extrapleural fat, pleural thickening,or trace to small pleural effusion. Subtle Helen B lines on the right are new from prior. No sizeable pleural effusion or visible pneumothorax. Bones: Suspect demineralization. Lines and support devices: None. RAD/Chest 1 View (Portable) IMPRESSION: 1. Limited hypoinflated exam. Cardiomegaly with central vascular prominence andsuspected trace pulmonary edema. 2. Additional description as above. Reading Location: [id number] CC: SLEEVE WHEEL MAKER Valery Quinteros; Dr. Ellyn Mcclain DO ~ Health Plan Advisor: Signed [facility]03-11-2025 Telephone encounter Note* Telephone Encounter - Lauren Campbell LPN - 11/01/2024 9:42 AM EDT Lab orders faxed as requested. Lauren Campbell LPN [facility]03-11-2025 Miscellaneous Notes* Telephone Encounter - Lauren Campbell LPN - 11/01/2024 9:42 AM EDT Lab orders faxed as requested. Lauren Campbell LPN * Telephone Encounter - Lauren Campbell LPN - 10/31/2024 3:40 PM EDT Orders sent in separate encounter. Will fax once signed. Lauren Campbell LPN * Telephone Encounter - Belle Howe - 10/31/2024 3:28 PM EDT Received call from [facility] asking for labs scheduled for 11/15 to be faxed to them. They can draw and have labs avail for office visit. Please fax lab order to [phone] documented [facility] Telephone encounter Note * Telephone Encounter - Almas Melgar RN - 10/31/2024 3:51 PM EDT Returned call. Woman that answered the phone had called lab, orders were from hemotology. She called that office for the answer. [facility]03-10-2025 Miscellaneous Notes* Telephone Encounter - Almas Melgar RN - 10/31/2024 3:51 PM EDT Returned call. Woman that answered the phone had called lab, orders were from hemotology. She called that office for the answer. * Telephone Encounter - Ashli Dietrich RN - 10/31/2024 2:07 PM EDT Someone from [facility] calling (message breaks with callers name). Sees on pt's AVS that he needs labs drawn on November 15. Asking what labs they are and if they can draw them. Ph. [phone] documented in [facility] Telephone encounter Note * Telephone Encounter - Lauren Campbell LPN - 10/31/2024 3:40 PM EDT Orders sent in separate encounter. Will fax once signed. Lauren Campbell LPN [facility]03-10-2025 Telephone encounter Note* Telephone Encounter - Belle Howe - 10/31/2024 3:28 PM EDT Received call from [facility] asking for labs scheduled for 11/15 to be faxed to them. They can draw and have labs avail for office visit. Please fax lab order to [phone] [facility] Work Phone: 1(526) 779-576903-10-2025 Telephone encounter Note* Telephone Encounter - Ashli Dietrich RN - 10/31/2024 2:07 PM EDT Someone from [facility] calling (message breaks with callers name). Sees on pt's AVS that he needs labs drawn on November 15. Asking what labs they are and if they can draw them. Ph. [phone] [facility]03[facility]06[facility] History of Present illness Narrative* Almas Melgar RN - 10/27/2024 2:48 PM EST Post-op Office Visit Angie Dutton 84 year old October 20, 2024 12:38 PM Surgery Date: 10/07/24 History: Angie Dutton Is now 2 weeks out from Right Anterior-Based PARAS. Post-operative course has been without complication. No readmission/complications Subjective: Patient reports 0/10 pain. Overall is doing well. - ambulatory aid Oxycodone opioid pain medication per facility paperwork Objective: Ambulates with walker per pt. Was able to sit to stand for incision exam. Incision well-approximated, no drainage, normal tereza-incisional erythema; cleaned area and removed sutures and tutu; redressed with xeroform a proximal end of incision and telfa; please keep dressing intact for 48 hours then may remove and shower with soap and water. Steri strips will fall off on their own. No lotions to area. Full ROM not tested do to early post-operative period, but smaller arcs of motion fluid and comfortable Distally DP/PT palpable Distally S/S/SP/DP/T intact at baseline Distally DF/EHL/PF intact at baseline Negative vianca/calf tenderness Xrays: Well aligned total hip replacement in appropriate position with no evidence of loosening. Assessment and Plan: Angie Dutton is here for a first post-op appointment, overall doing well. -Patient NEEDS ICE TO INCISION AND ELEVATION OF FOOT ABOVE HEART, the area is very swollen that canbe relieved with simple ice and elevation; rest, and use of non-narcotic analgesia as needed; may continue use of prn oxycodone -discussed therapy -TDWB on operative extremity until follow up with Dr Alonzo -reinforced posterior precautions through 8 weeks: avoid extremes of flexion, internal rotation, and adduction -continue ankle pumps and dvt ppx through 4 weeks -will see back at 3 week appointment for clinical exam and imaging -discussed red flag symptoms of acutely increasing pain, new erythema, new swelling, drainage, shortness of breath Almas Melgar RN (Under Ryan Alonzo MD) Orthopaedic Surgery documented in [facility] Telephone encounter Note * Telephone Encounter - Aretha Guevara - 10/21/2024 8:24 AM EST Spoke with patient's care facility and rescheduled for 10/27/2024 [facility]02-28-2025 Miscellaneous Notes* Telephone Encounter - Aretha Guevara - 10/21/2024 8:24 AM EST Spoke with patient's care facility and rescheduled for 10/27/2024 * Telephone Encounter - Aretha Guevara - 10/21/2024 7:07 AM EST Patient on the wait list of the following FACILITY NEEDS TO RESCHED POST OP APPT ON 10-25-24 DUE TO TRANSPORTATION THEY CAN BRING THE PATIENT LATER IN THE DAY IF ANY AVAIL PLEASE CONTACT FACILITY FOR APPT. RESCHED THANKS [facility]ITA AT [facility] [phone] THANKS Aretha Guevara documented in this encounterThe [facility]02-28-2025 Telephone encounter Note * Telephone Encounter - Aretha Guevara - 10/21/2024 7:07 AM EST Patient on the wait list of the following FACILITY NEEDS TO RESCHED POST OP APPT ON 10-25-24 DUE TO TRANSPORTATION THEY CAN BRING THE PATIENT LATER IN THE DAY IF ANY AVAIL PLEASE CONTACT FACILITY FOR APPT. RESCHED THANKS SANGITA AT [facility] [phone] THANKS Aretha Guevara [facility]02-27-2025 [facility]02-[facility]-20[facility] History of Present illness Narrative* Almas Melgar, NITA - 10/20/2024 12:38 PM EST Post-op Office Visit Angie Fran Dutton 84 year old October 20, 2024 12:38 PM Surgery Date: 10/07/24 History: Angie Dutton Is now 2 weeks out from Right Anterior-Based PARAS. Post-operative course has been without complication. No readmission/complications Subjective: Patient reports 0/10 pain. Overall is doing well. - ambulatory aid Oxycodone opioid pain medication per facility paperwork; patient states that he does have significant pain that has made him weep. Objective: Ambulates with walker per pt. Was able to sit to stand for incision exam. Incision well-approximated, no drainage, normal tereza-incisional erythema; sutures and tutu intact; Dr Alonzo in room to access and redress; please keep dressing intact- waterproof bandage Silverlon applied and ANAMARIA wrap for compression; may remove if soiled; Silverlon will be removed in officenext Thursday Full ROM not tested do to early post-operative period, but smaller arcs of motion fluid and comfortable Distally DP/PT palpable Distally S/S/SP/DP/T intact at baseline Distally DF/EHL/PF intact at baseline Negative vianca/calf tenderness Xrays: Well aligned total hip replacement in appropriate position with no evidence of loosening. Assessment and Plan: Angie Dutton is here for a first post-op appointment, overall doing well. -continued ice, rest, and use of non-narcotic analgesia as needed; may continue use of prn oxycodone -discussed therapy -TDWB on operative extremity until follow up with Dr Alonzo -reinforced posterior precautions through 8 weeks: avoid extremes of flexion, internal rotation, and adduction -continue ankle pumps and dvt ppx through 4 weeks -will see back at 1 week appointment for clinical exam and staple removal -discussed red flag symptoms of acutely increasing pain, new erythema, new swelling, drainage, shortness of breath Almas Melgar RN (Under Ryan Alonzo MD) Orthopaedic Surgery documented in [facility] encounterThe [facility]02-[facility] History of Present illness Narrative* Ashli Barrientos Tech - 10/20/2024 12:30 PM EST Radiology Service Progress Note PATIENT NAME: Angie Dutton DATE OF SERVICE: October 20, 2024 TIME: 12:38 PM PATIENT IDENTITY VERIFICATION COMPLETED USING TWO (2) IDENTIFIERS: Name and Date of confirmedby patient verbally. FALL SCREENING: Has the patient had 2 falls in the last year or 1 fall with injury or currently using an Ambulatory Assistive Device (Walker, Cane, Wheelchair, Crutches, etc.)? Yes, Patient High Riskfor Falls What interventions were put in place to prevent falls during this visit? Yellow Falls Risk Wristband Applied, Instructed Patient to Call for Help if Needed, Offered Assistance with Transfers/Clothing, Instructed Patient to Remain Seated (Not on Exam Table) Until Exam, and Increased Observations by Caregivers PATIENT GENDER DATA: Assigned male at PATIENT RELEVANT IMPLANT DATA REVIEWED: Not Applicable PATIENT PRESENTS WITH AN IMPLANTABLE OR ATTACHED GAS TREATER: No RADIOLOGY DEPARTMENT: General X-ray: Exam(s) Completed: Pelvis X-Ray: Pelvis with Hip Right PERIPHERAL IV DATA: Not applicable SIGNED BY: Jluis Hodge October 20, 2024 12:38 PM documented in this encounterThe [facility]02-27-2025 NoteHNO ID: [id number] Author: ASHLI BARRIENTOS Tech Service: ? Author Type: Spinning Lathe Operator Type: Progress Notes Filed: 10/20/2024 12:40 Note Text: Radiology Service Progress Note PATIENT NAME: Angie Dutton DATE OF SERVICE: October 20, 2024 TIME: 12:38 PM PATIENT IDENTITY VERIFICATION COMPLETED USING TWO (2) IDENTIFIERS: Name and Date of confirmed by patient verbally. FALL SCREENING: Has the patient had 2 falls in the last year or 1 fall with injury or currently using an Ambulatory Assistive Device (Walker, Cane, Wheelchair, Crutches, etc.)? Yes, Patient High Risk for Falls What interventions were put in place to prevent falls during this visit? Yellow Falls Risk Wristband Applied, Instructed Patient to Call for Help if Needed, Offered Assistance with Transfers/Clothing, Instructed Patient to Remain Seated (Not on Exam Table) Until Exam, and Increased Observations by Caregivers PATIENT GENDER DATA: Assigned male at PATIENT RELEVANT IMPLANT DATA REVIEWED: Not Applicable PATIENT PRESENTS WITH AN IMPLANTABLE OR ATTACHED GAS TREATER: No RADIOLOGY DEPARTMENT: General X-ray: Exam(s) Completed: Pelvis X-Ray: Pelvis with Hip Right PERIPHERAL IV DATA: Not applicable SIGNED BY: Jluis Hodge October 20, 2024 12:38 PMLakehealth Tripoint Medical [id number] NoteHNO ID: [id number] Author: YURIY SOLOMON MD Service: General Internal Medicine Author Type: Physician Type: Progress Notes Filed: 10/14/2024 13:55 Note Text: INPATIENT PROGRESS NOTES Patient Name: Angie Dutton DATE of SERVICE: 10/14/2024 8:05 PRIMARY SERVICE: medicine INTERVAL HPI: Uneventful night, pain is fairly control no palpitation or sob, fair po intake L side abdominal discomfort, no bowel movement ASSESSMENT AND PLAN: Osteoarthritis, status post right PARAS, Coronary artery disease, continue statin SVT/ A fib with RVR, continue B bryan Hypertension stable Hyperlipidemia CKD stage III avoid nephrotoxic drug GERD ITP Constipation change stool softner Discussed with ortho Ok to discharge to rehab PERTINENT ROS: All other reviewed and negative other than HPI. MEDICATIONS: Current Facility-Administered Medications Medication Dose Route Frequency isosorbide mononitrate ER 15 mg tab(s) (IMDUR) 15 mg ORAL DAILY simvastatin 40 mg tab(s) (ZOCOR) 40 mg ORAL AT BEDTIME metFORMIN ER 500 mg tab(s) (GLUCOPHAGE XR) 500 mg ORAL DAILY WITH BREAKFAST pantoprazole DR 40 mg tab(s) (PROTONIX) 40 mg ORAL DAILY (6 AM) gabapentin 400 mg cap(s) (NEURONTIN) 400 mg ORAL BID tamsulosin 0.4 mg cap(s) (FLOMAX) 0.4 mg ORAL DAILY (7 PM) acetaminophen 1,000 mg tab(s) (TYLENOL) 1,000 mg ORAL q 8 H oxyCODONE IR 5-10 mg tab(s) (ROXICODONE) 5-10 mg ORAL q 3 H PRN HYDROmorphone 0.4 mg injection (DILAUDID) 0.4 mg INTRAVENOUS q 4 H PRN ondansetron orally disintegrating 4 mg tab(s) (ZOFRAN ODT) 4 mg ORAL q 6 H PRN Or ondansetron (PF) 4 mg injection (ZOFRAN) 4 mg INTRAVENOUS q 6 H PRN magnesium hydroxide 400 mg/5 mL 30 mL (MOM) 30 mL ORAL DAILY PRN bisacodyl EC 10 mg tab(s) (DULCOLAX) 10 mg ORAL DAILY aluminum-magnesium hydroxide-simethicone 200-200-20 mg/5 mL 30 mL 30 mL ORAL q 2 H PRN ascorbic acid (vitamin C) 500 mg tab(s) (VITAMIN C) 500 mg ORAL BID w MEALS senna 17.2 mg tab(s) (SENOKOT) 17.2 mg ORAL AT BEDTIME dextrose 40 % 15 g 15 g ORAL PRN Or glucagon 1 mg injection 1 mg INTRAMUSCULAR PRN Or dextrose 10% iv bolus 12.5 g INTRAVENOUS PRN insulin lispro injection (rapid acting) (ADMElog) SUBCUTANEOUS w MEALS insulin lispro injection (rapid acting) (ADMElog) SUBCUTANEOUS AT BEDTIME NaCl 0.9% iv flush bag 20 mL INTRAVENOUS PRN metoprolol succinate ER 50 mg tab(s) (TOPROL XL) 50 mg ORAL DAILY polyethylene glycol 3350 17 g packet 17 g ORAL DAILY PRN ceFAZolin iv piggyback 2 g in D5W (iso-osmotic) 100 mL (ANCEF) 2 g INTRAVENOUS q 8 HR amiodarone 400 mg tab(s) (PACERONE) 400 mg ORAL BID apixaban 2.5 mg tab(s) (ELIQUIS) 2.5 mg ORAL BID PHYSICAL EXAM: Blood pressure (!) 95/48, pulse 76, temperature 37 ?C (98.6 ?F), temperature source Oral, resp. rate 17, height 176.5 cm (5' 9.5), weight 75 kg (165 lb 5.5 oz), SpO2 96%. Body mass index is 24.07 kg/m?. GENERAL: Alert, no distress, cooperative LUNGS: CTAB CARDIAC: Normal S1 and S2; no rubs, murmurs, or gallops ABDOMEN: Abdomen soft, mild-tender L side , BS normal, No masses or organomegaly EXTREMITIES: 1 to 2 edema of R thigh Wound 10/07/242052 Pressure Injury Coccyx (Active) Properties Placement Date 10/07/24 Placement Time 2052 Location Coccyx Present on Original Admission No Wound Number 1 Wound Approximate Age at First Assessment (Weeks) 1 weeks Primary Wound Type Pressure Injury If Pressure Injury, is it Device Related? If Yes, Add Device Type in Comment Box No Wound Description (Comments) stage 1, nonblanchable redness Assessments 10/07/2024 9:24 PM IF PATIENT HAS A PRESSURE INJURY: WHEN WAS IT ACQUIRED? (Document one time during this admission) Hospital Acquired during this Encounter CBC: Recent Labs 10/14/24 0821 WBC 6.04 RBC 3.08* HB 8.8* HCT 27.4* PLT 148* MCV 89.0 MCH 28.6 MPV 11.9 Coags: CMP: Recent Labs 10/14/24 0821 NA 136 K 4.7 CHLOR 100 CO2 26 BUN 21 CREAT 1.13 GLUC 118* TPROT 5.6* CA 8.9 MG 2.3 TBILI 0.5 ALKPHOS 72 ALT <5* AST 37 ANION 10 Cardiac Enzymes: Liver Function, Amylase, Lipase: Recent Labs 10/14/24 0821 TPROT 5.6* ALB 3.0* ALT <5* AST 37 ALKPHOS 72 TBILI 0.5 ABG's: No results for input(s): PH, PCO2, PO2, BE, HCO3, CO2CT, O2HB, COHB, MHGB, TEMP, PHTC, PCO2T, PO2T, O2AD in the last 24 hours. MG/PHOS: Recent Labs 10/14/24 08 MG 2.3 SIGNATURE: Yuriy Solomon [facility] [place]woodKgpbysou52-90-7800 NoteHNO ID: [id number] Author: BALWINDER SOUZA RN Service: Care Management Author Type: Registered Nurse Type: Care Mgt Progress Note Filed: 10/14/2024 13:18 Note Text: CARE MANAGEMENT DISCHARGE NOTE SERVICE DATE: October 14, 2024 SERVICE TIME: 1:16 PM Admission Date: 10/07/2024 LOS: 3 days Discharge Arrangement Discharge Arrangement: [facility] Facility Was an expedited discharge program used?: No Services Arranged Medical Services: Other: See Comment Provider Name: [facility] Care[facility]iver Assessment Caregiver is ready, willing and able to meet the patient's needs as recommended by the inter-professional team: Yes Name of Caregiver: Chaka Alford Transportation Arrangements Transportation Arrangements: Ambulance Transportation Agency and Phone #:: [facility] [phone] Date of Trip: 10/14/24 Time of Trip: 1012 Type of Service: BLS Non-emergency Is Patient Medicaid Pending?: No Was transportation financial coverage discussed with family?: Patient Kettle Room Helper Location: [place] Destination: [facility] Financial Care Management Responsibility: None Handoff Communication: Handoff to: Primary Care Physician, Other Caregiver Primary Care Physician Name/Phone: Valery Quinteros PROTOZOOLOGIST.[facility] [phone] Other Caregiver Name/Phone: [facility] [phone] Additional Information: Discharge written for patient to go SNF. Patient and Son agreeable to discharge plan and denies needs. MMT to transport. Bedside nurse and Son updated. SOC sent to PCP and SNF. Discharge orders sent to [facility] via allscripts. Envelope on chart for N2N. SIGNATURE: Balwinder Souza RN PATIENT NAME: Angie Dutton DATE: October 14, 2024 TIME: 1:16 PMLakehealth Tripoint Medical CenterQudqyxxm06-80-2291 Telephone encounter Note* Telephone Encounter - Liza Montgomery LPN - 10/14/2024 1:[address] Alonzo, Patient is being discharged to SNF today. [facility] referral canceled [facility] Work Phone: [phone] Miscellaneous Notes* Telephone Encounter - Liza Montgomery LPN - 10/14/2024 1:[address] Alonzo, Patient is being discharged to SNF today. [facility] referral [facility]25 NoteHNO ID: [id number] Author: ELLYN STARR PA-C Service: Orthopaedic Surgery Author Type: Physician Contact Lens Curve Grinder Type: Procedures Filed: 10/14/2024 12:50 Note Text: PROCEDURE- Surgical site dressing change Surgical Site: right hip After discussion with Dr. Alonzo the decision was made to change the surgical site dressing. The silverlon dressing was removed and incision was examined. The skin is well-approximated, no wound dehiscence, no signs concerning for infection. There is trace serous drainage from the distal incision. The incision and per-incisional area was cleansed with chlorhexidine. Next, using sterile gloves and sterile technique we applied a new silverlon dressing over the incision. This was covered with hip spica ANAMARIA wrap. This was well-tolerated without complications. We will plan to leave current dressing in place for 7 days. Frederick Starr PA-C Orthopaedic SurgeryLakehealth Tripoint Medical CenterWfzfdgjc87-12-5450 NoteHNO ID: [id number] Author: BRETT GUPTA ? Service: Care Management Author Type: ? Type: Care Mgt Progress Note Filed: 10/14/2024 09:50 Note Text: [facility] PRECERT NOTE [employer] MEDICARE PPO approved [facility] for [facility]. Precert approved through 10/18/2024. For any additional questions regarding approvals, transport or care management needs, please contact the CM assigned to this patient in the Treatment Team. SIGNATURE: Brett Gupta DATE: October 14, 2024 TIME: 9:48 AMLakehealth Tripoint Medical CenterGntjzsyt51-71-1029 NoteHNO ID: [id number] Author: ELLYN STARR PA-C Service: Orthopaedic Surgery Author Type: Physician Contact Lens Curve Grinder Type: Progress Notes Filed: 10/14/2024 10:10 Note Text: POSTOP NOTE ORTHOPAEDIC SURGERY SERVICE DATE: 10/14/2024 SERVICE TIME: 8:52 AM IMPRESSION/PLAN: S/P Procedure(s) (LRB): ROBOTIC ASSISTED ANTERIOR TOTAL HIP ARTHROPLASTY (Right) on 10/07/2024 Physical Therapy recommending SNF TDWB RLE, anterior hip precautions Dressing: prevena removed 10/11/24. Maintain silverlon x 1 week - change dressing PRN DVT prophylaxis: Intermittent pneumatic compression device (IPCD) and Eliquis 2.5 mg BID - Hold Plavix until first post op visit; d/w Dr. Alonzo Pain control Recurrent PSVT and afib with RVR: cardiology consult; appreciate recs IM consult for medial management; appreciate recs Antibiotics: IV ancef while in house, DC on Duricef 500mg twice daily for 2 weeks Case Management for discharge planning Dispo: awaiting SNF placement Plan of care discussed with: Provider, RN, Patient. Patient Active Hospital Problem List: S/P total right hip arthroplasty Date Noted: 10/10/2024 Primary osteoarthritis of right hip Date Noted: 10/07/2024 SVT (supraventricular tachycardia) (HCC) Date Noted: 10/09/2024 Pressure injury of coccygeal region, stage 1 Date Noted: 10/10/2024 At high risk for impaired skin integrity Date Noted: 10/10/2024 Atrial fibrillation with RVR (HCC) Date Noted: 10/11/2024 Coronary artery disease involving [place] coronary artery of [place] heart without angina pectoris Date Noted: 10/13/2024 POST OPERATIVE COMPLICATIONS: Complicated by cardiac arrhythmia SUBJECTIVE: Morning event noted - d/w IM service, the patient is medically cleared for discharge to SNF. Well Controlled hip pain. Denies incisional pain, chest pain, shortness of breath or other complaints at this time. Awaiting SNF placement. OBJECTIVE: VITAL SIGNS: BP (!) 116/44 Pulse 70 Temp 36.6 ?C (97.9 ?F) (Oral) Resp 17 Ht 176.5 cm (5' 9.5) Wt 75 kg (165 lb 5.5 oz) SpO2 99% BMI 24.07 kg/m? INTAKE AND OUTPUT: Intake/Output Summary (Last 24 hours) at 10/14/2024 1000 Last data filed at 10/14/2024 0609 Gross per 24 hour Intake 440 ml Output 1600 ml Net -1160 ml LABS: Hemoglobin Date Value Ref Range Status 10/14/2024 8.8 (L) 13.0 - 17.0 g/dL Final 10/13/2024 8.9 (L) 13.0 - 17.0 g/dL Final Hematocrit Date Value Ref Range Status 10/14/2024 27.4 (L) 39.0 - 51.0 % Final 10/13/2024 28.1 (L) 39.0 - 51.0 % Final Platelet Count Date Value Ref Range Status 10/14/2024 148 (L) 150 - 400 k/uL Final Comment: No clot detected. 10/13/2024 114 (L) 150 - 400 k/uL Final WBC Date Value Ref Range Status 10/14/2024 6.04 3.70 - 11.00 k/uL Final 10/13/2024 4.74 3.70 - 11.00 k/uL Final Creatinine Date Value Ref Range Status 10/14/2024 1.13 0.73 - 1.22 mg/dL Final 10/13/2024 1.20 0.73 - 1.22 mg/dL Final Potassium Date Value Ref Range Status 10/14/2024 4.7 3.7 - 5.1 mmol/L Final 10/13/2024 4.5 3.7 - 5.1 mmol/L Final VTE Prophylaxis: Active VTE Risk Category Order: 10/07/242129 VTE RISK CATEGORY: [place]GICAL [place] ([place] Active VTE Medication Orders: Anticoagulant AND Antiplatelet Medications (From admission, onward) Start Dose Route Frequency Last Action Ordered Stop 10/13/242099 apixaban 2.5 mg tab(s) (ELIQUIS) (apixaban tab(s) (ELIQUIS)) 2.5 mg ORAL 2 TIMES DAILY Given, 10/14 84610/13/24925 -- Active VTE Prophylaxis Orders: 10/07/242129 VTE CURRENT ANT[place]Y [place] 10/07/242129 PNEUMATIC COMPRESSION SLEEVE(S) [place] 10/07/242129 ACTIVITY - MOBILIZE PATIENT ([place]) PHYSICAL EXAMINATION: Right Lower Extremity: Dorsalis pedis pulses palpable. Posterior tibial pulses palpable. Dorsi flexion 5/5. Plantar flexion 5/5. Extensor hallucis extension: 5/5. Sensory intact to light touch L1-S1. Silverlon dressing clean, dry, and intact. Mild serous shadowing under silverlon. Hip spica ANAMARIA wrap in place DATA: Diagnostic tests reviewed for today's visit: Most recent labs and imaging results. SIGNATURE: Ellyn Starr PA-C PATIENT NAME: Angie Dutton DATE: October 14, 2024 TIME: 10:00 AM The patient has undergone major orthopedic surgery and participating in therapy. Pain cannot be managed within an average of 30 MED per day. Patient requiring average of higher than 30 MED per day in order to control pain and allow patient to actively and safely participate in therapy and this is the lowest dose consistent with patient's medical condition. Non-narcotic medication options have been discussed. In addition, the patient has been advised of the benefits and risks of the opioid (including the potential for addiction). Patient demonstrated understanding of risks versus benefits.L[facility] Medical CenterVzdnhiim53-42-1298 NoteHNO ID: [id number] Author: BALWINDER SOUZA RN Service: Care Management Author Type: Registered Nurse Type: Care Mgt Progress Note Filed: 10/14/2024 08:24 Note Text: CARE MANAGEMENT PROGRESS NOTE SERVICE DATE: 10/14/2024 SERVICE TIME: 8:23 AM LOS: 3 days Needs Prior to Discharge: To Be Determined, Precertification, Discharge Transportation EMR reviewed. Precert remains pending for [facility]. Patient medically cleared for DC upon approval. Will NEED MMT. Envelope on chart for N2N. CM to follow for DC planning. SIGNATURE: Balwinder Souza RN PATIENT NAME: Angie Dutton DATE: October 14, 2024 TIME: 8:23 AMLakehealth Tripoint Medical CenterOwkpuduz94-93-0755 NoteHNO ID: [id number] Author: BALWINDER SOUZA RN Service: Care Management Author Type: Registered Nurse Type: Care Mgt Progress Note Filed: 10/13/2024 13:53 Note Text: CARE MANAGEMENT PROGRESS NOTE SERVICE DATE: 10/13/2024 SERVICE TIME: 1:52 PM LOS: 2 days Needs Prior to Discharge: To Be Determined, Other: See Comment, Precertification (Medical Clearance) EMR reviewed. Precert has been tasked to [facility] for [facility]. HENS complete. Envelope on chart. CM to follow for DC planning. SIGNATURE: Balwinder Souza RN PATIENT NAME: Angie Dutton DATE: October 13, 2024 TIME: 1:52 PMLakehealth Tripoint Medical CenterKwfebkwz11-99-4887 NoteHNO ID: [id number] Author: YURIY SOLOMON MD Service: General Internal Medicine Author Type: Physician Type: Progress Notes Filed: 10/13/2024 12:08 Note Text: INPATIENT PROGRESS NOTES Patient Name: Angie Dutton DATE of SERVICE: 10/13/2024 TIME of SERVICE: 7:45 PRIMARY SERVICE: medicine INTERVAL HPI: Uneventful night, pain is fairly control no palpitation or sob, fair po intake ASSESSMENT AND PLAN: Osteoarthritis, status post right PARAS, Coronary artery disease, continue statin SVT/ A fib with RVR, continue B bryan Hypertension stable Hyperlipidemia CKD stage III avoid nephrotoxic drug GERD ITP PERTINENT ROS: All other reviewed and negative other than HPI. MEDICATIONS: Current Facility-Administered Medications Medication Dose Route Frequency isosorbide mononitrate ER 15 mg tab(s) (IMDUR) 15 mg ORAL DAILY simvastatin 40 mg tab(s) (ZOCOR) 40 mg ORAL AT BEDTIME metFORMIN ER 500 mg tab(s) (GLUCOPHAGE XR) 500 mg ORAL DAILY WITH BREAKFAST pantoprazole DR 40 mg tab(s) (PROTONIX) 40 mg ORAL DAILY (6 AM) gabapentin 400 mg cap(s) (NEURONTIN) 400 mg ORAL BID tamsulosin 0.4 mg cap(s) (FLOMAX) 0.4 mg ORAL DAILY (7 PM) acetaminophen 1,000 mg tab(s) (TYLENOL) 1,000 mg ORAL q 8 H oxyCODONE IR 5-10 mg tab(s) (ROXICODONE) 5-10 mg ORAL q 3 H PRN HYDROmorphone 0.4 mg injection (DILAUDID) 0.4 mg INTRAVENOUS q 4 H PRN ondansetron orally disintegrating 4 mg tab(s) (ZOFRAN ODT) 4 mg ORAL q 6 H PRN Or ondansetron (PF) 4 mg injection (ZOFRAN) 4 mg INTRAVENOUS q 6 H PRN magnesium hydroxide 400 mg/5 mL 30 mL (MOM) 30 mL ORAL DAILY PRN bisacodyl EC 10 mg tab(s) (DULCOLAX) 10 mg ORAL DAILY aluminum-magnesium hydroxide-simethicone 200-200-20 mg/5 mL 30 mL 30 mL ORAL q 2 H PRN ferrous sulfate 325 mg tab(s) 325 mg ORAL DAILY WITH BREAKFAST ascorbic acid (vitamin C) 500 mg tab(s) (VITAMIN C) 500 mg ORAL BID w MEALS senna 17.2 mg tab(s) (SENOKOT) 17.2 mg ORAL AT BEDTIME dextrose 40 % 15 g 15 g ORAL PRN Or glucagon 1 mg injection 1 mg INTRAMUSCULAR PRN Or dextrose 10% iv bolus 12.5 g INTRAVENOUS PRN insulin lispro injection (rapid acting) (ADMElog) SUBCUTANEOUS w MEALS insulin lispro injection (rapid acting) (ADMElog) SUBCUTANEOUS AT BEDTIME NaCl 0.9% iv flush bag 20 mL INTRAVENOUS PRN metoprolol succinate ER 50 mg tab(s) (TOPROL XL) 50 mg ORAL DAILY polyethylene glycol 3350 17 g packet 17 g ORAL DAILY PRN ceFAZolin iv piggyback 2 g in D5W (iso-osmotic) 100 mL (ANCEF) 2 g INTRAVENOUS q 8 HR amiodarone 400 mg tab(s) (PACERONE) 400 mg ORAL BID apixaban 2.5 mg tab(s) (ELIQUIS) 2.5 mg ORAL BID PHYSICAL EXAM: Blood pressure (!) 116/48, pulse 79, temperature 36.7 ?C (98.1 ?F), temperature source Oral, resp. rate 16, height 176.5 cm (5' 9.5), weight 75 kg (165 lb 5.5 oz), SpO2 98%. Body mass index is 24.07 kg/m?. GENERAL: Alert, no distress, cooperative LUNGS: CTAB CARDIAC: Normal S1 and S2; no rubs, murmurs, or gallops ABDOMEN: Abdomen soft, non-tender, BS normal, No masses or organomegaly EXTREMITIES: 1 to 2 edema of R thigh Wound 10/07/242052 Pressure Injury Coccyx (Active) Properties Placement Date 10/07/24 Placement Time 2052 Location Coccyx Present on Original Admission No Wound Number 1 Wound Approximate Age at First Assessment (Weeks) 1 weeks Primary Wound Type Pressure Injury If Pressure Injury, is it Device Related? If Yes, Add Device Type in Comment Box No Wound Description (Comments) stage 1, nonblanchable redness Assessments 10/07/2024 9:24 PM IF PATIENT HAS A PRESSURE INJURY: WHEN WAS IT ACQUIRED? (Document one time during this admission) Hospital Acquired during this Encounter CBC: Recent Labs 10/13/24 0453 WBC 4.74 RBC 3.13* HB 8.9* HCT 28.1* PLT 114* MCV 89.8 MCH 28.4 MPV 12.5 Coags: CMP: Recent Labs 10/13/24 0453 NA 136 K 4.5 CHLOR 100 CO2 26 BUN 20 CREAT 1.20 GLUC 104* CA 8.7 MG 2.0 ANION 10 Cardiac Enzymes: Liver Function, Amylase, Lipase: No results for input(s): TPROT, ALB, ALT, AST, ALKPHOS, TBILI, AMYLASE, LIPASE, LACTATE in the last 24 hours. ABG's: No results for input(s): PH, PCO2, PO2, BE, HCO3, CO2CT, O2HB, COHB, MHGB, TEMP, PHTC, PCO2T, PO2T, O2AD in the last 24 hours. MG/PHOS: Recent Labs 10/13/24 0453 MG 2.0 SIGNATURE: Yuriy Solomon [facility] BeachwoodRsehgycw05-93-4490 NoteHNO ID: [id number] Author: JENNIFER SEGOVIA APRN.CNP Service: Cardiovascular Medicine Author Type: Nurse Practitioner Type: Progress Notes Filed: 10/13/2024 10:57 Note Text: [facility] CARDIOVASCULAR MEDICINE PROGRESS NOTE (Template ID [id number]) SERVICE DATE: 10/13/2024 PRIMARY SERVICE: HOSPITAL DAY: #2 INTERVAL HISTORY Patient seen and examined resting comfortably in his bed this morning No acute events overnight No recurrence of sustained SVT or RVR on amiodarone Was able to ambulate with bedside nurse today without arrhythmia Notes some nausea this morning after having sausage for breakfast He denies any chest pain, shortness of breath, palpitations, lightheadedness, or dizziness PHYSICAL EXAM BP 113/50 Pulse 81 Temp 36.7 ?C (98.1 ?F) (Oral) Resp 16 Ht 176.5 cm (5' 9.5) Wt 75 kg (165 lb 5.5 oz) SpO2 98% BMI 24.07 kg/m? Intake/Output Summary (Last 24 hours) at 10/13/2024 0944 Last data filed at 10/13/2024 0929 Gross per 24 hour Intake 1270 ml Output 1850 ml Net -580 ml General Appearance: Well developed and No distress HEENT: EOM's intact, Fair dentition, and No lesions Lungs: Clear and Respiratory effort: normal Heart: Regular rate AND rhythm, no murmur , and no edema Abdomen: Soft, Non-tender, Bowel sounds present, and Non-distended Skin: Warm and Dry Musculoskeletal: No deformities Neurologic/Psychiatric: Oriented to time, place AND person MEDICATIONS Current Facility-Administered Medications Medication Dose Route Frequency isosorbide mononitrate ER 15 mg tab(s) (IMDUR) 15 mg ORAL DAILY simvastatin 40 mg tab(s) (ZOCOR) 40 mg ORAL AT BEDTIME metFORMIN ER 500 mg tab(s) (GLUCOPHAGE XR) 500 mg ORAL DAILY WITH BREAKFAST pantoprazole DR 40 mg tab(s) (PROTONIX) 40 mg ORAL DAILY (6 AM) gabapentin 400 mg cap(s) (NEURONTIN) 400 mg ORAL BID tamsulosin 0.4 mg cap(s) (FLOMAX) 0.4 mg ORAL DAILY (7 PM) acetaminophen 1,000 mg tab(s) (TYLENOL) 1,000 mg ORAL q 8 H oxyCODONE IR 5-10 mg tab(s) (ROXICODONE) 5-10 mg ORAL q 3 H PRN HYDROmorphone 0.4 mg injection (DILAUDID) 0.4 mg INTRAVENOUS q 4 H PRN ondansetron orally disintegrating 4 mg tab(s) (ZOFRAN ODT) 4 mg ORAL q 6 H PRN Or ondansetron (PF) 4 mg injection (ZOFRAN) 4 mg INTRAVENOUS q 6 H PRN magnesium hydroxide 400 mg/5 mL 30 mL (MOM) 30 mL ORAL DAILY PRN bisacodyl EC 10 mg tab(s) (DULCOLAX) 10 mg ORAL DAILY aluminum-magnesium hydroxide-simethicone 200-200-20 mg/5 mL 30 mL 30 mL ORAL q 2 H PRN ferrous sulfate 325 mg tab(s) 325 mg ORAL DAILY WITH BREAKFAST ascorbic acid (vitamin C) 500 mg tab(s) (VITAMIN C) 500 mg ORAL BID w MEALS senna 17.2 mg tab(s) (SENOKOT) 17.2 mg ORAL AT BEDTIME dextrose 40 % 15 g 15 g ORAL PRN Or glucagon 1 mg injection 1 mg INTRAMUSCULAR PRN Or dextrose 10% iv bolus 12.5 g INTRAVENOUS PRN insulin lispro injection (rapid acting) (ADMElog) SUBCUTANEOUS w MEALS insulin lispro injection (rapid acting) (ADMElog) SUBCUTANEOUS AT BEDTIME NaCl 0.9% iv flush bag 20 mL INTRAVENOUS PRN metoprolol succinate ER 50 mg tab(s) (TOPROL XL) 50 mg ORAL DAILY polyethylene glycol 3350 17 g packet 17 g ORAL DAILY PRN ceFAZolin iv piggyback 2 g in D5W (iso-osmotic) 100 mL (ANCEF) 2 g INTRAVENOUS q 8 HR amiodarone 400 mg tab(s) (PACERONE) 400 mg ORAL BID apixaban 2.5 mg tab(s) (ELIQUIS) 2.5 mg ORAL BID DATA: Diagnostic tests reviewed for today's visit: Most recent labs Telemetry events from the last 24 hours ASSESSMENT AND PLAN Patient stable from cardiovascular stand point. We will arrange for OP follow up. Please continue amiodarone 400 mg BID for 1 week (10/18) followed by 400 mg daily for 1 week (10/25) followed by 200 mg daily thereafter. Will sign off. Thank you for allowing us to participate in the care of this very pleasant patient. Please feel free to contact if we can be of further assistance. Supraventricular tachycardia - Multiple episodes of SVT into the this admission - Most recent 10/11 with spontaneous conversion to AF - Continued episodes despite escalation in BB - Continue metoprolol succinate 50 mg daily - Amiodarone 400 mg BID started 10/11>>Continue for 1 week (10/18) then decrease to 400 mg daily for 1 week followed by 200 mg daily thereafter (10/25) Atrial fibrillation with rapid ventricular response - Known history diagnosed 09/2023 - Zio 10/2023: No AF - Recurrence during admission - Placed on amiodarone for recurrent SVT as above - Continue metoprolol succinate 50 mg daily - On Eliquis 2.5 mg BID with plan to resume full dose this evening per ortho Coronary artery disease - Patient is s/p CABG x3 (1985) and remote PCI/stent - Patient appears compensated from cardiac standpoint - Continue secondary prevention SIGNATURE: Jennifer Segovia APRN.ASSISTANT PORTFOLIO MANAGER PATIENT NAME: Angie Dutton DATE: October 13, 2024 TIME: 9:44 [facility] NoteHNO ID: [id number] Author: ELLYN STARR PA-C Service: Orthopaedic Surgery Author Type: Physician Contact Lens Curve Grinder Type: Progress Notes Filed: 10/13/2024 09:52 Note Text: POSTOP NOTE ORTHOPAEDIC SURGERY SERVICE DATE: 10/13/2024 SERVICE TIME: 8:46 AM IMPRESSION/PLAN: S/P Procedure(s) (LRB): ROBOTIC ASSISTED ANTERIOR TOTAL HIP ARTHROPLASTY (Right) on 10/07/2024 Physical Therapy recommending SNF - reeval today TDWB RLE, anterior hip precautions Dressing: prevena removed 10/11/24. Maintain silverlon x 1 week - change dressing PRN DVT prophylaxis: Intermittent pneumatic compression device (IPCD) and holding Eliquis due to drainage from surgical site - OK to resume Eliquis this evening; d/w Dr. Alonzo Pain control Recurrent PSVT and afib with RVR: cardiology consult; appreciate recs IM consult for medial management Antibiotics: IV ancef while in house, DC on Duricef 500mg twice daily for 2 weeks Case Management for discharge planning Plan of care discussed with: Provider, RN, Patient. Patient Active Hospital Problem List: S/P total right hip arthroplasty Date Noted: 10/10/2024 Primary osteoarthritis of right hip Date Noted: 10/07/2024 SVT (supraventricular tachycardia) (HCC) Date Noted: 10/09/2024 Pressure injury of coccygeal region, stage 1 Date Noted: 10/10/2024 At high risk for impaired skin integrity Date Noted: 10/10/2024 Atrial fibrillation with RVR (HCC) Date Noted: 10/11/2024 POST OPERATIVE COMPLICATIONS: Complicated by cardiac arrhythmia SUBJECTIVE: NAEO. Patient states that they are feeling better today overall. Well Controlled hip pain. Denies incisional pain or other complaints. OBJECTIVE: VITAL SIGNS: BP 113/50 Pulse 81 Temp 36.7 ?C (98.1 ?F) (Oral) Resp 16 Ht 176.5 cm (5' 9.5) Wt 75 kg (165 lb 5.5 oz) SpO2 98% BMI 24.07 kg/m? INTAKE AND OUTPUT: Intake/Output Summary (Last 24 hours) at 10/13/2024 0950 Last data filed at 10/13/2024 0929 Gross per 24 hour Intake 1270 ml Output 1850 ml Net -580 ml LABS: Hemoglobin Date Value Ref Range Status 10/13/2024 8.9 (L) 13.0 - 17.0 g/dL Final 10/12/2024 9.0 (L) 13.0 - 17.0 g/dL Final Hematocrit Date Value Ref Range Status 10/13/2024 28.1 (L) 39.0 - 51.0 % Final 10/12/2024 28.4 (L) 39.0 - 51.0 % Final Platelet Count Date Value Ref Range Status 10/13/2024 114 (L) 150 - 400 k/uL Final 10/12/2024 106 (L) 150 - 400 k/uL Final WBC Date Value Ref Range Status 10/13/2024 4.74 3.70 - 11.00 k/uL Final 10/12/2024 5.03 3.70 - 11.00 k/uL Final Creatinine Date Value Ref Range Status 10/13/2024 1.20 0.73 - 1.22 mg/dL Final 10/12/2024 1.19 0.73 - 1.22 mg/dL Final Potassium Date Value Ref Range Status 10/13/2024 4.5 3.7 - 5.1 mmol/L Final 10/12/2024 4.4 3.7 - 5.1 mmol/L Final VTE Prophylaxis: Active VTE Risk Category Order: 10/07/242129 VTE RISK CATEGORY: SURGICAL HIGH RISK ([place]) Active VTE Medication Orders: Anticoagulant AND Antiplatelet Medications (From admission, onward) Start Dose Route Frequency Last Action Ordered Stop 10/13/242099 apixaban 2.5 mg tab(s) (ELIQUIS) (apixaban tab(s) (ELIQUIS)) 2.5 mg ORAL 2 TIMES DAILY Ordered 10/13/24925 -- Active VTE Prophylaxis Orders: 10/07/242129 VTE CURRENT ANTICOAG THERAPY ([place]) 10/07/242129 PNEUMATIC COMPRESSION SLEEVE(S) ([place]) 10/07/242129 ACTIVITY - MOBILIZE PATIENT ([place]) PHYSICAL EXAMINATION: Right Lower Extremity: Dorsalis pedis pulses palpable. Posterior tibial pulses palpable. Dorsi flexion 5/5. Plantar flexion 5/5. Extensor hallucis extension: 5/5. Sensory intact to light touch L1-S1. Silverlon dressing clean, dry, and intact. Mild serous shadowing under silverlon. DATA: Diagnostic tests reviewed for today's visit: Most recent labs and imaging results. SIGNATURE: Ellyn Starr PA-C PATIENT NAME: Angie Dutton DATE: October 13, 2024 TIME: 9:50 AM The patient has undergone major orthopedic surgery and participating in therapy. Pain cannot be managed within an average of 30 MED per day. Patient requiring average of higher than 30 MED per day in order to control pain and allow patient to actively and safely participate in therapy and this is the lowest dose consistent with patient's medical condition. Non-narcotic medication options have been discussed. In addition, the patient has been advised of the benefits and risks of the opioid (including the potential for addiction). Patient demonstrated understanding of risks versus benefits.[facility] [id number] NoteHNO ID: [id number] Author: YURIY SOLOMON MD Service: General Internal Medicine Author Type: Physician Type: Progress Notes Filed: 10/12/2024 10:09 Note Text: INPATIENT PROGRESS NOTES Patient Name: Angei Dutton DATE of SERVICE: 10/12/2024 TIME of SERVICE: 7:32 PRIMARY SERVICE: medicine INTERVAL HPI: Uneventful night, pain is fairly control no palpitation or sob ASSESSMENT AND PLAN: Osteoarthritis, status post right PARAS, DVT prophylaxis with Eliquis 2.5 mg twice a day Coronary artery disease, continue statin SVT/ A fib with RVR, continue B bryan Hypertension stable Hyperlipidemia CKD stage III avoid nephrotoxic drug GERD ITP Possible discharge to rehab today PERTINENT ROS: All other reviewed and negative other than HPI. MEDICATIONS: Current Facility-Administered Medications Medication Dose Route Frequency isosorbide mononitrate ER 15 mg tab(s) (IMDUR) 15 mg ORAL DAILY simvastatin 40 mg tab(s) (ZOCOR) 40 mg ORAL AT BEDTIME metFORMIN ER 500 mg tab(s) (GLUCOPHAGE XR) 500 mg ORAL DAILY WITH BREAKFAST pantoprazole DR 40 mg tab(s) (PROTONIX) 40 mg ORAL DAILY (6 AM) gabapentin 400 mg cap(s) (NEURONTIN) 400 mg ORAL BID tamsulosin 0.4 mg cap(s) (FLOMAX) 0.4 mg ORAL DAILY (7 PM) acetaminophen 1,000 mg tab(s) (TYLENOL) 1,000 mg ORAL q 8 H oxyCODONE IR 5-10 mg tab(s) (ROXICODONE) 5-10 mg ORAL q 3 H PRN HYDROmorphone 0.4 mg injection (DILAUDID) 0.4 mg INTRAVENOUS q 4 H PRN ondansetron orally disintegrating 4 mg tab(s) (ZOFRAN ODT) 4 mg ORAL q 6 H PRN Or ondansetron (PF) 4 mg injection (ZOFRAN) 4 mg INTRAVENOUS q 6 H PRN magnesium hydroxide 400 mg/5 mL 30 mL (MOM) 30 mL ORAL DAILY PRN bisacodyl EC 10 mg tab(s) (DULCOLAX) 10 mg ORAL DAILY aluminum-magnesium hydroxide-simethicone 200-200-20 mg/5 mL 30 mL 30 mL ORAL q 2 H PRN ferrous sulfate 325 mg tab(s) 325 mg ORAL DAILY WITH BREAKFAST ascorbic acid (vitamin C) 500 mg tab(s) (VITAMIN C) 500 mg ORAL BID w MEALS senna 17.2 mg tab(s) (SENOKOT) 17.2 mg ORAL AT BEDTIME dextrose 40 % 15 g 15 g ORAL PRN Or glucagon 1 mg injection 1 mg INTRAMUSCULAR PRN Or dextrose 10% iv bolus 12.5 g INTRAVENOUS PRN insulin lispro injection (rapid acting) (ADMElog) SUBCUTANEOUS w MEALS insulin lispro injection (rapid acting) (ADMElog) SUBCUTANEOUS AT BEDTIME [Order Held by LIP] apixaban 2.5 mg tab(s) (ELIQUIS) 2.5 mg ORAL BID NaCl 0.9% iv flush bag 20 mL INTRAVENOUS PRN metoprolol succinate ER 50 mg tab(s) (TOPROL XL) 50 mg ORAL DAILY polyethylene glycol 3350 17 g packet 17 g ORAL DAILY PRN ceFAZolin iv piggyback 2 g in D5W (iso-osmotic) 100 mL (ANCEF) 2 g INTRAVENOUS q 8 HR amiodarone 400 mg tab(s) (PACERONE) 400 mg ORAL BID PHYSICAL EXAM: Blood pressure (!) 115/49, pulse 81, temperature 36.5 ?C (97.7 ?F), temperature source Oral, resp. rate 18, height 176.5 cm (5' 9.5), weight 75 kg (165 lb 5.5 oz), SpO2 97%. Body mass index is 24.07 kg/m?. GENERAL: Alert, no distress, cooperative LUNGS: CTAB CARDIAC: Normal S1 and S2; no rubs, murmurs, or gallops ABDOMEN: Abdomen soft, non-tender, BS normal, No masses or organomegaly EXTREMITIES: no edema Wound 10/07/242052 Pressure Injury Coccyx (Active) Properties Placement Date 10/07/24 Placement Time 2052 Location Coccyx Present on Original Admission No Wound Number 1 Wound Approximate Age at First Assessment (Weeks) 1 weeks Primary Wound Type Pressure Injury If Pressure Injury, is it Device Related? If Yes, Add Device Type in Comment Box No Wound Description (Comments) stage 1, nonblanchable redness Assessments 10/07/2024 9:24 PM IF PATIENT HAS A PRESSURE INJURY: WHEN WAS IT ACQUIRED? (Document one time during this admission) Hospital Acquired during this Encounter CBC: Recent Labs 10/12/24 0501 WBC 5.03 RBC 3.12* HB 9.0* HCT 28.4* PLT 106* MCV 91.0 MCH 28.8 MPV 12.3 Coags: CMP: Recent Labs 10/12/24 0501 10/11/24 0746 10/11/24 0508 10/09/24 1550 NA 139 -- < > 136 K 4.4 -- < > 4.4 CHLOR 103 -- < > 104 CO2 26 -- < > 21* BUN 21 -- < > 20 CREAT 1.19 -- < > 1.20 GLUC 108* -- < > 123* TPROT -- -- -- 5.4* CA 8.8 -- < > 8.6 MG -- 2.1 -- 1.9 TBILI -- -- -- 0.7 ALKPHOS -- -- -- 45 ALT -- -- -- <5* AST -- -- -- 44* ANION 10 -- < > 11 < > = values in this interval not displayed. Cardiac Enzymes: Liver Function, Amylase, Lipase: No results for input(s): TPROT, ALB, ALT, AST, ALKPHOS, TBILI, AMYLASE, LIPASE, LACTATE in the last 24 hours. ABG's: No results for input(s): PH, PCO2, PO2, BE, HCO3, CO2CT, O2HB, COHB, MHGB, TEMP, PHTC, PCO2T, PO2T, O2AD in the last 24 hours. MG/PHOS: No results for input(s): MG, P in the last 24 hours. SIGNATURE: Yuriy Solomon, [facility], [id number] NoteHNO ID: [id number] Author: ELLYN STARR PA-C Service: Orthopaedic Surgery Author Type: Physician Contact Lens Curve Grinder Type: Progress Notes Filed: 10/12/2024 12:18 Note Text: POSTOP NOTE ORTHOPAEDIC SURGERY SERVICE DATE: 10/12/2024 SERVICE TIME: 9:17 AM IMPRESSION/PLAN: S/P Procedure(s) (LRB): ROBOTIC ASSISTED ANTERIOR TOTAL HIP ARTHROPLASTY (Right) on 10/07/2024 Physical Therapy recommending SNF - bedrest today due to hip incision drainage; d/w Dr. Alonzo TDWB RLE, anterior hip precautions Dressing: prevena removed and new silverlon applied today 10/11/[address] Alonzo. Maintain silverlon x 1 week DVT prophylaxis: Intermittent pneumatic compression device (IPCD) and Hold Eliquis x 24 hours due to drainage from surgical site Pain control Recurrent PSVT and afib with RVR: cardiology consult; appreciate recs IM consult for medial management Antibiotics: IV ancef while in house, DC on Duricef 500mg twice daily for 2 weeks Case Management for discharge planning Plan of care discussed with: Provider, RN, Patient. Patient Active Hospital Problem List: S/P total right hip arthroplasty Date Noted: 10/10/2024 Primary osteoarthritis of right hip Date Noted: 10/07/2024 SVT (supraventricular tachycardia) (HCC) Date Noted: 10/09/2024 Pressure injury of coccygeal region, stage 1 Date Noted: 10/10/2024 At high risk for impaired skin integrity Date Noted: 10/10/2024 Atrial fibrillation with RVR (HCC) Date Noted: 10/11/2024 POST OPERATIVE COMPLICATIONS: Complicated by cardiac arrhythmia SUBJECTIVE: NAEO. Patient states that they are doing well today. Well Controlled hip pain. Denies incisional pain or other complaints. OBJECTIVE: VITAL SIGNS: BP (!) 114/45 Pulse 88 Temp 36.7 ?C (98.1 ?F) (Oral) Resp 18 Ht 176.5 cm (5' 9.5) Wt 75 kg (165 lb 5.5 oz) SpO2 99% BMI 24.07 kg/m? INTAKE AND OUTPUT: Intake/Output Summary (Last 24 hours) at 10/12/2024 1215 Last data filed at 10/12/2024 0953 Gross per 24 hour Intake 1180 ml Output 650 ml Net 530 ml LABS: Hemoglobin Date Value Ref Range Status 10/12/2024 9.0 (L) 13.0 - 17.0 g/dL Final 10/11/2024 9.1 (L) 13.0 - 17.0 g/dL Final Hematocrit Date Value Ref Range Status 10/12/2024 28.4 (L) 39.0 - 51.0 % Final 10/11/2024 27.5 (L) 39.0 - 51.0 % Final Platelet Count Date Value Ref Range Status 10/12/2024 106 (L) 150 - 400 k/uL Final 10/11/2024 87 (L) 150 - 400 k/uL Final Comment: No clot detected. WBC Date Value Ref Range Status 10/12/2024 5.03 3.70 - 11.00 k/uL Final 10/11/2024 5.27 3.70 - 11.00 k/uL Final Creatinine Date Value Ref Range Status 10/12/2024 1.19 0.73 - 1.22 mg/dL Final 10/11/2024 1.11 0.73 - 1.22 mg/dL Final Potassium Date Value Ref Range Status 10/12/2024 4.4 3.7 - 5.1 mmol/L Final 10/11/2024 4.2 3.7 - 5.1 mmol/L Final VTE Prophylaxis: Active VTE Risk Category Order: 10/07/242129 VTE RISK CATEGORY: SURGICAL HIGH RISK ([place]) Active VTE Medication Orders: Anticoagulant AND Antiplatelet Medications (From admission, onward) Start Dose Route Frequency Last Action Ordered Stop 10/09/24 1600 [Order Held by LIP] apixaban 2.5 mg tab(s) (ELIQUIS) (apixaban tab(s) (ELIQUIS)) (On hold since yesterday at 0924 for 3 doses; held by Ellyn Starr PA-CHold Reason: [facility] Order to Hold This DoseHold Comment: Hold per Dr. Alonzo due to increased drainage from surgical site) On hold since yesterday at 0924 for 3 doses (Needs Review) Hold reason: LIP Order to Hold This Dose, Hold comment: Hold per Dr. Alonzo due to increased drainage from surgical site 2.5 mg ORAL 2 TIMES DAILY Given, 10/11 0810/08/24 1727 -- Active VTE Prophylaxis Orders: 10/07/242129 VTE CURRENT ANTICOAG THERAPY ([place], [place]) 10/07/242129 PNEUMATIC COMPRESSION SLEEVE(S) ([place]) 10/07/242129 ACTIVITY - MOBILIZE PATIENT ([place]) PHYSICAL EXAMINATION: Right Lower Extremity: Dorsalis pedis pulses palpable. Posterior tibial pulses palpable. Dorsi flexion 5/5. Plantar flexion 5/5. Extensor hallucis extension: 5/5. Sensory intact to light touch L1-S1. Silverlon dressing clean, dry, and intact. Mild serous shadowing under silverlon. DATA: Diagnostic tests reviewed for today's visit: Most recent labs and imaging results. SIGNATURE: Ellyn Starr PA-C PATIENT NAME: Angie Dutton DATE: October 12, 2024 TIME: 12:15 PM The patient has undergone major orthopedic surgery and participating in therapy. Pain cannot be managed within an average of 30 MED per day. Patient requiring average of higher than 30 MED per day in order to control pain and allow patient to actively and safely participate in therapy and this is the lowest dose consistent with patient's medical condition. Non-narcotic medication options have been discussed. In addition, the patient has been advised of the benefits and risks of the opioid (including the potential for addiction). Patient demonstrated understanding of risks vicente (more content not included)...[facility] [id number] NoteHNO ID: [id number] Author: BALWINDER SOUZA RN Service: Care Management Author Type: Registered Nurse Type: Care Mgt Progress Note Filed: 10/12/2024 09:03 Note Text: CARE MANAGEMENT PROGRESS NOTE SERVICE DATE: 10/12/2024 SERVICE TIME: 8:57 AM LOS: 1 day Needs Prior to Discharge: To Be Determined, OT/PT Evaluation, Precertification, Other: See Comment (Medical Clearance) EMR reviewed. HENS tasked to [facility] for [facility]. Will need updated PT/OT notes before tasking for Precert. Those have been requested. Envelope on chart for N2N. CM to follow for DC planning. SIGNATURE: Balwinder Souza RN PATIENT NAME: Angie Dutton DATE: October 12, 2024 TIME: 8:57 AMLake[facility] Medical [id number] NoteHNO ID: [id number] Author: YURIY SOLOMON MD Service: General Internal Medicine Author Type: Physician Type: Progress Notes Filed: 10/11/2024 11:28 Note Text: INPATIENT PROGRESS NOTES Patient Name: Angie Dutton DATE of SERVICE: 10/11/2024 TIME of SERVICE: 8:18 PRIMARY SERVICE: medicine INTERVAL HPI: Uneventful night, patient had episode of A-fib with RVR and SVT in early a.m. and patient returned to sinus rhythm with IV metoprolol. Had a similar episode later in the morning. Apparently patient did not receive his metoprolol yesterday.Noted to have increasing drainage ASSESSMENT AND PLAN: Osteoarthritis, status post right PARAS, DVT prophylaxis with Eliquis 2.5 mg twice a day Coronary artery disease, continue statin SVT/ A fib with RVR, continue B bryan Hypertension Hyperlipidemia CKD stage III avoid nephrotoxic drug GERD ITP PERTINENT ROS: All other reviewed and negative other than HPI. MEDICATIONS: Current Facility-Administered Medications Medication Dose Route Frequency isosorbide mononitrate ER 15 mg tab(s) (IMDUR) 15 mg ORAL DAILY simvastatin 40 mg tab(s) (ZOCOR) 40 mg ORAL AT BEDTIME metFORMIN ER 500 mg tab(s) (GLUCOPHAGE XR) 500 mg ORAL DAILY WITH BREAKFAST pantoprazole DR 40 mg tab(s) (PROTONIX) 40 mg ORAL DAILY (6 AM) gabapentin 400 mg cap(s) (NEURONTIN) 400 mg ORAL BID tamsulosin 0.4 mg cap(s) (FLOMAX) 0.4 mg ORAL DAILY (7 PM) acetaminophen 1,000 mg tab(s) (TYLENOL) 1,000 mg ORAL q 8 H oxyCODONE IR 5-10 mg tab(s) (ROXICODONE) 5-10 mg ORAL q 3 H PRN HYDROmorphone 0.4 mg injection (DILAUDID) 0.4 mg INTRAVENOUS q 4 H PRN ondansetron orally disintegrating 4 mg tab(s) (ZOFRAN ODT) 4 mg ORAL q 6 H PRN Or ondansetron (PF) 4 mg injection (ZOFRAN) 4 mg INTRAVENOUS q 6 H PRN magnesium hydroxide 400 mg/5 mL 30 mL (MOM) 30 mL ORAL DAILY PRN bisacodyl EC 10 mg tab(s) (DULCOLAX) 10 mg ORAL DAILY aluminum-magnesium hydroxide-simethicone 200-200-20 mg/5 mL 30 mL 30 mL ORAL q 2 H PRN ferrous sulfate 325 mg tab(s) 325 mg ORAL DAILY WITH BREAKFAST ascorbic acid (vitamin C) 500 mg tab(s) (VITAMIN C) 500 mg ORAL BID w MEALS senna 17.2 mg tab(s) (SENOKOT) 17.2 mg ORAL AT BEDTIME dextrose 40 % 15 g 15 g ORAL PRN Or glucagon 1 mg injection 1 mg INTRAMUSCULAR PRN Or dextrose 10% iv bolus 12.5 g INTRAVENOUS PRN insulin lispro injection (rapid acting) (ADMElog) SUBCUTANEOUS w MEALS insulin lispro injection (rapid acting) (ADMElog) SUBCUTANEOUS AT BEDTIME [Order Held by LIP] apixaban 2.5 mg tab(s) (ELIQUIS) 2.5 mg ORAL BID NaCl 0.9% iv flush bag 20 mL INTRAVENOUS PRN metoprolol succinate ER 50 mg tab(s) (TOPROL XL) 50 mg ORAL DAILY polyethylene glycol 3350 17 g packet 17 g ORAL DAILY PRN ceFAZolin iv piggyback 2 g in D5W (iso-osmotic) 100 mL (ANCEF) 2 g INTRAVENOUS q 8 HR phosphorus 250 mg tab(s) (K PHOS NEUTRAL) 250 mg ORAL BID PC amiodarone 400 mg tab(s) (PACERONE) 400 mg ORAL BID PHYSICAL EXAM: Blood pressure 105/55, pulse 86, temperature 36.8 ?C (98.2 ?F), resp. rate 16, height 176.5 cm (5' 9.5), weight 75 kg (165 lb 5.5 oz), SpO2 98%. Body mass index is 24.07 kg/m?. GENERAL: Alert, no distress, cooperative LUNGS: CTAB CARDIAC: Normal S1 and S2; no rubs, murmurs, or gallops ABDOMEN: Abdomen soft, non-tender, BS normal, No masses or organomegaly EXTREMITIES: no edema Wound 10/07/242052 Pressure Injury Coccyx (Active) Properties Placement Date 10/07/24 Placement Time 2052 Location Coccyx Present on Original Admission No Wound Number 1 Wound Approximate Age at First Assessment (Weeks) 1 weeks Primary Wound Type Pressure Injury If Pressure Injury, is it Device Related? If Yes, Add Device Type in Comment Box No Wound Description (Comments) stage 1, nonblanchable redness Assessments 10/07/2024 9:24 PM IF PATIENT HAS A PRESSURE INJURY: WHEN WAS IT ACQUIRED? (Document one time during this admission) Hospital Acquired during this Encounter CBC: Recent Labs 10/11/24 0508 WBC 5.27 RBC 3.12* HB 9.1* HCT 27.5* PLT 87* MCV 88.1 MCH 29.2 MPV 13.0* Coags: CMP: Recent Labs 10/11/24 0746 10/11/24 0508 10/09/24 1550 NA -- 136 136 K -- 4.2 4.4 CHLOR -- 102 104 CO2 -- 25 21* BUN -- 19 20 CREAT -- 1.11 1.20 GLUC -- 96 123* TPROT -- -- 5.4* CA -- 8.8 8.6 MG 2.1 -- 1.9 TBILI -- -- 0.7 ALKPHOS -- -- 45 ALT -- -- <5* AST -- -- 44* ANION -- 9 11 Cardiac Enzymes: Liver Function, Amylase, Lipase: No results for input(s): TPROT, ALB, ALT, AST, ALKPHOS, TBILI, AMYLASE, LIPASE, LACTATE in the last 24 hours. ABG's: No results for input(s): PH, PCO2, PO2, BE, HCO3, CO2CT, O2HB, COHB, MHGB, TEMP, PHTC, PCO2T, PO2T, O2AD in the last 24 hours. MG/PHOS: Recent Labs 10/11/24 0746 MG 2.1 P 2.0* SIGNATURE: Yuriy Solomon, [facility], [id number] NoteHNO ID: [id number] Author: ELLYN STARR PA-C Service: Orthopaedic Surgery Author Type: Physician Contact Lens Curve Grinder Type: Progress Notes Filed: 10/11/2024 10:48 Note Text: POSTOP NOTE ORTHOPAEDIC SURGERY SERVICE DATE: 10/11/2024 SERVICE TIME: 8:36 AM IMPRESSION/PLAN: S/P Procedure(s) (LRB): ROBOTIC ASSISTED ANTERIOR TOTAL HIP ARTHROPLASTY (Right) on 10/07/2024 Physical Therapy recommending SNF TDWB RLE, anterior hip precautions Dressing: prevena removed and new silverlon applied today 10/11/[address] Alonzo. Maintain silverlon x 1 week DVT prophylaxis: Intermittent pneumatic compression device (IPCD) and Hold Eliquis x 24 hours due to increased drainage from surgical site over last 12 hours. Pain control Recurrent PSVT and afib with RVR: cardiology consult; appreciate recs IM consult for medial management Antibiotics: IV ancef while in house, DC on Duricef 500mg twice daily for 2 weeks Case Management for discharge planning Plan of care discussed with: Provider, RN, Patient. Patient Active Hospital Problem List: S/P total right hip arthroplasty Date Noted: 10/10/2024 Primary osteoarthritis of right hip Date Noted: 10/07/2024 SVT (supraventricular tachycardia) (HCC) Date Noted: 10/09/2024 Pressure injury of coccygeal region, stage 1 Date Noted: 10/10/2024 At high risk for impaired skin integrity Date Noted: 10/10/2024 Atrial fibrillation with RVR (HCC) Date Noted: 10/11/2024 POST OPERATIVE COMPLICATIONS: Complicated by cardiac arrhythmia SUBJECTIVE: LEPIDOPTERIST called this morning due to recurrent SVT that turned into afib with RVR. Patient states that they are now doing well after receiving IV metoprolol. Well Controlled hip pain. RN reports increased serosanguinous drainage in wound vac canister over night. OBJECTIVE: VITAL SIGNS: BP 105/55 Pulse 86 Temp 36.8 ?C (98.2 ?F) Resp 16 Ht 176.5 cm (5' 9.5) Wt 75 kg (165 lb 5.5 oz) SpO2 98% BMI 24.07 kg/m? INTAKE AND OUTPUT: Intake/Output Summary (Last 24 hours) at 10/11/2024 1040 Last data filed at 10/11/2024 0917 Gross per 24 hour Intake 720 ml Output 1750 ml Net -1030 ml LABS: Hemoglobin Date Value Ref Range Status 10/11/2024 9.1 (L) 13.0 - 17.0 g/dL Final 10/09/2024 9.4 (L) 13.0 - 17.0 g/dL Final Hematocrit Date Value Ref Range Status 10/11/2024 27.5 (L) 39.0 - 51.0 % Final 10/09/2024 29.1 (L) 39.0 - 51.0 % Final Platelet Count Date Value Ref Range Status 10/11/2024 87 (L) 150 - 400 k/uL Final Comment: No clot detected. 10/09/2024 75 (L) 150 - 400 k/uL Final WBC Date Value Ref Range Status 10/11/2024 5.27 3.70 - 11.00 k/uL Final 10/09/2024 6.51 3.70 - 11.00 k/uL Final Creatinine Date Value Ref Range Status 10/11/2024 1.11 0.73 - 1.22 mg/dL Final 10/09/2024 1.20 0.73 - 1.22 mg/dL Final Potassium Date Value Ref Range Status 10/11/2024 4.2 3.7 - 5.1 mmol/L Final 10/09/2024 4.4 3.7 - 5.1 mmol/L Final VTE Prophylaxis: Active VTE Risk Category Order: 10/07/242129 VTE RISK CATEGORY: SURGICAL HIGH RISK ([place], [place]) Active VTE Medication Orders: Anticoagulant AND Antiplatelet Medications (From admission, onward) Start Dose Route Frequency Last Action Ordered Stop 10/09/24 1600 [Order Held by LIP] apixaban 2.5 mg tab(s) (ELIQUIS) (apixaban tab(s) (ELIQUIS)) (On hold since today at 0924 for 3 doses; held by Ellyn Satrr PA-CHold Reason: [facility] Order to Hold This DoseHold Comment: Hold per Dr. Alonzo due to increased drainage from surgical site) On hold since today at 0924 for 3 doses Hold reason: [facility] Order to Hold This Dose, Hold comment: Hold per Dr. Alonzo due to increased drainage from surgical site 2.5 mg ORAL 2 TIMES DAILY Given, 10/11 0810/08/24 1727 -- Active VTE Prophylaxis Orders: 10/07/242129 VTE CURRENT ANTICOAG THERAPY ([place]) 10/07/242129 PNEUMATIC COMPRESSION SLEEVE(S) ([place]) 10/07/242129 ACTIVITY - MOBILIZE PATIENT ([place]) PHYSICAL EXAMINATION: Right Lower Extremity: Dorsalis pedis pulses palpable. Posterior tibial pulses palpable. Dorsi flexion 5/5. Plantar flexion 5/5. Extensor hallucis extension: 5/5. Sensory intact to light touch L1-S1. Prevena wound vac functioning; dressing clean, dry, and intact. 100 cc serosanguinous drainage in wound vac cannister. PROCEDURE- Surgical site dressing change Surgical Site: right hip After discussion with Dr. Alonzo the decision was made to change the surgical site dressing. The prevena wound vac dressing was removed and incision was examined. The skin is well-approximated, no wound dehiscence, no signs concerning for infection. Tutu intact. There is trace serosanguinous drainage from the distal incision with palpation. The incision and per-incisional area was cleansed with chlorhexidine. Hemostasis was achieved with three nylon sutures thrown by Dr. Alonzo. Next, using sterile gloves and sterile technique we applied new silverlon dressings over the incision. This was covered wit (more content not included)...[facility] 10-11-2024 NoteHNO ID: [id number] Author: JEANETTE SALOMON MD Service: Cardiovascular Medicine Author Type: Physician Type: Progress Notes Filed: 10/11/2024 10:15 Note Text: PROGRESS NOTE CARDIOLOGY SERVICE SERVICE DATE: 10/11/2024 SERVICE TIME: 8:36 AM INTERIM HISTORY: Patient experienced a prolonged episode of AF with RVR / SVT at 07:20AM today for 15 minutes, with a max HR of 200 bpm, prompting an LEPIDOPTERIST activation. Upon arrival, HR 180s-190s on ZOLL monitor with symptoms of SOB, headache, dizziness, blurred vision, and diaphoresis. While being evaluated, the patient spontaneously converted from SVT to A. Fib w/ RVR (HR 130s). 5 mg IVP metoprolol administered and there was successful conversion to NSR (HR 80s) with complete symptom resolution. MEDICATIONS: Current Facility-Administered Medications Medication Dose Route Frequency isosorbide mononitrate ER 15 mg tab(s) (IMDUR) 15 mg ORAL DAILY simvastatin 40 mg tab(s) (ZOCOR) 40 mg ORAL AT BEDTIME metFORMIN ER 500 mg tab(s) (GLUCOPHAGE XR) 500 mg ORAL DAILY WITH BREAKFAST pantoprazole DR 40 mg tab(s) (PROTONIX) 40 mg ORAL DAILY (6 AM) gabapentin 400 mg cap(s) (NEURONTIN) 400 mg ORAL BID tamsulosin 0.4 mg cap(s) (FLOMAX) 0.4 mg ORAL DAILY (7 PM) acetaminophen 1,000 mg tab(s) (TYLENOL) 1,000 mg ORAL q 8 H oxyCODONE IR 5-10 mg tab(s) (ROXICODONE) 5-10 mg ORAL q 3 H PRN HYDROmorphone 0.4 mg injection (DILAUDID) 0.4 mg INTRAVENOUS q 4 H PRN ondansetron orally disintegrating 4 mg tab(s) (ZOFRAN ODT) 4 mg ORAL q 6 H PRN Or ondansetron (PF) 4 mg injection (ZOFRAN) 4 mg INTRAVENOUS q 6 H PRN magnesium hydroxide 400 mg/5 mL 30 mL (MOM) 30 mL ORAL DAILY PRN bisacodyl EC 10 mg tab(s) (DULCOLAX) 10 mg ORAL DAILY aluminum-magnesium hydroxide-simethicone 200-200-20 mg/5 mL 30 mL 30 mL ORAL q 2 H PRN ferrous sulfate 325 mg tab(s) 325 mg ORAL DAILY WITH BREAKFAST ascorbic acid (vitamin C) 500 mg tab(s) (VITAMIN C) 500 mg ORAL BID w MEALS senna 17.2 mg tab(s) (SENOKOT) 17.2 mg ORAL AT BEDTIME dextrose 40 % 15 g 15 g ORAL PRN Or glucagon 1 mg injection 1 mg INTRAMUSCULAR PRN Or dextrose 10% iv bolus 12.5 g INTRAVENOUS PRN insulin lispro injection (rapid acting) (ADMElog) SUBCUTANEOUS w MEALS insulin lispro injection (rapid acting) (ADMElog) SUBCUTANEOUS AT BEDTIME apixaban 2.5 mg tab(s) (ELIQUIS) 2.5 mg ORAL BID NaCl 0.9% iv flush bag 20 mL INTRAVENOUS PRN metoprolol succinate ER 50 mg tab(s) (TOPROL XL) 50 mg ORAL DAILY polyethylene glycol 3350 17 g packet 17 g ORAL DAILY PRN ceFAZolin iv piggyback 2 g in D5W (iso-osmotic) 100 mL (ANCEF) 2 g INTRAVENOUS q 8 HR phosphorus 250 mg tab(s) (K PHOS NEUTRAL) 250 mg ORAL BID PC Objective PHYSICAL EXAM: Patient Vitals for the past 24 hrs: BP Temp Temp src Pulse Resp SpO2 10/11/24 0801 105/55 36.8 ?C (98.2 ?F) -- 86 -- 98 % 10/11/24 0443 124/59 37.4 ?C (99.3 ?F) Oral 103 18 94 % 10/11/24 0400 120/58 -- -- 100 -- -- 10/11/24 0000 122/58 37.2 ?C (98.9 ?F) Temporal 106 18 94 % 10/10/24 2315 133/59 36.8 ?C (98.2 ?F) Temporal 110 16 93 % 10/10/24 2031 118/56 36.8 ?C (98.2 ?F) Temporal 100 18 -- 10/10/241999 -- -- -- 97 -- -- 10/10/24 160 -- -- -- -- 20 -- 10/10/241606 -- 36.7 ?C (98.1 ?F) Temporal -- 20 93 % 10/10/24 1600 -- -- -- 101 -- (!) 78 % 10/10/24 1218 -- 36.7 ?C (98 ?F) Oral -- 18 -- 10/10/24 1200 -- -- -- 89 -- 95 % 10/10/24 0847 100/51 -- -- 87 18 98 % Weight change: Body mass index is 24.07 kg/m?. Intake/Output Summary (Last 24 hours) at 10/11/2024 0836 Last data filed at 10/10/2024 2125 Gross per 24 hour Intake 1460 ml Output 1750 ml Net -290 ml General: Pt is able to communicate. Patient is not in acute respiratory distress. SKIN: No rash or lumps. Right hip incision is healing well. Eyes. Pupils are round and accommodative to light. Arcus senilis in R eye. HEENT: Normocephalic, face symmetrical. Normal pinna. Throat is without congestion. Pharyngeal structures are not crowded NECK: Supple, no JVD, no carotid bruit, no thyromegaly. LUNGS: Clear to auscultation bilaterally. CARDIAC: Normal S1 and S2, no systolic murmur. ABDOMEN: Soft, nontender, bowel sounds present. EXTREMITIES: No cyanosis, clubbing, edema. PULSES: Peripheral pulses are palpable in Dorsalis pedis and Posterior tibial arteries bilaterally. NEURO: Non-focal. Awake, alert, oriented times 3. Moves all extremities. MUSCULOSKELETAL: No fracture or dislocation of the bones or joints. Recent Labs 10/11/24 0746 10/11/24 0508 10/09/24 1550 WBC -- 5.27 6.51 RBC -- 3.12* 3.26* HB -- 9.1* 9.4* HCT -- 27.5* 29.1* PLT -- 87* 75* GLUC -- 96 123* BUN -- 19 20 CREAT -- 1.11 1.20 NA -- 136 136 K -- 4.2 4.4 CHLOR -- 102 104 CO2 -- 25 21* TPROT -- -- 5.4* ALB -- -- 3.0* CA -- 8.8 8.6 ALKPHOS -- -- 45 TBILI -- -- 0.7 AST -- -- 44* ALT -- -- <5* MG 2.1 -- 1.9 Diagnostic tests reviewed I reviewed the imaging result from the radiology section. Most recent EKG: NSR (more content not included)...[facility] CenterZwuljcae68-79-1052 NoteHNO ID: [id number] Author: ELLYN STARR PA-C Service: Orthopaedic Surgery Author Type: Physician Contact Lens Curve Grinder Type: Progress Notes Filed: 10/10/2024 16:23 Note Text: POSTOP NOTE ORTHOPAEDIC SURGERY SERVICE DATE: 10/10/2024 SERVICE TIME: 4:12 PM IMPRESSION/PLAN: S/P Procedure(s) (LRB): ROBOTIC ASSISTED ANTERIOR TOTAL HIP ARTHROPLASTY (Right) on 10/07/2024 Physical Therapy recommending SNF TDWB RLE, anterior hip precautions Dressing: prevena x 1 week then silverlon x 1 week DVT prophylaxis: Intermittent pneumatic compression device (IPCD) and Eliquis 2.5 mg POD1-4, then resume full dose on POD5 if dressing dry. Hold Plavix until POD8 Pain control PSVT: cardiology consult; appreciate recs IM consult for medial management Antibiotics: IV ancef while in house, DC on Duricef 500mg twice daily for 2 weeks Case Management for discharge planning Plan of care discussed with: Provider, RN, Patient. Patient Active Hospital Problem List: S/P total right hip arthroplasty Date Noted: 10/10/2024 Primary osteoarthritis of right hip Date Noted: 10/07/2024 SVT (supraventricular tachycardia) (HCC) Date Noted: 10/09/2024 Pressure injury of coccygeal region, stage 1 Date Noted: 10/10/2024 At high risk for impaired skin integrity Date Noted: 10/10/2024 POST OPERATIVE COMPLICATIONS: Complicated by cardiac arrhythmia SUBJECTIVE: NAEO. Patient states that they are comfortable Well Controlled hip pain. Mild incisional pain. OBJECTIVE: VITAL SIGNS: BP 100/51 Pulse 101 Temp 36.7 ?C (98.1 ?F) (Temporal) Resp 20 Ht 176.5 cm (5' 9.5) Wt 75 kg (165 lb 5.5 oz) SpO2 93% BMI 24.07 kg/m? INTAKE AND OUTPUT: Intake/Output Summary (Last 24 hours) at 10/10/2024 1612 Last data filed at 10/10/2024 1609 Gross per 24 hour Intake 1220 ml Output 2250 ml Net -1030 ml LABS: Hemoglobin Date Value Ref Range Status 10/09/2024 9.4 (L) 13.0 - 17.0 g/dL Final 10/08/2024 10.6 (L) 13.0 - 17.0 g/dL Final Hematocrit Date Value Ref Range Status 10/09/2024 29.1 (L) 39.0 - 51.0 % Final 10/08/2024 33.9 (L) 39.0 - 51.0 % Final Platelet Count Date Value Ref Range Status 10/09/2024 75 (L) 150 - 400 k/uL Final 10/08/2024 102 (L) 150 - 400 k/uL Final Comment: No clot detected. WBC Date Value Ref Range Status 10/09/2024 6.51 3.70 - 11.00 k/uL Final 10/08/2024 7.12 3.70 - 11.00 k/uL Final Creatinine Date Value Ref Range Status 10/09/2024 1.20 0.73 - 1.22 mg/dL Final 10/08/2024 1.20 0.73 - 1.22 mg/dL Final Potassium Date Value Ref Range Status 10/09/2024 4.4 3.7 - 5.1 mmol/L Final 10/08/2024 5.0 3.7 - 5.1 mmol/L Final VTE Prophylaxis: Active VTE Risk Category Order: 10/07/242129 VTE RISK CATEGORY: SURGICAL HIGH RISK ([place], [place]) Active VTE Medication Orders: Anticoagulant AND Antiplatelet Medications (From admission, onward) Start Dose Route Frequency Last Action Ordered Stop 10/09/24 1600 apixaban 2.5 mg tab(s) (ELIQUIS) (apixaban tab(s) (ELIQUIS)) 2.5 mg ORAL 2 TIMES DAILY Given, 10/10 0841 10/08/241726 -- Active VTE Prophylaxis Orders: 10/07/242129 VTE CURRENT ANT[place]Y ([place] 10/07/242129 PNEUMATIC COMPRESSION SLEEVE(S) [place] 10/07/242129 ACTIVITY - MOBILIZE PATIENT ([place], [place]) PHYSICAL EXAMINATION: Right Lower Extremity: Dorsalis pedis pulses palpable. Posterior tibial pulses palpable. Dorsi flexion 5/5. Plantar flexion 5/5. Extensor hallucis extension: 5/5. Sensory intact to light touch L1-S1. Prevena wound vac functioning; dressing clean, dry, and intact. Scant serosanguinous drainage in wound vac cannister. DATA: Diagnostic tests reviewed for today's visit: Most recent labs and imaging results. SIGNATURE: Ellyn Starr PA-C PATIENT NAME: Angie Dutton DATE: October 10, 2024 TIME: 4:12 PM The patient has undergone major orthopedic surgery and participating in therapy. Pain cannot be managed within an average of 30 MED per day. Patient requiring average of higher than 30 MED per day in order to control pain and allow patient to actively and safely participate in therapy and this is the lowest dose consistent with patient's medical condition. Non-narcotic medication options have been discussed. In addition, the patient has been advised of the benefits and risks of the opioid (including the potential for addiction). Patient demonstrated understanding of risks versus benefits.[facility] CenterUdovhgwy18-22-9496 NoteHNO ID: [id number] Author: RYAN ALONZO MD Service: Care Management Author Type: Registered Nurse Type: Care Mgt Progress Note Filed: 10/11/2024 06:46 Note Text: Attestation signed by Ryan Alonzo MD at 10/11/2024 6:46 AM Agree with the note as documented below Ryan Alonzo MD CARE MANAGEMENT PROGRESS NOTE SERVICE DATE: 10/10/2024 SERVICE TIME: 2:17 PM LOS: 0 days Physician Certification of Less Than 30 Days Skilled Needs Earliest Possible Discharge Date: 10/10/24 To the best of my knowledge, all information provided about the individual is a true and an accurate reflection of Angie Dutton's needs. I certify that following the inpatient level of care, a post-acute nursing facility stay is required for less than 30 days related to the condition(s) for which the patient was treated during the inpatient level of care: Principal Problem: S/P total right hip arthroplasty Active Problems: Primary osteoarthritis of right hip SVT (supraventricular tachycardia) (HCC) Pressure injury of coccygeal region, stage 1 At high risk for impaired skin integrity Resolved Problems: * No resolved hospital problems. * Attending Physician: Ryan Alonzo* SIGNATURE: Becca Bey RN PATIENT NAME: Angie Dutton DATE: October 10, 2024 TIME: 2:17 PMLakehealth Tripoint Medical CenterVzkntytq01-84-6526 NoteHNO ID: [id number] Author: BECCA BEY RN Service: Care Management Author Type: Registered Nurse Type: Care Mgt Progress Note Filed: 10/10/2024 15:13 Note Text: CARE MANAGEMENT PROGRESS NOTE SERVICE DATE: 10/10/2024 SERVICE TIME: 2:09 PM LOS: 0 days Needs Prior to Discharge: To Be Determined, Bed Availability, Precertification, Accepting Facility [place] of Choice Given: Yes Level of Care Discussed: Alf Facility Financial Disclosure Provided: Yes Provider List: Alf Facility Provider list within the patient's requested geographic area shared with the patient/family: Yes of zip code: [address] Quality and resource use metrics shared with the patient that are relevant to the patient's goals of care and treatment preferences:: Yes Metrics: Functional Status, Discharge to Community, Potentially Preventable 30-day Post Discharge Readmission Rates EMR reviewed. Call placed to brandee Villanueva to discuss discharge planning. PT/OT rec SNF. He advised that his mom was at [facility] in the past and they liked that facility, would like to see if patient can go there. Referral placed. Will need precert. 3:11 PM [facility] can accept. Call placed to brandee Villanueva to update. Discussed transportation and possible cost for medical transport. He said that would need to be discussed with his brother in [facility] but he thinks he will agree to have us transport patient. Will discuss with Kyler closer to discharge. Message sent to Dr Solomon and Dr Alonzo inquiring when we should start precert and asking for attestation note to be co-signed. SIGNATURE: Becca Bey RN PATIENT NAME: Angie Dutton DATE: October 10, 2024 TIME: 2:09 PMLakehealth Tripoint Medical CenterIpkfjklw02-31-7504 NoteHNO ID: [id number] Author: YURIY SOLOMON MD Service: General Internal Medicine Author Type: Physician Type: Progress Notes Filed: 10/10/2024 09:14 Note Text: INPATIENT PROGRESS NOTES Patient Name: Angie Dutton DATE of SERVICE: 10/10/2024 TIME of SERVICE: 8:15 PRIMARY SERVICE: medicine INTERVAL HPI: Uneventful night, no nausea or vomiting. Pain is fairly controlled, denies palpitation or sob. SVT last afternoon received amiodarone bolus, remain sinus ASSESSMENT AND PLAN: Osteoarthritis, status post right PARAS, DVT prophylaxis with Eliquis 2.5 mg twice a day Coronary artery disease, continue statin SVT continue B bryan Hypertension Hyperlipidemia CKD stage III avoid nephrotoxic drug GERD ITP Patient will need short-term rehab PERTINENT ROS: All other reviewed and negative other than HPI. MEDICATIONS: Current Facility-Administered Medications Medication Dose Route Frequency isosorbide mononitrate ER 15 mg tab(s) (IMDUR) 15 mg ORAL DAILY simvastatin 40 mg tab(s) (ZOCOR) 40 mg ORAL AT BEDTIME metFORMIN ER 500 mg tab(s) (GLUCOPHAGE XR) 500 mg ORAL DAILY WITH BREAKFAST pantoprazole DR 40 mg tab(s) (PROTONIX) 40 mg ORAL DAILY (6 AM) gabapentin 400 mg cap(s) (NEURONTIN) 400 mg ORAL BID tamsulosin 0.4 mg cap(s) (FLOMAX) 0.4 mg ORAL DAILY (7 PM) acetaminophen 1,000 mg tab(s) (TYLENOL) 1,000 mg ORAL q 8 H oxyCODONE IR 5-10 mg tab(s) (ROXICODONE) 5-10 mg ORAL q 3 H PRN HYDROmorphone 0.4 mg injection (DILAUDID) 0.4 mg INTRAVENOUS q 4 H PRN ondansetron orally disintegrating 4 mg tab(s) (ZOFRAN ODT) 4 mg ORAL q 6 H PRN Or ondansetron (PF) 4 mg injection (ZOFRAN) 4 mg INTRAVENOUS q 6 H PRN magnesium hydroxide 400 mg/5 mL 30 mL (MOM) 30 mL ORAL DAILY PRN bisacodyl EC 10 mg tab(s) (DULCOLAX) 10 mg ORAL DAILY aluminum-magnesium hydroxide-simethicone 200-200-20 mg/5 mL 30 mL 30 mL ORAL q 2 H PRN ferrous sulfate 325 mg tab(s) 325 mg ORAL DAILY WITH BREAKFAST ascorbic acid (vitamin C) 500 mg tab(s) (VITAMIN C) 500 mg ORAL BID w MEALS senna 17.2 mg tab(s) (SENOKOT) 17.2 mg ORAL AT BEDTIME dextrose 40 % 15 g 15 g ORAL PRN Or glucagon 1 mg injection 1 mg INTRAMUSCULAR PRN Or dextrose 10% iv bolus 12.5 g INTRAVENOUS PRN insulin lispro injection (rapid acting) (ADMElog) SUBCUTANEOUS w MEALS insulin lispro injection (rapid acting) (ADMElog) SUBCUTANEOUS AT BEDTIME apixaban 2.5 mg tab(s) (ELIQUIS) 2.5 mg ORAL BID cephALEXin 500 mg cap(s) (KEFLEX) 500 mg ORAL q 8 H NaCl 0.9% iv flush bag 20 mL INTRAVENOUS PRN metoprolol succinate ER 50 mg tab(s) (TOPROL XL) 50 mg ORAL DAILY PHYSICAL EXAM: Blood pressure 100/51, pulse 87, temperature 36.6 ?C (97.9 ?F), temperature source Oral, resp. rate 18, height 176.5 cm (5' 9.5), weight 75 kg (165 lb 5.5 oz), SpO2 98%. Body mass index is 24.07 kg/m?. GENERAL: Alert, no distress, cooperative NECK: No jugulovenous distention LUNGS: CTAB CARDIAC: Normal S1 and S2; no rubs, murmurs, or gallops ABDOMEN: Abdomen soft, non-tender, BS normal, No masses or organomegaly EXTREMITIES: no edema Wound 10/07/242052 Pressure Injury Coccyx (Active) Properties Placement Date 10/07/24 Placement Time 2052 Location Coccyx Present on Original Admission No Wound Number 1 Wound Approximate Age at First Assessment (Weeks) 1 weeks Primary Wound Type Pressure Injury If Pressure Injury, is it Device Related? If Yes, Add Device Type in Comment Box No Wound Description (Comments) stage 1, nonblanchable redness Assessments 10/07/2024 9:24 PM IF PATIENT HAS A PRESSURE INJURY: WHEN WAS IT ACQUIRED? (Document one time during this admission) Hospital Acquired during this Encounter CBC: Recent Labs 10/09/24 1550 WBC 6.51 RBC 3.26* HB 9.4* HCT 29.1* PLT 75* MCV 89.3 MCH 28.8 MPV 12.4 Coags: CMP: Recent Labs 10/09/24 1550 NA 136 K 4.4 CHLOR 104 CO2 21* BUN 20 CREAT 1.20 GLUC 123* TPROT 5.4* CA 8.6 MG 1.9 TBILI 0.7 ALKPHOS 45 ALT <5* AST 44* ANION 11 Cardiac Enzymes: Liver Function, Amylase, Lipase: Recent Labs 10/09/24 1550 TPROT 5.4* ALB 3.0* ALT <5* AST 44* ALKPHOS 45 TBILI 0.7 ABG's: No results for input(s): PH, PCO2, PO2, BE, HCO3, CO2CT, O2HB, COHB, MHGB, TEMP, PHTC, PCO2T, PO2T, O2AD in the last 24 hours. MG/PHOS: Recent Labs 10/09/24 1550 MG 1.9 P 2.0* SIGNATURE: Yuriy Solomon [facility] BeachwoodOzosofun89-01-9017 NoteHNO ID: [id number] Author: HARLEEN HADDAD RN Service: Nursing Author Type: Registered Nurse Type: Nursing Progress Note Filed: 10/09/2024 16:26 Note Text: Assumed patient form Summer RN [address] [place], [place] [id number] NoteHNO ID: [id number] Author: YURIY SOLOMON MD Service: General Internal Medicine Author Type: Physician Type: Progress Notes Filed: 10/09/2024 15:43 Note Text: INPATIENT PROGRESS NOTES Patient Name: Angie Dutton DATE of SERVICE: 10/09/2024 TIME of SERVICE: 9:35 PRIMARY SERVICE: medicine INTERVAL HPI: Uneventful night, no nausea or vomiting. Pain is fairly controlled ASSESSMENT AND PLAN: Osteoarthritis, status post right PARAS, DVT prophylaxis with Eliquis 2.5 mg twice a day Coronary artery disease Hypertension Hyperlipidemia CKD stage III avoid nephrotoxic drug GERD ITP Continue rest of the medications Patient will need short-term rehab Plan of care discussed with: Provider, RN, Patient. PERTINENT ROS: All other reviewed and negative other than HPI. MEDICATIONS: Current Facility-Administered Medications Medication Dose Route Frequency isosorbide mononitrate ER 15 mg tab(s) (IMDUR) 15 mg ORAL DAILY metoprolol succinate ER 50 mg tab(s) (TOPROL XL) 50 mg ORAL DAILY simvastatin 40 mg tab(s) (ZOCOR) 40 mg ORAL AT BEDTIME metFORMIN ER 500 mg tab(s) (GLUCOPHAGE XR) 500 mg ORAL DAILY WITH BREAKFAST pantoprazole DR 40 mg tab(s) (PROTONIX) 40 mg ORAL DAILY (6 AM) gabapentin 400 mg cap(s) (NEURONTIN) 400 mg ORAL BID tamsulosin 0.4 mg cap(s) (FLOMAX) 0.4 mg ORAL DAILY (7 PM) acetaminophen 1,000 mg tab(s) (TYLENOL) 1,000 mg ORAL q 8 H oxyCODONE IR 5-10 mg tab(s) (ROXICODONE) 5-10 mg ORAL q 3 H PRN HYDROmorphone 0.4 mg injection (DILAUDID) 0.4 mg INTRAVENOUS q 4 H PRN ondansetron orally disintegrating 4 mg tab(s) (ZOFRAN ODT) 4 mg ORAL q 6 H PRN Or ondansetron (PF) 4 mg injection (ZOFRAN) 4 mg INTRAVENOUS q 6 H PRN magnesium hydroxide 400 mg/5 mL 30 mL (MOM) 30 mL ORAL DAILY PRN bisacodyl EC 10 mg tab(s) (DULCOLAX) 10 mg ORAL DAILY aluminum-magnesium hydroxide-simethicone 200-200-20 mg/5 mL 30 mL 30 mL ORAL q 2 H PRN ferrous sulfate 325 mg tab(s) 325 mg ORAL DAILY WITH BREAKFAST ascorbic acid (vitamin C) 500 mg tab(s) (VITAMIN C) 500 mg ORAL BID w MEALS senna 17.2 mg tab(s) (SENOKOT) 17.2 mg ORAL AT BEDTIME dextrose 40 % 15 g 15 g ORAL PRN Or glucagon 1 mg injection 1 mg INTRAMUSCULAR PRN Or dextrose 10% iv bolus 12.5 g INTRAVENOUS PRN insulin lispro injection (rapid acting) (ADMElog) SUBCUTANEOUS w MEALS insulin lispro injection (rapid acting) (ADMElog) SUBCUTANEOUS AT BEDTIME apixaban 2.5 mg tab(s) (ELIQUIS) 2.5 mg ORAL BID cephALEXin 500 mg cap(s) (KEFLEX) 500 mg ORAL q 8 H PHYSICAL EXAM: Patient Vitals for the past 24 hrs: BP Temp Temp src Pulse Resp SpO2 10/09/24 1529 (!) 75/47 -- -- (!) 205 -- 98 % 10/09/24 0831 109/51 37.1 ?C (98.7 ?F) Oral 103 18 89 % 10/09/24 0141 110/52 -- -- -- -- -- 10/09/24 0133 (!) 106/49 37 ?C (98.6 ?F) Oral 91 18 97 % 10/08/24 2043 133/53 37.1 ?C (98.8 ?F) Oral 90 18 93 % 10/08/24 1553 138/60 36.7 ?C (98.1 ?F) Oral 95 16 93 % Body mass index is 24.07 kg/m?. GENERAL: Alert, no distress, cooperative NECK: No jugulovenous distention LUNGS: Lungs clear to auscultation, CARDIAC: Normal S1 and S2; no rubs, murmurs, or gallops ABDOMEN: Abdomen soft, non-tender, BS normal, No masses or organomegaly EXTREMITIES: no edema Wound 10/07/242052 Pressure Injury Coccyx (Active) Properties Placement Date 10/07/24 Placement Time 2052 Location Coccyx Present on Original Admission No Wound Number 1 Wound Approximate Age at First Assessment (Weeks) 1 weeks Primary Wound Type Pressure Injury If Pressure Injury, is it Device Related? If Yes, Add Device Type in Comment Box No Wound Description (Comments) stage 1, nonblanchable redness Assessments 10/07/2024 9:24 PM IF PATIENT HAS A PRESSURE INJURY: WHEN WAS IT ACQUIRED? (Document one time during this admission) Hospital Acquired during this Encounter CBC: Recent Labs 10/08/24 0409 WBC 7.12 RBC 3.80* HB 10.6* HCT 33.9* PLT 102* MCV 89.2 MCH 27.9 MPV 12.2 Coags: CMP: Recent Labs 10/08/24 0409 NA 141 K 5.0 CHLOR 106 CO2 26 BUN 17 CREAT 1.20 GLUC 139* CA 8.8 ANION 9 Cardiac Enzymes: Liver Function, Amylase, Lipase: No results for input(s): TPROT, ALB, ALT, AST, ALKPHOS, TBILI, AMYLASE, LIPASE, LACTATE in the last 24 hours. ABG's: No results for input(s): PH, PCO2, PO2, BE, HCO3, CO2CT, O2HB, COHB, MHGB, TEMP, PHTC, PCO2T, PO2T, O2AD in the last 24 hours. MG/PHOS: No results for input(s): MG, P in the last 24 hours. SIGNATURE: Yuriy Solomon MD DATE: October 09, 2024 TIME: 3:39 PMLakehealth Tripoint Medical CenterSrcokevz54-63-5187 NoteHNO ID: [id number] Author: ELICEO CONCEPCION MD Service: Orthopaedic Surgery Author Type: Physician Type: Progress Notes Filed: 10/09/2024 06:42 Note Text: ORTHOPAEDIC SURGERY PROGRESS NOTE PATIENT NAME: Angie Dutton A/P: This is a 84 year old year old male s/p Procedure(s) (LRB): ROBOTIC ASSISTED ANTERIOR TOTAL HIP ARTHROPLASTY (Right) on 10/07/2024 - Activity: TDWB RLE - Wound: Silver dressing x 7 days - Antibiotics: Ancef x24 hrs and keflex x2 weeks - Pain - PO and IV breakthrough - Imaging: complete - DVT prophylaxis - SCDs, Eliquis 2.5 mg BID x3 days then resume home dose - HLIV when tolerating sufficient PO - Ward: DC if still in * Discharge planning - PT recs --> SNF - Case Management --> appreciate assistance with discharge needs - Dispo: anticipate DC to SNF pending placement vs home if clears PT Plan of care discussed with: Patient. S: NAEO. Doing well, pain well controlled, denies n/v/cp/sob. VITALS: 10/08/24 1553 10/08/24 2043 10/09/24 0133 10/09/24 0141 BP: 138/60 133/53 (!) 106/49 110/52 Pulse: 95 90 91 Resp: 16 18 18 Temp: 36.7 ?C (98.1 ?F) 37.1 ?C (98.8 ?F) 37 ?C (98.6 ?F) TempSrc: Oral Oral Oral SpO2: 93% 93% 97% Weight: Height: Intake/Output Summary (Last 24 hours) at 10/09/2024 0641 Last data filed at 10/09/2024 0559 Gross per 24 hour Intake 240 ml Output 3050 ml Net -2810 ml Labs: CBC: Recent Labs 10/08/24 0409 10/07/24203210/07/24 0638 WBC 7.12 7.27 3.71 HB 10.6* 10.6* 11.2* HCT 33.9* 32.8* 34.7* PLT 102* 110* 89* MCV 89.2 87.2 89.2 RDWCV 15.2* 15.0 15.5* COAG: No results for input(s): APTT, INR in the last 168 hours. BMP: Recent Labs 10/08/24 0409 GLUC 139* NA 141 K 5.0 CHLOR 106 CO2 26 ANION 9 BUN 17 CREAT 1.20 CHEM: Recent Labs 10/08/24 0409 CA 8.8 URINALYSIS: Recent Labs 10/07/24 1710 PH 7.33* Physical Exam: * Gen: awake, alert, converses appropriately, NAD * Resp: Unlabored on RA, no audible wheezing * RLE: - dressing c,d,i - intact EHL/FHL/TA/GSC - SILT Sp/Dp/Tib/Mirta/Saph - 2+ DP pulse, toes wwp Eliceo Concepcion MD Orthopaedic Surgery Adult Reconstruction Fellow [phone] [id number] Telephone encounter Note* Telephone Encounter - Elle Thomas PSS - 10/08/2024 12:51 PM EST Date/Time: 10/08/2024 12:51 PM Spoke with PATIENT @ phone #: - Preferred # for contact: Have you received help from a home care company in the last 60 days? NO Are you agreeable to [facility] services? YES What address will we be seeing you at? [address] [facility] [address] Do you have any upcoming appointments or things we need to schedule around? DOES DOES NOT KNOW . MAY HAVE A HEART APPOINTMENT THIS WEEK - NOT SURE OF THE DAY Do you have a teachable CG or can you manage your care independently? YES Who? SPOUSE: BROOKE Have you received the flu shot? YES If so, when and where? 05/17/25 [facility]02-15-2025 Miscellaneous Notes* Telephone Encounter - Elle Thomas PSS - 10/08/2024 12:51 PM EST Date/Time: 10/08/2024 12:51 PM Spoke with PATIENT @ phone #: - Preferred # for contact: Have you received help from a home care company in the last 60 days? NO Are you agreeable to [facility] services? YES What address will we be seeing you at? [address] [facility] [address] Do you have any upcoming appointments or things we need to schedule around? DOES DOES NOT KNOW . MAY HAVE A HEART APPOINTMENT THIS WEEK - NOT SURE OF THE DAY Do you have a teachable CG or can you manage your care independently? YES Who? SPOUSE: BROOKE Have you received the flu shot? YES If so, when and where? 05/17/[facility] NoteHNO ID: [id number] Author: ELICEO CONCEPCION MD Service: Orthopaedic Surgery Author Type: Physician Type: Progress Notes Filed: 10/08/2024 06:30 Note Text: ORTHOPAEDIC SURGERY PROGRESS NOTE PATIENT NAME: Angie Dutton A/P: This is a 84 year old year old male s/p Procedure(s) (LRB): ROBOTIC ASSISTED ANTERIOR TOTAL HIP ARTHROPLASTY (Right) on 10/07/2024 - Activity: TDWB RLE - Wound: Silver dressing x 7 days - Antibiotics: Ancef x24 hrs and keflex x2 weeks - Pain - PO and IV breakthrough - Imaging: complete - DVT prophylaxis - SCDs, Eliquis 2.5 mg BID x3 days then resume home dose - HLIV when tolerating sufficient PO - Ward: DC if still in * Discharge planning - Await PT recs - Case Management --> appreciate assistance with discharge needs - Dispo: anticipate DC to home on POD 1 pending PT clearance Plan of care discussed with: Patient. S: NAEO. Doing well, pain well controlled, denies n/v/cp/sob. VITALS: 10/07/24 2128 10/07/24 2207 10/07/24 2233 10/08/24 0417 BP: 153/78 141/67 149/72 149/75 Pulse: 90 93 97 94 Resp: 18 16 16 16 Temp: 36.3 ?C (97.3 ?F) 36.4 ?C (97.5 ?F) 36.4 ?C (97.5 ?F) 36.4 ?C (97.5 ?F) TempSrc: Axillary Axillary Axillary Axillary SpO2: 94% 92% 93% Weight: Height: Intake/Output Summary (Last 24 hours) at 10/08/2024 0628 Last data filed at 10/08/2024 0618 Gross per 24 hour Intake 4116 ml Output 1450 ml Net 2666 ml Labs: CBC: Recent Labs 10/08/24 0409 10/07/24 2033 10/07/24 0638 WBC 7.12 7.27 3.71 HB 10.6* 10.6* 11.2* HCT 33.9* 32.8* 34.7* PLT 102* 110* 89* MCV 89.2 87.2 89.2 RDWCV 15.2* 15.0 15.5* COAG: No results for input(s): APTT, INR in the last 168 hours. BMP: Recent Labs 10/08/24 0409 GLUC 139* NA 141 K 5.0 CHLOR 106 CO2 26 ANION 9 BUN 17 CREAT 1.20 CHEM: Recent Labs 10/08/24 0409 CA 8.8 URINALYSIS: Recent Labs 10/07/24 1710 PH 7.33* Physical Exam: * Gen: awake, alert, converses appropriately, NAD * Resp: Unlabored on RA, no audible wheezing * RLE: - dressing c,d,i - intact EHL/FHL/TA/GSC - SILT Sp/Dp/Tib/Mirta/Saph - 2+ DP pulse, toes wwp Eliceo Concepcion MD Orthopaedic Surgery Adult Reconstruction Fellow [phone] [id number] NoteHNO ID: [id number] Author: HARLEEN GARCIA MD Service: Anesthesiology Author Type: Anesthesiologist Type: Anesthesia Procedure Notes Filed: 10/07/2024 15:40 Note Text: ANESTHESIOLOGY PROCEDURE NOTE A-Line General Information Procedure Start Time/Medication Administration: 10/07/2024 2:44 PM Procedure End Time: 10/07/2024 2:44 PM Patient location during procedure: OR Consent Obtained: Yes Indications: continuous blood pressure monitoring Staffing Anesthesiologist: Harleen Garcia MD Performed by: anesthesiologist Preparation Sterility Preparation: hand hygiene performed prior to procedure, surgical cap used, mask used, skin prep agent completely dried prior to procedure Site Prep: Chlorhexidine Procedure Details Catheter Type: arterial line Catheter Size: 20 G Catheter Length: 1.88 in Micropuncture Kit Used: No Guidewire Used: Yes Guidewire Removed Intact: No Laterality: left Site: radial artery Ultrasound Guided: No Line Secured: occlusive biodressing Events Events: patient tolerated procedure well with no complications Comments For this procedure, I personally performed this procedure. Harleen Garcia MD SIGNATURE: Harleen Garcia MD PATIENT NAME: Angie Dutton DATE: October 07, 2024 TIME: 3:35 PM CSN: [id number] NoteHNO ID: [id number] Author: HARLEEN GARCIA MD Service: Anesthesiology Author Type: Anesthesiologist Type: Anesthesia Procedure Notes Filed: 10/07/2024 15:34 Note Text: ANESTHESIOLOGY PROCEDURE NOTE PIV General Information Procedure Start Time/Medication Administration: 10/07/2024 2:40 PM Procedure End Time: 10/07/2024 2:40 PM Patient Location: OR Staffing Anesthesiologist: Harleen Garcia MD Performed by: anesthesiologist Preparation Sterility Preparation: hand hygiene performed prior to procedure, sterile gloves, drapes, and procedure tray, surgical cap used, mask used, skin prep agent completely dried prior to procedure Site Prep: chlorhexidine Procedure Details Indication: need for IV access Needle Size/Type: 18 gauge angiocath Orientation: Left Location: Forearm Imaging Guidance Used: No SIGNATURE: Harleen Garcia MD PATIENT NAME: Angie Dutton DATE: October 07, 2024 TIME: 3:33 PM CSN: [id number] NoteHNO ID: [id number] Author: MARISA BORJAS APRN.CRNA Service: Anesthesiology Author Type: Nurse Wool Tamper Type: Anesthesia Procedure Notes Filed: 10/07/2024 15:16 Note Text: ANESTHESIOLOGY PROCEDURE NOTE Airway General Information Procedure Start Time/Medication Administration: 10/07/2024 2:45 PM Procedure End Time: 10/07/2024 2:45 PM Patient location during procedure: OR Timeout Performed Pre-procedure: timeout performed Consent Obtained: Yes Patient identity confirmed: arm band Staffing ART PROFESSOR: Marisa Borjas APRN.ART PROFESSOR Performed by: RAO Indications and Patient Condition Indications for airway management: anesthesia Preoxygenated: yes anesthesia circuit Patient position: sniffing Method: asleep Cricoid Pressure: Yes Manual In-Line Stabilization: No Difficult Mask: No Final Airway Details Final airway type: endotracheal airway Final Endotracheal Airway: ETT Cuffed: yes Successful intubation technique: direct laryngoscopy Endotracheal tube insertion site: oral Blade: Carrol Blade size: #4 ETT size (mm): 7.5 Measured from: lips Measurement (cm): 22 Placement verified by: chest auscultation and capnometry Cormack-Lehane Classification: grade I - full view of glottis Number of attempts at approach: 1 Failed airway: no Unrecognized esophageal intubation: no Airway not difficult SIGNATURE: Marisa Montenegro APRN.CRNA PATIENT NAME: Angie Dutton DATE: October 07, 2024 TIME: 3:15 PM CSN: [id number] History and physical note * Anne Alexander APRN.CNP - 09/30/2024 10:35 AM EST Images from the original note were not included. 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 He is agreeable. He will hold plavix starting 09/29 and eliquis 10/04. Patient verbalized this plan several times. He will also get a CBC on 10/06 prior to surgery. 03/02/2024 Dr. Tavares ASSESSMENT/PLAN: Preoperative cardiovascular exam Patient notes possible need for right hip surgery He will be an intermediate to higher cardiac risk He has no cardiac symptoms and remains in sinus He may hold Eliquis for 2-3 days prior to surgery and restart after safe from a surgical standpoint. Paroxysmal atrial fibrillation - sinus with frequent PACs on today's ekg - found to have AF RVR at admission to [facility] 09/2023 - converted to SR on admission - echo on admission normal EF, grade II DD, moderate LAE. - started on Toprol 50 mg daily and Eliquis 5 mg BID - regular on exam today - Toprol decreased to 25 mg daily last visit as he was concerned with low BP readings (increased to50 mg with RVR in [facility]) - [facility] 10/2023 no AF noted but had pSVT Coronary artery disease involving [place] coronary artery of [place] heart without angina pectoris - s/p CABGx 3 1985, PCI stent - 2007 - plavix 75 mg daily, Toprol 50 daily, simvastatin 40 mg and Imdur 15 mg daily - Continue secondary prevention Essential hypertension, benign - optimal control today >> patient voiced concerns about lower BP since starting Toprol for his AF. - Encouraged dietary sodium restriction/DASH diet - Recommended regular aerobic exercise. - Reviewed risks of HTN and principles of treatment - Goal of BP <130/80 Mixed hyperlipidemia - optimal control with LDL 59, 03/2023 and goal at < 70 - Continue current medication (simvastatin 40 mg, ezetimibe 10 mg) TIA (transient ischemic attack) - ? Related to undiagnosed AF - on Eliquis, Plavix and BB now We had a very long discussion reviewing the pathophysiology, testing and treatment options for Atrial Fibrillation. I discussed the risk of a thromboembolic event from this rhythm in reference to [id number] scoring and the risk of anticoagulation if needed according to the HAS-BLED scoring and oth er contributing risks. We discussed some of the causative factors often leading to AF including, but not limited to, hypertension, thyroid, sleep apnea and possible CAD. We will follow him periodically to help with secondary prevention watch for any recurrence paroxysmal atrial fibrillation. He should continue anticoagulation and beta-bryan. He is an intermediate to higher cardiac risk for surgery and may hold Eliquis 48 to 72 hrs preop. Thank you for allowing me the privilege of participating in the care of your patient. Please do nothesitate to contact me if there are any questions. Jeanie Tavares, DO, FACC, FCCP, FACOI BENIGN HYPERTENSION Assessment: controlled on rx Last 14 BP Last 14 Encounter BP Readings: Date: BP: 09/30/2024 130/78 09/19/2024 166/84 09/16/2024 132/64 2024 147/92 08/30/2024 140/64 08/02/2024 136/64 07/13/2024 139/65 05/26/2024 128/76 05/23/2024 128/75 05/06/2024 155/75 05/02/2024 150/80 04/15/2024 132/68 03/21/2024 122/56 03/02/2024 128/60 Hypertensive kidney disease with stage 3a chronic kidney disease (HCC) Assessment: Creatinine Date Value Ref Range Status 08/30/2024 1.32 (H) 0.73 - 1.22 mg/dL Final 05/02/2024 1.27 (H) 0.73 - 1.22 mg/dL Final 04/15/2024 1.28 (H) 0.73 - 1.22 mg/dL Final 01/11/2024 1.42 (H) 0.73 - 1.22 mg/dL Final MIXED HYPERLIPIDEMIA Assessment: c/w statin Paroxysmal A-fib (HCC) Assessment: controlled on rx, daily Eliquis, instructions received to hold 3 days prior to surgery RBBB Assessment: complete RBBB, chronic on EKG, asymptomatic, following cardiology Esophageal reflux Assessment: controlled on rx Serum calcium elevated Assessment: hx Calcium, Total Date Value Ref Range Status 08/30/2024 9.8 8.5 - 10.2 mg/dL Final Chronic ITP (idiopathic thrombocytopenia) (HCC) Assessment: hx, chronic, initial hematology consult 2020, PCP has been monitoring since, surgery cancelled 09/13/2024 due to platelets day of surgery down to 64, had consult with hematology, received optimization, pt to recheck CBC 10/06/2024 Platelet Count Date Value Ref Range Status 09/19/2024 122 (L) 150 - 400 k/uL Final Iron deficiency anemia Assessment: hx, iron studies add to labs Hemoglobin (g/dL) Date Value 09/19/2024 11.9 08/31/2021 14.8 Hematocrit (%) Date Value 09/19/2024 36.6 08/31/2021 46.9 WBC (k/uL) Date Value 09/19/2024 9.61 08/31/2021 5.45 IMPAIRED FASTING GLUCOSE Assessment: diet controlled Hemoglobin A1C (%) Date Value 08/30/2024 5.7 04/16/2021 5.7 Bilateral carotid artery stenosis Assessment: right 20-39%, left 60-79% Carotid US 08/2023, PCP monitoring, TIA (transient ischemic attack) Assessment: hx, likely related unknown pAfib at the time of TIA Lainez Activity Status Index: METS: Walk indoors, such as around the house (1.75 METs) Do light work around the house, such as dusting or washing dishes (2.70 METs) Take care of self; that is eating, dressing, bathing, using the toilet (2.75 METs) DASI Score: 7.2 (With cane, slow antalgic gait) Patient denies any chest pain or undue shortness of breath with the above physical activity. Clinical Frailty Scale: 4. Apparently vulnerable STOP-Bang Score: Patient over 50 years old Male patient Denies snoring loudly Denies feeling tired, fatigued, or sleepy during the daytime Has not been observed to stop breathing or choking/gasping during sleep Denies having high blood pressure BMI less than or equal to 35 kg/m^2 Does not have a large neck STOP-Bang Score: 2 [id number] Score: Age: >=75 Sex: male CHF history: No Hypertension history: Yes Stroke/TIA/thromboembolism history: Yes Vascular disease history: Yes Diabetes history: No [id number] Score: 6 ARISCAT Score: Age: >80 Preoperative SpO2: >=96% Respiratory infection in the last month: No Preoperative anemia: Yes Surgical incision: peripheral Duration of surgery: 2-3 hrs Emergency procedure: No ARISCAT Score: 43 ANESTHESIA FINDINGS: Intubation History: No history of difficult intubation Significant Anesthesia Considerations: none Airway History: No history of difficult airway I - PHYSICAL EVALUATION AIRWAY Patient intubated: No. Tracheostomy tube not present Mallampati: III. TM distance: >3 FB. Neck ROM: full ROM without neurological symptoms. Mouth opening: adequate. Short neck: no. Thick neck: no Morin present: no Lip Bite Test: I Microretrognathia/Micronagthia/Recessed Chin: No DENTAL Dental findings: teeth intact. Dentures, upper: partial. II - ANESTHESIA PLAN Anesthetic Plan: other Anesthetic plan additional comments: *PACC/TCI - anesthesia choice. Beta Bryan Monitoring Plan Post Procedure Analgesic Plan Prepared for Surgery: optimally prepared for surgery, pending [see comment]. Labs to complete 10/06/2024 CONSULTS: Patient does not require consults for optimization at this time Planned Anesthetic: other anesthesia choice The Following Tests/Procedures Have Been Initiated: No orders of the defined types were placed in this encounter. REASON FOR VISIT: Angie Dutton is a 84 year old male who is scheduled for at the request of Dr. Ryan Alonzo for. My final recommendation will be communicated back to the requesting physician by way of shared medical record or letter. Subjective The patient has the following: COVID-19 Immunization Status Covid-19 Vaccine (Series Information) Completed 05/26/2024 Imm Admin: COVID-19 vaccine, age 12+ yr (PFIZER-BIONTECH COMIRNATY) 05/29/2023 Imm Admin: COVID-19 vaccine, age 12+ yr (PFIZER-BIONTECH COMIRNATY) 05/24/2022 Imm Admin: COVID-19 vaccine, age 12+ yr, bivalent (PFIZER-BIONTECH) Only the first 3 history entries have been loaded, but more history exists. CHIEF COMPLAINT: Pre-op exam HPI: Angie Dutton is a 83 year old seen for PAC due to scheduled above surgery because of OA right hip. 07/13/2024 Asif Gonzales PA-C ASSESSMENT & PLAN: Angie is a 83 year old male who presents to the office today for right hip follow up. He has been seeing Dr. Cristiano Ramos in the past for chronic management and hip injections. He reports that he did not care for Dr. Ramos, so he is seeing a new provider. Patient reports 2 years of right hip pain located in the groin and anterior thigh. Has been treated with 3 cortisone injections, one at [place] and 2 at [facility]. Most recent injection appears to be completed on August. He reports that he went into a-fib after the most recent injection and is now on Eliquis. He is a former smoker and quit in 1984. Denies history of blood clots or DM. He is on chronic anticoagulation with Eliquis and plavix Notable history includes CABG x 3 in 1981. CKD stage III 02/29/2024: Patient sees me today for right hip pain. He walks with a cane at baseline. He was previously very active but no longer can golf or do things due to the right hip pain. He is on Plavix and Eliquis for A-fib and CAD. He follows with cardiology here. Denies any fevers or chills no numbness or tingling. He continues to have severe right hip pain in the groin and limited range of motion. 07/13/2024: Patient returns today to discuss right total hip replacement today and getting rescheduled for surgery. We unfortunately had to cancel his surgery in May due to anemia and he was worked up with hematology and oncology. He is still currently on oral medications. Patient is chronically on Plavix and Eliquis. His blood counts were back to safe limits and we can proceed with rescheduling surgery. REVIEW OF SYSTEMS: General: No weight loss, malaise or fevers. Neurological: +insomnia, on rx Positive for: TIA. Respiratory: +former smoker Negative for: asthma, COPD, pneumonia within 6 weeks, tobacco use and URI < 2 weeks. Cardiovascular: +carotid artery stenosis Positive for: anticoagulation therapy (Eliquis, Plavix), atrial fibrillation, CAD, hyperlipidemia and hypertension Patient's last office visit The following tests and/or procedures were performed: cardiac stents. Negative for: abdominal aortic aneurysm, AICD/PPM, angina, arrhythmia, chest pain, CHF, congenital heart defect, DVT/PE, recent SC, murmur/valvular heart disease, PVD, open heart surgery and valve surgery. GI: Positive for: dysphagia and GERD (on rx) Negative for: abdominal pain, hepatitis, irritable bowel syndrome, inflammatory bowel disease, liver disease, nausea, pancreatitis, history of polyps, vomiting and ETOH >2 drinks/day. : Positive for: BPH (on rx) and renal failure. Patient's renal failure is chronic. Negative for: urinary incontinence, nephrolithiasis and urinary tract infection. Endocrine: No history of diabetes. Has not taken steroids within the past 30 days. No history of endocrinological symptoms or problems. Hematology: Positive for: anemia, iron deficiency anemia, bruises/bleeds easily and chronic anti-coagulation/platelet meds. Patient is on anti-coagulation/platelet medication(s): DOAC and Plavix. Negative for: transfusion of at least 4 units within 72 hours prior to surgery. Oncology: No history of CA metastasis, chemo within 30 days, or radiotherapy within 90 days. No history of oncological symptoms or problems. Psych: Positive for: depression. Musculoskeletal: See HPI. Skin: Negative for lesions, rash and itching. Implanted Devices: No implanted devices. 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 PAST SURGICAL HISTORY Procedure Laterality Date ARTHROSCOPY KNEE DIAGNOSTIC W/WO SYNOVIAL BX SPX 2000 both COLONOSCOPY FLX DX W/COLLJ SPEC WHEN PFRMD 2001 Colonoscopy COLONOSCOPY FLX DX W/COLLJ SPEC WHEN PFRMD 07/13/2014 Colonoscopy COLONOSCOPY GEN ANES 11/26/2020 CORONARY ARTERY BYP W/VEIN & ARTERY GRAFT 3 VEIN 1981 CABG, three grafts EGD 11/26/2020 EGD 02/14/2021 EYE SURGERY HX FOOT SURGERY HX Left HEART SURGERY HX NEUROPLASTY &/TRANSPOS MEDIAN NRV CARPAL TUNNE 1998 Carpal tunnel decomp bilateral PAST SURGICAL HISTORY OF surgery on umbilicus due to bleeding PAST SURGICAL HISTORY OF 1961 umbical mass resection SIGMOIDOSCOPY FLX DX W/COLLJ SPEC BR/WA IF PFRMD 08/29/2004 Sigmoidoscopy TONSILLECTOMY HX FAMILY HISTORY Problem Relation Age of Onset Heart Mother Hypertension Mother Heart Father Heart Sister Heart Brother Stroke Sister Colon Cancer No Family History Social History Tobacco Use Smoking status: Former Current packs/day: 0.00 Types: Cigarettes Start date: 08/24/1955 Quit date: 08/24/1984 Years since quittin.1 Smokeless tobacco: Never Tobacco comments: QUIT at age 44, started at 15 Vaping Use Vaping status: Never Used Substance Use Topics Alcohol use: Yes Comment: occ Drug use: Never Prior to Admission medications as of 09/30/24 1015 Medication Sig Last Dose Taking pantoprazole DR (PROTONIX) 20 mg tablet Take 2 tablets by mouth once daily. Taking Yes gabapentin (NEURONTIN) 400 mg capsule Take 1 capsule by mouth two times a day for 180 days. Taking Yes cyclobenzaprine (FLEXERIL) 5 mg tablet Take 1 tablet by mouth two times a day as needed. Taking Yes clopidogrel (PLAVIX) 75 mg tablet Take 75 mg by mouth once daily. Taking Yes docusate sodium (COLACE) 100 mg capsule Take 1 capsule by mouth every morning. Taking Yes apixaban (ELIQUIS) 5 mg tab(s) Take 1 tablet by mouth two times a day. Taking Yes ferrous sulfate 325 mg (65 mg iron) tablet Take 1 tablet by mouth once daily. Taking Yes metoprolol succinate ER (TOPROL XL) 50 mg 24 hr tablet Take 1 tablet by mouth every afternoon. Taking Yes metFORMIN ER (GLUMETZA) 500 mg 24 hr tablet Take 1 tablet by mouth daily with breakfast. Taking Yes ezetimibe (ZETIA) 10 mg tablet Take 1 tablet by mouth once daily. Taking Yes isosorbide mononitrate ER (IMDUR) 30 mg 24 hr tablet Take 0.5 tablets by mouth once daily. Taking Yes simvastatin (ZOCOR) 40 mg tablet Take 1 tablet by mouth daily at bedtime. Taking Yes tamsulosin (FLOMAX) 0.4 mg Take 1 capsule by mouth daily at bedtime. Taking Yes traZODone (DESYREL) 50 mg tablet Take 1 tablet by mouth daily at bedtime. Taking Yes nitroglycerin sublingual (NITROQUICK) 0.4 mg SL tablet Dissolve 1 tablet under the tongue as directed. DISSOLVE ONE(1) TABLET UNDER THE TOUNGUE NEEDED FOR CHEST PAIN,EVERY 5 MIN X3 Taking Yes acetaminophen 650 mg CR tablet Take 1,300 mg by mouth every 8 hours as needed. Taking Yes Medication Comments documented by Alvin Saini PA-C on 01/17/2021 at 1108. Pantoprazole 20mg 2 tabs daily ALLERGIES Allergen Reactions Sulfa (Sulfonamide * Vomiting Objective PHYSICAL EXAM: General: alert and oriented (x3) and healthy appearance. Pertinent negatives noted - not distressed. Antalgic gait with cane. Skin: normal color, no rash or lesions. HEENT: EOM intact, pupils equal round and carotid bruit. Cardiovascular: regular rate and rhythm, normal S1 and S2, no rub, murmurs, or gallop. Respiratory: normal breath sounds, no wheezes or crackles. No chest wall deformity or tenderness. Abdomen: soft. Pertinent negatives noted - not tender. Extremities: no deformity, no edema or tenderness, no joint swelling or clubbing. Neurological: normal cognition and motor skills. Positive for abnormal gait. PAIN ASSESSMENT: VITALS: BP 130/78 Pulse 85 Temp (Src) 97.3 (Temporal) Resp 14 Ht 5' 7.5 (1.72m) Wt 166 lb (75.3kg) SpO2 97% BMI 25.60 kg/(m^2). Diagnostic tests reviewed for today's visit: Lab Value Units Date High Low HB 11.9 g/dL 09/19/2024 17.0 13.0 HCT 36.6 % 09/19/2024 51.0 39.0 WBC 9.61 k/uL 09/19/2024 11.00 3.70 PLT 122 k/uL 09/19/2024 400 150 NA 141 mmol/L 08/30/2024 144 136 K 4.7 mmol/L 08/30/2024 5.1 3.7 GLUC 102 mg/dL 08/30/2024 99 74 BUN 13 mg/dL 08/30/2024 24 9 CREAT 1.32 mg/dL 08/30/2024 1.22 0.73 PTSEC No results within date range. INR No results within date range. APTT No results within date range. ALT 10 U/L 05/02/2024 54 10 AST 20 U/L 05/02/2024 40 14 TBILI 0.5 mg/dL 05/02/2024 1.3 0.2 TSH No results within date range. Lab Value Units Date High Low HCGQT No results within date range. UHCG No results within date range. HCG, BODY* No results within date range. Lab Value Units Date High Low ABORHD No results within date range. ABSCREEN No results within date range. Hemoglobin A1C (%) Date Value 08/30/2024 5.7 04/15/2024 6.1 04/02/2023 5.7 07/24/2022 5.6 02/03/2022 5.8 04/16/2021 5.7 01/30/2020 5.7 08/05/2017 5.3 HBA1C, Dinorah (%) Date Value 02/28/2008 5.8 Recent Results (from the past 8760 hour(s)) ECG COMPLETE Collection Time: 08/30/24 10:05 AM Result Value Ventricular Rate 77 Atrial Rate 77 P-R Interval 206 QRS Duration 122 QT Interval 398 QTC Calculation (Bazett) 450 Calculated P [place] 72 Calculated R [place] -82 Calculated T [place] 11 Impression NORMAL SINUS RHYTHM LEFT AXIS DEVIATION COMPLETE RIGHT BUNDLE BRANCH BLOCK ABNORMAL ECG Confirmed by MD CAMI, QARAB ([id number]) on 09/06/2024 4:47:23 PM No results found for this or any previous visit (from the past 87953 hour(s)). Instructions Given to Patient: Instructions located in the after visit summary. Patient given verbal and written preop instructions and voices comprehension and compliance. SIGNATURE: Anne Alexander APRN.CNP PATIENT NAME: Angie Dutton DATE: September 30, 2024 TIME: 10:35 AM PAGER/CONTACT #: [facility]02-07-2025 History and physical note* Anne Alexander APRN.CNP - 09/30/2024 10:35 AM EST Images from the original note were not included. 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 He is agreeable. He will hold plavix starting 09/29 and eliquis 10/04. Patient verbalized this plan several times. He will also get a CBC on 10/06 prior to surgery. 03/02/2024 Dr. Tavares ASSESSMENT/PLAN: Preoperative cardiovascular exam Patient notes possible need for right hip surgery He will be an intermediate to higher cardiac risk He has no cardiac symptoms and remains in sinus He may hold Eliquis for 2-3 days prior to surgery and restart after safe from a surgical standpoint. Paroxysmal atrial fibrillation - sinus with frequent PACs on today's ekg - found to have AF RVR at admission to [facility] 09/2023 - converted to SR on admission - echo on admission normal EF, grade II DD, moderate LAE. - started on Toprol 50 mg daily and Eliquis 5 mg BID - regular on exam today - Toprol decreased to 25 mg daily last visit as he was concerned with low BP readings (increased to50 mg with RVR in [facility]) - [facility] 10/2023 no AF noted but had pSVT Coronary artery disease involving [place] coronary artery of [place] heart without angina pectoris - s/p CABGx 3 1985, PCI stent - 2007 - plavix 75 mg daily, Toprol 50 daily, simvastatin 40 mg and Imdur 15 mg daily - Continue secondary prevention Essential hypertension, benign - optimal control today >> patient voiced concerns about lower BP since starting Toprol for his AF. - Encouraged dietary sodium restriction/DASH diet - Recommended regular aerobic exercise. - Reviewed risks of HTN and principles of treatment - Goal of BP <130/80 Mixed hyperlipidemia - optimal control with LDL 59, 03/2023 and goal at < 70 - Continue current medication (simvastatin 40 mg, ezetimibe 10 mg) TIA (transient ischemic attack) - ? Related to undiagnosed AF - on Eliquis, Plavix and BB now We had a very long discussion reviewing the pathophysiology, testing and treatment options for Atrial Fibrillation. I discussed the risk of a thromboembolic event from this rhythm in reference to [id number] scoring and the risk of anticoagulation if needed according to the HAS-BLED scoring and oth er contributing risks. We discussed some of the causative factors often leading to AF including, but not limited to, hypertension, thyroid, sleep apnea and possible CAD. We will follow him periodically to help with secondary prevention watch for any recurrence paroxysmal atrial fibrillation. He should continue anticoagulation and beta-bryan. He is an intermediate to higher cardiac risk for surgery and may hold Eliquis 48 to 72 hrs preop. Thank you for allowing me the privilege of participating in the care of your patient. Please do nothesitate to contact me if there are any questions. Jeanie Tavares, DO, FACC, FCCP, FACOI BENIGN HYPERTENSION Assessment: controlled on rx Last 14 BP Last 14 Encounter BP Readings: Date: BP: 09/30/2024 130/78 09/19/2024 166/84 09/16/2024 132/64 2024 147/92 08/30/2024 140/64 08/02/2024 136/64 07/13/2024 139/65 05/26/2024 128/76 05/23/2024 128/75 05/06/2024 155/75 05/02/2024 150/80 04/15/2024 132/68 03/21/2024 122/56 03/02/2024 128/60 Hypertensive kidney disease with stage 3a chronic kidney disease (HCC) Assessment: Creatinine Date Value Ref Range Status 08/30/2024 1.32 (H) 0.73 - 1.22 mg/dL Final 05/02/2024 1.27 (H) 0.73 - 1.22 mg/dL Final 04/15/2024 1.28 (H) 0.73 - 1.22 mg/dL Final 01/11/2024 1.42 (H) 0.73 - 1.22 mg/dL Final MIXED HYPERLIPIDEMIA Assessment: c/w statin Paroxysmal A-fib (HCC) Assessment: controlled on rx, daily Eliquis, instructions received to hold 3 days prior to surgery RBBB Assessment: complete RBBB, chronic on EKG, asymptomatic, following cardiology Esophageal reflux Assessment: controlled on rx Serum calcium elevated Assessment: hx Calcium, Total Date Value Ref Range Status 08/30/2024 9.8 8.5 - 10.2 mg/dL Final Chronic ITP (idiopathic thrombocytopenia) (HCC) Assessment: hx, chronic, initial hematology consult 2020, PCP has been monitoring since, surgery cancelled 09/13/2024 due to platelets day of surgery down to 64, had consult with hematology, received optimization, pt to recheck CBC 10/06/2024 Platelet Count Date Value Ref Range Status 09/19/2024 122 (L) 150 - 400 k/uL Final Iron deficiency anemia Assessment: hx, iron studies add to labs Hemoglobin (g/dL) Date Value 09/19/2024 11.9 08/31/2021 14.8 Hematocrit (%) Date Value 09/19/2024 36.6 08/31/2021 46.9 WBC (k/uL) Date Value 09/19/2024 9.61 08/31/2021 5.45 IMPAIRED FASTING GLUCOSE Assessment: diet controlled Hemoglobin A1C (%) Date Value 08/30/2024 5.7 04/16/2021 5.7 Bilateral carotid artery stenosis Assessment: right 20-39%, left 60-79% Carotid US 08/2023, PCP monitoring, TIA (transient ischemic attack) Assessment: hx, likely related unknown pAfib at the time of TIA Lainez Activity Status Index: METS: Walk indoors, such as around the house (1.75 METs) Do light work around the house, such as dusting or washing dishes (2.70 METs) Take care of self; that is eating, dressing, bathing, using the toilet (2.75 METs) DASI Score: 7.2 (With cane, slow antalgic gait) Patient denies any chest pain or undue shortness of breath with the above physical activity. Clinical Frailty Scale: 4. Apparently vulnerable STOP-Bang Score: Patient over 50 years old Male patient Denies snoring loudly Denies feeling tired, fatigued, or sleepy during the daytime Has not been observed to stop breathing or choking/gasping during sleep Denies having high blood pressure BMI less than or equal to 35 kg/m^2 Does not have a large neck STOP-Bang Score: 2 [id number] Score: Age: >=75 Sex: male CHF history: No Hypertension history: Yes Stroke/TIA/thromboembolism history: Yes Vascular disease history: Yes Diabetes history: No [id number] Score: 6 ARISCAT Score: Age: >80 Preoperative SpO2: >=96% Respiratory infection in the last month: No Preoperative anemia: Yes Surgical incision: peripheral Duration of surgery: 2-3 hrs Emergency procedure: No ARISCAT Score: 43 ANESTHESIA FINDINGS: Intubation History: No history of difficult intubation Significant Anesthesia Considerations: none Airway History: No history of difficult airway I - PHYSICAL EVALUATION AIRWAY Patient intubated: No. Tracheostomy tube not present Mallampati: III. TM distance: >3 FB. Neck ROM: full ROM without neurological symptoms. Mouth opening: adequate. Short neck: no. Thick neck: no Morin present: no Lip Bite Test: I Microretrognathia/Micronagthia/Recessed Chin: No DENTAL Dental findings: teeth intact. Dentures, upper: partial. II - ANESTHESIA PLAN Anesthetic Plan: other Anesthetic plan additional comments: *PACC/TCI - anesthesia choice. Beta Bryan Monitoring Plan Post Procedure Analgesic Plan Prepared for Surgery: optimally prepared for surgery, pending [see comment]. Labs to complete 10/06/2024 CONSULTS: Patient does not require consults for optimization at this time Planned Anesthetic: other anesthesia choice The Following Tests/Procedures Have Been Initiated: No orders of the defined types were placed in this encounter. REASON FOR VISIT: Angie Dutton is a 84 year old male who is scheduled for at the request of Dr. Ryan Alonzo for. My final recommendation will be communicated back to the requesting physician by way of shared medical record or letter. Subjective The patient has the following: COVID-19 Immunization Status Covid-19 Vaccine (Series Information) Completed 05/26/2024 Imm Admin: COVID-19 vaccine, age 12+ yr (PFIZER-BIONTECH COMIRNATY) 05/29/2023 Imm Admin: COVID-19 vaccine, age 12+ yr (PFIZER-BIONTECH COMIRNATY) 05/24/2022 Imm Admin: COVID-19 vaccine, age 12+ yr, bivalent (Eyeonplay-ActionRun) Only the first 3 history entries have been loaded, but more history exists. CHIEF COMPLAINT: Pre-op exam HPI: Angie Dutton is a 83 year old seen for PAC due to scheduled above surgery because of OA right hip. 07/13/2024 Asif Gonzales PA-C ASSESSMENT & PLAN: Angie is a 83 year old male who presents to the office today for right hip follow up. He has been seeing Dr. Cristiano Ramos in the past for chronic management and hip injections. He reports that he did not care for Dr. Ramos, so he is seeing a new provider. Patient reports 2 years of right hip pain located in the groin and anterior thigh. Has been treated with 3 cortisone injections, one at [place] and 2 at [facility]. Most recent injection appears to be completed on August. He reports that he went into a-fib after the most recent injection and is now on Eliquis. He is a former smoker and quit in 1984. Denies history of blood clots or DM. He is on chronic anticoagulation with Eliquis and plavix Notable history includes CABG x 3 in 1981. CKD stage III 02/29/2024: Patient sees me today for right hip pain. He walks with a cane at baseline. He was previously very active but no longer can golf or do things due to the right hip pain. He is on Plavix and Eliquis for A-fib and CAD. He follows with cardiology here. Denies any fevers or chills no numbness or tingling. He continues to have severe right hip pain in the groin and limited range of motion. 07/13/2024: Patient returns today to discuss right total hip replacement today and getting rescheduled for surgery. We unfortunately had to cancel his surgery in May due to anemia and he was worked up with hematology and oncology. He is still currently on oral medications. Patient is chronically on Plavix and Eliquis. His blood counts were back to safe limits and we can proceed with rescheduling surgery. REVIEW OF SYSTEMS: General: No weight loss, malaise or fevers. Neurological: +insomnia, on rx Positive for: TIA. Respiratory: +former smoker Negative for: asthma, COPD, pneumonia within 6 weeks, tobacco use and URI < 2 weeks. Cardiovascular: +carotid artery stenosis Positive for: anticoagulation therapy (Eliquis, Plavix), atrial fibrillation, CAD, hyperlipidemia and hypertension Patient's last office visit The following tests and/or procedures were performed: cardiac stents. Negative for: abdominal aortic aneurysm, AICD/PPM, angina, arrhythmia, chest pain, CHF, congenital heart defect, DVT/PE, recent SC, murmur/valvular heart disease, PVD, open heart surgery and valve surgery. GI: Positive for: dysphagia and GERD (on rx) Negative for: abdominal pain, hepatitis, irritable bowel syndrome, inflammatory bowel disease, liver disease, nausea, pancreatitis, history of polyps, vomiting and ETOH >2 drinks/day. : Positive for: BPH (on rx) and renal failure. Patient's renal failure is chronic. Negative for: urinary incontinence, nephrolithiasis and urinary tract infection. Endocrine: No history of diabetes. Has not taken steroids within the past 30 days. No history of endocrinological symptoms or problems. Hematology: Positive for: anemia, iron deficiency anemia, bruises/bleeds easily and chronic anti-coagulation/platelet meds. Patient is on anti-coagulation/platelet medication(s): DOAC and Plavix. Negative for: transfusion of at least 4 units within 72 hours prior to surgery. Oncology: No history of CA metastasis, chemo within 30 days, or radiotherapy within 90 days. No history of oncological symptoms or problems. Psych: Positive for: depression. Musculoskeletal: See HPI. Skin: Negative for lesions, rash and itching. Implanted Devices: No implanted devices. 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 PAST SURGICAL HISTORY Procedure Laterality Date ARTHROSCOPY KNEE DIAGNOSTIC W/WO SYNOVIAL BX SPX 2000 both COLONOSCOPY FLX DX W/COLLJ SPEC WHEN PFRMD 2001 Colonoscopy COLONOSCOPY FLX DX W/COLLJ SPEC WHEN PFRMD 07/13/2014 Colonoscopy COLONOSCOPY GEN ANES 11/26/2020 CORONARY ARTERY BYP W/VEIN & ARTERY GRAFT 3 VEIN 1981 CABG, three grafts EGD 11/26/2020 EGD 02/14/2021 EYE SURGERY HX FOOT SURGERY HX Left HEART SURGERY HX NEUROPLASTY &/TRANSPOS MEDIAN NRV CARPAL TUNNE 1998 Carpal tunnel decomp bilateral PAST SURGICAL HISTORY OF surgery on umbilicus due to bleeding PAST SURGICAL HISTORY OF 1961 umbical mass resection SIGMOIDOSCOPY FLX DX W/COLLJ SPEC BR/WA IF PFRMD 08/29/2004 Sigmoidoscopy TONSILLECTOMY HX FAMILY HISTORY Problem Relation Age of Onset Heart Mother Hypertension Mother Heart Father Heart Sister Heart Brother Stroke Sister Colon Cancer No Family History Social History Tobacco Use Smoking status: Former Current packs/day: 0.00 Types: Cigarettes Start date: 08/24/1955 Quit date: 08/24/1984 Years since quittin.1 Smokeless tobacco: Never Tobacco comments: QUIT at age 44, started at 15 Vaping Use Vaping status: Never Used Substance Use Topics Alcohol use: Yes Comment: occ Drug use: Never Prior to Admission medications as of 09/30/24 1015 Medication Sig Last Dose Taking pantoprazole DR (PROTONIX) 20 mg tablet Take 2 tablets by mouth once daily. Taking Yes gabapentin (NEURONTIN) 400 mg capsule Take 1 capsule by mouth two times a day for 180 days. Taking Yes cyclobenzaprine (FLEXERIL) 5 mg tablet Take 1 tablet by mouth two times a day as needed. Taking Yes clopidogrel (PLAVIX) 75 mg tablet Take 75 mg by mouth once daily. Taking Yes docusate sodium (COLACE) 100 mg capsule Take 1 capsule by mouth every morning. Taking Yes apixaban (ELIQUIS) 5 mg tab(s) Take 1 tablet by mouth two times a day. Taking Yes ferrous sulfate 325 mg (65 mg iron) tablet Take 1 tablet by mouth once daily. Taking Yes metoprolol succinate ER (TOPROL XL) 50 mg 24 hr tablet Take 1 tablet by mouth every afternoon. Taking Yes metFORMIN ER (GLUMETZA) 500 mg 24 hr tablet Take 1 tablet by mouth daily with breakfast. Taking Yes ezetimibe (ZETIA) 10 mg tablet Take 1 tablet by mouth once daily. Taking Yes isosorbide mononitrate ER (IMDUR) 30 mg 24 hr tablet Take 0.5 tablets by mouth once daily. Taking Yes simvastatin (ZOCOR) 40 mg tablet Take 1 tablet by mouth daily at bedtime. Taking Yes tamsulosin (FLOMAX) 0.4 mg Take 1 capsule by mouth daily at bedtime. Taking Yes traZODone (DESYREL) 50 mg tablet Take 1 tablet by mouth daily at bedtime. Taking Yes nitroglycerin sublingual (NITROQUICK) 0.4 mg SL tablet Dissolve 1 tablet under the tongue as directed. DISSOLVE ONE(1) TABLET UNDER THE TOUNGUE NEEDED FOR CHEST PAIN,EVERY 5 MIN X3 Taking Yes acetaminophen 650 mg CR tablet Take 1,300 mg by mouth every 8 hours as needed. Taking Yes Medication Comments documented by Alvin Saini PA-C on 01/17/2021 at 1108. Pantoprazole 20mg 2 tabs daily ALLERGIES Allergen Reactions Sulfa (Sulfonamide * Vomiting Objective PHYSICAL EXAM: General: alert and oriented (x3) and healthy appearance. Pertinent negatives noted - not distressed. Antalgic gait with cane. Skin: normal color, no rash or lesions. HEENT: EOM intact, pupils equal round and carotid bruit. Cardiovascular: regular rate and rhythm, normal S1 and S2, no rub, murmurs, or gallop. Respiratory: normal breath sounds, no wheezes or crackles. No chest wall deformity or tenderness. Abdomen: soft. Pertinent negatives noted - not tender. Extremities: no deformity, no edema or tenderness, no joint swelling or clubbing. Neurological: normal cognition and motor skills. Positive for abnormal gait. PAIN ASSESSMENT: VITALS: BP 130/78 Pulse 85 Temp (Src) 97.3 (Temporal) Resp 14 Ht 5' 7.5 (1.72m) Wt 166 lb (75.3kg) SpO2 97% BMI 25.60 kg/(m^2). Diagnostic tests reviewed for today's visit: Lab Value Units Date High Low HB 11.9 g/dL 09/19/2024 17.0 13.0 HCT 36.6 % 09/19/2024 51.0 39.0 WBC 9.61 k/uL 09/19/2024 11.00 3.70 PLT 122 k/uL 09/19/2024 400 150 NA 141 mmol/L 08/30/2024 144 136 K 4.7 mmol/L 08/30/2024 5.1 3.7 GLUC 102 mg/dL 08/30/2024 99 74 BUN 13 mg/dL 08/30/2024 24 9 CREAT 1.32 mg/dL 08/30/2024 1.22 0.73 PTSEC No results within date range. INR No results within date range. APTT No results within date range. ALT 10 U/L 05/02/2024 54 10 AST 20 U/L 05/02/2024 40 14 TBILI 0.5 mg/dL 05/02/2024 1.3 0.2 TSH No results within date range. Lab Value Units Date High Low HCGQT No results within date range. UHCG No results within date range. HCG, BODY* No results within date range. Lab Value Units Date High Low ABORHD No results within date range. ABSCREEN No results within date range. Hemoglobin A1C (%) Date Value 08/30/2024 5.7 04/15/2024 6.1 04/02/2023 5.7 07/24/2022 5.6 02/03/2022 5.8 04/16/2021 5.7 01/30/2020 5.7 08/05/2017 5.3 HBA1C, [place] (%) Date Value 02/28/2008 5.8 Recent Results (from the past 8760 hour(s)) ECG COMPLETE Collection Time: 08/30/24 10:05 AM Result Value Ventricular Rate 77 Atrial Rate 77 P-R Interval 206 QRS Duration 122 QT Interval 398 QTC Calculation (Bazett) 450 Calculated P [place] 72 Calculated R [place] -82 Calculated T [place] 11 Impression NORMAL SINUS RHYTHM LEFT AXIS DEVIATION COMPLETE RIGHT BUNDLE BRANCH BLOCK ABNORMAL ECG Confirmed by MD CAMI, QARAB ([id number]) on 09/06/2024 4:47:23 PM No results found for this or any previous visit (from the past 77158 hour(s)). Instructions Given to Patient: Instructions located in the after visit summary. Patient given verbal and written preop instructions and voices comprehension and compliance. SIGNATURE: Anne Alexander APRN.CNP PATIENT NAME: Angie Dutton DATE: September 30, 2024 TIME: 10:35 AM PAGER/CONTACT #: documented in this encounterThe [facility] Instructions* Patient Instructions* Anne Alexander APRN.ASSISTANT PORTFOLIO MANAGER - 09/30/2024 10:31 AM EST Images from the original note were not included. [facility] PATIENT PREOPERATIVE INSTRUCTIONS Ryan Alonzo* has scheduled you for your procedure at this surgery center: [facility]: [phone] -- [address] [address]. Please read below carefully for your personalized instructions. Dietary Restrictions: - No solid food after midnight. - You may have 12 ounces of clear liquids (water, clear juices such as apple juice or gatorade, carbonated beverages, clear tea, black coffee, jello) until 2 hours before scheduled arrival at facility. Medications: Unless instructed differently below, stay on all of your medications until your surgery. If you start any new medications after today's visit, please contact your surgeon. Pre-Surgery Med Instructions Medication Instructions pantoprazole DR (PROTONIX) 20 mg tablet Take the day of surgery with a small sip of water gabapentin (NEURONTIN) 400 mg capsule Take the day of surgery with a small sip of water cyclobenzaprine (FLEXERIL) 5 mg tablet IF needed clopidogrel (PLAVIX) 75 mg tablet As directed below docusate sodium (COLACE) 100 mg capsule Do not take the day of surgery apixaban (ELIQUIS) 5 mg tab(s) As directed below ferrous sulfate 325 mg (65 mg iron) tablet Take the day of surgery with a small sip of water metoprolol succinate ER (TOPROL XL) 50 mg 24 hr tablet Take the day of surgery with a small sip of water metFORMIN ER (GLUMETZA) 500 mg 24 hr tablet Do not take the day of surgery ezetimibe (ZETIA) 10 mg tablet Take the day of surgery with a small sip of water isosorbide mononitrate ER (IMDUR) 30 mg 24 hr tablet Take the day of surgery with a small sip of water simvastatin (ZOCOR) 40 mg tablet Take the day of surgery with a small sip of water tamsulosin (FLOMAX) 0.4 mg Take the day of surgery with a small sip of water traZODone (DESYREL) 50 mg tablet Do not take the day of surgery nitroglycerin sublingual (NITROQUICK) 0.4 mg SL tablet IF needed acetaminophen 650 mg CR tablet IF needed Per Dr Alonzo, colette pt surgery date of 10/07/24. He is agreeable. He will hold plavix starting 09/29 and eliquis 10/04. Patient verbalized this plan several times. He will also get a CBC on 10/06 prior to surgery. If you take any medications for erectile dysfunction-Cialis (Tadalafil), Levitra, Staxyn (Vardenafil) Viagra (Sildenenafil please do not take these for 48 hours before surgery. If you start any new medications after today's visit, please contact the surgeon's office. If you are currently using a [id number] injectable or oral medication for diabetes or weight loss such as Dulaglutide (Trulicity), Exenatide (Byetta, Bydureon), Liraglutide (Victoza, Saxenda), Semaglutide (Ozempic, Wegovy, Rybelsus), or Tirzepatide (Mounjaro), the medicine should be stopped at least 7 days before surgery. These medicines can cause food to remain in your stomach for a very longtime and increase the risks from surgery and anesthesia. Not stopping the medication for a long enough time may result in your surgery being rescheduled. Blood Thinning Medications: - Stop NSAIDS (Ibuprofen, Advil, Aleve, Motrin, Celebrex, Mobic, etc.) 7 days before surgery, as directed by your surgeon. - Stop Aspirin 7 days before surgery, as directed by your surgeon. - Stop ALL herbal and dietary supplements 7 days before surgery. - You may take Tylenol (Acetaminophen) or any of your pain medications that do not contain aspirin or NSAIDS as needed. Important Reminders: - Candy, mints, and tobacco products are NOT permitted the morning of surgery. - Hearing aids, dentures and glasses may be worn the morning of surgery. - NO jewelry, body piercings, makeup, hairpins or contacts are to be worn the day of surgery. If you develop symptoms such as a fever, cold, or flu, or have other changes to your health within TWO DAYS of scheduled surgery or the morning of surgery, please contact the surgery center above. Personal Belongings: -Please have photo ID and insurance cards. -If you do not have a copy of advance directives on file with us, please bring a copy with you on the day of surgery. - Leave ALL valuables and money at home or with family members. - Please bring high-quality footwear, such as sneakers, to the hospital for ambulating post-surgery. For Outpatient Procedures: - YOU MUST HAVE A RESPONSIBLE CUSTOM FEED MILL OPERATOR HELPER TAKE YOU HOME. A SANITATION WORKER HOSING MACHINERY OR BANQUET BARTENDER CANNOT BE MADE A RESPONSIBLE CUSTOM FEED MILL OPERATOR HELPER. - We recommend that a responsible person stays with you overnight to take care of you. - You cannot stay in a hotel alone after outpatient surgery. You will not be permitted to have yoursurgery, if you do not have someone to take care of you. Arrival Time for Surgery: - The Surgery Center or hospital where you are having surgery will call the afternoon before surgery (or Thursday for Thursday surgery) with a scheduled arrival time. - If you have not heard by 4 pm, please contact the surgery center above. Please be aware that emergency situations arise, which may delay or change your surgical time. If this happens, we will notify you as soon as possible and regret any inconvenience. If you already have an Advance Directive, please fax a copy to [phone] or email to for it to be added to your chart. If you do not have an Advance Directive, you can find the appropriate form and more information at [email or web address]. We recommend that youcomplete the Advance Directive form found on the website and bring it with you the day of your surgery. It can be witnessed and scanned into your chart that day. Anne Alexander APRN.CATIA documented in this encounterThe [facility]01-31-[facility] Telephone encounter Note * Telephone Encounter - Suly Valentine RN - 09/23/2024 9:30 AM EST Triage Protocol Advised: Home Care. CALL BACK IF: * Fever lasts over 3 days * Nasal discharge lastsover 10 days * Earache or facial pain develops * You become worse. Patient agreeable. Patient reports 1 week ago he began with symptoms including productive cough, runny nose, fever, chills, diarrhea and wheezing at night. Reports he is improving. Reports he is 90% better now. Denies SOB, chest pain, dizziness or severe sx's. Cough has improved. Taking ES Tylenol and OTC cough syrups. No recent travel out of state or country. Of note pt does see hematology and is on Eliquis. No pulmonary history. Reports drinking good and urinating well. No distress noted during call. Reports current BP 111/58, pulse 108-states I think I'm just excited. I have white coat syndrome. During call patient stated he did not want to be evaluated today. States he was calling to share his sx's and get advise. *The below assessment is incomplete. See above. Reason for Disposition Cough with cold symptoms (e.g., runny nose, postnasal drip, throat clearing) Answer Assessment - Initial Assessment Questions 1. ONSET: about 1 week ago 2. SEVERITY:Cough is not bad today, during call, pt did not cough 3. SPUTUM: yellow 4. HEMOPTYSIS:denies 5. DIFFICULTY BREATHING: denies 6. FEVER: denies 7. CARDIAC HISTORY: yes, see history 8. LUNG HISTORY:see history 9. PE RISK FACTORS: 10. OTHER SYMPTOMS: 11. : Is there any chance you are ? When was your last menstrual period? *No Answer* 12. TRAVEL: Have you traveled out of the country in the last month? (e.g., travel history, exposures) *No Answer* Protocols used: Cough - Acute [id number] [facility]01-31-[facility]25 Miscellaneous Notes* Telephone Encounter - Suly Valentine RN - 09/23/2024 9:30 AM EST Triage Protocol Advised: Home Care. CALL BACK IF: * Fever lasts over 3 days * Nasal discharge lastsover 10 days * Earache or facial pain develops * You become worse. Patient agreeable. Patient reports 1 week ago he began with symptoms including productive cough, runny nose, fever, chills, diarrhea and wheezing at night. Reports he is improving. Reports he is 90% better now. Denies SOB, chest pain, dizziness or severe sx's. Cough has improved. Taking ES Tylenol and OTC cough syrups. No recent travel out of state or country. Of note pt does see hematology and is on Eliquis. No pulmonary history. Reports drinking good and urinating well. No distress noted during call. Reports current BP 111/58, pulse 108-states I think I'm just excited. I have white coat syndrome. During call patient stated he did not want to be evaluated today. States he was calling to share his sx's and get advise. *The below assessment is incomplete. See above. Reason for Disposition Cough with cold symptoms (e.g., runny nose, postnasal drip, throat clearing) Answer Assessment - Initial Assessment Questions 1. ONSET: about 1 week ago 2. SEVERITY:Cough is not bad today, during call, pt did not cough 3. SPUTUM: yellow 4. HEMOPTYSIS:denies 5. DIFFICULTY BREATHING: denies 6. FEVER: denies 7. CARDIAC HISTORY: yes, see history 8. LUNG HISTORY:see history 9. PE RISK FACTORS: 10. OTHER SYMPTOMS: 11. : Is there any chance you are ? When was your last menstrual period? *No Answer* 12. TRAVEL: Have you traveled out of the country in the last month? (e.g., travel history, exposures) *No Answer* Protocols used: Cough - Acute [id number] documented in [facility]The [facility] Telephone encounter Note * Telephone Encounter - Almas Melgar RN - 09/21/2024 1:[address] Alonzo, offer pt surgery date of 10/07/24. He is agreeable. He will hold plavix starting 09/29 and eliquis 10/04. Patient verbalized this plan several times. He will also get a CBC on 10/06 prior to surgery. [facility] Miscellaneous Notes* Telephone Encounter - Almas Melgar RN - 09/21/2024 1:[address] Alonzo, colette pt surgery date of 10/07/24. He is agreeable. He will hold plavix starting 09/29 and eliquis 10/04. Patient verbalized this plan several times. He will also get a CBC on 10/06 prior to surgery. documented in this encounterThe [facility]01[facility] History of Present illness Narrative* Kayla Machado MD - 09/19/2024 11:58 AM EST (Elements copied from my note dated 2024, have been reviewed and updated where appropriate, and all reflect current assessment and medical decision making from today's encounter, September 19, 2024) HISTORY OF PRESENT ILLNESS: Angie Dutton is a 83 year old male late March 2024, his dog bit his right forearm, was squirted out per pt, blood was everywhere. Went to [facility]. Notes and labs reviewed. Hgb was down to 8.7 in late March (about 1 week after this happened). Iron was low, placed on oral iron April 19, 2024. Labs look like iron is absorbing. US liver in 2018 showed coarse echotexture CrCl 38 Wants hip replacement won;t do now because of thrombocytopenia. Did a trial of steroids, platelets today 122K. 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 US likely showing fatty liver. Worsened anemia due to recent blood loss, iron deficiency. 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 Will notify Dr Alonzo of platelet count, see if he wants to reschedule hip replacement Written and verbal health teaching given to patient, patient verbalizes understanding and agrees with treatment plan. 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 PAST SURGICAL HISTORY Procedure Laterality Date ARTHROSCOPY KNEE DIAGNOSTIC W/WO SYNOVIAL BX SPX 2001 both COLONOSCOPY FLX DX W/COLLJ SPEC WHEN PFRMD 2001 Colonoscopy COLONOSCOPY FLX DX W/COLLJ SPEC WHEN PFRMD 07/13/2014 Colonoscopy COLONOSCOPY GEN ANES 11/26/2020 CORONARY ARTERY BYP W/VEIN & ARTERY GRAFT 3 VEIN 1981 CABG, three grafts EGD 11/26/2020 EGD 02/14/2021 EYE SURGERY HX FOOT SURGERY HX Left HEART SURGERY HX NEUROPLASTY &/TRANSPOS MEDIAN NRV CARPAL TUNNE 1998 Carpal tunnel decomp bilateral PAST SURGICAL HISTORY OF surgery on umbilicus due to bleeding PAST SURGICAL HISTORY OF 1961 umbical mass resection SIGMOIDOSCOPY FLX DX W/COLLJ SPEC BR/WA IF PFRMD 08/29/2004 Sigmoidoscopy TONSILLECTOMY HX FAMILY HISTORY Problem Relation Age of Onset Heart Mother Hypertension Mother Heart Father Heart Sister Heart Brother Stroke Sister Colon Cancer No Family History Social History Tobacco Use Smoking status: Former Current packs/day: 0.00 Types: Cigarettes Start date: 08/24/1955 Quit date: 08/24/1984 Years since quittin.0 Smokeless tobacco: Never Tobacco comments: QUIT at age 44, started at 15 Vaping Use Vaping status: Never Used Substance Use Topics Alcohol use: Yes Comment: occ Drug use: Never ALLERGIES: ALLERGIES Allergen Reactions Sulfa (Sulfonamide * Vomiting CURRENT OUTPATIENT MEDICATIONS: pantoprazole DR (PROTONIX) 20 mg tablet Take 2 tablets by mouth once daily. gabapentin (NEURONTIN) 400 mg capsule Take 1 capsule by mouth two times a day for 180 days. cyclobenzaprine (FLEXERIL) 5 mg tablet Take 1 tablet by mouth two times a day as needed. clopidogrel (PLAVIX) 75 mg tablet Take 75 mg by mouth once daily. docusate sodium (COLACE) 100 mg capsule Take 1 capsule by mouth every morning. apixaban (ELIQUIS) 5 mg tab(s) Take 1 tablet by mouth two times a day. ferrous sulfate 325 mg (65 mg iron) tablet Take 1 tablet by mouth once daily. metoprolol succinate ER (TOPROL XL) 50 mg 24 hr tablet Take 1 tablet by mouth every afternoon. metFORMIN ER (GLUMETZA) 500 mg 24 hr tablet Take 1 tablet by mouth daily with breakfast. ezetimibe (ZETIA) 10 mg tablet Take 1 tablet by mouth once daily. isosorbide mononitrate ER (IMDUR) 30 mg 24 hr tablet Take 0.5 tablets by mouth once daily. simvastatin (ZOCOR) 40 mg tablet Take 1 tablet by mouth daily at bedtime. tamsulosin (FLOMAX) 0.4 mg Take 1 capsule by mouth daily at bedtime. traZODone (DESYREL) 50 mg tablet Take 1 tablet by mouth daily at bedtime. nitroglycerin sublingual (NITROQUICK) 0.4 mg SL tablet Dissolve 1 tablet under the tongue as directed. DISSOLVE ONE(1) TABLET UNDER THE TOUNGUE NEEDED FOR CHEST PAIN,EVERY 5 MIN X3 acetaminophen 650 mg CR tablet Take 1,300 mg by mouth every 8 hours as needed. REVIEW OF SYSTEMS: GENERAL: No fever, night sweats, weight loss or malaise. All other reviewed and negative other than HPI. PHYSICAL EXAMINATION: VITAL SIGNS: BP 166/84 Pulse 77 Temp (Src) 97.6 (Temporal) Wt 180 lb (81.6kg) SpO2 100% GENERAL APPEARANCE: Well appearing, in no acute distress, alert and oriented x3, well-hydrated, well nourished. I spent a total of 20 minutes on the date of the service which included preparing to see the patient, [id number] patient care, completing clinical documentation, obtaining and/or reviewing separately obtained history, counseling and educating the patient/family/caregiver, ordering medications, yusef ts, or procedures, independently interpreting results (not separately reported), and communicating results to the patient/family/caregiver. Also in discussion with orthopedics team. Electronically Signed: Kayla Machado MD September 19, 2024 documented in this encounterThe [facility]01-24-[facility]25 Instructions* Patient Instructions* Valery Quinteros APRN.[employer]SIST[employer] MANAGER - 09/16/2024 11:30 AM EST 1) Follow up with hematology 2) Change follow up in October to 4 months documented in this encounterThe [facility]01-24-2025 NoteAd[facility]01-[facility] History of Present illness Narrative* Valery Quinteros APRN.CNP - 09/16/2024 11:02 AM EST This is a 84 year old male who presents today with: Patient presents with: Dizziness HISTORY OF PRESENT ILLNESS: Angie Dutton is a 84 year old male. Patient presents with: Dizziness Was all ready to have hip replacement- on the table. Surgery cancelled last minute and they told him platelets dropped. They told him that he would have bled to . Went home and was very rattled.Got dizzy., Thinks it was all related to surgery and near experience Treating platelets with steroids. To follow back up with dock attendant. Has had a hectic day. 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 PAST SURGICAL HISTORY Procedure Laterality Date ARTHROSCOPY KNEE DIAGNOSTIC W/WO SYNOVIAL BX SPX 2000 both COLONOSCOPY FLX DX W/COLLJ SPEC WHEN PFRMD 2001 Colonoscopy COLONOSCOPY FLX DX W/COLLJ SPEC WHEN PFRMD 07/13/2014 Colonoscopy COLONOSCOPY GEN ANES 11/26/2020 CORONARY ARTERY BYP W/VEIN & ARTERY GRAFT 3 VEIN 1981 CABG, three grafts EGD 11/26/2020 EGD 02/14/2021 EYE SURGERY HX FOOT SURGERY HX Left HEART SURGERY HX NEUROPLASTY &/TRANSPOS MEDIAN NRV CARPAL TUNNE 1998 Carpal tunnel decomp bilateral PAST SURGICAL HISTORY OF surgery on umbilicus due to bleeding PAST SURGICAL HISTORY OF 1961 umbical mass resection SIGMOIDOSCOPY FLX DX W/COLLJ SPEC BR/WA IF PFRMD 08/29/2004 Sigmoidoscopy TONSILLECTOMY HX ALLERGIES Sulfa (Sulfonamide Antibiotics) MEDICATIONS Current Outpatient Medications Medication Sig cyclobenzaprine (FLEXERIL) 5 mg tablet Take 1 tablet by mouth two times a day as needed. clopidogrel (PLAVIX) 75 mg tablet Take 75 mg by mouth once daily. docusate sodium (COLACE) 100 mg capsule Take 1 capsule by mouth every morning. ferrous sulfate 325 mg (65 mg iron) tablet Take 1 tablet by mouth once daily. gabapentin (NEURONTIN) 400 mg capsule Take 1 capsule by mouth two times a day for 180 days. metoprolol succinate ER (TOPROL XL) 50 mg 24 hr tablet Take 1 tablet by mouth every afternoon. metFORMIN ER (GLUMETZA) 500 mg 24 hr tablet Take 1 tablet by mouth daily with breakfast. ezetimibe (ZETIA) 10 mg tablet Take 1 tablet by mouth once daily. isosorbide mononitrate ER (IMDUR) 30 mg 24 hr tablet Take 0.5 tablets by mouth once daily. simvastatin (ZOCOR) 40 mg tablet Take 1 tablet by mouth daily at bedtime. tamsulosin (FLOMAX) 0.4 mg Take 1 capsule by mouth daily at bedtime. traZODone (DESYREL) 50 mg tablet Take 1 tablet by mouth daily at bedtime. dexAMETHasone (DECADRON) 4 mg tablet Take 5 tablets by mouth daily with breakfast for 4 days. apixaban (ELIQUIS) 5 mg tab(s) Take 1 tablet by mouth two times a day. pantoprazole DR (PROTONIX) 20 mg tablet Take 2 tablets by mouth once daily. nitroglycerin sublingual (NITROQUICK) 0.4 mg SL tablet Dissolve 1 tablet under the tongue as directed. DISSOLVE ONE(1) TABLET UNDER THE TOUNGUE NEEDED FOR CHEST PAIN,EVERY 5 MIN X3 acetaminophen 650 mg CR tablet Take 1,300 mg by mouth every 8 hours as needed. No current facility-administered medications for this visit. FAMILY HISTORY Problem Relation Age of Onset Heart Mother Hypertension Mother Heart Father Heart Sister Heart Brother Stroke Sister Colon Cancer No Family History Social History Tobacco Use Smoking status: Former Current packs/day: 0.00 Types: Cigarettes Start date: 08/24/1955 Quit date: 08/24/1984 Years since quittin.0 Smokeless tobacco: Never Tobacco comments: QUIT at age 44, started at 15 Vaping Use Vaping status: Never Used Substance Use Topics Alcohol use: Yes Comment: [facility] Drug use: Never REVIEW OF SYSTEMS GENERAL: No weight loss- + gain , malaise or fevers/chills HEENT: Negative for frequent or significant headaches, Poor hearing, some vision changes. NECK: Negative for lumps, goiter, pain and significant neck swelling- always trouble swallowing- has had testing RESPIRATORY: Negative for cough, hemoptysis, wheezing, one day dyspnea or shortness of breath aftersurgery was cancelled CARDIOVASCULAR: Negative for chest pain, + leg swelling, + palpitations after surgery cancelled GI: No nausea, vomiting, some intermittent diarrhea/constipation. No hematochezia/melena. No heartburn or reflux symptoms. : No history of dysuria, frequency or incontinence MUSCULOSKELETAL: Terrible hip pain, walks w/ a cane. SKIN: Negative for lesions, no rash, all over itching ENDOCRINE: Negative for cold or heat intolerance, polyuria, polydipsia and goiter NEURO: No history of headaches, syncope, paralysis, seizures or tremors MOOD: Some depression and anxiety- worse when surgery was cancelled, no suicidal ideation. EXAM: BP 132/64 Pulse 73 Temp 36.3 C (97.3 F) Wt 81.2 kg (179 lb) SpO2 97% BMI 28.89 kg/m PHYSICAL EXAM: Physical Exam Vitals reviewed. Constitutional: Appearance: Normal appearance. HENT: Head: Normocephalic. Right Ear: External ear normal. There is no impacted cerumen. Left Ear: External ear normal. There is no impacted cerumen. Ears: Comments: Canals slightly red, both TM slightly bulging Nose: Congestion present. No rhinorrhea. Comments: PND- white Mouth/Throat: Pharynx: Oropharyngeal exudate present. No posterior oropharyngeal erythema. Cardiovascular: Rate and Rhythm: Normal rate and regular rhythm. Pulses: Normal pulses. Heart sounds: Murmur heard. Comments: Soft HERNÁN @ sternal border Pulmonary: Effort: Pulmonary effort is normal. Breath sounds: Normal breath sounds. Abdominal: General: Bowel sounds are normal. Palpations: Abdomen is soft. Tenderness: There is no abdominal tenderness. There is no guarding or rebound. Comments: LEFT UQ gets sharp pain in ribs when he bends forward to tie shoes Musculoskeletal: Right lower leg: Edema present. Left lower leg: Edema present. Comments: Trace lower ext. edema Skin: General: Skin is warm and dry. Neurological: Mental Status: He is alert and oriented to person, place, and time. Comments: Cranial nerves III- XII intact, no finger- to- nose ataxia Psychiatric: Mood and Affect: Mood normal. Behavior: Behavior normal. LABS: ASSESSMENT/PLAN: 1. Iron deficiency anemia, unspecified iron deficiency anemia type - ICD9: 280.9, ICD10: D50.9 Stable - PANTOPRAZOLE 20 MG TABLET,DELAYED RELEASE 2. Dyspepsia - ICD9: 536.8, ICD10: R10.13 - Stable on PPI - PANTOPRAZOLE 20 MG TABLET,DELAYED RELEASE 3. Dysphagia, unspecified type - ICD9: 787.20, ICD10: R13.10 Chronic- evaluated without findings - PANTOPRAZOLE 20 MG TABLET,DELAYED RELEASE 4. Primary osteoarthritis of right hip - ICD9: 715.15, ICD10: M16.11 Trying to get platelets up - GABAPENTIN 400 MG CAPSULE - Surgery on hold again 5. Spinal stenosis, lumbar region, without neurogenic claudication - ICD9: 724.02, ICD10: M48.061 Ongoing - GABAPENTIN 400 MG CAPSULE 6. Chronic right hip pain - ICD9: 719.45, 338.29, ICD10: M25.551, G89.29 Using cane to ambulate - CYCLOBENZAPRINE 5 MG TABLET 7. Thrombocytopenia (HCC) - ICD9: 287.5, ICD10: D69.6 Seeing hematology - treating with dexamethasone 8. Atherosclerosis of [place] coronary artery of [place] heart without angina pectoris - ICD9: 414.01, ICD10: I25.10 (primary diagnosis) Stable 9. Dizziness - ICD9: 780.4, ICD10: R42 Only day surgery was cancelled- no further episodes. - Neuro heck was normal today Discussed treatment plan and patient voices understanding. Patient's questions answered appropriately. Medications and potential side effects were discussed and patient voices understanding. Return to the office as scheduled or as needed for worsening/no improvement. Valery Quinteros APRN.CATIA documented in this encounterThe [facility]01-[facility] Telephone encounter Note * Telephone Encounter - Marga Clark RN - 2024 6:15 PM EST Pt seen today by Dr. Machado. [facility]01-[facility] Miscellaneous Notes* Telephone Encounter - Marga Clark RN - 2024 6:15 PM EST Pt seen today by Dr. Machado. * Telephone Encounter - Chinyere Bedoya - 09/13/2024 4:25 PM EST Talked to pt and scheduled him to see Dr Tripp tomorrow, Chinyere Bedoya * Telephone Encounter - Kayla Machado MD - 09/13/2024 3:26 PM EST Ok i sean see pt this week if he can make it. Dr Xie * Telephone Encounter - Cleo Padilla LPN - 09/13/2024 12:35 PM EST Next available apt? Cleo Padilla LPN * Telephone Encounter - Marga Clark RN - 09/13/2024 11:31 AM EST Pt calling in as he states he was at [facility] this morning to get his hip replaced but his surgery was cancelled as his platelets have dropped too low. Pt states he was in the bed with his IV in and ready for surgery when the surgeon came and cancelled him. Surgeon stated his platelets dropped from 88 to 64. Surgeon told him that he needed to see a dock attendant. Pt saw Dr. Machado on 05/06/24. documented in this encounterThe [facility]01-22-2025 NoteAd[facility]01-22-2025 History of Present illness Narrative* Kayla Machado MD - 2024 1:37 PM EST (Elements copied from my note dated May 06, 2024, have been reviewed and updated where appropriate, and all reflect current assessment and medical decision making from today's encounter, 2024) HISTORY OF PRESENT ILLNESS: Angie Dutton is a 83 year old male late March 2024, his dog bit his right forearm, was squirted out per pt, blood was everywhere. Went to [facility]. Notes and labs reviewed. Hgb was down to 8.7 in late March (about 1 week after this happened). Iron was low, placed on oral iron April 19, 2024. Labs look like iron is absorbing. US liver in 2018 showed coarse echotexture CrCl 38 Wants hip replacement won;t do now because of thrombocytopenia. 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 US likely showing fatty liver. Worsened anemia due to recent blood loss, iron deficiency. 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 Trial oral dex 2. See back with cbc 5 days Written and verbal health teaching given to patient, patient verbalizes understanding and agrees with treatment plan. 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 PAST SURGICAL HISTORY Procedure Laterality Date ARTHROSCOPY KNEE DIAGNOSTIC W/WO SYNOVIAL BX SPX 2000 both COLONOSCOPY FLX DX W/COLLJ SPEC WHEN PFRMD 2001 Colonoscopy COLONOSCOPY FLX DX W/COLLJ SPEC WHEN PFRMD 07/13/2014 Colonoscopy COLONOSCOPY GEN ANES 11/26/2020 CORONARY ARTERY BYP W/VEIN & ARTERY GRAFT 3 VEIN 1981 CABG, three grafts EGD 11/26/2020 EGD 02/14/2021 EYE SURGERY HX FOOT SURGERY HX Left HEART SURGERY HX NEUROPLASTY &/TRANSPOS MEDIAN NRV CARPAL TUNNE 1998 Carpal tunnel decomp bilateral PAST SURGICAL HISTORY OF surgery on umbilicus due to bleeding PAST SURGICAL HISTORY OF 1961 umbical mass resection SIGMOIDOSCOPY FLX DX W/COLLJ SPEC BR/WA IF PFRMD 08/29/2004 Sigmoidoscopy TONSILLECTOMY HX FAMILY HISTORY Problem Relation Age of Onset Heart Mother Hypertension Mother Heart Father Heart Sister Heart Brother Stroke Sister Colon Cancer No Family History Social History Tobacco Use Smoking status: Former Current packs/day: 0.00 Types: Cigarettes Start date: 08/24/1955 Quit date: 08/24/1984 Years since quittin.0 Smokeless tobacco: Never Tobacco comments: QUIT at age 44, started at 15 Vaping Use Vaping status: Never Used Substance Use Topics Alcohol use: Yes Comment: occ Drug use: Never ALLERGIES: ALLERGIES Allergen Reactions Sulfa (Sulfonamide * Vomiting CURRENT OUTPATIENT MEDICATIONS: cyclobenzaprine (FLEXERIL) 5 mg tablet Take 1 tablet by mouth two times a day as needed. clopidogrel (PLAVIX) 75 mg tablet Take 75 mg by mouth once daily. docusate sodium (COLACE) 100 mg capsule Take 1 capsule by mouth every morning. apixaban (ELIQUIS) 5 mg tab(s) Take 1 tablet by mouth two times a day. ferrous sulfate 325 mg (65 mg iron) tablet Take 1 tablet by mouth once daily. pantoprazole DR (PROTONIX) 20 mg tablet Take 2 tablets by mouth once daily. gabapentin (NEURONTIN) 400 mg capsule Take 1 capsule by mouth two times a day for 180 days. metoprolol succinate ER (TOPROL XL) 50 mg 24 hr tablet Take 1 tablet by mouth every afternoon. metFORMIN ER (GLUMETZA) 500 mg 24 hr tablet Take 1 tablet by mouth daily with breakfast. ezetimibe (ZETIA) 10 mg tablet Take 1 tablet by mouth once daily. isosorbide mononitrate ER (IMDUR) 30 mg 24 hr tablet Take 0.5 tablets by mouth once daily. simvastatin (ZOCOR) 40 mg tablet Take 1 tablet by mouth daily at bedtime. tamsulosin (FLOMAX) 0.4 mg Take 1 capsule by mouth daily at bedtime. traZODone (DESYREL) 50 mg tablet Take 1 tablet by mouth daily at bedtime. nitroglycerin sublingual (NITROQUICK) 0.4 mg SL tablet Dissolve 1 tablet under the tongue as directed. DISSOLVE ONE(1) TABLET UNDER THE TOUNGUE NEEDED FOR CHEST PAIN,EVERY 5 MIN X3 acetaminophen 650 mg CR tablet Take 1,300 mg by mouth every 8 hours as needed. mupirocin (BACTROBAN) 2 % ointment Apply 0.5 inch with cotton swab (Q-tip) to each nostril in the morning and evening for 5 days prior to and including day of surgery. REVIEW OF SYSTEMS: GENERAL: No fever, night sweats, weight loss or malaise. All other reviewed and negative other than HPI. PHYSICAL EXAMINATION: VITAL SIGNS: BP 147/92 Pulse 85 Temp (Src) 97.7 (Temporal) Wt 178 lb (80.7kg) SpO2 99% GENERAL APPEARANCE: Well appearing, in no acute distress, alert and oriented x3, well-hydrated, well nourished. I spent a total of 30 minutes on the date of the service which included preparing to see the patient, [id number] patient care, completing clinical documentation, obtaining and/or reviewing separately obtained history, counseling and educating the patient/family/caregiver, ordering medications, yusef ts, or procedures, independently interpreting results (not separately reported), and communicating results to the patient/family/caregiver. Also in discussion with orthopedics team. Electronically Signed: Kayla Machado MD 2024 documented in this encounterThe [facility]01-[facility]25 Telephone encounter Note * Telephone Encounter - Peg Johansen LPN - 2024 8:55 AM EST The patient has been identified by name and date of : Yes Caregiver verified no other encounters exist for this prescription request: Yes Caregiver confirmed with patient/requestor that no other refills are due, in the near future, with this provider at this time: Yes The last office visit in the department: 08/02/2024 Does the patient have a future office visit with this provider/department: Yes 09/16/2024 Requested Prescriptions Pending Prescriptions Disp Refills cyclobenzaprine (FLEXERIL) 5 mg tablet 180 tablet 1 Sig: Take 1 tablet by mouth two times a day as needed. Peg Johansen LPN 2024 8:56 AM [facility]01-[facility] Miscellaneous Notes* Telephone Encounter - Peg Johansen LPN - 2024 8:55 AM EST The patient has been identified by name and date of : Yes Caregiver verified no other encounters exist for this prescription request: Yes Caregiver confirmed with patient/requestor that no other refills are due, in the near future, with this provider at this time: Yes The last office visit in the department: 08/02/2024 Does the patient have a future office visit with this provider/department: Yes 09/16/2024 Requested Prescriptions Pending Prescriptions Disp Refills cyclobenzaprine (FLEXERIL) 5 mg tablet 180 tablet 1 Sig: Take 1 tablet by mouth two times a day as needed. Peg Johansen LPN 2024 8:56 AM documented in this encounterThe [facility]01-[facility]-2025 Telephone encounter Note * Telephone Encounter - Chinyere Bedoya - 09/13/2024 4:25 PM EST Talked to pt and scheduled him to see Dr Tripp tomorrow, Chinyere Bedoya [facility]01-[facility] Telephone encounter Note* Telephone Encounter - Kayla Machado MD - 09/13/2024 3:26 PM EST Ok i sean see pt this week if he can make it. Dr Xie [facility] Work Phone: [phone] Telephone encounter Note* Telephone Encounter - Cleo Padilla LPN - 09/13/2024 12:35 PM EST Next available apt? Cleo Padilla LPN [facility]01-21-2025 Telephone encounter Note* Telephone Encounter - Marga Clark RN - 09/13/2024 11:31 AM EST Pt calling in as he states he was at [facility] this morning to get his hip replaced but his surgery was cancelled as his platelets have dropped too low. Pt states he was in the bed with his IV in and ready for surgery when the surgeon came and cancelled him. Surgeon stated his platelets dropped from 88 to 64. Surgeon told him that he needed to see a dock attendant. Pt saw Dr. Machado on 05/06/24. [facility]01-21-2025 NoteHNO ID: [id number] Author: RYAN ALONZO MD Service: Orthopaedic Surgery Author Type: Physician Type: Plan of Care Filed: 09/13/2024 07:28 Note Text: Angie Fran Dutton [id number] 7:23 AM 09/13/2024 Patient with CBC this morning with plts of 64 , a drop of 30. Given the risk of proceeding with bleeding and complication and the patient being on plavix and eliquis post op, I believe the risk currently outweighs the benefit of proceeding with the PARAS. Recommendation for major orthopedic surgery is for plts of 100. Discussed with the patient. Will need to be optimized prior to undergoing PARAS. Follows with hematology with Dr. Machado. Ryan Alonzo, [facility], [id number] Telephone encounter Note* Telephone Encounter - Suly Valentine RN - 09/07/2024 8:47 AM EST Patient calling with question related to post-op home health services for future need. Information reviewed. Suly Valentine RN [facility]01-15-2025 Miscellaneous Notes* Telephone Encounter - Suly Valentine RN - 09/07/2024 8:47 AM EST Patient calling with question related to post-op home health services for future need. Information reviewed. Suly Valentine RN documented [facility] Telephone encounter Note * Telephone Encounter - Valery Quinteros APRN.CNP - 09/05/2024 4:49 PM EST The following approved medication requests have been transmitted electronically. Requested Prescriptions Pending Prescriptions Disp Refills docusate sodium (COLACE) 100 mg capsule 90 capsule 1 Sig: Take 1 capsule by mouth every morning. Valery Quinteros APRN.CNP [facility]01-13-2025 Miscellaneous Notes* Telephone Encounter - Valery Quinteros APRN.CNP - 09/05/2024 4:49 PM EST The following approved medication requests have been transmitted electronically. Requested Prescriptions Pending Prescriptions Disp Refills docusate sodium (COLACE) 100 mg capsule 90 capsule 1 Sig: Take 1 capsule by mouth every morning. Valery Quinteros APRN.CNP * Telephone Encounter - Peg Johansen LPN - 09/05/2024 12:40 PM EST calling for a prescription to be sent to pt's pharmacy on [address]. Pt has been taking hers per pt. Pt is getting ready for surgery and needs to be taking this per . Peg Johansen LPN The patient has been identified by name and date of : Yes Caregiver verified no other encounters exist for this prescription request: Yes Caregiver confirmed with patient/requestor that no other refills are due, in the near future, with this provider at this time: Yes The last office visit in the department: 08/02/2024 Does the patient have a future office visit with this provider/department: Yes 10/31/2024 Requested Prescriptions Pending Prescriptions Disp Refills docusate sodium (COLACE) 100 mg capsule 90 capsule 1 Sig: Take 1 capsule by mouth every morning. Peg Johansen LPN September 05, 2024 12:50 PM documented in [facility] Telephone encounter Note * Telephone Encounter - Peg Johansen LPN - 09/05/2024 12:40 PM EST calling for a prescription to be sent to pt's pharmacy on [address]. Pt has been taking hers per pt. Pt is getting ready for surgery and needs to be taking this per . Peg Johansen LPN The patient has been identified by name and date of : Yes Caregiver verified no other encounters exist for this prescription request: Yes Caregiver confirmed with patient/requestor that no other refills are due, in the near future, with this provider at this time: Yes The last office visit in the department: 08/02/2024 Does the patient have a future office visit with this provider/department: Yes 10/31/2024 Requested Prescriptions Pending Prescriptions Disp Refills docusate sodium (COLACE) 100 mg capsule 90 capsule 1 Sig: Take 1 capsule by mouth every morning. Peg Johansen LPN September 05, 2024 12:50 PM [facility]01-08-2025 Telephone encounter Note* Telephone Encounter - Tenisha Singletary MA - 08/31/2024 9:57 AM EST Updated chart Tenisha Singletary MA [facility]01-08-2025 Miscellaneous Notes* Telephone Encounter - Tenisha Singletary MA - 08/31/2024 9:57 AM EST Updated chart Tenisha Singletary MA * Telephone Encounter - Naomi Navarro - 08/31/2024 8:37 AM EST Pt daughter called in stating her brother Rich Dutton will be taking care of Cherelle egan as heis taking off work to care for Angie. Please call Rich for any care needs. Thank you Ph. [phone] documented in [facility]The [facility] Telephone encounter Note * Telephone Encounter - Ed Avendano PSS - 08/31/2024 8:44 AM EST TOTAL JOINT COMPLETE CARE PROGRAM PRE-OPERATIVE TEACHING Service Date: 08/31/2024 Service Time: 8:44 AM Date of : 1940 Gender: male Date of Surgery: 09/13/24 Procedure: Right Total Hip Replacement Complete Care Program was discussed with the patient: Lumite Injector Identification: 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 Pt has walker, bath bench. May have other things to borrow. Discussed with patient importance of attending joint education class and provided date and times ofclass: YES Patient declined. Patient received Joint Education Binder: Yes Plans discharge home with [facility]. SIGNATURE: JENNIFER Luther PATIENT NAME: Angie Dutton DATE: August 31, 2024 TIME: 8:44 AM [facility]01-08-2025 Miscellaneous Notes* Telephone Encounter - Ed Avendano PSS - 08/31/2024 8:44 AM EST TOTAL JOINT COMPLETE CARE PROGRAM PRE-OPERATIVE TEACHING Service Date: 08/31/2024 Service Time: 8:44 AM Date of : 1940 Gender: male Date of Surgery: 09/13/24 Procedure: Right Total Hip Replacement Complete Care Program was discussed with the patient: Lumite Injector Identification: 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 Pt has walker, bath bench. May have other things to borrow. Discussed with patient importance of attending joint education class and provided date and times ofclass: YES Patient declined. Patient received Joint Education Binder: Yes Plans discharge home with [facility]. SIGNATURE: JENNIFER Luther PATIENT NAME: Angie Dutton DATE: August 31, 2024 TIME: 8:44 AM documented in this encounterThe [facility] Telephone encounter Note * Telephone Encounter - Naomi Navarro - 08/31/2024 8:37 AM EST Pt daughter called in stating her brother Rich Dutton will be taking care of Cherelle egan as heis taking off work to care for Angie. Please call Rich for any care needs. Thank you Ph. [phone] [facility]01-07-2025 Instructions* Patient Instructions* Anne Alexander, PROTOZOOLOGIST.ASSISTANT PORTFOLIO MANAGER - 08/30/2024 8:57 AM EST Images from the original note were not included. [facility] PATIENT PREOPERATIVE INSTRUCTIONS Ryan Alonzo* has scheduled you for your procedure at this surgery center: [facility]: [phone] -- [address] [place] [address]. Please read below carefully for your personalized instructions. Dietary Restrictions: - No solid food after midnight. - You may have 12 ounces of clear liquids (water, clear juices such as apple juice or gatorade, carbonated beverages, clear tea, black coffee, jello) until 2 hours before scheduled arrival at facility. No red/purple coloring and no creamer/sugar Medications: Unless instructed differently below, stay on all of your medications until your surgery. If you start any new medications after today's visit, please contact your surgeon. Pre-Surgery Med Instructions Medication Instructions apixaban (ELIQUIS) 5 mg tab(s) Stop 3 days before surgery ferrous sulfate 325 mg (65 mg iron) tablet Stop 7 days before surgery pantoprazole DR (PROTONIX) 20 mg tablet Take the day of surgery with a small sip of water gabapentin (NEURONTIN) 400 mg capsule Take the day of surgery with a small sip of water metoprolol succinate ER (TOPROL XL) 50 mg 24 hr tablet Take the day of surgery with a small sip of water metFORMIN ER (GLUMETZA) 500 mg 24 hr tablet Do not take the day of surgery clopidogrel (PLAVIX) 75 mg tablet Stop 7 days before surgery cyclobenzaprine (FLEXERIL) 5 mg tablet IF needed ezetimibe (ZETIA) 10 mg tablet Take the day of surgery with a small sip of water isosorbide mononitrate ER (IMDUR) 30 mg 24 hr tablet Take the day of surgery with a small sip of water simvastatin (ZOCOR) 40 mg tablet Take the day of surgery with a small sip of water tamsulosin (FLOMAX) 0.4 mg Take the day of surgery with a small sip of water traZODone (DESYREL) 50 mg tablet Do not take the day of surgery nitroglycerin sublingual (NITROQUICK) 0.4 mg SL tablet IF needed acetaminophen 650 mg CR tablet IF needed If you take any medications for erectile dysfunction-Cialis (Tadalafil), Levitra, Staxyn (Vardenafil) Viagra (Sildenenafil please do not take these for 48 hours before surgery. If you start any new medications after today's visit, please contact the surgeon's office. If you are currently using a njpl-iho-iekw injectable or oral medication for diabetes or weight loss such as Dulaglutide (Trulicity), Exenatide (Byetta, Bydureon), Liraglutide (Victoza, Saxenda), Semaglutide (Ozempic, Wegovy, Rybelsus), or Tirzepatide (Mounjaro), the medicine should be stopped at least 7 days before surgery. These medicines can cause food to remain in your stomach for a very longtime and increase the risks from surgery and anesthesia. Not stopping the medication for a long enough time may result in your surgery being rescheduled. Blood Thinning Medications: - Stop NSAIDS (Ibuprofen, Advil, Aleve, Motrin, Celebrex, Mobic, etc.) 7 days before surgery, as directed by your surgeon. - Stop Aspirin 7 days before surgery, as directed by your surgeon. - Stop Plavix 7 days before surgery or as directed by physician. - Stop ALL herbal and dietary supplements 7 days before surgery. - You may take Tylenol (Acetaminophen) or any of your pain medications that do not contain aspirin or NSAIDS as needed. Important Reminders: - Candy, mints, and tobacco products are NOT permitted the morning of surgery. - Hearing aids, dentures and glasses may be worn the morning of surgery. - NO jewelry, body piercings, makeup, hairpins or contacts are to be worn the day of surgery. If you develop symptoms such as a fever, cold, or flu, or have other changes to your health within TWO DAYS of scheduled surgery or the morning of surgery, please contact the surgery center above. Personal Belongings: -Please have photo ID and insurance cards. -If you do not have a copy of advance directives on file with us, please bring a copy with you on the day of surgery. - Leave ALL valuables and money at home or with family members. - Please bring high-quality footwear, such as sneakers, to the hospital for ambulating post-surgery. For Outpatient Procedures: - YOU MUST HAVE A RESPONSIBLE CUSTOM FEED MILL OPERATOR HELPER TAKE YOU HOME. A SANITATION WORKER HOSING MACHINERY OR BANQUET BARTENDER CANNOT BE MADE A RESPONSIBLE CUSTOM FEED MILL OPERATOR HELPER. - We recommend that a responsible person stays with you overnight to take care of you. - You cannot stay in a hotel alone after outpatient surgery. You will not be permitted to have yoursurgery, if you do not have someone to take care of you. Arrival Time for Surgery: - The Surgery Center or hospital where you are having surgery will call the afternoon before surgery (or Thursday for Thursday surgery) with a scheduled arrival time. - If you have not heard by 4 pm, please contact the surgery center above. Please be aware that emergency situations arise, which may delay or change your surgical time. If this happens, we will notify you as soon as possible and regret any inconvenience. If you already have an Advance Directive, please fax a copy to [phone] or email to for it to be added to your chart. If you do not have an Advance Directive, you can find the appropriate form and more information at [email or web address]. We recommend that youcomplete the Advance Directive form found on the website and bring it with you the day of your surgery. It can be witnessed and scanned into your chart that day. Anne Alexander APRN.CATIA documented in this encounterThe [facility]01-[facility]25 History and physical note * Anne Alexander APRN.CNP - 08/30/2024 8:48 AM EST Images from the original note were not included. 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 Received cardiac optimization below. TE 04/05/2024 AC instructions Request sent to me to discuss recommendations for holding Plavix prior to upcoming hip surgery. Reviewed recent OV with Dr. Hernandez. Patient is s/p CABG in 1985 and stents in 2007 for which he has been managed on Plavix. He has a recent history of PAF which he is on Eliquis for OAC. He has been cleared to hold Eliquis for 3 days prior to planned hip surgery. Current trends show that patient with CAD who have been stable with no recent intervention or PCI can be managed on Eliquis alone to help decrease bleeding risk on dual therapy. Please call the patient and ask him to stop plavix for now and continue Eliquis. Hold Eliquis as recommended prior to surgery and resume at the discretion of the surgeon. Brittani Mace APRN.ASSISTANT PORTFOLIO MANAGER 03/02/2024 Dr. Tavares ASSESSMENT/PLAN: Preoperative cardiovascular exam Patient notes possible need for right hip surgery He will be an intermediate to higher cardiac risk He has no cardiac symptoms and remains in sinus He may hold Eliquis for 2-3 days prior to surgery and restart after safe from a surgical standpoint. Paroxysmal atrial fibrillation - sinus with frequent PACs on today's ekg - found to have AF RVR at admission to [facility] 09/2023 - converted to SR on admission - echo on admission normal EF, grade II DD, moderate LAE. - started on Toprol 50 mg daily and Eliquis 5 mg BID - regular on exam today - Toprol decreased to 25 mg daily last visit as he was concerned with low BP readings (increased to50 mg with RVR in [facility]) - [facility] 10/2023 no AF noted but had pSVT Coronary artery disease involving [place] coronary artery of [place] heart without angina pectoris - s/p CABGx 3 1985, PCI stent - 2007 - plavix 75 mg daily, Toprol 50 daily, simvastatin 40 mg and Imdur 15 mg daily - Continue secondary prevention Essential hypertension, benign - optimal control today >> patient voiced concerns about lower BP since starting Toprol for his AF. - Encouraged dietary sodium restriction/DASH diet - Recommended regular aerobic exercise. - Reviewed risks of HTN and principles of treatment - Goal of BP <130/80 Mixed hyperlipidemia - optimal control with LDL 59, 03/2023 and goal at < 70 - Continue current medication (simvastatin 40 mg, ezetimibe 10 mg) TIA (transient ischemic attack) - ? Related to undiagnosed AF - on Eliquis, Plavix and BB now We had a very long discussion reviewing the pathophysiology, testing and treatment options for Atrial Fibrillation. I discussed the risk of a thromboembolic event from this rhythm in reference to [id number] scoring and the risk of anticoagulation if needed according to the HAS-BLED scoring and oth er contributing risks. We discussed some of the causative factors often leading to AF including, but not limited to, hypertension, thyroid, sleep apnea and possible CAD. We will follow him periodically to help with secondary prevention watch for any recurrence paroxysmal atrial fibrillation. He should continue anticoagulation and beta-bryan. He is an intermediate to higher cardiac risk for surgery and may hold Eliquis 48 to 72 hrs preop. Thank you for allowing me the privilege of participating in the care of your patient. Please do nothesitate to contact me if there are any questions. 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) Assessment: controlled on rx Stage 3a chronic kidney disease (HCC) Assessment: Creatinine Date Value Ref Range Status 08/30/2024 1.32 (H) 0.73 - 1.22 mg/dL Final 05/02/2024 1.27 (H) 0.73 - 1.22 mg/dL Final 04/15/2024 1.28 (H) 0.73 - 1.22 mg/dL Final 01/11/2024 1.42 (H) 0.73 - 1.22 mg/dL Final MIXED HYPERLIPIDEMIA Assessment: c/w statin Paroxysmal A-fib (HCC) Assessment: controlled on rx, daily Eliquis, instructions received to hold 3 days prior to surgery Esophageal reflux Assessment: controlled on rx Chronic ITP (idiopathic thrombocytopenia) ([facility]) Assessment: hx, chronic, initial hematology consult 2020, PCP has been monitoring since, email to anesthesia for chart review Platelet Count Date Value Ref Range Status 08/30/2024 88 (L) 150 - 400 k/uL Final Comment: No clot detected. Iron deficiency anemia Assessment: hx, iron studies add to labs Hemoglobin (g/dL) Date Value 08/30/2024 12.7 08/31/2021 14.8 Hematocrit (%) Date Value 08/30/2024 40.0 08/31/2021 46.9 WBC (k/uL) Date Value 08/30/2024 5.55 08/31/2021 5.45 IMPAIRED FASTING GLUCOSE Assessment: diet controlled, new A1c pending Hemoglobin A1C (%) Date Value 04/15/2024 6.1 04/16/2021 5.7 Bilateral carotid artery stenosis Assessment: right 20-39%, left 60-79% Carotid US 08/2023, PCP monitoring, TIA (transient ischemic attack) Assessment: hx, likely related unknown pAfib at the time of TIA INSOMNIA NOS Assessment: rx as needed RBBB Assessment: complete RBBB, chronic on EKG, asymptomatic, following cardiology [place] Activity Status Index: METS: Walk indoors, such as around the house (1.75 METs) Do light work around the house, such as dusting or washing dishes (2.70 METs) Take care of self; that is eating, dressing, bathing, using the toilet (2.75 METs) DASI Score: 7.2 (With cane, slow antalgic gait) Patient denies any chest pain or undue shortness of breath with the above physical activity. Clinical Frailty Scale: 4. Apparently vulnerable STOP-Bang Score: Patient over 50 years old Male patient Denies snoring loudly Denies feeling tired, fatigued, or sleepy during the daytime Has not been observed to stop breathing or choking/gasping during sleep Denies having high blood pressure BMI less than or equal to 35 kg/m^2 Does not have a large neck STOP-Bang Score: 2 [id number] Score: Age: >=75 Sex: male CHF history: No Hypertension history: Yes Stroke/TIA/thromboembolism history: Yes Vascular disease history: Yes Diabetes history: No [id number] Score: 6 ARISCAT Score: Age: >80 Preoperative SpO2: >=96% Respiratory infection in the last month: No Preoperative anemia: Yes Surgical incision: peripheral Duration of surgery: 2-3 hrs Emergency procedure: No ARISCAT Score: 43 ANESTHESIA FINDINGS: Intubation History: No history of difficult intubation Significant Anesthesia Considerations: none Airway History: No history of difficult airway I - PHYSICAL EVALUATION AIRWAY Patient intubated: No. Tracheostomy tube not present Mallampati: III. TM distance: >3 FB. Neck ROM: full ROM without neurological symptoms. Mouth opening: adequate. Short neck: no. Thick neck: no Morin present: no Lip Bite Test: I Microretrognathia/Micronagthia/Recessed Chin: No DENTAL Dental findings: teeth intact. Dentures, upper: partial. II - ANESTHESIA PLAN Anesthetic Plan: other Anesthetic plan additional comments: *PACC/TCI - anesthesia choice. Beta Bryan Monitoring Plan Post Procedure Analgesic Plan Prepared for Surgery: optimally prepared for surgery, pending [see comment]. Labs and ekg CONSULTS: Patient does not require consults for optimization at this time Planned Anesthetic: other anesthesia choice The Following Tests/Procedures Have Been Initiated: Orders Placed This Encounter mupirocin (BACTROBAN) 2 % ointment Sig: Apply 0.5 inch with cotton swab (Q-tip) to each nostril in the morning and evening for 5 days prior to and including day of surgery. Dispense: 22 g Refill: 0 ECG COMPLETE Order Comments: Ordered by an unspecified provider REASON FOR VISIT: Angie Dutton is a 83 year old male who is scheduled for at the request of Dr. Ryan Alonzo for. My final recommendation will be communicated back to the requesting physician by way of shared medical record or letter. Subjective The patient has the following: COVID-19 Immunization Status Covid-19 Vaccine (Series Information) Completed 05/26/2024 Imm Admin: COVID-19 vaccine, age 12+ yr (PFIZER-BIONTECH COMIRNATY) 05/29/2023 Imm Admin: COVID-19 vaccine, age 12+ yr (PFIZER-BIONTECH COMIRNATY) 05/24/2022 Imm Admin: COVID-19 vaccine, age 12+ yr, bivalent (PFIZER-BIONTECH) Only the first 3 history entries have been loaded, but more history exists. CHIEF COMPLAINT: Pre-op exam HPI: Angie Dutton is a 83 year old seen for PAC due to scheduled above surgery because of OA right hip. 07/13/2024 Asif Gonzales PA-C ASSESSMENT & PLAN: Angie is a 83 year old male who presents to the office today for right hip follow up. He has been seeing Dr. Cristiano Ramos in the past for chronic management and hip injections. He reports that he did not care for Dr. Ramos, so he is seeing a new provider. Patient reports 2 years of right hip pain located in the groin and anterior thigh. Has been treated with 3 cortisone injections, one at [place] and 2 at [facility]. Most recent injection appears to be completed on August. He reports that he went into a-fib after the most recent injection and is now on Eliquis. He is a former smoker and quit in 1984. Denies history of blood clots or DM. He is on chronic anticoagulation with Eliquis and plavix Notable history includes CABG x 3 in 1981. CKD stage III 02/29/2024: Patient sees me today for right hip pain. He walks with a cane at baseline. He was previously very active but no longer can golf or do things due to the right hip pain. He is on Plavix and Eliquis for A-fib and CAD. He follows with cardiology here. Denies any fevers or chills no numbness or tingling. He continues to have severe right hip pain in the groin and limited range of motion. 07/13/2024: Patient returns today to discuss right total hip replacement today and getting rescheduled for surgery. We unfortunately had to cancel his surgery in May due to anemia and he was worked up with hematology and oncology. He is still currently on oral medications. Patient is chronically on Plavix and Eliquis. His blood counts were back to safe limits and we can proceed with rescheduling surgery. REVIEW OF SYSTEMS: General: No weight loss, malaise or fevers. Neurological: +insomnia, on rx Positive for: TIA. Respiratory: +former smoker Negative for: asthma, COPD, pneumonia within 6 weeks, tobacco use, URI < 2 weeks and obstructivesleep apnea. Cardiovascular: +carotid artery stenosis Positive for: anticoagulation therapy (Eliquis), atrial fibrillation, CAD, hyperlipidemia and hypertension Patient's last office visit The following tests and/or procedures were performed: cardiac stents. Negative for: abdominal aortic aneurysm, AICD/PPM, angina, arrhythmia, chest pain, CHF, congenital heart defect, DVT/PE, recent SC, murmur/valvular heart disease, PVD, open heart surgery and valve surgery. GI: Positive for: dysphagia and GERD (on rx) Negative for: abdominal pain, hepatitis, irritable bowel syndrome, inflammatory bowel disease, liver disease, nausea, pancreatitis, history of polyps, vomiting and ETOH >2 drinks/day. : Positive for: BPH (on rx) and renal failure. Patient's renal failure is chronic. Negative for: urinary incontinence, nephrolithiasis and urinary tract infection. Endocrine: No history of diabetes. Has not taken steroids within the past 30 days. No history of endocrinological symptoms or problems. Hematology: Positive for: bruises/bleeds easily and chronic anti-coagulation/platelet meds. Patient is on anti-coagulation/platelet medication(s): DOAC. Negative for: anemia and transfusion of at least 4 units within 72 hours prior to surgery. Oncology: No history of CA metastasis, chemo within 30 days, or radiotherapy within 90 days. No history of oncological symptoms or problems. Psych: Positive for: depression. Musculoskeletal: See HPI. Skin: Negative for lesions, rash and itching. Implanted Devices: No implanted devices. 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 PAST SURGICAL HISTORY Procedure Laterality Date ARTHROSCOPY KNEE DIAGNOSTIC W/WO SYNOVIAL BX SPX 2000 both COLONOSCOPY FLX DX W/COLLJ SPEC WHEN PFRMD 2001 Colonoscopy COLONOSCOPY FLX DX W/COLLJ SPEC WHEN PFRMD 07/13/2014 Colonoscopy COLONOSCOPY GEN ANES 11/26/2020 CORONARY ARTERY BYP W/VEIN & ARTERY GRAFT 3 VEIN 1981 CABG, three grafts EGD 11/26/2020 EGD 02/14/2021 EYE SURGERY HX FOOT SURGERY HX Left HEART SURGERY HX NEUROPLASTY &/TRANSPOS MEDIAN NRV CARPAL TUNNE 1998 Carpal tunnel decomp bilateral PAST SURGICAL HISTORY OF surgery on umbilicus due to bleeding PAST SURGICAL HISTORY OF 2 umbical mass resection SIGMOIDOSCOPY FLX DX W/COLLJ SPEC BR/WA IF PFRMD 08/29/2004 Sigmoidoscopy TONSILLECTOMY HX FAMILY HISTORY Problem Relation Age of Onset Heart Mother Hypertension Mother Heart Father Heart Sister Heart Brother Stroke Sister Colon Cancer No Family History Social History Tobacco Use Smoking status: Former Current packs/day: 0.00 Types: Cigarettes Start date: 08/24/1955 Quit date: 08/24/1984 Years since quittin.0 Smokeless tobacco: Never Tobacco comments: QUIT at age 44, started at 15 Vaping Use Vaping status: Never Used Substance Use Topics Alcohol use: Yes Comment: occ Drug use: Never Prior to Admission medications as of 08/30/24 0941 Medication Sig Last Dose Taking apixaban (ELIQUIS) 5 mg tab(s) Take 1 tablet by mouth two times a day. Taking Yes ferrous sulfate 325 mg (65 mg iron) tablet Take 1 tablet by mouth once daily. Taking Yes pantoprazole DR (PROTONIX) 20 mg tablet Take 2 tablets by mouth once daily. Taking Yes gabapentin (NEURONTIN) 400 mg capsule Take 1 capsule by mouth two times a day for 180 days. Taking Yes metoprolol succinate ER (TOPROL XL) 50 mg 24 hr tablet Take 1 tablet by mouth every afternoon. Taking Yes metFORMIN ER (GLUMETZA) 500 mg 24 hr tablet Take 1 tablet by mouth daily with breakfast. Taking Yes cyclobenzaprine (FLEXERIL) 5 mg tablet Take 1 tablet by mouth two times a day as needed. Taking Yes ezetimibe (ZETIA) 10 mg tablet Take 1 tablet by mouth once daily. Taking Yes isosorbide mononitrate ER (IMDUR) 30 mg 24 hr tablet Take 0.5 tablets by mouth once daily. Taking Yes simvastatin (ZOCOR) 40 mg tablet Take 1 tablet by mouth daily at bedtime. Taking Yes tamsulosin (FLOMAX) 0.4 mg Take 1 capsule by mouth daily at bedtime. Taking Yes traZODone (DESYREL) 50 mg tablet Take 1 tablet by mouth daily at bedtime. Taking Yes nitroglycerin sublingual (NITROQUICK) 0.4 mg SL tablet Dissolve 1 tablet under the tongue as directed. DISSOLVE ONE(1) TABLET UNDER THE TOUNGUE NEEDED FOR CHEST PAIN,EVERY 5 MIN X3 Taking Yes acetaminophen 650 mg CR tablet Take 1,300 mg by mouth every 8 hours as needed. Taking Yes mupirocin (BACTROBAN) 2 % ointment Apply 0.5 inch with cotton swab (Q-tip) to each nostril in the morning and evening for 5 days prior to and including day of surgery. Medication Comments documented by Alvin Saini PA-C on 01/17/2021 at 1108. Pantoprazole 20mg 2 tabs daily ALLERGIES Allergen Reactions Sulfa (Sulfonamide * Vomiting Objective PHYSICAL EXAM: General: alert and oriented (x3) and healthy appearance. Pertinent negatives noted - not distressed. Antalgic gait. Skin: normal color, no rash or lesions. HEENT: EOM intact, pupils equal round and carotid bruit. Cardiovascular: regular rate and rhythm, normal S1 and S2, no rub, murmurs, or gallop. Respiratory: normal breath sounds, no wheezes or crackles. No chest wall deformity or tenderness. Abdomen: soft. Pertinent negatives noted - not tender. Extremities: no deformity, no edema or tenderness, no joint swelling or clubbing. Neurological: normal cognition and motor skills. Positive for abnormal gait. PAIN ASSESSMENT: VITALS: BP 140/64 Pulse 82 Resp 14 Ht 5' 6 (1.68m) Wt 172 lb (78.0kg) SpO2 95% BMI 27.77 kg/(m^2). Diagnostic tests reviewed for today's visit: Lab Value Units Date High Low HB 12.7 g/dL 08/30/2024 17.0 13.0 HCT 40.0 % 08/30/2024 51.0 39.0 WBC 5.55 k/uL 08/30/2024 11.00 3.70 PLT 88 k/uL 08/30/2024 400 150 NA 141 mmol/L 08/30/2024 144 136 K 4.7 mmol/L 08/30/2024 5.1 3.7 GLUC 102 mg/dL 08/30/2024 99 74 BUN 13 mg/dL 08/30/2024 24 9 CREAT 1.32 mg/dL 08/30/2024 1.22 0.73 PTSEC No results within date range. INR No results within date range. APTT No results within date range. ALT 10 U/L 05/02/2024 54 10 AST 20 U/L 05/02/2024 40 14 TBILI 0.5 mg/dL 05/02/2024 1.3 0.2 TSH No results within date range. Lab Value Units Date High Low HCGQT No results within date range. UHCG No results within date range. HCG, BODY* No results within date range. Lab Value Units Date High Low ABORHD No results within date range. ABSCREEN No results within date range. Hemoglobin A1C (%) Date Value 04/15/2024 6.1 04/02/2023 5.7 07/24/2022 5.6 02/03/2022 5.8 04/16/2021 5.7 01/30/2020 5.7 08/05/2017 5.3 HBA1C, [place] (%) Date Value 02/28/2008 5.8 Recent Results (from the past 8760 hour(s)) ECG COMPLETE Collection Time: 08/30/24 10:05 AM Result Value Ventricular Rate 77 Atrial Rate 77 P-R Interval 206 QRS Duration 122 QT Interval 398 QTC Calculation (Bazett) 450 Calculated P [place] 72 Calculated R [place] -82 Calculated T [place] 11 Impression NORMAL SINUS RHYTHM LEFT AXIS DEVIATION COMPLETE RIGHT BUNDLE BRANCH BLOCK ABNORMAL ECG No results found for this or any previous visit (from the past 22566 hour(s)). Instructions Given to Patient: Instructions located in the after visit summary. Patient given verbal and written preop instructions and voices comprehension and compliance. SIGNATURE: Anne Alexander APRN.CNP PATIENT NAME: Angie Dutton DATE: August 30, 2024 TIME: 8:48 AM PAGER/CONTACT #: [email or web address] History and physical note* Anne Alexander APRN.CNP - 08/30/2024 8:48 AM EST Images from the original note were not included. 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 Received cardiac optimization below. TE 04/05/2024 AC instructions Request sent to me to discuss recommendations for holding Plavix prior to upcoming hip surgery. Reviewed recent OV with Dr. Hernandez. Patient is s/p CABG in 1985 and stents in 2007 for which he has been managed on Plavix. He has a recent history of PAF which he is on Eliquis for OAC. He has been cleared to hold Eliquis for 3 days prior to planned hip surgery. Current trends show that patient with CAD who have been stable with no recent intervention or PCI can be managed on Eliquis alone to help decrease bleeding risk on dual therapy. Please call the patient and ask him to stop plavix for now and continue Eliquis. Hold Eliquis as recommended prior to surgery and resume at the discretion of the surgeon. Brittani Mace APRN.ASSISTANT PORTFOLIO MANAGER 03/02/2024 Dr. Tavares ASSESSMENT/PLAN: Preoperative cardiovascular exam Patient notes possible need for right hip surgery He will be an intermediate to higher cardiac risk He has no cardiac symptoms and remains in sinus He may hold Eliquis for 2-3 days prior to surgery and restart after safe from a surgical standpoint. Paroxysmal atrial fibrillation - sinus with frequent PACs on today's ekg - found to have AF RVR at admission to [facility] 09/2023 - converted to SR on admission - echo on admission normal EF, grade II DD, moderate LAE. - started on Toprol 50 mg daily and Eliquis 5 mg BID - regular on exam today - Toprol decreased to 25 mg daily last visit as he was concerned with low BP readings (increased to50 mg with RVR in [facility]) - [facility] 10/2023 no AF noted but had pSVT Coronary artery disease involving [place] coronary artery of [place] heart without angina pectoris - s/p CABGx 3 1985, PCI stent - 2007 - plavix 75 mg daily, Toprol 50 daily, simvastatin 40 mg and Imdur 15 mg daily - Continue secondary prevention Essential hypertension, benign - optimal control today >> patient voiced concerns about lower BP since starting Toprol for his AF. - Encouraged dietary sodium restriction/DASH diet - Recommended regular aerobic exercise. - Reviewed risks of HTN and principles of treatment - Goal of BP <130/80 Mixed hyperlipidemia - optimal control with LDL 59, 03/2023 and goal at < 70 - Continue current medication (simvastatin 40 mg, ezetimibe 10 mg) TIA (transient ischemic attack) - ? Related to undiagnosed AF - on Eliquis, Plavix and BB now We had a very long discussion reviewing the pathophysiology, testing and treatment options for Atrial Fibrillation. I discussed the risk of a thromboembolic event from this rhythm in reference to [id number] scoring and the risk of anticoagulation if needed according to the HAS-BLED scoring and oth er contributing risks. We discussed some of the causative factors often leading to AF including, but not limited to, hypertension, thyroid, sleep apnea and possible CAD. We will follow him periodically to help with secondary prevention watch for any recurrence paroxysmal atrial fibrillation. He should continue anticoagulation and beta-bryan. He is an intermediate to higher cardiac risk for surgery and may hold Eliquis 48 to 72 hrs preop. Thank you for allowing me the privilege of participating in the care of your patient. Please do nothesitate to contact me if there are any questions. Jeanie Tavares, DO, FAC, [facility], FACOI Hypertensive kidney disease with stage 3a chronic kidney disease (HCC) Assessment: controlled on rx Stage 3a chronic kidney disease (HCC) Assessment: Creatinine Date Value Ref Range Status 08/30/2024 1.32 (H) 0.73 - 1.22 mg/dL Final 05/02/2024 1.27 (H) 0.73 - 1.22 mg/dL Final 04/15/2024 1.28 (H) 0.73 - 1.22 mg/dL Final 01/11/2024 1.42 (H) 0.73 - 1.22 mg/dL Final MIXED HYPERLIPIDEMIA Assessment: c/w statin Paroxysmal A-fib ([facility]) Assessment: controlled on rx, daily Eliquis, instructions received to hold 3 days prior to surgery Esophageal reflux Assessment: controlled on rx Chronic ITP (idiopathic thrombocytopenia) ([facility]) Assessment: hx, chronic, initial hematology consult 2020, PCP has been monitoring since, email to anesthesia for chart review Platelet Count Date Value Ref Range Status 08/30/2024 88 (L) 150 - 400 k/uL Final Comment: No clot detected. Iron deficiency anemia Assessment: hx, iron studies add to labs Hemoglobin (g/dL) Date Value 08/30/2024 12.7 08/31/2021 14.8 Hematocrit (%) Date Value 08/30/2024 40.0 08/31/2021 46.9 WBC (k/uL) Date Value 08/30/2024 5.55 08/31/2021 5.45 IMPAIRED FASTING GLUCOSE Assessment: diet controlled, new A1c pending Hemoglobin A1C (%) Date Value 04/15/2024 6.1 04/16/2021 5.7 Bilateral carotid artery stenosis Assessment: right 20-39%, left 60-79% Carotid US 08/2023, PCP monitoring, TIA (transient ischemic attack) Assessment: hx, likely related unknown pAfib at the time of TIA INSOMNIA NOS Assessment: rx as needed RBBB Assessment: complete RBBB, chronic on EKG, asymptomatic, following cardiology [place] Activity Status Index: METS: Walk indoors, such as around the house (1.75 METs) Do light work around the house, such as dusting or washing dishes (2.70 METs) Take care of self; that is eating, dressing, bathing, using the toilet (2.75 METs) DASI Score: 7.2 (With cane, slow antalgic gait) Patient denies any chest pain or undue shortness of breath with the above physical activity. Clinical Frailty Scale: 4. Apparently vulnerable STOP-Bang Score: Patient over 50 years old Male patient Denies snoring loudly Denies feeling tired, fatigued, or sleepy during the daytime Has not been observed to stop breathing or choking/gasping during sleep Denies having high blood pressure BMI less than or equal to 35 kg/m^2 Does not have a large neck STOP-Bang Score: 2 [id number] Score: Age: >=75 Sex: male CHF history: No Hypertension history: Yes Stroke/TIA/thromboembolism history: Yes Vascular disease history: Yes Diabetes history: No [id number] Score: 6 ARISCAT Score: Age: >80 Preoperative SpO2: >=96% Respiratory infection in the last month: No Preoperative anemia: Yes Surgical incision: peripheral Duration of surgery: 2-3 hrs Emergency procedure: No ARISCAT Score: 43 ANESTHESIA FINDINGS: Intubation History: No history of difficult intubation Significant Anesthesia Considerations: none Airway History: No history of difficult airway I - PHYSICAL EVALUATION AIRWAY Patient intubated: No. Tracheostomy tube not present Mallampati: III. TM distance: >3 FB. Neck ROM: full ROM without neurological symptoms. Mouth opening: adequate. Short neck: no. Thick neck: no Morin present: no Lip Bite Test: I Microretrognathia/Micronagthia/Recessed Chin: No DENTAL Dental findings: teeth intact. Dentures, upper: partial. II - ANESTHESIA PLAN Anesthetic Plan: other Anesthetic plan additional comments: *PACC/TCI - anesthesia choice. Beta Bryan Monitoring Plan Post Procedure Analgesic Plan Prepared for Surgery: optimally prepared for surgery, pending [see comment]. Labs and ekg CONSULTS: Patient does not require consults for optimization at this time Planned Anesthetic: other anesthesia choice The Following Tests/Procedures Have Been Initiated: Orders Placed This Encounter mupirocin (BACTROBAN) 2 % ointment Sig: Apply 0.5 inch with cotton swab (Q-tip) to each nostril in the morning and evening for 5 days prior to and including day of surgery. Dispense: 22 g Refill: 0 ECG COMPLETE Order Comments: Ordered by an unspecified provider REASON FOR VISIT: Angie Dutton is a 83 year old male who is scheduled for at the request of Dr. Ryan Alonzo for. My final recommendation will be communicated back to the requesting physician by way of shared medical record or letter. Subjective The patient has the following: COVID-19 Immunization Status Covid-19 Vaccine (Series Information) Completed 05/26/2024 Imm Admin: COVID-19 vaccine, age 12+ yr (PFIZER-BIONTECH COMIRNATY) 05/29/2023 Imm Admin: COVID-19 vaccine, age 12+ yr (PFIZER-BIONTECH COMIRNATY) 05/24/2022 Imm Admin: COVID-19 vaccine, age 12+ yr, bivalent (PFIZER-BIONTECH) Only the first 3 history entries have been loaded, but more history exists. CHIEF COMPLAINT: Pre-op exam HPI: Angie Dutton is a 83 year old seen for PAC due to scheduled above surgery because of OA right hip. 07/13/2024 Asif Gonzales PA-C ASSESSMENT & PLAN: Angie is a 83 year old male who presents to the office today for right hip follow up. He has been seeing Dr. Cristiano Ramos in the past for chronic management and hip injections. He reports that he did not care for Dr. Ramos, so he is seeing a new provider. Patient reports 2 years of right hip pain located in the groin and anterior thigh. Has been treated with 3 cortisone injections, one at [place] and 2 at [facility]. Most recent injection appears to be completed on August. He reports that he went into a-fib after the most recent injection and is now on Eliquis. He is a former smoker and quit in 1984. Denies history of blood clots or DM. He is on chronic anticoagulation with Eliquis and plavix Notable history includes CABG x 3 in 1981. CKD stage III 02/29/2024: Patient sees me today for right hip pain. He walks with a cane at baseline. He was previously very active but no longer can golf or do things due to the right hip pain. He is on Plavix and Eliquis for A-fib and CAD. He follows with cardiology here. Denies any fevers or chills no numbness or tingling. He continues to have severe right hip pain in the groin and limited range of motion. 07/13/2024: Patient returns today to discuss right total hip replacement today and getting rescheduled for surgery. We unfortunately had to cancel his surgery in May due to anemia and he was worked up with hematology and oncology. He is still currently on oral medications. Patient is chronically on Plavix and Eliquis. His blood counts were back to safe limits and we can proceed with rescheduling surgery. REVIEW OF SYSTEMS: General: No weight loss, malaise or fevers. Neurological: +insomnia, on rx Positive for: TIA. Respiratory: +former smoker Negative for: asthma, COPD, pneumonia within 6 weeks, tobacco use, URI < 2 weeks and obstructivesleep apnea. Cardiovascular: +carotid artery stenosis Positive for: anticoagulation therapy (Eliquis), atrial fibrillation, CAD, hyperlipidemia and hypertension Patient's last office visit The following tests and/or procedures were performed: cardiac stents. Negative for: abdominal aortic aneurysm, AICD/PPM, angina, arrhythmia, chest pain, CHF, congenital heart defect, DVT/PE, recent SC, murmur/valvular heart disease, PVD, open heart surgery and valve surgery. GI: Positive for: dysphagia and GERD (on rx) Negative for: abdominal pain, hepatitis, irritable bowel syndrome, inflammatory bowel disease, liver disease, nausea, pancreatitis, history of polyps, vomiting and ETOH >2 drinks/day. : Positive for: BPH (on rx) and renal failure. Patient's renal failure is chronic. Negative for: urinary incontinence, nephrolithiasis and urinary tract infection. Endocrine: No history of diabetes. Has not taken steroids within the past 30 days. No history of endocrinological symptoms or problems. Hematology: Positive for: bruises/bleeds easily and chronic anti-coagulation/platelet meds. Patient is on anti-coagulation/platelet medication(s): DOAC. Negative for: anemia and transfusion of at least 4 units within 72 hours prior to surgery. Oncology: No history of CA metastasis, chemo within 30 days, or radiotherapy within 90 days. No history of oncological symptoms or problems. Psych: Positive for: depression. Musculoskeletal: See HPI. Skin: Negative for lesions, rash and itching. Implanted Devices: No implanted devices. 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 PAST SURGICAL HISTORY Procedure Laterality Date ARTHROSCOPY KNEE DIAGNOSTIC W/WO SYNOVIAL BX SPX 2000 both COLONOSCOPY FLX DX W/COLLJ SPEC WHEN PFRMD 2001 Colonoscopy COLONOSCOPY FLX DX W/COLLJ SPEC WHEN PFRMD 07/13/2014 Colonoscopy COLONOSCOPY GEN ANES 11/26/2020 CORONARY ARTERY BYP W/VEIN & ARTERY GRAFT 3 VEIN 1981 CABG, three grafts EGD 11/26/2020 EGD 02/14/2021 EYE SURGERY HX FOOT SURGERY HX Left HEART SURGERY HX NEUROPLASTY &/TRANSPOS MEDIAN NRV CARPAL TUNNE 1998 Carpal tunnel decomp bilateral PAST SURGICAL HISTORY OF surgery on umbilicus due to bleeding PAST SURGICAL HISTORY OF 1961 umbical mass resection SIGMOIDOSCOPY FLX DX W/COLLJ SPEC BR/WA IF PFRMD 08/29/2004 Sigmoidoscopy TONSILLECTOMY HX FAMILY HISTORY Problem Relation Age of Onset Heart Mother Hypertension Mother Heart Father Heart Sister Heart Brother Stroke Sister Colon Cancer No Family History Social History Tobacco Use Smoking status: Former Current packs/day: 0.00 Types: Cigarettes Start date: 08/24/1957 Quit date: 08/24/1984 Years since quittin.0 Smokeless tobacco: Never Tobacco comments: QUIT at age 44, started at 15 Vaping Use Vaping status: Never Used Substance Use Topics Alcohol use: Yes Comment: occ Drug use: Never Prior to Admission medications as of 08/30/24 0941 Medication Sig Last Dose Taking apixaban (ELIQUIS) 5 mg tab(s) Take 1 tablet by mouth two times a day. Taking Yes ferrous sulfate 325 mg (65 mg iron) tablet Take 1 tablet by mouth once daily. Taking Yes pantoprazole DR (PROTONIX) 20 mg tablet Take 2 tablets by mouth once daily. Taking Yes gabapentin (NEURONTIN) 400 mg capsule Take 1 capsule by mouth two times a day for 180 days. Taking Yes metoprolol succinate ER (TOPROL XL) 50 mg 24 hr tablet Take 1 tablet by mouth every afternoon. Taking Yes metFORMIN ER (GLUMETZA) 500 mg 24 hr tablet Take 1 tablet by mouth daily with breakfast. Taking Yes cyclobenzaprine (FLEXERIL) 5 mg tablet Take 1 tablet by mouth two times a day as needed. Taking Yes ezetimibe (ZETIA) 10 mg tablet Take 1 tablet by mouth once daily. Taking Yes isosorbide mononitrate ER (IMDUR) 30 mg 24 hr tablet Take 0.5 tablets by mouth once daily. Taking Yes simvastatin (ZOCOR) 40 mg tablet Take 1 tablet by mouth daily at bedtime. Taking Yes tamsulosin (FLOMAX) 0.4 mg Take 1 capsule by mouth daily at bedtime. Taking Yes traZODone (DESYREL) 50 mg tablet Take 1 tablet by mouth daily at bedtime. Taking Yes nitroglycerin sublingual (NITROQUICK) 0.4 mg SL tablet Dissolve 1 tablet under the tongue as directed. DISSOLVE ONE(1) TABLET UNDER THE TOUNGUE NEEDED FOR CHEST PAIN,EVERY 5 MIN X3 Taking Yes acetaminophen 650 mg CR tablet Take 1,300 mg by mouth every 8 hours as needed. Taking Yes mupirocin (BACTROBAN) 2 % ointment Apply 0.5 inch with cotton swab (Q-tip) to each nostril in the morning and evening for 5 days prior to and including day of surgery. Medication Comments documented by Alvin Saini PA-C on 01/17/2021 at 1108. Pantoprazole 20mg 2 tabs daily ALLERGIES Allergen Reactions Sulfa (Sulfonamide * Vomiting Objective PHYSICAL EXAM: General: alert and oriented (x3) and healthy appearance. Pertinent negatives noted - not distressed. Antalgic gait. Skin: normal color, no rash or lesions. HEENT: EOM intact, pupils equal round and carotid bruit. Cardiovascular: regular rate and rhythm, normal S1 and S2, no rub, murmurs, or gallop. Respiratory: normal breath sounds, no wheezes or crackles. No chest wall deformity or tenderness. Abdomen: soft. Pertinent negatives noted - not tender. Extremities: no deformity, no edema or tenderness, no joint swelling or clubbing. Neurological: normal cognition and motor skills. Positive for abnormal gait. PAIN ASSESSMENT: VITALS: BP 140/64 Pulse 82 Resp 14 Ht 5' 6 (1.68m) Wt 172 lb (78.0kg) SpO2 95% BMI 27.77 kg/(m^2). Diagnostic tests reviewed for today's visit: Lab Value Units Date High Low HB 12.7 g/dL 08/30/2024 17.0 13.0 HCT 40.0 % 08/30/2024 51.0 39.0 WBC 5.55 k/uL 08/30/2024 11.00 3.70 PLT 88 k/uL 08/30/2024 400 150 NA 141 mmol/L 08/30/2024 144 136 K 4.7 mmol/L 08/30/2024 5.1 3.7 GLUC 102 mg/dL 08/30/2024 99 74 BUN 13 mg/dL 08/30/2024 24 9 CREAT 1.32 mg/dL 08/30/2024 1.22 0.73 PTSEC No results within date range. INR No results within date range. APTT No results within date range. ALT 10 U/L 05/02/2024 54 10 AST 20 U/L 05/02/2024 40 14 TBILI 0.5 mg/dL 05/02/2024 1.3 0.2 TSH No results within date range. Lab Value Units Date High Low HCGQT No results within date range. UHCG No results within date range. HCG, BODY* No results within date range. Lab Value Units Date High Low ABORHD No results within date range. ABSCREEN No results within date range. Hemoglobin A1C (%) Date Value 04/15/2024 6.1 04/02/2023 5.7 07/24/2022 5.6 02/03/2022 5.8 04/16/2021 5.7 01/30/2020 5.7 08/05/2017 5.3 HBA1C, Dinorah (%) Date Value 02/28/2008 5.8 Recent Results (from the past 8760 hour(s)) ECG COMPLETE Collection Time: 08/30/24 10:05 AM Result Value Ventricular Rate 77 Atrial Rate 77 P-R Interval 206 QRS Duration 122 QT Interval 398 QTC Calculation (Bazett) 450 Calculated P [place] 72 Calculated R [place] -82 Calculated T [place] 11 Impression NORMAL SINUS RHYTHM LEFT AXIS DEVIATION COMPLETE RIGHT BUNDLE BRANCH BLOCK ABNORMAL ECG No results found for this or any previous visit (from the past 22383 hour(s)). Instructions Given to Patient: Instructions located in the after visit summary. Patient given verbal and written preop instructions and voices comprehension and compliance. SIGNATURE: Anne Alexander APRN.CNP PATIENT NAME: Angie Dutton DATE: August 30, 2024 TIME: 8:48 AM PAGER/CONTACT #: documented in this encounterThe [facility]01-[facility] History of Present illness Narrative* Christina Szymanski MA - 08/25/2024 3:07 PM EST POPULATION HEALTH NAVIGATION OUTREACH Action/FYI while scheduling appointment for pt's she asked if I could schedule her a wellness appointment on the same day as her, appointment made Reason for Outreach Care Gap/HCC or Scheduling Wellness Visits Care Gaps due: Medicare Annual Wellness Visit Patient Contacted: Spoke to patient/parent/or legal guardian Patient identified by name and : Yes Care Gap/HCC/Scheduling Wellness actions taken: Patient scheduled/pended orders: Medicare Annual Wellness Visit 08/30/2024 in [facility] with [facility] 1 - ARTHROPLASTY ACETABULAR AND PROX FEM PROSTH TOTAL HIP ANTERIOR APPROACH W/W/O AUTOGRAFT JERI FREY [[id number]] - Hip - [facility] - 3 month f/u hip, anemia, BP 09/27/2024 in [facility] with ALMAS MELGAR - R PARAS 09/27/2024 in [facility] - R PARAS 10/10/2024 in [facility] with LORENZA CASTAÑEDA - transfer from [place] Paroxysmal atrialfibrillation 10/18/2024 [facility] - 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] 10/18/2024 [facility] THIERNO SRIVASTAVA - 1 year up after testing 10/[facility] - 3 month follow up 11/15/2024 in [facility] with [facility] - CBC, iron studies 11/21/2024 [facility] CARLIN KEENAN - 6MO OV / CBC, iron studies * 06/22/2025 in [facility] with VALERY QUINTEROS - medicare wellness Navigation Signature: Christina Szymanski MA August 25, 2024 3:07 PM documented in this encounterThe [facility]12-23-2024 Telephone encounter Note * Telephone Encounter - Yeny Clemens MSW - 08/15/2024 9:07 AM EST Sw left message for patient daughter Batsheva to return call to discuss patient assistance program info below. [facility]12-23-2024 Miscellaneous Notes* Telephone Encounter - Yeny Clemens MSW - 08/15/2024 9:07 AM EST Sw left message for patient daughter Batsheva to return call to discuss patient assistance program info below. * Telephone Encounter - Yeny Clemens MSW - 08/09/2024 10:49 AM EST Patient and Sw discussed Eliquis-[place] PAP program. Patient stated I do not understand what you are saying about out of pocket spend out on prescriptions. [place] [employer] has a 3% out of pocket spend out on prescriptions to meet program guidelines. They also have income guideline. Patient stated I don't know how much I get from social security or how much my makes. Sw asked if family may be helpful for Sw to speak with and discuss how a patient applies for assistance. Patient notes that his daughter Batsheva helps patient and spouse with bill pay. Patient notes that this Sw should reach out to daughter Batsheva on a Thursday morning as this would be best time to reach her. Sw will reach out to patient daughter next Thursday morning to discuss [place] [employer] PAP guidelines. Patient will need to meet the 3% of of pocket and income guidelines to apply to [employer] [employer] next year. Company rep said that patient will have to wait and apply after the new year since patient has Medicare. * Telephone Encounter - Yeny Clemens MSW - 08/04/2024 10:53 AM EST Sw spoke with patient in regards to Eliquis-[place] PAP. Sw tried to review guidelines of theprogram. Patient noted he was having trouble understanding the out of pocket 3% spend out on prescriptions for calendar year. Sw set up appt for patient to come in and see Sw on 08/08/24 @11am to review guidelines in person. Sw noted CR office location to patient. Patient reiterated that he would be in to see Alice on 08/08 @11am to review [employer] [employer] guidelines for assistance for next year. * Telephone Encounter - Yeny Clemens MSW - 08/02/2024 4:46 PM EST Sw will reach out to patient tomorrow to discuss Eliquis cost issue. * Telephone Encounter - Marychuy Bo MA - 08/02/2024 4:17 PM EST Patient asking for help with cost of Eliquis. Advised that we could ask social sciences department chair to see if patient would qualify for assistance. Marychuy Bo MA August 02, 2024 4:26 PM documented in this encounterThe [facility]12-17-2024 Telephone encounter Note * Telephone Encounter - Yeny Clemens MSW - 08/09/2024 10:49 AM EST Patient and Sw discussed Eliquis-[place] PAP program. Patient stated I do not understand what you are saying about out of pocket spend out on prescriptions. [employer] [employer] has a 3% out of pocket spend out on prescriptions to meet program guidelines. They also have income guideline. Patient stated I don't know how much I get from social security or how much my makes. Sw asked if family may be helpful for Sw to speak with and discuss how a patient applies for assistance. Patient notes that his daughter Batsheva helps patient and spouse with bill pay. Patient notes that this Sw should reach out to daughter Batsheva on a Thursday morning as this would be best time to reach her. Sw will reach out to patient daughter next Thursday morning to discuss [place] [employer] PAP guidelines. Patient will need to meet the 3% of of pocket and income guidelines to apply to [employer] [employer] next year. [employer] rep said that patient will have to wait and apply after the new year since patient has Medicare. [facility]12-12-2024 History of Present illness Narrative* Lauren Kim CT - 08/04/2024 5:30 PM EST Radiology Service Progress Note PATIENT NAME: Angie Dutton DATE OF SERVICE: August 04, 2024 TIME: 2:49 PM PATIENT IDENTITY VERIFICATION COMPLETED USING TWO (2) IDENTIFIERS: Name and Date of confirmedby patient verbally and Name and Date of confirmed by identification band. FALL SCREENING: Has the patient had 2 falls in the last year or 1 fall with injury or currently using an Ambulatory Assistive Device (Walker, Cane, Wheelchair, Crutches, etc.)? No PATIENT GENDER DATA: Male PATIENT RELEVANT IMPLANT DATA REVIEWED: Not Applicable PATIENT PRESENTS WITH AN IMPLANTABLE OR ATTACHED GAS TREATER: No RADIOLOGY DEPARTMENT: CT; Exam(s) Completed: Lower extremity PERIPHERAL IV DATA: Not applicable SIGNED BY: GODWIN Peter August 04, 2024 2:49 PM documented in this encounterThe [facility] Hospital12-12-2024 NoteHNO ID: [id number] Author: LAUREN KIM CT Service: Radiology Author Type: Technologist Type: Progress Notes Filed: 08/04/2024 14:49 Note Text: Radiology Service Progress Note PATIENT NAME: Angie Dutton DATE OF SERVICE: August 04, 2024 TIME: 2:49 PM PATIENT IDENTITY VERIFICATION COMPLETED USING TWO (2) IDENTIFIERS: Name and Date of confirmed by patient verbally and Name and Date of confirmed by identification band. FALL SCREENING: Has the patient had 2 falls in the last year or 1 fall with injury or currently using an Ambulatory Assistive Device (Walker, Cane, Wheelchair, Crutches, etc.)? No PATIENT GENDER DATA: Male PATIENT RELEVANT IMPLANT DATA REVIEWED: Not Applicable PATIENT PRESENTS WITH AN IMPLANTABLE OR ATTACHED GAS TREATER: No RADIOLOGY DEPARTMENT: CT; Exam(s) Completed: Lower extremity PERIPHERAL IV DATA: Not applicable SIGNED BY: GODWIN Peter August 04, 2024 2:49 PMLakehealth Tripoint Medical [id number] Telephone encounter Note* Telephone Encounter - Yeny Clemens MSW - 08/04/2024 10:53 AM EST Alice spoke with patient in regards to Eliquis-[place] PAP. Sw tried to review guidelines of theprogram. Patient noted he was having trouble understanding the out of pocket 3% spend out on prescriptions for calendar year. Alice set up appt for patient to come in and see Alice on 08/08/24 @11am to review guidelines in person. Alice noted CR office location to patient. Patient reiterated that he would be in to see Alice on 08/08 @11am to review [place] [employer] guidelines for assistance for next year. [facility]12-10-2024 Telephone encounter Note* Telephone Encounter - Yeny Clemens MSW - 08/02/2024 4:46 PM EST Sw will reach out to patient tomorrow to discuss Eliquis cost issue. [facility]12-10-2024 Note* Addendum Note - Valery Quinteros APRN.ASSISTANT PORTFOLIO MANAGER - 08/02/2024 4:34 PM ESTAddended by: VALERY QUINTEROS on: 08/02/2024 04:34 PM Modules accepted: Orders [facility]12-10-2024 Miscellaneous Notes* Addendum Note - Valery Quinteros APRN.ASSISTANT PORTFOLIO MANAGER - 08/02/2024 4:34 PM ESTAddended by: VALERY QUINTEROS on: 08/02/2024 04:34 PM Modules accepted: Orders * Addendum Note - Valery Quinteros APRN.CNP - 08/02/2024 4:32 PM EST Addended by: VALERY QUINTEROS on: 08/02/2024 04:32 PM Modules accepted: Orders documented in this encounterThe [facility]12-10-2024 Note* Addendum Note - Valery Quinteros APRN.ASSISTANT PORTFOLIO MANAGER - 08/02/2024 4:32 PM ESTAddended by: VALERY QUINTEROS on: 08/02/2024 04:32 PM Modules accepted: Orders [facility]12-10-2024 Telephone encounter Note* Telephone Encounter - Marychuy Bo MA - 08/02/2024 4:17 PM EST Patient asking for help with cost of Eliquis. Advised that we could ask social sciences department chair to see if patient would qualify for assistance. Marychuy Bo MA August 02, 2024 4:26 PM [facility]12-10-2024 Instructions* Patient Instructions* Valery Quinteros APRN.CNP - 08/02/2024 3:39 PM EST 1) Wants help with Eliquis- both pt. And on medication 2) follow up in 3 months, cancel Dwain appt. documented in this encounterThe [facility]12-10-2024 NoteAd[facility]12-10-2024 History of Present illness Narrative* Valery Quinteros APRN.CNP - 08/02/2024 3:18 PM EST This is a 83 year old male who presents today with: Patient presents with: Follow Up: 2 month exam Fall: Frequent falls HISTORY OF PRESENT ILLNESS: Angie Dutton is a 83 year old male. Patient presents with: Follow Up: 2 month exam Fall: Frequent falls Nearly fell today. A little light headed. Has been tripping on cane. Fell getting out of bed. Tripped on cane. Hit chair on padded chair. Left knee all skinned up. BSS 98-120 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 PAST SURGICAL HISTORY Procedure Laterality Date ARTHROSCOPY KNEE DIAGNOSTIC W/WO SYNOVIAL BX SPX 2000 both COLONOSCOPY FLX DX W/COLLJ SPEC WHEN PFRMD 2001 Colonoscopy COLONOSCOPY FLX DX W/COLLJ SPEC WHEN PFRMD 07/13/2014 Colonoscopy COLONOSCOPY GEN ANES 11/26/2020 CORONARY ARTERY BYP W/VEIN & ARTERY GRAFT 3 VEIN 1981 CABG, three grafts EGD 11/26/2020 EGD 02/14/2021 EYE SURGERY HX FOOT SURGERY HX Left HEART SURGERY HX NEUROPLASTY &/TRANSPOS MEDIAN NRV CARPAL TUNNE 1998 Carpal tunnel decomp bilateral PAST SURGICAL HISTORY OF surgery on umbilicus due to bleeding PAST SURGICAL HISTORY OF 1961 umbical mass resection SIGMOIDOSCOPY FLX DX W/COLLJ SPEC BR/WA IF PFRMD 08/29/2004 Sigmoidoscopy TONSILLECTOMY HX ALLERGIES Sulfa (Sulfonamide Antibiotics) MEDICATIONS Current Outpatient Medications Medication Sig ELIQUIS 5 mg tab(s) Take 1 tablet by mouth every 12 hours. ferrous sulfate 325 mg (65 mg iron) tablet Take 1 tablet by mouth once daily. apixaban (ELIQUIS) 5 mg tab(s) Take 1 tablet by mouth two times a day. ferrous sulfate 325 mg (65 mg iron) tablet Take 1 tablet by mouth once daily. pantoprazole DR (PROTONIX) 20 mg tablet Take 2 tablets by mouth once daily. gabapentin (NEURONTIN) 400 mg capsule Take 1 capsule by mouth two times a day for 180 days. metoprolol succinate ER (TOPROL XL) 50 mg 24 hr tablet Take 1 tablet by mouth every afternoon. metFORMIN ER (GLUMETZA) 500 mg 24 hr tablet Take 1 tablet by mouth daily with breakfast. clopidogrel (PLAVIX) 75 mg tablet Take 1 tablet by mouth once daily. cyclobenzaprine (FLEXERIL) 5 mg tablet Take 1 tablet by mouth two times a day as needed. ezetimibe (ZETIA) 10 mg tablet Take 1 tablet by mouth once daily. isosorbide mononitrate ER (IMDUR) 30 mg 24 hr tablet Take 0.5 tablets by mouth once daily. simvastatin (ZOCOR) 40 mg tablet Take 1 tablet by mouth daily at bedtime. tamsulosin (FLOMAX) 0.4 mg Take 1 capsule by mouth daily at bedtime. traZODone (DESYREL) 50 mg tablet Take 1 tablet by mouth daily at bedtime. nitroglycerin sublingual (NITROQUICK) 0.4 mg SL tablet Dissolve 1 tablet under the tongue as directed. DISSOLVE ONE(1) TABLET UNDER THE TOUNGUE NEEDED FOR CHEST PAIN,EVERY 5 MIN X3 acetaminophen 650 mg CR tablet Take 1,300 mg by mouth every 8 hours as needed. No current facility-administered medications for this visit. FAMILY HISTORY Problem Relation Age of Onset Heart Mother Hypertension Mother Heart Father Heart Sister Heart Brother Stroke Sister Colon Cancer No Family History Social History Tobacco Use Smoking status: Former Current packs/day: 0.00 Types: Cigarettes Start date: 08/24/1955 Quit date: 08/24/1984 Years since quittin.9 Smokeless tobacco: Never Tobacco comments: QUIT at age 44, started at 15 Vaping Use Vaping status: Never Used Substance Use Topics Alcohol use: Yes Comment: occ Drug use: Never REVIEW OF SYSTEMS GENERAL: No weight loss, malaise or fevers/chills HEENT: Negative for frequent or significant headaches, Poor hearing, no changes in vision. NECK: Negative for lumps, goiter, pain and significant neck swelling, Loses voice often- evaluated in past RESPIRATORY: Negative for cough, no wheezing, sometimes dyspnea or shortness of breath CARDIOVASCULAR: Negative for chest pain, leg swelling, orthopnea, or palpitations GI: No nausea, vomiting, + diarrhea/ no constipation. No hematochezia/melena. Occ heartburn or reflux symptoms. : No history of dysuria, no frequency, no incontinence MUSCULOSKELETAL: Negative for joint pain or swelling. Left knee was scraped- feeling better SKIN: Negative for lesions, rash, and itching ENDOCRINE: Negative for cold or heat intolerance, polyuria, polydipsia and goiter NEURO: No history of headaches, syncope, paralysis, seizures or tremors MOOD: Negative for depression, anxiety, or suicidal ideation. EXAM: BP 136/64 Pulse 87 Resp 18 Wt 78.8 kg (173 lb 11.6 oz) SpO2 96% BMI 28.04 kg/m 136/76 sitting and standing PHYSICAL EXAM: Physical Exam Vitals reviewed. Constitutional: Appearance: Normal appearance. HENT: Head: Normocephalic. Right Ear: Tympanic membrane, ear canal and external ear normal. Left Ear: Tympanic membrane, ear canal and external ear normal. Ears: Comments: Right ear bulging- red Nose: Nose normal. No congestion or rhinorrhea. Mouth/Throat: Mouth: Mucous membranes are dry. Pharynx: Oropharynx is clear. No oropharyngeal exudate or posterior oropharyngeal erythema. Eyes: Pupils: Pupils are equal, round, and reactive to light. Neck: Vascular: No carotid bruit. Cardiovascular: Rate and Rhythm: Normal rate and regular rhythm. Pulses: Normal pulses. Heart sounds: Normal heart sounds. Comments: Soft HERNÁN @ sternal border Pulmonary: Effort: Pulmonary effort is normal. Breath sounds: Normal breath sounds. Abdominal: General: Bowel sounds are normal. There is no distension. Palpations: Abdomen is soft. Tenderness: There is no abdominal tenderness. There is no guarding. Musculoskeletal: Cervical back: Normal range of motion and neck supple. Comments: Generalized weakness- walks w/ a cane Lymphadenopathy: Cervical: No cervical adenopathy. Skin: General: Skin is warm and dry. Neurological: Mental Status: He is alert and oriented to person, place, and time. Comments: Cranial nerves III-XII intact, no [id number] ataxia Psychiatric: Mood and Affect: Mood normal. Behavior: Behavior normal. LABS: ASSESSMENT/PLAN: 1. Atherosclerosis of [place] coronary artery of [place] heart without angina pectoris - ICD9: 414.01, ICD10: I25.10 (primary diagnosis) Stable 2. Screening for depression - ICD9: V79.0, ICD10: Z13.31 Denies 3. Encounter for screening examination for other mental health and behavioral disorders - ICD9: V79.8, ICD10: Z13.39 Denies 4. Paroxysmal A-fib (HCC) - ICD9: 427.31, ICD10: I48.0 Anticoagulated on DOAC 5. Essential hypertension, benign - ICD9: 401.1, ICD10: I10 - Controlled - Recommend home blood pressure monitoring, to bring results to next visit - Encouraged sodium restriction, DASH or Mediterranean diet - Recommend regular aerobic exercise 6. Gastroesophageal reflux disease without esophagitis - ICD9: 530.81, ICD10: K21.9 - Stable 7. Mixed hyperlipidemia - ICD9: 272.2, ICD10: E78.2 - Controlled - Counseled on healthy diet and regular exercise 8. Hypertensive kidney disease with stage 3a chronic kidney disease (HCC) - ICD9: 403.90, 585.3, ICD10: I12.9, N18.31 - Controlled - Recommend home blood pressure monitoring, to bring results to next visit - Encouraged sodium restriction, DASH or Mediterranean diet - Recommend regular aerobic exercise - eGFR: 55 Stable - Counseled on avoiding NSAIDs, adequate hydration 9. Falls - ICD9: V15.88, ICD10: R29.6 - order cane through DME at [employer] Discussed treatment plan and patient voices understanding. Patient's questions answered appropriately. Medications and potential side effects were discussed and patient voices understanding. Return to the office as scheduled or as needed for worsening/no improvement. Valery Quinteros APRN.CNP documented in this encounterThe [facility]12-05-2024 Telephone encounter Note * Telephone Encounter - Suly Valentine RN - 07/28/2024 3:45 PM EST Patient's , notified. Suly Valentine RN [facility]12-05-2024 Miscellaneous Notes* Telephone Encounter - Suly Valentine RN - 07/28/2024 3:45 PM EST Patient's , notified. Suly Valentine RN * Telephone Encounter - Valery Quinteros APRN.CNP - 07/28/2024 3:36 PM EST 30 day fill sent to local pharmacy * Telephone Encounter - Suly Valentine RN - 07/28/2024 1:54 PM EST Patient calling in and reports he has 3 days left of his Eliquis medication and will also low on his supply of ferrous sulfate 325 mg. Per record, pt should have received these medications through [facility] mail order. This nurse contacted [facility] and spoke with Laborer Car Barn Carlton. She states patient's medications are not on auto-refill and this is why they weren't sent to him. States patient must call them and request auto-refill. Patient updated of the above, and agreeable for 30 day supply to be sent to local pharmacy, [facility], so that patient will not run out of medication. Pended. Please call patient once these medication have been sent to [facility]. Thank you. Requested Prescriptions Pending Prescriptions Disp Refills ELIQUIS 5 mg tab(s) 60 tablet 0 Sig: Take 1 tablet by mouth every 12 hours. ferrous sulfate 325 mg (65 mg iron) tablet 30 tablet 0 Sig: Take 1 tablet by mouth once daily. Suly Valentine RN documented in this encounterThe [facility]12-05-2024 Telephone encounter Note * Telephone Encounter - Valery Quinteros APRN.CNP - 07/28/2024 3:36 PM EST 30 day fill sent to local pharmacy [facility]12-05-2024 Telephone encounter Note* Telephone Encounter - Suly Valentine RN - 07/28/2024 1:54 PM EST Patient calling in and reports he has 3 days left of his Eliquis medication and will also low on his supply of ferrous sulfate 325 mg. Per record, pt should have received these medications through [facility] mail order. This nurse contacted [facility] and spoke with Laborer Car Barn Carlton. She states patient's medications are not on auto-refill and this is why they weren't sent to him. States patient must call them and request auto-refill. Patient updated of the above, and agreeable for 30 day supply to be sent to local pharmacy, [facility], so that patient will not run out of medication. Pended. Please call patient once these medication have been sent to [facility]. Thank you. Requested Prescriptions Pending Prescriptions Disp Refills ELIQUIS 5 mg tab(s) 60 tablet 0 Sig: Take 1 tablet by mouth every 12 hours. ferrous sulfate 325 mg (65 mg iron) tablet 30 tablet 0 Sig: Take 1 tablet by mouth once daily. Suly Valentine RN [facility]11-20-2024 [facility]Cle[facility] History of Present illness Narrative* Asif Gonzales PA-C - 07/13/2024 12:10 PM EST Images from the original note were not included. Established Patient Ortho Hip Consult Note ASSESSMENT & PLAN: 02/26/2024: Angie is a 83 year old male who presents to the office today for right hip follow up. He has been seeing Dr. Cristiano Ramos in the past for chronic management and hip injections. He reports that he did not care for Dr. Ramos, so he is seeing a new provider. Patient reports 2 years of right hip pain located in the groin and anterior thigh. Has been treated with 3 cortisone injections, one at [place] and 2 at [facility]. Most recent injection appears to be completed on August. He reports that he went into a-fib after the most recent injection and is now on Eliquis. He is a former smoker and quit in 1984. Denies history of blood clots or DM. He is on chronic anticoagulation with Eliquis and plavix Notable history includes CABG x 3 in 1981. CKD stage III 02/29/2024: Patient sees me today for right hip pain. He walks with a cane at baseline. He was previously very active but no longer can golf or do things due to the right hip pain. He is on Plavix and Eliquis for A-fib and CAD. He follows with cardiology here. Denies any fevers or chills no numbness or tingling. He continues to have severe right hip pain in the groin and limited range of motion. 07/13/2024: Patient returns today to discuss right total hip replacement today and getting rescheduled for surgery. We unfortunately had to cancel his surgery in May due to anemia and he was worked up with hematology and oncology. He is still currently on oral medications. Patient is chronically on Plavix and Eliquis. His blood counts were back to safe limits and we can proceed with rescheduling surgery. Impression: Right Hip Severe Degenerative Osteoarthritis, Primary Angie Dutton has radiograph and physical exam evidence of degenerative joint disease and wishes to pursue surgery. This patient appears to have sufficient symptoms to warrant surgical intervention and is an appropriate candidate for right Primary Total Hip Arthroplasty as evidenced by six months ofunsuccessful non-operative treatment as outlined in the HPI below and progressive symptoms. Patient has failed conservative treatment for with regards to their R hip degenerative disease. Discussed surgical treatment in the form of a total hip replacement to address their condition. Discussed the benefits of the operation as well as the risks which include infection, dislocation, femoral nerve palsy, sciatic nerve palsy, dislocation, fracture, loosening of the components, DVT/PE, further need for revision surgery, and other complications related to anesthesia. Discussed various approaches used for total hip arthroplasty including posterior and Anterior-Based Muscle Sparing (ABMS). Patient understands the procedure, risks, and benefits and wishes to proceed with a R Anterior-Based Muscle Sparing total hip arthroplasty. Will schedule appointment for Preop Anesthesia Evaluation. The surgery will be scheduled for [facility]. Surgery: R JERI ABMS PARAS ([employer] vs [facility]) DVT ppx: Eliquis 2.5mg bid for POD1-4, then resume home on POD5, Plavix to be held until postop day7 if wound dry and no drainage Abx: Ancef + Doxy TXA: IV Progressive symptoms include: Pain impacting sleep or causing fatigue Pain worsened by weight bearing Pain effecting living situation Pain limiting ability to stay fit and healthy Unable to ambulate 2 blocks without significant pain and dysfunction. We had a lengthy discussion regarding the risk and benefit of surgery, the alternatives, limitations and personnel involved. These included but were not limited to infection, persistent pain, instability, nerve injury, blood clots, and medical complications. We also discussed the pre-operative course, surgery itself and rehabilitation. Tereza-operative blood management and transfusion issues were discussed, and options clearly outlined. The patient has consented to the use of the banked allogenic blood if medically necessary. The patient has elected to schedule surgery at this time or intends to call the office with a surgical date. Shared decision making occurred while obtaining informed consent. The patient will be scheduled for a pre-operative education class at which time they will have their nasal swab completed and will be given CHG cloths along with the verbal and written instructions for their use. Patient has been instructed and has been scheduled or will call to schedule attendence in one of the total joint perioperative classes offered prior to proceeding with PARAS.. The patient has been ordered: Anemia Screen Albumin Level HbA1C CT Angie Dutton meets the following criteria for CT: Hip jeri planning CONSULTS: Internal Medicine Consult for preoperative clearance. Hematology Consult for anemia. ACTIVE PROBLEM LIST Spinal Stenosis, Lumbar Region, Without Neurogenic Claudication Thoracic Or Lumbosacral Neuritis Or Radiculitis, Unspecified Lumbosacral Spondylosis Without Myelopathy Essential Hypertension, Benign Mixed Hyperlipidemia Coronary Atherosclerosis Insomnia, Unspecified Esophageal Reflux Impaired Fasting Glucose Allergic Rhinitis, Cause Unspecified Elevated Serum Creatinine Serum Calcium Elevated Atherosclerosis of [place] Coronary Artery of [place] Heart With Stable Angina Pectoris (Hcc) Tia (Transient Ischemic Attack) Chronic Right Hip Pain Pain of Right Calf Stage 3a Chronic Kidney Disease (Hcc) Iron Deficiency Anemia Chronic Itp (Idiopathic Thrombocytopenia) (Hcc) Right Groin Pain Hypertensive Kidney Disease With Stage 3a Chronic Kidney Disease (Hcc) Bilateral Carotid Artery Stenosis Paroxysmal A-Fib (Hcc) SUBJECTIVE CHIEF COMPLAINT: Hip Pain HPI: Angie Dutton is a 83 year old patient here for evaluation and management of Right hip pain. 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 The problem began limiting activities 1-3 years ago. Currently the pain in the joint is rated at 8 out of 10 with minimal activity. The pain is chronic and constant and is located in the right groin, outer aspect of the hip, and thigh. The pain is described as sharp and shooting. Relieving factors include no relieving factors. There is no specific incident that brought about this pain. Patient has no additional complaints. Total Joint Arthroplasty: Risk Calculator Angie Dutton has a 41.15% chance of NOT returning home at discharge for a Primary total Hip replacement. Angie's estimated Length of Stay is 2 days (Inpatient candidate). Angie's 30 day chance of readmission is 9.12%. Readmission Probability 9.12 % (within 30 days following surgery) Estimated LOS 2 days Discharge Disposition Probability D/C to Home 58.85 % D/C to SNF 41.15 % These calculations are based on the following factors: - 83 years of age - sex is male - BMI of 27.04 kg/m2 - NarxCare score of 0 - 0 hospitalizations in the last 12 months - history of heart disease - history of diabetes - no history of COPD - history of anemia - preoperative ambulation: independent community distances - 2 step(s) to enter home - bed location is on the first floor - bath location is on the first floor - caregiver is consistent - home is not more than 150 miles away - PROMIS-10 Mental Health T score not available - Marital status: PREVIOUS TREATMENTS: Attempted Weight Loss Medical: Intolerant of NSAIDS, Steroid Injections Right Hip Risk Factors for Total Joint Arthroplasty (TJA) Obesity normal High: BMI > 40 Moderate: BMI 30-40 Normal: BMI < 30 Diabetes Moderate Risk High: A1C > 8 Moderate: A1C 7-8 Normal: A1C < 7 Smoking normal High: Current smoker Normal: Non smoker Anemia High Risk High: Hgb < 13 (men) N/A: Hgb >= 13 (men) Nutritional Status normal High: Alb<3.4, or prealb<15, or serum transferrin<200, or total lymphocyte count<1500 Normal: normal labs COPD normal High: dx of COPD Normal: no dx of COPD MRSA normal High: dx of MRSA or positive lab test Normal: no MRSA CKD normal High: eGFR<60 Moderate: eGFR 60-89 Normal: eGFR>90 Hx of DVT / PE normal High: dx of DVT / PE Normal: no dx of DVT / PE Narcotics Use normal High:NarxCare >=300 Moderate: 100-299 Normal: 0-99 KATYA normal High: dx of KATYA N/A: no dx of KATYA Coagulation High Risk High:PT Sec>13, or PT INR>1.3, or APTT>32.4, or Plt ct<150k Moderate: on anticoag but none of the above Normal: none Diabetes: Well controlled - Angie has been diagnosed with Type 2 Diabetes. His last Hemoglobin A1C was 6.1 (04/15/2024). Pt is followed by Valery Quinteros APRN.CNP for Type 2 Diabetes - last seen on 05/26/2024. Anemia Hemoglobin (g/dL) Date Value 05/23/2024 11.4 05/02/2024 9.7 08/31/2021 14.8 07/15/2021 13.5 Coagulation Latest Ref Rng & Units 04/12/2008 Coag/Hyper Coag Labs PT INR 0.8 - 1.7 1.0 PT Sec 10.0 - 14.0 sec 12.2 Latest Ref Rng & Units 04/15/2024 05/02/2024 05/23/2024 Hemoglobin and Platelets Hemoglobin 13.0 - 17.0 g/dL 9.4 9.7 11.4 Platelet Count 150 - 400 k/uL 106 98 101 Other Risk Factors Heart Disease PHYSICAL EXAM There were no vitals taken for this visit. All other systems deferred. GENERAL: Appears healthy, well-nourished, no deformities. HABITUS: Normal GAIT: Antalgic to the right and Ambulatory Aid: a cane HIP EXAM: Right: ROM: Extension: slight flexion contracture Flexion: 90 degrees Internal Rotation: 5 degrees External Rotation: 20 degrees Abduction: 20 degrees Adduction: 15 degrees Strength: Abduction 5/5 and Flexion 5/5 Palpation: Tenderness over right greater trochanter Log roll: painful. Straight leg raise: Positive, reproducing hip symptoms Neurovascular Status: Sensation Intact, Moves foot and ankle up & down, and 2+ dorsalis pedis DATA: Diagnostic tests reviewed for today's visit: X-ray of the right hip shows severe degenerative changes with complete joint space narrowing superior migration of the femoral head. There is some lytic lesions in the femoral head likely due to joint line cyst. There is some osteophytes as well. I spent a total of 25 minutes on the date of the service which included preparing to see the patient, [id number] patient care, completing clinical documentation, obtaining and/or reviewing separately obtained history, performing a medically appropriate examination, counseling and educating the pat ient/family/caregiver, ordering medications, tests, or procedures, independently interpreting results (not separately reported), communicating results to the patient/family/caregiver, and care coordination (not separately reported). Will continue to monitor patient for Primary osteoarthritis of right hip (primary encounter diagnosis) Pre-op examination, patient to schedule visit as per follow up discussed. 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 Aracelis ortiz used as a crutch FBS range 80-110 wishes he could walk Appt with Ortho 07/13 for hip surgery Wt. 164 lbs Contacted for: Routine Telephonic Outreach Contact made with patient: Yes Patient identified by name and date of . Discussed care with patient Are you experiencing any new or worsening symptoms you need to talk about today? No Disease Specific Do you check your blood pressure at home? Yes, Enter readings: not reported Do you have new or worsening shortness of breath with activity? No Do you feel like you are dehydrated for any reason, including not being able to eat or drink normally, or having less urine/much darker urine than normal for you? No Do you check your daily weight at home? Yes, Have you noticed a sudden gain in weight greater than three pounds in a day or three pounds in a week? No Based on assessment coordinator, the following disposition is advised: No symptoms or symptoms present, not severe. Routed to: No Action Needed EDWARDO Education Provided this Outreach: No Beryl Kuhn RN July 07, 2024 4:12 PM documented in this encounterThe [facility]10-[facility]10-[facility]-20[facility] History of Present illness Narrative* Lissette Cantu RN - 06/09/2024 4:04 PM EDT M Telephonic Outreach Provider Action/FYI CKD Seen in primary care 2 weeks ago, no new changes Patient states only concern is trying to get hip replaced Has been taking his iron and his labs are improved Has ortho follow up on Jun 24 and hoping to get rescheduled for hip surgery Contacted for: Routine Telephonic Outreach Contact made with patient: Yes Patient identified by name and date of . Discussed care with patient Are you experiencing any new or worsening symptoms you need to talk about today? No Disease Specific Do you check your blood pressure at home? Yes, Enter readings: good Do you have new or worsening shortness of breath with activity? No Do you feel like you are dehydrated for any reason, including not being able to eat or drink normally, or having less urine/much darker urine than normal for you? No Do you check your daily weight at home? Yes, Have you noticed a sudden gain in weight greater than three pounds in a day or three pounds in a week? No Based on assessment coordinator, the following disposition is advised: No symptoms or symptoms present, not severe. Routed to: No Action Needed EDWARDO Education Provided this Outreach: No Lissette Cantu RN June 09, 2024 4:15 PM documented in this encounterThe [facility]10-03-[facility]24 Instructions* Patient Instructions* Valery Quinteros APRN.CNP - 05/26/2024 10:24 AM EDT 1) No change in medications (continue iron and metformin, too) 2) Follow up in 3 months 3) Reconsult ortho documented in this encounterThe [facility]10-[facility] History of Present illness Narrative* Valery Quinteros APRN.CNP - 05/26/2024 10:00 AM EDT This is a 83 year old male who presents today with: Patient presents with: Follow Up HISTORY OF PRESENT ILLNESS: Angie Dutton is a 83 year old male. Patient presents with: Follow Up Anemia has resolved. Wanting to get right PARAS. HTN: Patient is compliant with meds Yes Monitors bp at home: Yes. Denies side effects: No. Chest pain: No. Dyspnea: with exertion. Edema: Yes- trace? Palpitations: No. Syncope: No. Headache: No. Dizziness: No. 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 PAST SURGICAL HISTORY Procedure Laterality Date ARTHROSCOPY KNEE DIAGNOSTIC W/WO SYNOVIAL BX SPX 2000 both COLONOSCOPY FLX DX W/COLLJ SPEC WHEN PFRMD 2001 Colonoscopy COLONOSCOPY FLX DX W/COLLJ SPEC WHEN PFRMD 07/13/2014 Colonoscopy COLONOSCOPY GEN ANES 11/26/2020 CORONARY ARTERY BYP W/VEIN & ARTERY GRAFT 3 VEIN 1981 CABG, three grafts EGD 11/26/2020 EGD 02/14/2021 EYE SURGERY HX FOOT SURGERY HX Left HEART SURGERY HX NEUROPLASTY &/TRANSPOS MEDIAN NRV CARPAL TUNNE 1998 Carpal tunnel decomp bilateral PAST SURGICAL HISTORY OF surgery on umbilicus due to bleeding PAST SURGICAL HISTORY OF 196 umbical mass resection SIGMOIDOSCOPY FLX DX W/COLLJ SPEC BR/WA IF PFRMD 08/29/2004 Sigmoidoscopy TONSILLECTOMY HX ALLERGIES Sulfa (Sulfonamide Antibiotics) MEDICATIONS Current Outpatient Medications Medication Sig metoprolol succinate ER (TOPROL XL) 50 mg 24 hr tablet Take 1 tablet by mouth every afternoon. ferrous sulfate 325 mg (65 mg iron) tablet Take 1 tablet by mouth once daily. metFORMIN ER (GLUMETZA) 500 mg 24 hr tablet Take 1 tablet by mouth daily with breakfast. clopidogrel (PLAVIX) 75 mg tablet Take 1 tablet by mouth once daily. cyclobenzaprine (FLEXERIL) 5 mg tablet Take 1 tablet by mouth two times a day as needed. ELIQUIS 5 mg tab(s) Take 1 tablet by mouth every 12 hours. ezetimibe (ZETIA) 10 mg tablet Take 1 tablet by mouth once daily. isosorbide mononitrate ER (IMDUR) 30 mg 24 hr tablet Take 0.5 tablets by mouth once daily. pantoprazole DR (PROTONIX) 20 mg tablet Take 2 tablets by mouth once daily. simvastatin (ZOCOR) 40 mg tablet Take 1 tablet by mouth daily at bedtime. tamsulosin (FLOMAX) 0.4 mg Take 1 capsule by mouth daily at bedtime. traZODone (DESYREL) 50 mg tablet Take 1 tablet by mouth daily at bedtime. gabapentin (NEURONTIN) 400 mg capsule Take 1 capsule by mouth two times a day for 180 days. nitroglycerin sublingual (NITROQUICK) 0.4 mg SL tablet Dissolve 1 tablet under the tongue as directed. DISSOLVE ONE(1) TABLET UNDER THE TOUNGUE NEEDED FOR CHEST PAIN,EVERY 5 MIN X3 acetaminophen 650 mg CR tablet Take 1,300 mg by mouth every 8 hours as needed. No current facility-administered medications for this visit. FAMILY HISTORY Problem Relation Age of Onset Heart Mother Hypertension Mother Heart Father Heart Sister Heart Brother Stroke Sister Colon Cancer No Family History Social History Tobacco Use Smoking status: Former Current packs/day: 0.00 Types: Cigarettes Start date: 08/24/1955 Quit date: 08/24/1984 Years since quittin.7 Smokeless tobacco: Never Tobacco comments: QUIT at age 44, started at 15 Vaping Use Vaping status: Never Used Substance Use Topics Alcohol use: Yes Comment: occ Drug use: Never EXAM: BP 128/76 Pulse 75 Wt 76 kg (167 lb 8.8 oz) SpO2 98% BMI 27.04 kg/m PHYSICAL EXAM: Physical Exam Vitals reviewed. Constitutional: Appearance: Normal appearance. HENT: Head: Normocephalic. Cardiovascular: Rate and Rhythm: Normal rate and regular rhythm. Pulses: Normal pulses. Heart sounds: Normal heart sounds. Pulmonary: Effort: Pulmonary effort is normal. Breath sounds: Normal breath sounds. Abdominal: General: Bowel sounds are normal. Palpations: Abdomen is soft. Tenderness: There is no abdominal tenderness. There is guarding. There is no rebound. Musculoskeletal: Comments: Walks with a cane. Right hip pain radiating down inner leg Skin: General: Skin is warm and dry. Neurological: Mental Status: He is alert and oriented to person, place, and time. Psychiatric: Mood and Affect: Mood normal. Behavior: Behavior normal. LABS: Anemia stable- to stay on iron per hematology ASSESSMENT/PLAN: 1. Primary osteoarthritis of right hip - ICD9: 715.15, ICD10: M16.11 (primary diagnosis) Wanting right hip replaced, higher risk d/t anemia and ITP - CONSULT PANEL TO ORTHOPAEDICS - GABAPENTIN 400 MG CAPSULE 2. Iron deficiency anemia, unspecified iron deficiency anemia type - ICD9: 280.9, ICD10: D50.9 Improved - PANTOPRAZOLE 20 MG TABLET,DELAYED RELEASE - CONSULT PANEL TO ORTHOPAEDICS - CONSULT PANEL TO ORTHOPAEDICS 3. Dyspepsia - ICD9: 536.8, ICD10: R10.13 - Stable - PANTOPRAZOLE 20 MG TABLET,DELAYED RELEASE 4. Dysphagia, unspecified type - ICD9: 787.20, ICD10: R13.10 Stable - PANTOPRAZOLE 20 MG TABLET,DELAYED RELEASE 5. Encounter for immunization - ICD9: V03.89, ICD10: Z23 - PFIZER-BIONTECH COVID-19 VACCINE AGE 12+ YR (COMIRNATY) 6. Insomnia, unspecified type - ICD9: 780.52, ICD10: G47.00 Improved per pt. 7. Essential hypertension, benign - ICD9: 401.1, ICD10: I10 - Controlled - Recommend home blood pressure monitoring, to bring results to next visit - Encouraged sodium restriction, DASH or Mediterranean diet - Recommend regular aerobic exercise 8. 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) - ICD9: 414.01, 413.9, ICD10: I25.118 Asymptomatic 9. Stage 3a chronic kidney disease (HCC) - ICD9: 585.3, ICD10: N18.31 - eGFR: 55 Stable - Counseled on avoiding NSAIDs, adequate hydration 10. Chronic ITP (idiopathic thrombocytopenia) (HCC) - ICD9: 287.31, ICD10: D69.3 Stable 11. Spinal stenosis, lumbar region, without neurogenic claudication - ICD9: 724.02, ICD10: M48.061 Ongoing - GABAPENTIN 400 MG CAPSULE 12. Prediabetes - ICD9: 790.29, ICD10: R73.03 - Stable on metformin Discussed treatment plan and patient voices understanding. Patient's questions answered appropriately. Medications and potential side effects were discussed and patient voices understanding. Return to the office as scheduled or as needed for worsening/no improvement. Valery Quinteros APRN.CATIA documented in this encounterThe [facility]10-03-2024 NoteAd[facility]09-30-2024 History of Present illness Narrative* Carlin Keenan - 05/23/2024 11:30 AM EDT Angie Dutton 1940 05/23/2024 HISTORY OF PRESENT ILLNESS: Angie Dutton is a 83 year old male late March 2024, his dog bit his right forearm, was squirted out per pt, blood was everywhere. Went to [facility]. Notes and labs reviewed. Hgb was down to 8.7 in late March (about 1 week after this happened). Iron was low, placed on oral iron April 19, 2024. Labs look like iron is absorbing. US liver in 2018 showed coarse echotexture CrCl 38 Wants hip replacement won;t do now because of anemia Interval Hx: Pt presents today for follow up and lab review. Denies any new issues. Reviewed lab results, hgb has improved. Taking PO iron without issues. No issues with bleeding or bruising. Hip still hurting. Thrombocytopenia is stable. Per records dates back >10 years. Very active, golmarvin, ran a marathon at 75 with his son. Does all ADLs,cares for his . Denies SOB, CP. No changes in bowel or bladder habits. Stools dark since starting PO iron. No BRBPR. Appetite good, energy level stable. 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 US likely showing fatty liver. - remains stable >10 years denies any current bleeding. Worsened anemia due to recent blood loss, iron deficiency. ?component of renal insufficiency - not a candidate for epo with hgb >10 - labs improved RECOMMENDATION/PLAN: 1. Continue oral iron, tolerating well 2. Recheck labs in 6 months with CBC, iron studies 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 PAST SURGICAL HISTORY Procedure Laterality Date ARTHROSCOPY KNEE DIAGNOSTIC W/WO SYNOVIAL BX SPX 2000 both COLONOSCOPY FLX DX W/COLLJ SPEC WHEN PFRMD 2001 Colonoscopy COLONOSCOPY FLX DX W/COLLJ SPEC WHEN PFRMD 07/13/2014 Colonoscopy COLONOSCOPY GEN ANES 11/26/2020 CORONARY ARTERY BYP W/VEIN & ARTERY GRAFT 3 VEIN 1981 CABG, three grafts EGD 11/26/2020 EGD 02/14/2021 EYE SURGERY HX FOOT SURGERY HX Left HEART SURGERY HX NEUROPLASTY &/TRANSPOS MEDIAN NRV CARPAL TUNNE 1998 Carpal tunnel decomp bilateral PAST SURGICAL HISTORY OF surgery on umbilicus due to bleeding PAST SURGICAL HISTORY OF 1961 umbical mass resection SIGMOIDOSCOPY FLX DX W/COLLJ SPEC BR/WA IF PFRMD 08/29/2004 Sigmoidoscopy TONSILLECTOMY HX FAMILY HISTORY Problem Relation Age of Onset Heart Mother Hypertension Mother Heart Father Heart Sister Heart Brother Stroke Sister Colon Cancer No Family History Social History Tobacco Use Smoking status: Former Current packs/day: 0.00 Types: Cigarettes Start date: 08/24/1955 Quit date: 08/24/1984 Years since quittin.7 Smokeless tobacco: Never Tobacco comments: QUIT at age 44, started at 15 Vaping Use Vaping status: Never Used Substance Use Topics Alcohol use: Yes Comment: occ Drug use: Never ALLERGIES: ALLERGIES Allergen Reactions Sulfa (Sulfonamide * Vomiting CURRENT OUTPATIENT MEDICATIONS: metoprolol succinate ER (TOPROL XL) 50 mg 24 hr tablet Take 1 tablet by mouth every afternoon. ferrous sulfate 325 mg (65 mg iron) tablet Take 1 tablet by mouth once daily. metFORMIN ER (GLUMETZA) 500 mg 24 hr tablet Take 1 tablet by mouth daily with breakfast. cyclobenzaprine (FLEXERIL) 5 mg tablet Take 1 tablet by mouth two times a day as needed. ELIQUIS 5 mg tab(s) Take 1 tablet by mouth every 12 hours. ezetimibe (ZETIA) 10 mg tablet Take 1 tablet by mouth once daily. isosorbide mononitrate ER (IMDUR) 30 mg 24 hr tablet Take 0.5 tablets by mouth once daily. (Patienttaking differently: Take 30 mg by mouth once daily.) pantoprazole DR (PROTONIX) 20 mg tablet Take 2 tablets by mouth once daily. simvastatin (ZOCOR) 40 mg tablet Take 1 tablet by mouth daily at bedtime. tamsulosin (FLOMAX) 0.4 mg Take 1 capsule by mouth daily at bedtime. traZODone (DESYREL) 50 mg tablet Take 1 tablet by mouth daily at bedtime. gabapentin (NEURONTIN) 400 mg capsule Take 1 capsule by mouth two times a day for 180 days. nitroglycerin sublingual (NITROQUICK) 0.4 mg SL tablet Dissolve 1 tablet under the tongue as directed. DISSOLVE ONE(1) TABLET UNDER THE TOUNGUE NEEDED FOR CHEST PAIN,EVERY 5 MIN X3 acetaminophen 650 mg CR tablet Take 1,300 mg by mouth every 8 hours as needed. clopidogrel (PLAVIX) 75 mg tablet Take 1 tablet by mouth once daily. (Patient not taking: Reported on 04/15/2024) REVIEW OF SYSTEMS: GENERAL: No fever, night sweats, weight loss or malaise. All other reviewed and negative other than HPI. All systems reviewed on 05/23/2024 with pertinent positives and negatives as outlined in the interval history. PHYSICAL EXAMINATION: VITAL SIGNS: BP 128/75 Pulse 91 Temp (Src) 98.1 (Temporal) Wt 168 lb (76.2kg) SpO2 98% GENERAL APPEARANCE: Well appearing, in no acute distress, alert and oriented x3, well-hydrated, well nourished. HEENT: Normocephalic, no sclera icterus, external ears normal Neck: Supple, no JVD. Chest: Clear bilaterally, no wheezes, not labored. Heart: Normal S1 and S2, no abnormal sounds Abdomen: Soft, nontender, nondistended Extremities: No edema Neurological: Grossly intact Skin: Warm and dry with no rashes or ulcerations. Hematologic: no bruising or petechiae. Psychiatric: Alert and oriented x3. Emotional well-being assessment was performed. Pt denies depression, distress, and or problems with coping or adjustment. I have performed the physical exam today (05/23/2024) and have edited the note to correlate with current findings. Carlin Keenan APRN.ASSISTANT PORTFOLIO MANAGER I spent a total of 30 minutes on the date of the service which included preparing to see the patient, [id number] patient care, completing clinical documentation, and performing a medically appropriate examination. Portions of this note including HPI, ROS, impression/plan may have been copied forward as to provide important historical information essential in contributing to medical decision making. Documentation has been reviewed and edited as necessary to support clinical decision making for today's visit and to reflect my own independent evaluation of this patient. documented in this encounterThe [facility]24 [facility]24 NoteAd[facility]-2024 History of Present illness Narrative* Beryl Kuhn RN - 05/12/2024 1:25 PM EDT CDM Telephonic Outreach Provider Action/FYI Contacted for: Routine Telephonic Outreach Contact made with patient: Yes Patient identified by name and date of . Discussed care with patient Are you experiencing any new or worsening symptoms you need to talk about today? No Disease Specific Do you check your blood pressure at home? Yes, Enter readings: 119/60 something Do you have new or worsening shortness of breath with activity? No No SOB Do you feel like you are dehydrated for any reason, including not being able to eat or drink normally, or having less urine/much darker urine than normal for you? No Trying to stay hydrated Urine wnl; yellow Do you check your daily weight at home? Yes,163 lbs Have you noticed a sudden gain in weight greater than three pounds in a day or three pounds in a week? No Based on assessment coordinator, the following disposition is advised: No symptoms or symptoms present, not severe. Routed to: No Action Needed EDWARDO Education Provided this Outreach: No Beryl Kuhn RN May 12, 2024 1:49 PM Care Coordination Summary- CKD HTN No CDM concerns. wt 163 lbs , Hip surg Apr. cancelled d/t anemia. Using a cane and walker and getting around better Not feeling too bad today. Pt not monitoring his sugar content or carb intake. Encouraged to start watching. Pt would benefit from Nutrition consult. Suggested he go to Nutrition therapy for DM . Pt declined. Feels his A1C will improve since his is home and cooking again. She was in hospital and SNF. and he was eating differently. Taking Metformin as prescribed. documented in this encounterThe [facility]09-13-2024 NoteAd[facility]09-13-2024 History of Present illness Narrative* Kayla Machado MD - 05/06/2024 12:57 PM EDT HISTORY OF PRESENT ILLNESS: Angie Dutton is a 83 year old male late March 2024, his dog bit his right forearm, was squirted out per pt, blood was everywhere. Went to [facility]. Notes and labs reviewed. Hgb was down to 8.7 in late March (about 1 week after this happened). Iron was low, placed on oral iron April 19, 2024. Labs look like iron is absorbing. 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 US likely showing fatty liver. Worsened anemia due to recent blood loss, iron deficiency. ?component of renal insufficiency RECOMMENDATION/PLAN: 1. Continue oral iron 2. See back with labs in 2 weeks Written and verbal health teaching given to patient, patient verbalizes understanding and agrees with treatment plan. 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 PAST SURGICAL HISTORY Procedure Laterality Date ARTHROSCOPY KNEE DIAGNOSTIC W/WO SYNOVIAL BX SPX 2000 both COLONOSCOPY FLX DX W/COLLJ SPEC WHEN PFRMD 2001 Colonoscopy COLONOSCOPY FLX DX W/COLLJ SPEC WHEN PFRMD 07/13/2014 Colonoscopy COLONOSCOPY GEN ANES 11/26/2020 CORONARY ARTERY BYP W/VEIN & ARTERY GRAFT 3 VEIN 1981 CABG, three grafts EGD 11/26/2020 EGD 02/14/2021 EYE SURGERY HX FOOT SURGERY HX Left HEART SURGERY HX NEUROPLASTY &/TRANSPOS MEDIAN NRV CARPAL TUNNE 1998 Carpal tunnel decomp bilateral PAST SURGICAL HISTORY OF surgery on umbilicus due to bleeding PAST SURGICAL HISTORY OF 1961 umbical mass resection SIGMOIDOSCOPY FLX DX W/COLLJ SPEC BR/WA IF PFRMD 08/29/2004 Sigmoidoscopy TONSILLECTOMY HX FAMILY HISTORY Problem Relation Age of Onset Heart Mother Hypertension Mother Heart Father Heart Sister Heart Brother Stroke Sister Colon Cancer No Family History Social History Tobacco Use Smoking status: Former Current packs/day: 0.00 Types: Cigarettes Start date: 08/24/1955 Quit date: 08/24/1984 Years since quittin.7 Smokeless tobacco: Never Tobacco comments: QUIT at age 44, started at 15 Vaping Use Vaping status: Never Used Substance Use Topics Alcohol use: Not Currently Drug use: Never ALLERGIES: ALLERGIES Allergen Reactions Sulfa (Sulfonamide * Vomiting CURRENT OUTPATIENT MEDICATIONS: metoprolol succinate ER (TOPROL XL) 50 mg 24 hr tablet Take 1 tablet by mouth every afternoon. ferrous sulfate 325 mg (65 mg iron) tablet Take 1 tablet by mouth once daily. metFORMIN ER (GLUMETZA) 500 mg 24 hr tablet Take 1 tablet by mouth daily with breakfast. cyclobenzaprine (FLEXERIL) 5 mg tablet Take 1 tablet by mouth two times a day as needed. ELIQUIS 5 mg tab(s) Take 1 tablet by mouth every 12 hours. ezetimibe (ZETIA) 10 mg tablet Take 1 tablet by mouth once daily. isosorbide mononitrate ER (IMDUR) 30 mg 24 hr tablet Take 0.5 tablets by mouth once daily. pantoprazole DR (PROTONIX) 20 mg tablet Take 2 tablets by mouth once daily. simvastatin (ZOCOR) 40 mg tablet Take 1 tablet by mouth daily at bedtime. tamsulosin (FLOMAX) 0.4 mg Take 1 capsule by mouth daily at bedtime. traZODone (DESYREL) 50 mg tablet Take 1 tablet by mouth daily at bedtime. gabapentin (NEURONTIN) 400 mg capsule Take 1 capsule by mouth two times a day for 180 days. nitroglycerin sublingual (NITROQUICK) 0.4 mg SL tablet Dissolve 1 tablet under the tongue as directed. DISSOLVE ONE(1) TABLET UNDER THE TOUNGUE NEEDED FOR CHEST PAIN,EVERY 5 MIN X3 acetaminophen 650 mg CR tablet Take 1,300 mg by mouth every 8 hours as needed. clopidogrel (PLAVIX) 75 mg tablet Take 1 tablet by mouth once daily. (Patient not taking: Reported on 04/15/2024) REVIEW OF SYSTEMS: GENERAL: No fever, night sweats, weight loss or malaise. All other reviewed and negative other than HPI. PHYSICAL EXAMINATION: VITAL SIGNS: BP 155/75 Pulse 88 Temp (Src) 98 (Temporal) Ht 5' 6 (1.68m) Wt 166 lb (75.3kg) SpO2 99% BMI 26.81 kg/(m^2). GENERAL APPEARANCE: Well appearing, in no acute distress, alert and oriented x3, well-hydrated, well nourished. I spent a total of 45 minutes on the date of the service which included preparing to see the patient, [id number] patient care, completing clinical documentation, obtaining and/or reviewing separately obtained history, counseling and educating the patient/family/caregiver, ordering medications, yusef ts, or procedures, independently interpreting results (not separately reported), and communicating results to the patient/family/caregiver. Electronically Signed: Kayla Machado MD May 06, 2024 12:57 PM documented in this encounterThe [facility]09-11-2024 Telephone encounter Note * Telephone Encounter - Vicki Dunbar - 05/04/2024 1:30 PM EDT I called and spoke to Angie and he requested I speak to his . I schedule the new patient consult with her for this Thursday05/06/24 @ 1:00pm, she confirmed the date, time and location Vicki Duran [facility]09-11-2024 Miscellaneous Notes* Telephone Encounter - Vicki Dunbar - 05/04/2024 1:30 PM EDT I called and spoke to Angie and he requested I speak to his . I schedule the new patient consult with her for this Thursday05/06/24 @ 1:00pm, she confirmed the date, time and location Vicki Duran * Telephone Encounter - Vicki Dunbar - 05/04/2024 9:26 AM EDT I called and spoke to Angie and he requested we call him back later today to schedule. Vicki Duran * Telephone Encounter - Irene Kilpatrick - 05/03/2024 3:54 PM EDT Patient is being referred to Hematology. He previously saw Dr Jenkins about three years ago. DX: thrombocytopenia Insurance: [employer] Referred by: Valery Quinteros Please review and advise documented in this encounterThe [facility]09-11-2024 Telephone encounter Note * Telephone Encounter - Vicki Dunbar - 05/04/2024 9:26 AM EDT I called and spoke to Angie and he requested we call him back later today to schedule. Vicki Duran [facility]09-11-2024 Telephone encounter Note* Telephone Encounter - Vicki Dunbar - 05/04/2024 9:25 AM EDT I tried calling patient to schedule but he stated he wanted a call back later today. Please see other phone encounter for when he gets scheduled. Vicki Duran [facility]09-11-2024 Miscellaneous Notes* Telephone Encounter - Vicki Dunbar - 05/04/2024 9:25 AM EDT I tried calling patient to schedule but he stated he wanted a call back later today. Please see other phone encounter for when he gets scheduled. Vicki Duran * Telephone Encounter - Marychuy Bo MA - 05/03/2024 2:01 PM EDT Patient notified. Marychuy Bo MA May 03, 2024 2:01 PM * Telephone Encounter - Valery Quinteros APRN.CATIA - 05/03/2024 12:15 PM EDT Please let pt. Know that I am going to send pt. To hematology rather than general surgery. He was referred there in 2020 but never saw them. Platelets were low then and still. However, anemia progressed. * Telephone Encounter - Valery Quinteros APRN.CNP - 05/03/2024 11:56 AM EDT Please see if labs can run B12 and folate off yesterday's blood? * Telephone Encounter - Marychuy Bo MA - 05/02/2024 5:32 PM EDT Patient's was made aware of the results and verbalizes understanding. Please help set up consult Marychuy Bo Ma * Telephone Encounter - Marychuy Bo MA - 05/02/2024 5:31 PM EDT Please let patient know that his iron level remains low. Even with the iron replacement, he is notreally improving. I am going to refer him to general surgery for an upper and lower scope related to iron deficient anemia Sofya Neli wrote result on another open encounter. documented in this encounterThe [facility]09-10-2024 Telephone encounter Note * Telephone Encounter - Irene Kilpatrick - 05/03/2024 3:54 PM EDT Patient is being referred to Hematology. He previously saw Dr Jenkins about three years ago. DX: thrombocytopenia Insurance: [employer] Referred by: Valery Quinteros Please review and advise [facility]-10-[facility] Telephone encounter Note* Telephone Encounter - Marychuy Bo MA - 05/03/2024 2:01 PM EDT Patient notified. Marychuy Bo MA May 03, 2024 2:01 PM [facility]09-10-20[facility] Telephone encounter Note* Telephone Encounter - Valery Quinteros APRN.CNP - 05/03/2024 12:15 PM EDT Please let pt. Know that I am going to send pt. To hematology rather than general surgery. He was referred there in 2020 but never saw them. Platelets were low then and still. However, anemia progressed. [facility]09-10-20[facility] Telephone encounter Note* Telephone Encounter - Valery Quinteros APRN.CNP - 05/03/2024 11:56 AM EDT Please see if labs can run B12 and folate off yesterday's blood? [facility]09-09-2024 Telephone encounter Note* Telephone Encounter - Marychuy Bo MA - 05/02/2024 5:32 PM EDT Patient's was made aware of the results and verbalizes understanding. Please help set up consult Marychuy Bo Ma [facility]09-09-2024 Telephone encounter Note* Telephone Encounter - Marychuy Bo MA - 05/02/2024 5:31 PM EDT Please let patient know that his iron level remains low. Even with the iron replacement, he is notreally improving. I am going to refer him to general surgery for an upper and lower scope related to iron deficient anemia Sofya Quinteros wrote result on another open encounter. [facility]-09-[facility] Telephone encounter Note* Telephone Encounter - Valery Quinteros APRN.CNP - 05/02/2024 4:49 PM EDT Please let patient know that his iron level remains low. Even with the iron replacement, he is not really improving. I am going to refer him to general surgery for an upper and lower scope related toiron deficient anemia [facility]09-09-2024 Miscellaneous Notes* Telephone Encounter - Valery Quinteros APRN.CNP - 05/02/2024 4:49 PM EDT Please let patient know that his iron level remains low. Even with the iron replacement, he is not really improving. I am going to refer him to general surgery for an upper and lower scope related toiron deficient anemia * Telephone Encounter - Marychuy Bo MA - 03/24/2024 1:30 PM EDT Can we help pt get scheduled with [facility]. He was just seen 03/02/24. Needs 6 month follow up * Telephone Encounter - Valery Quinteros APRN.CNP - 03/24/2024 12:25 PM EDT Agree with plan of care for dog bite. Unfortunately, [facility] * Telephone Encounter - Lizeth Hodgson RN - 03/24/2024 8:57 AM EDT Patient reports his dog bit him on Thursday night, and put in little hole just above his wrist on right arm. Was seen in [facility] ER. ER told him the bite put a little hole in an artery. They put something on it to stop the bleed and a dressing and instructed him he could remove it the next day and take ashower the next day. Reports he saw Kevin Cowart, Thursday to f/u. Reports this morning when he woke up, noted dried black blood on his right arm, that appeared as coming from the original injury and cleaned it up. Asking if he can take a shower and remove the dressing. Patient denies dizziness or any other symptoms. Advised patient ok to take shower, and put new dressing on after shower. Advised if n otices bright red fresh blood from wound, and it is a lot of blood, to call the squad. Patient agreeable. Patient reports he saw a tumbler dyeing machine operator [facility] on 03-02-24. Asking if Mathematics Technician can help him get into the tumbler dyeing machine operator to comes to [facility]? 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 Please advise patient. documented in this encounterThe [facility]09-09-2024 Instructions* Patient Instructions* Valery Quinteros APRN.CNP - 05/02/2024 10:56 AM EDT 1) Check labs 2) Flu shot 3) Increase metoprolol XL to 50 mg daily 4) Follow up in 1 month for blood pressure documented in this encounterThe [facility]09-09-2024 NoteAd[facility]09-09-2024 History of Present illness Narrative* Valery Quinteros APRN.CNP - 05/02/2024 10:20 AM EDT This is a 83 year old male who presents today with: Patient presents with: Follow Up HISTORY OF PRESENT ILLNESS: Angie Dutton is a 83 year old male. Patient presents with: Follow Up States right forearm was bleeding, dog scratched an arteriole on right arm. Blood was shooting out.All over the living room. Stool card was normal. Pre-diabetes. Started on metformin. Does eat a lot of sugar. Hip surgery on hold. Right hip hurting terrible. Can barely get out of chair. Cries at night because of the pain. PAST MEDICAL HISTORY: PAST MEDICAL HISTORY 21 years ago: Acute myocardial infarction, unspecified site Comment: Myocardial Infarction No date: Allergic rhinitis, cause unspecified No date: Benign neoplasm of colon No date: Coronary atherosclerosis of unspecified type of vessel, [place] or graft No date: Diaphragmatic hernia without mention of obstruction or gangrene Comment: Hiatal hernia No date: Hypertension No date: Mixed hyperlipidemia Comment: Hyperlipidemia No date: Peptic ulcer, unspecified site, unspecified as acute or chronic, without mention of hemorrhage, perforation, or obstruction No date: Polymyalgia rheumatica (HCC) No date: Stroke (HCC) No date: 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 PAST SURGICAL HISTORY 2000: ARTHROSCOPY KNEE DIAGNOSTIC W/WO SYNOVIAL BX SPX Comment: both 2001: COLONOSCOPY FLX DX W/COLLJ SPEC WHEN PFRMD Comment: Colonoscopy 07/13/2014: COLONOSCOPY FLX DX W/COLLJ SPEC WHEN PFRMD Comment: Colonoscopy 11/26/2020: COLONOSCOPY GEN ANES 1982: CORONARY ARTERY BYP W/VEIN & ARTERY GRAFT 3 VEIN Comment: CABG, three grafts 11/26/2020: EGD 02/14/2021: EGD No date: EYE SURGERY HX No date: FOOT SURGERY HX; Left No date: HEART SURGERY HX 1998: NEUROPLASTY &/TRANSPOS MEDIAN NRV CARPAL TUNNE Comment: Carpal tunnel decomp bilateral No date: PAST SURGICAL HISTORY OF Comment: surgery on umbilicus due to bleeding 1961: PAST SURGICAL HISTORY OF Comment: umbical mass resection 08/29/2004: SIGMOIDOSCOPY FLX DX W/COLLJ SPEC BR/WA IF PFRMD Comment: Sigmoidoscopy No date: TONSILLECTOMY HX ALLERGIES Sulfa (Sulfonamide Antibiotics) MEDICATIONS Current Outpatient Medications Medication Sig ferrous sulfate 325 mg (65 mg iron) tablet Take 1 tablet by mouth once daily. metFORMIN ER (GLUMETZA) 500 mg 24 hr tablet Take 1 tablet by mouth daily with breakfast. cyclobenzaprine (FLEXERIL) 5 mg tablet Take 1 tablet by mouth two times a day as needed. ELIQUIS 5 mg tab(s) Take 1 tablet by mouth every 12 hours. ezetimibe (ZETIA) 10 mg tablet Take 1 tablet by mouth once daily. isosorbide mononitrate ER (IMDUR) 30 mg 24 hr tablet Take 0.5 tablets by mouth once daily. metoprolol succinate ER (TOPROL XL) 50 mg 24 hr tablet Take 0.5 tablets by mouth every afternoon. pantoprazole DR (PROTONIX) 20 mg tablet Take 2 tablets by mouth once daily. simvastatin (ZOCOR) 40 mg tablet Take 1 tablet by mouth daily at bedtime. tamsulosin (FLOMAX) 0.4 mg Take 1 capsule by mouth daily at bedtime. traZODone (DESYREL) 50 mg tablet Take 1 tablet by mouth daily at bedtime. gabapentin (NEURONTIN) 400 mg capsule Take 1 capsule by mouth two times a day for 180 days. nitroglycerin sublingual (NITROQUICK) 0.4 mg SL tablet Dissolve 1 tablet under the tongue as directed. DISSOLVE ONE(1) TABLET UNDER THE TOUNGUE NEEDED FOR CHEST PAIN,EVERY 5 MIN X3 acetaminophen 650 mg CR tablet Take 1,300 mg by mouth two times a day. Uses ad needed clopidogrel (PLAVIX) 75 mg tablet Take 1 tablet by mouth once daily. (Patient not taking: Reported on 04/15/2024) No current facility-administered medications for this visit. FAMILY HISTORY Problem Relation Age of Onset Heart Mother Hypertension Mother Heart Father Heart Sister Heart Brother Stroke Sister Colon Cancer No Family History Social History Tobacco Use Smoking status: Former Current packs/day: 0.00 Types: Cigarettes Start date: [birth year]/24/1957 Quit date: 08/24/1984 Years since quittin.7 Smokeless tobacco: Never Tobacco comments: QUIT at age 44, started at 15 Vaping Use Vaping status: Never Used Substance Use Topics Alcohol use: Not Currently Drug use: Never REVIEW OF SYSTEMS GENERAL: Some weight loss when he had blood loss, a little more fatigue, no fevers/chills HEENT: Negative for frequent or significant headaches, Poor hearing, no change in vision. NECK: Negative for lumps, goiter, pain and significant neck swelling, changes in voice for 10 years RESPIRATORY: Negative for cough, no hemoptysis, no wheezing, some dyspnea or shortness of breath with exertion CARDIOVASCULAR: No chest pain, a little ankle swelling, no orthopnea, no palpitations GI: No nausea, vomiting, or diarrhea/constipation. No hematochezia/melena. No heartburn or reflux symptoms. : No history of dysuria, + frequency improved with tamsulosin, no incontinence MUSCULOSKELETAL: Terrible right hip & left shoulder joint pain or swelling, walks with a cane ENDOCRINE: Negative for cold or heat intolerance, polyuria, polydipsia and goiter NEURO: No history of headaches, syncope, paralysis, seizures or tremors MOOD: Negative for depression, anxiety, or suicidal ideation. EXAM: BP 148/70 Pulse 102 Resp 16 Wt 74.8 kg (165 lb) SpO2 99% BMI 25.46 kg/m PHYSICAL EXAM: Physical Exam Vitals reviewed. Constitutional: Appearance: Normal appearance. Cardiovascular: Rate and Rhythm: Normal rate and regular rhythm. Pulses: Normal pulses. Heart sounds: Normal heart sounds. Pulmonary: Effort: Pulmonary effort is normal. Breath sounds: Normal breath sounds. Abdominal: General: Abdomen is flat. Bowel sounds are normal. Musculoskeletal: General: Swelling present. Right lower leg: Edema present. Left lower leg: Edema present. Comments: Trace edema left leg, 1+ right leg. Walking with a cane. Right hip excruciating. Skin: General: Skin is warm and dry. Neurological: Mental Status: He is alert and oriented to person, place, and time. Psychiatric: Mood and Affect: Mood normal. Behavior: Behavior normal. LABS: CBC & iron level ASSESSMENT/PLAN: 1. Right groin pain - ICD9: 789.03, ICD10: R10.31 (primary diagnosis) - Due to right hip pain 2. Chronic right hip pain - ICD9: 719.45, 338.29, ICD10: M25.551, G89.29 Needs PARAS 3. Atherosclerosis of [place] coronary artery of [place] heart without angina pectoris - ICD9: 414.01, ICD10: I25.10 Stable - Increase metoprolol XL to 50 mg daily 4. Paroxysmal A-fib (HCC) - ICD9: 427.31, ICD10: I48.0 Stable 5. Essential hypertension, benign - ICD9: 401.1, ICD10: I10 - Uncontrolled - Recommend home blood pressure monitoring, to bring results to next visit - Encouraged sodium restriction, DASH or Mediterranean diet - Recommend regular aerobic exercise - Metoprolol XL to 50 mg daily 6. Mixed hyperlipidemia - ICD9: 272.2, ICD10: E78.2 - Controlled - Counseled on healthy diet and regular exercise 7. Hypertensive kidney disease with stage 3a chronic kidney disease (HCC) - ICD9: 403.90, 585.3, ICD10: I12.9, N18.31 - Uncontrolled - Recommend home blood pressure monitoring, to bring results to next visit - Encouraged sodium restriction, DASH or Mediterranean diet - Recommend regular aerobic exercise - eGFR: 55 Stable - Counseled on avoiding NSAIDs, adequate hydration 8. 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) - ICD9: 414.01, 413.9, ICD10: I25.118 Stable 9. Other iron deficiency anemia - ICD9: 280.8, ICD10: D50.8 Check level 10. Prediabetes - ICD9: 790.29, ICD10: R73.03 Stable on metformin Discussed treatment plan and patient voices understanding. Patient's questions answered appropriately. Medications and potential side effects were discussed and patient voices understanding. Return to the office as scheduled or as needed for worsening/no improvement. Valery Quinteros APRN.CATAI [facility] Tele[facility] Note * Telephone Encounter - Mraychuy oB MA - 04/28/2024 11:26 AM EDT Patient was made aware of the results. Patient verbalizes understanding. Marychuy Bo Ma [facility] Miscellaneous Notes* Telephone Encounter - Marychuy Bo MA - 04/28/2024 11:26 AM EDT Patient was made aware of the results. Patient verbalizes understanding. Marychuy Bo Ma * Telephone Encounter - Marychuy Bo MA - 04/28/2024 11:18 AM EDT Please let patient know the stool card was negative for blood. Pt has appt coming up on 05/02/24. documented in [facility]The [facility] Tele[facility] encounter Note * Telephone Encounter - Marychuy Bo MA - 04/28/2024 11:18 AM EDT Please let patient know the stool card was negative for blood. Pt has appt coming up on 05/02/24. [facility] Telephone encounter Note* Telephone Encounter - Valery Quinteros APRN.CNP - 04/28/2024 10:08 AM EDT Please let patient know the stool card was negative for blood. [facility] Miscellaneous Notes* Telephone Encounter - Valery Quinteros APRN.CNP - 04/28/2024 10:08 AM EDT Please let patient know the stool card was negative for blood. * Telephone Encounter - Jamel Saini LPN - 04/11/2024 1:22 PM EDT Patient was scheduled for in person [facility] appt at 1300 today. Patient did not check in for appt, called patient at 1315 to see if they were planning on coming. Unable to leave . No set up. Jamel Tejeda LPN documented in this encounterThe [facility] Telephone encounter Note * Telephone Encounter - Radha Zepeda RN - 04/27/2024 1:07 PM EDT Spoke with patient. Given message from provider's office. Patient verbalizes understanding. Appointment scheduled. Radha Zepeda RN [facility] Miscellaneous Notes* Telephone Encounter - Radha Zepeda RN - 04/27/2024 1:07 PM EDT Spoke with patient. Given message from provider's office. Patient verbalizes understanding. Appointment scheduled. Radha Zepeda RN * Telephone Encounter - Valery Shin LPN - 04/26/2024 9:39 AM EDT No answer, no voicemail set up, will need to try at another time. * Telephone Encounter - Todd Seth MD - 04/26/2024 9:33 AM EDT Sound like he needs to come in and discuss with one of us. * Telephone Encounter - Tg Slater LPN - 04/26/2024 9:10 AM EDT Pt was scheduled for hip replacement surgery 04/28/24. Pt states he received a call that his surgery was canceled d/t pt being diabetic & iron deficient. Pt has not started metformin that was called in 04/22/24, he didn't recall the telephone call. He was reminded that med was sent to pharmacy & to start it right away. Pt states he is taking iron as directed. Pt is upset that surgery was canceled as he is having a great deal of pain. Asking what he can do to get it rescheduled? Asking if he can get an iron infusion or something? Please advise. Tg Slater LPN documented in [facility]The [facility] Telephone encounter Note * Telephone Encounter - Valery Shin LPN - 04/26/2024 9:39 AM EDT No answer, no voicemail set up, will need to try at another time. [facility] Note* Telephone Encounter - Todd Seth MD - 04/26/2024 9:33 AM EDT Sound like he needs to come in and discuss with one of us. [facility] Tele[facility] Note* Telephone Encounter - Tg Slater LPN - 04/26/2024 9:10 AM EDT Pt was scheduled for hip replacement surgery 04/28/24. Pt states he received a call that his surgery was canceled d/t pt being diabetic & iron deficient. Pt has not started metformin that was called in 04/22/24, he didn't recall the telephone call. He was reminded that med was sent to pharmacy & to start it right away. Pt states he is taking iron as directed. Pt is upset that surgery was canceled as he is having a great deal of pain. Asking what he can do to get it rescheduled? Asking if he can get an iron infusion or something? Please advise. Tg Slater LPN [facility] Telephone encounter Note* Telephone Encounter - Valery Quinteros APRN.CATIA - 04/19/2024 12:32 PM EDT Kidney function has improved slightly but anemia has significantly worsened. He is iron deficient. Please obtain a stool card to check for blood loss. If it is positive, we will have to refer him to general surgery for a scope first. Also, start on ferrous sulfate 325 mg daily with some orange juice. He is a new diabetic. Please start on metformin ER 500 mg daily with supper. [facility] Miscellaneous Notes* Telephone Encounter - Valery Quinteros APRN.CNP - 04/19/2024 12:32 PM EDT Kidney function has improved slightly but anemia has significantly worsened. He is iron deficient. Please obtain a stool card to check for blood loss. If it is positive, we will have to refer him to general surgery for a scope first. Also, start on ferrous sulfate 325 mg daily with some orange juice. He is a new diabetic. Please start on metformin ER 500 mg daily with supper. * Telephone Encounter - Anay Mojica RN - 04/19/2024 10:09 AM EDT Pt called in asking about lab results provider had placed. Pt states he is supposed to be having surgery done soon. Please call and advise. Ferritin 30.3 - 565.7 ng/mL 19.0 Low 15.6 Low Iron 41 - 186 ug/dL 30 Low 74 94 62 70 TIBC 232 - 386 ug/dL 400 High 267 342 423 High 392 High Transferrin Saturation 15.0 - 57.0 % 7.5 Low 28 R 27 R 15 R 18 R WBC 3.70 - 11.00 k/uL 7.03 4.08 4.89 4.62 7.61 6.34 RBC 4.20 - 6.00 m/uL 3.85 Low 4.22 4.60 4.87 5.02 4.86 Hemoglobin 13.0 - 17.0 g/dL 9.4 Low 11.9 Low 13.3 14.1 14.4 14.1 Hematocrit 39.0 - 51.0 % 31.0 Low 37.9 Low 41.6 45.6 44.5 43.1 MCV 80.0 - 100.0 fL 80.5 89.8 90.4 93.6 88.6 88.7 MCH 26.0 - 34.0 pg 24.4 Low 28.2 28.9 29.0 28.7 29.0 MCHC 30.5 - 36.0 g/dL 30.3 Low 31.4 32.0 30.9 32.4 32.7 RDW-CV 11.5 - 15.0 % 14.1 13.5 13.8 14.9 14.0 14.2 Platelet Count 150 - 400 k/uL 106 Low 96 Low CM 78 Low CM 89 Low CM 81 Low CM 80 Low CM 94 Low CM AST 14 - 40 U/L 13 Low 19 15 19 19 ALT 10 - 54 U/L 6 Low 9 Low 9 Low 12 10 Glucose 74 - 99 mg/dL 105 High 111 High CM 99 CM 97 CM 104 High Creatinine 0.73 - 1.22 mg/dL 1.28 High 1.42 High 1.45 High 1.36 High 1.39 High 1.38 High 1.42 High Hemoglobin A1C 4.3 - 5.6 % 6.1 High 5.7 High CM 5.6 CM 5.8 High CM 5.7 High CM 5.7 High CM 5. documented in this encounterThe [facility]08-[facility] Telephone encounter Note * Telephone Encounter - Anay Mojica RN - 04/19/2024 10:09 AM EDT Pt called in asking about lab results provider had placed. Pt states he is supposed to be having surgery done soon. Please call and advise. Ferritin 30.3 - 565.7 ng/mL 19.0 Low 15.6 Low Iron 41 - 186 ug/dL 30 Low 74 94 62 70 TIBC 232 - 386 ug/dL 400 High 267 342 423 High 392 High Transferrin Saturation 15.0 - 57.0 % 7.5 Low 28 R 27 R 15 R 18 R WBC 3.70 - 11.00 k/uL 7.03 4.08 4.89 4.62 7.61 6.34 RBC 4.20 - 6.00 m/uL 3.85 Low 4.22 4.60 4.87 5.02 4.86 Hemoglobin 13.0 - 17.0 g/dL 9.4 Low 11.9 Low 13.3 14.1 14.4 14.1 Hematocrit 39.0 - 51.0 % 31.0 Low 37.9 Low 41.6 45.6 44.5 43.1 MCV 80.0 - 100.0 fL 80.5 89.8 90.4 93.6 88.6 88.7 MCH 26.0 - 34.0 pg 24.4 Low 28.2 28.9 29.0 28.7 29.0 MCHC 30.5 - 36.0 g/dL 30.3 Low 31.4 32.0 30.9 32.4 32.7 RDW-CV 11.5 - 15.0 % 14.1 13.5 13.8 14.9 14.0 14.2 Platelet Count 150 - 400 k/uL 106 Low 96 Low CM 78 Low CM 89 Low CM 81 Low CM 80 Low CM 94 Low CM AST 14 - 40 U/L 13 Low 19 15 19 19 ALT 10 - 54 U/L 6 Low 9 Low 9 Low 12 10 Glucose 74 - 99 mg/dL 105 High 111 High CM 99 CM 97 CM 104 High Creatinine 0.73 - 1.22 mg/dL 1.28 High 1.42 High 1.45 High 1.36 High 1.39 High 1.38 High 1.42 High Hemoglobin A1C 4.3 - 5.6 % 6.1 High 5.7 High CM 5.6 CM 5.8 High CM 5.7 High CM 5.7 High CM 5. T [facility] Telephone encounter Note* Telephone Encounter - Almas Melgar RN - 04/19/2024 9:36 AM EDT Called patient about surgery being cancelled d/t labs. He will f/u with his PCP and be in touch with this office to reschedule surgery. T [facility] Work Phone: [phone]) 846-607808-27-2024 Miscellaneous Notes* Telephone Encounter - Almas Melgar RN - 04/19/2024 9:36 AM EDT Called patient about surgery being cancelled d/t labs. He will f/u with his PCP and be in touch with this office to reschedule surgery. * Telephone Encounter - Tray Edwards RN - 04/19/2024 8:[address] Alonzo No he needs to have his surgery postponed until this can be worked up Almas can you cancel or move his surgery and let the patient t know Thanks Stephen * Telephone Encounter - Anne Alexander APRN.CNP - 04/18/2024 3:23 PM EDT FYI, pt is scheduled for PARAS with you at [place] on 04/28/2024. Pt H/H . Unlikely to be able to get him in for IV venofer prior to proposed date. Recently had an occult bld sample negative recently but hx of having positive heme. In October, and GI evaluation including colonoscopy, EGD and capsule endoscopy showed no pathology. Would you like to proceed? documented in this encounterThe [facility]08-[facility]24 Telephone encounter Note * Telephone Encounter - Tray Edwards RN - 04/19/2024 8:[address] Alonzo No he needs to have his surgery postponed until this can be worked up Almas can you cancel or move his surgery and let the patient t know Thanks Stephen [facility] Telephone encounter Note* Telephone Encounter - Anne Alexander APRN.CNP - 04/18/2024 3:23 PM EDT daly PINO is scheduled for PARAS with you at [place] on 04/28/2024. Pt H/H 9.. Unlikely to be able to get him in for IV venofer prior to proposed date. Recently had an occult bld sample negative recently but hx of having positive heme. In October, and GI evaluation including colonoscopy, EGD and capsule endoscopy showed no pathology. Would you like to proceed? [facility] History and physical note* Anne Alexander APRN.CNP - 04/15/2024 8:57 AM EDT Images from the original note were not included. [facility] HISTORY AND PHYSICAL EXAMINATION SERVICE DATE: 04/15/2024 SERVICE TIME: 9:58 AM PRIMARY CARE PHYSICIAN: Lizeth Saini PA-C Assessment Patient has the following medical conditions which may affect tereza-operative course: 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) Assessment: s/p cardiac stents, 1985 and 2007, was taking Plavix until recently was told to stop after last OV below when cardiology was questioned about AC instructions. Received cardiac optimization below. TE 04/05/2024 Request sent to me to discuss recommendations for holding Plavix prior to upcoming hip surgery. Reviewed recent OV with Dr. Hernandez. Patient is s/p CABG in 1985 and stents in 2007 for which he has been managed on Plavix. He has a recent history of PAF which he is on Eliquis for OAC. He has been cleared to hold Eliquis for 3 days prior to planned hip surgery. Current trends show that patient with CAD who have been stable with no recent intervention or PCI can be managed on Eliquis alone to help decrease bleeding risk on dual therapy. Please call the patient and ask him to stop plavix for now and continue Eliquis. Hold Eliquis as recommended prior to surgery and resume at the discretion of the surgeon. Brittani Mace APRN.ASSISTANT PORTFOLIO MANAGER 03/02/2024 Dr. Tavares ASSESSMENT/PLAN: Preoperative cardiovascular exam Patient notes possible need for right hip surgery He will be an intermediate to higher cardiac risk He has no cardiac symptoms and remains in sinus He may hold Eliquis for 2-3 days prior to surgery and restart after safe from a surgical standpoint. Paroxysmal atrial fibrillation - sinus with frequent PACs on today's ekg - found to have AF RVR at admission to [facility] 09/2023 - converted to SR on admission - echo on admission normal EF, grade II DD, moderate LAE. - started on Toprol 50 mg daily and Eliquis 5 mg BID - regular on exam today - Toprol decreased to 25 mg daily last visit as he was concerned with low BP readings (increased to50 mg with RVR in [facility]) - O 10/2023 no AF noted but had pSVT Coronary artery disease involving [place] coronary artery of [place] heart without angina pectoris - s/p CABGx 3 1985, PCI stent - 2007 - plavix 75 mg daily, Toprol 50 daily, simvastatin 40 mg and Imdur 15 mg daily - Continue secondary prevention Essential hypertension, benign - optimal control today >> patient voiced concerns about lower BP since starting Toprol for his AF. - Encouraged dietary sodium restriction/DASH diet - Recommended regular aerobic exercise. - Reviewed risks of HTN and principles of treatment - Goal of BP <130/80 Mixed hyperlipidemia - optimal control with LDL 59, 03/2023 and goal at < 70 - Continue current medication (simvastatin 40 mg, ezetimibe 10 mg) TIA (transient ischemic attack) - ? Related to undiagnosed AF - on Eliquis, Plavix and BB now We had a very long discussion reviewing the pathophysiology, testing and treatment options for Atrial Fibrillation. I discussed the risk of a thromboembolic event from this rhythm in reference to [id number] scoring and the risk of anticoagulation if needed according to the HAS-BLED scoring and oth er contributing risks. We discussed some of the causative factors often leading to AF including, but not limited to, hypertension, thyroid, sleep apnea and possible CAD. We will follow him periodically to help with secondary prevention watch for any recurrence paroxysmal atrial fibrillation. He should continue anticoagulation and beta-bryan. He is an intermediate to higher cardiac risk for surgery and may hold Eliquis 48 to 72 hrs preop. Thank you for allowing me the privilege of participating in the care of your patient. Please do nothesitate to contact me if there are any questions. Jeanie Tavares, DO, FACC, FCCP, FACOI Paroxysmal A-fib (HCC) Assessment: controlled on rx, daily Eliquis, instructions received to hold 3 days prior to surgery MIXED HYPERLIPIDEMIA Assessment: c/w statin Hypertensive kidney disease with stage 3a chronic kidney disease (HCC) Assessment: controlled on rx Last 14 BP Last 14 Encounter BP Readings: Date: BP: 04/15/2024 132/68 03/21/2024 122/56 03/02/2024 128/60 02/23/2024 140/80 01/07/2024 132/80 10/29/2023 139/79 10/20/2023 122/74 10/13/2023 136/68 10/08/2023 128/70 09/30/2023 140/76 09/24/2023 129/73 09/07/2023 140/78 08/11/2023 147/69 07/03/2023 126/74 Creatinine Date Value Ref Range Status 01/11/2024 1.42 (H) 0.73 - 1.22 mg/dL Final 10/08/2023 1.45 (H) 0.73 - 1.22 mg/dL Final 04/02/2023 1.36 (H) 0.73 - 1.22 mg/dL Final 01/08/2023 1.39 (H) 0.73 - 1.22 mg/dL Final INSOMNIA NOS Assessment: rx as needed Esophageal reflux Assessment: controlled on rx Chronic ITP (idiopathic thrombocytopenia) ([facility]) Assessment: hx, chronic, initial hematology consult 2020, PCP has been monitoring since Platelet Count Date Value Ref Range Status 04/15/2024 106 (L) 150 - 400 k/uL Final Iron deficiency anemia Assessment: hx, iron studies add to labs Hemoglobin (g/dL) Date Value 04/15/2024 9.4 08/31/2021 14.8 Hematocrit (%) Date Value 04/15/2024 31.0 08/31/2021 46.9 WBC (k/uL) Date Value 04/15/2024 7.03 08/31/2021 5.45 IMPAIRED FASTING GLUCOSE Assessment: diet controlled Hemoglobin A1C (%) Date Value 04/02/2023 5.7 04/16/2021 5.7 Bilateral carotid artery stenosis Assessment: right 20-39%, left 60-79% Carotid US 08/2023, PCP monitoring, TIA (transient ischemic attack) Assessment: hx, likely related unknown pAfib at the time of TIA Lainez Activity Status Index: METS: Walk indoors, such as around the house (1.75 METs) Do light work around the house, such as dusting or washing dishes (2.70 METs) Take care of self; that is eating, dressing, bathing, using the toilet (2.75 METs) DASI Score: 7.2 (With cane, slow antalgic gait) Patient denies any chest pain or undue shortness of breath with the above physical activity. Clinical Frailty Scale: 4. Apparently vulnerable STOP-Bang Score: Patient over 50 years old Male patient Denies snoring loudly Denies feeling tired, fatigued, or sleepy during the daytime Has not been observed to stop breathing or choking/gasping during sleep Denies having high blood pressure BMI less than or equal to 35 kg/m^2 Does not have a large neck STOP-Bang Score: 2 Malnutrition Screening Tool: Recent weight loss without trying: No Eating poorly due to decreased appetite: No Weight Loss Score: 0 Appetite Score: 0 MST Score: 0 [id number] Score: Age: >=75 Sex: male CHF history: No Hypertension history: Yes Stroke/TIA/thromboembolism history: Yes Vascular disease history: Yes Diabetes history: No [id number] Score: 6 ARISCAT Score: Age: >80 Preoperative SpO2: >=96% Respiratory infection in the last month: No Preoperative anemia: Yes Surgical incision: peripheral Duration of surgery: 2-3 hrs Emergency procedure: No ARISCAT Score: 43 ANESTHESIA FINDINGS: Intubation History: No history of difficult intubation Significant Anesthesia Considerations: none Airway History: No history of difficult airway I - PHYSICAL EVALUATION AIRWAY Patient intubated: No. Tracheostomy tube not present Mallampati: III. TM distance: >3 FB. Neck ROM: full ROM without neurological symptoms. Mouth opening: adequate. Short neck: no. Thick neck: no Morin present: no Lip Bite Test: I Microretrognathia/Micronagthia/Recessed Chin: No DENTAL Dental findings: teeth intact. Dentures, upper: partial. II - ANESTHESIA PLAN Anesthetic Plan: other Beta Bryan Monitoring Plan Post Procedure Analgesic Plan Informed Consent Anesthetic risks, benefits, alternatives, personnel and consent discussed: yes. Patient / Responsible Constitution Party agrees to proceed: yes Prepared for Surgery: optimally prepared for surgery, pending [see comment]. Labs CONSULTS: Patient does not require consults for optimization at this time Planned Anesthetic: other anesthesia choice The Following Tests/Procedures Have Been Initiated: Orders Placed This Encounter Ferritin Standing Status: Future Number of Occurrences: 1 Standing Expiration Date: 07/15/2024 Scheduling Instructions: In preparation for this test, do not take multivitamins or dietary supplements containing biotin (vitamin B7) for at least 12 hours. Biotin is commonly found in hair, skin, and nail supplements and multivitamins. Tell your doctor if you take supplements containing biotin as part of your medication history. Iron and TIBC Standing Status: Future Number of Occurrences: 1 Standing Expiration Date: 07/15/2024 REASON FOR VISIT: Angie Dutton is a 83 year old male who is scheduled for Procedure(s): ARTHROPLASTY ACETABULAR AND PROX FEM PROSTH TOTAL HIP ANTERIOR APPROACH W/W/O AUTOGRAFT [place] on Back up (Right) at the request of Dr. Ryan Alonzo, Ryan Starr MD for consultation. My final recommendation will be communicated back to the requesting physician by wayof shared medical record or letter. Subjective The patient has the following: COVID-19 Immunization Status Overdue - Covid-19 Vaccine ( - season) Overdue since 09/29/2023 05/29/2023 Imm Admin: COVID-19 vaccine, age 12+ yr, season (PFIZER-BIONTECH) 05/24/2022 Imm Admin: COVID-19 vaccine, age 12+ yr, bivalent (PFIZER-BIONTECH) 08/02/2021 Imm Admin: COVID-19 original vaccine, age 12+ yr, monovalent (PFIZER- BIONTECH - PURPLE TOP) Only the first 3 history entries have been loaded, but more history exists. CHIEF COMPLAINT: Pre-op exam HPI: Angie Dutton is a 83 year old seen for PAC due to scheduled above surgery because of OA right hip. 02/29/2024, Dr. Ryan Alonzo HPI: Angie Dutton is a 83 year old patient here for evaluation and management of Right hip pain. 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 The problem began limiting activities 1-3 years ago. Currently the pain in the joint is rated at 8 out of 10 with minimal activity. The pain is chronic and is located in the right groin, outer aspect of the hip, and thigh. The pain is described as sharp and shooting. Relieving factors include no relieving factors. There is no specific incident that brought about this pain. Patient has no additional complaints. Total Joint Arthroplasty: Risk Calculator Angie Dutton has a 27.19% chance of NOT returning home at discharge for a Primary total Hip replacement. Angie's estimated Length of Stay is 2 days (Inpatient candidate). Angie's 30 day chance of readmission is 8.95%. Readmission Probability 8.95 % (within 30 days following surgery) Estimated LOS 2 days Discharge Disposition Probability D/C to Home 72.81 % D/C to SNF 27.19 % These calculations are based on the following factors: - 83 years of age - sex is male - BMI of 25.46 kg/m2 - [facility] score of 0 - 0 hospitalizations in the last 12 months - history of heart disease - no history of diabetes - no history of COPD - history of anemia - preoperative ambulation: independent community distances - 2 step(s) to enter home - bed location is on the first floor - bath location is on the first floor - caregiver is consistent - home is not more than 150 miles away - PROMIS-10 Mental Health T score not available - Marital status: PREVIOUS TREATMENTS: Medical: OTC NSAIDS for 3 Months or Greater (Tylenol / acetaminophen), Steroid Injections Right Hip REVIEW OF SYSTEMS: General: No weight loss, malaise or fevers. Neurological: +insomnia, on rx Positive for: TIA. Respiratory: +former smoker Negative for: asthma, COPD, pneumonia within 6 weeks, tobacco use, URI < 2 weeks and obstructivesleep apnea. Cardiovascular: +carotid artery stenosis Positive for: anticoagulation therapy (Eliquis), atrial fibrillation, CAD, hyperlipidemia and hypertension Patient's last office visit The following tests and/or procedures were performed: cardiac stents. Negative for: abdominal aortic aneurysm, AICD/PPM, angina, arrhythmia, chest pain, CHF, congenital heart defect, DVT/PE, recent SC, murmur/valvular heart disease, PVD, open heart surgery and valve surgery. GI: Positive for: dysphagia and GERD (on rx) Negative for: abdominal pain, hepatitis, irritable bowel syndrome, inflammatory bowel disease, liver disease, nausea, pancreatitis, history of polyps, vomiting and ETOH >2 drinks/day. : Positive for: BPH (on rx) and renal failure. Patient's renal failure is chronic. Negative for: urinary incontinence, nephrolithiasis and urinary tract infection. Endocrine: No history of diabetes. Has not taken steroids within the past 30 days. No history of endocrinological symptoms or problems. Hematology: Positive for: bruises/bleeds easily and chronic anti-coagulation/platelet meds. Patient is on anti-coagulation/platelet medication(s): DOAC. Negative for: anemia and transfusion of at least 4 units within 72 hours prior to surgery. Oncology: No history of CA metastasis, chemo within 30 days, or radiotherapy within 90 days. No history of oncological symptoms or problems. Psych: Positive for: depression. Musculoskeletal: See HPI. Skin: Negative for lesions, rash and itching. PAST MEDICAL HISTORY 21 years ago: Acute myocardial infarction, unspecified site Comment: Myocardial Infarction No date: Allergic rhinitis, cause unspecified No date: Benign neoplasm of colon No date: Coronary atherosclerosis of unspecified type of vessel, [place] or graft No date: Diaphragmatic hernia without mention of obstruction or gangrene Comment: Hiatal hernia No date: Hypertension No date: Mixed hyperlipidemia Comment: Hyperlipidemia No date: Peptic ulcer, unspecified site, unspecified as acute or chronic, without mention of hemorrhage, perforation, or obstruction No date: Polymyalgia rheumatica (HCC) No date: Stroke (HCC) No date: 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 PAST SURGICAL HISTORY 2000: ARTHROSCOPY KNEE DIAGNOSTIC W/WO SYNOVIAL BX SPX Comment: both 2001: COLONOSCOPY FLX DX W/COLLJ SPEC WHEN PFRMD Comment: Colonoscopy 07/13/2014: COLONOSCOPY FLX DX W/COLLJ SPEC WHEN PFRMD Comment: Colonoscopy 11/26/2020: COLONOSCOPY GEN ANES 1981: CORONARY ARTERY BYP W/VEIN & ARTERY GRAFT 3 VEIN Comment: CABG, three grafts 11/26/2020: EGD 02/14/2021: EGD No date: EYE SURGERY HX No date: FOOT SURGERY HX; Left No date: HEART SURGERY HX 1998: NEUROPLASTY &/TRANSPOS MEDIAN NRV CARPAL TUNNE Comment: Carpal tunnel decomp bilateral No date: PAST SURGICAL HISTORY OF Comment: surgery on umbilicus due to bleeding 1961: PAST SURGICAL HISTORY OF Comment: umbical mass resection 08/29/2004: SIGMOIDOSCOPY FLX DX W/COLLJ SPEC BR/WA IF PFRMD Comment: Sigmoidoscopy No date: TONSILLECTOMY HX FAMILY HISTORY Problem Relation Age of Onset Heart Mother Hypertension Mother Heart Father Heart Sister Heart Brother Stroke Sister Colon Cancer No Family History Social History Tobacco Use Smoking status: Former Current packs/day: 0.00 Types: Cigarettes Start date: 08/24/1955 Quit date: 08/24/1984 Years since quittin.6 Smokeless tobacco: Never Tobacco comments: QUIT at age 44, started at 15 Vaping Use Vaping status: Never Used Substance Use Topics Alcohol use: Not Currently Drug use: Never Prior to Admission medications as of 04/15/24 0907 Medication Sig Last Dose Taking cyclobenzaprine (FLEXERIL) 5 mg tablet Take 1 tablet by mouth two times a day as needed. Taking Yes ELIQUIS 5 mg tab(s) Take 1 tablet by mouth every 12 hours. Taking Yes ezetimibe (ZETIA) 10 mg tablet Take 1 tablet by mouth once daily. Taking Yes isosorbide mononitrate ER (IMDUR) 30 mg 24 hr tablet Take 0.5 tablets by mouth once daily. Taking Yes metoprolol succinate ER (TOPROL XL) 50 mg 24 hr tablet Take 0.5 tablets by mouth every afternoon. Taking Yes pantoprazole DR (PROTONIX) 20 mg tablet Take 2 tablets by mouth once daily. Taking Yes simvastatin (ZOCOR) 40 mg tablet Take 1 tablet by mouth daily at bedtime. Taking Yes tamsulosin (FLOMAX) 0.4 mg Take 1 capsule by mouth daily at bedtime. Taking Yes traZODone (DESYREL) 50 mg tablet Take 1 tablet by mouth daily at bedtime. Taking Yes gabapentin (NEURONTIN) 400 mg capsule Take 1 capsule by mouth two times a day for 180 days. Taking Yes nitroglycerin sublingual (NITROQUICK) 0.4 mg SL tablet Dissolve 1 tablet under the tongue as directed. DISSOLVE ONE(1) TABLET UNDER THE TOUNGUE NEEDED FOR CHEST PAIN,EVERY 5 MIN X3 Taking Yes acetaminophen 650 mg CR tablet Take 1,300 mg by mouth two times a day. Uses ad needed Taking Yes clopidogrel (PLAVIX) 75 mg tablet Take 1 tablet by mouth once daily. Patient not taking: Reported on 04/15/2024 Not Taking Medication Comments documented by Lizeth Saini PA-C on 01/17/2021 at 1108. Pantoprazole 20mg 2 tabs daily ALLERGIES Allergen Reactions Sulfa (Sulfonamide * Vomiting Objective PHYSICAL EXAM: General: alert and oriented (x3) and healthy appearance. Pertinent negatives noted - not distressed. Slow antalgic gait. Skin: normal color, no rash or lesions. HEENT: EOM intact and pupils equal round. Pertinent negatives noted - no carotid bruit. Cardiovascular: regular rate and rhythm, normal S1 and S2, no rub, murmurs, or gallop. Respiratory: normal breath sounds, no wheezes or crackles. No chest wall deformity or tenderness. Abdomen: soft. Pertinent negatives noted - not tender. Extremities: no deformity, no edema or tenderness, no joint swelling or clubbing. Neurological: normal cognition and motor skills. Gait normal. No weakness or sensory deficit. PAIN ASSESSMENT: Pain Pain Level: 10 (at night) Pain Location: Hip-Right Description: Radiating, Sharp Duration Amount of Time: 4 Duration Units: Months Frequency: Intermittent (hurts at night) Intervention/Comfort measure: Massage VITALS: BP 132/68 Pulse 83 Temp (Src) 97.9 (Temporal) Resp 14 Ht 5' 7.5 (1.72m) Wt 166 lb (75.3kg) SpO2 98% BMI 25.60 kg/(m^2). Diagnostic tests reviewed for today's visit: Lab Value Units Date High Low HB 9.4 g/dL 04/15/2024 17.0 13.0 HCT 31.0 % 04/15/2024 51.0 39.0 WBC 7.03 k/uL 04/15/2024 11.00 3.70 PLT 106 k/uL 04/15/2024 400 150 NA 138 mmol/L 01/11/2024 144 136 K 4.5 mmol/L 01/11/2024 5.1 3.7 GLUC 111 mg/dL 01/11/2024 99 74 BUN 15 mg/dL 01/11/2024 24 9 CREAT 1.42 mg/dL 01/11/2024 1.22 0.73 PTSEC No results within date range. INR No results within date range. APTT No results within date range. ALT No results within date range. AST No results within date range. TBILI No results within date range. TSH No results within date range. Lab Value Units Date High Low HCGQT No results within date range. UHCG No results within date range. HCG, BODY* No results within date range. Lab Value Units Date High Low ABORHD No results within date range. ABSCREEN No results within date range. Hemoglobin A1C (%) Date Value 04/02/2023 5.7 07/24/2022 5.6 02/03/2022 5.8 04/16/2021 5.7 01/30/2020 5.7 08/05/2017 5.3 HBA1C, Dinorah (%) Date Value 02/28/2008 5.8 Recent Results (from the past 8760 hour(s)) ECG COMPLETE Collection Time: 03/02/24 10:09 AM Result Value Ventricular Rate 84 Atrial Rate 84 P-R Interval 166 QRS Duration 122 QT Interval 398 QTC Calculation (Bazett) 470 Calculated P [place] 46 Calculated R [place] -86 Calculated T [place] 20 Impression WARNING: INTERPRETATION OF THIS ECG, ALTHOUGH ATTEMPTED, MAY BE ADVERSELY AFFECTED BY DATA QUALITY SINUS RHYTHM WITH PREMATURE ATRIAL COMPLEXES LEFT AXIS DEVIATION COMPLETE RIGHT BUNDLE BRANCH BLOCK ABNORMAL ECG Confirmed by JEANIE TAVARES D.O. ([id number]) on 03/03/2024 10:55:29 AM No results found for this or any previous visit (from the past 34061 hour(s)). Instructions Given to Patient: Instructions located in the after visit summary. Patient given verbal and written preop instructions and voices comprehension and compliance. SIGNATURE: Anne Alexander APRN.CNP PATIENT NAME: Angie Dutton DATE: April 15, 2024 TIME: 8:57 AM PAGER/CONTACT #: [place] [id number] History and physical note* Anne Alexander, PROTOZOOLOGIST.ASSISTANT PORTFOLIO MANAGER - 04/15/2024 8:57 AM EDT Images from the original note were not included. [facility] HISTORY AND PHYSICAL EXAMINATION SERVICE DATE: 04/15/2024 SERVICE TIME: 9:58 AM PRIMARY CARE PHYSICIAN: Lizeth Saini PA-C Assessment Patient has the following medical conditions which may affect tereza-operative course: 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) Assessment: s/p cardiac stents, 1985 and 2007, was taking Plavix until recently was told to stop after last OV below when cardiology was questioned about AC instructions. Received cardiac optimization below. TE 04/05/2024 Request sent to me to discuss recommendations for holding Plavix prior to upcoming hip surgery. Reviewed recent OV with Dr. Hernandez. Patient is s/p CABG in 1985 and stents in 2007 for which he has been managed on Plavix. He has a recent history of PAF which he is on Eliquis for OAC. He has been cleared to hold Eliquis for 3 days prior to planned hip surgery. Current trends show that patient with CAD who have been stable with no recent intervention or PCI can be managed on Eliquis alone to help decrease bleeding risk on dual therapy. Please call the patient and ask him to stop plavix for now and continue Eliquis. Hold Eliquis as recommended prior to surgery and resume at the discretion of the surgeon. Brittani Mace APRN.ASSISTANT PORTFOLIO MANAGER 03/02/2024 Dr. Tavares ASSESSMENT/PLAN: Preoperative cardiovascular exam Patient notes possible need for right hip surgery He will be an intermediate to higher cardiac risk He has no cardiac symptoms and remains in sinus He may hold Eliquis for 2-3 days prior to surgery and restart after safe from a surgical standpoint. Paroxysmal atrial fibrillation - sinus with frequent PACs on today's ekg - found to have AF RVR at admission to [facility] 09/2023 - converted to SR on admission - echo on admission normal EF, grade II DD, moderate LAE. - started on Toprol 50 mg daily and Eliquis 5 mg BID - regular on exam today - Toprol decreased to 25 mg daily last visit as he was concerned with low BP readings (increased to50 mg with RVR in [facility]) - [facility] 10/2023 no AF noted but had pSVT Coronary artery disease involving [place] coronary artery of [place] heart without angina pectoris - s/p CABGx 3 1985, PCI stent - 2007 - plavix 75 mg daily, Toprol 50 daily, simvastatin 40 mg and Imdur 15 mg daily - Continue secondary prevention Essential hypertension, benign - optimal control today >> patient voiced concerns about lower BP since starting Toprol for his AF. - Encouraged dietary sodium restriction/DASH diet - Recommended regular aerobic exercise. - Reviewed risks of HTN and principles of treatment - Goal of BP <130/80 Mixed hyperlipidemia - optimal control with LDL 59, 03/2023 and goal at < 70 - Continue current medication (simvastatin 40 mg, ezetimibe 10 mg) TIA (transient ischemic attack) - ? Related to undiagnosed AF - on Eliquis, Plavix and BB now We had a very long discussion reviewing the pathophysiology, testing and treatment options for Atrial Fibrillation. I discussed the risk of a thromboembolic event from this rhythm in reference to [id number] scoring and the risk of anticoagulation if needed according to the HAS-BLED scoring and oth er contributing risks. We discussed some of the causative factors often leading to AF including, but not limited to, hypertension, thyroid, sleep apnea and possible CAD. We will follow him periodically to help with secondary prevention watch for any recurrence paroxysmal atrial fibrillation. He should continue anticoagulation and beta-bryan. He is an intermediate to higher cardiac risk for surgery and may hold Eliquis 48 to 72 hrs preop. Thank you for allowing me the privilege of participating in the care of your patient. Please do nothesitate to contact me if there are any questions. Jeanie Tavares, DO, FACC, FCCP, FACOI Paroxysmal A-fib (HCC) Assessment: controlled on rx, daily Eliquis, instructions received to hold 3 days prior to surgery MIXED HYPERLIPIDEMIA Assessment: c/w statin Hypertensive kidney disease with stage 3a chronic kidney disease (HCC) Assessment: controlled on rx Last 14 BP Last 14 Encounter BP Readings: Date: BP: 04/15/2024 132/68 03/21/2024 122/56 03/02/2024 128/60 02/23/2024 140/80 01/07/2024 132/80 10/29/2023 139/79 10/20/2023 122/74 10/13/2023 136/68 10/08/2023 128/70 09/30/2023 140/76 09/24/2023 129/73 09/07/2023 140/78 08/11/2023 147/69 07/03/2023 126/74 Creatinine Date Value Ref Range Status 01/11/2024 1.42 (H) 0.73 - 1.22 mg/dL Final 10/08/2023 1.45 (H) 0.73 - 1.22 mg/dL Final 04/02/2023 1.36 (H) 0.73 - 1.22 mg/dL Final 01/08/2023 1.39 (H) 0.73 - 1.22 mg/dL Final INSOMNIA NOS Assessment: rx as needed Esophageal reflux Assessment: controlled on rx Chronic ITP (idiopathic thrombocytopenia) (HCC) Assessment: hx, chronic, initial hematology consult 2020, PCP has been monitoring since Platelet Count Date Value Ref Range Status 04/15/2024 106 (L) 150 - 400 k/uL Final Iron deficiency anemia Assessment: hx, iron studies add to labs Hemoglobin (g/dL) Date Value 04/15/2024 9.4 08/31/2021 14.8 Hematocrit (%) Date Value 04/15/2024 31.0 08/31/2021 46.9 WBC (k/uL) Date Value 04/15/2024 7.03 08/31/2021 5.45 IMPAIRED FASTING GLUCOSE Assessment: diet controlled Hemoglobin A1C (%) Date Value 04/02/2023 5.7 04/16/2021 5.7 Bilateral carotid artery stenosis Assessment: right 20-39%, left 60-79% Carotid US 08/2023, PCP monitoring, TIA (transient ischemic attack) Assessment: hx, likely related unknown pAfib at the time of TIA [place] Activity Status Index: METS: Walk indoors, such as around the house (1.75 METs) Do light work around the house, such as dusting or washing dishes (2.70 METs) Take care of self; that is eating, dressing, bathing, using the toilet (2.75 METs) DASI Score: 7.2 (With cane, slow antalgic gait) Patient denies any chest pain or undue shortness of breath with the above physical activity. Clinical Frailty Scale: 4. Apparently vulnerable STOP-Bang Score: Patient over 50 years old Male patient Denies snoring loudly Denies feeling tired, fatigued, or sleepy during the daytime Has not been observed to stop breathing or choking/gasping during sleep Denies having high blood pressure BMI less than or equal to 35 kg/m^2 Does not have a large neck STOP-Bang Score: 2 Malnutrition Screening Tool: Recent weight loss without trying: No Eating poorly due to decreased appetite: No Weight Loss Score: 0 Appetite Score: 0 MST Score: 0 [id number] Score: Age: >=75 Sex: male CHF history: No Hypertension history: Yes Stroke/TIA/thromboembolism history: Yes Vascular disease history: Yes Diabetes history: No [id number] Score: 6 ARISCAT Score: Age: >80 Preoperative SpO2: >=96% Respiratory infection in the last month: No Preoperative anemia: Yes Surgical incision: peripheral Duration of surgery: 2-3 hrs Emergency procedure: No ARISCAT Score: 43 ANESTHESIA FINDINGS: Intubation History: No history of difficult intubation Significant Anesthesia Considerations: none Airway History: No history of difficult airway I - PHYSICAL EVALUATION AIRWAY Patient intubated: No. Tracheostomy tube not present Mallampati: III. TM distance: >3 FB. Neck ROM: full ROM without neurological symptoms. Mouth opening: adequate. Short neck: no. Thick neck: no Morin present: no Lip Bite Test: I Microretrognathia/Micronagthia/Recessed Chin: No DENTAL Dental findings: teeth intact. Dentures, upper: partial. II - ANESTHESIA PLAN Anesthetic Plan: other Beta Bryan Monitoring Plan Post Procedure Analgesic Plan Informed Consent Anesthetic risks, benefits, alternatives, personnel and consent discussed: yes. Patient / Responsible [employer] Party agrees to proceed: yes Prepared for Surgery: optimally prepared for surgery, pending [see comment]. Labs CONSULTS: Patient does not require consults for optimization at this time Planned Anesthetic: other anesthesia choice The Following Tests/Procedures Have Been Initiated: Orders Placed This Encounter Ferritin Standing Status: Future Number of Occurrences: 1 Standing Expiration Date: 07/15/2024 Scheduling Instructions: In preparation for this test, do not take multivitamins or dietary supplements containing biotin (vitamin B7) for at least 12 hours. Biotin is commonly found in hair, skin, and nail supplements and multivitamins. Tell your doctor if you take supplements containing biotin as part of your medication history. Iron and TIBC Standing Status: Future Number of Occurrences: 1 Standing Expiration Date: 07/15/2024 REASON FOR VISIT: Angie Dutton is a 83 year old male who is scheduled for Procedure(s): ARTHROPLASTY ACETABULAR AND PROX FEM PROSTH TOTAL HIP ANTERIOR APPROACH W/W/O AUTOGRAFT [place] on Back up (Right) at the request of Dr. Ryan Alonzo, Ryan Starr MD for consultation. My final recommendation will be communicated back to the requesting physician by wayof shared medical record or letter. Subjective The patient has the following: COVID-19 Immunization Status Overdue - Covid-19 Vaccine () Overdue since 09/29/2023 05/29/2023 Imm Admin: COVID-19 vaccine, age 12+ yr, season (PFIZER-BIONTECH) 05/24/2022 Imm Admin: COVID-19 vaccine, age 12+ yr, bivalent (PFIZER-BIONTECH) 08/02/2021 Imm Admin: COVID-19 original vaccine, age 12+ yr, monovalent (PFIZER- BIONTECH - PURPLE TOP) Only the first 3 history entries have been loaded, but more history exists. CHIEF COMPLAINT: Pre-op exam HPI: Angie Dutton is a 83 year old seen for PAC due to scheduled above surgery because of OA right hip. 02/29/2024, Dr. Ryan Alonzo HPI: Angie Dutton is a 83 year old patient here for evaluation and management of Right hip pain. 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 The problem began limiting activities 1-3 years ago. Currently the pain in the joint is rated at 8 out of 10 with minimal activity. The pain is chronic and is located in the right groin, outer aspect of the hip, and thigh. The pain is described as sharp and shooting. Relieving factors include no relieving factors. There is no specific incident that brought about this pain. Patient has no additional complaints. Total Joint Arthroplasty: Risk Calculator Angie Dutton has a 27.19% chance of NOT returning home at discharge for a Primary total Hip replacement. Angie's estimated Length of Stay is 2 days (Inpatient candidate). Angie's 30 day chance of readmission is 8.95%. Readmission Probability 8.95 % (within 30 days following surgery) Estimated LOS 2 days Discharge Disposition Probability D/C to Home 72.81 % D/C to SNF 27.19 % These calculations are based on the following factors: - 83 years of age - sex is male - BMI of 25.46 kg/m2 - [facility]xCare score of 0 - 0 hospitalizations in the last 12 months - history of heart disease - no history of diabetes - no history of COPD - history of anemia - preoperative ambulation: independent community distances - 2 step(s) to enter home - bed location is on the first floor - bath location is on the first floor - caregiver is consistent - home is not more than 150 miles away - PROMIS-10 Mental Health T score not available - Marital status: PREVIOUS TREATMENTS: Medical: OTC NSAIDS for 3 Months or Greater (Tylenol / acetaminophen), Steroid Injections Right Hip REVIEW OF SYSTEMS: General: No weight loss, malaise or fevers. Neurological: +insomnia, on rx Positive for: TIA. Respiratory: +former smoker Negative for: asthma, COPD, pneumonia within 6 weeks, tobacco use, URI < 2 weeks and obstructivesleep apnea. Cardiovascular: +carotid artery stenosis Positive for: anticoagulation therapy (Eliquis), atrial fibrillation, CAD, hyperlipidemia and hypertension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 Please advise patient. [facility]07-30-2024 Telephone encounter Note* Telephone Encounter - Valery Quinteros APRN.CNP - 03/22/2024 8:49 AM EDT The following approved medication requests have been transmitted electronically. Requested Prescriptions Pending Prescriptions Disp Refills clopidogrel (PLAVIX) 75 mg tablet 90 tablet 3 Sig: Take 1 tablet by mouth once daily. cyclobenzaprine (FLEXERIL) 5 mg tablet 180 tablet 1 Sig: Take 1 tablet by mouth two times a day as needed. ELIQUIS 5 mg tab(s) 180 tablet 3 Sig: Take 1 tablet by mouth every 12 hours. ezetimibe (ZETIA) 10 mg tablet 90 tablet 3 Sig: Take 1 tablet by mouth once daily. isosorbide mononitrate ER (IMDUR) 30 mg 24 hr tablet 45 tablet 3 Sig: Take 0.5 tablets by mouth once daily. metoprolol succinate ER (TOPROL XL) 50 mg 24 hr tablet 90 tablet 3 Sig: Take 0.5 tablets by mouth every afternoon. pantoprazole DR (PROTONIX) 20 mg tablet 180 tablet 1 Sig: Take 2 tablets by mouth once daily. simvastatin (ZOCOR) 40 mg tablet 90 tablet 3 Sig: Take 1 tablet by mouth daily at bedtime. tamsulosin (FLOMAX) 0.4 mg 90 capsule 3 Sig: Take 1 capsule by mouth daily at bedtime. traZODone (DESYREL) 50 mg tablet 90 tablet 3 Sig: Take 1 tablet by mouth daily at bedtime. Valery Quinteros APRN.CNP [facility]07-30-2024 Miscellaneous Notes* Telephone Encounter - Valery Quinteros APRN.CATIA - 03/22/2024 8:49 AM EDT The following approved medication requests have been transmitted electronically. Requested Prescriptions Pending Prescriptions Disp Refills clopidogrel (PLAVIX) 75 mg tablet 90 tablet 3 Sig: Take 1 tablet by mouth once daily. cyclobenzaprine (FLEXERIL) 5 mg tablet 180 tablet 1 Sig: Take 1 tablet by mouth two times a day as needed. ELIQUIS 5 mg tab(s) 180 tablet 3 Sig: Take 1 tablet by mouth every 12 hours. ezetimibe (ZETIA) 10 mg tablet 90 tablet 3 Sig: Take 1 tablet by mouth once daily. isosorbide mononitrate ER (IMDUR) 30 mg 24 hr tablet 45 tablet 3 Sig: Take 0.5 tablets by mouth once daily. metoprolol succinate ER (TOPROL XL) 50 mg 24 hr tablet 90 tablet 3 Sig: Take 0.5 tablets by mouth every afternoon. pantoprazole DR (PROTONIX) 20 mg tablet 180 tablet 1 Sig: Take 2 tablets by mouth once daily. simvastatin (ZOCOR) 40 mg tablet 90 tablet 3 Sig: Take 1 tablet by mouth daily at bedtime. tamsulosin (FLOMAX) 0.4 mg 90 capsule 3 Sig: Take 1 capsule by mouth daily at bedtime. traZODone (DESYREL) 50 mg tablet 90 tablet 3 Sig: Take 1 tablet by mouth daily at bedtime. Valery Quinteros APRN.ASSISTANT PORTFOLIO MANAGER * Telephone Encounter - Sharlene Trujillo RN - 03/22/2024 8:31 AM EDT Patient calls to report that all the medications that he requested at his appointment were supposedto go to [facility] (due to cost) except the Augmentin which he has picked up and started. Pended medications that he is requesting to be sent to [facility]. Please review and advise. Sharlene Trujillo RN documented in this encounterThe [facility] Hospital07-30-2024 Telephone encounter Note * Telephone Encounter - Sharlene Trujillo RN - 03/22/2024 8:31 AM EDT Patient calls to report that all the medications that he requested at his appointment were supposedto go to [facility] (due to cost) except the Augmentin which he has picked up and started. Pended medications that he is requesting to be sent to [facility]. Please review and advise. Sharlene Trujillo RN [facility]07-29-2024 Telephone encounter Note* Telephone Encounter - Harleen Ferraro LPCC - 03/21/2024 4:18 PM EDT Behavioral Health Social Work Progress Note Patient identified for [facility] from: PCP Reason for referral: [facility] Behavioral Health Resources: Psychology - talk therapy [facility] encounter type: Telephone Encounter Attempts to Outreach: 1 attempt Final Disposition: Patient declined Patient Discharged?: Yes Patient reported that caregiver was able to meet their needs today?: N/A therapist spoke with patient. He reports that he does not feel he needs counseling or psychiatryat this time. He denies currently SI, states he is feeling better. MARSHAL Joyner March 21, 2024 [facility] Work Phone: [phone]) 390-711907-29-2024 Miscellaneous Notes* Telephone Encounter - Harleen Ferraro LPCC - 03/21/2024 4:18 PM EDT Behavioral Health Social Work Progress Note Patient identified for [facility] from: PCP Reason for referral: [facility] Behavioral Health Resources: Psychology - talk therapy [facility] encounter type: Telephone Encounter Attempts to Outreach: 1 attempt Final Disposition: Patient declined Patient Discharged?: Yes Patient reported that caregiver was able to meet their needs today?: N/A therapist spoke with patient. He reports that he does not feel he needs counseling or psychiatryat this time. He denies currently SI, states he is feeling better. MARSHAL Joyner March 21, 2024 documented in this encounterThe [facility]07-29-2024 Instructions* Patient Instructions* Valery Quinteros APRN.CNP - 03/21/2024 12:58 PM EDT 1) Compression to right forearm 2) No change in medications 3) Consult behavioral health 4) Follow up in 3 months, sooner if pre-procedure optimization needed documented in this encounterThe [facility]07-29-2024 NoteAd[facility]07-29-2024 History of Present illness Narrative* Valery Quinteros APRN.CNP - 03/21/2024 12:38 PM EDT This is a 83 year old male who presents today with: Patient presents with: Follow Up ER F/U: Dog bite (his dog) HISTORY OF PRESENT ILLNESS: Angie Dutton is a 83 year old male. Patient presents with: Follow Up ER F/U: Dog bite (his dog) Had dog bite in middle of night. Here to follow up on HTN. Having hip replacement. In Apr.28. On Eliquis for A fib Took a handful of pills to end his life HTN: Patient is compliant with meds Yes Monitors bp at home: No. Was told not to. Denies side effects: No. Chest pain: No. Dyspnea: No. Edema: No. Palpitations: No. Syncope: No. Headache: No. Dizziness: No. 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 PAST SURGICAL HISTORY Procedure Laterality Date ARTHROSCOPY KNEE DIAGNOSTIC W/WO SYNOVIAL BX SPX 2001 both COLONOSCOPY FLX DX W/COLLJ SPEC WHEN PFRMD 2001 Colonoscopy COLONOSCOPY FLX DX W/COLLJ SPEC WHEN PFRMD 07/13/2014 Colonoscopy COLONOSCOPY GEN ANES 11/26/2020 CORONARY ARTERY BYP W/VEIN & ARTERY GRAFT 3 VEIN 1981 CABG, three grafts EGD 11/26/2020 EGD 02/14/2021 EYE SURGERY HX FOOT SURGERY HX Left HEART SURGERY HX NEUROPLASTY &/TRANSPOS MEDIAN NRV CARPAL TUNNE 1998 Carpal tunnel decomp bilateral PAST SURGICAL HISTORY OF surgery on umbilicus due to bleeding PAST SURGICAL HISTORY OF 1962 umbical mass resection SIGMOIDOSCOPY FLX DX W/COLLJ SPEC BR/WA IF PFRMD 08/29/2004 Sigmoidoscopy TONSILLECTOMY HX ALLERGIES Sulfa (Sulfonamide Antibiotics) MEDICATIONS Current Outpatient Medications Medication Sig amoxicillin-clavulanate potassium (AUGMENTIN) 875-125 mg per tablet Take 1 tablet by mouth two times a day. pantoprazole DR (PROTONIX) 20 mg tablet Take 2 tablets by mouth once daily. gabapentin (NEURONTIN) 400 mg capsule Take 1 capsule by mouth two times a day for 180 days. tamsulosin (FLOMAX) 0.4 mg Take 1 capsule by mouth daily at bedtime. simvastatin (ZOCOR) 40 mg tablet Take 1 tablet by mouth daily at bedtime. metoprolol succinate ER (TOPROL XL) 50 mg 24 hr tablet Take 0.5 tablets by mouth every afternoon. ELIQUIS 5 mg tab(s) Take 1 tablet by mouth every 12 hours. nitroglycerin sublingual (NITROQUICK) 0.4 mg SL tablet Dissolve 1 tablet under the tongue as directed. DISSOLVE ONE(1) TABLET UNDER THE TOUNGUE NEEDED FOR CHEST PAIN,EVERY 5 MIN X3 cyclobenzaprine (FLEXERIL) 5 mg tablet Take 1 tablet by mouth two times a day as needed. ezetimibe (ZETIA) 10 mg tablet Take 1 tablet by mouth once daily. traZODone (DESYREL) 50 mg tablet Take 1 tablet by mouth daily at bedtime. isosorbide mononitrate ER (IMDUR) 30 mg 24 hr tablet Take 0.5 tablets by mouth once daily. clopidogrel (PLAVIX) 75 mg tablet Take 1 tablet by mouth once daily. acetaminophen 650 mg CR tablet Take 1,300 mg by mouth two times a day. Uses ad needed No current facility-administered medications for this visit. FAMILY HISTORY Problem Relation Age of Onset Heart Mother Hypertension Mother Heart Father Heart Sister Heart Brother Stroke Sister Colon Cancer No Family History Social History Tobacco Use Smoking status: Former Years: 29 Types: Cigarettes Start date: 08/24/1955 Quit date: 08/24/1984 Years since quittin.6 Smokeless tobacco: Never Tobacco comments: QUIT at age 44, started at 15 Vaping Use Vaping Use: Never used Substance Use Topics Alcohol use: Not Currently Drug use: Never EXAM: BP 122/56 Pulse 88 Temp 36.7 C (98.1 F) (Tympanic) Wt 73.9 kg (163 lb) SpO2 99% BMI 25.15kg/m PHYSICAL EXAM: Physical Exam Vitals reviewed. Constitutional: Appearance: Normal appearance. HENT: Head: Normocephalic. Cardiovascular: Rate and Rhythm: Normal rate and regular rhythm. Pulses: Normal pulses. Heart sounds: Normal heart sounds. Pulmonary: Effort: Pulmonary effort is normal. Breath sounds: Normal breath sounds. Abdominal: General: Abdomen is flat. Palpations: Abdomen is soft. Musculoskeletal: Comments: Walks w/ a cane Skin: Comments: Right forearm with a nickel sized area that is deep, to the dermis. Skin completely removed. When bandage removed, stated to bleed again. Neurological: General: No focal deficit present. Mental Status: He is alert and oriented to person, place, and time. Psychiatric: Mood and Affect: Mood normal. Behavior: Behavior normal. LABS: ASSESSMENT/PLAN: 1. Mixed hyperlipidemia - ICD9: 272.2, ICD10: E78.2 (primary diagnosis) - Controlled - Counseled on healthy diet and regular exercise - EZETIMIBE 10 MG TABLET 2. BPH with obstruction/lower urinary tract symptoms - ICD9: 600.01, 599.69, ICD10: N40.1, N13.8 Much improved on medication - TAMSULOSIN 0.4 MG CAPSULE 3. Chronic right hip pain - ICD9: 719.45, 338.29, ICD10: M25.551, G89.29 Having surgery, too soon for optimization - CYCLOBENZAPRINE 5 MG TABLET 4. Iron deficiency anemia, unspecified iron deficiency anemia type - ICD9: 280.9, ICD10: D50.9 Check labs - PANTOPRAZOLE 20 MG TABLET,DELAYED RELEASE 5. Dyspepsia - ICD9: 536.8, ICD10: R10.13 Stable on medication - PANTOPRAZOLE 20 MG TABLET,DELAYED RELEASE 6. Dysphagia, unspecified type - ICD9: 787.20, ICD10: R13.10 Stable on medication - PANTOPRAZOLE 20 MG TABLET,DELAYED RELEASE 7. Primary insomnia - ICD9: 307.42, ICD10: F51.01 Stable on medication - TRAZODONE 50 MG TABLET 8. 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 Paroxysmal atrial fibrillation (HCC) - ICD9: 427.31, ICD10: I48.0 Anticoagulated - ELIQUIS 5 MG TABLET 10. Dog bite, sequela - ICD9: 906.1, ICD10: W54.0XXS - Pt. States he received tetanus shot but not documented - ER placed pt. On Augmentin 11. Hypertension, unspecified type - ICD9: 401.9, ICD10: I10 - Controlled - Recommend home blood pressure monitoring, to bring results to next visit - Encouraged sodium restriction, DASH or Mediterranean diet - Recommend regular aerobic exercise 12. Suicide attempt (HCC) - ICD9: E958.9, ICD10: T14.91XA Denies suicidal thought Discussed treatment plan and patient voices understanding. Patient's questions answered appropriately. Medications and potential side effects were discussed and patient voices understanding. Return to the office as scheduled or as needed for worsening/no improvement. Valery Quinteros APRN.ASSISTANT PORTFOLIO MANAGER documented in this encounterThe [facility]07-25-2024 NoteAd[facility]07-25-2024 History of Present illness Narrative* Beryl Kuhn RN - 03/17/2024 4:07 PM EDT [facility] Telephonic Outreach Provider Action/FYI Contacted for: Routine Telephonic Outreach Contact made with patient: Yes Patient identified by name and date of . Discussed care with patient Are you experiencing any new or worsening symptoms you need to talk about today? No Disease Specific Do you check your blood pressure at home? Yes, Enter readings: not reported Do you have new or worsening shortness of breath with activity? No Do you feel like you are dehydrated for any reason, including not being able to eat or drink normally, or having less urine/much darker urine than normal for you? No Do you check your daily weight at home? Yes, Have you noticed a sudden gain in weight greater than three pounds in a day or three pounds in a week? No Based on assessment coordinator, the following disposition is advised: No symptoms or symptoms present, not severe. Routed to: No Action Needed EDWARDO Education Provided this Outreach: No Beryl Kuhn RN March 17, 2024 4:19 PM Care Coordination next call- CKD HTN Last CDM outreach contact: 02/17/24 - No CDM concerns. wt 159 lbs , 03/15/24 -,[place] suicidal but today he denies he would follow through. came to home on 03/15 and evaluated. Has an appt 03/21/24 ..Spouse in SNF- femur fx, No SI or HI today. Getting hip surg in Apr. Using a cane and getting around better Baseline: 10/23/23 ADL, FALL, GOAL due: 05/08/24. Chronic disease goal - 03/09/23 -CKD -reviewed CDK zones. 07/03/23 - HTN. 07/03/23- Reviewed renal diet and HTN goals SDOH transportation and food insecurity completed: 01/07/23 Recent Admit, ED, Observation: 09/25- Admit Dinorah - Afib DC 09/26 * Beryl Kuhn RN - 03/17/2024 11:15 AM EDT CDM Telephonic Outreach Provider Action/FYI Contacted for: Routine Telephonic Outreach Contact made with patient: No, left message. Beryl Kuhn RN March 17, 2024 11:20 AM documented in this encounterThe [facility]07-25-2024 NoteAd[facility]07-23-2024 Telephone encounter Note* Telephone Encounter - Marychuy Bo MA - 03/15/2024 11:03 AM EDT Spoke with patient. Police stopped by and spoke with pt. He said he had a nice conversation with 2 nice policemen and showed them his 8 trains, his sports memorabilia, his mustang, and how he has a daybed downstairs for naps. They had him talk to a really nice lady and he a good conversation with her. She gave him a number to call, which he repeated to me: [phone] (crisis hotline at [facility]) He talked to me about going out to see Elzbieta, his and how she misses him, but she is doing well. He told me he was sad about Aidan Saini possible not returning and I assured him he and his would be taken care of no matter what happens. I scheduled an appointment for Thursday with Sofya Neli just for a check in to make sure he is doing well and he was thankful for all of us here. Dr Seth notified. Marychuy Bo MA March 15, 2024 11:30 AM [facility]07-23-2024 Miscellaneous Notes* Telephone Encounter - Marychuy Bo MA - 03/15/2024 11:03 AM EDT Spoke with patient. Police stopped by and spoke with pt. He said he had a nice conversation with 2 nice policemen and showed them his 8 trains, his sports memorabilia, his mustang, and how he has a daybed downstairs for naps. They had him talk to a really nice lady and he a good conversation with her. She gave him a number to call, which he repeated to me: [phone] (crisis hotline at [facility]) He talked to me about going out to see Elzbieta, his and how she misses him, but she is doing well. He told me he was sad about Aidan Saini possible not returning and I assured him he and his would be taken care of no matter what happens. I scheduled an appointment for Thursday with Sofya Quinteros just for a check in to make sure he is doing well and he was thankful for all of us here. Dr Seth notified. Marychuy Bo MA March 15, 2024 11:30 AM * Telephone Encounter - Todd Seth MD - 03/15/2024 9:58 AM EDT Noted. Can we check later today to see what occurred after-if taken to ER etc. * Telephone Encounter - Sharlene Trujillo RN - 03/15/2024 8:53 AM EDT Patient calls to report he is feeling suicidal. Patient reports a history of suicide attempt and a plan to overdose with prescription medications Eliquis and numerous unidentified prescriptions. Requested the assistance of another nurse to call 911 and kept patient on the line until officers arrived. Patient reports at this time he thinks he feels better and doesn't think he would actually followthrough. Patient disconnected the phone to placed dog in another room to answer the door. Reason for Disposition Patient is threatening suicide now Answer Assessment - Initial Assessment Questions 1. CONCERN: Patient calls and reports that he is feeling like he did before when he tried to kill himself. Asked patient what that meant and he reported that he had all kinds of prescription pills that he could take. When asked what all he had he said a bottle of Eliquis and all kinds of other stuff. 2. DEPRESSION SYMPTOM SCREENING: Patient reports hopeless and overall awful since spouse is in the usp and bills just keep piling up. Patient reports that her usp stay was supposed to be covered but it isn't since the first week and they already owe over $8000. 3. RISK OF HARM - SUICIDAL IDEATION: Patient reports thoughts and a plan of killing himself by overdose 4. RISK OF HARM - HOMICIDAL IDEATION: No homicidal ideation 5. FUNCTIONAL IMPAIRMENT: Overall worse 6. SUPPORT: Patient is home alone with dog. Patient reports no friends. Little family support. A son-in-law that helps him pay bills. 7. THERAPIST: No 8. STRESSORS: Yes, spouse had a fall with hip fracture and currently in the usp. Bills arepiling up. 9. ALCOHOL USE OR SUBSTANCE USE (DRUG USE): 10. OTHER: Weakness and utilizing a cane for ambulation. Protocols used: [id number] documented in this encounterThe [facility]07-23-2024 Telephone encounter Note * Telephone Encounter - Todd Seth MD - 03/15/2024 9:58 AM EDT Noted. Can we check later today to see what occurred after-if taken to ER etc. [facility]07-23-[facility] Telephone encounter Note* Telephone Encounter - Sharlene Trujillo RN - 03/15/2024 8:53 AM EDT Patient calls to report he is feeling suicidal. Patient reports a history of suicide attempt and a plan to overdose with prescription medications Eliquis and numerous unidentified prescriptions. Requested the assistance of another nurse to call 911 and kept patient on the line until officers arrived. Patient reports at this time he thinks he feels better and doesn't think he would actually followthrough. Patient disconnected the phone to placed dog in another room to answer the door. Reason for Disposition Patient is threatening suicide now Answer Assessment - Initial Assessment Questions 1. CONCERN: Patient calls and reports that he is feeling like he did before when he tried to kill himself. Asked patient what that meant and he reported that he had all kinds of prescription pills that he could take. When asked what all he had he said a bottle of Eliquis and all kinds of other stuff. 2. DEPRESSION SYMPTOM SCREENING: Patient reports hopeless and overall awful since spouse is in the usp and bills just keep piling up. Patient reports that her usp stay was supposed to be covered but it isn't since the first week and they already owe over $8000. 3. RISK OF HARM - SUICIDAL IDEATION: Patient reports thoughts and a plan of killing himself by overdose 4. RISK OF HARM - HOMICIDAL IDEATION: No homicidal ideation 5. FUNCTIONAL IMPAIRMENT: Overall worse 6. SUPPORT: Patient is home alone with dog. Patient reports no friends. Little family support. A son-in-law that helps him pay bills. 7. THERAPIST: No 8. STRESSORS: Yes, spouse had a fall with hip fracture and currently in the usp. Bills arepiling up. 9. ALCOHOL USE OR SUBSTANCE USE (DRUG USE): 10. OTHER: Weakness and utilizing a cane for ambulation. Protocols used: [id number] [facility]07-10-2024 NoteAd[facility]07-10-2024 History of Present illness Narrative* Jeanie Tavares, DO - 03/02/2024 9:45 AM EDT Images from the original note were not included. [facility] [place] Navya Ivey Department of Cardiovascular Medicine SECTION OF REGIONAL CARDIOLOGY FOLLOW UP 03/02/2024 Pamela: 03/03/2023 HPI: Angie Dutton is (an) 83 year old male with history of CAD s/p CABG x 3, 1985, PCI x 2 - 2007, hyperlipidemia, hypertension, CKD, PSVT, PVD and hiatal hernia who is here today for follow-up. I care for his as well. He has been doing quite well with a very active high-quality life. He was last seen by our nurse practitioner Brittani Mace after admission to [facility] with chest pain and palpitations. He was found to be in atrial fibrillation with rapid ventricular response. He spontaneously converted to sinus rhythm after being placed on IV diltiazem drip. He had hismetoprolol increased to 50 mg daily from 25 however at last visit this was cut back to 25 mg due tohis concern of a lower blood pressure reading. We did do a ZIO monitor in October 2023 and this did show occasional frequent SVT runs but no evidence of atrial fibrillation. He reports that he has had stable exercise tolerance. He is going to [place] regularly. He denies chest pain. He's used no nitroglycerin. He has had no orthopnea, edema, syncope, palpitations, TIAs, amaurosis, claudication. The patient is involved in sporadic irregular exercise Patient denies SOB, chest pain, dizziness, lightheadedness, palpitations, lower extremity edema, PND, orthopnea, presyncope, syncope or claudication symptoms. Prior Hx: 08/06/21 [facility] admit:06/25/2021 Prehospital work-up: Presented to [facility] emergency department 06/25/2021 with complaints of inability to walk or stand up straight. 06/25/2021 CT head without IV contrast: Nonspecific white matter changes, ventricles appropriate for age, no masses. 06/25/21 CT angiography head and neck with IV contrast: No major vessel stenosis or occlusion other than the right internal carotid artery 40% stenosis, right external carotid artery moderate stenosisno occlusion, left internal carotid artery 55% stenosis, left external carotid artery moderate stenosis. Other findings: Right maxillary sinus mucosal retention cyst, degenerative changes in cervicalspine at multiple levels causing foraminal stenosis. 06/26/21 MRI: no evidence of acute ischemia. Chronic microvascular changes 06/26/21 echo: LV size and LV SF WNL. Apical false tendon noted. EF 65%. Moderate stage II diastolicdysfunction. No regional wall abnormalities noted. RV size and RV SF WNL. LA moderately enlarged, RA WNL, no right to left shunt noted. MV mild annular calcification, extension onto posterior leaflet, 1+ MRI. 0-1 TBI, right ventricular systolic pressure 36 mmHg. AV mild focal calcification, trivialAVI. PV not visualized well, trivial PVR. Aortic root not well visualized. No pericardial effusion. labs: 07-14 WBC 3.7L-Hgb 13.7-HCT 42.3, PLT 74L otherwise normal differential. NA 148-K4.1-CL 109-CO2 20.0-AG 3-BUN 13-CRE 1.29 EGFR 57L-GLU 90-CA 9.1-troponin high-sensitivity #1 36, #2 46-MG 1.9 They did not feel he had a stroke but was dehydrated.. Myocardial perfusion imaging stress test in September 2019 was normal with his prior study in September 2017 suggesting a very small area of ischemia possibly in the RCA and circumflex distribution. 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 PAST SURGICAL HISTORY Procedure Laterality Date ARTHROSCOPY KNEE DIAGNOSTIC W/WO SYNOVIAL BX SPX 2000 both COLONOSCOPY FLX DX W/COLLJ SPEC WHEN PFRMD 2001 Colonoscopy COLONOSCOPY FLX DX W/COLLJ SPEC WHEN PFRMD 07/13/2014 Colonoscopy COLONOSCOPY GEN ANES 11/26/2020 CORONARY ARTERY BYP W/VEIN & ARTERY GRAFT 3 VEIN 1981 CABG, three grafts EGD 11/26/2020 EGD 02/14/2021 EYE SURGERY HX FOOT SURGERY HX Left HEART SURGERY HX NEUROPLASTY &/TRANSPOS MEDIAN NRV CARPAL TUNNE 1998 Carpal tunnel decomp bilateral PAST SURGICAL HISTORY OF surgery on umbilicus due to bleeding PAST SURGICAL HISTORY OF 1961 umbical mass resection SIGMOIDOSCOPY FLX DX W/COLLJ SPEC BR/WA IF PFRMD 08/29/2004 Sigmoidoscopy TONSILLECTOMY HX FAMILY HISTORY Problem Relation Age of Onset Heart Mother Hypertension Mother Heart Father Heart Sister Heart Brother Stroke Sister Colon Cancer No Family History SOCIAL HISTORY Social History Tobacco Use Smoking status: Former Years: 27 Types: Cigarettes Start date: 08/24/1955 Quit date: 08/24/1984 Years since quittin.5 Smokeless tobacco: Never Tobacco comments: QUIT at age 44, started at 15 Vaping Use Vaping Use: Never used Substance Use Topics Alcohol use: Not Currently Drug use: Never ALLERGIES: Sulfa (Sulfonamide Antibiotics) CURRENT MEDICATIONS: Current Outpatient Medications Medication Sig pantoprazole DR (PROTONIX) 20 mg tablet Take 2 tablets by mouth once daily. gabapentin (NEURONTIN) 400 mg capsule Take 1 capsule by mouth two times a day for 180 days. tamsulosin (FLOMAX) 0.4 mg Take 1 capsule by mouth daily at bedtime. simvastatin (ZOCOR) 40 mg tablet Take 1 tablet by mouth daily at bedtime. metoprolol succinate ER (TOPROL XL) 50 mg 24 hr tablet Take 0.5 tablets by mouth every afternoon. ELIQUIS 5 mg tab(s) Take 1 tablet by mouth every 12 hours. nitroglycerin sublingual (NITROQUICK) 0.4 mg SL tablet Dissolve 1 tablet under the tongue as directed. DISSOLVE ONE(1) TABLET UNDER THE TOUNGUE NEEDED FOR CHEST PAIN,EVERY 5 MIN X3 cyclobenzaprine (FLEXERIL) 5 mg tablet Take 1 tablet by mouth two times a day as needed. ezetimibe (ZETIA) 10 mg tablet Take 1 tablet by mouth once daily. traZODone (DESYREL) 50 mg tablet Take 1 tablet by mouth daily at bedtime. isosorbide mononitrate ER (IMDUR) 30 mg 24 hr tablet Take 0.5 tablets by mouth once daily. clopidogrel (PLAVIX) 75 mg tablet Take 1 tablet by mouth once daily. acetaminophen 650 mg CR tablet Take 1,300 mg by mouth two times a day. Uses ad needed No current facility-administered medications for this visit. ROS: Card: See present history. Pulm: Negative for cough, hemoptysis, wheezing, COPD, dyspnea or shortness of breath Gastro: No nausea, vomiting, or diarrhea GenUr: No history of dysuria, frequency or incontinence Endo: Negative for cold or heat intolerance, polyuria or polydipsia. Neuro: no focal weakness, focal sensory loss, headache, visual changes, seizure activity, ataxia, speech/language loss. Musculoskeletal: Negative for joint or muscle pain, back pain, or swelling. Infect: no fevers, chills, rigors or night sweats. Skin: Negative for lesions, rash, and itching. Heme: Negative for prolonged bleeding, bruising easily or swollen nodes. The remainder of the review of systems is negative. PHYSICAL EXAMINATION: GENERAL: alert cooperative, pleasant oriented x 3 (self, time and place) in no acute distress There were no vitals taken for this visit. Last 3 Encounter BP Readings: Date: BP: 01/30/2020 132/70 11/01/2019 128/86 10/25/2019 142/70 Last 3 Encounter Pulse Readings: Date: Pulse: 01/30/2020 62 11/01/2019 59 10/25/2019 60 Last 3 Encounter Wt Readings: Date: Wt: 02/16/2020 70.3 kg (155 lb) 01/30/2020 71.7 kg (158 lb) 10/25/2019 74.4 kg (164 lb) SKIN: warm, dry, no rash. NECK: supple, no palpable masses, no JVD, carotids well felt, no bruits. CARDIAC: [place] palpable in the 5th intercostal space mid clavicular line, normal S1 and S2, no murmurs, gallops, or rubs. Irregular at times CHEST: Normal respiratory efforts, lungs clear to auscultation bilaterally. ABDOMEN: Soft, no tenderness, rigidity, or masses. No palpable liver or spleen. Normal bowel sounds, no bruits. NEURO: intact cranial nerves II through XII, no motor or sensory deficits in all 4 extremities. EXTREMITIES: No cyanosis, clubbing, or edema. Peripheral pulses well felt. CARDIAC (& OTHER IMPORTANT) TESTING: [facility] Patient Name: Angie Dutton : 1940 Ordering Provider: BRITTANI MACE Indication: I48.0 Paroxysmal atrial fibrillation Type of Monitor: Extended Monitoring-Zio Patch Enrollment Dates: 10/29/2023-11/12/2023 Patient had a min HR of 50 bpm, max HR of 235 bpm, and avg HR of 78 bpm. Predominant underlying rhythm was Sinus Rhythm. 86 Supraventricular Tachycardia runs occurred, the run with the fastest interval lasting 5 beats with a max rate of 235 bpm, the longest lasting 16 beats with an avg rate of 108 bpm. Isolated SVEs were rare (<1.0%), SVE Couplets were rare (<1.0%), and SVE Triplets were rare (<1.0%). Isolated VEs were rare (<1.0%), VE Couplets were rare (<1.0%), and no VE Triplets were present. Ventricular Bigeminy was present. No symptoms submitte MPI 10/17/19: CONCLUSIONS: 1. SPECT Perfusion Study: Normal. 2. There is no scintigraphic evidence for inducible ischemia. 3. No evidence of scarred myocardium. 4. Functional capacity N/A (pharmacological). 5. Left ventricle is normal in size. The left ventricle systolic function is normal. 6. Right ventricle is normal in size. 7. This is a low risk scan. 1 LVEF % 68 LABS: Cholesterol, Total (mg/dL) Date Value 01/11/2024 129 08/08/2021 195 HDL Cholesterol (mg/dL) Date Value 01/11/2024 67 08/08/2021 60 LDL Cholesterol (mg/dL) Date Value 01/11/2024 49 08/08/2021 110 Triglyceride (mg/dL) Date Value 01/11/2024 64 08/08/2021 125 ASSESSMENT/PLAN: Preoperative cardiovascular exam Patient notes possible need for right hip surgery He will be an intermediate to higher cardiac risk He has no cardiac symptoms and remains in sinus He may hold Eliquis for 2-3 days prior to surgery and restart after safe from a surgical standpoint. Paroxysmal atrial fibrillation - sinus with frequent PACs on today's ekg - found to have AF RVR at admission to [facility] 09/2023 - converted to SR on admission - echo on admission normal EF, grade II DD, moderate LAE. - started on Toprol 50 mg daily and Eliquis 5 mg BID - regular on exam today - Toprol decreased to 25 mg daily last visit as he was concerned with low BP readings (increased to50 mg with RVR in [facility]) - [facility] 10/2023 no AF noted but had pSVT Coronary artery disease involving [place] coronary artery of [place] heart without angina pectoris - s/p CABGx 3 1985, PCI stent - 2007 - plavix 75 mg daily, Toprol 50 daily, simvastatin 40 mg and Imdur 15 mg daily - Continue secondary prevention Essential hypertension, benign - optimal control today >> patient voiced concerns about lower BP since starting Toprol for his AF. - Encouraged dietary sodium restriction/DASH diet - Recommended regular aerobic exercise. - Reviewed risks of HTN and principles of treatment - Goal of BP <130/80 Mixed hyperlipidemia - optimal control with LDL 59, 03/2023 and goal at < 70 - Continue current medication (simvastatin 40 mg, ezetimibe 10 mg) TIA (transient ischemic attack) - ? Related to undiagnosed AF - on Eliquis, Plavix and BB now We had a very long discussion reviewing the pathophysiology, testing and treatment options for Atrial Fibrillation. I discussed the risk of a thromboembolic event from this rhythm in reference to [id number] scoring and the risk of anticoagulation if needed according to the HAS-BLED scoring and oth er contributing risks. We discussed some of the causative factors often leading to AF including, but not limited to, hypertension, thyroid, sleep apnea and possible CAD. We will follow him periodically to help with secondary prevention watch for any recurrence paroxysmal atrial fibrillation. He should continue anticoagulation and beta-bryan. He is an intermediate to higher cardiac risk for surgery and may hold Eliquis 48 to 72 hrs preop. Thank you for allowing me the privilege of participating in the care of your patient. Please do nothesitate to contact me if there are any questions. Jeanie Tavares, DO, FACC, FCCP, FACOI CC: Lizeth Saini PA-C [id number] [place] [address] documented in this encounterThe [facility]07-[facility]24 NoteAd[facility] History of Present illness Narrative* Ryan Alonzo MD - 02/29/2024 9:29 AM EDT Images from the original note were not included. Established Patient Ortho Hip Consult Note ASSESSMENT & PLAN: Angie is a 83 year old male who presents to the office today for right hip follow up. He has been seeing Dr. Cristiano Ramos in the past for chronic management and hip injections. He reports that he did not care for Dr. Ramos, so he is seeing a new provider. Patient reports 2 years of right hip pain located in the groin and anterior thigh. Has been treated with 3 cortisone injections, one at [place] and 2 at [facility]. Most recent injection appears to be completed on August. He reports that he went into a-fib after the most recent injection and is now on Eliquis. He is a former smoker and quit in 1984. Denies history of blood clots or DM. He is on chronic anticoagulation with Eliquis and plavix Notable history includes CABG x 3 in 1981. CKD stage III 02/29/2024: Patient sees me today for right hip pain. He walks with a cane at baseline. He was previously very active but no longer can golf or do things due to the right hip pain. He is on Plavix and Eliquis for A-fib and CAD. He follows with cardiology here. Denies any fevers or chills no numbness or tingling. He continues to have severe right hip pain in the groin and limited range of motion. Patient has failed conservative treatment for with regards to their R hip degenerative disease. Discussed surgical treatment in the form of a total hip replacement to address their condition. Discussed the benefits of the operation as well as the risks which include infection, dislocation, femoral nerve palsy, sciatic nerve palsy, dislocation, fracture, loosening of the components, DVT/PE, further need for revision surgery, and other complications related to anesthesia. Discussed various approaches used for total hip arthroplasty including posterior and Anterior-Based Muscle Sparing (ABMS). Patient understands the procedure, risks, and benefits and wishes to proceed with a R Anterior-Based Muscle Sparing total hip arthroplasty. Will schedule appointment for Preop Anesthesia Evaluation. The surgery will be [facility] for [facility]. Surgery: R ABMS PARAS on apr 28 shante ([facility] vs [facility]) DVT ppx: Eliquis 2.5mg bid for POD1-4, then resume home on POD5, Plavix to be held until postop day7 if wound dry and no drainage Abx: Ancef + Doxy TXA: IV -Sent message to cardiology he is seeing them March 02, will obtain prior cardiac optimization before surgery Ryan Alonzo MD Impression: Right Hip Severe Degenerative Osteoarthritis, Primary -Patient like to proceed with a right total hip replacement stump with. Discussed the risk and benefits as stated above. Does have to see cardiology prior to his visit and will see them in March 02 for optimization. Discussed the need for held of coagulation prior to the procedure. Surgery was done at [facility] Progressive symptoms include: Pain impacting sleep or causing fatigue Pain worsened by weight bearing Pain effecting living situation Pain limiting ability to stay fit and healthy Unable to ambulate 2 blocks without significant pain and dysfunction. We had a lengthy discussion regarding the risk and benefit of surgery, the alternatives, limitations and personnel involved. These included but were not limited to infection, persistent pain, instability, nerve injury, blood clots, and medical complications. We also discussed the pre-operative course, surgery itself and rehabilitation. Tereza-operative blood management and transfusion issues were discussed, and options clearly outlined. The patient has consented to the use of the banked allogenic blood if medically necessary. The patient has elected to schedule surgery at this time or intends to call the office with a surgical date. Shared decision making occurred while obtaining informed consent. The patient will be scheduled for a pre-operative education class at which time they will have their nasal swab completed and will be given CHG cloths along with the verbal and written instructions for their use. Patient has been instructed and has been scheduled or will call to schedule attendence in one of the total joint perioperative classes offered prior to proceeding with PARAS.. The patient has been ordered: No orders placed today. CONSULTS: IMPACT/PACE Consult for preoperative clearance. Cardiology Consult for cardiac clearance for right hip replacement. ACTIVE PROBLEM LIST Spinal Stenosis, Lumbar Region, Without Neurogenic Claudication Thoracic Or Lumbosacral Neuritis Or Radiculitis, Unspecified Lumbosacral Spondylosis Without Myelopathy Essential Hypertension, Benign Mixed Hyperlipidemia Coronary Atherosclerosis Insomnia, Unspecified Esophageal Reflux Impaired Fasting Glucose Allergic Rhinitis, Cause Unspecified Elevated Serum Creatinine Serum Calcium Elevated Atherosclerosis of [place] Coronary Artery of [place] Heart With Stable Angina Pectoris (Hcc) Tia (Transient Ischemic Attack) Chronic Right Hip Pain Pain of Right Calf Stage 3a Chronic Kidney Disease (Hcc) Iron Deficiency Anemia Chronic Itp (Idiopathic Thrombocytopenia) (Hcc) Right Groin Pain Hypertensive Kidney Disease With Stage 3a Chronic Kidney Disease (Hcc) Bilateral Carotid Artery Stenosis SUBJECTIVE CHIEF COMPLAINT: Hip Pain HPI: Angie Dutton is a 83 year old patient here for evaluation and management of Right hip pain. 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 The problem began limiting activities 1-3 years ago. Currently the pain in the joint is rated at 8 out of 10 with minimal activity. The pain is chronic and is located in the right groin, outer aspect of the hip, and thigh. The pain is described as sharp and shooting. Relieving factors include no relieving factors. There is no specific incident that brought about this pain. Patient has no additional complaints. Total Joint Arthroplasty: Risk Calculator Angie Dutton has a 27.19% chance of NOT returning home at discharge for a Primary total Hip replacement. Angie's estimated Length of Stay is 2 days (Inpatient candidate). Angie's 30 day chance of readmission is 8.95%. Readmission Probability 8.95 % (within 30 days following surgery) Estimated LOS 2 days Discharge Disposition Probability D/C to Home 72.81 % D/C to SNF 27.19 % These calculations are based on the following factors: - 83 years of age - sex is male - BMI of 25.46 kg/m2 - NarxCare score of 0 - 0 hospitalizations in the last 12 months - history of heart disease - no history of diabetes - no history of COPD - history of anemia - preoperative ambulation: independent community distances - 2 step(s) to enter home - bed location is on the first floor - bath location is on the first floor - caregiver is consistent - home is not more than 150 miles away - PROMIS-10 Mental Health T score not available - Marital status: PREVIOUS TREATMENTS: Medical: OTC NSAIDS for 3 Months or Greater (Tylenol / acetaminophen), Steroid Injections Right Hip Risk Factors for Total Joint Arthroplasty (TJA) Obesity normal High: BMI > 40 Moderate: BMI 30-40 Normal: BMI < 30 Diabetes normal High: A1C > 8 Moderate: A1C 7-8 Normal: A1C < 7 Smoking normal High: Current smoker Normal: Non smoker Anemia High Risk High: Hgb < 13 (men) N/A: Hgb >= 13 (men) Nutritional Status normal High: Alb<3.4, or prealb<15, or serum transferrin<200, or total lymphocyte count<1500 Normal: normal labs COPD normal High: dx of COPD Normal: no dx of COPD MRSA normal High: dx of MRSA or positive lab test Normal: no MRSA CKD normal High: eGFR<60 Moderate: eGFR 60-89 Normal: eGFR>90 Hx of DVT / PE normal High: dx of DVT / PE Normal: no dx of DVT / PE Narcotics Use normal High:NarxCare >=300 Moderate: 100-299 Normal: 0-99 KATYA normal High: dx of KATYA N/A: no dx of KATYA Coagulation High Risk High:PT Sec>13, or PT INR>1.3, or APTT>32.4, or Plt ct<150k Moderate: on anticoag but none of the above Normal: none Anemia Hemoglobin (g/dL) Date Value 01/11/2024 11.9 04/02/2023 13.3 08/31/2021 14.8 07/15/2021 13.5 Coagulation Latest Ref Rng & Units 04/12/2008 Coag/Hyper Coag Labs PT INR 0.8 - 1.7 1.0 PT Sec 10.0 - 14.0 sec 12.2 Latest Ref Rng & Units 01/08/2023 04/02/2023 01/11/2024 Hemoglobin and Platelets Hemoglobin 13.0 - 17.0 g/dL 14.1 13.3 11.9 Platelet Count 150 - 400 k/uL 89 78 96 Other Risk Factors Heart Disease PHYSICAL EXAM There were no vitals taken for this visit. All other systems deferred. GENERAL: Appears healthy, well-nourished, no deformities. HABITUS: Normal GAIT: Antalgic to the right and Ambulatory Aid: a cane HIP EXAM: LLD 5mm short left Right: ROM: Extension: slight flexion contracture Flexion: 90 degrees Internal Rotation: 5 degrees External Rotation: 20 degrees Abduction: 20 degrees Adduction: 15 degrees Strength: Abduction 5/5 and Flexion 5/5 Palpation: Tenderness over right greater trochanter Log roll: painful. Straight leg raise: Positive, reproducing hip symptoms Neurovascular Status: Sensation Intact, Moves foot and ankle up & down, and 2+ dorsalis pedis DATA: Diagnostic tests reviewed for today's visit: X-ray of the right hip shows severe degenerative changes with complete joint space narrowing superior migration of the femoral head. There is some lytic lesions in the femoral head likely due to joint line cyst. There is some osteophytes as well. I spent a total of approximately 65 minutes on the date of the service which included preparing to see the patient, [id number] patient care, completing clinical documentation, obtaining and/or reviewing separately obtained history, performing a medically appropriate examination, counseling and educating the patient/family/caregiver, ordering medications, tests, or procedures, communicating withother HCPs (not separately reported), independently interpreting results (not separately reported),communicating results to the patient/family/caregiver, and care coordination (not separately reported). Ryan Alonzo MD documented in this encounterThe [facility]07-05-2024 NoteAd[facility]07-05-2024 History of Present illness Narrative* Asif Gonzales PA- C - 02/26/2024 1:41 PM EDT Images from the original note were not included. Established Patient Ortho Hip Consult Note ASSESSMENT & PLAN: Angie is a 83 year old male who presents to the office today for right hip follow up. He has been seeing Dr. Cristiano Ramos in the past for chronic management and hip injections. He reports that he did not care for Dr. Ramos, so he is seeing a new provider. Patient reports 2 years of right hip pain located in the groin and anterior thigh. Has been treated with 3 cortisone injections, one at [place] and 2 at [facility]. Most recent injection appears to be completed on August. He reports that he went into a-fib after the most recent injection and is now on Eliquis. He is a former smoker and quit in 1984. Denies history of blood clots or DM. He is on chronic anticoagulation with Eliquis. Notable history includes CABG x 3 in 1981. CKD stage III We had an extended discussion regarding treatment of his hip. Further injections would not provide relief given the progression of his arthritis. Patient would like to pursue right hip replacement asa treatment option. He would need cardiac clearance prior to surgery. He sees Dr. Bennett in [place] with next visit scheduled on 03/02/2024. We will have him see Dr. Ryan Alonzo on 02/29/2024 to discuss right hip replacement. Impression: Right Hip Severe Degenerative Osteoarthritis, Primary Angie Dutton has radiograph and physical exam evidence of degenerative joint disease and wishes to pursue surgery. This patient appears to have sufficient symptoms to warrant surgical intervention and is an appropriate candidate for right Primary Total Hip Arthroplasty as evidenced by six months ofunsuccessful non-operative treatment as outlined in the HPI below and progressive symptoms. Progressive symptoms include: Pain impacting sleep or causing fatigue Pain worsened by weight bearing Pain effecting living situation Pain limiting ability to stay fit and healthy Unable to ambulate 2 blocks without significant pain and dysfunction. We had a lengthy discussion regarding the risk and benefit of surgery, the alternatives, limitations and personnel involved. These included but were not limited to infection, persistent pain, instability, nerve injury, blood clots, and medical complications. We also discussed the pre-operative course, surgery itself and rehabilitation. Tereza-operative blood management and transfusion issues were discussed, and options clearly outlined. The patient has consented to the use of the banked allogenic blood if medically necessary. The patient has elected to schedule surgery at this time or intends to call the office with a surgical date. Shared decision making occurred while obtaining informed consent. The patient will be scheduled for a pre-operative education class at which time they will have their nasal swab completed and will be given CHG cloths along with the verbal and written instructions for their use. Patient has been instructed and has been scheduled or will call to schedule attendence in one of the total joint perioperative classes offered prior to proceeding with PARAS.. The patient has been ordered: No orders placed today. CONSULTS: IMPACT/PACE Consult for preoperative clearance. Cardiology Consult for cardiac clearance for right hip replacement. ACTIVE PROBLEM LIST Spinal Stenosis, Lumbar Region, Without Neurogenic Claudication Thoracic Or Lumbosacral Neuritis Or Radiculitis, Unspecified Lumbosacral Spondylosis Without Myelopathy Essential Hypertension, Benign Mixed Hyperlipidemia Coronary Atherosclerosis Insomnia, Unspecified Esophageal Reflux Impaired Fasting Glucose Allergic Rhinitis, Cause Unspecified Elevated Serum Creatinine Serum Calcium Elevated Atherosclerosis of [place] Coronary Artery of [place] Heart With Stable Angina Pectoris (Hcc) Tia (Transient Ischemic Attack) Chronic Right Hip Pain Pain of Right Calf Stage 3a Chronic Kidney Disease (Hcc) Iron Deficiency Anemia Chronic Itp (Idiopathic Thrombocytopenia) (Hcc) Right Groin Pain Hypertensive Kidney Disease With Stage 3a Chronic Kidney Disease (Hcc) Bilateral Carotid Artery Stenosis SUBJECTIVE CHIEF COMPLAINT: Hip Pain HPI: Angie Dutton is a 83 year old patient here for evaluation and management of Right hip pain. 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 The problem began limiting activities 1-3 years ago. Currently the pain in the joint is rated at 8 out of 10 with minimal activity. The pain is chronic and is located in the right groin, outer aspect of the hip, and thigh. The pain is described as sharp and shooting. Relieving factors include no relieving factors. There is no specific incident that brought about this pain. Patient has no additional complaints. Total Joint Arthroplasty: Risk Calculator Angie Dutton has a 27.19% chance of NOT returning home at discharge for a Primary total Hip replacement. Angie's estimated Length of Stay is 2 days (Inpatient candidate). Angie's 30 day chance of readmission is 8.95%. Readmission Probability 8.95 % (within 30 days following surgery) Estimated LOS 2 days Discharge Disposition Probability D/C to Home 72.81 % D/C to SNF 27.19 % These calculations are based on the following factors: - 83 years of age - sex is male - BMI of 25.46 kg/m2 - NarxCare score of 0 - 0 hospitalizations in the last 12 months - history of heart disease - no history of diabetes - no history of COPD - history of anemia - preoperative ambulation: independent community distances - 2 step(s) to enter home - bed location is on the first floor - bath location is on the first floor - caregiver is consistent - home is not more than 150 miles away - PROMIS-10 Mental Health T score not available - Marital status: PREVIOUS TREATMENTS: Medical: OTC NSAIDS for 3 Months or Greater (Tylenol / acetaminophen), Steroid Injections Right Hip Risk Factors for Total Joint Arthroplasty (TJA) Obesity normal High: BMI > 40 Moderate: BMI 30-40 Normal: BMI < 30 Diabetes normal High: A1C > 8 Moderate: A1C 7-8 Normal: A1C < 7 Smoking normal High: Current smoker Normal: Non smoker Anemia High Risk High: Hgb < 13 (men) N/A: Hgb >= 13 (men) Nutritional Status normal High: Alb<3.4, or prealb<15, or serum transferrin<200, or total lymphocyte count<1500 Normal: normal labs COPD normal High: dx of COPD Normal: no dx of COPD MRSA normal High: dx of MRSA or positive lab test Normal: no MRSA CKD normal High: eGFR<60 Moderate: eGFR 60-89 Normal: eGFR>90 Hx of DVT / PE normal High: dx of DVT / PE Normal: no dx of DVT / PE Narcotics Use normal High:NarxCare >=300 Moderate: 100-299 Normal: 0-99 KATYA normal High: dx of KATYA N/A: no dx of KATYA Coagulation High Risk High:PT Sec>13, or PT INR>1.3, or APTT>32.4, or Plt ct<150k Moderate: on anticoag but none of the above Normal: none Anemia Hemoglobin (g/dL) Date Value 01/11/2024 11.9 04/02/2023 13.3 08/31/2021 14.8 07/15/2021 13.5 Coagulation Latest Ref Rng & Units 04/12/2008 Coag/Hyper Coag Labs PT INR 0.8 - 1.7 1.0 PT Sec 10.0 - 14.0 sec 12.2 Latest Ref Rng & Units 01/08/2023 04/02/2023 01/11/2024 Hemoglobin and Platelets Hemoglobin 13.0 - 17.0 g/dL 14.1 13.3 11.9 Platelet Count 150 - 400 k/uL 89 78 96 Other Risk Factors Heart Disease PHYSICAL EXAM There were no vitals taken for this visit. All other systems deferred. GENERAL: Appears healthy, well-nourished, no deformities. HABITUS: Normal GAIT: Antalgic to the right and Ambulatory Aid: a cane HIP EXAM: Right: ROM: Extension: slight flexion contracture Flexion: 90 degrees Internal Rotation: 10 degrees External Rotation: 20 degrees Abduction: 20 degrees Adduction: 15 degrees Strength: Abduction 5/5 and Flexion 5/5 Palpation: Tenderness over right greater trochanter Log roll: painful. Straight leg raise: Positive, reproducing hip symptoms Neurovascular Status: Sensation Intact, Moves foot and ankle up & down, and 2+ dorsalis pedis DATA: Diagnostic tests reviewed for today's visit: Right hip X-Ray: Severe degenerative changes and Complete loss of superior joint space I spent a total of 30 minutes on the date of the service which included preparing to see the patient, [id number] patient care, completing clinical documentation, obtaining and/or reviewing separately obtained history, performing a medically appropriate examination, counseling and educating the pat ient/family/caregiver, ordering medications, tests, or procedures, independently interpreting results (not separately reported), communicating results to the patient/family/caregiver, and care coordination (not separately reported). SIGNATURE: Asif Gonzales PA-C PATIENT NAME: Angie Dutton DATE: February 26, 2024 TIME: 1:48 PM documented in this encounterThe [facility]07-05-[facility]24 History of Present illness Narrative* Belle Smalls, RT(R) - 02/26/2024 1:40 PM EDT Radiology Service Progress Note PATIENT NAME: Angie Dutton DATE OF SERVICE: February 26, 2024 TIME: 1:37 PM PATIENT IDENTITY VERIFICATION COMPLETED USING TWO (2) IDENTIFIERS: Name and Date of confirmedby patient verbally. FALL SCREENING: Has the patient had 2 falls in the last year or 1 fall with injury or currently using an Ambulatory Assistive Device (Walker, Cane, Wheelchair, Crutches, etc.)? Yes, Patient High Riskfor Falls What interventions were put in place to prevent falls during this visit? Offered Assistance with Transfers/Clothing and Increased Observations by Caregivers PATIENT GENDER DATA: Male PATIENT RELEVANT IMPLANT DATA REVIEWED: Not Applicable PATIENT PRESENTS WITH AN IMPLANTABLE OR ATTACHED GAS TREATER: No RADIOLOGY DEPARTMENT: General X-ray: Exam(s) Completed: Pelvis X-Ray: Pelvis with Hip Right PERIPHERAL IV DATA: Not applicable SIGNED BY: RT Nathalie(R) February 26, 2024 1:37 PM documented in this encounterThe [facility]07-05-2024 NoteAd[facility]07-02-2024 History of Present illness Narrative* Lizeth Saini PA- C - 02/23/2024 11:20 AM EDT 83 year old male with c/o here for follow up [place]zbieta had fractured leg, in [facility] Pain in right groin pain, and hurts in upper leg muscles. Shifts weight to left, now left calf is starting to hurt. Didn't care for Dr. Ramos. 3 injections one at [place], 2 at [facility]. Helped each time. Can walk in house and yard without a cane. More trouble when sits and then gets up. Seems better with increased activity. Sitting for a long time makes it hurt worse. Has felt heart racing a few times No chest pain, SOB, dyspnea, orthopnea, racing or irregular heartbeats, palpitations, syncopal sx, leg swelling, nausea, diaphoresis or heartburn. Takes Tylenol Arthritis 2 pills at bedtime which helps Seeing ortho on 02/26/2024 for this reason Pees a lot, every 2h in day, nocturia x 4 Tired all the time. Urine flow much better after tamsulosin started Had one night without getting up At most 3 times but much better than what it was. US bladder showed no concerning residual. HISTORIES FAMILY HISTORY Problem Relation Age of Onset Heart Mother Hypertension Mother Heart Father Heart Sister Heart Brother Stroke Sister Colon Cancer No Family History 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 PAST SURGICAL HISTORY Procedure Laterality Date ARTHROSCOPY KNEE DIAGNOSTIC W/WO SYNOVIAL BX SPX 2000 both COLONOSCOPY FLX DX W/COLLJ SPEC WHEN PFRMD 2001 Colonoscopy COLONOSCOPY FLX DX W/COLLJ SPEC WHEN PFRMD 07/13/2014 Colonoscopy COLONOSCOPY GEN ANES 11/26/2020 CORONARY ARTERY BYP W/VEIN & ARTERY GRAFT 3 VEIN 1981 CABG, three grafts EGD 11/26/2020 EGD 02/14/2021 EYE SURGERY HX FOOT SURGERY HX Left HEART SURGERY HX NEUROPLASTY &/TRANSPOS MEDIAN NRV CARPAL TUNNE 1998 Carpal tunnel decomp bilateral PAST SURGICAL HISTORY OF surgery on umbilicus due to bleeding PAST SURGICAL HISTORY OF 1961 umbical mass resection SIGMOIDOSCOPY FLX DX W/COLLJ SPEC BR/WA IF PFRMD 08/29/2004 Sigmoidoscopy TONSILLECTOMY HX Social History Tobacco Use Smoking status: Former Years: 29 Types: Cigarettes Start date: 08/24/1955 Quit date: 08/24/1984 Years since quittin.5 Smokeless tobacco: Never Tobacco comments: QUIT at age 44, started at 15 Vaping Use Vaping Use: Never used Substance Use Topics Alcohol use: Not Currently Drug use: Never ACTIVE PROBLEM LIST Spinal Stenosis, Lumbar Region, Without Neurogenic Claudication Thoracic Or Lumbosacral Neuritis Or Radiculitis, Unspecified Lumbosacral Spondylosis Without Myelopathy Essential Hypertension, Benign Mixed Hyperlipidemia Coronary Atherosclerosis Insomnia, Unspecified Esophageal Reflux Impaired Fasting Glucose Allergic Rhinitis, Cause Unspecified Elevated Serum Creatinine Serum Calcium Elevated Atherosclerosis of [place] Coronary Artery of [place] Heart With Stable Angina Pectoris (Hcc) Tia (Transient Ischemic Attack) Chronic Right Hip Pain Pain of Right Calf Stage 3a Chronic Kidney Disease (Hcc) Iron Deficiency Anemia Chronic Itp (Idiopathic Thrombocytopenia) (Hcc) Right Groin Pain Hypertensive Kidney Disease With Stage 3a Chronic Kidney Disease (Hcc) Bilateral Carotid Artery Stenosis Current Outpatient Medications Medication Sig Dispense Refill pantoprazole DR (PROTONIX) 20 mg tablet Take 2 tablets by mouth once daily. 180 tablet 1 gabapentin (NEURONTIN) 400 mg capsule Take 1 capsule by mouth two times a day for 180 days. 180 capsule 1 tamsulosin (FLOMAX) 0.4 mg Take 1 capsule by mouth daily at bedtime. 30 capsule 5 simvastatin (ZOCOR) 40 mg tablet Take 1 tablet by mouth daily at bedtime. 90 tablet 3 metoprolol succinate ER (TOPROL XL) 50 mg 24 hr tablet Take 0.5 tablets by mouth every afternoon. 90 tablet 3 ELIQUIS 5 mg tab(s) Take 1 tablet by mouth every 12 hours. 180 tablet 3 nitroglycerin sublingual (NITROQUICK) 0.4 mg SL tablet Dissolve 1 tablet under the tongue as directed. DISSOLVE ONE(1) TABLET UNDER THE TOUNGUE NEEDED FOR CHEST PAIN,EVERY 5 MIN X3 25 tablet 0 cyclobenzaprine (FLEXERIL) 5 mg tablet Take 1 tablet by mouth two times a day as needed. 180 tablet1 ezetimibe (ZETIA) 10 mg tablet Take 1 tablet by mouth once daily. 90 tablet 3 traZODone (DESYREL) 50 mg tablet Take 1 tablet by mouth daily at bedtime. 90 tablet 3 isosorbide mononitrate ER (IMDUR) 30 mg 24 hr tablet Take 0.5 tablets by mouth once daily. 45 tablet 3 clopidogrel (PLAVIX) 75 mg tablet Take 1 tablet by mouth once daily. 90 tablet 3 acetaminophen 650 mg CR tablet Take 1,300 mg by mouth two times a day. Uses ad needed No current facility-administered medications for this visit. RSV Vaccine(1 - 1-dose 60+ series) Never done Shingrix Vaccine(2 of 3) due on 04/10/2011 DTaP,Tdap,Td Vaccine(3 - Td or Tdap) due on 03/13/2021 Advance Directive Discussion due on 08/24/2023 Behavioral Health Screening Never done Covid-19 Vaccine(2022-24 season) due on 09/29/2023 EXAM: BP 140/80 Pulse 81 Resp 20 Wt 74.8 kg (165 lb) SpO2 96% BMI 25.46 kg/m Pleasant elderly in no acute distress. Alert and oriented all spheres. Normal affect and cognition.Speech normal. No deficits to learning or comprehension.talks continuously through visit Skin warm, dry, pink to lips and nailbeds. Normal turgor. Respirations regular and unlabored. HEENT: NCAT. No scleral icterus or conjunctival injection. TM's clear. Nose and oropharynx free from injection or lesion. Oral membranes moist and pink. No cervical lymph nodes. Thyroid non-tender, no masses, or enlargement. Carotids pulses 2+/4+ without bruits. No JVD with HOB at 30 degrees. Chest is normal shape. Lungs are clear to all [place] with good air exchange through out. HRRR without irregularity murmur or gallop. No lifts, heaves, or rubs. Pain in right hip and upper leg with standing but once up and walking pain is better, Extrem: no clubbing or cyanosis. Edema: none. Extremities are warm and pink with prompt capillary refill. ASSESSMENT/PLAN: 1. 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) - ICD9: 414.01, 413.9, ICD10: I25.118 (primary diagnosis) Stable, asymptomatic, BP in good range. 2. Essential hypertension, benign - ICD9: 401.1, ICD10: I10 - Controlled - Continue current medications - Recommend home blood pressure monitoring, to bring results to next visit - Encouraged sodium restriction, DASH or Mediterranean diet - Recommend regular aerobic exercise 3. Bilateral carotid artery stenosis - ICD9: 433.10, 433.30, ICD10: I65.23 stable 4. New onset atrial fibrillation (HCC) - ICD9: 427.31, ICD10: I48.91 Rate controlled, no failure or ischemic sx 5. BPH with obstruction/lower urinary tract symptoms - ICD9: 600.01, 599.69, ICD10: N40.1, N13.8 Improved with medications. 6. Chronic right hip pain - ICD9: 719.45, 338.29, ICD10: M25.551, G89.29 7. Spinal stenosis, lumbar region, without neurogenic claudication - ICD9: 724.02, ICD10: M48.061 Following with ortho for additional injections Lizeth Saini PA-C documented in [facility] encounterThe [facility] History of Present illness Narrative* Beryl Kuhn RN - 02/17/2024 4:16 PM EDT CDM Telephonic Outreach Provider Action/FYI Contacted for: Routine Telephonic Outreach Contact made with patient: Yes Patient identified by name and date of . Discussed care with patient Are you experiencing any new or worsening symptoms you need to talk about today? No Disease Specific Do you check your blood pressure at home? Yes, Enter readings: not reported Do you have new or worsening shortness of breath with activity? No Do you feel like you are dehydrated for any reason, including not being able to eat or drink normally, or having less urine/much darker urine than normal for you? No Do you check your daily weight at home? Yes, Have you noticed a sudden gain in weight greater than three pounds in a day or three pounds in a week? No Based on assessment coordinator, the following disposition is advised: No symptoms or symptoms present, not severe. Routed to: No Action Needed EDWARDO Education Provided this Outreach: No Beryl Kuhn RN February 17, 2024 4:23 PM Care Coordination next call- CKD HTN Last CDM outreach contact: 02/17/24 - No CDM concerns. Legs hurting; chronic problem. - New Ortho appt 02/25. 02/23/24- PCP appt Baseline: 10/23/23 ADL, FALL, GOAL due: 05/08/24. Chronic disease goal - 03/09/23 -CKD -reviewed CDK zones. 07/03/23 - HTN. 07/03/23- Reviewed renal diet and HTN goals SDOH transportation and food insecurity completed: 01/07/23 Recent Admit, ED, Observation: 09/25- Admit [place] - Afib DC 09/26 documented in this encounterThe [facility]06-14-[facility]24 Telephone encounter Note * Telephone Encounter - Dedra Mejia MA - 02/05/2024 9:30 AM EDT Patient informed and verbalized understanding. Dedra Mejia MA [facility]06-14-2024 Miscellaneous Notes* Telephone Encounter - Dedra Mejia MA - 02/05/2024 9:30 AM EDT Patient informed and verbalized understanding. Dedra Mejia MA * Telephone Encounter - Todd Seth MD - 02/05/2024 9:03 AM EDT Let him know his stool test was ok. documented in this encounterThe [facility]06-14-[facility]24 Telephone encounter Note * Telephone Encounter - Todd Seth MD - 02/05/2024 9:03 AM EDT Let him know his stool test was ok. [facility]06-03-[facility] Telephone encounter Note* Telephone Encounter - Marychuy Bo MA - 01/25/2024 11:22 AM EDT Patient was made aware of the results. Patient verbalizes understanding. Marychuy Bo Ma [facility]06-03-2024 Miscellaneous Notes* Telephone Encounter - Marychuy Bo MA - 01/25/2024 11:22 AM EDT Patient was made aware of the results. Patient verbalizes understanding. Marychuy Bo Ma * Telephone Encounter - Valery Quinteros APRN.CNS - 01/25/2024 10:00 AM EDT Please let patient know that bladder ultrasound showed enlarged prostate with minimal outflow obstruction. Patient is able to empty bladder fairly well. documented in this encounterThe [facility]06-03-2024 Telephone encounter Note * Telephone Encounter - Valery Quinteros APRN.CNS - 01/25/2024 10:00 AM EDT Please let patient know that bladder ultrasound showed enlarged prostate with minimal outflow obstruction. Patient is able to empty bladder fairly well. [facility] Work Phone: 1(708) 174-643105-30-2024 History of Present illness Narrative* Nya García RDMS - 01/21/2024 1:00 PM EDT Radiology Service Progress Note PATIENT NAME: Angie Dutton DATE OF SERVICE: January 21, 2024 TIME: 2:24 PM PATIENT IDENTITY VERIFICATION COMPLETED USING TWO (2) IDENTIFIERS: Name and Date of confirmedby patient verbally. FALL SCREENING: Has the patient had 2 falls in the last year or 1 fall with injury or currently using an Ambulatory Assistive Device (Walker, Cane, Wheelchair, Crutches, etc.)? Yes, Patient High Riskfor Falls What interventions were put in place to prevent falls during this visit? Offered Assistance with Transfers/Clothing, Instructed Patient to Remain Seated (Not on Exam Table) Until Exam, Increased Observations by Caregivers, and Escorted to/from Restroom PATIENT GENDER DATA: Male PATIENT RELEVANT IMPLANT DATA REVIEWED: Not Applicable PATIENT PRESENTS WITH AN IMPLANTABLE OR ATTACHED GAS TREATER: No RADIOLOGY DEPARTMENT: Ultrasound PERIPHERAL IV DATA: Not applicable SIGNED BY: Nya García RDMS January 21, 2024 2:24 PM documented in this encounterThe [facility]05-30-2024 History of Present illness Narrative* Beryl Kuhn RN - 01/21/2024 11:12 AM EDT CDM Telephonic Outreach Provider Action/FYI Contacted for: Routine Telephonic Outreach Contact made with patient: Yes Patient identified by name and date of . Discussed care with patient Are you experiencing any new or worsening symptoms you need to talk about today? No Disease Specific Do you check your blood pressure at home? Yes, Enter readings: not reported Do you have new or worsening shortness of breath with activity? No Do you feel like you are dehydrated for any reason, including not being able to eat or drink normally, or having less urine/much darker urine than normal for you? No Do you check your daily weight at home? Yes, Have you noticed a sudden gain in weight greater than three pounds in a day or three pounds in a week? No Based on assessment coordinator, the following disposition is advised: No symptoms or symptoms present, not severe. Routed to: No Action Needed EDWARDO Education Provided this Outreach: No Beryl Kuhn RN January 21, 2024 11:45 AM Care Coordination next call- CKD HTN Last CDM outreach contact: 12/21/23 - No CDM concerns. Legs hurting; chronic problem. - New Ortho appt 02/25. US Pelvis today. Reminded pt.Pt has appt in Mar with PCP, but said PCP told him to come back in 1 month. He will contact office for appt Baseline: 10/23/23 ADL, FALL, GOAL due: 05/08/24. Chronic disease goal - 03/09/23 -CKD -reviewed CDK zones. 07/03/23 - HTN. 07/03/23- Reviewed renal diet and HTN goals SDOH transportation and food insecurity completed: 01/07/23 Recent Admit, ED, Observation: 09/25- Admit [place] - Afib DC 09/26 documented in this encounterThe [facility]05-29-[facility]24 Telephone encounter Note * Telephone Encounter - Madison Ayala - 01/20/2024 2:33 PM EDT Patient has been identified by name and date of : Patient phones for refill(s): Requested Prescriptions Pending Prescriptions Disp Refills pantoprazole DR (PROTONIX) 20 mg tablet 180 tablet 1 Sig: Take 2 tablets by mouth once daily. Date of last office visit in primary care: 01/07/2024 Date of next office visit in primary care: 04/05/2024 Please advise. Thank you. Madison Ayala. [facility]05-29-2024 Miscellaneous Notes* Telephone Encounter - Madison Ayala - 01/20/2024 2:33 PM EDT Patient has been identified by name and date of : Patient phones for refill(s): Requested Prescriptions Pending Prescriptions Disp Refills pantoprazole DR (PROTONIX) 20 mg tablet 180 tablet 1 Sig: Take 2 tablets by mouth once daily. Date of last office visit in primary care: 01/07/2024 Date of next office visit in primary care: 04/05/2024 Please advise. Thank you. Madison Ayala. documented in this encounterThe [facility]05-24-2024 Telephone encounter Note * Telephone Encounter - Lizeth Hodgson RN - 01/15/2024 11:27 AM EDT Phoned patient and given provider's message below with verbalized understanding. Patient agreeable.Given instructions to also, per patient request, and verbalized understanding. [facility]05-24-2024 Miscellaneous Notes* Telephone Encounter - Lizeth Hodgson RN - 01/15/2024 11:27 AM EDT Phoned patient and given provider's message below with verbalized understanding. Patient agreeable.Given instructions to also, per patient request, and verbalized understanding. * Telephone Encounter - Lizeth Saini PA-C - 01/15/2024 10:37 AM EDT Please advise labs demonstrate a drop in his white blood cell count, hemoglobin and hematocrit. Platelet count remains mildly low, actually increased a little this time. I would like to check stool for blood to make sure he is not bleeding as he has had significant complications in the past. Kidney function and electrolytes are remaining stable in acceptable ranges. Cholesterol also looks good. Recheck blood count in 1 month, complete IFOBT as soon as possible. Telephone on 01/15/24 IMMUNOCHEMICAL FECAL OCCULT BLOOD TEST COMPLETE BLOOD COUNT AND DIFFERENTIAL ThanksiAdan PA-C documented in this encounterThe [facility]05-24-2024 Telephone encounter Note * Telephone Encounter - Lizeth Saini PA-C - 01/15/2024 10:37 AM EDT Please advise labs demonstrate a drop in his white blood cell count, hemoglobin and hematocrit. Platelet count remains mildly low, actually increased a little this time. I would like to check stool for blood to make sure he is not bleeding as he has had significant complications in the past. Kidney function and electrolytes are remaining stable in acceptable ranges. Cholesterol also looks good. Recheck blood count in 1 month, complete IFOBT as soon as possible. Telephone on 01/15/24 IMMUNOCHEMICAL FECAL OCCULT BLOOD TEST COMPLETE BLOOD COUNT AND DIFFERENTIAL Thanks, Aidan Saini PA-C [facility]05-16-2024 Instructions* Patient Instructions* Lizeth Saini PA-C - 01/07/2024 12:31 PM EDT [facility] Tamsulosin Hydrochloride, Oral What are other names for this medicine? Type of medicine: alpha bryan (enlarged prostate gland therapy) Generic and brand names: tamsulosin hydrochloride, oral; Flomax What is this medicine used for? This medicine is taken by mouth to: treat the symptoms of an enlarged prostate gland (benign prostatic hyperplasia) reduce the risk of urinary retention (not being able to urinate) reduce the chance you will need prostate surgery. It may also be used for other conditions determined by your healthcare provider. What should my healthcare provider know before I take this medicine? Before taking this medicine, tell your healthcare provider if you have ever had: an allergic reaction to any medicine low blood pressure kidney disease liver disease prostate cancer. vertigo or severe dizziness. How do I take it? Take your dose 30 minutes after the same meal each day. Follow your healthcare provider's directions exactly. Do not chew, crush, or open the capsules. Swallow them whole. If you miss a dose, take it as soon as you remember unless it is almost time for the next scheduleddose. In that case, skip the missed dose and take the next one as directed. Do not take double doses. If you are not sure of what to do if you miss a dose, or if you miss more than one dose, contact your healthcare provider. What should I watch out for? Caution: This medicine is for men only. This medicine does not protect you from prostate cancer. Continue to have screening exams as recommended by your healthcare provider. This medicine may cause impotence (trouble having and keeping an erection), decrease your sex drive, or reduce the amount of semen released during sexual intercourse. These effects are usually mild and temporary when they occur. Rarely, this medicine may cause a painful erection of the penis that will not return to normal. If this occurs, contact your healthcare provider or get medical care right away. It can lead to permanent erectile dysfunction if not treated. Do not give this medicine to anyone else. This medicine may make you dizzy or lightheaded. Do not drive or operate machinery unless you are fully alert. Be careful to avoid falling. You may feel dizzy or faint when you get up quickly after sitting or lying down. Getting up slowly may help. Also, drinking alcohol may make it worse. Do not drink alcohol unless your healthcare provider approves. If you need emergency care, surgery, or dental work, tell the healthcare provider you are taking this medicine. What are the possible side effects? Along with its needed effects, your medicine may cause some unwanted side effects. Some side effects may be very serious. Some side effects may go away as your body adjusts to the medicine. Tell yourhealthcare provider if you have any side effects that continue or get worse. Life-threatening (Report these to your healthcare provider right away. If you cannot reach your healthcare provider right away, get emergency medical care or call 911 for help): Allergic reaction (hives; itching; rash; trouble breathing; tightness in your chest; swelling of your lips, tongue, and throat). Serious (report these to your healthcare provider right away): Dizziness or fainting that continuesor gets worse, painful erection that does not go away, fast heartbeat, yellow skin or eyes, chest pain, vision problems. Other: Headache, weakness, runny nose, diarrhea, drowsiness, nausea, abnormal ejaculation, trouble sleeping. What products might interact with this medicine? When you take this medicine with other medicines, it can change the way this or any of the other medicines work. Nonprescription medicines, vitamins, natural remedies, and certain foods may also interact. Using these products together might cause harmful side effects. Talk to your healthcare provider if you are taking: ANAMARIA inhibitors such as benazepril (Lotensin), captopril (Capoten), enalapril (Vasotec), fosinopril (Monopril), lisinopril (Prinivil, Zestril), quinapril (Accupril) and ramipril (Altace) angiotensin receptor II blockers (ARBs) such as candesartan (Atacand), eprosartan (Teveten), irbesartan (Avapro), losartan (Cozaar, olmesartan (Benicar), telmisartan (Micardis) and valsartan (Diovan) alpha blockers such as prazosin (Minipress), doxazosin (Cardura), and terazosin (Hytrin) beta blockers such as atenolol (Tenormin), metoprolol (Toprol XL, Lopressor), sotalol (Betapace), and propranolol (Inderal) calcium channel blockers such as verapamil (Calan, Covera HS, Isoptin, Verelan), diltiazem (Cartia XT, Cardizem, Tiazac), and nifedipine (Adalat, Procardia) medicines to treat erectile dysfunction such as sildenafil (Viagra), tadalafil (Cialis), and vardenafil (Levitra) Keep a list of all your medicines (prescription, nonprescription, supplements, natural remedies, and vitamins) with you. Be sure that you tell all healthcare providers who treat you about all the products you are taking. How should I store this medicine? Store this medicine at room temperature. Keep the container tightly closed. Protect it from heat, high humidity, and bright light. This advisory includes selected information only and may not include all side effects of this medicine or interactions with other medicines. Ask your healthcare provider or pharmacist for more information or if you have any questions. Ask your pharmacist for the best way to dispose of outdated medicine or medicine you have not used.Do not throw medicine in the trash. Keep all medicines out of the reach of children. Do not share medicines with other people. Published by [employer]. This content is reviewed periodically and is subject to change as new health information becomes available. The information is intended to inform and educate and is not a replacement for medical evaluation, advice, diagnosis or treatment by a healthcare professional. Developed by [employer] Copyright 2007 [employer] and/or one of its subsidiaries. All Rights Reserved. Special Instructions: Use caution getting up especially at night, pause and make sure yuou have your bearing. Copyright [employer] 2007 [employer] Copyright 2008 [employer] All rights reserved. - www.[employer] documented in this encounterThe [facility]05-16-2024 History of Present illness Narrative* Lizeth Saini PA-C - 01/07/2024 12:04 PM EDT 83 year old male with c/o here for 3 month med follow up and review Pain in right groin pain, and hurts in upper leg muscles. Shifts weight to left, now left calf is starting to hurt. Didn't care for Dr. Ramos. 3 injections one at [place], 2 at [facility]. Has felt heart racing a few times No chest pain, SOB, dyspnea, orthopnea, racing or irregular heartbeats, palpitations, syncopal sx, leg swelling, nausea, diaphoresis or heartburn. Pees a lot, every 2h in day, nocturia x 4 Tired all the time. Compliant with medications, denies complications with any of the medicines currently. HISTORIES FAMILY HISTORY Problem Relation Age of Onset Heart Mother Hypertension Mother Heart Father Heart Sister Heart Brother Stroke Sister Colon Cancer No Family History 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 PAST SURGICAL HISTORY Procedure Laterality Date ARTHROSCOPY KNEE DIAGNOSTIC W/WO SYNOVIAL BX SPX 2000 both COLONOSCOPY FLX DX W/COLLJ SPEC WHEN PFRMD 2001 Colonoscopy COLONOSCOPY FLX DX W/COLLJ SPEC WHEN PFRMD 07/13/2014 Colonoscopy COLONOSCOPY GEN ANES 11/26/2020 CORONARY ARTERY BYP W/VEIN & ARTERY GRAFT 3 VEIN 1981 CABG, three grafts EGD 11/26/2020 EGD 02/14/2021 EYE SURGERY HX FOOT SURGERY HX Left HEART SURGERY HX NEUROPLASTY &/TRANSPOS MEDIAN NRV CARPAL TUNNE 1998 Carpal tunnel decomp bilateral PAST SURGICAL HISTORY OF surgery on umbilicus due to bleeding PAST SURGICAL HISTORY OF 2 umbical mass resection SIGMOIDOSCOPY FLX DX W/COLLJ SPEC BR/WA IF PFRMD 08/29/2004 Sigmoidoscopy TONSILLECTOMY HX Social History Tobacco Use Smoking status: Former Years: 29 Types: Cigarettes Start date: 08/24/1955 Quit date: 08/24/1984 Years since quittin.3 Smokeless tobacco: Never Tobacco comments: QUIT at age 44, started at 15 Vaping Use Vaping Use: Never used Substance Use Topics Alcohol use: Not Currently Drug use: Never ACTIVE PROBLEM LIST Spinal Stenosis, Lumbar Region, Without Neurogenic Claudication Thoracic Or Lumbosacral Neuritis Or Radiculitis, Unspecified Lumbosacral Spondylosis Without Myelopathy Essential Hypertension, Benign Mixed Hyperlipidemia Coronary Atherosclerosis Insomnia, Unspecified Esophageal Reflux Impaired Fasting Glucose Allergic Rhinitis, Cause Unspecified Elevated Serum Creatinine Serum Calcium Elevated Atherosclerosis of [place] 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 90 tablet 3 gabapentin (NEURONTIN) 400 mg capsule Take 1 capsule by mouth two times a day for 180 days. 180 capsule 1 metoprolol succinate ER (TOPROL XL) 50 mg 24 hr tablet Take 0.5 tablets by mouth every afternoon. 90 tablet 3 ELIQUIS 5 mg tab(s) Take 1 tablet by mouth every 12 hours. 180 tablet 3 nitroglycerin sublingual (NITROQUICK) 0.4 mg SL tablet Dissolve 1 tablet under the tongue as directed. DISSOLVE ONE(1) TABLET UNDER THE TOUNGUE NEEDED FOR CHEST PAIN,EVERY 5 MIN X3 25 tablet 0 cyclobenzaprine (FLEXERIL) 5 mg tablet Take 1 tablet by mouth two times a day as needed. [address] (PROTONIX) 20 mg tablet Take 2 tablets by mouth once daily. 180 tablet 1 ezetimibe (ZETIA) 10 mg tablet Take 1 tablet by mouth once daily. 90 tablet 3 traZODone (DESYREL) 50 mg tablet Take 1 tablet by mouth daily at bedtime. 90 tablet 3 isosorbide mononitrate ER (IMDUR) 30 mg 24 hr tablet Take 0.5 tablets by mouth once daily. 45 tablet 3 clopidogrel (PLAVIX) 75 mg tablet Take 1 tablet by mouth once daily. 90 tablet 3 acetaminophen 650 mg CR tablet Take 1,300 mg by mouth two times a day. Uses ad needed No current facility-administered medications for this visit. RSV Vaccine(1 - 1-dose 60+ series) Never done Shingrix Vaccine(2 of 3) due on 04/10/2011 DTaP,Tdap,Td Vaccine(3 - Td or Tdap) due on 03/13/2021 Advance Directive Discussion due on 08/24/2023 Behavioral Health Screening Never done Covid-19 Vaccine(2022- season) due on 09/29/2023 EXAM: BP 132/80 Pulse 91 Resp 20 Wt 76.7 kg (169 lb) SpO2 98% BMI 26.08 kg/m Pleasant elderly in no acute distress. Alert and oriented all spheres. Normal affect and cognition.Speech normal. No deficits to learning or comprehension. Significant pain distress getting up from chair and on and off table, holding his left thigh, crying, yelling out at one point. Skin warm, dry, pink to lips and nailbeds. Normal turgor. Respirations regular and unlabored. HEENT: NCAT. No scleral icterus or conjunctival injection. TM's clear. Nose and oropharynx free from injection or lesion. Oral membranes moist and pink. No cervical lymph nodes. Thyroid non-tender, no masses, or enlargement. Carotids pulses 2+/4+ without bruits. No JVD with HOB at 30 degrees. Chest is normal shape. Lungs are clear to all [place] with good air exchange through out. HRRR without murmur or gallop. No lifts, heaves, or rubs. Extrem: no clubbing or cyanosis. Edema: none. Extremities are warm and pink with prompt capillary refill. Latest Ref Rng 01/07/2024 GLUCOSE UA (POCT) Negative mg/dL Negative BILIRUBIN UA (POCT) Negative Negative KETONE UA (POCT) Negative mg/dL Negative SPECIFIC GRAVITY UA (POCT) 1.005 - 1.030 <=1.005 ! HEMOGLOBIN/BLOOD UA (POCT) Negative Trace-lysed ! PH UA (POCT) 4.5 - 8.0 5.5 PROTEIN UA (POCT) Negative mg/dL Negative UROBILINOGEN UA (POCT) Normal E.U./dL 0.2 NITRITE UA (POCT) Negative Negative LEUKOCYTES UA (POCT) Negative Negative COLOR UA (POCT) Yellow CLARITY UA (POCT) Clear ASSESSMENT/PLAN: 1. Arthritis of right hip - ICD9: 716.95, ICD10: M16.11 (primary diagnosis) Patient does not want to see Dr. Ramos, will forward consult to Offered pain management, patient feels this has not helped. Does not want surgery even though we discussed the fact that he has moderate to severe rise in his hip. - CONSULT TO ORTHOPAEDICS - PREDNISONE 10 MG TABLET 2. BPH with obstruction/lower urinary tract symptoms - ICD9: 600.01, 599.69, ICD10: N40.1, N13.8 - TAMSULOSIN 0.4 MG CAPSULE - US PELVIS BLADDER - URINE OB DIP B/O Educated on new medication administration, warnings and cautions, common side effects, anticipated duration or therapy, and instructions on cessation management to avoid risks if stops medication. Patient choice was discussed in shared decision making. Follow-up 3 months Did not have time to complete his other chronic problems review Lizeth Saini PA-C documented [facility]The [facility] History of Present illness Narrative* Beryl Kuhn RN - 12/21/2023 3:23 PM EDT CDM Telephonic Outreach Provider Action/FYI Contacted for: Routine Telephonic Outreach Contact made with patient: Yes Patient identified by name and date of . Discussed care with patient Are you experiencing any new or worsening symptoms you need to talk about today? No Disease Specific Do you check your blood pressure at home? Yes, Enter readings: not reported Do you have new or worsening shortness of breath with activity? No Do you feel like you are dehydrated for any reason, including not being able to eat or drink normally, or having less urine/much darker urine than normal for you? No Do you check your daily weight at home? Yes, 163.5 lbs Have you noticed a sudden gain in weight greater than three pounds in a day or three pounds in a week? No Based on assessment coordinator, the following disposition is advised: No symptoms or symptoms present, not severe. Routed to: No Action Needed EDWARDO Education Provided this Outreach: No Beryl Kuhn RN December 21, 2023 3:29 PM Care Coordination next call- CKD HTN Last CDM outreach contact: 12/21/23 - No CDM concerns. Legs hurting; chronic problem. Pt to speak to PCP at next visit 01/06 Baseline: 10/23/23 ADL, FALL, GOAL due: 05/08/24. Chronic disease goal - 03/09/23 -CKD -reviewed CDK zones. 07/03/23 - HTN. 07/03/23- Reviewed renal diet and HTN goals SDOH transportation and food insecurity completed: 01/07/23 Recent Admit, ED, Observation: 09/25- Admit [facility] - Afib DC 09/26 documented in this encounterThe [facility]04[facility] Miscellaneous Notes* Telephone Encounter - Anastasia Lance - 12/04/2023 9:15 AM EDT Patient has been identified by name and date of : Yes, Patient phones for refill(s): Requested Prescriptions Pending Prescriptions Disp Refills simvastatin (ZOCOR) 40 mg tablet 90 tablet 3 Sig: Take 1 tablet by mouth daily at bedtime. gabapentin (NEURONTIN) 400 mg capsule 180 capsule 1 Sig: Take 1 capsule by mouth two times a day for 180 days. Date of last office visit in primary care: 10/08/2023 Date of next office visit in primary care: 01/07/2024 Please advise. Thank you. Anastasia Lance. documented in this encounterThe [facility]04-[facility] Miscellaneous Notes* Telephone Encounter - Mireya Antonio RN - 11/23/2023 12:23 PM EDT PAMELA 10/29/23 with Brittani Mace CNP- PAF - new dx - found to have AF RVR at admission to [facility] - outside records reviewed in care everywhere - converted to SR on admission - echo on admission normal EF, grade II DD, moderate LAE. - started on Toprol 50 mg daily and Eliquis 5 mg BID - regular on exam today - Will decrease Toprol to 25 mg daily as he is concerned with low BP readings - check zio for AF burden and rate control Zio 11/17/23- Enrollment Dates: 10/29/2023-11/12/2023 Patient had a min HR of 50 bpm, max HR of 235 bpm, and avg HR of 78 bpm. Predominant underlying rhythm was Sinus Rhythm. 86 Supraventricular Tachycardia runs occurred, the run with the fastest interval lasting 5 beats with a max rate of 235 bpm, the longest lasting 16 beats with an avg rate of 108 bpm. Isolated SVEs were rare (<1.0%), SVE Couplets were rare (<1.0%), and SVE Triplets were rare (<1.0%). Isolated VEs were rare (<1.0%), VE Couplets were rare (<1.0%), and no VE Triplets were present. Ventricular Bigeminy was present. No symptoms submitted Pt inquiring on results/recommendation of Zio. documented in this encounterThe [facility]04-[facility] History of Present illness Narrative* Beryl Kuhn RN - 11/23/2023 9:49 AM EDT CDM Telephonic Outreach Provider Action/FYI Contacted for: Routine Telephonic Outreach Contact made with patient: Yes Patient identified by name and date of . Discussed care with patient Are you experiencing any new or worsening symptoms you need to talk about today? No Disease Specific Do you check your blood pressure at home? Yes, Enter readings: 102 58 Do you have new or worsening shortness of breath with activity? No Do you feel like you are dehydrated for any reason, including not being able to eat or drink normally, or having less urine/much darker urine than normal for you? No Do you check your daily weight at home? Yes, Have you noticed a sudden gain in weight greater than three pounds in a day or three pounds in a week? No Based on assessment coordinator, the following disposition is advised: No symptoms or symptoms present, not severe. Routed to: No Action Needed EDWARDO Education Provided this Outreach: No Beryl Kuhn RN November 23, 2023 10:10 AM Care Coordination next call- CKD HTN Last CDM outreach contact: 11/23/23 - 10/29/23- Cards- decreased Metoprolol in half; fine wire drawer ordered- Pt feeling better; not dizzy or light headed Still tired. Wants the results of fine wire drawer. Gave Brittani Mace office # Baseline: 10/23/23 ADL, FALL, GOAL due: 05/08/24. Chronic disease goal - 03/09/23 -CKD -reviewed CDK zones. 07/03/23 - HTN. 07/03/23- Reviewed renal diet and HTN goals SDOH transportation and food insecurity completed: 01/07/23 Recent Admit, ED, Observation: 09/25- Admit [facility] - Afib DC 09/26 documented in this encounterThe [facility]03-[facility] Nurse Note* Jayne Amador Ma - 10/29/2023 2:48 PM EST EVENT MONITOR DISPOSABLE PATCH INSTRUCTIONS Patient Name: Angie D[facility] Number: [id number] Skin prepped and cleansed with alcohol Patch secured to prepped area Monitor Activated Serial #: [id number] FOR 14 DAYS Patient Instructed: Prescribed order timeframe Bathing guidelines Usage of event button and diary documentation Return of monitor at the end of prescribed order Call with problems [phone] or [phone]. [phone] Patient expresses a good understanding of instructions Jayne Amador Ma documented in this encounterThe [facility]03-07-[facility]24 Instructions* Patient Instructions* Brittani Mace APRN.CNP - 10/29/2023 2:17 PM EST You were newly diagnosed with atrial fibrillation when you are at [facility]. You were started on Eliquis to protect you from stroke and Metoprolol to slow the heart rate down. You sound like you are in normal rhythm today Decrease metoprolol to half tablet daily. 2 week heart monitor to look for average heart rate and burden of atrial fibrillation Based on the heart monitor results I may make some medication changes. Your blood pressure is in an acceptable range >>> make sure you are staying hydrated. Echo at [facility] shows that your heart is strong NO other testing needed at this time documented in this encounterThe [facility]03-[facility] History of Present illness Narrative* Brittani Mace APRN.CNP - 10/29/2023 2:02 PM EST Images from the original note were not included. [facility] [place] [facility] Department of Cardiovascular Medicine SECTION OF CLINICAL CARDIOLOGY OUTPATIENT VISIT DATE October 29, 2023 OUTPATIENT VISIT TYPE ESTABLISHED Elements of this note, including but not limited to HPI, ROS, Physical Exam, Assessment and Plan were copied and pasted from previous office visit notes completed within our department. Updates have been made where appropriate/noted and reflect current exam and medical decision making from date of this visit. Patient Name: Angie Dutton : 1940 PRIMARY CARE PHYSICIAN: Lizeth Saini PA-C CHIEF COMPLAINT: Patient presents with: Follow Up: Room 4 Concerned about BP's Hospital follow up Interval Hx: Mr. Dutton comes for a follow up visit. The last office visit visit with Dr. Tavares was 03/03/2023. Patient with 1 hospitalizations or ER visits since last OV. Had recent hospitalization to [facility]. Had high BP prior to admission. Newly dx with AF >>> started on Metoprolol Succinate 50 mg daily and Eliqius 5 mg BID on admission Since last office visit patient has been feeling ok. Worried about his BP >> has been as low as 99 systolic >> asymptomatic. Has knee injection the day before hospitaization Had no idea he was out of rhythm - no palps Descibed a different feeling in his heart Has not had that feeling again since discharge Drinking enough water Eating good Sleeping ok No SOB NO LE edema NO syncope No falls Echo on admission shows EF 65%, grade II DD, No WMA. Moderate LAE. No valve abnormalities. IMPRESSION/PLAN: PAF - new dx - found to have AF RVR at admission to [facility] - outside records reviewed in care everywhere - converted to SR on admission - echo on admission normal EF, grade II DD, moderate LAE. - started on Toprol 50 mg daily and Eliquis 5 mg BID - regular on exam today - Will decrease Toprol to 25 mg daily as he is concerned with low BP readings - check zio for AF burden and rate control Coronary artery disease involving [place] coronary artery of [place] heart without angina pectoris - s/p CABGx 3 1985, PCI stent - 2007 - plavix 75 mg daily, Toprol 50 daily, simvastatin 40 mg and Imdur 15 mg daily - Continue secondary prevention Essential hypertension, benign - optimal control today >> patient voiced concerns about lower BP since starting Toprol for his AF. - Encouraged dietary sodium restriction/DASH diet - Recommended regular aerobic exercise. - Reviewed risks of HTN and principles of treatment - Goal of BP <130/80 Mixed hyperlipidemia - optimal control with LDL 59, 03/2023 and goal at < 70 - Continue current medication (simvastatin 40 mg, ezetimibe 10 mg) TIA (transient ischemic attack) - ? Related to undiagnosed AF - on Eliquis, Plavix and BB now Patient instructions: You were newly diagnosed with atrial fibrillation when you are at [facility]. You were started on Eliquis to protect you from stroke and Metoprolol to slow the heart rate down. You sound like you are in normal rhythm today Decrease metoprolol to half tablet daily. 2 week heart monitor to look for average heart rate and burden of atrial fibrillation Based on the heart monitor results I may make some medication changes. Your blood pressure is in an acceptable range >>> make sure you are staying hydrated. Echo at [facility] shows that your heart is strong I spent a total of 30 minutes on the date of the service which included preparing to see the patient, [id number] patient care, completing clinical documentation, performing a medically appropriate examination, counseling and educating the patient/family/caregiver, ordering medications, tests, or p rocedures, communicating with other HCPs (not separately reported), and communicating results to the patient/family/caregiver. Thank you very much for allowing me to assist in the care of Angie Dutton. The above information was discussed at length and detail with the patient who verbalized an understanding of the plan and was given ample opportunity to ask questions. The appropriate follow up has been arranged. I have advised the patient to contact me if any questions/problems arise prior to the follow up. Brittani Mace APRN.[facility] Cardiology Nurse Practitioner Section of Regional Cardiology [facility] Dept of Cardiovascular Medicine [facility] [place] [address] [place] [address] Office Office October 29, 2023 2:02 PM This note was partially generated using [employer] voice recognition system and may contain errors related to that system including grammar, punctuation, spelling, and words that may be inappropriate. CARDIAC STUDIES: LV Ejection Fraction (%) Date Value 09/23/2017 50 11/08/2013 60 09/22/2012 60 07/31/2005 60 Last EKG Result Conclusion ECG COMPLETE Collected: 03/03/2023 1:20 PM (Final result) Impression: NORMAL SINUS RHYTHM LEFT AXIS DEVIATION Confirmed by DANIELLE HERNANDEZ DO ([id number]) on 03/17/2023 3:16:29 PM LABS: Sodium (mmol/L) Date Value 10/08/2023 141 04/02/2023 139 08/31/2021 142 10/24/2020 142 Potassium (mmol/L) Date Value 10/08/2023 4.7 04/02/2023 4.4 08/31/2021 4.9 10/24/2020 4.8 BUN (mg/dL) Date Value 10/08/2023 15 04/02/2023 12 01/08/2023 16 07/24/2022 14 08/31/2021 12 10/24/2020 12 01/30/2020 16 06/23/2019 14 Creatinine (mg/dL) Date Value 10/08/2023 1.45 04/02/2023 1.36 01/08/2023 1.39 07/24/2022 1.38 08/31/2021 1.26 10/24/2020 1.37 01/30/2020 1.30 06/23/2019 1.32 Magnesium (mg/dL) Date Value 04/02/2023 2.0 10/24/2020 2.2 11/11/2018 2.2 Hemoglobin (g/dL) Date Value 04/02/2023 13.3 01/08/2023 14.1 08/31/2021 14.8 07/15/2021 13.5 No results found for: PROBNP No results found for: HSTNT Cholesterol, Total (mg/dL) Date Value 04/02/2023 135 08/08/2021 195 HDL Cholesterol (mg/dL) Date Value 04/02/2023 60 08/08/2021 60 Triglyceride (mg/dL) Date Value 04/02/2023 80 08/08/2021 125 LDL Cholesterol (mg/dL) Date Value 04/02/2023 59 08/08/2021 110 TSH Date Value 04/02/2023 2.100 mIU/L 07/15/2021 1.280 uU/mL PT INR (no units) Date Value 04/12/2008 1.0 There were no tests performed for review. PHYSICAL EXAMINATION: Vitals: BP 139/79 Pulse 76 Ht 171.5 cm (5' 7.5) Wt 75.9 kg (167 lb 5.3 oz) SpO2 97% BMI 25.82 kg/m General: Well appearing, in no acute distress. Skin: No clubbing, no cyanosis. Eyes: Extra ocular movements intact Oropharynx: Teeth in good repair. Neck: No jugular venous distention, no carotid bruits, carotids have a normal upstroke, no palpablethyromegaly. Lungs: Clear to auscultation / diminished in the bases bilaterally, no wheezing or rhonchi. Heart: Regular rhythm, PMI not displaced, S1, S2 normal, no S3, no S4, no heaves, no rub and no murmur. Abdomen: Soft, nontender, bowel sounds normal, no palpable organomegaly, no bruits. Extremities: No peripheral edema . Grade 2/4 distal pulses bilaterally. Neuro: Oriented to person, place and time, alert, cooperative, gait coordinated. ALLERGIES: Sulfa (Sulfonamide Antibiotics) 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 Brittani Mace APRN.[employer] CURRENT MEDICATIONS: Current Outpatient Medications Medication Sig ELIQUIS 5 mg tab(s) Take 1 tablet by mouth every 12 hours. metoprolol succinate ER (TOPROL XL) 50 mg 24 hr tablet Take 1 tablet by mouth every afternoon. nitroglycerin sublingual (NITROQUICK) 0.4 mg SL tablet Dissolve 1 tablet under the tongue as directed. DISSOLVE ONE(1) TABLET UNDER THE TOUNGUE NEEDED FOR CHEST PAIN,EVERY 5 MIN X3 cyclobenzaprine (FLEXERIL) 5 mg tablet Take 1 tablet by mouth two times a day as needed. pantoprazole DR (PROTONIX) 20 mg tablet Take 2 tablets by mouth once daily. ezetimibe (ZETIA) 10 mg tablet Take 1 tablet by mouth once daily. traZODone (DESYREL) 50 mg tablet Take 1 tablet by mouth daily at bedtime. gabapentin (NEURONTIN) 400 mg capsule Take 1 capsule by mouth two times a day for 180 days. isosorbide mononitrate ER (IMDUR) 30 mg 24 hr tablet Take 0.5 tablets by mouth once daily. clopidogrel (PLAVIX) 75 mg tablet Take 1 tablet by mouth once daily. simvastatin (ZOCOR) 40 mg tablet Take 1 tablet by mouth daily at bedtime. acetaminophen 650 mg CR tablet Take 1,300 mg by mouth two times a day. Uses ad needed metoprolol succinate ER (TOPROL XL) 25 mg 24 hr tablet Take 1 tablet by mouth once daily. (Patient not taking: Reported on 10/08/2023) No current facility-administered medications for this visit. [facility] in [facility]The [facility] History of Present illness Narrative* Beryl KuhnNITA - 10/23/2023 11:17 AM EST CDM Telephonic Outreach Provider Action/FYI Contacted for: Routine Telephonic Outreach Contact made with patient: Yes Patient identified by name and date of . Discussed care with patient Are you experiencing any new or worsening symptoms you need to talk about today? No Disease Specific Do you check your blood pressure at home? Yes, Enter readings: 115/68 80 Do you have new or worsening shortness of breath with activity? No No SOB Do you feel like you are dehydrated for any reason, including not being able to eat or drink normally, or having less urine/much darker urine than normal for you? No Trying to stay hydrated Urine wnl; yellow Do you check your daily weight at home? Yes, 161 lbs Have you noticed a sudden gain in weight greater than three pounds in a day or three pounds in a week? No Based on assessment coordinator, the following disposition is advised: No symptoms or symptoms present, not severe. Routed to: No Action Needed EDWARDO Education Provided this Outreach: No Beryl Kuhn RN October 23, 2023 11:32 AM Care Coordination next call- CKD HTN Last CDM outreach contact: 10/23/23 - Feels like he has no energy for past week. Thinks it is his new medication. Prescribed Metoprolol and Eliquis in hospital. BP today 115/68 p 80 Denies lightheadedness, dizziness, palpitations, CP, SOB. Staying hydrated. Recommend he contact Cardiology with concern for no energy . If any new or worsening symptoms contact PCP Pt agreed Baseline: 10/23/23 ADL, FALL, GOAL due: 05/08/24. Chronic disease goal - 03/09/23 -CKD -reviewed CDK zones. 07/03/23 - HTN. 07/03/23- Reviewed renal diet and HTN goals SDOH transportation and food insecurity completed: 01/07/23 Recent Admit, ED, Observation: 09/25- Admit Dinorah - Afib DC 09/26 documented in this encounterThe [facility] History of Present illness Narrative* Thierno Srivastava DO - 10/20/2023 10:19 AM EST Images from the original note were not included. [facility] [place] DEPARTMENT OF VASCULAR SURGERY OUTPATIENT VISIT DATE October 20, 2023 OUTPATIENT VISIT TYPE CONSULTATION SERVICE DATE: 10/20/2023 SERVICE TIME: 10:19 AM PRIMARY CARE PHYSICIAN: Lizeth Saini PA-C REFERRING PROVIDER: Todd Seth [address] [facility] [id number] Consult requested for an opinion regarding the evaluation and treatment of the above. My final impression and recommendations will be communicated back to the requesting physician by way of the shared medical record or letter via US mail. CHIEF COMPLAINT: Carotid artery disease HISTORY OF PRESENT ILLNESS: Vascular consultation at the request of Dr. Todd Seth. A copy of this consultation note will be provided to the requesting physician by way of shared Medical record or letter to requesting physician via US mail. Mr. Dutton is a 83 year old male who is seen today for asymptomatic carotid artery stenosis. He denies focal deficit. Denies recent stroke or TIA. Denies significant family history of carotid disease. Recently was admitted for afib with RVR. 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 PAST SURGICAL HISTORY Procedure Laterality Date ARTHROSCOPY KNEE DIAGNOSTIC W/WO SYNOVIAL BX SPX 2000 both COLONOSCOPY FLX DX W/COLLJ SPEC WHEN PFRMD 2001 Colonoscopy COLONOSCOPY FLX DX W/COLLJ SPEC WHEN PFRMD 07/13/2014 Colonoscopy COLONOSCOPY GEN ANES 11/26/2020 CORONARY ARTERY BYP W/VEIN & ARTERY GRAFT 3 VEIN 1981 CABG, three grafts EGD 11/26/2020 EGD 02/14/2021 EYE SURGERY HX FOOT SURGERY HX Left HEART SURGERY HX NEUROPLASTY &/TRANSPOS MEDIAN NRV CARPAL TUNNE 1998 Carpal tunnel decomp bilateral PAST SURGICAL HISTORY OF surgery on umbilicus due to bleeding PAST SURGICAL HISTORY OF 1961 umbical mass resection SIGMOIDOSCOPY FLX DX W/COLLJ SPEC BR/WA IF PFRMD 08/29/2004 Sigmoidoscopy TONSILLECTOMY HX SOCIAL HISTORY: Social History Tobacco Use Smoking status: Former Years: 29 Types: Cigarettes Start date: 08/24/1955 Quit date: 08/24/1984 Years since quittin.1 Smokeless tobacco: Never Tobacco comments: QUIT at age 44, started at 15 Vaping Use Vaping Use: Never used Substance Use Topics Alcohol use: Not Currently Drug use: Never FAMILY HISTORY Problem Relation Age of Onset Heart Mother Hypertension Mother Heart Father Heart Sister Heart Brother Stroke Sister Colon Cancer No Family History MEDICATIONS: ELIQUIS 5 mg tab(s) Take 1 tablet by mouth every 12 hours. metoprolol succinate ER (TOPROL XL) 50 mg 24 hr tablet Take 1 tablet by mouth every afternoon. nitroglycerin sublingual (NITROQUICK) 0.4 mg SL tablet Dissolve 1 tablet under the tongue as directed. DISSOLVE ONE(1) TABLET UNDER THE TOUNGUE NEEDED FOR CHEST PAIN,EVERY 5 MIN X3 cyclobenzaprine (FLEXERIL) 5 mg tablet Take 1 tablet by mouth two times a day as needed. pantoprazole DR (PROTONIX) 20 mg tablet Take 2 tablets by mouth once daily. ezetimibe (ZETIA) 10 mg tablet Take 1 tablet by mouth once daily. traZODone (DESYREL) 50 mg tablet Take 1 tablet by mouth daily at bedtime. gabapentin (NEURONTIN) 400 mg capsule Take 1 capsule by mouth two times a day for 180 days. isosorbide mononitrate ER (IMDUR) 30 mg 24 hr tablet Take 0.5 tablets by mouth once daily. clopidogrel (PLAVIX) 75 mg tablet Take 1 tablet by mouth once daily. metoprolol succinate ER (TOPROL XL) 25 mg 24 hr tablet Take 1 tablet by mouth once daily. (Patient not taking: Reported on 10/08/2023) simvastatin (ZOCOR) 40 mg tablet Take 1 tablet by mouth daily at bedtime. acetaminophen 650 mg CR tablet Take 1,300 mg by mouth two times a day. Uses ad needed ALLERGIES: ALLERGIES Allergen Reactions Sulfa (Sulfonamide * Vomiting REVIEW of SYSTEM: Constitutional: Weight loss - Yes HEENT: Negative for frequent or significant headaches, No changes in hearing or vision, no nose bleeds or other nasal problems Respiratory: Negative for cough, wheezing, or shortness of breath Cardiovascular: Negative for chest pain, leg swelling or palpitations Gatrointestinal: Negative for abdominal discomfort, blood in stools or black stools or change in bowel habits Genitourinary: No difficulty urination, nocturia >1 times per night or hematuria Musculoskeletal: Positive for joint swelling and joint pain Endocrine: Negative for cold or heat intolerance, polyuria, polydipsia and goiter Hematology/Lymphatic: Positive for bruises easily Neurologic: No history or headaches, syncope, paralysis, seizures or tremors Integumentary: Negative for lesions, rash, and itching. PHYSICAL EXAM: VITALS: There were no vitals taken for this visit. General: Alert and oriented Integumentary: Normal color, no rash, no lesions. HEENT: EOM, pupils equal, round and reactive. Cardiovascular: Pulse regular. Lungs: Normal breath sounds, no wheezes or crackles. Abdomen: Not examined Extremities: No deformity, no edema or tenderness, no joint swelling or clubbing. Neurological: Normal cognition and motor skills. Vascular: Radial Pulse Right: Normal - Left: Normal Diagnostic tests reviewed for today's visit: Most recent labs Most recent imaging Carotid Artery Duplex Compared to prior study of 05/14/2017, No change on the right. Left internal carotid artery stenosis has increased from 40-59 to 60-79%. RIGHT SIDE Common carotid artery: Plaque visualized without evidence of hemodynamically significant stenosis. Internal carotid artery: 20-39% stenosis. Vertebral artery: Patent and antegrade flow noted. Subclavian artery: Plaque visualized without evidence of hemodynamically significant stenosis. LEFT SIDE Common carotid artery: Plaque visualized without evidence of hemodynamically significant stenosis. Internal carotid artery: 60-79% stenosis. External carotid artery: Elevated velocities and plaque noted. Vertebral artery: Patent and antegrade flow noted. IMPRESSION: Mr. Dutton is a 83 year old male with asymptomatic carotid artery disease . PLAN and RECOMMENDATIONS: Recommend continued non-interventional therapy Continue blood pressure and cholesterol control Continue statin Follow up in one year with repeat imaging SIGNATURE: Thierno Srivastava DO PATIENT NAME: Angie Dutton DATE: October 20, 2023 TIME: 10:19 AM documented in this encounterThe [facility]02-[facility] Miscellaneous Notes* Telephone Encounter - Suly Valentine RN - 10/16/2023 9:18 AM EST Patient's [employer] calling and states they have received a notice of denial from [employer] stating that [employer] is denying coverage of patient's recent inpatient admission to [facility] due to patient did not to meet certain diagnostic requirements. states the letter states that they can appeal this issue by calling a [employer] phone number on that notice. This nurse encouraged to call the number to get more direction regarding the appealprocess. agreeable at this time and will call PCP office back for any further questions. Suly Valentine RN * Telephone Encounter - Lizeth Saini PA-C - 10/16/2023 8:59 AM EST Please direct him to a financial counselor. I am not sure what he means. Thanks, Aidan Saini PA-C * Telephone Encounter - Naomi Navarro - 10/15/2023 1:59 PM EST Pt wanted to inform PCP that his insurance wont cover his last visit to hospital as he was advised to go. documented in this encounterThe [facility]02-[facility]24 Miscellaneous Notes* Telephone Encounter - Marga Zhu LPN - 10/15/2023 9:52 AM EST Patient notified of results, verbalizes understanding of instructions. Marga Zhu LPN * Telephone Encounter - Breanna Chawla APRN.CATIA - 10/15/2023 7:16 AM EST Can you please call the patient and and let them know that I reviewed his bladder/kidney ultrasound. Ultrasound showed Bilateral renal cysts Small post void residual urinary bladder volume I know he just had an evaluation with urology. I would recommend trying to focus on emptying the bladder completely when he uses the restroom. Follow up with urology as scheduled. Please let me know if they have any questions. Thank you. Breanna Chawla APRN.ASSISTANT PORTFOLIO MANAGER documented in this encounterThe [facility]02-20-[facility] History of Present illness Narrative* Kieran John PA-C - 10/13/2023 12:04 PM EST Images from the original note were not included. [facility] NEW CONSULT PATIENT CLINIC NOTE SERVICE DATE: 10/13/2023 SERVICE TIME: 12:05 PM NAME: Angie Dutton CHIEF COMPLAINT: Nocturia HISTORY OF PRESENT ILLNESS: Angie Dutton is a 83 year old male presenting as New Patient Consult for Nocturia The patient reports he has been getting up 3-5 times at night and has been urinating more frequently and has concerns That he may have prostate obstruction, his PVR today is 33 ml so unlikely having BPH with obstruction He has been having pain in his leg and having injections for pain, I suspect he is getting up to this pain and since he is up Urinating at the same time, but not because of obstruction given low PVR today UA with blood on UA no gross hematuria , he has recently been put on blood thinners and a likely cause for the blood on the UA FLUIDS: no alcohol at night , he has not had any alcohol since July 2023 per pateint LUTS: NOCTURIA: 4 per night STRAINING TO VOID: No EMPTIES COMPLETELY: Yes UTI: No GROSS HEMATURIA: no UA DIPSTICK POSITIVE ONLY: yes Other symptoms: LABS: No results found for: TESTOST No results found for: TESTFREE PSA (ng/mL) Date Value 06/23/2019 1.69 PSA Screening (ng/mL) Date Value 10/08/2023 1.61 05/30/2014 1.38 Hematocrit (%) Date Value 04/02/2023 41.6 01/08/2023 45.6 08/04/2022 44.5 08/31/2021 46.9 07/15/2021 40.0 07/10/2021 41.1 PSA (ng/mL) Date Value 06/23/2019 1.69 PSA Screening (ng/mL) Date Value 10/08/2023 1.61 05/30/2014 1.38 Creatinine Date Value Ref Range Status 10/08/2023 1.45 (H) 0.73 - 1.22 mg/dL Final 04/02/2023 1.36 (H) 0.73 - 1.22 mg/dL Final 01/08/2023 1.39 (H) 0.73 - 1.22 mg/dL Final 07/24/2022 1.38 (H) 0.73 - 1.22 mg/dL Final MEDICATIONS: ELIQUIS 5 mg tab(s) Take 1 tablet by mouth every 12 hours. metoprolol succinate ER (TOPROL XL) 50 mg 24 hr tablet Take 1 tablet by mouth every afternoon. nitroglycerin sublingual (NITROQUICK) 0.4 mg SL tablet Dissolve 1 tablet under the tongue as directed. DISSOLVE ONE(1) TABLET UNDER THE TOUNGUE NEEDED FOR CHEST PAIN,EVERY 5 MIN X3 cyclobenzaprine (FLEXERIL) 5 mg tablet Take 1 tablet by mouth two times a day as needed. pantoprazole DR (PROTONIX) 20 mg tablet Take 2 tablets by mouth once daily. ezetimibe (ZETIA) 10 mg tablet Take 1 tablet by mouth once daily. traZODone (DESYREL) 50 mg tablet Take 1 tablet by mouth daily at bedtime. gabapentin (NEURONTIN) 400 mg capsule Take 1 capsule by mouth two times a day for 180 days. isosorbide mononitrate ER (IMDUR) 30 mg 24 hr tablet Take 0.5 tablets by mouth once daily. clopidogrel (PLAVIX) 75 mg tablet Take 1 tablet by mouth once daily. simvastatin (ZOCOR) 40 mg tablet Take 1 tablet by mouth daily at bedtime. acetaminophen 650 mg CR tablet Take 1,300 mg by mouth two times a day. Uses ad needed metoprolol succinate ER (TOPROL XL) 25 mg 24 hr tablet Take 1 tablet by mouth once daily. (Patient not taking: Reported on 10/08/2023) 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 PAST SURGICAL HISTORY: PAST SURGICAL HISTORY Procedure Laterality Date ARTHROSCOPY KNEE DIAGNOSTIC W/WO SYNOVIAL BX SPX 2000 both COLONOSCOPY FLX DX W/COLLJ SPEC WHEN PFRMD 2001 Colonoscopy COLONOSCOPY FLX DX W/COLLJ SPEC WHEN PFRMD 07/13/2014 Colonoscopy COLONOSCOPY GEN ANES 11/26/2020 CORONARY ARTERY BYP W/VEIN & ARTERY GRAFT 3 VEIN 1981 CABG, three grafts EGD 11/26/2020 EGD 02/14/2021 EYE SURGERY HX FOOT SURGERY HX Left HEART SURGERY HX NEUROPLASTY &/TRANSPOS MEDIAN NRV CARPAL TUNNE 1998 Carpal tunnel decomp bilateral PAST SURGICAL HISTORY OF surgery on umbilicus due to bleeding PAST SURGICAL HISTORY OF 1961 umbical mass resection SIGMOIDOSCOPY FLX DX W/COLLJ SPEC BR/WA IF PFRMD 08/29/2004 Sigmoidoscopy TONSILLECTOMY HX FAMILY HISTORY: FAMILY HISTORY Problem Relation Age of Onset Heart Mother Hypertension Mother Heart Father Heart Sister Heart Brother Stroke Sister Colon Cancer No Family History SOCIAL HISTORY: Social Connections: Not on file REVIEW OF SYSTEMS: GENERAL: No fever, chills, weight loss, or fatigue. ENMT: Negative CARDIOVASCULAR:NO CHEST PAIN, PALPITATIONS, ANKLE EDEMA RESPIRATORY: No chronic cough, wheezing, dyspnea, hemoptysis. GENITOURINARY: SEE HPI MUSCULOSKELETAL:NO CHRONIC BACK PAIN, ARTHRITIS, CHRONIC NECK PAIN SKIN: NO VARICOSE VEINS, RASH, ABNORMAL ITCHING HEME/LYMPH/IMMUNE:Negative for prolonged bleeding, bruising easily or swollen nodes NEUROLOGICAL: NO HEADACHES, NUMBNESS, SEIZURES, STROKE DIABETES: No All other systems reviewed and are negative PHYSICAL EXAMINATION: Blood pressure 136/68, pulse 86, temperature 36.3 C (97.3 F), temperature source Temporal, resp. rate 16, height 171.5 cm (5' 7.5), weight 76.7 kg (169 lb), SpO2 98%. GENERAL: WNL nutrition, no deformities, healthy appearing NEURO: Awake, alert and oriented x 3 and Normal gait PSYCH: No signs of depression, anxiety, or agitation ENMT (Ear, Nose, Mouth, Throat): No masses, adenopathy, icterus. Thyroid nonpalpable RESP: NL effort, no retractions or purse-lip breathing. CV: No extremity swelling, varices, edema, pallor, erythema GASTROINTESTINAL: Soft, nontender, nondistended, no masses. HERNIAS: None SKIN: No rash, lesions No palpable lymphadenopathy MUSCULOSKELETAL: Extremities normal. No deformities, edema, clubbing or skin discoloration. PROBLEM LIST REVIEW: Yes LABS: Results for orders placed or performed in visit on 10/13/23 UA DIP, URINE (POC) Result Value Ref Range GLUCOSE UA (POCT) Negative Negative mg/dL BILIRUBIN UA (POCT) Negative Negative KETONE UA (POCT) Negative Negative mg/dL SPECIFIC GRAVITY UA (POCT) <=1.005 (A) 1.005 - 1.030 HEMOGLOBIN/BLOOD UA (POCT) Trace-intact (A) Negative PH UA (POCT) 5.5 4.5 - 8.0 PROTEIN UA (POCT) Negative Negative mg/dL UROBILINOGEN UA (POCT) 0.2 Normal E.U./dL NITRITE UA (POCT) Negative Negative LEUKOCYTES UA (POCT) Negative Negative COLOR UA (POCT) Yellow CLARITY UA (POCT) Clear PROCEDURES: PVR: 33 ml IMAGING: IMPRESSION/PLAN: 83 year old male with 1. Nocturia - ICD9: 788.43, ICD10: R35.1 > PVR - 33 ml > 1 year Appt w/ B. RULA John MT, PA-C for annual follow-up with PVR Consultation requested by Dr. Saini for an opinion regarding Nocturia. My final recommendations will be communicated back to the requesting physician by way of shared Medical record or letter to requesting physician via US mail. I spent a total of 40 minutes on the date of the service which included preparing to see the patient, face to face patient care, completing clinical documentation, obtaining and/or reviewing separately obtained history, performing a medically appropriate examination, counseling and educating the pat ient/family/caregiver, ordering medications, tests, or procedures, and care coordination. RULA Dean MT, PA-C * Jamel Crawford LPN - 10/13/2023 11:42 AM EST Verified name and date of . CC Post Void Residual HPI: Angie Dutton is a 83 year old male. The patient is here now for an appointment with Kieran John, SUKHJINDERS, [place], PA-COV. Procedure: Explained procedure to patient and verbalizes understanding. Performed a PVR. Patient urinated and instructed to empty bladder as much as possible just prior to having PVR done using bladder ultrasound scanner. Results of scan: 33 mL The patient tolerated the procedure well. Plan: Appointment with Kieran. documented in this encounterThe [facility]02-[facility] History of Present illness Narrative* Nya García RDMS - 10/12/2023 1:45 PM EST Radiology Service Progress Note PATIENT NAME: Angie Dutton DATE OF SERVICE: October 12, 2023 TIME: 2:09 PM PATIENT IDENTITY VERIFICATION COMPLETED USING TWO (2) IDENTIFIERS: Name and Date of confirmedby patient verbally. FALL SCREENING: Has the patient had 2 falls in the last year or 1 fall with injury or currently using an Ambulatory Assistive Device (Walker, Cane, Wheelchair, Crutches, etc.)? No PATIENT GENDER DATA: Male PATIENT RELEVANT IMPLANT DATA REVIEWED: Not Applicable PATIENT PRESENTS WITH AN IMPLANTABLE OR ATTACHED GAS TREATER: No RADIOLOGY DEPARTMENT: Ultrasound PERIPHERAL IV DATA: Not applicable SIGNED BY: Nya García RDMS October 12, 2023 2:09 PM documented in this encounterThe [facility]02-19-[facility]24 Miscellaneous Notes* Telephone Encounter - Marga Zhu LPN - 10/12/2023 10:10 AM EST Patient notified of results, verbalizes understanding of instructions. Marga Zhu LPN * Telephone Encounter - Breanna Chawla APRN.CNP - 10/12/2023 9:54 AM EST Can you please call the patient and let him know that his PSA was normal. If he is still having increased urination I would recommend a consult with urology. Order has been placed. Please let me knowif he has any questions. Thank you. Breanna Chawla APRN.ASSISTANT PORTFOLIO MANAGER documented in this encounterThe [facility]02-15-[facility]24 History of Present illness Narrative* Lizeth Saini PA-C - 10/08/2023 8:40 AM EST Transitional Care Management TCM Eligibility Documentation No recent care coordination documentation related to TCM found. Provider Documentation Angie Dutton is a 83 year old male here today for a follow up from recent hospitalization. I have reviewed the patient's hospital course including discharge summary, discharge medications , follow upneeds, labs (notable for as below), Echo, and EKG with the patient and any family members present at today's visit. 83 year old male with c/o hospital discharge follow up Facility: [facility] Date of admission: 09/24/2023 Date of discharge: 09/26/2023 Discharge assessment and plan Atrial fibrillation with RVR new onset: spontaneously converted to NSR: continue betablocker Elevated cardiac enzymes: unclear etiology, cardiology consult elected medical management 3. HTN: continue current medications 4. CAD: stable, no changes 5. Chronic renal failure stage 3a: BMP monitored, baseline 1.36 Cardiology consult:Siddhartha MEZA, [place] BONDC: Recommended Eliquis 2.5 mg twice daily related to elderly status and renal function, workup with nuclear stress outpatient. Medication reconciliation: New medications: Metoprolol succinate 50 mg daily, #30/0 Eliquis 5 mg p.o. twice daily, #60/0 Continue medications: Isosorbide mononitrate 30 mg extended release 50 mg daily Trazodone 50 mg daily at bedtime Gabapentin 400 mg p.o. twice daily Simvastatin 40 mg daily at bedtime Pantoprazole [address] twice daily AC Cyclobenzaprine 5 mg nightly Ezetimibe 10 mg daily Hospital course: 09/24/2023 presented to [facility] emergency department with complaint chest discomfort .prior to arrival states he felt heart flutters, came in to be checked but phones down, was sent to [facility] without being seen. ER records indicate without a grocery store at about 11 AM when he developed retrosternal chest pain patient states it lasted about 10 seconds. Said he was not feeling weak, dizzy, short of breath, sweaty. After he returned from the grocery walked his dog and noticed that pain came back his heart was racing. Patient had Plavix he normally takes held for 5 days prior to right hip steroid injection under fluoroscopy at [facility]. Edy noted to me in August that he was having some lightheadedness which was transient without sustained symptoms. Follows at [facility] cardiology Vital signs: 97.2 [id number]/97-99% RA Initial exam was essentially normal CBC abnormals: WBC 20.2 H-RDW 44-PLT 135-MPV 12.7-immature granulocyte percent 1.2-neutrophil percent 90.0-lymph percent 6.5L-absolute neutrophil 18.2 D-dimer 0.66 Chemistry abnormals: Chloride 110, BUN 17-CRE 1.52, GFR 47 Urinalysis abnormal: Urine protein 15, positive occult blood with 0 RBC Pertinent normals: Calcium 10.0 is normal. Troponin 1 high-sensitivity 40 Lactic acid 1.7 BNP 548.5 Chest x-ray: Increased markings left base with blunting of left costophrenic angle, follow-up recommended Patient was admitted under hospitalist Fiorella Ramos MD Admission assessment and plan: 1. Chest pain in the setting of atrial fibrillation with RVR, elevated chads 2- VASc: Eliquis 2.5 mgtwice daily was started with anticipation to increase to 5 mg twice daily if creatinine improves. Echocardiogram ordered, last echo 06/26/2021 demonstrated ejection fraction 65%. RV SP 36 suggestive of diastolic dysfunction. TSH ordered with daily weights, JERARDO. Heart score identified and 5 indicating possible need for stress test.. Serial troponins ordered 2. History of coronary artery disease with coronary artery bypass/PCI and history of TIA: Continue Plavix, statin, Zetia, beta-bryan, Imdur Check lipid panel and echo as above. 3. Leukocytosis with WBC 20.2 with left shift likely related to recent steroid injection right hip.Blood culture was sent in ER, urine negative for IFXN 4. CKD stage III creatinine 1.5 from baseline previous at 1.36 04/14/2023, BUN within normal limits not appear dehydrated, trend BMP 5. Gastroesophageal reflux: Continue home medications. 6. Hypertension: Continue home medicines 7. OA right hip status post injection 09/23/2023 with IR 8. DVT prophylaxis:, Continue apixaban Additional data: Discharge weight 78.6 kg, BMI 27.1 Troponins were trended, second and third troponins were elevated with highest troponin being 162. 09/24/2023 microbiology: Urine culture no growth, blood culture x 2 no growth, nasal swabs for respiratory panel, SARS-CoV-2, influenza and RSV negative 09/24/2023 echocardiogram: LVEF estimated 65% Stage II diastolic dysfunction Mild eccentric left ventricular hypertrophy Mild annular calcification Mild mitral valve insufficiency Left atrium moderately enlarged Mild pulmonary hypertension Discharged in stable condition with no restrictions on diet of full weightbearing. Current status: Denies chest pain, lightheadedness, dizziness. No SOB or labored breathing. No problems since discharge No doing much of anything Diarrhea day following discharge x 3-4 days, maybe 5-6 times during the day, occasionally at night,yellowish-white [place] weak. [place] warm, on day with a chill. Appetite not too good, diminished appetite. Sx resolved States right hip injection helped significantly Has scheduled F/U [place] cardiology next week HISTORIES FAMILY HISTORY Problem Relation Age of Onset Heart Mother Hypertension Mother Heart Father Heart Sister Heart Brother Stroke Sister Colon Cancer No Family History 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 PAST SURGICAL HISTORY Procedure Laterality Date ARTHROSCOPY KNEE DIAGNOSTIC W/WO SYNOVIAL BX SPX 2000 both COLONOSCOPY FLX DX W/COLLJ SPEC WHEN PFRMD 2001 Colonoscopy COLONOSCOPY FLX DX W/COLLJ SPEC WHEN PFRMD 07/13/2014 Colonoscopy COLONOSCOPY GEN ANES 11/26/2020 CORONARY ARTERY BYP W/VEIN & ARTERY GRAFT 3 VEIN 1981 CABG, three grafts EGD 11/26/2020 EGD 02/14/2021 EYE SURGERY HX FOOT SURGERY HX Left HEART SURGERY HX NEUROPLASTY &/TRANSPOS MEDIAN NRV CARPAL TUNNE 1998 Carpal tunnel decomp bilateral PAST SURGICAL HISTORY OF surgery on umbilicus due to bleeding PAST SURGICAL HISTORY OF 1961 umbical mass resection SIGMOIDOSCOPY FLX DX W/COLLJ SPEC BR/WA IF PFRMD 08/29/2004 Sigmoidoscopy TONSILLECTOMY HX Social History Tobacco Use Smoking status: Former Years: 29 Types: Cigarettes Start date: 08/24/1955 Quit date: 08/24/1984 Years since quittin.1 Smokeless tobacco: Never Tobacco comments: QUIT at age 44, started at 15 Vaping Use Vaping Use: Never used Substance Use Topics Alcohol use: Yes Alcohol/week: 7.0 - 14.0 standard drinks of alcohol Types: 7 - 14 Cans of Beer (12oz) per week Comment: 2 beers a day Drug use: No ACTIVE PROBLEM LIST Spinal Stenosis, Lumbar Region, Without Neurogenic Claudication Thoracic Or Lumbosacral Neuritis Or Radiculitis, Unspecified Lumbosacral Spondylosis Without Myelopathy Essential Hypertension, Benign Mixed Hyperlipidemia Coronary Atherosclerosis Insomnia, Unspecified Esophageal Reflux Impaired Fasting Glucose Allergic Rhinitis, Cause Unspecified Elevated Serum Creatinine Serum Calcium Elevated Atherosclerosis of [place] Coronary Artery of [place] Heart With Stable Angina Pectoris (Hcc) Tia (Transient Ischemic Attack) Chronic Right Hip Pain Pain of Right Calf Stage 3a Chronic Kidney Disease (Hcc) Iron Deficiency Anemia Chronic Itp (Idiopathic Thrombocytopenia) (Hcc) Right Groin Pain Hypertensive Kidney Disease With Stage 3a Chronic Kidney Disease (Hcc) Bilateral Carotid Artery Stenosis Current Outpatient Medications Medication Sig Dispense Refill ELIQUIS 5 mg tab(s) Take 1 tablet by mouth every 12 hours. cyclobenzaprine (FLEXERIL) 5 mg tablet Take 1 tablet by mouth two times a day as needed. [address] (PROTONIX) 20 mg tablet Take 2 tablets by mouth once daily. 180 tablet 1 ezetimibe (ZETIA) 10 mg tablet Take 1 tablet by mouth once daily. 90 tablet 3 traZODone (DESYREL) 50 mg tablet Take 1 tablet by mouth daily at bedtime. 90 tablet 3 gabapentin (NEURONTIN) 400 mg capsule Take 1 capsule by mouth two times a day for 180 days. 180 capsule 1 isosorbide mononitrate ER (IMDUR) 30 mg 24 hr tablet Take 0.5 tablets by mouth once daily. 45 tablet 3 clopidogrel (PLAVIX) 75 mg tablet Take 1 tablet by mouth once daily. 90 tablet 3 metoprolol succinate ER (TOPROL XL) 25 mg 24 hr tablet Take 1 tablet by mouth once daily. 90 tablet3 simvastatin (ZOCOR) 40 mg tablet Take 1 tablet by mouth daily at bedtime. 90 tablet 3 nitroglycerin sublingual (NITROQUICK) 0.4 mg SL tablet Dissolve 1 tablet under the tongue as directed. DISSOLVE ONE(1) TABLET UNDER THE TOUNGUE NEEDED FOR CHEST PAIN,EVERY 5 MIN X3 1 Bottle of 25 1 acetaminophen 650 mg CR tablet Take 1,300 mg by mouth twice daily. No current facility-administered medications for this visit. RSV Vaccine(1 - 1-dose 60+ series) Never done Shingrix Vaccine(2 of 3) due on 04/10/2011 DTaP,Tdap,Td Vaccine(3 - Td or Tdap) due on 03/13/2021 Advance Directive Discussion due on 08/24/2023 Depression Assessment due on 08/24/2023 EXAM: BP 128/70 Pulse 78 Resp 16 Wt 75.3 kg (166 lb) SpO2 98% BMI 26.00 kg/m Pleasant elderly adult male in no acute distress. Alert and oriented all spheres. Normal affect andcognition. Speech normal. No deficits to learning or comprehension. Usual demeanor, talkative throughout visit, having student check his biceps. Skin warm, dry, pink to lips and nailbeds. Normal turgor. Respirations regular and unlabored. HEENT: NCAT. No scleral icterus or conjunctival injection. TM's clear. Nose and oropharynx free from injection or lesion. Oral membranes moist and pink. No cervical lymph nodes. Thyroid non-tender, no masses, or enlargement. Carotids pulses 2+/4+ without bruits. No JVD with HOB at 30 degrees. Chest is normal shape. Lungs are clear to all [place] with good air exchange through out. HRRR without murmur or gallop. No lifts, heaves, or rubs. Extrem: no clubbing or cyanosis. Edema: none. Extremities are warm and pink with prompt capillary refill. ASSESSMENT/PLAN: 1. Hospital discharge follow-up - ICD9: V67.59, ICD10: Z09 (primary diagnosis) Completed record review and problem update Medications reconciled F/u appointments verified with patient 2. New onset atrial fibrillation (HCC) - ICD9: 427.31, ICD10: I48.91 Started on apixaban 2.5mg twice a day with plans to increase if renal function corrects Instructed to push fluids. 3. Elevated serum creatinine - ICD9: 790.99, ICD10: R79.89 At baseline 4. 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) - ICD9: 414.01, 413.9, ICD10: I25.118 Stable wihtout anginal equivalents. Last NTG 2 years old - NITROGLYCERIN 0.4 MG SUBLINGUAL TABLET 5. Essential hypertension, benign - ICD9: 401.1, ICD10: I10 - Controlled - Continue current medications - Recommend home blood pressure monitoring, to bring results to next visit - Encouraged sodium restriction, DASH or Mediterranean diet - Recommend regular aerobic exercise 6. Hypertensive kidney disease with stage 3a chronic kidney disease (HCC) - ICD9: 403.90, 585.3, ICD10: I12.9, N18.31 - Controlled - Continue current medications - Recommend home blood pressure monitoring, to bring results to next visit - Encouraged sodium restriction, DASH or Mediterranean diet - Recommend regular aerobic exercise - eGFR: 47 Stable - Counseled on avoiding NSAIDs, adequate hydration - BASIC METABOLIC PNL 7. Mixed hyperlipidemia - ICD9: 272.2, ICD10: E78.2 - Controlled - Continue current medications - Counseled on healthy diet and regular exercise 8. Impaired fasting glucose - ICD9: 790.21, ICD10: R73.01 Stable in non-diabetic range 9. Cardiac enzymes elevated - ICD9: 790.5, ICD10: R74.8 Following with [facility] cardiology next week. No chest pain or further sx F/u 3 months or sooner if needed Some of this note may have been copied and pasted for the purpose of history context and comparisonand has been adjusted for changes in prior data. Lizeth Saini PA-C documented [facility]The [facility] Miscellaneous Notes* Telephone Encounter - Geena Darling LPN - 09/30/2023 1:51 PM EST Spoke with Elzbieta and scheduled him for today. Explained to her that we want to be sure he doesn't have an infection. * Telephone Encounter - Todd eSth MD - 09/30/2023 1:13 PM EST His meds will not cause it. Needs seen here or uc to evaluate his urinary tract * Telephone Encounter - Suly Valentine RN - 09/30/2023 1:01 PM EST Patient was recently discharged from [facility] on 09/26. He was there with chest pain, A-fib. Patient was ordered 2 new medications: Eliquis 5 mg one tablet twice daily and Metoprolol Succ 50 mg one tablet daily. Pt has appt with [place] Vázquez on 10/08. Patient's calling today with concern that patient has been urinating more frequently since he came home. He is urinating almost every hour at night and during the day he urinates about every 2-3hours. He currently denies any other sx's; no painful urination, no new back or flank pain (reports has had back pain for at least a year or more), no visible hematuria, no hesitancy, no post void dribbling, no urinary retention. Reports he has a strong urinary stream. Pt asking if this could be related to new medications? Pt asking if he should have urine testing done or make appt? Please call pt's , Elzbieta, at [phone] with provider's response. Thank you. 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 Patient identified by name and . TRANSITION CARE MANAGEMENT INITIAL OUTREACH DOCUMENTATION: No flowsheet data found. SUMMARY: -Pt discharged from [facility] on 09/26/2023. -Admitted for: chest pain Afib Do you have a hospital follow up appointment with your PCP? Appointment on 10/08/2023 with Aidan ALEJANDRA, had this scheduled already. Yes. Remind patient of appointment date, time, and location. If not within 14 calendar days of discharge - please reschedule accordingly. MEDICATIONS: Many patients have questions or concerns about their medications once they are home. Were you prescribed any new medications? Yes Eliquis 5 mg one tablet twice daily, Metoprolol Succ 50 mg one tablet daily Were you told to hold any medications? No Were any of your medications discontinued? No Do you have any questions about getting or taking your medications? No Your discharge instructions/After visit Summary (AVS) are important in guiding you through the recovery process. Is there anything I might help you understand? Yes, did receive discharge instructions/AVS at all. Restate discharge instructions from [facility] verbally, copy/paste via MyChart, mail, or provide in person.Patient will bring to his appt Do you have all the necessary equipment and supplies at home? No, follow site specific process to secure durable medical equipment and/or supplies for the patient, handoff to RN/RAMANDEEP, or LIP Medical records from recent hospitalization: [facility] documented in this encounterThe [facility]02-[facility]24 Discharge summary Author Alvin Dumont [facility] September 26, 2023 11:33am Note Date/Time September 26, 2023 1 0:24am [facility] Medical Records Department [address] [place] [address] Instructions for Home/Discharge Instructions 09/26/23 1023 MR#: [id number] Acct: [id number] Name: ANGIE DUTTON Rep #:[id number] : 1940 83 From: Alvin Dumont DO PCP: [place] Perera Status:ADM I N Discharge Instructions Diet Discharge Diet: No restrictions Activity Discharge Activity: Return to Normal Activity Weight Bearing Status: Full weight bearing Follow Up Care Test Results: Test results from this visit will be discussed in further detail at your follow- up appointment, if applicable. Discharge Plan Admission Admit Date/Time: 09/24/23 16:06 Primary Reason for Your Visit: atrial fibrillation Attending Provider: Alvin Dumont Primary Care Provider: Lizeth Saini Consulting Providers: Fiorella Ramos; Jah Ortiz Instructions Additional Instructions / Restrictions: Do not take aspirin ,Ibuprofen, or Alleve while on Eliquis You may bruise easier or bleed from a cut because you are on clopidogrel and Eliquis Discharge Orders/Prescriptions Prescriptions: New metoprolol succinate 50 mg Tablet Extended Release 24 Hr 50 mg PO DAILY Qty: 30 0RF Eliquis 5 mg tablet 5 mg PO BID Qty: 60 0RF Continued isosorbide mononitrate 30 MG tablet extended release 24 hr 15 mg PO DAILY clopidogrel 75 MG tablet 75 mg PO DAILY metoprolol succinate 25 MG tablet extended release 24 hr 25 mg PO DAILY trazodone 50 mg tablet 50 mg PO QHS gabapentin 400 mg capsule 400 mg PO BID simvastatin 40 mg tablet 40 mg PO DAILY pantoprazole 20 mg tablet,delayed release (DR/EC) 20 mg PO BID cyclobenzaprine 5 mg tablet 5 mg PO QHS ezetimibe 10 mg tablet 10 mg PO DAILY Referrals / Follow Up: Lizeth Saini PA [Primary Care Provider] - Within 2 Weeks Disposition Disposition (needs filled in before D/C Order can be placed): Home, Self Care 09/26/23 1133<Electronically signed by Alvin Dumont DO>Alvin Dumont DO CC: Dr. Jah Ortiz MD; Dr. Fiorella Ramos MD; [place] Perera ~ Signed [facility] Work Phone: 1(949) 118-289402-02-2024 Progress note Author Alvin [facility]erm[facility] September 25, 2023 5:28pm Note Date/Time September 25, 2023 5 :09pm [facility] Medical Records Department [address] [place] [address] Progress Note - Hospitalist 09/25/23 1704 MR#: [id number] Acct: [id number] Name: ANGIE DUTTON Rep #:[id number] : 1940 83 From: Alvin Dumont DO PCP: [place] Perera Status:ADM I N Location: [place] [address] Reason for Visit Reason for Visit: Diagnoses Essential (primary) hypertension (09/24/23) Atherosclerotic heart disease of [place] coronary artery without angina pectoris (09/24/23) Unspecified atrial fibrillation (09/24/23) Gastro-esophageal reflux disease without esophagitis (09/24/23) Unilateral primary osteoarthritis, right hip (09/24/23) Subjective Subjective Patient was seen and examined today, he appears to be in sinus rhythm with PACs,he is on room air at this time, I had cardiology see him concerning his bump in his cardiac enzymes, they feel that he can be treated medically and not undergo any diagnostic testing. Objective Data Objective Data Vital Signs: Vital Signs Temp Pulse Resp BP Pulse Ox O2 Del Method 97.5 F L 85 16 133/73 H 95 Room Air 09/25/23 14:32 09/25/23 14:32 09/25/23 14:32 09/25/23 14:32 09/25/23 14:32 09/25/23 14:32 Oxygen Delivery Method Room Air Weight: 78.6 kg Body Mass Index (BMI) 27.1 Intake & Output: Intake and Output for Last 24 Hours 09/23/23 09/24/23 09/25/23 23:59 23:59 23:59 Intake Total 1000 / 1000 360 / 360 Output Total 250 / 250 Balance 1000 / 1000 110 / 110 Lab / Micro Data 09/25/23 05:30 09/25/23 05:30 Labs: Laboratory Results - last 24 hr 09/24/23 16:42: Troponin I High Sens 82 H, Procalcitonin < 0.01 09/24/23 19:47: Troponin I High Sens 162 H* 09/25/23 05:30: WBC 7.8, RBC 4.14 L, Hgb 11.9 L, Hct 36.8 L, MCV 88.9, MCH 28.7,MCHC 32.3, RDW Std Deviation 45.1 H, RDW Coeff of Jaqueline 13.9, Plt Count 97 L, MPV 12.9 H, Immature Gran % (Auto) 1.200 H, Neut % (Auto) 84.3 H, Lymph % (Auto) 11.8 L, [place] % (Auto) 2.7, Eos % (Auto) 0.0, Baso % (Auto) 0.0, Absolute Neuts (auto) 6.6, Absolute Lymphs (auto) 0.92, Nucleated RBC % 0, Differential CommentSCANNED, Platelet Estimate MOD DEC, Sodium 141, Potassium 4.2, Chloride 114 H, Carbon Dioxide 22.0, Anion Gap 5, BUN 25 H, Creatinine 1.37 H, Estim Creat ClearCalc 36.86, Est GFR (MDRD) Af Amer 64, Est GFR (MDRD) Non-Af 53 L, BUN/Creatinine Ratio 18.2, Glucose 119 H, Calcium 9.5, Magnesium 2.5, Triglycerides 91, Cholesterol 142, LDL Cholesterol 59, VLDL Cholesterol 18, HDL Cholesterol 65, TSH 0.76 Micro: Microbiology 09/24/23 19:25 Mucosa - Nasopharyngeal Respiratory Panel (PCR) - Final 09/24/23 19:25 Mucosa - Nasopharyngeal SARS-CoV-2, Influenza & RSV (PCR) - Final Radiography Diagnostic Testing: Radiology Impression Echocardiogram 09/24/23 17:56 Interpretation Summary The estimated ejection fraction is 65 %. Stage 2 diastolic dysfunction. Mild eccentric left ventricular hypertrophy. Mild mitral annular calcification. Mild (1+) mitral valve insufficiency. The left atrium is moderately enlarged. Mild pulmonary hypertension. Ordering Physician: Fiorella Ramos Performed By: Leonidas Davis RCS Physical Exam Const alert, oriented x3, no apparent distress, average body habitus and healthy appearing General Appearance: cooperative, well kempt and well developed Orientation / Consciousness: awake, oriented to person, oriented to place and oriented to time HEENT normocephalic, head/scalp atraumatic and moist oral mucous membranes Eyes PERRL, EOMs intact bilaterally and conjunctivae normal Neck supple, no JVD, thyroid normal and no carotid bruits General: trachea midline Resp normal respiratory effort, no retractions, no use of accessory muscles and clearto auscultation bilaterally Auscultation: Negative for rales, rhonchi or wheezes Cardio regular rate, regular rhythm, S1 normal heart sound, S2 normal heart sound, no murmurs, no rub and no gallops Cardio Narrative: Occasional ectopic beats were noted GI normal to inspection, nondistended, normoactive bowel sounds, soft to palpation,non-tender and non-distended Extremity no clubbing, cyanosis or edema Skin no rashes or lesions noted General Skin Exam: no breakdown Neuro oriented x3, CN's II-XII intact bilaterally, moves all extremities, no focal motor deficits and no sensory deficits noted Sensorium / Orientation: awake and alert Speech: speech normal Psych affect normal Assessment & Plan Assessment/Plan (1) Atrial fibrillation with RVR: PLAN: Plan 1. Atrial fibrillation with RVR-now converted to sinus rhythm, continue presentrate limiting medications and Eliquis. #2 elevated cardiac enzymes-etiology unclear, cardiology has elected to treat the patient medically and not perform a stress test or cardiac catheterization. #3 essential hypertension-patient will remain on his current medications, blood pressure medication will be adjusted accordingly #4 coronary artery disease-this appears stable at this time, patient will remainon his current medication #5 chronic kidney disease stage IIIa-complicates care, medical course, recovery,and prognosis, monitor BMP as needed Total clinical time spent by myself addressing the patient's medical issues, reviewing all of his data, and collaborating with patient's care team: 35 minutes 09/25/23 5283 <Electronically signed by Alvin Dumont DO> Cosigner Signature (if applicable): CC: ~ Signed ADDENDUM by Dr. Alvin Dumont DO on 09/25/23 at 1728 Visit Charges Inpatient E&M: 15078 Subs Hosp L2 09/25/23 1728<Electronically signed by Alvin Dumont DO> Cosigner Signature (if applicable): cc: ~* Signed [facility] Work Phone: 1(324) 813-242802-02-2024 Consult note Author Jah Ortiz [facility] September 25, 2023 5:20pm Note Date/Time September 25, 2023 3 :15pm [facility] Medical Records Department [address] [place] [address] Consultation - Cardiology 09/25/23 1515 MR#: [id number] Acct: [id number] Name: ANGIE DUTTON Rep #:[id number] : 1940 83 From: Jah Ortiz MD PCP: [place] Perera Status:ADM I N Location: [place] [address] Documented by User: Paris ALEJANDRA PA 09/25/23 16:26 Assessment & Plan Assessment/Plan (1) CAD (coronary artery disease): (2) Hypertension: (3) GERD (gastroesophageal reflux disease): (4) Atrial fibrillation with RVR: HPI Consult Data Date of Consult: 09/25/23 HPI Narrative HPI Narrative: ANGIE DUTTON, is a 83 M who presented to [facility] ER on 09/24/23 with CP. He states thatin the retrosternal area. He states at about 11 AM while he was at the grocery store. Last about 10 seconds. Patient states he did fine. He went home and started to walk the dog with the discomfort came back and he noticed that his heart is racing. Pt was noted to be in Afib with RVR. This is a new finding. He was admitted to [facility]. His troponins trended 40/82/162. BNP 548. He does have a history of CAD status post CABG and stenting, TIA, hypertension, GERD. [facility] Medical History (Updated 09/24/23 @ 18:28 by Stephanie Vivas) CAD (coronary artery disease) Former tobacco use GERD (gastroesophageal reflux disease) History of chronic hypertension HLD (hyperlipidemia) Hypertension Kidney disease Myocardial infarct Right leg weakness Vertigo Home Medications clopidogrel 75 mg tablet 75 mg PO DAILY anti platelet 08/23/19 [History Last Taken 06/25/21] isosorbide mononitrate 30 mg tablet,extended release 24 hr 15 mg PO DAILY HEART 08/23/19 [History Last Taken 06/25/21] metoprolol succinate 25 mg tablet,extended release 24 hr 25 mg PO DAILY blood pressure 08/23/19 [History Last Taken 06/25/21] cyclobenzaprine 5 mg tablet 5 mg PO QHS MUSCLE 06/25/21 [History Last Taken 06/24/21] gabapentin 400 mg capsule 400 mg PO BID NERVE PAIN 06/25/21 [History Last Taken 06/25/21] pantoprazole 20 mg tablet,delayed release 20 mg PO BID GERD 06/25/21 [History Last Taken 06/25/21] simvastatin 40 mg tablet 40 mg PO DAILY CHOLESTEROL 06/25/21 [History Last Taken 06/24/21] trazodone 50 mg tablet 50 mg PO QHS SLEEP 06/25/21 [History Last Taken 06/24/21] ezetimibe 10 mg tablet 10 mg PO DAILY 09/24/23 [History Last Taken Unknown] Allergy/AdvReac Type Severity Reaction Status Date / Time Sulfa (Sulfonamide Allergy Unknown Verified 09/24/23 14:02 Antibiotics) Family History Mother Heart disease Father Heart disease Surgical History H/O right heart catheterization S/p bilateral carpal tunnel release S/P bilateral cataract extraction S/P bilateral foot surgery S/P CABG x 3 S/P tonsillectomy and adenoidectomy Status post arthroscopic knee surgery Stented coronary artery Social History household members: spouse Smoking Status: Former smoker how long ago did patient quit smoking: Quit when he was 44 y/o, 1/2 ppd since 10 years old. alcohol intake: never substance use type: does not use Risk Stratification Risk Stratification Applicable: No Aspirin Use in the Past 7 Days: Yes Severe Angina (>/= episodes in 24 hours): No EKG ST Changes >/= 0.5mm: No Positive Cardiac Marker: Yes Objective Data Vital Signs: Vital Signs Temp Pulse Resp BP Pulse Ox O2 Del Method 97.5 F L 85 16 133/73 H 95 Room Air 09/25/23 14:32 09/25/23 14:32 09/25/23 14:32 09/25/23 14:32 09/25/23 14:32 09/25/23 14:32 Oxygen Delivery Method Room Air Weight: 173 lb 4.533 oz Body Mass Index (BMI) 27.1 Intake & Output: Intake and Output for Last 24 Hours 09/23/23 09/24/23 09/25/23 23:59 23:59 23:59 Intake Total 1000 / 1000 240 / 240 Output Total 250 / 250 Balance 1000 / 1000 -10 / -10 Lab / Micro Data 09/25/23 05:30 09/25/23 05:30 Labs: Laboratory Results - last 24 hr 09/24/23 14:10: PT 13.5, INR 1.0 09/24/23 14:55: Lactic Acid 1.7 09/24/23 15:11: Urine Color Yellow, Urine Clarity Clear, Urine pH 6.0, Ur Specific [place] 1.010, Urine Protein 15 H, Urine Glucose (UA) Normal, Urine Ketones Negative, Urine Occult Blood 50 H, Urine Nitrite Negative, Urine Bilirubin Negative, Urine Urobilinogen Normal, Ur Leukocyte Esterase Negative, Urine RBC 0 SEEN, Urine WBC 0 SEEN, Ur Squamous Epith Cells 0 SEEN, Urine Bacteria 0 SEEN, Urine Mucus 0 SEEN 09/24/23 16:42: Troponin I High Sens 82 H, Procalcitonin < 0.01 09/24/23 19:47: Troponin I High Sens 162 H* 09/25/23 05:30: WBC 7.8, RBC 4.14 L, Hgb 11.9 L, Hct 36.8 L, MCV 88.9, MCH 28.7,MCHC 32.3, RDW Std Deviation 45.1 H, RDW Coeff of Jaqueline 13.9, Plt Count 97 L, MPV 12.9 H, Immature Gran % (Auto) 1.200 H, Neut % (Auto) 84.3 H, Lymph % (Auto) 11.8 L, [place] % (Auto) 2.7, Eos % (Auto) 0.0, Baso % (Auto) 0.0, Absolute Neuts (auto) 6.6, Absolute Lymphs (auto) 0.92, Nucleated RBC % 0, Differential CommentSCANNED, Platelet Estimate MOD DEC, Sodium 141, Potassium 4.2, Chloride 114 H, Carbon Dioxide 22.0, Anion Gap 5, BUN 25 H, Creatinine 1.37 H, Estim Creat ClearCalc 36.86, Est GFR (MDRD) Af Amer 64, Est GFR (MDRD) Non-Af 53 L, BUN/Creatinine Ratio 18.2, Glucose 119 H, Calcium 9.5, Magnesium 2.5, Triglycerides 91, Cholesterol 142, LDL Cholesterol 59, VLDL Cholesterol 18, HDL Cholesterol 65, TSH 0.76 Micro: Microbiology 09/24/23 19:25 Mucosa - Nasopharyngeal Respiratory Panel (PCR) - Final 09/24/23 19:25 Mucosa - Nasopharyngeal SARS-CoV-2, Influenza & RSV (PCR) - Final Cardiology Labs/Tests 09/24/23 14:10: PT 13.5, INR 1.0 09/24/23 14:55: Lactic Acid 1.7 09/24/23 15:11: Urine Color Yellow, Urine Clarity Clear, Urine pH 6.0, Ur Specific [place] 1.010, Urine Protein 15 H, Urine Glucose (UA) Normal, Urine Ketones Negative, Urine Occult Blood 50 H, Urine Nitrite Negative, Urine Bilirubin Negative, Urine Urobilinogen Normal, Ur Leukocyte Esterase Negative, Urine RBC 0 SEEN, Urine WBC 0 SEEN 09/25/23 05:30: WBC 7.8, RBC 4.14 L, Hgb 11.9 L, Hct 36.8 L, MCV 88.9, MCH 28.7,MCHC 32.3, Plt Count 97 L, MPV 12.9 H, Immature Gran % (Auto) 1.200 H, Neut % (Auto) 84.3 H, Lymph % (Auto) 11.8 L, [place] % (Auto) 2.7, Eos % (Auto) 0.0, Baso % (Auto) 0.0, Absolute Neuts (auto) 6.6, Nucleated RBC % 0, Sodium 141, Potassium 4.2, Chloride 114 H, Carbon Dioxide 22.0, Anion Gap 5, BUN 25 H, Creatinine 1.37 H, Est GFR (MDRD) Af Amer 64, Est GFR (MDRD) Non-Af 53 L, BUN/Creatinine Ratio 18.2, Glucose 119 H, Calcium 9.5, Magnesium 2.5, Triglycerides 91, Cholesterol 142, LDL Cholesterol 59, VLDL Cholesterol 18, HDL Cholesterol 65 Rhythm: EKG: ECHO: Stress Test: Cardiac Cath: PCI: CT Surgery: Holter monitor: EPS: PPM: CXR: Chest CT Scan: Documented by User: Dr. Jah Ortiz MD 09/25/23 17:18 Assessment & Plan Assessment/Plan (1) CAD (coronary artery disease): (2) Hypertension: (3) GERD (gastroesophageal reflux disease): (4) Atrial fibrillation with RVR: PLAN: Plan Cardiac care plan recommendation; 83-year-old patient with history of A-fib/RVR Patient had history of CAD with status post CABG and stenting Had TIA Hypertension, GERD presentation with retrosternal chest discomfort. And he had palpitation with racing of his heart. When he was seen in the ED his heart ratewas in the range of around 100 with underlying atrial fibrillation His rate did improve with the calcium channel bryan Cardizem. Based on his [id number] score high risk for stroke And is elderly with elevated creatinine agree with the low-dose Eliquis 2.5 mg twice daily He had other medical problems with history of GERD, hypertension osteoarthritis of the hip and CKD From cardiac standpoint would recommend to continue on the anticoagulation as well as rate control. Patient had a history of CAD with prior CABG and will Covid recommend to continue platelet with the change to beta-bryan which was increased to metoprolol Plavix and succinate 50 twice daily Statin and Zetia with a target LDL level of around 70sWith atorvastatin, long- acting /isosorbide mononitrate From cardiac standpoint would recommend outpatient follow-up. Once his rate is controlled he can be workup with Myocardial perfusion study . HPI Consult Data Date of Consult: 09/25/23 [facility] Medical History (Updated 09/24/23 @ 18:28 by Stephanie Vivas) CAD (coronary artery disease) Former tobacco use GERD (gastroesophageal reflux disease) History of chronic hypertension HLD (hyperlipidemia) Hypertension Kidney disease Myocardial infarct Right leg weakness Vertigo Home Medications clopidogrel 75 mg tablet 75 mg PO DAILY anti platelet 08/23/19 [History Last Taken 06/25/21] isosorbide mononitrate 30 mg tablet,extended release 24 hr 15 mg PO DAILY HEART 08/23/19 [History Last Taken 06/25/21] metoprolol succinate 25 mg tablet,extended release 24 hr 25 mg PO DAILY blood pressure 08/23/19 [History Last Taken 06/25/21] cyclobenzaprine 5 mg tablet 5 mg PO QHS MUSCLE 06/25/21 [History Last Taken 06/24/21] gabapentin 400 mg capsule 400 mg PO BID NERVE PAIN 06/25/21 [History Last Taken 06/25/21] pantoprazole 20 mg tablet,delayed release 20 mg PO BID GERD 06/25/21 [History Last Taken 06/25/21] simvastatin 40 mg tablet 40 mg PO DAILY CHOLESTEROL 06/25/21 [History Last Taken 06/24/21] trazodone 50 mg tablet 50 mg PO QHS SLEEP 06/25/21 [History Last Taken 06/24/21] ezetimibe 10 mg tablet 10 mg PO DAILY 09/24/23 [History Last Taken Unknown] Allergy/AdvReac Type Severity Reaction Status Date / Time Sulfa (Sulfonamide Allergy Unknown Verified 09/24/23 14:02 Antibiotics) Family History Mother Heart disease Father Heart disease Surgical History H/O right heart catheterization S/p bilateral carpal tunnel release S/P bilateral cataract extraction S/P bilateral foot surgery S/P CABG x 3 S/P tonsillectomy and adenoidectomy Status post arthroscopic knee surgery Stented coronary artery Social History household members: spouse Smoking Status: Former smoker how long ago did patient quit smoking: Quit when he was 44 y/o, 1/2 ppd since 10 years old. alcohol intake: never substance use type: does not use Physical Exam Cardio Cardio Narrative: Seen and evaluated and examined at bedside Underlying cardiac rhythm is A-fib Cardiac exam S1-S2 is regular Chest exam is clear to auscultation Examination lower extremity no lower extremity edema noted. Lab / Micro Data 09/25/23 05:30 09/25/23 05:30 09/25/23 1720 <Electronically signed by Jah Ortiz MD> Cosigner Signature (if applicable): 09/25/23 1626 <Electronically signed by Paris ALEJANDRA PA> CC: Dr. Jah Ortiz MD; Dr. Fiorella Ramos MD; [place] Perera~ Signed [facility] Work Phone: 1(618) 229-765102-02-2024 History of Present illness Narrative* Beryl Kuhn RN - 09/25/2023 2:13 PM EST CD Telephonic Outreach Provider Action/FYI Contacted for: Routine Telephonic Outreach Contact made with patient: No, left message. Beryl Kuhn RN September 25, 2023 2:17 PM Care Coordination next call- CKD HTN lvm x2 Last CDM outreach contact: 08/27 - No cdm concerns. limping ; legs hurting again. chronic; not new. Ongoing for a year. Has appt 09/07 PCP and Ortho Shots wore out. 168 lbs gained 4 lbs since Thanksgiving Baseline: 03/09/23 ADL, FALL, GOAL due: 05/08/24. Chronic disease goal - 03/09/23 -CKD -reviewed CDK zones. 07/03/23 - HTN. 07/03/23- Reviewed renal diet and HTN goals SDOH transportation and food insecurity completed: 01/07/23 * Beryl Kuhn RN - 09/25/2023 11:12 AM EST CDM Telephonic Outreach Provider Action/FYI Contacted for: Routine Telephonic Outreach Contact made with patient: No, left message. Beryl Kuhn RN September 25, 2023 11:16 AM [facility] History and physical note Author Fiorella Ramos [facility] September 24, 2023 4:47pm Note Date/Time September 24, 2023 4 :22pm [facility] Medical Records Department [address] [place] [address] H&P Exam - Hospitalist 09/24/23 1606 MR#: [id number] Acct: [id number] Name: ANGIE DUTTON Rep #:[id number] : 1940 83 From: Fiorella Ramos MD PCP: [place] Perera Status:ADM I N Location: [place] [address] HPI - General General Date of Admission: 09/24/23 Date of Service: 09/24/23 Chief Complaint: Chest pain, racing heart HPI Narrative ANGIE DUTTON, is an 83-year-old male with history of CAD status post CABG and stenting, TIA, hypertension, GERD who presented to [facility] 09/24/2023 with retrosternal chest discomfort. It started at about 11 AM when he was at the grocery store and lasted for 10 seconds and went away. When he went home and started to walk the dog the discomfort came back and he noticed that his heart was racing. He held his Plavix for 5 days prior to getting a hip injection yesterday and his right hip denies any other anticoagulation or history of A-fib. In the ED patient initially with heart rate in low 100s and blood pressure 158/97 saturating 99% on room air. Patient with white blood cellcount of 20.2, creatinine 1.52 with unclear baseline, BNP 548 with a D-dimer of 0.66. Initial troponin within normal limits. Chest x- ray with increased markings at left lung base with blunting of left costophrenic angle. Patient found to be in A-fib with RVR. Given new onset A-fib with RVR, elevated BNP, elevated white blood cell count hospitalist contacted for admission. Patient evaluated at bedside and he reports the brief feeling of chest pain and shortness of breath for 10 to 20 seconds at the grocery store that resolved and came back when he was walking his dog, symptoms resolved after he was given Cardizem in the ED and heart rate improved. Denies any swelling, reports some chronic diarrhea but denies any other focal complaints. [facility] Medical History (Updated 09/24/23 @ 16:[address] Fiorella Ramos MD) CAD (coronary artery disease) Former tobacco use GERD (gastroesophageal reflux disease) History of chronic hypertension HLD (hyperlipidemia) Hypertension Myocardial infarct Right leg weakness Vertigo Home Medications clopidogrel 75 mg tablet 75 mg PO DAILY anti platelet 08/23/19 [History Last Taken 06/25/21] isosorbide mononitrate 30 mg tablet,extended release 24 hr 15 mg PO DAILY HEART 08/23/19 [History Last Taken 06/25/21] metoprolol succinate 25 mg tablet,extended release 24 hr 25 mg PO DAILY blood pressure 08/23/19 [History Last Taken 06/25/21] cyclobenzaprine 5 mg tablet 5 mg PO QHS MUSCLE 06/25/21 [History Last Taken 06/24/21] gabapentin 400 mg capsule 400 mg PO BID NERVE PAIN 06/25/21 [History Last Taken 06/25/21] pantoprazole 20 mg tablet,delayed release 20 mg PO BID GERD 06/25/21 [History Last Taken 06/25/21] simvastatin 40 mg tablet 40 mg PO DAILY CHOLESTEROL 06/25/21 [History Last Taken 06/24/21] trazodone 50 mg tablet 50 mg PO QHS SLEEP 06/25/21 [History Last Taken 06/24/21] ezetimibe 10 mg tablet 10 mg PO DAILY 09/24/23 [History Last Taken Unknown] Allergy/AdvReac Type Severity Reaction Status Date / Time Sulfa (Sulfonamide Allergy Unknown Verified 09/24/23 14:02 Antibiotics) Family History Mother Heart disease Father Heart disease Surgical History H/O right heart catheterization S/p bilateral carpal tunnel release S/P bilateral cataract extraction S/P bilateral foot surgery S/P CABG x 3 S/P tonsillectomy and adenoidectomy Status post arthroscopic knee surgery Stented coronary artery Social History household members: spouse Smoking Status: Former smoker how long ago did patient quit smoking: Quit when he was 44 y/o, 1/2 ppd since 10 years old. alcohol intake: never substance use type: does not use ROS ROS Narrative General: Denies fever/chills HENT: Denies headache, denies stuffy nose, denies sore throat EYES: Denies changes in vision Resp: Denies cough, denies shortness of breath Cardiac: Had some chest discomfort and racing feeling GI: Some chronic diarrhea denies nausea/vomiting : Denies changes in urination Extremity: Denies swelling MSK: Denies weakness Neuro: Denies any numbness/tingling Heme: Denies any bleeding or bruising Skin: Denies rashes Psychiatric: No complaints voiced Vital Signs Vital Signs Vital Signs: 09/24/23 14:02 09/24/23 14:08 09/24/23 14:11 Temperature 97.2 F L Temperature Source Temporal Pulse Rate 108 H 123 H Respiratory Rate 18 16 Respiratory Effort Normal Non-Labored Blood Pressure 158/97 H 161/86 H Blood Pressure Mean 117 111 Pulse Ox 99 97 Oxygen Delivery Method Room Air Room Air 09/24/23 14:53 09/24/23 15:27 09/24/23 15:28 Temperature Temperature Source Pulse Rate 88 86 88 Respiratory Rate 16 18 18 Respiratory Effort Blood Pressure 141/72 H 108/72 116/89 H Blood Pressure Mean 95 84 98 Pulse Ox 96 98 96 Oxygen Delivery Method Room Air Room Air Weight Weight: 79.107 kg Body Mass Index (BMI) 27.3 Physical Exam Narrative General: Alert, oriented, no apparent distress HEENT: Atraumatic, normocephalic Eyes: Anicteric, normal conjunctiva, extraocular movements grossly intact Neck: Supple Respiratory: Somewhat diminished at the bases, normal respiratory effort Cardiovascular: Irregularly irregular GI: Soft, nontender, nondistended Extremities: No edema Musculoskeletal: Moving all extremities Neuro: No overt focal neurological deficits Skin: No rashes appreciated Psych: Cooperative Results Lab / Micro Data 09/24/23 14:10 09/24/23 14:10 Labs: Laboratory Results - last 24 hr 09/24/23 14:10: WBC 20.2 H, RBC 5.03, Hgb 14.4, Hct 44.7, MCV 88.9, MCH 28.6, MCHC 32.2, RDW Std Deviation 44.0 H, RDW Coeff of Jaqueline 13.7, Plt Count 135 L, MPV12.7 H, Immature Gran % (Auto) 1.200 H, Neut % (Auto) 90.0 H, Lymph % (Auto) 6.5L, [place] % (Auto) 2.1, Eos % (Auto) 0.0, Baso % (Auto) 0.2, Absolute Neuts (auto)18.2 H, Absolute Lymphs (auto) 1.31, Nucleated RBC % 0, PT 13.5, INR 1.0, D-Dimer Quant (PE/DVT) 0.66 H*, Sodium 140, Potassium 4.3, Chloride 110 H, Carbon Dioxide 25.0, Anion Gap 5, BUN 17, Creatinine 1.52 H, Estim Creat Clear Calc 33.22, Est GFR (MDRD) Af Amer 56 L, Est GFR (MDRD) Non-Af 47 L, BUN/Creatinine Ratio 11.2, Glucose 123 H, Calcium 10.0, Troponin I High Sens 40, B-Natriuretic Peptide 548.5 H 09/24/23 14:55: Lactic Acid 1.7 09/24/23 15:11: Urine Color Yellow, Urine Clarity Clear, Urine pH 6.0, Ur Specific Garwin 1.010, Urine Protein 15 H, Urine Glucose (UA) Normal, Urine Ketones Negative, Urine Occult Blood 50 H, Urine Nitrite Negative, Urine Bilirubin Negative, Urine Urobilinogen Normal, Ur Leukocyte Esterase Negative, Urine RBC 0 SEEN, Urine WBC 0 SEEN, Ur Squamous Epith Cells 0 SEEN, Urine Bacteria 0 SEEN, Urine Mucus 0 SEEN Imaging Radiology Impression Chest X-Ray 09/24/23 14:28 IMPRESSION: Increased markings at the left lung base with blunting of the left costophrenic angle. Follow-up recommended. Electronically Signed: Juan Valdivia MD at 14:52 EST , Assessment & Plan Assessment/Plan (1) Atrial fibrillation with RVR: (2) Osteoarthritis of right hip: QUALIFIERS: Osteoarthritis type: unspecified Qualified Code(s): M16.11 - Unilateral primary osteoarthritis, right hip (3) GERD (gastroesophageal reflux disease): (4) Hypertension: (5) CAD (coronary artery disease): PLAN: Plan # Chest pain in setting of A-fib with RVR -Found to be in afib w/ rvr on EKG on presentation, given dose of cardizem w/ improvement -Admit to telemetry -Increase home metoprolol for rate control, will increase to 50 mg daily so we will give an extra 25 x 1 -Elevated [id number], will start eliquis. Given age greater than 80 and creatinine greater than 1.5 technically meets criteria for the 2.5 twice daily of Eliquis, if creatinine improves tomorrow may be able to convert to the 5 twice daily dosing -BNP 548 without any previous values -CXR w/ increased markings at L lung base w/ blunting of L costophrenic angle -Will obtain echo, last echo 2020 EF 65%, RVSP 36 and flow suggestive of diastolic dysfunction -Initial troponin 40, Trend troponin -Daily weights, I's and O's -Will check TSH -Elevated heart score of 5, may need stress prior to d/c or after d/c pending findings #Hx CAD w/ CABG/PCI and hx TIA -Plavix, statin, Zetia, beta-bryan, Imdur -Lipid panel in AM -Echo -Elevated heart score, pending workup and stability of HR may need further cardiac w/u inpt vs outpt # Leukocytosis -White blood cell count of 20.2 with left shift -Unclear significance, ?related to steroid injection of R hip -UA negative for ifxn -Blood culture sent in ED -Will check Pro-William -Given new onset A-fib we will also check viral panels -If significantly elevated procal or if any other signs or symptoms of infectionwill start antibiotics, if not we will await cultures #CKD stage III unclear subtype -Creatinine 1.52 -Other values were from 2020 in our system but clinisync reveals Cr 1.36 on 04/14/23 -BUN within normal limits, patient does not appear to be dehydrated -Repeat BMP in a.m., if worsening can consider further workup #GERD -Continue PPI #HTN -Continue home medications #OA of R hip -s/p injection 09/23 w/ IR #DVT ppx: Kane Ramos MD Charges/Coding Visit Charges Inpatient E&M: 52981 Init Hosp L2 09/24/23 1647 <Electronically signed by Fiorella Ramos MD> Cosigner Signature (if applicable): CC: Dr. Fiorella Ramos MD; [place] Perera~ Signed [facility] Work Phone: 1(192) 547-854702-01-2024 Discharge summary Author Rudy Sin [facility] September 24, 2023 4:18pm Note Date/Time September 24, 2023 2 :43pm [facility] Medical Records Department [address] [place] [address] Emergency Department Summary 09/24/23 MR#: [id number] Acct: [id number] Name: ANGIE DUTTON Rep #:[id number] : 1940 83 From: Rudy Sin DO PCP: [place] Perera Status:REG E R Location: ED HPI History of Present Illness Chief Complaint: Chest Pain Narrative Narrative: 83-year-old male with history of CAD, CABG, cardiac stent, TIA presenting with chest discomfort. He states that in the retrosternal area. He states at about 11 AM while he was at the grocery store. Last about 10 seconds. Patient stateshe did fine. He went home and started to walk the dog with the discomfort came back and he noticed that his heart is racing. He denies any history of A-fib. He is not on any anticoagulation other than Plavix. Patient states he had this held for about 5 days prior to getting a right hip injection yesterday here at [facility] hypertension patient denies history of DVT/PE patient presents to the I does not have any current risk factors other than procedure yesterday. Patient states his last stress test and echocardiogram were over a year ago at outside facility. [facility] Medical History (Updated 09/24/23 @ 16:[address] Fiorella Ramos MD) CAD (coronary artery disease) Former tobacco use GERD (gastroesophageal reflux disease) History of chronic hypertension HLD (hyperlipidemia) Hypertension Myocardial infarct Right leg weakness Vertigo Home Medications clopidogrel 75 mg tablet 75 mg PO DAILY anti platelet 08/23/19 [History Last Taken 06/25/21] isosorbide mononitrate 30 mg tablet,extended release 24 hr 15 mg PO DAILY HEART 08/23/19 [History Last Taken 06/25/21] metoprolol succinate 25 mg tablet,extended release 24 hr 25 mg PO DAILY blood pressure 08/23/19 [History Last Taken 06/25/21] cyclobenzaprine 5 mg tablet 5 mg PO QHS MUSCLE 06/25/21 [History Last Taken 06/24/21] gabapentin 400 mg capsule 400 mg PO BID NERVE PAIN 06/25/21 [History Last Taken 06/25/21] pantoprazole 20 mg tablet,delayed release 20 mg PO BID GERD 06/25/21 [History Last Taken 06/25/21] simvastatin 40 mg tablet 40 mg PO DAILY CHOLESTEROL 06/25/21 [History Last Taken 06/24/21] trazodone 50 mg tablet 50 mg PO QHS SLEEP 06/25/21 [History Last Taken 06/24/21] ezetimibe 10 mg tablet 10 mg PO DAILY 09/24/23 [History Last Taken Unknown] Allergy/AdvReac Type Severity Reaction Status Date / Time Sulfa (Sulfonamide Allergy Unknown Verified 09/24/23 14:02 Antibiotics) Family History Mother Heart disease Father Heart disease Surgical History H/O right heart catheterization S/p bilateral carpal tunnel release S/P bilateral cataract extraction S/P bilateral foot surgery S/P CABG x 3 S/P tonsillectomy and adenoidectomy Status post arthroscopic knee surgery Stented coronary artery Social History household members: spouse Smoking Status: Former smoker how long ago did patient quit smoking: Quit when he was 44 y/o, 1/2 ppd since 10 years old. alcohol intake: never substance use type: does not use ROS ROS ED Constitutional Constitutional ED: Denies chills, fever(s) or sweats Eyes Eyes: Denies blurry vision or change in vision ENT ENT ED: Denies ear pain or sore throat Cardiovascular Cardiovascular: Reports chest pain and palpitations; Denies racing heartbeat Respiratory/Chest Respiratory/Chest: Denies cough, dyspnea or sputum Gastrointestinal Gastrointestinal: Denies abdominal pain, constipation, diarrhea, nausea or vomiting Genitourinary Genitourinary ED: Denies dysuria, hematuria or urinary frequency Musculoskeletal Musculoskeletal: Denies arthralgias, myalgias or neck pain Integumentary Denies abscess, Abrasions or rash Neurologic Neurologic: Denies headache(s), paresthesias or weakness Psychiatric Psychiatric: Denies anxiety, depression, suicidal ideation or suicidal thoughts Endocrine Endocrinology: Denies polydipsia or polyuria EXAM Physical Exam Const Vital Signs: 09/24/23 14:02 09/24/23 14:08 09/24/23 14:11 Temperature 97.2 F L Temperature Source Temporal Pulse Rate 108 H 123 H Respiratory Rate 18 16 Respiratory Effort Normal Non-Labored Blood Pressure 158/97 H 161/86 H Blood Pressure Mean 117 111 Pulse Ox 99 97 Oxygen Delivery Method Room Air Room Air 09/24/23 14:53 09/24/23 15:27 09/24/23 15:28 Temperature Temperature Source Pulse Rate 88 86 88 Respiratory Rate 16 18 18 Respiratory Effort Blood Pressure 141/72 H 108/72 116/89 H Blood Pressure Mean 95 84 98 Pulse Ox 96 98 96 Oxygen Delivery Method Room Air Room Air Positive well nourished General Appearance ED: NAD; Negative for pallor HEENT Reports moist mucous membranes normocephalic and atraumatic Eyes PERRL and EOMs intact bilaterally Chest Wall inspection of chest normal Resp normal respiratory effort and clear to auscultation bilaterally Cardio Rate: tachycardic Rhythm: abnormal rhythm irregularly irregular GI normal to inspection, nondistended, normoactive bowel sounds Neuro oriented x3 and CN's II-XII intact bilaterally Sensorium / Orientation: awake and alert Motor Exam: strength 5/5 throughout Psych mental status grossly normal Skin no rashes or lesions noted General Skin Exam: Negative for jaundice or pallor Heart Score History: Moderately Suspicious ECG: Normal Age: >/= 65 years Risk Factors: >/= 3 Risk Factors or History of CAD Troponin: </= Normal Limit Score: 5 MDM MDM MDM Narrative Medical decision making narrative: 83-year-old male presenting with chest pain/discomfort which started today at 11AM and then returned again after he went home and walk the dog. He states that episode lasted about 20 seconds and now he just has a rapid heart rate. Denies shortness of breath, lightheadedness, nausea, vomiting. Differential includes but is not limited to ACS, PE, pneumonia, pneumothorax, muscle strain, costochondritis, dehydration, electrolyte abnormalities, CHF, A-fib. EKG was obtained and on my interpretation shows atrial fibrillation with rapid ventricular response at 132 bpm. Patient given 20 of Cardizem, 1 L of IV fluids. She can aspirin 324 mg. CBC obtained to assess white blood cell count,hemoglobin, platelets. BMP to assess renal function, electrolytes, glucose, anion gap. High-sensitivity troponin rule ischemia. BNP to rule out CHF. D-dimer is I cannot PERC the patient due to tachycardia. Chest x- ray will be obtained to rule out CHF or pneumonia. CBC came back elevated at 20.2 and giventhe patient's tachycardia sepsis workup was pursued. Lactic acid, PT/INR, bloodcultures, urinalysis, urine cultures all obtained. I was able to log into [facility] [employer], and I was able to find pertinent medical records available for reviewto compare to the patient's current lab/imaging/workup. Creatinine today is 1.52. Review of the medical record shows that this was 1.36 on 04/14/2023. High-sensitivity troponin is 4. CBC again with leukocytosis of 20.2 with left shift. Hemoglobin stable 14.4. Platelets are 135. This is not new for him. Patient's troponin today is 40. Lactic acid came back within normal limits at 1.7. Coagulation studies are normal. D-dimer negative. Chest x-ray my interpretation does not show any acute process. Patient heart rate is now on 88. He is doing well. Discussed with hospitalist for admission for chest pain and A-fib which is new onset. Impression: 1. Chest pain 2. New onset A-fib 3. Leukocytosis. Lab Data Attestation: I reviewed the patient's lab results. Labs: Laboratory Results - last 24 hr 09/24/23 09/24/23 09/24/23 14:10 14:55 15:11 WBC 20.2 H RBC 5.03 Hgb 14.4 Hct 44.7 MCV 88.9 MCH 28.6 MCHC 32.2 RDW Std Deviation 44.0 H RDW Coeff of Jaqueline 13.7 Plt Count 135 L MPV 12.7 H Immature Gran % (Auto) 1.200 H Neut % (Auto) 90.0 H Lymph % (Auto) 6.5 L [place] % (Auto) 2.1 Eos % (Auto) 0.0 Baso % (Auto) 0.2 Absolute Neuts (auto) 18.2 H Absolute Lymphs (auto) 1.31 Nucleated RBC % 0 PT 13.5 INR 1.0 D-Dimer Quant (PE/DVT) 0.66 H* Sodium 140 Potassium 4.3 Chloride 110 H Carbon Dioxide 25.0 Anion Gap 5 BUN 17 Creatinine 1.52 H Estim Creat Clear Calc 33.22 Est GFR (MDRD) Af Amer 56 L Est GFR (MDRD) Non-Af 47 L BUN/Creatinine Ratio 11.2 Glucose 123 H Lactic Acid 1.7 Calcium 10.0 Troponin I High Sens 40 B-Natriuretic Peptide 548.5 H Urine Color Yellow Urine Clarity Clear Urine pH 6.0 Ur Specific Garwin 1.010 Urine Protein 15 H Urine Glucose (UA) Normal Urine Ketones Negative Urine Occult Blood 50 H Urine Nitrite Negative Urine Bilirubin Negative Urine Urobilinogen Normal Ur Leukocyte Esterase Negative Urine RBC 0 SEEN Urine WBC 0 SEEN Ur Squamous Epith Cells 0 SEEN Urine Bacteria 0 SEEN Urine Mucus 0 SEEN Radiography Diagnostic Testing: Clinical Impression(s) from Imaging Studies Chest X-Ray 09/24/23 14:28 IMPRESSION: Increased markings at the left lung base with blunting of the left costophrenic angle. Follow-up recommended. Electronically Signed: Juan Valdivia MD at 14:52 EST , Discharge Plan Triage Chief Complaint: Chest Pain ED Provider: Rudy Sin Dx/Rx/DC Orders Prescriptions: No Action isosorbide mononitrate 30 MG tablet extended release 24 hr 15 mg PO DAILY clopidogrel 75 MG tablet 75 mg PO DAILY metoprolol succinate 25 MG tablet extended release 24 hr 25 mg PO DAILY trazodone 50 mg tablet 50 mg PO QHS gabapentin 400 mg capsule 400 mg PO BID simvastatin 40 mg tablet 40 mg PO DAILY pantoprazole 20 mg tablet,delayed release (DR/EC) 20 mg PO BID cyclobenzaprine 5 mg tablet 5 mg PO QHS ezetimibe 10 mg tablet 10 mg PO DAILY Primary Care Provider: Lizeth Saini Referrals: Lizeth Saini, PA [Primary Care Provider] - What to do if you have Problems For any increased pain, shortness of breath, bleeding, nausea or vomiting, chestpain, or any unexpected problems, contact your Primary Care Provider. Call [facility] ([phone]) or report to the closest Emergency Room. Call 911 if necessary. 09/24/23 1618 <Electronically signed by Rudy Sin DO> Cosigner Signature (if applicable): CC: [place] Perera ~ Signed [facility] Work Phone: [phone] 608-782202-01-2024 Miscellaneous Notes* Telephone Encounter - Marychuy Bo Ma - 09/24/2023 4:55 PM EST ER report received. Patient admitted for new onset A-fib. High sensitivity troponin is 40. Marychuy Bo Ma * Telephone Encounter - Marychuy Bo Ma - 09/24/2023 1:56 PM EST Patient stopped by the office because the phone lines were down. Patient is complaining of racing heart rate and chest pain. He was out at the grocery store when itstarted. He went home and checked his blood pressure and pulse. He states his BP was normal (could not remember the the value) but his pulse was 145 bpm. The provider is currently out of the office. We had the patient sit down to check blood pressure and pulse. He denied shortness of breath. He has some dizziness. Having current slight chest pain that comes and goes in the office. Blood pressure 154/80, 129/73. Pulse: 130, 74, continues to go up and down onthe pulse ox. Went and got Anali Wick CNP to evaluate patient. She listened to his heart and noted his pulse was racing and felt he needed to be evaluated in the emergency room with all his current symptoms. She advised patient and his . They were agreeable and were heading to [facility]. Marychuy Bo Ma documented in this [facility]The [facility] Discharge summary Author Rudy Sin [facility] September 24, 2023 4:18pm Note Date/Time September 24, 2023 2 :43pm [facility] Medical Records Department [address] [place] [address] Emergency Department Summary 09/24/23 MR#: [id number] Acct: [id number] Name: ANGIE DUTTON Rep #:[id number] : 1940 83 From: Rudy Sin DO PCP: [place] Perera Status:REG E R Location: ED HPI History of Present Illness Chief Complaint: Chest Pain Narrative Narrative: 83-year-old male with history of CAD, CABG, cardiac stent, TIA presenting with chest discomfort. He states that in the retrosternal area. He states at about 11 AM while he was at the grocery store. Last about 10 seconds. Patient stateshe did fine. He went home and started to walk the dog with the discomfort came back and he noticed that his heart is racing. He denies any history of A-fib. He is not on any anticoagulation other than Plavix. Patient states he had this held for about 5 days prior to getting a right hip injection yesterday here at [facility] hypertension patient denies history of DVT/PE patient presents to the I does not have any current risk factors other than procedure yesterday. Patient states his last stress test and echocardiogram were over a year ago at outside facility. [facility] Medical History (Updated 09/24/23 @ 16:[address] Fiorella Ramos MD) CAD (coronary artery disease) Former tobacco use GERD (gastroesophageal reflux disease) History of chronic hypertension HLD (hyperlipidemia) Hypertension Myocardial infarct Right leg weakness Vertigo Home Medications clopidogrel 75 mg tablet 75 mg PO DAILY anti platelet 08/23/19 [History Last Taken 06/25/21] isosorbide mononitrate 30 mg tablet,extended release 24 hr 15 mg PO DAILY HEART 08/23/19 [History Last Taken 06/25/21] metoprolol succinate 25 mg tablet,extended release 24 hr 25 mg PO DAILY blood pressure 08/23/19 [History Last Taken 06/25/21] cyclobenzaprine 5 mg tablet 5 mg PO QHS MUSCLE 06/25/21 [History Last Taken 06/24/21] gabapentin 400 mg capsule 400 mg PO BID NERVE PAIN 06/25/21 [History Last Taken 06/25/21] pantoprazole 20 mg tablet,delayed release 20 mg PO BID GERD 06/25/21 [History Last Taken 06/25/21] simvastatin 40 mg tablet 40 mg PO DAILY CHOLESTEROL 06/25/21 [History Last Taken 06/24/21] trazodone 50 mg tablet 50 mg PO QHS SLEEP 06/25/21 [History Last Taken 06/24/21] ezetimibe 10 mg tablet 10 mg PO DAILY 09/24/23 [History Last Taken Unknown] Allergy/AdvReac Type Severity Reaction Status Date / Time Sulfa (Sulfonamide Allergy Unknown Verified 09/24/23 14:02 Antibiotics) Family History Mother Heart disease Father Heart disease Surgical History H/O right heart catheterization S/p bilateral carpal tunnel release S/P bilateral cataract extraction S/P bilateral foot surgery S/P CABG x 3 S/P tonsillectomy and adenoidectomy Status post arthroscopic knee surgery Stented coronary artery Social History household members: spouse Smoking Status: Former smoker how long ago did patient quit smoking: Quit when he was 44 y/o, 1/2 ppd since 10 years old. alcohol intake: never substance use type: does not use ROS ROS ED Constitutional Constitutional ED: Denies chills, fever(s) or sweats Eyes Eyes: Denies blurry vision or change in vision ENT ENT ED: Denies ear pain or sore throat Cardiovascular Cardiovascular: Reports chest pain and palpitations; Denies racing heartbeat Respiratory/Chest Respiratory/Chest: Denies cough, dyspnea or sputum Gastrointestinal Gastrointestinal: Denies abdominal pain, constipation, diarrhea, nausea or vomiting Genitourinary Genitourinary ED: Denies dysuria, hematuria or urinary frequency Musculoskeletal Musculoskeletal: Denies arthralgias, myalgias or neck pain Integumentary Denies abscess, Abrasions or rash Neurologic Neurologic: Denies headache(s), paresthesias or weakness Psychiatric Psychiatric: Denies anxiety, depression, suicidal ideation or suicidal thoughts Endocrine Endocrinology: Denies polydipsia or polyuria EXAM Physical Exam Const Vital Signs: 09/24/23 14:02 09/24/23 14:08 09/24/23 14:11 Temperature 97.2 F L Temperature Source Temporal Pulse Rate 108 H 123 H Respiratory Rate 18 16 Respiratory Effort Normal Non-Labored Blood Pressure 158/97 H 161/86 H Blood Pressure Mean 117 111 Pulse Ox 99 97 Oxygen Delivery Method Room Air Room Air 09/24/23 14:53 09/24/23 15:27 09/24/23 15:28 Temperature Temperature Source Pulse Rate 88 86 88 Respiratory Rate 16 18 18 Respiratory Effort Blood Pressure 141/72 H 108/72 116/89 H Blood Pressure Mean 95 84 98 Pulse Ox 96 98 96 Oxygen Delivery Method Room Air Room Air Positive well nourished General Appearance ED: NAD; Negative for pallor HEENT Reports moist mucous membranes normocephalic and atraumatic Eyes PERRL and EOMs intact bilaterally Chest Wall inspection of chest normal Resp normal respiratory effort and clear to auscultation bilaterally Cardio Rate: tachycardic Rhythm: abnormal rhythm irregularly irregular GI normal to inspection, nondistended, normoactive bowel sounds Neuro oriented x3 and CN's II-XII intact bilaterally Sensorium / Orientation: awake and alert Motor Exam: strength 5/5 throughout Psych mental status grossly normal Skin no rashes or lesions noted General Skin Exam: Negative for jaundice or pallor Heart Score History: Moderately Suspicious ECG: Normal Age: >/= 65 years Risk Factors: >/= 3 Risk Factors or History of CAD Troponin: </= Normal Limit Score: 5 MDM MDM MDM Narrative Medical decision making narrative: 83-year-old male presenting with chest pain/discomfort which started today at 11AM and then returned again after he went home and walk the dog. He states that episode lasted about 20 seconds and now he just has a rapid heart rate. Denies shortness of breath, lightheadedness, nausea, vomiting. Differential includes but is not limited to ACS, PE, pneumonia, pneumothorax, muscle strain, costochondritis, dehydration, electrolyte abnormalities, CHF, A-fib. EKG was obtained and on my interpretation shows atrial fibrillation with rapid ventricular response at 132 bpm. Patient given 20 of Cardizem, 1 L of IV fluids. She can aspirin 324 mg. CBC obtained to assess white blood cell count,hemoglobin, platelets. BMP to assess renal function, electrolytes, glucose, anion gap. High-sensitivity troponin rule ischemia. BNP to rule out CHF. D-dimer is I cannot PERC the patient due to tachycardia. Chest x- ray will be obtained to rule out CHF or pneumonia. CBC came back elevated at 20.2 and giventhe patient's tachycardia sepsis workup was pursued. Lactic acid, PT/INR, bloodcultures, urinalysis, urine cultures all obtained. I was able to log into [facility], and I was able to find pertinent medical records available for reviewto compare to the patient's current lab/imaging/workup. Creatinine today is 1.52. Review of the medical record shows that this was 1.36 on 04/14/2023. High-sensitivity troponin is 4. CBC again with leukocytosis of 20.2 with left shift. Hemoglobin stable 14.4. Platelets are 135. This is not new for him. Patient's troponin today is 40. Lactic acid came back within normal limits at 1.7. Coagulation studies are normal. D-dimer negative. Chest x-ray my interpretation does not show any acute process. Patient heart rate is now on 88. He is doing well. Discussed with hospitalist for admission for chest pain and A-fib which is new onset. Impression: 1. Chest pain 2. New onset A-fib 3. Leukocytosis. Lab Data Attestation: I reviewed the patient's lab results. Labs: Laboratory Results - last 24 hr 09/24/23 09/24/23 09/24/23 14:10 14:55 15:11 WBC 20.2 H RBC 5.03 Hgb 14.4 Hct 44.7 MCV 88.9 MCH 28.6 MCHC 32.2 RDW Std Deviation 44.0 H RDW Coeff of Jaqueline 13.7 Plt Count 135 L MPV 12.7 H Immature Gran % (Auto) 1.200 H Neut % (Auto) 90.0 H Lymph % (Auto) 6.5 L [place] % (Auto) 2.1 Eos % (Auto) 0.0 Baso % (Auto) 0.2 Absolute Neuts (auto) 18.2 H Absolute Lymphs (auto) 1.31 Nucleated RBC % 0 PT 13.5 INR 1.0 D-Dimer Quant (PE/DVT) 0.66 H* Sodium 140 Potassium 4.3 Chloride 110 H Carbon Dioxide 25.0 Anion Gap 5 BUN 17 Creatinine 1.52 H Estim Creat Clear Calc 33.22 Est GFR (MDRD) Af Amer 56 L Est GFR (MDRD) Non-Af 47 L BUN/Creatinine Ratio 11.2 Glucose 123 H Lactic Acid 1.7 Calcium 10.0 Troponin I High Sens 40 B-Natriuretic Peptide 548.5 H Urine Color Yellow Urine Clarity Clear Urine pH 6.0 Ur Specific [place] 1.010 Urine Protein 15 H Urine Glucose (UA) Normal Urine Ketones Negative Urine Occult Blood 50 H Urine Nitrite Negative Urine Bilirubin Negative Urine Urobilinogen Normal Ur Leukocyte Esterase Negative Urine RBC 0 SEEN Urine WBC 0 SEEN Ur Squamous Epith Cells 0 SEEN Urine Bacteria 0 SEEN Urine Mucus 0 SEEN Radiography Diagnostic Testing: Clinical Impression(s) from Imaging Studies Chest X-Ray 09/24/23 14:28 IMPRESSION: Increased markings at the left lung base with blunting of the left costophrenic angle. Follow-up recommended. Electronically Signed: Juan Valdivia MD at 14:52 EST Reading Location ID and State: [address] [place] [address] , Service support , Discharge Plan Triage Chief Complaint: Chest Pain ED Provider: Rudy Sin Dx/Rx/DC Orders Prescriptions: No Action isosorbide mononitrate 30 MG tablet extended release 24 hr 15 mg PO DAILY clopidogrel 75 MG tablet 75 mg PO DAILY metoprolol succinate 25 MG tablet extended release 24 hr 25 mg PO DAILY trazodone 50 mg tablet 50 mg PO QHS gabapentin 400 mg capsule 400 mg PO BID simvastatin 40 mg tablet 40 mg PO DAILY pantoprazole 20 mg tablet,delayed release (DR/EC) 20 mg PO BID cyclobenzaprine 5 mg tablet 5 mg PO QHS ezetimibe 10 mg tablet 10 mg PO DAILY Primary Care Provider: Lizeth Saini Referrals: Lizeth Saini PA [Primary Care Provider] - What to do if you have Problems For any increased pain, shortness of breath, bleeding, nausea or vomiting, chestpain, or any unexpected problems, contact your Primary Care Provider. Call [facility] ([phone]) or report to the closest Emergency Room. Call 911 if necessary. 09/24/23 1618 <Electronically signed by Rudy Sin DO> Cosigner Signature (if applicable): CC: [place] Perera ~ Signed [facility] Work Phone: 1(339) 839-105201-31-2024 Procedure [facility] 07-31-2023 History of Present illness Narrative* Beryl Kuhn RN - 07/31/2023 10:52 AM EST CDM Telephonic Outreach Provider Action/FYI Contacted for: Routine Telephonic Outreach Contact made with patient: Yes Patient identified by name and date of . Discussed care with patient Are you experiencing any new or worsening symptoms you need to talk about today? No Disease Specific Do you check your blood pressure at home? Yes, Enter readings: not reported Do you have new or worsening shortness of breath with activity? No Do you feel like you are dehydrated for any reason, including not being able to eat or drink normally, or having less urine/much darker urine than normal for you? No Do you check your daily weight at home? Yes, Have you noticed a sudden gain in weight greater than three pounds in a day or three pounds in a week? No Based on assessment coordinator, the following disposition is advised: No symptoms or symptoms present, not severe. Routed to: No Action Needed EDWARDO Education Provided this Outreach: No Beryl Kuhn RN July 31, 2023 10:55 AM Care Coordination next call- CKD HTN Last CDM outreach contact: 07/31 - No cdm concerns. limping ; legs hurting again. chronic; not new. Shots wore out. 164 lbs Baseline: 03/09/23 ADL, FALL, GOAL due: 05/08/24. Chronic disease goal - 03/09/23 -CKD -reviewed CDK zones. 07/03/23 - HTN. 07/03/23- Reviewed renal diet and HTN goals SDOH transportation and food insecurity completed: 01/07/23 documented in [facility]The [facility] Miscellaneous Notes* Telephone Encounter - Radha Zepeda RN - 06/17/2023 2:34 PM EDT Patient's calling to request refills for Isosorbide and Clopidogrel. Advised new scripts sent to pharmacy on 05/28/23. She will contact [facility] for refills. Radha Zepeda RN documented in this encounterThe [facility]10-13-[facility] History of Present illness Narrative* Beryl Kuhn RN - 06/05/2023 12:17 PM EDT . documented in this encounterThe [facility]10-05-2023 Instructions* Patient Instructions* Lizeth Saini PA-C - 05/28/2023 11:11 AM EDT Stomach Flu (Viral Gastroenteritis) What is stomach flu? Stomach flu is a viral infection that affects the stomach and small intestine. It is also called viral gastroenteritis. The illness is usually brief, lasting 1 to 3 days, but may have intermittent symptoms up to a few weeks. How does it occur? Many different viruses can cause gastroenteritis, including rotaviruses, adenoviruses, and the [place] virus. Gastroenteritis is caused by swallowing one of these viruses. The body fluids of infectedpeople contain the virus, sometimes even before their symptoms begin. The virus can be spread by direct contact with an infected person (for example, kissing or shaking hands) or by sharing food, drink, or eating utensils. The virus enters the stomach and intestine and inflames the lining of these organs. As a result, the stomach and intestine are temporarily unable to perform their usual functions. The virus can also cause food to move more rapidly through your gastrointestinal (GI) tract. Some bacteria, parasites, medicines, or other medical conditions can cause infections that have symptoms similar to those of stomach flu. If your symptoms are unusually severe or last longer than a few days, your health care provider can determine if the diarrhea is caused by a virus or by something else. What are the symptoms? When you have stomach flu, you may have one or more of the following symptoms: nausea vomiting stomach cramps diarrhea mild fever fatigue chills loss of appetite muscle aches. The illness may develop over a period of hours, or it may suddenly start with stomach cramps, vomiting, or diarrhea. How is it diagnosed? Your health care provider will review your symptoms. He or she may examine you and order lab tests to rule out more serious illnesses, such as appendicitis, and to detect complications, such as dehydration. How is it treated? The most important thing to do is to rest the stomach and intestines. You can do this by first eating nothing solid and drinking only clear liquids. A little later you can eat soft bland foods that are easy to digest. If you have been vomiting a lot, it is best to have only small, frequent sips of liquids. Drinking too much at once, even an ounce or two, may cause more vomiting. Start with small sips (1 tbsp) of clear liquids every 10-15 min, including water, ice, popsicles, jello, etc. This will keep you from becoming dehydrated. Once tolerating sips for 3-4 hours without vomiting, may increase to larger amounts of clear liquids. Your choice of liquids is important. If water is the only liquid you can drink without vomiting, that is okay. However, if you have been vomiting often for a long time, you must replace the minerals,sodium and potassium, that are lost when you vomit. Sports drinks are generally good sources for fluid and electrolyte replacement for adults. Pedialye, ricelyte, or World Health Organization Replacement Fluids are better for smaller children or babies. Other clear liquids you can drink are weak tea and apple juice. You may also drink soft drinks without caffeine (such as 7-UP) after letting them go flat (lose their carbonation). Chilling the liquids may help you keep them down. Avoid liquids that are acidic (such as orange juice) or caffeinated (such as coffee) or have a lot of carbonation. Do not drink milk until you have gone a few days without diarrhea. You may start eating soft bland foods when you have not vomited for several hours and are able to drink clear liquids without further upset. Soda crackers, toast, plain noodles, gelatin, eggs, applesauce, and bananas are good first choices. Avoid foods that are acidic, spicy, fatty, or fibrous (such as meats, coarse grains, vegetables). Also avoid dairy products. You may start eating these foods again in 3 days or so, when all signs of illness have passed. Sometimes treatment includes prescription medicine to prevent nausea and vomiting or diarrhea. Nonprescription medicine, such as Immodium AD, is available for the treatment of diarrhea and can be very effective. If you use it, make sure you use only the dose recommended on the package. If you have c hronic health problems, always check with your health care provider before you use any medicine fordiarrhea. If your vomiting or diarrhea persists for more than three days without improvement, please call theoffice. It is not uncommon for symptoms to improve for a few days and then reoccur for another day or two within a two to three week period. If symptoms persist longer, or is excessive, you may need to have an exam to rule out more serious problems and to check for dehydration. You may also need tohave lab tests to determine whether bacteria or germs such as giardia are causing your illness. Dehydration is a potentially serious complication of stomach flu. It can occur if your body loses too much fluid because you keep vomiting or having diarrhea. If you are severely dehydrated, you may need to be given fluids intravenously (IV). In children and older adults, dehydration can quickly become life threatening. Signs of dehydration include dry mouth, sunken eyes, dizziness onstanding or moving, diminished urine or tears, and extreme weakness or lethargy. If you or your child have thesesymtpoms, please go to the emergency room for immediate attention and intravenous hydratiom. How long do the effects last? Stomach flu rarely lasts longer than 1 to 3 days. However, it may be 1 to 2 weeks before your bowelhabits return completely to normal. Again, it is not uncommon to be better for a few days or evena week, and then have another day or two of symptoms. How can I take care of myself? Rest your stomach and intestines by following the guidelines above, but make sure you prevent dehydration by drinking enough liquids. Drink just small amounts often during the vomiting phase of your illness. Do not take aspirin, ibuprofen, or other NSAIDS without checking first with your health care provider. Call the office if: Your symptoms are getting worse. You continue to have severe symptoms for more than 2 or 3 days, or you are just not getting better after a few days. You develop symptoms that are not usually caused by stomach flu, such as blood in your vomit, bloody diarrhea, or severe abdominal pain. What can I do to help prevent stomach flu? The single, most helpful way to prevent the spread of stomach flu is frequent, thorough hand washing. Also, avoid contact with the body fluids of an infected person, including saliva. Don't share food with someone who has stomach flu. Published by [employer]. This content is reviewed periodically and is subject to change as new health information becomes available. The information is intended to inform and educate and is not a replacement for medical evaluation, advice, diagnosis or treatment by a healthcare professional. Developed by [employer]. Copyright 2005 [employer] and/or one of its subsidiaries. All Rights Reserved. documented in this encounterThe [facility]10-[facility] History of Present illness Narrative* Lizeth Saini PA-C - 05/28/2023 10:20 AM EDT 82 year old male with c/o diarrhea over about 3 weeks, BP issues. States initially yellow then turned green. This morning more solid, brown. Appetite normal No nausea or vomiting, fever, cramps but no persistent abdominal pain Nose running last 1-2 days, better today. No cough. Feeling lightheaded a little and SOB with activity. Urinating 6 times over night and every 2 hours a day: large volumes equivalent to intake. Seems to have relieved cramps. Drinking a lot of water as directed, has a beer after cutting grass. Muscle cramps resolved. Appetite has been good, eating normally. Was eating a lot of pie prior to diarrhea starting. Right hip is much improved following injection. Occasionally has pain in epigastric area to left abdomen, doesn't last, not asscoiated with exertion. Cuts grass 4h x 2days push mowing. No chest, arm, shoulder, upper back pain. HISTORIES FAMILY HISTORY Problem Relation Age of Onset Heart Mother Hypertension Mother Heart Father Heart Sister Heart Brother Stroke Sister Colon Cancer No Family History 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 PAST SURGICAL HISTORY Procedure Laterality Date ARTHROSCOPY KNEE DIAGNOSTIC W/WO SYNOVIAL BX SPX 2000 both COLONOSCOPY FLX DX W/COLLJ SPEC WHEN PFRMD 2001 Colonoscopy COLONOSCOPY FLX DX W/COLLJ SPEC WHEN PFRMD 07/13/2014 Colonoscopy COLONOSCOPY GEN ANES 11/26/2020 CORONARY ARTERY BYP W/VEIN & ARTERY GRAFT 3 VEIN 1981 CABG, three grafts EGD 11/26/2020 EGD 02/14/2021 EYE SURGERY HX FOOT SURGERY HX Left HEART SURGERY HX NEUROPLASTY &/TRANSPOS MEDIAN NRV CARPAL TUNNE 1998 Carpal tunnel decomp bilateral PAST SURGICAL HISTORY OF surgery on umbilicus due to bleeding PAST SURGICAL HISTORY OF 2 umbical mass resection SIGMOIDOSCOPY FLX DX W/COLLJ SPEC BR/WA IF PFRMD 08/29/2004 Sigmoidoscopy TONSILLECTOMY HX Social History Tobacco Use Smoking status: Former Years: 29 Types: Cigarettes Start date: 08/24/1955 Quit date: 08/24/1984 Years since quittin.7 Smokeless tobacco: Never Tobacco comments: QUIT at age 44, started at 15 Vaping Use Vaping Use: Never used Substance Use Topics Alcohol use: Yes Alcohol/week: 17.5 - 35.0 standard drinks of alcohol Types: 7 - 14 Cans of Beer (12oz) per week Comment: 2 beers a day Drug use: No ACTIVE PROBLEM LIST Spinal Stenosis, Lumbar Region, Without Neurogenic Claudication Thoracic Or Lumbosacral Neuritis Or Radiculitis, Unspecified Lumbosacral Spondylosis Without Myelopathy Essential Hypertension, Benign Mixed Hyperlipidemia Coronary Atherosclerosis Insomnia, Unspecified Esophageal Reflux Impaired Fasting Glucose Allergic Rhinitis, Cause Unspecified Elevated Serum Creatinine Serum Calcium Elevated Atherosclerosis of [place] 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 90 tablet3 gabapentin (NEURONTIN) 400 mg capsule Take 1 capsule by mouth twice daily for 180 days. [address] (PROTONIX) 20 mg tablet Take 2 tablets by mouth once daily. 180 tablet 1 cyclobenzaprine (FLEXERIL) 5 mg tablet Take 1 tablet by mouth at bedtime as needed for muscle spasm. 90 tablet 3 simvastatin (ZOCOR) 40 mg tablet Take 1 tablet by mouth daily at bedtime. 90 tablet 3 traZODone (DESYREL) 50 mg tablet Take 1 tablet by mouth daily at bedtime. 90 tablet 3 clopidogrel (PLAVIX) 75 mg tablet Take 1 tablet by mouth once daily. 90 tablet 3 ezetimibe (ZETIA) 10 mg tablet Take 1 tablet by mouth once daily. 90 tablet 3 isosorbide mononitrate ER (IMDUR) 30 mg 24 hr tablet Take 0.5 tablets by mouth once daily. 45 tablet 3 nitroglycerin sublingual (NITROQUICK) 0.4 mg SL tablet Dissolve 1 tablet under the tongue as directed. DISSOLVE ONE(1) TABLET UNDER THE TOUNGUE NEEDED FOR CHEST PAIN,EVERY 5 MIN X3 1 Bottle of 25 1 acetaminophen 650 mg CR tablet Take 1,300 mg by mouth twice daily. No current facility-administered medications for this visit. Covid-19 Vaccine(5 - Pfizer series) due on 09/24/2022 Influenza Vaccine(1) due on 04/24/2023 EXAM: BP 128/84 Pulse 87 Resp 16 Wt 73 kg (161 lb) SpO2 98% BMI 25.22 kg/m Pleasant well appearing adult man talking energetically through entire visit, in no acute distress.Alert and oriented all spheres. Normal affect and cognition. Speech normal. No deficits to learningor comprehension. Skin warm, dry, pink to lips and nailbeds. Normal turgor. Respirations regular and unlabored. HEENT: NCAT. No scleral icterus or conjunctival injection. TM's clear. Nose and oropharynx free from injection or lesion. Oral membranes moist and pink. No cervical lymph nodes. Thyroid non-tender, no masses, or enlargement. Carotids pulses 2+/4+ without bruits. No JVD with HOB at 30 degrees. Chest is normal shape. Lungs are clear to all [place] with good air exchange through out. HRRR without murmur or gallop. No lifts, heaves, or rubs. Abdomen: active bowel sounds throughout, soft, nontender, no masses or organomegaly. No CVAT. Extrem: no clubbing or cyanosis. Edema: none. Extremities are warm and pink with prompt capillary refill. ASSESSMENT/PLAN: 1. Diarrhea, unspecified type - ICD9: 787.91, ICD10: R19.7 Hx of GIB last year with diarrhea. Recent formed stool, suspect virus but to monitor and notify if sx recur, Continue soft, bland diet and avoid mild products until certain resolved. Lizeth Saini PA-C documented in this encounterThe [facility]09-15-[facility]23 History of Present illness Narrative* Beryl Kuhn RN - 05/08/2023 10:29 AM EDT CDM Telephonic Outreach Provider Action/FYI Contacted for: Routine Telephonic Outreach Contact made with patient: Yes Patient identified by name and date of . Discussed care with patient Are you experiencing any new or worsening symptoms you need to talk about today? No Disease Specific Do you check your blood pressure at home? Yes, Enter readings: no reading Do you have new or worsening shortness of breath with activity? No Do you feel like you are dehydrated for any reason, including not being able to eat or drink normally, or having less urine/much darker urine than normal for you? No Do you check your daily weight at home? Yes, Have you noticed a sudden gain in weight greater than three pounds in a day or three pounds in a week? No Based on assessment coordinator, the following disposition is advised: No symptoms or symptoms present, not severe. Routed to: No Action Needed EDWARDO Education Provided this Outreach: No Beryl Kuhn RN May 08, 2023 10:41 AM Care Coordination next call- CKD HTN Last CDM outreach contact: 05/08 - No cdm concerns. Waiting for Appt for hip injection. Hip hurtling with walking Wt 163 lbs Wants to lose wt. goal 158 lbs Baseline: 03/09/23 ADL, FALL, GOAL due: 05/08/24. Chronic disease goal - 03/09/23 -CKD -reviewed CDK zones. Need - HTN. SDOH transportation and food insecurity completed: 01/07/23 documented in this encounterThe [facility]2023 History of Present illness Narrative* Belle Smalls RT(R) - 05/07/2023 8:20 AM EDT Radiology Service Progress Note PATIENT NAME: Angie Dutton DATE OF SERVICE: May 07, 2023 TIME: 8:48 AM PATIENT IDENTITY VERIFICATION COMPLETED USING TWO (2) IDENTIFIERS: Name and Date of confirmedby patient verbally. FALL SCREENING: Has the patient had 2 falls in the last year or 1 fall with injury or currently using an Ambulatory Assistive Device (Walker, Cane, Wheelchair, Crutches, etc.)? No PATIENT GENDER DATA: Male PATIENT RELEVANT IMPLANT DATA REVIEWED: Not Applicable RADIOLOGY DEPARTMENT: General X-ray: Exam(s) Completed: Pelvis X-Ray: Pelvis with Hip Right PERIPHERAL IV DATA: Not applicable SIGNED BY: RT Nathalie(R) May 07, 2023 8:48 AM documented in this encounterThe [facility]08-18-2023 History of Present illness Narrative* Beryl Kuhn RN - 04/10/2023 10:21 AM EDT [facility] Telephonic Outreach Provider Action/FYI Contacted for: Routine Telephonic Outreach Contact made with patient: Yes Patient identified by name and date of . Discussed care with patient Are you experiencing any new or worsening symptoms you need to talk about today? No Disease Specific Do you check your blood pressure at home? Yes, Enter readings: 131/70 Do you have new or worsening shortness of breath with activity? No Do you feel like you are dehydrated for any reason, including not being able to eat or drink normally, or having less urine/much darker urine than normal for you? No Do you check your daily weight at home? Yes, Have you noticed a sudden gain in weight greater than three pounds in a day or three pounds in a week? No Based on assessment coordinator, the following disposition is advised: No symptoms or symptoms present, not severe. Routed to: No Action Needed EDWARDO Education Provided this Outreach: No Beryl Kuhn RN April 10, 2023 10:27 AM Care Coordination next call- CKD HTN Last CDM outreach contact: 03/09 - No cdm concerns. Hip hurting again. Has appt for injection 05/07 Wt 162 lbs Wants to lose wt. goal 158 lbs Baseline: 03/09/23 ADL, FALL, GOAL due: 03/24/23 . Chronic disease goal - 03/09/23 -CKD -reviewed CDK zones. Need - HTN. SDOH transportation and food insecurity completed: 01/07/23 documented in this encounterThe [facility]08-17-2023 Miscellaneous Notes* Telephone Encounter - Farida Katz - 04/09/2023 3:40 PM EDT Spoke with patient who has been scheduled with Dr. Ramos on 05.07.23 * Telephone Encounter - Tenisha Singletary Ma - 04/09/2023 9:12 AM EDT Please call patient to schedule follow up with Dr. Ramos for hip pain. Patient was seen by him in August Tenisha Singletary Ma * Telephone Encounter - Breanna Mckinley - 04/09/2023 8:42 AM EDT Patient called to request order for another injection in the right hip that was performed previously on 11/26/22. Please notify the patient when order is available in the patient's chart so he can schedule. documented in this encounterThe [facility]07-17-2023 Miscellaneous Notes* Telephone Encounter - Sonia Montana MA - 03/09/2023 2:44 PM EDT PAMELA 12/29/22 NOV 03/31/23 Sonia Montana MA * Telephone Encounter - Harleen Hu - 03/09/2023 2:35 PM EDT Pts called about prescription below. As we were talking he received medication from the pharmacy. Does not need this one filled urgently. * Telephone Encounter - Beryl Kuhn RN - 03/09/2023 2:12 PM EDT Patient phones requesting refills as follows: Pt currently has 1 pill left. He would also like a 30 day emergency supply ot Metoprolol sent to [facility] Requested Prescriptions Pending Prescriptions Disp Refills metoprolol succinate ER (TOPROL XL) 25 mg 24 hr tablet 90 tablet 3 Sig: Take 1 tablet by mouth once daily. Please review and advise. Beryl Kuhn RN documented in this encounterThe [facility]07-12-2023 Miscellaneous Notes* Telephone Encounter - Liza Lipscomb - 03/04/2023 11:46 AM EDT Patient has been identified by name and date of : Yes Requested Prescriptions Pending Prescriptions Disp Refills gabapentin (NEURONTIN) 400 mg capsule 180 capsule 1 Sig: Take 1 capsule by mouth twice daily for 180 days. RX INSTRUCTIONS: Patient aware RX escripted to mail away pharmacy. No need to notify patient. Liza Druan documented in this encounterThe [facility]07-11-2023 History of Present illness Narrative* AnushaJeanie, DO - 03/03/2023 1:32 PM EDT Images from the original note were not included. [facility] [place] Navya Ivey Department of Cardiovascular Medicine SECTION OF REGIONAL CARDIOLOGY FOLLOW UP March 03, 2022 Pamela: 02/12/22 HPI: Angie Dutton is (an) 81 year old male with history of CAD s/p CABG x 3, 1985, PCI x 2 - 2007, hyperlipidemia, hypertension, CKD, PSVT, PVD and hiatal hernia who is here today for follow-up. I care for his as well. He has been doing quite well with a very active high-quality life. He has some leg cramping but does not drink much fluids. He reports that he has had stable exercise tolerance. He is going to [place] regularly. He denies chest pain. He's used no nitroglycerin. He has had no orthopnea, edema, syncope, palpitations, TIAs, amaurosis, claudication. The patient is involved in sporadic irregular exercise Patient denies SOB, chest pain, dizziness, lightheadedness, palpitations, lower extremity edema, PND, orthopnea, presyncope, syncope or claudication symptoms. Prior Hx: 08/06/21 [facility] admit:06/25/2021 Prehospital work-up: Presented to [facility] emergency department 06/25/2021 with complaints of inability to walk or stand up straight. 06/25/2021 CT head without IV contrast: Nonspecific white matter changes, ventricles appropriate for age, no masses. 06/25/21 CT angiography head and neck with IV contrast: No major vessel stenosis or occlusion other than the right internal carotid artery 40% stenosis, right external carotid artery moderate stenosisno occlusion, left internal carotid artery 55% stenosis, left external carotid artery moderate stenosis. Other findings: Right maxillary sinus mucosal retention cyst, degenerative changes in cervicalspine at multiple levels causing foraminal stenosis. 06/26/21 MRI: no evidence of acute ischemia. Chronic microvascular changes 06/26/21 echo: LV size and LV SF WNL. Apical false tendon noted. EF 65%. Moderate stage II diastolicdysfunction. No regional wall abnormalities noted. RV size and RV SF WNL. LA moderately enlarged, RA WNL, no right to left shunt noted. MV mild annular calcification, extension onto posterior leaflet, 1+ MRI. 0-1 TBI, right ventricular systolic pressure 36 mmHg. AV mild focal calcification, trivialAVI. PV not visualized well, trivial PVR. Aortic root not well visualized. No pericardial effusion. labs: 11-21 WBC 3.7L-Hgb 13.7-HCT 42.3, PLT 74L otherwise normal differential. NA 148-K4.1-CL 109-CO2 20.0-AG 3-BUN 13-CRE 1.29 EGFR 57L-GLU 90-CA 9.1-troponin high-sensitivity #1 36, #2 46-MG 1.9 They did not feel he had a stroke but was dehydrated.. Myocardial perfusion imaging stress test in September 2019 was normal with his prior study in September 2017 suggesting a very small area of ischemia possibly in the RCA and circumflex distribution. 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 PAST SURGICAL HISTORY Procedure Laterality Date ARTHROSCOPY KNEE DIAGNOSTIC W/WO SYNOVIAL BX SPX 2000 both COLONOSCOPY FLX DX W/COLLJ SPEC WHEN PFRMD 2001 Colonoscopy COLONOSCOPY FLX DX W/COLLJ SPEC WHEN PFRMD 07/13/2014 Colonoscopy COLONOSCOPY GEN ANES 11/26/2020 CORONARY ARTERY BYP W/VEIN & ARTERY GRAFT 3 VEIN 1981 CABG, three grafts EGD 11/26/2020 EGD 02/14/2021 EYE SURGERY HX FOOT SURGERY HX Left HEART SURGERY HX NEUROPLASTY &/TRANSPOS MEDIAN NRV CARPAL TUNNE 1998 Carpal tunnel decomp bilateral PAST SURGICAL HISTORY OF surgery on umbilicus due to bleeding PAST SURGICAL HISTORY OF 1961 umbical mass resection SIGMOIDOSCOPY FLX DX W/COLLJ SPEC BR/WA IF PFRMD 08/29/2004 Sigmoidoscopy TONSILLECTOMY HX FAMILY HISTORY Problem Relation Age of Onset Heart Mother Hypertension Mother Heart Father Heart Sister Heart Brother Stroke Sister Colon Cancer No Family History SOCIAL HISTORY Social History Tobacco Use Smoking status: Former Years: 29.00 Types: Cigarettes Start date: 08/24/1955 Quit date: 08/24/1984 Years since quittin.5 Smokeless tobacco: Never Tobacco comments: QUIT at age 44, started at 15 Vaping Use Vaping Use: Never used Substance Use Topics Alcohol use: Yes Alcohol/week: 17.5 - 35.0 standard drinks of alcohol Types: 7 - 14 Cans of Beer (12oz) per week Comment: 2 beers a day Drug use: No ALLERGIES: Sulfa (Sulfonamide Antibiotics) CURRENT MEDICATIONS: Current Outpatient Medications Medication Sig pantoprazole DR (PROTONIX) 20 mg tablet Take 2 tablets by mouth once daily. cyclobenzaprine (FLEXERIL) 5 mg tablet Take 1 tablet by mouth at bedtime as needed for muscle spasm. simvastatin (ZOCOR) 40 mg tablet Take 1 tablet by mouth daily at bedtime. traZODone (DESYREL) 50 mg tablet Take 1 tablet by mouth daily at bedtime. gabapentin (NEURONTIN) 400 mg capsule Take 1 capsule by mouth twice daily for 180 days. metoprolol succinate ER (TOPROL XL) 25 mg 24 hr tablet Take 1 tablet by mouth once daily. clopidogrel (PLAVIX) 75 mg tablet Take 1 tablet by mouth once daily. ezetimibe (ZETIA) 10 mg tablet Take 1 tablet by mouth once daily. isosorbide mononitrate ER (IMDUR) 30 mg 24 hr tablet Take 0.5 tablets by mouth once daily. nitroglycerin sublingual (NITROQUICK) 0.4 mg SL tablet Dissolve 1 tablet under the tongue as directed. DISSOLVE ONE(1) TABLET UNDER THE TOUNGUE NEEDED FOR CHEST PAIN,EVERY 5 MIN X3 acetaminophen 650 mg CR tablet Take 1,300 mg by mouth twice daily. No current facility-administered medications for this visit. ROS: Card: See present history. Pulm: Negative for cough, hemoptysis, wheezing, COPD, dyspnea or shortness of breath Gastro: No nausea, vomiting, or diarrhea GenUr: No history of dysuria, frequency or incontinence Endo: Negative for cold or heat intolerance, polyuria or polydipsia. Neuro: no focal weakness, focal sensory loss, headache, visual changes, seizure activity, ataxia, speech/language loss. Musculoskeletal: Negative for joint or muscle pain, back pain, or swelling. Infect: no fevers, chills, rigors or night sweats. Skin: Negative for lesions, rash, and itching. Heme: Negative for prolonged bleeding, bruising easily or swollen nodes. The remainder of the review of systems is negative. PHYSICAL EXAMINATION: GENERAL: alert cooperative, pleasant oriented x 3 (self, time and place) in no acute distress BP 148/80 Pulse 78 Ht 170.2 cm (5' 7) Wt 74.7 kg (164 lb 11.2 oz) SpO2 98% BMI 25.80 kg/m Last 3 Encounter BP Readings: Date: BP: 01/30/2020 132/70 11/01/2019 128/86 10/25/2019 142/70 Last 3 Encounter Pulse Readings: Date: Pulse: 01/30/2020 62 11/01/2019 59 10/25/2019 60 Last 3 Encounter Wt Readings: Date: Wt: 02/16/2020 70.3 kg (155 lb) 01/30/2020 71.7 kg (158 lb) 10/25/2019 74.4 kg (164 lb) SKIN: warm, dry, no rash. NECK: supple, no palpable masses, no JVD, carotids well felt, no bruits. CARDIAC: [place] palpable in the 5th intercostal space mid clavicular line, normal S1 and S2, no murmurs, gallops, or rubs. CHEST: Normal respiratory efforts, lungs clear to auscultation bilaterally. ABDOMEN: Soft, no tenderness, rigidity, or masses. No palpable liver or spleen. Normal bowel sounds, no bruits. NEURO: intact cranial nerves II through XII, no motor or sensory deficits in all 4 extremities. EXTREMITIES: No cyanosis, clubbing, or edema. Peripheral pulses well felt. CARDIAC (& OTHER IMPORTANT) TESTING: MPI 10/17/19: CONCLUSIONS: 1. SPECT Perfusion Study: Normal. 2. There is no scintigraphic evidence for inducible ischemia. 3. No evidence of scarred myocardium. 4. Functional capacity N/A (pharmacological). 5. Left ventricle is normal in size. The left ventricle systolic function is normal. 6. Right ventricle is normal in size. 7. This is a low risk scan. 1 LVEF % 68 LABS: Cholesterol, Total (mg/dL) Date Value 10/01/2022 141 08/08/2021 195 HDL Cholesterol (mg/dL) Date Value 10/01/2022 56 08/08/2021 60 LDL Cholesterol (mg/dL) Date Value 10/01/2022 60 08/08/2021 110 Triglyceride (mg/dL) Date Value 10/01/2022 123 08/08/2021 125 ASSESSMENT/PLAN: Coronary artery disease involving [place] coronary artery of [place] heart without angina pectoris s/p CABGx3 1985, PCI stent - 2007 Continue secondary prevention Essential hypertension, benign - optimal control today - Encouraged dietary sodium restriction/DASH diet - Recommended regular aerobic exercise. - Reviewed risks of HTN and principles of treatment - Goal of BP <130/80 Mixed hyperlipidemia - optimal control with LDL 58, 02/03/22 and goal at < 70 - Continue current medication (simvastatin 40 mg, ezetimibe 10 mg) TIA (transient ischemic attack) I recommend continuing his current medications as he is doing very well and his BP is usually at goal. He should continue aggressive secondary prevention and will follow-up with him periodically. He is mowing his lawn and doing well. He has a LDL that is now in good range (<70) since we increased the simvastatin to 40 mg every day and added ezetmibe. He should increase his fluids. We will follow him periodically to help with secondary prevention. Thank you for allowing me the privilege of participating in the care of your patient. Please do nothesitate to contact me if there are any questions. Jeanie Tavares DO, FACC, FCCP, FACOI CC: Lizeth Saini PA-C [address] [place] [address] documented in this encounterThe [facility]07-03-2023 Miscellaneous Notes* Telephone Encounter - GOLDY Tapia - 02/23/2023 10:01 AM EDT PAMELA 12/29/22 NOV 03/31/23 Please review and advise. Thank you. GOLDY Tapia * Telephone Encounter - Zuri Wolfe - 02/23/2023 8:19 AM EDT Patient has been identified by name and date of : Yes Last office visit in this department: 12/29/2022 RX INSTRUCTIONS: Patient aware RX will be sent to pharmacy. No need to notify patient. Patient phones requesting refills as follows: Requested Prescriptions Pending Prescriptions Disp Refills pantoprazole DR (PROTONIX) 20 mg tablet 180 tablet 1 Sig: Take 2 tablets by mouth once daily. Please review and advise. Zuri Aiden documented in this encounterThe [facility]06-14-2023 History of Present illness Narrative* Yeimi Perry RN - 02/04/2023 3:15 PM EDT CDM Telephonic Outreach Provider Action/ALVAREZ Pt is very concerned about being told his sugars are elevated. His recent BS was 104 Reassured and instructed to avoid sweets, etc. Contacted for: Routine Telephonic Outreach Contact made with patient: Yes Patient identified by name and date of . Discussed care with patient Are you experiencing any new or worsening symptoms you need to talk about today? No Disease Specific Do you check your blood pressure at home? Yes, Enter readings: been real good 122/72 Do you have new or worsening shortness of breath with activity? No Do you feel like you are dehydrated for any reason, including not being able to eat or drink normally, or having less urine/much darker urine than normal for you? No Do you check your daily weight at home? Yes, Have you noticed a sudden gain in weight greater than three pounds in a day or three pounds in a week? No Based on assessment coordinator, the following disposition is advised: No symptoms or symptoms present, not severe. Routed to: No Action Needed EDWARDO Education Provided this Outreach: No Yeimi Dunbar RN February 04, 2023 3:25 PM documented in this encounterThe [facility]05-16-2023 Miscellaneous Notes* Telephone Encounter - Lizeth Saini PA-C - 01/06/2023 6:54 AM EDT The following approved medication requests have been transmitted electronically. Requested Prescriptions Signed Prescriptions Disp Refills cyclobenzaprine (FLEXERIL) 5 mg tablet 90 tablet 3 Sig: Take 1 tablet by mouth at bedtime as needed for muscle spasm. Authorizing Provider: Lizeth SAINI PA-C * Telephone Encounter - Sun Sandoval [facility] - 01/05/2023 1:27 PM EDT Angie Dutton has his [place] calling Lizeth Saini PA-C today to request a RX that does not appear on current medication list: Cyclobenzaprine 5 mg tablet take one tablet at bedtime Please send RX to [facility] for a 90 day supply with refills. Patient has been identified by name and birthdate. Duration of symptoms: N/A Person calling: spouse: Elua Call patient at: at home [phone] (home) [phone] (cell) Was an appointment scheduled: No Closing statement: Results or non-symptom based questions: Thank you for calling [facility], your call will be returned within the next business day. [facility] documented in this encounterThe [facility]05-15-2023 Miscellaneous Notes* Telephone Encounter - Sun Sandoval [facility] - 01/05/2023 1:24 PM EDT Patient has been identified by name and date of : Yes Requested Prescriptions Pending Prescriptions Disp Refills simvastatin (ZOCOR) 40 mg tablet 90 tablet 3 Sig: Take 1 tablet by mouth daily at bedtime. RX INSTRUCTIONS: Patient aware RX will be sent to pharmacy. No need to notify patient. Sun Sandoval [employer] Electronically signed by Sun Sandoval [facility] at 01/05/2023 1:27 PM EDT documented in this encounterThe [facility]05-08-2023 History of Present illness Narrative* Lizeth Saini PA-C - 12/29/2022 2:00 PM EDT 82 year old male with c/o here for follow up is concerned about him seeming off balance No falls Has no pain in hip following injection Had right knee pain one day which went away over night. States a lot of leg cramps. Can walk without complication, mows 1/2 acre walking mower. Notes feeling tired, sleepy more than usual. Takes afternoon nap. Again making statements he's not sure how he's going to last much longer. 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 Tavares 06/26/2021 echocardiogram [facility] Dr. Murray: LV size and LV SF WNL, EF 65%, apical false tendon noted. Stage II diastolic dysfunction. No regional wall motion abnormalities. RV size and RV SF WNL. LA moderate enlarged. RA WNL. Mild mitral annular calcification with extension to base of mitral valve leaflet. Trivial TVI, mild focal aortic valve calcification. Trivial SHAYLEE. Trivial PVI. RVSP 36 mmHg.Bubble study showed no [id number]-jrsoy shunt intra-atrial. 10/17/2019 cardiac perfusion exercise stress: WNL, no inducible ischemia, no evidence of scarred myocardium, LV size and LV SF WNL, EF 68%. RV size WNL 09/29/[address] Dominguez: mild ischemia in region of CX (3%) and RCA (5%). Normal LV and RVsize and function. LVEF stressed 62%, resting 57% [facility] Dr. Tavares Current meds: NTG 0.4 mg SL as needed chest pain Clopidogrel 75 mg daily Simvastatin 40 mg daily at bedtime Ezetimbe 10mg daily Metoprolol succinate ER 25 mg daily Checks BP daily in the AM: usually 120-140s/60-70s Use of NTG: No Chest pain, arm, jaw pain, neck, or upper back pain suggestive of angina: Identifies has brief pressure across upper chest, which lasts at most a minute, not painful, no SOB, dyspnea, palpitations. SOB: No Dyspnea with exertion: No orthopnea: No Cough : No racing or irregular heartbeats: No palpitations: No syncopal sx: No Headache: No Unexplainable fatigue: No Leg swelling: No Nausea: No diaphoresis: No Heartburn: No Claudication: no, but pain in right thigh which affects gait. Out putting up decorations and lights, says he has been very active, exercising with walking. Smoking: No Following Low cholesterol, high fiber diet? Not specifically If on statin: muscle aches? No If on statin: GI sx or diarrhea? No Additional history: none.Lab review: Component Latest Ref Rng & Units 07/24/2022 08/04/2022 10/01/2022 WBC 3.70 - 11.00 k/uL 7.61 RBC 4.20 - 6.00 m/uL 5.02 Hemoglobin 13.0 - 17.0 g/dL 14.4 Hematocrit 39.0 - 51.0 % 44.5 MCV 80.0 - 100.0 fL 88.6 MCH 26.0 - 34.0 pg 28.7 MCHC 30.5 - 36.0 g/dL 32.4 RDW-CV 11.5 - 15.0 % 14.0 Platelet Count 150 - 400 k/uL 81 (L) MPV 9.0 - 12.7 fL 13.8 (H) Neut% % 67.0 Abs Neut (ANC) 1.45 - 7.50 k/uL 5.10 Lymph% % 26.1 Abs Lymph 1.00 - 4.00 k/uL 1.99 [place]% % 4.9 Abs [place] <0.87 k/uL 0.37 Eosin% % 1.2 Abs Eosin <0.46 k/uL 0.09 Baso% % 0.4 Abs Baso <0.11 k/uL 0.03 Immature Gran % % 0.4 IMMATURE GRANS (ABS) <0.10 k/uL 0.03 NRBC /100 WBC 0.0 Absolute nRBC <0.01 k/uL <0.01 DTYPE Auto Protein, Total 6.3 - 8.0 g/dL 6.7 Albumin 3.9 - 4.9 g/dL 4.3 Calcium 8.5 - 10.2 mg/dL 9.5 Bilirubin, Total 0.2 - 1.3 mg/dL 0.6 Alkaline Phosphatase 38 - 113 U/L 66 AST 14 - 40 U/L 19 ALT 10 - 54 U/L 12 Glucose 74 - 99 mg/dL 98 BUN 9 - 24 mg/dL 14 Creatinine 0.73 - 1.22 mg/dL 1.38 (H) Sodium 136 - 144 mmol/L 143 Potassium 3.7 - 5.1 mmol/L 4.5 Chloride 97 - 105 mmol/L 106 (H) CO2 22 - 30 mmol/L 26 Anion Gap 9 - 18 mmol/L 11 eGFR >=60 mL/min/1.73m 51 (L) Cholesterol, Total <200 mg/dL 147 141 Triglyceride <150 mg/dL 110 123 HDL Cholesterol >39 mg/dL 57 56 Non HDL Cholesterol <130 mg/dL 90 85 Fasting Time hrs 12 14 VLDL Cholesterol <30 mg/dL 22 25 TC:HDL Ratio <5.10 2.58 2.52 LDL Cholesterol <100 mg/dL 68 60 LDL:HDL Ratio <2.54 1.19 1.07 Impaired fasting glucose Hemoglobin A1C (%) Date Value 07/24/2022 5.6 02/03/2022 5.8 04/16/2021 5.7 01/30/2020 5.7 ) Stage 3a chronic kidney disease (hcc) As above Iron deficiency anemia, unspecified iron deficiency anemia type No new data As above Gastroesophageal reflux disease, unspecified whether esophagitis present Current medication: Pantoprazole 20mg daily AC 2 tabs once a day. Current symptoms: no symptoms. Last Mg level if on PPI chronically: none recent. Heartburn is controlled: No. Dysphagia: No. Bloody or black stools: No. Bowel changes: No. Spinal stenosis, lumbar region, without neurogenic claudication Walks 4 miles a day without issues Groin pain much improved following anterior HISTORIES FAMILY HISTORY Problem Relation Age of Onset Heart Mother Hypertension Mother Heart Father Heart Sister Heart Brother Stroke Sister Colon Cancer No Family History 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 PAST SURGICAL HISTORY Procedure Laterality Date ARTHROSCOPY KNEE DIAGNOSTIC W/WO SYNOVIAL BX SPX 2000 both COLONOSCOPY FLX DX W/COLLJ SPEC WHEN PFRMD 2001 Colonoscopy COLONOSCOPY FLX DX W/COLLJ SPEC WHEN PFRMD 07/13/2014 Colonoscopy COLONOSCOPY GEN ANES 11/26/2020 CORONARY ARTERY BYP W/VEIN & ARTERY GRAFT 3 VEIN 1981 CABG, three grafts EGD 11/26/2020 EGD 02/14/2021 EYE SURGERY HX FOOT SURGERY HX Left HEART SURGERY HX NEUROPLASTY &/TRANSPOS MEDIAN NRV CARPAL TUNNE 1998 Carpal tunnel decomp bilateral PAST SURGICAL HISTORY OF surgery on umbilicus due to bleeding PAST SURGICAL HISTORY OF 2 umbical mass resection SIGMOIDOSCOPY FLX DX W/COLLJ SPEC BR/WA IF PFRMD 08/29/2004 Sigmoidoscopy TONSILLECTOMY HX Social History Tobacco Use Smoking status: Former Years: 29.00 Types: Cigarettes Start date: 08/24/1955 Quit date: 08/24/1984 Years since quittin.3 Smokeless tobacco: Never Tobacco comments: QUIT at age 44, started at 15 Vaping Use Vaping Use: Never used Substance Use Topics Alcohol use: Yes Alcohol/week: 17.5 - 35.0 standard drinks Types: 7 - 14 Cans of Beer (12oz) per week Comment: 2 beers a day Drug use: No ACTIVE PROBLEM LIST Spinal Stenosis, Lumbar Region, Without Neurogenic Claudication Thoracic Or Lumbosacral Neuritis Or Radiculitis, Unspecified Lumbosacral Spondylosis Without Myelopathy Essential Hypertension, Benign Mixed Hyperlipidemia Coronary Atherosclerosis Insomnia, Unspecified Esophageal Reflux Impaired Fasting Glucose Allergic Rhinitis, Cause Unspecified Elevated Serum Creatinine Serum Calcium Elevated Atherosclerosis of [place] Coronary Artery of [place] Heart With Stable Angina Pectoris (Hcc) Tia (Transient Ischemic Attack) Chronic Right Hip Pain Pain of Right Calf Stage 3a Chronic Kidney Disease (Hcc) Iron Deficiency Anemia Chronic Itp (Idiopathic Thrombocytopenia) (Hcc) Right Groin Pain Hypertensive Kidney Disease With Stage 3a Chronic Kidney Disease (Hcc) Bilateral Carotid Artery Stenosis Current Outpatient Medications Medication Sig Dispense Refill traZODone (DESYREL) 50 mg tablet Take 1 tablet by mouth daily at bedtime. 90 tablet 3 gabapentin (NEURONTIN) 400 mg capsule Take 1 capsule by mouth twice daily for 180 days. [address] (PROTONIX) 20 mg tablet Take 2 tablets by mouth once daily. 180 tablet 1 metoprolol succinate ER (TOPROL XL) 25 mg 24 hr tablet Take 1 tablet by mouth once daily. 90 tablet3 clopidogrel (PLAVIX) 75 mg tablet Take 1 tablet by mouth once daily. 90 tablet 3 ezetimibe (ZETIA) 10 mg tablet Take 1 tablet by mouth once daily. 90 tablet 3 isosorbide mononitrate ER (IMDUR) 30 mg 24 hr tablet Take 0.5 tablets by mouth once daily. 45 tablet 3 nitroglycerin sublingual (NITROQUICK) 0.4 mg SL tablet Dissolve 1 tablet under the tongue as directed. DISSOLVE ONE(1) TABLET UNDER THE TOUNGUE NEEDED FOR CHEST PAIN,EVERY 5 MIN X3 1 Bottle of 25 1 simvastatin (ZOCOR) 40 mg tablet Take 1 tablet by mouth daily at bedtime. 90 tablet 3 acetaminophen 650 mg CR tablet Take 1,300 mg by mouth twice daily. No current facility-administered medications for this visit. DEPRESSION ASSESSMENT Never done EXAM: BP 130/68 Pulse 76 Resp 14 Wt 75.3 kg (166 lb) SpO2 98% BMI 26.00 kg/m Pleasant elderly woman in no acute distress. Alert and oriented all spheres. Normal affect and cognition. Speech normal. No deficits to learning or comprehension. Skin warm, dry, pink to lips and nailbeds. Normal turgor. Respirations regular and unlabored. HEENT: NCAT. No scleral icterus or conjunctival injection. TM's clear. Nose and oropharynx free from injection or lesion. Oral membranes moist and pink. No cervical lymph nodes. Thyroid non-tender, no masses, or enlargement. Carotids pulses 2+/4+ without bruits. No JVD with HOB at 30 degrees. Abdomen: active bowel sounds throughout, soft, nontender, no masses or organomegaly. No CVAT. Extrem: no clubbing or cyanosis. Edema: none. Extremities are warm and pink with prompt capillary refill. Walks vigorously on request to walk down hallway and turned and came back. As he turned kicked right leg out a little but not off balance. Dorsal pedal pulses are strong 2/4+, warm toes, normal nails, good hair on legs. ASSESSMENT/PLAN: 1. 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) - ICD9: 414.01, 413.9, ICD10: I25.118 (primary diagnosis) Stable, mild brief pressure across upper chest, , 1 minute - CBC + DIFF - COMP METABOLIC PANEL 2. TIA (transient ischemic attack) - ICD9: 435.9, ICD10: G45.9 stable - CBC + DIFF - COMP METABOLIC PANEL 3. Essential hypertension, benign - ICD9: 401.1, ICD10: I10 - good control - Continue current medication(s) - Recommended regular aerobic exercise. - Recommend home blood pressure monitoring, to bring results in on next visit - Goal of BP <130/80 - CBC + DIFF - COMP METABOLIC PANEL 4. Mixed hyperlipidemia - ICD9: 272.2, ICD10: E78.2 - good control - Continue current medication. - CBC + DIFF - COMP METABOLIC PANEL - LIPID PANEL BASIC 5. Impaired fasting glucose - ICD9: 790.21, ICD10: R73.01 - COMP METABOLIC PANEL - HGB A1C 6. Stage 3a chronic kidney disease (HCC) - ICD9: 585.3, ICD10: N18.31 - eGFR: Stable - Counseled on avoiding regular use of NSAIDs, adequate hydration, potential risk of IV dye - COMP METABOLIC PANEL 7. Iron deficiency anemia, unspecified iron deficiency anemia type - ICD9: 280.9, ICD10: D50.9 - CBC + DIFF 8. Gastroesophageal reflux disease, unspecified whether esophagitis present - ICD9: 530.81, ICD10: K21.9 - Discussed lifestyle modifications including limiting caffeine, no meals three hours before sleep,and head of bed elevation - MAGNESIUM BLD 9. Spinal stenosis, lumbar region, without neurogenic claudication - ICD9: 724.02, ICD10: M48.061 Persistent leg cramps at night but can do anything he wants. Lizeth Saini PA-C documented in this encounterThe [facility]05-[facility] History of Present illness Narrative* Paris Parker RN - 12/23/2022 2:41 PM EDT CDM Telephonic Outreach Provider Jaiden/ALVAREZ Saini PA-C Patient has noticed some swelling in his legs that develops during the day but goes down at night. Denies SOB or redness or new pain in his legs. (Recent hip injection has decreased his pain by 90% per patient). He said he has been eating a lot of pies lately and has gained 5 lbs in 2 wks. However,it is an estimate since he does not write down his wts. Asked him to do so and report if still going up or having symptoms. He declined the need to speak with our virtualist and said he feels OK. He has an appointment with you in six days Please have your staff reach out to the patient with any further orders or instructions. PC Trim Sawyer, Please call patient to assist with a medical bill that may be a double charge forthe procedure he had done on 11.26.22. Thank you, Paris Parker histology technologistStatistical Methods Professor CHF CKD Spoke with patient who reports that he is feeling well. He has noticed some swelling in his legs that develops during the day but goes down at night. Denies SOB or redness or pain in his legs. IHe said he has been eating a lot of pies lately and has gained 5 lbs in 2 wks. However, it is an estimatesince he does not write down his wts. Asked him to do so every morning so he can see exactly what the numbers are. He declined the need to speak with our virtualist and said he feels OK. He has an appointment with PCP in six days. Instructed to call his PCP's office if he develops any worsening problems. He had the procedure to treat his hip pain and said it has improved the pain control by 90%. He is concerned that he had to pay $250 when he went in to have the procedure done and then got another bill for the same amount. Explained that I will ask our SW to assist. Appointments for Next 60 Days Date Time Provider Location Dept Phone 12/29/2022 2:00 PM Lizeth [facility] [phone] Contacted for: Routine Telephonic Outreach Contact made with patient: Yes Patient identified by name and date of . Discussed care with patient Are you experiencing any new or worsening symptoms you need to talk about today? No Disease Specific Do you check your blood pressure at home? Yes, Enter readings: states they are good and he will bring to appointment on Thursday. Do you have new or worsening shortness of breath with activity? No Do you have new or worsening trouble breathing while lying flat? No Do you have new or worsening swelling of legs, feet or ankles? Yes but it goes down at night Do you feel like you are dehydrated for any reason, including not being able to eat or drink normally, or having less urine/much darker urine than normal for you? No Do you check your daily weight at home? Yes, Have you noticed a sudden gain in weight greater than three pounds in a day or three pounds in a week? Yes possible five lbs in two weeks. Based on assessment coordinator, the following disposition is advised: Symptoms present, not severe. Routed to: Primary Care Social Work EDWARDO Education Provided this Outreach: No Paris Parker RN December 23, 2022 2:58 PM documented in this encounterThe [facility]05-[facility] History of Present illness Narrative* Paris Parker RN - 12/22/2022 9:09 AM EDT CDM Telephonic Outreach Provider Action/ELIZABETI Left CHF CKD Appointments for Next 60 Days Date Time Provider Location Dept Phone 12/29/2022 2:00 PM Lizeth [facility] [phone] Contacted for: Routine Telephonic Outreach Contact made with patient: No, left message. Paris Parker RN December 22, 2022 3:44 PM documented in this encounterThe [facility]04-[facility] Surgical operation note* Brief Op Note - Edith Pressley APRN.CNP - 11/26/2022 12:33 PM EDT BRIEF OP NOTE LOG ID: [id number] Surgery/Procedure Date: 11/26/2022 Surgeon(s)/Proceduralist(s) and Contact Lens Curve Grinder(s): Edith Pressley APRN.CNP Procedure(s): Imaging guided right hip pain injection Anesthesia: local 5 ml lidocaine Findings: Successful right hip pain injection of 3ccLidocaine 1% and Marcaine 0.5% and Kenalog 40mg/ml - 2 cc's . Pre-procedure pain of 3/10 Post-procedure pain of 0/10 Estimated Blood Loss: <1 ml Specimens: None Complications: None Pre-Op/Pre-Procedure Diagnosis: right hip pain Post-Op/Post-Procedure Diagnosis: same SIGNATURE: Edith Pressley APRN.CNP PATIENT NAME: Angie Dutton DATE: November 26, 2022 TIME: 12:33 PM PAGER/CONTACT #: documented in this encounterThe [facility]03-31-[facility] History of Present illness Narrative* Paris Parker RN - 11/21/2022 9:33 AM EDT INSIGHT CDM TELEPHONIC OUTREACH Provider Action/FYI: Spoke with patient who reports that he is feeling well except for his chronic right hip and groin pain and has no needs at this time. States wts, BPs, BGs are all good. He is going on Thursday for his hip injection. He is asking if he needs a inventory associate and driver. Explained that Iwould think he would because first of all, he is having a procedure on his driving leg. Gave his the phone number to the department so she can confirm. CHF CKD Appointments for Next 60 Days Date Time Provider Location Dept Phone 12/29/2022 2:00 PM Lizeth [facility] [phone] Contact made with patient: Yes Patient identified by name and . Discussed care with patient and spouse It s nice talking to you again. As a reminder, this is our bi-weekly check-in where I will be asking you questions about your health. This will only take a few minutes of your time. Is this a good time? Yes Symptoms What Chronic Disease(s) does the patient have: CHF and CKD Do you check your blood pressures at home? Yes, Enter readings: good Do you have new or worse shortness of breath with activity? No Do you have new or worsening trouble breathing while lying flat? No Do you have new or worsening swelling of legs, feet or ankles? No Do you feel like you are dehydrated for any reason, including not being able to eat or drink normally, or having less urine/much darker urine than normal for you? No Do you check your daily weight at home? Yes, Have you noticed a sudden gain in weight greater than three pounds in a day or three pounds in a week? No Are you having any other symptoms that your PCP needs to know about? No Symptoms: no new symptoms Symptom Escalation EDWARDO Education Ordered -: No The patient required an escalation for symptom(s)? No Medications Do you have any questions about taking your medication or which medications you should be on? No Do you need any medication refills at this time, including any of the medications you might take only when needed? No Social We would like to make sure you have what you need so that your basic needs are met- including your personal safety, food, housing, transportation and medications? Would you like to speak with a social work horses or mules teamster to help give you support for any of these needs? No It can be normal to feel anxious or down during a time like this. Would you like to talk to a mental health professional about how you have been feeling? No Closing Thank you for taking the time to talk with me today. We want to work with you to ensure that we arekeeping your medical condition(s) well-controlled and to keep you healthy and out of the doctor's office or hospital. It s also not too late for me to sign you up for automated weekly questionnaires through [employer]. This is an easy way for us to stay connected each week. Are you interested? No, I understand. We can always sign you up in the future if you change your mind. Just as a reminder, will continue to call you every other week to check in on your health. Our calls should take 10-15 minutes or less. Remember, if you have concerns in between our calls, please call your PCP's office right away. Thank you. Enter next patient outreach date for two weeks on the same day of the week as today in the Track PtOutreach and End outreach. documented in this encounterThe [facility]03-23-[facility]23 Miscellaneous Notes* Telephone Encounter - Geena Darling LPN - 11/13/2022 2:25 PM EDT In note was noted she was contacting [facility] to update. * Telephone Encounter - Lizeth Saini PA-C - 11/13/2022 1:10 PM EDT No registry listed. Have [employer] change license. Thanks, Aidan Saini PA-C * Telephone Encounter - Lizeth Hodgson RN - 11/12/2022 10:55 AM EDT phoned to let pcp know, she and patient have decided they no longer want to be on the donor list. Asking provider to remove it from the [facility] records. Reports they signed up for that when they were younger but now that they are older do not want to do it. documented in this encounterThe [facility]03-17-[facility]23 History of Present illness Narrative* Paris Parker RN - 11/07/2022 8:54 AM EDT PRIMARY CARE COORDINATION QUICK NOTE Provider Action/FYI Message back from Rosa Dallas PA-C: The patient should be able to schedule the injection at [facility]. Radiology can assist him with scheduling. Radiology dept [facility] [phone]. Called patient who asked me to give the info to his who wrote everything down. Explained 10/02/22 order and gave her the phone number to call. INSIGHT CDM TELEPHONIC OUTREACH Provider Action/FYI: Spoke with patient who reports that he is feeling well except for chronic right hip/groin pain. Message last month from his orthopedist indicated that he needed to get it done at [facility]. The patient states he is not covered to get the procedure done there and would like to have it done at another [facility] facility. I sent a message to his orthopedist and PA whose office communicated with patient's last month. Patient says his is now home from the hospital, and he is relieved by that. 119/66 BG 82 He stopped eating sweets and lost 5 lbs. Explained that he needs to ensure that he eats well and report if BG start running low. The lid of his trash can hit his head yesterday but he has no bruising, headaches, vision changes, dizziness, etc. He said he discussed with his PCP today at his 's appointment and was told he was OK. Advised him to seek treatment if any symptoms develop. He voiced understanding. Contact made with patient: Yes Patient identified by name and . Discussed care with patient It s nice talking to you again. As a reminder, this is our bi-weekly check-in where I will be asking you questions about your health. This will only take a few minutes of your time. Is this a good time? Yes Symptoms What Chronic Disease(s) does the patient have: CHF and CKD Do you check your blood pressures at home? Yes, Enter readings: as noted Do you have new or worse shortness of breath with activity? No Do you have new or worsening trouble breathing while lying flat? No Do you have new or worsening swelling of legs, feet or ankles? No Do you feel like you are dehydrated for any reason, including not being able to eat or drink normally, or having less urine/much darker urine than normal for you? No Do you check your daily weight at home? Yes, Have you noticed a sudden gain in weight greater than three pounds in a day or three pounds in a week? No Are you having any other symptoms that your PCP needs to know about? No Symptoms: chronic right hip pain Symptom Escalation EDWARDO Education Ordered -: No The patient required an escalation for symptom(s)? No Medications Do you have any questions about taking your medication or which medications you should be on? No Do you need any medication refills at this time, including any of the medications you might take only when needed? No Social We would like to make sure you have what you need so that your basic needs are met- including your personal safety, food, housing, transportation and medications? Would you like to speak with a social work horses or mules teamster to help give you support for any of these needs? No It can be normal to feel anxious or down during a time like this. Would you like to talk to a mental health professional about how you have been feeling? No Closing Thank you for taking the time to talk with me today. We want to work with you to ensure that we arekeeping your medical condition(s) well-controlled and to keep you healthy and out of the doctor's office or hospital. It s also not too late for me to sign you up for automated weekly questionnaires through [employer]. This is an easy way for us to stay connected each week. Are you interested? No, I understand. We can always sign you up in the future if you change your mind. Just as a reminder, will continue to call you every other week to check in on your health. Our calls should take 10-15 minutes or less. Remember, if you have concerns in between our calls, please call your PCP's office right away. Thank you. Enter next patient outreach date for two weeks on the same day of the week as today in the Track PtOutreach and End outreach. INSIGHT M TELEPHONIC OUTREACH Provider Action/FYI: 2nd TO attempt At initial call patient said he was at a doctor's office and asked me to call back later. CHF CKD Appointments for Next 60 Days Date Time Provider Location Dept Phone 12/29/2022 2:00 PM Lizeth [facility] [phone] Contact made with patient: Yes Patient identified by name and . Discussed care with patient It s nice talking to you again. As a reminder, this is our bi-weekly check-in where I will be asking you questions about your health. This will only take a few minutes of your time. Is this a good time? No - today is not a good time for the patient. Agree on a call back time and connect with the patient then. If applicable, update the next patient outreach date using the Track Pt Outreach. End outreach documented in [facility]The [facility] History of Present illness Narrative* Paris Parker RN - 11/05/2022 9:40 AM EDT [facility] TELEPHONIC OUTREACH Provider Action/FYI: Left CHF CKD Appointments for Next 60 Days Date Time Provider Location Dept Phone 12/29/2022 2:00 PM Lizeth [facility]IN[facility] [phone] Contact made with patient: No - Left message Hello my name is Paris Parker RN your Associate Team Physician from the [facility] I am calling today for your bi-weekly check in. I am sorry I missed your call. I will reach out to you again tomorrow. (if the third call I will reach out to you again next week) Enter next patient outreach date for the following business day using the Track Pt Outreach. End outreach. documented in this encounterThe [facility]03-[facility] History of Present illness Narrative* Paris Parker RN - 10/22/2022 9:26 AM EST [facility] TELEPHONIC OUTREACH Provider Action/FYI: Spoke with patient who reports that he is feeling well and has no needs at this time. His was just hospitalized for a mental issue but his daughter and son in law check on him every day. He gave me permission to speak with them if ever needed. He said he understands how to take his medications and he is eating and drinking well. States no need right now. BPs are WNL and he got a scale. Instructed on when he would report a sudden wt gain. Will check back in two weeks. CHF CKD Contact made with patient: Yes Patient identified by name and . Discussed care with patient It s nice talking to you again. As a reminder, this is our bi-weekly check-in where I will be asking you questions about your health. This will only take a few minutes of your time. Is this a good time? Yes Symptoms What Chronic Disease(s) does the patient have: CHF and CKD Do you check your blood pressures at home? Yes, Enter readings: 120s/60s Do you have new or worse shortness of breath with activity? No Do you have new or worsening trouble breathing while lying flat? No Do you have new or worsening swelling of legs, feet or ankles? No Do you feel like you are dehydrated for any reason, including not being able to eat or drink normally, or having less urine/much darker urine than normal for you? No Do you check your daily weight at home? Yes, Have you noticed a sudden gain in weight greater than three pounds in a day or three pounds in a week? No Are you having any other symptoms that your PCP needs to know about? No Symptoms: none Symptom Escalation EDWARDO Education Ordered -: No The patient required an escalation for symptom(s)? No Medications Do you have any questions about taking your medication or which medications you should be on? No Do you need any medication refills at this time, including any of the medications you might take only when needed? No Social We would like to make sure you have what you need so that your basic needs are met- including your personal safety, food, housing, transportation and medications? Would you like to speak with a social work horses or mules teamster to help give you support for any of these needs? No It can be normal to feel anxious or down during a time like this. Would you like to talk to a mental health professional about how you have been feeling? No Closing Thank you for taking the time to talk with me today. We want to work with you to ensure that we arekeeping your medical condition(s) well-controlled and to keep you healthy and out of the doctor's office or hospital. It s also not too late for me to sign you up for automated weekly questionnaires through [employer]. This is an easy way for us to stay connected each week. Are you interested? No, I understand. We can always sign you up in the future if you change your mind. Just as a reminder, will continue to call you every other week to check in on your health. Our calls should take 10-15 minutes or less. Remember, if you have concerns in between our calls, please call your PCP's office right away. Thank you. Enter next patient outreach date for two weeks on the same day of the week as today in the Track PtOutreach and End outreach. documented in this encounterThe [facility]02-13-[facility]23 Miscellaneous Notes* Telephone Encounter - Cristy Moe Ma - 10/06/2022 9:43 AM EST Letter mailed to pt home of results. Cristy Moe MA * Telephone Encounter - Cristy Moe Ma - 10/06/2022 9:42 AM EST ----- Message from Lizeth Saini PA-C sent at 10/03/2022 5:25 PM EST ----- Let him know labs look okay. Thanks, Aidan Saini PA-C documented in this encounterThe [facility]02-07-[facility]23 Instructions* Patient Instructions* Lizeth Saini PA-C - 09/30/2022 2:06 PM EST Please push fluids with water, non-caffeinated and non-alcoholic beverages. Renal function has been a little off. documented in this encounterThe [facility]02-07-[facility]23 History of Present illness Narrative* Lizeth Saini PA-C - 09/30/2022 1:03 PM EST 82 year old male with c/o here for follow up. From last visit on 08/04/22: dizzy, falling but catches self, very tired over last 2 weeks, out of breath. Getting plenty of sleep. No change in bowels. No stomach pain or heart burn No change in bowels, no black or tarry stools. Since last visit: Has not experienced dizziness, shortness of breath, or fatigue. Sleeping well. Only current issue is R hip pain. Following with Dr. Ramos. Has three questions: Dr. Ramos offered to do injection, no appointment scheduled, what to do? Nurse keeps calling about him getting a scale to weigh himself. Weight up 7lbs, is this important? Carrying dog at vet's office, missed step in parking lot and pulled muscle in left shoulder. Smacked wall with left hand. - Occurred one day ago, pain is located in L shoulder. 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 Tavares 06/26/2021 echocardiogram [facility] Dr. Murray: LV size and LV SF WNL, EF 65%, apical false tendon noted. Stage II diastolic dysfunction. No regional wall motion abnormalities. RV size and RV SF WNL. LA moderate enlarged. RA WNL. Mild mitral annular calcification with extension to base of mitral valve leaflet. Trivial TVI, mild focal aortic valve calcification. Trivial SHAYLEE. Trivial PVI. RVSP 36 mmHg.Bubble study showed no [id number] shunt intra-atrial. 10/17/2019 cardiac perfusion exercise stress: WNL, no inducible ischemia, no evidence of scarred myocardium, LV size and LV SF WNL, EF 68%. RV size WNL 09/29/[address] Dominguez: mild ischemia in region of CX (3%) and RCA (5%). Normal LV and RVsize and function. LVEF stressed 62%, resting 57% [facility] Dr. Tavares Current meds: NTG 0.4 mg SL as needed chest pain Clopidogrel 75 mg daily Simvastatin 40 mg daily at bedtime Ezetimbe 10mg daily Metoprolol succinate ER 25 mg daily Checks BP daily in the AM: usually 120-140s/60-70s Use of NTG: No Chest pain, arm, jaw pain, neck, or upper back pain suggestive of angina: No. SOB: No Dyspnea with exertion: No orthopnea: No Cough : No racing or irregular heartbeats: No palpitations: No syncopal sx: No Headache: No Unexplainable fatigue: No Leg swelling: No Nausea: No diaphoresis: No Heartburn: No Claudication: no, but pain in right thigh which affects gait. Out putting up decorations and lights, says he has been very active, exercising with walking. Smoking: No Following Low cholesterol, high fiber diet? Not specifically If on statin: muscle aches? No If on statin: GI sx or diarrhea? No Additional history: none. Lab review: Component Latest Ref Rng & Units 02/03/2022 06/03/2022 07/24/2022 Protein, Total 6.3 - 8.0 g/dL 6.9 7.0 6.7 Albumin 3.9 - 4.9 g/dL 4.5 4.5 4.3 Calcium 8.5 - 10.2 mg/dL 9.8 9.7 9.5 Bilirubin, Total 0.2 - 1.3 mg/dL 0.6 0.6 0.6 Alkaline Phosphatase 38 - 113 U/L 67 64 66 AST 14 - 40 U/L 24 19 19 ALT 10 - 54 U/L 14 10 12 Glucose 74 - 99 mg/dL 97 86 98 BUN 9 - 24 mg/dL 13 13 14 Creatinine 0.73 - 1.22 mg/dL 1.36 (H) 1.42 (H) 1.38 (H) Sodium 136 - 144 mmol/L 140 140 143 Potassium 3.7 - 5.1 mmol/L 4.2 4.4 4.5 Chloride 97 - 105 mmol/L 105 104 106 (H) CO2 22 - 30 mmol/L 23 24 26 Anion Gap 9 - 18 mmol/L 12 12 11 eGFR >=60 mL/min/1.73m 52 (L) 49 (L) 51 (L) Cholesterol, Total <200 mg/dL 147 147 Triglyceride <150 mg/dL 158 (H) 110 HDL Cholesterol >39 mg/dL 57 57 Non HDL Cholesterol <130 mg/dL 90 90 Fasting Time hrs 13 12 VLDL Cholesterol <30 mg/dL 32 (H) 22 TC:HDL Ratio <5.10 2.58 2.58 LDL Cholesterol <100 mg/dL 58 68 LDL:HDL Ratio <2.54 1.02 1.19 Impaired fasting glucose Hemoglobin A1C (%) Date Value 07/24/2022 5.6 02/03/2022 5.8 04/16/2021 5.7 01/30/2020 5.7 ) Stage 3a chronic kidney disease (hcc) As above Chronic itp (idiopathic thrombocytopenia) (hcc) Iron deficiency anemia, unspecified iron deficiency anemia type Denies fatigue, weakness, bloody or tarry stools. Component Latest Ref Rng & Units 02/03/2022 05/09/2022 06/03/2022 06/11/2022 WBC 3.70 - 11.00 k/uL 5.20 4.57 6.34 RBC 4.20 - 6.00 m/uL 4.96 4.84 4.86 Hemoglobin 13.0 - 17.0 g/dL 14.2 14.1 14.1 Hematocrit 39.0 - 51.0 % 45.2 44.3 43.1 MCV 80.0 - 100.0 fL 91.1 91.5 88.7 MCH 26.0 - 34.0 pg 28.6 29.1 29.0 MCHC 30.5 - 36.0 g/dL 31.4 31.8 32.7 RDW-CV 11.5 - 15.0 % 14.0 14.2 14.2 Platelet Count 150 - 400 k/uL 77 (L) 66 (L) 94 (L) 80 (L) MPV 9.0 - 12.7 fL 14.7 (H) 13.5 (H) 14.2 (H) Neut% % 58.6 62.2 Abs Neut (ANC) 1.45 - 7.50 k/uL 2.68 3.94 Lymph% % 33.3 29.3 Abs Lymph 1.00 - 4.00 k/uL 1.52 1.86 [place]% % 5.5 6.3 Abs [place] <0.87 k/uL 0.25 0.40 Eosin% % 1.5 1.1 Abs Eosin <0.46 k/uL 0.07 0.07 Baso% % 0.7 0.6 Abs Baso <0.11 k/uL 0.03 0.04 Immature Gran % % 0.4 0.5 IMMATURE GRANS (ABS) <0.10 k/uL <0.03 0.03 NRBC /100 WBC 0.0 0.0 Absolute nRBC <0.01 k/uL <0.01 <0.01 <0.01 DTYPE Auto Auto Gastroesophageal reflux disease, unspecified whether esophagitis present Current medication: Pantoprazole DR 20mg 2 tabs daily Current symptoms: doing well. Last Mg level if on PPI chronically: due. Heartburn is controlled: Yes. Dysphagia: No. Bloody or black stools: No. Bowel changes: No. Good stool every morning. Softer stools within the last year. No strain, black or tarry stool. Spinal stenosis, lumbar region, without neurogenic claudication Current medications: Gabapentin 400mg twice a day C/o aching and tingling in backs of calves. Takes Tylenol with onset of pain, this helps relieve pain. Primary insomnia Current medications: Cyclobenzaprine 5mg daily HS Trazodone 50mg daiily HS Sleeping well, all through the night. HISTORIES FAMILY HISTORY Problem Relation Age of Onset Heart Mother Hypertension Mother Heart Father Heart Sister Heart Brother Stroke Sister Colon Cancer No Family History 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 PAST SURGICAL HISTORY Procedure Laterality Date ARTHROSCOPY KNEE DIAGNOSTIC W/WO SYNOVIAL BX SPX 2000 both COLONOSCOPY FLX DX W/COLLJ SPEC WHEN PFRMD 2001 Colonoscopy COLONOSCOPY FLX DX W/COLLJ SPEC WHEN PFRMD 07/13/2014 Colonoscopy COLONOSCOPY GEN ANES 11/26/2020 CORONARY ARTERY BYP W/VEIN & ARTERY GRAFT 3 VEIN 1981 CABG, three grafts EGD 11/26/2020 EGD 02/14/2021 EYE SURGERY HX FOOT SURGERY HX Left HEART SURGERY HX NEUROPLASTY &/TRANSPOS MEDIAN NRV CARPAL TUNNE 1998 Carpal tunnel decomp bilateral PAST SURGICAL HISTORY OF surgery on umbilicus due to bleeding PAST SURGICAL HISTORY OF 2 umbical mass resection SIGMOIDOSCOPY FLX DX W/COLLJ SPEC BR/WA IF PFRMD 08/29/2004 Sigmoidoscopy TONSILLECTOMY HX Social History Tobacco Use Smoking status: Former Years: 29.00 Types: Cigarettes Start date: 08/24/1955 Quit date: 08/24/1984 Years since quittin.1 Smokeless tobacco: Never Tobacco comments: QUIT at age 44, started at 15 Vaping Use Vaping Use: Never used Substance Use Topics Alcohol use: Yes Alcohol/week: 17.5 - 35.0 standard drinks Types: 7 - 14 Cans of Beer (12oz) per week Comment: 2 beers a day Drug use: No ACTIVE PROBLEM LIST Spinal Stenosis, Lumbar Region, Without Neurogenic Claudication Thoracic Or Lumbosacral Neuritis Or Radiculitis, Unspecified Lumbosacral Spondylosis Without Myelopathy Essential Hypertension, Benign Mixed Hyperlipidemia Coronary Atherosclerosis Insomnia, Unspecified Esophageal Reflux Impaired Fasting Glucose Allergic Rhinitis, Cause Unspecified Elevated Serum Creatinine Serum Calcium Elevated Atherosclerosis of [place] Coronary Artery of [place] Heart With Stable Angina Pectoris (Hcc) Tia (Transient Ischemic Attack) Chronic Right Hip Pain Pain of Right Calf Stage 3a Chronic Kidney Disease (Hcc) Iron Deficiency Anemia Chronic Itp (Idiopathic Thrombocytopenia) (Hcc) Right Groin Pain Hypertensive Kidney Disease With Stage 3a Chronic Kidney Disease (Hcc) Bilateral Carotid Artery Stenosis Current Outpatient Medications Medication Sig Dispense Refill traZODone (DESYREL) 50 mg tablet Take 1 tablet by mouth daily at bedtime. 90 tablet 3 gabapentin (NEURONTIN) 400 mg capsule Take 1 capsule by mouth twice daily for 180 days. 180 capsule1 metoprolol succinate ER (TOPROL XL) 25 mg 24 hr tablet Take 1 tablet by mouth once daily. 90 tablet3 clopidogrel (PLAVIX) 75 mg tablet Take 1 tablet by mouth once daily. 90 tablet 3 ezetimibe (ZETIA) 10 mg tablet Take 1 tablet by mouth once daily. 90 tablet 3 isosorbide mononitrate ER (IMDUR) 30 mg 24 hr tablet Take 0.5 tablets by mouth once daily. 45 tablet 3 cyclobenzaprine (FLEXERIL) 5 mg tablet Take 1 tablet by mouth at bedtime as needed for muscle spasm. 90 tablet 1 nitroglycerin sublingual (NITROQUICK) 0.4 mg SL tablet Dissolve 1 tablet under the tongue as directed. DISSOLVE ONE(1) TABLET UNDER THE TOUNGUE NEEDED FOR CHEST PAIN,EVERY 5 MIN X3 1 Bottle of 25 1 simvastatin (ZOCOR) 40 mg tablet Take 1 tablet by mouth daily at bedtime. [address] (PROTONIX) 20 mg tablet Take 2 tablets by mouth once daily. 180 tablet 1 acetaminophen 650 mg CR tablet Take 1,300 mg by mouth twice daily. No current facility-administered medications for this visit. ADVANCE DIRECTIVE DISCUSSION due on 08/24/2022 DEPRESSION ASSESSMENT Never done EXAM: BP 144/76 Pulse 84 Resp 16 Wt 78 kg (172 lb) SpO2 97% BMI 26.94 kg/m Pleasant adult man in no acute distress. Alert and oriented all spheres. Normal affect and cognition. Speech normal. No deficits to learning or comprehension. Skin warm, dry, pink to lips and nailbeds. Normal turgor. Respirations regular and unlabored. HEENT: NCAT. No scleral icterus or conjunctival injection. TM's clear. Nose and oropharynx free from injection or lesion. Oral membranes moist and pink. No cervical lymph nodes. Thyroid non-tender, no masses, or enlargement. Carotids pulses 3+ without bruits. No JVD with HOB at 30 degrees. Chest is normal shape. Lungs are clear to all [place] with good air exchange through out. HRRR without murmur or gallop. No lifts, heaves, or rubs. Extrem: no clubbing or cyanosis. Edema: none. Extremities are warm and pink with prompt capillary refill. ASSESSMENT/PLAN: 1. 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) - ICD9: 414.01, 413.9, ICD10: I25.118 (primary diagnosis) - Stable, no angina - Ordered CBC - COMP METABOLIC PANEL 2. Essential hypertension, benign - ICD9: 401.1, ICD10: I10 - good control - Continue current medication(s) - Recommended regular aerobic exercise. - Recommend home blood pressure monitoring, to bring results in on next visit - Goal of BP <130/80 3. Mixed hyperlipidemia - ICD9: 272.2, ICD10: E78.2 - good control - Continue current dose of simvastatin (Zocor) 40 mg. - Ordered LIPID PANEL BASIC - COMP METABOLIC PANEL 4. Impaired fasting glucose - ICD9: 790.21, ICD10: R73.01 - Stable 5. Stage 3a chronic kidney disease (HCC) - ICD9: 585.3, ICD10: N18.31 - eGFR: Stable, Creatinine continuing to trend upward. - Counseled on avoiding regular use of NSAIDs, adequate hydration, potential risk of IV dye - Ordered COMP METABOLIC PANEL 6. Iron deficiency anemia, unspecified iron deficiency anemia type - ICD9: 280.9, ICD10: D50.9 - Stable 7. Chronic ITP (idiopathic thrombocytopenia) (HCC) - ICD9: 287.31, ICD10: D69.3 - Stable, improving numbers 8. Gastroesophageal reflux disease, unspecified whether esophagitis present - ICD9: 530.81, ICD10: K21.9 - Stable - Continue treatment with Pantoprazole DR 20 mg tab daily - Educated patient on avoiding food high with acid such as citrus juices, tomato products, and candy. 9. Spinal stenosis, lumbar region, without neurogenic claudication - ICD9: 724.02, ICD10: M48.061 - Persistent symptoms - Following with Dr. Ramos and planning for a corticosteroid injection to help with pain. 10. TIA (transient ischemic attack) - ICD9: 435.9, ICD10: G45.9 - Symptoms resolved, stable 11. Elevated serum creatinine - ICD9: 790.99, ICD10: R79.89 - Creatinine levels continue to trend upward - Continue to monitor serum creatinine levels. - Ordered COMP METABOLIC PANEL and ALBUMIN/CREAT RATIO RND UR 12. Primary insomnia - ICD9: 307.42, ICD10: F51.01 - Well managed with medication Note to Dr. Ramos asking to have his staff set up injection. F/u 3 months per patient request Lizeth Saini PA-C documented in this encounterThe [facility]02-[facility] History of Present illness Narrative* Paris Parker RN - 09/24/2022 9:07 AM EST [facility] TELEPHONIC OUTREACH Provider Action/FYI: Spoke with the patient who reports that he is feeling well and has no needs at this time. He is waiting to hear about getting a joint injection from orthopedics. Suggested he call the office if he wants to know when he can get it done. He has the phone number. Reviewed upcoming appointment with PCP. He has gotten a new scale and is doing daily wts again. BPs/pulse: 131/69 74 128/73 80 128/69 65 123/70 89 CHF CKD Appointments for Next 60 Days Date Time Provider Location Dept Phone 09/26/2022 2:40 PM Lizeth [facility] [phone] Contact made with patient: Yes Patient identified by name and . Discussed care with patient It s nice talking to you again. As a reminder, this is our bi-weekly check-in where I will be asking you questions about your health. This will only take a few minutes of your time. Is this a good time? Yes Symptoms What Chronic Disease(s) does the patient have: CHF and CKD Do you check your blood pressures at home? Yes, Enter readings: as noted Do you have new or worse shortness of breath with activity? No Do you have new or worsening trouble breathing while lying flat? No Do you have new or worsening swelling of legs, feet or ankles? No Do you feel like you are dehydrated for any reason, including not being able to eat or drink normally, or having less urine/much darker urine than normal for you? No Do you check your daily weight at home? Yes, Have you noticed a sudden gain in weight greater than three pounds in a day or three pounds in a week? No Are you having any other symptoms that your PCP needs to know about? No Symptoms: none Symptom Escalation EDWARDO Education Ordered -: No The patient required an escalation for symptom(s)? No Medications Do you have any questions about taking your medication or which medications you should be on? No Do you need any medication refills at this time, including any of the medications you might take only when needed? No Social We would like to make sure you have what you need so that your basic needs are met- including your personal safety, food, housing, transportation and medications? Would you like to speak with a social work horses or mules teamster to help give you support for any of these needs? No It can be normal to feel anxious or down during a time like this. Would you like to talk to a mental health professional about how you have been feeling? No Closing Thank you for taking the time to talk with me today. We want to work with you to ensure that we arekeeping your medical condition(s) well-controlled and to keep you healthy and out of the doctor's office or hospital. It s also not too late for me to sign you up for automated weekly questionnaires through [employer]. This is an easy way for us to stay connected each week. Are you interested? No, I understand. We can always sign you up in the future if you change your mind. Just as a reminder, will continue to call you every other week to check in on your health. Our calls should take 10-15 minutes or less. Remember, if you have concerns in between our calls, please call your PCP's office right away. Thank you. Enter next patient outreach date for two weeks on the same day of the week as today in the Track PtOutreach and End outreach. documented in this encounterThe [facility]01[facility] History of Present illness Narrative* Paris Parker RN - 09/03/2022 8:39 AM EST [facility] TELEPHONIC OUTREACH Provider Action/FYI: Urine testing after my last call showed no infection. PCP note:Urine shows he is over drinking fluids. This may be why he's urinating more frequently. Spoke with the patient who reports that he is feeling well and has no needs at this time. States heis not overdrinking fluids. Has not yet gotten a new scale. His old scale is not working properly because he will get several different readings when he checks his wt several times in a row. Had BP reading 149/61 today. It Is usually closer to 130s/60s. Advised him to write down his readings and let his doctor know if he is running high. He voiced understanding. CHF CKD Appointments for Next 60 Days Date Time Provider Location Dept Phone 09/26/2022 2:40 PM Lizeth SAINI [facility] [phone] Contact made with patient: Yes Patient identified by name and . Discussed care with patient It s nice talking to you again. As a reminder, this is our bi-weekly check-in where I will be asking you questions about your health. This will only take a few minutes of your time. Is this a good time? Yes Symptoms What Chronic Disease(s) does the patient have: CHF and CKD Do you check your blood pressures at home? Yes, Enter readings: as noted Do you have new or worse shortness of breath with activity? No Do you have new or worsening trouble breathing while lying flat? No Do you have new or worsening swelling of legs, feet or ankles? No Do you feel like you are dehydrated for any reason, including not being able to eat or drink normally, or having less urine/much darker urine than normal for you? No Do you check your daily weight at home? No Are you having any other symptoms that your PCP needs to know about? No Symptoms: no Symptom Escalation EDWARDO Education Ordered -: No no mychart account The patient required an escalation for symptom(s)? No Medications Do you have any questions about taking your medication or which medications you should be on? No Do you need any medication refills at this time, including any of the medications you might take only when needed? No Social We would like to make sure you have what you need so that your basic needs are met- including your personal safety, food, housing and medications? Would you like to speak with a social work horses or mules teamster to help give you support for any of these needs? No It can be normal to feel anxious or down during a time like this. Would you like to talk to a mental health professional about how you have been feeling? No Closing Thank you for taking the time to talk with me today. We want to work with you to ensure that we arekeeping your medical condition(s) well-controlled and to keep you healthy and out of the doctor's office or hospital. It s also not too late for me to sign you up for automated weekly questionnaires through [employer]. This is an easy way for us to stay connected each week. Are you interested? No, I understand. We can always sign you up in the future if you change your mind. Just as a reminder, will continue to call you every other week to check in on your health. Our calls should take 10-15 minutes or less. Remember, if you have concerns in between our calls, please call your PCP's office right away. Thank you. Enter next patient outreach date for two weeks on the same day of the week as today in the Track PtOutreach and End outreach. [facility] History of Present illness Narrative* Cristiano Ramos MD - 09/01/2022 1:07 PM EST Patient presents with: Right Hip - New, Pain Cristiano Ramos MD Department of Orthopaedics Orthopaedics [address] [facility] [address] Dept: [phone] Dept September 01, 2022 CHIEF COMPLAINT: New and Pain of the Right Hip HPI Patient has been having more trouble with his right hip. Typically enjoys walking and activities. He was an avid golfer. Groin pain can be up to 6 out of 10 during an 8 out of 10 at times. No pain with just sitting or resting. ASSESSMENT: M16.11 Primary osteoarthritis of right hip (primary encounter diagnosis) M25.551 Right hip pain PLAN: We reviewed different options and he would like to try an intra-articular injection which will havehim get at the local hospital under fluoroscopy guidance. FOLLOW UP INSTRUCTIONS: As needed Mr. Angie Dutton was advised as to contrast therapies and/or to take analgesics/anti-inflammatoriesas needed and all contraindications were reviewed. OBJECTIVE: Mr. Angie Dutton is a pleasant 81 year old in no apparent distress. Gen:There were no vitals taken for this visit. nl development, non obese, no deformities ENT: Normocephalic, normal hearing, moist mucosa CV: Pulses:DP/PT= 2+ and symmetric, capillary refill < 2 secs, no peripheral edema/varicosities Skin: no rash, bruising or lesions. Good turgor. Psych: cooperative and appropriate, alert and oriented x 3, good mood and affect. Musculoskeletal: Patient walks without antalgia. He has some anterior hip pain with flexion and internal rotation. His motion is about 100 degrees of flexion, internal of 20, external 25. Mild pain with resisted hip flexion. IMAGING: IMPRESSION: Moderately severe hip osteoarthritis. Health Plan Advisor: PSCB Transcribe Date/Time: Feb 03 2022 9:15A Dictated by : PATTIE ZHENG MD This examination was interpreted and the report reviewed and electronically signed by: PATTIE ZHENG MD on Feb 03 2022 9:17AM EST Results-Findings * * *Final Report* * * DATE OF EXAM: Feb 03 2022 8:33AM [id number] - XR HIP 3V PELV+ AP/LAT RT / PROCEDURE REASON: Right hip pain * * * * Physician Interpretation * * * * CLINICAL INDICATION: Right hip pain TECHNIQUE: AP radiograph of the pelvis and AP/frog-leg lateral radiographs of the right hip COMPARISON: Radiograph dated March 15, 2019 FINDINGS: No acute fracture or dislocation identified. Moderately severe bilateral hip osteoarthritis with moderately severe joint space narrowing, subchondral sclerosis, right greater than left subchondral cystic change, and right greater than left marginal osteophyte formation. Atherosclerotic calcification the vasculature. Supporting Subjective Information Below: Past Medical History: 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 Past Surgical History: PAST SURGICAL HISTORY Procedure Laterality Date ARTHROSCOPY KNEE DIAGNOSTIC W/WO SYNOVIAL BX SPX 2000 both COLONOSCOPY FLX DX W/COLLJ SPEC WHEN PFRMD 2001 Colonoscopy COLONOSCOPY FLX DX W/COLLJ SPEC WHEN PFRMD 07/13/2014 Colonoscopy COLONOSCOPY GEN ANES 11/26/2020 CORONARY ARTERY BYP W/VEIN & ARTERY GRAFT 3 VEIN 1981 CABG, three grafts EGD 11/26/2020 EGD 02/14/2021 EYE SURGERY HX FOOT SURGERY HX Left HEART SURGERY HX NEUROPLASTY &/TRANSPOS MEDIAN NRV CARPAL TUNNE 1998 Carpal tunnel decomp bilateral PAST SURGICAL HISTORY OF surgery on umbilicus due to bleeding PAST SURGICAL HISTORY OF 1961 umbical mass resection SIGMOIDOSCOPY FLX DX W/COLLJ SPEC BR/WA IF PFRMD 08/29/2004 Sigmoidoscopy TONSILLECTOMY HX Family History: FAMILY HISTORY Problem Relation Age of Onset Heart Mother Hypertension Mother Heart Father Heart Sister Heart Brother Stroke Sister Colon Cancer No Family History Social History: Social History Tobacco Use Smoking status: Former Years: 29.00 Types: Cigarettes Start date: 08/24/1955 Quit date: 08/24/1984 Years since quittin.0 Smokeless tobacco: Never Tobacco comments: QUIT at age 44, started at 15 Vaping Use Vaping Use: Never used Substance Use Topics Alcohol use: Yes Alcohol/week: 17.5 - 35.0 standard drinks Types: 7 - 14 Cans of Beer (12oz) per week Comment: 2 beers a day Drug use: No Medications: Current Outpatient Medications Medication Sig pantoprazole DR (PROTONIX) 20 mg tablet Take 2 tablets by mouth once daily. metoprolol succinate ER (TOPROL XL) 25 mg 24 hr tablet Take 1 tablet by mouth once daily. clopidogrel (PLAVIX) 75 mg tablet Take 1 tablet by mouth once daily. ezetimibe (ZETIA) 10 mg tablet Take 1 tablet by mouth once daily. isosorbide mononitrate ER (IMDUR) 30 mg 24 hr tablet Take 0.5 tablets by mouth once daily. gabapentin (NEURONTIN) 400 mg capsule Take 1 capsule by mouth twice daily for 180 days. cyclobenzaprine (FLEXERIL) 5 mg tablet Take 1 tablet by mouth at bedtime as needed for muscle spasm. fluticasone (FLONASE) 50 mcg/actuation nasal spray Use 2 Sprays in each nostril once daily. Rinse mouth after use. nitroglycerin sublingual (NITROQUICK) 0.4 mg SL tablet Dissolve 1 tablet under the tongue as directed. DISSOLVE ONE(1) TABLET UNDER THE TOUNGUE NEEDED FOR CHEST PAIN,EVERY 5 MIN X3 simvastatin (ZOCOR) 40 mg tablet Take 1 tablet by mouth daily at bedtime. traZODone (DESYREL) 50 mg tablet Take 1 tablet by mouth daily at bedtime. acetaminophen 650 mg CR tablet Take 1,300 mg by mouth twice daily. No current facility-administered medications for this visit. Allergies: Sulfa (Sulfonamide Antibiotics) ROS: General (negative for fatigue, malaise, weight loss/gain) HEENT (negative for headache, earache, recent vision changes, sinus pain, sore throat) Respiratory (no recent shortness of breath, hemoptysis) CV (negative for chest tightness, palpitations) Musculoskeletal (see HPI) Psych (no depression, anxiety) REFERRING PHYSICIAN: Consultation requested by Aidan Saini for an opinion regarding right hip pain. My final recommendations will be communicated back to the requesting physician by way of shared Medical record or letterto requesting physician via [place] mail. Lizeth Saini PA-C [id number] [facility] [id number] Cristiano Ramos MD documented in this [facility]The [facility] Miscellaneous Notes* Telephone Encounter - Jayne Aguirre RN - 09/01/2022 10:55 AM EST Last Office Visit: 08/04/2022 Future Office Visit: 09/26/2022 Requested Prescriptions Pending Prescriptions Disp Refills traZODone (DESYREL) 50 mg tablet 90 tablet 3 Sig: Take 1 tablet by mouth daily at bedtime. gabapentin (NEURONTIN) 400 mg capsule 180 capsule 1 Sig: Take 1 capsule by mouth twice daily for 180 days. Date of Last Labs: 08/04/2022 documented in this [facility]12-23-2022 Miscellaneous Notes* Telephone Encounter - Marychuy Bo Ma - 08/15/2022 1:59 PM EST Patient was made aware of the results. Patient verbalizes understanding. Marychuy Bo Ma * Telephone Encounter - Marychuy Bo Ma - 08/15/2022 1:59 PM EST ----- Message from Lizeth Saini PA-C sent at 08/15/2022 12:53 PM EST ----- Please let him know UC showed no growth. ThanksAidan PA-C documented in this [facility]12-23-2022 Miscellaneous Notes* Telephone Encounter - Yeny Perez MA - 08/15/2022 10:44 AM EST Patient notified of results, verbalizes understanding of instructions. Yeny Perez MA * Telephone Encounter - Yeny Perez MA - 08/15/2022 10:43 AM EST ----- Message from Lizeth Saini PA-C sent at 08/15/2022 6:23 AM EST ----- Urine shows he is over drinking fluids. This may be why he's urinating more frequently. Limit intake a little and report if change. Aidan Tejeda PA-C documented in this [facility]12-21-2022 History of Present illness Narrative* Paris Parker RN - 08/13/2022 9:01 AM EST INSIGHT CDM TELEPHONIC OUTREACH Provider Action/FYI: Spoke with patient who reports that he is feeling well except for achy muscles. He declined pain mgmt consult at [facility] appointment last week. States he is urinating more often but urine is clear yellow without burning with voiding. No edema or SOB. No sudden wt gain. Instructed on reporting to PCP with symptom of foul urine. He reports understanding. Pended refill for pantoprazole. Sent update to PCP. CHF CKD Appointments for Next 60 Days Date Time Provider Location Dept Phone 09/01/2022 1:30 PM CRISTIANO RAMOS [facility] [phone] 09/26/2022 2:40 PM Lizeth SAINI [facility] [phone] Contact made with patient: Yes Patient identified by name and . Discussed care with patient It s nice talking to you again. As a reminder, this is our bi-weekly check-in where I will be asking you questions about your health. This will only take a few minutes of your time. Is this a good time? Yes Symptoms What Chronic Disease(s) does the patient have: CHF and CKD Do you check your blood pressures at home? Yes, Enter readings: states generally 130s/70s Do you have new or worse shortness of breath with activity? No Do you have new or worsening trouble breathing while lying flat? No Do you have new or worsening swelling of legs, feet or ankles? No Do you feel like you are dehydrated for any reason, including not being able to eat or drink normally, or having less urine/much darker urine than normal for you? No Do you check your daily weight at home? Yes, Have you noticed a sudden gain in weight greater than three pounds in a day or three pounds in a week? No Are you having any other symptoms that your PCP needs to know about? No Symptom Escalation The patient required an escalation for symptom(s)? No Medications Do you have any questions about taking your medication or which medications you should be on? No Do you need any medication refills at this time, including any of the medications you might take only when needed? Yes Social We would like to make sure you have what you need so that your basic needs are met- including your personal safety, food, housing and medications? Would you like to speak with a social work horses or mules teamster to help give you support for any of these needs? No It can be normal to feel anxious or down during a time like this. Would you like to talk to a mental health professional about how you have been feeling? No Closing Thank you for taking the time to talk with me today. We want to work with you to ensure that we arekeeping your medical condition(s) well-controlled and to keep you healthy and out of the doctor's office or hospital. It s also not too late for me to sign you up for automated weekly questionnaires through [employer]. This is an easy way for us to stay connected each week. Are you interested? No, I understand. We can always sign you up in the future if you change your mind. Just as a reminder, will continue to call you every other week to check in on your health. Our calls should take 10-15 minutes or less. Remember, if you have concerns in between our calls, please call your PCP's office right away. Thank you. Enter next patient outreach date for two weeks on the same day of the week as today in the Track PtOutreach and End outreach. documented in [facility]12[facility] History of Present illness Narrative* [place] Perera-Omid - 08/04/2022 9:00 AM EST 81 year old male with c/o dizzy, falling but catches self, very tired over last 2 weeks, out of breath. Getting plenty of sleep. No change in bowels. No stomach pain or heart burn No change in bowels, no black or tarry stools. 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 Tavares 06/26/2021 echocardiogram [facility] Dr. Murray: LV size and LV SF WNL, EF 65%, apical false tendon noted. Stage II diastolic dysfunction. No regional wall motion abnormalities. RV size and RV SF WNL. LA moderate enlarged. RA WNL. Mild mitral annular calcification with extension to base of mitral valve leaflet. Trivial TVI, mild focal aortic valve calcification. Trivial SHAYLEE. Trivial PVI. RVSP 36 mmHg.Bubble study showed no [id number] shunt intra-atrial. 10/17/2019 cardiac perfusion exercise stress: WNL, no inducible ischemia, no evidence of scarred myocardium, LV size and LV SF WNL, EF 68%. RV size WNL 09/29/[address] Dominguez: mild ischemia in region of CX (3%) and RCA (5%). Normal LV and RVsize and function. LVEF stressed 62%, resting 57% [employer] Dr. Tavares Current meds: NTG 0.4 mg SL as needed chest pain Clopidogrel 75 mg daily Simvastatin 40 mg daily at bedtime Ezetimbe 10mg daily Metoprolol succinate ER 25 mg daily Use of NTG: No Chest pain, arm, jaw pain, neck, or upper back pain suggestive of angina: No. SOB: No Dyspnea with exertion: No orthopnea: No Cough : No racing or irregular heartbeats: No palpitations: No syncopal sx: no but has been dizzy. Headache: No Unexplainable fatigue Yes Leg swelling: No Nausea: No diaphoresis: No Heartburn: No Claudication: no, but pain in right thigh which affects gait. Out putting up decorations and lights, says he has been very active, exercising with walking. Smoking: No Following Low cholesterol, high fiber diet? Not specifically If on statin: muscle aches? No If on statin: GI sx or diarrhea? No Additional history: none. Lab review: Component Latest Ref Rng & Units 02/03/2022 06/03/2022 07/24/2022 Protein, Total 6.3 - 8.0 g/dL 6.9 7.0 6.7 Albumin 3.9 - 4.9 g/dL 4.5 4.5 4.3 Calcium 8.5 - 10.2 mg/dL 9.8 9.7 9.5 Bilirubin, Total 0.2 - 1.3 mg/dL 0.6 0.6 0.6 Alkaline Phosphatase 38 - 113 U/L 67 64 66 AST 14 - 40 U/L 24 19 19 ALT 10 - 54 U/L 14 10 12 Glucose 74 - 99 mg/dL 97 86 98 BUN 9 - 24 mg/dL 13 13 14 Creatinine 0.73 - 1.22 mg/dL 1.36 (H) 1.42 (H) 1.38 (H) Sodium 136 - 144 mmol/L 140 140 143 Potassium 3.7 - 5.1 mmol/L 4.2 4.4 4.5 Chloride 97 - 105 mmol/L 105 104 106 (H) CO2 22 - 30 mmol/L 23 24 26 Anion Gap 9 - 18 mmol/L 12 12 11 eGFR >=60 mL/min/1.73m 52 (L) 49 (L) 51 (L) Cholesterol, Total <200 mg/dL 147 147 Triglyceride <150 mg/dL 158 (H) 110 HDL Cholesterol >39 mg/dL 57 57 Non HDL Cholesterol <130 mg/dL 90 90 Fasting Time hrs 13 12 VLDL Cholesterol <30 mg/dL 32 (H) 22 TC:HDL Ratio <5.10 2.58 2.58 LDL Cholesterol <100 mg/dL 58 68 LDL:HDL Ratio <2.54 1.02 1.19 Impaired fasting glucose Hemoglobin A1C (%) Date Value 07/24/2022 5.6 02/03/2022 5.8 04/16/2021 5.7 01/30/2020 5.7 ) Stage 3a chronic kidney disease (hcc) As above Chronic itp (idiopathic thrombocytopenia) (hcc) Iron deficiency anemia, unspecified iron deficiency anemia type Component Latest Ref Rng & Units 02/03/2022 05/09/2022 06/03/2022 06/11/2022 WBC 3.70 - 11.00 k/uL 5.20 4.57 6.34 RBC 4.20 - 6.00 m/uL 4.96 4.84 4.86 Hemoglobin 13.0 - 17.0 g/dL 14.2 14.1 14.1 Hematocrit 39.0 - 51.0 % 45.2 44.3 43.1 MCV 80.0 - 100.0 fL 91.1 91.5 88.7 MCH 26.0 - 34.0 pg 28.6 29.1 29.0 MCHC 30.5 - 36.0 g/dL 31.4 31.8 32.7 RDW-CV 11.5 - 15.0 % 14.0 14.2 14.2 Platelet Count 150 - 400 k/uL 77 (L) 66 (L) 94 (L) 80 (L) MPV 9.0 - 12.7 fL 14.7 (H) 13.5 (H) 14.2 (H) Neut% % 58.6 62.2 Abs Neut (ANC) 1.45 - 7.50 k/uL 2.68 3.94 Lymph% % 33.3 29.3 Abs Lymph 1.00 - 4.00 k/uL 1.52 1.86 [place]% % 5.5 6.3 Abs [place] <0.87 k/uL 0.25 0.40 Eosin% % 1.5 1.1 Abs Eosin <0.46 k/uL 0.07 0.07 Baso% % 0.7 0.6 Abs Baso <0.11 k/uL 0.03 0.04 Immature Gran % % 0.4 0.5 IMMATURE GRANS (ABS) <0.10 k/uL <0.03 0.03 NRBC /100 WBC 0.0 0.0 Absolute nRBC <0.01 k/uL <0.01 <0.01 <0.01 DTYPE Auto Auto Gastroesophageal reflux disease, unspecified whether esophagitis present Current medication: Pantoprazole DR 20mg 2 tabs daily Current symptoms: doing well. Last Mg level if on PPI chronically: due. Heartburn is controlled: Yes. Dysphagia: No. Bloody or black stools: No. Bowel changes: No. Good stool every morning. No strain, black or tarry stool. Spinal stenosis, lumbar region, without neurogenic claudication Current medications: Gabapentin 400mg twice a day C/o aching and tingling in backs of calves. Takes Tylenol and sleeps Primary insomnia Current medications: Cyclobenzaprine 5mg daily HS Trazodone 50mg daiily HS Sleeping well, all through the night. HISTORIES FAMILY HISTORY Problem Relation Age of Onset Heart Mother Hypertension Mother Heart Father Heart Sister Heart Brother Stroke Sister Colon Cancer No Family History 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 PAST SURGICAL HISTORY Procedure Laterality Date ARTHROSCOPY KNEE DIAGNOSTIC W/WO SYNOVIAL BX SPX 2000 both COLONOSCOPY FLX DX W/COLLJ SPEC WHEN PFRMD 2001 Colonoscopy COLONOSCOPY FLX DX W/COLLJ SPEC WHEN PFRMD 07/13/2014 Colonoscopy COLONOSCOPY GEN ANES 11/26/2020 CORONARY ARTERY BYP W/VEIN & ARTERY GRAFT 3 VEIN 1981 CABG, three grafts EGD 11/26/2020 EGD 02/14/2021 EYE SURGERY HX FOOT SURGERY HX Left HEART SURGERY HX NEUROPLASTY &/TRANSPOS MEDIAN NRV CARPAL TUNNE 1998 Carpal tunnel decomp bilateral PAST SURGICAL HISTORY OF surgery on umbilicus due to bleeding PAST SURGICAL HISTORY OF 1961 umbical mass resection SIGMOIDOSCOPY FLX DX W/COLLJ SPEC BR/WA IF PFRMD 08/29/2004 Sigmoidoscopy TONSILLECTOMY HX Social History Tobacco Use Smoking status: Former Years: 29.00 Types: Cigarettes Start date: 08/24/1955 Quit date: 08/24/1984 Years since quittin.9 Smokeless tobacco: Never Tobacco comments: QUIT at age 44, started at 15 Vaping Use Vaping Use: Never used Substance Use Topics Alcohol use: Yes Alcohol/week: 17.5 - 35.0 standard drinks Types: 7 - 14 Cans of Beer (12oz) per week Comment: 2 beers a day Drug use: No ACTIVE PROBLEM LIST Spinal Stenosis, Lumbar Region, Without Neurogenic Claudication Thoracic Or Lumbosacral Neuritis Or Radiculitis, Unspecified Lumbosacral Spondylosis Without Myelopathy Essential Hypertension, Benign Mixed Hyperlipidemia Coronary Atherosclerosis Insomnia, Unspecified Esophageal Reflux Impaired Fasting Glucose Allergic Rhinitis, Cause Unspecified Anemia, Unspecified Thrombocytopenia, Unspecified (Hcc) Elevated Serum Creatinine Serum Calcium Elevated Atherosclerosis of [place] Coronary Artery of [place] Heart With Stable Angina Pectoris (Hcc) Tia (Transient Ischemic Attack) Chronic Right Hip Pain Pain of Right Calf Stage 3a Chronic Kidney Disease (Hcc) Iron Deficiency Anemia Chronic Itp (Idiopathic Thrombocytopenia) (Hcc) Stroke-Like Symptoms Right Groin Pain Right Hip Pain Current Outpatient Medications Medication Sig Dispense Refill metoprolol succinate ER (TOPROL XL) 25 mg 24 hr tablet Take 1 tablet by mouth once daily. 90 tablet3 clopidogrel (PLAVIX) 75 mg tablet Take 1 tablet by mouth once daily. 90 tablet 3 ezetimibe (ZETIA) 10 mg tablet Take 1 tablet by mouth once daily. 90 tablet 3 isosorbide mononitrate ER (IMDUR) 30 mg 24 hr tablet Take 0.5 tablets by mouth once daily. 45 tablet 3 gabapentin (NEURONTIN) 400 mg capsule Take 1 capsule by mouth twice daily for 180 days. 180 capsule1 cyclobenzaprine (FLEXERIL) 5 mg tablet Take 1 tablet by mouth at bedtime as needed for muscle spasm. 90 tablet 1 fluticasone (FLONASE) 50 mcg/actuation nasal spray Use 2 Sprays in each nostril once daily. Rinse mouth after use. 15.8 mL [address] (PROTONIX) 20 mg tablet Take 2 tablets by mouth once daily. 180 tablet 1 nitroglycerin sublingual (NITROQUICK) 0.4 mg SL tablet Dissolve 1 tablet under the tongue as directed. DISSOLVE ONE(1) TABLET UNDER THE TOUNGUE NEEDED FOR CHEST PAIN,EVERY 5 MIN X3 1 Bottle of 25 1 simvastatin (ZOCOR) 40 mg tablet Take 1 tablet by mouth daily at bedtime. 90 tablet 3 traZODone (DESYREL) 50 mg tablet Take 1 tablet by mouth daily at bedtime. 90 tablet 3 acetaminophen 650 mg CR tablet Take 1,300 mg by mouth twice daily. No current facility-administered medications for this visit. SHINGRIX VACCINE(2 of 3) due on 04/10/2011 DTAP,TDAP,TD(3 - Td or Tdap) due on 03/13/2021 ADVANCE DIRECTIVE DISCUSSION Never done DEPRESSION ASSESSMENT Never done EXAM: BP 144/76 Pulse 74 Resp 16 Wt 75.3 kg (166 lb) SpO2 97% BMI 26.00 kg/m Pleasant older man in no acute distress. Alert and oriented all spheres. Normal affect and cognition. Speech normal. No deficits to learning or comprehension. Initially somnolent, almost a little confused. Skin warm, dry, pink to lips and nailbeds. Normal turgor. Respirations regular and unlabored. HEENT: NCAT. No scleral icterus or conjunctival injection. TM's clear. Nose and oropharynx free from injection or lesion. Oral membranes moist and pink. No cervical lymph nodes. Thyroid non-tender, no masses, or enlargement. Carotids pulses 2+/4+ without bruits. No JVD with HOB at 30 degrees. Chest is normal shape. Lungs are clear to all [place] with good air exchange through out. HRRR without murmur or gallop. No lifts, heaves, or rubs. Extrem: no clubbing or cyanosis. Edema: none. Extremities are warm and pink with prompt capillary refill. DPP 2/4+, prompt capillary refill, warm pink toes. ASSESSMENT/PLAN: 1. 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) - ICD9: 414.01, 413.9, ICD10: I25.118 (primary diagnosis) Stable, no anginal sx 2. Essential hypertension, benign - ICD9: 401.1, ICD10: I10 - suboptimal control - Continue current medication(s) - Recommended regular aerobic exercise. - Recommend home blood pressure monitoring, to bring results in on next visit - Goal of BP <130/80 3. Mixed hyperlipidemia - ICD9: 272.2, ICD10: E78.2 - good control - Continue current medication. 4. Impaired fasting glucose - ICD9: 790.21, ICD10: R73.01 stable 5. Stage 3a chronic kidney disease (HCC) - ICD9: 585.3, ICD10: N18.31 - eGFR: Stable - Counseled on avoiding regular use of NSAIDs, adequate hydration, potential risk of IV dye 6. Chronic ITP (idiopathic thrombocytopenia) (HCC) - ICD9: 287.31, ICD10: D69.3 Stable to improving numbers 7. Iron deficiency anemia, unspecified iron deficiency anemia type - ICD9: 280.9, ICD10: D50.9 Stable, resolved 8. Gastroesophageal reflux disease, unspecified whether esophagitis present - ICD9: 530.81, ICD10: K21.9 Controlled, continue PPI 9. Spinal stenosis, lumbar region, without neurogenic claudication - ICD9: 724.02, ICD10: M48.061 Persistent sx. More pain than usual today. Doesn't want pain management consult. Will monitor. Wifesays he walked all over yesterday without issues and doesn't think he needs more tx. 10. Primary insomnia - ICD9: 307.42, ICD10: F51.01 Well managed- happy with sleep. Lizeth Saini PA-C documented in [facility] encounterThe [facility]12[facility] Miscellaneous Notes* Telephone Encounter - Suly Valentine RN - 07/25/2022 10:01 AM EST Patient contacted and given provider's message as copied below. Suly Valentine RN COPIED: Lizeth Saini PA-C 07/25/2022 6:36 AM EST Please advise everything looks great: cholesterol perfect, blood sugars perfect, stable but improved renal dysfunction. Thanks, Aidan Saini PA-C documented in this encounterThe [facility]11-23-2022 History of Present illness Narrative* Paris Parker RN - 07/16/2022 9:09 AM EST INSIGHT CDM TELEPHONIC OUTREACH Provider Action/FYI: Spoke with the patient who reports that he is feeling ok and has no needs at this time. He had two episodes of diarrhea earlier today but it has stopped. He is able to eat and drink well and has no symptoms of dehydration. Instructed to notify PCP office of any concerns that arise. He voiced understanding. Reviewed upcoming appointment with PCP. CHF CKD Appointments for Next 60 Days Date Time Provider Location Dept Phone 08/04/2022 9:00 AM Lizeth [facility]IN[facility] [phone] Contact made with patient: Yes Patient identified by name and . Discussed care with patient It s nice talking to you again. As a reminder, this is our bi-weekly check-in where I will be asking you questions about your health. This will only take a few minutes of your time. Is this a good time? Yes Symptoms What Chronic Disease(s) does the patient have: CHF and CKD Do you check your blood pressures at home? Yes, Enter readings: but not lately Do you have new or worse shortness of breath with activity? No Do you have new or worsening trouble breathing while lying flat? No Do you have new or worsening swelling of legs, feet or ankles? No Do you feel like you are dehydrated for any reason, including not being able to eat or drink normally, or having less urine/much darker urine than normal for you? No Do you check your daily weight at home? Yes, checks every 2-3 days Have you noticed a sudden gain in weight greater than three pounds in a day or three pounds in a week? No Are you having any other symptoms that your PCP needs to know about? No Symptom Escalation The patient required an escalation for symptom(s)? No Medications Do you have any questions about taking your medication or which medications you should be on? No Do you need any medication refills at this time, including any of the medications you might take only when needed? No Social We would like to make sure you have what you need so that your basic needs are met- including your personal safety, food, housing and medications? Would you like to speak with a social work horses or mules teamster to help give you support for any of these needs? No It can be normal to feel anxious or down during a time like this. Would you like to talk to a mental health professional about how you have been feeling? No Closing Thank you for taking the time to talk with me today. We want to work with you to ensure that we arekeeping your medical condition(s) well-controlled and to keep you healthy and out of the doctor's office or hospital. It s also not too late for me to sign you up for automated weekly questionnaires through [employer]. This is an easy way for us to stay connected each week. Are you interested? No, I understand. We can always sign you up in the future if you change your mind. Just as a reminder, will continue to call you every other week to check in on your health. Our calls should take 10-15 minutes or less. Remember, if you have concerns in between our calls, please call your PCP's office right away. Thank you. Enter next patient outreach date for two weeks on the same day of the week as today in the Track PtOutreach and End outreach. documented in this encounterThe [facility]10-26-[facility]22 History of Present illness Narrative* Paris Parker RN - 06/18/2022 9:12 AM EDT INSIGHT CDM TELEPHONIC OUTREACH Provider Action/FYI: 2nd TO attempt Spoke with the patient who reports that he is feeling well. His , who usually orders his refills is in the hospital. He looked at all of his med bottles and cristela had no refills from [facility] pharmacy. He should have some left but pended to ordering provider. He reports having refills on his other meds. Explained that when he should call the pharmacy at least a week before he needs refills on meds. Asked patient if he needs any assistance from our pharmacist but he said he does not, that he is able to take the medications. He got a new scale, and his wts have been stable. BPs stable. CHF CKD Appointments for Next 60 Days Date Time Provider Location Dept Phone 08/04/2022 9:00 AM Lizeth SAINI [facility] [phone] Contact made with patient: Yes Patient identified by name and . Discussed care with patient It s nice talking to you again. As a reminder, this is our bi-weekly check-in where I will be asking you questions about your health. This will only take a few minutes of your time. Is this a good time? Yes Symptoms What Chronic Disease(s) does the patient have: CHF and CKD Do you check your blood pressures at home? Yes, Enter readings: 120s-130s/70s/80s Do you have new or worse shortness of breath with activity? No Do you have new or worsening trouble breathing while lying flat? No Do you have new or worsening swelling of legs, feet or ankles? No Do you feel like you are dehydrated for any reason, including not being able to eat or drink normally, or having less urine/much darker urine than normal for you? No Do you check your daily weight at home? Yes, Have you noticed a sudden gain in weight greater than three pounds in a day or three pounds in a week? No Are you having any other symptoms that your PCP needs to know about? No Symptom Escalation The patient required an escalation for symptom(s)? No Medications Do you have any questions about taking your medication or which medications you should be on? No Do you need any medication refills at this time, including any of the medications you might take only when needed? No Social We would like to make sure you have what you need so that your basic needs are met- including your personal safety, food, housing and medications? Would you like to speak with a social work horses or mules teamster to help give you support for any of these needs? No It can be normal to feel anxious or down during a time like this. Would you like to talk to a mental health professional about how you have been feeling? No Closing Thank you for taking the time to talk with me today. We want to work with you to ensure that we arekeeping your medical condition(s) well-controlled and to keep you healthy and out of the doctor's office or hospital. It s also not too late for me to sign you up for automated weekly questionnaires through [employer]. This is an easy way for us to stay connected each week. Are you interested? No, I understand. We can always sign you up in the future if you change your mind. Just as a reminder, will continue to call you every other week to check in on your health. Our calls should take 10-15 minutes or less. Remember, if you have concerns in between our calls, please call your PCP's office right away. Thank you. Enter next patient outreach date for two weeks on the same day of the week as today in the Track PtOutreach and End outreach. documented in this encounterThe [facility]10-25-[facility] History of Present illness Narrative* Paris Parker RN - 06/17/2022 8:53 AM EDT INSIGHT CDM TELEPHONIC OUTREACH Provider Action/FYI: Left VM CHF CKD Appointments for Next 60 Days Date Time Provider Location Dept Phone 08/04/2022 9:00 AM Lizeth SAINI [facility] [phone] Contact made with patient: No - Left message Hello my name is Paris Parker RN your Associate Team Physician from the [facility] I am calling today for your bi-weekly check in. I am sorry I missed your call. I will reach out to you again tomorrow. (if the third call I will reach out to you again next week) Enter next patient outreach date for the following business day using the Track Pt Outreach. End outreach. documented in this encounterThe [facility]10-24-2022 Miscellaneous Notes* Telephone Encounter - Dedra Mejia - 06/16/2022 9:57 AM EDT Patient informed and verbalized understanding. No questions at this time. Dedra Mejia * Telephone Encounter - Dedra Mejia - 06/16/2022 9:55 AM EDT ----- Message from Lizeth Saini PA-C sent at 06/14/2022 11:08 AM EDT ----- Please let him know platelet count dropped slightly from 11 days ago from 94-80, still holding steady. Thanks, Aidan Saini PA-C documented in this encounterThe [facility]10-17-2022 Miscellaneous Notes* Telephone Encounter - Xander Orellana LPN - 06/09/2022 4:18 PM EDT Pt notified. He verbalized understanding. Xander Orellana LPN * Telephone Encounter - Xander Orellana LPN - 06/09/2022 4:14 PM EDT ----- Message from Lizeth Saini PA-C sent at 06/07/2022 11:35 AM EDT ----- Please advise patient CRP is low indicating low issues for inflammation, meaning towards this not being a significant risk with abdominal discomfort. Chemistries look good except his renal insufficiency is slightly worse but in about the same range,will continue to monitor. His blood count looks good, platelets have come up nicely from the last time with count at 94. Otherwise CBC within normal limits. Thanks, Aidan Saini PA-C documented in this encounterThe [facility]10-11-2022 Instructions* Patient Instructions* Lizeth Saini PA-C - 06/03/2022 2:38 PM EDT Diarrhea: adults What is diarrhea? Diarrhea is the sudden increase in the frequency and looseness of bowel movements (BMs). Mild diarrhea is the passage of a few loose or mushy BMs. Severe diarrhea is the passage of many watery BMs. The best indicator of the severity of the diarrhea is its frequency. The main complication of diarrhea is dehydration and loss of electrolytes from the loss of too muchbody fluid. Symptoms of dehydration are a dry mouth, the absence of tears, infrequent urination (for example, none in 12 hours), and a darker, concentrated urine. The main goal of diarrhea treatment is to prevent dehydration. What is the cause? Diarrhea is usually caused by a viral infection of the lining of the intestines (gastroenteritis). Sometimes it is caused by bacteria or parasites. Occasionally a food allergy or drinking too much fruit juice may cause diarrhea. If you have just one or two loose bowel movements, the cause is probably something unusual you ate. A diet of nothing but clear fluids for more than 2 days may cause green , watery bowel movements (called starvation stools). How long will it last? Diarrhea usually lasts several days to a week, regardless of the type of treatment. The main goal of treatment is to prevent dehydration. You need to drink enough fluids to replace the fluids lost inthe diarrhea. Don't expect a quick return to solid bowel movements. What should I eat? Increased fluids and dietary changes are the main treatment for diarrhea. Note: One loose bowel movement can mean nothing. Don't start dietary changes until you have had several loose bowel movements. Mild diarrhea (loose BMs) Follow a regular diet with a few simple changes: Eat more foods containing starch. Starchy foods are easily digested during diarrhea. Examples are cereal, breads, crackers, rice, mashed potatoes, and noodles. Drink more water. Avoid all fruit juices. Eat or drink less milk and milk products for a few days. Avoid beans or any other foods that cause loose bowel movements. Severe diarrhea: Fluids: Drink lots of fluids to prevent dehydration. Take water as the main fluid for the first 24 hours of watery diarrhea. Avoid milk and dairy products (except yogurt) as they may cause diarrhea to be worse. When inflammation occurs in the intestines, it may affect the levels of helpful bacteriawhich break down milk sugars. This may result in milk intolerance for a few days until the balance is restored. Avoid fruit juices, because they all make diarrhea worse. Electrolye solutions such as Gatorade or Powerade may help to replace electrolytes and ease muscle aching and cramping. Foods: You should continue to eat during episodes of diarrhea. The choice of food is important. Starchy foods are digested best. Examples of such foods are dried cereals, grains, bread, crackers, rice, noodles, mashed potatoes, carrots, applesauce and bananas. Pretzels or saltine crackers can help meet your need for sodium. On the second day of the diarrhea, if you may add some protein, soft-boiled eggs or yogurt are usually easily digested. How can I take care of myself? Common mistakes: KAYODE-Aid, soda pop, or water should not be used as the only food because they contain little or no salt. Use only the fluids suggested here. The most dangerous myth is that the intestine should be put to rest. Restricting fluids can cause dehydration. There is no effective, safe drug for diarrhea. Extra fluids and diet therapy work best. Prevention: Diarrhea is very contagious. Always wash your hands after changing diapers or using thetoilet. This is crucial for keeping everyone in the family from getting diarrhea. Vomiting with diarrhea: If you have vomited more than twice, follow the recommended treatment for vomiting instead of this treatment for diarrhea until your child has gone 8 hours without vomiting. When should I call my health care provider? Call IMMEDIATELY OR GO TO THE EMERGENCY ROOM if: There are signs of dehydration (no urine in more than 12 hours, very dry mouth, no tears). Any blood appears in the diarrhea. The diarrhea is severe (more than 8 BMs in the last 8 hours). The diarrhea is watery AND you vomit repeatedly. You are very weak. Call during office hours if: Mucus or pus appears in the BMs. A fever lasts more than 3 days. Mild diarrhea lasts more than 2 weeks. You have other concerns or questions. Medications: generally medications are not helpful or necessary. Even with infectious diarrhea or dysentery, the treatment surrounds fluid replacement and time. If you are experiencing excessive cramping and discomfort, Immodium AD over the counter may help. documented in this encounterThe [facility]10-[facility]22 History of Present illness Narrative* Lizeth Saini PA-C - 06/03/2022 2:00 PM EDT 81 year old male with c/o diarrhea x 1 month, for awhile was once a day, then 3- 4 times a day and recently back to normal. Last diarrhea was 3 days ago. Runny to gooey to normal. Was brownish to light brown. No vomiting. A little heart burn. Weight stable. Appetite normal. No lightheadedness or dizziness. Still active: cutting grass, pulling weeds, house repairs. Walked 1.5 [address] hill and down at [employer] Thursday. States had flu shot and Covid 19 booster before diarrhea started. HISTORIES FAMILY HISTORY Problem Relation Age of Onset Heart Mother Hypertension Mother Heart Father Heart Sister Heart Brother Stroke Sister Colon Cancer No Family History 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 PAST SURGICAL HISTORY Procedure Laterality Date ARTHROSCOPY KNEE DIAGNOSTIC W/WO SYNOVIAL BX SPX 2000 both COLONOSCOPY FLX DX W/COLLJ SPEC WHEN PFRMD 2001 Colonoscopy COLONOSCOPY FLX DX W/COLLJ SPEC WHEN PFRMD 07/13/2014 Colonoscopy COLONOSCOPY GEN ANES 11/26/2020 CORONARY ARTERY BYP W/VEIN & ARTERY GRAFT 3 VEIN 1981 CABG, three grafts EGD 11/26/2020 EGD 02/14/2021 EYE SURGERY HX FOOT SURGERY HX Left HEART SURGERY HX NEUROPLASTY &/TRANSPOS MEDIAN NRV CARPAL TUNNE 1998 Carpal tunnel decomp bilateral PAST SURGICAL HISTORY OF surgery on umbilicus due to bleeding PAST SURGICAL HISTORY OF 1961 umbical mass resection SIGMOIDOSCOPY FLX DX W/COLLJ SPEC BR/WA IF PFRMD 08/29/2004 Sigmoidoscopy TONSILLECTOMY HX Social History Tobacco Use Smoking status: Former Years: 29.00 Types: Cigarettes Start date: 08/24/1955 Quit date: 08/24/1984 Years since quittin.8 Smokeless tobacco: Never Tobacco comments: QUIT at age 44, started at 15 Vaping Use Vaping Use: Never used Substance Use Topics Alcohol use: Yes Alcohol/week: 17.5 - 35.0 standard drinks Types: 7 - 14 Cans of Beer (12oz) per week Comment: 2 beers a day Drug use: No ACTIVE PROBLEM LIST Spinal Stenosis, Lumbar Region, Without Neurogenic Claudication Thoracic Or Lumbosacral Neuritis Or Radiculitis, Unspecified Lumbosacral Spondylosis Without Myelopathy Essential Hypertension, Benign Mixed Hyperlipidemia Coronary Atherosclerosis Insomnia, Unspecified Esophageal Reflux Impaired Fasting Glucose Allergic Rhinitis, Cause Unspecified Anemia, Unspecified Thrombocytopenia, Unspecified (Hcc) Elevated Serum Creatinine Serum Calcium Elevated Atherosclerosis of [place] Coronary Artery of [place] Heart With Stable Angina Pectoris (Hcc) Tia (Transient Ischemic Attack) Chronic Right Hip Pain Pain of Right Calf Stage 3a Chronic Kidney Disease (Hcc) Iron Deficiency Anemia Chronic Itp (Idiopathic Thrombocytopenia) (Hcc) Stroke-Like Symptoms Right Groin Pain Right Hip Pain Current Outpatient Medications Medication Sig Dispense Refill isosorbide mononitrate ER (IMDUR) 30 mg 24 hr tablet Take 0.5 tablets by mouth once daily. 45 tablet 3 gabapentin (NEURONTIN) 400 mg capsule Take 1 capsule by mouth twice daily for 180 days. 180 capsule1 cyclobenzaprine (FLEXERIL) 5 mg tablet Take 1 tablet by mouth at bedtime as needed for muscle spasm. 90 tablet 1 fluticasone (FLONASE) 50 mcg/actuation nasal spray Use 2 Sprays in each nostril once daily. Rinse mouth after use. 15.[address] (PROTONIX) 20 mg tablet Take 2 tablets by mouth once daily. 180 tablet 1 nitroglycerin sublingual (NITROQUICK) 0.4 mg SL tablet Dissolve 1 tablet under the tongue as directed. DISSOLVE ONE(1) TABLET UNDER THE TOUNGUE NEEDED FOR CHEST PAIN,EVERY 5 MIN X3 1 Bottle of 25 1 clopidogrel (PLAVIX) 75 mg tablet Take 1 tablet by mouth once daily. 90 tablet 3 simvastatin (ZOCOR) 40 mg tablet Take 1 tablet by mouth daily at bedtime. 90 tablet 3 metoprolol succinate ER (TOPROL XL) 25 mg 24 hr tablet Take 1 tablet by mouth once daily. 90 tablet1 ezetimibe (ZETIA) 10 mg tablet Take 1 tablet by mouth once daily. 30 tablet 12 traZODone (DESYREL) 50 mg tablet Take 1 tablet by mouth daily at bedtime. 90 tablet 3 acetaminophen 650 mg CR tablet Take 1,300 mg by mouth twice daily. No current facility-administered medications for this visit. SHINGRIX VACCINE(2 of 3) due on 04/10/2011 DTAP,TDAP,TD(3 - Td or Tdap) due on 03/13/2021 ADVANCE DIRECTIVE DISCUSSION Never done DEPRESSION ASSESSMENT Never done EXAM: BP 130/70 Pulse 86 Temp 37.3 C (99.2 F) (Tympanic) Resp 12 Wt 73 kg (161 lb) SpO2 98% BMI 25.22 kg/m Pleasant well appearing and boisterous older man in no acute distress. Alert and oriented all spheres. Normal affect and cognition. Speech normal. No deficits to learning or comprehension. Skin warm, dry, pink to lips and nailbeds. Normal turgor. Respirations regular and unlabored. Chest is normal shape. Lungs are clear to all [place] with good air exchange through out. HRRR without murmur or gallop. No lifts, heaves, or rubs. Abdomen: active bowel sounds throughout, soft, nontender, no masses or organomegaly. No CVAT. Extrem: no clubbing or cyanosis. Edema: none. Extremities are warm and pink with prompt capillary refill. ASSESSMENT/PLAN: 1. Chronic ITP (idiopathic thrombocytopenia) (HCC) - ICD9: 287.31, ICD10: D69.3 (primary diagnosis) Continues downward trend. No bleeding stigmata. See Dr. Jenkins next week. Possible autoimmune thrombocytopenia. - CBC + DIFF 2. Diarrhea, unspecified type - ICD9: 787.91, ICD10: R19.7 No hallmarks of bleeding. Could have been r/t immune response to vaccines or illness, improving in last 3- 4 days Hx GIB in past is concerning- recheck lab. If sx persist - UA DIP, URINE (POC) - CBC + DIFF - C-REACTIVE PROTEIN (CRP) - COMP METABOLIC PANEL Lizeth Saini PA-C documented in this encounterThe [facility]10-04-2022 Miscellaneous Notes* Telephone Encounter - GODWIN Tapia - 05/27/2022 9:14 AM EDT PAMELA 05/02/22 Appointment scheduled 08/04/22 Patient states that last time he picked up his Gabapentin, the medication was outdated by 2 years.Patient threw medication away. Please advise. Thank you. GODWIN Tapia * Telephone Encounter - Madison Ayala - 05/27/2022 8:25 AM EDT Patient has been identified by name and date of : Yes Requested Prescriptions Pending Prescriptions Disp Refills ezetimibe (ZETIA) 10 mg tablet 30 tablet 12 Sig: Take 1 tablet by mouth once daily. isosorbide mononitrate ER (IMDUR) 30 mg 24 hr tablet 45 tablet 3 Sig: Take 0.5 tablets by mouth once daily. clopidogrel (PLAVIX) 75 mg tablet 90 tablet 3 Sig: Take 1 tablet by mouth once daily. gabapentin (NEURONTIN) 400 mg capsule 180 capsule 1 Sig: Take 1 capsule by mouth twice daily for 180 days. Patient states that last time he picked up his Gabapentin, the medication was outdated by 2 years. Patient threw medication away. RX INSTRUCTIONS: Patient aware RX will be sent to pharmacy. No need to notify patient. Madison Ayala documented in this encounterThe [facility]09-27-2022 History of Present illness Narrative* Paris Parker RN - 05/20/2022 9:07 AM EDT INSIGHT CDM TELEPHONIC OUTREACH Provider Action/FYI: Patient reports that he is feeling well and has no needs at this time. He has intermittent episodes of diarrhea. It is not an all day event but 1-2 times. He thinks it might be the [place] food he likes to eat. Instructed to call his PCP if he ever had several episodes or if it becomes a frequent occurrence. He voiced understanding. CHF CKD Contact made with patient: Yes Patient identified by name and . Discussed care with patient It s nice talking to you again. As a reminder, this is our bi-weekly check-in where I will be asking you questions about your health. This will only take a few minutes of your time. Is this a good time? Yes Symptoms What Chronic Disease(s) does the patient have: CHF and CKD Do you check your blood pressures at home? Yes, Enter readings: 116/70 Do you have new or worse shortness of breath with activity? No Do you have new or worsening trouble breathing while lying flat? No Do you have new or worsening swelling of legs, feet or ankles? No Do you feel like you are dehydrated for any reason, including not being able to eat or drink normally, or having less urine/much darker urine than normal for you? No Do you check your daily weight at home? Yes, Have you noticed a sudden gain in weight greater than three pounds in a day or three pounds in a week? No Are you having any other symptoms that your PCP needs to know about? No Symptom Escalation The patient required an escalation for symptom(s)? No Medications Do you have any questions about taking your medication or which medications you should be on? No Do you need any medication refills at this time, including any of the medications you might take only when needed? No Social We would like to make sure you have what you need so that your basic needs are met- including your personal safety, food, housing and medications? Would you like to speak with a social work horses or mules teamster to help give you support for any of these needs? No It can be normal to feel anxious or down during a time like this. Would you like to talk to a mental health professional about how you have been feeling? No Closing Thank you for taking the time to talk with me today. We want to work with you to ensure that we arekeeping your medical condition(s) well-controlled and to keep you healthy and out of the doctor's office or hospital. It s also not too late for me to sign you up for automated weekly questionnaires through [employer]. This is an easy way for us to stay connected each week. Are you interested? No, I understand. We can always sign you up in the future if you change your mind. Just as a reminder, will continue to call you every other week to check in on your health. Our calls should take 10-15 minutes or less. Remember, if you have concerns in between our calls, please call your PCP's office right away. Thank you. Enter next patient outreach date for two weeks on the same day of the week as today in the Track PtOutreach and End outreach. documented in [facility] Miscellaneous Notes* Telephone Encounter - Xander Orellana LPN - 05/19/2022 10:07 AM EDT Pt notified. He verbalized understanding. Xander Orellana LPN * Telephone Encounter - Cristy Moe Ma - 05/15/2022 8:46 AM EDT Message left for pt to call back for results. Cristy Meo MA * Telephone Encounter - Marychuy Bo Ma - 05/12/2022 10:21 AM EDT Left message for patient to return call. Marychuy Bo Ma * Telephone Encounter - Lizeth Saini PA-C - 05/12/2022 6:12 AM EDT Please advise platelet count a little lower at 64,000. Not a critical level but want to follow carefully. Recheck in 1 month, non-fasting bloodwork. Telephone on 05/12/22 PLTCT (PLATELET COUNT) Thanks, Aidan Saini PA-C documented in this encounterThe [facility]09-[facility] History of Present illness Narrative* M Gayle Saini PA-C - 05/02/2022 8:40 AM EDT 81 year old male with c/o fell twice this week, slick steps, bumped down the steps-bruised right elbow Second episode putting on 's pajama pants, fell backward on buttock. Small abrasion left knee. 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 pectoris (hcc) (primary encounter diagnosis) Essential hypertension, benign Mixed hyperlipidemia Cardiovascular interval hx: [facility] Dr. Tavares 06/26/2021 echocardiogram [facility] Dr. Murray: LV size and LV SF WNL, EF 65%, apical false tendon noted. Stage II diastolic dysfunction. No regional wall motion abnormalities. RV size and RV SF WNL. LA moderate enlarged. RA WNL. Mild mitral annular calcification with extension to base of mitral valve leaflet. Trivial TVI, mild focal aortic valve calcification. Trivial SHAYLEE. Trivial PVI. RVSP 36 mmHg.Bubble study showed no [id number] shunt intra-atrial. 10/17/2019 cardiac perfusion exercise stress: WNL, no inducible ischemia, no evidence of scarred myocardium, LV size and LV SF WNL, EF 68%. RV size WNL 09/29/[address] Dominguez: mild ischemia in region of CX (3%) and RCA (5%). Normal LV and RVsize and function. LVEF stressed 62%, resting 57% [facility] Dr. Tavares Current meds: NTG 0.4 mg SL as needed chest pain Clopidogrel 75 mg daily Simvastatin 40 mg daily at bedtime Metoprolol succinate ER 25 mg daily Use of NTG: No Chest pain, arm, jaw pain, neck, or upper back pain suggestive of angina: No. SOB: No Dyspnea with exertion: No orthopnea: No racing or irregular heartbeats: No palpitations: No syncopal sx: No Unexplainable fatigue No Leg swelling: No Nausea: No diaphoresis: No Heartburn: No Claudication: No Smoking: No Following Low cholesterol, high fiber diet? Yes If on statin: muscle aches? No If on statin: GI sx or diarrhea? No Additional history none. Cholesterol, Total (mg/dL) Date Value 02/03/2022 147 08/08/2021 195 01/25/2021 194 HDL Cholesterol (mg/dL) Date Value 02/03/2022 57 08/08/2021 60 01/25/2021 56 LDL Cholesterol (mg/dL) Date Value 02/03/2022 58 08/08/2021 110 01/25/2021 109 Triglyceride (mg/dL) Date Value 02/03/2022 158 08/08/2021 125 01/25/2021 145 Impaired fasting glucose Hemoglobin A1C (%) Date Value 02/03/2022 5.8 04/16/2021 5.7 01/30/2020 5.7 ) Stage 3a chronic kidney disease (hcc) BMP Latest Ref Rng & Units 02/03/2022 08/31/2021 10/24/2020 GLUCOSE 74 - 99 mg/dL 97 95 94 BUN 9 - 24 mg/dL 13 12 12 CREATININE 0.73 - 1.22 mg/dL 1.36(H) 1.26(H) 1.37(H) SODIUM 136 - 144 mmol/L 140 142 142 POTASSIUM 3.7 - 5.1 mmol/L 4.2 4.9 4.8 CHLORIDE 97 - 105 mmol/L 105 106(H) 107(H) CO2 22 - 30 mmol/L 23 23 27 ANION GAP 9 - 18 mmol/L 12 13 8(L) CALCIUM, TOTAL 8.5 - 10.2 mg/dL 9.8 9.6 9.6 eGFR >=60 mL/min/1.73m 52(L) 55 50 EGFR- - - >60 >60 EGFR-ALL OTHER RACES . - 55 50 Iron deficiency anemia, unspecified iron deficiency anemia type Thrombocytopenia, unspecified ([facility]) 07/15/[address] Jenkins: not concerned: to return if PLT < 50K CBC Latest Ref Rng & Units 07/15/2021 08/31/2021 02/03/2022 WBC 3.70 - 11.00 k/uL 4.47 5.45 5.20 RBC 4.20 - 6.00 m/uL 4.54 5.08 4.96 HEMOGLOBIN 13.0 - 17.0 g/dL 13.5 14.8 14.2 HEMOGLOBIN, DINORAH 13.0 - 17.0 g/dL - - - HEMATOCRIT 39.0 - 51.0 % 40.0 46.9 45.2 MCV 80.0 - 100.0 fL 88.1 92.3 91.1 MCV, DINORAH 80.0 - 100.0 fL - - - MCH 26.0 - 34.0 pg 29.7 29.1 28.6 MCH, DINORAH 26.0 - 34.0 pg - - - MCHC 30.5 - 36.0 g/dL 33.8 31.6 31.4 MCHC, DINORAH 30.5 - 36.0 g/dL - - - RDW, DINORAH 11.5 - 15.0 % - - - RDW-CV 11.5 - 15.0 % 14.3 13.8 14.0 PLATELETS 150 - 400 k/uL 88(L) 83(L) 77(L) MPV 9.0 - 12.7 fL 12.5 13.0(H) 14.7(H) MPV, DINORAH 9.0 - 12.7 fL - - - NEUT%, DINORAH 42 - 75 % - - - MONO%, DINORAH 2 - 9 % - - - EOS%, DINORAH 0.0 - 6.0 % - - - BASO% % 0.9 0.6 - BASO%, DINORAH 0 - 2 % - - - ABS NEUT (ANC) 1.45 - 7.50 k/uL 2.66 3.71 - ABS NEUT, DINORAH 2 - 8 k/uL - - - ABS LYMP, DINORAH 1 - 6 k/uL - - - ABS LYMPH 1.00 - 4.00 k/uL 1.32 1.37 - ABS MONO <0.87 k/uL 0.29 0.29 - ABS MONO, DINORAH 0 - 1 k/uL - - - ABS EOS, DINORAH 0.0 - 0.2 k/uL - - - ABS EOSIN <0.46 k/uL 0.15 0.03 - ABS BASO <0.11 k/uL 0.04 0.03 - ABS BASO, DINORAH 0 - 1 k/uL - - - DIFF TYPE - Auto Diff Auto Diff - Primary insomnia Gastroesophageal reflux disease, unspecified whether esophagitis present Current medication: Pantoprazole 20mg daily HS Current symptoms: none. Last Mg level if on PPI chronically: 10/24/2020 2.2. Heartburn is controlled: Yes. Dysphagia: No. Bloody or black stools: No. Bowel changes: no, every once in awhile diarrhea. . Spinal stenosis, lumbar region, without neurogenic claudication Lumbosacral spondylosis without myelopathy Chronic right hip pain Pain of right calf Current medications: Cyclobenzaprine 5 mg at bedtime Gabapentin 400 mg twice daily Tylenol arthritis 650 mg;:1300 mg twice daily Went to PT and did help significantly: using rubber band to strenght and stretch- helping a lot. Going to resume [facility] HISTORIES FAMILY HISTORY Problem Relation Age of Onset Heart Mother Hypertension Mother Heart Father Heart Sister Heart Brother Stroke Sister Colon Cancer No Family History 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 PAST SURGICAL HISTORY Procedure Laterality Date ARTHROSCOPY KNEE DIAGNOSTIC W/WO SYNOVIAL BX SPX 2000 both COLONOSCOPY FLX DX W/COLLJ SPEC WHEN PFRMD 2001 Colonoscopy COLONOSCOPY FLX DX W/COLLJ SPEC WHEN PFRMD 07/13/2014 Colonoscopy COLONOSCOPY GEN ANES 11/26/2020 CORONARY ARTERY BYP W/VEIN & ARTERY GRAFT 3 VEIN 1981 CABG, three grafts EGD 11/26/2020 EGD 02/14/2021 EYE SURGERY HX FOOT SURGERY HX Left HEART SURGERY HX NEUROPLASTY &/TRANSPOS MEDIAN NRV CARPAL TUNNE 1998 Carpal tunnel decomp bilateral PAST SURGICAL HISTORY OF surgery on umbilicus due to bleeding PAST SURGICAL HISTORY OF 1961 umbical mass resection SIGMOIDOSCOPY FLX DX W/COLLJ SPEC BR/WA IF PFRMD 08/29/2004 Sigmoidoscopy TONSILLECTOMY HX Social History Tobacco Use Smoking status: Former Years: 29.00 Types: Cigarettes Start date: 08/24/1955 Quit date: 08/24/1984 Years since quittin.7 Smokeless tobacco: Never Tobacco comments: QUIT at age 44, started at 15 Vaping Use Vaping Use: Never used Substance Use Topics Alcohol use: Yes Alcohol/week: 17.5 - 35.0 standard drinks Types: 7 - 14 Cans of Beer (12oz) per week Comment: 2 beers a day Drug use: No ACTIVE PROBLEM LIST Spinal Stenosis, Lumbar Region, Without Neurogenic Claudication Thoracic Or Lumbosacral Neuritis Or Radiculitis, Unspecified Lumbosacral Spondylosis Without Myelopathy Essential Hypertension, Benign Mixed Hyperlipidemia Coronary Atherosclerosis Insomnia, Unspecified Esophageal Reflux Impaired Fasting Glucose Allergic Rhinitis, Cause Unspecified Anemia, Unspecified Thrombocytopenia, Unspecified (Hcc) Elevated Serum Creatinine Serum Calcium Elevated Atherosclerosis of [place] Coronary Artery of [place] Heart With Stable Angina Pectoris ([facility]) Tia (Transient Ischemic Attack) Chronic Right Hip Pain Pain of Right Calf Stage 3a Chronic Kidney Disease ([facility]) Iron Deficiency Anemia Chronic Itp (Idiopathic Thrombocytopenia) ([facility]) Stroke-Like Symptoms Right Groin Pain Right Hip Pain Current Outpatient Medications Medication Sig Dispense Refill cyclobenzaprine (FLEXERIL) 5 mg tablet Take 1 tablet by mouth at bedtime as needed for muscle spasm. 90 tablet 1 fluticasone (FLONASE) 50 mcg/actuation nasal spray Use 2 Sprays in each nostril once daily. Rinse mouth after use. 15.[address] (PROTONIX) 20 mg tablet Take 2 tablets by mouth once daily. 180 tablet 1 nitroglycerin sublingual (NITROQUICK) 0.4 mg SL tablet Dissolve 1 tablet under the tongue as directed. DISSOLVE ONE(1) TABLET UNDER THE TOUNGUE NEEDED FOR CHEST PAIN,EVERY 5 MIN X3 1 Bottle of 25 1 gabapentin (NEURONTIN) 400 mg capsule Take 1 capsule by mouth twice daily for 180 days. 180 capsule1 clopidogrel (PLAVIX) 75 mg tablet Take 1 tablet by mouth once daily. 90 tablet 3 simvastatin (ZOCOR) 40 mg tablet Take 1 tablet by mouth daily at bedtime. 90 tablet 3 metoprolol succinate ER (TOPROL XL) 25 mg 24 hr tablet Take 1 tablet by mouth once daily. 90 tablet1 ezetimibe (ZETIA) 10 mg tablet Take 1 tablet by mouth once daily. 30 tablet 12 isosorbide mononitrate ER (IMDUR) 30 mg 24 hr tablet Take 0.5 tablets by mouth once daily. 45 tablet 3 traZODone (DESYREL) 50 mg tablet Take 1 tablet by mouth daily at bedtime. 90 tablet 3 acetaminophen (TYLENOL ARTHRITIS PAIN) 650 mg CR tablet Take 1,300 mg by mouth twice daily. No current facility-administered medications for this visit. SHINGRIX VACCINE(2 of 3) due on 04/10/2011 DTAP,TDAP,TD(3 - Td or Tdap) due on 03/13/2021 ADVANCE DIRECTIVE DISCUSSION Never done COVID-19 VACCINE(4 - Booster for Pfizer series) due on 12/01/2021 INFLUENZA(1) due on 04/24/2022 EXAM: BP 118/76 Pulse 82 Resp 18 Wt 72.2 kg (159 lb 1.9 oz) SpO2 99% BMI 24.92 kg/m Pleasant adult man in no acute distress. Alert and oriented all spheres. Normal affect and cognition. Speech normal. No deficits to learning or comprehension. Skin warm, dry, pink to lips and nailbeds. Normal turgor. Respirations regular and unlabored. HEENT: NCAT. No scleral icterus or conjunctival injection. TM's clear. Nose and oropharynx free from injection or lesion. Oral membranes moist and pink. No cervical lymph nodes. Thyroid non-tender, no masses, or enlargement. Carotids pulses 2+/4+ without bruits. No JVD with HOB at 30 degrees. Chest is normal shape. Lungs are clear to all oc[place]o with good air exchange through out. HRRR without murmur or gallop. No lifts, heaves, or rubs. Extrem: no clubbing or cyanosis. Edema: none. Extremities are warm and pink with prompt capillary refill. ASSESSMENT/PLAN: 1. 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) - ICD9: 414.01, 413.9, ICD10: I25.118 (primary diagnosis) Stable, asymptomatic. 2. Essential hypertension, benign - ICD9: 401.1, ICD10: I10 - good control - Continue current medication(s) - Recommended regular aerobic exercise. - Recommend home blood pressure monitoring, to bring results in on next visit - Goal of BP <130/80 3. Mixed hyperlipidemia - ICD9: 272.2, ICD10: E78.2 - good control - Continue current medication. 4. Impaired fasting glucose - ICD9: 790.21, ICD10: R73.01 Stable, no changes 5. Stage 3a chronic kidney disease (HCC) - ICD9: 585.3, ICD10: N18.31 stable 6. Chronic right hip pain - ICD9: 719.45, 338.29, ICD10: M25.551, G89.29 Improved with PT and home exercise 7. Pain of right calf - ICD9: 729.5, ICD10: M79.661 stable 8. Iron deficiency anemia, unspecified iron deficiency anemia type - ICD9: 280.9, ICD10: D50.9 resolved 9. Thrombocytopenia, unspecified (HCC) - ICD9: 287.5, ICD10: D69.6 Stable in controlled range 10. Primary insomnia - ICD9: 307.42, ICD10: F51.01 Stable with medication 11. Gastroesophageal reflux disease, unspecified whether esophagitis present - ICD9: 530.81, ICD10:K21.9 - continue pantoprazole, asymptomatic 12. Spinal stenosis, lumbar region, without neurogenic claudication - ICD9: 724.02, ICD10: M48.061 13. Lumbosacral spondylosis without myelopathy - ICD9: 721.3, ICD10: M47.817 No current issues. F/u 3 months per choice Lizeth Saini PA-C documented in this encounterThe [facility] History of Present illness Narrative* Paris Parker RN - 04/22/2022 9:29 AM EDT INSIGHT CD TELEPHONIC OUTREACH Provider Action/FYI: 2nd TO attempt Left Vm with reminder about upcoming appointment with PCP. CHF CKD Appointments for Next 60 Days Date Time Provider Location Dept Phone 05/02/2022 8:40 AM Lizeth SAINI [facility] [phone] Contact made with patient: No - Left message Hello my name is Paris Parker RN your Associate Team Physician from the [facility] I am calling today for your bi-weekly check in. I am sorry I missed your call. I will reach out to you again tomorrow. (if the third call I will reach out to you again next week) Enter next patient outreach date for the following business day using the Track Pt Outreach. End outreach. documented in this encounterThe [facility]08-29-[facility] History of Present illness Narrative* Paris Parker RN - 04/21/2022 9:01 AM EDT INSIGHT CDM TELEPHONIC OUTREACH Provider Action/FYI: Left VM CHF CKD Appointments for Next 60 Days Date Time Provider Location Dept Phone 05/02/2022 8:40 AM Lizeth SAINI [facility] [phone] Contact made with patient: No - Left message Wilfredo my name is Paris Parker RN your Associate Team Physician from the [facility] I am calling today for your bi-weekly check in. I am sorry I missed your call. I will reach out to you again tomorrow. (if the third call I will reach out to you again next week) Enter next patient outreach date for the following business day using the Track Pt Outreach. End outreach. documented in this encounterThe [facility]08-[facility] History of Present illness Narrative* Paris Parker RN - 03/24/2022 9:05 AM EDT [facility] CDM Enrollment Provider Action/FYI: 2nd insight enrollment attempt. No access to [email or web address]. Patient gives permission to speak with his . Explained insight monitoring to her and enrolled patient to receive telephonic outreaches. Explained the importance of notifying PCP of any concerns. Appointments for Next 60 Days Date Time Provider Location Dept Phone 04/07/2022 9:30 AM [facility] [email or web address] [phone] 04/15/2022 9:30 AM [facility] [phone] 05/02/2022 8:40 AM Lizeth SAINI [facility] [phone] Patient referred by: [facility] Carol Contact made with patient: Yes - Patient identified by name and . Discussed care with spouse Wilfredo this is Paris Parker RN and I am calling from Lizeth Saini PA-C office at the [facility]. I am a RN Associate Team Physician with our [facility] Chronic Disease Management program. Lizeth Saini PA-C wanted me to reach out to help you manage your health at home. Our goal is to keep you well at home. We want to help you manage your chronic disease by providing a safety net of resources around you, getting you the care you need in a timely manner, and hopefully keep you out of the ED and hospital. I will send you a few questions once a week through your [employer] account. It will automatically show up for you to complete. There are simple questions that will help us identify if you have any concerns or symptoms and I will call you to help get what you need. We will be able to connect you, review your symptoms, do an on demand visit, or communicate with Lizeth Saini PA-C if needed. I am going to sign you up for the program now. Enrollment Questions: Let's get you enrolled in the program. Yes, Do you have regular access to a computer/smartphone? No, Are you offering patient a biweekly phone call? yes/no: Yes. Goal Setting: I would like to take some time today to discuss your personal health goals. Yes, patient has goals. Capture the goal the patient wants to accomplish: to be healthy enough to keep golfing.. Does the goal align with programs offered at the [facility]? No Patient accepts telephonic outreach Thank you for your time today. I am excited to work together in managing your health! I will check back within in two weeks to see how things are going. If questions or concerns arise between phone calls, please reach out to your PCP s office. (Place in active status for [facility]ight and place name in care team and update next patient outreach data to next business day two weeks from today s date) Most people know what to do to become healthier, yet struggle to put it into action on their own.Itcan be hard to maintain a healthy lifestyle, especially when life is so stressful. Can we connect you with a [facility] Health Collection Specialist to find a program that could help you meet your goals? No Closing: Patient accepts telephonic outreach Thank you for your time today. I am excited to work together inmanaging your health! I will check back within in two weeks to see how things are going. If questions or concerns arise between phone calls, please reach out to your PCP s office. (Place in active status for [facility] and place name in care team and update next patient outreach data to next business d ay two weeks from today s date) INSIGHT CD TELEPHONIC OUTREACH Contact made with patient: Yes Patient identified by name and . Discussed care with spouse It s nice talking to you again. As a reminder, this is our bi-weekly check-in where I will be asking you questions about your health. This will only take a few minutes of your time. Is this a good time? Yes Symptoms What Chronic Disease(s) does the patient have: CKD Do you check your blood pressures at home? Yes, Enter readings: on occasion nothing recent Do you have new or worse shortness of breath with activity? No Do you feel like you are dehydrated for any reason, including not being able to eat or drink normally, or having less urine/much darker urine than normal for you? No Do you check your daily weight at home? No Are you having any other symptoms that your PCP needs to know about? No Symptom Escalation The patient required an escalation for symptom(s)? No Medications Do you have any questions about taking your medication or which medications you should be on? No Do you need any medication refills at this time, including any of the medications you might take only when needed? No Social We would like to make sure you have what you need so that your basic needs are met- including your personal safety, food, housing and medications? Would you like to speak with a social work horses or mules teamster to help give you support for any of these needs? No It can be normal to feel anxious or down during a time like this. Would you like to talk to a mental health professional about how you have been feeling? No Closing Thank you for taking the time to talk with me today. We want to work with you to ensure that we arekeeping your medical condition(s) well-controlled and to keep you healthy and out of the doctor's office or hospital. It s also not too late for me to sign you up for automated weekly questionnaires through [employer]. This is an easy way for us to stay connected each week. Are you interested? No, I understand. We can always sign you up in the future if you change your mind. Just as a reminder, will continue to call you every other week to check in on your health. Our calls should take 10-15 minutes or less. Remember, if you have concerns in between our calls, please call your PCP's office right away. Thank you. Enter next patient outreach date for two weeks on the same day of the week as today in the Track PtOutreach and End outreach. documented in this encounterThe [facility]07-[facility] History of Present illness Narrative* Paris Parker RN - 03/21/2022 2:48 PM EDT [facility] CDM Enrollment Provider Action/FYI: 1st insight enrollment attempt Left VM Patient referred by: [facility] Carol Contact made with patient: No - Left Message: Hi my name is Paris Parker RN and I am calling from the [facility] on behalf of your PCP, Lizeth Saini PA-C. We are excited to share with you a new program to help you manage your health. Please call me back at [phone] between the hours of 8am-5pm Thursday-Thursday. You will receive another phone call from me within the next two business days. I hope you can take the time to speak with me. (Keep encounter open and attempt 2nd outreach in two business days from today) END OUTREACH documented in this encounterThe [facility]07-29-2022 Evaluation note* Diagnosis Stage 3a chronic kidney disease (HCC)- Primary documented in this encounter [facility] Miscellaneous Notes* Telephone Encounter - Suly Valentine RN - 03/20/2022 9:24 AM EDT Patient has been identified by name and date of : Yes Patient phones for refill(s): Pending Prescriptions Disp Refills CYCLOBENZAPRINE 5 MG TABLET 90 tablet 1 Sig: Take 1 tablet by mouth at bedtime as needed for muscle spasm. MAGDALENE: No Date of last office visit in primary care: 03/06/22, NOV: 05/02/22 Last 2 Encounter Wt Readings: Date: Wt: 03/06/2022 73 kg (161 lb) 02/12/2022 75.3 kg (166 lb 1.6 oz) Please advise. Thank you. Suly Valentine RN documented in this encounterThe [facility]07-21-[facility]22 History of Present illness Narrative* Brent High, PT - 03/13/2022 10:40 AM EDT Episode Visit Count: 4 Therapist That Will Oversee The Plan Of Care: Brent High Start of Care Date: 02/03/22 Onset Date: 02/03/21 Plan of Care Certification Date: 03/13/22 Next Certification Due Date: 04/17/22 Patient Identified by Name and Date of : Yes [facility]AB[facility]ER[facility] PHYSICAL THERAPY PROGRESS REPORT PLAN OF CARE UPDATE: Assessment: Angie Dutton demonstrates difficulty with R hip IR ROM and pain with increased higher impact activities and improvements in R hip pain intensity and frequency, R hip strength, and ROM. Hehasprogressed toward goals. Patient continues to present with impairments in ADL's, range of motionand strength that interfere with walking;standing . Current prognosis is Good due to: current objective clinical presentation . He will benefit from continued skilled therapy services to meet the updated goals for this plan of care as noted below. Goals updated 03/13/2022 Goals for Episode of Care: created on 02/03/22 through 03/31/22 Pt will report decreased pain with jogging - Pt has not assessed this yet, will continue Pt will demo 4+/5 glute max strength for improved stability at the R hip Joint - Progressing, will continue [place] in home exercise program. - Met so far Normal gait. - MET Pt will demo improved hip ER and IR by 10 degrees or more for improved jointed mechanics and decreased pain - Progressing, will continue Patient Goals: Pt would like to job more Patient Goals: Less pain Planned Interventions, Frequency, and Duration: 1x/month, One month Total Number of Visits Planned: 1 Patient to be seen for Therapeutic exercise ([id number]);Neuromuscular re-education ([id number]);Manual therapy (43601);Gait Training ([id number]);Patient/Family/Caregiver Education;Ultrasound ([id number]) PLAN FOR NEXT VISIT: Final assessment depending on symptoms. Advance exercises as appropriate. SUBJECTIVE: Patient Reason for Visit: Pt states he was not feeling well the past few days. Has beensticking with the exercises for the most part. Pt states that he feels about 70% improved so far. Patient Goals: Less pain Functional Limitations: walking;standing Pain: Pain Pain Level: 0 Pain Location: Hip - Right Post Treatment Pain Post Treatment Pain Level: No Change Post Treatment Pain Location: Hip - Right PROMIS Scales Higher is Better 11/01/2019 Phys Func - Score 51 (within normal limits) Phys Func - Percentile 54 % Social Roles - Score 44 (mild dysfunction) Social Role - Percentile 27 % GH Physical - Score Incomplete GH Mental - Score Incomplete T-scores: mean of general population = 50. 5 points is clinically meaningfully difference Percentiles provide an indication of how the patient's score ranks in relation to the general population. Higher percentile rankings indicate better function/quality of life. 50th percentile is the average of the general population and indicates half of respondents had a worse score. Lower is Better 11/01/2019 Fatigue - Score 59 (mild) Fatigue - Percentile 18 % T-scores: mean of general population = 50. 5 points is clinically meaningfully difference Percentiles provide an indication of how the patient's score ranks in relation to the general population. Higher percentile rankings indicate better function/quality of life. 50th percentile is the average of the general population and indicates half of respondents had a worse score. OBJECTIVE MEASURES WITH LEVEL OF FUNCTION: Lumbar Spine AROM Lumbar Flexion: Normal Lumbar Extension: Moderate limitation Lumbar R Side-Bend: Normal Lumbar L Side-Bend: Normal Lumbar R Rotation: Normal Lumbar L Rotation: Normal LE AROM Tested?: Yes LE AROM R Hip Internal Rotation: 10 Degrees R Hip External Rotation: 44 Degrees LE Strength R LE Strength: Grossly 5/5 L LE Strength: Grossly 5/5 R Hip Extension: 4/5 R Hip Flexion (L2): 5/5 R Hip ABduction: 4/5 R Hip External Rotation: 5/5 R Knee Extension (L3): 5/5 R Knee Flexion: 5/5 TREATMENT: Therapeutic Exercise: 1: All objective measures taken this session 2: Side stepping GTB until fatigue x 3 sets 3: S/L hip abd x 15 reps 4: S/L clam BTB x 30 x 3 sets Skilled Intervention: Patient was educated in proper exercise technique and purpose for exercises. Provided written instruction for home exercise program to facilitate proper performance and compliance. Correct performance of therapeutic exercises was facilitated with verbal and visual cuing. Billing Therapeutic Exercise Treatment Minutes: 42 Total Treatment Time Minutes (timed/untimed): 42 Brent High PT documented in [facility] encounterThe [facility] History of Present illness Narrative* Lizeth Saini PA-C - 03/06/2022 2:20 PM EDT 81 year old male with c/o pain in mid to LUQ abdomen, moved down to LLQ. [place] like a ball, like a fist, severe pain. Lasted 15-25 sec and then gone. Has repetitive pain just below the mid left lower rib costal margin which seems to occur only when he is bending forward. No chest pain or pain similar to anginal sx in past, SOB, dyspnea, orthopnea, racing or irregular heartbeats, palpitations, syncopal sx, leg swelling, nausea, diaphoresis or heartburn. Bowels have been normal, no nausea or vomiting, heartburn or acid reflux. Patient remains active and exercising. HISTORIES FAMILY HISTORY Problem Relation Age of Onset Heart Mother Hypertension Mother Heart Father Heart Sister Heart Brother Stroke Sister Colon Cancer No Family History 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 PAST SURGICAL HISTORY Procedure Laterality Date ARTHROSCOPY KNEE DIAGNOSTIC W/WO SYNOVIAL BX SPX 2000 both COLONOSCOPY FLX DX W/COLLJ SPEC WHEN PFRMD 2001 Colonoscopy COLONOSCOPY FLX DX W/COLLJ SPEC WHEN PFRMD 07/13/2014 Colonoscopy COLONOSCOPY GEN ANES 11/26/2020 CORONARY ARTERY BYP W/VEIN & ARTERY GRAFT 3 VEIN 1982 CABG, three grafts EGD 11/26/2020 EGD 02/14/2021 EYE SURGERY HX FOOT SURGERY HX Left HEART SURGERY HX NEUROPLASTY &/TRANSPOS MEDIAN NRV CARPAL TUNNE 1998 Carpal tunnel decomp bilateral PAST SURGICAL HISTORY OF surgery on umbilicus due to bleeding PAST SURGICAL HISTORY OF 1961 umbical mass resection SIGMOIDOSCOPY FLX DX W/COLLJ SPEC BR/WA IF PFRMD 08/29/2004 Sigmoidoscopy TONSILLECTOMY HX Social History Tobacco Use Smoking status: Former Smoker Years: 29.00 Types: Cigarettes Start date: 08/24/1955 Quit date: 08/24/1984 Years since quittin.5 Smokeless tobacco: Never Used Tobacco comment: QUIT at age 44, started at 15 Vaping Use Vaping Use: Never used Substance Use Topics Alcohol use: Yes Alcohol/week: 17.5 - 35.0 standard drinks Types: 7 - 14 Cans of Beer (12oz) per week Comment: 2 beers a day Drug use: No ACTIVE PROBLEM LIST Spinal Stenosis, Lumbar Region, Without Neurogenic Claudication Thoracic Or Lumbosacral Neuritis Or Radiculitis, Unspecified Lumbosacral Spondylosis Without Myelopathy Essential Hypertension, Benign Mixed Hyperlipidemia Coronary Atherosclerosis Insomnia, Unspecified Esophageal Reflux Impaired Fasting Glucose Allergic Rhinitis, Cause Unspecified Anemia, Unspecified Thrombocytopenia, Unspecified (Hcc) Elevated Serum Creatinine Serum Calcium Elevated Atherosclerosis of [place] Coronary Artery of [place] Heart With Stable Angina Pectoris (Hcc) Tia (Transient Ischemic Attack) Chronic Right Hip Pain Pain of Right Calf Stage 3a Chronic Kidney Disease (Hcc) Iron Deficiency Anemia Chronic Itp (Idiopathic Thrombocytopenia) (Hcc) Stroke-Like Symptoms Right Groin Pain Right Hip Pain Current Outpatient Medications Medication Sig Dispense Refill fluticasone (FLONASE) 50 mcg/actuation nasal spray Use 2 Sprays in each nostril once daily. Rinse mouth after use. 15.[address] (PROTONIX) 20 mg tablet Take 2 tablets by mouth once daily. 180 tablet 1 nitroglycerin sublingual (NITROQUICK) 0.4 mg SL tablet Dissolve 1 tablet under the tongue as directed. DISSOLVE ONE(1) TABLET UNDER THE TOUNGUE NEEDED FOR CHEST PAIN,EVERY 5 MIN X3 1 Bottle of 25 1 gabapentin (NEURONTIN) 400 mg capsule Take 1 capsule by mouth twice daily for 180 days. 180 capsule1 clopidogrel (PLAVIX) 75 mg tablet Take 1 tablet by mouth once daily. 90 tablet 3 simvastatin (ZOCOR) 40 mg tablet Take 1 tablet by mouth daily at bedtime. 90 tablet 3 metoprolol succinate ER (TOPROL XL) 25 mg 24 hr tablet Take 1 tablet by mouth once daily. 90 tablet1 ezetimibe (ZETIA) 10 mg tablet Take 1 tablet by mouth once daily. 30 tablet 12 isosorbide mononitrate ER (IMDUR) 30 mg 24 hr tablet Take 0.5 tablets by mouth once daily. 45 tablet 3 traZODone (DESYREL) 50 mg tablet Take 1 tablet by mouth daily at bedtime. 90 tablet 3 acetaminophen (TYLENOL ARTHRITIS PAIN) 650 mg CR tablet Take 1,300 mg by mouth twice daily. No current facility-administered medications for this visit. SHINGRIX VACCINE(2 of 3) due on 04/10/2011 DTAP,TDAP,TD(3 - Td or Tdap) due on 03/13/2021 ADVANCE DIRECTIVE DISCUSSION Never done COVID-19 VACCINE(4 - Booster for Pfizer series) due on 12/01/2021 EXAM: BP 126/72 Pulse 78 Temp 36.6 C (97.8 F) Resp 16 Wt 73 kg (161 lb) SpO2 97% BMI 25.22 kg/m Pleasant well appearing adult man, usual demeanor, talking up a storm, in no acute distress. Alert and oriented all spheres. Normal affect and cognition. Speech normal. No deficits to learning or comprehension. Skin warm, dry, pink to lips and nailbeds. Normal turgor. Has outbreak across upper abdomen with pink papules consistent with early or light herpes zoster rash. Respirations regular and unlabored. HEENT: NCAT. No scleral icterus or conjunctival injection. TM's clear. Nose and oropharynx free from injection or lesion. Oral membranes moist and pink. No cervical lymph nodes. Thyroid non-tender, no masses, or enlargement. Carotids pulses 2+/4+ without bruits. Chest is normal shape. Lungs are clear to all [place] with good air exchange through out. HRRR without murmur or gallop. No lifts, heaves, or rubs. Abdomen: active bowel sounds throughout, soft, nontender, no masses or organomegaly. No CVAT. Extrem: no clubbing or cyanosis. Edema: none. Extremities are warm and pink with prompt capillary refill. ASSESSMENT/PLAN: 1. LUQ abdominal pain - ICD9: 789.02, ICD10: R10.12 (primary diagnosis) Exam is benign, I suspect this is either muscular or possibly gas movement. Patient has no indication of anginal equivalents or coronary related symptoms which is patient's fear. 2. Herpes zoster without complications - ICD9: 053.9, ICD10: B02.9 Appears to have resolving herpes zoster all across the mid left abdomen around to the flank. Patient says it has not been painful, lightly itchy. Symptoms been present for several weeks so not much point doing antivirals. Lizeth Saini PA-C documented in this encounterThe [facility]07[facility] History of Present illness Narrative* Brent High, PT - 03/06/2022 10:36 AM EDT Episode Visit Count: 3 Therapist That Will Oversee The Plan Of Care: Brent High Start of Care Date: 02/03/22 Onset Date: 02/03/21 Plan of Care Certification Date: 02/03/22 Next Certification Due Date: 03/10/22 Patient Identified by Name and Date of : Yes REHABILITATION AND SPORTS THERAPY PHYSICAL THERAPY TREATMENT NOTE ASSESSMENT: Angie Dutton tolerated the session with expected muscle soreness and no issues. He demonstrated good tolerance to all therapeutic exercises. The patient will continue to benefit from ongoing skilled physical therapy to progress toward set goals. PLAN FOR NEXT VISIT: POC update SUBJECTIVE: Patient Reason for Visit: Pt states he feels his walking is better. Pt is going [employer]. Pain: Pain Pain Level: 3 (when walking) Pain Location: Hip - Right Post Treatment Pain Post Treatment Pain Level: No Change Post Treatment Pain Location: Hip - Right OBJECTIVE MEASURES WITH LEVEL OF FUNCTION: Limited R hip ABD to 25 deg TREATMENT: Therapeutic Exercise: 1: Prone hip ER/IR with hip distraction VTB 2 x 20 2: L S/L CLamshell GTB 3 x 15 reps (Pt reports a little easy) 3: L S/L clam x 15 reps BTB 4: L S/L hip abd 3 x 12 reps 5: Hooklying bridge 2 x 15 reps 6: Hooklying bridge 11# MB x 12 reps 7: Supine SLR 3# 3 x 12 reps Skilled Intervention: Patient was educated in proper exercise technique and purpose for exercises. Provided written instruction for home exercise program to facilitate proper performance and compliance. Correct performance of therapeutic exercises was facilitated with verbal and visual cuing. Billing Therapeutic Exercise Treatment Minutes: 40 Total Treatment Time Minutes (timed/untimed): 40 Brent High PT documented in this encounterThe [facility] History of Present illness Narrative* Brent High PT - 02/27/2022 8:09 AM EDT Episode Visit Count: 2 Therapist That Will Oversee The Plan Of Care: Brent High Start of Care Date: 02/03/22 Onset Date: 02/03/21 Plan of Care Certification Date: 02/03/22 Next Certification Due Date: 03/10/22 Patient Identified by Name and Date of : Yes REHABILITATION AND SPORTS THERAPY PHYSICAL THERAPY TREATMENT NOTE ASSESSMENT: Angie Dutton tolerated the session with no issues. He demonstrated difficulty with Decreased hip ROM. The patient will continue to benefit from ongoing skilled physical therapy to progress toward set goals. PLAN FOR NEXT VISIT: Assess reaction to HEP SUBJECTIVE: Patient Reason for Visit: Pt states he was sick so he could not show up to the last appointment. Pt has been doing the HEP. Pain: Pain Pain Level: (Low) Pain Location: Hip - Right OBJECTIVE MEASURES WITH LEVEL OF FUNCTION: LE AROM R Hip Internal Rotation: 3 Degrees Low back rotates with prone hip ext bilat Pain and increased tone of R lumbar paraspinals TREATMENT: Therapeutic Exercise: 1: Bridge without strap 2 x 15 reps 2: Prone hip IR/ER with band distraction 2 x 20 reps 3: Discussed purpose of prone hip IR/ER and how to perform properly. Problem solved with how to complete this exercise at home. Skilled Intervention: Patient was educated in proper exercise technique and purpose for exercises. Provided written instruction for home exercise program to facilitate proper performance and compliance. Correct performance of therapeutic exercises was facilitated with verbal and visual cuing. Manual Therapy: 1: Firm STM over R lumbar paraspinals at L4 in prone x 10 min Skilled Intervention: Manual skills to improve joint mobility, ROM, and decrease pain. Utilized anatomy knowledge of the therapist, and assessment of patient's response to intervention. Gait Trainin: Discussed how to use a SPC suring gait with step through pattern. Discussed proper height of thecane and how to adjust the cane. Discussed not putting excessive pressure down through the cane. Skilled Intervention: Facilitated proper gait cycle with the use of verbal and visual cues for correction of gait deviations identified in the objective section above. Billing Therapeutic Exercise Treatment Minutes: 15 Manual TherapyTreatment Minutes: 10 Gait Training Treatment Minutes: 15 Total Treatment Time Minutes (timed/untimed): 40 Brent High PT documented in this encounterThe [facility]06[facility] History of Present illness Narrative* Jeanie Deb Tavares, DO - 02/12/2022 3:09 PM EDT Images from the original note were not included. [facility] [place] Navya Ivey Department of Cardiovascular Medicine SECTION OF REGIONAL CARDIOLOGY FOLLOW UP 02/12/22 Pamela: 08/06/21 HPI: Angie Dutton is (an) 81 year old male with history of CAD s/p CABGx3 1985, PCI x 2 - 2007, hyperlipidemia, hypertension, CKD, PSVT, PVD and hiatal hernia who is here today for follow-up. I care for his as well. He has been doing quite well with a very active high-quality life. He plays golf without difficulty. He reports that he has had stable exercise tolerance. He is going to [place] regularly. He denies chest pain. He's used no nitroglycerin. He has had no orthopnea, edema, syncope, palpitations, TIAs, amaurosis, claudication. The patient is involved in sporadic irregular exercise Patient denies SOB, chest pain, dizziness, lightheadedness, palpitations, lower extremity edema, PND, orthopnea, presyncope, syncope or claudication symptoms. Prior Hx: 08/06/21 [facility] admit:06/25/2021 Prehospital work-up: Presented to [facility] emergency department 06/25/2021 with complaints of inability to walk or stand up straight. 06/25/2021 CT head without IV contrast: Nonspecific white matter changes, ventricles appropriate for age, no masses. 06/25/21 CT angiography head and neck with IV contrast: No major vessel stenosis or occlusion other than the right internal carotid artery 40% stenosis, right external carotid artery moderate stenosisno occlusion, left internal carotid artery 55% stenosis, left external carotid artery moderate stenosis. Other findings: Right maxillary sinus mucosal retention cyst, degenerative changes in cervicalspine at multiple levels causing foraminal stenosis. 06/26/21 MRI: no evidence of acute ischemia. Chronic microvascular changes 06/26/21 echo: LV size and LV SF WNL. Apical false tendon noted. EF 65%. Moderate stage II diastolicdysfunction. No regional wall abnormalities noted. RV size and RV SF WNL. LA moderately enlarged, RA WNL, no right to left shunt noted. MV mild annular calcification, extension onto posterior leaflet, 1+ MRI. 0-1 TBI, right ventricular systolic pressure 36 mmHg. AV mild focal calcification, trivialAVI. PV not visualized well, trivial PVR. Aortic root not well visualized. No pericardial effusion. labs: 07-14 WBC 3.7L Hgb 13.7 HCT 42.3, PLT 74L otherwise normal differential. NA 148 K4.1 CL 109 CO2 20.0 AG 3 BUN 13 CRE 1.29 EGFR 57L GLU 90 CA 9.1 troponin high-sensitivity #1 36, #2 46 MG 1.9 They did not feel he had a stroke but was dehydrated.. Myocardial perfusion imaging stress test in September 2019 was normal with his prior study in September 2017 suggesting a very small area of ischemia possibly in the RCA and circumflex distribution. 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 PAST SURGICAL HISTORY Procedure Laterality Date ARTHROSCOPY KNEE DIAGNOSTIC W/WO SYNOVIAL BX SPX 2000 both COLONOSCOPY FLX DX W/COLLJ SPEC WHEN PFRMD 2001 Colonoscopy COLONOSCOPY FLX DX W/COLLJ SPEC WHEN PFRMD 07/13/2014 Colonoscopy COLONOSCOPY GEN ANES 11/26/2020 CORONARY ARTERY BYP W/VEIN & ARTERY GRAFT 3 VEIN 1981 CABG, three grafts EGD 11/26/2020 EGD 02/14/2021 EYE SURGERY HX FOOT SURGERY HX Left HEART SURGERY HX NEUROPLASTY &/TRANSPOS MEDIAN NRV CARPAL TUNNE 1998 Carpal tunnel decomp bilateral PAST SURGICAL HISTORY OF surgery on umbilicus due to bleeding PAST SURGICAL HISTORY OF 1961 umbical mass resection SIGMOIDOSCOPY FLX DX W/COLLJ SPEC BR/WA IF PFRMD 08/29/2004 Sigmoidoscopy TONSILLECTOMY HX FAMILY HISTORY Problem Relation Age of Onset Heart Mother Hypertension Mother Heart Father Heart Sister Heart Brother Stroke Sister Colon Cancer No Family History SOCIAL HISTORY Social History Tobacco Use Smoking status: Former Smoker Years: 29.00 Types: Cigarettes Start date: 08/24/1955 Quit date: 08/24/1984 Years since quittin.4 Smokeless tobacco: Never Used Tobacco comment: QUIT at age 44, started at 15 Vaping Use Vaping Use: Never used Substance Use Topics Alcohol use: Yes Alcohol/week: 17.5 - 35.0 standard drinks Types: 7 - 14 Cans of Beer (12oz) per week Comment: 2 beers a day Drug use: No ALLERGIES: Sulfa (Sulfonamide Antibiotics) CURRENT MEDICATIONS: Current Outpatient Medications Medication Sig fluticasone (FLONASE) 50 mcg/actuation nasal spray Use 2 Sprays in each nostril once daily. Rinse mouth after use. pantoprazole DR (PROTONIX) 20 mg tablet Take 2 tablets by mouth once daily. nitroglycerin sublingual (NITROQUICK) 0.4 mg SL tablet Dissolve 1 tablet under the tongue as directed. DISSOLVE ONE(1) TABLET UNDER THE TOUNGUE NEEDED FOR CHEST PAIN,EVERY 5 MIN X3 gabapentin (NEURONTIN) 400 mg capsule Take 1 capsule by mouth twice daily for 180 days. clopidogrel (PLAVIX) 75 mg tablet Take 1 tablet by mouth once daily. simvastatin (ZOCOR) 40 mg tablet Take 1 tablet by mouth daily at bedtime. metoprolol succinate ER (TOPROL XL) 25 mg 24 hr tablet Take 1 tablet by mouth once daily. ezetimibe (ZETIA) 10 mg tablet Take 1 tablet by mouth once daily. isosorbide mononitrate ER (IMDUR) 30 mg 24 hr tablet Take 0.5 tablets by mouth once daily. traZODone (DESYREL) 50 mg tablet Take 1 tablet by mouth daily at bedtime. acetaminophen (TYLENOL ARTHRITIS PAIN) 650 mg CR tablet Take 1,300 mg by mouth twice daily. No current facility-administered medications for this visit. ROS: Card: See present history. Pulm: Negative for cough, hemoptysis, wheezing, COPD, dyspnea or shortness of breath Gastro: No nausea, vomiting, or diarrhea GenUr: No history of dysuria, frequency or incontinence Endo: Negative for cold or heat intolerance, polyuria or polydipsia. Neuro: no focal weakness, focal sensory loss, headache, visual changes, seizure activity, ataxia, speech/language loss. Musculoskeletal: Negative for joint or muscle pain, back pain, or swelling. Infect: no fevers, chills, rigors or night sweats. Skin: Negative for lesions, rash, and itching. Heme: Negative for prolonged bleeding, bruising easily or swollen nodes. The remainder of the review of systems is negative. PHYSICAL EXAMINATION: GENERAL: alert cooperative, pleasant oriented x 3 (self, time and place) in no acute distress BP 144/74 Pulse 86 Ht 170.2 cm (5' 7) Wt 75.3 kg (166 lb 1.6 oz) SpO2 97% BMI 26.01 kg/m Last 3 Encounter BP Readings: Date: BP: 01/30/2020 132/70 11/01/2019 128/86 10/25/2019 142/70 Last 3 Encounter Pulse Readings: Date: Pulse: 01/30/2020 62 11/01/2019 59 10/25/2019 60 Last 3 Encounter Wt Readings: Date: Wt: 02/16/2020 70.3 kg (155 lb) 01/30/2020 71.7 kg (158 lb) 10/25/2019 74.4 kg (164 lb) SKIN: warm, dry, no rash. NECK: supple, no palpable masses, no JVD, carotids well felt, no bruits. CARDIAC: [place] palpable in the 5th intercostal space mid clavicular line, normal S1 and S2, no murmurs, gallops, or rubs. CHEST: Normal respiratory efforts, lungs clear to auscultation bilaterally. ABDOMEN: Soft, no tenderness, rigidity, or masses. No palpable liver or spleen. Normal bowel sounds, no bruits. NEURO: intact cranial nerves II through XII, no motor or sensory deficits in all 4 extremities. EXTREMITIES: No cyanosis, clubbing, or edema. Peripheral pulses well felt. CARDIAC (& OTHER IMPORTANT) TESTING: MPI 10/17/19: CONCLUSIONS: 1. SPECT Perfusion Study: Normal. 2. There is no scintigraphic evidence for inducible ischemia. 3. No evidence of scarred myocardium. 4. Functional capacity N/A (pharmacological). 5. Left ventricle is normal in size. The left ventricle systolic function is normal. 6. Right ventricle is normal in size. 7. This is a low risk scan. 1 LVEF % 68 LABS: Cholesterol, Total (mg/dL) Date Value 02/03/2022 147 08/08/2021 195 HDL Cholesterol (mg/dL) Date Value 02/03/2022 57 08/08/2021 60 LDL Cholesterol (mg/dL) Date Value 02/03/2022 58 08/08/2021 110 Triglyceride (mg/dL) Date Value 02/03/2022 158 08/08/2021 125 ASSESSMENT/PLAN: Coronary artery disease involving [place] coronary artery of [place] heart without angina pectoris s/p CABGx3 1985, PCI stent - 2007 Continue secondary prevention Essential hypertension, benign - optimal control today - Encouraged dietary sodium restriction/DASH diet - Recommended regular aerobic exercise. - Reviewed risks of HTN and principles of treatment - Goal of BP <130/80 Mixed hyperlipidemia - optimal control with LDL 58, 02/03/22 and goal at < 70 - Continue current medication (simvastatin 40 mg, ezetimibe 10 mg) TIA (transient ischemic attack) I recommend continuing his current medications as he is doing very well and his BP is usually at goal. He should continue aggressive secondary prevention and will follow-up with him periodically. He has a LDL that is now in good range (<70) since we increased the simvastatin to 40 mg every day and added ezetmibe. We will follow him periodically to help with secondary prevention. Thank you for allowing me the privilege of participating in the care of your patient. Please do nothesitate to contact me if there are any questions. Jeanie Tavares, DO, FACC, FCCP, FACOI CC: Lizeth Saini PA-C [id number] [place] [address] documented in this encounterThe [facility]06-[facility] Miscellaneous Notes* Telephone Encounter - Cristy Moe Ma - 02/10/2022 2:50 PM EDT Letter mailed to pt home of results. Cristy Moe MA * Telephone Encounter - Cristy Moe Ma - 02/10/2022 2:50 PM EDT ----- Message from Lizeth Saini PA-C sent at 02/07/2022 5:46 PM EDT ----- Please advise labs look good with prediabetic range, creatinine is slightly higher than it was lasttime but stable overall from previous checks. Otherwise labs look good. Thanks, Aidan Saini PA-C [facility] Miscellaneous Notes* Telephone Encounter - Lizeth Hodgson RN - 02/06/2022 2:18 PM EDT Patient has been identified by name and date of : Yes Patient phones for refill(s): Pending Prescriptions Disp Refills FLUTICASONE PROPIONATE 50 MCG/ACTUATION NASAL SPRAY,SUSPENSION 15.8 mL 3 Sig: Use 2 Sprays in each nostril once daily. Rinse mouth after use. MAGDALENE: No Date of last office visit with pcp: 01-30-22. Next appt: 05-02-22 Last 2 Encounter Wt Readings: Date: Wt: 01/30/2022 74.8 kg (165 lb) 10/22/2021 74.4 kg (164 lb) Previous labs/tests for medication: Blood Pressure: BUN (mg/dL) Date Value 02/03/2022 13 08/31/2021 12 Sodium (mmol/L) Date Value 02/03/2022 140 08/31/2021 142 Last 1 Encounter BP Readings: Date: BP: 01/30/2022 144/82 Liver Function: ALT (U/L) Date Value 02/03/2022 14 07/15/2021 10 AST (U/L) Date Value 02/03/2022 24 07/15/2021 19 Please advise. Thank you. Lizeth Hodgson RN documented [facility] History of Past illness Narrative* Problem Noted Date Resolved Date Right hip pain 02/03/2022 09/26/2022 Encounter for support and coordination of transi tion of care 06/26/2021 08/30/2021 Special screening for malignant neoplasms, colon 07/13/2014 07/13/2014 Anemia, unspecified 05/26/2008 09/26/2022 Thrombocytopenia, unspecified 05/26/2008 Overview: Mild but progressive; negative iron studies 05/31 ? Myelodysplasia? May eventually need bone marrow bx Other specified acquired hypothyroidism 04/14/20 05 05/30/2014 Polymyalgia rheumatica 0 documented as of this encounter (statuses as of 10/01/2022) [facility] illness Narrative* Problem Noted Date Resolved Date Right hip pain 02/03/2022 09/26/2022 Encounter for support and coordination of transi tion of care 06/26/2021 08/30/2021 Special screening for malignant neoplasms, colon 07/13/2014 07/13/2014 Anemia, unspecified 05/26/2008 09/26/2022 Thrombocytopenia, unspecified 05/26/2008 Overview: Mild but progressive; negative iron studies 1008 ? Myelodysplasia? May eventually need bone marrow bx Other specified acquired hypothyroidism 04/14/20 05 05/30/2014 Polymyalgia rheumatica 0 documented as of this encounter (statuses as of 10/02/2022) [facility] illness Narrative* Problem Noted Date Resolved Date Right hip pain 02/03/2022 09/26/2022 Encounter for support and coordination of transi tion of care 06/26/2021 08/30/2021 Special screening for malignant neoplasms, colon 07/13/2014 07/13/2014 Anemia, unspecified 05/26/2008 09/26/2022 Thrombocytopenia, unspecified 05/26/2008 Overview: Mild but progressive; negative iron studies 1008 ? Myelodysplasia? May eventually need bone marrow bx Other specified acquired hypothyroidism 04/14/20 05 05/30/2014 Polymyalgia rheumatica 0 documented as of this encounter (statuses as of 10/06/2022) [facility] Narrative* Problem Noted Date Resolved Date Right hip pain 02/03/2022 09/26/2022 Encounter for support and coordination of transi tion of care 06/26/2021 08/30/2021 Special screening for malignant neoplasms, colon 07/13/2014 07/13/2014 Anemia, unspecified 05/26/2008 09/26/2022 Thrombocytopenia, unspecified 05/26/2008 Overview: Mild but progressive; negative iron studies 1008 ? Myelodysplasia? May eventually need bone marrow bx Other specified acquired hypothyroidism 04/14/20 05 05/30/2014 Polymyalgia rheumatica 0 documented as of this encounter (statuses as of 10/22/2022) [facility] Narrative* Problem Noted Date Resolved Date Right hip pain 02/03/2022 09/26/2022 Encounter for support and coordination of transi tion of care 06/26/2021 08/30/2021 Special screening for malignant neoplasms, colon 07/13/2014 07/13/2014 Anemia, unspecified 05/26/2008 09/26/2022 Thrombocytopenia, unspecified 05/26/2008 Overview: Mild but progressive; negative iron studies 10/08 ? Myelodysplasia? May eventually need bone marrow bx Other specified acquired hypothyroidism 04/14/20 05 05/30/2014 Polymyalgia rheumatica 0 documented as of this encounter (statuses as of 11/06/2022) [facility] Narrative* Problem Noted Date Resolved Date Right hip pain 02/03/2022 09/26/2022 Encounter for support and coordination of transi tion of care 06/26/2021 08/30/2021 Special screening for malignant neoplasms, colon 07/13/2014 07/13/2014 Anemia, unspecified 05/26/2008 09/26/2022 Thrombocytopenia, unspecified 05/26/2008 Overview: Mild but progressive; negative iron studies 05/31 ? Myelodysplasia? May eventually need bone marrow bx Other specified acquired hypothyroidism 04/14/20 05 05/30/2014 Polymyalgia rheumatica 0 documented as of this encounter (statuses as of 11/07/2022) [facility] Narrative* Problem Noted Date Resolved Date Right hip pain 02/03/2022 09/26/2022 Encounter for support and coordination of transi tion of care 06/26/2021 08/30/2021 Special screening for malignant neoplasms, colon 07/13/2014 07/13/2014 Anemia, unspecified 05/26/2008 09/26/2022 Thrombocytopenia, unspecified 05/26/2008 Overview: Mild but progressive; negative iron studies 05/31 ? Myelodysplasia? May eventually need bone marrow bx Other specified acquired hypothyroidism 04/14/20 05 05/30/2014 Polymyalgia rheumatica 0 documented as of this encounter (statuses as of 11/13/2022) [facility] Narrative* Problem Noted Date Resolved Date Right hip pain 02/03/2022 09/26/2022 Encounter for support and coordination of transi tion of care 06/26/2021 08/30/2021 Special screening for malignant neoplasms, colon 07/13/2014 07/13/2014 Anemia, unspecified 05/26/2008 09/26/2022 Thrombocytopenia, unspecified 05/26/2008 Overview: Mild but progressive; negative iron studies 05/31 ? Myelodysplasia? May eventually need bone marrow bx Other specified acquired hypothyroidism 04/14/20 05 05/30/2014 Polymyalgia rheumatica 0 documented as of this encounter (statuses as of 11/21/2022) [facility] Narrative* Problem Noted Date Resolved Date Right hip pain 02/03/2022 09/26/2022 Encounter for support and coordination of transi tion of care 06/26/2021 08/30/2021 Special screening for malignant neoplasms, colon 07/13/2014 07/13/2014 Anemia, unspecified 05/26/2008 09/26/2022 Thrombocytopenia, unspecified 05/26/2008 Overview: Mild but progressive; negative iron studies 10 ? Myelodysplasia? May eventually need bone marrow bx Other specified acquired hypothyroidism 04/14/20 05 05/30/2014 Polymyalgia rheumatica 0 documented as of this encounter (statuses as of 11/27/2022) [facility] Narrative* Problem Noted Date Resolved Date Right hip pain 02/03/2022 09/26/2022 Encounter for support and coordination of transi tion of care 06/26/2021 08/30/2021 Special screening for malignant neoplasms, colon 07/13/2014 07/13/2014 Anemia, unspecified 05/26/2008 09/26/2022 Thrombocytopenia, unspecified 05/26/2008 Overview: Mild but progressive; negative iron studies 08 ? Myelodysplasia? May eventually need bone marrow bx Other specified acquired hypothyroidism 04/14/20 05 05/30/2014 Polymyalgia rheumatica 0 documented as of this encounter (statuses as of 12/23/2022) [facility] Narrative* Problem Noted Date Resolved Date Right hip pain 02/03/2022 09/26/2022 Encounter for support and coordination of transi tion of care 06/26/2021 08/30/2021 Special screening for malignant neoplasms, colon 07/13/2014 07/13/2014 Anemia, unspecified 05/26/2008 09/26/2022 Thrombocytopenia, unspecified 05/26/2008 Overview: Mild but progressive; negative iron studies 10/08 ? Myelodysplasia? May eventually need bone marrow bx Other specified acquired hypothyroidism 04/14/20 05 05/30/2014 Polymyalgia rheumatica 0 documented as of this encounter (statuses as of 12/24/2022) [facility]arrative* Problem Noted Date Resolved Date Right hip pain 02/03/2022 09/26/2022 Encounter for support and coordination of transi tion of care 06/26/2021 08/30/2021 Special screening for malignant neoplasms, colon 07/13/2014 07/13/2014 Anemia, unspecified 05/26/2008 09/26/2022 Thrombocytopenia, unspecified 05/26/2008 Overview: Mild but progressive; negative iron studies 1008 ? Myelodysplasia? May eventually need bone marrow bx Other specified acquired hypothyroidism 04/14/20 05 05/30/2014 Polymyalgia rheumatica 0 documented as of this encounter (statuses as of 12/30/2022) [facility] Narrative* Problem Noted Date Resolved Date Right hip pain 02/03/2022 09/26/2022 Encounter for support and coordination of transi tion of care 06/26/2021 08/30/2021 Special screening for malignant neoplasms, colon 07/13/2014 07/13/2014 Anemia, unspecified 05/26/2008 09/26/2022 Thrombocytopenia, unspecified 05/26/2008 Overview: Mild but progressive; negative iron studies 10/08 ? Myelodysplasia? May eventually need bone marrow bx Other specified acquired hypothyroidism 04/14/20 05 05/30/2014 Polymyalgia rheumatica 0 documented as of this encounter (statuses as of 01/06/2023) [facility]ative* Problem Noted Date Resolved Date Right hip pain 02/03/2022 09/26/2022 Encounter for support and coordination of transi tion of care 06/26/2021 08/30/2021 Special screening for malignant neoplasms, colon 07/13/2014 07/13/2014 Anemia, unspecified 05/26/2008 09/26/2022 Thrombocytopenia, unspecified 05/26/2008 Overview: Mild but progressive; negative iron studies 05/31 ? Myelodysplasia? May eventually need bone marrow bx Other specified acquired hypothyroidism 04/14/20 05 05/30/2014 Polymyalgia rheumatica 0 documented as of this encounter (statuses as of 01/06/2023) [facility]ative* Problem Noted Date Resolved Date Right hip pain 02/03/2022 09/26/2022 Encounter for support and coordination of transi tion of care 06/26/2021 08/30/2021 Special screening for malignant neoplasms, colon 07/13/2014 07/13/2014 Anemia, unspecified 05/26/2008 09/26/2022 Thrombocytopenia, unspecified 05/26/2008 Overview: Mild but progressive; negative iron studies 05/31 ? Myelodysplasia? May eventually need bone marrow bx Other specified acquired hypothyroidism 04/14/20 05 05/30/2014 Polymyalgia rheumatica 0 documented as of this encounter (statuses as of 02/14/2023) [facility]ative* Problem Noted Date Resolved Date Right hip pain 02/03/2022 09/26/2022 Encounter for support and coordination of transi tion of care 06/26/2021 08/30/2021 Special screening for malignant neoplasms, colon 07/13/2014 07/13/2014 Anemia, unspecified 05/26/2008 09/26/2022 Thrombocytopenia, unspecified 05/26/2008 Overview: Mild but progressive; negative iron studies 05/31 ? Myelodysplasia? May eventually need bone marrow bx Other specified acquired hypothyroidism 04/14/20 05 05/30/2014 Polymyalgia rheumatica 0 documented as of this encounter (statuses as of 02/23/2023) [facility]arrative* Problem Noted Date Diagnosed Date Resolved Date Right hip pain 02/03/2022 09/26/2022 Encounter for support and co ordination of transition of care 06/26/2021 08/30/2021 Special screening for malign ant neoplasms, colon 07/13/2014 07/13/2014 Anemia, unspecified 05/26/2008 09/26/19 23 Thrombocytopenia, unspecified 05/26/2008 09/26/2022 Overview: Mild but progressive; negative iron studies 05/31 ? Myelodysplasia? May eventually need bone marrow bx Other specified acquired hypothyroidism 04/14/2005 05/30/2014 Polymyalgia rheumatica 09/01 documented as of this encounter (statuses as of 03/04/2023) [facility]ative* Problem Noted Date Diagnosed Date Resolved Date Right hip pain 02/03/2022 09/26/2022 Encounter for support and co ordination of transition of care 06/26/2021 08/30/2021 Special screening for malign ant neoplasms, colon 07/13/2014 07/13/2014 Anemia, unspecified 05/26/2008 09/26/19 23 Thrombocytopenia, unspecified 05/26/2008 09/26/2022 Overview: Mild but progressive; negative iron studies 05/31 ? Myelodysplasia? May eventually need bone marrow bx Other specified acquired hypothyroidism 04/14/2005 05/30/2014 Polymyalgia rheumatica 09/01 documented as of this encounter (statuses as of 03/05/2023) [facility]ative* Problem Noted Date Diagnosed Date Resolved Date Right hip pain 02/03/2022 09/26/2022 Encounter for support and co ordination of transition of care 06/26/2021 08/30/2021 Special screening for malign ant neoplasms, colon 07/13/2014 07/13/2014 Anemia, unspecified 05/26/2008 09/26/19 23 Thrombocytopenia, unspecified 05/26/2008 09/26/2022 Overview: Mild but progressive; negative iron studies 10 ? Myelodysplasia? May eventually need bone marrow bx Other specified acquired hypothyroidism 04/14/2005 05/30/2014 Polymyalgia rheumatica 09/01 documented as of this encounter (statuses as of 03/10/2023) [facility]* Problem Noted Date Diagnosed Date Resolved Date Right hip pain 02/03/2022 09/26/2022 Encounter for support and co ordination of transition of care 06/26/2021 08/30/2021 Special screening for malign ant neoplasms, colon 07/13/2014 07/13/2014 Anemia, unspecified 05/26/2008 09/26/19 23 Thrombocytopenia, unspecified 05/26/2008 09/26/2022 Overview: Mild but progressive; negative iron studies 05/31 ? Myelodysplasia? May eventually need bone marrow bx Other specified acquired hypothyroidism 04/14/2005 05/30/2014 Polymyalgia rheumatica 09/01 documented as of this encounter (statuses as of 04/10/2023) [facility]* Problem Noted Date Diagnosed Date Resolved Date Right hip pain 02/03/2022 09/26/2022 Encounter for support and co ordination of transition of care 06/26/2021 08/30/2021 Special screening for malign ant neoplasms, colon 07/13/2014 07/13/2014 Anemia, unspecified 05/26/2008 09/26/19 23 Thrombocytopenia, unspecified 05/26/2008 09/26/2022 Overview: Mild but progressive; negative iron studies 1008 ? Myelodysplasia? May eventually need bone marrow bx Other specified acquired hypothyroidism 04/14/2005 05/30/2014 Polymyalgia rheumatica 09/01 documented as of this encounter (statuses as of 05/05/2023) [facility]* Problem Noted Date Diagnosed Date Resolved Date Right hip pain 02/03/2022 09/26/2022 Encounter for support and co ordination of transition of care 06/26/2021 08/30/2021 Special screening for malign ant neoplasms, colon 07/13/2014 07/13/2014 Anemia, unspecified 05/26/2008 09/26/19 23 Thrombocytopenia, unspecified 05/26/2008 09/26/2022 Overview: Mild but progressive; negative iron studies 05/31 ? Myelodysplasia? May eventually need bone marrow bx Other specified acquired hypothyroidism 04/14/2005 05/30/2014 Polymyalgia rheumatica 09/01 documented as of this encounter (statuses as of 05/08/2023) [facility]* Problem Noted Date Diagnosed Date Resolved Date Right hip pain 02/03/2022 09/26/2022 Encounter for support and co ordination of transition of care 06/26/2021 08/30/2021 Special screening for malign ant neoplasms, colon 07/13/2014 07/13/2014 Anemia, unspecified 05/26/2008 09/26/19 23 Thrombocytopenia, unspecified 05/26/2008 09/26/2022 Overview: Mild but progressive; negative iron studies 05/31 ? Myelodysplasia? May eventually need bone marrow bx Other specified acquired hypothyroidism 04/14/2005 05/30/2014 Polymyalgia rheumatica 09/01 documented as of this encounter (statuses as of 05/30/2023) [facility]* Problem Noted Date Diagnosed Date Resolved Date Right hip pain 02/03/2022 09/26/2022 Encounter for support and co ordination of transition of care 06/26/2021 08/30/2021 Special screening for malign ant neoplasms, colon 07/13/2014 07/13/2014 Anemia, unspecified 05/26/2008 09/26/19 23 Thrombocytopenia, unspecified 05/26/2008 09/26/2022 Overview: Mild but progressive; negative iron studies 10/08 ? Myelodysplasia? May eventually need bone marrow bx Other specified acquired hypothyroidism 04/14/2005 05/30/2014 Polymyalgia rheumatica 09/01 documented as of this encounter (statuses as of 05/30/2023) [facility]* Problem Noted Date Diagnosed Date Resolved Date Right hip pain 02/03/2022 09/26/2022 Encounter for support and co ordination of transition of care 06/26/2021 08/30/2021 Special screening for malign ant neoplasms, colon 07/13/2014 07/13/2014 Anemia, unspecified 05/26/2008 09/26/19 23 Thrombocytopenia, unspecified 05/26/2008 09/26/2022 Overview: Mild but progressive; negative iron studies 05/31 ? Myelodysplasia? May eventually need bone marrow bx Other specified acquired hypothyroidism 04/14/2005 05/30/2014 Polymyalgia rheumatica 09/01 documented as of this encounter (statuses as of 06/05/2023) [facility]* Problem Noted Date Diagnosed Date Resolved Date Right hip pain 02/03/2022 09/26/2022 Encounter for support and co ordination of transition of care 06/26/2021 08/30/2021 Special screening for malign ant neoplasms, colon 07/13/2014 07/13/2014 Anemia, unspecified 05/26/2008 09/26/19 23 Thrombocytopenia, unspecified 05/26/2008 09/26/2022 Overview: Mild but progressive; negative iron studies 05/31 ? Myelodysplasia? May eventually need bone marrow bx Other specified acquired hypothyroidism 04/14/2005 05/30/2014 Polymyalgia rheumatica 09/01 documented as of this encounter (statuses as of 06/18/2023) [facility]* Problem Noted Date Diagnosed Date Resolved Date Right hip pain 02/03/2022 09/26/2022 Encounter for support and co ordination of transition of care 06/26/2021 08/30/2021 Special screening for malign ant neoplasms, colon 07/13/2014 07/13/2014 Anemia, unspecified 05/26/2008 09/26/19 23 Thrombocytopenia, unspecified 05/26/2008 09/26/2022 Overview: Mild but progressive; negative iron studies 05/31 ? Myelodysplasia? May eventually need bone marrow bx Other specified acquired hypothyroidism 04/14/2005 05/30/2014 Polymyalgia rheumatica 09/01 documented as of this encounter (statuses as of 06/28/2023) [facility]* Problem Noted Date Diagnosed Date Resolved Date Right hip pain 02/03/2022 09/26/2022 Encounter for support and co ordination of transition of care 06/26/2021 08/30/2021 Special screening for malign ant neoplasms, colon 07/13/2014 07/13/2014 Anemia, unspecified 05/26/2008 09/26/19 23 Thrombocytopenia, unspecified 05/26/2008 09/26/2022 Overview: Mild but progressive; negative iron studies 05/31 ? Myelodysplasia? May eventually need bone marrow bx Other specified acquired hypothyroidism 04/14/2005 05/30/2014 Polymyalgia rheumatica 09/01 documented as of this encounter (statuses as of 07/31/2023) [facility]* Problem Noted Date Diagnosed Date Resolved Date Right hip pain 02/03/2022 09/26/2022 Encounter for support and co ordination of transition of care 06/26/2021 08/30/2021 Special screening for malign ant neoplasms, colon 07/13/2014 07/13/2014 Anemia, unspecified 05/26/2008 09/26/19 23 Thrombocytopenia, unspecified 05/26/2008 09/26/2022 Overview: Mild but progressive; negative iron studies 05/31 ? Myelodysplasia? May eventually need bone marrow bx Other specified acquired hypothyroidism 04/14/2005 05/30/2014 Polymyalgia rheumatica 09/01 documented as of this encounter (statuses as of 09/25/2023) [facility]* Problem Noted Date Diagnosed Date Resolved Date Right hip pain 02/03/2022 09/26/2022 Encounter for support and co ordination of transition of care 06/26/2021 08/30/2021 Special screening for malign ant neoplasms, colon 07/13/2014 07/13/2014 Anemia, unspecified 05/26/2008 09/26/19 23 Thrombocytopenia, unspecified 05/26/2008 09/26/2022 Overview: Mild but progressive; negative iron studies 10 ? Myelodysplasia? May eventually need bone marrow bx Other specified acquired hypothyroidism 04/14/2005 05/30/2014 Polymyalgia rheumatica 09/01 documented as of this encounter (statuses as of 09/30/2023) [facility]* Problem Noted Date Diagnosed Date Resolved Date Right hip pain 02/03/2022 09/26/2022 Encounter for support and co ordination of transition of care 06/26/2021 08/30/2021 Special screening for malign ant neoplasms, colon 07/13/2014 07/13/2014 Anemia, unspecified 05/26/2008 09/26/19 23 Thrombocytopenia, unspecified 05/26/2008 09/26/2022 Overview: Mild but progressive; negative iron studies 05/31 ? Myelodysplasia? May eventually need bone marrow bx Other specified acquired hypothyroidism 04/14/2005 05/30/2014 Polymyalgia rheumatica 09/01 documented as of this encounter (statuses as of 10/01/2023) [facility]* Problem Noted Date Diagnosed Date Resolved Date Right hip pain 02/03/2022 09/26/2022 Encounter for support and co ordination of transition of care 06/26/2021 08/30/2021 Special screening for malign ant neoplasms, colon 07/13/2014 07/13/2014 Anemia, unspecified 05/26/2008 09/26/19 23 Thrombocytopenia, unspecified 05/26/2008 09/26/2022 Overview: Mild but progressive; negative iron studies 10 ? Myelodysplasia? May eventually need bone marrow bx Other specified acquired hypothyroidism 04/14/2005 05/30/2014 Polymyalgia rheumatica 09/01 documented as of this encounter (statuses as of 10/02/2023) [facility]* Problem Noted Date Diagnosed Date Resolved Date Right hip pain 02/03/2022 09/26/2022 Encounter for support and co ordination of transition of care 06/26/2021 08/30/2021 Special screening for malign ant neoplasms, colon 07/13/2014 07/13/2014 Anemia, unspecified 05/26/2008 09/26/19 23 Thrombocytopenia, unspecified 05/26/2008 09/26/2022 Overview: Mild but progressive; negative iron studies 1008 ? Myelodysplasia? May eventually need bone marrow bx Other specified acquired hypothyroidism 04/14/2005 05/30/2014 Polymyalgia rheumatica 09/01 documented as of this encounter (statuses as of 10/11/2023) [facility]* Problem Noted Date Diagnosed Date Resolved Date Right hip pain 02/03/2022 09/26/2022 Encounter for support and co ordination of transition of care 06/26/2021 08/30/2021 Special screening for malign ant neoplasms, colon 07/13/2014 07/13/2014 Anemia, unspecified 05/26/2008 09/26/19 23 Thrombocytopenia, unspecified 05/26/2008 09/26/2022 Overview: Mild but progressive; negative iron studies 05/31 ? Myelodysplasia? May eventually need bone marrow bx Other specified acquired hypothyroidism 04/14/2005 05/30/2014 Polymyalgia rheumatica 09/01 documented as of this encounter (statuses as of 10/12/2023) [facility]* Problem Noted Date Diagnosed Date Resolved Date Right hip pain 02/03/2022 09/26/2022 Encounter for support and co ordination of transition of care 06/26/2021 08/30/2021 Special screening for malign ant neoplasms, colon 07/13/2014 07/13/2014 Anemia, unspecified 05/26/2008 09/26/19 23 Thrombocytopenia, unspecified 05/26/2008 09/26/2022 Overview: Mild but progressive; negative iron studies 10/08 ? Myelodysplasia? May eventually need bone marrow bx Other specified acquired hypothyroidism 04/14/2005 05/30/2014 Polymyalgia rheumatica 09/01 documented as of this encounter (statuses as of 10/13/2023) [facility] History of Past illness Narrative* Problem Noted Date Diagnosed Date Resolved Date Right hip pain 02/03/2022 09/26/2022 Encounter for support and co ordination of transition of care 06/26/2021 08/30/2021 Special screening for malign ant neoplasms, colon 07/13/2014 07/13/2014 Anemia, unspecified 05/26/2008 09/26/19 23 Thrombocytopenia, unspecified 05/26/2008 09/26/2022 Overview: Mild but progressive; negative iron studies 10 ? Myelodysplasia? May eventually need bone marrow bx Other specified acquired hypothyroidism 04/14/2005 05/30/2014 Polymyalgia rheumatica 09/01 documented as of this encounter (statuses as of 10/14/2023) [facility] History of Past illness Narrative* Problem Noted Date Diagnosed Date Resolved Date Right hip pain 02/03/2022 09/26/2022 Encounter for support and co ordination of transition of care 06/26/2021 08/30/2021 Special screening for malign ant neoplasms, colon 07/13/2014 07/13/2014 Anemia, unspecified 05/26/2008 09/26/19 23 Thrombocytopenia, unspecified 05/26/2008 09/26/2022 Overview: Mild but progressive; negative iron studies 05/31 ? Myelodysplasia? May eventually need bone marrow bx Other specified acquired hypothyroidism 04/14/2005 05/30/2014 Polymyalgia rheumatica 09/01 documented as of this encounter (statuses as of 10/15/2023) [facility] History of Past illness Narrative* Problem Noted Date Diagnosed Date Resolved Date Right hip pain 02/03/2022 09/26/2022 Encounter for support and co ordination of transition of care 06/26/2021 08/30/2021 Special screening for malign ant neoplasms, colon 07/13/2014 07/13/2014 Anemia, unspecified 05/26/2008 09/26/19 23 Thrombocytopenia, unspecified 05/26/2008 09/26/2022 Overview: Mild but progressive; negative iron studies 05/31 ? Myelodysplasia? May eventually need bone marrow bx Other specified acquired hypothyroidism 04/14/2005 05/30/2014 Polymyalgia rheumatica 09/01 documented as of this encounter (statuses as of 10/16/2023) [facility] History of Past illness Narrative* Problem Noted Date Diagnosed Date Resolved Date Right hip pain 02/03/2022 09/26/2022 Encounter for support and co ordination of transition of care 06/26/2021 08/30/2021 Special screening for malign ant neoplasms, colon 07/13/2014 07/13/2014 Anemia, unspecified 05/26/2008 09/26/19 23 Thrombocytopenia, unspecified 05/26/2008 09/26/2022 Overview: Mild but progressive; negative iron studies 05/31 ? Myelodysplasia? May eventually need bone marrow bx Other specified acquired hypothyroidism 04/14/2005 05/30/2014 Polymyalgia rheumatica 09/01 documented as of this encounter (statuses as of 10/21/2023) [facility] History of Past illness Narrative* Problem Noted Date Diagnosed Date Resolved Date Right hip pain 02/03/2022 09/26/2022 Encounter for support and co ordination of transition of care 06/26/2021 08/30/2021 Special screening for malign ant neoplasms, colon 07/13/2014 07/13/2014 Anemia, unspecified 05/26/2008 09/26/19 23 Thrombocytopenia, unspecified 05/26/2008 09/26/2022 Overview: Mild but progressive; negative iron studies 05/31 ? Myelodysplasia? May eventually need bone marrow bx Other specified acquired hypothyroidism 04/14/2005 05/30/2014 Polymyalgia rheumatica 09/01 documented as of this encounter (statuses as of 10/23/2023) [facility] of Past illness Narrative* Problem Noted Date Diagnosed Date Resolved Date Right hip pain 02/03/2022 09/26/2022 Encounter for support and co ordination of transition of care 06/26/2021 08/30/2021 Special screening for malign ant neoplasms, colon 07/13/2014 07/13/2014 Anemia, unspecified 05/26/2008 09/26/19 23 Thrombocytopenia, unspecified 05/26/2008 09/26/2022 Overview: Mild but progressive; negative iron studies 1008 ? Myelodysplasia? May eventually need bone marrow bx Other specified acquired hypothyroidism 04/14/2005 05/30/2014 Polymyalgia rheumatica 09/01 documented as of this encounter (statuses as of 10/29/2023) [facility] History of Past illness Narrative* Problem Noted Date Diagnosed Date Resolved Date Right hip pain 02/03/2022 09/26/2022 Encounter for support and co ordination of transition of care 06/26/2021 08/30/2021 Special screening for malign ant neoplasms, colon 07/13/2014 07/13/2014 Anemia, unspecified 05/26/2008 09/26/19 23 Thrombocytopenia, unspecified 05/26/2008 09/26/2022 Overview: Mild but progressive; negative iron studies 05/31 ? Myelodysplasia? May eventually need bone marrow bx Other specified acquired hypothyroidism 04/14/2005 05/30/2014 Polymyalgia rheumatica 09/01 documented as of this encounter (statuses as of 10/30/2023) [facility] History of Past illness Narrative* Problem Noted Date Diagnosed Date Resolved Date Right hip pain 02/03/2022 09/26/2022 Encounter for support and co ordination of transition of care 06/26/2021 08/30/2021 Special screening for malign ant neoplasms, colon 07/13/2014 07/13/2014 Anemia, unspecified 05/26/2008 09/26/19 23 Thrombocytopenia, unspecified 05/26/2008 09/26/2022 Overview: Mild but progressive; negative iron studies 10/08 ? Myelodysplasia? May eventually need bone marrow bx Other specified acquired hypothyroidism 04/14/2005 05/30/2014 Polymyalgia rheumatica 09/01 documented as of this encounter (statuses as of 11/23/2023) [facility] History of Past illness Narrative* Problem Noted Date Diagnosed Date Resolved Date Right hip pain 02/03/2022 09/26/2022 Encounter for support and co ordination of transition of care 06/26/2021 08/30/2021 Special screening for malign ant neoplasms, colon 07/13/2014 07/13/2014 Anemia, unspecified 05/26/2008 09/26/19 23 Thrombocytopenia, unspecified 05/26/2008 09/26/2022 Overview: Mild but progressive; negative iron studies 05/31 ? Myelodysplasia? May eventually need bone marrow bx Other specified acquired hypothyroidism 04/14/2005 05/30/2014 Polymyalgia rheumatica 09/01 documented as of this encounter (statuses as of 11/24/2023) [facility] History of Past illness Narrative* Problem Noted Date Diagnosed Date Resolved Date Right hip pain 02/03/2022 09/26/2022 Encounter for support and co ordination of transition of care 06/26/2021 08/30/2021 Special screening for malign ant neoplasms, colon 07/13/2014 07/13/2014 Anemia, unspecified 05/26/2008 09/26/19 23 Thrombocytopenia, unspecified 05/26/2008 09/26/2022 Overview: Mild but progressive; negative iron studies 05/31 ? Myelodysplasia? May eventually need bone marrow bx Other specified acquired hypothyroidism 04/14/2005 05/30/2014 Polymyalgia rheumatica 09/01 documented as of this encounter (statuses as of 12/04/2023) [facility] Miscellaneous Notes* Telephone Encounter - Geena Darling RAMANDEEP - 02/03/2022 12:50 PM EDT Patient has been identified by name and date of : Yes Pending Prescriptions Disp Refills PANTOPRAZOLE 20 MG TABLET,DELAYED RELEASE 180 tablet 1 Sig: Take 2 tablets by mouth once daily. MAGDALENE: No NITROGLYCERIN 0.4 MG SUBLINGUAL TABLET 1 Bottle of 25 1 Sig: Dissolve 1 tablet under the tongue as directed. DISSOLVE ONE(1) TABLET UNDER THE TOUNGUE NEEDED FOR CHEST PAIN,EVERY 5 MIN X3 MAGDALENE: No RX INSTRUCTIONS: Patient aware RX will be sent to pharmacy. No need to notify patient. Geena Darling LPN [facility] History of Present illness Narrative* Brent High, PT - 02/03/2022 9:34 AM EDT Episode Visit Count: 1 Therapist That Will Oversee The Plan Of Care: Brent High Start of Care Date: 02/03/22 Onset Date: 02/03/21 Plan of Care Certification Date: 02/03/22 Next Certification Due Date: 03/10/22 Patient Identified by Name and Date of : Yes REHABILITATION AND SPORTS THERAPY PHYSICAL THERAPY EVALUATION PLAN OF CARE: Assessment: Angie Dutton presents with chief complaint of R hip and groin pain that interferes withwalking;standing . He presents with impairments in ADL's, gait, independence in exercise, overall function, range of motion and strength. Prognosis for therapy is Good due to: current objective clinical presentation . Pt demonstrates pain with PROM pof the R hip and limited ROM that is painful at end ranges. He will benefit from skilled therapy services to meet the goals established for this planof care as noted below. Goals for Episode of Care: created on 02/03/22 through 03/31/22 Pt will report decreased pain with jogging Pt will demo 4+/5 glute max strength for improved stability at the R hip joint [place] in home exercise program. Normal gait. Pt will demo improved hip ER and IR by 10 degrees or more for improved jointed mechanics and decreased pain Patient Goals: Pt would like to job more Planned Interventions, Frequency, and Duration: Current Frequency: 1x/week Duration: 4 weeks Total Number of Visits Planned: 4 Planned Treatment Interventions: Therapeutic exercise (02816);Neuromuscular re- education (04128);Manual therapy (42437);Gait Training (63204);Patient/Family/Caregiver Education;Ultrasound (69903) PLAN FOR NEXT VISIT: Assess reaction to HEP. Possibly add stool swivel exercise. Hip distraction mobs. Patient demonstrates good understanding of plan of care and treatment. The above goals and plan of care were discussed and agreed upon by patient/family. SUBJECTIVE: Angie Dutton is a 81 year old male seen today for R hip pain. Limping and pain has gotten worse in the past 3 months. Feels like something is slipping out of place and hip leg feels like it catches. Pt has back pain a few weeks now. Patient Goals: Pt would like to job more Functional Limitations: walking;standing Prior Level of Function: Independent without limitations Relevant History Preferred Language: Sudanese Intake Information: Prescription present Previous Treatment: (tylennol) Pain: Pain Pain Level: 0 (sitting; 10/10 pain when it kicks in) Pain Location: Hip - Right Description: Sharp Frequency: Intermittent Post Treatment Pain Post Treatment Pain Level: (Not rated) Post Treatment Pain Location: Hip - Right PROMIS Scales Higher is Better 11/01/2019 Phys Func - Score 51 (within normal limits) Phys Func - Percentile 54 % Social Roles - Score 44 (mild dysfunction) Social Role - Percentile 27 % GH Physical - Score Incomplete GH Mental - Score Incomplete T-scores: mean of general population = 50. 5 points is clinically meaningfully difference Percentiles provide an indication of how the patient's score ranks in relation to the general population. Higher percentile rankings indicate better function/quality of life. 50th percentile is the average of the general population and indicates half of respondents had a worse score. Lower is Better 11/01/2019 Fatigue - Score 59 (mild) Fatigue - Percentile 18 % T-scores: mean of general population = 50. 5 points is clinically meaningfully difference Percentiles provide an indication of how the patient's score ranks in relation to the general population. Higher percentile rankings indicate better function/quality of life. 50th percentile is the average of the general population and indicates half of respondents had a worse score. OBJECTIVE MEASURES WITH LEVEL OF FUNCTION: Lumbar Spine AROM Lumbar Flexion: Normal Lumbar Extension: Moderate limitation Lumbar R Side-Bend: Normal Lumbar L Side-Bend: Normal LE AROM R Hip Flexion: 110 Degrees (Painful) R Hip Internal Rotation: 3 Degrees R Hip External Rotation: 20 Degrees Lumbar Spine Evaluated?: Yes LE Flexibility Flexibility: Hip Adductor R Adductor Flexibility: 20 degrees of hip abd available in supine L Adductor Flexibility: 20 degrees of hip abd available in supine LE Strength R Hip Extension: 4-/5 R Hip Flexion (L2): 4+/5 R Hip ABduction: (unable to reach testing position due to hip tightness) R Hip External Rotation: 5/5 R Knee Flexion: 5/5 Gait Gait: Independent Gait Distance (feet): 100 Gait Device: None Gait Deviations: Right Lower Extremity Gait Observation: Antalgic gait patterns with decreased WB and time spent on RLE Education: Education Learning Preferences: Demonstration;Explanation;Performance;Printed Materials Barriers: None Learning/educational needs: Home exercise program;Plan of Care Education Provided: Yes, see treatment interventions for education provided Education Provided To: Patient Education Mode/Type: Demonstration;Explanation/Discussion;Literature/Printed Materials;Performance Response to Education/Teach Back: States/Identifies;Return Demonstration TREATMENT: PT Treatment Interventions: Therapeutic Exercise Evaluation Therapeutic Exercise: 1: Discussed therapy goals, exam findings and purpose of the HEP. 2: Bridge with strap assist x 5 reps 3: Supine butterfly stretch x 30 seconds Skilled Intervention: Patient was educated in proper exercise technique and purpose for exercises. Correct performance of therapeutic exercises was facilitated with verbal and visual cuing. Billing * Evaluation Moderate Complexity: 1 Unit Therapeutic Exercise Treatment Minutes: 15 Total Treatment Time Minutes (timed/untimed): 47 Brent High PT documented in [facility] encounterThe [facility] History of Present illness Narrative* RT Lacho(R) - 02/03/2022 8:20 AM EDT Radiology Service Progress Note PATIENT NAME: Angie Dutton DATE OF SERVICE: February 03, 2022 TIME: 8:33 AM PATIENT IDENTITY VERIFICATION COMPLETED USING TWO (2) IDENTIFIERS: Name and Date of confirmedby patient verbally. FALL SCREENING: Has the patient had 2 falls in the last year or 1 fall with injury or currently using an Ambulatory Assistive Device (Walker, Cane, Wheelchair, Crutches, etc.)? No PATIENT GENDER DATA: Male PATIENT RELEVANT IMPLANT DATA REVIEWED: Not Applicable RADIOLOGY DEPARTMENT: General X-ray: Exam(s) Completed: Pelvis X-Ray: Pelvis with Hip Right PERIPHERAL IV DATA: Not applicable SIGNED BY: RT Lacho(R) February 03, 2022 8:33 AM documented in this encounterCleveland [id number] Miscellaneous Notes* Telephone Encounter - Lizeth Saini PA-C - 12/18/2021 8:20 PM EDT Called home cell. No answer, message to left to return call at office tomorrow. Aidan Saini PA-C * Telephone Encounter - Zuri Diaz - 12/18/2021 3:13 PM EDT Spoke with patient about r/s appt due to template changes. Patient is concerned and confused about what is going on with his and when she will be returning home. Patient asked if we could have Aidan Saini reach out to assist his confusion. [facility] History of Present illness Narrative* Shawna Segovia RT(Zoie) - 09/13/2021 12:10 PM EST Radiology Service Progress Note PATIENT NAME: Angie Dutton DATE OF SERVICE: September 13, 2021 TIME: 12:09 PM PATIENT IDENTITY VERIFICATION COMPLETED USING TWO (2) IDENTIFIERS: Name and Date of confirmedby patient verbally. FALL SCREENING: Has the patient had 2 falls in the last year or 1 fall with injury or currently using an Ambulatory Assistive Device (Walker, Cane, Wheelchair, Crutches, etc.)? No PATIENT GENDER DATA: Male PATIENT RELEVANT IMPLANT DATA REVIEWED: Yes RADIOLOGY DEPARTMENT: General X-ray: Exam(s) Completed: Chest X-Ray PERIPHERAL IV DATA: Not applicable SIGNED BY: RT Mariusz(Zoie) September 13, 2021 12:09 PM documented in [facility] encounterThe [facility] History of Past illness Narrative* Problem Noted Date Resolved Date Encounter for support and coordination of transi tion of care 06/26/2021 08/30/2021 Special screening for malignant neoplasms, colon 07/13/2014 07/13/2014 Other specified acquired hypothyroidism 04/14/20 05 05/30/2014 Polymyalgia rheumatica 0 documented as of this encounter (statuses as of 12/18/2021) [address]03-2021 History of Past illness Narrative* Problem Noted Date Resolved Date Encounter for support and coordination of transi tion of care 06/26/2021 08/30/2021 Special screening for malignant neoplasms, colon 07/13/2014 07/13/2014 Other specified acquired hypothyroidism 04/14/20 05 05/30/2014 Polymyalgia rheumatica 0 documented as of this encounter (statuses as of 12/19/2021) [facility] History of Past illness Narrative* Problem Noted Date Resolved Date Encounter for support and coordination of transi tion of care 06/26/2021 08/30/2021 Special screening for malignant neoplasms, colon 07/13/2014 07/13/2014 Other specified acquired hypothyroidism 04/14/20 05 05/30/2014 Polymyalgia rheumatica 0 documented as of this encounter (statuses as of 02/03/2022) [address]03-2021 History of Past illness Narrative* Problem Noted Date Resolved Date Encounter for support and coordination of transi tion of care 06/26/2021 08/30/2021 Special screening for malignant neoplasms, colon 07/13/2014 07/13/2014 Other specified acquired hypothyroidism 04/14/20 05 05/30/2014 Polymyalgia rheumatica 0 documented as of this encounter (statuses as of 02/04/2022) [address]03-2021 History of Past illness Narrative* Problem Noted Date Resolved Date Encounter for support and coordination of transi tion of care 06/26/2021 08/30/2021 Special screening for malignant neoplasms, colon 07/13/2014 07/13/2014 Other specified acquired hypothyroidism 04/14/20 05 05/30/2014 Polymyalgia rheumatica 0 documented as of this encounter (statuses as of 02/04/2022) [address]03-2021 History of Past illness Narrative* Problem Noted Date Resolved Date Encounter for support and coordination of transi tion of care 06/26/2021 08/30/2021 Special screening for malignant neoplasms, colon 07/13/2014 07/13/2014 Other specified acquired hypothyroidism 04/14/20 05 05/30/2014 Polymyalgia rheumatica 0 documented as of this encounter (statuses as of 02/06/2022) [facility] of Past illness Narrative* Problem Noted Date Resolved Date Encounter for support and coordination of transi tion of care 06/26/2021 08/30/2021 Special screening for malignant neoplasms, colon 07/13/2014 07/13/2014 Other specified acquired hypothyroidism 04/14/20 05 05/30/2014 Polymyalgia rheumatica 0 documented as of this encounter (statuses as of 02/10/2022) [facility] of Past illness Narrative* Problem Noted Date Resolved Date Encounter for support and coordination of transi tion of care 06/26/2021 08/30/2021 Special screening for malignant neoplasms, colon 07/13/2014 07/13/2014 Other specified acquired hypothyroidism 04/14/20 05 05/30/2014 Polymyalgia rheumatica 0 documented as of this encounter (statuses as of 02/12/2022) [facility] of Past illness Narrative* Problem Noted Date Resolved Date Encounter for support and coordination of transi tion of care 06/26/2021 08/30/2021 Special screening for malignant neoplasms, colon 07/13/2014 07/13/2014 Other specified acquired hypothyroidism 04/14/20 05 05/30/2014 Polymyalgia rheumatica 0 documented as of this encounter (statuses as of 02/27/2022) [facility] of Past illness Narrative* Problem Noted Date Resolved Date Encounter for support and coordination of transi tion of care 06/26/2021 08/30/2021 Special screening for malignant neoplasms, colon 07/13/2014 07/13/2014 Other specified acquired hypothyroidism 04/14/20 05 05/30/2014 Polymyalgia rheumatica 0 documented as of this encounter (statuses as of 03/06/2022) [facility] of Past illness Narrative* Problem Noted Date Resolved Date Encounter for support and coordination of transi tion of care 06/26/2021 08/30/2021 Special screening for malignant neoplasms, colon 07/13/2014 07/13/2014 Other specified acquired hypothyroidism 04/14/20 05 05/30/2014 Polymyalgia rheumatica 0 documented as of this encounter (statuses as of 03/13/2022) [facility] of Past illness Narrative* Problem Noted Date Resolved Date Encounter for support and coordination of transi tion of care 06/26/2021 08/30/2021 Special screening for malignant neoplasms, colon 07/13/2014 07/13/2014 Other specified acquired hypothyroidism 04/14/20 05 05/30/2014 Polymyalgia rheumatica 0 documented as of this encounter (statuses as of 03/20/2022) [facility] of Past illness Narrative* Problem Noted Date Resolved Date Encounter for support and coordination of transi tion of care 06/26/2021 08/30/2021 Special screening for malignant neoplasms, colon 07/13/2014 07/13/2014 Other specified acquired hypothyroidism 04/14/20 05 05/30/2014 Polymyalgia rheumatica 0 documented as of this encounter (statuses as of 03/21/2022) [facility] Narrative* Problem Noted Date Resolved Date Encounter for support and coordination of transi tion of care 06/26/2021 08/30/2021 Special screening for malignant neoplasms, colon 07/13/2014 07/13/2014 Other specified acquired hypothyroidism 04/14/20 05 05/30/2014 Polymyalgia rheumatica 0 documented as of this encounter (statuses as of 03/24/2022) [facility] of Past illness Narrative* Problem Noted Date Resolved Date Encounter for support and coordination of transi tion of care 06/26/2021 08/30/2021 Special screening for malignant neoplasms, colon 07/13/2014 07/13/2014 Other specified acquired hypothyroidism 04/14/20 05 05/30/2014 Polymyalgia rheumatica 0 documented as of this encounter (statuses as of 04/21/2022) [facility] Narrative* Problem Noted Date Resolved Date Encounter for support and coordination of transi tion of care 06/26/2021 08/30/2021 Special screening for malignant neoplasms, colon 07/13/2014 07/13/2014 Other specified acquired hypothyroidism 04/14/20 05 05/30/2014 Polymyalgia rheumatica 0 documented as of this encounter (statuses as of 04/22/2022) [facility] Past illness Narrative* Problem Noted Date Resolved Date Encounter for support and coordination of transi tion of care 06/26/2021 08/30/2021 Special screening for malignant neoplasms, colon 07/13/2014 07/13/2014 Other specified acquired hypothyroidism 04/14/20 05 05/30/2014 Polymyalgia rheumatica 0 documented as of this encounter (statuses as of 05/02/2022) [facility] of Past illness Narrative* Problem Noted Date Resolved Date Encounter for support and coordination of transi tion of care 06/26/2021 08/30/2021 Special screening for malignant neoplasms, colon 07/13/2014 07/13/2014 Other specified acquired hypothyroidism 04/14/20 05 05/30/2014 Polymyalgia rheumatica 0 documented as of this encounter (statuses as of 05/19/2022) [facility] Narrative* Problem Noted Date Resolved Date Encounter for support and coordination of transi tion of care 06/26/2021 08/30/2021 Special screening for malignant neoplasms, colon 07/13/2014 07/13/2014 Other specified acquired hypothyroidism 04/14/20 05 05/30/2014 Polymyalgia rheumatica 0 documented as of this encounter (statuses as of 05/20/2022) [facility] Narrative* Problem Noted Date Resolved Date Encounter for support and coordination of transi tion of care 06/26/2021 08/30/2021 Special screening for malignant neoplasms, colon 07/13/2014 07/13/2014 Other specified acquired hypothyroidism 04/14/20 05 05/30/2014 Polymyalgia rheumatica 0 documented as of this encounter (statuses as of 05/24/2022) [facility] Narrative* Problem Noted Date Resolved Date Encounter for support and coordination of transi tion of care 06/26/2021 08/30/2021 Special screening for malignant neoplasms, colon 07/13/2014 07/13/2014 Other specified acquired hypothyroidism 04/14/20 05 05/30/2014 Polymyalgia rheumatica 0 documented as of this encounter (statuses as of 05/28/2022) [facility] Narrative* Problem Noted Date Resolved Date Encounter for support and coordination of transi tion of care 06/26/2021 08/30/2021 Special screening for malignant neoplasms, colon 07/13/2014 07/13/2014 Other specified acquired hypothyroidism 04/14/20 05 05/30/2014 Polymyalgia rheumatica 0 documented as of this encounter (statuses as of 06/04/2022) [facility]11-03-2021 History of Past illness Narrative* Problem Noted Date Resolved Date Encounter for support and coordination of transi tion of care 06/26/2021 08/30/2021 Special screening for malignant neoplasms, colon 07/13/2014 07/13/2014 Other specified acquired hypothyroidism 04/14/20 05 05/30/2014 Polymyalgia rheumatica 0 documented as of this encounter (statuses as of 06/09/2022) [facility]-03-2021 History of Past illness Narrative* Problem Noted Date Resolved Date Encounter for support and coordination of transi tion of care 06/26/2021 08/30/2021 Special screening for malignant neoplasms, colon 07/13/2014 07/13/2014 Other specified acquired hypothyroidism 04/14/20 05 05/30/2014 Polymyalgia rheumatica 0 documented as of this encounter (statuses as of 06/16/2022) [facility]21 History of Past illness Narrative* Problem Noted Date Resolved Date Encounter for support and coordination of transi tion of care 06/26/2021 08/30/2021 Special screening for malignant neoplasms, colon 07/13/2014 07/13/2014 Other specified acquired hypothyroidism 04/14/20 05 05/30/2014 Polymyalgia rheumatica 0 documented as of this encounter (statuses as of 06/17/2022) [facility] History of Past illness Narrative* Problem Noted Date Resolved Date Encounter for support and coordination of transi tion of care 06/26/2021 08/30/2021 Special screening for malignant neoplasms, colon 07/13/2014 07/13/2014 Other specified acquired hypothyroidism 04/14/20 05 05/30/2014 Polymyalgia rheumatica 0 documented as of this encounter (statuses as of 06/18/2022) [facility] History of Past illness Narrative* Problem Noted Date Resolved Date Encounter for support and coordination of transi tion of care 06/26/2021 08/30/2021 Special screening for malignant neoplasms, colon 07/13/2014 07/13/2014 Other specified acquired hypothyroidism 04/14/20 05 05/30/2014 Polymyalgia rheumatica 0 documented as of this encounter (statuses as of 07/16/2022) [facility] History of Past illness Narrative* Problem Noted Date Resolved Date Encounter for support and coordination of transi tion of care 06/26/2021 08/30/2021 Special screening for malignant neoplasms, colon 07/13/2014 07/13/2014 Other specified acquired hypothyroidism 04/14/20 05 05/30/2014 Polymyalgia rheumatica 0 documented as of this encounter (statuses as of 07/25/2022) [facility] History of Past illness Narrative* Problem Noted Date Resolved Date Encounter for support and coordination of transi tion of care 06/26/2021 08/30/2021 Special screening for malignant neoplasms, colon 07/13/2014 07/13/2014 Other specified acquired hypothyroidism 04/14/20 05 05/30/2014 Polymyalgia rheumatica 0 documented as of this encounter (statuses as of 08/04/2022) [facility] History of Past illness Narrative* Problem Noted Date Resolved Date Encounter for support and coordination of transi tion of care 06/26/2021 08/30/2021 Special screening for malignant neoplasms, colon 07/13/2014 07/13/2014 Other specified acquired hypothyroidism 04/14/20 05 05/30/2014 Polymyalgia rheumatica 0 documented as of this encounter (statuses as of 08/13/2022) [facility] History of Past illness Narrative* Problem Noted Date Resolved Date Encounter for support and coordination of transi tion of care 06/26/2021 08/30/2021 Special screening for malignant neoplasms, colon 07/13/2014 07/13/2014 Other specified acquired hypothyroidism 04/14/20 05 05/30/2014 Polymyalgia rheumatica 0 documented as of this encounter (statuses as of 08/13/2022) [facility] History of Past illness Narrative* Problem Noted Date Resolved Date Encounter for support and coordination of transi tion of care 06/26/2021 08/30/2021 Special screening for malignant neoplasms, colon 07/13/2014 07/13/2014 Other specified acquired hypothyroidism 04/14/20 05 05/30/2014 Polymyalgia rheumatica 0 documented as of this encounter (statuses as of 08/16/2022) [facility] History of Past illness Narrative* Problem Noted Date Resolved Date Encounter for support and coordination of transi tion of care 06/26/2021 08/30/2021 Special screening for malignant neoplasms, colon 07/13/2014 07/13/2014 Other specified acquired hypothyroidism 04/14/20 05 05/30/2014 Polymyalgia rheumatica 0 documented as of this encounter (statuses as of 08/17/2022) [address]03-2021 History of Past illness Narrative* Problem Noted Date Resolved Date Encounter for support and coordination of transi tion of care 06/26/2021 08/30/2021 Special screening for malignant neoplasms, colon 07/13/2014 07/13/2014 Other specified acquired hypothyroidism 04/14/20 05 05/30/2014 Polymyalgia rheumatica 0 documented as of this encounter (statuses as of 09/02/2022) [facility] History of Past illness Narrative* Problem Noted Date Resolved Date Encounter for support and coordination of transi tion of care 06/26/2021 08/30/2021 Special screening for malignant neoplasms, colon 07/13/2014 07/13/2014 Other specified acquired hypothyroidism 04/14/20 05 05/30/2014 Polymyalgia rheumatica 0 documented as of this encounter (statuses as of 09/03/2022) [facility] History of Past illness Narrative* Problem Noted Date Resolved Date Encounter for support and coordination of transi tion of care 06/26/2021 08/30/2021 Special screening for malignant neoplasms, colon 07/13/2014 07/13/2014 Other specified acquired hypothyroidism 04/14/20 05 05/30/2014 Polymyalgia rheumatica 0 documented as of this encounter (statuses as of 09/24/2022) [facility]09-29-2021 Miscellaneous Notes* Telephone Encounter - Xander Orellana LPN - 05/22/2021 11:47 AM EDT TC to Elzbieta, she states sx started after taking the medication. Elzbieta states pt took his medication mid-day then pt drank some homemade grape juice. She states pt then told her he felt like he had the flu, it hid him suddenly. Elzbieta states pt is feeling much better today, he has been able to eat. No nausea or vomiting today. No fever. He has been up and around today, wants to mow the yard. Advised pt ok to mow, but do not over exert self. He verbalized understanding. Xander Orellana LPN * Telephone Encounter - Lizeth Saini PA-C - 05/21/2021 4:55 PM EDT Did these sx start before or after he took medication? Concerning with extensive rash which may have secondary infection. Symptoms also could represent Covid -19 or other viral infection, especially with vomiting and diarrhea. Thanks, Aidan Saini PA-C * Telephone Encounter - Tg Slater LPN - 05/21/2021 12:21 PM EDT Pt was seen & dx'd with shingles yesterday. Pt's calls & reports pt started having a fever last pm, T 101 last pm & 99.6 while on phone. Vomited 3X & had diarrhea 1 time. +nasal congestion. +nausea. Pt started taking famvir last pm, also taking tylenol & took pepto bismol today. Tg Slater LPN [facility] Author Maribel Escalera [facility] Note Date/Time November 28, 2024 4:57 pm [facility] Medical Records Department [address] [place] [id number] Counseling Note - Pharmacy 11/28/24 1617 MR#: [id number] Acct: [id number] Name: ANGIE DUTTON Rep #:[id number] : 1940 84 From: Maribel Escalera PCP: Valery Quinteros, [employer] Status:ADM JERARDO Y Location: [place] [address] Pharmacy PA Med Reconciliation Pharmacy Service has performed discharge medication reconciliation for this patient. The patient's discharge medication list was reviewed for discrepancies and discrepancies were resolved. Medications at Discharge Home Medications isosorbide mononitrate 30 mg tablet,extended release 24 hr 15 mg PO DAILY HEART 08/23/19 gabapentin 400 mg capsule 400 mg PO BID NERVE PAIN 06/25/21 ezetimibe 10 mg tablet 10 mg PO DAILY CHOLESTROL 09/24/23 apixaban 5 mg tablet (Eliquis) 5 mg PO BID CEREBRAL INFARCTION #60 tabs 09/26/23 acetaminophen 500 mg capsule 1,000 mg PO Q8H PRN fever or pain 11/07/24 acetaminophen 650 mg rectal suppository 650 mg ID Q4H PRN fever or pain 11/07/24 aluminum-magnesium hydroxide 200 mg-200 mg/5 mL oral suspension (MAG-AL) 30 ml PO Q4H PRN dyspepsia 11/07/24 amiodarone 200 mg tablet 200 mg PO DAILY AFIB 11/07/24 ascorbic acid (vitamin C) 500 mg capsule 500 mg PO BID SUPPLEMENT 11/07/24 bisacodyl 10 mg rectal suppository 10 mg ID DAILY PRN constipation 11/07/24 docusate sodium 100 mg capsule 100 mg PO DAILY CONSTIPATION 11/07/24 ferrous sulfate 325 mg (65 mg iron) tablet (FeroSul) 325 mg PO DAILY ANEMIA 11/07/24 magnesium hydroxide 400 mg/5 mL oral suspension (Milk of Magnesia) 30 ml PO DAILY PRN constipation 11/07/24 metformin 500 mg tablet,extended release 24 hr 500 mg PO DAILY DIABETES 11/07/24 ondansetron 4 mg disintegrating tablet 4 mg PO Q6H PRN nausea and vomiting 11/07/24 polyethylene glycol 3350 17 gram/dose oral powder (ClearLax) 17 g PO DAILY 11/07/24 sodium phosphates 19 gram-7 gram/118 mL enema (Fleet Enema) 118 ml ID DAILY PRN constipation 11/07/24 tamsulosin 0.4 mg capsule 0.4 mg PO QHS 11/07/24 furosemide 40 mg tablet 40 mg PO DAILY EDEMA 30 days #0 tabs 11/10/24 pantoprazole 40 mg tablet,delayed release (Protonix) 40 mg PO BID HEARTBURN 30 days #60 tabs 11/10/24 simvastatin 20 mg tablet 20 mg PO QHS 11/25/24 trazodone 150 mg tablet 75 mg PO QHS INSOMNIA 11/25/24 metoprolol succinate 50 mg tablet,extended release 24 hr 25 mg (1/2 x 50 mg) PO DAILY ANGINA #30 tabs 11/28/24 11/28/24 1617 <Electronically signed by Maribel Escalera> Date _ Maribel Escalera Cosigner Signature (if applicable): Date CC: ~ Signed [facility] Work Phone: Discharge summary Author Andrey Mitchell [facility] Note Date/Time November 10, 2024 11: 22am [facility] Medical Records Department [address] [place] [address] Transfer to Extended Care MR#: [id number] Acct: [id number] Name: ANGIE DUTTON Rep #:[id number] : 1940 84 From: Andrey steen DO PCP: PANCHITO Harris Status:ADM IN Certification of patient admission REQUIRED AT TIME OF ADMISSION. I CERTIFY THAT POST-HOSPITAL ECF SERVICES ARE REQUIRED TO BE GIVEN ON AN IN-PATIENT BASIS BECAUSE OF THE ABOVE NAMED PATIENT'S NEED FOR INTERMEDIATE CARE ON A CONTINUING BASIS FOR THE CONDITION(S) FOR WHICH HE/SHE WAS RECEIVING IN-PATIENT HOSPITAL SERVICES PRIOR TO HIS/HER TRANSFER TO THE ECF. 11/10/24 1122<Electronically signed by Andrey Mitchell DO> Diet Diet Order/Speech Therapy: 11/08/24 18:45 Diet: Regular - General Routine Orders/Code Status Routine Lab Work: CBC (Repeat in 3 to 5 days to ensure hemoglobin remains stable) Code Status: Full Code DC O2, CPAP, BIPAP needs Home O2 Discharge instructions: No Wound(s) R hip: Wound Type: Surgical Incision Therapies Weight Bearing: Full weight bearing Physical Therapy: Eval and Treat Occupational Therapy: Eval and Treat Problem/Diagnosis (1) Acute heart failure with preserved ejection fraction (HFpEF): Status: Acute Code(s): I50.31 - Acute diastolic (congestive) heart failure (2) Acute on chronic anemia: Status: Chronic Code(s): D64.9 - Anemia, unspecified Plan Patient is an 84-year-old male who presented to [facility] ED on11/07/2024 with acute on chronic anemia due to GI bleed. Hospital course as noted below. Patient stable for discharge back to SNF on 11/10. 1. Acute on chronic anemia due to GI bleed ? GI followed. Hemoglobin 6.1 on admit. S/p EGD on 11/08 that showed 3 bleedingangiodysplastic lesions in the stomach that were treated with heater probe. Patient received 3 units of blood total and hemoglobin 8.2 on day of discharge. Treated with IV PPI twice daily here, will discharge on p.o. PPI twice daily. Recommend repeat CBC in 3 to 5 days to ensure hemoglobin remains stable. Okay to resume home Eliquis on discharge but will hold Plavix as patient has only remote history of CABG and stenting recently. 2. Acute HFpEF ? Last echo in 09/2023 showed EF 65%, mild eccentric LV hypertrophy, stage II diastolic dysfunction, mild pulmonary hypertension. Patient with +3-4 lower extremity edema on exam and chest x-ray with cardiomegaly with central vascular prominence and suspected trace pulmonary edema. Repeat echo on 11/07 showed EF 65% with stage III diastolic dysfunction, no other new findings. Treated with IV Lasix 40 mg twice daily here with good improvement. Discharged on Lasix 40 mg daily. 3. Mild PEG, resolved ? Creatinine 1.61 on admit, baseline appears to be around 1.3. Suspect due to cardiorenal syndrome in setting of acute HFpEF as noted above. Improved back tobaseline with treatment of HFpEF as above. 4. Acute on chronic debility with recent right total hip replacement ? PT/OT/case management followed. [facility] He was living at home prior to that and was discharged to SNF at [facility]. Patient stable for discharge back to [facility] on 11/10. 5. Paroxysmal A-fib, history of CAD with CABG, hypertension, hyperlipidemia ? Was hospitalized here in September 2023 for A-fib with RVR. Cardiology followed and it appears she was discharged on Toprol. He now has amiodarone on her medication list, unclear on when this was started. Will continue both amiodarone and Toprol. Has history of CABG x 3, appears to be remote. Home Eliquis and Plavix held during hospitalization. Will resume Eliquis on discharge but continue to hold Plavix. Continue home nitrate and statin. 6. Mild pancytopenia ? WBC count 3.8, platelet count 95 and hemoglobin low as above during admission. Unclear etiology but suspect in part due to GI bleed. Continue to monitor in outpatient setting going forward. Chronic medical conditions: ? Type 2 diabetes mellitus with neuropathy: Treated with sliding-scale insulin with meals while inpatient. Okay to resume home metformin on discharge. Continue home gabapentin. ? BPH with obstructive symptoms: Continue home Flomax. ? GERD: Continue home PPI. Total clinical time spent by myself addressing the patient's medical issues, reviewing all the data, and collaborating with patient's care team: 35 minutes. Allergies/Procedures Done in Hospital Allergies Sulfa (Sulfonamide Antibiotics) Allergy (Verified 03/25/24 10:25) Unknown Procedures: EGD, EKG, Transthoracic Echo and - (Chest x-ray) Type of Care/Length of Stay Estimated LOS: Convalescent Care Less Than 30 days Type of Care Needed: Skilled Rehab Potential: Fair Prognosis: Fair Additional Orders/Day of Discharge H&P will serve as current which was dated: 11/07/24 Day of Discharge: 11/10/24 Dietary and Speech Recommendations Dietitian Recommendations/Changes: Recommend advance diet as tolerated to Cardiac/sodium-restricted with 1500mL/day FR. Will offer ONS as needed when PO adequacy established with meals. Carbohydrate-restricted diet as indicated; currently blood glucose WNL. Discharge Plan Admission Admit Date/Time: 11/07/24 16:06 Primary Reason for Your Visit: Worsening anemia with concern for GI bleed Attending Provider: Andrey Mitchell Primary Care Provider: Valery Quinteros Consulting Providers: Andrey Mitchell; Ju Fragoso Discharge Orders/Prescriptions Prescriptions: New furosemide 40 mg Tablet 40 mg PO DAILY 30 Days Qty: 0 0RF pantoprazole [Protonix] 40 mg tablet,delayed release (DR/EC) 40 mg PO BID 30 Days Qty: 60 0RF Continued isosorbide mononitrate 30 MG tablet extended release 24 hr 15 mg PO DAILY trazodone 50 mg tablet 50 mg PO QHS gabapentin 400 mg capsule 400 mg PO BID simvastatin 40 mg tablet 40 mg PO DAILY ezetimibe 10 mg tablet 10 mg PO DAILY metoprolol succinate 50 mg Tablet Extended Release 24 Hr 50 mg PO DAILY Qty: 30 0RF Eliquis 5 mg tablet 5 mg PO BID Qty: 60 0RF tamsulosin 0.4 mg capsule 0.4 mg PO Q24H metformin 500 mg tablet extended release 24 hr 500 mg PO DAILY acetaminophen 500 mg capsule 1,000 mg PO Q8H PRN PRN (Reason: fever or pain) acetaminophen 650 mg suppository 650 mg ID Q4H PRN (Reason: fever or pain) amiodarone 200 mg tablet 200 mg PO DAILY MAG-AL 200-200 mg/5 mL suspension 30 ml PO Q4H PRN (Reason: dyspepsia) ascorbic acid (vitamin C) 500 mg capsule 500 mg PO BID bisacodyl 10 mg suppository 10 mg ID DAILY PRN (Reason: constipation) docusate sodium 100 mg capsule 100 mg PO DAILY ferrous sulfate [FeroSul] 325 mg (65 mg iron) tablet 325 mg PO DAILY Fleet Enema 19-7 gram/118 mL enema 118 ml ID DAILY PRN (Reason: constipation) guaifenesin [Adult Tussin Chest Congestion] 100 mg/5 mL liquid 200 mg PO Q4H PRN (Reason: congestion) hydroxyzine HCl 25 mg tablet 25 mg PO TID PRN (Reason: anxiety) magnesium hydroxide [Milk of Magnesia] 400 mg/5 mL suspension 30 ml PO DAILY PRN (Reason: constipation) polyethylene glycol 3350 [ClearLax] 17 gram/dose powder 17 g PO DAILY ondansetron 4 mg tablet,disintegrating 4 mg PO Q6H PRN (Reason: nausea and vomiting) Discontinued clopidogrel 75 MG tablet 75 mg PO DAILY pantoprazole 20 mg tablet,delayed release (DR/EC) 20 mg PO BID amiodarone 400 mg tablet 400 mg PO DAILY Rx Instructions: UNTIL 11/12/24 furosemide 20 mg tablet 20 mg PO DAILY Glucagon Emergency Kit (human) 1 mg recon soln 1 mg IM Q20M PRN (Reason: hypoglycemia) Rx Instructions: until target blood sugar attained Referrals / Follow Up: Valery Quinteros CNS [Primary Care Provider] - Disposition Disposition (needs filled in before D/C Order can be placed): Alf Facility 11/10/24 1122 <Electronically signed by Andrey Mitchell DO> Cosigner Signature (if applicable): CC: [employer] Valery Quinteros; Dr. Andrey Mitchell DO; Dr. Ju Fragoso MD~ [facility] Work Phone: Discharge summary Author Fiorella Ramos [facility] Note Date/Time November 28, 2024 4:10 pm [facility] Medical Records Department [address] [place] [address] Transfer to [facility] MR#: [id number] Acct: [id number] Name: ANGIE DUTTON Rep #:[id number] : 1940 84 From: Fiorella Ramos MD PCP: PANCHITO Harris Status:ADM JERARDO Certification of patient admission REQUIRED AT TIME OF ADMISSION. I CERTIFY THAT POST-HOSPITAL ECF SERVICES ARE REQUIRED TO BE GIVEN ON AN IN-PATIENT BASIS BECAUSE OF THE ABOVE NAMED PATIENT'S NEED FOR INTERMEDIATE CARE ON A CONTINUING BASIS FOR THE CONDITION(S) FOR WHICH HE/SHE WAS RECEIVING IN-PATIENT HOSPITAL SERVICES PRIOR TO HIS/HER TRANSFER TO THE ECF. 11/28/24 1610<Electronically signed by Fiorella Ramos MD> Diet Diet Order/Speech Therapy: 11/26/24 13:46 ADA [Diet: Cardiac: Calorie-Controlled] Fluid restriction:: 1500 mL How many daily calories?: 1800 calorie Routine Orders/Code Status Suppository Type: Dulcolax 10mg Suppository Frequency: Daily PRN Routine Lab Work: BMP (2-3 days, potassium, kidney function) Code Status: Full Code DC O2, CPAP, BIPAP needs Home O2 Discharge instructions: No Wound(s) R hip: Wound Type: Surgical Incision Therapies Physical Therapy: Eval and Treat Occupational Therapy: Eval and Treat Problem/Diagnosis (1) Chest pain: Status: Acute Code(s): R07.9 - Chest pain, unspecified (2) Elevated troponin: Status: Acute Code(s): R79.89 - Other specified abnormal findings of blood chemistry Plan # Mild exacerbation of chronic HFpEF #Elevated trop suspect 2/ #above # Recent right hip replacement # BPH # GERD # Insomnia # A-fib # Coronary artery disease # Hypertension # Diabetes mellitus 84-year-old male with history as above presented to [facility] ED 11/25/2024 due to chest pain. The pain was on the left side and not pressure-like, it was mostly just there but did radiate to his left arm but he thought this potentially was due to therapy the day before but [facility] him worked up for chest pain rule out ACS. Patient admitted wasnoted to have a proBNP of 4700 and an initial troponin of 59 with repeat of 60. Chest x-ray query multifocal pneumonia but patient with no sputum production or other signs or symptoms or other signs or symptoms that would lead 120 patient had any ongoing infectious etiology and is felt that presentation more consistent with fluid overload so patient admitted and placed on IV Lasix and also underwent nuclear stress test which was negative. Patient's symptoms completely resolved and he is doing well. On day of discharge patient with no new or acute complaints, insurance approval achieved for patient go back to [facility], patient reports he feels better than he has in a while and has no concerns. Discharge instructions as follows: - given your normal potassium during admission you are scheduled Home potassium has been held -Would recommend lab work ( BMP) to check your kidney function and potassium in2 to 3 days - please follow-up with your orthopedic doctor as previously scheduled - due to slightly low blood pressure your metoprolol was decreased to 25 mg -Weigh yourself every day. A sudden weight gain can mean you are retaining fluid. Weigh yourself at the same time of day and in the same kind of clothes. Ideally, weigh yourself first thing in the morning after you empty your bladder,but before you eat breakfast. -Please call your physician if your weight goes up by more than 2 pounds in 1 day or 5 pounds in 1 week. This can be a sign that you are retaining more fluid than you should be. Allergies/Procedures Done in Hospital Allergies Sulfa (Sulfonamide Antibiotics) Allergy (Verified 11/25/24 14:13) Unknown Type of Care/Length of Stay Estimated LOS: Convalescent Care Less Than 30 days Type of Care Needed: Skilled Rehab Potential: Fair Prognosis: Fair Additional Orders/Day of Discharge Day of Discharge: 11/28/24 Discharge Plan Admission Admit Date/Time: 11/25/24 17:39 Primary Reason for Your Visit: Chest pain Attending Provider: Fiorella Ramos Primary Care Provider: Valery Quinteros Consulting Providers: Ju Fragoso; Artie Palacio Instructions Patient Instructions: ED Fall Prevention Additional Instructions / Restrictions: DISCHARGE INSTRUCTIONS PLEASE READ *Please take this with you to your next doctors appointment* - given your normal potassium during admission you are scheduled Home potassium has been held -Would recommend lab work ( BMP) to check your kidney function and potassium in2 to 3 days - please follow-up with your orthopedic doctor as previously scheduled - due to slightly low blood pressure your metoprolol was decreased to 25 mg -Weigh yourself every day. A sudden weight gain can mean you are retaining fluid. Weigh yourself at the same time of day and in the same kind of clothes. Ideally, weigh yourself first thing in the morning after you empty your bladder,but before you eat breakfast. -Please call your physician if your weight goes up by more than 2 pounds in 1 day or 5 pounds in 1 week. This can be a sign that you are retaining more fluid than you should be. -Please call your primary care provider's office upon discharge to schedule a hospital follow up within 1 week. -For any concerning signs or symptoms please call 911 or proceed to the nearest emergency department Discharge Orders/Prescriptions Prescriptions: Continued isosorbide mononitrate 30 MG tablet extended release 24 hr 15 mg PO DAILY gabapentin 400 mg capsule 400 mg PO BID ezetimibe 10 mg tablet 10 mg PO DAILY Eliquis 5 mg tablet 5 mg PO BID Qty: 60 0RF tamsulosin 0.4 mg capsule 0.4 mg PO QHS metformin 500 mg tablet extended release 24 hr 500 mg PO DAILY acetaminophen 500 mg capsule 1,000 mg PO Q8H PRN (Reason: fever or pain) acetaminophen 650 mg suppository 650 mg ID Q4H PRN (Reason: fever or pain) amiodarone 200 mg tablet 200 mg PO DAILY MAG-AL 200-200 mg/5 mL suspension 30 ml PO Q4H PRN (Reason: dyspepsia) ascorbic acid (vitamin C) 500 mg capsule 500 mg PO BID bisacodyl 10 mg suppository 10 mg ID DAILY PRN (Reason: constipation) docusate sodium 100 mg capsule 100 mg PO DAILY ferrous sulfate [FeroSul] 325 mg (65 mg iron) tablet 325 mg PO DAILY Fleet Enema 19-7 gram/118 mL enema 118 ml ID DAILY PRN (Reason: constipation) magnesium hydroxide [Milk of Magnesia] 400 mg/5 mL suspension 30 ml PO DAILY PRN (Reason: constipation) polyethylene glycol 3350 [ClearLax] 17 gram/dose powder 17 g PO DAILY ondansetron 4 mg tablet,disintegrating 4 mg PO Q6H PRN (Reason: nausea and vomiting) furosemide 40 mg Tablet 40 mg PO DAILY 30 Days Qty: 0 0RF pantoprazole [Protonix] 40 mg tablet,delayed release (DR/EC) 40 mg PO BID 30 Days Qty: 60 0RF simvastatin 20 mg tablet 20 mg PO QHS trazodone 150 mg tablet 75 mg PO QHS Changed metoprolol succinate 50 mg Tablet Extended Release 24 Hr 25 mg PO DAILY Qty: 30 0RF Discontinued potassium chloride [K-Tab] 20 mEq tablet extended release 20 meq PO BID Referrals / Follow Up: Suppan,Valery, [employer] [Primary Care Provider] - Within 1 Week Disposition Disposition (needs filled in before D/C Order can be placed): Alf Facility 11/28/24 1610 <Electronically signed by Fiorella Ramos MD> Cosigner Signature (if applicable): CC: PANCHITO Quinteros; Dr. Artie Palacio MD; Dr. Ju Fragoso MD ~ [facility] Work Phone: Discharge summary Author Fiorella Ramos [facility] Note Date/Time November 28, 2024 4:11 pm [facility] Medical Records Department [address] [place] [address] Discharge Summary 11/28/24 1610 MR#: [id number] Acct: [id number] Name: ANGIE DUTTON Rep #:[id number] : [id number] 84 From: Fiorella Ramos MD PCP: PANCHITO Harris Status:ADM JERARDO Location: [place] [address] Providers Date of Admission: 11/25/24 Date of Discharge: 11/28/24 Primary Care Physician: PANCHITO Harris Reason For Visit: CHEST PAIN Diagnosis Discharge Diagnosis (1) Chest pain: Status: Acute Code(s): R07.9 - Chest pain, unspecified (2) Elevated troponin: Status: Acute Code(s): R79.89 - Other specified abnormal findings of blood chemistry Plan # Mild exacerbation of chronic HFpEF #Elevated trop suspect 2/2 #above # Recent right hip replacement # BPH # GERD # Insomnia # A-fib # Coronary artery disease # Hypertension # Diabetes mellitus Medications at Discharge Home Medications isosorbide mononitrate 30 mg tablet,extended release 24 hr 15 mg PO DAILY HEART 08/23/19 gabapentin 400 mg capsule 400 mg PO BID NERVE PAIN 06/25/21 ezetimibe 10 mg tablet 10 mg PO DAILY CHOLESTROL 09/24/23 apixaban 5 mg tablet (Eliquis) 5 mg PO BID CEREBRAL INFARCTION #60 tabs 09/26/23 acetaminophen 500 mg capsule 1,000 mg PO Q8H PRN fever or pain 11/07/24 acetaminophen 650 mg rectal suppository 650 mg ID Q4H PRN fever or pain 11/07/24 aluminum-magnesium hydroxide 200 mg-200 mg/5 mL oral suspension (MAG-AL) 30 ml PO Q4H PRN dyspepsia 11/07/24 amiodarone 200 mg tablet 200 mg PO DAILY AFIB 11/07/24 ascorbic acid (vitamin C) 500 mg capsule 500 mg PO BID SUPPLEMENT 11/07/24 bisacodyl 10 mg rectal suppository 10 mg ID DAILY PRN constipation 11/07/24 docusate sodium 100 mg capsule 100 mg PO DAILY CONSTIPATION 11/07/24 ferrous sulfate 325 mg (65 mg iron) tablet (FeroSul) 325 mg PO DAILY ANEMIA 11/07/24 magnesium hydroxide 400 mg/5 mL oral suspension (Milk of Magnesia) 30 ml PO DAILY PRN constipation 11/07/24 metformin 500 mg tablet,extended release 24 hr 500 mg PO DAILY DIABETES 11/07/24 ondansetron 4 mg disintegrating tablet 4 mg PO Q6H PRN nausea and vomiting 11/07/24 polyethylene glycol 3350 17 gram/dose oral powder (ClearLax) 17 g PO DAILY 11/07/24 sodium phosphates 19 gram-7 gram/118 mL enema (Fleet Enema) 118 ml ID DAILY PRN constipation 11/07/24 tamsulosin 0.4 mg capsule 0.4 mg PO QHS 11/07/24 furosemide 40 mg tablet 40 mg PO DAILY EDEMA 30 days #0 tabs 11/10/24 pantoprazole 40 mg tablet,delayed release (Protonix) 40 mg PO BID HEARTBURN 30 days #60 tabs 11/10/24 simvastatin 20 mg tablet 20 mg PO QHS 11/25/24 trazodone 150 mg tablet 75 mg PO QHS INSOMNIA 11/25/24 metoprolol succinate 50 mg tablet,extended release 24 hr 25 mg (1/2 x 50 mg) PO DAILY ANGINA #30 tabs 11/28/24 Hospital Course Summary of Care Provided Minutes Spent on Discharge: 31 Hospital Course: # Mild exacerbation of chronic HFpEF #Elevated trop suspect 2/2 #above # Recent right hip replacement # BPH # GERD # Insomnia # A-fib # Coronary artery disease # Hypertension # Diabetes mellitus 84-year-old male with history as above presented to [facility] ED 11/25/2024 due to chest pain. The pain was on the left side and not pressure-like, it was mostly just there but did radiate to his left arm but he thought this potentially was due to therapy the day before but given his history [facility] wanted him worked up for chest pain rule out ACS. Patient admitted wasnoted to have a proBNP of 4700 and an initial troponin of 59 with repeat of 60. Chest x-ray query multifocal pneumonia but patient with no sputum production or other signs or symptoms or other signs or symptoms that would lead 120 patient had any ongoing infectious etiology and is felt that presentation more consistent with fluid overload so patient admitted and placed on IV Lasix and also underwent nuclear stress test which was negative. Patient's symptoms completely resolved and he is doing well. On day of discharge patient with no new or acute complaints, insurance approval achieved for patient go back to [facility], patient reports he feels better than he has in a while and has no concerns. Discharge instructions as follows: - given your normal potassium during admission you are scheduled Home potassium has been held -Would recommend lab work ( BMP) to check your kidney function and potassium in2 to 3 days - please follow-up with your orthopedic doctor as previously scheduled - due to slightly low blood pressure your metoprolol was decreased to 25 mg -Weigh yourself every day. A sudden weight gain can mean you are retaining fluid. Weigh yourself at the same time of day and in the same kind of clothes. Ideally, weigh yourself first thing in the morning after you empty your bladder,but before you eat breakfast. -Please call your physician if your weight goes up by more than 2 pounds in 1 day or 5 pounds in 1 week. This can be a sign that you are retaining more fluid than you should be. Physical Exam Narrative General: Alert, oriented, no apparent distress HEENT: Atraumatic, normocephalic Eyes: Anicteric, normal conjunctiva, extraocular movements grossly intact Neck: Supple Respiratory: No significant wheezes or rhonchi, normal respiratory effort Cardiovascular: Regular rate GI: Soft, nontender, nondistended Extremities: No edema Musculoskeletal: Moving all extremities Neuro: No overt focal neurological deficits Skin: No rashes appreciated Psych: Cooperative Weight / BMI Weight Weight: 73.5 kg Body Mass Index (BMI) 25.3 ABG / Lab / Microbiology Data 11/26/24 04:40 11/28/24 09:14 Laboratory: Laboratory Results - last 24 hr 11/27/24 16:16: POC Glucose 103 04/06/25 20:16: POC Glucose 166 H 11/28/24 06:54: POC Glucose 96 11/28/24 09:14: Sodium 139, Potassium 4.1, Chloride 100, Carbon Dioxide 27.1, Anion Gap 12, BUN 20 H, Creatinine 1.57 H, Estim Creat Clear Calc 31.58 L, Est GFR (MDRD) Non-Af 43 L, BUN/Creatinine Ratio 12.7, Glucose 152 H, Calcium 9.1 11/28/24 11:21: POC Glucose 107 H D/C Instructions Discharge Diet: - (Cardiac, calorie controlled) DC O2, CPAP, BIPAP Needs Home O2 Discharge instructions: No Meaningful Use Info Meaningful Use Meaningful Use Diagnoses (Choose all that apply): CHF CHF ANAMARIA/ARB ordered at discharge?: No Reason ANAMARIA/ARB not ordered?: Hypotension Documented LVEF (%): 65 Ischemic Stroke Statin Dosing Therapy Reference: STATIN DOSE THERAPY REFERENCE: * Patients > 75 years receive moderate or high dose statin therapy. * Patients 75 years or YOUNGER should receive HIGH intensity statin dose unless contraindicated. You will be required to document reason for non-treatment if statin daily dose does not meet guidelines. HIGH DOSE STATIN THERAPY DAILY Atorvastatin > than or = to 40 mg Rosuvastatin > than or = to 20 mg Amlodipine + Atorvastatin > than or = to 2.5/40 mg Ezetimibe + Simvastatin 10/80 mg Simvastatin 80mg Discharge Plan Admission Admit Date/Time: 11/25/24 17:39 Primary Reason for Your Visit: Chest pain Attending Provider: Fiorella Ramos Primary Care Provider: Valery Quinteros Consulting Providers: Ju Fragoso; Artie Palacio Instructions Patient Instructions: ED Fall Prevention Additional Instructions / Restrictions: DISCHARGE INSTRUCTIONS PLEASE READ *Please take this with you to your next doctors appointment* - given your normal potassium during admission you are scheduled Home potassium has been held -Would recommend lab work ( BMP) to check your kidney function and potassium in2 to 3 days - please follow-up with your orthopedic doctor as previously scheduled - due to slightly low blood pressure your metoprolol was decreased to 25 mg -Weigh yourself every day. A sudden weight gain can mean you are retaining fluid. Weigh yourself at the same time of day and in the same kind of clothes. Ideally, weigh yourself first thing in the morning after you empty your bladder,but before you eat breakfast. -Please call your physician if your weight goes up by more than 2 pounds in 1 day or 5 pounds in 1 week. This can be a sign that you are retaining more fluid than you should be. -Please call your primary care provider's office upon discharge to schedule a hospital follow up within 1 week. -For any concerning signs or symptoms please call 911 or proceed to the nearest emergency department Discharge Orders/Prescriptions Prescriptions: Continued isosorbide mononitrate 30 MG tablet extended release 24 hr 15 mg PO DAILY gabapentin 400 mg capsule 400 mg PO BID ezetimibe 10 mg tablet 10 mg PO DAILY Eliquis 5 mg tablet 5 mg PO BID Qty: 60 0RF tamsulosin 0.4 mg capsule 0.4 mg PO QHS metformin 500 mg tablet extended release 24 hr 500 mg PO DAILY acetaminophen 500 mg capsule 1,000 mg PO Q8H PRN (Reason: fever or pain) acetaminophen 650 mg suppository 650 mg ID Q4H PRN (Reason: fever or pain) amiodarone 200 mg tablet 200 mg PO DAILY MAG-AL 200-200 mg/5 mL suspension 30 ml PO Q4H PRN (Reason: dyspepsia) ascorbic acid (vitamin C) 500 mg capsule 500 mg PO BID bisacodyl 10 mg suppository 10 mg ID DAILY PRN (Reason: constipation) docusate sodium 100 mg capsule 100 mg PO DAILY ferrous sulfate [FeroSul] 325 mg (65 mg iron) tablet 325 mg PO DAILY Fleet Enema 19-7 gram/118 mL enema 118 ml ID DAILY PRN (Reason: constipation) magnesium hydroxide [Milk of Magnesia] 400 mg/5 mL suspension 30 ml PO DAILY PRN (Reason: constipation) polyethylene glycol 3350 [ClearLax] 17 gram/dose powder 17 g PO DAILY ondansetron 4 mg tablet,disintegrating 4 mg PO Q6H PRN (Reason: nausea and vomiting) furosemide 40 mg Tablet 40 mg PO DAILY 30 Days Qty: 0 0RF pantoprazole [Protonix] 40 mg tablet,delayed release (DR/EC) 40 mg PO BID 30 Days Qty: 60 0RF simvastatin 20 mg tablet 20 mg PO QHS trazodone 150 mg tablet 75 mg PO QHS Changed metoprolol succinate 50 mg Tablet Extended Release 24 Hr 25 mg PO DAILY Qty: 30 0RF Discontinued potassium chloride [K-Tab] 20 mEq tablet extended release 20 meq PO BID Referrals / Follow Up: Valery Quinteros CNS [Primary Care Provider] - Within 1 Week Disposition Disposition (needs filled in before D/C Order can be placed): Alf Facility Charges/Coding Visit Charges Inpatient E&M: 03798 Disch Hosp >30min 11/28/24 1611 <Electronically signed by Fiorella Ramos MD> Cosigner Signature (if applicable): CC: PANCHITO Quinteros; Dr. 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) [facility] Diagnosis Coronary artery disease involving [place] coronary artery of [place] heart without angina pectoris- Primary Lipid disorder Unspecified disorder of lipoid metabolism Mixed hyperlipidemia Essential hypertension, benign Coronary angioplasty status Postsurgical percutaneous transluminal coronary angioplasty status TIA (transient ischemic attack) Unspecified transient cerebral ischemia 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) [facility] Right hip pain- Primary Pain in joint, pelvic region and thigh [facility] Diagnosis Right hip pain- Primary Pain in joint, pelvic region and thigh [facility] Diagnosis LUQ abdominal pain- Primary Abdominal pain, left upper quadrant Herpes zoster without complications Herpes zoster without mention of complication [facility] Diagnosis Right hip pain- Primary Pain in joint, pelvic region and thigh [facility] Diagnosis 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)- Primary Essential hypertension, benign Mixed hyperlipidemia Impaired fasting glucose Stage 3a chronic kidney disease (HCC) Chronic right hip pain Pain in joint, pelvic region and thigh Pain of right calf Iron deficiency anemia, unspecified iron deficiency anemia type Thrombocytopenia, unspecified ([facility]) Thrombocytopenia, unspecified Primary insomnia Persistent disorder of initiating or maintaining sleep Gastroesophageal reflux disease, unspecified whether esophagitis present Spinal stenosis, lumbar region, without neurogenic claudication Lumbosacral spondylosis without myelopathy [facility] Diagnosis Thrombocytopenia (HCC)- Primary Thrombocytopenia, unspecified [facility] Diagnosis Chronic ITP (idiopathic thrombocytopenia) (HCC)- Primary Immune thrombocytopenic purpura Diarrhea, unspecified type [facility] Diagnosis 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)- Primary Essential hypertension, benign Mixed hyperlipidemia Impaired fasting glucose Stage 3a chronic kidney disease (HCC) Chronic ITP (idiopathic thrombocytopenia) ([facility]) Immune thrombocytopenic purpura Iron deficiency anemia, unspecified iron deficiency anemia type Gastroesophageal reflux disease, unspecified whether esophagitis present Spinal stenosis, lumbar region, without neurogenic claudication Primary insomnia Persistent disorder of initiating or maintaining sleep Dizziness Dizziness and giddiness Gait instability Abnormality of gait Right hip pain Pain in joint, pelvic region and thigh [facility] Diagnosis Iron deficiency anemia, unspecified iron deficiency anemia type Dyspepsia Dyspepsia and other specified disorders of function of stomach Dysphagia, unspecified type [facility] Diagnosis Primary osteoarthritis of right hip- Primary Primary localized osteoarthrosis, pelvic region and thigh Right hip pain Pain in joint, pelvic region and thigh [facility] Diagnosis Primary insomnia Persistent disorder of initiating or maintaining sleep [facility] Diagnosis 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)- Primary Essential hypertension, benign Mixed hyperlipidemia Impaired fasting glucose Stage 3a chronic kidney disease (HCC) Iron deficiency anemia, unspecified iron deficiency anemia type Chronic ITP (idiopathic thrombocytopenia) ([facility]) Immune thrombocytopenic purpura Gastroesophageal reflux disease, unspecified whether esophagitis present Spinal stenosis, lumbar region, without neurogenic claudication TIA (transient ischemic attack) Unspecified transient cerebral ischemia Elevated serum creatinine Other nonspecific findings on examination of blood Primary insomnia Persistent disorder of initiating or maintaining sleep [facility] Diagnosis Primary osteoarthritis of right hip- Primary Primary localized osteoarthrosis, pelvic region and thigh Right hip pain Pain in joint, pelvic region and thigh [facility] Diagnosis 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)- Primary TIA (transient ischemic attack) Unspecified transient cerebral ischemia Essential hypertension, benign Mixed hyperlipidemia Impaired fasting glucose Stage 3a chronic kidney disease (HCC) Iron deficiency anemia, unspecified iron deficiency anemia type Gastroesophageal reflux disease, unspecified whether esophagitis present Spinal stenosis, lumbar region, without neurogenic claudication Tiredness Other malaise and fatigue [facility]* Diagnosis Iron deficiency anemia, unspecified iron deficiency anemia type Dyspepsia Dyspepsia and other specified disorders of function of stomach Dysphagia, unspecified type [facility]* Diagnosis Coronary artery disease involving [place] coronary artery of [place] heart without angina pectoris- Primary Lipid disorder Unspecified disorder of lipoid metabolism Mixed hyperlipidemia Essential hypertension, benign Coronary angioplasty status Postsurgical percutaneous transluminal coronary angioplasty status TIA (transient ischemic attack) Unspecified transient cerebral ischemia 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) [facility] Diagnosis Pain in right hip- Primary Pain in joint, pelvic region and thigh [facility]* Diagnosis Diarrhea, unspecified type- Primary [facility]* Diagnosis Pain in right hip Pain in joint, pelvic region and thigh [facility] Diagnosis Onset Date Resolution Status Osteoarthritis of right hip acute Atrial fibrillation with RVR acute CAD (coronary artery disease) acute GERD (gastroesophageal reflux disease) acute Osteoarthritis of right hip acute Hypertension [facility] Work Phone: Evaluation note* Diagnosis Hospital discharge follow-up- Primary Other follow-up examination New onset atrial fibrillation (HCC) Atrial fibrillation Elevated serum creatinine Other nonspecific findings on examination of blood 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) Essential hypertension, benign Hypertensive kidney disease with stage 3a chronic kidney disease (HCC) Mixed hyperlipidemia Impaired fasting glucose Cardiac enzymes elevated Other nonspecific abnormal serum enzyme levels Stage 3a chronic kidney disease (HCC) [facility] Diagnosis Increased urinary frequency- Primary Urinary frequency [facility] Diagnosis Increased urinary frequency Urinary frequency [facility]* Diagnosis Nocturia- Primary [facility]* Diagnosis Stenosis of left carotid artery Occlusion and stenosis of carotid artery without mention of cerebral infarction [facility]* Diagnosis PAF (paroxysmal atrial fibrillation) (HCC)- Primary Atrial fibrillation Coronary artery disease involving [place] coronary artery of [place] heart without angina pectoris Essential hypertension, benign Mixed hyperlipidemia TIA (transient ischemic attack) Unspecified transient cerebral ischemia [facility]* Diagnosis Arthritis of right hip- Primary BPH with obstruction/lower urinary tract symptoms Hypertrophy of prostate with urinary obstruction and other lower urinary tract symptoms (LUTS) [facility]* Diagnosis Mild anemia- Primary Anemia, unspecified [facility]* Diagnosis Iron deficiency anemia, unspecified iron deficiency anemia type Dyspepsia Dyspepsia and other specified disorders of function of stomach Dysphagia, unspecified type [facility]* Diagnosis BPH with obstruction/lower urinary tract symptoms Hypertrophy of prostate with urinary obstruction and other lower urinary tract symptoms (LUTS) [facility]* Diagnosis 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)- Primary Essential hypertension, benign Bilateral carotid artery stenosis Occlusion and stenosis of carotid artery without mention of cerebral infarction New onset atrial fibrillation (HCC) Atrial fibrillation BPH with obstruction/lower urinary tract symptoms Hypertrophy of prostate with urinary obstruction and other lower urinary tract symptoms (LUTS) Chronic right hip pain Pain in joint, pelvic region and thigh Spinal stenosis, lumbar region, without neurogenic claudication [facility]* Diagnosis Pain in right hip- Primary Pain in joint, pelvic region and thigh Arthritis of right hip [facility] Diagnosis Pain in right hip Pain in joint, pelvic region and thigh [facility]* Diagnosis Primary osteoarthritis of right hip- Primary Primary localized osteoarthrosis, pelvic region and thigh Primary osteoarthritis of right hip Primary localized osteoarthrosis, pelvic region and thigh [facility]* Diagnosis Primary osteoarthritis of right hip- Primary Primary localized osteoarthrosis, pelvic region and thigh Primary osteoarthritis of right hip Primary localized osteoarthrosis, pelvic region and thigh [facility] Diagnosis Paroxysmal atrial fibrillation (HCC)- Primary Atrial fibrillation Atherosclerosis of [place] coronary artery of [place] heart without angina pectoris Mixed hyperlipidemia Essential hypertension, benign Hypertensive kidney disease with stage 3a chronic kidney disease (HCC) Stage 3a chronic kidney disease (HCC) Preoperative cardiovascular examination Pre-operative cardiovascular examination Primary osteoarthritis of right hip Primary localized osteoarthrosis, pelvic region and thigh documented in this encounter [facility] note* Diagnosis Mixed hyperlipidemia- Primary BPH with obstruction/lower urinary tract symptoms Hypertrophy of prostate with urinary obstruction and other lower urinary tract symptoms (LUTS) Chronic right hip pain Pain in joint, pelvic region and thigh Iron deficiency anemia, unspecified iron deficiency anemia type Dyspepsia Dyspepsia and other specified disorders of function of stomach Dysphagia, unspecified type Primary insomnia Persistent disorder of initiating or maintaining sleep 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) Paroxysmal atrial fibrillation (HCC) Atrial fibrillation Dog bite, sequela Hypertension, unspecified type Suicide attempt ([facility]) Suicide and self-inflicted injury by unspecified means Primary osteoarthritis of right hip Primary localized osteoarthrosis, pelvic region and thigh documented in this encounter [facility] note* Diagnosis 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) Chronic right hip pain Pain in joint, pelvic region and thigh Paroxysmal atrial fibrillation (HCC) Atrial fibrillation Mixed hyperlipidemia Iron deficiency anemia, unspecified iron deficiency anemia type Dyspepsia Dyspepsia and other specified disorders of function of stomach Dysphagia, unspecified type BPH with obstruction/lower urinary tract symptoms Hypertrophy of prostate with urinary obstruction and other lower urinary tract symptoms (LUTS) Primary insomnia Persistent disorder of initiating or maintaining sleep Primary osteoarthritis of right hip Primary localized osteoarthrosis, pelvic region and thigh documented in this encounter [facility] note* Diagnosis 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)- Primary Paroxysmal A-fib (HCC) Atrial fibrillation Mixed hyperlipidemia Hypertensive kidney disease with stage 3a chronic kidney disease (HCC) Primary insomnia Persistent disorder of initiating or maintaining sleep Gastroesophageal reflux disease, unspecified whether esophagitis present Chronic ITP (idiopathic thrombocytopenia) ([facility]) Immune thrombocytopenic purpura Pre-operative examination Preoperative examination, unspecified Iron deficiency anemia, unspecified iron deficiency anemia type Impaired fasting glucose Bilateral carotid artery stenosis Occlusion and stenosis of carotid artery without mention of cerebral infarction TIA (transient ischemic attack) Unspecified transient cerebral ischemia Primary osteoarthritis of right hip Primary localized osteoarthrosis, pelvic region and thigh * Assessment & Plan Note - Anne Alexander APRN.CNP - 04/15/2024 9:56 AM EDT Associated Problem(s): TIA (transient ischemic attack) Assessment: hx, likely related unknown pAfib at the time of TIA * Assessment & Plan Note - Anne Alexander APRN.CNP - 04/15/2024 9:55 AM EDT Associated Problem(s): Bilateral carotid artery stenosis Assessment: right 20-39%, left 60-79% Carotid US 08/2023, PCP monitoring, * Assessment & Plan Note - Anne Alexander APRN.CNP - 04/15/2024 9:54 AM EDT Associated Problem(s): Impaired fasting glucose Assessment: diet controlled Hemoglobin A1C (%) Date Value 04/02/2023 5.7 04/16/2021 5.7 * Assessment & Plan Note - Anne Alexander APRN.CNP - 04/15/2024 9:54 AM EDT Associated Problem(s): Iron deficiency anemia Assessment: hx, iron studies add to labs Hemoglobin (g/dL) Date Value 04/15/2024 9.4 08/31/2021 14.8 Hematocrit (%) Date Value 04/15/2024 31.0 08/31/2021 46.9 WBC (k/uL) Date Value 04/15/2024 7.03 08/31/2021 5.45 * Assessment & Plan Note - Anne Alexander APRN.CNP - 04/15/2024 9:51 AM EDT Associated Problem(s): Chronic ITP (idiopathic thrombocytopenia) (HCC) Assessment: hx, chronic, initial hematology consult 2020, PCP has been monitoring since Platelet Count Date Value Ref Range Status 04/15/2024 106 (L) 150 - 400 k/uL Final * Assessment & Plan Note - Anne Alexander APRN.CNP - 04/15/2024 9:49 AM EDT Associated Problem(s): Esophageal reflux Assessment: controlled on rx * Assessment & Plan Note - Anne Alexander APRN.CNP - 04/15/2024 9:48 AM EDT Associated Problem(s): Insomnia, unspecified Assessment: rx as needed * Assessment & Plan Note - Anne Alexander APRN.CNP - 04/15/2024 9:48 AM EDT Associated Problem(s): Hypertensive kidney disease with stage 3a chronic kidney disease (HCC) Assessment: controlled on rx Last 14 BP Last 14 Encounter BP Readings: Date: BP: 04/15/2024 132/68 03/21/2024 122/56 03/02/2024 128/60 02/23/2024 140/80 01/07/2024 132/80 10/29/2023 139/79 10/20/2023 122/74 10/13/2023 136/68 10/08/2023 128/70 09/30/2023 140/76 09/24/2023 129/73 09/07/2023 140/78 08/11/2023 147/69 07/03/2023 126/74 Creatinine Date Value Ref Range Status 01/11/2024 1.42 (H) 0.73 - 1.22 mg/dL Final 10/08/2023 1.45 (H) 0.73 - 1.22 mg/dL Final 04/02/2023 1.36 (H) 0.73 - 1.22 mg/dL Final 01/08/2023 1.39 (H) 0.73 - 1.22 mg/dL Final * Assessment & Plan Note - Anne Alexander APRN.CNP - 04/15/2024 9:48 AM EDT Associated Problem(s): Mixed hyperlipidemia Assessment: c/w statin * Assessment & Plan Note - Anne Alexander APRN.CNP - 04/15/2024 9:48 AM EDT Associated Problem(s): Paroxysmal A-fib (HCC) Assessment: controlled on rx, daily Eliquis, instructions received to hold 3 days prior to surgery * Assessment & Plan Note - Anne Alexander APRN.CNP - 04/15/2024 9:46 AM EDT Associated Problem(s): 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pectoris (HCC) Assessment: s/p cardiac stents, 1985 and 2007, was taking Plavix until recently was told to stop after last OV below when cardiology was questioned about AC instructions. Received cardiac optimization below. TE 04/05/2024 Request sent to me to discuss recommendations for holding Plavix prior to upcoming hip surgery. Reviewed recent OV with Dr. Hernandez. Patient is s/p CABG in 1985 and stents in 2007 for which he has been managed on Plavix. He has a recent history of PAF which he is on Eliquis for OAC. He has been cleared to hold Eliquis for 3 days prior to planned hip surgery. Current trends show that patient with CAD who have been stable with no recent intervention or PCI can be managed on Eliquis alone to help decrease bleeding risk on dual therapy. Please call the patient and ask him to stop plavix for now and continue Eliquis. Hold Eliquis as recommended prior to surgery and resume at the discretion of the surgeon. Brittani Mace APRN.[employer]SI[employer]GER 03/02/2024 Dr. Tavares ASSESSMENT/PLAN: Preoperative cardiovascular exam Patient notes possible need for right hip surgery He will be an intermediate to higher cardiac risk He has no cardiac symptoms and remains in sinus He may hold Eliquis for 2-3 days prior to surgery and restart after safe from a surgical standpoint. Paroxysmal atrial fibrillation - sinus with frequent PACs on today's ekg - found to have AF RVR at admission to [facility] 09/2023 - converted to SR on admission - echo on admission normal EF, grade II DD, moderate LAE. - started on Toprol 50 mg daily and Eliquis 5 mg BID - regular on exam today - Toprol decreased to 25 mg daily last visit as he was concerned with low BP readings (increased to50 mg with RVR in [facility]) - [facility] 10/2023 no AF noted but had pSVT Coronary artery disease involving [place] coronary artery of [place] heart without angina pectoris - s/p CABGx 3 1985, PCI stent - 2007 - plavix 75 mg daily, Toprol 50 daily, simvastatin 40 mg and Imdur 15 mg daily - Continue secondary prevention Essential hypertension, benign - optimal control today >> patient voiced concerns about lower BP since starting Toprol for his AF. - Encouraged dietary sodium restriction/DASH diet - Recommended regular aerobic exercise. - Reviewed risks of HTN and principles of treatment - Goal of BP <130/80 Mixed hyperlipidemia - optimal control with LDL 59, 03/2023 and goal at < 70 - Continue current medication (simvastatin 40 mg, ezetimibe 10 mg) TIA (transient ischemic attack) - ? Related to undiagnosed AF - on Eliquis, Plavix and BB now We had a very long discussion reviewing the pathophysiology, testing and treatment options for Atrial Fibrillation. I discussed the risk of a thromboembolic event from this rhythm in reference to [id number] scoring and the risk of anticoagulation if needed according to the HAS-BLED scoring and oth er contributing risks. We discussed some of the causative factors often leading to AF including, but not limited to, hypertension, thyroid, sleep apnea and possible CAD. We will follow him periodically to help with secondary prevention watch for any recurrence paroxysmal atrial fibrillation. He should continue anticoagulation and beta-bryan. He is an intermediate to higher cardiac risk for surgery and may hold Eliquis 48 to 72 hrs preop. Thank you for allowing me the privilege of participating in the care of your patient. Please do nothesitate to contact me if there are any questions. Jeanie Tavares, DO, FACC, FCCP, FACOI [facility] Diagnosis 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)- Primary Paroxysmal A-fib (HCC) Atrial fibrillation Mixed hyperlipidemia Hypertensive kidney disease with stage 3a chronic kidney disease (HCC) Primary insomnia Persistent disorder of initiating or maintaining sleep Gastroesophageal reflux disease, unspecified whether esophagitis present 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 Pre-operative examination Preoperative examination, unspecified Iron deficiency anemia, unspecified iron deficiency anemia type Impaired fasting glucose Bilateral carotid artery stenosis Occlusion and stenosis of carotid artery without mention of cerebral infarction TIA (transient ischemic attack) Unspecified transient cerebral ischemia Iron deficiency anemia due to chronic blood loss- Primary Iron deficiency anemia secondary to blood loss (chronic) Controlled type 2 diabetes mellitus without complication, without long-term current use of insulin (HCC) [facility] Diagnosis 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)- Primary Paroxysmal A-fib (HCC) Atrial fibrillation Mixed hyperlipidemia Hypertensive kidney disease with stage 3a chronic kidney disease (HCC) Primary insomnia Persistent disorder of initiating or maintaining sleep Gastroesophageal reflux disease, unspecified whether esophagitis present 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 Pre-operative examination Preoperative examination, unspecified Iron deficiency anemia, unspecified iron deficiency anemia type Impaired fasting glucose Bilateral carotid artery stenosis Occlusion and stenosis of carotid artery without mention of cerebral infarction TIA (transient ischemic attack) Unspecified transient cerebral ischemia Right groin pain- Primary Abdominal pain, right lower quadrant Chronic right hip pain Pain in joint, pelvic region and thigh Atherosclerosis of [place] coronary artery of [place] heart without angina pectoris Paroxysmal A-fib (HCC) Atrial fibrillation Essential hypertension, benign Mixed hyperlipidemia Hypertensive kidney disease with stage 3a chronic kidney disease (HCC) 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) Other iron deficiency anemia Prediabetes Other abnormal glucose Encounter for immunization Need for other specified prophylactic vaccination against single bacterial disease [facility] Diagnosis 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)- Primary Paroxysmal A-fib (HCC) Atrial fibrillation Mixed hyperlipidemia Hypertensive kidney disease with stage 3a chronic kidney disease (HCC) Primary insomnia Persistent disorder of initiating or maintaining sleep Gastroesophageal reflux disease, unspecified whether esophagitis present 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 Pre-operative examination Preoperative examination, unspecified Iron deficiency anemia, unspecified iron deficiency anemia type Impaired fasting glucose Bilateral carotid artery stenosis Occlusion and stenosis of carotid artery without mention of cerebral infarction TIA (transient ischemic attack) Unspecified transient cerebral ischemia Other iron deficiency anemia- Primary Other hemoglobinopathies (HCC) Other hemoglobinopathies Thrombocytopenia (HCC) Thrombocytopenia, unspecified [facility] Diagnosis 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)- Primary Paroxysmal A-fib (HCC) Atrial fibrillation Mixed hyperlipidemia Hypertensive kidney disease with stage 3a chronic kidney disease (HCC) Primary insomnia Persistent disorder of initiating or maintaining sleep Gastroesophageal reflux disease, unspecified whether esophagitis present 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 Pre-operative examination Preoperative examination, unspecified Iron deficiency anemia, unspecified iron deficiency anemia type Impaired fasting glucose Bilateral carotid artery stenosis Occlusion and stenosis of carotid artery without mention of cerebral infarction TIA (transient ischemic attack) Unspecified transient cerebral ischemia Anemia, unspecified type- Primary Other hemoglobinopathies (HCC) Other hemoglobinopathies Thrombocytopenia (HCC) Thrombocytopenia, unspecified [facility]* Diagnosis 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)- Primary Paroxysmal A-fib (HCC) Atrial fibrillation Mixed hyperlipidemia Hypertensive kidney disease with stage 3a chronic kidney disease (HCC) Primary insomnia Persistent disorder of initiating or maintaining sleep Gastroesophageal reflux disease, unspecified whether esophagitis present 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 Pre-operative examination Preoperative examination, unspecified Iron deficiency anemia, unspecified iron deficiency anemia type Impaired fasting glucose Bilateral carotid artery stenosis Occlusion and stenosis of carotid artery without mention of cerebral infarction TIA (transient ischemic attack) Unspecified transient cerebral ischemia Anemia, unspecified type- Primary Thrombocytopenia (HCC) Thrombocytopenia, unspecified [facility]* Diagnosis Cough 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)- Primary Paroxysmal A-fib (HCC) Atrial fibrillation Mixed hyperlipidemia Hypertensive kidney disease with stage 3a chronic kidney disease (HCC) Primary insomnia Persistent disorder of initiating or maintaining sleep Gastroesophageal reflux disease, unspecified whether esophagitis present 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 Pre-operative examination Preoperative examination, unspecified Iron deficiency anemia, unspecified iron deficiency anemia type Impaired fasting glucose Bilateral carotid artery stenosis Occlusion and stenosis of carotid artery without mention of cerebral infarction TIA (transient ischemic attack) Unspecified transient cerebral ischemia [facility] Diagnosis 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)- Primary Paroxysmal A-fib (HCC) Atrial fibrillation Mixed hyperlipidemia Hypertensive kidney disease with stage 3a chronic kidney disease (HCC) Primary insomnia Persistent disorder of initiating or maintaining sleep Gastroesophageal reflux disease, unspecified whether esophagitis present 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 Pre-operative examination Preoperative examination, unspecified Iron deficiency anemia, unspecified iron deficiency anemia type Impaired fasting glucose Bilateral carotid artery stenosis Occlusion and stenosis of carotid artery without mention of cerebral infarction TIA (transient ischemic attack) Unspecified transient cerebral ischemia Primary osteoarthritis of right hip- Primary Primary localized osteoarthrosis, pelvic region and thigh Iron deficiency anemia, unspecified iron deficiency anemia type Dyspepsia Dyspepsia and other specified disorders of function of stomach Dysphagia, unspecified type Encounter for immunization Need for other specified prophylactic vaccination against single bacterial disease Insomnia, unspecified type Essential hypertension, benign 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) Stage 3a chronic kidney disease (HCC) 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 Spinal stenosis, lumbar region, without neurogenic claudication Prediabetes Other abnormal glucose [facility]* Diagnosis Iron deficiency anemia due to chronic blood loss- Primary Iron deficiency anemia secondary to blood loss (chronic) 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)- Primary Paroxysmal A-fib (HCC) Atrial fibrillation Mixed hyperlipidemia Hypertensive kidney disease with stage 3a chronic kidney disease (HCC) Primary insomnia Persistent disorder of initiating or maintaining sleep Gastroesophageal reflux disease, unspecified whether esophagitis present 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 Pre-operative examination Preoperative examination, unspecified Iron deficiency anemia, unspecified iron deficiency anemia type Impaired fasting glucose Bilateral carotid artery stenosis Occlusion and stenosis of carotid artery without mention of cerebral infarction TIA (transient ischemic attack) Unspecified transient cerebral ischemia [facility]* Diagnosis 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)- Primary Paroxysmal A-fib (HCC) Atrial fibrillation Mixed hyperlipidemia Hypertensive kidney disease with stage 3a chronic kidney disease (HCC) Primary insomnia Persistent disorder of initiating or maintaining sleep Gastroesophageal reflux disease, unspecified whether esophagitis present 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 Pre-operative examination Preoperative examination, unspecified Iron deficiency anemia, unspecified iron deficiency anemia type Impaired fasting glucose Bilateral carotid artery stenosis Occlusion and stenosis of carotid artery without mention of cerebral infarction TIA (transient ischemic attack) Unspecified transient cerebral ischemia Primary osteoarthritis of right hip- Primary Primary localized osteoarthrosis, pelvic region and thigh Pre-op examination Preoperative examination, unspecified Primary osteoarthritis of right hip Primary localized osteoarthrosis, pelvic region and thigh [facility]* Diagnosis 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)- Primary Paroxysmal A-fib (HCC) Atrial fibrillation Mixed hyperlipidemia Hypertensive kidney disease with stage 3a chronic kidney disease (HCC) Primary insomnia Persistent disorder of initiating or maintaining sleep Gastroesophageal reflux disease, unspecified whether esophagitis present 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 Pre-operative examination Preoperative examination, unspecified Iron deficiency anemia, unspecified iron deficiency anemia type Impaired fasting glucose Bilateral carotid artery stenosis Occlusion and stenosis of carotid artery without mention of cerebral infarction TIA (transient ischemic attack) Unspecified transient cerebral ischemia Primary osteoarthritis of right hip- Primary Primary localized osteoarthrosis, pelvic region and thigh Primary osteoarthritis of right hip Primary localized osteoarthrosis, pelvic region and thigh [facility] Diagnosis 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)- Primary Paroxysmal A-fib (HCC) Atrial fibrillation Mixed hyperlipidemia Hypertensive kidney disease with stage 3a chronic kidney disease (HCC) Primary insomnia Persistent disorder of initiating or maintaining sleep Gastroesophageal reflux disease, unspecified whether esophagitis present 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 Pre-operative examination Preoperative examination, unspecified Iron deficiency anemia, unspecified iron deficiency anemia type Impaired fasting glucose Bilateral carotid artery stenosis Occlusion and stenosis of carotid artery without mention of cerebral infarction TIA (transient ischemic attack) Unspecified transient cerebral ischemia Paroxysmal atrial fibrillation (HCC) Atrial fibrillation 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 Primary localized osteoarthrosis, pelvic region and thigh [facility] Diagnosis 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)- Primary Paroxysmal A-fib (HCC) Atrial fibrillation Mixed hyperlipidemia Hypertensive kidney disease with stage 3a chronic kidney disease (HCC) Primary insomnia Persistent disorder of initiating or maintaining sleep Gastroesophageal reflux disease, unspecified whether esophagitis present 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 Pre-operative examination Preoperative examination, unspecified Iron deficiency anemia, unspecified iron deficiency anemia type Impaired fasting glucose Bilateral carotid artery stenosis Occlusion and stenosis of carotid artery without mention of cerebral infarction TIA (transient ischemic attack) Unspecified transient cerebral ischemia Atherosclerosis of [place] coronary artery of [place] heart without angina pectoris- Primary Screening for depression Encounter for screening examination for other mental health and behavioral disorders Paroxysmal A-fib (HCC) Atrial fibrillation Essential hypertension, benign Gastroesophageal reflux disease without esophagitis Esophageal reflux Mixed hyperlipidemia Hypertensive kidney disease with stage 3a chronic kidney disease (HCC) Falls Unspecified fall Primary osteoarthritis of right hip Primary localized osteoarthrosis, pelvic region and thigh [facility] Diagnosis 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)- Primary Paroxysmal A-fib (HCC) Atrial fibrillation Mixed hyperlipidemia Hypertensive kidney disease with stage 3a chronic kidney disease (HCC) Primary insomnia Persistent disorder of initiating or maintaining sleep Gastroesophageal reflux disease, unspecified whether esophagitis present 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 Pre-operative examination Preoperative examination, unspecified Iron deficiency anemia, unspecified iron deficiency anemia type Impaired fasting glucose Bilateral carotid artery stenosis Occlusion and stenosis of carotid artery without mention of cerebral infarction TIA (transient ischemic attack) Unspecified transient cerebral ischemia Primary osteoarthritis of right hip Primary localized osteoarthrosis, pelvic region and thigh Primary osteoarthritis of right hip Primary localized osteoarthrosis, pelvic region and thigh [facility] Diagnosis 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)- Primary Paroxysmal A-fib (HCC) Atrial fibrillation Mixed hyperlipidemia Hypertensive kidney disease with stage 3a chronic kidney disease (HCC) Primary insomnia Persistent disorder of initiating or maintaining sleep Gastroesophageal reflux disease, unspecified whether esophagitis present 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 Pre-operative examination Preoperative examination, unspecified Iron deficiency anemia, unspecified iron deficiency anemia type Impaired fasting glucose Bilateral carotid artery stenosis Occlusion and stenosis of carotid artery without mention of cerebral infarction TIA (transient ischemic attack) Unspecified transient cerebral ischemia Pre-operative examination- Primary Preoperative examination, unspecified 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) Hypertensive kidney disease with stage 3a chronic kidney disease (HCC) Stage 3a chronic kidney disease (HCC) Mixed hyperlipidemia Paroxysmal A-fib (HCC) Atrial fibrillation Gastroesophageal reflux disease, unspecified whether esophagitis present 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 Iron deficiency anemia, unspecified iron deficiency anemia type Impaired fasting glucose Bilateral carotid artery stenosis Occlusion and stenosis of carotid artery without mention of cerebral infarction TIA (transient ischemic attack) Unspecified transient cerebral ischemia Primary insomnia Persistent disorder of initiating or maintaining sleep RBBB Right bundle branch block Primary osteoarthritis of right hip Primary localized osteoarthrosis, pelvic region and thigh * Assessment & Plan Note - Anne Alexander APRN.CNP - 08/30/2024 12:23 PM EST Associated Problem(s): RBBB Assessment: complete RBBB, chronic on EKG, asymptomatic, following cardiology * Assessment & Plan Note - Anne Alexander APRN.CNP - 08/30/2024 12:21 PM EST Associated Problem(s): Insomnia, unspecified Assessment: rx as needed * Assessment & Plan Note - Anne Alexander APRN.CNP - 08/30/2024 12:20 PM EST Associated Problem(s): TIA (transient ischemic attack) Assessment: hx, likely related unknown pAfib at the time of TIA * Assessment & Plan Note - Anne Alexander APRN.CNP - 08/30/2024 12:20 PM EST Associated Problem(s): Bilateral carotid artery stenosis Assessment: right 20-39%, left 60-79% Carotid US 08/2023, PCP monitoring, * Assessment & Plan Note - Anne Alexander APRN.CNP - 08/30/2024 12:20 PM EST Associated Problem(s): Impaired fasting glucose Assessment: diet controlled, new A1c pending Hemoglobin A1C (%) Date Value 04/15/2024 6.1 04/16/2021 5.7 * Assessment & Plan Note - Anne Alexander APRN.CNP - 08/30/2024 12:20 PM EST Associated Problem(s): Iron deficiency anemia Assessment: hx, iron studies add to labs Hemoglobin (g/dL) Date Value 08/30/2024 12.7 08/31/2021 14.8 Hematocrit (%) Date Value 08/30/2024 40.0 08/31/2021 46.9 WBC (k/uL) Date Value 08/30/2024 5.55 08/31/2021 5.45 * Assessment & Plan Note - Anne Alexander APRN.CNP - 08/30/2024 12:19 PM EST Associated Problem(s): Chronic ITP (idiopathic thrombocytopenia) (HCC) Assessment: hx, chronic, initial hematology consult 2020, PCP has been monitoring since, email to anesthesia for chart review Platelet Count Date Value Ref Range Status 08/30/2024 88 (L) 150 - 400 k/uL Final Comment: No clot detected. * Assessment & Plan Note - Anne Alexander APRN.CNP - 08/30/2024 12:18 PM EST Associated Problem(s): Esophageal reflux Assessment: controlled on rx * Assessment & Plan Note - Anne Alexander APRN.CNP - 08/30/2024 12:18 PM EST Associated Problem(s): Paroxysmal A-fib (HCC) Assessment: controlled on rx, daily Eliquis, instructions received to hold 3 days prior to surgery * Assessment & Plan Note - Anne Alexander APRN.CNP - 08/30/2024 12:18 PM EST Associated Problem(s): Mixed hyperlipidemia Assessment: c/w statin * Assessment & Plan Note - Anne Alexander APRN.CNP - 08/30/2024 12:18 PM EST Associated Problem(s): Stage 3a chronic kidney disease (HCC) Assessment: Creatinine Date Value Ref Range Status 08/30/2024 1.32 (H) 0.73 - 1.22 mg/dL Final 05/02/2024 1.27 (H) 0.73 - 1.22 mg/dL Final 04/15/2024 1.28 (H) 0.73 - 1.22 mg/dL Final 01/11/2024 1.42 (H) 0.73 - 1.22 mg/dL Final * Assessment & Plan Note - Anne Alexander APRN.CNP - 08/30/2024 12:18 PM EST Associated Problem(s): Hypertensive kidney disease with stage 3a chronic kidney disease (HCC) Assessment: controlled on rx * Assessment & Plan Note - Anne Alexander APRN.CNP - 08/30/2024 12:17 PM EST Associated Problem(s): 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pectoris (HCC) Assessment: s/p cardiac stents, 1985 and 2007, was still taking Plavix until recently was told to stop after last OV below when cardiology was questioned about AC instructions. Received cardiac optimization below. TE 04/05/2024 AC instructions Request sent to me to discuss recommendations for holding Plavix prior to upcoming hip surgery. Reviewed recent OV with Dr. Heranndez. Patient is s/p CABG in 1985 and stents in 2007 for which he has been managed on Plavix. He has a recent history of PAF which he is on Eliquis for OAC. He has been cleared to hold Eliquis for 3 days prior to planned hip surgery. Current trends show that patient with CAD who have been stable with no recent intervention or PCI can be managed on Eliquis alone to help decrease bleeding risk on dual therapy. Please call the patient and ask him to stop plavix for now and continue Eliquis. Hold Eliquis as recommended prior to surgery and resume at the discretion of the surgeon. Brittani Mace APRN.CNP 03/02/2024 Dr. Tavares ASSESSMENT/PLAN: Preoperative cardiovascular exam Patient notes possible need for right hip surgery He will be an intermediate to higher cardiac risk He has no cardiac symptoms and remains in sinus He may hold Eliquis for 2-3 days prior to surgery and restart after safe from a surgical standpoint. Paroxysmal atrial fibrillation - sinus with frequent PACs on today's ekg - found to have AF RVR at admission to [facility] 09/2023 - converted to SR on admission - echo on admission normal EF, grade II DD, moderate LAE. - started on Toprol 50 mg daily and Eliquis 5 mg BID - regular on exam today - Toprol decreased to 25 mg daily last visit as he was concerned with low BP readings (increased to50 mg with RVR in [facility]) - [facility] 10/2023 no AF noted but had pSVT Coronary artery disease involving [place] coronary artery of [place] heart without angina pectoris - s/p CABGx 3 1985, PCI stent - 2007 - plavix 75 mg daily, Toprol 50 daily, simvastatin 40 mg and Imdur 15 mg daily - Continue secondary prevention Essential hypertension, benign - optimal control today >> patient voiced concerns about lower BP since starting Toprol for his AF. - Encouraged dietary sodium restriction/DASH diet - Recommended regular aerobic exercise. - Reviewed risks of HTN and principles of treatment - Goal of BP <130/80 Mixed hyperlipidemia - optimal control with LDL 59, 03/2023 and goal at < 70 - Continue current medication (simvastatin 40 mg, ezetimibe 10 mg) TIA (transient ischemic attack) - ? Related to undiagnosed AF - on Eliquis, Plavix and BB now We had a very long discussion reviewing the pathophysiology, testing and treatment options for Atrial Fibrillation. I discussed the risk of a thromboembolic event from this rhythm in reference to [id number] scoring and the risk of anticoagulation if needed according to the HAS-BLED scoring and oth er contributing risks. We discussed some of the causative factors often leading to AF including, but not limited to, hypertension, thyroid, sleep apnea and possible CAD. We will follow him periodically to help with secondary prevention watch for any recurrence paroxysmal atrial fibrillation. He should continue anticoagulation and beta-bryan. He is an intermediate to higher cardiac risk for surgery and may hold Eliquis 48 to 72 hrs preop. Thank you for allowing me the privilege of participating in the care of your patient. Please do nothesitate to contact me if there are any questions. Jeanie Tavares, DO, FACC, FCCP, FACOI [facility]* Diagnosis 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)- Primary Paroxysmal A-fib (HCC) Atrial fibrillation Mixed hyperlipidemia Hypertensive kidney disease with stage 3a chronic kidney disease (HCC) Primary insomnia Persistent disorder of initiating or maintaining sleep Gastroesophageal reflux disease, unspecified whether esophagitis present 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 Pre-operative examination Preoperative examination, unspecified Iron deficiency anemia, unspecified iron deficiency anemia type Impaired fasting glucose Bilateral carotid artery stenosis Occlusion and stenosis of carotid artery without mention of cerebral infarction TIA (transient ischemic attack) Unspecified transient cerebral ischemia Pre-operative examination- Primary Preoperative examination, unspecified 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) Hypertensive kidney disease with stage 3a chronic kidney disease (HCC) Stage 3a chronic kidney disease (HCC) Mixed hyperlipidemia Paroxysmal A-fib (HCC) Atrial fibrillation Gastroesophageal reflux disease, unspecified whether esophagitis present 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 Iron deficiency anemia, unspecified iron deficiency anemia type Impaired fasting glucose Bilateral carotid artery stenosis Occlusion and stenosis of carotid artery without mention of cerebral infarction TIA (transient ischemic attack) Unspecified transient cerebral ischemia Primary insomnia Persistent disorder of initiating or maintaining sleep RBBB Right bundle branch block Thrombocytopenia (HCC)- Primary Thrombocytopenia, unspecified Chronic right hip pain Pain in joint, pelvic region and thigh [facility]* Diagnosis 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)- Primary Paroxysmal A-fib (HCC) Atrial fibrillation Mixed hyperlipidemia Hypertensive kidney disease with stage 3a chronic kidney disease (HCC) Primary insomnia Persistent disorder of initiating or maintaining sleep Gastroesophageal reflux disease, unspecified whether esophagitis present 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 Pre-operative examination Preoperative examination, unspecified Iron deficiency anemia, unspecified iron deficiency anemia type Impaired fasting glucose Bilateral carotid artery stenosis Occlusion and stenosis of carotid artery without mention of cerebral infarction TIA (transient ischemic attack) Unspecified transient cerebral ischemia Pre-operative examination- Primary Preoperative examination, unspecified 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) Hypertensive kidney disease with stage 3a chronic kidney disease (HCC) Stage 3a chronic kidney disease (HCC) Mixed hyperlipidemia Paroxysmal A-fib (HCC) Atrial fibrillation Gastroesophageal reflux disease, unspecified whether esophagitis present 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 Iron deficiency anemia, unspecified iron deficiency anemia type Impaired fasting glucose Bilateral carotid artery stenosis Occlusion and stenosis of carotid artery without mention of cerebral infarction TIA (transient ischemic attack) Unspecified transient cerebral ischemia Primary insomnia Persistent disorder of initiating or maintaining sleep RBBB Right bundle branch block Thrombocytopenia (HCC)- Primary Thrombocytopenia, unspecified [facility]* Diagnosis 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)- Primary Paroxysmal A-fib (HCC) Atrial fibrillation Mixed hyperlipidemia Hypertensive kidney disease with stage 3a chronic kidney disease (HCC) Primary insomnia Persistent disorder of initiating or maintaining sleep Gastroesophageal reflux disease, unspecified whether esophagitis present 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 Pre-operative examination Preoperative examination, unspecified Iron deficiency anemia, unspecified iron deficiency anemia type Impaired fasting glucose Bilateral carotid artery stenosis Occlusion and stenosis of carotid artery without mention of cerebral infarction TIA (transient ischemic attack) Unspecified transient cerebral ischemia Pre-operative examination- Primary Preoperative examination, unspecified 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) Hypertensive kidney disease with stage 3a chronic kidney disease (HCC) Stage 3a chronic kidney disease (HCC) Mixed hyperlipidemia Paroxysmal A-fib (HCC) Atrial fibrillation Gastroesophageal reflux disease, unspecified whether esophagitis present 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 Iron deficiency anemia, unspecified iron deficiency anemia type Impaired fasting glucose Bilateral carotid artery stenosis Occlusion and stenosis of carotid artery without mention of cerebral infarction TIA (transient ischemic attack) Unspecified transient cerebral ischemia Primary insomnia Persistent disorder of initiating or maintaining sleep RBBB Right bundle branch block Atherosclerosis of [place] coronary artery of [place] heart without angina pectoris- Primary Iron deficiency anemia, unspecified iron deficiency anemia type Dyspepsia Dyspepsia and other specified disorders of function of stomach Dysphagia, unspecified type Primary osteoarthritis of right hip Primary localized osteoarthrosis, pelvic region and thigh Spinal stenosis, lumbar region, without neurogenic claudication Chronic right hip pain Pain in joint, pelvic region and thigh Thrombocytopenia (HCC) Thrombocytopenia, unspecified Dizziness Dizziness and giddiness [facility]* Diagnosis 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)- Primary Paroxysmal A-fib (HCC) Atrial fibrillation Mixed hyperlipidemia Hypertensive kidney disease with stage 3a chronic kidney disease (HCC) Primary insomnia Persistent disorder of initiating or maintaining sleep Gastroesophageal reflux disease, unspecified whether esophagitis present 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 Pre-operative examination Preoperative examination, unspecified Iron deficiency anemia, unspecified iron deficiency anemia type Impaired fasting glucose Bilateral carotid artery stenosis Occlusion and stenosis of carotid artery without mention of cerebral infarction TIA (transient ischemic attack) Unspecified transient cerebral ischemia Pre-operative examination- Primary Preoperative examination, unspecified 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) Hypertensive kidney disease with stage 3a chronic kidney disease (HCC) Stage 3a chronic kidney disease (HCC) Mixed hyperlipidemia Paroxysmal A-fib (HCC) Atrial fibrillation Gastroesophageal reflux disease, unspecified whether esophagitis present 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 Iron deficiency anemia, unspecified iron deficiency anemia type Impaired fasting glucose Bilateral carotid artery stenosis Occlusion and stenosis of carotid artery without mention of cerebral infarction TIA (transient ischemic attack) Unspecified transient cerebral ischemia Primary insomnia Persistent disorder of initiating or maintaining sleep RBBB Right bundle branch block Thrombocytopenia (HCC)- Primary Thrombocytopenia, unspecified [facility]* Diagnosis 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)- Primary Paroxysmal A-fib (HCC) Atrial fibrillation Mixed hyperlipidemia Hypertensive kidney disease with stage 3a chronic kidney disease (HCC) Primary insomnia Persistent disorder of initiating or maintaining sleep Gastroesophageal reflux disease, unspecified whether esophagitis present 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 Pre-operative examination Preoperative examination, unspecified Iron deficiency anemia, unspecified iron deficiency anemia type Impaired fasting glucose Bilateral carotid artery stenosis Occlusion and stenosis of carotid artery without mention of cerebral infarction TIA (transient ischemic attack) Unspecified transient cerebral ischemia Pre-operative examination- Primary Preoperative examination, unspecified 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) Hypertensive kidney disease with stage 3a chronic kidney disease (HCC) Stage 3a chronic kidney disease (HCC) Mixed hyperlipidemia Paroxysmal A-fib (HCC) Atrial fibrillation Gastroesophageal reflux disease, unspecified whether esophagitis present 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 Iron deficiency anemia, unspecified iron deficiency anemia type Impaired fasting glucose Bilateral carotid artery stenosis Occlusion and stenosis of carotid artery without mention of cerebral infarction TIA (transient ischemic attack) Unspecified transient cerebral ischemia Primary insomnia Persistent disorder of initiating or maintaining sleep RBBB Right bundle branch block Status post right hip replacement- Primary Hip joint replacement by other means [facility]* Diagnosis 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)- Primary Paroxysmal A-fib (HCC) Atrial fibrillation Mixed hyperlipidemia Hypertensive kidney disease with stage 3a chronic kidney disease (HCC) Primary insomnia Persistent disorder of initiating or maintaining sleep Gastroesophageal reflux disease, unspecified whether esophagitis present 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 Pre-operative examination Preoperative examination, unspecified Iron deficiency anemia, unspecified iron deficiency anemia type Impaired fasting glucose Bilateral carotid artery stenosis Occlusion and stenosis of carotid artery without mention of cerebral infarction TIA (transient ischemic attack) Unspecified transient cerebral ischemia Pre-operative examination- Primary Preoperative examination, unspecified 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) Hypertensive kidney disease with stage 3a chronic kidney disease (HCC) Stage 3a chronic kidney disease (HCC) Mixed hyperlipidemia Paroxysmal A-fib (HCC) Atrial fibrillation Gastroesophageal reflux disease, unspecified whether esophagitis present 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 Iron deficiency anemia, unspecified iron deficiency anemia type Impaired fasting glucose Bilateral carotid artery stenosis Occlusion and stenosis of carotid artery without mention of cerebral infarction TIA (transient ischemic attack) Unspecified transient cerebral ischemia Primary insomnia Persistent disorder of initiating or maintaining sleep RBBB Right bundle branch block Primary osteoarthritis of right hip- Primary Primary localized osteoarthrosis, pelvic region and thigh Primary osteoarthritis of right hip Primary localized osteoarthrosis, pelvic region and thigh [facility]* Diagnosis 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)- Primary Paroxysmal A-fib (HCC) Atrial fibrillation Mixed hyperlipidemia Hypertensive kidney disease with stage 3a chronic kidney disease (HCC) Primary insomnia Persistent disorder of initiating or maintaining sleep Gastroesophageal reflux disease, unspecified whether esophagitis present 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 Pre-operative examination Preoperative examination, unspecified Iron deficiency anemia, unspecified iron deficiency anemia type Impaired fasting glucose Bilateral carotid artery stenosis Occlusion and stenosis of carotid artery without mention of cerebral infarction TIA (transient ischemic attack) Unspecified transient cerebral ischemia Pre-operative examination- Primary Preoperative examination, unspecified 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) Hypertensive kidney disease with stage 3a chronic kidney disease (HCC) Stage 3a chronic kidney disease (HCC) Mixed hyperlipidemia Paroxysmal A-fib (HCC) Atrial fibrillation Gastroesophageal reflux disease, unspecified whether esophagitis present 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 Iron deficiency anemia, unspecified iron deficiency anemia type Impaired fasting glucose Bilateral carotid artery stenosis Occlusion and stenosis of carotid artery without mention of cerebral infarction TIA (transient ischemic attack) Unspecified transient cerebral ischemia Primary insomnia Persistent disorder of initiating or maintaining sleep RBBB Right bundle branch block Pre-operative examination- Primary Preoperative examination, unspecified Primary insomnia Persistent disorder of initiating or maintaining sleep 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 pectoris ([facility]) Essential hypertension, benign Hypertensive kidney disease with stage 3a chronic kidney disease ([facility]) Mixed hyperlipidemia Paroxysmal A-fib ([facility]) Atrial fibrillation RBBB Right bundle branch block Gastroesophageal reflux disease, unspecified whether esophagitis present Serum calcium elevated Hypercalcemia Chronic ITP (idiopathic thrombocytopenia) ([facility]) Immune thrombocytopenic purpura Iron deficiency anemia, unspecified iron deficiency anemia type Impaired fasting glucose Bilateral carotid artery stenosis Occlusion and stenosis of carotid artery without mention of cerebral infarction TIA (transient ischemic attack) Unspecified transient cerebral ischemia Primary osteoarthritis of right hip Primary localized osteoarthrosis, pelvic region and thigh * Assessment & Plan Note - Anne Alexander APRN.CNP - 09/30/2024 11:56 AM EST Associated Problem(s): TIA (transient ischemic attack) Assessment: hx, likely related unknown pAfib at the time of TIA * Assessment & Plan Note - Anne Alexander APRN.CNP - 09/30/2024 11:56 AM EST Associated Problem(s): Bilateral carotid artery stenosis Assessment: right 20-39%, left 60-79% Carotid US 08/2023, PCP monitoring, * Assessment & Plan Note - Anne Alexander APRN.CNP - 09/30/2024 11:55 AM EST Associated Problem(s): Impaired fasting glucose Assessment: diet controlled Hemoglobin A1C (%) Date Value 08/30/2024 5.7 04/16/2021 5.7 * Assessment & Plan Note - Anne Alexander APRN.CNP - 09/30/2024 11:55 AM EST Associated Problem(s): Iron deficiency anemia Assessment: hx, iron studies add to labs Hemoglobin (g/dL) Date Value 09/19/2024 11.9 08/31/2021 14.8 Hematocrit (%) Date Value 09/19/2024 36.6 08/31/2021 46.9 WBC (k/uL) Date Value 09/19/2024 9.61 08/31/2021 5.45 * Assessment & Plan Note - Anne Alexander APRN.CNP - 09/30/2024 11:54 AM EST Associated Problem(s): Chronic ITP (idiopathic thrombocytopenia) (HCC) Assessment: hx, chronic, initial hematology consult 2020, PCP has been monitoring since, surgery cancelled 09/13/2024 due to platelets day of surgery down to 64, had consult with hematology, received optimization, pt to recheck CBC 10/06/2024 Platelet Count Date Value Ref Range Status 09/19/2024 122 (L) 150 - 400 k/uL Final * Assessment & Plan Note - Anne Alexander APRN.CNP - 09/30/2024 11:52 AM EST Associated Problem(s): Serum calcium elevated Assessment: hx Calcium, Total Date Value Ref Range Status 08/30/2024 9.8 8.5 - 10.2 mg/dL Final * Assessment & Plan Note - Anne Alexander APRN.CNP - 09/30/2024 11:52 AM EST Associated Problem(s): Esophageal reflux Assessment: controlled on rx * Assessment & Plan Note - Anne Alexander APRN.CNP - 09/30/2024 11:52 AM EST Associated Problem(s): RBBB Assessment: complete RBBB, chronic on EKG, asymptomatic, following cardiology * Assessment & Plan Note - Anne Alexander APRN.CNP - 09/30/2024 11:52 AM EST Associated Problem(s): Paroxysmal A-fib (HCC) Assessment: controlled on rx, daily Eliquis, instructions received to hold 3 days prior to surgery * Assessment & Plan Note - Anne Alexander APRN.CNP - 09/30/2024 11:51 AM EST Associated Problem(s): Mixed hyperlipidemia Assessment: c/w statin * Assessment & Plan Note - Anne Alexander APRN.CNP - 09/30/2024 11:51 AM EST Associated Problem(s): Hypertensive kidney disease with stage 3a chronic kidney disease (HCC) Assessment: Creatinine Date Value Ref Range Status 08/30/2024 1.32 (H) 0.73 - 1.22 mg/dL Final 05/02/2024 1.27 (H) 0.73 - 1.22 mg/dL Final 04/15/2024 1.28 (H) 0.73 - 1.22 mg/dL Final 01/11/2024 1.42 (H) 0.73 - 1.22 mg/dL Final * Assessment & Plan Note - Anne Alexander APRN.CNP - 09/30/2024 11:51 AM EST Associated Problem(s): Essential hypertension, benign Assessment: controlled on rx Last 14 BP Last 14 Encounter BP Readings: Date: BP: 09/30/2024 130/78 09/19/2024 166/84 09/16/2024 132/64 2024 147/92 08/30/2024 140/64 08/02/2024 136/64 07/13/2024 139/65 05/26/2024 128/76 05/23/2024 128/75 05/06/2024 155/75 05/02/2024 150/80 04/15/2024 132/68 03/21/2024 122/56 03/02/2024 128/60 * Assessment & Plan Note - Anne Alexander APRN.CNP - 09/30/2024 11:50 AM EST Associated Problem(s): 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pectoris (HCC) Assessment: s/p cardiac stents, 1985 and 2007, previously received cardiac optimization TE 04/05/[address] Alonzo, offer pt surgery date of 10/07/24. He is agreeable. He will hold plavix starting 09/29 and eliquis 10/04. Patient verbalized this plan several times. He will also get a CBC on 10/06 prior to surgery. 03/02/2024 Dr. Tavares ASSESSMENT/PLAN: Preoperative cardiovascular exam Patient notes possible need for right hip surgery He will be an intermediate to higher cardiac risk He has no cardiac symptoms and remains in sinus He may hold Eliquis for 2-3 days prior to surgery and restart after safe from a surgical standpoint. Paroxysmal atrial fibrillation - sinus with frequent PACs on today's ekg - found to have AF RVR at admission to [facility] 09/2023 - converted to SR on admission - echo on admission normal EF, grade II DD, moderate LAE. - started on Toprol 50 mg daily and Eliquis 5 mg BID - regular on exam today - Toprol decreased to 25 mg daily last visit as he was concerned with low BP readings (increased to50 mg with RVR in [facility]) - ZIO 10/2023 no AF noted but had pSVT Coronary artery disease involving [place] coronary artery of [place] heart without angina pectoris - s/p CABGx 3 1985, PCI stent - 2007 - plavix 75 mg daily, Toprol 50 daily, simvastatin 40 mg and Imdur 15 mg daily - Continue secondary prevention Essential hypertension, benign - optimal control today >> patient voiced concerns about lower BP since starting Toprol for his AF. - Encouraged dietary sodium restriction/DASH diet - Recommended regular aerobic exercise. - Reviewed risks of HTN and principles of treatment - Goal of BP <130/80 Mixed hyperlipidemia - optimal control with LDL 59, 03/2023 and goal at < 70 - Continue current medication (simvastatin 40 mg, ezetimibe 10 mg) TIA (transient ischemic attack) - ? Related to undiagnosed AF - on Eliquis, Plavix and BB now We had a very long discussion reviewing the pathophysiology, testing and treatment options for Atrial Fibrillation. I discussed the risk of a thromboembolic event from this rhythm in reference to [id number] scoring and the risk of anticoagulation if needed according to the HAS-BLED scoring and oth er contributing risks. We discussed some of the causative factors often leading to AF including, but not limited to, hypertension, thyroid, sleep apnea and possible CAD. We will follow him periodically to help with secondary prevention watch for any recurrence paroxysmal atrial fibrillation. He should continue anticoagulation and beta-bryan. He is an intermediate to higher cardiac risk for surgery and may hold Eliquis 48 to 72 hrs preop. Thank you for allowing me the privilege of participating in the care of your patient. Please do nothesitate to contact me if there are any questions. Jeanie Tavares, DO, FACC, FCCP, FACOI * Assessment & Plan Note - Anne Alexander APRN.CNP - 09/30/2024 11:49 AM EST Associated Problem(s): Insomnia, unspecified Assessment: rx as needed [facility] Diagnosis 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)- Primary Paroxysmal A-fib (HCC) Atrial fibrillation Mixed hyperlipidemia Hypertensive kidney disease with stage 3a chronic kidney disease (HCC) Primary insomnia Persistent disorder of initiating or maintaining sleep Gastroesophageal reflux disease, unspecified whether esophagitis present 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 Pre-operative examination Preoperative examination, unspecified Iron deficiency anemia, unspecified iron deficiency anemia type Impaired fasting glucose Bilateral carotid artery stenosis Occlusion and stenosis of carotid artery without mention of cerebral infarction TIA (transient ischemic attack) Unspecified transient cerebral ischemia Pre-operative examination- Primary Preoperative examination, unspecified 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) Hypertensive kidney disease with stage 3a chronic kidney disease (HCC) Stage 3a chronic kidney disease (HCC) Mixed hyperlipidemia Paroxysmal A-fib (HCC) Atrial fibrillation Gastroesophageal reflux disease, unspecified whether esophagitis present 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 Iron deficiency anemia, unspecified iron deficiency anemia type Impaired fasting glucose Bilateral carotid artery stenosis Occlusion and stenosis of carotid artery without mention of cerebral infarction TIA (transient ischemic attack) Unspecified transient cerebral ischemia Primary insomnia Persistent disorder of initiating or maintaining sleep RBBB Right bundle branch block Pre-operative examination- Primary Preoperative examination, unspecified Primary insomnia Persistent disorder of initiating or maintaining sleep 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) Essential hypertension, benign Hypertensive kidney disease with stage 3a chronic kidney disease (HCC) Mixed hyperlipidemia Paroxysmal A-fib (HCC) Atrial fibrillation RBBB Right bundle branch block Gastroesophageal reflux disease, unspecified whether esophagitis present Serum calcium elevated Hypercalcemia 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 Iron deficiency anemia, unspecified iron deficiency anemia type Impaired fasting glucose Bilateral carotid artery stenosis Occlusion and stenosis of carotid artery without mention of cerebral infarction TIA (transient ischemic attack) Unspecified transient cerebral ischemia Status post right hip replacement- Primary Hip joint replacement by other means Primary osteoarthritis of right hip Primary localized osteoarthrosis, pelvic region and thigh [facility] Diagnosis 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)- Primary Paroxysmal A-fib (HCC) Atrial fibrillation Mixed hyperlipidemia Hypertensive kidney disease with stage 3a chronic kidney disease (HCC) Primary insomnia Persistent disorder of initiating or maintaining sleep Gastroesophageal reflux disease, unspecified whether esophagitis present 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 Pre-operative examination Preoperative examination, unspecified Iron deficiency anemia, unspecified iron deficiency anemia type Impaired fasting glucose Bilateral carotid artery stenosis Occlusion and stenosis of carotid artery without mention of cerebral infarction TIA (transient ischemic attack) Unspecified transient cerebral ischemia Pre-operative examination- Primary Preoperative examination, unspecified 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) Hypertensive kidney disease with stage 3a chronic kidney disease (HCC) Stage 3a chronic kidney disease (HCC) Mixed hyperlipidemia Paroxysmal A-fib (HCC) Atrial fibrillation Gastroesophageal reflux disease, unspecified whether esophagitis present 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 Iron deficiency anemia, unspecified iron deficiency anemia type Impaired fasting glucose Bilateral carotid artery stenosis Occlusion and stenosis of carotid artery without mention of cerebral infarction TIA (transient ischemic attack) Unspecified transient cerebral ischemia Primary insomnia Persistent disorder of initiating or maintaining sleep RBBB Right bundle branch block Pre-operative examination- Primary Preoperative examination, unspecified Primary insomnia Persistent disorder of initiating or maintaining sleep 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) Essential hypertension, benign Hypertensive kidney disease with stage 3a chronic kidney disease (HCC) Mixed hyperlipidemia Paroxysmal A-fib (HCC) Atrial fibrillation RBBB Right bundle branch block Gastroesophageal reflux disease, unspecified whether esophagitis present Serum calcium elevated Hypercalcemia 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 Iron deficiency anemia, unspecified iron deficiency anemia type Impaired fasting glucose Bilateral carotid artery stenosis Occlusion and stenosis of carotid artery without mention of cerebral infarction TIA (transient ischemic attack) Unspecified transient cerebral ischemia Status post right hip replacement- Primary Hip joint replacement by other means [facility] Diagnosis 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)- Primary Paroxysmal A-fib (HCC) Atrial fibrillation Mixed hyperlipidemia Hypertensive kidney disease with stage 3a chronic kidney disease (HCC) Primary insomnia Persistent disorder of initiating or maintaining sleep Gastroesophageal reflux disease, unspecified whether esophagitis present 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 Pre-operative examination Preoperative examination, unspecified Iron deficiency anemia, unspecified iron deficiency anemia type Impaired fasting glucose Bilateral carotid artery stenosis Occlusion and stenosis of carotid artery without mention of cerebral infarction TIA (transient ischemic attack) Unspecified transient cerebral ischemia Pre-operative examination- Primary Preoperative examination, unspecified 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) Hypertensive kidney disease with stage 3a chronic kidney disease (HCC) Stage 3a chronic kidney disease (HCC) Mixed hyperlipidemia Paroxysmal A-fib (HCC) Atrial fibrillation Gastroesophageal reflux disease, unspecified whether esophagitis present 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 Iron deficiency anemia, unspecified iron deficiency anemia type Impaired fasting glucose Bilateral carotid artery stenosis Occlusion and stenosis of carotid artery without mention of cerebral infarction TIA (transient ischemic attack) Unspecified transient cerebral ischemia Primary insomnia Persistent disorder of initiating or maintaining sleep RBBB Right bundle branch block Pre-operative examination- Primary Preoperative examination, unspecified Primary insomnia Persistent disorder of initiating or maintaining sleep 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) Essential hypertension, benign Hypertensive kidney disease with stage 3a chronic kidney disease (HCC) Mixed hyperlipidemia Paroxysmal A-fib (HCC) Atrial fibrillation RBBB Right bundle branch block Gastroesophageal reflux disease, unspecified whether esophagitis present Serum calcium elevated Hypercalcemia 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 Iron deficiency anemia, unspecified iron deficiency anemia type Impaired fasting glucose Bilateral carotid artery stenosis Occlusion and stenosis of carotid artery without mention of cerebral infarction TIA (transient ischemic attack) Unspecified transient cerebral ischemia Status post right hip replacement Hip joint replacement by other means [facility] Diagnosis 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)- Primary Paroxysmal A-fib (HCC) Atrial fibrillation Mixed hyperlipidemia Hypertensive kidney disease with stage 3a chronic kidney disease (HCC) Primary insomnia Persistent disorder of initiating or maintaining sleep Gastroesophageal reflux disease, unspecified whether esophagitis present 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 Pre-operative examination Preoperative examination, unspecified Iron deficiency anemia, unspecified iron deficiency anemia type Impaired fasting glucose Bilateral carotid artery stenosis Occlusion and stenosis of carotid artery without mention of cerebral infarction TIA (transient ischemic attack) Unspecified transient cerebral ischemia Pre-operative examination- Primary Preoperative examination, unspecified 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) Hypertensive kidney disease with stage 3a chronic kidney disease (HCC) Stage 3a chronic kidney disease (HCC) Mixed hyperlipidemia Paroxysmal A-fib (HCC) Atrial fibrillation Gastroesophageal reflux disease, unspecified whether esophagitis present 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 Iron deficiency anemia, unspecified iron deficiency anemia type Impaired fasting glucose Bilateral carotid artery stenosis Occlusion and stenosis of carotid artery without mention of cerebral infarction TIA (transient ischemic attack) Unspecified transient cerebral ischemia Primary insomnia Persistent disorder of initiating or maintaining sleep RBBB Right bundle branch block Pre-operative examination- Primary Preoperative examination, unspecified Primary insomnia Persistent disorder of initiating or maintaining sleep 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) Essential hypertension, benign Hypertensive kidney disease with stage 3a chronic kidney disease (HCC) Mixed hyperlipidemia Paroxysmal A-fib (HCC) Atrial fibrillation RBBB Right bundle branch block Gastroesophageal reflux disease, unspecified whether esophagitis present Serum calcium elevated Hypercalcemia 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 Iron deficiency anemia, unspecified iron deficiency anemia type Impaired fasting glucose Bilateral carotid artery stenosis Occlusion and stenosis of carotid artery without mention of cerebral infarction TIA (transient ischemic attack) Unspecified transient cerebral ischemia Status post right hip replacement- Primary Hip joint replacement by other means [facility] Diagnosis 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)- Primary Paroxysmal A-fib (HCC) Atrial fibrillation Mixed hyperlipidemia Hypertensive kidney disease with stage 3a chronic kidney disease (HCC) Primary insomnia Persistent disorder of initiating or maintaining sleep Gastroesophageal reflux disease, unspecified whether esophagitis present 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 Pre-operative examination Preoperative examination, unspecified Iron deficiency anemia, unspecified iron deficiency anemia type Impaired fasting glucose Bilateral carotid artery stenosis Occlusion and stenosis of carotid artery without mention of cerebral infarction TIA (transient ischemic attack) Unspecified transient cerebral ischemia Pre-operative examination- Primary Preoperative examination, unspecified 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) Hypertensive kidney disease with stage 3a chronic kidney disease (HCC) Stage 3a chronic kidney disease (HCC) Mixed hyperlipidemia Paroxysmal A-fib (HCC) Atrial fibrillation Gastroesophageal reflux disease, unspecified whether esophagitis present 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 Iron deficiency anemia, unspecified iron deficiency anemia type Impaired fasting glucose Bilateral carotid artery stenosis Occlusion and stenosis of carotid artery without mention of cerebral infarction TIA (transient ischemic attack) Unspecified transient cerebral ischemia Primary insomnia Persistent disorder of initiating or maintaining sleep RBBB Right bundle branch block Pre-operative examination- Primary Preoperative examination, unspecified Primary insomnia Persistent disorder of initiating or maintaining sleep 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) Essential hypertension, benign Hypertensive kidney disease with stage 3a chronic kidney disease (HCC) Mixed hyperlipidemia Paroxysmal A-fib (HCC) Atrial fibrillation RBBB Right bundle branch block Gastroesophageal reflux disease, unspecified whether esophagitis present Serum calcium elevated Hypercalcemia 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 Iron deficiency anemia, unspecified iron deficiency anemia type Impaired fasting glucose Bilateral carotid artery stenosis Occlusion and stenosis of carotid artery without mention of cerebral infarction TIA (transient ischemic attack) Unspecified transient cerebral ischemia Thrombocytopenia (HCC)- Primary Thrombocytopenia, unspecified Anemia, unspecified type [facility] Diagnosis 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)- Primary Paroxysmal A-fib (HCC) Atrial fibrillation Mixed hyperlipidemia Hypertensive kidney disease with stage 3a chronic kidney disease (HCC) Primary insomnia Persistent disorder of initiating or maintaining sleep Gastroesophageal reflux disease, unspecified whether esophagitis present 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 Pre-operative examination Preoperative examination, unspecified Iron deficiency anemia, unspecified iron deficiency anemia type Impaired fasting glucose Bilateral carotid artery stenosis Occlusion and stenosis of carotid artery without mention of cerebral infarction TIA (transient ischemic attack) Unspecified transient cerebral ischemia Pre-operative examination- Primary Preoperative examination, unspecified 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) Hypertensive kidney disease with stage 3a chronic kidney disease (HCC) Stage 3a chronic kidney disease (HCC) Mixed hyperlipidemia Paroxysmal A-fib (HCC) Atrial fibrillation Gastroesophageal reflux disease, unspecified whether esophagitis present 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 Iron deficiency anemia, unspecified iron deficiency anemia type Impaired fasting glucose Bilateral carotid artery stenosis Occlusion and stenosis of carotid artery without mention of cerebral infarction TIA (transient ischemic attack) Unspecified transient cerebral ischemia Primary insomnia Persistent disorder of initiating or maintaining sleep RBBB Right bundle branch block Pre-operative examination- Primary Preoperative examination, unspecified Primary insomnia Persistent disorder of initiating or maintaining sleep 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) Essential hypertension, benign Hypertensive kidney disease with stage 3a chronic kidney disease (HCC) Mixed hyperlipidemia Paroxysmal A-fib (HCC) Atrial fibrillation RBBB Right bundle branch block Gastroesophageal reflux disease, unspecified whether esophagitis present Serum calcium elevated Hypercalcemia 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 Iron deficiency anemia, unspecified iron deficiency anemia type Impaired fasting glucose Bilateral carotid artery stenosis Occlusion and stenosis of carotid artery without mention of cerebral infarction TIA (transient ischemic attack) Unspecified transient cerebral ischemia Status post right hip replacement Hip joint replacement by other means [facility] Diagnosis 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 pectoris- Primary Paroxysmal A-fib (HCC) Atrial fibrillation Mixed hyperlipidemia Hypertensive kidney disease with stage 3a chronic kidney disease (HCC) Primary insomnia Persistent disorder of initiating or maintaining sleep Gastroesophageal reflux disease, unspecified whether esophagitis present 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 Pre-operative examination Preoperative examination, unspecified Iron deficiency anemia, unspecified iron deficiency anemia type Impaired fasting glucose Bilateral carotid artery stenosis Occlusion and stenosis of carotid artery without mention of cerebral infarction TIA (transient ischemic attack) Unspecified transient cerebral ischemia Pre-operative examination- Primary Preoperative examination, unspecified 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 pectoris Hypertensive kidney disease with stage 3a chronic kidney disease (HCC) Stage 3a chronic kidney disease (HCC) Mixed hyperlipidemia Paroxysmal A-fib (HCC) Atrial fibrillation Gastroesophageal reflux disease, unspecified whether esophagitis present 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 Iron deficiency anemia, unspecified iron deficiency anemia type Impaired fasting glucose Bilateral carotid artery stenosis Occlusion and stenosis of carotid artery without mention of cerebral infarction TIA (transient ischemic attack) Unspecified transient cerebral ischemia Primary insomnia Persistent disorder of initiating or maintaining sleep RBBB Right bundle branch block Pre-operative examination- Primary Preoperative examination, unspecified Primary insomnia Persistent disorder of initiating or maintaining sleep 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 pectoris Essential hypertension, benign Hypertensive kidney disease with stage 3a chronic kidney disease (HCC) Mixed hyperlipidemia Paroxysmal A-fib (HCC) Atrial fibrillation RBBB Right bundle branch block Gastroesophageal reflux disease, unspecified whether esophagitis present Serum calcium elevated Hypercalcemia 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 Iron deficiency anemia, unspecified iron deficiency anemia type Impaired fasting glucose Bilateral carotid artery stenosis Occlusion and stenosis of carotid artery without mention of cerebral infarction TIA (transient ischemic attack) Unspecified transient cerebral ischemia Essential hypertension, benign- Primary Coronary artery disease involving [place] coronary artery of [place] heart without angina pectoris Paroxysmal A-fib (HCC) Atrial fibrillation [facility] Diagnosis Onset Date Resolution Status Admit Date Anticoagulated acute October 4:06pm GI bleed acute November 07 4:06pm Acute on chronic anemia chronic M arch 2024 4:06pm [facility] Work Phone: Evaluation note* Diagnosis 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 pectoris- Primary Paroxysmal A-fib (HCC) Atrial fibrillation Mixed hyperlipidemia Hypertensive kidney disease with stage 3a chronic kidney disease (HCC) Primary insomnia Persistent disorder of initiating or maintaining sleep Gastroesophageal reflux disease, unspecified whether esophagitis present 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 Pre-operative examination Preoperative examination, unspecified Iron deficiency anemia, unspecified iron deficiency anemia type Impaired fasting glucose Bilateral carotid artery stenosis Occlusion and stenosis of carotid artery without mention of cerebral infarction TIA (transient ischemic attack) Unspecified transient cerebral ischemia Pre-operative examination- Primary Preoperative examination, unspecified 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 pectoris Hypertensive kidney disease with stage 3a chronic kidney disease (HCC) Stage 3a chronic kidney disease (HCC) Mixed hyperlipidemia Paroxysmal A-fib (HCC) Atrial fibrillation Gastroesophageal reflux disease, unspecified whether esophagitis present 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 Iron deficiency anemia, unspecified iron deficiency anemia type Impaired fasting glucose Bilateral carotid artery stenosis Occlusion and stenosis of carotid artery without mention of cerebral infarction TIA (transient ischemic attack) Unspecified transient cerebral ischemia Primary insomnia Persistent disorder of initiating or maintaining sleep RBBB Right bundle branch block Pre-operative examination- Primary Preoperative examination, unspecified Primary insomnia Persistent disorder of initiating or maintaining sleep 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 pectoris Essential hypertension, benign Hypertensive kidney disease with stage 3a chronic kidney disease (HCC) Mixed hyperlipidemia Paroxysmal A-fib (HCC) Atrial fibrillation RBBB Right bundle branch block Gastroesophageal reflux disease, unspecified whether esophagitis present Serum calcium elevated Hypercalcemia 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 Iron deficiency anemia, unspecified iron deficiency anemia type Impaired fasting glucose Bilateral carotid artery stenosis Occlusion and stenosis of carotid artery without mention of cerebral infarction TIA (transient ischemic attack) Unspecified transient cerebral ischemia Anemia, unspecified type- Primary [facility] Diagnosis 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 pectoris- Primary Paroxysmal A-fib (HCC) Atrial fibrillation Mixed hyperlipidemia Hypertensive kidney disease with stage 3a chronic kidney disease (HCC) Primary insomnia Persistent disorder of initiating or maintaining sleep Gastroesophageal reflux disease, unspecified whether esophagitis present Chronic ITP (idiopathic thrombocytopenia) ([facility]) Immune thrombocytopenic purpura Pre-operative examination Preoperative examination, unspecified Iron deficiency anemia, unspecified iron deficiency anemia type Impaired fasting glucose Bilateral carotid artery stenosis Occlusion and stenosis of carotid artery without mention of cerebral infarction TIA (transient ischemic attack) Unspecified transient cerebral ischemia Pre-operative examination- Primary Preoperative examination, unspecified 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 pectoris Hypertensive kidney disease with stage 3a chronic kidney disease (HCC) Stage 3a chronic kidney disease (HCC) Mixed hyperlipidemia Paroxysmal A-fib (HCC) Atrial fibrillation Gastroesophageal reflux disease, unspecified whether esophagitis present Chronic ITP (idiopathic thrombocytopenia) ([facility]) Immune thrombocytopenic purpura Iron deficiency anemia, unspecified iron deficiency anemia type Impaired fasting glucose Bilateral carotid artery stenosis Occlusion and stenosis of carotid artery without mention of cerebral infarction TIA (transient ischemic attack) Unspecified transient cerebral ischemia Primary insomnia Persistent disorder of initiating or maintaining sleep RBBB Right bundle branch block Pre-operative examination- Primary Preoperative examination, unspecified Primary insomnia Persistent disorder of initiating or maintaining sleep 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 pectoris Essential hypertension, benign Hypertensive kidney disease with stage 3a chronic kidney disease ([facility]) Mixed hyperlipidemia Paroxysmal A-fib ([facility]) Atrial fibrillation RBBB Right bundle branch block Gastroesophageal reflux disease, unspecified whether esophagitis present Serum calcium elevated Hypercalcemia Chronic ITP (idiopathic thrombocytopenia) ([facility]) Immune thrombocytopenic purpura Iron deficiency anemia, unspecified iron deficiency anemia type Impaired fasting glucose Bilateral carotid artery stenosis Occlusion and stenosis of carotid artery without mention of cerebral infarction TIA (transient ischemic attack) Unspecified transient cerebral ischemia Status post right hip replacement- Primary Hip joint replacement by other means [facility] Diagnosis 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 pectoris- Primary Paroxysmal A-fib ([facility]) Atrial fibrillation Mixed hyperlipidemia Hypertensive kidney disease with stage 3a chronic kidney disease ([facility]) Primary insomnia Persistent disorder of initiating or maintaining sleep Gastroesophageal reflux disease, unspecified whether esophagitis present Chronic ITP (idiopathic thrombocytopenia) ([facility]) Immune thrombocytopenic purpura Pre-operative examination Preoperative examination, unspecified Iron deficiency anemia, unspecified iron deficiency anemia type Impaired fasting glucose Bilateral carotid artery stenosis Occlusion and stenosis of carotid artery without mention of cerebral infarction TIA (transient ischemic attack) Unspecified transient cerebral ischemia Pre-operative examination- Primary Preoperative examination, unspecified 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 pectoris Hypertensive kidney disease with stage 3a chronic kidney disease (HCC) Stage 3a chronic kidney disease (HCC) Mixed hyperlipidemia Paroxysmal A-fib (HCC) Atrial fibrillation Gastroesophageal reflux disease, unspecified whether esophagitis present 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 Iron deficiency anemia, unspecified iron deficiency anemia type Impaired fasting glucose Bilateral carotid artery stenosis Occlusion and stenosis of carotid artery without mention of cerebral infarction TIA (transient ischemic attack) Unspecified transient cerebral ischemia Primary insomnia Persistent disorder of initiating or maintaining sleep RBBB Right bundle branch block Pre-operative examination- Primary Preoperative examination, unspecified Primary insomnia Persistent disorder of initiating or maintaining sleep 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 pectoris Essential hypertension, benign Hypertensive kidney disease with stage 3a chronic kidney disease (HCC) Mixed hyperlipidemia Paroxysmal A-fib (HCC) Atrial fibrillation RBBB Right bundle branch block Gastroesophageal reflux disease, unspecified whether esophagitis present Serum calcium elevated Hypercalcemia 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 Iron deficiency anemia, unspecified iron deficiency anemia type Impaired fasting glucose Bilateral carotid artery stenosis Occlusion and stenosis of carotid artery without mention of cerebral infarction TIA (transient ischemic attack) Unspecified transient cerebral ischemia Status post right hip replacement Hip joint replacement by other means [facility] Diagnosis 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 pectoris- Primary Paroxysmal A-fib (HCC) Atrial fibrillation Mixed hyperlipidemia Hypertensive kidney disease with stage 3a chronic kidney disease (HCC) Primary insomnia Persistent disorder of initiating or maintaining sleep Gastroesophageal reflux disease, unspecified whether esophagitis present 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 Pre-operative examination Preoperative examination, unspecified Iron deficiency anemia, unspecified iron deficiency anemia type Impaired fasting glucose Bilateral carotid artery stenosis Occlusion and stenosis of carotid artery without mention of cerebral infarction TIA (transient ischemic attack) Unspecified transient cerebral ischemia Pre-operative examination- Primary Preoperative examination, unspecified 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 pectoris Hypertensive kidney disease with stage 3a chronic kidney disease (HCC) Stage 3a chronic kidney disease (HCC) Mixed hyperlipidemia Paroxysmal A-fib (HCC) Atrial fibrillation Gastroesophageal reflux disease, unspecified whether esophagitis present 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 Iron deficiency anemia, unspecified iron deficiency anemia type Impaired fasting glucose Bilateral carotid artery stenosis Occlusion and stenosis of carotid artery without mention of cerebral infarction TIA (transient ischemic attack) Unspecified transient cerebral ischemia Primary insomnia Persistent disorder of initiating or maintaining sleep RBBB Right bundle branch block Pre-operative examination- Primary Preoperative examination, unspecified Primary insomnia Persistent disorder of initiating or maintaining sleep 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 pectoris Essential hypertension, benign Hypertensive kidney disease with stage 3a chronic kidney disease (HCC) Mixed hyperlipidemia Paroxysmal A-fib (HCC) Atrial fibrillation RBBB Right bundle branch block Gastroesophageal reflux disease, unspecified whether esophagitis present Serum calcium elevated Hypercalcemia 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 Iron deficiency anemia, unspecified iron deficiency anemia type Impaired fasting glucose Bilateral carotid artery stenosis Occlusion and stenosis of carotid artery without mention of cerebral infarction TIA (transient ischemic attack) Unspecified transient cerebral ischemia Stenosis of left carotid artery- Primary Occlusion and stenosis of carotid artery without mention of cerebral infarction [facility]* Diagnosis 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 pectoris- Primary Paroxysmal A-fib (HCC) Atrial fibrillation Mixed hyperlipidemia Hypertensive kidney disease with stage 3a chronic kidney disease (HCC) Primary insomnia Persistent disorder of initiating or maintaining sleep Gastroesophageal reflux disease, unspecified whether esophagitis present 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 Pre-operative examination Preoperative examination, unspecified Iron deficiency anemia, unspecified iron deficiency anemia type Impaired fasting glucose Bilateral carotid artery stenosis Occlusion and stenosis of carotid artery without mention of cerebral infarction TIA (transient ischemic attack) Unspecified transient cerebral ischemia Pre-operative examination- Primary Preoperative examination, unspecified 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 pectoris Hypertensive kidney disease with stage 3a chronic kidney disease (HCC) Stage 3a chronic kidney disease (HCC) Mixed hyperlipidemia Paroxysmal A-fib (HCC) Atrial fibrillation Gastroesophageal reflux disease, unspecified whether esophagitis present 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 Iron deficiency anemia, unspecified iron deficiency anemia type Impaired fasting glucose Bilateral carotid artery stenosis Occlusion and stenosis of carotid artery without mention of cerebral infarction TIA (transient ischemic attack) Unspecified transient cerebral ischemia Primary insomnia Persistent disorder of initiating or maintaining sleep RBBB Right bundle branch block Pre-operative examination- Primary Preoperative examination, unspecified Primary insomnia Persistent disorder of initiating or maintaining sleep 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 pectoris Essential hypertension, benign Hypertensive kidney disease with stage 3a chronic kidney disease (HCC) Mixed hyperlipidemia Paroxysmal A-fib (HCC) Atrial fibrillation RBBB Right bundle branch block Gastroesophageal reflux disease, unspecified whether esophagitis present Serum calcium elevated Hypercalcemia 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 Iron deficiency anemia, unspecified iron deficiency anemia type Impaired fasting glucose Bilateral carotid artery stenosis Occlusion and stenosis of carotid artery without mention of cerebral infarction TIA (transient ischemic attack) Unspecified transient cerebral ischemia Pre-diabetes- Primary Other abnormal glucose BPH with obstruction/lower urinary tract symptoms Hypertrophy of prostate with urinary obstruction and other lower urinary tract symptoms (LUTS) Primary osteoarthritis of right hip Primary localized osteoarthrosis, pelvic region and thigh Spinal stenosis, lumbar region, without neurogenic claudication Iron deficiency anemia, unspecified iron deficiency anemia type Dyspepsia Dyspepsia and other specified disorders of function of stomach Dysphagia, unspecified type Fatigue, unspecified type Screening for lipid disorders Coronary artery disease involving [place] coronary artery of [place] heart without angina pectoris [facility]* Diagnosis 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 pectoris- Primary Paroxysmal A-fib (HCC) Atrial fibrillation Mixed hyperlipidemia Hypertensive kidney disease with stage 3a chronic kidney disease (HCC) Primary insomnia Persistent disorder of initiating or maintaining sleep Gastroesophageal reflux disease, unspecified whether esophagitis present 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 Pre-operative examination Preoperative examination, unspecified Iron deficiency anemia, unspecified iron deficiency anemia type Impaired fasting glucose Bilateral carotid artery stenosis Occlusion and stenosis of carotid artery without mention of cerebral infarction TIA (transient ischemic attack) Unspecified transient cerebral ischemia Pre-operative examination- Primary Preoperative examination, unspecified 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 pectoris Hypertensive kidney disease with stage 3a chronic kidney disease (HCC) Stage 3a chronic kidney disease (HCC) Mixed hyperlipidemia Paroxysmal A-fib (HCC) Atrial fibrillation Gastroesophageal reflux disease, unspecified whether esophagitis present 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 Iron deficiency anemia, unspecified iron deficiency anemia type Impaired fasting glucose Bilateral carotid artery stenosis Occlusion and stenosis of carotid artery without mention of cerebral infarction TIA (transient ischemic attack) Unspecified transient cerebral ischemia Primary insomnia Persistent disorder of initiating or maintaining sleep RBBB Right bundle branch block Pre-operative examination- Primary Preoperative examination, unspecified Primary insomnia Persistent disorder of initiating or maintaining sleep 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 pectoris Essential hypertension, benign Hypertensive kidney disease with stage 3a chronic kidney disease (HCC) Mixed hyperlipidemia Paroxysmal A-fib (HCC) Atrial fibrillation RBBB Right bundle branch block Gastroesophageal reflux disease, unspecified whether esophagitis present Serum calcium elevated Hypercalcemia 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 Iron deficiency anemia, unspecified iron deficiency anemia type Impaired fasting glucose Bilateral carotid artery stenosis Occlusion and stenosis of carotid artery without mention of cerebral infarction TIA (transient ischemic attack) Unspecified transient cerebral ischemia Edema, lower extremity- Primary Edema [facility] Diagnosis 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 pectoris- Primary Paroxysmal A-fib (HCC) Atrial fibrillation Mixed hyperlipidemia Hypertensive kidney disease with stage 3a chronic kidney disease (HCC) Primary insomnia Persistent disorder of initiating or maintaining sleep Gastroesophageal reflux disease, unspecified whether esophagitis present 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 Pre-operative examination Preoperative examination, unspecified Iron deficiency anemia, unspecified iron deficiency anemia type Impaired fasting glucose Bilateral carotid artery stenosis Occlusion and stenosis of carotid artery without mention of cerebral infarction TIA (transient ischemic attack) Unspecified transient cerebral ischemia Pre-operative examination- Primary Preoperative examination, unspecified 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 pectoris Hypertensive kidney disease with stage 3a chronic kidney disease (HCC) Stage 3a chronic kidney disease (HCC) Mixed hyperlipidemia Paroxysmal A-fib (HCC) Atrial fibrillation Gastroesophageal reflux disease, unspecified whether esophagitis present 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 Iron deficiency anemia, unspecified iron deficiency anemia type Impaired fasting glucose Bilateral carotid artery stenosis Occlusion and stenosis of carotid artery without mention of cerebral infarction TIA (transient ischemic attack) Unspecified transient cerebral ischemia Primary insomnia Persistent disorder of initiating or maintaining sleep RBBB Right bundle branch block Pre-operative examination- Primary Preoperative examination, unspecified Primary insomnia Persistent disorder of initiating or maintaining sleep 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 pectoris Essential hypertension, benign Hypertensive kidney disease with stage 3a chronic kidney disease (HCC) Mixed hyperlipidemia Paroxysmal A-fib (HCC) Atrial fibrillation RBBB Right bundle branch block Gastroesophageal reflux disease, unspecified whether esophagitis present Serum calcium elevated Hypercalcemia 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 Iron deficiency anemia, unspecified iron deficiency anemia type Impaired fasting glucose Bilateral carotid artery stenosis Occlusion and stenosis of carotid artery without mention of cerebral infarction TIA (transient ischemic attack) Unspecified transient cerebral ischemia 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 pectoris Controlled type 2 diabetes mellitus without complication, without long-term current use of insulin (HCC) [facility] Author Fiorella Ramos [facility] September 24, 2023 4:47pm Note Date/Time September 24, 2023 4 :22pm [facility] Medical Records Department [address] [place] [address] H&P Exam - Hospitalist 09/24/23 1606 MR#: [id number] Acct: [id number] Name: ANGIE DUTTON Rep #:[id number] : 1940 83 From: Fiorella Ramos MD PCP: [place] Pe[facility] Status:ADM I N Location: [place] [address] HPI - General General Date of Admission: 09/24/23 Date of Service: 09/24/23 Chief Complaint: Chest pain, racing heart HPI Narrative ANIGE DUTTON, is an 83-year-old male with history of CAD status post CABG and stenting, TIA, hypertension, GERD who presented to [facility] 09/24/2023 with retrosternal chest discomfort. It started at about 11 AM when he was at the grocery store and lasted for 10 seconds and went away. When he went home and started to walk the dog the discomfort came back and he noticed that his heart was racing. He held his Plavix for 5 days prior to getting a hip injection yesterday and his right hip denies any other anticoagulation or history of A-fib. In the ED patient initially with heart rate in low 100s and blood pressure 158/97 saturating 99% on room air. Patient with white blood cellcount of 20.2, creatinine 1.52 with unclear baseline, BNP 548 with a D-dimer of 0.66. Initial troponin within normal limits. Chest x- ray with increased markings at left lung base with blunting of left costophrenic angle. Patient found to be in A-fib with RVR. Given new onset A-fib with RVR, elevated BNP, elevated white blood cell count hospitalist contacted for admission. Patient evaluated at bedside and he reports the brief feeling of chest pain and shortness of breath for 10 to 20 seconds at the grocery store that resolved and came back when he was walking his dog, symptoms resolved after he was given Cardizem in the ED and heart rate improved. Denies any swelling, reports some chronic diarrhea but denies any other focal complaints. [facility] Medical History (Updated 09/24/23 @ 16:[address] Fiorella Ramos MD) CAD (coronary artery disease) Former tobacco use GERD (gastroesophageal reflux disease) History of chronic hypertension HLD (hyperlipidemia) Hypertension Myocardial infarct Right leg weakness Vertigo Home Medications clopidogrel 75 mg tablet 75 mg PO DAILY anti platelet 08/23/19 [History Last Taken 06/25/21] isosorbide mononitrate 30 mg tablet,extended release 24 hr 15 mg PO DAILY HEART 08/23/19 [History Last Taken 06/25/21] metoprolol succinate 25 mg tablet,extended release 24 hr 25 mg PO DAILY blood pressure 08/23/19 [History Last Taken 06/25/21] cyclobenzaprine 5 mg tablet 5 mg PO QHS MUSCLE 06/25/21 [History Last Taken 06/24/21] gabapentin 400 mg capsule 400 mg PO BID NERVE PAIN 06/25/21 [History Last Taken 06/25/21] pantoprazole 20 mg tablet,delayed release 20 mg PO BID GERD 06/25/21 [History Last Taken 06/25/21] simvastatin 40 mg tablet 40 mg PO DAILY CHOLESTEROL 06/25/21 [History Last Taken 06/24/21] trazodone 50 mg tablet 50 mg PO QHS SLEEP 06/25/21 [History Last Taken 06/24/21] ezetimibe 10 mg tablet 10 mg PO DAILY 09/24/23 [History Last Taken Unknown] Allergy/AdvReac Type Severity Reaction Status Date / Time Sulfa (Sulfonamide Allergy Unknown Verified 09/24/23 14:02 Antibiotics) Family History Mother Heart disease Father Heart disease Surgical History H/O right heart catheterization S/p bilateral carpal tunnel release S/P bilateral cataract extraction S/P bilateral foot surgery S/P CABG x 3 S/P tonsillectomy and adenoidectomy Status post arthroscopic knee surgery Stented coronary artery Social History household members: spouse Smoking Status: Former smoker how long ago did patient quit smoking: Quit when he was 44 y/o, 1/2 ppd since 10 years old. alcohol intake: never substance use type: does not use ROS ROS Narrative General: Denies fever/chills HENT: Denies headache, denies stuffy nose, denies sore throat EYES: Denies changes in vision Resp: Denies cough, denies shortness of breath Cardiac: Had some chest discomfort and racing feeling GI: Some chronic diarrhea denies nausea/vomiting : Denies changes in urination Extremity: Denies swelling MSK: Denies weakness Neuro: Denies any numbness/tingling Heme: Denies any bleeding or bruising Skin: Denies rashes Psychiatric: No complaints voiced Vital Signs Vital Signs Vital Signs: 09/24/23 14:02 09/24/23 14:08 09/24/23 14:11 Temperature 97.2 F L Temperature Source Temporal Pulse Rate 108 H 123 H Respiratory Rate 18 16 Respiratory Effort Normal Non-Labored Blood Pressure 158/97 H 161/86 H Blood Pressure Mean 117 111 Pulse Ox 99 97 Oxygen Delivery Method Room Air Room Air 09/24/23 14:53 09/24/23 15:27 09/24/23 15:28 Temperature Temperature Source Pulse Rate 88 86 88 Respiratory Rate 16 18 18 Respiratory Effort Blood Pressure 141/72 H 108/72 116/89 H Blood Pressure Mean 95 84 98 Pulse Ox 96 98 96 Oxygen Delivery Method Room Air Room Air Weight Weight: 79.107 kg Body Mass Index (BMI) 27.3 Physical Exam Narrative General: Alert, oriented, no apparent distress HEENT: Atraumatic, normocephalic Eyes: Anicteric, normal conjunctiva, extraocular movements grossly intact Neck: Supple Respiratory: Somewhat diminished at the bases, normal respiratory effort Cardiovascular: Irregularly irregular GI: Soft, nontender, nondistended Extremities: No edema Musculoskeletal: Moving all extremities Neuro: No overt focal neurological deficits Skin: No rashes appreciated Psych: Cooperative Results Lab / Micro Data 09/24/23 14:10 09/24/23 14:10 Labs: Laboratory Results - last 24 hr 09/24/23 14:10: WBC 20.2 H, RBC 5.03, Hgb 14.4, Hct 44.7, MCV 88.9, MCH 28.6, MCHC 32.2, RDW Std Deviation 44.0 H, RDW Coeff of Jaqueline 13.7, Plt Count 135 L, MPV12.7 H, Immature Gran % (Auto) 1.200 H, Neut % (Auto) 90.0 H, Lymph % (Auto) 6.5L, [place] % (Auto) 2.1, Eos % (Auto) 0.0, Baso % (Auto) 0.2, Absolute Neuts (auto)18.2 H, Absolute Lymphs (auto) 1.31, Nucleated RBC % 0, PT 13.5, INR 1.0, D-Dimer Quant (PE/DVT) 0.66 H*, Sodium 140, Potassium 4.3, Chloride 110 H, Carbon Dioxide 25.0, Anion Gap 5, BUN 17, Creatinine 1.52 H, Estim Creat Clear Calc 33.22, Est GFR (MDRD) Af Amer 56 L, Est GFR (MDRD) Non-Af 47 L, BUN/Creatinine Ratio 11.2, Glucose 123 H, Calcium 10.0, Troponin I High Sens 40, B-Natriuretic Peptide 548.5 H 09/24/23 14:55: Lactic Acid 1.7 09/24/23 15:11: Urine Color Yellow, Urine Clarity Clear, Urine pH 6.0, Ur Specific [place] 1.010, Urine Protein 15 H, Urine Glucose (UA) Normal, Urine Ketones Negative, Urine Occult Blood 50 H, Urine Nitrite Negative, Urine Bilirubin Negative, Urine Urobilinogen Normal, Ur Leukocyte Esterase Negative, Urine RBC 0 SEEN, Urine WBC 0 SEEN, Ur Squamous Epith Cells 0 SEEN, Urine Bacteria 0 SEEN, Urine Mucus 0 SEEN Imaging Radiology Impression Chest X-Ray 09/24/23 14:28 IMPRESSION: Increased markings at the left lung base with blunting of the left costophrenic angle. Follow-up recommended. Electronically Signed: Juan Valdivia MD at 14:52 EST , Assessment & Plan Assessment/Plan (1) Atrial fibrillation with RVR: (2) Osteoarthritis of right hip: QUALIFIERS: Osteoarthritis type: unspecified Qualified Code(s): M16.11 - Unilateral primary osteoarthritis, right hip (3) GERD (gastroesophageal reflux disease): (4) Hypertension: (5) CAD (coronary artery disease): PLAN: Plan # Chest pain in setting of A-fib with RVR -Found to be in afib w/ rvr on EKG on presentation, given dose of cardizem w/ improvement -Admit to telemetry -Increase home metoprolol for rate control, will increase to 50 mg daily so we will give an extra 25 x 1 -Elevated [id number], will start eliquis. Given age greater than 80 and creatinine greater than 1.5 technically meets criteria for the 2.5 twice daily of Eliquis, if creatinine improves tomorrow may be able to convert to the 5 twice daily dosing -BNP 548 without any previous values -CXR w/ increased markings at L lung base w/ blunting of L costophrenic angle -Will obtain echo, last echo 2020 EF 65%, RVSP 36 and flow suggestive of diastolic dysfunction -Initial troponin 40, Trend troponin -Daily weights, I's and O's -Will check TSH -Elevated heart score of 5, may need stress prior to d/c or after d/c pending findings #Hx CAD w/ CABG/PCI and hx TIA -Plavix, statin, Zetia, beta-bryan, Imdur -Lipid panel in AM -Echo -Elevated heart score, pending workup and stability of HR may need further cardiac w/u inpt vs outpt # Leukocytosis -White blood cell count of 20.2 with left shift -Unclear significance, ?related to steroid injection of R hip -UA negative for ifxn -Blood culture sent in ED -Will check Pro-William -Given new onset A-fib we will also check viral panels -If significantly elevated procal or if any other signs or symptoms of infectionwill start antibiotics, if not we will await cultures #CKD stage III unclear subtype -Creatinine 1.52 -Other values were from 2020 in our system but clinisync reveals Cr 1.36 on 04/14/23 -BUN within normal limits, patient does not appear to be dehydrated -Repeat BMP in a.m., if worsening can consider further workup #GERD -Continue PPI #HTN -Continue home medications #OA of R hip -s/p injection 09/23 w/ IR #DVT ppx: Kane Ramos MD Charges/Coding Visit Charges Inpatient E&M: 12274 Init Hosp L2 09/24/23 1647 <Electronically signed by Fiorella Ramos MD> Cosigner Signature (if applicable): CC: Dr. Fiorella Ramos MD; [place] Perera~ Signed [facility] Work Phone: Reason for referral (narrative)* Diagnostic Procedure Only (Routine) - Closed Specialty Diagnoses / Procedures Referred By Contac t Referred To Contact XR IMAGING Diagnoses Right hip pain Procedures XR HIP GENERAL 3V PELV/AP/LAT RIGHT RADEX HIP UNILATERAL WITH PELVIS 2-3 VIEWS Lizeth Saini PA-C [address] [place] [address] Xr Imaging Referral ID Status Reason Start Date Expiration Date V isits Requested Visits Authorized [id number] Closed Auto-Generate d Referral 01/30/2022 03/01/2023 1 1 [facility] for referral (narrative)* Diagnostic Procedure Only (Routine) - Pending Review Specialty Diagnoses / Procedures Referred By Contac t Referred To Contact XR IMAGING Diagnoses Pain in right hip Procedures XR HIP GENERAL 3V PELV/AP/LAT RIGHT RADEX HIP UNILATERAL WITH PELVIS 2-3 VIEWS Cristiano Ramos MD [address] [place] [address] [place] [address] Referral ID Status Reason Start Date Expiration Date Visits Requested Visits Authorized [id number] Pending Review Auto-Generat ed Referral 05/05/2023 06/03/2024 1 1 T [facility] for referral (narrative)* Diagnostic Procedure Only (Routine) - Closed Specialty Diagnoses / Procedures Referred By Contac t Referred To Contact XR IMAGING Diagnoses Pain in right hip Procedures XR HIP GENERAL 3V PELV/AP/LAT RIGHT RADEX HIP UNILATERAL WITH PELVIS 2-3 VIEWS Cristiano Ramos MD [address] [place] [address] [place] [address] Referral ID Status Reason Start Date Expiration Date V isits Requested Visits Authorized [id number] Closed Auto-Generate d Referral 05/05/2023 06/03/2024 1 1 [facility] for referral (narrative)* Diagnostic Procedure Only (Routine) - Closed Specialty Diagnoses / Procedures Referred By Contac t Referred To Contact US IMAGING Diagnoses Increased urinary frequency Procedures US KIDNEY/BLADDER US RETROPERITONEAL REAL TIME W/IMAGE COMPLETE Breanna Chawla, ASSISTANT PORTFOLIO MANAGER [address] [place] [address] [place] [address] Referral ID Status Reason Start Date Expiration Date V isits Requested Visits Authorized [id number] Closed Auto-Generate d Referral 09/30/2023 10/29/2024 1 1 [facility] for referral (narrative)* Outpatient Procedure (Routine) - Authorized Specialty Diagnoses / Procedures [facility] Diagnoses Stenosis of left carotid artery Procedures US CAROTID ARTERIES [facility] DUPLEX SCAN EXTRACRANIAL ART COMPL BI STUDY Thierno Srivastava DO [address] [place] [address] [facility] [place] [address] [place] [address] Referral ID Status Reason Start Date Expiration Date Visits Requested Visits Authorized [id number] Authorized Auto-Generat ed Referral 10/20/2023 10/19/2024 1 1 [facility] for referral (narrative)* Diagnostic Procedure Only (Routine) - Authorized Specialty Diagnoses / Procedures Referred By Contac t Referred To Contact US IMAGING Diagnoses BPH with obstruction/lower urinary tract symptoms Procedures US PELVIS BLADDER US PELVIC NONOBSTETRIC IMAGE DCMTN LIMITED/F/U Lizeth Saini PA-C [address] [place] [address] [place] [address] Referral ID Status Reason Start Date Expiration Date Visits Requested Visits Authorized [id number] Authorized Auto-Generat ed Referral 01/07/2024 08/23/2024 1 1 * Consult, Test, Treat (Routine) - Authorized Specialty Diagnoses / Procedures Referred By Contac t Referred To Contact Orthopedics Diagnoses Arthritis of right hip Procedures CONSULT TO ORTHOPAEDICS OFFICE/OUTPATIENT [facility] 60 MINUTES Lizeth Saini PA-C [address] [place] [address] Referral ID Status Reason Start Date Expiration Date Visits Requested Visits Authorized [id number] Authorized PCP Requested Referral 01/07/2024 01/06/2025 1 1 [facility] for referral (narrative)* Diagnostic Procedure Only (Routine) - Closed Specialty Diagnoses / Procedures Referred By Contac t Referred To Contact XR IMAGING Diagnoses Pain in right hip Procedures XR HIP GENERAL 3V PELV/AP/LAT RIGHT RADEX HIP UNILATERAL WITH PELVIS 2-3 VIEWS Asif Gonzales PA-C [address] [address] [place] [address] Referral ID Status Reason Start Date Expiration Date V isits Requested Visits Authorized [id number] Closed Auto-Generate d Referral 02/24/2024 03/25/2025 1 1 [facility] for referral (narrative)* Diagnostic Procedure Only (Routine) - New Request Specialty Diagnoses / Procedures Referred By Contac t Referred To Contact XR IMAGING Diagnoses Status post right hip replacement Procedures XR HIP GENERAL 3V PELV/AP/LAT RIGHT RADEX HIP UNILATERAL WITH PELVIS 2-3 VIEWS Ryan Alonzo MD [address] [place] [address] [place] [address] Referral ID Status Reason Start Date Expiration Date Visits Requested Visits Authorized [id number] New Request Auto-Generat ed Referral 09/27/2024 10/20/2025 1 1 [facility] for referral (narrative)No reason for referral information [facility] Work Phone: [facility] Narrative* Diagnostic Procedure Only (Routine) - Closed Specialty Diagnoses / Procedures Referred By Contac t Referred To Contact XR IMAGING Diagnoses Right hip pain Procedures XR HIP GENERAL 3V PELV/AP/LAT RIGHT RADEX HIP UNILATERAL WITH PELVIS 2-3 VIEWS Lizeth Saini PA-C [address] [place] [address] Xr Imaging Referral ID Status Reason Start Date Expiration Date V isits Requested Visits Authorized [id number] Closed Auto-Generate d Referral 01/30/2022 03/01/2023 1 1 [facility] for visit Narrative* Diagnostic Procedure Only (Routine) - Closed Specialty Diagnoses / Procedures Referred By Contac t Referred To Contact XR IMAGING Diagnoses Pain in right hip Procedures XR HIP GENERAL 3V PELV/AP/LAT RIGHT RADEX HIP UNILATERAL WITH PELVIS 2-3 VIEWS Cristiano Ramos MD [address] [place] [address] [place] [address] Referral ID Status Reason Start Date Expiration Date V isits Requested Visits Authorized [id number] Closed Auto-Generate d Referral 05/05/2023 06/03/2024 1 1 [facility] for visit Narrative* Diagnostic Procedure Only (Routine) - Closed Specialty Diagnoses / Procedures Referred By Contac t Referred To Contact XR IMAGING Diagnoses Pain in right hip Procedures XR HIP GENERAL 3V PELV/AP/LAT RIGHT RADEX HIP UNILATERAL WITH PELVIS 2-3 VIEWS Asif Gonzales PA-C [address] [address] [place] [address] Referral ID Status Reason Start Date Expiration Date V isits Requested Visits Authorized [id number] Closed Auto-Generate d Referral 02/24/2024 03/25/2025 1 1 [facility] for visit Narrative* Diagnostic Procedure Only (Routine) - Closed Specialty Diagnoses / Procedures Referred By Contac t Referred To Contact XR IMAGING Diagnoses Status post right hip replacement Procedures XR HIP GENERAL 3V PELV/AP/LAT RIGHT RADEX HIP UNILATERAL WITH PELVIS 2-3 VIEWS Ryan Alonzo MD [address] [place] [address] Phone: tel: fax: [place] [address] Referral ID Status Reason Start Date Expiration Date V isits Requested Visits Authorized [id number] Closed Auto-Generate d Referral 10/20/2024 11/05/2025 1 1 [facility] for visit Narrative* Diagnostic Procedure Only (Routine) - Closed Specialty Diagnoses / Procedures Referred By Contac t Referred To Contact XR IMAGING Diagnoses Status post right hip replacement Procedures XR HIP GENERAL 3V PELV/AP/LAT RIGHT RADEX HIP UNILATERAL WITH PELVIS 2-3 VIEWS Ryan Alonzo MD [address] [place] [address] Phone: tel: fax: [place] [address] Referral ID Status Reason Start Date Expiration Date V isits Requested Visits Authorized [id number] Closed Auto-Generate d Referral 11/16/2024 12/16/2025 1 1 [facility] Summary Purpose Family History Relationship Condition Age at Onset Recorded Date/T trinidad mother Cardiac disease Unknown father Cardiac disease Unknown Advance Directives Documents on File Type Date Recorded Patient Manager Rn Expl anation Advance Directive(s) 02/14/2021 7:59 AM Advance Directive(s) 11/26/2020 12:29 PM Advance Directive(s) 11/26/2020 12:32 PM Advance Directive(s) 11/19/2020 5:08 PM Documents on File Type Date Recorded Patient Manager Rn Expl anation Advance Directive(s) 02/14/2021 7:59 AM Advance Directive(s) 11/26/2020 12:29 PM Advance Directive(s) 11/26/2020 12:32 PM Advance Directive(s) 11/19/2020 5:08 PM Advance Directive Response Recorded Date/ Time Name of Medical Power of Alcohol And Drug Counselor Elzbieta, POA, wif e September 24, 2023 2:09pm Living Will Yes September 24 2:09pm Power of Alcohol And Drug Counselor Yes September 24, 2023 2:09pm Advance Directive Response Recorded Date/ Time Name of Medical Power of Alcohol And Drug Counselor Elzbieta, POA, wif e September 24, 2023 6:16pm Living Will Yes September 24 6:16pm Power of Alcohol And Drug Counselor Yes September 24, 2023 6:16pm Advance Directive Response Recorded Date/ Time Living Will Yes November 07, 2024 1:36pm Power of Alcohol And Drug Counselor Yes November 07 1:36pm Name of Medical Power of Alcohol And Drug Counselor RICH November 07, 2024 1:36pm Advance Directive Response Recorded Date/ Time Living Will Yes November 07, 2024 5:44pm Do you have a Healthcare Power of Alcohol And Drug Counselor? Yes November 07, 2024 5:44pm Name of Medical Power of Alcohol And Drug Counselor RICH November 07, 2024 5:44pm Advance Directive Response Recorded Date/ Time Living Will Yes November 07, 2024 5:44pm Do you have a Healthcare Power of Alcohol And Drug Counselor? Yes November 07, 2024 5:44pm Name of Medical Power of Alcohol And Drug Counselor RICH November 07, 2024 5:44pm Living Will No November 25, 2024 2:15pm Do you have a Healthcare Power of Alcohol And Drug Counselor? No November 25, 2024 2:15pm Advance Directive Response Recorded Date/ Time Living Will Yes November 07, 2024 5:44pm Do you have a Healthcare Power of Alcohol And Drug Counselor? Yes November 07, 2024 5:44pm Name of Medical Power of Alcohol And Drug Counselor RICH November 07, 2024 5:44pm Living Will No November 25, 2024 6:20pm Do you have a Healthcare Power of Alcohol And Drug Counselor? No November 25, 2024 6:20pm Health Concerns Infection Onset Date Last Indicated Resolved Time COVID-19 Rule-Out 09/13/2021 09/13/2021 2021 4:07 AM EST Reason for Referral Specialty Diagnoses / Procedures Referred By Contac t Referred To Contact [facility] Diagnoses Right hip pain Procedures PT REHAB FOLLOW UP ORDER THERAPEUTIC EXERCISES RE, EA 15 MIN. Brent High, PT [facility] [place] [address] [place] [address] Referral ID Status Reason Start Date Expiration Date Visits Requested Visits Authorized [id number] Authorized PCP Requested Referral Auto-Generate d Referral 02/03/2022 05/06/2022 4 4 Referral ID Status Reason Start Date Expiration Date Visits Requested Visits Authorized [id number] Pending Review PCP Requested Referral Auto-Generate d Referral 03/13/2022 06/11/2022 1 1 Specialty Diagnoses / Procedures Referred By Contac t Referred To Contact Orthopedics Diagnoses Right hip pain Procedures CONSULT TO ORTHOPAEDICS OFFICE/OUTPATIENT [facility] 60-74 MINUTES Lizeth Saini PA-C [address] [place] [address] Referral ID Status Reason Start Date Expiration Date Visits Requested Visits Authorized [id number] Authorized PCP Requested Referral 08/04/2023 1 1 Specialty Diagnoses / Procedures Referred By Contac t Referred To Contact Urology Diagnoses Increased urinary frequency Procedures CONSULT TO UROLOGY Breanna Chawla, ZOË.ASSISTANT PORTFOLIO MANAGER [address] [place] [address] Referral ID Status Reason Start Date Expiration Date Visits Requested Visits Authorized [id number] Ref Not Required PCP Requested Referral 10/12/2023 10/11/2024 1 1 Specialty Diagnoses / Procedures Referred By Contac t Referred To Contact Diagnoses Primary osteoarthritis of right hip Procedures REFER TO [facility] - PREOPERATIVE OPTIMIZATION OFFICE/OUTPATIENT [facility] 60 MINUTES Ryan Alonzo MD [address] [place] [address] Referral ID Status Reason Start Date Expiration Date Visits Requested Visits Authorized [id number] Authorized PCP Requested Referral 02/29/2024 02/28/2025 1 1 Specialty Diagnoses / Procedures Referred By Contac t Referred To Contact Diagnoses Suicide attempt (HCC) Procedures CONSULT TO [facility] ADULT OFFICE/OUTPATIENT [facility] MDM 60 MINUTES Valery Quinteros PROTOZOOLOGIST.ASSISTANT PORTFOLIO MANAGER [address] [place] [address] Referral ID Status Reason Start Date Expiration Date Visits Requested Visits Authorized [id number] Pending Review PCP Requested Referral 03/21/2024 06/19/2024 1 1 Specialty Diagnoses / Procedures Referred By Contac t Referred To Contact Hematology Diagnoses Other hemoglobinopathies (HCC) Thrombocytopenia (HCC) Procedures CONSULT TO HEMATOLOGY OFFICE/OUTPATIENT [facility] MDM 60 MINUTES Valery Quinteros PROTOZOOLOGIST.ASSISTANT PORTFOLIO MANAGER [address] [place] [address] Referral ID Status Reason Start Date Expiration Date Visits Requested Visits Authorized [id number] Authorized PCP Requested Referral 05/03/2024 05/03/2025 1 1 Specialty Diagnoses / Procedures Referred By Contac t Referred To Contact Orthopedics Diagnoses Iron deficiency anemia, unspecified iron deficiency anemia type Primary osteoarthritis of right hip Procedures CONSULT PANEL TO ORTHOPAEDICS CONSULT PANEL TO ORTHOPAEDICS OFFICE/OUTPATIENT [facility] 60 MINUTES Valery Quinteros PROTOZOOLOGIST.ASSISTANT PORTFOLIO MANAGER [address] [place] [address] Referral ID Status Reason Start Date Expiration Date Visits Requested Visits Authorized [id number] Authorized PCP Requested Referral 05/26/2024 05/26/2025 1 1 Specialty Diagnoses / Procedures Referred By Contac t Referred To Contact General Surgery Diagnoses Iron deficiency anemia due to chronic blood loss Procedures CONSULT TO GENERAL SURGERY OFFICE/OUTPATIENT [facility] 60 MINUTES Valery Quinteros PROTOZOOLOGIST.ASSISTANT PORTFOLIO MANAGER [address] [place] [address] Referral ID Status Reason Start Date Expiration Date Visits Requested Visits Authorized [id number] Authorized PCP Requested Referral 05/09/2024 05/02/2025 1 1 Specialty Diagnoses / Procedures Referred By Contac t Referred To Contact Diagnoses Primary osteoarthritis of right hip Procedures [facility] PRE-SURGICAL PLANNING CONSULT Asif Gonzales PA-C [address] [address] Referral ID Status Reason Start Date Expiration Date Visits Requested Visits Authorized [id number] Ref Not Required PCP Requested Referral 07/13/2025 1 1 Specialty Diagnoses / Procedures Referred By Papito sweeney Referred To Contact CT IMAGING Diagnoses Primary osteoarthritis of right hip Procedures CT HIP WO IVCON RIGHT CT LOWER EXTREMITY W/O CONTRAST MATERIAL Asif Gonzales PA-C [address] [address] [place] [address] Referral ID Status Reason Start Date Expiration Date Visits Requested Visits Authorized [id number] Pending Review Auto-Generat ed Referral 08/12/2025 1 1 Referral ID Status Reason Start Date Expiration Date V isits Requested Visits Authorized [id number] Closed Auto-Generate d Referral 07/28/2024 09/26/2024 1 1 Medications Administered Section Inactive Administered Medications - up to 3 most recent administrations Medication Order MAR Action Action Date Dose Rate Site bupivacaine 0.5 % injection (MARCAINE MDV) SUBCUTANEOUS, X (OR/PROCEDURE) PRN, Starting on Thu11/26/22 at 1141, Until Thu11/27/22 at 0303, Intraprocedure Given 11/26/2022 11:41 AM EDT 3 mL Hip, Right lidocaine (PF) 20 mg/mL (2 %) injection (XYLOCAINE) SUBCUTANEOUS, X (OR/PROCEDURE) PRN, Starting on Thu11/26/22 at 1139, Until Thu11/27/22 at 0303, Intraprocedure Given 11/26/2022 11:39 AM EDT 5 mL Hip, Right triamcinolone acetonide injection (KeNALog 40) INTRA-ARTICULAR, X (OR/PROCEDURE) PRN, Starting on Thu11/26/22 at 1142, Until Thu11/27/22 at 0303, Intraprocedure Given 11/26/2022 11:42 AM EDT 80 mg Chief Complaint and Reason for Visit Chief Complaint OSTEOARTHRITIS RT HI P OSTEOARTHRITIS RT HIP AFIB W/ RVR Reason for Visit Osteoarthritis of ri ght hip Atrial fibrillation with RVR CAD (coronary artery disease) GERD (gastroesophageal reflux disease) Osteoarthritis of right hip Hypertension Chief Complaint OSTEOARTHRITIS RT HI P OSTEOARTHRITIS RT HIP AFIB W/ RVR AFIB W/ RVR Reason for Visit Osteoarthritis of ri ght hip Atrial fibrillation with RVR CAD (coronary artery disease) GERD (gastroesophageal reflux disease) Osteoarthritis of right hip Hypertension Chief Complaint OSTEOARTHRITIS RT HI P OSTEOARTHRITIS RT HIP AFIB W/ RVR AFIB W/ RVR AFIB W/ RVR Reason for Visit Osteoarthritis of ri ght hip Atrial fibrillation with RVR CAD (coronary artery disease) GERD (gastroesophageal reflux disease) Osteoarthritis of right hip Hypertension Chief Complaint Admit Date LAB WORK October 17, 2024 5:00am LABWORK October 26, 2024 5:00 am SUSPECTED GIB WITH ACUTE ON CHRONIC ANEM [place] November 07, 2024 4:06pm Reason for Visit Admit Date Anticoagulated November 07, 2024 4:0 6pm GI bleed November 07, 2024 4:0 6pm Acute on chronic anemia November 07, 2024 4:06pm Chief Complaint Admit Date LAB WORK October 17, 2024 5:00am LABWORK October 26, 2024 5:00 am SUSPECTED GIB WITH ACUTE ON CHRONIC ANEM [place] November 07, 2024 4:06pm SUSPECTED GIB WITH ACUTE ON CHRONIC ANEM [place] November 07, 2024 9:24pm SUSPECTED GIB WITH ACUTE ON CHRONIC ANEM IA November 08, 2024 12:20pm SUSPECTED GIB WITH ACUTE ON CHRONIC ANEM IA November 08, 2024 6:13pm SUSPECTED GIB WITH ACUTE ON CHRONIC ANEM IA November 09, 2024 11:52am SUSPECTED GIB WITH ACUTE ON CHRONIC ANEM IA November 10, 2024 11:06am Reason for Visit Admit Date 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) November 07, 2024 4:06pm Anticoagulated November 07, 2024 4:0 6pm GI bleed November 07, 2024 4:0 6pm Acute on chronic anemia November 07, 2024 4:06pm Chief Complaint Admit Date LAB WORK October 17, 2024 5:00am LABWORK October 26, 2024 5:00 am INTERMEDIATE LAB WORK November 07, 2024 4 :00am SUSPECTED GIB WITH ACUTE ON CHRONIC ANEM IA November 07, 2024 4:06pm SUSPECTED GIB WITH ACUTE ON CHRONIC ANEM IA November 07, 2024 9:24pm SUSPECTED GIB WITH ACUTE ON CHRONIC ANEM IA November 08, 2024 12:20pm SUSPECTED GIB WITH ACUTE ON CHRONIC ANEM IA November 08, 2024 6:13pm SUSPECTED GIB WITH ACUTE ON CHRONIC ANEM IA November 09, 2024 11:52am SUSPECTED GIB WITH ACUTE ON CHRONIC ANEM IA November 10, 2024 11:06am LABWORK November 11, 2024 12: 53pm LABWORK November 11, 2024 1:5 0pm Reason for Visit Admit Date 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) November 07, 2024 4:06pm Acute on chronic anemia November 07, 2024 4:06pm GI bleed November 07, 2024 4:0 6pm Anticoagulated November 07, 2024 4:0 6pm Chief Complaint Admit Date LAB WORK October 17, 2024 5:00am LABWORK October 26, 2024 5:00 am INTERMEDIATE LAB WORK November 07, 2024 4 :00am SUSPECTED GIB WITH ACUTE ON CHRONIC ANEM IA November 07, 2024 4:06pm SUSPECTED GIB WITH ACUTE ON CHRONIC ANEM IA November 07, 2024 9:24pm SUSPECTED GIB WITH ACUTE ON CHRONIC ANEM IA November 08, 2024 12:20pm SUSPECTED GIB WITH ACUTE ON CHRONIC ANEM IA November 08, 2024 6:13pm SUSPECTED GIB WITH ACUTE ON CHRONIC ANEM IA November 09, 2024 11:52am SUSPECTED GIB WITH ACUTE ON CHRONIC ANEM IA November 10, 2024 11:06am LAB WORK November 11, 2024 5:0 0am LABWORK November 11, 2024 12: 53pm LABWORK November 11, 2024 1:5 0pm LAB WORK November 16, 2024 5:0 0am CHEST PAIN November 25, 2024 5:39 pm Chief Complaint Admit Date LAB WORK October 17, 2024 5:00am LABWORK October 26, 2024 5:00 am INTERMEDIATE LAB WORK November 07, 2024 4 :00am SUSPECTED GIB WITH ACUTE ON CHRONIC ANEM IA November 07, 2024 4:06pm SUSPECTED GIB WITH ACUTE ON CHRONIC ANEM IA November 07, 2024 9:24pm SUSPECTED GIB WITH ACUTE ON CHRONIC ANEM IA November 08, 2024 12:20pm SUSPECTED GIB WITH ACUTE ON CHRONIC ANEM IA November 08, 2024 6:13pm SUSPECTED GIB WITH ACUTE ON CHRONIC ANEM IA November 09, 2024 11:52am SUSPECTED GIB WITH ACUTE ON CHRONIC ANEM IA November 10, 2024 11:06am LAB WORK November 11, 2024 5:0 0am LABWORK November 11, 2024 12: 53pm LABWORK November 11, 2024 1:5 0pm LAB WORK November 16, 2024 5:0 0am LAB WORK November 21, 2024 4:0 0am CHEST PAIN November 25, 2024 5:39 pm CHEST PAIN November 25, 2024 6:11 pm CHEST PAIN November 26, 2024 7:47 am CHEST PAIN November 26, 2024 12:5 7pm CHEST PAIN November 27, 2024 8:41 am CHEST PAIN November 28, 2024 4:07 pm Reason for Visit Admit Date 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) November 07, 2024 4:06pm Acute on chronic anemia November 07, 2024 4:06pm GI bleed November 07, 2024 4:0 6pm Anticoagulated November 07, 2024 4:0 6pm Chest pain November 25, 2024 5:39 pm Elevated troponin November 25, 2024 5:39 pm Chief Complaint Admit Date LABWORK October 26, 2024 5:00 am INTERMEDIATE LAB WORK November 07, 2024 4 :00am SUSPECTED GIB WITH ACUTE ON CHRONIC ANEM IA November 07, 2024 4:06pm SUSPECTED GIB WITH ACUTE ON CHRONIC ANEM IA November 07, 2024 9:24pm GI BLEED November 08, 2024 10: 00am SUSPECTED GIB WITH ACUTE ON CHRONIC ANEM IA November 08, 2024 12:20pm SUSPECTED GIB WITH ACUTE ON CHRONIC ANEM IA November 08, 2024 6:13pm SUSPECTED GIB WITH ACUTE ON CHRONIC ANEM IA November 09, 2024 11:52am SUSPECTED GIB WITH ACUTE ON CHRONIC ANEM IA November 10, 2024 11:06am LAB WORK November 11, 2024 5:0 0am LABWORK November 11, 2024 12: 53pm LABWORK November 11, 2024 1:5 0pm LAB WORK November 16, 2024 5:0 0am LAB WORK November 21, 2024 4:0 0am LABWORK November 25, 2024 11:0 9am CHEST PAIN November 25, 2024 5:39 pm CHEST PAIN November 25, 2024 6:11 pm CHEST PAIN November 26, 2024 7:47 am CHEST PAIN November 26, 2024 12:5 7pm CHEST PAIN November 27, 2024 8:41 am CHEST PAIN November 28, 2024 4:07 pm LAB WORK November 29, 2024 4:00 am LAB WORK December 05, 2024 5:4 0am LABWORK December 09, 2024 5:0 0am fall February 16, 2025 1:09 pm Additional Source Comments (unrecognized sect ion and content) No Status Records FoundNo Status Records FoundNo Status Records FoundNo Status Records FoundNo Status Records Found INFORMATION SOURCE (unrecogn ized section and content) DATE CREATED AUTHOR 02/15/2018 [facility] DATE CREATED AUTHOR AUTHOR'S ORGANIZ ATION 03/14/2020 [facility] DATE CREATED AUTHOR AUTHOR'S ORGANIZ ATION 12/03/2024 [facility] DATE CREATED AUTHOR AUTHOR'S ORGANIZ ATION 12/21/2024 [facility] DATE CREATED AUTHOR AUTHOR'S ORGANIZ ATION 02/14/2025 [facility] Source Comments (unrecognize d section and content) In the event this informatio n is protected by the Federal Confidentiality of Alcohol and Drug Abuse Patient Records regulations: The Federal rules restrict any use of the information to criminally investigate or prosecute any alcohol or drug abuse patient.[facility] the event this information is protected by the Federal Confidentiality of Alcohol and Drug Abuse Patient Records regulations: The Federal rules restrict any use of the information to criminally investigate or prosecute any alcohol or drug abuse patient.[facility]In the event this information is protected by the Federal Confidentiality of Alcohol and Drug Abuse Patient Records regulations: The Federal rules restrict any use of the information to criminally investigate or prosecute any alcohol or drug abuse patient.[facility]In the event this information is protected by the Federal Confidentiality of Alcohol and Drug Abuse Patient Records regulations: The Federal rules restrict any use of the information to criminally investigate or prosecute any alcohol or drug abuse patient.[facility]In the event this information is protected by the Federal Confidentiality of Alcohol and Drug Abuse Patient Records regulations: The Federal rules restrict any use of the information to criminally investigate or prosecute any alcohol or drug abuse patient.[facility]In the event this information is protected by the Federal Confidentiality of Alcohol and Drug Abuse Patient Records regulations: The Federal rules restrict any use of the information to criminally investigate or prosecute any alcohol or drug abuse patient.[facility]In the event this information is protected by the Federal Confidentiality of Alcohol and Drug Abuse Patient Records regulations: The Federal rules restrict any use of the information to criminally investigate or prosecute any alcohol or drug abuse patient.[facility]In the event this information is protected by the Federal Confidentiality of Alcohol and Drug Abuse Patient Records regulations: The Federal rules restrict any use of the information to criminally investigate or prosecute any alcohol or drug abuse patient.[facility]In the event this information is protected by the Federal Confidentiality of Alcohol and Drug Abuse Patient Records regulations: The Federal rules restrict any use of the information to criminally investigate or prosecute any alcohol or drug abuse patient.[facility]In the event this information is protected by the Federal Confidentiality of Alcohol and Drug Abuse Patient Records regulations: The Federal rules restrict any use of the information to criminally investigate or prosecute any alcohol or drug abuse patient.[facility]In the event this information is protected by the Federal Confidentiality of Alcohol and Drug Abuse Patient Records regulations: The Federal rules restrict any use of the information to criminally investigate or prosecute any alcohol or drug abuse patient.[facility]In the event this information is protected by the Federal Confidentiality of Alcohol and Drug Abuse Patient Records regulations: The Federal rules restrict any use of the information to criminally investigate or prosecute any alcohol or drug abuse patient.[facility]In the event this information is protected by the Federal Confidentiality of Alcohol and Drug Abuse Patient Records regulations: The Federal rules restrict any use of the information to criminally investigate or prosecute any alcohol or drug abuse patient.[facility]In the event this information is protected by the Federal Confidentiality of Alcohol and Drug Abuse Patient Records regulations: The Federal rules restrict any use of the information to criminally investigate or prosecute any alcohol or drug abuse patient.[facility]In the event this information is protected by the Federal Confidentiality of Alcohol and Drug Abuse Patient Records regulations: The Federal rules restrict any use of the information to criminally investigate or prosecute any alcohol or drug abuse patient.[facility] HospitalIn the event this information is protected by the Federal Confidentiality of Alcohol and Drug Abuse Patient Records regulations: The Federal rules restrict any use of the information to criminally investigate or prosecute any alcohol or drug abuse patient.[facility] HospitalIn the event this information is protected by the Federal Confidentiality of Alcohol and Drug Abuse Patient Records regulations: The Federal rules restrict any use of the information to criminally investigate or prosecute any alcohol or drug abuse patient.[facility]In the event this information is protected by the Federal Confidentiality of Alcohol and Drug Abuse Patient Records regulations: The Federal rules restrict any use of the information to criminally investigate or prosecute any alcohol or drug abuse patient.[facility]In the event this information is protected by the Federal Confidentiality of Alcohol and Drug Abuse Patient Records regulations: The Federal rules restrict any use of the information to criminally investigate or prosecute any alcohol or drug abuse patient.[facility] HospitalIn the event this information is protected by the Federal Confidentiality of Alcohol and Drug Abuse Patient Records regulations: The Federal rules restrict any use of the information to criminally investigate or prosecute any alcohol or drug abuse patient.[facility] HospitalIn the event this information is protected by the Federal Confidentiality of Alcohol and Drug Abuse Patient Records regulations: The Federal rules restrict any use of the information to criminally investigate or prosecute any alcohol or drug abuse patient.[facility] HospitalIn the event this information is protected by the Federal Confidentiality of Alcohol and Drug Abuse Patient Records regulations: The Federal rules restrict any use of the information to criminally investigate or prosecute any alcohol or drug abuse patient.[facility] HospitalIn the event this information is protected by the Federal Confidentiality of Alcohol and Drug Abuse Patient Records regulations: The Federal rules restrict any use of the information to criminally investigate or prosecute any alcohol or drug abuse patient.[facility] HospitalIn the event this information is protected by the Federal Confidentiality of Alcohol and Drug Abuse Patient Records regulations: The Federal rules restrict any use of the information to criminally investigate or prosecute any alcohol or drug abuse patient.[facility] HospitalIn the event this information is protected by the Federal Confidentiality of Alcohol and Drug Abuse Patient Records regulations: The Federal rules restrict any use of the information to criminally investigate or prosecute any alcohol or drug abuse patient.[facility] HospitalIn the event this information is protected by the Federal Confidentiality of Alcohol and Drug Abuse Patient Records regulations: The Federal rules restrict any use of the information to criminally investigate or prosecute any alcohol or drug abuse patient.[facility] HospitalIn the event this information is protected by the Federal Confidentiality of Alcohol and Drug Abuse Patient Records regulations: The Federal rules restrict any use of the information to criminally investigate or prosecute any alcohol or drug abuse patient.[facility] HospitalIn the event this information is protected by the Federal Confidentiality of Alcohol and Drug Abuse Patient Records regulations: The Federal rules restrict any use of the information to criminally investigate or prosecute any alcohol or drug abuse patient.[facility] HospitalIn the event this information is protected by the Federal Confidentiality of Alcohol and Drug Abuse Patient Records regulations: The Federal rules restrict any use of the information to criminally investigate or prosecute any alcohol or drug abuse patient.[facility] HospitalIn the event this information is protected by the Federal Confidentiality of Alcohol and Drug Abuse Patient Records regulations: The Federal rules restrict any use of the information to criminally investigate or prosecute any alcohol or drug abuse patient.[facility] HospitalIn the event this information is protected by the Federal Confidentiality of Alcohol and Drug Abuse Patient Records regulations: The Federal rules restrict any use of the information to criminally investigate or prosecute any alcohol or drug abuse patient.[facility] HospitalIn the event this information is protected by the Federal Confidentiality of Alcohol and Drug Abuse Patient Records regulations: The Federal rules restrict any use of the information to criminally investigate or prosecute any alcohol or drug abuse patient.[facility] HospitalIn the event this information is protected by the Federal Confidentiality of Alcohol and Drug Abuse Patient Records regulations: The Federal rules restrict any use of the information to criminally investigate or prosecute any alcohol or drug abuse patient.[facility] HospitalIn the event this information is protected by the Federal Confidentiality of Alcohol and Drug Abuse Patient Records regulations: The Federal rules restrict any use of the information to criminally investigate or prosecute any alcohol or drug abuse patient.[facility] HospitalIn the event this information is protected by the Federal Confidentiality of Alcohol and Drug Abuse Patient Records regulations: The Federal rules restrict any use of the information to criminally investigate or prosecute any alcohol or drug abuse patient.[facility]In the event this information is protected by the Federal Confidentiality of Alcohol and Drug Abuse Patient Records regulations: The Federal rules restrict any use of the information to criminally investigate or prosecute any alcohol or drug abuse patient.[facility] HospitalIn the event this information is protected by the Federal Confidentiality of Alcohol and Drug Abuse Patient Records regulations: The Federal rules restrict any use of the information to criminally investigate or prosecute any alcohol or drug abuse patient.[facility] HospitalIn the event this information is protected by the Federal Confidentiality of Alcohol and Drug Abuse Patient Records regulations: The Federal rules restrict any use of the information to criminally investigate or prosecute any alcohol or drug abuse patient.[facility] HospitalIn the event this information is protected by the Federal Confidentiality of Alcohol and Drug Abuse Patient Records regulations: The Federal rules restrict any use of the information to criminally investigate or prosecute any alcohol or drug abuse patient.[facility] HospitalIn the event this information is protected by the Federal Confidentiality of Alcohol and Drug Abuse Patient Records regulations: The Federal rules restrict any use of the information to criminally investigate or prosecute any alcohol or drug abuse patient.[facility] HospitalIn the event this information is protected by the Federal Confidentiality of Alcohol and Drug Abuse Patient Records regulations: The Federal rules restrict any use of the information to criminally investigate or prosecute any alcohol or drug abuse patient.[facility]In the event this information is protected by the Federal Confidentiality of Alcohol and Drug Abuse Patient Records regulations: The Federal rules restrict any use of the information to criminally investigate or prosecute any alcohol or drug abuse patient.[facility] HospitalIn the event this information is protected by the Federal Confidentiality of Alcohol and Drug Abuse Patient Records regulations: The Federal rules restrict any use of the information to criminally investigate or prosecute any alcohol or drug abuse patient.[facility] HospitalIn the event this information is protected by the Federal Confidentiality of Alcohol and Drug Abuse Patient Records regulations: The Federal rules restrict any use of the information to criminally investigate or prosecute any alcohol or drug abuse patient.[facility] HospitalIn the event this information is protected by the Federal Confidentiality of Alcohol and Drug Abuse Patient Records regulations: The Federal rules restrict any use of the information to criminally investigate or prosecute any alcohol or drug abuse patient.[facility] HospitalIn the event this information is protected by the Federal Confidentiality of Alcohol and Drug Abuse Patient Records regulations: The Federal rules restrict any use of the information to criminally investigate or prosecute any alcohol or drug abuse patient.[facility] HospitalIn the event this information is protected by the Federal Confidentiality of Alcohol and Drug Abuse Patient Records regulations: The Federal rules restrict any use of the information to criminally investigate or prosecute any alcohol or drug abuse patient.[facility] HospitalIn the event this information is protected by the Federal Confidentiality of Alcohol and Drug Abuse Patient Records regulations: The Federal rules restrict any use of the information to criminally investigate or prosecute any alcohol or drug abuse patient.[facility] HospitalIn the event this information is protected by the Federal Confidentiality of Alcohol and Drug Abuse Patient Records regulations: The Federal rules restrict any use of the information to criminally investigate or prosecute any alcohol or drug abuse patient.[facility] HospitalIn the event this information is protected by the Federal Confidentiality of Alcohol and Drug Abuse Patient Records regulations: The Federal rules restrict any use of the information to criminally investigate or prosecute any alcohol or drug abuse patient.[facility] HospitalIn the event this information is protected by the Federal Confidentiality of Alcohol and Drug Abuse Patient Records regulations: The Federal rules restrict any use of the information to criminally investigate or prosecute any alcohol or drug abuse patient.[facility]In the event this information is protected by the Federal Confidentiality of Alcohol and Drug Abuse Patient Records regulations: The Federal rules restrict any use of the information to criminally investigate or prosecute any alcohol or drug abuse patient.[facility]In the event this information is protected by the Federal Confidentiality of Alcohol and Drug Abuse Patient Records regulations: The Federal rules restrict any use of the information to criminally investigate or prosecute any alcohol or drug abuse patient.[facility]In the event this information is protected by the Federal Confidentiality of Alcohol and Drug Abuse Patient Records regulations: The Federal rules restrict any use of the information to criminally investigate or prosecute any alcohol or drug abuse patient.[facility] HospitalIn the event this information is protected by the Federal Confidentiality of Alcohol and Drug Abuse Patient Records regulations: The Federal rules restrict any use of the information to criminally investigate or prosecute any alcohol or drug abuse patient.[facility]In the event this information is protected by the Federal Confidentiality of Alcohol and Drug Abuse Patient Records regulations: The Federal rules restrict any use of the information to criminally investigate or prosecute any alcohol or drug abuse patient.[facility]In the event this information is protected by the Federal Confidentiality of Alcohol and Drug Abuse Patient Records regulations: The Federal rules restrict any use of the information to criminally investigate or prosecute any alcohol or drug abuse patient.[facility]In the event this information is protected by the Federal Confidentiality of Alcohol and Drug Abuse Patient Records regulations: The Federal rules restrict any use of the information to criminally investigate or prosecute any alcohol or drug abuse patient.[facility]In the event this information is protected by the Federal Confidentiality of Alcohol and Drug Abuse Patient Records regulations: The Federal rules restrict any use of the information to criminally investigate or prosecute any alcohol or drug abuse patient.[facility]In the event this information is protected by the Federal Confidentiality of Alcohol and Drug Abuse Patient Records regulations: The Federal rules restrict any use of the information to criminally investigate or prosecute any alcohol or drug abuse patient.[facility]In the event this information is protected by the Federal Confidentiality of Alcohol and Drug Abuse Patient Records regulations: The Federal rules restrict any use of the information to criminally investigate or prosecute any alcohol or drug abuse patient.[facility]In the event this information is protected by the Federal Confidentiality of Alcohol and Drug Abuse Patient Records regulations: The Federal rules restrict any use of the information to criminally investigate or prosecute any alcohol or drug abuse patient.[facility]In the event this information is protected by the Federal Confidentiality of Alcohol and Drug Abuse Patient Records regulations: The Federal rules restrict any use of the information to criminally investigate or prosecute any alcohol or drug abuse patient.[facility]In the event this information is protected by the Federal Confidentiality of Alcohol and Drug Abuse Patient Records regulations: The Federal rules restrict any use of the information to criminally investigate or prosecute any alcohol or drug abuse patient.[facility]In the event this information is protected by the Federal Confidentiality of Alcohol and Drug Abuse Patient Records regulations: The Federal rules restrict any use of the information to criminally investigate or prosecute any alcohol or drug abuse patient.[facility]In the event this information is protected by the Federal Confidentiality of Alcohol and Drug Abuse Patient Records regulations: The Federal rules restrict any use of the information to criminally investigate or prosecute any alcohol or drug abuse patient.[facility]In the event this information is protected by the Federal Confidentiality of Alcohol and Drug Abuse Patient Records regulations: The Federal rules restrict any use of the information to criminally investigate or prosecute any alcohol or drug abuse patient.[facility]In the event this information is protected by the Federal Confidentiality of Alcohol and Drug Abuse Patient Records regulations: The Federal rules restrict any use of the information to criminally investigate or prosecute any alcohol or drug abuse patient.[facility]In the event this information is protected by the Federal Confidentiality of Alcohol and Drug Abuse Patient Records regulations: The Federal rules restrict any use of the information to criminally investigate or prosecute any alcohol or drug abuse patient.[facility]In the event this information is protected by the Federal Confidentiality of Alcohol and Drug Abuse Patient Records regulations: The Federal rules restrict any use of the information to criminally investigate or prosecute any alcohol or drug abuse patient.[facility]In the event this information is protected by the Federal Confidentiality of Alcohol and Drug Abuse Patient Records regulations: The Federal rules restrict any use of the information to criminally investigate or prosecute any alcohol or drug abuse patient.[facility]In the event this information is protected by the Federal Confidentiality of Alcohol and Drug Abuse Patient Records regulations: The Federal rules restrict any use of the information to criminally investigate or prosecute any alcohol or drug abuse patient.[facility]In the event this information is protected by the Federal Confidentiality of Alcohol and Drug Abuse Patient Records regulations: The Federal rules restrict any use of the information to criminally investigate or prosecute any alcohol or drug abuse patient.[facility]In the event this information is protected by the Federal Confidentiality of Alcohol and Drug Abuse Patient Records regulations: The Federal rules restrict any use of the information to criminally investigate or prosecute any alcohol or drug abuse patient.[facility]In the event this information is protected by the Federal Confidentiality of Alcohol and Drug Abuse Patient Records regulations: The Federal rules restrict any use of the information to criminally investigate or prosecute any alcohol or drug abuse patient.[facility]In the event this information is protected by the Federal Confidentiality of Alcohol and Drug Abuse Patient Records regulations: The Federal rules restrict any use of the information to criminally investigate or prosecute any alcohol or drug abuse patient.[facility]In the event this information is protected by the Federal Confidentiality of Alcohol and Drug Abuse Patient Records regulations: The Federal rules restrict any use of the information to criminally investigate or prosecute any alcohol or drug abuse patient.[facility]In the event this information is protected by the Federal Confidentiality of Alcohol and Drug Abuse Patient Records regulations: The Federal rules restrict any use of the information to criminally investigate or prosecute any alcohol or drug abuse patient.[facility]In the event this information is protected by the Federal Confidentiality of Alcohol and Drug Abuse Patient Records regulations: The Federal rules restrict any use of the information to criminally investigate or prosecute any alcohol or drug abuse patient.[facility]In the event this information is protected by the Federal Confidentiality of Alcohol and Drug Abuse Patient Records regulations: The Federal rules restrict any use of the information to criminally investigate or prosecute any alcohol or drug abuse patient.[facility]In the event this information is protected by the Federal Confidentiality of Alcohol and Drug Abuse Patient Records regulations: The Federal rules restrict any use of the information to criminally investigate or prosecute any alcohol or drug abuse patient.[facility]In the event this information is protected by the Federal Confidentiality of Alcohol and Drug Abuse Patient Records regulations: The Federal rules restrict any use of the information to criminally investigate or prosecute any alcohol or drug abuse patient.[facility]In the event this information is protected by the Federal Confidentiality of Alcohol and Drug Abuse Patient Records regulations: The Federal rules restrict any use of the information to criminally investigate or prosecute any alcohol or drug abuse patient.[facility]In the event this information is protected by the Federal Confidentiality of Alcohol and Drug Abuse Patient Records regulations: The Federal rules restrict any use of the information to criminally investigate or prosecute any alcohol or drug abuse patient.[facility]In the event this information is protected by the Federal Confidentiality of Alcohol and Drug Abuse Patient Records regulations: The Federal rules restrict any use of the information to criminally investigate or prosecute any alcohol or drug abuse patient.[facility]In the event this information is protected by the Federal Confidentiality of Alcohol and Drug Abuse Patient Records regulations: The Federal rules restrict any use of the information to criminally investigate or prosecute any alcohol or drug abuse patient.[facility]In the event this information is protected by the Federal Confidentiality of Alcohol and Drug Abuse Patient Records regulations: The Federal rules restrict any use of the information to criminally investigate or prosecute any alcohol or drug abuse patient.[facility]In the event this information is protected by the Federal Confidentiality of Alcohol and Drug Abuse Patient Records regulations: The Federal rules restrict any use of the information to criminally investigate or prosecute any alcohol or drug abuse patient.[facility]In the event this information is protected by the Federal Confidentiality of Alcohol and Drug Abuse Patient Records regulations: The Federal rules restrict any use of the information to criminally investigate or prosecute any alcohol or drug abuse patient.[facility]In the event this information is protected by the Federal Confidentiality of Alcohol and Drug Abuse Patient Records regulations: The Federal rules restrict any use of the information to criminally investigate or prosecute any alcohol or drug abuse patient.[facility]In the event this information is protected by the Federal Confidentiality of Alcohol and Drug Abuse Patient Records regulations: The Federal rules restrict any use of the information to criminally investigate or prosecute any alcohol or drug abuse patient.[facility]In the event this information is protected by the Federal Confidentiality of Alcohol and Drug Abuse Patient Records regulations: The Federal rules restrict any use of the information to criminally investigate or prosecute any alcohol or drug abuse patient.[facility]In the event this information is protected by the Federal Confidentiality of Alcohol and Drug Abuse Patient Records regulations: The Federal rules restrict any use of the information to criminally investigate or prosecute any alcohol or drug abuse patient.[facility]In the event this information is protected by the Federal Confidentiality of Alcohol and Drug Abuse Patient Records regulations: The Federal rules restrict any use of the information to criminally investigate or prosecute any alcohol or drug abuse patient.[facility]In the event this information is protected by the Federal Confidentiality of Alcohol and Drug Abuse Patient Records regulations: The Federal rules restrict any use of the information to criminally investigate or prosecute any alcohol or drug abuse patient.[facility]In the event this information is protected by the Federal Confidentiality of Alcohol and Drug Abuse Patient Records regulations: The Federal rules restrict any use of the information to criminally investigate or prosecute any alcohol or drug abuse patient.[facility]In the event this information is protected by the Federal Confidentiality of Alcohol and Drug Abuse Patient Records regulations: The Federal rules restrict any use of the information to criminally investigate or prosecute any alcohol or drug abuse patient.[facility]In the event this information is protected by the Federal Confidentiality of Alcohol and Drug Abuse Patient Records regulations: The Federal rules restrict any use of the information to criminally investigate or prosecute any alcohol or drug abuse patient.[facility]In the event this information is protected by the Federal Confidentiality of Alcohol and Drug Abuse Patient Records regulations: The Federal rules restrict any use of the information to criminally investigate or prosecute any alcohol or drug abuse patient.[facility]In the event this information is protected by the Federal Confidentiality of Alcohol and Drug Abuse Patient Records regulations: The Federal rules restrict any use of the information to criminally investigate or prosecute any alcohol or drug abuse patient.[facility]In the event this information is protected by the Federal Confidentiality of Alcohol and Drug Abuse Patient Records regulations: The Federal rules restrict any use of the information to criminally investigate or prosecute any alcohol or drug abuse patient.[facility]In the event this information is protected by the Federal Confidentiality of Alcohol and Drug Abuse Patient Records regulations: The Federal rules restrict any use of the information to criminally investigate or prosecute any alcohol or drug abuse patient.[facility]In the event this information is protected by the Federal Confidentiality of Alcohol and Drug Abuse Patient Records regulations: The Federal rules restrict any use of the information to criminally investigate or prosecute any alcohol or drug abuse patient.[facility]In the event this information is protected by the Federal Confidentiality of Alcohol and Drug Abuse Patient Records regulations: The Federal rules restrict any use of the information to criminally investigate or prosecute any alcohol or drug abuse patient.[facility]In the event this information is protected by the Federal Confidentiality of Alcohol and Drug Abuse Patient Records regulations: The Federal rules restrict any use of the information to criminally investigate or prosecute any alcohol or drug abuse patient.[facility]In the event this information is protected by the Federal Confidentiality of Alcohol and Drug Abuse Patient Records regulations: The Federal rules restrict any use of the information to criminally investigate or prosecute any alcohol or drug abuse patient.[facility]In the event this information is protected by the Federal Confidentiality of Alcohol and Drug Abuse Patient Records regulations: The Federal rules restrict any use of the information to criminally investigate or prosecute any alcohol or drug abuse patient.[facility]In the event this information is protected by the Federal Confidentiality of Alcohol and Drug Abuse Patient Records regulations: The Federal rules restrict any use of the information to criminally investigate or prosecute any alcohol or drug abuse patient.[facility]In the event this information is protected by the Federal Confidentiality of Alcohol and Drug Abuse Patient Records regulations: The Federal rules restrict any use of the information to criminally investigate or prosecute any alcohol or drug abuse patient.[facility]In the event this information is protected by the Federal Confidentiality of Alcohol and Drug Abuse Patient Records regulations: The Federal rules restrict any use of the information to criminally investigate or prosecute any alcohol or drug abuse patient.[facility]In the event this information is protected by the Federal Confidentiality of Alcohol and Drug Abuse Patient Records regulations: The Federal rules restrict any use of the information to criminally investigate or prosecute any alcohol or drug abuse patient.[facility]In the event this information is protected by the Federal Confidentiality of Alcohol and Drug Abuse Patient Records regulations: The Federal rules restrict any use of the information to criminally investigate or prosecute any alcohol or drug abuse patient.[facility]In the event this information is protected by the Federal Confidentiality of Alcohol and Drug Abuse Patient Records regulations: The Federal rules restrict any use of the information to criminally investigate or prosecute any alcohol or drug abuse patient.[facility]In the event this information is protected by the Federal Confidentiality of Alcohol and Drug Abuse Patient Records regulations: The Federal rules restrict any use of the information to criminally investigate or prosecute any alcohol or drug abuse patient.[facility]In the event this information is protected by the Federal Confidentiality of Alcohol and Drug Abuse Patient Records regulations: The Federal rules restrict any use of the information to criminally investigate or prosecute any alcohol or drug abuse patient.[facility]In the event this information is protected by the Federal Confidentiality of Alcohol and Drug Abuse Patient Records regulations: The Federal rules restrict any use of the information to criminally investigate or prosecute any alcohol or drug abuse patient.[facility]In the event this information is protected by the Federal Confidentiality of Alcohol and Drug Abuse Patient Records regulations: The Federal rules restrict any use of the information to criminally investigate or prosecute any alcohol or drug abuse patient.[facility]In the event this information is protected by the Federal Confidentiality of Alcohol and Drug Abuse Patient Records regulations: The Federal rules restrict any use of the information to criminally investigate or prosecute any alcohol or drug abuse patient.[facility]In the event this information is protected by the Federal Confidentiality of Alcohol and Drug Abuse Patient Records regulations: The Federal rules restrict any use of the information to criminally investigate or prosecute any alcohol or drug abuse patient.[facility]In the event this information is protected by the Federal Confidentiality of Alcohol and Drug Abuse Patient Records regulations: The Federal rules restrict any use of the information to criminally investigate or prosecute any alcohol or drug abuse patient.[facility]In the event this information is protected by the Federal Confidentiality of Alcohol and Drug Abuse Patient Records regulations: The Federal rules restrict any use of the information to criminally investigate or prosecute any alcohol or drug abuse patient.[facility]In the event this information is protected by the Federal Confidentiality of Alcohol and Drug Abuse Patient Records regulations: The Federal rules restrict any use of the information to criminally investigate or prosecute any alcohol or drug abuse patient.[facility]In the event this information is protected by the Federal Confidentiality of Alcohol and Drug Abuse Patient Records regulations: The Federal rules restrict any use of the information to criminally investigate or prosecute any alcohol or drug abuse patient.[facility]In the event this information is protected by the Federal Confidentiality of Alcohol and Drug Abuse Patient Records regulations: The Federal rules restrict any use of the information to criminally investigate or prosecute any alcohol or drug abuse patient.[facility]In the event this information is protected by the Federal Confidentiality of Alcohol and Drug Abuse Patient Records regulations: The Federal rules restrict any use of the information to criminally investigate or prosecute any alcohol or drug abuse patient.[facility]In the event this information is protected by the Federal Confidentiality of Alcohol and Drug Abuse Patient Records regulations: The Federal rules restrict any use of the information to criminally investigate or prosecute any alcohol or drug abuse patient.[facility]In the event this information is protected by the Federal Confidentiality of Alcohol and Drug Abuse Patient Records regulations: The Federal rules restrict any use of the information to criminally investigate or prosecute any alcohol or drug abuse patient.[facility]In the event this information is protected by the Federal Confidentiality of Alcohol and Drug Abuse Patient Records regulations: The Federal rules restrict any use of the information to criminally investigate or prosecute any alcohol or drug abuse patient.[facility]In the event this information is protected by the Federal Confidentiality of Alcohol and Drug Abuse Patient Records regulations: The Federal rules restrict any use of the information to criminally investigate or prosecute any alcohol or drug abuse patient.[facility]In the event this information is protected by the Federal Confidentiality of Alcohol and Drug Abuse Patient Records regulations: The Federal rules restrict any use of the information to criminally investigate or prosecute any alcohol or drug abuse patient.[facility]In the event this information is protected by the Federal Confidentiality of Alcohol and Drug Abuse Patient Records regulations: The Federal rules restrict any use of the information to criminally investigate or prosecute any alcohol or drug abuse patient.[facility]In the event this information is protected by the Federal Confidentiality of Alcohol and Drug Abuse Patient Records regulations: The Federal rules restrict any use of the information to criminally investigate or prosecute any alcohol or drug abuse patient.[facility]In the event this information is protected by the Federal Confidentiality of Alcohol and Drug Abuse Patient Records regulations: The Federal rules restrict any use of the information to criminally investigate or prosecute any alcohol or drug abuse patient.[facility]In the event this information is protected by the Federal Confidentiality of Alcohol and Drug Abuse Patient Records regulations: The Federal rules restrict any use of the information to criminally investigate or prosecute any alcohol or drug abuse patient.[facility]In the event this information is protected by the Federal Confidentiality of Alcohol and Drug Abuse Patient Records regulations: The Federal rules restrict any use of the information to criminally investigate or prosecute any alcohol or drug abuse patient.[facility]In the event this information is protected by the Federal Confidentiality of Alcohol and Drug Abuse Patient Records regulations: The Federal rules restrict any use of the information to criminally investigate or prosecute any alcohol or drug abuse patient.[facility]In the event this information is protected by the Federal Confidentiality of Alcohol and Drug Abuse Patient Records regulations: The Federal rules restrict any use of the information to criminally investigate or prosecute any alcohol or drug abuse patient.[facility]In the event this information is protected by the Federal Confidentiality of Alcohol and Drug Abuse Patient Records regulations: The Federal rules restrict any use of the information to criminally investigate or prosecute any alcohol or drug abuse patient.[facility]In the event this information is protected by the Federal Confidentiality of Alcohol and Drug Abuse Patient Records regulations: The Federal rules restrict any use of the information to criminally investigate or prosecute any alcohol or drug abuse patient.[facility]In the event this information is protected by the Federal Confidentiality of Alcohol and Drug Abuse Patient Records regulations: The Federal rules restrict any use of the information to criminally investigate or prosecute any alcohol or drug abuse patient.[facility]In the event this information is protected by the Federal Confidentiality of Alcohol and Drug Abuse Patient Records regulations: The Federal rules restrict any use of the information to criminally investigate or prosecute any alcohol or drug abuse patient.[facility]In the event this information is protected by the Federal Confidentiality of Alcohol and Drug Abuse Patient Records regulations: The Federal rules restrict any use of the information to criminally investigate or prosecute any alcohol or drug abuse patient.[facility]In the event this information is protected by the Federal Confidentiality of Alcohol and Drug Abuse Patient Records regulations: The Federal rules restrict any use of the information to criminally investigate or prosecute any alcohol or drug abuse patient.[facility]In the event this information is protected by the Federal Confidentiality of Alcohol and Drug Abuse Patient Records regulations: The Federal rules restrict any use of the information to criminally investigate or prosecute any alcohol or drug abuse patient.[facility]In the event this information is protected by the Federal Confidentiality of Alcohol and Drug Abuse Patient Records regulations: The Federal rules restrict any use of the information to criminally investigate or prosecute any alcohol or drug abuse patient.[facility]In the event this information is protected by the Federal Confidentiality of Alcohol and Drug Abuse Patient Records regulations: The Federal rules restrict any use of the information to criminally investigate or prosecute any alcohol or drug abuse patient.[facility]In the event this information is protected by the Federal Confidentiality of Alcohol and Drug Abuse Patient Records regulations: The Federal rules restrict any use of the information to criminally investigate or prosecute any alcohol or drug abuse patient.[facility]In the event this information is protected by the Federal Confidentiality of Alcohol and Drug Abuse Patient Records regulations: The Federal rules restrict any use of the information to criminally investigate or prosecute any alcohol or drug abuse patient.[facility]In the event this information is protected by the Federal Confidentiality of Alcohol and Drug Abuse Patient Records regulations: The Federal rules restrict any use of the information to criminally investigate or prosecute any alcohol or drug abuse patient.[facility]In the event this information is protected by the Federal Confidentiality of Alcohol and Drug Abuse Patient Records regulations: The Federal rules restrict any use of the information to criminally investigate or prosecute any alcohol or drug abuse patient.[facility]In the event this information is protected by the Federal Confidentiality of Alcohol and Drug Abuse Patient Records regulations: The Federal rules restrict any use of the information to criminally investigate or prosecute any alcohol or drug abuse patient.[facility]In the event this information is protected by the Federal Confidentiality of Alcohol and Drug Abuse Patient Records regulations: The Federal rules restrict any use of the information to criminally investigate or prosecute any alcohol or drug abuse patient.[facility]In the event this information is protected by the Federal Confidentiality of Alcohol and Drug Abuse Patient Records regulations: The Federal rules restrict any use of the information to criminally investigate or prosecute any alcohol or drug abuse patient.[facility]In the event this information is protected by the Federal Confidentiality of Alcohol and Drug Abuse Patient Records regulations: The Federal rules restrict any use of the information to criminally investigate or prosecute any alcohol or drug abuse patient.[facility]In the event this information is protected by the Federal Confidentiality of Alcohol and Drug Abuse Patient Records regulations: The Federal rules restrict any use of the information to criminally investigate or prosecute any alcohol or drug abuse patient.[facility] HospitalIn the event this information is protected by the Federal Confidentiality of Alcohol and Drug Abuse Patient Records regulations: The Federal rules restrict any use of the information to criminally investigate or prosecute any alcohol or drug abuse patient.[facility] HospitalIn the event this information is protected by the Federal Confidentiality of Alcohol and Drug Abuse Patient Records regulations: The Federal rules restrict any use of the information to criminally investigate or prosecute any alcohol or drug abuse patient.[facility] HospitalIn the event this information is protected by the Federal Confidentiality of Alcohol and Drug Abuse Patient Records regulations: The Federal rules restrict any use of the information to criminally investigate or prosecute any alcohol or drug abuse patient.[facility] HospitalIn the event this information is protected by the Federal Confidentiality of Alcohol and Drug Abuse Patient Records regulations: The Federal rules restrict any use of the information to criminally investigate or prosecute any alcohol or drug abuse patient.[facility] HospitalIn the event this information is protected by the Federal Confidentiality of Alcohol and Drug Abuse Patient Records regulations: The Federal rules restrict any use of the information to criminally investigate or prosecute any alcohol or drug abuse patient.[facility] HospitalIn the event this information is protected by the Federal Confidentiality of Alcohol and Drug Abuse Patient Records regulations: The Federal rules restrict any use of the information to criminally investigate or prosecute any alcohol or drug abuse patient.[facility] HospitalIn the event this information is protected by the Federal Confidentiality of Alcohol and Drug Abuse Patient Records regulations: The Federal rules restrict any use of the information to criminally investigate or prosecute any alcohol or drug abuse patient.[facility] HospitalIn the event this information is protected by the Federal Confidentiality of Alcohol and Drug Abuse Patient Records regulations: The Federal rules restrict any use of the information to criminally investigate or prosecute any alcohol or drug abuse patient.[facility] HospitalIn the event this information is protected by the Federal Confidentiality of Alcohol and Drug Abuse Patient Records regulations: The Federal rules restrict any use of the information to criminally investigate or prosecute any alcohol or drug abuse patient.[facility] HospitalIn the event this information is protected by the Federal Confidentiality of Alcohol and Drug Abuse Patient Records regulations: The Federal rules restrict any use of the information to criminally investigate or prosecute any alcohol or drug abuse patient.[facility] HospitalIn the event this information is protected by the Federal Confidentiality of Alcohol and Drug Abuse Patient Records regulations: The Federal rules restrict any use of the information to criminally investigate or prosecute any alcohol or drug abuse patient.[facility] HospitalIn the event this information is protected by the Federal Confidentiality of Alcohol and Drug Abuse Patient Records regulations: The Federal rules restrict any use of the information to criminally investigate or prosecute any alcohol or drug abuse patient.[facility] HospitalIn the event this information is protected by the Federal Confidentiality of Alcohol and Drug Abuse Patient Records regulations: The Federal rules restrict any use of the information to criminally investigate or prosecute any alcohol or drug abuse patient.[facility] HospitalIn the event this information is protected by the Federal Confidentiality of Alcohol and Drug Abuse Patient Records regulations: The Federal rules restrict any use of the information to criminally investigate or prosecute any alcohol or drug abuse patient.[facility] HospitalIn the event this information is protected by the Federal Confidentiality of Alcohol and Drug Abuse Patient Records regulations: The Federal rules restrict any use of the information to criminally investigate or prosecute any alcohol or drug abuse patient.[facility] HospitalIn the event this information is protected by the Federal Confidentiality of Alcohol and Drug Abuse Patient Records regulations: The Federal rules restrict any use of the information to criminally investigate or prosecute any alcohol or drug abuse patient.[facility] HospitalIn the event this information is protected by the Federal Confidentiality of Alcohol and Drug Abuse Patient Records regulations: The Federal rules restrict any use of the information to criminally investigate or prosecute any alcohol or drug abuse patient.[facility] HospitalIn the event this information is protected by the Federal Confidentiality of Alcohol and Drug Abuse Patient Records regulations: The Federal rules restrict any use of the information to criminally investigate or prosecute any alcohol or drug abuse patient.[facility] HospitalIn the event this information is protected by the Federal Confidentiality of Alcohol and Drug Abuse Patient Records regulations: The Federal rules restrict any use of the information to criminally investigate or prosecute any alcohol or drug abuse patient.[facility] HospitalIn the event this information is protected by the Federal Confidentiality of Alcohol and Drug Abuse Patient Records regulations: The Federal rules restrict any use of the information to criminally investigate or prosecute any alcohol or drug abuse patient.[facility] HospitalIn the event this information is protected by the Federal Confidentiality of Alcohol and Drug Abuse Patient Records regulations: The Federal rules restrict any use of the information to criminally investigate or prosecute any alcohol or drug abuse patient.[facility] HospitalIn the event this information is protected by the Federal Confidentiality of Alcohol and Drug Abuse Patient Records regulations: The Federal rules restrict any use of the information to criminally investigate or prosecute any alcohol or drug abuse patient.[facility] Reason for Visit (unrecogniz ed section and content) Reason Comments Fever Reason Comments Patient Update Reason Comments PT Eval Specialty Diagnoses / Procedures Referred By Contac t Referred To Contact [facility] Diagnoses Right hip pain Procedures CONSULT TO PHYSICAL THERAPY PHYSICAL THERAPY EVALUATION HIGH COMPLEX 45 MINS Lizeth Saini PA-C [address] [place] [address] [facility] [place] [address] [place] [address] Referral ID Status Reason Start Date Expiration Date V isits Requested Visits Authorized [id number] Closed Auto-Generate d Referral 01/30/2022 07/01/2022 1 1 Reason Onset Date Comments Refill Request 02/03/2022 Reason Onset Date Comments Refill Request 02/06/2022 Reason Comments Results Reason Comments Cardiology Follow Up no issues Reason Comments Physical Therapy Specialty Diagnoses / Procedures Referred By Contac t Referred To Contact Orthopedics Diagnoses Right groin pain Right hip pain Procedures CONSULT TO ORTHOPAEDICS OFFICE/OUTPATIENT [facility] MDM 60-74 MINUTES Lizeth Saini PA-C [address] [place] [address] Referral ID Status Reason Start Date Expiration Date V isits Requested Visits Authorized [id number] Closed PCP Requested Referral 01/30/2022 01/30/2023 1 1 Reason Comments Abdominal Pain LUQ, 3-4 week, inter mittent Reason Comments PT Progress Note Specialty Diagnoses / Procedures Referred By Contac t Referred To Contact Orthopedics Diagnoses Right groin pain Right hip pain Procedures CONSULT TO ORTHOPAEDICS OFFICE/OUTPATIENT [facility] 60-74 MINUTES Lizeth Saini PA-C [address] [place] [address] Reason Onset Date Comments Refill Request 03/20/2022 Reason Onset Date Comments Community Monitoring Outreach 03/21/2022 1s t insight enrollment attempt Reason Onset Date Comments Community Monitoring Outreach 03/24/2022 2n d insight enrollment attempt Reason Onset Date Comments Community Monitoring Outreach 04/21/2022 [facility] outreach Reason Onset Date Comments Community Monitoring Outreach 04/22/2022 [facility] outreach Reason Comments Follow Up 3 month- med refills Reason Onset Date Comments Community Monitoring Outreach 05/20/2022 [facility] outreach Reason Onset Date Comments Refill Request 05/27/2022 Reason Comments Diarrhea for about 6 weeks of f and on. Reason Onset Date Comments Community Monitoring Outreach 06/17/2022 [facility] outreach Reason Onset Date Comments Community Monitoring Outreach 06/18/2022 [facility] outreach Reason Onset Date Comments [facility] 07/16/2022 Telephonic outre ach\ Reason Comments Follow Up 3 month Shortness of Breath Pain Right hip, calf Reason Onset Date Comments CD[facility] 08/13/2022 Telephonic outre ach Reason Onset Date Comments Refill Request 08/13/2022 Reason Comments New Pain Specialty Diagnoses / Procedures Referred By Contac t Referred To Contact Orthopedics Diagnoses Right hip pain Procedures CONSULT TO ORTHOPAEDICS OFFICE/OUTPATIENT [facility] 60-74 MINUTES Lizeth Saini PA-C [address] [place] [address] Referral ID Status Reason Start Date Expiration Date V isits Requested Visits Authorized [id number] Closed PCP Requested Referral 08/04/2022 08/04/2023 1 1 Reason Onset Date Comments Refill Request 09/01/2022 Reason Onset Date Comments CDM 09/03/2022 Telephonic outre ach Reason Onset Date Comments CDM 09/24/2022 Telephonic outre ach Reason Onset Date Comments [facility] 10/22/2022 Telephonic outre ach Reason Onset Date Comments [facility] 11/05/2022 Telephonic outre ach Reason Onset Date Comments [facility] 11/07/2022 Telephonic outre ach Reason Comments Donor list Reason Onset Date Comments [facility] 11/21/2022 Telephonic outre ach Specialty Diagnoses / Procedures Referred By Papito sweeney Referred To Contact Diagnoses Primary osteoarthritis of right hip Procedures ARTHROCENTESIS ASPIR&/INJ MAJOR JT/BURSA W/O US INJECT HIP RIGHT [facility] [address] [place] [address] Referral ID Status Reason Start Date Expiration Date Visits Re quested Visits Authorized [id number] 1 1 Reason Onset Date Comments [facility] 12/22/2022 Telephonic outre ach Reason Onset Date Comments [facility] 12/23/2022 Telephonic outre ach Reason Comments Follow Up 3 month f/u Reason Comments Refill Request Reason Onset Date Comments Community monitoring outreach 02/04/2023 [facility] telephonic outreach Reason Onset Date Comments Refill Request 02/23/2023 Reason Comments Cardiology Follow Up [facility] 02/12/2022 CAD, HLD, HTN, Coronary angioplasty status, TIA , Cabg x3 1986, CKD, PSVT, PCI [id number] 08/06/2021 ECG [facility] 10/17/2019 ROOM 10 legs cramp x 1 year Reason Onset Date Comments Refill Request 03/04/2023 Reason Onset Date Comments Refill Request 03/09/2023 Reason Comments Orders RT Hip Injection Reason Onset Date Comments [facility] 04/10/2023 [facility] telepho mary alice Reason Onset Date Comments [facility] 05/08/2023 [facility] telepho mary alice Reason Comments Diarrhea 4 week Shortness of Breath When active Reason Onset Date Comments Opened In Error 06/05/2023 Reason Onset Date Comments Refill Request 06/17/2023 Reason Onset Date Comments [facility] 07/31/2023 [facility] telepho mary alice Reason Onset Date Comments [facility] 09/25/2023 [facility] telepho mary alice Reason Comments Opened In Error Reason Comments Follow Up [facility] 09/26/2023 Chest p ain AFib Reason Comments Results Labs Reason Comments Radiology US Specialty Diagnoses / Procedures Referred By Papito sweeney Referred To Contact US IMAGING Diagnoses Increased urinary frequency Procedures US KIDNEY/BLADDER US RETROPERITONEAL REAL TIME W/IMAGE COMPLETE Breanna Chawla, PROTOZOOLOGIST.ASSISTANT PORTFOLIO MANAGER [address] [place] [address] [place] [address] Referral ID Status Reason Start Date Expiration Date V isits Requested Visits Authorized [id number] Closed Auto-Generate d Referral 09/30/2023 10/29/2024 1 1 Reason Comments Consult Nocturia Reason Comments Results US Bladder/Kidney Reason Comments Patient Question Reason Comments New Patient Specialty Diagnoses / Procedures Referred By Contac t Referred To Contact Vascular Surgery Diagnoses Stenosis of left carotid artery Procedures CONSULT TO VASCULAR SURGERY OFFICE/OUTPATIENT NEW [facility] 60 MINUTES Todd Seth MD [address] [place] [address] Referral ID Status Reason Start Date Expiration Date V isits Requested Visits Authorized [id number] Closed PCP Requested Referral 09/22/2023 09/21/2024 1 1 Reason Onset Date Comments community monitoring 10/23/2023 [facility] telepho mary alice Reason Comments Transition Of Care Reason Comments Follow Up Room 4Concerned abou t BP'sHospital follow up Reason Onset Date Comments community monitoring 11/23/2023 CDM telepho mary alice Reason Comments Results Zio Reason Onset Date Comments Refill Request 12/04/2023 Reason Onset Date Comments community monitoring 12/21/2023 CDM telepho mary alice Reason Comments Follow Up 3 months Reason Onset Date Comments Refill Request 01/20/2024 Reason Onset Date Comments community monitoring 01/21/2024 CDM telepho mary alice Reason Comments Radiology US Specialty Diagnoses / Procedures Referred By Contac t Referred To Contact US IMAGING Diagnoses BPH with obstruction/lower urinary tract symptoms Procedures US PELVIS BLADDER US PELVIC NONOBSTETRIC IMAGE DCMTN LIMITED/F/U Lizeth Saini PA-C [address] [place] [address] [place] [address] Referral ID Status Reason Start Date Expiration Date V isits Requested Visits Authorized [id number] Closed Auto-Generate d Referral 01/07/2024 08/23/2024 1 1 Reason Onset Date Comments community monitoring 02/17/2024 CDM telepho mary alice Reason Comments Follow Up 3 week follow up Reason Comments Pain Specialty Diagnoses / Procedures Referred By Contac t Referred To Contact Orthopedics Diagnoses Arthritis of right hip Procedures CONSULT TO ORTHOPAEDICS OFFICE/OUTPATIENT [facility] 60 MINUTES Lizeth Saini PA-C [address] [place] [address] Referral ID Status Reason Start Date Expiration Date V isits Requested Visits Authorized [id number] Closed PCP Requested Referral 01/07/2024 01/06/2025 1 1 Reason Comments New Pain Reason Comments Follow Up Room 10AnnualDenies cardiac concernsEKG Today Reason Comments Depression Reason Onset Date Comments community monitoring 03/17/2024 CDM telepho mary alice Reason Comments Follow Up ER F/U Dog bite (his dog) Reason Comments bh consult Reason Onset Date Comments Refill Request 03/22/2024 Reason Comments Preparations For Surgery Plavix Clearanc e Reason Comments Pre-Op Teaching Reason Comments Consult Reason Comments Follow Up Reason Comments New Patient Reason Comments New Patient Evaluation Specialty Diagnoses / Procedures Referred By Contac t Referred To Contact Hematology Diagnoses Other hemoglobinopathies (HCC) Thrombocytopenia (HCC) Procedures CONSULT TO HEMATOLOGY OFFICE/OUTPATIENT [facility] 60 MINUTES Valery Quinteros, PROTOZOOLOGIST.ASSISTANT PORTFOLIO MANAGER [address] [place] [address] Referral ID Status Reason Start Date Expiration Date V isits Requested Visits Authorized [id number] Closed PCP Requested Referral 05/03/2024 05/03/2025 1 1 Reason Comments Established Patient Reason Comments Follow Up Reason Onset Date Comments community monitoring outreach 06/09/2024 CD outreach Reason Comments Patient Update Reason Onset Date Comments community monitoring 07/07/2024 CDM telepho mary alice Reason Comments Pain Pre-Op Visit Specialty Diagnoses / Procedures Referred By Contac t Referred To Contact Orthopedics Diagnoses Arthritis of right hip Procedures CONSULT TO ORTHOPAEDICS OFFICE/OUTPATIENT [facility] 60 MINUTES Alvin Saini PA-C [address] [place] [address] Reason Comments Medication Request Reason Comments Follow Up 2 month exam Fall Frequent falls Specialty Diagnoses / Procedures Referred By Contac t Referred To Contact CT IMAGING Diagnoses Primary osteoarthritis of right hip Procedures CT HIP WO IVCON RIGHT CT LOWER EXTREMITY W/O CONTRAST MATERIAL Asif Gonzales PA-C [address] [address] [place] [address] Referral ID Status Reason Start Date Expiration Date V isits Requested Visits Authorized [id number] Closed Auto-Generate d Referral 07/28/2024 09/26/2024 1 1 Reason Onset Date Comments Population Health Navigation Outreach 08/25/2024 [employer] dinorah Reason Comments Consult [facility] right hip 09/13/24 Reason Onset Date Comments Refill Request 09/05/2024 Reason Comments Patient Assistance Reason Onset Date Comments Refill Request 2024 Reason Comments Low platelets Reason Comments Dizziness Reason Comments Cough Reason Comments Home Care CONFIRMATION CALL Reason Comments Home Care HHc referral Reason Comments Hip Replacement ABMS Post Op ABMS Reason Comments Appointment Reason Comments Post Op ABMS Hip Replacement ABMS Reason Comments Follow Up [place] f/uC/o co ughDry mouth 4 weeks Reason Comments Pain Post Op Reason Comments Home Health Orders Reason Comments Follow HH Reason Comments Home Health Point of Care Results Refill Request Reason Comments Established Patient Reason Comments Head Injury Reason Comments Results Appointment Reason Comments leg wound Reason Onset Date Comments Refill Request 02/07/2025 Reason Comments Fall Laceration Care Teams (unrecognized sec tion and content) Historic Interpreter Relationship Specialty Start Date End Date Lizeth Saini PA-C [address] [place] [address] PCP - General Family Practice 03/25/16 Historic Interpreter Relationship Specialty Start Date End Date Lizeth Saini PA-C [address] [place] [address] PCP - General Family Practice 03/25/16 Historic Interpreter Relationship Specialty Start Date End Date Lizeth Saini PA-C [address] [place] [address] PCP - General Family Practice 03/25/16 Historic Interpreter Relationship Specialty Start Date End Date Lizeth Saini PA-C [address] [place] [address] PCP - General Family Practice 03/25/16 Historic Interpreter Relationship Specialty Start Date End Date Lizeth Saini PA-C [address] [place] [address] PCP - General Family Practice 03/25/16 Historic Interpreter Relationship Specialty Start Date End Date Lizeth Saini PA-C [address] [place] [address] PCP - General Family Practice 03/25/16 Historic Interpreter Relationship Specialty Start Date End Date Lizeth Saini PA-C [address] [place] [address] PCP - General Family Practice 03/25/16 Historic Interpreter Relationship Specialty Start Date End Date Lizeth Saini PA-C [address] [place] [address] PCP - General Family Practice 03/25/16 Historic Interpreter Relationship Specialty Start Date End Date Lizeth Saini PA-C [address] [place] [address] PCP - General Family Practice 03/25/16 Historic Interpreter Relationship Specialty Start Date End Date Lizeth Saini PA-C [address] [place] [address] PCP - General Family Practice 03/25/16 Historic Interpreter Relationship Specialty Start Date End Date Lizeth Saini PA-C [address] [place] [address] PCP - General Family Practice 03/25/16 Paris Parker, RN [address] [place] [address] Statistical Methods Professor Unspecified 03/24/22 Historic Interpreter Relationship Specialty Start Date End Date Lizeth Saini PA-C [address] [place] [address] PCP - General Family Practice 03/25/16 Paris Parker, RN [address] [facility] [place] [address] Statistical Methods Professor Unspecified 03/24/22 Historic Interpreter Relationship Specialty Start Date End Date Lizeth Saini PA-C [address] [facility] [place] [address] PCP - General Family Practice 03/25/16 Paris Parker, RN [address] [facility] [place] [address] Statistical Methods Professor Unspecified 03/24/22 Historic Interpreter Relationship Specialty Start Date End Date Lizeth Saini PA-C [address] [facility] [place] [address] PCP - General Family Medicine 03/25/16 Paris Parker, RN [address] [facility] [place] [address] Statistical Methods Professor Unspecified 03/24/22 Historic Interpreter Relationship Specialty Start Date End Date Lizeth Saini PA-C [address] [facility] [place] [address] PCP - General Family Medicine 03/25/16 Paris Parker, RN [address] [facility] [place] [address] Statistical Methods Professor Unspecified 03/24/22 Historic Interpreter Relationship Specialty Start Date End Date Lizeth Saini PA-C [address] [facility] [place] [address] PCP - General Family Medicine 03/25/16 Paris Parker, RN [address] [facility] [place] [address] Statistical Methods Professor Unspecified 03/24/22 Historic Interpreter Relationship Specialty Start Date End Date Lizeth Saini PA-C [address] [facility] [place] [address] PCP - General Family Medicine 03/25/16 Paris Parker, RN [address] [place] [address] Statistical Methods Professor Unspecified 03/24/22 Historic Interpreter Relationship Specialty Start Date End Date Lizeth Saini PA-C [address] [facility] [place] [address] PCP - General Family Medicine 03/25/16 Paris Parker, RN [address] [place] [address] Statistical Methods Professor Unspecified 03/24/22 Historic Interpreter Relationship Specialty Start Date End Date Lizeth Saini PA-C [address] [facility] [place] [address] PCP - General Family Medicine 03/25/16 Paris Parker, RN [address] [facility] [place] [address] Statistical Methods Professor Unspecified 03/24/22 Historic Interpreter Relationship Specialty Start Date End Date Lizeth Saini PA-C [address] [facility] [place] [address] PCP - General Family Medicine 03/25/16 Paris Parker, RN [address] [facility] [place] [address] Statistical Methods Professor Unspecified 03/24/22 Historic Interpreter Relationship Specialty Start Date End Date Lizeth Saini PA-C [address] [facility] [place] [address] PCP - General Family Medicine 03/25/16 Paris Parker, RN [address] [place] [address] Statistical Methods Professor Unspecified 03/24/22 Historic Interpreter Relationship Specialty Start Date End Date Lizeth Saini PA-C [address] [facility] [place] [address] PCP - General Family Medicine 03/25/16 Paris Parker, RN [address] [facility] [place] [address] Statistical Methods Professor Unspecified 03/24/22 Historic Interpreter Relationship Specialty Start Date End Date Lizeth Saini PA-C [address] [facility] [place] [address] PCP - General Family Medicine 03/25/16 Paris Parker, RN [address] [facility] [place] [address] Statistical Methods Professor Unspecified 03/24/22 Historic Interpreter Relationship Specialty Start Date End Date Lizeth Saini PA-C [address] [facility] [place] [address] PCP - General Family Medicine 03/25/16 Paris Parker, RN [address] [facility] [place] [address] Statistical Methods Professor Unspecified 03/24/22 Historic Interpreter Relationship Specialty Start Date End Date Lizeth Saini PA-C [address] [facility] [place] [address] PCP - General Family Medicine 03/25/16 Paris Parker, RN [address] [facility] [place] [address] Statistical Methods Professor Unspecified 03/24/22 Historic Interpreter Relationship Specialty Start Date End Date Lizeth Saini PA-C [address] [facility] [place] [address] PCP - General Family Medicine 03/25/16 Paris Parker, RN [address] [facility] [place] [address] Statistical Methods Professor Unspecified 03/24/22 Historic Interpreter Relationship Specialty Start Date End Date Lizeth Saini PA-C [address] [facility] [address] PCP - General Family Medicine 03/25/16 Paris Parker, RN [address] [facility] [place] [address] Statistical Methods Professor Unspecified 03/24/22 Historic Interpreter Relationship Specialty Start Date End Date Lizeth Saini PA-C [address] [facility] [place] [address] PCP - General Family Medicine 03/25/16 Beryl Kuhn, RN [address] [facility] [place] [address] Statistical Methods Professor Internal Medicine 01/26/23 Historic Interpreter Relationship Specialty Start Date End Date Lizeth Saini PA-C [address] [facility] [place] [address] PCP - General Family Medicine 03/25/16 Beryl Kuhn, RN [address] [facility] [place] [address] Statistical Methods Professor Internal Medicine 01/26/23 Historic Interpreter Relationship Specialty Start Date End Date Lizeth Saini PA-C [address] [facility] [place] [address] PCP - General Family Medicine 03/25/16 Beryl Kuhn, RN [address] [facility] [place] [address] Statistical Methods Professor Internal Medicine 01/26/23 Historic Interpreter Relationship Specialty Start Date End Date Lizeth Saini PA-C [address] [facility] [place] [address] PCP - General Family Medicine 03/25/16 Beryl Kuhn, RN [address] [facility] [place] [address] Statistical Methods Professor Internal Medicine 01/26/23 Historic Interpreter Relationship Specialty Start Date End Date Lizeth Saini PA-C [address] [facility] [place] [address] PCP - General Family Medicine 03/25/16 Beryl Kuhn, RN [address] [facility] [place] [address] Statistical Methods Professor Internal Medicine 01/26/23 Historic Interpreter Relationship Specialty Start Date End Date Lizeth Saini PA-C [address] [facility] [place] [address] PCP - General Family Medicine 03/25/16 Beryl Kuhn, RN [address] [facility] [place] [address] Statistical Methods Professor Internal Medicine 01/26/23 Historic Interpreter Relationship Specialty Start Date End Date Lizeth Sanii PA-C [address] [place] [address] PCP - General Family Medicine 03/25/16 Beryl Kuhn, RN [address] [facility] [place] [address] Statistical Methods Professor Internal Medicine 01/26/23 Historic Interpreter Relationship Specialty Start Date End Date Lizeth Saini PA-C [address] [facility] [place] [address] PCP - General Family Medicine 03/25/16 Beryl Kuhn, NITA [address] [facility] [place] [address] Statistical Methods Professor Internal Medicine 01/26/23 Historic Interpreter Relationship Specialty Start Date End Date Lizeth Saini PA-C [address] [place] [address] PCP - General Family Medicine 03/25/16 Beryl Kuhn, RN [address] [facility] [place] [address] Statistical Methods Professor Internal Medicine 01/26/23 Historic Interpreter Relationship Specialty Start Date End Date Lizeth Saini PA-C [address] [place] [address] PCP - General Family Medicine 03/25/16 Beryl Kuhn, RN [address] [place] [address] Statistical Methods Professor Internal Medicine 01/26/23 Team Status: Active Member Role Status Lizeth ALEJANDRA PA Family Provider Active Lizeth ALEJANDRA PA Primary Care Provider Active Team Status: Active Member Role Status Lizeth ALEJANDRA PA Primary Care Provider Active Dr. Cristiano Ramos MD Referring Provider, Other Prov ider Active Madelin Siddiqui HUMAN RESOURCE OFFICER-C Attending Provider Active Team Status: Active Member Role Status Lizeth ALEJANDRA PA Primary Care Provider Active Dr. Cristiano Ramos MD Attending Provider, Referring Provider Active Team Status: Active Member Role Status [place] [facility] Primary Care Provider Active Dr. Rudy Sin , Emergency Provider Active Dr. Fiorella Ramos MD Admit Provider, Attending Provid er Active Team Status: Active Member Role Status Lizeth ALEJANDRA PA Primary Care Provider Active Dr. Jah Ortiz MD Attending Provider Active Team Status: Active Member Role Status [place] [facility] Primary Care Provider Active Dr. Rudy Sin , Emergency Provider Active Dr. Fiorella Ramos MD Admit Provider, Other Provider A ctive Dr. Alvin Dumont , DO Attending Provider, Other Pro vider Active Dr. Jah Ortiz MD Other Provider Active Team Status: Inactive Member Role Status Lizeth ALEJANDRA PA Primary Care Provider Active Dr. Rudy Sin , Emergency Provider Active Dr. Fiorella Ramos MD Admit Provider, Other Provider A ctive Dr. Alvin Dumont , DO Attending Provider Active Dr. Jah Ortiz MD Other Provider Active Team Status: Inactive Member Role Status Lizeth ALEJANDRA PA Primary Care Provider Active Dr. Cristiano Ramos MD Attending Provider, Referring Provider Active Historic Interpreter Relationship Specialty Start Date End Date Lizeth Saini PA-C [address] [place] [address] PCP - General Family Medicine 03/25/16 Beryl Kuhn RN [address] [place] [address] Statistical Methods Professor Internal Medicine 01/26/23 Historic Interpreter Relationship Specialty Start Date End Date Lizeth Saini PA-C [address] [facility] [place] [address] PCP - General Family Medicine 03/25/16 Beryl Kuhn, RN [address] [facility] [place] [address] Statistical Methods Professor Internal Medicine 01/26/23 Historic Interpreter Relationship Specialty Start Date End Date Lizeth Saini PA-C [address] [facility] [place] [address] PCP - General Family Medicine 03/25/16 Beryl Kuhn, RN [address] [facility] [place] [address] Statistical Methods Professor Internal Medicine 01/26/23 Historic Interpreter Relationship Specialty Start Date End Date Lizeth Saini PA-C [address] [facility] [place] [address] PCP - General Family Medicine 03/25/16 Beryl Kuhn RN [address] [facility] [place] [address] Statistical Methods Professor Internal Medicine 01/26/23 Historic Interpreter Relationship Specialty Start Date End Date Lizeth Saini PA-C [address] [place] [address] PCP - General Family Medicine 03/25/16 Beryl Kuhn, RN [address] [facility] [place] [address] Statistical Methods Professor Internal Medicine 01/26/23 Historic Interpreter Relationship Specialty Start Date End Date Lizeth Saini PA-C [address] [facility] [place] [address] PCP - General Family Medicine 03/25/16 Beryl Kuhn RN [address] [facility] [place] [address] Statistical Methods Professor Internal Medicine 01/26/23 Historic Interpreter Relationship Specialty Start Date End Date Lizeth Saini PA-C [address] [facility] [place] [address] PCP - General Family Medicine 03/25/16 Beryl Kuhn, RN [address] [facility] [place] [address] Statistical Methods Professor Internal Medicine 01/26/23 Historic Interpreter Relationship Specialty Start Date End Date Lizeth Saini PA-C [address] [facility] [place] [address] PCP - General Family Medicine 03/25/16 Beryl Kuhn, RN [address] [facility] [place] [address] Statistical Methods Professor Internal Medicine 01/26/23 Historic Interpreter Relationship Specialty Start Date End Date Lizeth Saini PA-C [address] [facility] [place] [address] PCP - General Family Medicine 03/25/16 Beryl Kuhn RN [address] [facility] [place] [address] Statistical Methods Professor Internal Medicine 01/26/23 Historic Interpreter Relationship Specialty Start Date End Date Lizeth Saini PA-C [address] [facility] [place] [address] PCP - General Family Medicine 03/25/16 Beryl Kuhn, RN [address] [facility] [place] [address] Statistical Methods Professor Internal Medicine 01/26/23 Historic Interpreter Relationship Specialty Start Date End Date Lizeth Saini PA-C [address] [facility] [place] [address] PCP - General Family Medicine 03/25/16 Beryl Kuhn, RN [address] [facility] [place] [address] Statistical Methods Professor Internal Medicine 01/26/23 Historic Interpreter Relationship Specialty Start Date End Date Lizeth Saini PA-C [address] [facility] [place] [address] PCP - General Family Medicine 03/25/16 Beryl Kuhn, NITA [address] [facility] [place] [address] Statistical Methods Professor Internal Medicine 01/26/23 Historic Interpreter Relationship Specialty Start Date End Date Lizeth Saini PA-C [address] [facility] [place] [address] PCP - General Family Medicine 03/25/16 Beryl Kuhn, NITA [address] [facility] [place] [address] Statistical Methods Professor Internal Medicine 01/26/23 Historic Interpreter Relationship Specialty Start Date End Date Lizeth Saini PA-C [address] [facility] [place] [address] PCP - General Family Medicine 03/25/16 Beryl Kuhn, NITA [address] [facility] [place] [address] Statistical Methods Professor Internal Medicine 01/26/23 Historic Interpreter Relationship Specialty Start Date End Date Lizeth Saini PA-C [address] [facility] [place] [address] PCP - General Family Medicine 03/25/16 Beryl Kuhn RN [address] [facility] [place] [address] Statistical Methods Professor Internal Medicine 01/26/23 Historic Interpreter Relationship Specialty Start Date End Date Lizeth Saini PA-C [address] [facility] [place] [address] PCP - General Family Medicine 03/25/16 Beryl Kuhn, RN [address] [facility] [address] Statistical Methods Professor Internal Medicine 01/26/23 Historic Interpreter Relationship Specialty Start Date End Date Lizeth Saini PA-C [address] [place] [address] PCP - General Family Medicine 03/25/16 Beryl Kuhn, RN [address] [facility] [place] [address] Statistical Methods Professor Internal Medicine 01/26/23 Historic Interpreter Relationship Specialty Start Date End Date Lizeth Saini PA-C [address] [place] [address] PCP - General Family Medicine 03/25/16 Beryl Kuhn RN [address] [facility] [place] [address] Statistical Methods Professor Internal Medicine 01/26/23 Historic Interpreter Relationship Specialty Start Date End Date Lizeth Saini PA-C [address] [place] [address] PCP - General Family Medicine 03/25/16 Beryl Kuhn RN [address] [facility] [address] Statistical Methods Professor Internal Medicine 01/26/23 Historic Interpreter Relationship Specialty Start Date End Date Lizeth Saini PA-C [address] [place] [address] PCP - General Family Medicine 03/25/16 Beryl Kuhn, NITA [address] [facility] [place] [address] Statistical Methods Professor Internal Medicine 01/26/23 Ed Avendano, [facility] [address] [place] [address] Specialty Associate Team Physician Orthopedics 03/08/24 06/02/24 Historic Interpreter Relationship Specialty Start Date End Date Lizeth Saini PA-C [address] [place] [address] PCP - General Family Medicine 03/25/16 Beryl Kuhn, RN [address] [place], [place] 1565631 Statistical Methods Professor Internal Medicine 01/26/23 Ed Avendano, [facility] [address] [place] [address] Specialty Associate Team Physician Orthopedics 03/08/24 06/02/24 Historic Interpreter Relationship Specialty Start Date End Date Lizeth Saini PA-C [address] [place] [address] PCP - General Family Medicine 03/25/16 Beryl Kuhn, RN [address] [place], [place] 4676131 Statistical Methods Professor Internal Medicine 01/26/23 Ed Avendano, [facility] [address] [place] [address] Specialty Associate Team Physician Orthopedics 03/08/24 06/02/24 Historic Interpreter Relationship Specialty Start Date End Date Lizeth Saini PA-C [address] [place] [address] PCP - General Family Medicine 03/25/16 Beryl uKhn RN [address] [place] [address] Statistical Methods Professor Internal Medicine 01/26/23 Ed Avendano, [facility] [address] [place] [address] Specialty Associate Team Physician Orthopedics 03/08/24 06/02/24 Historic Interpreter Relationship Specialty Start Date End Date Lizeth Saini PA-C [address] [place] [address] PCP - General Family Medicine 03/25/16 Beryl Kuhn, NITA [address] [place] [address] Statistical Methods Professor Internal Medicine 01/26/23 Ed Avendnao, [facility] [address] [place] [address] Specialty Associate Team Physician Orthopedics 03/08/24 06/02/24 Historic Interpreter Relationship Specialty Start Date End Date Lizeth Saini PA-C [address] [place] [address] PCP - General Family Medicine 03/25/16 Beryl Kuhn, RN [address] [place], [place] 9863631 Statistical Methods Professor Internal Medicine 01/26/23 Ed Avendano, [facility] [address] [place] [address] Specialty Associate Team Physician Orthopedics 03/08/24 06/02/24 Historic Interpreter Relationship Specialty Start Date End Date Lizeth Saini PA-C [address] [place] [address] PCP - General Family Medicine 03/25/16 Beryl Kuhn, NITA [address] [place] [address] Statistical Methods Professor Internal Medicine 01/26/23 Ed Avendano, [facility] [address] [place] [address] Specialty Associate Team Physician Orthopedics 03/08/24 06/02/24 Historic Interpreter Relationship Specialty Start Date End Date Lizeth Saini PA-C [address] [place] [address] PCP - General Family Medicine 03/25/16 Beryl Kuhn, RN [address] [place], [place] 1785231 Statistical Methods Professor Internal Medicine 01/26/23 Servando Avendanoin, [facility] [address] [place] [address] Specialty Associate Team Physician Orthopedics 03/08/24 06/02/24 Historic Interpreter Relationship Specialty Start Date End Date Lizeth Saini PA-C [address] [place], [place] 297241 PCP - General Family Medicine 03/25/16 Beryl Kuhn, RN [address] [place], [place] 4305731 Statistical Methods Professor Internal Medicine 01/26/23 Ed Avendano, [facility] [address] [place] [address] Specialty Associate Team Physician Orthopedics 03/08/24 06/02/24 Historic Interpreter Relationship Specialty Start Date End Date Lizeth Saini PA-C [address] [place] [address] PCP - General Family Medicine 03/25/16 Beryl Kuhn, RN [address] [place], [place] 0299731 Statistical Methods Professor Internal Medicine 01/26/23 Ed Avendano, [facility] [address] [place] [address] Specialty Associate Team Physician Orthopedics 03/08/24 06/02/24 Historic Interpreter Relationship Specialty Start Date End Date Lizeth Saini PA-C [address] [place] [address] PCP - General Family Medicine 03/25/16 Beryl Kuhn, NITA [address] [place], [place] 9294331 Statistical Methods Professor Internal Medicine 01/26/23 Ed Avendano, [facility] [address] [place] [address] Specialty Associate Team Physician Orthopedics 03/08/24 06/02/24 Historic Interpreter Relationship Specialty Start Date End Date Lizeth Saini PA-C [address] [place] [address] PCP - General Family Medicine 03/25/16 Beryl Kuhn, RN [address] [place], [place] 1525031 Statistical Methods Professor Internal Medicine 01/26/23 Ed Avendano, [facility] [address] [place] [address] Specialty Associate Team Physician Orthopedics 03/08/24 06/02/24 Historic Interpreter Relationship Specialty Start Date End Date Lizeth Saini PA-C [address] [place] [address] PCP - General Family Medicine 03/25/16 Beryl Kuhn, RN [address] [place] [address] Statistical Methods Professor Internal Medicine 01/26/23 Sissen, Ed, [facility] [address] [place] [address] Specialty Associate Team Physician Orthopedics 03/08/24 06/02/24 Historic Interpreter Relationship Specialty Start Date End Date Lizeth Saini PA-C [address] [place] [address] PCP - General Family Medicine 03/25/16 Beryl Kuhn RN [address] [place], [place] 5475031 Statistical Methods Professor Internal Medicine 01/26/23 Sisrichard, Ed, [facility] [address] [place] [address] Specialty Associate Team Physician Orthopedics 03/08/24 06/02/24 Historic Interpreter Relationship Specialty Start Date End Date Lizeth Saini PA-C [address] [place] [address] PCP - General Family Medicine 03/25/16 Beryl Kuhn, NITA [address] [place], [place] 5344531 Statistical Methods Professor Internal Medicine 01/26/23 Sissen, Ed, [facility] [address] [place] [address] Specialty Associate Team Physician Orthopedics 03/08/24 06/02/24 Historic Interpreter Relationship Specialty Start Date End Date Valery Quinteros APRN.ASSISTANT PORTFOLIO MANAGER [address] [place] [address] PCP - General Family Medicine 05/12/24 Beryl Kuhn RN [address] [place], [place] 9976431 Statistical Methods Professor Internal Medicine 01/26/23 Ed Avendano, [facility] [address] [place] [address] Specialty Associate Team Physician Orthopedics 03/08/24 06/02/24 Kayla Machado MD [address] [place], [place] [address] Hematology/Oncology 05/09/24 Historic Interpreter Relationship Specialty Start Date End Date Valery Quinteros PROTOZOOLOGIST.ASSISTANT PORTFOLIO MANAGER [address] [place], [place] 206931 PCP - General Family Medicine 05/12/24 Beryl Kuhn RN [address] [place], [place] 7835931 Statistical Methods Professor Internal Medicine 01/26/23 Ed Avendano, [facility] [address] [place] [address] Specialty Associate Team Physician Orthopedics 03/08/24 06/02/24 Kayla Machado MD [address] [place] [address] Hematology/Oncology 05/09/24 Historic Interpreter Relationship Specialty Start Date End Date Lizeth Saini PA-C [address] [place] [address] PCP - General Family Medicine 03/25/16 05/11/24 Historic Interpreter Relationship Specialty Start Date End Date Valery Quinteros PROTOZOOLOGIST.ASSISTANT PORTFOLIO MANAGER [address] [place], [place] [address]61 PCP - General Family Medicine 05/12/24 Beryl Kuhn RN [address] [place], [place] 3268731 Statistical Methods Professor Internal Medicine 01/26/23 Ed Avendano, [facility] [address] [place] [address] Specialty Associate Team Physician Orthopedics 03/08/24 06/02/24 Kayla Machado MD [address] [place] [address] Hematology/Oncology 05/09/24 Historic Interpreter Relationship Specialty Start Date End Date Valery Quinteros APRN.ASSISTANT PORTFOLIO MANAGER [address] [place] [address] PCP - General Family Medicine 05/12/24 Beryl Kuhn, RN [address] [place], [place] 1167731 Statistical Methods Professor Internal Medicine 01/26/23 Kayla Machado MD [address] [place] [address] Hematology/Oncology 05/09/24 Historic Interpreter Relationship Specialty Start Date End Date Lizeth Saini PA-C [address] [place] [address] PCP - General Family Medicine 03/25/16 05/11/24 Valery Quinteros PROTOZOOLOGIST.ASSISTANT PORTFOLIO MANAGER [address] [place] [address] PCP - General Family Medicine 05/12/24 Beryl Kuhn, NITA [address] [place] [address] Statistical Methods Professor Internal Medicine 01/26/23 Ed Avendano, [facility] [address] [place] [address] Specialty Associate Team Physician Orthopedics 03/08/24 06/02/24 Kayla Machado MD [address] [place] [address] Hematology/Oncology 05/09/24 Historic Interpreter Relationship Specialty Start Date End Date Valery Quinteros PROTOZOOLOGIST.ASSISTANT PORTFOLIO MANAGER [address] [facility] [place] [address] PCP - General Family Medicine 05/12/24 Beryl Kuhn, NITA [address] [place] [address] Statistical Methods Professor Internal Medicine 01/26/23 Kayla Machado MD [address] [place] [address] Hematology/Oncology 05/09/24 Historic Interpreter Relationship Specialty Start Date End Date Valery Quinteros PROTOZOOLOGIST.ASSISTANT PORTFOLIO MANAGER [address] [place] [address] PCP - General Family Medicine 05/12/24 Beryl Kuhn RN [address] [place] [address] Statistical Methods Professor Internal Medicine 01/26/23 Kayla Machado MD [address] [place] [address] Hematology/Oncology 05/09/24 Historic Interpreter Relationship Specialty Start Date End Date Valery Quinteros PROTOZOOLOGIST.ASSISTANT PORTFOLIO MANAGER [address] [place] [address] PCP - General Family Medicine 05/12/24 Beryl Kuhn, NITA [address] [place] [address] Statistical Methods Professor Internal Medicine 01/26/23 Ed Avendano, [facility] [address] [place] [address] Specialty Associate Team Physician Orthopedics 03/08/24 10/19/24 Kayla Machado MD [address] [place] [address] Hematology/Oncology 05/09/24 Historic Interpreter Relationship Specialty Start Date End Date Valery Quinteros PROTOZOOLOGIST.ASSISTANT PORTFOLIO MANAGER [address] [facility] [place] [address] PCP - General Family Medicine 05/12/24 Ed Avendano, [facility] [address] [place] [address] Specialty Associate Team Physician Orthopedics 03/08/24 10/19/24 Kayla Machado MD [address] [place] [address] Hematology/Oncology 05/09/24 Historic Interpreter Relationship Specialty Start Date End Date Valery Quinteros PROTOZOOLOGIST.ASSISTANT PORTFOLIO MANAGER [address] [facility] [place] [address] PCP - General Family Medicine 05/12/24 Ed Avendano, [facility] [address] [place] [address] Specialty Associate Team Physician Orthopedics 03/08/24 10/19/24 Kayla Machado MD [address] [place] [address] Hematology/Oncology 05/09/24 Historic Interpreter Relationship Specialty Start Date End Date Valery Quinteros PROTOZOOLOGIST.ASSISTANT PORTFOLIO MANAGER [address] [facility] [place] [address] PCP - General Family Medicine 05/12/24 Ed Avendano, [facility] [address] [place] [address] Specialty Associate Team Physician Orthopedics 03/08/24 10/19/24 Kayla Machado MD [address] [place] [address] Hematology/Oncology 05/09/24 Historic Interpreter Relationship Specialty Start Date End Date Valery Quinteros PROTOZOOLOGIST.ASSISTANT PORTFOLIO MANAGER [address] [facility] [place] [address] PCP - General Family Medicine 05/12/24 Ed Avendano, [facility] [address] [place] [address] Specialty Associate Team Physician Orthopedics 03/08/24 10/19/24 Kayla Machado MD [address] [facility] [place] [address] Hematology/Oncology 05/09/24 Historic Interpreter Relationship Specialty Start Date End Date Valery Quinteros PROTOZOOLOGIST.ASSISTANT PORTFOLIO MANAGER [address] [place] [address] PCP - General Family Medicine 05/12/24 Ed Avendano, [facility] [address] [place] [address] Specialty Associate Team Physician Orthopedics 03/08/24 10/19/24 Kayla Machado MD [address] [facility] [place] [address] Hematology/Oncology 05/09/24 Historic Interpreter Relationship Specialty Start Date End Date Valery Quinteros, PROTOZOOLOGIST.ASSISTANT PORTFOLIO MANAGER [address] [facility] [place] [address] PCP - General Family Medicine 05/12/24 Ed Avendano, [facility] [address] [place] [address] Specialty Associate Team Physician Orthopedics 03/08/24 10/19/24 Kayla Machado MD [address] [facility] [place] [address] Hematology/Oncology 05/09/24 Historic Interpreter Relationship Specialty Start Date End Date Valery Quinteros, PROTOZOOLOGIST.ASSISTANT PORTFOLIO MANAGER [address] [facility] [place] [address] PCP - General Family Medicine 05/12/24 Ed Avendano, [facility] [address] [place] [address] Specialty Associate Team Physician Orthopedics 03/08/24 10/19/24 Kayla Machado MD [address] [facility] [place] [address] Hematology/Oncology 05/09/24 Historic Interpreter Relationship Specialty Start Date End Date Valery Quinteros, PROTOZOOLOGIST.ASSISTANT PORTFOLIO MANAGER [address] [place] [address] PCP - General Family Medicine 05/12/24 Ed Avendano, [facility] [address] [place] [address] Specialty Associate Team Physician Orthopedics 03/08/24 10/19/24 Kayla Machado MD [address] [place] [address] Hematology/Oncology 05/09/24 Historic Interpreter Relationship Specialty Start Date End Date Valery Quinteros, PROTOZOOLOGIST.ASSISTANT PORTFOLIO MANAGER [address] [facility] [place] [address] PCP - General Family Medicine 05/12/24 Ed Avenadno, [facility] [address] [place] [address] Specialty Associate Team Physician Orthopedics 03/08/24 10/19/24 Kayla Machado MD [address] [place] [address] Hematology/Oncology 05/09/24 Historic Interpreter Relationship Specialty Start Date End Date Valery Quinteros APRN.ASSISTANT PORTFOLIO MANAGER [address] [place] [address] PCP - General Family Medicine 05/12/24 Ed Avendano, [facility] [address] [place] [address] Specialty Associate Team Physician Orthopedics 03/08/24 10/19/24 Kayla Machado MD [address] [place] [address] Hematology/Oncology 05/09/24 Historic Interpreter Relationship Specialty Start Date End Date Valery Quinteros PROTOZOOLOGIST.ASSISTANT PORTFOLIO MANAGER [address] [place] [address] PCP - General Family Medicine 05/12/24 Ed Avendano, [facility] [address] [place] [address] Specialty Associate Team Physician Orthopedics 03/08/24 10/19/24 Kayla Machado MD [address] [facility] [place] [address] Hematology/Oncology 05/09/24 Historic Interpreter Relationship Specialty Start Date End Date Valery Quinteros PROTOZOOLOGIST.ASSISTANT PORTFOLIO MANAGER [address] [place] [address] PCP - General Family Medicine 05/12/24 Ed Avendano, [facility] [address] [place] [address] Specialty Associate Team Physician Orthopedics 03/08/24 10/19/24 Kayla Machado MD [address] [place] [address] Hematology/Oncology 05/09/24 Historic Interpreter Relationship Specialty Start Date End Date Valery Quinteros PROTOZOOLOGIST.ASSISTANT PORTFOLIO MANAGER [address] [place] [address] PCP - General Family Medicine 05/12/24 Ed Avendano, [facility] [address] [place] [address] Specialty Associate Team Physician Orthopedics 03/08/24 10/19/24 Kayla Machado MD [address] [facility] [place] [address] Hematology/Oncology 05/09/24 Historic Interpreter Relationship Specialty Start Date End Date Valery Quinteros PROTOZOOLOGIST.ASSISTANT PORTFOLIO MANAGER [address] [place] [address] PCP - General Family Medicine 05/12/24 Ed Avendano, [facility] [address] [place] [address] Specialty Associate Team Physician Orthopedics 03/08/24 11/10/24 Kayla Machado MD [address] [facility] [place] [address] Hematology/Oncology 05/09/24 Historic Interpreter Relationship Specialty Start Date End Date Valery Quinteros, PROTOZOOLOGIST.ASSISTANT PORTFOLIO MANAGER [address] [place] [address] PCP - General Family Medicine 05/12/24 Ed Avendano, [facility] [address] [place] [address] Specialty Associate Team Physician Orthopedics 03/08/24 11/10/24 Kayla Machado MD [address] [place] [address] Hematology/Oncology 05/09/24 Historic Interpreter Relationship Specialty Start Date End Date Valery Quinteros PROTOZOOLOGIST.ASSISTANT PORTFOLIO MANAGER [address] [place] [address] PCP - General Family Medicine 05/12/24 Ed Avendano, [facility] [address] [place] [address] Specialty Associate Team Physician Orthopedics 03/08/24 11/10/24 Kayla Machado MD [address] [place] [address] Hematology/Oncology 05/09/24 Ryan Alonzo MD [address] [place] [address] Home Care Provider Orthopedics 10/08/24 Ryan Alonzo MD [address] [place] [address] Referring Orthopedics 10/08/24 Historic Interpreter Relationship Specialty Start Date End Date Valery Quinteros PROTOZOOLOGIST.ASSISTANT PORTFOLIO MANAGER [address] [place] [address] PCP - General Family Medicine 05/12/24 Ed Avendano, [facility] [address] [place] [address] Specialty Associate Team Physician Orthopedics 03/08/24 11/10/24 Kayla Machado MD [address] [place] [address] Hematology/Oncology 05/09/24 Ryan Alonzo MD [address] [place] [address] Home Care Provider Orthopedics 10/08/24 Ryan Alonzo MD [address] [place] [address] Referring Orthopedics 10/08/24 Historic Interpreter Relationship Specialty Start Date End Date Valery Quinteros, PROTOZOOLOGIST.ASSISTANT PORTFOLIO MANAGER [address] [place] [address] PCP - General Family Medicine 05/12/24 Ed Avendano, [facility] [address] [place] [address] Specialty Associate Team Physician Orthopedics 03/08/24 11/10/24 Kayla Machado MD [address] [place] [address] Hematology/Oncology 05/09/24 Ryan Alonzo MD [address] [place] [address] Home Care Provider Orthopedics 10/08/24 Ryan Alonzo MD [address] [place] [address] Referring Orthopedics 10/08/24 Historic Interpreter Relationship Specialty Start Date End Date Valery Quinteros, PROTOZOOLOGIST.ASSISTANT PORTFOLIO MANAGER [address] [place] [address] PCP - General Family Medicine 05/12/24 Ed Avendano, [facility] [address] [place] [address] Specialty Associate Team Physician Orthopedics 03/08/24 11/10/24 Kayla Machado MD [address] [place] [address] Hematology/Oncology 05/09/24 Ryan Alonzo MD [address] [place] [address] Home Care Provider Orthopedics 10/08/24 Ryan Alonzo MD [address] [place] [address] Referring Orthopedics 10/08/24 Historic Interpreter Relationship Specialty Start Date End Date Valery Quinteros, PROTOZOOLOGIST.ASSISTANT PORTFOLIO MANAGER [address] [place] [address] PCP - General Family Medicine 05/12/24 Ed Avendano, [facility] [address] [place] [address] Specialty Associate Team Physician Orthopedics 03/08/24 11/10/24 Kayla Machado MD [address] [place] [address] Hematology/Oncology 05/09/24 Ryan Alonzo MD [address] [place] [address] Home Care Provider Orthopedics 10/08/24 Ryan Alonzo MD [address] [place] [address] Referring Orthopedics 10/08/24 Historic Interpreter Relationship Specialty Start Date End Date Valery Quinteros, PROTOZOOLOGIST.ASSISTANT PORTFOLIO MANAGER [address] [place] [address] PCP - General Family Medicine 05/12/24 Ed Avendano, [facility] [address] [place] [address] Specialty Associate Team Physician Orthopedics 03/08/24 11/10/24 Kayla Machado MD [address] [place] [address] Hematology/Oncology 05/09/24 Ryan Alonzo MD [address] [place] [address] Home Care Provider Orthopedics 10/08/24 Ryan Alonzo MD [address] [place] [address] Referring Orthopedics 10/08/24 Historic Interpreter Relationship Specialty Start Date End Date Valery Quinteros APRN.ASSISTANT PORTFOLIO MANAGER [address] [place] [address] PCP - General Family Medicine 05/12/24 Ed Avendano, [facility] [address] [place] [address] Specialty Associate Team Physician Orthopedics 03/08/24 11/10/24 Kayla Machado MD [address] [place] [address] Hematology/Oncology 05/09/24 Ryan Alonzo MD [address] [place] [address] Home Care Provider Orthopedics 10/08/24 Ryan Alonzo MD [address] [place] [address] Referring Orthopedics 10/08/24 Historic Interpreter Relationship Specialty Start Date End Date Valery Quinteros PROTOZOOLOGIST.ASSISTANT PORTFOLIO MANAGER [address] [place] [address] PCP - General Family Medicine 05/12/24 Ed Avendano, [facility] [address] [place] [address] Specialty Associate Team Physician Orthopedics 03/08/24 11/10/24 Kayla Machado MD [address] [place] [address] Hematology/Oncology 05/09/24 Ryan Alonzo MD [facility] [place] [address] Home Care Provider Orthopedics 10/08/24 Ryan Alonzo MD [facility] [place] [address] Referring Orthopedics 10/08/24 Historic Interpreter Relationship Specialty Start Date End Date Valery Quinteros APRN.ASSISTANT PORTFOLIO MANAGER [address] [place] [address] PCP - General Family Medicine 05/12/24 Ed Avendano, [facility] [address] [place] [address] Specialty Associate Team Physician Orthopedics 03/08/24 11/10/24 Kayla Machado MD [address] [place] [address] Hematology/Oncology 05/09/24 Ryan Alonzo MD [address] [place] [address] Home Care Provider Orthopedics 10/08/24 Ryan Alonzo MD [facility] [place] [address] Referring Orthopedics 10/08/24 Historic Interpreter Relationship Specialty Start Date End Date Valery Quinteros PROTOZOOLOGIST.ASSISTANT PORTFOLIO MANAGER [address] [place] [address] PCP - General Family Medicine 05/12/24 Kayla Machado MD [address] [place] [address] Hematology/Oncology 05/09/24 Ryan Alonzo MD [address] [place] [address] Home Care Provider Orthopedics 10/08/24 Ryan Alonzo MD [address] [place] [address] Referring Orthopedics 10/08/24 Historic Interpreter Relationship Specialty Start Date End Date Valery Quinteros APRN.ASSISTANT PORTFOLIO MANAGER [address] [place] [address] PCP - General Family Medicine 05/12/24 Kayla Machado MD [address] [place] [address] Hematology/Oncology 05/09/24 Ryan Alonzo MD [address] [place] [address] Home Care Provider Orthopedics 10/08/24 Ryan Alonzo MD [address] [place], [place] [address] Referring Orthopedics 10/08/24 Team Status: Active Member Role Status Dates PANCHITO Harris Primary Care Provider Active Team Status: Active Member Role Status Dates PANCHITO Harris Primary Care Provider Active Start: October 17, 2024 Dr. Ana SILVERMAN MD Attending Provider Active Start: October 17, 2024 Team Status: Active Member Role Status Dates Valery Suppshonda , [employer] WHEEL MAKER Primary Care Provider Active Start: October 26, 2024 Dr. Ana SILVERMAN MD Attending Provider Active Start: October 26, 2024 Team Status: Active Member Role Status Dates Valery Suppan , [employer] WHEEL MAKER Primary Care Provider Active Start: November 07, 2024 Dr. Ana SILVERMAN MD Attending Provider Active Start: November 07, 2024 Team Status: Active Member Role Status Dates Valery Suppshonda , SLE[employer] WHEEL MAKER Primary Care Provider Active Start: November 07, 2024 Dr. Ellyn Mcclain DO Emergency Provider Active Start: November 07, 2024 Dr. Andrey Mitchell , Admit Provider Active Start: November 07, 2024 Dr. Andrey Mitchell DO Attending Provider Active Start: November 07, 2024 Dr. Andrey Mitchell DO Referring Provider Active Start: November 07, 2024 Team Status: Inactive Member Role Status Dates Valery Quinteros , [employer] WHEEL MAKER Primary Care Provider Active Start: November 07, 2024 End: November 10, 2024 Dr. Ellyn Mcclain DO Emergency Provider Active Start: November 07, 2024 End: November 10, 2024 Dr. Andrey Mitchell DO Admit Provider Active Start: November 07, 2024 End: November 10, 2024 Dr. Andrey Mitchell DO Attending Provider Active Start: November 07, 2024 End: November 10, 2024 Dr. Andrey Mitchell DO Referring Provider Active Start: November 07, 2024 End: November 10, 2024 Dr. Andrey Mitchell DO Other Provider Active Start: November 07, 2024 End: November 10, 2024 Dr. Ju Fragoso MD Other Provider Active St art: November 07, 2024 End: November 10, 2024 Team Status: Active Member Role Status Dates Valery Suppan , SLEEVE WHEEL MAKER Primary Care Provider Active Start: November 07, 2024 Dr. Ellyn Mcclain DO Emergency Provider Active Start: November 07, 2024 Dr. Andrey Mitchell DO Admit Provider Active Start: November 07, 2024 Dr. Andrey Mitchell DO Referring Provider Active Start: November 07, 2024 Dr. Andrey Mitchell DO Other Provider Active Start: November 07, 2024 Dr. Slade Florez , Attending Provider Active Start: November 07, 2024 Team Status: Active Member Role Status Dates Valery Quinteros , [employer]E WHEEL MAKER Primary Care Provider Active Start: November 08, 2024 Dr. Ernie Powell MD Attending Provider Active S tart: November 08, 2024 Team Status: Active Member Role Status Dates Valery Stallingsan , SLE[employer] WHEEL MAKER Primary Care Provider Active Start: November 08, 2024 Dr. Ellyn Mcclain , Emergency Provider Active Start: November 08, 2024 Dr. Andrey Mitchell , Admit Provider Active Start: November 08, 2024 Dr. Andrey Mitchell DO Referring Provider Active Start: November 08, 2024 Dr. Andrey Mitchell DO Other Provider Active Start: November 08, 2024 Dr. Ju Fragoso MD Attending Provider Active Start: November 08, 2024 Dr. Ju Fragoso MD Other Provider Active St art: November 08, 2024 Team Status: Active Member Role Status Dates Valery Quinteros , SLE[employer]E WHEEL MAKER Primary Care Provider Active Start: November 08, 2024 Dr. Ellyn Mcclain DO Emergency Provider Active Start: November 08, 2024 Dr. Andrey Mitchell DO Admit Provider Active Start: November 08, 2024 Dr. Andrey Mitchell DO Referring Provider Active Start: November 08, 2024 Dr. Andrey Mitchell DO Other Provider Active Start: November 08, 2024 Dr. Ju Fragoso MD Other Provider Active St art: November 08, 2024 Dr. Slade Florez DO Attending Provider Active Start: November 08, 2024 Team Status: Active Member Role Status Dates Valery Quinteros , SLE[employer] WHEEL MAKER Primary Care Provider Active Start: November 09, 2024 Dr. Ellyn Mcclain DO Emergency Provider Active Start: November 09, 2024 Dr. Andrey Mitchell DO Admit Provider Active Start: November 09, 2024 Dr. Andrey Mitchell DO Referring Provider Active Start: November 09, 2024 Dr. Andrey Mitchell DO Other Provider Active Start: November 09, 2024 Dr. Ju Fragoso MD Attending Provider Active Start: November 09, 2024 Dr. Ju Fragoso MD Other Provider Active St art: November 09, 2024 Team Status: Active Member Role Status Dates Valery Quinteros , SLE[employer] WHE[employer] MAKER Primary Care Provider Active Start: November 10, 2024 Dr. Ellyn Mcclain DO Emergency Provider Active Start: November 10, 2024 Dr. Andrey Mitchell DO Admit Provider Active Start: November 10, 2024 Dr. Andrey Mitchell DO Attending Provider Active Start: November 10, 2024 Dr. Andrey Mitchell DO Referring Provider Active Start: November 10, 2024 Dr. Andrey Mitchell DO Other Provider Active Start: November 10, 2024 Dr. Ju Fragoso MD Other Provider Active St art: November 10, 2024 Team Status: Inactive Member Role Status Dates Valery Quinteros , SLE[employer] WHEEL MAKER Primary Care Provider Active Start: November 07, 2024 End: November 07, 2024 Dr. Ana SILVERMAN MD Attending Provider Active Start: November 07, 2024 End: November 07, 2024 Dr. Ana SILVERMAN MD Referring Provider Active Start: November 07, 2024 End: November 07, 2024 Team Status: Active Member Role Status Dates Valery Quinteros , SLEEVE WHEEL MAKER Primary Care Provider Active Start: November 08, 2024 Dr. Ellyn Mcclain DO Emergency Provider Active Start: November 08, 2024 Dr. Andrey Mitchell DO Admit Provider Active Start: November 08, 2024 Dr. Andrey Mitchell DO Other Provider Active Start: November 08, 2024 Dr. Ju Fragoso MD Attending Provider Active Start: November 08, 2024 Dr. Ju Fragoso MD Other Provider Active St art: November 08, 2024 Team Status: Active Member Role Status Dates Valery Quinteros SLEEVE WHEEL MAKER Primary Care Provider Active Start: November 09, 2024 Dr. Ellyn Mcclain DO Emergency Provider Active Start: November 09, 2024 Dr. Andrey Mitchell DO Admit Provider Active Start: November 09, 2024 Dr. Andrey Mitchell DO Other Provider Active Start: November 09, 2024 Dr. Ju Fragoso MD Attending Provider Active Start: November 09, 2024 Dr. Ju Fragoso MD Other Provider Active St art: November 09, 2024 Team Status: Active Member Role Status Dates Valery Quinteros , SLE[employer] WHEEL MAKER Primary Care Provider Active Start: November 10, 2024 Dr. Ellyn Mcclain DO Emergency Provider Active Start: November 10, 2024 Dr. Andrey Mitchell DO Admit Provider Active Start: November 10, 2024 Dr. Andrey Mitchell DO Attending Provider Active Start: November 10, 2024 Dr. Andrey Mitchell DO Other Provider Active Start: November 10, 2024 Dr. Ju Fragoso MD Other Provider Active St art: November 10, 2024 Team Status: Active Member Role Status Dates Valery Quinteros , SLEEVE WHEEL MAKER Primary Care Provider Active Start: November 11, 2024 Dr. Ana SILVERMAN MD Attending Provider Active Start: November 11, 2024 Team Status: Active Member Role Status Dates Valery Quinteros , SLEEVE WHEEL MAKER Primary Care Provider Active Start: November 14, 2024 Dr. Ana SILVERMAN MD Attending Provider Active Start: November 14, 2024 Team Status: Active Member Role Status Dates Valery Quinteros , SLEEVE WHEEL MAKER Primary Care Provider Active Start: November 16, 2024 Dr. Aan SILVERMAN MD Attending Provider Active Start: November 16, 2024 Team Status: Active Member Role Status Dates Valery Quinteros , SLE[employer]E WHEEL MAKER Primary Care Provider Active Start: November 21, 2024 Dr. Ana SILVERMAN MD Attending Provider Active Start: November 21, 2024 Historic Interpreter Relationship Specialty Start Date End Date Valery Quinteros, PROTOZOOLOGIST.ASSISTANT PORTFOLIO MANAGER [address] [place] [address] PCP - General Family Medicine 05/12/24 Kayla Machado MD [address] [place], [place] [address] Hematology/Oncology 05/09/24 Ryan Alonzo MD [address] [place] [address] Home Care Provider Orthopedics 10/08/24 Ryan Alonzo MD [address] [place] [address] Referring Orthopedics 10/08/24 Team Status: Active Member Role Status Dates Valery Quinteros SLEEVE WHEEL MAKER Primary Care Provider Active Start: November 25, 2024 Dr. Ana SILVERMAN MD Attending Provider Active Start: November 25, 2024 Team Status: Active Member Role Status Dates PANCHITO Harris Primary Care Provider Active Start: November 25, 2024 Dr. Radha Goodrich DO Emergency Provider Active Start: November 25, 2024 Dr. Ju Fragoso MD Admit Provider Active St art: November 25, 2024 Dr. Ju Fragoso MD Attending Provider Active Start: November 25, 2024 Team Status: Active Member Role Status Dates PANCHITO Harris Primary Care Provider Active Start: November 21, 2024 Dr. Ana SILVERMAN MD Attending Provider Active Start: November 21, 2024 Dr. Ana SILVERMAN MD Referring Provider Active Start: November 21, 2024 Team Status: Inactive Member Role Status Dates PANCHITO Harris Primary Care Provider Active Start: November 25, 2024 End: November 28, 2024 Dr. Radha Goodrich DO Emergency Provider Active Start: November 25, 2024 End: November 28, 2024 Dr. Ju Fragoso MD Admit Provider Active St art: November 25, 2024 End: November 28, 2024 Dr. Ju Fragoso MD Other Provider Active St art: November 25, 2024 End: November 28, 2024 Dr. Fiorella Ramos MD Attending Provider Active Start: November 25, 2024 End: November 28, 2024 Dr. Artie Palacio MD Other Provider Active Star t: November 25, 2024 End: November 28, 2024 Team Status: Active Member Role Status Dates PANCHITO Harris Primary Care Provider Active Start: November 25, 2024 Dr. Radha Goodrich DO Emergency Provider Active Start: November 25, 2024 Dr. Ju Fragoso MD Admit Provider Active St art: November 25, 2024 Dr. Ju Fragoso MD Attending Provider Active Start: November 25, 2024 Dr. Ju Fragoso MD Other Provider Active St art: November 25, 2024 Team Status: Active Member Role Status Dates PANCHITO Harris Primary Care Provider Active Start: November 26, 2024 Dr. Radha Goodrich DO Emergency Provider Active Start: November 26, 2024 Dr. Ju Fragoso MD Admit Provider Active St art: November 26, 2024 Dr. Ju Fragoso MD Other Provider Active St art: November 26, 2024 Dr. Artie Palacio MD Attending Provider Active Start: November 26, 2024 Dr. Artie Palacio MD Other Provider Active Star t: November 26, 2024 Team Status: Active Member Role Status Dates PANCHITO Harris Primary Care Provider Active Start: November 26, 2024 Dr. Radha Goodrich DO Emergency Provider Active Start: November 26, 2024 Dr. Ju Fragoso MD Admit Provider Active St art: November 26, 2024 Dr. Ju Fragoso MD Other Provider Active St art: November 26, 2024 Dr. Artie Palacio MD Other Provider Active Star t: November 26, 2024 Dr. Al Barrientos MD Attending Provider Activ e Start: November 26, 2024 Team Status: Active Member Role Status Dates PANCHITO Harris Primary Care Provider Active Start: November 27, 2024 Dr. Radha Goodrich DO Emergency Provider Active Start: November 27, 2024 Dr. Ju Fragoso MD Admit Provider Active St art: November 27, 2024 Dr. Ju Fragoso MD Other Provider Active St art: November 27, 2024 Dr. Artie Palacio MD Attending Provider Active Start: November 27, 2024 Dr. Artie Palacio MD Other Provider Active Star t: November 27, 2024 Team Status: Active Member Role Status Dates PANCHITO Harris Primary Care Provider Active Start: November 28, 2024 Dr. Radha Goodrich DO Emergency Provider Active Start: November 28, 2024 Dr. Ju Fragoso MD Admit Provider Active St art: November 28, 2024 Dr. Ju Fragoso MD Other Provider Active St art: November 28, 2024 Dr. Fiorella Ramos MD Attending Provider Active Start: November 28, 2024 Dr. Fiorella Ramos MD Other Provider Active Star t: November 28, 2024 Dr. Artie Palacio MD Other Provider Active Star t: November 28, 2024 Historic Interpreter Relationship Specialty Start Date End Date Valery Quinteros, PROTOZOOLOGIST.ASSISTANT PORTFOLIO MANAGER [address] [place] [address] PCP - General Family Medicine 05/12/24 Kayla Machado MD [address] [place] [address] Hematology/Oncology 05/09/24 Ryan Alonzo MD [address] [place] [address] Home Care Provider Orthopedics 10/08/24 Ryan Alonzo MD [address] [place] [address] Referring Orthopedics 10/08/24 Historic Interpreter Relationship Specialty Start Date End Date Valery Quinteros, PROTOZOOLOGIST.ASSISTANT PORTFOLIO MANAGER [address] [place] [address] PCP - General Family Medicine 05/12/24 Kayla Machado MD [address] [place] [address] Hematology/Oncology 05/09/24 Ryan Alonzo MD [address] [place] [address] Home Care Provider Orthopedics 10/08/24 Ryan Alonzo MD [address] [place] [address] Referring Orthopedics 10/08/24 Historic Interpreter Relationship Specialty Start Date End Date Valery Quinteros APRN.ASSISTANT PORTFOLIO MANAGER [address] [place] [address] PCP - General Family Medicine 05/12/24 Kayla Machado MD [address] [place] [address] Hematology/Oncology 05/09/24 Ryan Alonzo MD [address] [place] [address] Home Care Provider Orthopedics 10/08/24 Ryan Alonzo MD [address] [place] [address] Referring Orthopedics 10/08/24 Historic Interpreter Relationship Specialty Start Date End Date Valery Quinteros, PROTOZOOLOGIST.ASSISTANT PORTFOLIO MANAGER [address] [place] [address] PCP - General Family Medicine 05/12/24 Kayla Machado MD [address] [place] [address] Hematology/Oncology 05/09/24 Ryan Alonzo MD [address] [place] [address] Home Care Provider Orthopedics 10/08/24 Ryan Alonzo MD [address] [place] [address] Referring Orthopedics 10/08/24 Historic Interpreter Relationship Specialty Start Date End Date Valery Quinteros APRN.ASSISTANT PORTFOLIO MANAGER [address] [place] [address] PCP - General Family Medicine 05/12/24 Kayla Machado MD [address] [place] [address] Hematology/Oncology 05/09/24 Ryan Alonzo MD [address] [place] [address] Home Care Provider Orthopedics 10/08/24 Ryan Alonzo MD [address] [place] [address] Referring Orthopedics 10/08/24 Historic Interpreter Relationship Specialty Start Date End Date Valery Quinteros, PROTOZOOLOGIST.ASSISTANT PORTFOLIO MANAGER [address] [place] [address] PCP - General Family Medicine 05/12/24 Kayla Machado MD [address] [place] [address] Hematology/Oncology 05/09/24 Ryan Alonzo MD [address] [place] [address] Home Care Provider Orthopedics 10/08/24 Ryan Alonzo MD [address] [place] [address] Referring Orthopedics 10/08/24 Historic Interpreter Relationship Specialty Start Date End Date Valery Quinteros PROTOZOOLOGIST.ASSISTANT PORTFOLIO MANAGER [address] [place] [address] PCP - General Family Medicine 05/12/24 Kayla Machado MD [address] [place] [address] Hematology/Oncology 05/09/24 Ryan Alonzo MD [address] [place] [address] Home Care Provider Orthopedics 10/08/24 Ryan Alonzo MD [address] [place] [address] Referring Orthopedics 10/08/24 Historic Interpreter Relationship Specialty Start Date End Date Valery Quinteros PROTOZOOLOGIST.ASSISTANT PORTFOLIO MANAGER [address] [place] [address] PCP - General Family Medicine 05/12/24 Kayla Machado MD [address] [place] [address] Hematology/Oncology 05/09/24 Ryan Alonzo MD [address] [place] [address] Home Care Provider Orthopedics 10/08/24 Ryan Alonzo MD [address] [place] [address] Referring Orthopedics 10/08/24 Historic Interpreter Relationship Specialty Start Date End Date Valery Quinteros APRN.ASSISTANT PORTFOLIO MANAGER [address] [place] [address] PCP - General Family Medicine 05/12/24 Kayla Machado MD [address] [place] [address] Hematology/Oncology 05/09/24 Ryan Alonzo MD [address] [place] [address] Home Care Provider Orthopedics 10/08/24 Ryan Alonzo MD [address] [place] [address] Referring Orthopedics 10/08/24 Team Status: Active Member Role Status Dates PANCHITO Harris Primary Care Provider Active Start: November 08, 2024 Dr. Prasanth Torres MD Attending Provider Active Start: November 08, 2024 Dr. Prasanth Torres MD Referring Provider Active Start: November 08, 2024 Team Status: Active Member Role Status Dates PANCHITO Harris Primary Care Provider Active Start: November 29, 2024 Dr. Ana SILVERMAN MD Attending Provider Active Start: November 29, 2024 Dr. Ana SILVERMAN MD Referring Provider Active Start: November 29, 2024 Team Status: Active Member Role Status Dates PANCHITO Harris Primary Care Provider Active Start: December 05, 2024 Dr. Ana SILVERMAN MD Attending Provider Active Start: December 05, 2024 Dr. Ana SILVERMAN MD Referring Provider Active Start: December 05, 2024 Team Status: Active Member Role Status Dates PANCHITO Harris Primary Care Provider Active Start: December 09, 2024 Dr. Ana SILVERMAN MD Attending Provider Active Start: December 09, 2024 Team Status: Inactive Member Role Status Dates Valery Quinteros , [employer]ER Primary Care Provider Active Start: February 16, 2025 End: February 16, 2025 Ed Physician Provider Emergency Provider Active Start: February 16, 2025 End: February 16, 2025 PRN Active and Recently Administ ered Medications (unrecognized section and content) Medication Order 11/24/2022 11/25/2022 11/26/2022 bupivacaine 0.5 % injection (MARCAINE MDV) SUBCUTANEOUS, X (OR/PROCEDURE) PRN, Starting on 11/26/22 at 1141, Until Merry 11/27/22 at 0303, Intraprocedure 1141 (Given - Provid er: Edith Pressley APRN.CATIA) lidocaine (PF) 20 mg/mL (2 %) injection (XYLOCAINE) SUBCUTANEOUS, X (OR/PROCEDURE) PRN, Starting on Thu11/26/22 at 1139, Until Merry 11/27/22 at 0303, Intraprocedure 1139 (Given - Provid er: Edith Pressley APRN.CATIA) triamcinolone acetonide injection (KeNALog 40) INTRA-ARTICULAR, X (OR/PROCEDURE) PRN, Starting on Thu11/26/22 at 1142, Until Merry 11/27/22 at 0303, Intraprocedure 1142 (Given - Provid er: Edith Pressley APRN.CATIA) Goals (unrecognized section and content) Goals may be documented in a n alternate sectionGoals may be documented in an alternate section FOR RECORDS PERTAINING TO PATIENTS WHO ARE OR HAVE BEEN ENROLLED IN A CHEMICAL DEPENDENCY/SUBSTANCEABUSE PROGRAM, SOME INFORMATION MAY BE OMITTED. This clinical summary was aggregated from multiple sources. Caution should be exercised in using it in the provision of clinical care. This summary normalizes information from multiple sources, and as a consequence, information in this document may materially change the coding, format and clinical context of patient data. In addition, data may be omitted in some cases. CLINICAL DECISIONS SHOULD BE BASED ON THE PRIMARY CLINICAL RECORDS. [employer] [facility]. provides no warranty or guarantee of the accuracy or completeness of information in this document.
== END 2025-02-16 23:35 | disposition home or self-care (01) ==
PROVIDERS: Emergency Provider Surgery; PCP Clinical Nurse Specialist Adult Health; Visit Provider Surgery
DX: S80.811A Abrasion, right lower leg, initial encounter (principal); I48.91 Unspecified atrial fibrillation; W18.09XA Striking against other object with subsequent fall, initial encounter; I10 Essential (primary) hypertension; E78.5 Hyperlipidemia, unspecified; I25.10 Atherosclerotic heart disease of native coronary artery without angina pectoris; K21.9 Gastro-esophageal reflux disease without esophagitis; I25.2 Old myocardial infarction; Z79.01 Long term (current) use of anticoagulants; Z79.84 Long term (current) use of oral hypoglycemic drugs; Z87.891 Personal history of nicotine dependence
CPT/HCPCS: 99284

== ENCOUNTER 2025-03-06 07:03 | Emergency (ER) | payer MEDICARE, SELFPAY ==
[2025-03-06 07:04] VITALS: BP 131/65; PULSE 79; RESP 18; TEMP 36.4; O2SAT 95; BMI 27.6
--- NOTE | 2025-03-06 07:21 | ED.VIS.FALL ---
HPI HPI - Fall History of Present Illness Chief Complaint: Fall Informant: patient and EMS Narrative Narrative: 84-year-old male living at home states he had an accidental fall last night falling against a coffee table versus his left low back. He is having severe pain. States it was not hurting him as bad last night. He denies any other pain or injury. He states he had a right hip replacement within the last year, and he has bumped his right jesus and developed a sore that he has been dressing and undergoing treatments for. He states it is getting better. There is a Band-Aid on it. He states there is a bruise on the left side of his neck from his fall last night that he knew about because his told him but he states he is not having any pain there or headache. [facility] Medical History Elevated troponin Anticoagulated Kidney disease GERD (gastroesophageal reflux disease) Former tobacco use HLD (hyperlipidemia) CAD (coronary artery disease) History of chronic hypertension Right leg weakness Myocardial infarct Hypertension Vertigo Home Medications ?Medication ?Instructions ?Recorded ?Last Taken ?Type isosorbide mononitrate 30 mg 15 mg PO DAILY HEART 08/23/19 06/25/21 History tablet,extended release 24 hr gabapentin 400 mg capsule 400 mg PO BID NERVE PAIN 06/25/21 06/25/21 History ezetimibe 10 mg tablet 10 mg PO DAILY CHOLESTROL 09/24/23 Unknown History apixaban 5 mg tablet (Eliquis) 5 mg PO BID CEREBRAL INFARCTION 09/26/23 Unknown Rx #60 tabs acetaminophen 500 mg capsule 1,000 mg PO Q8H PRN fever or pain 11/07/24 Unknown History acetaminophen 650 mg rectal 650 mg KS Q4H PRN fever or pain 11/07/24 Unknown History suppository aluminum-magnesium hydroxide 200 30 ml PO Q4H PRN dyspepsia 11/07/24 Unknown History mg-200 mg/5 mL oral suspension (MAG-AL) amiodarone 200 mg tablet 200 mg PO DAILY AFIB 11/07/24 Unknown History ascorbic acid (vitamin C) 500 mg 500 mg PO BID SUPPLEMENT 11/07/24 Unknown History capsule bisacodyl 10 mg rectal suppository 10 mg KS DAILY PRN constipation 11/07/24 Unknown History docusate sodium 100 mg capsule 100 mg PO DAILY CONSTIPATION 11/07/24 Unknown History ferrous sulfate 325 mg (65 mg 325 mg PO DAILY ANEMIA 11/07/24 Unknown History iron) tablet (FeroSul) magnesium hydroxide 400 mg/5 mL 30 ml PO DAILY PRN constipation 11/07/24 Unknown History oral suspension (Milk of Magnesia) metformin 500 mg tablet,extended 500 mg PO DAILY DIABETES 11/07/24 Unknown History release 24 hr ondansetron 4 mg disintegrating 4 mg PO Q6H PRN nausea and vomiting 11/07/24 Unknown History tablet polyethylene glycol 3350 17 17 g PO DAILY 11/07/24 Unknown History gram/dose oral powder (ClearLax) sodium phosphates 19 gram-7 118 ml KS DAILY PRN constipation 11/07/24 Unknown History gram/118 mL enema (Fleet Enema) tamsulosin 0.4 mg capsule 0.4 mg PO QHS 11/07/24 Unknown History furosemide 40 mg tablet 40 mg PO DAILY EDEMA 30 days #0 11/10/24 Unknown Rx tabs pantoprazole 40 mg tablet,delayed 40 mg PO BID HEARTBURN 30 days #60 11/10/24 Unknown Rx release (Protonix) tabs simvastatin 20 mg tablet 20 mg PO QHS 11/25/24 Unknown History trazodone 150 mg tablet 75 mg PO QHS INSOMNIA 11/25/24 Unknown History metoprolol succinate 50 mg 25 mg (1/2 x 50 mg) PO DAILY 11/28/24 Unknown Rx tablet,extended release 24 hr ANGINA #30 tabs oxycodone-acetaminophen 5 mg-325 1 tab PO Q6H PRN PRN Pain 3 days 03/06/25 Unknown Rx mg tablet #12 TABLETS Allergy/AdvReac Type Severity Reaction Status Date / Time Sulfa (Sulfonamide Allergy Unknown Verified 03/06/25 07:05 Antibiotics) Family History Mother Heart disease Father Heart disease Surgical History Status post arthroscopic knee surgery S/P bilateral foot surgery S/p bilateral carpal tunnel release S/P tonsillectomy and adenoidectomy S/P bilateral cataract extraction S/P CABG x 3 Stented coronary artery H/O right heart catheterization Social History household members: spouse Smoking Status: Former smoker how long ago did patient quit smoking: Quit when he was 44 y/o, 1/2 ppd since 10 years old. alcohol intake: never substance use type: does not use ROS ROS ED Review of Systems ROS Unobtainable: other Details: Somewhat limited due to very hard of hearing Constitutional Constitutional ED: Denies chills or fever(s) Eyes Eyes: Denies change in vision ENT ENT ED: Denies ear pain, epistaxis or facial pain Cardiovascular Cardiovascular: Denies chest pain or palpitations Respiratory/Chest Respiratory/Chest: Reports cough; Denies dyspnea Gastrointestinal Gastrointestinal: Denies abdominal pain, diarrhea, melena, nausea or vomiting Genitourinary Genitourinary ED: Denies dysuria or hematuria Musculoskeletal Musculoskeletal: Reports back pain; Denies extremity pain or neck pain Integumentary Reports wounds; Denies abscess, Abrasions, laceration or rash Neurologic Neurologic: Denies confusion, headache(s), paresthesias or weakness Hematologic/Lymphatic Hematologic/Lymphatic: Reports easy bleeding and easy bruising EXAM Physical Exam Const Vital Signs: 03/06/25 07:04 03/06/25 07:44 03/06/25 09:07 Temperature 97.5 F L Temperature Source Temporal Pulse Rate 79 Respiratory Rate 18 Respiratory Effort Normal Non-Labored Blood Pressure 131/65 H 115/55 L Blood Pressure Mean 87 75 Pulse Ox 95 Oxygen Delivery Method Room Air Positive well nourished and well developed Constitutional Narrative: Mild painful distress. Cooperative. Keenly alert. General Appearance ED: well developed HEENT Reports TM's clear and nasal mucous membranes and turbinates normal atraumatic Face and Sinus: Negative for facial tenderness Tympanic Membrane ED: Yes TM's clear Eyes PERRL and EOMs intact bilaterally Visual Acuity: other Other Details: no entrapment or pain with extraocular movements Neck full ROM and supple Neck Narrative: Small contusion left lateral neck, there is no hematoma, pulsatile mass, tenderness, or carotid bruit. There is no bruit on the other side either. He has full range of motion of the neck and there is no bony tenderness posteriorly, the area of the contusion is left anterior lateral in the area of soft tissues without any objective swelling or stridor. General: Negative for tenderness Chest Wall inspection of chest normal and palpation of chest normal Chest: symmetrical chest wall rise; Negative for crepitus or tenderness Resp normal respiratory effort and clear to auscultation bilaterally Percussion: other equal BS bilat Cardio Rate: Negative for tachycardic Rhythm: abnormal rhythm irregularly irregular GI normal to inspection, nondistended, normoactive bowel sounds, soft to palpation and non-tender Back/Spine Back/Spine Narrative: Limited range of motion due to pain, he is able to twist/turn to the right, there is a large ecchymotic/purpuric area in the left flank/low back. There is no ecchymosis around the umbilicus or abdomen. There is no spinal bony tenderness. There is no crepitance in any of the ribs although the exam on the left lower ribs is limited due to the amount of swelling and ecchymosis. Cervical Spine: Negative for cervical spine tenderness Thoracic Spine / Upper Back: Negative for thoracic spinal tenderness Lumbar Spine / Lower Back: Negative for lumbar spinal tenderness Extremity normal to inspection and full ROM Extremity Narrative: Full range of motion of both hips without difficulty or limitation. General Extremety ED: Negative for tenderness Neuro oriented x3, CN's II-XII intact bilaterally, moves all extremities, no focal motor deficits and no sensory deficits noted Sarah Coma Scale: document GCS findings Spontaneous Obeys Commands Oriented 15 Sensorium / Orientation: awake and alert Psych mental status grossly normal and thought process normal Skin Skin Narrative: Small superficial wounds on both anterior shins with bandages on them, no discharge abscess or sign of infection. Little bit of erythema around them that are nontender. Lesions: no lesions Rashes: no rashes MDM MDM MDM Narrative Medical decision making narrative: This patient is on Eliquis he is not sure why but he has a history of A-fib in the chart. He has a significant amount of ecchymosis in the left low back/flank, most of this is in the lumbar soft tissue area may include the 10th or 11th ribs, but exam is limited due to the swelling and limited range of motion. I will obtain a CT to evaluate for the possibility of retroperitoneal hemorrhage. Compared with around 3 months ago, the patient's hemoglobin is down less than 1 g to 8.3, and his chronic kidney disease is relatively stable. Obtained a screening chest x-ray which showed bilateral pleural effusions and some vascular congestion on my interpretation as confirmed by radiology. Patient denies being dyspneic recently. The CT of the abdomen/pelvis on my interpretation does not appear to show retroperitoneal hemorrhage, radiology in agreement adding some incidental findings that are not related to his fall. I agree with the radiology interpretation. When I reevaluated the patient after pain medication, he is doing better, still having pain with movement, and he was in quite a bit of pain when he first arrived with any little movement. There is nothing on the results that medically requires admission, but given his age and difficulty moving around and possibly performing ADLs I discussed admission and offered it, with or without evaluation for rehab. The patient is of sound mind and declines this and states he wants to go home. He declares himself DNR, states that if it is his time to then he is okay with that. He is aware of fluid collections in his chest and states he is on Lasix. He also states that he put a heating pad on himself overnight where he had the injury occur, and I think this may have exacerbated the bleeding and pain since he is anticoagulated. I recommended against a heating pad for at least the first 3 days or so, using ice instead. He wants a prescription for some analgesics, he is already on a stool softener which I recommended, and he states he wants to go home so we can help care for his . We discussed reasons to return, even if he just changes his mind because he is in too much pain he is comfortable with that plan. Lab Data Attestation: I reviewed the patient's lab results. Labs: Laboratory Results - last 24 hr 03/06/25 05:50 WBC 4.5 RBC 2.89 L Hgb 8.3 L Hct 27.9 L MCV 96.5 H MCH 28.7 MCHC 29.7 L RDW Std Deviation 57.9 H RDW Coeff of Jaqueline 16.5 H Plt Count 104 L MPV 13.9 H Immature Gran % (Auto) 0.700 Neut % (Auto) 70.8 H Lymph % (Auto) 22.8 Kidder % (Auto) 4.4 Eos % (Auto) 0.9 Baso % (Auto) 0.4 Absolute Neuts (auto) 3.2 Absolute Lymphs (auto) 1.03 Platelet Estimate SLT DEC Plt Morphology Comment LARGE Sodium 139 Potassium 3.8 Chloride 102 Carbon Dioxide 22.5 Anion Gap 14 BUN 22 H Creatinine 1.73 H Estim Creat Clear Calc 31.07 L Est GFR (MDRD) Non-Af 38 L BUN/Creatinine Ratio 12.4 Glucose 101 H Calcium 9.3 Radiography Diagnostic Testing: Clinical Impression(s) from Imaging Studies Abdomen/Pelvis CT 03/06/25 07:50 IMPRESSION: Bilateral pleural effusions with bibasilar compressive atelectasis. Mild central intrahepatic biliary ductal dilatation. Borderline splenomegaly. Bilateral renal atrophy. Left renal cysts. Reading Location: [facility]1 Chest X-Ray 03/06/25 07:55 IMPRESSION: Mild cardiomegaly. Vascular congestion and CHF. Reading Location: [facility] Discharge Plan Triage Chief Complaint: Fall ED Provider: Cristiano Barajas Dx/Rx/DC Orders Clinical Impression: Contusion of back, Contusion of neck, Bilateral pleural effusion, Fall from slip, trip, or stumble Instructions: ED Back Contusion Prescriptions: New oxycodone-acetaminophen 5-325 mg tablet 1 tab PO Q6H PRN PRN (Reason: Pain) 3 Days Qty: 12 0RF No Action isosorbide mononitrate 30 MG tablet extended release 24 hr 15 mg PO DAILY gabapentin 400 mg capsule 400 mg PO BID ezetimibe 10 mg tablet 10 mg PO DAILY Eliquis 5 mg tablet 5 mg PO BID Qty: 60 0RF tamsulosin 0.4 mg capsule 0.4 mg PO QHS metformin 500 mg tablet extended release 24 hr 500 mg PO DAILY acetaminophen 500 mg capsule 1,000 mg PO Q8H PRN (Reason: fever or pain) acetaminophen 650 mg suppository 650 mg KS Q4H PRN (Reason: fever or pain) amiodarone 200 mg tablet 200 mg PO DAILY MAG-AL 200-200 mg/5 mL suspension 30 ml PO Q4H PRN (Reason: dyspepsia) ascorbic acid (vitamin C) 500 mg capsule 500 mg PO BID bisacodyl 10 mg suppository 10 mg KS DAILY PRN (Reason: constipation) docusate sodium 100 mg capsule 100 mg PO DAILY ferrous sulfate [FeroSul] 325 mg (65 mg iron) tablet 325 mg PO DAILY Fleet Enema 19-7 gram/118 mL enema 118 ml KS DAILY PRN (Reason: constipation) magnesium hydroxide [Milk of Magnesia] 400 mg/5 mL suspension 30 ml PO DAILY PRN (Reason: constipation) polyethylene glycol 3350 [ClearLax] 17 gram/dose powder 17 g PO DAILY ondansetron 4 mg tablet,disintegrating 4 mg PO Q6H PRN (Reason: nausea and vomiting) furosemide 40 mg Tablet 40 mg PO DAILY 30 Days Qty: 0 0RF pantoprazole [Protonix] 40 mg tablet,delayed release (DR/EC) 40 mg PO BID 30 Days Qty: 60 0RF simvastatin 20 mg tablet 20 mg PO QHS trazodone 150 mg tablet 75 mg PO QHS metoprolol succinate 50 mg Tablet Extended Release 24 Hr 25 mg PO DAILY Qty: 30 0RF Primary Care Provider: Valery Quinteros Referrals: Valery Quinteros, HAND STAMPER [Primary Care Provider] - 3-5 Days if not improving Activity Restrictions/Additional Instructions: Avoid putting heat on injured areas when you are on a blood thinner for at least the first 3 or 4 days. Use ice instead, then you may use heat later to help break up the bruising if desired. Print Language: Chinese Disposition Disposition: Home, Self Care
[2025-03-06] MEDS: 0.9% Normal Saline (500mL Bag) 500 ML 999 ML IV (07:35)
[2025-03-06] MEDS: fentaNYL 100 MCG/2 ML Ampul 50 MCG IV (07:35)
--- NOTE | 2025-03-06 07:50 | CT_ITS ---
PROCEDURE: ABDOMEN/PELVIS W IV CONT ONLY 03/06/2025 REASON FOR EXAM: FALL, LEFT FLANK PAIN/TRAUMA Bruising overlying the left flank. TECHNIQUE: ABDOMEN/PELVIS W IV CONT ONLY Coronal and Sagittal reconstruction series were provided. CONTRAST: Isovue-300 VOLUME: 100 mL One or more dose reduction techniques were used (e.g., Automated exposure control, adjustment of the mA and/or kV according to patient size, use of iterative reconstruction technique. RADIATION DOSE SUMMARY: CTDlvol: 18.3 mGy DLP: 1151.34 mGycm COMPARISON: None FINDINGS: Lung bases: Small bilateral pleural effusions with bibasilar compressive atelectasis. Coronary artery calcification. Liver: Mild degree of dilated intrahepatic biliary ducts. Gallbladder: Questionable sludge along the dependent portion of the gallbladder lumen. Spleen: Borderline splenomegaly. Pancreas: Diffuse fatty atrophy. Adrenals: Unremarkable Kidneys: There is a 5.2 cm 4.9 cm cyst in the upper pole of the left kidney. Subcentimeter cyst in the right kidney. There is evidence of bilateral renal atrophy. Bladder: Unremarkable Central prostatic calcifications. Bowel: Colonic diverticulosis without diverticulitis. Appendix: Unremarkable Lymph nodes: Unremarkable. Vasculature: Mild diffuse atherosclerotic calcifications are noted. Peritoneum / Retroperitoneum: No retroperitoneal lymphadenopathy. Bones: Degenerative changes of the spine. Status post right total hip replacement. CT/Abdomen/Pelvis W IV Cont ONLY IMPRESSION: Bilateral pleural effusions with bibasilar compressive atelectasis. Mild central intrahepatic biliary ductal dilatation. Borderline splenomegaly. Bilateral renal atrophy. Left renal cysts. Reading Location: [facility]-
--- NOTE | 2025-03-06 07:55 | RAD_ITS ---
PROCEDURE: CHEST 1 VIEW (PORTABLE) 03/06/2025 REASON FOR EXAM: FALL TECHNIQUE: Frontal view of the chest. COMPARISON: Prior study dated November 25, 2024. FINDINGS: Hardware: EKG electrodes are seen. Heart: Mild cardiomegaly. Status post CABG. Lungs: Vascular congestion and CHF. Bones: The bones are unremarkable. Other: RAD/Chest 1 View (Portable) IMPRESSION: Mild cardiomegaly. Vascular congestion and CHF. Reading Location: [place] [id number]
[2025-03-06 07:56] LABS: Anion Gap 14 (5-15); BUN 22 mg/dL (4-19); BUN/Creat Ratio 12.4 RATIO (10-20); Calcium,Total 9.3 mg/dL (7.6-11.0); Carbon Dioxide 22.5 mmol/L (21.0-32.0); Chloride 102 mmol/L (98-108); Estimated Creatinine Clearance 31.07 ml/min (50-250); Glucose 101 mg/dL (70-99); Potassium 3.8 mmol/L (3.3-5.1)
[2025-03-06 08:48] LABS: Hemoglobin 8.3 g/dL (13.0-16.5); Red Blood Count 2.89 M/mm3 (4.6-6.2); White Blood Count 4.5 K/mm3 (4.4-11.0)
[2025-03-06 08:49] LABS: Differential Indicated SCAN CRITERIA MET; Hematocrit 27.9 % (40-54); Immature Granulocytes Count 0.030 X10^3/uL (0.0-0.0); Mean Corp Hgb Conc 29.7 g/dL (32-36); Mean Corpuscular Volume 96.5 fL (80-94); Mean Platelet Vol. 13.9 fl (6.2-12.0); Platelet Count 104 K/mm3 (150-450); RBC Distribution Width CV 16.5 % (11.6-14.6); RBC Distribution Width SD 57.9 fl (35.1-43.9)
[2025-03-06 09:07] VITALS: BP 115/55
[2025-03-06 09:29] VITALS: BP 115/55; PULSE 79; RESP 18; TEMP 36.4; O2SAT 95
== END 2025-03-06 09:30 | disposition home or self-care (01) ==
PROVIDERS: Emergency Provider Emergency Medicine; PCP Clinical Nurse Specialist Adult Health; Visit Provider Emergency Medicine
DX: S30.0XXA Contusion of lower back and pelvis, initial encounter (principal); I13.0 Hypertensive heart and chronic kidney disease with heart failure and stage 1 through stage 4 chronic kidney disease, or unspecified chronic kidney disease; S10.83XA Contusion of other specified part of neck, initial encounter; W08.XXXA Fall from other furniture, initial encounter; R19.00 Intra-abdominal and pelvic swelling, mass and lump, unspecified site; R05.9 Cough, unspecified; N18.9 Chronic kidney disease, unspecified; E78.5 Hyperlipidemia, unspecified; J90 Pleural effusion, not elsewhere classified; I25.10 Atherosclerotic heart disease of native coronary artery without angina pectoris; W01.190A Fall on same level from slipping, tripping and stumbling with subsequent striking against furniture, initial encounter; I25.2 Old myocardial infarction; Z66 Do not resuscitate; Z79.01 Long term (current) use of anticoagulants; Z79.84 Long term (current) use of oral hypoglycemic drugs; Z79.899 Other long term (current) drug therapy; Z87.891 Personal history of nicotine dependence; Z96.641 Presence of right artificial hip joint
CPT/HCPCS: 71045; 74177; 80048; 85025; 96361; 96374; 96375; 99285; Q9967; J2405

== ENCOUNTER 2025-04-06 07:45 | Inpatient (IN) | payer MEDICARE, SELFPAY ==
[2025-04-06] VITALS (25 sets, daily range): BP systolic 102–151; BP diastolic 42–80; PULSE 50–67; RESP 11–20; TEMP 36.2–36.6; O2SAT 93–100; BMI 27.6; BMI 26.7
--- NOTE | 2025-04-06 07:47 | RAD_ITS ---
PROCEDURE: CHEST 1 VIEW (PORTABLE) 04/06/2025 REASON FOR EXAM: BIBASILAR RALES TECHNIQUE: Frontal view of the chest. COMPARISON: None FINDINGS: Hardware: EKG electrodes are seen. Heart: Cardiomegaly. Prior CABG. Lungs: Vascular congestion and CHF. Bones: Degenerative changes are identified within the thoracic spine. Other: RAD/Chest 1 View (Portable) IMPRESSION: Cardiomegaly. CHF. Reading Location: [place] [id number]
--- NOTE | 2025-04-06 08:01 | EX.ED.DYSGE1 ---
HPI History of Present Illness Chief Complaint: Syncope Detail of Chief Complaint: Awoke with chest pain and lightheadedness Informant: patient Onset/Context/Timing Onset: Today Context: Sudden Onset Timing: Intermittent Quality: Patient had chest pressure alleviated after second nitro Location: Midsternal Current Severity: Gone Maximum Severity: Moderate Worsened by: Not applicable Relieved by: Second nitroglycerin Associated Symptoms Associated Symptoms: Lightheadedness, diaphoresis Narrative Narrative: Patient is 84-year-old male. He awoke this morning with chest pressure. He had no radiation. He states he did not feel well. He took a nitro. The first nitro had no effect. The second nitro alleviated his discomfort. He states he is feeling much better than he did. When squad arrived he was awake but not alert. He would answer questions. He appeared pale. Heart rate was 24. EKG was sent to the ER and appears to be complete heart block. He also has evidence of wide QRS complex. They informant the called because he was very responsive. They were unable to get any other history because his has dementia. Patient does answer questions. He is awake. He states he awoke this morning with chest pressure and took 2 nitro. He states he feels much better. The chest pressure is gone now. He is on Eliquis. That was not listed on his medication. He is taking metoprolol and amiodarone. Review of records indicate he has history of atrial fibrillation. He also has history coronary disease status post multivessel bypass 40 years ago. He has no stents. Based on medication he also has history of hypertension. And presumed GERD. Prior similar symptoms: No Recent Illness/Hospitalization: No PFSH PFS Medical History Elevated troponin Anticoagulated Kidney disease GERD (gastroesophageal reflux disease) Former tobacco use HLD (hyperlipidemia) CAD (coronary artery disease) History of chronic hypertension Right leg weakness Myocardial infarct Hypertension Vertigo Home Medications ?Medication ?Instructions ?Recorded ?Last Taken ?Type isosorbide mononitrate 30 mg 15 mg PO DAILY HEART 08/23/19 06/25/21 History tablet,extended release 24 hr gabapentin 400 mg capsule 400 mg PO BID NERVE PAIN 06/25/21 06/25/21 History ezetimibe 10 mg tablet 10 mg PO DAILY CHOLESTROL 09/24/23 Unknown History apixaban 5 mg tablet (Eliquis) 5 mg PO BID CEREBRAL INFARCTION 09/26/23 Unknown Rx #60 tabs amiodarone 200 mg tablet 200 mg PO DAILY AFIB 11/07/24 Unknown History ascorbic acid (vitamin C) 500 mg 500 mg PO BID SUPPLEMENT 11/07/24 Unknown History capsule bisacodyl 10 mg rectal suppository 10 mg MD DAILY PRN constipation 11/07/24 Unknown History docusate sodium 100 mg capsule 100 mg PO DAILY CONSTIPATION 11/07/24 Unknown History ferrous sulfate 325 mg (65 mg 325 mg PO DAILY ANEMIA 11/07/24 Unknown History iron) tablet (FeroSul) magnesium hydroxide 400 mg/5 mL 30 ml PO DAILY PRN constipation 11/07/24 Unknown History oral suspension (Milk of Magnesia) metformin 500 mg tablet,extended 500 mg PO DAILY DIABETES 11/07/24 Unknown History release 24 hr ondansetron 4 mg disintegrating 4 mg PO Q6H PRN nausea and vomiting 11/07/24 Unknown History tablet polyethylene glycol 3350 17 17 g PO DAILY 11/07/24 Unknown History gram/dose oral powder (ClearLax) tamsulosin 0.4 mg capsule 0.4 mg PO QHS 11/07/24 Unknown History furosemide 40 mg tablet 40 mg PO DAILY EDEMA 30 days #0 11/10/24 Unknown Rx tabs pantoprazole 40 mg tablet,delayed 40 mg PO BID HEARTBURN 30 days #60 11/10/24 Unknown Rx release (Protonix) tabs simvastatin 20 mg tablet 20 mg PO QHS 11/25/24 Unknown History trazodone 150 mg tablet 75 mg PO QHS INSOMNIA 11/25/24 Unknown History metoprolol succinate 50 mg 25 mg (1/2 x 50 mg) PO DAILY 11/28/24 Unknown Rx tablet,extended release 24 hr ANGINA #30 tabs cyclobenzaprine 5 mg tablet 5 mg PO BID 04/06/25 Unknown History diclofenac sodium 1 % topical gel 2 ea topical BID 04/06/25 Unknown History mirtazapine 7.5 mg tablet 7.5 mg PO QHS 04/06/25 Unknown History Allergy/AdvReac Type Severity Reaction Status Date / Time Sulfa (Sulfonamide Allergy Unknown Verified 03/06/25 07:05 Antibiotics) Family History Mother Heart disease Father Heart disease Surgical History Status post arthroscopic knee surgery S/P bilateral foot surgery S/p bilateral carpal tunnel release S/P tonsillectomy and adenoidectomy S/P bilateral cataract extraction S/P CABG x 3 Stented coronary artery H/O right heart catheterization Social History household members: spouse Smoking Status: Former smoker how long ago did patient quit smoking: Quit when he was 44 y/o, 1/2 ppd since 10 years old. alcohol intake: never substance use type: does not use ROS ROS ED Constitutional Constitutional ED: Denies chills, fever(s) or sweats Eyes Eyes: Denies blurry vision or change in vision ENT ENT ED: Denies ear pain or rhinorrhea Cardiovascular Cardiovascular: Reports chest pain; Denies palpitations, paroxysmal nocturnal dyspnea or racing heartbeat Respiratory/Chest Respiratory/Chest: Denies cough, dyspnea, dyspnea on exertion or paroxysmal nocturnal dyspnea Gastrointestinal Gastrointestinal: Reports nausea; Denies abdominal pain or vomiting Genitourinary Genitourinary ED: Denies dysuria, hematuria or urinary frequency Musculoskeletal Musculoskeletal: Denies arthralgias, back pain or myalgias Integumentary Denies rash Neurologic Neurologic: Reports weakness; Denies headache(s) Endocrine Endocrinology: Denies cold intolerance EXAM Physical Exam Const Vital Signs: 04/06/25 07:49 04/06/25 08:15 04/06/25 08:30 Temperature 97.2 F L Temperature Source Oral Pulse Rate 53 L 53 L 52 L Respiratory Rate 20 H 14 14 Blood Pressure 116/62 115/50 L Blood Pressure Mean 80 71 Pulse Ox 100 98 100 Oxygen Delivery Method Nasal Cannula 04/06/25 09:00 Temperature Temperature Source Pulse Rate 50 L Respiratory Rate 11 L Blood Pressure 107/49 L Blood Pressure Mean 68 Pulse Ox 100 Oxygen Delivery Method Positive well nourished and well developed Constitutional Narrative: Patient not alert. He will respond to verbal stimuli. He obeys commands. He answers questions appropriately. He appears pale. General Appearance ED: well developed, NAD and pallor HEENT Reports dry mucous membranes HEENT Narrative: Head is atraumatic, cephalic. Ears normal. Nares patent. Posterior pharynx is normal. Mouth ED: Yes dry mucous membranes Mouth: dry mucous membranes Eyes PERRL and EOMs intact bilaterally Eyes Narrative: Conjunctive are slightly pink. General Eye ED: Negative for pale conjunctiva or scleral icterus Neck no lymphadenopathy, supple and no JVD Chest Wall inspection of chest normal and palpation of chest normal Chest Narrative: Patient has a median sternotomy scar noted from his bypass surgery. Resp normal respiratory effort and No clear to auscultation bilaterally Auscultation: rales bilateral base Cardio regular rhythm, S1 normal heart sound, S2 normal heart sound and no murmurs Rate: bradycardia GI normal to inspection, nondistended, normoactive bowel sounds, non-tender, non-distended and no masses; Negative for hepatosplenomegaly Back/Spine no CVA tenderness Extremity Negative for normal to inspection Extremity Narrative: Patient with stigmata of peripheral arterial disease. He has thickened toenails, absence of hair on his toes and legs. Pulses were not palpable. He has a wound anterior distal right leg with some slight erythema. There is serous drainage. There is no purulent drainage. There is no lymphangitis or induration. There is no popliteal lymphadenopathy. Neuro oriented x3, CN's II-XII intact bilaterally and no sensory deficits noted Motor Exam: strength 5/5 throughout Psych mental status grossly normal Skin No no rashes or lesions noted, No no wounds and No skin turgor normal General Skin Exam: pallor; Negative for elasticity normal or jaundice MDM MDM MDM Narrative Medical decision making narrative: Patient was placed in room 2. Patient has pacer pads on. His blood pressure is satisfactory. His heart rate has improved to mid 50s and is a sinus rhythm with a first-degree AV block and a right bundle branch block and left anterior fascicular block. The first-degree block is slightly worse than prior. The right bundle branch block and left anterior fascicular block are old. The patient complained of chest pain that was alleviated by nitroglycerin has not taken nitroglycerin in 40 years will obtain cardiac workup. Cardiology was contacted to determine availability if pacemaker was needed based on prehospital EKG. Nurses were asked to obtain the transvenous pacemaking kit. Patient will require admission. Squad informing that he had what appeared to be nonsustained V. tach. With history of atrial fibrillation this may have represented Rhonda's phenomenon versus nonsustained V. tach. Lab Data Attestation: I reviewed the patient's lab results. Lab results narrative: Patient is anemic. His H&H is higher than it was compared to March 06, 2025. Comprehensive metabolic panel is remarkable for a high anion gap with a CO2 of 19 and gap of 18. Creatinine is 2.01. Estimated GFR is 32. Glucose is elevated 139. Lactate is elevated 3.9. BNP is 6591. Once first troponin is returned we will contact hospitalist for admission. Troponin is elevated 46. Patient had prior elevated troponins. This may be due to his chronic kidney disease. Labs: Laboratory Results - last 24 hr 04/06/25 07:47 WBC 3.9 L RBC 3.57 L Hgb 10.2 L Hct 33.9 L MCV 95.0 H MCH 28.6 MCHC 30.1 L RDW Std Deviation 49.2 H RDW Coeff of Jaqueline 14.1 Plt Count 63 L MPV 13.3 H Immature Gran % (Auto) 0.800 Neut % (Auto) 66.3 Lymph % (Auto) 27.8 Graves % (Auto) 2.8 Baso % (Auto) 1.5 H Absolute Neuts (auto) 2.6 Absolute Lymphs (auto) 1.08 Differential Comment SCANNED Platelet Estimate MKD DEC Sodium 141 Potassium 3.7 Chloride 104 Carbon Dioxide 19.1 L Anion Gap 18 H BUN 16 Creatinine 2.01 H Estim Creat Clear Calc 26.77 L Est GFR (MDRD) Non-Af 32 L BUN/Creatinine Ratio 8.0 L Glucose 179 H Lactic Acid 3.9 H* Calcium 9.0 Total Bilirubin 0.34 AST 19 ALT 9 Alkaline Phosphatase 89 Troponin T High Sens 46 H D NT pro BNP II 6591 H Total Protein 6.3 Albumin 3.9 Globulin 2.3 Albumin/Globulin Ratio 1.7 ABG Data ABG results: ABG 04/06/25 08:11 Specimen Type ART Sample Site R Radial pH 7.36 Bicarbonate Actual 22.2 Total CO2 23 Base Excess -3 L O2 Saturation 98 O2 % 6.0 ABG pCO2 39.5 ABG pO2 109 H Anthony Test Positive O2 Delivery Device Cannula Vent Mode Not entered Radiography Chest X-Ray - ED: 1 View (Single view portable chest x-ray reveals limited supportive volume. Patient does have evidence of cephalization. There are small effusion left side. Patient has evidence of cardiomegaly. Clinically patient is in heart failure. Will treat with furosemide since he appears fluid overloaded. He is) Diagnostic Testing: Clinical Impression(s) from Imaging Studies Chest X-Ray 04/06/25 07:47 IMPRESSION: Cardiomegaly. CHF. Reading Location: [place] [id number] Management Discussion w/another healthcare provider: Hospitalist (Spoke with Dr. Hatch. He would like patient admitted to ICU. Order was placed. He was informed that Dr. Schwarz recommended holding the metoprolol and amiodarone.) and Brush Material Preparer (Dr. Powell was notified after reviewing the EMS EKG. He was available if pacemaker was needed. Based on conversation will hold metoprolol and amiodarone.) Critical Care Time Critical Care Time: Yes Critical care time (excluding procedures): 30-74 minutes (31), Including time spent: (History, physical, documentation, review of prior records, laboratory results and EKG), Discussing w/Consultants (Cardiology and hospitalist), Arranging Admission or Transfer and Performing Direct Patient Care at Bedside (Placement of external pacer pads.) Discharge Plan Dx/Rx/DC Orders Clinical Impression: Third degree heart block by electrocardiogram, Sinus bradycardia, First degree heart block, Right bundle branch block, Anticoagulant long-term use, Chest pressure, New onset of congestive heart failure, Leg wound, right, Peripheral artery disease, Acidosis, lactic Disposition Disposition: Acute Care [facility]
[2025-04-06 08:17] LABS: Allen Test Positive; Base Excess -3 mmol/L (-2 to +2); FI02 6.0; PO2 109 mmHG (75-100); SITE R Radial; SO2 98 % (95-99)
[2025-04-06 08:27] LABS: Red Blood Count 3.57 M/mm3 (4.6-6.2); White Blood Count 3.9 K/mm3 (4.4-11.0)
[2025-04-06 08:28] LABS: Differential Indicated SCAN CRITERIA MET; Hematocrit 33.9 % (40-54); Hemoglobin 10.2 g/dL (13.0-16.5); Immature Granulocytes Count 0.030 X10^3/uL (0.0-0.0); Mean Corp Hgb Conc 30.1 g/dL (32-36); Mean Corpuscular Volume 95.0 fL (80-94); Mean Platelet Vol. 13.3 fl (6.2-12.0); Platelet Count 63 K/mm3 (150-450); RBC Distribution Width CV 14.1 % (11.6-14.6); RBC Distribution Width SD 49.2 fl (35.1-43.9)
[2025-04-06 08:29] LABS: Differential Comment SCANNED
[2025-04-06 08:38] LABS: AST(SGOT) 19 U/L (<=37); Alanine Aminotransfer ALT/SGPT 9 U/L (<=46); Albumin, Serum 3.9 g/dL (3.4-4.8); Alkaline Phosphatase 89 U/L (40-129); Anion Gap 18 (5-15); BUN 16 mg/dL (4-19); BUN/Creat Ratio 8.0 RATIO (10-20); Calcium,Total 9.0 mg/dL (7.6-11.0); Carbon Dioxide 19.1 mmol/L (21.0-32.0); Chloride 104 mmol/L (98-108); Estimated Creatinine Clearance 26.77 ml/min (50-250); Globulin 2.3 g/dL (2.2-4.2); Glucose 179 mg/dL (70-99); Potassium 3.7 mmol/L (3.3-5.1); Pro- Brain NATRIURETIC PEPTIDE 6591 pg/mL (<=1800)
[2025-04-06 09:16] LABS: Troponin T High Sensitivity 46 ng/L (<=22)
--- NOTE | 2025-04-06 10:00 | ECHOD_ITS ---
Reason For Study Reason For Study: SOB, Bradycardia, Suspicion of Complete Heart Block Procedure This was a 2D Doppler, Color Flow transthoracic echocardiogram. Exam performed portable in ED. Left Ventricle Normal LV size. Moderate concentric left ventricular hypertrophy. Stage 2 diastolic dysfunction. The estimated ejection fraction is 55 %. Right Ventricle Normal RV size. Normal systolic function. Atria There is moderate biatrial dilatation. Mitral Valve Mild diffuse mitral valve thickening. Mild (1+) mitral valve insufficiency. Tricuspid Valve Mild tricuspid valve insufficiency. Right ventricular systolic pressure estimated to be 48 mmHg. The pulmonary artery pressure is estimated only due to the absence of clear TR signal however IVC is mildly dilated. Aortic Valve Trisinus/trileaflet aortic valve. Moderate focal aortic valve thickening. There is no aortic stenosis. Mild (1+) aortic valve insufficiency. Pulmonic Valve Mild (1+) pulmonic valve insufficiency. Great Vessels Normal sized aortic root. The inferior vena cava is dilated. Pericardium/Pleural No pericardial effusion. MMode/2D Measurements & Calculations LVIDd: 3.7 cm IVSd: 1.6 cm LVOT diam: 2.0 cm LVIDs: 2.9 cm LVPWd: 1.6 cm LVOT area: 3.1 cm2 FS: 22.6 % LAV(MOD-bp): 85.0 ml LVAd ap4: 26.5 cm2 SV(MOD-sp4): 42.6 ml LAV(MOD-bp) Indexed: 44.4 ml/m2 LVLd ap4: 7.8 cm SI(MOD-sp4): 22.2 ml/m2 LAV(MOD-sp2): 74.0 ml EDV(MOD-sp4): 75.1 ml LAV(MOD-sp4): 81.6 ml EDV(sp4-el): 76.3 ml LVAs ap4: 16.2 cm2 LVLs ap4: 6.9 cm ESV(MOD-sp4): 32.6 ml ESV(sp4-el): 32.4 ml EF(MOD-sp4): 56.7 % EF(sp4-el): 57.6 % SV(sp4-el): 43.9 ml LA A4 area: 26.3 cm2 LA dimension(2D): 4.8 cm RA A4 area: 22.4 cm2 TAPSE: 1.4 cm Time Measurements MV dec time: 0.16 sec Doppler Measurements & Calculations MV E max tariq: 131.6 cm/sec Lat Peak E' Tariq: 6.0 cm/sec Med Peak E' Tariq: 4.9 cm/sec MV A max tariq: 43.4 cm/sec E/E' lat: 21.9 E/E' med: 26.8 MV E/A: 3.0 MV V2 max: 143.5 cm/sec MV P1/2t max tariq: 144.7 cm/sec Ao V2 max: 121.2 cm/sec MV max P.2 mmHg MV P1/2t: 63.2 msec Ao max P.9 mmHg MV V2 mean: 61.2 cm/sec Ao V2 mean: 82.5 cm/sec MV mean P.0 mmHg MV dec slope: 670.0 cm/sec2 Ao mean P.1 mmHg MV V2 VTI: 43.1 cm MVA(P1/2t): 3.5 cm2 Ao V2 VTI: 30.7 cm AV (velocity ratio): 0.88 MVA(VTI): 1.9 cm2 JONH(I,D): 2.7 cm2 JONH(V,D): 2.9 cm2 AI max tariq: 325.3 cm/sec LV V1 max: 111.8 cm/sec MR max tariq: 459.0 cm/sec AI max P.4 mmHg LV V1 max P.0 mmHg MR max P.3 mmHg LV V1 mean P.5 mmHg MR mean tariq: 361.6 cm/sec AI dec slope: 191.5 cm/sec2 LV V1 mean: 74.0 cm/sec MR mean P.8 mmHg AI P1/2t: 497.5 msec LV V1 VTI: 26.9 cm MR VTI: 180.8 cm SV(LVOT): 83.7 ml PA V2 max: 95.2 cm/sec TR max tariq: 320.8 cm/sec PA V2 mean: 63.4 cm/sec TR max P.2 mmHg ECHO/Echo Complete Interpretation Summary Normal LV size. Moderate concentric left ventricular hypertrophy. The estimated ejection fraction is 55 %. Normal RV size. Normal systolic function. Stage II diastolic dysfunction There is moderate biatrial dilatation. Mild (1+) mitral valve insufficiency with mild diffuse mitral valve thickening The pulmonary artery pressure is estimated only due to the absence of clear TR signal however IVC is mildly dilated Right ventricular systolic pressure estimated to be 48 mmHg. Mild (1+) aortic valve insufficiency. Ordering Physician: Mata Hatch Performed By: Leonidas Davis RCS
--- NOTE | 2025-04-06 10:02 | PCM.HP.STD ---
HPI - General General Date of Admission: 04/06/25 Date of Service: 04/06/25 Chief Complaint: Chest heaviness and shortness of breath in the morning today HPI Narrative ANGIE DUTTON, is a 84 M came to ED for chest pressure/heaviness and shortness of breath started in the morning today. He said he slept first part of the night good and then started feeling shortness of breath to the point that he could not breathe. He also felt like heavy rock sitting on the chest/chest heaviness with radiation to right arm back. Patient has dizziness but he is not clear about syncope. Patient is not a good historian with very hard of hearing and circumferential about the chronology of the events He denies any fall. He also has a right leg redness and mild swelling for few months. No fever. He he had a bowel movement and urine in the morning. While in the ED, patient felt improvement in shortness of breath and chest pressure. His blood pressure also improved to systolic 118 and heart rate about 54/min. FORMERLY [facility] Medical History Elevated troponin Anticoagulated Kidney disease GERD (gastroesophageal reflux disease) Former tobacco use HLD (hyperlipidemia) CAD (coronary artery disease) History of chronic hypertension Right leg weakness Myocardial infarct Hypertension Vertigo Home Medications ?Medication ?Instructions ?Recorded ?Last Taken ?Type isosorbide mononitrate 30 mg 15 mg PO DAILY HEART 08/23/19 04/05/25 History tablet,extended release 24 hr gabapentin 400 mg capsule 400 mg PO BID NERVE PAIN 06/25/21 04/05/25 History ezetimibe 10 mg tablet 10 mg PO DAILY CHOLESTROL 09/24/23 04/05/25 History apixaban 5 mg tablet (Eliquis) 5 mg PO BID CEREBRAL INFARCTION 09/26/23 04/05/25 Rx #60 tabs amiodarone 200 mg tablet 200 mg PO DAILY AFIB 11/07/24 04/05/25 History ascorbic acid (vitamin C) 500 mg 500 mg PO BID SUPPLEMENT 11/07/24 04/05/25 History capsule bisacodyl 10 mg rectal suppository 10 mg CA DAILY PRN constipation 11/07/24 Unknown History docusate sodium 100 mg capsule 100 mg PO DAILY CONSTIPATION 11/07/24 04/05/25 History ferrous sulfate 325 mg (65 mg 325 mg PO DAILY ANEMIA 11/07/24 04/05/25 History iron) tablet (FeroSul) magnesium hydroxide 400 mg/5 mL 30 ml PO DAILY PRN constipation 11/07/24 Unknown History oral suspension (Milk of Magnesia) metformin 500 mg tablet,extended 500 mg PO DAILY DIABETES 11/07/24 04/05/25 History release 24 hr ondansetron 4 mg disintegrating 4 mg PO Q6H PRN nausea and vomiting 11/07/24 Unknown History tablet polyethylene glycol 3350 17 17 g PO DAILY constipation 11/07/24 Unknown History gram/dose oral powder (ClearLax) tamsulosin 0.4 mg capsule 0.4 mg PO QHS bladder 11/07/24 04/05/25 History furosemide 40 mg tablet 40 mg PO DAILY EDEMA 30 days #0 11/10/24 04/05/25 Rx tabs pantoprazole 40 mg tablet,delayed 40 mg PO BID HEARTBURN 30 days #60 11/10/24 04/05/25 Rx release (Protonix) tabs simvastatin 20 mg tablet 20 mg PO QHS cholesterol 11/25/24 04/05/25 History trazodone 150 mg tablet 75 mg PO QHS INSOMNIA 11/25/24 04/04/25 History metoprolol succinate 50 mg 25 mg (1/2 x 50 mg) PO DAILY 11/28/24 04/05/25 Rx tablet,extended release 24 hr ANGINA #30 tabs cyclobenzaprine 5 mg tablet 5 mg PO BID back pain 04/06/25 04/05/25 History diclofenac sodium 1 % topical gel 2 ea topical BID back pain 04/06/25 03/30/25 History mirtazapine 7.5 mg tablet 7.5 mg PO QHS mood 04/06/25 04/05/25 History Allergy/AdvReac Type Severity Reaction Status Date / Time Sulfa (Sulfonamide Allergy Unknown Verified 03/06/25 07:05 Antibiotics) Family History Mother Heart disease Father Heart disease Surgical History Status post arthroscopic knee surgery S/P bilateral foot surgery S/p bilateral carpal tunnel release S/P tonsillectomy and adenoidectomy S/P bilateral cataract extraction S/P CABG x 3 Stented coronary artery H/O right heart catheterization Social History household members: spouse Smoking Status: Former smoker how long ago did patient quit smoking: Quit when he was 44 y/o, 1/2 ppd since 10 years old. alcohol intake: never substance use type: does not use ROS ROS Narrative 14 system ROS limited due to very hard of hearing Constitutional: Reports acute onset fatigue and weakness. No fever. HEENT: Reports systems reviewed and no addt'l complaints, except as documented Respiratory/Chest: No acute shortness of breath or respiratory distress or wheezing. CVS: As described in HPI Gastrointestinal: Denies coffee ground emesis, hematemesis or vomiting Genitourinary: Denies burning urination or new urinary tract symptoms Musculoskeletal: He said he could not walk today. Denies acute joint pain or limited range of motion. No acute injury Neurologic: Denies seizure-like symptoms. skin: Chronic right lower leg redness and swelling after a fall couple months ago Endocrinology: Reports systems reviewed and no addt'l complaints, except as documented Hematologic/Lymphatic: Reports systems reviewed and no addt'l complaints, except as documented Rest 14 ROS are negative except as mentioned in HPI Vital Signs Vital Signs Vital Signs: 04/06/25 07:49 04/06/25 08:15 04/06/25 08:30 Temperature 97.2 F L Temperature Source Oral Pulse Rate 53 L 53 L 52 L Respiratory Rate 20 H 14 14 Blood Pressure 116/62 115/50 L Blood Pressure Mean 80 71 Pulse Ox 100 98 100 Oxygen Delivery Method Nasal Cannula 04/06/25 09:00 04/06/25 09:25 Temperature 97.8 F Temperature Source Pulse Rate 50 L 51 L Respiratory Rate 11 L 18 Blood Pressure 107/49 L 107/49 L Blood Pressure Mean 68 68 Pulse Ox 100 100 Oxygen Delivery Method Weight Weight: 176 lb 12.972 oz Body Mass Index (BMI) 27.6 Physical Exam Narrative General: Alert, Oriented x3, Cooperative HEENT: Atraumatic, PERRLA, EOMI, Normocephalic. Oral: No Gingival or Mucosal Lesions/ Ulcerations Neck: Oral mucosa dry supple, No JVD, Negative Carotid Bruits Chest wall/Lungs: Air entry diminished in bilateral lung bases. No crepitation/rhonchi Cardiovascular: sinus bradycardia. Systolic murmur Abdomen: Bowel Sounds Present, Soft, Non Tender, Non-Distended : No dysuria. No renal angle tenderness. No suprapubic tenderness. Extremities: No edema, Capillary Refill Less than 3 Seconds Skin: Right lower leg erythematous mild swelling with superficial erosion, chronic. Musculoskeletal: No Tenderness to Palpation of Joints or Extremities Neurological: Cranial nerves II-XII grossly intact, DTR 2+/4. No acute focal neurological deficit. Psych/Mental Status: Flat affect Results Lab / Micro Data 04/06/25 07:47 04/06/25 07:47 Labs: Laboratory Results - last 24 hr 04/06/25 07:47: WBC 3.9 L, RBC 3.57 L, Hgb 10.2 L, Hct 33.9 L, MCV 95.0 H, MCH 28.6, MCHC 30.1 L, RDW Std Deviation 49.2 H, RDW Coeff of Jaqueline 14.1, Plt Count 63 L, MPV 13.3 H, Immature Gran % (Auto) 0.800, Neut % (Auto) 66.3, Lymph % (Auto) 27.8, [place] % (Auto) 2.8, Baso % (Auto) 1.5 H, Absolute Neuts (auto) 2.6, Absolute Lymphs (auto) 1.08, Differential Comment SCANNED, Platelet Estimate MKD DEC, Sodium 141, Potassium 3.7, Chloride 104, Carbon Dioxide 19.1 L, Anion Gap 18 H, BUN 16, Creatinine 2.01 H, Estim Creat Clear Calc 26.77 L, Est GFR (MDRD) Non-Af 32 L, BUN/Creatinine Ratio 8.0 L, Glucose 179 H, Lactic Acid 3.9 H*, Calcium 9.0, Total Bilirubin 0.34, AST 19, ALT 9, Alkaline Phosphatase 89, Troponin T High Sens 46 H D, NT pro BNP II 6591 H, Total Protein 6.3, Albumin 3.9, Globulin 2.3, Albumin/Globulin Ratio 1.7 ABG Data ABG results: ABG 04/06/25 08:11 Specimen Type ART Sample Site R Radial pH 7.36 Bicarbonate Actual 22.2 Total CO2 23 Base Excess -3 L O2 Saturation 98 O2 % 6.0 ABG pCO2 39.5 ABG pO2 109 H Anthony Test Positive O2 Delivery Device Cannula Vent Mode Not entered Imaging Radiology Impression Chest X-Ray 04/06/25 07:47 IMPRESSION: Cardiomegaly. CHF. Reading [facility] Assessment & Plan Assessment/Plan (1) Sinus bradycardia: (2) Acidosis, lactic: PLAN: Plan This is a 84-year-old gentleman being admitted for evaluation of acute onset of shortness of breath and chest heaviness with severe bradycardia and hypotension. 1. 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 ED EKG shows sinus bradycardia 51 beats minute, LVH, LAD, first-degree AV block. On the nurse monitoring heart rate is improved to 55 bpm, BP 118 systolic. Previous ECG in November 2024 shows sinus rhythm 67 beats minute, bifascicular block. If heart rate slows down further or hypotensive and will need dobutamine drip. Patient is being admitted in ICU. Planisher consulted. For now does not meet criteria for complete heart block. 2. Paroxysmal A-fib, current sinus bradycardia with lactic acidosis: Lactic acid most likely due to poor perfusion. Chest x-ray individually reviewed shows cardiomegaly with vascular congestion and prior changes of CABG. Initial BP was 116/62 dropped 107/49 probably after Lasix 60 mg IV. Clinically does not look like septic. Hold metoprolol succinate and amiodarone. Hold Eliquis in anticipation of possible requirement of pacemaker. 2D echo shows EF 55%, moderate concentric LVH, normal LV size and RV size. Stage II diastolic dysfunction. Mild MR. Mild AI. RVSP 48 mmHg. Mild TR. IVC mildly dilated. 3. CAD with CABG and stent. Chest pressure: Patient had CABG about 40 years ago and last stent about 10 years ago. Continue statin and nitrate. Serial troponins 46, 43 and 44 plan intermediate and not indicative of acute infarct. Patient has last stress test done in November 2024 reported normal perfusion scan. His bradycardia with decreased perfusion might be result of chest pressure. Planisher is consulted. No acute EKGs to suggest ischemia 4. Chronic right lower extremity swelling erosion probably is localized cellulitis: Patient states it is there for last couple months. IV ceftriaxone and doxycycline ordered. 5. 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 ABG 7.36/39/190/23. ABGs near normal. Repeat lactic acid came normal. Avoid nephrotoxic medications. Chest ray showed vascular congestion so not candidate for IV fluid. 6. Other comorbidities include hypertension, dyslipidemia: As mentioned above. Lipid profile tomorrow a.m. Statin continued. Blood pressure on lower side. 7. GERD and former tobacco use: On PPI. DVT prophylaxis: Hold Eliquis. Lovenox 30 mL subcu daily ordered for DVT prophylaxis. Laboratory Results 04/06/25 07:47: WBC 3.9 L, RBC 3.57 L, Hgb 10.2 L, Hct 33.9 L, MCV 95.0 H, MCH 28.6, MCHC 30.1 L, RDW Std Deviation 49.2 H, RDW Coeff of Jaqueline 14.1, Plt Count 63 L, MPV 13.3 H, Immature Gran % (Auto) 0.800, Neut % (Auto) 66.3, Lymph % (Auto) 27.8, [place] % (Auto) 2.8, Baso % (Auto) 1.5 H, Absolute Neuts (auto) 2.6, Absolute Lymphs (auto) 1.08, Differential Comment SCANNED, Platelet Estimate MKD DEC, Sodium 141, Potassium 3.7, Chloride 104, Carbon Dioxide 19.1 L, Anion Gap 18 H, BUN 16, Creatinine 2.01 H, Estim Creat Clear Calc 26.77 L, Est GFR (MDRD) Non-Af 32 L, BUN/Creatinine Ratio 8.0 L, Glucose 179 H, Lactic Acid 3.9 H*, Calcium 9.0, Total Bilirubin 0.34, AST 19, ALT 9, Alkaline Phosphatase 89, Troponin T High Sens 46 H D, NT pro BNP II 6591 H, Total Protein 6.3, Albumin 3.9, Globulin 2.3, Albumin/Globulin Ratio 1.7, Amiodarone Pending, Desethylamiodarone Pending 04/06/25 08:11: Specimen Type ART, Sample Site R Radial, pH 7.36, Bicarbonate Actual 22.2, Total CO2 23, Base Excess -3 L, O2 Saturation 98, O2 % 6.0, ABG pCO2 39.5, ABG pO2 109 H, Anthony Test Positive, O2 Delivery Device Cannula, Vent Mode Not entered 04/06/25 10:12: PT 18.8 H, INR 1.5, Phosphorus 3.9, Magnesium 2.1, Troponin T Hi Sens 2 Hr 43 H 04/06/25 11:50: Troponin T Hi Sens 4Hr 44 H, TSH 1.680, Free T4 1.20 04/06/25 12:05: Lactic Acid 1.9 04/06/25 13:25: Urine Color Straw, Urine Clarity Clear, Urine pH 6.0, Ur Specific [place] 1.010, Urine Protein Negative, Urine Glucose (UA) Normal, Urine Ketones Negative, Urine Occult Blood 10 H, Urine Nitrite Negative, Urine Bilirubin Negative, Urine Urobilinogen Normal, Ur Leukocyte Esterase Negative, Urine RBC 0 SEEN, Urine WBC 0 SEEN, Ur Squamous Epith Cells 0 SEEN, Urine Bacteria 0 SEEN, Urine Mucus 0 SEEN Living will/advanced directive/end of life care: Patient does not have living will or advanced directive. After discussion of benefits/risks procedures involved with full code, DNR CC arrest and DNR CC, the patient opted for full code. Patient does want artificial life support including intubation, tube feed, ventilator and/chest compression, central venous catheter, vasopressor and DC shock if needed Total time spent in [id number] encounter in discussion of advanced directive 17 minutes. 2D echo 04/06/2025 Interpretation Summary Normal LV size. Moderate concentric left ventricular hypertrophy. The estimated ejection fraction is 55 %. Normal RV size. Normal systolic function. Stage II diastolic dysfunction There is moderate biatrial dilatation. Mild (1+) mitral valve insufficiency with mild diffuse mitral valve thickening The pulmonary artery pressure is estimated only due to the absence of clear TR signal however IVC is mildly dilated Right ventricular systolic pressure estimated to be 48 mmHg. Mild (1+) aortic valve insufficiency. Charges/Coding Visit Charges Inpatient E&M: 10631 Init Hosp L3 Procedures Hospitalists Procedures: 24854 Advncd Care Plan 30 Min
--- NOTE | 2025-04-06 10:18 | VDLE_ITS ---
Reason For Study Reason For Study: Swelling RIGHT LEFT GSV is normal. GSV is normal. CFV is compressible, spontaneous, phasic, competent CFV is compressible, spontaneous, phasic, competent, and demonstrates normal augmentation. and demonstrates normal augmentation. FV is compressible, spontaneous, phasic, competent FV is compressible, spontaneous, phasic, competent and demonstrates normal augmentation. and demonstrates normal augmentation. POP V is compressible, spontaneous, phasic, competent POP V is compressible, spontaneous, phasic, competent and demonstrates normal augmentation. and demonstrates normal augmentation. T/P Trunk is compressible. T/P Trunk is compressible. PTV is compressible. PTV is compressible. RT PerV is compressible. LT PerV is compressible. Procedure This is a venous duplex using B-mode, color flow and spectral Doppler. Exam performed portable in ED. A preliminary report was called and/or faxed to MARILU Montanez RN. VL/Venous Duplex US - [place] Extrem Interpretation Summary Deep veins of the bilateral lower extremities are patent and compressible segme ntally. There is no evidence of bilateral lower extremity deep vein thrombosis. The bilateral great saphenous veins appea r patent and compressible segmentally. Ordering Physician: Mata Hatch Performed By: Carolee Park RVT
--- NOTE | 2025-04-06 10:20 | ED.RN ---
patient requesting us call his daughter Ruthann and notify her of what is going on. Son-in-law Kyler notified admission and patient would like someone to check on his .
[2025-04-06 10:40] LABS: Troponin T High Sens 2 HR 43 ng/L (<=22)
[2025-04-06 10:54] LABS: Prothrombin Time (Protime)PT. 18.8 SECONDS (11.7-14.9)
[2025-04-06 11:08] LABS: Magnesium 2.1 mg/dL (1.5-2.2)
[2025-04-06 12:00] LABS: Reflex Lactate? Y
--- NOTE | 2025-04-06 12:21 | PCM.CONS.C ---
Assessment & Plan Assessment/Plan (1) Chest pressure: PLAN: The patient has established CAD with remote bypass graft surgery as well as PCI however the recent ischemic evaluation in November 2024 demonstrated normal perfusion and there is a high likelihood of bradycardia with decreased perfusion pressure contributing to his chest pain syndrome. Meanwhile continue the current medical therapy approach with the nitrates. Beta-blockers on hold due to bradycardia arrhythmia. High-sensitivity troponin nonspecific in the above setting and no indicative of an acute infarct. 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 I explained to the patient the possibility of needing a permanent pacemaker and he would be agreeable to proceed with that if needed. Check thyroid function tests and free T4 especially with use of amiodarone. (3) Sinus bradycardia: PLAN: As above (4) Atrial fibrillation with RVR: PLAN: Remote history but currently bradycardic and continue anticoagulation with Eliquis however the later currently is on temporary hold in anticipation of potentially needing a procedure, i.e. permanent pacemaker but will restart once a decision is made. Will adjust the dose according to the age and renal function (5) CAD (coronary artery disease): PLAN: Stable at this time we will continue statins and nitrates but avoid beta-blockers due to the above prominent bradycardia arrhythmia (6) Acidosis, lactic: PLAN: Likely related to hypoperfusion state and low cardiac output from the bradycardia arrhythmia. Will recheck and I would like to avoid any further diuresis at this time as he appears euvolemic with no signs of an acute CHF or fluid overload. If repeat lactic acid demonstrates worsening status, then may consider short hydration, meanwhile continue to encourage oral intake (7) Acute kidney injury superimposed on stage 3b chronic kidney disease: PLAN: Suspect that related to prerenal stage and we will check urinalysis to rule out an underlying UTI playing a role in the above HPI Consult Data Date of Consult: 04/06/25 HPI Narrative Reason for Consultation: Bradycardia and chest pain HPI Narrative: ANGIE DUTTON, is a 84 M who presents with an acute onset of chest pain that woke him up from sleep, described as heaviness with no radiation but became very weak and was nauseated for which he took 2 nitroglycerin and felt weaker as 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 They live independently. Prior to the above event he was feeling well without any recent heart failure symptoms or angina. His last tress test was in November 2024 that demonstrated normal perfusion with normal left normal size and function. He also underwent recent hip arthroplasty in September of this year without any major complications. No recent adjustments to his medical therapy but has underlying bifascicular block with heart rate in the 60s on his last EKG but upon arrival of the EMS, apparently they documented heart rate in the 20s. No definitive syncope but clearly there were signs of presyncope and dizziness. He recently fell and had some right leg redness and mild swelling of both lower extremities and continues to use Lasix on a daily basis. He denies any dysuria, fever or chills. He denies any ingestion of [id number] medications. He denies any tobacco or EtOH use. He denies any recent change to his medical regimen. By reviewing his past medical history, it is significant for remote coronary bypass graft surgery more than 40 years ago and followed by PCI also more than 20 years ago and as mentioned above the last stress test evaluation was in a pharmacological modality in November 2024 without any ischemia. In the ED there was evidence of lactic acidosis with lactic acid 3.3, there is also evidence of elevated NT proBNP 6500, but high-sensitivity troponin is borderline. Upon arrival to the CCU here he is in sinus bradycardia with bifascicular block and a first-degree AV block, almost trifascicular block heart rate in the 50s but completely back to baseline and asymptomatic at this time. He received 1 dose of Lasix 60 mg due to pulmonary vascular congestion noted on the chest x-ray but unfortunately he also has an acute kidney injury with a current creatinine 2.0 compared to baseline 1.5. [facility] Medical History Elevated troponin Anticoagulated Kidney disease GERD (gastroesophageal reflux disease) Former tobacco use HLD (hyperlipidemia) CAD (coronary artery disease) History of chronic hypertension Right leg weakness Myocardial infarct Hypertension Vertigo Home Medications ?Medication ?Instructions ?Recorded ?Last Taken ?Type isosorbide mononitrate 30 mg 15 mg PO DAILY HEART 08/23/19 04/05/25 History tablet,extended release 24 hr gabapentin 400 mg capsule 400 mg PO BID NERVE PAIN 06/25/21 04/05/25 History ezetimibe 10 mg tablet 10 mg PO DAILY CHOLESTROL 09/24/23 04/05/25 History apixaban 5 mg tablet (Eliquis) 5 mg PO BID CEREBRAL INFARCTION 09/26/23 04/05/25 Rx #60 tabs amiodarone 200 mg tablet 200 mg PO DAILY AFIB 11/07/24 04/05/25 History ascorbic acid (vitamin C) 500 mg 500 mg PO BID SUPPLEMENT 11/07/24 04/05/25 History capsule bisacodyl 10 mg rectal suppository [address] DAILY PRN constipation 11/07/24 Unknown History docusate sodium 100 mg capsule 100 mg PO DAILY CONSTIPATION 11/07/24 04/05/25 History ferrous sulfate 325 mg (65 mg 325 mg PO DAILY ANEMIA 11/07/24 04/05/25 History iron) tablet (FeroSul) magnesium hydroxide 400 mg/5 mL 30 ml PO DAILY PRN constipation 11/07/24 Unknown History oral suspension (Milk of Magnesia) metformin 500 mg tablet,extended 500 mg PO DAILY DIABETES 11/07/24 04/05/25 History release 24 hr ondansetron 4 mg disintegrating 4 mg PO Q6H PRN nausea and vomiting 11/07/24 Unknown History tablet polyethylene glycol 3350 17 17 g PO DAILY constipation 11/07/24 Unknown History gram/dose oral powder (ClearLax) tamsulosin 0.4 mg capsule 0.4 mg PO QHS bladder 11/07/24 04/05/25 History furosemide 40 mg tablet 40 mg PO DAILY EDEMA 30 days #0 11/10/24 04/05/25 Rx tabs pantoprazole 40 mg tablet,delayed 40 mg PO BID HEARTBURN 30 days #60 11/10/24 04/05/25 Rx release (Protonix) tabs simvastatin 20 mg tablet 20 mg PO QHS cholesterol 11/25/24 04/05/25 History trazodone 150 mg tablet 75 mg PO QHS INSOMNIA 11/25/24 04/04/25 History metoprolol succinate 50 mg 25 mg (1/2 x 50 mg) PO DAILY 11/28/24 04/05/25 Rx tablet,extended release 24 hr ANGINA #30 tabs cyclobenzaprine 5 mg tablet 5 mg PO BID back pain 04/06/25 04/05/25 History diclofenac sodium 1 % topical gel 2 ea topical BID back pain 04/06/25 03/30/25 History mirtazapine 7.5 mg tablet 7.5 mg PO QHS mood 04/06/25 04/05/25 History Allergy/AdvReac Type Severity Reaction Status Date / Time Sulfa (Sulfonamide Allergy Unknown Verified 03/06/25 07:05 Antibiotics) Family History Mother Heart disease Father Heart disease Surgical History Status post arthroscopic knee surgery S/P bilateral foot surgery S/p bilateral carpal tunnel release S/P tonsillectomy and adenoidectomy S/P bilateral cataract extraction S/P CABG x 3 Stented coronary artery H/O right heart catheterization Social History household members: spouse Smoking Status: Former smoker how long ago did patient quit smoking: Quit when he was 44 y/o, 1/2 ppd since 10 years old. alcohol intake: never substance use type: does not use Prior Cardiac Testing/Procedures Prior Cardiac Testing/Procedures: Echocardiogram (Normal ventricle size and function, moderate concentric ventricle hypertrophy with mild AI and mild MR) and Stress Test (November 2024, normal perfusion with normal ventricle size and function) ROS ROS Narrative Most of the review of system is essentially negative Constitutional Constitutional: Reports fatigue Eyes Eyes: Reports systems reviewed and no addt'l complaints, except as documented and as per HPI ENT HEENT: Reports as per HPI Cardiovascular Cardiovascular: Reports as per HPI Respiratory/Chest Respiratory/Chest: Reports as per HPI Gastrointestinal Gastrointestinal: Reports none Genitourinary Genitourinary: Reports none Musculoskeletal Musculoskeletal: Reports arthralgias and joint swelling Integumentary Integumentary: Reports systems reviewed and no addt'l complaints, except as documented Neurologic Neurologic: Reports systems reviewed and no addt'l complaints, except as documented Psychiatric Psychiatric: Reports systems reviewed and no addt'l complaints, except as documented Endocrine Endocrinology: Reports systems reviewed and no addt'l complaints, except as documented Hematologic/Lymphatic Hematologic/Lymphatic: Reports systems reviewed and no addt'l complaints, except as documented Allergic/Immunologic Allergic/Immunologic: Reports systems reviewed and no addt'l complaints, except as documented Physical Exam Const alert and oriented x3 HEENT normocephalic and head/scalp atraumatic HEENT Narrative: Difficulty hearing bilaterally Eyes PERRL and EOMs intact bilaterally Neck full ROM and no lymphadenopathy Carotids: normal carotid upstroke Lymph Lymphatic: no lymphadenopathy noted Chest inspection of chest normal Resp normal respiratory effort and clear to auscultation bilaterally Cardio regular rate Palpation: normal PMI Rate: regular rate and bradycardia Heart Sounds: S1 normal, S2 normal and murmur systolic GI normal to inspection, nondistended, normoactive bowel sounds no CVA tenderness Back/Spine no CVA tenderness Extremity Extremity Narrative: Mild edema bilaterally with mild erythema at the right anterior jesus but no signs of infection Psych mental status grossly normal Risk Stratification Risk Stratification Applicable: No Objective Data Vital Signs: Vital Signs Temp Pulse Resp BP Pulse Ox O2 Del Method 97.2 F L 56 L 16 149/58 H 94 Room Air 04/06/25 11:26 04/06/25 11:41 04/06/25 11:41 04/06/25 11:41 04/06/25 11:41 04/06/25 11:41 Oxygen Delivery Method Room Air Weight: 170 lb 13.732 oz Body Mass Index (BMI) 26.7 Intake & Output: Intake and Output for Last 24 Hours 04/04/25 04/05/25 04/06/25 23:59 23:59 23:59 Intake Total 100 / 100 Balance 100 / 100 Lab / Micro Data Attestation: I reviewed the patient's lab results. 04/06/25 07:47 04/06/25 07:47 Labs: Laboratory Results - last 24 hr 04/06/25 07:47: WBC 3.9 L, RBC 3.57 L, Hgb 10.2 L, Hct 33.9 L, MCV 95.0 H, MCH 28.6, MCHC 30.1 L, RDW Std Deviation 49.2 H, RDW Coeff of Jaqueline 14.1, Plt Count 63 L, MPV 13.3 H, Immature Gran % (Auto) 0.800, Neut % (Auto) 66.3, Lymph % (Auto) 27.8, [place] % (Auto) 2.8, Baso % (Auto) 1.5 H, Absolute Neuts (auto) 2.6, Absolute Lymphs (auto) 1.08, Differential Comment SCANNED, Platelet Estimate MKD DEC, Sodium 141, Potassium 3.7, Chloride 104, Carbon Dioxide 19.1 L, Anion Gap 18 H, BUN 16, Creatinine 2.01 H, Estim Creat Clear Calc 26.77 L, Est GFR (MDRD) Non-Af 32 L, BUN/Creatinine Ratio 8.0 L, Glucose 179 H, Lactic Acid 3.9 H*, Calcium 9.0, Total Bilirubin 0.34, AST 19, ALT 9, Alkaline Phosphatase 89, Troponin T High Sens 46 H D, NT pro BNP II 6591 H, Total Protein 6.3, Albumin 3.9, Globulin 2.3, Albumin/Globulin Ratio 1.7 04/06/25 10:12: PT 18.8 H, INR 1.5, Phosphorus 3.9, Magnesium 2.1, Troponin T Hi Sens 2 Hr 43 H ABG Data ABG results: ABG 04/06/25 08:11 Specimen Type ART Sample Site R Radial pH 7.36 Bicarbonate Actual 22.2 Total CO2 23 Base Excess -3 L O2 Saturation 98 O2 % 6.0 ABG pCO2 39.5 ABG pO2 109 H Anthony Test Positive O2 Delivery Device Cannula Vent Mode Not entered Rhythm Strip Rhythm Strip: Right bundle branch block, left anterior fascicular block and first-degree Rate: 53 Cardiology Labs/Tests 04/06/25 07:47: WBC 3.9 L, RBC 3.57 L, Hgb 10.2 L, Hct 33.9 L, MCV 95.0 H, MCH 28.6, MCHC 30.1 L, Plt Count 63 L, MPV 13.3 H, Immature Gran % (Auto) 0.800, Neut % (Auto) 66.3, Lymph % (Auto) 27.8, [place] % (Auto) 2.8, Baso % (Auto) 1.5 H, Absolute Neuts (auto) 2.6, Sodium 141, Potassium 3.7, Chloride 104, Carbon Dioxide 19.1 L, Anion Gap 18 H, BUN 16, Creatinine 2.01 H, Est GFR (MDRD) Non-Af 32 L, BUN/Creatinine Ratio 8.0 L, Glucose 179 H, Lactic Acid 3.9 H*, Calcium 9.0, Total Bilirubin 0.34 04/06/25 08:11: pH 7.36, Bicarbonate Actual 22.2, Base Excess -3 L, O2 Saturation 98, ABG pCO2 39.5, ABG pO2 109 H, Anthony Test Positive 04/06/25 10:12: PT 18.8 H, INR 1.5, Phosphorus 3.9, Magnesium 2.1 Rhythm: EKG: ECHO:03/2025 normal LV size and function with moderate concentric ventricle hypertrophy and mild AI with mild TR and mild MR, mild to moderate pulmonary hypertension Stress Test:11/2024 normal perfusion with normal ventricle size and function Cardiac Cath: PCI: CT Surgery: Holter monitor: EPS: PPM: CXR: Chest CT Scan: Radiography Diagnostic Testing: Radiology Impression Chest X-Ray 04/06/25 07:47 IMPRESSION: Cardiomegaly. CHF. Reading Location: [facility] Echocardiogram 04/06/25 10:00 Interpretation Summary Normal LV size. Moderate concentric left ventricular hypertrophy. The estimated ejection fraction is 55 %. Normal RV size. Normal systolic function. Stage II diastolic dysfunction There is moderate biatrial dilatation. Mild (1+) mitral valve insufficiency with mild diffuse mitral valve thickening The pulmonary artery pressure is estimated only due to the absence of clear TR signal however IVC is mildly dilated Right ventricular systolic pressure estimated to be 48 mmHg. Mild (1+) aortic valve insufficiency. Ordering Physician: Mata Hatch Performed By: Leonidas Davis RCS
[2025-04-06 13:00] LABS: Troponin T High Sens 4 HR 44 ng/L (<=22)
[2025-04-06 13:42] LABS: Color, Urine Straw (Yellow); Glucose, Dipstick Normal (Normal); Ketone-Dipstick Negative (Negative); Leukocyte Esterase-Dipstick Negative /ul (Negative); Mucous, Urine 0 SEEN /hpf (<or=2+); Nitrite-Dipstick Negative (Negative); Occult Blood-Urine 10 /ul (Negative); Protein-Dipstick Negative (Negative); Red Blood Cells-Urine 0 SEEN /hpf (0-5); Specific Gravity, Urine 1.010 (1.002-1.030); Squamous Epithelial Cells - UA 0 SEEN /hpf (0-5); Urine Bilirubin Dipstick Negative (Negative)
[2025-04-07] VITALS (33 sets, daily range): BP systolic 95–161; BP diastolic 28–105; PULSE 55–133; RESP 12–32; TEMP 36.1–36.8; O2SAT 82–100; BMI 27.3
[2025-04-07 05:39] LABS: Hematocrit 30.7 % (40-54); Hemoglobin 9.5 g/dL (13.0-16.5); Immature Granulocytes Count 0.020 X10^3/uL (0.0-0.0); Mean Corp Hgb Conc 30.9 g/dL (32-36); Mean Corpuscular Volume 92.2 fL (80-94); NRBC Flagged by Analyzer 0 % (0-5); POSITIVE COUNT YES; Platelet Count 54 K/mm3 (150-450); RBC Distribution Width CV 14.0 % (11.6-14.6); RBC Distribution Width SD 46.9 fl (35.1-43.9); Red Blood Count 3.33 M/mm3 (4.6-6.2); White Blood Count 3.4 K/mm3 (4.4-11.0)
[2025-04-07 06:04] LABS: Anion Gap 12 (5-15); BUN 19 mg/dL (4-19); BUN/Creat Ratio 10.3 RATIO (10-20); Calcium,Total 8.7 mg/dL (7.6-11.0); Carbon Dioxide 22.1 mmol/L (21.0-32.0); Chloride 107 mmol/L (98-108); Estimated Creatinine Clearance 26.65 ml/min (50-250); Glucose 98 mg/dL (70-99); Potassium 3.6 mmol/L (3.3-5.1)
--- NOTE | 2025-04-07 07:44 | PN.HOSP_ITS ---
Reason for Visit Chief Complaint: Chest heaviness and shortness of breath in the morning today Objective Data Objective Data Vital Signs: Vital Signs Temp Pulse Resp BP Pulse Ox O2 Del Method O2 Flow Rate 97.8 F 56 L 15 122/58 H 100 Nasal Cannula 2 04/06/25 19:00 04/07/25 07:00 04/07/25 07:00 04/07/25 07:00 04/07/25 07:00 04/07/25 07:00 04/07/25 07:00 FiO2 100 04/06/25 08:00 Oxygen Flow Rate (L/min) 2 Oxygen Delivery Method Nasal Cannula Weight: 174 lb 6.17 oz Body Mass Index (BMI) 27.3 Intake & Output: Intake and Output for Last 24 Hours 04/05/25 04/06/25 04/07/25 23:59 23:59 23:59 Intake Total 150 / 150 Output Total 275 / 275 250 / 250 Balance -125 / -125 -250 / -250 Lab / Micro Data 04/07/25 05:17 04/07/25 05:17 Labs: Laboratory Results - last 24 hr 04/06/25 07:47: WBC 3.9 L, RBC 3.57 L, Hgb 10.2 L, Hct 33.9 L, MCV 95.0 H, MCH 28.6, MCHC 30.1 L, RDW Std Deviation 49.2 H, RDW Coeff of Jaqueline 14.1, Plt Count 63 L, MPV 13.3 H, Immature Gran % (Auto) 0.800, Neut % (Auto) 66.3, Lymph % (Auto) 27.8, [place] % (Auto) 2.8, Baso % (Auto) 1.5 H, Absolute Neuts (auto) 2.6, Absolute Lymphs (auto) 1.08, Differential Comment SCANNED, Platelet Estimate MKD DEC, Sodium 141, Potassium 3.7, Chloride 104, Carbon Dioxide 19.1 L, Anion Gap 18 H, BUN 16, Creatinine 2.01 H, Estim Creat Clear Calc 26.77 L, Est GFR (MDRD) Non-Af 32 L, BUN/Creatinine Ratio 8.0 L, Glucose 179 H, Lactic Acid 3.9 H*, Calcium 9.0, Total Bilirubin 0.34, AST 19, ALT 9, Alkaline Phosphatase 89, T roponin T High Sens 46 H D, NT pro BNP II 6591 H, Total Protein 6.3, Albumin 3.9, Globulin 2.3, Albumin/Globulin Ratio 1.7 04/06/25 10:12: PT 18.8 H, INR 1.5, Phosphorus 3.9, Magnesium 2.1, Troponin T Hi Sens 2 Hr 43 H 04/06/25 11:50: Troponin T Hi Sens 4Hr 44 H, TSH 1.680, Free T4 1.20 04/06/25 12:05: Lactic Acid 1.9 04/06/25 13:25: Urine Color Straw, Urine Clarity Clear, Urine pH 6.0, Ur Specific [place] 1.010, Urine Protein Negative, Urine Glucose (UA) Normal, Urine Ketones Negative, Urine Occult Blood 10 H, Urine Nitrite Negative, Urine Bilirubin Negative, Urine Urobilinogen Normal, Ur Leukocyte Esterase Negative, Urine RBC 0 SEEN, Urine WBC 0 SEEN, Ur Squamous Epith Cells 0 SEEN, Urine Bacteria 0 SEEN, Urine Mucus 0 SEEN 04/07/25 05:17: WBC 3.4 L, RBC 3.33 L, Hgb 9.5 L, Hct 30.7 L, MCV 92.2, MCH 28.5, MCHC 30.9 L, RDW Std Deviation 46.9 H, RDW Coeff of Jaqueline 14.0, Plt Count 54 L, Immature Gran % (Auto) 0.600, Neut % (Auto) 60.5, Lymph % (Auto) 31.3, [place] % (Auto) 5.0, Eos % (Auto) 2.0, Baso % (Auto) 0.6, Absolute Neuts (auto) 2.1, Absolute Lymphs (auto) 1.07, Nucleated RBC % 0, Sodium 142, Potassium 3.6, Chloride 107, Carbon Dioxide 22.1, Anion Gap 12, BUN 19, Creatinine 1.86 H, E stim Creat Clear Calc 26.65 L, Est GFR (MDRD) Non-Af 35 L, BUN/Creatinine Ratio 10.3, Glucose 98, Calcium 8.7 ABG Data ABG results: ABG 04/06/25 08:11 Specimen Type ART Sample Site R Radial pH 7.36 Bicarbonate Actual 22.2 Total CO2 23 Base Excess -3 L O2 Saturation 98 O2 % 6.0 ABG pCO2 39.5 ABG pO2 109 H Anthony Test Positive O2 Delivery Device Cannula Vent Mode Not entered Radiography Diagnostic Testing: Radiology Impression Chest X-Ray 04/06/25 07:47 IMPRESSION: Cardiomegaly. CHF. Reading Location: [facility] Echocardiogram 04/06/25 10:00 Interpretation Summary Normal LV size. Moderate concentric left ventricular hypertrophy. The estimated ejection fraction is 55 %. Normal RV size. Normal systolic function. Stage II diastolic dysfunction There is moderate biatrial dilatation. Mild (1+) mitral valve insufficiency with mild diffuse mitral valve thickening The pulmonary artery pressure is estimated only due to the absence of clear TR signal however IVC is mildly dilated Right ventricular systolic pressure estimated to be 48 mmHg. Mild (1+) aortic valve insufficiency. Ordering Physician: Mata Hatch Performed By: Leonidas Davis RCS Venous Doppler Study 04/06/25 10:18 Interpretation Summary Deep veins of the bilateral lower extremities are patent and compressible segmentally. There is no evidence of bilateral lower extremity deep vein thrombosis. The bilateral great saphenous veins appear patent and compressible segmentally. Ordering Physician: Mata Hatch Performed By: Carolee Park RVT Rhythm Strip Rhythm Strip: Right bundle branch block, left anterior fascicular block and first-degree Rate: 53 Physical Exam Narrative Seen and examined. Overnight events noted. Patient had sinus pause for about 30 seconds about 5 AM today in the morning while he was sleeping. When the nurse woke him up he was flushed, loopy but was breathing. He denies any symptoms like chest pressure tightness or shortness of breath. Patient is eating breakfast and has some cough General: Alert, Oriented x3, Cooperative HEENT: Atraumatic, PERRLA, EOMI, Normocephalic. Oral: No Gingival or Mucosal Lesions/ Ulcerations Neck: Oral mucosa dry supple, No JVD, Negative Carotid Bruits Chest wall/Lungs: Air entry diminished in bilateral lung bases. No crepitation/rhonchi Cardiovascular: sinus bradycardia about 50s per minute. Sinus pause in the morning. Systolic murmur Abdomen: Bowel Sounds Present, Soft, Non Tender, Non-Distended : No dysuria. No renal angle tenderness. No suprapubic tenderness. Extremities: No edema, Capillary Refill Less than 3 Seconds Skin: Right lower leg erythematous mild swelling with superficial erosion, chronic, looks much improved compared to yesterday Musculoskeletal: No Tenderness to Palpation of Joints or Extremities Neurological: Cranial nerves II-XII grossly intact, DTR 2+/4. No acute focal neurological deficit. Psych/Mental Status: Flat affect Assessment & Plan Assessment/Plan (1) Sinus bradycardia: (2) Acidosis, lactic: PLAN: Plan This is a 84-year-old gentleman being admitted for evaluation of acute onset of shortness of breath and chest heaviness with severe bradycardia and hypotension. 1. 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 ED EKG shows sinus bradycardia 51 beats minute, LVH, LAD, first-degree AV block. On the threat monitoring analyst heart rate is improved to 55 bpm, BP 118 systolic. Previous ECG in November 2024 shows sinus rhythm 67 beats minute, bifascicular block. If heart rate slows down further or hypotensive and will need dobutamine drip. Patient is being admitted in ICU. Flatwork Washer consulted. For now does not meet criteria for complete heart block. 04/07: Patient had about 30 seconds complete pause and then next 2 beats were also short QRS complexes with prolonged R-R interval and then normal rhythm. Plan is pacemaker today. 2. Paroxysmal A-fib, current sinus bradycardia with lactic acidosis: Lactic acid most likely due to poor perfusion. Chest x-ray individually reviewed shows cardiomegaly with vascular congestion and prior changes of CABG. Initial BP was 116/62 dropped 107/49 probably after Lasix 60 mg IV. Clinically does not look like septic. Hold metoprolol succinate and amiodarone. Hold Eliquis in anticipation of possible requirement of pacemaker. 2D echo shows EF 55%, moderate concentric LVH, normal LV size and RV size. Stage II diastolic dysfunction. Mild MR. Mild AI. RVSP 48 mmHg. Mild TR. IVC mildly dilated. 3. CAD with CABG and stent. Chest pressure: Patient had CABG about 40 years ago and last stent about 10 years ago. Continue statin and nitrate. Serial troponins 46, 43 and 44 plan intermediate and not indicative of acute infarct. Patient has last stress test done in November 2024 reported normal perfusion scan. His bradycardia with decreased perfusion might be result of chest pressure. Flatwork Washer is consulted. No acute EKGs to suggest ischemia 4. Chronic right lower extremity swelling erosion probably is localized cellulitis: Patient states it is there for last couple months. IV ceftriaxone and doxycycline ordered. 5. 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 ABG 7.36/39/190/23. ABGs near normal. Repeat lactic acid came normal. Avoid nephrotoxic medications. Chest ray showed vascular congestion so not candidate for IV fluid. 6. Other comorbidities include hypertension, dyslipidemia: As mentioned above. Lipid profile tomorrow a.m. Statin continued. Blood pressure on lower side. 7. GERD and former tobacco use: On PPI. DVT prophylaxis: Hold Eliquis. Lovenox 30 mL subcu daily ordered for DVT prophylaxis. Microbiology Past 72 Hours 04/06/25 13:25 Urine, Clean Catch Urine Culture - Preliminary Culture exhibits no growth. Laboratory Results 04/07/25 05:17: WBC 3.4 L, RBC 3.33 L, Hgb 9.5 L, Hct 30.7 L, MCV 92.2, MCH 28.5, MCHC 30.9 L, RDW Std Deviation 46.9 H, RDW Coeff of Jaqueline 14.0, Plt Count 54 L, Immature Gran % (Auto) 0.600, Neut % (Auto) 60.5, Lymph % (Auto) 31.3, [place] % (Auto) 5.0, Eos % (Auto) 2.0, Baso % (Auto) 0.6, Absolute Neuts (auto) 2.1, Absolute Lymphs (auto) 1.07, Nucleated RBC % 0, Sodium 142, Potassium 3.6, Chloride 107, Carbon Dioxide 22.1, Anion Gap 12, BUN 19, Creatinine 1.86 H, E stim Creat Clear Calc 26.65 L, Est GFR (MDRD) Non-Af 35 L, BUN/Creatinine Ratio 10.3, Glucose 98, Calcium 8.7 04/06/25 13:25: Urine Color Straw, Urine Clarity Clear, Urine pH 6.0, Ur Specific [place] 1.010, Urine Protein Negative, Urine Glucose (UA) Normal, Urine Ketones Negative, Urine Occult Blood 10 H, Urine Nitrite Negative, Urine Bilirubin Negative, Urine Urobilinogen Normal, Ur Leukocyte Esterase Negative, Urine RBC 0 SEEN, Urine WBC 0 SEEN, Ur Squamous Epith Cells 0 SEEN, Urine Bacteria 0 SEEN, Urine Mucus 0 SEEN Living will/advanced directive/end of life care: Patient does not have living will or advanced directive. After discussion of benefits/risks procedures involved with full code, DNR CC arrest and DNR CC, the patient opted for full code. Patient does want artificial life support including intubation, tube feed, ventilator and/chest compression, central venous catheter, vasopressor and DC shock if needed Total time spent in [id number] encounter in discussion of advanced directive 17 minutes. 2D echo 04/06/2025 Interpretation Summary Normal LV size. Moderate concentric left ventricular hypertrophy. The estimated ejection fraction is 55 %. Normal RV size. Normal systolic function. Stage II diastolic dysfunction There is moderate biatrial dilatation. Mild (1+) mitral valve insufficiency with mild diffuse mitral valve thickening The pulmonary artery pressure is estimated only due to the absence of clear TR signal however IVC is mildly dilated Right ventricular systolic pressure estimated to be 48 mmHg. Mild (1+) aortic valve insufficiency. Charges/Coding Visit Charges Inpatient E&M: 42515 Subs Hosp L3
[2025-04-07] MEDS: Polyethylene Glycol 3350 17 GM PACKET PO (08:02)
--- NOTE | 2025-04-07 10:00 | CASEMGMT ---
Addendum entered by Cruzito Padgett 04/07/25 11:17: [facility] returns call and states that they are able to start care on Thursday if the pt DC's from [facility] over the weekend. If not, HH states that the SOC date will be pushed back later into the week. DC info updated. [facility] reports that they will be in contact with the pt regarding finalized SOC date and time. Original Note: NITA CARVAJAL Assessment Face to Face with patient for initial transition planning/care coordination assessment. NITA CARVAJAL introduced self and role at [facility], pt voices understanding. Pt is A&Ox4 and is resting comfortably in bed and is calm. Care providers, pharmacy, and demographics verified. Admitting dx: Heart Block LACE Strata: 3 PCP: Valery Quinteros Specialists: Pt reports that he sees a relations mgr in [place] () but cannot recall the name at this time Preferred Pharmacy: [facility] Insurance: [employer] Prescription Benefit: Yes LNOK: Rich Rolon (Son - Lives in in [place] - [facility], SW to follow up), Sepideh Flannery (Family friend and helper), Kyler Hansen (Son-[place]), Daughter that is to Kyler (Pt states that she does not talk to him) Living Arrangements: Pt reports that he lives with his in a 2 story duplex with 2 steps to enter with [employer]THERA ADLs/IADLs: Pt states that he is indep at baseline. States that he does the cooking. States that he orders groceries online for home delivery. Pt states that his has a hx of mental issues and states that she is debilitated and that he is concerned that she is not taking her medications while he is gone. Pt states that Sepideh Flannery helps the pt and pt's the most. Pt states that Rich also helps but that he lives far away and is busy. Pt is requesting a OPERATIONS CONTROLLER for the pt and pt's . Provided the pt with resources at this time. Pt is also requesting to speak to a SW. SW notified. Transportation: Self, [place]. Denies concerns currently DME: [facility] with sufficient supplies. BP Machine. Cane. FWW. Extended tub bench. Shower chair. Grab bars. Pt is currently requiring additional oxygen and may qualify for home oxygen use. A verbal list of local in-network DME companies were provided to the pt at this time. Pt prefers [employer]. Green sheet placed on the chart in the case that the pt were to qualify and DC over the weekend. HHC/SNF: Reports hx @ [facility] and states that he had a bad experience. Currently denies SNF needs. Pt denies skilled HHC hx but would like HHC. Pt states that he would like a skilled nurse, PT, OT, and SW to come to the home. Pt states that he Will take all the help I can get. Pt denies wanting to review a list of local HHC agencies that are in-network with the pt's insurance. Pt states that he prefers [facility]. TC to [facility] and referral made. CM to follow. Pt?s goal: Home with HHC Plan: TBD. Per ICU rounds, pt pay need pacer placement. At this time, cardiology is consulted and pending. Pt states that he prefers to return home once he is medically ready. To follow for home oxygen needs. Current 6-Click score is 20. PT/OT are ordered and pending. CM to follow HHC referral. Pt denies further questions or concerns at this time. RN ALENA and SW to follow. Rich Padgett RN, CM
--- NOTE | 2025-04-07 11:14 | CASEMGMT ---
Addendum entered by Maria Victoria Byrne 04/07/25 12:12: Social Work SW did let pt know that [facility] does take his insurance. SW also asked pt about SW calling his son, he states his son is teaching and coaches after school, he is busy, but okay for SW to call. SW called son, message left. SW will continue to follow. FRANDY Garcia Original Note: Social Work SW met w/pt in regard to concerns about his being home when he is here. Initially pt asked for phone numbers, SW gave him the numbers for his son in law Kyler and son Rich. Pt was given a private hire home health care list, pt states they cannot afford this. He states his son is looking into some kind of home health for them but does not know exactly what it is, states, I am an old man. states his has some psychiatric problems and has been in the hospital a couple of times. He states as long as she takes her medication however she manages fine. He states their son is in [place], their daughter does not speak w/them. He states his son in law drives a bread truck. They do have a friend Sepideh Flannery who helps them out at home. SW inquired if Sepideh Flannery will help pt w/meds, pt was vague with the answer. Pt then went on to state concern about his insurance and that his insurance is not accepted here, and that if he needs a pacemaker he would need to go to [facility]. SW offered support to pt. Pt's insurance is accepted here at this hospital, as far as this SW is aware. ANA remains available for support to pt. FRANDY Garcia
--- NOTE | 2025-04-07 11:54 | PN.CARD_ITS ---
Subjective Subjective Patient feels fine however at 5 AM was noted to have a sinus pause lasting almost 30 seconds and had similar symptoms to his clinical presentation with generalized fatigue and nausea then came back to sinus bradycardia with bifascicular block and this a.m. he is back to baseline. Objective Data Vital Signs: Vital Signs Temp Pulse Resp BP Pulse Ox O2 Del Method O2 Flow Rate 98.3 F 60 14 118/61 100 Room Air 2 04/07/25 11:00 04/07/25 11:00 04/07/25 11:00 04/07/25 11:00 04/07/25 11:00 04/07/25 11:00 04/07/25 10:00 FiO2 100 04/06/25 08:00 Oxygen Flow Rate (L/min) 2 Oxygen Delivery Method Room Air Weight: 174 lb 6.17 oz Body Mass Index (BMI) 27.3 Intake & Output: Intake and Output for Last 24 Hours 04/05/25 04/06/25 04/07/25 23:59 23:59 23:59 Intake Total 150 / 150 Output Total 275 / 275 250 / 250 Balance -125 / -125 -250 / -250 Lab / Micro Data 04/07/25 05:17 04/07/25 05:17 Labs: Laboratory Results - last 24 hr 04/06/25 11:50: Troponin T Hi Sens 4Hr 44 H, TSH 1.680, Free T4 1.20 04/06/25 12:05: Lactic Acid 1.9 04/06/25 13:25: Urine Color Straw, Urine Clarity Clear, Urine pH 6.0, Ur Specific [place] 1.010, Urine Protein Negative, Urine Glucose (UA) Normal, Urine Ketones Negative, Urine Occult Blood 10 H, Urine Nitrite Negative, Urine Bilirubin Negative, Urine Urobilinogen Normal, Ur Leukocyte Esterase Negative, Urine RBC 0 SEEN, Urine WBC 0 SEEN, Ur Squamous Epith Cells 0 SEEN, Urine Bacteria 0 SEEN, Urine Mucus 0 SEEN 04/07/25 05:17: WBC 3.4 L, RBC 3.33 L, Hgb 9.5 L, Hct 30.7 L, MCV 92.2, MCH 28.5, MCHC 30.9 L, RDW Std Deviation 46.9 H, RDW Coeff of Jaqueline 14.0, Plt Count 54 L, Immature Gran % (Auto) 0.600, Neut % (Auto) 60.5, Lymph % (Auto) 31.3, [place] % (Auto) 5.0, Eos % (Auto) 2.0, Baso % (Auto) 0.6, Absolute Neuts (auto) 2.1, Absolute Lymphs (auto) 1.07, Nucleated RBC % 0, Sodium 142, Potassium 3.6, Chloride 107, Carbon Dioxide 22.1, Anion Gap 12, BUN 19, Creatinine 1.86 H, E stim Creat Clear Calc 26.65 L, Est GFR (MDRD) Non-Af 35 L, BUN/Creatinine Ratio 10.3, Glucose 98, Calcium 8.7 Micro: Microbiology 04/06/25 13:25 Urine, Clean Catch Urine Culture - Preliminary Culture exhibits no growth. Rhythm Strip Rhythm Strip: Right bundle branch block, left anterior fascicular block and first-degree Rate: 53 Cardiology Labs/Tests 04/06/25 12:05: Lactic Acid 1.9 04/06/25 13:25: Urine Color Straw, Urine Clarity Clear, Urine pH 6.0, Ur Specific [place] 1.010, Urine Protein Negative, Urine Glucose (UA) Normal, Urine Ketones Negative, Urine Occult Blood 10 H, Urine Nitrite Negative, Urine Bilirubin Negative, Urine Urobilinogen Normal, Ur Leukocyte Esterase Negative, Urine RBC 0 SEEN, Urine WBC 0 SEEN 04/07/25 05:17: WBC 3.4 L, RBC 3.33 L, Hgb 9.5 L, Hct 30.7 L, MCV 92.2, MCH 28.5, MCHC 30.9 L, Plt Count 54 L, Immature Gran % (Auto) 0.600, Neut % (Auto) 60.5, Lymph % (Auto) 31.3, [place] % (Auto) 5.0, Eos % (Auto) 2.0, Baso % (Auto) 0.6, Absolute Neuts (auto) 2.1, Nucleated RBC % 0, Sodium 142, Potassium 3.6, Chloride 107, Carbon Dioxide 22.1, Anion Gap 12, BUN 19, Creatinine 1.86 H, Est GFR (MDRD) Non-Af 35 L, BUN/Creatinine Ratio 10.3, Glucose 98, Calcium 8.7 Rhythm: EKG: ECHO: 2D echo 04/06/2025 Interpretation Summary Normal LV size. Moderate concentric left ventricular hypertrophy. The estimated ejection fraction is 55 %. Normal RV size. Normal systolic function. Stage II diastolic dysfunction There is moderate biatrial dilatation. Mild (1+) mitral valve insufficiency with mild diffuse mitral valve thickening The pulmonary artery pressure is estimated only due to the absence of clear TR signal however IVC is mildly dilated Right ventricular systolic pressure estimated to be 48 mmHg. Mild (1+) aortic valve insufficiency. Stress Test: Cardiac Cath: PCI: CT Surgery: Holter monitor: EPS: PPM: CXR: Chest CT Scan: Radiography Diagnostic Testing: Radiology Impression Venous Doppler Study 04/06/25 10:18 Interpretation Summary Deep veins of the bilateral lower extremities are patent and compressible segmentally. There is no evidence of bilateral lower extremity deep vein thrombosis. The bilateral great saphenous veins appear patent and compressible segmentally. Ordering Physician: Mata Hatch Performed By: Carolee Park RVT Physical Exam Const alert and oriented x3 HEENT normocephalic and head/scalp atraumatic Eyes PERRL Neck full ROM and no lymphadenopathy Carotids: normal carotid upstroke Lymph Lymphatic: no lymphadenopathy noted Chest inspection of chest normal Resp clear to auscultation bilaterally Cardio regular rate and regular rhythm Cardio Narrative: Substance abuse remember 12 6 left upper sternal border GI Palpation: no hepatosplenomegaly no CVA tenderness Back/Spine no CVA tenderness Extremity normal to inspection, no joint enlargement and no clubbing, cyanosis or edema Skin no rashes or lesions noted Neuro Neuro Narrative: Alert awake oriented x 3 without any focal deficits Psych Memory / Cognition: cognition grossly intact Assessment & Plan Assessment/Plan (1) Sinus bradycardia: PLAN: Concerning specially with the age group, underlying bifascicular block, and prominent sinus pauses noted early a.m. with associated symptoms similar to his clinical presentation raising the high likelihood of an underlying sick sinus syndrome playing a role in the current symptomatology. 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 He received the last dose of Eliquis 36 hours ago for which we will continue holding for now and plan for implantation in the next 24 to 48 hours. Will keep n.p.o. for now (2) Acidosis, lactic: PLAN: Improving as repeat lactic acid less than 2 (3) CAD (coronary artery disease): PLAN: Stable with recent negative stress test for ischemia for which long-term treatment with beta-bryan would be advisable (4) Hypertension: PLAN: Fairly well-controlled at this time (5) Atrial fibrillation with RVR: PLAN: Currently maintaining sinus bradycardia but after permanent pacemaker implantation will restart his amiodarone/metoprolol (6) Acute kidney injury superimposed on stage 3b chronic kidney disease: PLAN: Improving slowly and will continue to encourage only oral hydration
--- NOTE | 2025-04-07 16:45 | CL.IE_ITS ---
Patient: ANGIE DUTTON Study Date: 04/07/2025 Performing: Ernie Powell MD : [id number] Age: 84 Gender: male PROCEDURES PERFORMED [id number])INITIAL PACER INSERT+DUAL LEADS INDICATIONS Sinoatrial node dysfunction/Sick sinus syndrome PROCEDURE DETAILS The patient was brought to the Catheterization Lab in the postabsorptive nonsedated state. Informed consent was obtained prior to the procedure. Local anesthetic was given subcutaneously to the left subclavian region with Lidocaine 2%. Access was achieved and a guidewire was advanced into the left subclavian vein. A peel-away sheath was inserted into the left subclavian vein. PPM ventricular lead was inserted / positioned to right ventricular apex. The sheath was then removed. The wire was then removed. PPM ventricular lead testing performed. PPM ventricular lead testing performed. A standard sheath was inserted into the left subclavian vein.. PPM atrial lead was inserted / positioned to the right atrial appendage. The wire was then removed. The sheath was then removed. PPM atrial lead testing performed. PPM ventricular lead testing performed. PPM ventricular lead testing performed. The Atrial lead sutured in place with 2-0 Silk. The Ventricular PM lead sutured in place with 2-0 Silk. Device pocket was irrigated with antibiotic. PPM generator was attached to the lead(s) and inserted into the pocket. PPM generator was then interrogated by the net programmer analyst. Subcutaneous closure was completed with 4-0 Vicryl. Skin closure was completed with 3-0 Vicryl. Instrument, sponge, and needle counts were noted to be normal. The patient tolerated the procedure well. Estimated Blood Loss: 25 ml's IMPLANTED / EX-PLANTED DEVICES EXPLANTED DEVICE(S): PPM Generator - Manager Of Pmo: [employer], Model # ASSURITY MRI , Serial # [id number] IMPLANTED DEVICE(S): PPM Ventricular lead - Manager Of Pmo: [employer], Model # TENDERIL STS , Serial # [id number] PPM Atrial lead - Manager Of Pmo: [employer], Model # TENDRIL STS , Serial # [id number] DEVICE PARAMETERS ATRIAL LEAD PARAMETERS: 10V test, no diaphragmatic capture P wave- 1 (mV) threshold- 2.0 (V) impedence- 380 (OHMS) VENTRICULAR LEAD PARAMETERS: 10V test, no diaphragmatic capture R wave- 7.4 (mV) threshold- 1.5 (V) impedence- 810 (OHMS) DEVICE PARAMETERS: Mode- DDDR Lower rate- 60 Upper rate- 120 CONCLUSIONS / RECOMMENDATIONS Device Conclusions: Successful implantation of a dual chamber pacemaker Device Recommendations: Follow up with Primary Care Physician PROCEDURE MEDICATIONS Fentanyl 50 mcg IV Versed 1 mg IV Oxygen: 2 L/min via nasal cannula Antibiotic given in appropriate timeframe. Ancef 2 Gm IV @ 04/07/2025 15:17:24 Signed By Ernie Powell MD On 04/07/2025 16:45:15 Ernie Powell MD
--- NOTE | 2025-04-07 21:04 | EKG12_ITS ---
Test Reason : chest tightness, SOB Blood Pressure : */* mmHG Vent. Rate : 112 BPM Atrial Rate : 113 BPM P-R Int : * ms QRS Dur : 120 ms QT Int : 350 ms P-R-T Axes : * -80 35 degrees QTcB Int : 477 ms Ventricular-paced rhythm Abnormal ECG When compared with ECG of 06-Apr-2025 07:51, MANUAL COMPARISON REQUIRED DATA IS UNCONFIRMED Confirmed by PAULINO MEZA, EDILIA ([id number]), video news editor ANAY ARANA ([id number]) on 04/11/2025 6:17:30 AM Referred By: Confirmed By: EDILIA BOB MD
--- NOTE | 2025-04-07 22:02 | RAD_ITS ---
PROCEDURE: CHEST 1 VIEW (PORTABLE) 04/07/2025 REASON FOR EXAM: Shortness of breath TECHNIQUE: Frontal view of the chest. COMPARISON: Comparison April 06, 2025 FINDINGS: Hardware: Sternal wires. EKG wires. Dual-chamber pacer, new since April 06. Heart: Normal size. Lungs: Increase in bilateral diffuse airspace opacity and thickened interstitium suggest pulmonary venous congestion, new or worse since yesterday. Bones: Superior subluxation of the left humeral head with deformity of the undersurface of the acromion and [id number] appearance. Other: RAD/Chest 1 View (Portable) IMPRESSION: Congestive heart failure possible superimposed pneumonia. Reading Location: [facility]
[2025-04-07 22:16] LABS: Allen Test Positive; Base Excess -1 mmol/L (-2 to +2); FI02 100.0; PO2 85 mmHG (75-100); SITE L Radial; SO2 96 % (95-99)
[2025-04-07] MEDS: 0.9% Saline Lock 10 ML Syringe IV (22:50)
[2025-04-07 22:55] LABS: Pro- Brain NATRIURETIC PEPTIDE 11652 pg/mL (<=1800)
[2025-04-07 23:20] LABS: Troponin T High Sensitivity 61 ng/L (<=22)
[2025-04-08] VITALS (29 sets, daily range): BP systolic 82–117; BP diastolic 46–68; PULSE 72–107; RESP 12–26; TEMP 36.8–37.5; O2SAT 91–100; BMI 27.1
[2025-04-08] MEDS: Albumin Human 25% (50 mL) 12.5 GM/50 ML IV.SOLN IV (00:45)
[2025-04-08 01:01] LABS: Allen Test Negative; Base Excess -2 mmol/L (-2 to +2); FI02 100.0; PEEP 12; PO2 281 mmHG (75-100); RR 16; SITE L Radial; SO2 100 % (95-99)
[2025-04-08 01:36] LABS: Troponin T High Sens 2 HR 190 ng/L (<=22)
[2025-04-08 03:22] LABS: Troponin T High Sens 4 HR 254 ng/L (<=22)
--- NOTE | 2025-04-08 04:55 | RAD_ITS ---
PROCEDURE: CHEST 3 VIEW 04/08/2025 REASON FOR EXAM: POST PERMANENT ICD/PACEMAKER TECHNIQUE: CHEST 3 VIEW COMPARISON: Chest radiograph on 04/07/2025. FINDINGS: AICD is in good position. Unremarkable median sternotomy wires. Mild decrease in interstitial pulmonary congestion. Mild decrease in pulmonary venous congestion. Unchanged mild bilateral pleural effusions. Unchanged passive atelectatic airspace disease of the lower lobes. Enlarged cardiac silhouette. Normal mediastinum and rita. Normal visualized pulmonary arteries. Atheromatous plaques of the visualized aortic arch and descending thoracic aorta. Diffuse spondylosis of the visualized thoracic spine. Normal visualized ribs, clavicles. Degenerative joint disease. There is no demonstrated abnormality of the visualized soft tissue structures of the upper abdomen. RAD/Chest 3 View IMPRESSION: AICD is in good position. Unremarkable median sternotomy wires. Mild decrease in interstitial pulmonary congestion. Mild decrease in pulmonary venous congestion. Unchanged mild bilateral pleural effusions. Unchanged passive atelectatic airspace disease of the lower lobes. Enlarged cardiac silhouette. Reading [facility]
[2025-04-08] MEDS: Polyethylene Glycol 3350 17 GM PACKET PO (09:40)
--- NOTE | 2025-04-08 09:47 | DCINST_ITS ---
Discharge Instructions DC O2, CPAP, BIPAP needs Home O2 Discharge instructions: No Dressing / Incision Discharge Activity: May Not Drive May shower in (days): 2 Additional Activity Instructions:: May shower or bathe on [day 3]. Do not scrub the incision or soak in the tub. Just wash with soap and let the water run over the incision. Gently pat dry with towel. Medications: Take your pain medication as directed. Refer to your discharge instruction sheet for a list of medications you are to take. Dressing / Incision Call your doctor if your incision/area has: Continuous Slow Oozing, Sudden Increased Bleeding, Increased Pain/ Swelling, Increased Redness, Foul Smelling Discharge and Swelling at the incision site Call your doctor if you observe: Fever of 101 or Higher, Shortness of breath, Dizziness, Fainting spells, Swelling in the ankles, Chest pain, Prolonged hiccupping and Increased palpitations (irregular heartbeat) Suture Line Care: Avoid Pulling/Pushing and Avoid Pinching/Bending Additional Dressing/Incision Instructions:: When dressing is removed, wash and dry incision. Keep covered with a light bandage if it is rubbing against your clothing. Do not cover the incision with an airtight bandage. Change the bandage daily. Do not remove steri strips. The strips will fall off on their own. Follow Up Care Please Follow Up With: Ernie Powell MD When: Pacer follow-up on April 18. The pacemaker clinic will call you for the exact time. Test Results: Test results from this visit will be discussed in further detail at your follow- up appointment, if applicable. Discharge Plan Admission Admit Date/Time: 04/06/25 09:23 Attending Provider: Mata Hatch Primary Care Provider: Valery Quinteros Consulting Providers: Lion Quirzo Discharge Orders/Prescriptions Prescriptions: No Action isosorbide mononitrate 30 MG tablet extended release 24 hr 15 mg PO DAILY gabapentin 400 mg capsule 400 mg PO BID ezetimibe 10 mg tablet 10 mg PO DAILY Eliquis 5 mg tablet 5 mg PO BID Qty: 60 0RF tamsulosin 0.4 mg capsule 0.4 mg PO QHS metformin 500 mg tablet extended release 24 hr 500 mg PO DAILY amiodarone 200 mg tablet 200 mg PO DAILY ascorbic acid (vitamin C) 500 mg capsule 500 mg PO BID bisacodyl 10 mg suppository 10 mg [place] DAILY PRN (Reason: constipation) docusate sodium 100 mg capsule 100 mg PO DAILY ferrous sulfate [FeroSul] 325 mg (65 mg iron) tablet 325 mg PO DAILY magnesium hydroxide [Milk of Magnesia] 400 mg/5 mL suspension 30 ml PO DAILY PRN (Reason: constipation) polyethylene glycol 3350 [ClearLax] 17 gram/dose powder 17 g PO DAILY ondansetron 4 mg tablet,disintegrating 4 mg PO Q6H PRN (Reason: nausea and vomiting) furosemide 40 mg Tablet 40 mg PO DAILY 30 Days Qty: 0 0RF pantoprazole [Protonix] 40 mg tablet,delayed release (DR/EC) 40 mg PO BID 30 Days Qty: 60 0RF simvastatin 20 mg tablet 20 mg PO QHS trazodone 150 mg tablet 75 mg PO QHS metoprolol succinate 50 mg Tablet Extended Release 24 Hr 25 mg PO DAILY Qty: 30 0RF cyclobenzaprine 5 mg tablet 5 mg PO BID mirtazapine 7.5 mg tablet 7.5 mg PO QHS diclofenac sodium 1 % gel 2 ea topical BID Referrals / Follow Up: Valery Quinteros, RECORDS MANAGEMENT COORDINATOR [Primary Care Provider] -
[2025-04-08] MEDS: Metoprolol(XL)Succ 25 MG Tablet PO (11:40)
--- NOTE | 2025-04-08 14:02 | PN.HOSP_ITS ---
Reason for Visit Chief Complaint: Chest heaviness and shortness of breath in the morning today Objective Data Objective Data Vital Signs: Vital Signs Temp Pulse Resp BP Pulse Ox O2 Del Method O2 Flow Rate 98.2 F 88 20 H 106/59 L 100 Nasal Cannula 2 04/08/25 08:00 04/08/25 11:40 04/08/25 11:00 04/08/25 11:40 04/08/25 11:00 04/08/25 11:00 04/08/25 11:00 FiO2 50 04/08/25 03:00 Oxygen Flow Rate (L/min) 2 Oxygen Delivery Method Nasal Cannula Weight: 172 lb 13.478 oz Body Mass Index (BMI) 27.1 Intake & Output: Intake and Output for Last 24 Hours 04/06/25 04/07/25 04/08/25 23:59 23:59 23:59 Intake Total 150 / 150 290 / 290 250 / 250 Output Total 275 / 275 700 / 700 400 / 400 Balance -125 / -125 -410 / -410 -150 / -150 Lab / Micro Data 04/07/25 05:17 04/07/25 05:17 Labs: Laboratory Results - last 24 hr 04/07/25 20:19: Troponin T High Sens 61 H* D, [place] [address] H 04/08/25 00:49: Troponin T Hi Sens 2 Hr 190 H* 04/08/25 02:54: Troponin T Hi Sens 4Hr 254 H* Micro: Microbiology 04/06/25 13:25 Urine, Clean Catch Urine Culture - Preliminary Culture exhibits no growth. ABG Data ABG results: ABG 04/07/25 04/08/25 22:12 00:57 Specimen Type ART ART Sample Site L Radial L Radial pH 7.34 L 7.35 Bicarbonate Actual 24.4 23.6 Total CO2 26 25 Base Excess -1 -2 O2 Saturation 96 100 H O2 % 100.0 100.0 ABG pCO2 45.5 H 42.8 ABG pO2 85 281 H Anthony Test Positive Negative Respiration Rate 16 O2 Delivery Device NRB BiPAP Vent Mode Not entered Not entered Tidal Volume 500.0 POC PEEP 12 Radiography Diagnostic Testing: Radiology Impression Chest X-Ray 04/07/25 22:02 IMPRESSION: Congestive heart failure possible superimposed pneumonia. Reading Location: [facility] Chest X-Ray 04/08/25 04:55 IMPRESSION: AICD is in good position. Unremarkable median sternotomy wires. Mild decrease in interstitial pulmonary congestion. Mild decrease in pulmonary venous congestion. Unchanged mild bilateral pleural effusions. Unchanged passive atelectatic airspace disease of the lower lobes. Enlarged cardiac silhouette. [facility] Rhythm Strip Rhythm Strip: Right bundle branch block, left anterior fascicular block and first-degree Rate: 53 Physical Exam Narrative Seen and examined. Patient had pacemaker yesterday afternoon. In the morning today he got short of breath and felt it was panic attack. No chest pain pressure. school age lead teacher showed sinus rhythm. Pacemaker capture set up threshold of 60 beats minute. In the morning he is on baseline denies any shortness of breath. On 4 L of oxygen. Physical exam General: Alert, Oriented x3, Cooperative HEENT: Atraumatic, PERRLA, EOMI, Normocephalic. Oral: No Gingival or Mucosal Lesions/ Ulcerations Neck: Oral mucosa dry supple, No JVD, Negative Carotid Bruits Chest wall/Lungs: Air entry diminished in bilateral lung bases. No crepitation/rhonchi Cardiovascular: sinus rhythm systolic murmur Abdomen: Bowel Sounds Present, Soft, Non Tender, Non-Distended : No dysuria. No renal angle tenderness. No suprapubic tenderness. Extremities: No edema, Capillary Refill Less than 3 Seconds Skin: Right lower leg erythematous mild swelling with superficial erosion, chronic, looks much improved compared to yesterday Musculoskeletal: No Tenderness to Palpation of Joints or Extremities Neurological: Cranial nerves II-XII grossly intact, DTR 2+/4. No acute focal neurological deficit. Psych/Mental Status: Flat affect Assessment & Plan Assessment/Plan (1) Sinus bradycardia: (2) Acidosis, lactic: PLAN: Plan This is a 84-year-old gentleman being admitted for evaluation of acute onset of shortness of breath and chest heaviness with severe bradycardia and hypotension. 1. 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 ED EKG shows sinus bradycardia 51 beats minute, LVH, LAD, first-degree AV block. On the ship engines operating engineer heart rate is improved to 55 bpm, BP 118 systolic. Previous ECG in November 2024 shows sinus rhythm 67 beats minute, bifascicular block. If heart rate slows down further or hypotensive and will need dobutamine drip. Patient is being admitted in ICU. Uat Tester consulted. For now does not meet criteria for complete heart block. 04/07: Patient had about 30 seconds complete pause and then next 2 beats were also short QRS complexes with prolonged R-R interval and then normal rhythm. Plan is pacemaker today. 04/08: It seems patient got short of breath panic attack and agitation. Was given hydroxyzine and Lasix 44 IV. Chest x-ray was done which shows left lung base atelectasis and cardiomegaly. Discussed with supply officer. Advised transfer to PCU and resume home medication metoprolol succinate and amiodarone. Resume furosemide home medication. Continue incentive spirometry and PEP for 1 week 2. Paroxysmal A-fib, current sinus bradycardia with lactic acidosis: Lactic acid most likely due to poor perfusion. Chest x-ray individually reviewed shows cardiomegaly with vascular congestion and prior changes of CABG. Initial BP was 116/62 dropped 107/49 probably after Lasix 60 mg IV. Clinically does not look like septic. Hold metoprolol succinate and amiodarone. Hold Eliquis in anticipation of possible requirement of pacemaker. 2D echo shows EF 55%, moderate concentric LVH, normal LV size and RV size. Stage II diastolic dysfunction. Mild MR. Mild AI. RVSP 48 mmHg. Mild TR. IVC mildly dilated. 3. CAD with CABG and stent. Chest pressure: Patient had CABG about 40 years ago and last stent about 10 years ago. Continue statin and nitrate. Serial troponins 46, 43 and 44 plan intermediate and not indicative of acute infarct. Patient has last stress test done in November 2024 reported normal perfusion scan. His bradycardia with decreased perfusion might be result of chest pressure. Uat Tester is consulted. No acute EKGs to suggest ischemia 4. Chronic right lower extremity swelling erosion probably is localized cellulitis: Patient states it is there for last couple months. IV ceftriaxone and doxycycline ordered. 5. 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 ABG 7.36/39/190/23. ABGs near normal. Repeat lactic acid came normal. Avoid nephrotoxic medications. Chest ray showed vascular congestion so not candidate for IV fluid. 6. Other comorbidities include hypertension, dyslipidemia: As mentioned above. Lipid profile tomorrow a.m. Statin continued. Blood pressure on lower side. 7. GERD and former tobacco use: On PPI. DVT prophylaxis: Hold Eliquis. Lovenox 30 mL subcu daily ordered for DVT prophylaxis. Microbiology Past 72 Hours 04/06/25 13:25 Urine, Clean Catch Urine Culture - Preliminary Culture exhibits no growth. Laboratory Results 04/07/25 20:19: Troponin T High Sens 61 H* D, [place] [address] H 04/07/25 22:12: Specimen Type ART, Sample Site L Radial, pH 7.34 L, Bicarbonate Actual 24.4, Total CO2 26, Base Excess -1, O2 Saturation 96, O2 % 100.0, ABG pCO2 45.5 H, ABG pO2 85, Anthony Test Positive, O2 Delivery Device NRB, Vent Mode Not entered 04/08/25 00:49: Troponin T Hi Sens 2 Hr 190 H* 04/08/25 00:57: Specimen Type ART, Sample Site L Radial, pH 7.35, Bicarbonate Actual 23.6, Total CO2 25, Base Excess -2, O2 Saturation 100 H, O2 % 100.0, ABG pCO2 42.8, ABG pO2 281 H, Anthony Test Negative, Respiration Rate 16, O2 Delivery Device BiPAP, Vent Mode Not entered, Tidal Volume 500.0, POC PEEP 12 04/08/25 02:54: Troponin T Hi Sens 4Hr 254 H* Living will/advanced directive/end of life care: Patient does not have living will or advanced directive. After discussion of benefits/risks procedures involved with full code, DNR CC arrest and DNR CC, the patient opted for full code. Patient does want artificial life support including intubation, tube feed, ventilator and/chest compression, central venous catheter, vasopressor and DC shock if needed Total time spent in [id number] encounter in discussion of advanced directive 17 minutes. 2D echo 04/06/2025 Interpretation Summary Normal LV size. Moderate concentric left ventricular hypertrophy. The estimated ejection fraction is 55 %. Normal RV size. Normal systolic function. Stage II diastolic dysfunction There is moderate biatrial dilatation. Mild (1+) mitral valve insufficiency with mild diffuse mitral valve thickening The pulmonary artery pressure is estimated only due to the absence of clear TR signal however IVC is mildly dilated Right ventricular systolic pressure estimated to be 48 mmHg. Mild (1+) aortic valve insufficiency. Charges/Coding Visit Charges Inpatient E&M: 77258 Subs Hosp L3
--- NOTE | 2025-04-08 14:49 | CASEMGMT ---
Social Work SW placed call to pt 's son Rich and discussed pt's concerns with pt's home alone. Rich has been in contact with his mother's friend Sepideh Flannery who is checking on pt's and making sure she gets her medication. Rich plans to come from out of town tomorrow to check on pt and pt's . Pt updated and appreciative of information. STEPHANIE Schrader
[2025-04-09] VITALS (8 sets, daily range): BP systolic 104–130; BP diastolic 53–79; PULSE 71–83; RESP 18; TEMP 36.7–36.9; O2SAT 84–98; BMI 28.2
[2025-04-09 06:07] LABS: Hematocrit 31.1 % (40-54); Hemoglobin 9.7 g/dL (13.0-16.5); Immature Granulocytes Count 0.020 X10^3/uL (0.0-0.0); Mean Corp Hgb Conc 31.2 g/dL (32-36); Mean Corpuscular Volume 91.7 fL (80-94); NRBC Flagged by Analyzer 0 % (0-5); POSITIVE COUNT YES; Platelet Count 67 K/mm3 (150-450); RBC Distribution Width CV 14.0 % (11.6-14.6); RBC Distribution Width SD 47.2 fl (35.1-43.9); Red Blood Count 3.39 M/mm3 (4.6-6.2); White Blood Count 5.7 K/mm3 (4.4-11.0)
[2025-04-09 06:44] LABS: Anion Gap 12 (5-15); BUN 25 mg/dL (4-19); BUN/Creat Ratio 15.8 RATIO (10-20); Calcium,Total 8.9 mg/dL (7.6-11.0); Carbon Dioxide 23.6 mmol/L (21.0-32.0); Chloride 104 mmol/L (98-108); Estimated Creatinine Clearance 34.76 ml/min (50-250); Glucose 104 mg/dL (70-99); Potassium 4.2 mmol/L (3.3-5.1)
--- NOTE | 2025-04-09 07:25 | DCINST_ITS ---
Discharge Instructions DC O2, CPAP, BIPAP needs Home O2 Discharge instructions: No Dressing / Incision Discharge Activity: Return to Normal Activity May shower in (days): 2 Weight Bearing Status: Weight bearing as tolerated Additional Activity Instructions:: May shower or bathe on [day 3]. Do not scrub the incision or soak in the tub. Just wash with soap and let the water run over the incision. Gently pat dry with towel. Medications: Take your pain medication as directed. Refer to your discharge instruction sheet for a list of medications you are to take. Dressing / Incision Call your doctor if your incision/area has: Continuous Slow Oozing, Sudden Increased Bleeding, Increased Pain/ Swelling, Increased Redness, Foul Smelling Discharge and Swelling at the incision site Call your doctor if you observe: Fever of 101 or Higher, Shortness of breath, Dizziness, Fainting spells, Swelling in the ankles, Chest pain, Prolonged hiccupping and Increased palpitations (irregular heartbeat) Suture Line Care: Avoid Pulling/Pushing and Avoid Pinching/Bending Additional Dressing/Incision Instructions:: When dressing is removed, wash and dry incision. Keep covered with a light bandage if it is rubbing against your clothing. Do not cover the incision with an airtight bandage. Change the bandage daily. Do not remove steri strips. The strips will fall off on their own. Follow Up Care Please Follow Up With: Ernie Powell MD When: IN 2 WEEKS Test Results: Test results from this visit will be discussed in further detail at your follow- up appointment, if applicable. Discharge Plan Admission Admit Date/Time: 04/06/25 09:23 Primary Reason for Your Visit: Sinus bradycardia, sick sinus syndrome Attending Provider: Mata Hatch Primary Care Provider: Valery Quinteros Consulting Providers: Lion Quiroz Discharge Orders/Prescriptions Prescriptions: Continued isosorbide mononitrate 30 MG tablet extended release 24 hr 15 mg PO DAILY gabapentin 400 mg capsule 400 mg PO BID ezetimibe 10 mg tablet 10 mg PO DAILY tamsulosin 0.4 mg capsule 0.4 mg PO QHS metformin 500 mg tablet extended release 24 hr 500 mg PO DAILY amiodarone 200 mg tablet 200 mg PO DAILY ascorbic acid (vitamin C) 500 mg capsule 500 mg PO BID bisacodyl 10 mg suppository [address] DAILY PRN (Reason: constipation) docusate sodium 100 mg capsule 100 mg PO DAILY ferrous sulfate [FeroSul] 325 mg (65 mg iron) tablet 325 mg PO DAILY magnesium hydroxide [Milk of Magnesia] 400 mg/5 mL suspension 30 ml PO DAILY PRN (Reason: constipation) polyethylene glycol 3350 [ClearLax] 17 gram/dose powder 17 g PO DAILY ondansetron 4 mg tablet,disintegrating 4 mg PO Q6H PRN (Reason: nausea and vomiting) furosemide 40 mg Tablet 40 mg PO DAILY 30 Days Qty: 0 0RF pantoprazole [Protonix] 40 mg tablet,delayed release (DR/EC) 40 mg PO BID 30 Days Qty: 60 0RF simvastatin 20 mg tablet 20 mg PO QHS metoprolol succinate 50 mg Tablet Extended Release 24 Hr 25 mg PO DAILY Qty: 30 0RF cyclobenzaprine 5 mg tablet 5 mg PO BID mirtazapine 7.5 mg tablet 7.5 mg PO QHS diclofenac sodium 1 % gel 2 ea topical BID Changed Eliquis 5 mg tablet 2.5 mg PO BID Qty: 60 0RF Held trazodone 150 mg tablet 75 mg PO QHS Hold Instructions: Hold it. As patient is on 2 atypical antipsychotic medications, mirtazapine and trazodone. Discussed with PCP, discontinue it Referrals / Follow Up: Valery Quinteros CNS [Primary Care Provider] - Ernie Powell MD [Med Staff - Active Staff] - Within 1 Month Paris Baltazar PA [Med Staff - Adv Practice Prof] - Within 2 Weeks Disposition Disposition (needs filled in before D/C Order can be placed): Home, Self Care
--- NOTE | 2025-04-09 07:34 | PCM.DC.SUM ---
Providers Date of Admission: 04/06/25 Date of Discharge: 04/09/25 Primary Care Physician: Valery Quinteros, FOIL WRAPPER Consultations 04/06/25 11:25 Consult: Cardiology Routine Consulting Provider: Lion Quiroz Reason for Consult: SEVERE bradycardia EMERGENT Consult: No MD Notified: Yes Date Notified: 04/06/25 Time Notified: 09:28 Method of Notification: Verbal Reason For Visit: HEART BLOCK, BIFASCICULAR, HIGH LA Diagnosis Discharge Diagnosis (1) Sinus bradycardia: Status: Acute Code(s): R00.1 - Bradycardia, unspecified (2) Acidosis, lactic: Status: Acute Code(s): E87.20 - Acidosis, unspecified Plan This is a 84-year-old gentleman being admitted for evaluation of acute onset of shortness of breath and chest heaviness with severe bradycardia and hypotension. 1. 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 ED EKG shows sinus bradycardia 51 beats minute, LVH, LAD, first-degree AV block. On the code machine operator heart rate is improved to 55 bpm, BP 118 systolic. Previous ECG in November 2024 shows sinus rhythm 67 beats minute, bifascicular block. If heart rate slows down further or hypotensive and will need dobutamine drip. Patient is being admitted in ICU. Radio Interference Expert consulted. For now does not meet criteria for complete heart block. 04/07: Patient had about 30 seconds complete pause and then next 2 beats were also short QRS complexes with prolonged R-R interval and then normal rhythm. Plan is pacemaker today. 04/08: It seems patient got short of breath panic attack and agitation. Was given hydroxyzine and Lasix 44 IV. Chest x-ray was done which shows left lung base atelectasis and cardiomegaly. Discussed with certified coding specialist. Advised transfer to PCU and resume home medication metoprolol succinate and amiodarone. Resume furosemide home medication. Continue incentive spirometry and PEP for 1 week. 04/09: Patient is doing well. Uneventful night.pulse ox gentry on 1 L of oxygen on room air. Home oxygen qualification test ordered. roll carrier shows heart rate in 70s sinus rhythm. 2. Paroxysmal A-fib, current sinus bradycardia with lactic acidosis: Lactic acid most likely due to poor perfusion. Chest x-ray individually reviewed shows cardiomegaly with vascular congestion and prior changes of CABG. Initial BP was 116/62 dropped 107/49 probably after Lasix 60 mg IV. Clinically does not look like septic. Hold metoprolol succinate and amiodarone. Hold Eliquis in anticipation of possible requirement of pacemaker. 2D echo shows EF 55%, moderate concentric LVH, normal LV size and RV size. Stage II diastolic dysfunction. Mild MR. Mild AI. RVSP 48 mmHg. Mild TR. IVC mildly dilated. 04/09 with the creatinine more than 1.5 and age above 80, Eliquis decreased to 2.5 mg twice daily. Continue home dose of metoprolol succinate, amiodarone and furosemide. 3. CAD with CABG and stent. Chest pressure: Patient had CABG about 40 years ago and last stent about 10 years ago. Continue statin and nitrate. Serial troponins 46, 43 and 44 plan intermediate and not indicative of acute infarct. Patient has last stress test done in November 2024 reported normal perfusion scan. His bradycardia with decreased perfusion might be result of chest pressure. Radio Interference Expert is consulted. No acute EKGs to suggest ischemia 4. Chronic right lower extremity swelling erosion probably is localized cellulitis: Patient states it is there for last couple months. IV ceftriaxone and doxycycline ordered. 04/09: Superficial erosion looks much better. Cellulitis resolved. Patient had 3 days of IV antibiotic. Discontinue antibiotics 5. 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 ABG 7.36/39/190/23. ABGs near normal. Repeat lactic acid came normal. Avoid nephrotoxic medications. Chest ray showed vascular congestion so not candidate for IV fluid. 04/09: Creatinine improved to 1.5. Patient started back on furosemide. 6. Other comorbidities include hypertension, dyslipidemia: As mentioned above. Lipid profile tomorrow a.m. Statin continued. Blood pressure on lower side. 7. GERD and former tobacco use: On PPI. DVT prophylaxis: Hold Eliquis. Lovenox 30 mL subcu daily ordered for DVT prophylaxis. Discharge medication reconciliation done. Discharge follow-up instructions completed. Discharge process discussed with the patient and all questions were answered to patient's satisfaction. Follow with PCP in 1 to 2 weeks Total time spent, exact 35 minutes on discharge meds reconciliation, examination, coordination of care with nurses and ancillary staff, review of imaging and blood test and discussion with the patient on follow-up instructions. Microbiology Past 72 Hours 04/06/25 13:25 Urine, Clean Catch Urine Culture - Preliminary Culture exhibits no growth. Laboratory Results 04/07/25 20:19: Troponin T High Sens 61 H* D, [place] [address] H 04/07/25 22:12: Specimen Type ART, Sample Site L Radial, pH 7.34 L, Bicarbonate Actual 24.4, Total CO2 26, Base Excess -1, O2 Saturation 96, O2 % 100.0, ABG pCO2 45.5 H, ABG pO2 85, Anthony Test Positive, O2 Delivery Device NRB, Vent Mode Not entered 04/08/25 00:49: Troponin T Hi Sens 2 Hr 190 H* 04/08/25 00:57: Specimen Type ART, Sample Site L Radial, pH 7.35, Bicarbonate Actual 23.6, Total CO2 25, Base Excess -2, O2 Saturation 100 H, O2 % 100.0, ABG pCO2 42.8, ABG pO2 281 H, Anthony Test Negative, Respiration Rate 16, O2 Delivery Device BiPAP, Vent Mode Not entered, Tidal Volume 500.0, POC PEEP 12 04/08/25 02:54: Troponin T Hi Sens 4Hr 254 H* Living will/advanced directive/end of life care: Patient does not have living will or advanced directive. After discussion of benefits/risks procedures involved with full code, DNR CC arrest and DNR CC, the patient opted for full code. Patient does want artificial life support including intubation, tube feed, ventilator and/chest compression, central venous catheter, vasopressor and DC shock if needed Total time spent in [id number] encounter in discussion of advanced directive 17 minutes. 2D echo 04/06/2025 Interpretation Summary Normal LV size. Moderate concentric left ventricular hypertrophy. The estimated ejection fraction is 55 %. Normal RV size. Normal systolic function. Stage II diastolic dysfunction There is moderate biatrial dilatation. Mild (1+) mitral valve insufficiency with mild diffuse mitral valve thickening The pulmonary artery pressure is estimated only due to the absence of clear TR signal however IVC is mildly dilated Right ventricular systolic pressure estimated to be 48 mmHg. Mild (1+) aortic valve insufficiency. Medications at Discharge Home Medications isosorbide mononitrate 30 mg tablet,extended release 24 hr 15 mg PO DAILY HEART 08/23/19 gabapentin 400 mg capsule 400 mg PO BID NERVE PAIN 06/25/21 ezetimibe 10 mg tablet 10 mg PO DAILY CHOLESTROL 09/24/23 amiodarone 200 mg tablet 200 mg PO DAILY AFIB 11/07/24 ascorbic acid (vitamin C) 500 mg capsule 500 mg PO BID SUPPLEMENT 11/07/24 bisacodyl 10 mg rectal suppository 10 mg KS DAILY PRN constipation 11/07/24 docusate sodium 100 mg capsule 100 mg PO DAILY CONSTIPATION 11/07/24 ferrous sulfate 325 mg (65 mg iron) tablet (FeroSul) 325 mg PO DAILY ANEMIA 11/07/24 magnesium hydroxide 400 mg/5 mL oral suspension (Milk of Magnesia) 30 ml PO DAILY PRN constipation 11/07/24 metformin 500 mg tablet,extended release 24 hr 500 mg PO DAILY DIABETES 11/07/24 ondansetron 4 mg disintegrating tablet 4 mg PO Q6H PRN nausea and vomiting 11/07/24 polyethylene glycol 3350 17 gram/dose oral powder (ClearLax) 17 g PO DAILY constipation 11/07/24 tamsulosin 0.4 mg capsule 0.4 mg PO QHS bladder 11/07/24 furosemide 40 mg tablet 40 mg PO DAILY EDEMA 30 days #0 tabs 11/10/24 pantoprazole 40 mg tablet,delayed release (Protonix) 40 mg PO BID HEARTBURN 30 days #60 tabs 11/10/24 simvastatin 20 mg tablet 20 mg PO QHS cholesterol 11/25/24 trazodone 150 mg tablet 75 mg PO QHS INSOMNIA 11/25/24 Held on 04/09/25. Instructions: Hold it. As patient is on 2 atypical antipsychotic medications, mirtazapine and trazodone. Discussed with PCP, discontinue it metoprolol succinate 50 mg tablet,extended release 24 hr 25 mg (1/2 x 50 mg) PO DAILY ANGINA #30 tabs 11/28/24 cyclobenzaprine 5 mg tablet 5 mg PO BID back pain 04/06/25 diclofenac sodium 1 % topical gel 2 ea topical BID back pain 04/06/25 mirtazapine 7.5 mg tablet 7.5 mg PO QHS mood 04/06/25 apixaban 5 mg tablet (Eliquis) 2.5 mg (1/2 x 5 mg) PO BID CEREBRAL INFARCTION #60 tabs 04/09/25 Physical Exam Narrative Seen and examined. Patient had pacemaker on 04/07/2025 afternoon. Uneventful night. Patient woke up at 4 AM for voiding urine. On 3 L of oxygen Physical exam General: Alert, Oriented x3, Cooperative HEENT: Atraumatic, PERRLA, EOMI, Normocephalic. Oral: No Gingival or Mucosal Lesions/ Ulcerations Neck: Oral mucosa dry supple, No JVD, Negative Carotid Bruits Chest wall/Lungs: Air entry diminished in bilateral lung bases. No crepitation/rhonchi Cardiovascular: sinus rhythm systolic murmur Abdomen: Bowel Sounds Present, Soft, Non Tender, Non-Distended : No dysuria. No renal angle tenderness. No suprapubic tenderness. Extremities: No edema, Capillary Refill Less than 3 Seconds Skin: Right lower leg erythematous mild swelling with superficial erosion, chronic, looks much improved compared to yesterday Musculoskeletal: No Tenderness to Palpation of Joints or Extremities Neurological: Cranial nerves II-XII grossly intact, DTR 2+/4. No acute focal neurological deficit. Psych/Mental Status: Flat affect Weight / BMI Weight Weight: 179 lb 14.355 oz Body Mass Index (BMI) 28.2 ABG / Lab / Microbiology Data 04/09/25 05:20 04/09/25 05:20 Laboratory: Laboratory Results - last 24 hr 04/09/25 05:20: WBC 5.7, RBC 3.39 L, Hgb 9.7 L, Hct 31.1 L, MCV 91.7, MCH 28.6, MCHC 31.2 L, RDW Std Deviation 47.2 H, RDW Coeff of Jaqueline 14.0, Plt Count 67 L, MPV TNP, Immature Gran % (Auto) 0.400, Neut % (Auto) 69.3, Lymph % (Auto) 22.2, [place] % (Auto) 6.9, Eos % (Auto) 0.7, Baso % (Auto) 0.5, Absolute Neuts (auto) 3.9, Absolute Lymphs (auto) 1.26, Nucleated RBC % 0, Sodium 139, Potassium 4.2, Chloride 104, Carbon Dioxide 23.6, Anion Gap 12, BUN 25 H, Creatinine 1.56 H, Estim Creat Clear Calc 34.76 L, Est GFR (MDRD) Non-Af 43 L, BUN/Creatinine Ratio 15.8, Glucose 104 H, Calcium 8.9 Microbiology: Microbiology 04/06/25 13:25 Urine, Clean Catch Urine Culture - Final Culture exhibits no growth. D/C Instructions May shower in (days): 2 Weight Bearing Status: Weight bearing as tolerated Additional Activity Instructions: May shower or bathe on [day 3]. Do not scrub the incision or soak in the tub. Just wash with soap and let the water run over the incision. Gently pat dry with towel. Medications: Take your pain medication as directed. Refer to your discharge instruction sheet for a list of medications you are to take. Call your doctor if your incision/area has: Continuous Slow Oozing, Sudden Increased Bleeding, Increased Pain/ Swelling, Increased Redness, Foul Smelling Discharge and Swelling at the incision site Call your doctor if you observe: Fever of 101 or Higher, Shortness of breath, Dizziness, Fainting spells, Swelling in the ankles, Chest pain, Prolonged hiccupping and Increased palpitations (irregular heartbeat) Suture Line Care: Avoid Pulling/Pushing and Avoid Pinching/Bending Additional Dressing/Incision Instructions: When dressing is removed, wash and dry incision. Keep covered with a light bandage if it is rubbing against your clothing. Do not cover the incision with an airtight bandage. Change the bandage daily. Do not remove steri strips. The strips will fall off on their own. DC O2, CPAP, BIPAP Needs Home O2 Discharge instructions: No Please Follow Up With: Ernie Powell MD When: IN 2 WEEKS Meaningful Use Info Meaningful Use Meaningful Use Diagnoses (Choose all that apply): None applicable Discharge Plan Admission Admit Date/Time: 04/06/25 09:23 Primary Reason for Your Visit: Sinus bradycardia, sick sinus syndrome Attending Provider: Mata Hatch Primary Care Provider: Valery Quinteros Consulting Providers: Lion Quiroz Discharge Orders/Prescriptions Prescriptions: Continued isosorbide mononitrate 30 MG tablet extended release 24 hr 15 mg PO DAILY gabapentin 400 mg capsule 400 mg PO BID ezetimibe 10 mg tablet 10 mg PO DAILY tamsulosin 0.4 mg capsule 0.4 mg PO QHS metformin 500 mg tablet extended release 24 hr 500 mg PO DAILY amiodarone 200 mg tablet 200 mg PO DAILY ascorbic acid (vitamin C) 500 mg capsule 500 mg PO BID bisacodyl 10 mg suppository 10 mg KS DAILY PRN (Reason: constipation) docusate sodium 100 mg capsule 100 mg PO DAILY ferrous sulfate [FeroSul] 325 mg (65 mg iron) tablet 325 mg PO DAILY magnesium hydroxide [Milk of Magnesia] 400 mg/5 mL suspension 30 ml PO DAILY PRN (Reason: constipation) polyethylene glycol 3350 [ClearLax] 17 gram/dose powder 17 g PO DAILY ondansetron 4 mg tablet,disintegrating 4 mg PO Q6H PRN (Reason: nausea and vomiting) furosemide 40 mg Tablet 40 mg PO DAILY 30 Days Qty: 0 0RF pantoprazole [Protonix] 40 mg tablet,delayed release (DR/EC) 40 mg PO BID 30 Days Qty: 60 0RF simvastatin 20 mg tablet 20 mg PO QHS metoprolol succinate 50 mg Tablet Extended Release 24 Hr 25 mg PO DAILY Qty: 30 0RF cyclobenzaprine 5 mg tablet 5 mg PO BID mirtazapine 7.5 mg tablet 7.5 mg PO QHS diclofenac sodium 1 % gel 2 ea topical BID Changed Eliquis 5 mg tablet 2.5 mg PO BID Qty: 60 0RF Held trazodone 150 mg tablet 75 mg PO QHS Hold Instructions: Hold it. As patient is on 2 atypical antipsychotic medications, mirtazapine and trazodone. Discussed with PCP, discontinue it Referrals / Follow Up: Valery Quinteros CNS [Primary Care Provider] - Ernie Powell MD [Med Staff - Active Staff] - Within 1 Month Paris Baltazar PA [Med Staff - Adv Practice Prof] - Within 2 Weeks Disposition Disposition (needs filled in before D/C Order can be placed): Home, Self Care Charges/Coding Visit Charges Inpatient E&M: 17747 Disch Hosp >30min
[2025-04-09] MEDS: 0.9% Saline Lock 10 ML Syringe IV (08:21)
[2025-04-09] MEDS: Metoprolol(XL)Succ 25 MG Tablet PO (08:24)
--- NOTE | 2025-04-09 10:20 | NURSING ---
[facility] notified of need for home oxygen set up.
--- NOTE | 2025-04-09 11:03 | NURSING ---
Oxygen prescription faxed to [facility] – [place].
== END 2025-04-09 14:29 | disposition home or self-care (01) | DRG 243 ==
LOC: ED 09:30 → ICU 10:31 → PCU 04-08 12:26
PROVIDERS: Internal Medicine; Internal Medicine Cardiovascular Disease; Admitting Provider Internal Medicine; Emergency Provider Emergency Medicine; PCP Clinical Nurse Specialist Adult Health; Visit Provider Internal Medicine
DX: I45.2 Bifascicular block (principal); N17.9 Acute kidney failure, unspecified; D61.818 Other pancytopenia; D68.32 Hemorrhagic disorder due to extrinsic circulating anticoagulants; E87.20 Acidosis, unspecified; N18.32 Chronic kidney disease, stage 3b; I73.9 Peripheral vascular disease, unspecified; I08.1 Rheumatic disorders of both mitral and tricuspid valves; I12.9 Hypertensive chronic kidney disease with stage 1 through stage 4 chronic kidney disease, or unspecified chronic kidney disease; I44.2 Atrioventricular block, complete; S81.801A Unspecified open wound, right lower leg, initial encounter; I48.0 Paroxysmal atrial fibrillation; I25.10 Atherosclerotic heart disease of native coronary artery without angina pectoris; E78.5 Hyperlipidemia, unspecified; K21.9 Gastro-esophageal reflux disease without esophagitis; I49.5 Sick sinus syndrome; D69.59 Other secondary thrombocytopenia; D72.819 Decreased white blood cell count, unspecified; I25.2 Old myocardial infarction; Z79.01 Long term (current) use of anticoagulants; Z87.891 Personal history of nicotine dependence; Z95.5 Presence of coronary angioplasty implant and graft; Z79.899 Other long term (current) drug therapy; R07.89 Other chest pain; Z95.0 Presence of cardiac pacemaker; T45.515A Adverse effect of anticoagulants, initial encounter; Z95.1 Presence of aortocoronary bypass graft; Z82.49 Family history of ischemic heart disease and other diseases of the circulatory system; X58.XXXA Exposure to other specified factors, initial encounter
CPT/HCPCS: 33208; 36415; 36600; 71045; 71047; 80048; 80053; 80299; 81001; 82803; 83605; 83735; 83880; 84100; 84439; 84443; 84484; 85025; 85610; 87086; 92526; 92610; 93005; 93306; 93970; 94002; 94003; 94668; 94762; 97116; 97161; 97165; 97530; 99152; 99153; 99285; P9047; Q9957; A4216; C1894; J1938